=== PATIENT | male | born 1955 | race Caucasian/White ===

== ENCOUNTER 2023-03-06 16:51 | Emergency (ER) | payer OTHER, SELFPAY ==
--- NOTE | ~2023-03-06 | XR_ITS ---
EXAMINATION: XR chest 2V DATE: 03/06/2023 17:20 INDICATION: Dyspnea when trying to speak. TECHNIQUE: PA and lateral views of the chest were obtained. COMPARISON: None FINDINGS: The lungs are clear with no focal airspace opacities, pulmonary edema, pleural effusion or pneumothor ax. The cardiomediastinal silhouette is normal. Multiple compression fractures in the mid to lower th oracic and upper lumbar spine. IMPRESSION: 1. No acute cardiopulmonary disease. Reviewed, dictated and finalized at location A.
[2023-03-06 16:58] VITALS: BP 166/100; PULSE 64; RESP 20; TEMP 36.8; O2SAT 100
--- NOTE | 2023-03-06 17:11 | ECG_ITS ---
Measurements Intervals [place] Rate: 52 P: -19 PA: 174 QRS: -30 QRSD: 108 T: -7 QT: 460 QTc: 431 Interpretive Statements SINUS BRADYCARDIA POSSIBLE LEFT ATRIAL ENLARGEMENT [-0.1mV P WAVE IN V1/V2] BORDERLINE LEFT AXIS DEVIATION [QRS AXIS < -20] POSSIBLE LEFT VENTRICULAR HYPERTROPHY [VOLTAGE CRITERIA PLUS LAE OR QRS WIDENING] NO PREVIOUS ECG AVAILABLE FOR COMPARISON Electronically Signed On 03-06-2023 19:25:14 CDT by Viola Jessica M.D.
[2023-03-06 18:15] LABS: Basophils Absolute Auto 0.1 K/mm3 (0.0-0.1); Basophils Percent Auto 0.9 % (0.2-1.2); Eosinophils Absolute Auto 0.2 K/mm3 (0-0.3); Eosinophils Percent Auto 1.6 % (0-4.4); Hematocrit 48.6 % (42.0-52.0); Hemoglobin 15.8 g/dL (14.0-18.0); Immature Granulocyte Absolute 0.03 K/mm3 (0.00-0.031); Immature Granulocyte Percent A 0.3 % (0-0.5); Lymphocytes Absolute Auto 2.56 K/mm3 (0.9-3.2); Lymphocytes Percent Auto 26.1 % (18.3-44.2); Mean Corpuscular HGB Conc 32.5 g/dl (32-36); Mean Corpuscular Hemoglobin 29.6 pg (26-34); Mean Corpuscular Volume 91.2 fl (80-100); Mean Platelet Volume 8.9 fl (7.4-10.4); Monocytes Absolute Auto 0.6 K/mm3 (0.1-0.6); Monocytes Percent Auto 6.2 % (2.6-8.5); Neutrophils Absolute Auto 6.3 K/mm3 (1.3-6.7); Neutrophils Percent Auto 64.9 % (45.5-73.1); Platelet Count Result 389 k/mm3 (150-375); Red Blood Count 5.33 M/mm3 (4.6-6.20); Red Cell Distribution Width 13.2 % (11.5-14.5); White Blood Count 9.8 K/mm3 (4.5-10.0)
[2023-03-06 18:37] LABS: Alanine Aminotransferase 18 U/L (6-50); Albumin Level 4.3 g/dL (3.5-5.1); Alkaline Phosphatase 112 U/L (38-126); Anion Gap 4 mmol/L (8-16); Aspartate Amino Transferase 25 U/L (17-59); Bilirubin,Total 0.4 mg/dL (0.2-1.3); Blood Urea Nitrogen 10 mg/dL (9-20); Carbon Dioxide 32 mmol/L (22-30); Chloride 101 mmol/L (98-107); Estimated CRCL calculation 61 ml/min; Estimated Glomerular Filt Rate > 60; Glucose 98 mg/dL (65-110); Potassium 4.1 mmol/L (3.4-5.0); Sodium 137 mmol/L (137-145)
[2023-03-06 19:00] VITALS: BP 182/108; PULSE 54; RESP 48; O2SAT 100
[2023-03-06] MEDS: KETOROLAC 15 MG/ML VIAL (*BKC) IV PUSH (19:42)
[2023-03-06] MEDS: SODIUM CHLORIDE 0.9% IV 1,000 ML 999 ML IV CONT (19:42)
[2023-03-06] MEDS: PENICILLIN V POTASSIUM 250 MG TABLET 500 MG PO (19:43)
[2023-03-06] MEDS: LEVALBUTEROL NEB 1.25 MG/3 ML INHALATION (19:45)
[2023-03-06] MEDS: IPRATROPIUM BR 0.02% INH SOLN 0.5 MG/2.5 ML VIAL INHALATION (19:45)
[2023-03-06 19:46] VITALS: PULSE 52; RESP 20
--- NOTE | 2023-03-06 19:46 | ED.SOB ---
HPI - SOB/Dyspnea General Chief Complaint: Shortness of Breath/Dyspnea Stated Complaint: SOB/vomiting/back pain/toothache/headache/vision Time Seen by Provider: 03/06/23 17:24 History of Present Illness HPI Narrative: Patient is a 67-year-old male presenting with multiple complaints. Patient states that the main reason he is here today is because he is concerned about a dental infection. States that he has many bad teeth and he has not seen a dentist in many years. States that he is concerned that one of the teeth on the right side is infected. States that he has been having some right ear pain that he thinks is related to this. He states that he has had intermittent headaches for about 5 years. States that he has also had a hoarse voice for about 5 years. States that he has never had these things worked up. They have not changed recently but patient states that he grew tired of the headaches. States that the only medication he ever uses is [place]. He has not tried Tylenol or ibuprofen. He denies numbness or weakness or speech changes. He denies chest pain. He states that sometimes he does feel short of breath but states that he has been smoking heavily since he was 12. Patient states that sometimes he has a cough. He also complains of intermittent abdominal pain. He denies fevers, lightheadedness, palpitations, vomiting, diarrhea, dysuria, leg swelling. Related Data Allergies Allergy/AdvReac Type Severity Reaction Status Date / Time No Known Allergies Allergy Verified 03/06/23 16:52 Review of Systems Review of Systems: All systems reviewed & are unremarkable except as noted in HPI and below Exam Narrative: GENERAL: Frail-appearing elderly male sitting in bed in no acute distress HEAD: Normocephalic, atraumatic. EYES: PERRLA and EOMI. ENT: Nares clear, no rhinorrhea or epistaxis. Mucous membranes moist. Very poor dentition throughout with multiple broken teeth in various stages of decay, some tenderness with palpation along the right lower gumline, no fluctuance or obvious abscess; bilateral tympanic membranes appear normal NECK: Supple. CHEST: Diminished breath sounds bilaterally with scattered wheezing, no respiratory distress HEART: Regular rate and rhythm. No murmur heard. Normal peripheral pulses. ABDOMEN: Soft, nontender, nondistended EXTREMITIES: Normal range of motion. No edema. SKIN: Warm, dry, no rash. NEURO: No focal deficits. Alert and oriented x3. PSYCH: Normal mood and affect. Course Vital Signs Vital signs: Vital Signs Temperature 98.2 F 03/06/23 16:58 Pulse Rate 64 03/06/23 16:58 Respiratory Rate 20 03/06/23 16:58 Blood Pressure 166/100 H 03/06/23 16:58 Pulse Oximetry 100 03/06/23 16:58 Oxygen Delivery Room Air 03/06/23 16:58 Temperature 98.2 F 03/06/23 16:58 Pulse Rate 54 L 03/06/23 20:59 Respiratory Rate 15 03/06/23 20:00 Blood Pressure 160/99 H 03/06/23 20:00 Pulse Oximetry 100 03/06/23 20:00 Oxygen Delivery Room Air 03/06/23 18:09 MDM - SOB/Dyspnea MDM Narrative Medical decision making narrative: Patient is a 67-year-old male presenting with multiple complaints. Patient is hypertensive, otherwise vitals are within normal limits. He is saturating well on room air. Exam is remarkable for the above. Most of the patient's complaints are chronic in nature. He states that he has suffered from intermittent headaches, back pain, abdominal pain for many years. States that he has never seen a PCP for any of this. He states that his biggest concern today is possibility of a dental infection that is causing a right earache. States that he is also not seen a dentist in many years. Blood work is unremarkable. Patient received fluids, IV Tylenol and Toradol and states that his headache is completely resolved. He is eating and states that he feels well enough to go home. Will prescribe penicillin for the dental infection. Advised that he follow-up cl
[2023-03-06 20:00] VITALS: BP 160/99; PULSE 57; RESP 15; O2SAT 100
[2023-03-06 20:59] VITALS: PULSE 54
== END 2023-03-06 21:11 | disposition home or self-care (01) ==
PROVIDERS: Emergency Medicine; Emergency Provider Emergency Medicine
DX: R51.9 Headache, unspecified (principal); K04.7 Periapical abscess without sinus
CPT/HCPCS: 36415; 71046; 80053; 85025; 93005; 94640; 96361; 96374; 96375; 99284; A9270; J0131; J1885; J7030

== ENCOUNTER 2024-07-20 21:03 | Inpatient (IN) | payer OTHER, SELFPAY ==
--- NOTE | ~2024-07-20 | CT_ITS ---
EXAMINATION: CT cervical spine wo con DATE: 07/20/2024 22:13 INDICATION: Head injury. TECHNIQUE: Computed tomography (CT) of the cervical spine was performed without intravenous contrast. Automated exposure control and iterative reconstruction technique were employed. The dose-length pro duct was 140.30 mGy-cm. COMPARISON: None FINDINGS: There is mild emphysema. There is 5 degrees levocurvature of cervical spine. There is 2 mm anterolisthesis of C7 on T1. Vertebral body heights are normal. There is moderately decreased disc he ight at C3-C4 and severely decreased disc height at C5-C6 and C6-C7. The following disc levels are sp ecifically discussed: C2-C3: There is mild bilateral uncovertebral joint osteoarthritis. There is moderate bilateral facet joint osteoarthritis. There is no neural foraminal stenosis. There is no central canal stenosis. C3-C4: There is severe bilateral uncovertebral joint osteoarthritis. There is mild right and severe l eft facet joint osteoarthritis. There is mild bilateral neural foraminal stenosis. There is mild cent ral canal stenosis. C4-C5: There is no uncovertebral joint osteoarthritis. There is severe left facet joint osteoarthriti s. There is mild left neural foraminal stenosis. There is no central canal stenosis. C5-C6: There is severe bilateral uncovertebral joint osteoarthritis. There is mild right and severe l eft facet joint osteoarthritis. There is mild bilateral neural foraminal stenosis. There is mild cent ral canal stenosis. C6-C7: There is severe bilateral uncovertebral joint osteoarthritis. There is severe right and modera te left facet joint osteoarthritis. There is mild bilateral neural foraminal stenosis. There is mild central canal stenosis. C7-T1: There is no uncovertebral joint osteoarthritis. There is severe bilateral facet joint osteoart hritis. There is mild bilateral neural foraminal stenosis. There is no central canal stenosis. IMPRESSION: 1. No fracture. 2. Severe cervical spondylosis. Reviewed, dictated and finalized at location A.
--- NOTE | ~2024-07-20 | XR_ITS ---
EXAMINATION: XR hip RT 2V w AP pelvis DATE: 07/20/2024 22:25 INDICATION: Fall. TECHNIQUE: An anteroposterior view of the pelvis and 2 views of right hip were obtained. COMPARISON: None. FINDINGS: There is lumbar levocurvature and moderate spondylosis. There is an intertrochanteric fract ure of proximal right femur. The distal fracture fragment demonstrates posterior angulation. There is mild osteoarthritis of the hips. IMPRESSION: 1. Intertrochanteric fracture of proximal right femur. 2. Mild osteoarthritis of the hips. Reviewed, dictated and finalized at location A.
--- NOTE | ~2024-07-20 | CT_ITS ---
EXAMINATION: CT soft tissue neck chest w DATE: 07/21/2024 09:16 INDICATION: Hoarseness TECHNIQUE: Computed tomography (CT) of the neck and chest was performed with 75 mL Omnipaque-350 intr avenous contrast. Automated exposure control and iterative reconstruction technique were employed. Th e dose-length product was 448.07 mGy-cm. COMPARISON: None FINDINGS: Neck CT: Orbits are normal. There is a 3.2 x 1.6 x 1.9 cm enhancing extra-axial mass situated along the left s richard of the sella turcica and along the cephalad margin of the left petrous ridge most likely represen ting a meningioma. No evident cortical erosion Mastoid air cells and middle ear cavities are clear. M ild mucosal thickening scattered throughout the paranasal sinuses with mucous retention cyst at the i nferior left maxillary sinus. Submandibular and parotid glands are symmetric. Thyroid gland is unrema rkable. There are scattered normal-sized lymph nodes in the neck, no lymphadenopathy. Airway is unrem arkable. Epiglottis, aryepiglottic folds and vocal cords appear normal and symmetric. No masses ident ified. The vasculature is patent and normal in caliber. Severe lower cervical spondylosis. Chest CT: Mild emphysema. Mild dependent atelectasis in bilateral lower lobes. No suspicious pulmonary nodules, pneumonia, pulmonary edema or pleural effusion. Heart size is normal. No pericardial effusion. Thora cic aorta is normal in caliber with no dissection. No pathologically enlarged thoracic lymphadenopath y. Diffuse hepatic steatosis with 11 mm low-attenuation cyst in the left hepatic lobe. Several scatte red hepatic and splenic calcific lesions consistent with old granulomatous disease. There are multipl e chronic appearing compression fractures in the thoracic and lumbar spine with mild spondylosis. IMPRESSION: 1. 3.2 x 1.6 x 1.9 cm extra-axial mass along the left petrous ridge and left lateral margin of the se lla which is nonspecific, most likely a meningioma although differential would include lymphoma, meta static disease, schwannoma, chordoma or chondrosarcoma. 2. Mild emphysema. Otherwise clear lungs with no suspicious pulmonary nodules or acute cardiopulmonar y disease. Reviewed, dictated and finalized at location A. IMPRESSION: 1. 3.2 x 1.6 x 1.9 cm extra-axial mass along the left petrous ridge and left la teral margin of the sella which is nonspecific, most likely a meningioma althou gh differential would include lymphoma, metastatic disease, schwannoma, chordom a or chondrosarcoma. 2. Mild emphysema. Otherwise clear lungs with no suspicious pulmonary nodules o r acute cardiopulmonary disease.
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
--- NOTE | ~2024-07-20 | CT_ITS ---
EXAMINATION: CT brain wo con DATE: 07/20/2024 22:14 INDICATION: Head injury. TECHNIQUE: Computed tomography (CT) of the head was performed without intravenous contrast. The mA wa s adjusted according to patient size. Iterative reconstruction technique was employed. The dose-lengt h product was 605.33 mGy-cm. COMPARISON: None FINDINGS: There are scattered areas of low attenuation in the cerebral white matter. There is no intr acranial hemorrhage, acute infarction, or abnormal intracranial mass lesion. The ventricles are joshua l in size. There is mucosal thickening in the paranasal sinuses. The orbits are normal. The mastoid a ir cells are normal. IMPRESSION: 1. Moderate nonspecific cerebral white matter disease, which likely represents chronic small vessel i schemic disease. Reviewed, dictated and finalized at location A. IMPRESSION: 1. Moderate nonspecific cerebral white matter disease, which likely represents chronic small vessel ischemic disease.
--- NOTE | ~2024-07-20 | CT_ITS ---
EXAMINATION: CT hip RT wo con DATE: 07/21/2024 00:29 INDICATION: Right hip fracture TECHNIQUE: Computed tomography (CT) of the right hip was performed without intravenous contrast. The dose-length product was 123.77 mGy-cm. Automated exposure control and iterative reconstruction techni que were employed. COMPARISON: X-ray dated 07/20/2024 FINDINGS: There is a displaced right femoral intertrochanteric fracture. Mild osteoarthritis of the r ight hip. No significant soft tissue abnormality. IMPRESSION: 1. Nondisplaced right femoral intertrochanteric fracture which extends to the base of the femoral nec k. Reviewed, dictated and finalized at location B. IMPRESSION: 1. Nondisplaced right femoral intertrochanteric fracture which extends to the b ase of the femoral neck.
--- NOTE | ~2024-07-20 | XR_ITS ---
EXAMINATION: XR chest 1V DATE: 07/20/2024 22:25 INDICATION: Cough. TECHNIQUE: A single frontal view of the chest was obtained on 2 radiographs. COMPARISON: Chest 2 views 03/06/2023 FINDINGS: There are lucencies and interstitial opacities in the lungs, consistent with emphysema. No pleural effusion or pneumothorax. The heart size is normal. IMPRESSION: 1. Emphysema. Reviewed, dictated and finalized at location A. IMPRESSION: 1. Emphysema.
[2024-07-20 21:02] VITALS: BP 117/90; PULSE 94; RESP 16; TEMP 36.6; O2SAT 97
[2024-07-20 21:12] VITALS: BP 117/90; PULSE 98; RESP 14
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
[2024-07-20 22:25] VITALS: O2SAT 100
--- NOTE | 2024-07-20 22:35 | ECG_ITS ---
Test Date: 2024-07-20 22:40:22 Measurements Intervals [place] Rate: 61 P: 78 MA: 180 QRS: 91 QRSD: 110 T: 34 QT: 454 QTc: 460 Interpretive Statements SINUS RHYTHM BORDERLINE RIGHT AXIS DEVIATION [QRS AXIS > 90] NONSPECIFIC T-WAVE ABNORMALITY No previous ECG available for comparison Electronically Signed On 07-21-2024 14:42:35 CDT by Mikey Zelaya M.D.
[2024-07-20] MEDS: ONDANSETRON INJ 4 MG/2 ML VIAL IV PUSH (22:41)
[2024-07-20] MEDS: MORPHINE SULFATE (*CRX) 4 MG/ML INJ IV PUSH (22:43)
[2024-07-20 22:54] LABS: Basophils Absolute Auto 0.1 K/mm3 (0.0-0.1); Basophils Percent Auto 0.5 % (0.2-1.2); Eosinophils Percent Auto 0.4 % (0-4.4); Hemoglobin 12.4 g/dL (14.0-18.0); Immature Granulocyte Absolute 0.03 K/mm3 (0.00-0.031); Immature Granulocyte Percent A 0.3 % (0-0.5); Lymphocytes Absolute Auto 1.25 K/mm3 (0.9-3.2); Lymphocytes Percent Auto 11.9 % (18.3-44.2); Mean Corpuscular HGB Conc 33.5 g/dl (32-36); Mean Corpuscular Hemoglobin 30.6 pg (26-34); Mean Corpuscular Volume 91.4 fl (80-100); Mean Platelet Volume 9.2 fl (7.4-10.4); Monocytes Absolute Auto 0.7 K/mm3 (0.1-0.6); Monocytes Percent Auto 6.7 % (2.6-8.5); Neutrophils Absolute Auto 8.5 K/mm3 (1.3-6.7); Neutrophils Percent Auto 80.2 % (45.5-73.1); Platelet Count Result 303 k/mm3 (150-375); Red Blood Count 4.05 M/mm3 (4.6-6.20); Red Cell Distribution Width 13.2 % (11.5-14.5); White Blood Count 10.5 K/mm3 (4.5-10.0)
[2024-07-20 23:07] LABS: Alanine Aminotransferase 15 U/L (6-50); Albumin Level 3.7 g/dL (3.5-5.1); Alkaline Phosphatase 89 U/L (38-126); Anion Gap 12 mmol/L (4-12); Aspartate Amino Transferase 30 U/L (17-59); Bilirubin,Total 0.3 mg/dL (0.2-1.3); Blood Urea Nitrogen 13 mg/dL (9-20); Calcium 8.6 mg/dL (8.4-10.2); Carbon Dioxide 18 mmol/L (22-30); Chloride 107 mmol/L (98-107); Estimated CRCL calculation 52 ml/min; Estimated Glomerular Filt Rate > 60; Glucose 76 mg/dL (65-110); Potassium 3.4 mmol/L (3.4-5.0); Sodium 137 mmol/L (137-145)
[2024-07-20 23:08] LABS: Ethanol 139 mg/dL (<10)
[2024-07-20] MEDS: TETANUS,DIPHTHERIA,AC PERTUSSIS ADULT (0.5 ML) BOOSTRIX IM (23:56)
[2024-07-21] VITALS (7 sets, daily range): BP systolic 129–160; BP diastolic 67–96; PULSE 53–88; RESP 15–16; TEMP 36.7–37.1; O2SAT 91–98
--- NOTE | 2024-07-21 | ECHO_ITS ---
Patient Info Name: Rupert Lemos Age: 68 years : 1955 Gender: Male Ht: 63 in Wt: 118 lbs BSA: 1.54 m2 HR: 53 bpm BP: 153 / 96 mmHg Heart Rhythm: Sinus Rhythm Technical Quality: Good Exam Date: 07/21/2024 8:10 AM Exam Location: Echo Lab Patient Status: Inpatient Admit Date: 07/21/2024 Staff Ordering Physician: Stephanie Sarmiento Clerk Cashier: Damian Cortes RDCS Attending Provider: Holger Welch MD Referring Physician: Torsten SCHWARTZ; Exam Type: CA echo doppler color flow Study Info Indications - pre-op clearance Complete two-dimensional, color flow and Doppler transthoracic echocardiogram is performed. Summary 1. Complete two-dimensional, color flow and Doppler transthoracic echocardiogram is performed. 2. Left ventricular chamber dimension is normal. 3. Left ventricular systolic function is normal, estimated at 60-65%. 4. Right ventricular chamber dimension is normal. 5. Right ventricular systolic function is normal. 6. Moderate pulmonary hypertension, estimated pulmonary arterial systolic pressure is 55 mmHg. Left Ventricle Left ventricular chamber dimension is normal. Left ventricular systolic function is normal, estimated at 60-65%. There is no increased left ventricular wall thickness. Left ventricular septal wall motion is normal. The left ventricular diastolic function is normal. Right Ventricle Right ventricular chamber dimension is normal. Right ventricular systolic function is normal. Left Atria Left atrial chamber dimension is mildly enlarged. Right Atria Right atrial chamber dimension is normal. Aortic Valve The aortic valve is trileaflet. There is no aortic valve sclerosis. There is no aortic valve stenosis. There is no aortic valve regurgitation. Pulmonic Valve The pulmonic valve is not well visualized. Mitral Valve The mitral valve has normal leaflets. There is no mitral valve stenosis. There is no mitral valve regurgitation. Tricuspid Valve The tricuspid valve leaflets are normal. There is no significant tricuspid valve stenosis. There is trace tricuspid valve regurgitation. Moderate pulmonary hypertension, estimated pulmonary arterial systolic pressure is 55 mmHg. Pericardium/Pleural The pericardium appears normal. There is no pericardial effusion. Inferior Vena Cava Dilated inferior vena cava with >50% collapse upon inspiration consistent with normal right atrial pressure, 10 mmHg. Aorta The aortic root size at the sinus of Valsalva is normal. The prox ascending aorta size is normal. Left Ventricular Outflow Tract Name Value Normal LVOT 2D LVOT Diameter 1.8 cm LVOT Doppler LVOT Peak Gradient 5 mmHg LVOT Mean Gradient 3 mmHg LVOT VTI 26 cm LVOT VTI/AV VTI Ratio 0.9 LVOT Stroke Volume 68 ml LVOT CO 4.1 l/min LVOT CI 2.7 l/min/m2 Pulmonic Valve Name Value Normal
[2024-07-21] MEDS: MORPHINE SULFATE (*CRX) 4 MG/ML INJ IV PUSH (00:02)
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
--- NOTE | 2024-07-21 04:05 | ADMGEN ---
This patient, Rupert Lemos, was admitted to Medical Room 252-01. Patient/family oriented to hospital policies and general routines including ID bracelet, bed and alarms, visiting hours, pain management, procedures, bathroom and other care routines, personal items, smoking policy, room service/diet, and visiting hours. Information on how to activate the Rapid Response Team has been discussed. Patient/Family are encouraged to report perceived risks to care and to ask questions if they do not understand what they are told or what they should do.
[2024-07-21] MEDS: SODIUM CHLORIDE 0.9% IV 1,000 ML 100 ML IV CONT (04:07)
[2024-07-21] MEDS: chlordiazePOXIDE (*CRX) 25 MG CAPSULE PO ×3 (05:59→18:05)
[2024-07-21 07:25] LABS: Glucose Point of Care 67 mg/dl (65-105)
[2024-07-21] MEDS: NICOTINE (*PBKC) 21 MG PATCH 1 PATCH TRANSDERM (09:33)
[2024-07-21 12:00] LABS: Glucose Point of Care 54 mg/dl (65-105)
[2024-07-21 12:25] LABS: Glucose Point of Care 84 mg/dl (65-105)
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
[2024-07-21 18:31] LABS: Glucose Point of Care 121 mg/dl (65-105)
== END 2024-07-21 19:00 | disposition short-term general hospital (02) | DRG 536 ==
LOC: ANHED 07-21 03:34 → ANH2MED 07-21 03:35
PROVIDERS: Admitting Provider Internal Medicine; Emergency Provider Emergency Medicine; Visit Provider Internal Medicine
DX: S72.141A Displaced intertrochanteric fracture of right femur, initial encounter for closed fracture (principal); S09.90XA Unspecified injury of head, initial encounter; R49.0 Dysphonia; J43.9 Emphysema, unspecified; M16.0 Bilateral primary osteoarthritis of hip; M47.812 Spondylosis without myelopathy or radiculopathy, cervical region; F17.210 Nicotine dependence, cigarettes, uncomplicated; F10.129 Alcohol abuse with intoxication, unspecified; V19.9XXA Pedal cyclist (driver) (passenger) injured in unspecified traffic accident, initial encounter; Z85.51 Personal history of malignant neoplasm of bladder
CPT/HCPCS: 36415; 70450; 70491; 71045; 71260; 72125; 73070; 73090; 73502; 73700; 80053; 80307; 82948; 85025; 86850; 86900; 86901; 90471; 90715; 93005; 93306; 96374; 96376; 99285; A9270; J2270; J2405; J3411; J3475; J7030; Q9967

== ENCOUNTER 2024-08-25 16:21 | Emergency (ER) | payer OTHER, SELFPAY ==
[2024-08-25 16:27] VITALS: BP 157/98; PULSE 83; RESP 16; TEMP 37.2; O2SAT 98
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
== END 2024-08-25 17:01 | disposition home or self-care (01) ==
PROVIDERS: Emergency Provider Physician Assistant
DX: Z48.02 Encounter for removal of sutures (principal); S72.141D Displaced intertrochanteric fracture of right femur, subsequent encounter for closed fracture with routine healing; V18.4XXD Pedal cycle driver injured in noncollision transport accident in traffic accident, subsequent encounter; M16.11 Unilateral primary osteoarthritis, right hip; F17.210 Nicotine dependence, cigarettes, uncomplicated; Z85.51 Personal history of malignant neoplasm of bladder
CPT/HCPCS: 15853; 99281

== ENCOUNTER 2024-11-03 21:24 | Observation (INO) | payer OTHER, SELFPAY ==
--- NOTE | ~2024-11-03 | XR_ITS ---
EXAMINATION: XR hip BI wo pelvis DATE: 11/05/2024 15:01 INDICATION: Fall TECHNIQUE: Anteroposterior view of the pelvis and anteroposterior and frog-leg lateral views of the l eft hip and anteroposterior and frog-leg lateral views of the right hip were obtained. COMPARISON: None. FINDINGS: Antegrade intramedullary yeimi with femoral neck dynamic compression screw and distal interlocking scre w fixation of the proximal right femur. No acute fracture. Bilateral hip joint spaces appear relative ly preserved. 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 A few phleboliths in the pelvis and right hemiscrotum. IMPRESSION: 1. No acute osseous abnormality. Reviewed, dictated and finalized at location A. IFIED PHYSICIAN'S ASSISTANT
--- NOTE | ~2024-11-03 | CT_ITS ---
Clinical Indication: Chest and abdominal pain CT Scan of the Chest, Abdomen, and Pelvis with Contrast: Technique: Contiguous sections were acquired throughout the chest, abdomen, and pelvis after intraven ous administration of 100 cc of Omnipaque 350. Dose reduction technique was used on this scan by aashish ervining automated exposure control and iterative reconstruction technique. The dose-length product (DL P) was 293.25 mGy-cm. Comparison: 07/21/2024 Findings: There is no evidence of any significant mediastinal, hilar or axillary lymphadenopathy. The mediastin al soft tissues appear normal. No aortic aneurysm or dissection. No pulmonary embolus seen. There is no evidence of pleural or pericardial effusion. The lungs are clear. No pulmonary nodules or infiltrates are noted. Mild upper lobe emphysema present . The liver, spleen, pancreas, gallbladder, adrenals and kidneys are within normal limits. No evidence of aortic aneurysm or dissection. There are minimal atherosclerotic calcifications of the aorta. No lymphadenopathy. No bowel obstruction or bowel wall thickening. There is no evidence to suggest acute appendicitis. Urinary bladder is unremarkable. No pelvic mass evident. Trace pelvic ascites present, nonspecific. There is moderate to severe compression fracture of T7. There are compression fractures of L1 and L2. There are superimposed Schmorl's nodes at L2 and L3 at the superior endplates. Impression: No aortic aneurysm or dissection. Trace pelvic ascites, nonspecific. Mild upper lobe emphysema. Compression fractures of T7, L1, L2, stable since prior exam. Reviewed, dictated and finalized at [facility]. ESSOR OF RHETORIC Impression: No aortic aneurysm or dissection. Trace pelvic ascites, nonspecific. Mild upper lobe emphysema. Compression fractures of T7, L1, L2, stable since prior exam.
[2024-11-03 21:27] VITALS: BP 188/90; PULSE 57; RESP 19; TEMP 36.6; O2SAT 98
[2024-11-03 21:49] LABS: Basophils Absolute Auto 0.1 K/mm3 (0.0-0.1); Basophils Percent Auto 0.4 % (0.2-1.2); Eosinophils Absolute Auto 0.2 K/mm3 (0-0.3); Eosinophils Percent Auto 1.1 % (0-4.4); Hematocrit 42.3 % (42.0-52.0); Hemoglobin 13.9 g/dL (14.0-18.0); Immature Granulocyte Absolute 0.07 K/mm3 (0.00-0.031); Immature Granulocyte Percent A 0.5 % (0-0.5); Lymphocytes Absolute Auto 3.16 K/mm3 (0.9-3.2); Lymphocytes Percent Auto 22.3 % (18.3-44.2); Mean Corpuscular HGB Conc 32.9 g/dl (32-36); Mean Corpuscular Hemoglobin 30.2 pg (26-34); Mean Corpuscular Volume 91.8 fl (80-100); Mean Platelet Volume 9.3 fl (7.4-10.4); Monocytes Absolute Auto 0.7 K/mm3 (0.1-0.6); Monocytes Percent Auto 5.2 % (2.6-8.5); Neutrophils Percent Auto 70.5 % (45.5-73.1); Platelet Count Result 345 k/mm3 (150-375); Red Blood Count 4.61 M/mm3 (4.6-6.20); Red Cell Distribution Width 14.4 % (11.5-14.5); White Blood Count 14.2 K/mm3 (4.5-10.0)
[2024-11-03 21:59] LABS: Lactic Acid Reflex 1.6 mmol/L (0.7-2.0)
[2024-11-03 22:00] LABS: Alanine Aminotransferase 12 U/L (6-50); Alkaline Phosphatase 116 U/L (38-126); Anion Gap 4 mmol/L (4-12); Aspartate Amino Transferase 20 U/L (17-59); Bilirubin,Total 0.4 mg/dL (0.2-1.3); Blood Urea Nitrogen 17 mg/dL (9-20); Calcium 8.8 mg/dL (8.4-10.2); Carbon Dioxide 27 mmol/L (22-30); Chloride 107 mmol/L (98-107); Estimated CRCL calculation 57 ml/min; Estimated Glomerular Filt Rate > 60; Glucose 122 mg/dL (65-110); Lipase 49 U/L (23-300); Potassium 3.6 mmol/L (3.4-5.0); Sodium 138 mmol/L (137-145)
[2024-11-03 22:01] VITALS: BP 183/90; PULSE 71; RESP 19
--- NOTE | 2024-11-03 22:42 | ECG_ITS ---
Test Date: 2024-11-03 22:51:28 Measurements Intervals [place] Rate: 65 P: 80 [place]: 168 QRS: 89 QRSD: 109 T: 42 QT: 431 QTc: 449 Interpretive Statements SINUS RHYTHM MODERATE T-WAVE ABNORMALITY, CONSIDER INFERIOR ISCHEMIA [-0.1+ mV T-WAVE IN II/aVF] Compared to ECG 07/20/2024 22:40:22 Possible ischemia now present T-wave abnormality still present Electronically Signed On 11-04-2024 08:42:07 [employer] by Toña Owen M.D.
[2024-11-03] MEDS: MORPHINE SULFATE (*CRX) 2 MG/ML INJ IV PUSH (23:05)
[2024-11-03] MEDS: ONDANSETRON INJ 4 MG/2 ML VIAL IV PUSH (23:05)
[2024-11-03 23:06] LABS: Troponin I < 0.012 ng/mL (0.000-0.034)
--- NOTE | 2024-11-03 23:09 | ED_ITS ---
HPI - Abdominal Pain General Chief Complaint: Abdominal Pain <SABRINA Rutherford Last Filed: 11/04/24 02:06> Stated Complaint: DIFFUSE ABDOMINAL CRAMPING <SABRINA Rutherford Last Filed: 11/04/24 02:06> Time Seen by Provider: 11/03/24 21:27 <SABRINA Rutherford Last Filed: 11/04/24 02:06> Source: patient <SABRINA Rutherford Last Filed: 11/04/24 02:06> Mode of arrival: EMS <SABRINA Rutherford Last Filed: 11/04/24 02:06> Limitations: no limitations <SABRINA Rutherford Last Filed: 11/04/24 02:06> History of Present Illness HPI narrative: Patient is a 69-year-old female who presents the ED via EMS with report of abdominal pain. Patient reports having diffuse abdominal pain over the past couple of days. Present diffusely throughout his abdomen and radiates up into his right-sided chest towards his shoulder. States pain has been worsening for the past several hours. States he feels as though he cannot move or breathe due to the pain. Has not taken anything for pain. Reports nausea and vomiting today. Denies issues with diarrhea or constipation. Denies fevers. <SABRINA Rutherford Last Filed: 11/04/24 02:06> Related Data Home Medications: Home Medications ?Medication ?Instructions ?Recorded ?Confirmed ?Last Taken ?Type No Home Medications 07/20/24 11/04/24 Unknown History <SABRINA Rutherford Last Filed: 11/04/24 02:06> Allergies/Adverse Reactions: Allergies Allergy/AdvReac Type Severity Reaction Status Date / Time No Known Allergies Allergy Verified 11/04/24 04:19 <SABRINA Rutherford Last Filed: 11/04/24 02:06> Review of Systems 2 Review of Systems: All systems reviewed & are unremarkable except as noted in HPI. <SABRINA Rutherford Last Filed: 11/04/24 02:06> All systems reviewed & are unremarkable except as noted in HPI and below < Ada Weems PA-C - Last Filed: 11/04/24 02:06> [facility] Past Medical History Medical History: Medical History Hoarseness or changing voice Nicotine abuse Bladder cancer <Ada Weems PA-C - Last Filed: 11/04/24 02:06> Surgical History Surgical History: Surgical History History of bladder surgery <Ada Weems PA-C - Last Filed: 11/04/24 02:06> Family History Family History: Family History Father Acute myocardial infarction Chronic obstructive pulmonary disease Congestive heart failure Mother Acute myocardial infarction Asthma Chronic obstructive pulmonary disease Congestive heart failure Sibling History of blood clots Diabetes mellitus Hypertension <Ada Weems PA-C - Last Filed: 11/04/24 02:06> Social History Social History: Social History Smoking packs per day: 2.5 Smoking cigarettes per day: 50.0 Years smoked: 57 Smoking pack-years: 142.50 Smoking status: Former smoker Tobacco type: cigarettes Second hand tobacco smoke exposure: Yes Alcohol intake: current Drinks per week: 6 Alcohol use details: Patient reports drinking 1-2 times monthly and drinking approximately 6 beers at a time. Substance use: never Substance use type: does not use Do You Feel Safe in your Home?: Yes Lack of Transportation: No Lack of Food: Never True Current Housing: I Have Housing Concerned About Future Housing: No Difficulty Paying Gas/Electric Bills: No Difficulty Paying for Meds: No Currently Unemployed: No Education: Decline to Answer Difficulty w/ Childcare or Family Care: No Spiritual care concerns: No <Ada Weems PA-C - Last Filed: 11/04/24 02:06> Exam 2 Narrative: GENERAL: Chronically ill-appearing, thin/borderline cachectic, in moderate acute distress d/t pain, moaning on ED stretcher HEAD: Normocephalic, atraumatic. ETN: Hoarse quality to voice. RESPIRATORY: Airway patent, respirations nonlabored. Clear to auscultation bilaterally, no rales, rhonchi, wheezing. CARDIOVASCULAR: Regular rate and rhythm without murmurs, rubs, or gallops. ABDOMINAL: Abdomen is somewhat distended and diffusely tender throughout lower abdomen. Normoactive BS. MUSCULOSKELETAL: No gross deformities. SKIN: Warm, dry, normal color. NEURO: A&O X3. Speech clear. Cranial nerves II-XII grossly intact. No ataxic movements. PSYCHIATRIC: Appropriate mood and affect. Normal interaction. <Ada Weems PA-C - Last Filed: 11/04/24 02:06> Course SKI TECHNICIAN/PA Physician Supervision Patient's HPI, Exam, and MDM were reviewed and I agreed with the workup and disposition done in the emergency department by the MLP. I was available for consultation, but was not directly involved with patient's care. <Cecilio Dia MD - Last Filed: 11/04/24 08:00> Vital Signs Vital signs: Vital Signs Temperature 36.6 C 11/03/24 21:27 Pulse Rate 57 L 11/03/24 21:27 Respiratory Rate 19 11/03/24 21:27 Blood Pressure 188/90 H 11/03/24 21:27 Pulse Oximetry 98 11/03/24 21:27 Oxygen Delivery Room Air 11/03/24 21:27 Temperature 36.2 C L 11/04/24 03:44 Pulse Rate 66 11/04/24 06:02 Respiratory Rate 16 11/04/24 03:44 Blood Pressure 172/91 H 11/04/24 03:44 Pulse Oximetry 98 11/04/24 03:44 Oxygen Delivery Room Air 11/04/24 03:44 <Ada Weems PA-C - Last Filed: 11/04/24 02:06> Vital Signs Temperature 36.6 C 11/03/24 21:27 Pulse Rate 57 L 11/03/24 21:27 Respiratory Rate 19 11/03/24 21:27 Blood Pressure 188/90 H 11/03/24 21:27 Pulse Oximetry 98 11/03/24 21:27 Oxygen Delivery Room Air 11/03/24 21:27 Temperature 36.2 C L 11/04/24 03:44 Pulse Rate 66 11/04/24 06:02 Respiratory Rate 16 11/04/24 03:44 Blood Pressure 172/91 H 11/04/24 03:44 Pulse Oximetry 98 11/04/24 03:44 Oxygen Delivery Room Air 11/04/24 03:44 <Cecilio Dia MD - Last Filed: 11/04/24 08:00> MDM - Abdominal Pain MDM Narrative Medical decision making narrative: Patient presented to ED with abdominal pain, nausea, vomiting. Patient mildly hypertensive upon arrival. Uncomfortable appearing. Afebrile. CBC with white blood cell count of 14.2. Stable H&H. CMP is unremarkable. Normal LFTs and lipase. Lactic acid within normal range at 1.6. UA with elevated specific gravity, 1+ ketones. Fluids ongoing. EKG with some nonspecific ST changes. Patient is reporting pain is extending up into chest. Baseline troponin is undetectable. CT scan of chest/abdomen/pelvis was obtained to further evaluate for intra-abdominal abnormality and rule out dissection. Showing findings of mild enteritis with small free fluid in the abdomen. No other significant findings. No aneurysm or dissection. No PE. No acute findings in chest. Patient given numerous antiemetics and pain medication, 2L of fluid in the ED. On multiple reevaluations, patient is reporting persistent abdominal pain and cramping. States he has been able to take small sips of water, but develops diffuse cramping throughout his abdomen afterwards. Patient does not feel comfortable going home. States he lives by himself. States he feels like he is dying. Will admit for further eval. Discussed case with Dr. Krueger, hospitalist, accepted patient for admission. Recommended to switch fluids to D5 1/2 NS, give small dose of Ativan and Benadryl. Admit under observation status. Patient in agreement with plan and need for admission. <Ada Weems PA-C - Last Filed: 11/04/24 02:06> Medical Records Attestation: I reviewed the patient's medical records. <Ada Weems PA-C - Last Filed: 11/04/24 02:06> Lab Data Attestation: I reviewed the patient's lab results. <Ada Weems PA-C - Last Filed: 11/04/24 02:06> Result diagrams: 11/03/24 21:42 11/03/24 21:42 <Ada Weems PA-C - Last Filed: 11/04/24 02:06> Labs: Lab Results 11/03/24 11/04/24 Range/Units 21:42 00:23 WBC 14.2 H (4.5-10.0) K/mm3 RBC 4.61 (4.6-6.20) M/mm3 Hgb 13.9 L (14.0-18.0) g/dL Hct 42.3 (42.0-52.0) % MCV 91.8 (80-100) fl MCH 30.2 (26-34) pg MCHC 32.9 (32-36) g/dl RDW 14.4 (11.5-14.5) % Plt Count 345 (150-375) k/mm3 MPV 9.3 (7.4-10.4) fl Immature Gran % (Auto) 0.5 (0-0.5) % Neut % (Auto) 70.5 (45.5-73.1) % Lymph % (Auto) 22.3 (18.3-44.2) % [place] % (Auto) 5.2 (2.6-8.5) % Eos % (Auto) 1.1 (0-4.4) % Baso % (Auto) 0.4 (0.2-1.2) % Lymph # (Auto) 3.16 (0.9-3.2) K/mm3 [place] # (Auto) 0.7 H (0.1-0.6) K/mm3 Eos # (Auto) 0.2 (0-0.3) K/mm3 Baso # (Auto) 0.1 (0.0-0.1) K/mm3 Abs Immat Gran (auto) 0.07 H (0.00-0.031) K/mm3 Absolute Neuts (auto) 10.0 H (1.3-6.7) K/mm3 Absolute Nucleated RBC 0.000 (0.0-0.012) K/mm3 Nucleated RBC % 0.0 (0.0-0.2) % Sodium 138 (137-145) mmol/L Potassium 3.6 (3.4-5.0) mmol/L Chloride 107 (98-107) mmol/L Carbon Dioxide 27 (22-30) mmol/L Anion Gap 4 (4-12) mmol/L BUN 17 (9-20) mg/dL Creatinine 0.80 (0.7-1.3) mg/dL Estim Creat Clear Calc 57 ml/min Estimated GFR > 60 (59 - ) Glucose 122 H (65-110) mg/dL Lactic Acid 1.6 (0.7-2.0) mmol/L Calcium 8.8 (8.4-10.2) mg/dL Total Bilirubin 0.4 (0.2-1.3) mg/dL AST 20 (17-59) U/L ALT 12 (6-50) U/L Alkaline Phosphatase 116 (38-126) U/L Troponin I < 0.012 (0.000-0.034) ng/mL Total Protein 7.0 (6.3-8.2) g/dL Albumin 4.0 (3.5-5.1) g/dL Lipase 49 (23-300) U/L Urine Color Yellow (Yellow) Urine Appearance Clear (Clear) Urine pH 5.5 (5.0-9.0) Ur Specific [place] > 1.045 H (1.001-1.035) Urine Protein Trace (Negative) mg/dL Urine Glucose (UA) Trace H (Negative) mg/dL Urine Ketones 1+ H (Negative) mg/dL Ur Blood (Man) Negative (Negative) Urine Nitrate Negative (Negative) Urine Bilirubin Negative (Negative) Urine Urobilinogen 1.0 (<2.0) mg/dL Add Ur Microanalysis Reviewed Leukocyte Esterase Rfl Negative (Negative) MARCO/UL Urine RBC 0-2 (0-2) /hpf Urine WBC 0-5 (0-3) /hpf Ur Squamous Epith Cells None seen (Few) /hpf Urine Bacteria None seen /hpf Urine Casts 0-2 Urine Mucus Present /lpf <Ada Weems PA-C - Last Filed: 11/04/24 02:06> Lab Results 11/03/24 11/04/24 Range/Units 21:42 00:23 WBC 14.2 H (4.5-10.0) K/mm3 RBC 4.61 (4.6-6.20) M/mm3 Hgb 13.9 L (14.0-18.0) g/dL Hct 42.3 (42.0-52.0) % MCV 91.8 (80-100) fl MCH 30.2 (26-34) pg MCHC 32.9 (32-36) g/dl RDW 14.4 (11.5-14.5) % Plt Count 345 (150-375) k/mm3 MPV 9.3 (7.4-10.4) fl Immature Gran % (Auto) 0.5 (0-0.5) % Neut % (Auto) 70.5 (45.5-73.1) % Lymph % (Auto) 22.3 (18.3-44.2) % [place] % (Auto) 5.2 (2.6-8.5) % Eos % (Auto) 1.1 (0-4.4) % Baso % (Auto) 0.4 (0.2-1.2) % Lymph # (Auto) 3.16 (0.9-3.2) K/mm3 [place] # (Auto) 0.7 H (0.1-0.6) K/mm3 Eos # (Auto) 0.2 (0-0.3) K/mm3 Baso # (Auto) 0.1 (0.0-0.1) K/mm3 Abs Immat Gran (auto) 0.07 H (0.00-0.031) K/mm3 Absolute Neuts (auto) 10.0 H (1.3-6.7) K/mm3 Absolute Nucleated RBC 0.000 (0.0-0.012) K/mm3 Nucleated RBC % 0.0 (0.0-0.2) % Sodium 138 (137-145) mmol/L Potassium 3.6 (3.4-5.0) mmol/L Chloride 107 (98-107) mmol/L Carbon Dioxide 27 (22-30) mmol/L Anion Gap 4 (4-12) mmol/L BUN 17 (9-20) mg/dL Creatinine 0.80 (0.7-1.3) mg/dL Estim Creat Clear Calc 57 ml/min Estimated GFR > 60 (59 - ) Glucose 122 H (65-110) mg/dL Lactic Acid 1.6 (0.7-2.0) mmol/L Calcium 8.8 (8.4-10.2) mg/dL Total Bilirubin 0.4 (0.2-1.3) mg/dL AST 20 (17-59) U/L ALT 12 (6-50) U/L Alkaline Phosphatase 116 (38-126) U/L Troponin I < 0.012 (0.000-0.034) ng/mL Total Protein 7.0 (6.3-8.2) g/dL Albumin 4.0 (3.5-5.1) g/dL Lipase 49 (23-300) U/L Urine Color Yellow (Yellow) Urine Appearance Clear (Clear) Urine pH 5.5 (5.0-9.0) Ur Specific [place] > 1.045 H (1.001-1.035) Urine Protein Trace (Negative) mg/dL Urine Glucose (UA) Trace H (Negative) mg/dL Urine Ketones 1+ H (Negative) mg/dL Ur Blood (Man) Negative (Negative) Urine Nitrate Negative (Negative) Urine Bilirubin Negative (Negative) Urine Urobilinogen 1.0 (<2.0) mg/dL Add Ur Microanalysis Reviewed Leukocyte Esterase Rfl Negative (Negative) MARCO/UL Urine RBC 0-2 (0-2) /hpf Urine WBC 0-5 (0-3) /hpf Ur Squamous Epith Cells None seen (Few) /hpf Urine Bacteria None seen /hpf Urine Casts 0-2 Urine Mucus Present /lpf <Cecilio Dia MD - Last Filed: 11/04/24 08:00> Imaging Data Attestation: I personally reviewed and interpreted this imaging study as follows: < Ada Weems PA-C - Last Filed: 11/04/24 02:06> Radiologist's impression: ITS Impressions Chest/Abdomen/Pelvis CTA 11/04/24 06:12 Impression: No aortic aneurysm or dissection. Trace pelvic ascites, nonspecific. Mild upper lobe emphysema. Compression fractures of T7, L1, L2, stable since prior exam. STAT RAD CTA CHEST: Impression: No acute disease. No thoracic aortic aneurysm or dissection. No pulmonary embolism. Incidental findings: Centrilobular pulmonary edema. Sequela of old granulomatous disease in the chest. Osteopenia. Chronic compression fracture T7. Chronic superior endplate compression deformity T3, T6, and T12. STAT RAD CTA ABD/pelvis: Impression: No aortic aneurysm or dissection. Possible mild enteritis. No bowel obstruction. Small amount of free fluid in the abdomen or pelvis. Incidental findings: Small liver cyst. Small amount of free fluid in the abdomen and pelvis. Some edema in the soft tissues of the bladder wall. Osteopenia. Chronic compression deformities of the superior endplates of T12, L1, L2, and L3. Colonic diverticulosis. There is some mild segmental wall thickening in the small bowel. Calcified granulomas in the liver and spleen. There is some transient hepatic attenuation difference in the liver. <Ada Weems PA-C - Last Filed: 11/04/24 02:06> ITS Impressions Chest/Abdomen/Pelvis CTA 11/04/24 06:12 Impression: No aortic aneurysm or dissection. Trace pelvic ascites, nonspecific. Mild upper lobe emphysema. Compression fractures of T7, L1, L2, stable since prior exam. <Cecilio Dia MD - Last Filed: 11/04/24 08:00> ECG Data EKG #1: Attestation: I personally reviewed and interpreted this ECG as follows: <Ada Weems PA-C - Last Filed: 11/04/24 02:06> ECG completion date: 11/03/24 <Ada Weems PA-C - Last Filed: 11/04/24 02:06> ECG completion time: 22:51 <Ada Weems PA-C - Last Filed: 11/04/24 02:06> normal rate (65), sinus rhythm, non-specific ST changes and other (baseline artifact in several leads) <Ada Weems PA-C - Last Filed: 11/04/24 02:06> Discharge Plan Discharge Clinical Impression: Gastroenteritis, Dehydration Abdominal pain Qualifiers: Abdominal location: unspecified location Qualified Code(s): R10.9 - Unspecified abdominal pain <Ada Weems PA-C - Last Filed: 11/04/24 02:06> Patient Disposition: Still a Patient <Ada Weems PA-C - Last Filed: 11/04/24 02:06> Condition: Stable <Ada Weems PA-C - Last Filed: 11/04/24 02:06>
[2024-11-04] VITALS (11 sets, daily range): BP systolic 144–197; BP diastolic 59–96; PULSE 65–77; RESP 16–24; TEMP 36.2–37; O2SAT 95–99; BMI 15.6
[2024-11-04] MEDS: DICYCLOMINE HCL 10 MG CAPSULE 20 MG PO (00:12)
[2024-11-04 00:46] LABS: Add Urine Microscopic? YES; Appearance Urine Clear (Clear); Bacteria Urine None Seen /hpf; Bilirubin Urine Negative (Negative); Blood Urine Negative (Negative); Color Urine Yellow (Yellow); Glucose Urine UA Trace mg/dL (Negative); Ketones Urine 1+ mg/dL (Negative); Leukocyte Esterase Ur Negative LEU/UL (Negative); Mucus Urine Present /lpf; Need Manual Microscopic Reviewed; Nitrate Urine Negative (Negative); Non Pathogenic Casts 0-2; Protein Urine Trace mg/dL (Negative); RBC Urine 0-2 /hpf (0-2); Specific Grav Ur > 1.045 (1.001-1.035); Squamous Epithelial Cell Urine None Seen /hpf (Few); WBC Urine 0-5 /hpf (0-3); pH Urine 5.5 (5.0-9.0)
[2024-11-04] MEDS: ACETAMINOPHEN 500 MG TABLET 1000 MG PO (01:24)
[2024-11-04] MEDS: KETOROLAC 15 MG/ML VIAL (*BKC) IV PUSH (01:24)
[2024-11-04] MEDS: SODIUM CHLORIDE 0.9% IV 1,000 ML 999 ML IV CONT (01:24)
--- NOTE | 2024-11-04 02:01 | P.HP_ITS ---
H&P: HPI History of Present Illness Date/Time: 11/04/24 02:01 Chief Complaint: epigastric pain Narrative: This is a 69-year-old male with past medical history significant for alcohol dependence, tobacco dependence. Patient presents to the emergency room with complaints of abdominal pain which is diffusely localized, patient denies nausea vomiting diarrhea denies hematemesis blood red blood per rectum or melena or coffee-ground emesis. Patient is a poor historian and really cannot contribute move much to his disease process history taking. Preliminary workup in emergency room CT angiogram of chest, abdomen and pelvis was significant for gastroenteritis. Patient was uncomfortable after several treatments in the emergency room. Decision has been made to place the patient observation for further evaluation management and treatment. Clinical Indication: Chest and abdominal pain CT Scan of the Chest, Abdomen, and Pelvis with Contrast: Technique: Contiguous sections were acquired throughout the chest, abdomen, and pelvis after intravenous administration of 100 cc of Omnipaque 350. Dose reduction technique was used on this scan by utilizing automated exposure control and iterative reconstruction technique. The dose-length product (DLP) was 293.25 mGy-cm. Comparison: 07/21/2024 Findings: There is no evidence of any significant mediastinal, hilar or axillary lymphadenopathy. The mediastinal soft tissues appear normal. No aortic aneurysm or dissection. No pulmonary embolus seen. There is no evidence of pleural or pericardial effusion. The lungs are clear. No pulmonary nodules or infiltrates are noted. Mild upper lobe emphysema present. The liver, spleen, pancreas, gallbladder, adrenals and kidneys are within normal limits. No evidence of aortic aneurysm or dissection. There are minimal atherosclerotic calcifications of the aorta. No lymphadenopathy. No bowel obstruction or bowel wall thickening. There is no evidence to suggest acute appendicitis. Urinary bladder is unremarkable. No pelvic mass evident. Trace pelvic ascites present, nonspecific. There is moderate to severe compression fracture of T7. There are compression fractures of L1 and L2. There are superimposed Schmorl's nodes at L2 and L3 at the superior endplates. Impression: No aortic aneurysm or dissection. Trace pelvic ascites, nonspecific. Mild upper lobe emphysema. Compression fractures of T7, L1, L2, stable since prior exam. Review of Systems Review of Systems: epigastric pain PMFSH Past Medical History Medical History Hoarseness or changing voice Nicotine abuse Bladder cancer Surgical History Surgical History History of bladder surgery Family History Family History Father Acute myocardial infarction Chronic obstructive pulmonary disease Congestive heart failure Mother Acute myocardial infarction Asthma Chronic obstructive pulmonary disease Congestive heart failure Sibling History of blood clots Diabetes mellitus Hypertension Social History Social History Smoking packs per day: 2.5 Smoking cigarettes per day: 50.0 Years smoked: 57 Smoking pack-years: 142.50 Smoking status: Former smoker Tobacco type: cigarettes Second hand tobacco smoke exposure: Yes Alcohol intake: current Drinks per week: 6 Alcohol use details: Patient reports drinking 1-2 times monthly and drinking approximately 6 beers at a time. Substance use: never Substance use type: does not use Do You Feel Safe in your Home?: Yes Lack of Transportation: No Lack of Food: Never True Current Housing: I Have Housing Concerned About Future Housing: No Difficulty Paying Gas/Electric Bills: No Difficulty Paying for Meds: No Currently Unemployed: No Education: Decline to Answer Difficulty w/ Childcare or Family Care: No Spiritual care concerns: No Meds Home Medications and Allergies Home Medications ?Medication ?Instructions ?Recorded ?Confirmed ?Type No Home Medications 07/20/24 11/04/24 History Allergies Allergy/AdvReac Type Severity Reaction Status Date / Time No Known Allergies Allergy Verified 11/04/24 04:19 Vital Signs Vital Signs - 24 hr 11/03/24 21:27 11/03/24 22:01 11/04/24 00:01 Temperature 97.8 F Pulse Rate 57 L 71 66 Respiratory Rate 19 19 20 Blood Pressure 188/90 H 183/90 H 173/79 H Pulse Oximetry 98 96 Oxygen Delivery Room Air 11/04/24 00:02 Temperature Pulse Rate 65 Respiratory Rate 21 H Blood Pressure 194/94 H Pulse Oximetry 97 Oxygen Delivery Exam Narrative: laying in a stretcher Const: General: comfortable, no acute distress, well developed, alert, awake, ill appearing chronically, underweight and other ( frail-appearing) Nutritional Appearance: underweight Orientation/consciousness: patient oriented x3 Other: generalize pallor HENMT: Head: normal to inspection, normocephalic and atraumatic Ears: hearing grossly normal bilaterally Face/Nose/Sinus: normal facial exam Face and sinus: normal facial exam Eyes: General: appearance normal, both eyes and all related structures Pupils: Equal, round and reactive pupils present EOM: EOMs intact bilaterally Neck: Neck: full ROM, no lymphadenopathy and no JVD Thyroid: thyroid normal Lymphatic: no lymphadenopathy noted Resp: Effort & Inspection: normal respiratory effort and able to speak in complete sentences Auscultation: clear to auscultation bilaterally Cardio: Jugular venous distension: no JVD Rate: regular rate Rhythm: regular rhythm Heart sounds: S1 normal heart sound present and S2 normal hear t sound present GI: GI Palp: Yes Soft to palpation and Yes No hepatosplenomegaly present : General: Yes deferred Skin: Rashes: no rashes Wounds: no wounds Neuro: General: patient oriented x3 and CN's II-XI intact bilaterally Cranial nerves: Yes CN's II-XII intact bilaterally and Yes Equal, round and reactive pupils present Cognition (Neuro): normal cognition Speech: normal speech Gait exam (Neuro): Normal gait present Motor exam (neuro): 5/5 motor strength present throughout Extrem: General: normal to inspection, full ROM, no joint enlargement and no pedal edema H&P: Results Labs Labs: Short CBC 11/03/24 Range/Units 21:42 WBC 14.2 H (4.5-10.0) K/mm3 Hgb 13.9 L (14.0-18.0) g/dL Hct 42.3 (42.0-52.0) % Plt Count 345 (150-375) k/mm3 [facility] 11/03/24 21:42 Sodium 138 Potassium 3.6 Chloride 107 Carbon Dioxide 27 BUN 17 Creatinine 0.80 Glucose 122 H Calcium 8.8 Cardiac Enzymes 11/03/24 Range/Units 21:42 Troponin I < 0.012 (0.000-0.034) ng/mL Liver Function 11/03/24 Range/Units 21:42 Total Bilirubin 0.4 (0.2-1.3) mg/dL AST 20 (17-59) U/L ALT 12 (6-50) U/L Alkaline Phosphatase 116 (38-126) U/L Albumin 4.0 (3.5-5.1) g/dL Urine 11/04/24 Range/Units 00:23 Urine Color Yellow (Yellow) Urine Appearance Clear (Clear) Urine pH 5.5 (5.0-9.0) Ur Specific [place] > 1.045 H (1.001-1.035) Urine Protein Trace (Negative) mg/dL Urine Glucose (UA) Trace H (Negative) mg/dL Assessment and Plan Assessment and plan (1) Abdominal pain: Qualifiers: Abdominal location: unspecified location Qualified Code(s): R10.9 - Unspecified abdominal pain Code(s): R10.9 - Unspecified abdominal pain Status: Acute Assessment and Plan: CT angiogram of chest abdomen and pelvis is pending official report at this time preliminary report with gastroenteritis place in observation supportive care (2) Dehydration: Code(s): E86.0 - Dehydration Status: Acute Assessment and Plan: patient received 2 L of NS in emergency room currently on D5 half-normal saline (3) Gastroenteritis: Code(s): K52.9 - Noninfective gastroenteritis and colitis, unspecified Status: Acute Assessment and Plan: supportive care (4) Nicotine abuse: Code(s): Z72.0 - Tobacco use Status: Acute Assessment and Plan: nicotine patch as needed (5) EtOH dependence: Code(s): F10.20 - Alcohol dependence, uncomplicated Status: Acute Assessment and Plan: CIWA as needed Hospitalist MIPS Advance Care Plan I have confirmed that the patient's Advanced Care Plan is present, code status is documented, or surrogate decision maker is listed in patient medical record.: Yes Medication Reconciliation I have utilized all available resources to obtain, update and review the patients current medications (includes all prescriptions, OTC, herbals, cannabis, and nutritional supplements).: Yes
[2024-11-04] MEDS: diphenhydrAMINE HCl INJ 50 MG/ML VIAL 25 MG IV PUSH (02:19)
[2024-11-04] MEDS: LORazepam INJ (*CRX) 2 MG/ML VIAL 0.5 MG IV PUSH (02:20)
[2024-11-04] MEDS: FAMOTIDINE 20 MG/2 ML VIAL IV PUSH ×3 (02:20→20:15)
[2024-11-04 03:32] LABS: Influenza A QL RT-PCR Negative (Negative); Influenza B QL RT-PCR Negative (Negative); RSV RNA, RT-PCR Negative (Negative); SARS-CoV-2 RNA PCR Negative (Negative)
[2024-11-04] MEDS: DEXTROSE 5%/0.45% SOD CHL 1,000 ML 100 ML IV CONT (03:38)
--- NOTE | 2024-11-04 03:44 | ADMGEN ---
This patient, Rupert Lemos, was admitted to Medical Room 345-01. Patient/family oriented to hospital policies and general routines including ID bracelet, bed and alarms, visiting hours, pain management, procedures, bathroom and other care routines, personal items, smoking policy, room service/diet, and visiting hours. Information on how to activate the Rapid Response Team has been discussed. Patient/Family are encouraged to report perceived risks to care and to ask questions if they do not understand what they are told or what they should do.
[2024-11-04] MEDS: ACETAMINOPHEN 325 MG TABLET 650 MG PO ×2 (05:40→17:07)
[2024-11-04] MEDS: chlordiazePOXIDE (*CRX) 25 MG CAPSULE 50 MG PO ×3 (07:24→17:08)
[2024-11-04] MEDS: THIAMINE HCL INJ 100 MG, FOLIC ACID INJ 1 MG, MAGNESIUM SULFATE INJ 1 GM, MULTIVITAMINS... 125 MG IV CONT (07:25)
[2024-11-04 08:59] LABS: Hematocrit 48.7 % (42.0-52.0); Hemoglobin 16.1 g/dL (14.0-18.0); Mean Corpuscular HGB Conc 33.1 g/dl (32-36); Mean Corpuscular Hemoglobin 30.3 pg (26-34); Mean Corpuscular Volume 91.7 fl (80-100); Mean Platelet Volume 9.4 fl (7.4-10.4); Platelet Count Result 354 k/mm3 (150-375); Red Blood Count 5.31 M/mm3 (4.6-6.20); Red Cell Distribution Width 14.5 % (11.5-14.5); White Blood Count 3.4 K/mm3 (4.5-10.0)
--- NOTE | 2024-11-04 14:24 | PM.DS ---
DS: Admitting Diagnosis Discharge Date 11/04/24 Patient states he has pain everywhere, arms, abdomen, back, legs. Admitting Diagnosis Abdominal Pain DS: Summary Time Spent with Patient Time attestation: Total time spent providing and/or coordinating discharge services: DS: Data Data Completed and Pending Labs on day of discharge: Labs from last 24 hours 11/04/24 11/04/24 11/04/24 08:54 02:52 00:23 WBC 3.4 L RBC 5.31 Hgb 16.1 Hct 48.7 MCV 91.7 MCH 30.3 MCHC 33.1 RDW 14.5 Plt Count 354 MPV 9.4 Immature Gran % (Auto) Neut % (Auto) Lymph % (Auto) [place] % (Auto) Eos % (Auto) Baso % (Auto) Lymph # (Auto) [place] # (Auto) Eos # (Auto) Baso # (Auto) Abs Immat Gran (auto) Absolute Neuts (auto) Absolute Nucleated RBC Nucleated RBC % Sodium Potassium Chloride Carbon Dioxide Anion Gap BUN Creatinine Estim Creat Clear Calc Estimated GFR Glucose Lactic Acid Calcium Total Bilirubin AST ALT Alkaline Phosphatase Troponin I Total Protein Albumin Lipase Urine Color Yellow Urine Appearance Clear Urine pH 5.5 Ur Specific [place] > 1.045 H Urine Protein Trace Urine Glucose (UA) Trace H Urine Ketones 1+ H Ur Blood (Man) Negative Urine Nitrate Negative Urine Bilirubin Negative Urine Urobilinogen 1.0 Add Ur Microanalysis Reviewed Leukocyte Esterase Rfl Negative Urine RBC 0-2 Urine WBC 0-5 Ur Squamous Epith Cells None seen Urine Bacteria None seen Urine Casts 0-2 Urine Mucus Present Influenza A (RT-PCR) Negative Influenza B (RT-PCR) Negative RSV (RT-PCR) Negative SARS-CoV-2 RNA (RT-PCR) Negative 11/03/24 21:42 WBC 14.2 H RBC 4.61 Hgb 13.9 L Hct 42.3 MCV 91.8 MCH 30.2 MCHC 32.9 RDW 14.4 Plt Count 345 MPV 9.3 Immature Gran % (Auto) 0.5 Neut % (Auto) 70.5 Lymph % (Auto) 22.3 [place] % (Auto) 5.2 Eos % (Auto) 1.1 Baso % (Auto) 0.4 Lymph # (Auto) 3.16 [place] # (Auto) 0.7 H Eos # (Auto) 0.2 Baso # (Auto) 0.1 Abs Immat Gran (auto) 0.07 H Absolute Neuts (auto) 10.0 H Absolute Nucleated RBC 0.000 Nucleated RBC % 0.0 Sodium 138 Potassium 3.6 Chloride 107 Carbon Dioxide 27 Anion Gap 4 BUN 17 Creatinine 0.80 Estim Creat Clear Calc 57 Estimated GFR > 60 Glucose 122 H Lactic Acid 1.6 Calcium 8.8 Total Bilirubin 0.4 AST 20 ALT 12 Alkaline Phosphatase 116 Troponin I < 0.012 Total Protein 7.0 Albumin 4.0 Lipase 49 Urine Color Urine Appearance Urine pH Ur Specific [place] Urine Protein Urine Glucose (UA) Urine Ketones Ur Blood (Man) Urine Nitrate Urine Bilirubin Urine Urobilinogen Add Ur Microanalysis Leukocyte Esterase Rfl Urine RBC Urine WBC Ur Squamous Epith Cells Urine Bacteria Urine Casts Urine Mucus Influenza A (RT-PCR) Influenza B (RT-PCR) RSV (RT-PCR) SARS-CoV-2 RNA (RT-PCR) Discharge Plan Discharge Patient Language: Latvian Discharge Medications: No Action No Home Medications Date of admission: 11/04/24 02:06 Primary Care Provider: PHYSICIAN,[employer]COLL[employer]KER Admitting Provider: Robert Krueger V. Attending physician on admission: Robert Krueger V. Condition: Stable
--- NOTE | 2024-11-04 15:02 | PM.IMPN ---
Progress Note: A&P Assessment and Plan (1) Abdominal pain: Qualifiers: Abdominal location: unspecified location Qualified Code(s): R10.9 - Unspecified abdominal pain Code(s): R10.9 - Unspecified abdominal pain Status: Acute Assessment and Plan: - CT abd/pelvis significant for; Trace pelvic ascites, nonspecific. - We'll consider general surgery recommendations. - No symptoms currently. - Continue supportive care. (2) Dehydration: Code(s): E86.0 - Dehydration Status: Acute Assessment and Plan: - Appears resolved currently. - Tolerating regular diet well. - IVF discontinued. - Encourage with PO intake. (3) Gastroenteritis: Code(s): K52.9 - Noninfective gastroenteritis and colitis, unspecified Status: Acute Assessment and Plan: - Patient denies GI symptoms. - Tolerating regular diet ok. - Monitor for now. (4) Nicotine abuse: Code(s): Z72.0 - Tobacco use Status: Acute Assessment and Plan: nicotine patch as needed (5) EtOH dependence: Code(s): F10.20 - Alcohol dependence, uncomplicated Status: Acute Assessment and Plan: - CIWA protocol in place. - Monitor for withdrawals. Plan Possible discharge tomorrow after confirming living status, pt not clear on where he lives or family around. Time Spent With Patient Time with patient: 15 - 25 minutes Subjective Date/time seen: 11/04/24 10:02 Patient states he has pain everywhere in his body. Interval history: Patient admitted for abdominal pain. Patient with Hx of ETOH abuse and is not on any medications at home. Review of Systems Review of Systems: All systems reviewed & are unremarkable except as noted in HPI and below Exam Narrative: General: Elderly male, appears malnourished. HEENT: Atraumatic, PEERL, EOM, moist mucosa. NECK: Supple. Lungs: Clear bilaterally. Heart: RRR, no murmurs. Abdomen: Soft, non-tender, non-distended, +ve bowels X4 quadrants. Extremities: Acyanotic, no edema. Skin: Warm and dry. Neuro: Well oriented, no formal deficits noted. Psych: Calm and co-operative. Objective Data Vital Signs Vital Signs: Vital Signs - 24 hr 11/03/24 21:27 11/03/24 22:01 11/04/24 00:01 Temperature 97.8 F Pulse Rate 57 L 71 66 Pulse Rate [Left Radial Palpation] Respiratory Rate 19 19 20 Blood Pressure 188/90 H 183/90 H 173/79 H Pulse Oximetry 98 96 Oxygen Delivery Room Air 11/04/24 00:02 11/04/24 01:22 11/04/24 01:31 Temperature Pulse Rate 65 77 69 Pulse Rate [Left Radial Palpation] Respiratory Rate 21 H 23 H 24 H Blood Pressure 194/94 H 197/91 H Pulse Oximetry 97 99 Oxygen Delivery 11/04/24 02:00 11/04/24 03:08 11/04/24 03:44 Temperature Pulse Rate 73 67 Pulse Rate [Left Radial Palpation] Respiratory Rate 21 H 19 Blood Pressure 179/92 H 165/59 H Pulse Oximetry 97 95 Oxygen Delivery Room Air 11/04/24 03:44 11/04/24 06:02 11/04/24 08:00 Temperature 97.2 F L Pulse Rate 65 Pulse Rate [Left Radial Palpation] 66 Respiratory Rate 16 Blood Pressure 172/91 H Pulse Oximetry 98 Oxygen Delivery Room Air 11/04/24 14:00 Temperature 98.6 F Pulse Rate 77 Pulse Rate [Left Radial Palpation] Respiratory Rate 18 Blood Pressure 144/89 H Pulse Oximetry 99 Oxygen Delivery Intake/Output Intake/Output: Intake & Output 11/01/24 11/02/24 11/03/24 11/04/24 23:59 23:59 23:59 23:59 Intake Total 1480 Output Total 80 Balance 1400 Meds/Results Medications: Active Medications Generic Name Dose Route Start Last Admin Trade Name Freq PRN Reason Stop Dose Admin Acetaminophen 650 mg 11/04/24 02:06 11/04/24 05:40 Acetaminophen 325 Mg Tablet PO 650 mg Q4H PRN Administration Mild Pain (1-3) or Fever Chlordiazepoxide HCl 50 mg 11/04/24 06:05 11/04/24 12:41 Chlordiazepoxide (*Crx) 25 Mg Capsule PO 50 mg Q6HR SOURAV Administration Dextrose 12.5 gm 11/04/24 02:06 Dextrose 50% 25 Gm/50 Ml Syringe IV PUSH PRN PRN Hypoglycemia Protocol Famotidine 20 mg 11/04/24 11:00 11/04/24 12:42 Famotidine 20 Mg/2 Ml Vial IV PUSH 20 mg Q12HR SOURAV Administration Glucagon 1 mg 11/04/24 02:06 Glucagon For Inj 1 Mg Vial IM PRN PRN Hypoglycemia Protocol Glucose 15 gm 11/04/24 02:06 Glucose Oral Gel 15 Gm Of Glucse In 37.5 Gm Tube PO PRN PRN Hypoglycemia Protocol Dextrose 1,000 mls @ 100 mls/hr 11/04/24 02:06 Dextrose 5% 1,000 Ml IVPB PRN PRN Hypoglycemia Protocol Lorazepam 2 mg 11/04/24 06:01 Lorazepam Inj (*Crx) 2 Mg/Ml Vial IV PUSH Q4H PRN CIWA 8-15 Ondansetron HCl 4 mg 11/04/24 02:06 Ondansetron Inj 4 Mg/2 Ml Vial IV PUSH Q4H PRN Nausea Radiology Results: ITS Impressions Chest/Abdomen/Pelvis CTA 11/04/24 06:12 Impression: No aortic aneurysm or dissection. Trace pelvic ascites, nonspecific. Mild upper lobe emphysema. Compression fractures of T7, L1, L2, stable since prior exam. Labs Labs: Laboratory Results - last 24 hr 11/03/24 11/04/24 11/04/24 21:42 00:23 02:52 WBC 14.2 H RBC 4.61 Hgb 13.9 L Hct 42.3 MCV 91.8 MCH 30.2 MCHC 32.9 RDW 14.4 Plt Count 345 MPV 9.3 Immature Gran % (Auto) 0.5 Neut % (Auto) 70.5 Lymph % (Auto) 22.3 [place] % (Auto) 5.2 Eos % (Auto) 1.1 Baso % (Auto) 0.4 Lymph # (Auto) 3.16 [place] # (Auto) 0.7 H Eos # (Auto) 0.2 Baso # (Auto) 0.1 Abs Immat Gran (auto) 0.07 H Absolute Neuts (auto) 10.0 H Absolute Nucleated RBC 0.000 Nucleated RBC % 0.0 Sodium 138 Potassium 3.6 Chloride 107 Carbon Dioxide 27 Anion Gap 4 BUN 17 Creatinine 0.80 Estim Creat Clear Calc 57 Estimated GFR > 60 Glucose 122 H Lactic Acid 1.6 Calcium 8.8 Total Bilirubin 0.4 AST 20 ALT 12 Alkaline Phosphatase 116 Troponin I < 0.012 Total Protein 7.0 Albumin 4.0 Lipase 49 Urine Color Yellow Urine Appearance Clear Urine pH 5.5 Ur Specific [place] > 1.045 H Urine Protein Trace Urine Glucose (UA) Trace H Urine Ketones 1+ H Ur Blood (Man) Negative Urine Nitrate Negative Urine Bilirubin Negative Urine Urobilinogen 1.0 Add Ur Microanalysis Reviewed Leukocyte Esterase Rfl Negative Urine RBC 0-2 Urine WBC 0-5 Ur Squamous Epith Cells None seen Urine Bacteria None seen Urine Casts 0-2 Urine Mucus Present Influenza A (RT-PCR) Negative Influenza B (RT-PCR) Negative RSV (RT-PCR) Negative SARS-CoV-2 RNA (RT-PCR) Negative 11/04/24 08:54 WBC 3.4 L RBC 5.31 Hgb 16.1 Hct 48.7 MCV 91.7 MCH 30.3 MCHC 33.1 RDW 14.5 Plt Count 354 MPV 9.4 Immature Gran % (Auto) Neut % (Auto) Lymph % (Auto) [place] % (Auto) Eos % (Auto) Baso % (Auto) Lymph # (Auto) [place] # (Auto) Eos # (Auto) Baso # (Auto) Abs Immat Gran (auto) Absolute Neuts (auto) Absolute Nucleated RBC Nucleated RBC % Sodium Potassium Chloride Carbon Dioxide Anion Gap BUN Creatinine Estim Creat Clear Calc Estimated GFR Glucose Lactic Acid Calcium Total Bilirubin AST ALT Alkaline Phosphatase Troponin I Total Protein Albumin Lipase Urine Color Urine Appearance Urine pH Ur Specific [place] Urine Protein Urine Glucose (UA) Urine Ketones Ur Blood (Man) Urine Nitrate Urine Bilirubin Urine Urobilinogen Add Ur Microanalysis Leukocyte Esterase Rfl Urine RBC Urine WBC Ur Squamous Epith Cells Urine Bacteria Urine Casts Urine Mucus Influenza A (RT-PCR) Influenza B (RT-PCR) RSV (RT-PCR) SARS-CoV-2 RNA (RT-PCR) Quality VTE Prophylaxis VTE prophylaxis: mechanical ordered Hospitalist [facility] Advance Care Plan I have confirmed that the patient's Advanced Care Plan is present, code status is documented, or surrogate decision maker is listed in patient medical record.: Yes Medication Reconciliation I have utilized all available resources to obtain, update and review the patients current medications (includes all prescriptions, OTC, herbals, cannabis, and nutritional supplements).: Yes
[2024-11-05] MEDS: ACETAMINOPHEN 325 MG TABLET 650 MG PO (00:01)
[2024-11-05] MEDS: chlordiazePOXIDE (*CRX) 25 MG CAPSULE 50 MG PO ×2 (00:01→05:51)
[2024-11-05 00:07] LABS: Glucose Point of Care 115 mg/dl (65-105)
[2024-11-05] MEDS: diphenhydrAMINE HCl INJ 50 MG/ML VIAL IV PUSH (01:27)
[2024-11-05] MEDS: LORazepam INJ (*CRX) 2 MG/ML VIAL 1 MG IV PUSH (01:28)
[2024-11-05 02:21] VITALS: RESP 73
[2024-11-05 04:26] VITALS: BP 125/90; PULSE 95; RESP 20; TEMP 36.4; O2SAT 97
[2024-11-05 05:57] LABS: Hematocrit 50.3 % (42.0-52.0); Hemoglobin 16.5 g/dL (14.0-18.0); Mean Corpuscular HGB Conc 32.8 g/dl (32-36); Mean Corpuscular Hemoglobin 29.9 pg (26-34); Mean Corpuscular Volume 91.3 fl (80-100); Mean Platelet Volume 10.1 fl (7.4-10.4); Platelet Count Result 375 k/mm3 (150-375); Red Blood Count 5.51 M/mm3 (4.6-6.20); Red Cell Distribution Width 14.7 % (11.5-14.5)
[2024-11-05 06:46] LABS: Glucose Point of Care 102 mg/dl (65-105)
[2024-11-05 08:34] VITALS: BP 115/88
[2024-11-05] MEDS: FAMOTIDINE 20 MG/2 ML VIAL IV PUSH (08:34)
[2024-11-05 08:51] VITALS: BP 115/88; PULSE 102; TEMP 36.2; O2SAT 98
--- NOTE | 2024-11-05 09:58 | PC.NURSE ---
Addendum entered by Kwan Pabon RN 11/05/24 10:04: RN called hospitalist Duluis a at [phone] and updated him on patient behaviors. Hospitalist stated he would be up shortly to see patient. Original Note: Patient setting off bed alarm constantly. Patient not listening to RN or staff. Patient getting up to chair, getting up from chair, and back to bed regardless of RN and [facility] telling patient he must call for help. Patient would only use fingers to eat and refused to use fork. Patient picked up water jug and drank that okay. Patient knocked breakfast all over floor. Patient vitals are stable at this time even though patient is hyperventilating. RN asked patient what is wrong. Patient keeps whispering I am sick . Patient whispers only and it is difficult to comprehend what he is saying. Patient has had no nausea or vomiting. Patient is back in bed, instructed to call for help if wants to get up, and bed alarm is set with call light within reach.
[2024-11-05 12:04] LABS: Glucose Point of Care 109 mg/dl (65-105)
--- NOTE | 2024-11-05 13:02 | PM.DS ---
DS: Admitting Diagnosis Discharge Date 11/05/24 Admitting Diagnosis Abdominal Pain DS: Discharge Diagnosis Discharge Diagnosis (1) Abdominal pain: Qualifiers: Abdominal location: unspecified location Qualified Code(s): R10.9 - Unspecified abdominal pain Code(s): R10.9 - Unspecified abdominal pain Status: Acute Assessment and Plan: - Chest/Abd/Pelvis CTA negative for acute. - Patient denies any abdominal pain or distress. - Advised to f/u outpatient with PCP for further work-up if needed. (2) Dehydration: Code(s): E86.0 - Dehydration Status: Acute Assessment and Plan: - Possibly related to ETOH dependence. - Resolved. - Patient tolerating meals and fluids well. - Encouraged with PO intake. (3) Gastroenteritis: Code(s): K52.9 - Noninfective gastroenteritis and colitis, unspecified Status: Acute Assessment and Plan: - Tolerating meals well and has no GI distress. - Appears resolved. (4) Nicotine abuse: Code(s): Z72.0 - Tobacco use Status: Acute Assessment and Plan: - Encouraged with cessation. - Declines nitocine patch or gum. (5) EtOH dependence: Code(s): F10.20 - Alcohol dependence, uncomplicated Status: Acute Assessment and Plan: - No withdrawal signs noted inpatient. - Encouraged with cessation. Plan Discharge Home. DS: Summary Hospital Course Reason for hospitalization: Abdominal Pain Hospital Course: Patient admitted to the hospital for abdominal pain. CTA Chest/Abd/Pelvis negative except for Trace pelvic ascites, nonspecific. Patient denying any GI distress and tolerating meals well. Advised to follow-up with PCP regarding the ascites. Patient has a Hx of ETOH abuse and was placed on CIWA protocol but no withdrawal signs or symptoms observed. She was mildly dehydrated possibly from ETOH abuse and this was treated with IVF hydration. Pt states wants to go home today and will follow-up at the [facility] for his medical issues. No acute distress noted or reported prior to discharge and patient is medically stable for discharge. Time spent discussing smoking cessation with patient: 3 to 10 minutes Status at Discharge Functional status at discharge: independent ambulation Overall status at discharge: patient is back to baseline Time Spent with Patient Time attestation: Total time spent providing and/or coordinating discharge services: Time spent: Less than 30 minutes Exam Narrative: General: Elderly white male, appears malnourished. HEENT: Atraumatic, PEERL, EOM, moist mucosa. NECK: Supple. Lungs: Clear bilaterally. Heart: RRR, no murmurs. Abdomen: Soft, non-tender, non-distended, +ve bowels X4 quadrants. Extremities: Acyanotic, no edema. Skin: Warm and dry. Neuro: Well oriented, no formal deficits noted. Psych: Calm and co-operative. DS: Data Data Completed and Pending Labs on day of discharge: Labs from last 24 hours 11/05/24 11/05/24 11/05/24 11:52 06:39 05:31 WBC 7.0 RBC 5.51 Hgb 16.5 Hct 50.3 MCV 91.3 MCH 29.9 MCHC 32.8 RDW 14.7 H Plt Count 375 MPV 10.1 POC Capillary Glucose 109 H 102 11/05/24 00:01 WBC RBC Hgb Hct MCV MCH MCHC RDW Plt Count MPV POC Capillary Glucose 115 H Discharge Plan Discharge Attending physician on discharge: Kim Healy Discharging Clinician: Jacquelin Peraza Anticipated Discharge Date/Time: 11/05/24 13:18 Patient Disposition: Home, Self-Care Activity: as tolerated Diet: as tolerated Patient Instructions: Antibiotic Form Patient Language: Kuwaiti Stand Alone Forms: General Discharge Information Follow-up/Referrals: PHYSICIAN,CAMP ATTENDANT [Primary Care Provider] - 1 Week Discharge Medications: No Action No Home Medications Date of admission: 11/04/24 02:06 Primary Care Provider: PHYSICIAN,CAMP ATTENDANT Admitting Provider: Robert Krueger V. Attending physician on admission: Robert Krueger V. Condition: Stable Quality VTE Prophylaxis VTE prophylaxis: mechanical ordered Hospitalist MIPS Heart Failure (Exclusion) Patient has history of Heart Transplant or Left Ventricular Assistive Device?: No IF YES, STOP HERE Heart Failure (Qualifier) Patient has current or prior documentation of LVEF less than or equal to 40%, or mod/servere depressed LVSF?: No IF NO, STOP HERE
[2024-11-05 13:52] VITALS: BP 128/84; PULSE 115; RESP 20; TEMP 36.4; O2SAT 93
--- NOTE | 2024-11-05 16:21 | PC.NURSE ---
RN spoke with Radiology as systems are down. Impression of XRAY was given over the phone. No acute changes.
== END 2024-11-05 18:20 | disposition home or self-care (01) ==
LOC: ANHED 11-04 02:00 → ANH3MED 11-05 11:45
PROVIDERS: Nurse Practitioner Adult Health; Admitting Provider Internal Medicine; Emergency Provider Physician Assistant; Visit Provider Internal Medicine
DX: R10.9 Unspecified abdominal pain (principal); E86.0 Dehydration; R18.8 Other ascites; K52.9 Noninfective gastroenteritis and colitis, unspecified; Z72.0 Tobacco use; F10.20 Alcohol dependence, uncomplicated; Z20.822 Contact with and (suspected) exposure to COVID-19; Z85.51 Personal history of malignant neoplasm of bladder
CPT/HCPCS: 36415; 71275; 73521; 74174; 80053; 81001; 82948; 83605; 83690; 84484; 85025; 85027; 87637; 93005; 96361; 96372; 96374; 96375; 96376; 99285; A9270; G0378; J1200; J1885; J2060; J2270; J2405; J3411; J3475; J7030; Q9967

== ENCOUNTER 2024-11-05 19:29 | Inpatient (IN) | payer OTHER, SELFPAY ==
[2024-11-05] VITALS (15 sets, daily range): BP systolic 76–144; BP diastolic 48–88; PULSE 77–91; RESP 14–29; TEMP 36.2–36.4; O2SAT 98–100
--- NOTE | ~2024-11-05 | XR_ITS ---
EXAMINATION: XR chest 1V portable DATE: 12/08/2024 11:36 INDICATION: Shortness of breath. TECHNIQUE: A single frontal view of the chest was obtained. COMPARISON: Chest single view 12/04/2024, chest CT 12/02/2024 FINDINGS: There are small pleural effusions. There are airspace opacities at the lung bases. There ar e lucencies in the lungs, consistent with emphysema. No pneumothorax. The heart size is normal. There are percutaneous drains in the abdomen. IMPRESSION: 1. Stable airspace opacities at the lung bases, consistent with atelectasis versus pneumonia. 2. Stable small pleural effusions. 3. Emphysema. Reviewed, dictated and finalized at location A. ER HELPER IMPRESSION: 1. Stable airspace opacities at the lung bases, consistent with atelectasis marlin kyree pneumonia. 2. Stable small pleural effusions. 3. Emphysema.
--- NOTE | ~2024-11-05 | XR_ITS ---
CHEST RADIOGRAPH CLINICAL HISTORY: Hypoxia . COMPARISON: 11/23/2024 TECHNIQUE: Single portable view of the chest. FINDINGS The cardiomediastinal silhouette is partially obscured. Redemonstration of large bilateral pleural effusions. Increased interstitial markings are identified bilaterally, findings suggesting mild pulmonary vascul ar congestion. The remainder of the lungs are clear. Pigtail catheter remains within a perihepatic collection, to the right of midline. Redemonstration of opacification of the left upper quadrant of the abdomen (similar to the right uppe r quadrant), likely representing perisplenic fluid. Focused ultrasound may provide additional informa tion, if the patient is clinically able. IMPRESSION: Redemonstration of large bilateral pleural effusions with mild pulmonary vascular congestion. No focal infiltrate. Reviewed, dictated and finalized at location A. HEAD COOPER IMPRESSION: Redemonstration of large bilateral pleural effusions with mild pulmonary vascul ar congestion. No focal infiltrate.
--- NOTE | ~2024-11-05 | CT_ITS ---
EXAMINATION: CT chest abdomen pelvis wo con DATE: 11/05/2024 20:44 INDICATION: Free intraperitoneal gas. TECHNIQUE: Computed tomography (CT) of the chest, abdomen, and pelvis was performed without intraveno us contrast. Automated exposure control and iterative reconstruction technique were employed. The dos e-length product was 350.61 mGy-cm. COMPARISON: CT 11/03/2024 FINDINGS: CHEST CT: There is mild emphysema. There are small pleural effusions. There are airspace opacities and groundgl ass opacities in the basilar right lower lobe, consistent with pneumonia. There is mild dependent ate lectasis on the left. Calcified left lung nodules and calcified left hilar lymph nodes are consistent with old granulomatous disease. The endotracheal tube tip is in expected position. The nasogastric t ube tip is at the gastroesophageal junction. The heart size is normal. There is a small pericardial e ffusion. There is chronic height loss of multiple vertebral bodies. There is severe cervical spondylo sis and mild thoracic spondylosis. ABDOMEN/PELVIS CT: There is free intraperitoneal gas. There is a large volume of ascites. Calcifications in the liver an d spleen are consistent with old granulomatous disease. There is a 8 mm cyst in the liver. The gallbl adder, pancreas, adrenal glands, and kidneys are normal. The bladder is decompressed by a Shen bo ter. There are no dilated loops of bowel. There are no pathologically enlarged lymph nodes. There is instrumentation of proximal right femur. There is severe lumbar spondylosis. There is chronic height loss of multiple vertebral bodies. IMPRESSION: 1. Free intraperitoneal gas, consistent with perforated viscus. I called this result to Dr. Woods . 2. Large volume of ascites. 3. Right lower lobe pneumonia. 4. Small pleural effusions. 5. Small pericardial effusion. 6. Nasogastric tube tip at the gastroesophageal junction. Reviewed, dictated and finalized at location A. MENT IMAGE TECHNICIAN IMPRESSION: 1. Free intraperitoneal gas, consistent with perforated viscus. I called this r esult to Dr. Woods. 2. Large volume of ascites. 3. Right lower lobe pneumonia. 4. Small pleural effusions. 5. Small pericardial effusion. 6. Nasogastric tube tip at the gastroesophageal junction.
--- NOTE | ~2024-11-05 | US_ITS ---
EXAMINATION: US venous doppler [facility] DATE: 11/22/2024 10:21 INDICATION: Lower limb swelling TECHNIQUE: Grayscale ultrasound images without and with compression and Doppler ultrasound images of the bilateral lower extremity veins were obtained. COMPARISON: None. FINDINGS: The visualized portions of right common femoral vein, profunda (deep) femoral vein, femoral vein, pop liteal vein, posterior tibial veins, peroneal veins, gastrocnemius vein and greater saphenous vein ou tflow are patent. The visualized portions of left common femoral vein, profunda femoral vein, femoral vein, popliteal v ein, posterior tibial veins, peroneal veins, gastrocnemius vein and greater saphenous vein outflow ar e patent. IMPRESSION: 1. No deep venous thrombosis in either lower limb. Reviewed, dictated and finalized at location B. GE ADJUSTER
--- NOTE | ~2024-11-05 | US_ITS ---
EXAM: RENAL ULTRASOUND HISTORY: DEBI COMPARISON: 11/10/2024 FINDINGS: RIGHT KIDNEY: 12.1 x 6.6 x 6.3 cm. No hydronephrosis or bulky renal calculi. The parenchyma of the right kidney is increased in echogenicity. LEFT KIDNEY: 10.9 x 6.8 x 4.3 cm No hydronephrosis or renal calculi. The parenchyma of the left kidney is increased in echogenicity. BLADDER: Decompressed, limiting its evaluation. Free fluid within the pelvis. IMPRESSION: No hydronephrosis or renal calculi. Findings suggesting medical renal disease. Free fluid within the pelvis. Reviewed, dictated and finalized at location A. TH TECHNICAL WRITER
--- NOTE | ~2024-11-05 | XR_ITS ---
EXAMINATION: XR barium swallow modified DATE: 11/26/2024 10:24 INDICATION: Dysphagia. TECHNIQUE: The patient was given barium-containing material of multiple consistencies to swallow by t gaurav speech pathologist while I performed fluoroscopy. Fluoroscopy exposure time was 1.7 minutes. The n umber of fluoroscopy images saved to the PACS was 1. Dose-area product was 1 Gy-cm^2. FINDINGS: There is reduced tongue base retraction. There is vallecular residue and pharyngeal wall residue. The re is trace laryngeal penetration. IMPRESSION: 1. Trace laryngeal penetration. 2. Please refer to the speech therapy report for recommendations. Reviewed, dictated and finalized at location A. S ASSISTANT DISPLAYS
--- NOTE | ~2024-11-05 | NM_ITS ---
EXAMINATION: NM renal flow and function DATE: 11/23/2024 13:58 INDICATION: Acute renal insufficiency. TECHNIQUE: 8.3 mCi Tc-99m MAG3 was administered IV. The patient was scanned in the supine position. A posterior abdominal radionuclide angiogram was obtained. A subsequent time course of static images of the kidneys, ureters, and bladder was obtained. COMPARISON: 11/20/2024 FINDINGS: The posterior abdominal radionuclide angiogram and sequential static images show normal size, positio n, and morphology of the kidneys. Peak renal parenchymal uptake was indeterminate in both kidneys wit h bilateral continually rising activity curve over the 30 minutes of imaging (normal peak 3-5 minutes ). The relative early renal uptake was 53% on the left and 47% on the right (<40% is abnormal). No e vident hydronephrosis at either on the current scintigrams were on the recent prior CT. No abnormalit ies of the ureters or bladder are seen. IMPRESSION: 1. Symmetric kidney function. 2. Delayed activity clearance from both kidneys with continually rising activity curves extending ov er the 30 minutes of observation and without associated hydronephrosis consistent with nonspecific, n onobstructive nephropathy. Reviewed, dictated and finalized at location B. HER ADJUSTER IMPRESSION: 1. Symmetric kidney function. 2. Delayed activity clearance from both kidneys with continually rising activi ty curves extending over the 30 minutes of observation and without associated h ydronephrosis consistent with nonspecific, nonobstructive nephropathy.
--- NOTE | ~2024-11-05 | XR_ITS ---
XR chest 1V portable 11/27/2024 13:13 Indication: Leukocytosis. Procedure: AP portable chest Comparison: Comparison to multiple prior studies sequentially, with oldest reviewed study dated 10/22. Findings: Heart size upper normal. There is pulmonary edema. Bilateral pleural effusions. No pneumoth orax. Impression: 1: Moderate edema with bilateral pleural effusions. Reviewed, dictated and finalized at location B. WALKER Impression: 1: Moderate edema with bilateral pleural effusions.
--- NOTE | ~2024-11-05 | XR_ITS ---
EXAMINATION: XR barium swallow modified DATE: 11/13/2024 11:55 INDICATION: Aspiration pneumonia. TECHNIQUE: The patient was given barium-containing material of multiple consistencies to swallow by t gaurav speech pathologist while I performed fluoroscopy. Fluoroscopy exposure time was 2.9 minutes. The n umber of fluoroscopy images saved to the PACS was 1. Dose-area product was 1.785 Gy-cm^2. FINDINGS: There is reduced laryngeal elevation, reduced tongue base retraction, reduced pharyngeal squeeze, shawna lecular residue, pyriform sinus residue, and laryngeal penetration. IMPRESSION: 1. Laryngeal penetration. 2. Please refer to the speech therapy report for recommendations. Reviewed, dictated and finalized at location A. APPLIANCE WASHING MACHINE MECHANIC
--- NOTE | ~2024-11-05 | XR_ITS ---
EXAMINATION: XR UGI water soluble wo kub DATE: 11/08/2024 11:16 INDICATION: Gastric perforation post repair TECHNIQUE: Water-soluble contrast was administered due to the patient's previously placed nasogastric tube. A total of 27 fluoroscopic images and 4 overhead radiographs of the esophagus, stomach, and pr oximal small bowel were obtained. Fluoroscopy exposure time was 1.0 minutes. Total DAP was 9.488 mGyc m^2 COMPARISON: Radiograph dated 11/07/2024 FINDINGS: Again seen is a nasogastric tube with tip in the proximal body of the stomach. There is also a surgic al drain extending from the right abdomen cross the midline with distal tip along the proximal lesser curvature of the stomach. Midline surgical clips consistent with recent abdominal surgery. Right fem oral central venous catheter with distal tip in the region of the inferior vena cava bifurcation. Contrast fills the stomach with slow gastric emptying. No evident extraluminal leakage of contrast. N o dilated loops of gas-filled bowel to suggest obstruction. There is gastroesophageal reflux of a sma ll amount of contrast along side the nasogastric tube which extends into the mid to distal esophagus. Opacities at the right lung base with blunting at the posterior sulcus consistent with small right pl eural effusion and associated atelectasis. IMPRESSION: 1. Slow gastric emptying likely related to postoperative ileus. No extraluminal leakage of contrast. Reviewed, dictated and finalized at location A. WEAVER
--- NOTE | ~2024-11-05 | XR_ITS ---
Portable chest x-ray Comparison: 11/07/2024 Clinical History: Respiratory failure Findings: NG tube in satisfactory position. Small layering right pleural effusion probably present v ersus other hazy right basilar airspace disease. Cardiomediastinal silhouette is stable. Bones and s oft tissues are unremarkable. Impression: Small right pleural effusion versus other hazy right basilar airspace disease. NG tube in place. Reviewed, dictated and finalized at location . NG PLANT OPERATOR Impression: Small right pleural effusion versus other hazy right basilar airspace disease. NG tube in place.
--- NOTE | ~2024-11-05 | CT_ITS ---
EXAMINATION: CT guide absc cath placement DATE: 11/12/2024 14:46 INDICATION: Right upper quadrant abdominal fluid collection. TECHNIQUE: Consent was provided by a family member. The skin overlying the abdomen was prepped and dr aped in usual sterile fashion. Anesthetic was administered with 1% lidocaine subcutaneously. An 18 g auge trochar needle was inserted into the right upper quadrant abscess with CT guidance. The needle w as exchanged over a wire for 6 [place] and 8 [place] dilators and then for an 8.5 [place] pigtail cathet er. The catheter was stitched to the skin, and a sterile dressing was applied. The mA was adjusted ac cording to patient size. Iterative reconstruction technique was employed. The dose-length product was 281.47 mGy-cm. There were no immediate complications. FINDINGS: CT images demonstrate the catheter within the right upper quadrant abscess. IMPRESSION: 1. Successful CT-guided right upper quadrant abdominal abscess drainage yielding yellow fluid. Reviewed, dictated and finalized at location A. MER MACHINE IMPRESSION: 1. Successful CT-guided right upper quadrant abdominal abscess drainage yieldin g yellow fluid.
--- NOTE | ~2024-11-05 | XR_ITS ---
EXAMINATION: XR barium swallow modified DATE: 11/12/2024 10:34 INDICATION: Aspiration. TECHNIQUE: The patient was given barium-containing material of multiple consistencies to swallow by t he speech pathologist while I performed fluoroscopy. Fluoroscopy exposure time was 0.9 minutes. The n umber of fluoroscopy images saved to the PACS was 1. Dose-area product was 0.487 Gy-cm^2. FINDINGS: There is reduced laryngeal seal/lip tension and reduced lingual movement. There is reduced laryngeal elevation, reduced laryngeal adduction, reduced tongue base retraction, reduced pharyngeal squeeze, v allecular residue, pyriform sinus residue, pharyngeal wall residue, and laryngeal penetration. IMPRESSION: 1. Laryngeal penetration. 2. Please refer to the speech therapy report for recommendations. Reviewed, dictated and finalized at location A. [facility]
--- NOTE | ~2024-11-05 | XR_ITS ---
EXAMINATION: XR abdomen gastric tube insert DATE: 11/07/2024 17:27 INDICATION: Nasogastric tube placement. TECHNIQUE: A supine view of the abdomen was obtained. COMPARISON: Abdomen radiograph 11/06/2024, CT 12 09/05/2024 FINDINGS: The lower abdomen is excluded. There are no dilated loops of bowel. There is fold thickenin g of bowel. The nasogastric tube tip is in the stomach. Skin chencho are noted. There are airspace op acities in the perihilar regions and lower lung zones. A catheter overlies the right common iliac vei n. IMPRESSION: 1. Nasogastric tube tip in the stomach. 2. Fold thickening of bowel, consistent with interstitial edema versus enterocolitis. 3. Airspace opacities in the perihilar regions and lower lung zones, consistent with atelectasis vers us pneumonia. Reviewed, dictated and finalized at location A. CAL REIMBURSEMENT SPECIALIST IMPRESSION: 1. Nasogastric tube tip in the stomach. 2. Fold thickening of bowel, consistent with interstitial edema versus enteroco litis. 3. Airspace opacities in the perihilar regions and lower lung zones, consistent with atelectasis versus pneumonia.
--- NOTE | ~2024-11-05 | CT_ITS ---
EXAMINATION: CT brain wo con DATE: 11/05/2024 20:44 INDICATION: Altered mental status. TECHNIQUE: Computed tomography (CT) of the head was performed without intravenous contrast. The mA wa s adjusted according to patient size. Iterative reconstruction technique was employed. The dose-lengt h product was 756.67 mGy-cm. COMPARISON: Head CT 07/20/2024, neck CT 07/21/2024 FINDINGS: There are scattered areas of low attenuation in the cerebral white matter. There is no intr acranial hemorrhage or acute infarction. There is a 3.2 x 1.4 cm extra-axial mass at the left petrous ridge, consistent with a meningioma. The ventricles are normal in size. There is mild mucosal thicke kiley in the paranasal sinuses. The orbits are normal. The mastoid air cells are normal. IMPRESSION: 1. Moderate nonspecific cerebral white matter disease, which likely represents chronic small vessel i schemic disease. 2. 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 Reviewed, dictated and finalized at location A. MBLY MACHINE TOOL SETTER IMPRESSION: 1. Moderate nonspecific cerebral white matter disease, which likely represents chronic small vessel ischemic disease. 2. 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
--- NOTE | ~2024-11-05 | XR_ITS ---
EXAMINATION: XR chest 1V portable DATE: 12/04/2024 14:59 INDICATION: Leukocytosis TECHNIQUE: frontal view of the chest was obtained. COMPARISON: Chest radiograph dated 11/27/2024 FINDINGS: Decrease in the opacities now in the bilateral lower lung zones consistent with decreasing small bila teral pleural effusions, right greater than left and associated basilar atelectasis and/or pneumonia. No pulmonary edema. No pneumothorax. The cardiomediastinal silhouette is normal. Mild lumbar levocur vature. IMPRESSION: 1. Decreasing small bilateral pleural effusions with associated bibasilar atelectasis and/or pneumoni a. Reviewed, dictated and finalized at location B. AND MACHINE MAINTAINER IMPRESSION: 1. Decreasing small bilateral pleural effusions with associated bibasilar atele ctasis and/or pneumonia.
--- NOTE | ~2024-11-05 | CT_ITS ---
CLINICAL INDICATION: Worsening leukocytosis and diarrhea COMPARISON: 11/20/2024 and 11/10/2024. TECHNIQUE: Multiple contiguous axial images of the abdomen and pelvis were performed without the admi nistration of intravenous contrast The dose-length product (DLP) was 349.89 mGy-cm. Automated exposure control and iterative reconstruction technique were employed. FINDINGS/OBSERVATIONS: Chest: Bilateral pleural effusions persist, decreased in size from most recent examination dated 11/20/2024. Adjacent compressive consolidation and atelectasis are present. The heart is of normal size, without pericardial effusion. No significant mediastinal lymphadenopathy is present. No acute fractures, significant lytic or blastic lesions are identified. Liver: Punctate calcifications identified within the hepatic parenchyma, suggesting prior granulomatous dise ase. Redemonstration of subcapsular fluid collection within the liver, likely representing an abscess. This collection measures 57 x 22 x 68 mm (anterior to posterior x medial to lateral x cranial to caud al dimension) and is amenable to percutaneous drainage. 9 mm focus of decreased attenuation within segment 3 of the liver, likely a simple cyst. Gallbladder and biliary system: The unenhanced gallbladder is only minimally distended, and otherwise unremarkable. Pancreas: Limited evaluation of the pancreas secondary to the lack of intravenous contrast. Spleen: Punctate calcifications identified within the splenic parenchyma, suggesting prior granulomatous dise ase. Redemonstration of a subcapsular fluid collection within the spleen measuring 57 x 32 x 50 mm (anteri or to posterior x medial to lateral x cranial to caudal dimension) and is amenable to percutaneous dr shauna. Kidneys: Malrotation of the right kidney. The remainder of the bilateral unenhanced kidneys are otherwise unremarkable, without significant hyd ronephrosis or renal calculi. Adrenal glands: Limited evaluation secondary to the lack of intravenous contrast. Gastrointestinal tract: Fecal stasis within the colon. Interval removal of all drainage catheters when compared with previous examination dated 11/20/2024 Appendix: Unable to visualize the appendix. Vasculature: Calcified atherosclerotic disease. Lymph nodes: Limited evaluation without intravenous contrast. Pelvic structures: The bladder is only minimally distended, and otherwise unremarkable. The prostate gland is not significantly enlarged. Body wall and musculoskeletal: Degenerative disease at the level of L5/S1 with osteophyte formation, disc space narrowing, endplate changes and vacuum phenomena. IMPRESSION: Redemonstration of subcapsular fluid collections within both the liver and spleen (as detailed above) for which abscess formation is suspected. Both collections are amenable to percutaneous drainage. Bilateral large pleural effusions, with adjacent consolidation, decreased from prior. Reviewed, dictated and finalized at location A. ITY PROSPECTING OPERATOR HELPER IMPRESSION: Redemonstration of subcapsular fluid collections within both the liver and sple en (as detailed above) for which abscess formation is suspected. Both collections are amenable to percutaneous drainage. Bilateral large pleural effusions, with adjacent consolidation, decreased from prior.
--- NOTE | ~2024-11-05 | XR_ITS ---
Portable chest x-ray Comparison: 11/06/2024 Clinical History: Respiratory failure Findings: Endotracheal tube and NG tube are in satisfactory positions. There is patchy right basilar airspace disease. Cardiomediastinal silhouette is stable. Bones and soft tissues are unremarkable. Impression: Right basilar pneumonia versus possibly asymmetric pulmonary edema/atelectasis. Support tubes, as above. Reviewed, dictated and finalized at [facility]. RACY EXPERT Impression: Right basilar pneumonia versus possibly asymmetric pulmonary edema/atelectasis. Support tubes, as above.
--- NOTE | ~2024-11-05 | XR_ITS ---
XR chest 1V portable Ordering provider: Hernesto Modi History: 69 years Male with . Resp Failure . Comparison: November 05, 2024 FINDINGS: MEDIASTINUM: The cardiac silhouette is not enlarged. Endotracheal tube is seen with the tip above the aditya by about 2 cm. Nasogastric tube is seen extending to the stomach. Congestive jasvir. LUNGS: No , effusions or pneumothorax. Bilateral basal opacification is seen suggestive of pneumonia. Bilateral interstitial changes. OTHER: No free air under the diaphragm. IMPRESSION: Congestive jasvir with bilateral interstitial changes. Edema versus pneumonitis is not excluded. Bilateral basal pneumonia. Reviewed, dictated and finalized at location A. MACHINE OPERATOR IMPRESSION: Congestive jasvir with bilateral interstitial changes. Edema versus pneumonitis i s not excluded. Bilateral basal pneumonia.
--- NOTE | ~2024-11-05 | XR_ITS ---
EXAMINATION: XR chest 1V portable DATE: 11/10/2024 05:51 INDICATION: Respiratory failure. TECHNIQUE: A single frontal view of the chest was obtained. COMPARISON: Chest single view 11/09/2024 FINDINGS: There are small pleural effusions. There are airspace opacities at the lung bases. No pneum othorax. The heart size is normal. The nasogastric tube tip is beyond the inferior margin of the radi ograph, but at least to the stomach. Abdominal skin chencho and surgical drain are noted. There are o ld healed right rib fractures. IMPRESSION: 1. Stable small pleural effusions. 2. Stable airspace opacities at the lung bases, consistent with atelectasis versus pneumonia. Reviewed, dictated and finalized at location A. URY MACHINE OPERATOR IMPRESSION: 1. Stable small pleural effusions. 2. Stable airspace opacities at the lung bases, consistent with atelectasis marlin kyree pneumonia.
--- NOTE | ~2024-11-05 | XR_ITS ---
Exam: Abdomen 2V HISTORY: abdominal distension and pain progressive leukocytosis COMPARISON: Reference is made to a CT examination of the chest abdomen and pelvis dated 11/10/2024 TECHNIQUE: Supine images of the abdomen and pelvis. FINDINGS: Oral contrast opacifies the colon. Nasogastric tube within the stomach. Small bore drainage catheter within the right upper quadrant. Bilateral pleural effusions. Intramedullary yeimi and screw within the right femur. IMPRESSION: Nonspecific, nonobstructive bowel gas pattern. Supportive devices unchanged in position. Bilateral pleural effusions. If clinical suspicion persists, CT examination of the abdomen and pelvis (with intravenous contrast) is suggested for further evaluation. Reviewed, dictated and finalized at location A. BREAD BAKER
--- NOTE | ~2024-11-05 | XR_ITS ---
EXAMINATION: XR chest 1V portable DATE: 11/11/2024 05:29 INDICATION: Perforated gastric ulcer. TECHNIQUE: A single frontal view of the chest was obtained. COMPARISON: Chest single view 11/10/2024 FINDINGS: There are airspace opacities in the lower lung zones. There are small pleural effusions. No pneumothorax. The heart size is normal. The nasogastric tube tip is beyond the inferior margin of th e radiograph, but at least to the stomach. Skin chencho are noted. A surgical drain is noted in the a bdomen. IMPRESSION: 1. Stable small pleural effusions. 2. Stable airspace opacities in the lower lung zones, consistent with atelectasis versus pneumonia. Reviewed, dictated and finalized at location A. ACE TAPPER IMPRESSION: 1. Stable small pleural effusions. 2. Stable airspace opacities in the lower lung zones, consistent with atelectas is versus pneumonia.
--- NOTE | ~2024-11-05 | XR_ITS ---
EXAMINATION: XR chest ET placement DATE: 11/05/2024 19:50 INDICATION: Intubation. TECHNIQUE: A single frontal view of the chest was obtained. COMPARISON: Chest view 07/20/2024, chest CT 11/03/2024 FINDINGS: There are lucencies and interstitial opacities in the lungs, consistent with emphysema. No pleural effusion or pneumothorax. The heart size is normal. The endotracheal tube tip is 4.5 cm above the aditya. IMPRESSION: 1. Emphysema. Reviewed, dictated and finalized at location A. ISION AIRCRAFT STRUCTURE ASSEMBLER IMPRESSION: 1. Emphysema.
--- NOTE | ~2024-11-05 | CT_ITS ---
EXAMINATION: CT abdomen pelvis wo con DATE: 11/20/2024 14:18 INDICATION: Postop gastric ulcer perforation, abd pain TECHNIQUE: Computed tomography (CT) of the abdomen and pelvis was performed without intravenous contr ast. Automated exposure control and iterative reconstruction technique were employed. The dose-length product was 473.85 mGy-cm. COMPARISON: 11/10/2024. FINDINGS: Exam limited by significant beam hardening from arm positioning and paucity of abdominal fat. Lower thorax: Bilateral lower lobe consolidation and volume loss. Large bilateral pleural fluid colle ctions Liver: Simple left lobe cyst. Biliary/Gallbladder: Gallbladder is normal. No bile duct dilation. Pancreas: No mass or duct dilation. Spleen: Normal. Adrenals:No mass. Kidneys: No suspicious mass, obstructing stone, or hydronephrosis. GI tract: Single loop of dilated jejunum in the left upper quadrant. No large bowel dilation. Ascendi ng and transverse colonic wall thickening. Less pronounced wall thickening in the descending colon an d sigmoid. Normal appendix. Mesentery/Peritoneum: Moderate ascites with moderate mesenteric fat edema. Right upper quadrant drain Retroperitoneum: No mass. Atherosclerotic abdominal aortic and/or arterial calcifications. Pelvis: Pelvic organs are within normal limits. Soft Tissues: Midline upper abdominal skin chencho. Diffuse body wall edema. Bones: No acute osseous finding. Stable multilevel compression deformities. Uncomplicated appearing but partially visualized right femoral fixation hardware. IMPRESSION: Large bilateral pleural effusions, with bilateral lower lobe atelectasis. Infection in the lower lobe s is not excluded. Single loop of dilated jejunum, likely representing localized ileus. Early/partial obstruction could appear similarly. Colonic wall thickening, as can be seen with colitis. Moderate ascites. Diffuse edema of the subcutaneous fat and mesenteric fat. Reviewed, dictated and finalized at location K. PTIONAL STUDENT EDUCATION TEACHER IMPRESSION: Large bilateral pleural effusions, with bilateral lower lobe atelectasis. Infec tion in the lower lobes is not excluded. Single loop of dilated jejunum, likely representing localized ileus. Early/part ial obstruction could appear similarly. Colonic wall thickening, as can be seen with colitis. Moderate ascites. Diffuse edema of the subcutaneous fat and mesenteric fat.
--- NOTE | ~2024-11-05 | CT_ITS ---
EXAMINATION: CT abdomen pelvis wo con DATE: 12/10/2024 15:19 INDICATION: Liver abscess drainage TECHNIQUE: Computed tomography (CT) of the abdomen and pelvis was performed without intravenous contr ast. Automated exposure control and iterative reconstruction technique were employed. The dose-length product was 224.34 mGy-cm. COMPARISON: 12/02/2024 FINDINGS: Decrease small bilateral pleural effusions, left greater than right. There is dependent compressive a telectasis in the bilateral lower lobes. There are also tree-in-bud opacities in the bilateral lower lobes consistent with pneumonia with some associated subsegmental bronchial mucous plugging. Heart si ze is normal. No pericardial effusion. 1.3 cm cyst in the left hepatic lobe. Multiple hepatic and spl enic calcifications consistent with old granulomatous disease. Three-phase abscess drains have been p laced into a subcapsular fluid collections along the lateral right hepatic lobe and the posterior lat eral spleen. The splenic fluid collection has decreased in size to 5 x 5 x 1.5 cm. The hepatic subcap sular collection has decreased to 7.5 x 5.0 x 1 cm. Gallbladder, bilateral adrenal glands and kidneys are normal. There are a few dystrophic calcific lesions at the body the pancreas which could represe nt sequela of chronic pancreatitis. No dilated bowel to suggest obstruction. There is moderate amount of nonloculated ascites scattered throughout the abdomen and pelvis. Bladder is normal. Prostatomega ly. No free intraperineal gas. No pathologically enlarged abdominal or pelvic lymphadenopathy althoug h evaluation is limited on the noncontrast imaging due to diffuse edema in the body wall and intra-ab dominal/pelvic fat. Mild lumbar levoscoliosis with moderate spondylosis and chronic L1, L2 and L3 [address] st fractures. Antegrade intramedullary yeimi and interlocking femoral neck dynamic compression screw fi xation at the proximal right femur. IMPRESSION: 1. Percutaneous abscess drains within a subcapsular fluid collections at the spleen and liver, both o f which approximately half the volume of the prior study. 2. Persistent anasarca with extensive soft tissue edema and 3. Decrease in size of small bilateral pleural effusions. 4. Tree-in-bud opacities in the bilateral lower lobes consistent with pneumonia. Moderate amount of a scites throughout the abdomen and pelvis. Reviewed, dictated and finalized at location A. DRILL OPERATOR HELPER IMPRESSION: 1. Percutaneous abscess drains within a subcapsular fluid collections at the sp giana and liver, both of which approximately half the volume of the prior study. 2. Persistent anasarca with extensive soft tissue edema and 3. Decrease in size of small bilateral pleural effusions. 4. Tree-in-bud opacities in the bilateral lower lobes consistent with pneumonia . Moderate amount of ascites throughout the abdomen and pelvis.
--- NOTE | ~2024-11-05 | XR_ITS ---
XR abdomen gastric tube insert Ordering provider: Hernesto Modi MD History: . NGT . Comparison: None. FINDINGS/impression: BOWEL: Nasogastric tube is seen with the tip in the distal stomach. Nonobstructive bowel gas pattern. Postoperative changes in the anterior abdominal wall. Right drainage tube is seen. Reviewed, dictated and finalized at location A. ACCOUNTS REPRESENTATIVE
--- NOTE | ~2024-11-05 | CT_ITS ---
EXAMINATION: CT chest abdomen pelvis wo con DATE: 11/10/2024 10:36 INDICATION: Perforated gastric ulcer. TECHNIQUE: Computed tomography (CT) of the chest, abdomen, and pelvis was performed without intraveno us contrast. Automated exposure control and iterative reconstruction technique were employed. The dos e-length product was 346.58 mGy-cm. COMPARISON: CT chest, abdomen, and pelvis 11/05/2024 FINDINGS: CHEST CT: There is mild emphysema. There are small pleural effusions. There is dependent basilar atelectasis bi laterally. Calcified pulmonary nodules and calcified hilar lymph nodes are consistent with old granul omatous disease. The heart size is normal. There is a trace pericardial effusion. The nasogastric tub e tip is in the stomach. There is severe cervical spondylosis. There are multiple chronic vertebral b shikha fractures. ABDOMEN/PELVIS CT: There is a small volume of ascites with mass effect on right lateral aspect of the liver. There is a 10 mm cyst in the liver. Calcifications in the liver and spleen are consistent with old granulomatous disease. The gallbladder is contracted. There is a surgical drain adjacent to the stomach. Skin stap les are noted. There is a Shen catheter in expected position. There is wall thickening of the descen ding and sigmoid colon and rectum. The appendix is not visualized. There are foci of free intraperito ramona gas, consistent with recent surgery. There are no pathologically enlarged lymph nodes. There is a healed fracture of proximal right femur with internal fixation. There is severe lumbar spondylosis. There is a chronic burst fractures of L1, L2, and L3. IMPRESSION: 1. Small volume of ascites with mass effect on right lateral aspect of the liver, likely an exudate. 2. Small pleural effusions. 3. Wall thickening of the descending and sigmoid colon and rectum, consistent with colitis versus int erstitial edema. Reviewed, dictated and finalized at location A. H CHEMIST IMPRESSION: 1. Small volume of ascites with mass effect on right lateral aspect of the live r, likely an exudate. 2. Small pleural effusions. 3. Wall thickening of the descending and sigmoid colon and rectum, consistent w ith colitis versus interstitial edema.
--- NOTE | ~2024-11-05 | XR_ITS ---
EXAMINATION: XR abdomen gastric tube insert DATE: 11/05/2024 20:21 INDICATION: Orogastric tube placement. TECHNIQUE: A supine view of the abdomen was obtained. COMPARISON: None. FINDINGS: The lower abdomen is excluded. There is lucency in the abdomen. The endotracheal tube tip i s 6.3 cm above the aditya. The nasogastric tube tip is in the esophagus. IMPRESSION: 1. Nasogastric tube tip in the distal esophagus. 2. Lucency in the abdomen suspicious for free intraperitoneal gas. An upright or left lateral decubit us view of the abdomen is recommended. Reviewed, dictated and finalized at location A. MACHINE TENDER STARCH SPRAYING IMPRESSION: 1. Nasogastric tube tip in the distal esophagus. 2. Lucency in the abdomen suspicious for free intraperitoneal gas. An upright o r left lateral decubitus view of the abdomen is recommended.
--- NOTE | ~2024-11-05 | XR_ITS ---
Portable chest x-ray Comparison: 11/08/2024 Clinical History: Respiratory failure Findings: NG tube in satisfactory position. Small bilateral pleural effusions are present with mild pulmonary edema pattern. Cardiomediastinal silhouette is stable. Bones and soft tissues are unremark able. Impression: Small bilateral pleural effusions and mild bibasilar pulmonary edema. NG tube in place. Reviewed, dictated and finalized at location . COMPOSER Impression: Small bilateral pleural effusions and mild bibasilar pulmonary edema. NG tube in place.
--- NOTE | ~2024-11-05 | CT_ITS ---
EXAMINATION: CT guide absc cath placement DATE: 12/05/2024 15:12 INDICATION: Subcapsular liver abscess. TECHNIQUE: The procedure including the risks, benefits, and alternatives was discussed with the patie nt. Risks discussed included bleeding and infection. The patient understood the risks and benefits an d agreed to proceed. The skin overlying the right chest was prepped and draped in usual sterile fash ion. Anesthetic was administered with 1% lidocaine subcutaneously. An 18 gauge trochar needle was in serted into the subcapsular liver abscess with CT guidance. The needle was exchanged over a wire for 5 Welsh and 7 Welsh dilators and then for an 8.5 Welsh pigtail catheter. The catheter was stitched to the skin, and a sterile dressing was applied. The mA was adjusted according to patient size. Iter ative reconstruction technique was employed. The dose-length product was 277.06 mGy-cm. There were no immediate complications. FINDINGS: CT images demonstrate the catheter within the subcapsular liver abscess. 2 mL fluid was asp irated for testing. There are moderate-sized pleural effusions. There is a moderate volume of ascites . IMPRESSION: 1. Successful CT-guided subcapsular liver abscess drainage. 2. 2 mL opaque, moore fluid was sent for aerobic and anaerobic cultures. 3. Moderate-sized pleural effusions. 4. Moderate volume of ascites. Consider peritoneal drain placement. Reviewed, dictated and finalized at location A. LE APPLICATION TESTER
--- NOTE | ~2024-11-05 | CT_ITS ---
EXAMINATION: CT guide absc cath placement DATE: 12/05/2024 15:11 INDICATION: Subcapsular splenic abscess. TECHNIQUE: The procedure including the risks, benefits, and alternatives was discussed with the patie nt. Risks discussed included bleeding and infection. The patient understood the risks and benefits an d agreed to proceed. The skin overlying the left chest was prepped and draped in usual sterile fashi on. Anesthetic was administered with 1% lidocaine subcutaneously. An 18 gauge trochar needle was ins erted into the subcapsular splenic abscess with CT guidance. The needle was exchanged over a wire for 6 Puerto [place]ican and 8 Puerto Rican dilators and then for an 8.5 [place]ican pigtail catheter. The catheter was stitche d to the skin, and a sterile dressing was applied. The mA was adjusted according to patient size. Ite rative reconstruction technique was employed. The dose-length product was 391.88 mGy-cm. There were n o immediate complications. FINDINGS: CT images demonstrate the catheter within the subcapsular splenic abscess. 2 mL fluid was a spirated for testing. There are moderate-sized pleural effusions. There is a moderate volume of ascit es. IMPRESSION: 1. Successful CT-guided subcapsular splenic abscess drainage. 2. 2 mL opaque, moore fluid was sent for aerobic and anaerobic cultures. 3. Moderate-sized pleural effusions. 4. Moderate volume of ascites. Consider peritoneal drain placement. Reviewed, dictated and finalized at location A. BREAK CUTTER
--- NOTE | ~2024-11-05 | XR_ITS ---
EXAMINATION: XR chest 1V portable Exam Date/Time: 11/21/2024 11:18 FOLLOW UP MANAGER HISTORY: Hypoxia Comparison: 11/11/2024. RESULT: Lines, tubes, and devices: None. Lungs and pleura: Graded bibasilar opacities. Mild-moderate bilateral costophrenic angle blunting. Cardiomediastinal silhouette: Stable. Other: No acute osseous or upper abdominal finding. IMPRESSION: Moderate bilateral pleural effusions, likely with bibasilar atelectasis. Infection not excluded. Reviewed, dictated and finalized at location K. OW UP MANAGER IMPRESSION: Moderate bilateral pleural effusions, likely with bibasilar atelectasis. Infect ion not excluded.
--- NOTE | ~2024-11-05 | XR_ITS ---
EXAMINATION: XR chest 1V portable DATE: 11/23/2024 12:11 INDICATION: Hypoxia. TECHNIQUE: A single frontal view of the chest was obtained. COMPARISON: Chest view 11/21/2024 FINDINGS: There are moderate-sized pleural effusions. There are airspace opacities in the mid and low er lung zones. No pneumothorax. The heart size is normal. Skin chencho are noted. Partially visualize d is an abdominal drain. IMPRESSION: 1. Moderate-sized pleural effusions with slight worsening. 2. Stable airspace opacities in the mid and lower lung zones, consistent with atelectasis versus pneu monia. Reviewed, dictated and finalized at location A. ROOM ASSOCIATE IMPRESSION: 1. Moderate-sized pleural effusions with slight worsening. 2. Stable airspace opacities in the mid and lower lung zones, consistent with a telectasis versus pneumonia.
--- NOTE | 2024-11-05 19:34 | ECG_ITS ---
Test Date: 2024-11-05 19:50:24 Measurements Intervals Bieber Rate: 77 P: 78 NC: 150 QRS: 93 QRSD: 100 T: 63 QT: 399 QTc: 452 Interpretive Statements SINUS RHYTHM WITH FREQUENT SUPRAVENTRICULAR PREMATURE COMPLEXES BORDERLINE RIGHT AXIS DEVIATION [QRS AXIS > 90] NONSPECIFIC T-WAVE ABNORMALITY ABNORMAL RHYTHM ECG Compared to ECG 11/03/2024 22:51:28 Possible ischemia no longer present T-wave abnormality still present Electronically Signed On 11-05-2024 21:24:51 AMBULANCE DRIVER by Toña Owen M.D.
[2024-11-05] MEDS: SODIUM CHLORIDE 0.9% IV 1,000 ML 999 ML IV CONT ×2 (19:40)
[2024-11-05 19:52] LABS: Hematocrit 47.5 % (42.0-52.0); Hemoglobin 15.5 g/dL (14.0-18.0); Mean Corpuscular HGB Conc 32.6 g/dl (32-36); Mean Corpuscular Hemoglobin 30.2 pg (26-34); Mean Corpuscular Volume 92.4 fl (80-100); Mean Platelet Volume 10.3 fl (7.4-10.4); Platelet Count Result 375 k/mm3 (150-375); Red Blood Count 5.14 M/mm3 (4.6-6.20); Red Cell Distribution Width 14.8 % (11.5-14.5); White Blood Count 12.1 K/mm3 (4.5-10.0)
[2024-11-05 20:03] LABS: Alveolar/Arterial O2 Gradient 505.6 mmHg; Base Excess ABG -11.5 mEq/l (+/-2.0); Fractional Inspired Oxygen 100 %; HCO3 ABG 15.1 mEq/l (22.0-26.0); Oxygen Content ABG 21.6 %vol (16.0-22.0); Oxygen Saturation ABG 98.9 % (95.0-100.0); Oxyhemoglobin 98.3 % THb (90.0-100.0); PCO2 ABG 36.7 mmHg (35.0-45.0); PO2 ABG 170.7 mmHg (80.0-100.0); PO2 FiO2 Ratio Arterial Blood 1.71 %; Total Hemoglobin 15.4 g/dL (12.0-18.0)
[2024-11-05 20:06] LABS: Arterial Blood Gas PEEP 5 cmH2O; Arterial Blood Gas Tidal Volume 450 ml; Arterial Blood Gas Vent Mode CMV; Arterial Blood Gas Ventilator rate 18 /MIN; Device VENTILATOR; Modified Allen's Test Pass; Site Drawn LEFT RADIAL; pH ABG 7.233 (7.350-7.450)
[2024-11-05 20:07] LABS: Ethanol < 10 mg/dL (<10)
[2024-11-05 20:10] LABS: Lactic Acid Reflex 6.9 mmol/L (0.7-2.0)
[2024-11-05 20:11] LABS: Albumin Level 3.1 g/dL (3.5-5.1); Alkaline Phosphatase 75 U/L (38-126); Anion Gap 10 mmol/L (4-12); Aspartate Amino Transferase 23 U/L (17-59); Bilirubin,Total 0.5 mg/dL (0.2-1.3); Blood Urea Nitrogen 39 mg/dL (9-20); Calcium 8.5 mg/dL (8.4-10.2); Carbon Dioxide 18 mmol/L (22-30); Chloride 109 mmol/L (98-107); Estimated CRCL calculation 24 ml/min; Estimated Glomerular Filt Rate 33; Glucose 117 mg/dL (65-110); INR 1.5; Lipase 122 U/L (23-300); Magnesium 2.4 mg/dL (1.6-2.3); Potassium 3.7 mmol/L (3.4-5.0); Prothrombin Time 18.5 Seconds (11.1-14.7); Sodium 137 mmol/L (137-145)
[2024-11-05] MEDS: FENTANYL 2,500MCG/NS250ML(*CRX 2,500 MCG/250 ML BAG IV CONT (20:11)
[2024-11-05 20:12] LABS: Partial Thromboplastin Time 32.7 Seconds (22.3-36.8)
[2024-11-05] MEDS: MIDAZOLAM 100MG/NS 100ML(*CRX) 100 MG/100 ML BAG IV CONT (20:13)
[2024-11-05 20:15] LABS: Alanine Aminotransferase 19 U/L (6-50)
[2024-11-05 20:16] LABS: Troponin I < 0.012 ng/mL (0.000-0.034)
[2024-11-05 20:22] LABS: Band Neutrophils Percent 23 % (0-6); Lymphocytes Absolute Manual 0.96 K/mm3 (1.1-4.5); Metamyelocytes Percent 1 %; Monocytes Absolute Manual 0.72 K/mm3 (0.1-0.90); Monocytes Percent Manual 6 % (3-9); Neutrophils Absolute Manual 10.28 K/mm3 (1.3-6.7); Neutrophils Percent Manual 62 % (46-73); Platelet Estimate Adequate (Adequate); Total Cells Counted 100
[2024-11-05 20:23] LABS: Schistocytes None Seen
--- NOTE | 2024-11-05 20:25 | ED_ITS ---
HPI - General Adult General Chief complaint: Shortness of Breath/Dyspnea Stated complaint: resp arrest-intubated Time Seen by Provider: 11/05/24 19:34 History of Present Illness HPI narrative: Patient 69-year-old gentleman who presents emergency department with chief complaint of respiratory arrest. Patient was discharged from the hospital approximately 1 hour prior to arrival the patient was found by EMS gasping for breath and altered mental status. EMS intubated the patient in the field and brought the patient in the emergency department. History is limited due to patient being intubated Related Data Home Medications ?Medication ?Instructions ?Recorded ?Confirmed ?Last Taken ?Type No Home Medications 07/20/24 11/04/24 Unknown History Allergies Allergy/AdvReac Type Severity Reaction Status Date / Time No Known Allergies Allergy Verified 11/04/24 04:19 Review of Systems 2 Review of Systems: A 10 system review of systems was completed on the patient and is negative except for what is stated in the HPI. Nursing and ancillary documentation was reviewed. [facility] Past Medical History Medical History (Updated 11/05/24 @ 21:43 by Jono Martinez Jr., CRNA) Sepsis Free intraperitoneal air Gastroenteritis Dehydration EtOH dependence Hoarseness or changing voice Nicotine abuse Bladder cancer Surgical History Surgical History History of bladder surgery Family History Family History Father Acute myocardial infarction Chronic obstructive pulmonary disease Congestive heart failure Mother Acute myocardial infarction Asthma Chronic obstructive pulmonary disease Congestive heart failure Sibling History of blood clots Diabetes mellitus Hypertension Social History Social History Smoking packs per day: 2.5 Smoking cigarettes per day: 50.0 Years smoked: 57 Smoking pack-years: 142.50 Smoking status: Former smoker Tobacco type: cigarettes Second hand tobacco smoke exposure: Yes Alcohol intake: current Drinks per week: 6 Alcohol use details: Patient reports drinking 1-2 times monthly and drinking approximately 6 beers at a time. Substance use: never Substance use type: does not use Do You Feel Safe in your Home?: Yes Lack of Transportation: No Lack of Food: Never True Current Housing: I Have Housing Concerned About Future Housing: No Difficulty Paying Gas/Electric Bills: No Difficulty Paying for Meds: No Currently Unemployed: No Education: Decline to Answer Difficulty w/ Childcare or Family Care: No Spiritual care concerns: No Exam 2 Narrative: GENERAL: ill-appearing, thin, and in no acute distress. HEAD: Normocephalic, atraumatic. EYES: PERRLA . ENT: Nares clear, no rhinorrhea or epistaxis. Mucous membranes moist. endotracheal tube present in the oropharynx NECK: Supple. CHEST: Clear to auscultation. No respiratory distress. HEART: Regular rate and rhythm. No murmur heard. Normal peripheral pulses. ABDOMEN: Soft, abdomen is firm to touch distended, normal active bowel sounds. EXTREMITIES: Normal range of motion. No edema. SKIN: Warm, dry, no rash. NEURO: No focal deficits. sedated and intubated. PSYCH: unable to test. Course Vital Signs Vital signs: Vital Signs Pulse Rate 77 11/05/24 19:33 Respiratory Rate 19 11/05/24 19:33 Blood Pressure 76/65 L 11/05/24 19:33 Temperature 36.2 C L 11/05/24 21:46 Pulse Rate 84 11/05/24 21:46 Respiratory Rate 18 11/05/24 21:46 Blood Pressure 133/80 11/05/24 21:46 Pulse Oximetry 100 11/05/24 21:50 Oxygen Delivery BiPAP 11/05/24 21:50 Fraction of Inspired Oxygen 100 11/05/24 20:11 Procedures Central Line Placement Right Femoral: Central Line Date: 11/05/24 Central Line Time: 22:09 Performed Emergently - Given emergent patient condition, temporal constraints may have precluded informed consent.: Yes Time Out Performed: Yes Patient Placed on Monitor/Pulse Ox: Yes Max. Sterile Barrier Technique: Caps, large sterile sheet and hand hygiene Central Line Prep: 2% chlorhexidine scrub and sterile drapes applied Local Anesthetic: none Ultrasound Used for Placement: Yes Post Procedure: sutured in place, good blood return, all ports aspirated, flushed, capped and sterile dressing applied Patient Tolerated Procedure: well and no complications Medical Decision Making Vital Signs Vital Signs: Vital Signs Pulse Rate 77 11/05/24 19:33 Respiratory Rate 19 11/05/24 19:33 Blood Pressure 76/65 L 11/05/24 19:33 Temperature 36.2 C L 11/05/24 21:46 Pulse Rate 84 11/05/24 21:46 Respiratory Rate 18 11/05/24 21:46 Blood Pressure 133/80 11/05/24 21:46 Pulse Oximetry 100 11/05/24 21:50 Oxygen Delivery BiPAP 11/05/24 21:50 Fraction of Inspired Oxygen 100 11/05/24 20:11 Lab Data 11/05/24 19:44 11/05/24 19:44 Labs: Lab Results 11/05/24 11/05/24 11/05/24 Range/Units 19:44 19:55 20:01 WBC 12.1 H (4.5-10.0) K/mm3 RBC 5.14 (4.6-6.20) M/mm3 Hgb 15.5 (14.0-18.0) g/dL Hct 47.5 (42.0-52.0) % MCV 92.4 (80-100) fl MCH 30.2 (26-34) pg MCHC 32.6 (32-36) g/dl RDW 14.8 H (11.5-14.5) % Plt Count 375 (150-375) k/mm3 MPV 10.3 (7.4-10.4) fl Immature Gran % (Auto) Not Reportable Neut % (Auto) Not Reportable Lymph % (Auto) Not Reportable [place] % (Auto) Not Reportable Eos % (Auto) Not Reportable Baso % (Auto) Not Reportable Lymph # (Auto) Not Reportable [place] # (Auto) Not Reportable Eos # (Auto) Not Reportable Baso # (Auto) Not Reportable Abs Immat Gran (auto) Not Reportable Absolute Neuts (auto) Not Reportable Absolute Nucleated RBC Not Reportable Total Counted 100 Neutrophils % (Manual) 62 (46-73) % Band Neutrophils % 23 H (0-6) % Lymphocytes % (Manual) 8.0 L (18-44) % Monocytes % (Manual) 6 (3-9) % Metamyelocytes % 1 % Nucleated RBC % Not Reportable Abs Neuts (Manual) 10.28 H (1.3-6.7) K/mm3 Abs Lymphs (Manual) 0.96 L (1.1-4.5) K/mm3 Abs Monocytes (Manual) 0.72 (0.1-0.90) K/mm3 Platelet Estimate Adequate (Adequate) Schistocytes None seen PT 18.5 H (11.1-14.7) Seconds INR 1.5 APTT 32.7 (22.3-36.8) Seconds Minute Volume Not Reportable Vent Mode Cmv Tidal Volume 450 ml PEEP 5 cmH2O Peak Inspir Pressure Not Reportable Pressure Support Not Reportable Sodium 137 (137-145) mmol/L Potassium 3.7 (3.4-5.0) mmol/L Chloride 109 H (98-107) mmol/L Carbon Dioxide 18 L (22-30) mmol/L Anion Gap 10 (4-12) mmol/L BUN 39 H D (9-20) mg/dL Creatinine 2.00 H (0.7-1.3) mg/dL Estim Creat Clear Calc 24 ml/min Estimated GFR 33 L (59 - ) Glucose 117 H (65-110) mg/dL Lactic Acid 6.9 H* (0.7-2.0) mmol/L Calcium 8.5 (8.4-10.2) mg/dL Magnesium 2.4 H (1.6-2.3) mg/dL Total Bilirubin 0.5 (0.2-1.3) mg/dL AST 23 (17-59) U/L ALT 19 (6-50) U/L Alkaline Phosphatase 75 (38-126) U/L Troponin I < 0.012 (0.000-0.034) ng/mL Total Protein 6.0 L (6.3-8.2) g/dL Albumin 3.1 L (3.5-5.1) g/dL Lipase 122 (23-300) U/L Procalcitonin 17.7 ng/mL Urine Color Dark yellow (Yellow) Urine Appearance Cloudy H (Clear) Urine pH 5.0 (5.0-9.0) Ur Specific [place] 1.030 (1.001-1.035) Urine Protein 1+ H (Negative) mg/dL Urine Glucose (UA) Trace H (Negative) mg/dL Urine Ketones Trace H (Negative) mg/dL Ur Blood (Man) Negative (Negative) Urine Nitrate Negative (Negative) Urine Bilirubin 1+ H (Negative) Urine Urobilinogen 1.0 (<2.0) mg/dL Leukocyte Esterase Rfl Trace H (Negative) MARCO/UL Urine RBC 0-2 (0-2) /hpf Urine WBC 0-5 (0-3) /hpf Ur Squamous Epith Cells None seen (Few) /hpf Urine Bacteria None seen /hpf Urine Casts >20 Hyaline Casts Present (None) /lpf Urine Opiates Screen Positive A (Negative) Urine Methadone Screen Negative (Negative) Ur Barbiturates Screen Negative (Negative) Ur Phencyclidine Scrn Negative (Negative) Ur Amphetamine Screen Negative (Negative) U Benzodiazepines Scrn Positive A (Negative) Urine Cocaine Screen Negative (Negative) U Cannabinoids Screen Negative (Negative) Ethyl Alcohol < 10 (<10) mg/dL Influenza A (RT-PCR) Negative (Negative) Influenza B (RT-PCR) Negative (Negative) RSV (RT-PCR) Negative (Negative) SARS-CoV-2 RNA (RT-PCR) Negative (Negative) ABG Data ABG results: 11/05/24 19:55 Puncture Site Left radial ABG pH 7.233 L* ABG pCO2 36.7 ABG pO2 170.7 H ABG PO2/FiO2 Ratio 1.71 ABG HCO3 15.1 L ABG O2 Saturation 98.9 ABG O2 Content 21.6 ABG Base Excess -11.5 A-a Gradient 505.6 Oxyhemoglobin 98.3 Total Hemoglobin 15.4 O2 Delivery Device Ventilator O2 Liters/Min Not Reportable Vent Rate 18 FiO2 100 Discharge Plan Discharge Patient Language: Thai Prescriptions: No Action No Home Medications Time of Disposition: 22:11
[2024-11-05 20:26] LABS: Add Urine Microscopic? YES; Appearance Urine Cloudy (Clear); Bacteria Urine None Seen /hpf; Bilirubin Urine 1+ (Negative); Blood Urine Negative (Negative); Color Urine Dark Yellow (Yellow); Glucose Urine UA Trace mg/dL (Negative); Hyaline Casts Urine Present /lpf; Ketones Urine Trace mg/dL (Negative); Leukocyte Esterase Ur Trace LEU/UL (Negative); Nitrate Urine Negative (Negative); Non Pathogenic Casts >20; Protein Urine 1+ mg/dL (Negative); RBC Urine 0-2 /hpf (0-2); Squamous Epithelial Cell Urine None Seen /hpf (Few); WBC Urine 0-5 /hpf (0-3)
[2024-11-05 20:32] LABS: Amphetamine Screen Urine Negative (Negative); Barbiturate Screen Urine Negative (Negative); Benzodiazepines Screen Urine Positive (Negative); Cannabinoid Screen Urine Negative (Negative); Cocaine Screen Urine Negative (Negative); Methadone Screen Urine Negative (Negative); Opiate Screen Urine Positive (Negative); Phencyclidine Screen Urine Negative (Negative)
[2024-11-05 20:45] LABS: Influenza A QL RT-PCR Negative (Negative); Influenza B QL RT-PCR Negative (Negative); RSV RNA, RT-PCR Negative (Negative); SARS-CoV-2 RNA PCR Negative (Negative)
[2024-11-05 21:02] LABS: Procalcitonin 17.7 ng/mL
--- NOTE | 2024-11-05 21:40 | WPDANESEPP ---
Anes - Eval Pre Procedure Procedure: Exploratory Laparotomy Date/Time: 11/05/24 21:40 Surgeon: Michael Preop Diagnosis: Free air in bowel Pre Op Diagnosis: resp arrest-intubated Patient Data Age: 69 Gender: M Height: 1.78 m Weight: 54 kg Last Vital Signs Temp 97.6 F 11/05/24 20:08 Pulse 87 11/05/24 20:53 Resp 19 11/05/24 20:53 BP 143/88 H 11/05/24 20:26 Pulse Ox 100 11/05/24 20:57 O2 Del Method CPAP 11/05/24 20:57 FiO2 100 11/05/24 20:11 Allergies Allergy/AdvReac Type Severity Reaction Status Date / Time No Known Allergies Allergy Verified 11/04/24 04:19 Home Medications ?Medication ?Instructions ?Recorded ?Confirmed ?Type No Home Medications 07/20/24 11/04/24 History Laboratory Tests 11/05/24 11/05/24 11/05/24 19:44 19:55 20:01 WBC 12.1 H K/mm3 (4.5-10.0) RBC 5.14 M/mm3 (4.6-6.20) Hgb 15.5 g/dL (14.0-18.0) Hct 47.5 % (42.0-52.0) MCV 92.4 fl (80-100) MCH 30.2 pg (26-34) MCHC 32.6 g/dl (32-36) RDW 14.8 H % (11.5-14.5) Plt Count 375 k/mm3 (150-375) MPV 10.3 fl (7.4-10.4) Immature Gran % (Auto) Not Reportable Neut % (Auto) Not Reportable Lymph % (Auto) Not Reportable [place] % (Auto) Not Reportable Eos % (Auto) Not Reportable Baso % (Auto) Not Reportable Lymph # (Auto) Not Reportable [place] # (Auto) Not Reportable Eos # (Auto) Not Reportable Baso # (Auto) Not Reportable Abs Immat Gran (auto) Not Reportable Absolute Neuts (auto) Not Reportable Absolute Nucleated RBC Not Reportable Total Counted 100 Neutrophils % (Manual) 62 % (46-73) Band Neutrophils % 23 H % (0-6) Lymphocytes % (Manual) 8.0 L % (18-44) Monocytes % (Manual) 6 % (3-9) Metamyelocytes % 1 % Nucleated RBC % Not Reportable Abs Neuts (Manual) 10.28 H K/mm3 (1.3-6.7) Abs Lymphs (Manual) 0.96 L K/mm3 (1.1-4.5) Abs Monocytes (Manual) 0.72 K/mm3 (0.1-0.90) Platelet Estimate Adequate (Adequate) Schistocytes None seen PT 18.5 H Seconds (11.1-14.7) INR 1.5 APTT 32.7 Seconds (22.3-36.8) Puncture Site Left radial ABG pH 7.233 L* (7.350-7.450) ABG pCO2 36.7 mmHg (35.0-45.0) ABG pO2 170.7 H mmHg (80.0-100.0) ABG PO2/FiO2 Ratio 1.71 % ABG HCO3 15.1 L mEq/l (22.0-26.0) ABG O2 Saturation 98.9 % (95.0-100.0) ABG O2 Content 21.6 %vol (16.0-22.0) ABG Base Excess -11.5 mEq/l (+/-2.0) A-a Gradient 505.6 mmHg Oxyhemoglobin 98.3 % THb (90.0-100.0) Total Hemoglobin 15.4 g/dL (12.0-18.0) O2 Delivery Device Ventilator O2 Liters/Min Not Reportable Minute Volume Not Reportable Vent Rate 18 /MIN Vent Mode Cmv FiO2 100 % Tidal Volume 450 ml PEEP 5 cmH2O Peak Inspir Pressure Not Reportable Pressure Support Not Reportable Sodium 137 mmol/L (137-145) Potassium 3.7 mmol/L (3.4-5.0) Chloride 109 H mmol/L (98-107) Carbon Dioxide 18 L mmol/L (22-30) Anion Gap 10 mmol/L (4-12) BUN 39 H D mg/dL (9-20) Creatinine 2.00 H mg/dL (0.7-1.3) Estim Creat Clear Calc 24 ml/min Estimated GFR 33 L (59 - ) Glucose 117 H mg/dL (65-110) Lactic Acid 6.9 H* mmol/L (0.7-2.0) Calcium 8.5 mg/dL (8.4-10.2) Magnesium 2.4 H mg/dL (1.6-2.3) Total Bilirubin 0.5 mg/dL (0.2-1.3) AST 23 U/L (17-59) ALT 19 U/L (6-50) Alkaline Phosphatase 75 U/L (38-126) Troponin I < 0.012 ng/mL (0.000-0.034) Total Protein 6.0 L g/dL (6.3-8.2) Albumin 3.1 L g/dL (3.5-5.1) Lipase 122 U/L (23-300) Procalcitonin 17.7 ng/mL Urine Color Dark yellow (Yellow) Urine Appearance Cloudy H (Clear) Urine pH 5.0 (5.0-9.0) Ur Specific [place] 1.030 (1.001-1.035) Urine Protein 1+ H mg/dL (Negative) Urine Glucose (UA) Trace H mg/dL (Negative) Urine Ketones Trace H mg/dL (Negative) Ur Blood (Man) Negative (Negative) Urine Nitrate Negative (Negative) Urine Bilirubin 1+ H (Negative) Urine Urobilinogen 1.0 mg/dL (<2.0) Leukocyte Esterase Rfl Trace H MARCO/UL (Negative) Urine RBC 0-2 /hpf (0-2) Urine WBC 0-5 /hpf (0-3) Ur Squamous Epith Cells None seen /hpf (Few) Urine Bacteria None seen /hpf Urine Casts >20 Hyaline Casts Present /lpf (None) Urine Opiates Screen Positive A (Negative) Urine Methadone Screen Negative (Negative) Ur Barbiturates Screen Negative (Negative) Ur Phencyclidine Scrn Negative (Negative) Ur Amphetamine Screen Negative (Negative) U Benzodiazepines Scrn Positive A (Negative) Urine Cocaine Screen Negative (Negative) U Cannabinoids Screen Negative (Negative) Ethyl Alcohol < 10 mg/dL (<10) Influenza A (RT-PCR) Negative (Negative) Influenza B (RT-PCR) Negative (Negative) RSV (RT-PCR) Negative (Negative) SARS-CoV-2 RNA (RT-PCR) Negative (Negative) Patient hx anesthesia problems: none Family hx anesthesia problems: none Results Review: All pre-operative results and documents have been reviewed as part of the pre-operative evaluation. [facility] Past Medical History Medical History (Updated 11/05/24 @ 21:43 by Jono Martinez Jr., CRNA) Sepsis Free intraperitoneal air Gastroenteritis Dehydration EtOH dependence Hoarseness or changing voice Nicotine abuse Bladder cancer Surgical History Surgical History History of bladder surgery Family History Family History Father Acute myocardial infarction Chronic obstructive pulmonary disease Congestive heart failure Mother Acute myocardial infarction Asthma Chronic obstructive pulmonary disease Congestive heart failure Sibling History of blood clots Diabetes mellitus Hypertension Social History Social History Smoking packs per day: 2.5 Smoking cigarettes per day: 50.0 Years smoked: 57 Smoking pack-years: 142.50 Smoking status: Former smoker Tobacco type: cigarettes Second hand tobacco smoke exposure: Yes Alcohol intake: current Drinks per week: 6 Alcohol use details: Patient reports drinking 1-2 times monthly and drinking approximately 6 beers at a time. Substance use: never Substance use type: does not use Do You Feel Safe in your Home?: Yes Lack of Transportation: No Lack of Food: Never True Current Housing: I Have Housing Concerned About Future Housing: No Difficulty Paying Gas/Electric Bills: No Difficulty Paying for Meds: No Currently Unemployed: No Education: Decline to Answer Difficulty w/ Childcare or Family Care: No Spiritual care concerns: No Exam Day of Procedure 11/05/24 21:40 Patient weight: normal Heart: regular rate and rhythm (NSR with pVC's noted on ekg) Lungs: other (letty) Airway: other (intubated) Neurological: unresponsive
[2024-11-05] MEDS: PIPERACILLN/TAZ 3.375GM/NS50ML 3.375 GM/50 ML BAG IVPB (22:12)
--- NOTE | 2024-11-05 22:26 | P.HP_ITS ---
H&P: HPI History of Present Illness Date/Time: 11/05/24 22:26 Chief Complaint: perforated viscus, intra-abdominal sepsis Narrative: The patient is a 69-year-old male presenting to the emergency department in acute respiratory failure, intra-abdominal sepsis, perforated viscus. The patient was intubated prior to his arrival in the emergency department and all history is obtained via the chart. The patient was apparently discharged earlier today with complaints of epigastric abdominal pain. His prior CT scan was negative for acute pathology. Repeat imaging today in the emergency department is significant for free intraperitoneal air, intraperitoneal fluid all consistent with perforated viscus. The patient is noted to be quite hypotensive and tachycardic all represent intra-abdominal sepsis. Review of Systems Review of Systems: ROS unobtainable: Yes unobtainable due to endotracheal tube and unobtainable due to medical condition PMFSH Past Medical History Medical History Sepsis Free intraperitoneal air Gastroenteritis Dehydration EtOH dependence Hoarseness or changing voice Nicotine abuse Bladder cancer Surgical History Surgical History History of bladder surgery Family History Family History Father Acute myocardial infarction Chronic obstructive pulmonary disease Congestive heart failure Mother Acute myocardial infarction Asthma Chronic obstructive pulmonary disease Congestive heart failure Sibling History of blood clots Diabetes mellitus Hypertension Social History Social History Smoking packs per day: 2.5 Smoking cigarettes per day: 50.0 Years smoked: 57 Smoking pack-years: 142.50 Smoking status: Former smoker Tobacco type: cigarettes Second hand tobacco smoke exposure: Yes Alcohol intake: current Drinks per week: 6 Alcohol use details: Patient reports drinking 1-2 times monthly and drinking approximately 6 beers at a time. Substance use: never Substance use type: does not use Do You Feel Safe in your Home?: Yes Lack of Transportation: No Lack of Food: Never True Current Housing: I Have Housing Concerned About Future Housing: No Difficulty Paying Gas/Electric Bills: No Difficulty Paying for Meds: No Currently Unemployed: No Education: Decline to Answer Difficulty w/ Childcare or Family Care: No Spiritual care concerns: No Meds Home Medications and Allergies Home Medications ?Medication ?Instructions ?Recorded ?Confirmed ?Type No Home Medications 07/20/24 11/04/24 History Allergies Allergy/AdvReac Type Severity Reaction Status Date / Time No Known Allergies Allergy Verified 11/04/24 04:19 Vital Signs Vital Signs - 24 hr 11/05/24 19:33 11/05/24 20:08 11/05/24 20:11 Temperature 36.4 C Pulse Rate 77 78 80 Respiratory Rate 19 19 14 Blood Pressure 76/65 L 135/66 Pulse Oximetry 99 Oxygen Delivery Fraction of Inspired Oxygen 11/05/24 20:11 11/05/24 20:13 11/05/24 20:22 Temperature Pulse Rate 85 81 79 Respiratory Rate 14 22 H Blood Pressure 144/48 H Pulse Oximetry 98 Oxygen Delivery Mechanical Ventilation Fraction of Inspired Oxygen 100 11/05/24 20:26 11/05/24 20:53 11/05/24 20:53 Temperature Pulse Rate 81 86 87 Respiratory Rate 29 H 14 19 Blood Pressure 143/88 H Pulse Oximetry 100 Oxygen Delivery Fraction of Inspired Oxygen 11/05/24 20:57 11/05/24 21:32 11/05/24 21:46 Temperature 36.2 C L 36.2 C L Pulse Rate 79 84 Respiratory Rate 18 18 Blood Pressure 115/72 133/80 Pulse Oximetry 100 99 Oxygen Delivery CPAP Fraction of Inspired Oxygen 11/05/24 21:50 11/05/24 22:19 Temperature Pulse Rate 84 Respiratory Rate Blood Pressure Pulse Oximetry 100 98 Oxygen Delivery BiPAP Mechanical Ventilation Fraction of Inspired Oxygen 100 Exam Const: General: malnourished and thin Other: Intubated, sedated HENMT: Head: normal to inspection, normocephalic and atraumatic Eyes: General: appearance normal, both eyes and all related structures Neck: Neck: normal visual inspection and no lymphadenopathy Resp: Auscultation: diminished lung sounds Cardio: Rate: tachycardic Rhythm: regular rhythm GI: Inspection: distended GI Palp: Yes Firmness to palpation present (GI), Yes Guarding due to palpation present (GI) and Yes Rigid due to palpation Skin: General skin exam: normal color and no rashes or lesions noted Extrem: General: normal to inspection H&P: Results Labs Labs: Short CBC 11/05/24 Range/Units 19:44 WBC 12.1 H (4.5-10.0) K/mm3 Hgb 15.5 (14.0-18.0) g/dL Hct 47.5 (42.0-52.0) % Plt Count 375 (150-375) k/mm3 BMP 11/05/24 19:44 Sodium 137 Potassium 3.7 Chloride 109 H Carbon Dioxide 18 L BUN 39 H D Creatinine 2.00 H Glucose 117 H Calcium 8.5 Cardiac Enzymes 11/05/24 Range/Units 19:44 Troponin I < 0.012 (0.000-0.034) ng/mL Liver Function 11/05/24 Range/Units 19:44 Total Bilirubin 0.5 (0.2-1.3) mg/dL AST 23 (17-59) U/L ALT 19 (6-50) U/L Alkaline Phosphatase 75 (38-126) U/L Albumin 3.1 L (3.5-5.1) g/dL Urine 11/05/24 Range/Units 20:01 Urine Color Dark yellow (Yellow) Urine Appearance Cloudy H (Clear) Urine pH 5.0 (5.0-9.0) Ur Specific [place] 1.030 (1.001-1.035) Urine Protein 1+ H (Negative) mg/dL Urine Glucose (UA) Trace H (Negative) mg/dL Imaging CT scan - abdomen: My impression: free intraperitoneal air consistent with perforated viscus Assessment and Plan Assessment and plan (1) Perforated viscus: Code(s): R19.8 - Other specified symptoms and signs involving the digestive system and abdomen Status: Acute Assessment and Plan: OR for emergent exploratory laparotomy, continue volume resuscitation, IV antibiotics (2) Respiratory failure: Code(s): J96.90 - Respiratory failure, unspecified, unspecified whether with hypoxia or hypercapnia Status: Acute Assessment and Plan: intubated, sedated, further vent management per Anesthesia and ICU team (3) Sepsis associated hypotension: Code(s): A41.9 - Sepsis, unspecified organism; I95.9 - Hypotension, unspecified Status: Acute Assessment and Plan: see above, volume resuscitation, IV antibiotics
--- NOTE | 2024-11-05 22:35 | WPDHPUPDATE1 ---
History and Physical Update Update Date/Time: 11/05/24 22:35 History and Physical has been reviewed, including an updated exam of the patient. There are NO changes in the patient's condition. Risks, benefits, and alternatives have been discussed and questions answered. Patient agrees to proceed with procedure.
[2024-11-05 22:49] LABS: Reflex Lactic Acid Yes or No Add Lactic
[2024-11-05 23:22] LABS: MRSA (PCR) NOT DETECTED (NOT DETECTE)
--- NOTE | 2024-11-05 23:37 | PC.NURSE ---
Report received from KITTY Herrera.
--- NOTE | 2024-11-05 23:44 | P.OP_ITS ---
Procedure Note - Detailed Date of Procedure 11/05/24 Pre-op Diagnosis perforated viscus, intra-abdominal sepsis Post-op Diagnosis Other ( perforated gastric ulcer) Procedure Performed exploratory laparotomy, extensive lysis of adhesions, intra-abdominal washout, repair of perforated gastric ulcer with omental patch Surgeon Eveline Rodriguez MD Anesthesia General Indications 69-year-old male presenting to the emergency department with sepsis, respiratory failure. Workup in the emergency department including imaging, was significant for perforated viscus, intra-abdominal sepsis. Findings Perforated gastric ulcer, large amount of intra-abdominal succus Description of Procedure The patient was taken to the operating room and placed in the supine position. After adequate induction of general anesthesia, the patient was prepped and draped in the normal sterile fashion. A time-out was then done to verify the patient's identity, as well as the procedure being performed. I began by making a generous upper midline incision. This was carried down into the peritoneal cavity. Upon entering the peritoneal cavity, a large amount of free intraperitoneal air and intra-abdominal succus was evacuated. There was approximately 2 L of intra-abdominal succus that was quite foul-smelling and bilious. After washing out the abdomen. I began examining the upper abdomen, as this seemed to be the source of the perforation. Upon examination of the stomach, there was noted to be a large perforation in the antrum of the stomach near the pyloric channel. I then did an extensive lysis of adhesions to free th is area up and bring it into the operative field. I then was able to gain control of the perforation by closing this primarily with full-thickness interrupted 3-0 Vicryl sutures. Once this was adequately done, an NG tube was placed by Anesthesia and this was used to stent the repair. I then proceeded to free up a piece to allow us to make a Yaw patch over the primary repair. Once this was done the Yaw patch was secured using interrupted 3-0 silk sutures. I then placed a 15 Portuguese HARLEY drain in the right upper quadrant near the area of our repair. The HARLEY drain was brought out through an incision in the left upper abdomen. At this point I copiously washed out the abdominal cavity. No other pathology was noted in the abdomen. I then closed the fascia we looped 0 PDS suture x2. The skin was closed with skin chencho. Patient continues to be in critical condition and will be left intubated and transferred to the ICU. Estimated Blood Loss 50 Drains Yes Pathology Yes Complications No immediate complications Condition Critical Disposition ICU [facility] Billing Surgery - Charge Forward: Surgery Billing
--- NOTE | 2024-11-05 23:50 | ADMGEN ---
This patient, Rupert Lemos, was admitted to Intensive Care Unit-9. Patient/family oriented to hospital policies and general routines including ID bracelet, bed and alarms, visiting hours, pain management, procedures, bathroom and other care routines, personal items, smoking policy, room service/diet, and visiting hours. Information on how to activate the Rapid Response Team has been discussed. Patient/Family are encouraged to report perceived risks to care and to ask questions if they do not understand what they are told or what they should do.
[2024-11-06] VITALS (30 sets, daily range): BP systolic 109–166; BP diastolic 63–88; PULSE 77–123; RESP 18–25; TEMP 36.4–38.1; O2SAT 93–100; BMI 17.5
--- NOTE | 2024-11-06 00:12 | PM.IMHP ---
H&P: HPI History of Present Illness Date/Time: 11/06/24 00:12 Chief Complaint: perforated viscus Narrative: This is a 69-year-old male with past medical history significant for COPD/emphysema, tobacco dependence, alcohol dependence. Patient presented to the emergency room due to abdominal pain preliminary workup was essentially nonrevealing patient placed in observation discharge home today while on his way home patient became unresponsive patient intubated in the field and brought to the emergency room. Preliminary workup was significant for CT of abdomen and pelvis with perforated viscus. EXAMINATION: XR chest ET placement DATE: 11/05/2024 19:50 INDICATION: Intubation. TECHNIQUE: A single frontal view of the chest was obtained. COMPARISON: Chest view 07/20/2024, chest CT 11/03/2024 FINDINGS: There are lucencies and interstitial opacities in the lungs, consistent with emphysema. No pleural effusion or pneumothorax. The heart size is normal. The endotracheal tube tip is 4.5 cm above the aditya. IMPRESSION: 1. Emphysema. EXAMINATION: CT brain wo con DATE: 11/05/2024 20:44 INDICATION: Altered mental status. TECHNIQUE: Computed tomography (CT) of the head was performed without intravenous contrast. The mA was adjusted according to patient size. Iterative reconstruction technique was employed. The dose-length product was 756.67 mGy-cm. COMPARISON: Head CT 07/20/2024, neck CT 07/21/2024 FINDINGS: There are scattered areas of low attenuation in the cerebral white matter. There is no intracranial hemorrhage or acute infarction. There is a 3.2 x 1.4 cm extra-axial mass at the left petrous ridge, consistent with a meningioma. The ventricles are normal in size. There is mild mucosal thickening in the paranasal sinuses. The orbits are normal. The mastoid air cells are normal. IMPRESSION: 1. Moderate nonspecific cerebral white matter disease, which likely represents chronic small vessel ischemic disease. 2. 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 EXAMINATION: CT chest abdomen pelvis wo con DATE: 11/05/2024 20:44 INDICATION: Free intraperitoneal gas. TECHNIQUE: Computed tomography (CT) of the chest, abdomen, and pelvis was performed without intravenous contrast. Automated exposure control and iterative reconstruction technique were employed. The dose-length product was 350.61 mGy-cm. COMPARISON: CT 11/03/2024 FINDINGS: CHEST CT: There is mild emphysema. There are small pleural effusions. There are airspace opacities and groundglass opacities in the basilar right lower lobe, consistent with pneumonia. There is mild dependent atelectasis on the left. Calcified left lung nodules and calcified left hilar lymph nodes are consistent with old granulomatous disease. The endotracheal tube tip is in expected position. The nasogastric tube tip is at the gastroesophageal junction. The heart size is normal. There is a small pericardial effusion. There is chronic height loss of multiple vertebral bodies. There is severe cervical spondylosis and mild thoracic spondylosis. ABDOMEN/PELVIS CT: There is free intraperitoneal gas. There is a large volume of ascites. Calcifications in the liver and spleen are consistent with old granulomatous disease. There is a 8 mm cyst in the liver. The gallbladder, pancreas, adrenal glands, and kidneys are normal. The bladder is decompressed by a Shen catheter. There are no dilated loops of bowel. There are no pathologically enlarged lymph nodes. There is instrumentation of proximal right femur. There is severe lumbar spondylosis. There is chronic height loss of multiple vertebral bodies. IMPRESSION: 1. Free intraperitoneal gas, consistent with perforated viscus. I called this result to Dr. Woods. 2. Large volume of ascites. 3. Right lower lobe pneumonia. 4. Small pleural effusions. 5. Small pericardial effusion. 6. Nasogastric tube tip at the gastroesophageal junction. [facility] Past Medical History Medical History Sepsis Free intraperitoneal air Gastroenteritis Dehydration EtOH dependence Hoarseness or changing voice Nicotine abuse Bladder cancer Surgical History Surgical History History of bladder surgery Family History Family History Father Acute myocardial infarction Chronic obstructive pulmonary disease Congestive heart failure Mother Acute myocardial infarction Asthma Chronic obstructive pulmonary disease Congestive heart failure Sibling History of blood clots Diabetes mellitus Hypertension Social History Social History Smoking packs per day: 2.5 Smoking cigarettes per day: 50.0 Years smoked: 57 Smoking pack-years: 142.50 Smoking status: Former smoker Second hand tobacco smoke exposure: Yes Alcohol intake: current Drinks per week: 6 Alcohol use details: Patient reports drinking 1-2 times monthly and drinking approximately 6 beers at a time. Substance use: never Substance use type: does not use Do You Feel Safe in your Home?: Yes Lack of Transportation: No Lack of Food: Never True Current Housing: I Have Housing Concerned About Future Housing: No Difficulty Paying Gas/Electric Bills: No Difficulty Paying for Meds: No Currently Unemployed: No Education: Decline to Answer Difficulty w/ Childcare or Family Care: No Spiritual care concerns: No Meds Home Medications and Allergies Home Medications ?Medication ?Instructions ?Recorded ?Confirmed ?Type No Home Medications 07/20/24 11/06/24 History Allergies Allergy/AdvReac Type Severity Reaction Status Date / Time No Known Allergies Allergy Verified 11/04/24 04:19 Vital Signs Vital Signs - 24 hr 11/05/24 19:33 11/05/24 20:08 11/05/24 20:11 Temperature 97.6 F Pulse Rate 77 78 80 Respiratory Rate 19 19 14 Blood Pressure 76/65 L 135/66 Pulse Oximetry 99 Oxygen Delivery Fraction of Inspired Oxygen 11/05/24 20:11 11/05/24 20:13 11/05/24 20:22 Temperature Pulse Rate 85 81 79 Respiratory Rate 14 22 H Blood Pressure 144/48 H Pulse Oximetry 98 Oxygen Delivery Mechanical Ventilation Fraction of Inspired Oxygen 100 11/05/24 20:26 11/05/24 20:53 11/05/24 20:53 Temperature Pulse Rate 81 86 87 Respiratory Rate 29 H 14 19 Blood Pressure 143/88 H Pulse Oximetry 100 Oxygen Delivery Fraction of Inspired Oxygen 11/05/24 20:57 11/05/24 21:32 11/05/24 21:46 Temperature 97.2 F L 97.2 F L Pulse Rate 79 84 Respiratory Rate 18 18 Blood Pressure 115/72 133/80 Pulse Oximetry 100 99 Oxygen Delivery CPAP Fraction of Inspired Oxygen 11/05/24 21:50 11/05/24 22:19 Temperature Pulse Rate 84 Respiratory Rate Blood Pressure Pulse Oximetry 100 98 Oxygen Delivery BiPAP Mechanical Ventilation Fraction of Inspired Oxygen 100 H&P: Results Labs Labs: Short CBC 11/05/24 Range/Units 19:44 WBC 12.1 H (4.5-10.0) K/mm3 Hgb 15.5 (14.0-18.0) g/dL Hct 47.5 (42.0-52.0) % Plt Count 375 (150-375) k/mm3 BMP 12/16/24 19:44 Sodium 137 Potassium 3.7 Chloride 109 H Carbon Dioxide 18 L BUN 39 H D Creatinine 2.00 H Glucose 117 H Calcium 8.5 Cardiac Enzymes 11/05/24 Range/Units 19:44 Troponin I < 0.012 (0.000-0.034) ng/mL Liver Function 11/05/24 Range/Units 19:44 Total Bilirubin 0.5 (0.2-1.3) mg/dL AST 23 (17-59) U/L ALT 19 (6-50) U/L Alkaline Phosphatase 75 (38-126) U/L Albumin 3.1 L (3.5-5.1) g/dL Urine 11/05/24 Range/Units 20:01 Urine Color Dark yellow (Yellow) Urine Appearance Cloudy H (Clear) Urine pH 5.0 (5.0-9.0) Ur Specific [place] 1.030 (1.001-1.035) Urine Protein 1+ H (Negative) mg/dL Urine Glucose (UA) Trace H (Negative) mg/dL Assessment and Plan Assessment and plan (1) Sepsis associated hypotension: Code(s): A41.9 - Sepsis, unspecified organism; I95.9 - Hypotension, unspecified Status: Acute Assessment and Plan: Patient is status post up found to have perforated ulcer of the stomach follow General surgery recommendations patient currently on ventilator support continue vancomycin continue Zosyn continue to monitor patient in ICU (2) Respiratory failure: Code(s): J96.90 - Respiratory failure, unspecified, unspecified whether with hypoxia or hypercapnia Status: Acute Assessment and Plan: currently on ventilator support pulmonary toilet (3) Perforated viscus: Code(s): R19.8 - Other specified symptoms and signs involving the digestive system and abdomen Status: Acute Assessment and Plan: status post omental patch (4) EtOH dependence: Code(s): F10.20 - Alcohol dependence, uncomplicated Status: Acute Assessment and Plan: CIWA as needed (5) Abdominal pain: Qualifiers: Abdominal location: unspecified location Qualified Code(s): R10.9 - Unspecified abdominal pain Code(s): R10.9 - Unspecified abdominal pain Status: Acute Assessment and Plan: likely secondary to perforated ulcer (6) Acute hypoxic respiratory failure: Code(s): J96.01 - Acute respiratory failure with hypoxia Status: Acute Assessment and Plan: currently on ventilator support likely secondary to 1. In the setting of COPD/emphysema (7) Pneumonia: Code(s): J18.9 - Pneumonia, unspecified organism Status: Acute Assessment and Plan: patient is currently on vancomycin and Zosyn await cultures Hospitalist MIPS Advance Care Plan I have confirmed that the patient's Advanced Care Plan is present, code status is documented, or surrogate decision maker is listed in patient medical record.: Yes Medication Reconciliation I have utilized all available resources to obtain, update and review the patients current medications (includes all prescriptions, OTC, herbals, cannabis, and nutritional supplements).: Yes
[2024-11-06] MEDS: LACTATED RINGERS 1,000 ML 100 ML IV CONT (00:15)
--- NOTE | 2024-11-06 00:30 | PC.NURSE ---
2350 Patient arrived to ICU 9 via bed, belongings at bedside.
[2024-11-06 00:44] LABS: Lactic Acid 2.2 mmol/L (0.7-2.0)
[2024-11-06 00:56] LABS: Troponin I 0.014 ng/mL (0.000-0.034)
--- NOTE | 2024-11-06 01:02 | PC.NURSE ---
Admission complete via recall; unable to confirm with patient and/or family. RN left a message for person of contact, Matt Lemos, requesting call back for confirmation of patient history/home medications. No home medications identified from previous patient visit. Report to KITTY Jones.
[2024-11-06] MEDS: VANCOMYCIN 1,000 MG/NS 250 ML 1,000 MG/250 ML BAG 250 MG IVPB (01:12)
[2024-11-06] MEDS: PIPERACILLIN/TAZ 2.25G/NS 50ML 2.25 GM/50 ML BAG IVPB ×3 (05:27→17:11)
[2024-11-06 05:46] LABS: Hematocrit 46.2 % (42.0-52.0); Hemoglobin 15.1 g/dL (14.0-18.0); Mean Corpuscular HGB Conc 32.7 g/dl (32-36); Mean Corpuscular Volume 91.8 fl (80-100); Mean Platelet Volume 9.9 fl (7.4-10.4); Platelet Count Result 331 k/mm3 (150-375); Red Blood Count 5.03 M/mm3 (4.6-6.20); Red Cell Distribution Width 14.8 % (11.5-14.5); White Blood Count 7.8 K/mm3 (4.5-10.0)
[2024-11-06 05:58] LABS: Anion Gap 5 mmol/L (4-12); Blood Urea Nitrogen 42 mg/dL (9-20); Calcium 7.7 mg/dL (8.4-10.2); Carbon Dioxide 18 mmol/L (22-30); Chloride 114 mmol/L (98-107); Estimated CRCL calculation 24 ml/min; Estimated Glomerular Filt Rate 33; Glucose 74 mg/dL (65-110); Phosphorus 5.4 mg/dL (2.5-4.5); Potassium 4.2 mmol/L (3.4-5.0); Sodium 137 mmol/L (137-145)
[2024-11-06 06:03] LABS: Alveolar/Arterial O2 Gradient 472.1 mmHg; Base Excess ABG -8.6 mEq/l (+/-2.0); Carboxyhemoglobin 0.2 % THb (0-2.0); Fractional Inspired Oxygen 100 %; HCO3 ABG 17.4 mEq/l (22.0-26.0); Methemoglobin ABG 0.4 %THb (0-1.5); Oxygen Content ABG 22.4 %vol (16.0-22.0); Oxygen Saturation ABG 99.3 % (95.0-100.0); PCO2 ABG 37.9 mmHg (35.0-45.0); PO2 FiO2 Ratio Arterial Blood 2.03 %; Reduced Hemoglobin 0.4 %THb (0-5.0); Total Hemoglobin 15.8 g/dL (12.0-18.0)
[2024-11-06 06:11] LABS: Arterial Blood Gas Vent Mode CMV; Arterial Blood Gas Ventilator rate 18 /MIN; Device VENTILATOR; Modified Allen's Test Pass; Site Drawn LEFT RADIAL; pH ABG 7.279 (7.350-7.450)
[2024-11-06 06:12] LABS: Arterial Blood Gas PEEP 5 cmH2O; Arterial Blood Gas Tidal Volume 450 ml
[2024-11-06] MEDS: SODIUM BICARBONATE 8.4% 50 MEQ/50 ML SYRINGE 100 MEQ IV PUSH (06:49)
[2024-11-06] MEDS: CENTRAL LINE FLUSH 10 ML IV PUSH ×5 (06:50→20:08)
[2024-11-06 07:02] LABS: MRSA (PCR) NOT DETECTED (NOT DETECTE)
[2024-11-06 08:13] LABS: Glucose Point of Care 72 mg/dl (65-105)
[2024-11-06] MEDS: ALBUMIN HUMAN 25% 25 GM/100 ML 100 ML IVPB ×3 (08:13→20:06)
[2024-11-06] MEDS: CALCIUM GLUC 2,000 MG/NS 100ML 2,000 MG/100 ML BAG 100 MG IVPB (08:13)
[2024-11-06] MEDS: PANTOPRAZOLE SODIUM IV 40 MG VIAL IV PUSH ×2 (08:14→20:06)
[2024-11-06] MEDS: ENOXAPARIN 30 MG/0.3 ML SYRINGE SUB-Q (08:14)
[2024-11-06] MEDS: THIAMINE HCL 200 MG/2 ML VIAL 100 MG IV PUSH (08:14)
[2024-11-06] MEDS: FOLIC ACID 1 MG/0.2 ML INJ IV PUSH (08:14)
[2024-11-06] MEDS: SODIUM BICARBONATE 8.4% 150 MEQ in DEXTROSE 5% 1,000 ML 950 ML 100 MEQ IV CONT ×2 (08:41→18:50)
--- NOTE | 2024-11-06 09:29 | P.CONIN_ITS ---
Assessment and Plan Assessment and plan (1) Acute hypoxic respiratory failure: Code(s): J96.01 - Acute respiratory failure with hypoxia Status: Acute Assessment and Plan: Acute Respiratory failure secondary to sepsis, perforated gastric ulcer, general anaesthesia Continue full mechanical ventilation support to prevent hypoxemia/hypercarbia and end organ damage. ABG and ventilator settings reviewed. PCXR reviewed Low tidal volume ventilation strategy to prevent volutrauma Will attempt SBT when ready to wean. Bronchodilators (2) Sepsis: Code(s): A41.9 - Sepsis, unspecified organism Status: Acute Assessment and Plan: Sepsis secondary to right lower lobe pneumonia which is likely aspiration, perforated gastric ulcer and peritonitis Blood cultures ordered and pending Continue empiric Zosyn Management of perforated gastric ulcer as below Continue IV fluid At 25% albumin Patient not requiring any vasopressors at this time (3) Pneumonia: Code(s): J18.9 - Pneumonia, unspecified organism Status: Acute Assessment and Plan: CT scan shows right lower lobe pneumonia which is likely aspiration. Continue Zosyn (4) EtOH dependence: Code(s): F10.20 - Alcohol dependence, uncomplicated Status: Acute Assessment and Plan: Thiamine and folic acid ordered (5) COPD (chronic obstructive pulmonary disease): Code(s): J44.9 - Chronic obstructive pulmonary disease, unspecified Status: Acute Assessment and Plan: Not in exacerbation Bronchodilators ordered (6) Perforated gastric ulcer: Code(s): K25.5 - Chronic or unspecified gastric ulcer with perforation Status: Acute Assessment and Plan: Status post exploratory laparotomy, extensive lysis of adhesions, intra- abdominal washout, repair of perforated gastric ulcer with omental patch HARLEY drain placed Dressing on the surgical incision Management and feeding as per General surgery (7) DEBI (acute kidney injury): Code(s): N17.9 - Acute kidney failure, unspecified Status: Acute Assessment and Plan: DEBI likely secondary to sepsis hypotension, fluid shift and hypovolemia Continue IV fluids At 25% albumin CT scan does not show any hydronephrosis or obstruction Monitor urine output electrolytes and creatinine If creatinine does not improve will consult nephrology (8) Metabolic acidosis: Code(s): E87.20 - Acidosis, unspecified Status: Acute Assessment and Plan: Change IV fluids to bicarb Plan DVT prophylaxis -Lovenox Stress ulcer prophylaxis -IV PPI Nutrition - npo Code Status - Full Code Total Critical Care Time - 35 minutes Due to a high probability of clinically significant, life threatening deterioration, the patient required my highest level of preparedness to intervene emergently and I personally spent this critical care time directly and personally managing the patient. This critical care time included obtaining a history; examining the patient; pulse oximetry; ordering and review of studies; arranging urgent treatment with development of a management plan; evaluation of patient's response to treatment; frequent reassessment; and discussions with other providers. It was exclusive of separately billable procedures and treating other patients and teaching time. Please see Assessment and Plan section and the rest of the note for further information on patient assessment and treatment Want Ad Clerk Consult Note Consult date: 11/06/24 Reason for consult: Acute respiratory failure, sepsis, perforated viscus HPI: Rupert Lemos is a 69 year old male with past medical history of alcohol abuse, tobacco abuse who was recently admitted treated and discharged with chief complaint of abdominal pain return to the hospital on same day with recurrence of abdominal pain. Patient also had respiratory distress. Patient was intubated in the field and brought to the ER. In the ER a central line was placed in femoral vein. CT scan showed free air and perforated viscus and surgery was consulted. Patient was taken to the operating room emergently. Patient underwent exploratory laparotomy, extensive lysis of adhesions, intra- abdominal washout, repair of perforated gastric ulcer with omental patch. Patient was admitted to ICU for further evaluation management post surgery. Patient currently is sedated and intubated. History was obtained from chart review as patient unable to provide any further meaningful history. Review of Systems 2 Review of Systems: ROS unobtainable: Yes unobtainable due to endotracheal tube, unobtainable due to medical condition and unobtainable due to mental status ON LICENSE OF [facility] Past Medical History Medical History (Updated 11/06/24 @ 09:38 by Hernesto Modi MD) Sepsis Free intraperitoneal air Gastroenteritis Dehydration EtOH dependence Hoarseness or changing voice Nicotine abuse Bladder cancer Surgical History Surgical History History of bladder surgery Family History Family History Father Acute myocardial infarction Chronic obstructive pulmonary disease Congestive heart failure Mother Acute myocardial infarction Asthma Chronic obstructive pulmonary disease Congestive heart failure Sibling History of blood clots Diabetes mellitus Hypertension Social History Social History Smoking packs per day: 2.5 Smoking cigarettes per day: 50.0 Years smoked: 57 Smoking pack-years: 142.50 Smoking status: Former smoker Second hand tobacco smoke exposure: Yes Alcohol intake: current Drinks per week: 6 Alcohol use details: Patient reports drinking 1-2 times monthly and drinking approximately 6 beers at a time. Substance use: never Substance use type: does not use Do You Feel Safe in your Home?: Yes Lack of Transportation: No Lack of Food: Never True Current Housing: I Have Housing Concerned About Future Housing: No Difficulty Paying Gas/Electric Bills: No Difficulty Paying for Meds: No Currently Unemployed: No Education: Decline to Answer Difficulty w/ Childcare or Family Care: No Spiritual care concerns: No Meds Home Medications and Allergies Home Medications ?Medication ?Instructions ?Recorded ?Confirmed ?Type No Home Medications 07/20/24 11/06/24 History Allergies Allergy/AdvReac Type Severity Reaction Status Date / Time No Known Allergies Allergy Verified 11/04/24 04:19 Vital Signs Vital Signs - 24 hr 11/05/24 19:33 11/05/24 20:08 11/05/24 20:11 Temperature 36.4 C Pulse Rate 77 78 80 Respiratory Rate 19 19 14 Blood Pressure 76/65 L 135/66 Pulse Oximetry 99 Oxygen Delivery Fraction of Inspired Oxygen 11/05/24 20:11 11/05/24 20:13 11/05/24 20:22 Temperature Pulse Rate 85 81 79 Respiratory Rate 14 22 H Blood Pressure 144/48 H Pulse Oximetry 98 Oxygen Delivery Mechanical Ventilation Fraction of Inspired Oxygen 100 11/05/24 20:26 11/05/24 20:53 11/05/24 20:53 Temperature Pulse Rate 81 86 87 Respiratory Rate 29 H 14 19 Blood Pressure 143/88 H Pulse Oximetry 100 Oxygen Delivery Fraction of Inspired Oxygen 11/05/24 20:57 11/05/24 21:32 11/05/24 21:46 Temperature 36.2 C L 36.2 C L Pulse Rate 79 84 Respiratory Rate 18 18 Blood Pressure 115/72 133/80 Pulse Oximetry 100 99 Oxygen Delivery CPAP Fraction of Inspired Oxygen 11/05/24 21:50 11/05/24 22:19 11/05/24 23:50 Temperature Pulse Rate 84 91 Respiratory Rate 22 H Blood Pressure Pulse Oximetry 100 98 Oxygen Delivery BiPAP Mechanical Ventilation Fraction of Inspired Oxygen 100 11/05/24 23:50 11/05/24 23:54 11/05/24 23:55 Temperature 36.4 C Pulse Rate 91 89 90 Respiratory Rate 22 H 18 Blood Pressure 113/69 Pulse Oximetry 100 Oxygen Delivery Fraction of Inspired Oxygen 11/06/24 00:10 11/06/24 00:10 11/06/24 00:25 Temperature 36.4 C 36.5 C Pulse Rate 84 87 87 Respiratory Rate 18 18 Blood Pressure 136/86 138/70 Pulse Oximetry 99 100 100 Oxygen Delivery Mechanical Ventilation Fraction of Inspired Oxygen 100 11/06/24 00:40 11/06/24 00:55 11/06/24 01:15 Temperature 36.6 C 36.6 C 36.7 C Pulse Rate 89 95 101 H Respiratory Rate 18 18 18 Blood Pressure 163/77 H 166/63 H 147/69 H Pulse Oximetry 100 100 97 Oxygen Delivery Fraction of Inspired Oxygen 11/06/24 01:45 11/06/24 02:00 11/06/24 02:15 Temperature 36.8 C 36.8 C Pulse Rate 96 94 97 Respiratory Rate 18 18 Blood Pressure 144/78 H 153/88 H Pulse Oximetry 99 95 Oxygen Delivery Fraction of Inspired Oxygen 11/06/24 02:52 11/06/24 03:00 11/06/24 04:00 Temperature 36.9 C 37.0 C Pulse Rate 101 H 99 98 Respiratory Rate 18 21 H Blood Pressure 132/78 131/83 Pulse Oximetry 99 94 100 Oxygen Delivery Mechanical Ventilation Fraction of Inspired Oxygen 100 11/06/24 04:00 11/06/24 05:00 11/06/24 05:11 Temperature 37.1 C Pulse Rate 98 123 H 107 H Respiratory Rate 25 H Blood Pressure 137/70 Pulse Oximetry 100 99 Oxygen Delivery Mechanical Ventilation Fraction of Inspired Oxygen 100 11/06/24 06:00 11/06/24 06:00 11/06/24 07:00 Temperature 37.3 C 37.6 C Pulse Rate 101 H 101 H 95 Respiratory Rate 18 18 Blood Pressure 114/80 122/77 Pulse Oximetry 100 100 Oxygen Delivery Fraction of Inspired Oxygen 11/06/24 08:00 11/06/24 08:16 Temperature 37.6 C Pulse Rate 109 H 112 H Respiratory Rate 21 H Blood Pressure 109/79 Pulse Oximetry 93 96 Oxygen Delivery Mechanical Ventilation Fraction of Inspired Oxygen 70 Exam 2 Narrative: General: Pt is sedated, intubated and on mechanical ventilation Lungs/Chest: Trachea central Coarse BS B/L, No crackles or wheezing. Cardiac: RRR. Normal S1 S2. No murmurs Circulation: Abdomen: Decreased bowel sounds. HARLEY drain in place. Soft. Tender to palpation as patient grimaces on exam Extremities: No clubbing, cyanosis or edema. Warm : Shen in place Neurologic: Unable to assess due to sedation. Moves all 4 extremities to painful stimuli. PERRL Results Labs 11/06/24 05:31 11/06/24 05:31 Labs: Impressions Chest X-Ray 11/05/24 19:54 IMPRESSION: 1. Emphysema. Abdomen X-Ray 11/05/24 20:25 IMPRESSION: 1. Nasogastric tube tip in the distal esophagus. 2. Lucency in the abdomen suspicious for free intraperitoneal gas. An upright or left lateral decubitus view of the abdomen is recommended. Head CT 11/05/24 20:50 IMPRESSION: 1. Moderate nonspecific cerebral white matter disease, which likely represents chronic small vessel ischemic disease. 2. 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 Chest/Abdomen/Pelvis CT 11/05/24 20:55 IMPRESSION: 1. Free intraperitoneal gas, consistent with perforated viscus. I called this result to Dr. Woods. 2. Large volume of ascites. 3. Right lower lobe pneumonia. 4. Small pleural effusions. 5. Small pericardial effusion. 6. Nasogastric tube tip at the gastroesophageal junction. Chest X-Ray 11/06/24 08:12 IMPRESSION: Congestive jasvir with bilateral interstitial changes. Edema versus pneumonitis is not excluded. Bilateral basal pneumonia. Short CBC 11/05/24 11/06/24 Range/Units 19:44 05:31 WBC 12.1 H 7.8 (4.5-10.0) K/mm3 Hgb 15.5 15.1 (14.0-18.0) g/dL Hct 47.5 46.2 (42.0-52.0) % Plt Count 375 331 (150-375) k/mm3 BMP 11/05/24 11/06/24 19:44 05:31 Sodium 137 137 Potassium 3.7 4.2 Chloride 109 H 114 H Carbon Dioxide 18 L 18 L BUN 39 H D 42 H Creatinine 2.00 H 2.00 H Glucose 117 H 74 Calcium 8.5 7.7 L Cardiac Enzymes 11/05/24 11/06/24 Range/Units 19:44 00:22 Troponin I < 0.012 0.014 (0.000-0.034) ng/mL Liver Function 11/05/24 Range/Units 19:44 Total Bilirubin 0.5 (0.2-1.3) mg/dL AST 23 (17-59) U/L ALT 19 (6-50) U/L Alkaline Phosphatase 75 (38-126) U/L Albumin 3.1 L (3.5-5.1) g/dL Urine 11/05/24 Range/Units 20:01 Urine Color Dark yellow (Yellow) Urine Appearance Cloudy H (Clear) Urine pH 5.0 (5.0-9.0) Ur Specific [place] 1.030 (1.001-1.035) Urine Protein 1+ H (Negative) mg/dL Urine Glucose (UA) Trace H (Negative) mg/dL Quality VTE Prophylaxis VTE prophylaxis: mechanical ordered and pharmacologic ordered Hospitalist MIPS Advance Care Plan I have confirmed that the patient's Advanced Care Plan is present, code status is documented, or surrogate decision maker is listed in patient medical record.: Yes Medication Reconciliation I have utilized all available resources to obtain, update and review the patients current medications (includes all prescriptions, OTC, herbals, cannabis, and nutritional supplements).: Yes
--- NOTE | 2024-11-06 11:06 | PM.PNGS ---
Progress Note: A&P Assessment and Plan (1) Perforated viscus: Code(s): R19.8 - Other specified symptoms and signs involving the digestive system and abdomen Status: Acute Assessment and Plan: S/p ex lap, adhesiolysis, washout, and repair of perforated gastric ulcer with omental patch. He remains intubated and sedated in ICU. Continue NG tube to low int suction, bowel rest, and IV fluids Continue IV antibiotics (2) Respiratory failure: Code(s): J96.90 - Respiratory failure, unspecified, unspecified whether with hypoxia or hypercapnia Status: Acute Assessment and Plan: Vent management/weaning per Transplant Immunologist. (3) Sepsis associated hypotension: Code(s): A41.9 - Sepsis, unspecified organism; I95.9 - Hypotension, unspecified Status: Acute Assessment and Plan: Improved s/p source control. BP improved, not on any vasopressors. Continue critical care management, IV antibiotics. Plan I have discussed the patient's case and plan of care with Dr. Rodriguez. Subjective Subjective Date/Time Seen: 11/06/24 11:06 Post Op day: 1 (Exploratory laparotomy, extensive adhesiolysis, intra-abdominal washout, repair of perforated gastric ulcer with omental patch) Interval history: Patient intubated and sedated in the ICU. He has an NG tube in place. He is not on any vasopressors. Review of Systems Review of Systems: ROS unobtainable: Yes unobtainable due to endotracheal tube Exam Const: General: ill appearing Orientation/consciousness: patient obtunded (Intubated) GI: Inspection: incision (Gauze dressing dry and intact) and other (HARLEY drain with scant serous output) GI Palp: Yes Soft to palpation and Yes Other GI palpation findings present (Exam limited as patient is intubated and sedated) Auscultation: Hypoactive bowel sounds present Urinary Catheter: Urinary Catheter: patent and draining Objective Data Vital Signs Vital Signs: Vital Signs - 24 hr 11/05/24 19:33 11/05/24 20:08 11/05/24 20:11 Temperature 97.6 F Pulse Rate 77 78 80 Respiratory Rate 19 19 14 Blood Pressure 76/65 L 135/66 Pulse Oximetry 99 Oxygen Delivery Fraction of Inspired Oxygen 11/05/24 20:11 11/05/24 20:13 12/16/24 20:22 Temperature Pulse Rate 85 81 79 Respiratory Rate 14 22 H Blood Pressure 144/48 H Pulse Oximetry 98 Oxygen Delivery Mechanical Ventilation Fraction of Inspired Oxygen 100 11/05/24 20:26 11/05/24 20:53 11/05/24 20:53 Temperature Pulse Rate 81 86 87 Respiratory Rate 29 H 14 19 Blood Pressure 143/88 H Pulse Oximetry 100 Oxygen Delivery Fraction of Inspired Oxygen 11/05/24 20:57 11/05/24 21:32 11/05/24 21:46 Temperature 97.2 F L 97.2 F L Pulse Rate 79 84 Respiratory Rate 18 18 Blood Pressure 115/72 133/80 Pulse Oximetry 100 99 Oxygen Delivery CPAP Fraction of Inspired Oxygen 11/05/24 21:50 11/05/24 22:19 11/05/24 23:50 Temperature Pulse Rate 84 91 Respiratory Rate 22 H Blood Pressure Pulse Oximetry 100 98 Oxygen Delivery BiPAP Mechanical Ventilation Fraction of Inspired Oxygen 100 11/05/24 23:50 11/05/24 23:54 11/05/24 23:55 Temperature 97.6 F Pulse Rate 91 89 90 Respiratory Rate 22 H 18 Blood Pressure 113/69 Pulse Oximetry 100 Oxygen Delivery Fraction of Inspired Oxygen 11/06/24 00:01 11/06/24 00:01 11/06/24 00:10 Temperature Pulse Rate 89 84 Respiratory Rate 18 Blood Pressure Pulse Oximetry 100 99 Oxygen Delivery Mechanical Ventilation Mechanical Ventilation Fraction of Inspired Oxygen 100 100 100 11/06/24 00:10 11/06/24 00:25 11/06/24 00:40 Temperature 97.6 F 97.7 F 97.8 F Pulse Rate 87 87 89 Respiratory Rate 18 18 18 Blood Pressure 136/86 138/70 163/77 H Pulse Oximetry 100 100 100 Oxygen Delivery Fraction of Inspired Oxygen 11/06/24 00:55 11/06/24 01:15 11/06/24 01:45 Temperature 97.9 F 98.0 F 98.3 F Pulse Rate 95 101 H 96 Respiratory Rate 18 18 18 Blood Pressure 166/63 H 147/69 H 144/78 H Pulse Oximetry 100 97 99 Oxygen Delivery Fraction of Inspired Oxygen 11/06/24 02:00 11/06/24 02:15 11/06/24 02:52 Temperature 98.3 F Pulse Rate 94 97 101 H Respiratory Rate 18 Blood Pressure 153/88 H Pulse Oximetry 95 99 Oxygen Delivery Mechanical Ventilation Fraction of Inspired Oxygen 100 12/17/24 03:00 11/06/24 04:00 11/06/24 04:00 Temperature 98.4 F 98.6 F Pulse Rate 99 98 98 Respiratory Rate 18 21 H Blood Pressure 132/78 131/83 Pulse Oximetry 94 100 Oxygen Delivery Fraction of Inspired Oxygen 11/06/24 04:00 11/06/24 04:00 11/06/24 05:00 Temperature 98.8 F Pulse Rate 98 123 H Respiratory Rate 22 H 25 H Blood Pressure 137/70 Pulse Oximetry 100 100 Oxygen Delivery Mechanical Ventilation Fraction of Inspired Oxygen 100 100 11/06/24 05:11 11/06/24 06:00 11/06/24 06:00 Temperature 99.2 F Pulse Rate 107 H 101 H 101 H Respiratory Rate 18 Blood Pressure 114/80 Pulse Oximetry 99 100 Oxygen Delivery Mechanical Ventilation Fraction of Inspired Oxygen 100 11/06/24 06:00 11/06/24 07:00 11/06/24 08:00 Temperature 99.6 F 99.6 F Pulse Rate 95 109 H Respiratory Rate 18 21 H Blood Pressure 122/77 109/79 Pulse Oximetry 100 93 Oxygen Delivery Fraction of Inspired Oxygen 70 11/06/24 08:00 11/06/24 08:16 11/06/24 10:00 Temperature 99.7 F H Pulse Rate 110 H 112 H 101 H Respiratory Rate 19 Blood Pressure 116/79 Pulse Oximetry 96 100 Oxygen Delivery Mechanical Ventilation Fraction of Inspired Oxygen 70 11/06/24 10:00 Temperature Pulse Rate 100 Respiratory Rate Blood Pressure Pulse Oximetry Oxygen Delivery Fraction of Inspired Oxygen Intake/Output Intake/Output: Intake & Output 11/03/24 11/04/24 11/05/24 11/06/24 23:59 23:59 23:59 23:59 Intake Total 2073.2 330 Output Total 136 Balance 2073.2 194 Meds/Results Medications: Active Medications Generic Name Dose Route Start Last Admin Trade Name Freq PRN Reason Stop Dose Admin Dextrose 12.5 gm 11/06/24 07:40 Dextrose 50% 25 Gm/50 Ml Syringe IV PUSH PRN PRN Hypoglycemia Protocol Enoxaparin Sodium 30 mg 11/06/24 09:00 11/06/24 08:14 Enoxaparin 30 Mg/0.3 Ml Syringe SUB-Q 30 mg DAILY SOURAV Administration Folic Acid 1 mg 11/06/24 09:00 11/06/24 08:14 Folic Acid 1 Mg/0.2 Ml Inj IV PUSH 1 mg QAM SOURAV Administration Glucagon 1 mg 11/06/24 07:40 Glucagon For Inj 1 Mg Vial IM PRN PRN Hypoglycemia Protocol Glucose 15 gm 11/06/24 07:40 Glucose Oral Gel 15 Gm Of Glucse In 37.5 Gm Tube PO PRN PRN Hypoglycemia Protocol Piperacillin Sod/Tazobactam Sod 2.25 gm in 50 mls @ 100 mls/hr 11/06/24 06:00 11/06/24 06:00 Zosyn 2.25 Gm/Ns 50 Ml IVPB Infused Q6HR SOURAV Infusion Albumin Human 100 mls @ 60 mls/hr 11/06/24 08:00 11/06/24 08:13 Albutein IVPB 60 mls/hr Q6H SOURAV Administration Sodium Bicarbonate 150 meq/ 1,100 mls @ 100 mls/hr 11/06/24 08:00 11/06/24 08:41 Dextrose IV CONT 100 mls/hr .Q11H SOURAV Administration Dextrose 1,000 mls @ 100 mls/hr 11/06/24 07:40 Dextrose 5% 1,000 Ml IVPB PRN PRN Hypoglycemia Protocol Insulin Aspart 2 - 5 units 11/06/24 09:00 11/06/24 08:14 Insulin Aspart (*Bk) 100 Units/Ml SUB-Q Not Given Q4HR [facility] Protocol Naloxone HCl 0.1 mg 11/06/24 00:01 Naloxone Hcl 0.4 Mg/Ml Vial IV PUSH Q2M PRN Opiate Reversal Ondansetron HCl 4 mg 11/06/24 00:01 Ondansetron Inj 4 Mg/2 Ml Vial IV PUSH Q4H PRN Nausea And Vomiting Pantoprazole Sodium 40 mg 11/06/24 09:00 11/06/24 08:14 Pantoprazole Sodium Iv 40 Mg Vial IV PUSH 40 mg Q12HR SOURAV Administration Sodium Chloride 10 ml 11/06/24 06:00 11/06/24 06:50 Central Line Flush IV PUSH 10 ml Q8HR SOURAV Administration Sodium Chloride 10 ml 11/06/24 14:00 Central Line Flush IV PUSH Q8HR SOURAV Sodium Chloride 20 ml 11/06/24 09:59 Central Line Flush IV PUSH PRN PRN after blood draws Thiamine HCl 100 mg 11/06/24 09:00 11/06/24 08:14 Thiamine Hcl 200 Mg/2 Ml Vial IV PUSH 100 mg QAM SOURAV Administration Radiology Results: ITS Impressions Head CT 11/05/24 20:50 IMPRESSION: 1. Moderate nonspecific cerebral white matter disease, which likely represents chronic small vessel ischemic disease. 2. 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 Chest/Abdomen/Pelvis CT 11/05/24 20:55 IMPRESSION: 1. Free intraperitoneal gas, consistent with perforated viscus. I called this result to Dr. Woods. 2. Large volume of ascites. 3. Right lower lobe pneumonia. 4. Small pleural effusions. 5. Small pericardial effusion. 6. Nasogastric tube tip at the gastroesophageal junction. Chest X-Ray 11/06/24 08:12 IMPRESSION: Congestive jasvir with bilateral interstitial changes. Edema versus pneumonitis is not excluded. Bilateral basal pneumonia. Labs Labs: Laboratory Results - last 24 hr 11/05/24 11/05/24 11/05/24 19:44 19:55 20:01 WBC 12.1 H RBC 5.14 Hgb 15.5 Hct 47.5 MCV 92.4 MCH 30.2 MCHC 32.6 RDW 14.8 H Plt Count 375 MPV 10.3 Immature Gran % (Auto) Not Reportable Neut % (Auto) Not Reportable Lymph % (Auto) Not Reportable [place] % (Auto) Not Reportable Eos % (Auto) Not Reportable Baso % (Auto) Not Reportable Lymph # (Auto) Not Reportable [place] # (Auto) Not Reportable Eos # (Auto) Not Reportable Baso # (Auto) Not Reportable Abs Immat Gran (auto) Not Reportable Absolute Neuts (auto) Not Reportable Absolute Nucleated RBC Not Reportable Total Counted 100 Neutrophils % (Manual) 62 Band Neutrophils % 23 H Lymphocytes % (Manual) 8.0 L Monocytes % (Manual) 6 Metamyelocytes % 1 Nucleated RBC % Not Reportable Abs Neuts (Manual) 10.28 H Abs Lymphs (Manual) 0.96 L Abs Monocytes (Manual) 0.72 Platelet Estimate Adequate Schistocytes None seen PT 18.5 H INR 1.5 APTT 32.7 Puncture Site Left radial ABG pH 7.233 L* ABG pCO2 36.7 ABG pO2 170.7 H ABG PO2/FiO2 Ratio 1.71 ABG HCO3 15.1 L ABG O2 Saturation 98.9 ABG O2 Content 21.6 ABG Base Excess -11.5 A-a Gradient 505.6 Oxyhemoglobin 98.3 Carboxyhemoglobin Methemoglobin Reduced Hemoglobin Total Hemoglobin 15.4 O2 Delivery Device Ventilator O2 Liters/Min Not Reportable Minute Volume Not Reportable Vent Rate 18 Vent Mode Cmv FiO2 100 Tidal Volume 450 PEEP 5 Peak Inspir Pressure Not Reportable Pressure Support Not Reportable Sodium 137 Potassium 3.7 Chloride 109 H Carbon Dioxide 18 L Anion Gap 10 BUN 39 H D Creatinine 2.00 H Estim Creat Clear Calc 24 Estimated GFR 33 L Glucose 117 H POC Capillary Glucose Lactic Acid 6.9 H* Calcium 8.5 Phosphorus Magnesium 2.4 H Total Bilirubin 0.5 AST 23 ALT 19 Alkaline Phosphatase 75 Troponin I < 0.012 Total Protein 6.0 L Albumin 3.1 L Lipase 122 Procalcitonin 17.7 Urine Color Dark yellow Urine Appearance Cloudy H Urine pH 5.0 Ur Specific [place] 1.030 Urine Protein 1+ H Urine Glucose (UA) Trace H Urine Ketones Trace H Ur Blood (Man) Negative Urine Nitrate Negative Urine Bilirubin 1+ H Urine Urobilinogen 1.0 Leukocyte Esterase Rfl Trace H Urine RBC 0-2 Urine WBC 0-5 Ur Squamous Epith Cells None seen Urine Bacteria None seen Urine Casts >20 Hyaline Casts Present Nasal MRSA (PCR) Urine Opiates Screen Positive A Urine Methadone Screen Negative Ur Barbiturates Screen Negative Ur Phencyclidine Scrn Negative Ur Amphetamine Screen Negative U Benzodiazepines Scrn Positive A Urine Cocaine Screen Negative U Cannabinoids Screen Negative Ethyl Alcohol < 10 Influenza A (RT-PCR) Negative Influenza B (RT-PCR) Negative RSV (RT-PCR) Negative SARS-CoV-2 RNA (RT-PCR) Negative 11/05/24 11/06/24 11/06/24 22:04 00:22 05:31 WBC 7.8 RBC 5.03 Hgb 15.1 Hct 46.2 MCV 91.8 MCH 30.0 MCHC 32.7 RDW 14.8 H Plt Count 331 MPV 9.9 Immature Gran % (Auto) Neut % (Auto) Lymph % (Auto) [place] % (Auto) Eos % (Auto) Baso % (Auto) Lymph # (Auto) [place] # (Auto) Eos # (Auto) Baso # (Auto) Abs Immat Gran (auto) Absolute Neuts (auto) Absolute Nucleated RBC Total Counted Neutrophils % (Manual) Band Neutrophils % Lymphocytes % (Manual) Monocytes % (Manual) Metamyelocytes % Nucleated RBC % Abs Neuts (Manual) Abs Lymphs (Manual) Abs Monocytes (Manual) Platelet Estimate Schistocytes PT INR APTT Puncture Site ABG pH ABG pCO2 ABG pO2 ABG PO2/FiO2 Ratio ABG HCO3 ABG O2 Saturation ABG O2 Content ABG Base Excess A-a Gradient Oxyhemoglobin Carboxyhemoglobin Methemoglobin Reduced Hemoglobin Total Hemoglobin O2 Delivery Device O2 Liters/Min Minute Volume Vent Rate Vent Mode FiO2 Tidal Volume PEEP Peak Inspir Pressure Pressure Support Sodium 137 Potassium 4.2 Chloride 114 H Carbon Dioxide 18 L Anion Gap 5 BUN 42 H Creatinine 2.00 H Estim Creat Clear Calc 24 Estimated GFR 33 L Glucose 74 POC Capillary Glucose Lactic Acid 2.2 H Calcium 7.7 L Phosphorus 5.4 H Magnesium 2.0 Total Bilirubin AST ALT Alkaline Phosphatase Troponin I 0.014 Total Protein Albumin Lipase Procalcitonin Urine Color Urine Appearance Urine pH Ur Specific [place] Urine Protein Urine Glucose (UA) Urine Ketones Ur Blood (Man) Urine Nitrate Urine Bilirubin Urine Urobilinogen Leukocyte Esterase Rfl Urine RBC Urine WBC Ur Squamous Epith Cells Urine Bacteria Urine Casts Hyaline Casts Nasal MRSA (PCR) Not detected Not detected Urine Opiates Screen Urine Methadone Screen Ur Barbiturates Screen Ur Phencyclidine Scrn Ur Amphetamine Screen U Benzodiazepines Scrn Urine Cocaine Screen U Cannabinoids Screen Ethyl Alcohol Influenza A (RT-PCR) Influenza B (RT-PCR) RSV (RT-PCR) SARS-CoV-2 RNA (RT-PCR) 11/06/24 11/06/24 05:50 08:11 WBC RBC Hgb Hct MCV MCH MCHC RDW Plt Count MPV Immature Gran % (Auto) Neut % (Auto) Lymph % (Auto) [place] % (Auto) Eos % (Auto) Baso % (Auto) Lymph # (Auto) [place] # (Auto) Eos # (Auto) Baso # (Auto) Abs Immat Gran (auto) Absolute Neuts (auto) Absolute Nucleated RBC Total Counted Neutrophils % (Manual) Band Neutrophils % Lymphocytes % (Manual) Monocytes % (Manual) Metamyelocytes % Nucleated RBC % Abs Neuts (Manual) Abs Lymphs (Manual) Abs Monocytes (Manual) Platelet Estimate Schistocytes PT INR APTT Puncture Site Left radial ABG pH 7.279 L* ABG pCO2 37.9 ABG pO2 203.0 H ABG PO2/FiO2 Ratio 2.03 ABG HCO3 17.4 L ABG O2 Saturation 99.3 ABG O2 Content 22.4 H ABG Base Excess -8.6 A-a Gradient 472.1 Oxyhemoglobin 99.0 Carboxyhemoglobin 0.2 Methemoglobin 0.4 Reduced Hemoglobin 0.4 Total Hemoglobin 15.8 O2 Delivery Device Ventilator O2 Liters/Min Not Reportable Minute Volume Not Reportable Vent Rate 18 Vent Mode Cmv FiO2 100 Tidal Volume 450 PEEP 5 Peak Inspir Pressure Not Reportable Pressure Support Not Reportable Sodium Potassium Chloride Carbon Dioxide Anion Gap BUN Creatinine Estim Creat Clear Calc Estimated GFR Glucose POC Capillary Glucose 72 Lactic Acid Calcium Phosphorus Magnesium Total Bilirubin AST ALT Alkaline Phosphatase Troponin I Total Protein Albumin Lipase Procalcitonin Urine Color Urine Appearance Urine pH Ur Specific [place] Urine Protein Urine Glucose (UA) Urine Ketones Ur Blood (Man) Urine Nitrate Urine Bilirubin Urine Urobilinogen Leukocyte Esterase Rfl Urine RBC Urine WBC Ur Squamous Epith Cells Urine Bacteria Urine Casts Hyaline Casts Nasal MRSA (PCR) Urine Opiates Screen Urine Methadone Screen Ur Barbiturates Screen Ur Phencyclidine Scrn Ur Amphetamine Screen U Benzodiazepines Scrn Urine Cocaine Screen U Cannabinoids Screen Ethyl Alcohol Influenza A (RT-PCR) Influenza B (RT-PCR) RSV (RT-PCR) SARS-CoV-2 RNA (RT-PCR)
[2024-11-06 13:03] LABS: Glucose Point of Care 77 mg/dl (65-105)
[2024-11-06 16:23] LABS: Glucose Point of Care 93 mg/dl (65-105)
[2024-11-06 19:58] LABS: Glucose Point of Care 100 mg/dl (65-105)
[2024-11-06] MEDS: ACETAMINOPHEN 650 MG SUPPOSITORY RECTAL (20:11)
[2024-11-06 22:00] LABS: Hematocrit 28.8 % (42.0-52.0); Hemoglobin 9.8 g/dL (14.0-18.0); Mean Corpuscular Hemoglobin 30.2 pg (26-34); Mean Corpuscular Volume 88.6 fl (80-100); Mean Platelet Volume 10.2 fl (7.4-10.4); Platelet Count Result 221 k/mm3 (150-375); Red Blood Count 3.25 M/mm3 (4.6-6.20); Red Cell Distribution Width 14.9 % (11.5-14.5); White Blood Count 9.7 K/mm3 (4.5-10.0)
[2024-11-06 22:11] LABS: Anion Gap 1 mmol/L (4-12); Blood Urea Nitrogen 45 mg/dL (9-20); Calcium 7.5 mg/dL (8.4-10.2); Carbon Dioxide 29 mmol/L (22-30); Chloride 107 mmol/L (98-107); Estimated CRCL calculation 26 ml/min; Estimated Glomerular Filt Rate 35; Glucose 88 mg/dL (65-110); Potassium 3.3 mmol/L (3.4-5.0); Sodium 137 mmol/L (137-145)
[2024-11-07] VITALS (27 sets, daily range): BP systolic 81–138; BP diastolic 58–79; PULSE 79–130; RESP 18–30; TEMP 37.6–38.1; O2SAT 91–97
[2024-11-07] MEDS: PIPERACILLIN/TAZ 2.25G/NS 50ML 2.25 GM/50 ML BAG IVPB ×5 (00:18→23:27)
[2024-11-07] MEDS: fentaNYL CITRATE INJ (*CRX) 100 MCG/2 ML VIAL 50 MCG IV PUSH (00:19)
[2024-11-07] MEDS: dexmedeTOMIDine 400 MCG/100 ML 400 MCG/100 ML BAG IV CONT (00:20)
[2024-11-07 00:31] LABS: Glucose Point of Care 100 mg/dl (65-105)
[2024-11-07] MEDS: ALBUMIN HUMAN 25% 25 GM/100 ML 100 ML IVPB ×4 (02:12→20:18)
[2024-11-07 04:34] LABS: Hematocrit 27.2 % (42.0-52.0); Hemoglobin 9.3 g/dL (14.0-18.0); Mean Corpuscular HGB Conc 34.2 g/dl (32-36); Mean Corpuscular Hemoglobin 30.2 pg (26-34); Mean Corpuscular Volume 88.3 fl (80-100); Mean Platelet Volume 9.8 fl (7.4-10.4); Platelet Count Result 179 k/mm3 (150-375); Red Blood Count 3.08 M/mm3 (4.6-6.20); Red Cell Distribution Width 14.9 % (11.5-14.5); White Blood Count 8.5 K/mm3 (4.5-10.0)
[2024-11-07 04:46] LABS: Alanine Aminotransferase 14 U/L (6-50); Albumin Level 2.9 g/dL (3.5-5.1); Alkaline Phosphatase 44 U/L (38-126); Anion Gap 2 mmol/L (4-12); Aspartate Amino Transferase 36 U/L (17-59); Bilirubin,Total 0.8 mg/dL (0.2-1.3); Blood Urea Nitrogen 41 mg/dL (9-20); Calcium 7.8 mg/dL (8.4-10.2); Carbon Dioxide 33 mmol/L (22-30); Chloride 104 mmol/L (98-107); Estimated CRCL calculation 26 ml/min; Estimated Glomerular Filt Rate 35; Glucose 91 mg/dL (65-110); Magnesium 2.2 mg/dL (1.6-2.3); Potassium 2.9 mmol/L (3.4-5.0); Sodium 139 mmol/L (137-145)
[2024-11-07] MEDS: SODIUM BICARBONATE 8.4% 150 MEQ in DEXTROSE 5% 1,000 ML 950 ML 100 MEQ IV CONT (05:17)
[2024-11-07] MEDS: CENTRAL LINE FLUSH 10 ML IV PUSH ×4 (05:18→20:20)
[2024-11-07 05:35] LABS: Alveolar/Arterial O2 Gradient 144.4 mmHg; Base Excess ABG 7.8 mEq/l (+/-2.0); Carboxyhemoglobin 0.5 % THb (0-2.0); Fractional Inspired Oxygen 35 %; HCO3 ABG 30.2 mEq/l (22.0-26.0); Methemoglobin ABG 0.4 %THb (0-1.5); Oxygen Content ABG 11.7 %vol (16.0-22.0); Oxygen Saturation ABG 95.7 % (95.0-100.0); Oxyhemoglobin 94.3 % THb (90.0-100.0); PCO2 ABG 33.3 mmHg (35.0-45.0); PO2 ABG 66.4 mmHg (80.0-100.0); Reduced Hemoglobin 4.8 %THb (0-5.0); Total Hemoglobin 8.8 g/dL (12.0-18.0)
[2024-11-07 05:37] LABS: Arterial Blood Gas Vent Mode CMV; Arterial Blood Gas Ventilator rate 18 /MIN; Device VENTILATOR; Modified Allen's Test Pass; Site Drawn LEFT RADIAL; pH ABG 7.575 (7.350-7.450)
[2024-11-07 05:38] LABS: Arterial Blood Gas PEEP 8 cmH2O; Arterial Blood Gas Tidal Volume 450 ml
[2024-11-07] MEDS: POTASSIUM CHLORIDE 20 MEQ PACKET (FOR LIQUID) 40 MEQ FEED TUBE (06:07)
[2024-11-07] MEDS: KCL 40 MEQ/WATER 100 ML 100 ML 25 ML IVPB ×2 (06:37→13:47)
[2024-11-07 07:47] LABS: Glucose Point of Care 79 mg/dl (65-105)
[2024-11-07] MEDS: PANTOPRAZOLE SODIUM IV 40 MG VIAL IV PUSH ×2 (08:12→20:18)
[2024-11-07] MEDS: FOLIC ACID 1 MG/0.2 ML INJ IV PUSH (08:12)
[2024-11-07] MEDS: ENOXAPARIN 30 MG/0.3 ML SYRINGE SUB-Q (08:12)
[2024-11-07] MEDS: THIAMINE HCL 200 MG/2 ML VIAL 100 MG IV PUSH (08:12)
--- NOTE | 2024-11-07 08:18 | P.PNINT_ITS ---
Progress Note: A&P Assessment and Plan (1) Acute hypoxic respiratory failure: Code(s): J96.01 - Acute respiratory failure with hypoxia Status: Acute Assessment and Plan: Acute Respiratory failure secondary to sepsis, perforated gastric ulcer, general anaesthesia Continue full mechanical ventilation support to prevent hypoxemia/hypercarbia and end organ damage. ABG and ventilator settings reviewed. Decrease tidal volume to 400 PCXR reviewed Low tidal volume ventilation strategy to prevent volutrauma Patient placed on 5/8 5 PSV SBT. If does well will evaluate for extubation Precedex for sedation and anxiolysis Bronchodilators (2) Sepsis: Code(s): A41.9 - Sepsis, unspecified organism Status: Acute Assessment and Plan: Sepsis secondary to right lower lobe pneumonia which is likely aspiration, perforated gastric ulcer and peritonitis Blood cultures ordered and pending Continue empiric Zosyn Management of perforated gastric ulcer as below off IV fluids Continue 25% albumin Patient not requiring any vasopressors at this time (3) Pneumonia: Code(s): J18.9 - Pneumonia, unspecified organism Status: Acute Assessment and Plan: CT scan shows right lower lobe pneumonia which is likely aspiration. Continue Zosyn (4) EtOH dependence: Code(s): F10.20 - Alcohol dependence, uncomplicated Status: Acute Assessment and Plan: Thiamine and folic acid ordered (5) COPD (chronic obstructive pulmonary disease): Code(s): J44.9 - Chronic obstructive pulmonary disease, unspecified Status: Acute Assessment and Plan: Not in exacerbation Bronchodilators ordered (6) Perforated gastric ulcer: Code(s): K25.5 - Chronic or unspecified gastric ulcer with perforation Status: Acute Assessment and Plan: Status post exploratory laparotomy, extensive lysis of adhesions, intra- abdominal washout, repair of perforated gastric ulcer with omental patch HARLEY drain placed Dressing on the surgical incision Management and feeding as per General surgery (7) DEBI (acute kidney injury): Code(s): N17.9 - Acute kidney failure, unspecified Status: Acute Assessment and Plan: DEBI likely secondary to sepsis hypotension, fluid shift and hypovolemia Continue IV fluids Continue 25% albumin CT scan does not show any hydronephrosis or obstruction Monitor urine output electrolytes and creatinine If creatinine does not improve will consult nephrology (8) Metabolic acidosis: Code(s): E87.20 - Acidosis, unspecified Status: Acute Assessment and Plan: Resolved DC bicarb Adjust ventilation for metabolic alkalosis Plan DVT prophylaxis -Lovenox Stress ulcer prophylaxis -IV PPI Nutrition - npo. Feeding as per General surgery Code Status - Full Code Total Critical Care Time - 32 minutes Due to a high probability of clinically significant, life threatening deterioration, the patient required my highest level of preparedness to intervene emergently and I personally spent this critical care time directly and personally managing the patient. This critical care time included obtaining a history; examining the patient; pulse oximetry; ordering and review of studies; arranging urgent treatment with development of a management plan; evaluation of patient's response to treatment; frequent reassessment; and discussions with other providers. It was exclusive of separately billable procedures and treating other patients and teaching time. Please see Assessment and Plan section and the rest of the note for further information on patient assessment and treatment Subjective Date/time seen: 11/07/24 Overnight events reviewed. Afebrile Continues to be on mechanical ventilation 35% FiO2 20 mL out of serosanguineous fluid from HARLEY drain Continues to be sedated with low-dose Precedex npo Review of Systems Review of Systems: ROS unobtainable: Yes unobtainable due to endotracheal tube, unobtainable due to medical condition and unobtainable due to mental status Exam Narrative: General: Pt is sedated, intubated and on mechanical ventilation Lungs/Chest: Trachea central Coarse BS B/L, No crackles or wheezing. Cardiac: RRR. Normal S1 S2. No murmurs Circulation: Abdomen: Decreased but present bowel sounds. HARLEY drain in place. Soft. Tender to palpation as patient grimaces on exam. NG tube in place Extremities: No clubbing, cyanosis or edema. Warm : Shen in place Neurologic: Unable to assess fully due to sedation. But moves all 4 extremities spontaneously. Follows commands with both hands intermittently. PERRL Objective Data Vital Signs Vital Signs: Vital Signs - 24 hr 11/06/24 10:00 11/06/24 10:00 11/06/24 11:26 Temperature 37.6 C H Pulse Rate 101 H 100 97 Respiratory Rate 19 Blood Pressure 116/79 Pulse Oximetry 100 100 Oxygen Delivery Mechanical Ventilation Fraction of Inspired Oxygen 60 11/06/24 12:00 11/06/24 12:00 11/06/24 12:00 Temperature Pulse Rate 95 Respiratory Rate Blood Pressure Pulse Oximetry 100 Oxygen Delivery Mechanical Ventilation Fraction of Inspired Oxygen 60 60 11/06/24 12:00 11/06/24 13:54 11/06/24 14:00 Temperature 37.4 C Pulse Rate 95 103 H 94 Respiratory Rate 22 H Blood Pressure 116/71 Pulse Oximetry 97 100 Oxygen Delivery Mechanical Ventilation Fraction of Inspired Oxygen 50 11/06/24 14:00 11/06/24 16:00 11/06/24 16:00 Temperature 37.9 C H Pulse Rate 94 Respiratory Rate 18 Blood Pressure 124/77 Pulse Oximetry 100 99 Oxygen Delivery Mechanical Ventilation Fraction of Inspired Oxygen 50 50 11/06/24 16:00 11/06/24 16:00 11/06/24 17:00 Temperature 38.1 C H Pulse Rate 90 88 Respiratory Rate 18 Blood Pressure 115/69 Pulse Oximetry 100 Oxygen Delivery Fraction of Inspired Oxygen 40 11/06/24 17:01 11/06/24 18:00 11/06/24 18:00 Temperature 37.9 C H Pulse Rate 87 87 87 Respiratory Rate 18 Blood Pressure 111/67 Pulse Oximetry 99 97 Oxygen Delivery Mechanical Ventilation Fraction of Inspired Oxygen 40 11/06/24 20:00 11/06/24 20:00 11/06/24 20:00 Temperature Pulse Rate 85 Respiratory Rate Blood Pressure Pulse Oximetry 99 Oxygen Delivery Mechanical Ventilation Fraction of Inspired Oxygen 40 40 11/06/24 20:00 11/06/24 20:08 11/06/24 22:00 Temperature 37.9 C H Pulse Rate 85 101 H 94 Respiratory Rate 18 Blood Pressure 125/73 Pulse Oximetry 99 98 Oxygen Delivery Mechanical Ventilation Fraction of Inspired Oxygen 40 11/06/24 22:00 11/06/24 23:22 11/07/24 00:00 Temperature 37.7 C H Pulse Rate 94 77 Respiratory Rate 22 H Blood Pressure 157/83 H Pulse Oximetry 97 95 93 Oxygen Delivery Mechanical Ventilation Mechanical Ventilation Fraction of Inspired Oxygen 40 40 11/07/24 00:00 11/07/24 00:00 11/07/24 00:00 Temperature 37.6 C H Pulse Rate 118 H 130 H Respiratory Rate 18 Blood Pressure 120/75 Pulse Oximetry 93 Oxygen Delivery Fraction of Inspired Oxygen 40 11/07/24 00:20 11/07/24 00:38 11/07/24 02:00 Temperature Pulse Rate 120 H 130 H 106 H Respiratory Rate 18 Blood Pressure 120/75 Pulse Oximetry Oxygen Delivery Fraction of Inspired Oxygen 11/07/24 02:00 11/07/24 02:00 11/07/24 02:51 Temperature 37.7 C H Pulse Rate 106 H 106 H 108 H Respiratory Rate 18 18 Blood Pressure 101/67 Pulse Oximetry 94 95 Oxygen Delivery Mechanical Ventilation Fraction of Inspired Oxygen 40 11/07/24 04:00 11/07/24 04:00 11/07/24 04:00 Temperature Pulse Rate 94 Respiratory Rate 18 Blood Pressure Pulse Oximetry 97 Oxygen Delivery Mechanical Ventilation Fraction of Inspired Oxygen 35 35 11/07/24 04:00 11/07/24 04:07 11/07/24 05:12 Temperature 37.7 C H Pulse Rate 94 105 H 110 H Respiratory Rate 18 Blood Pressure 100/72 Pulse Oximetry 97 97 Oxygen Delivery Mechanical Ventilation Fraction of Inspired Oxygen 35 11/07/24 05:57 11/07/24 06:00 11/07/24 06:00 Temperature Pulse Rate 103 H 97 101 H Respiratory Rate 18 Blood Pressure Pulse Oximetry Oxygen Delivery Fraction of Inspired Oxygen 11/07/24 06:00 11/07/24 07:00 11/07/24 07:26 Temperature 37.6 C H Pulse Rate 101 H 107 H Respiratory Rate 18 Blood Pressure 81/58 L Pulse Oximetry 97 96 Oxygen Delivery Mechanical Ventilation Fraction of Inspired Oxygen 35 35 11/07/24 07:26 11/07/24 08:00 Temperature Pulse Rate 94 101 H Respiratory Rate 19 Blood Pressure Pulse Oximetry 97 Oxygen Delivery Mechanical Ventilation Fraction of Inspired Oxygen 35 Intake/Output Intake/Output: Intake & Output 11/04/24 11/05/24 11/06/24 11/07/24 23:59 23:59 23:59 23:59 Intake Total 2073.2 3070.0 981.8 Output Total 596 970 Balance 2073.2 2474.0 11.8 Meds/Results Medications: Active Medications Generic Name Dose Route Start Last Admin Trade Name Freq PRN Reason Stop Dose Admin Acetaminophen 650 mg 11/06/24 14:48 11/06/24 20:11 Acetaminophen 650 Mg Suppository RECTAL 650 mg Q4H PRN Administration Mild Pain (1-3) or Fever Dextrose 12.5 gm 11/06/24 07:40 Dextrose 50% 25 Gm/50 Ml Syringe IV PUSH PRN PRN Hypoglycemia Protocol Enoxaparin Sodium 30 mg 11/06/24 09:00 11/07/24 08:12 Enoxaparin 30 Mg/0.3 Ml Syringe SUB-Q 30 mg DAILY SOURAV Administration Fentanyl Citrate 25 mcg 11/07/24 07:21 Fentanyl Citrate Inj (*Crx) 100 Mcg/2 Ml Vial IV PUSH Q1H PRN Pain Rated 7-10 Folic Acid 1 mg 11/06/24 09:00 11/07/24 08:12 Folic Acid 1 Mg/0.2 Ml Inj IV PUSH 1 mg QAM SOURAV Administration Glucagon 1 mg 11/06/24 07:40 Glucagon For Inj 1 Mg Vial IM PRN PRN Hypoglycemia Protocol Glucose 15 gm 11/06/24 07:40 Glucose Oral Gel 15 Gm Of Glucse In 37.5 Gm Tube PO PRN PRN Hypoglycemia Protocol Piperacillin Sod/Tazobactam Sod 2.25 gm in 50 mls @ 100 mls/hr 11/06/24 06:00 11/07/24 06:12 Zosyn 2.25 Gm/Ns 50 Ml IVPB Infused Q6HR SOURAV Infusion Albumin Human 100 mls @ 60 mls/hr 11/06/24 08:00 11/07/24 08:11 Albutein IVPB 60 mls/hr Q6H SOURAV Administration Dextrose 1,000 mls @ 100 mls/hr 11/06/24 07:40 Dextrose 5% 1,000 Ml IVPB PRN PRN Hypoglycemia Protocol Dexmedetomidine HCl 400 mcg in 100 mls @ 1.385 mls/hr 11/07/24 00:15 11/07/24 08:00 Precedex 400 Mcg/100 Ml IV CONT 0.1 mcg/kg/hr .Q72H SOURAV 1.39 mls/hr Titration Protocol 0.1 MCG/KG/HR Potassium Chloride 100 mls @ 25 mls/hr 11/07/24 05:55 11/07/24 06:37 Kcl 40 Meq/Water 100 Ml IVPB 11/07/24 09:54 25 mls/hr ONCE ONE Administration Insulin Aspart 2 - 5 units 11/06/24 09:00 11/07/24 08:10 Insulin Aspart (*Bkc) 100 Units/Ml SUB-Q Not Given Q4HR SOURAV Protocol Naloxone HCl 0.1 mg 11/06/24 00:01 Naloxone Hcl 0.4 Mg/Ml Vial IV PUSH Q2M PRN Opiate Reversal Ondansetron HCl 4 mg 11/06/24 00:01 Ondansetron Inj 4 Mg/2 Ml Vial IV PUSH Q4H PRN Nausea And Vomiting Pantoprazole Sodium 40 mg 11/06/24 09:00 11/07/24 08:12 Pantoprazole Sodium Iv 40 Mg Vial IV PUSH 40 mg Q12HR SOURAV Administration Sodium Chloride 10 ml 11/06/24 06:00 11/07/24 05:18 Central Line Flush IV PUSH 10 ml Q8HR SOURAV Administration Sodium Chloride 10 ml 11/06/24 14:00 11/07/24 05:18 Central Line Flush IV PUSH 10 ml Q8HR SOURAV Administration Sodium Chloride 20 ml 11/06/24 09:59 Central Line Flush IV PUSH PRN PRN after blood draws Thiamine HCl 100 mg 11/06/24 09:00 11/07/24 08:12 Thiamine Hcl 200 Mg/2 Ml Vial IV PUSH 100 mg QAM SOURAV Administration Radiology Results: ITS Impressions Head CT 11/05/24 20:50 IMPRESSION: 1. Moderate nonspecific cerebral white matter disease, which likely represents chronic small vessel ischemic disease. 2. 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 Chest/Abdomen/Pelvis CT 11/05/24 20:55 IMPRESSION: 1. Free intraperitoneal gas, consistent with perforated viscus. I called this result to Dr. Woods. 2. Large volume of ascites. 3. Right lower lobe pneumonia. 4. Small pleural effusions. 5. Small pericardial effusion. 6. Nasogastric tube tip at the gastroesophageal junction. Chest X-Ray 11/07/24 07:14 Impression: Right basilar pneumonia versus possibly asymmetric pulmonary edema/atelectasis. Support tubes, as above. Labs Labs: Laboratory Results - last 24 hr 11/06/24 11/06/24 11/06/24 13:00 16:21 19:52 WBC RBC Hgb Hct MCV MCH MCHC RDW Plt Count MPV Puncture Site ABG pH ABG pCO2 ABG pO2 ABG PO2/FiO2 Ratio ABG HCO3 ABG O2 Saturation ABG O2 Content ABG Base Excess A-a Gradient Oxyhemoglobin Carboxyhemoglobin Methemoglobin Reduced Hemoglobin Total Hemoglobin O2 Delivery Device O2 Liters/Min Minute Volume Vent Rate Vent Mode FiO2 Tidal Volume PEEP Peak Inspir Pressure Pressure Support Sodium Potassium Chloride Carbon Dioxide Anion Gap BUN Creatinine Estim Creat Clear Calc Estimated GFR Glucose POC Capillary Glucose 77 93 100 Calcium Magnesium Total Bilirubin AST ALT Alkaline Phosphatase Total Protein Albumin 11/06/24 11/07/24 11/07/24 21:54 00:28 04:28 WBC 9.7 8.5 RBC 3.25 L 3.08 L Hgb 9.8 L D 9.3 L Hct 28.8 L 27.2 L MCV 88.6 88.3 MCH 30.2 30.2 MCHC 34.0 34.2 RDW 14.9 H 14.9 H Plt Count 221 179 MPV 10.2 9.8 Puncture Site ABG pH ABG pCO2 ABG pO2 ABG PO2/FiO2 Ratio ABG HCO3 ABG O2 Saturation ABG O2 Content ABG Base Excess A-a Gradient Oxyhemoglobin Carboxyhemoglobin Methemoglobin Reduced Hemoglobin Total Hemoglobin O2 Delivery Device O2 Liters/Min Minute Volume Vent Rate Vent Mode FiO2 Tidal Volume PEEP Peak Inspir Pressure Pressure Support Sodium 137 139 Potassium 3.3 L 2.9 L Chloride 107 104 Carbon Dioxide 29 33 H Anion Gap 1 L 2 L BUN 45 H 41 H Creatinine 1.90 H 1.90 H Estim Creat Clear Calc 26 26 Estimated GFR 35 L 35 L Glucose 88 91 POC Capillary Glucose 100 Calcium 7.5 L 7.8 L Magnesium 2.2 Total Bilirubin 0.8 AST 36 ALT 14 Alkaline Phosphatase 44 Total Protein 5.0 L Albumin 2.9 L 11/07/24 11/07/24 05:10 07:43 WBC RBC Hgb Hct MCV MCH MCHC RDW Plt Count MPV Puncture Site Left radial ABG pH 7.575 H* ABG pCO2 33.3 L ABG pO2 66.4 L ABG PO2/FiO2 Ratio 1.90 ABG HCO3 30.2 H ABG O2 Saturation 95.7 ABG O2 Content 11.7 L ABG Base Excess 7.8 A-a Gradient 144.4 Oxyhemoglobin 94.3 Carboxyhemoglobin 0.5 Methemoglobin 0.4 Reduced Hemoglobin 4.8 Total Hemoglobin 8.8 L O2 Delivery Device Ventilator O2 Liters/Min Not Reportable Minute Volume Not Reportable Vent Rate 18 Vent Mode Cmv FiO2 35 Tidal Volume 450 PEEP 8 Peak Inspir Pressure Not Reportable Pressure Support Not Reportable Sodium Potassium Chloride Carbon Dioxide Anion Gap BUN Creatinine Estim Creat Clear Calc Estimated GFR Glucose POC Capillary Glucose 79 Calcium Magnesium Total Bilirubin AST ALT Alkaline Phosphatase Total Protein Albumin Quality VTE Prophylaxis VTE prophylaxis: mechanical ordered and pharmacologic ordered
--- NOTE | 2024-11-07 08:37 | P.PNIM_ITS ---
Progress Note: A&P Assessment and Plan (1) Metabolic acidosis: Code(s): E87.20 - Acidosis, unspecified Status: Acute (2) DEBI (acute kidney injury): Code(s): N17.9 - Acute kidney failure, unspecified Status: Acute (3) Perforated gastric ulcer: Code(s): K25.5 - Chronic or unspecified gastric ulcer with perforation Status: Acute (4) COPD (chronic obstructive pulmonary disease): Code(s): J44.9 - Chronic obstructive pulmonary disease, unspecified Status: Acute (5) Sepsis: Code(s): A41.9 - Sepsis, unspecified organism Status: Acute (6) Pneumonia: Code(s): J18.9 - Pneumonia, unspecified organism Status: Acute (7) Acute hypoxic respiratory failure: Code(s): J96.01 - Acute respiratory failure with hypoxia Status: Acute (8) Sepsis associated hypotension: Code(s): A41.9 - Sepsis, unspecified organism; I95.9 - Hypotension, unspecified Status: Acute (9) EtOH dependence: Code(s): F10.20 - Alcohol dependence, uncomplicated Status: Acute Plan (1) Acute hypoxic respiratory failure: Code(s): J96.01 - Acute respiratory failure with hypoxia Status: Acute Assessment and Plan: Acute Respiratory failure secondary to sepsis, perforated gastric ulcer, general anaesthesia Extubated today (2) Sepsis: Code(s): A41.9 - Sepsis, unspecified organism Status: Acute Assessment and Plan: Sepsis secondary to right lower lobe pneumonia which is likely aspiration, perforated gastric ulcer and peritonitis Blood cultures ordered and pending Continue empiric Zosyn Management of perforated gastric ulcer as below off IV fluids Continue 25% albumin Patient is not on vasopressors (3) Pneumonia: Code(s): J18.9 - Pneumonia, unspecified organism Status: Acute Assessment and Plan: CT scan shows right lower lobe pneumonia which is likely aspiration. Continue Zosyn (4) EtOH dependence: Code(s): F10.20 - Alcohol dependence, uncomplicated Status: Acute Assessment and Plan: Thiamine and folic acid ordered Patient is confused, (5) COPD (chronic obstructive pulmonary disease): Code(s): J44.9 - Chronic obstructive pulmonary disease, unspecified Status: Acute Assessment and Plan: Not in exacerbation Bronchodilators ordered (6) Perforated gastric ulcer: Code(s): K25.5 - Chronic or unspecified gastric ulcer with perforation Status: Acute Assessment and Plan: Status post exploratory laparotomy, extensive lysis of adhesions, intra- abdominal washout, repair of perforated gastric ulcer with omental patch HARLEY drain placed Dressing on the surgical incision Management and feeding as per General surgery Patient is on Zosyn (7) DEBI (acute kidney injury): Code(s): N17.9 - Acute kidney failure, unspecified Status: Acute Assessment and Plan: DEBI likely secondary to sepsis hypotension, fluid shift and hypovolemia Continue IV fluids Continue 25% albumin CT scan does not show any hydronephrosis or obstruction Monitor urine output electrolytes and creatinine Patient has a hypokalemia, creatinine is trending down Replete with potassium chloride 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 Patient still confused, no obvious distress. Blood pressure stable, low-grade fever 99.8, labs reviewed, Exam Narrative: General: Extubated, not on sedation, lethargic, ill-appearing Lungs/Chest: Trachea central Coarse BS B/L, No crackles or wheezing. Cardiac: RRR. Normal S1 S2. No murmurs Circulation: Abdomen: Decreased but present bowel sounds. HARLEY drain in place. Soft. Tender to palpation as patient grimaces on exam. NG tube in place Extremities: No clubbing, cyanosis or edema. Warm : Shen in place Neurologic: Patient is able to move all 4 extremities spontaneously. Objective Data Vital Signs Vital Signs: Vital Signs - 24 hr 11/06/24 10:00 11/06/24 10:00 11/06/24 11:26 Temperature 99.7 F H Pulse Rate 101 H 100 97 Respiratory Rate 19 Blood Pressure 116/79 Pulse Oximetry 100 100 Oxygen Delivery Mechanical Ventilation Fraction of Inspired Oxygen 60 11/06/24 12:00 11/06/24 12:00 11/06/24 12:00 Temperature Pulse Rate 95 Respiratory Rate Blood Pressure Pulse Oximetry 100 Oxygen Delivery Mechanical Ventilation Fraction of Inspired Oxygen 60 60 11/06/24 12:00 11/06/24 13:54 11/06/24 14:00 Temperature 99.3 F Pulse Rate 95 103 H 94 Respiratory Rate 22 H Blood Pressure 116/71 Pulse Oximetry 97 100 Oxygen Delivery Mechanical Ventilation Fraction of Inspired Oxygen 50 11/06/24 14:00 11/06/24 16:00 11/06/24 16:00 Temperature 100.2 F H Pulse Rate 94 Respiratory Rate 18 Blood Pressure 124/77 Pulse Oximetry 100 99 Oxygen Delivery Mechanical Ventilation Fraction of Inspired Oxygen 50 50 11/06/24 16:00 11/06/24 16:00 11/06/24 17:00 Temperature 100.6 F H Pulse Rate 90 88 Respiratory Rate 18 Blood Pressure 115/69 Pulse Oximetry 100 Oxygen Delivery Fraction of Inspired Oxygen 40 11/06/24 17:01 11/06/24 18:00 11/06/24 18:00 Temperature 100.3 F H Pulse Rate 87 87 87 Respiratory Rate 18 Blood Pressure 111/67 Pulse Oximetry 99 97 Oxygen Delivery Mechanical Ventilation Fraction of Inspired Oxygen 40 11/06/24 20:00 11/06/24 20:00 11/06/24 20:00 Temperature Pulse Rate 85 Respiratory Rate Blood Pressure Pulse Oximetry 99 Oxygen Delivery Mechanical Ventilation Fraction of Inspired Oxygen 40 40 11/06/24 20:00 11/06/24 20:08 11/06/24 22:00 Temperature 100.3 F H Pulse Rate 85 101 H 94 Respiratory Rate 18 Blood Pressure 125/73 Pulse Oximetry 99 98 Oxygen Delivery Mechanical Ventilation Fraction of Inspired Oxygen 40 11/06/24 22:00 11/06/24 23:22 11/07/24 00:00 Temperature 100 F H Pulse Rate 94 77 Respiratory Rate 22 H Blood Pressure 157/83 H Pulse Oximetry 97 95 93 Oxygen Delivery Mechanical Ventilation Mechanical Ventilation Fraction of Inspired Oxygen 40 40 11/07/24 00:00 11/07/24 00:00 11/07/24 00:00 Temperature 99.7 F H Pulse Rate 118 H 130 H Respiratory Rate 18 Blood Pressure 120/75 Pulse Oximetry 93 Oxygen Delivery Fraction of Inspired Oxygen 40 11/07/24 00:20 11/07/24 00:38 11/07/24 02:00 Temperature Pulse Rate 120 H 130 H 106 H Respiratory Rate 18 Blood Pressure 120/75 Pulse Oximetry Oxygen Delivery Fraction of Inspired Oxygen 11/07/24 02:00 11/07/24 02:00 11/07/24 02:51 Temperature 99.8 F H Pulse Rate 106 H 106 H 108 H Respiratory Rate 18 18 Blood Pressure 101/67 Pulse Oximetry 94 95 Oxygen Delivery Mechanical Ventilation Fraction of Inspired Oxygen 40 11/07/24 04:00 11/07/24 04:00 11/07/24 04:00 Temperature Pulse Rate 94 Respiratory Rate 18 Blood Pressure Pulse Oximetry 97 Oxygen Delivery Mechanical Ventilation Fraction of Inspired Oxygen 35 35 11/07/24 04:00 11/07/24 04:07 11/07/24 05:12 Temperature 99.9 F H Pulse Rate 94 105 H 110 H Respiratory Rate 18 Blood Pressure 100/72 Pulse Oximetry 97 97 Oxygen Delivery Mechanical Ventilation Fraction of Inspired Oxygen 35 11/07/24 05:57 11/07/24 06:00 11/07/24 06:00 Temperature Pulse Rate 103 H 97 101 H Respiratory Rate 18 Blood Pressure Pulse Oximetry Oxygen Delivery Fraction of Inspired Oxygen 11/07/24 06:00 11/07/24 07:00 11/07/24 07:26 Temperature 99.7 F H Pulse Rate 101 H 107 H Respiratory Rate 18 Blood Pressure 81/58 L Pulse Oximetry 97 96 Oxygen Delivery Mechanical Ventilation Fraction of Inspired Oxygen 35 35 11/07/24 07:26 11/07/24 08:00 11/07/24 08:00 Temperature Pulse Rate 94 101 H 101 H Respiratory Rate 19 18 Blood Pressure Pulse Oximetry 97 96 Oxygen Delivery Mechanical Ventilation Mechanical Ventilation Fraction of Inspired Oxygen 35 35 11/07/24 08:00 Temperature 99.8 F H Pulse Rate 101 H Respiratory Rate 18 Blood Pressure 85/67 L Pulse Oximetry 96 Oxygen Delivery Fraction of Inspired Oxygen Intake/Output Intake/Output: Intake & Output 11/04/24 11/05/24 11/06/24 11/07/24 23:59 23:59 23:59 23:59 Intake Total 2073.2 3070.0 981.8 Output Total 596 970 Balance 2073.2 2474.0 11.8 Meds/Results Medications: Active Medications Generic Name Dose Route Start Last Admin Trade Name Freq PRN Reason Stop Dose Admin Acetaminophen 650 mg 11/06/24 14:48 11/06/24 20:11 Acetaminophen 650 Mg Suppository RECTAL 650 mg Q4H PRN Administration Mild Pain (1-3) or Fever Dextrose 12.5 gm 11/06/24 07:40 Dextrose 50% 25 Gm/50 Ml Syringe IV PUSH PRN PRN Hypoglycemia Protocol Enoxaparin Sodium 30 mg 11/06/24 09:00 11/07/24 08:12 Enoxaparin 30 Mg/0.3 Ml Syringe SUB-Q 30 mg DAILY SOURAV Administration Fentanyl Citrate 25 mcg 11/07/24 07:21 Fentanyl Citrate Inj (*Crx) 100 Mcg/2 Ml Vial IV PUSH Q1H PRN Pain Rated 7-10 Folic Acid 1 mg 11/06/24 09:00 11/07/24 08:12 Folic Acid 1 Mg/0.2 Ml Inj IV PUSH 1 mg QAM SOURAV Administration Glucagon 1 mg 11/06/24 07:40 Glucagon For Inj 1 Mg Vial IM PRN PRN Hypoglycemia Protocol Glucose 15 gm 11/06/24 07:40 Glucose Oral Gel 15 Gm Of Glucse In 37.5 Gm Tube PO PRN PRN Hypoglycemia Protocol Piperacillin Sod/Tazobactam Sod 2.25 gm in 50 mls @ 100 mls/hr 11/06/24 06:00 11/07/24 06:12 Zosyn 2.25 Gm/Ns 50 Ml IVPB Infused Q6HR SOURAV Infusion Albumin Human 100 mls @ 60 mls/hr 11/06/24 08:00 11/07/24 08:11 Albutein IVPB 60 mls/hr Q6H SOURAV Administration Dextrose 1,000 mls @ 100 mls/hr 11/06/24 07:40 Dextrose 5% 1,000 Ml IVPB PRN PRN Hypoglycemia Protocol Dexmedetomidine HCl 400 mcg in 100 mls @ 1.385 mls/hr 11/07/24 00:15 11/07/24 08:00 Precedex 400 Mcg/100 Ml IV CONT 0.1 mcg/kg/hr .Q72H SOURAV 1.39 mls/hr Titration Protocol 0.1 MCG/KG/HR Potassium Chloride 100 mls @ 25 mls/hr 11/07/24 05:55 11/07/24 06:37 Kcl 40 Meq/Water 100 Ml IVPB 11/07/24 09:54 25 mls/hr ONCE ONE Administration Potassium Chloride/Dextrose/Sod Cl 1,000 mls @ 75 mls/hr 11/07/24 08:30 Kcl 20 Meq/D5/0.45% Sod Chl IV CONT 11/08/24 08:29 .[id number] SOURAV Insulin Aspart 2 - 5 units 11/06/24 09:00 11/07/24 08:10 Insulin Aspart (*Bkc) 100 Units/Ml SUB-Q Not Given Q4HR [facility] Protocol Naloxone HCl 0.1 mg 11/06/24 00:01 Naloxone Hcl 0.4 Mg/Ml Vial IV PUSH Q2M PRN Opiate Reversal Ondansetron HCl 4 mg 11/06/24 00:01 Ondansetron Inj 4 Mg/2 Ml Vial IV PUSH Q4H PRN Nausea And Vomiting Pantoprazole Sodium 40 mg 11/06/24 09:00 11/07/24 08:12 Pantoprazole Sodium Iv 40 Mg Vial IV PUSH 40 mg Q12HR SOURAV Administration Sodium Chloride 10 ml 11/06/24 06:00 11/07/24 05:18 Central Line Flush IV PUSH 10 ml Q8HR SOURAV Administration Sodium Chloride 10 ml 11/06/24 14:00 11/07/24 05:18 Central Line Flush IV PUSH 10 ml Q8HR SOURAV Administration Sodium Chloride 20 ml 11/06/24 09:59 Central Line Flush IV PUSH PRN PRN after blood draws Thiamine HCl 100 mg 11/06/24 09:00 11/07/24 08:12 Thiamine Hcl 200 Mg/2 Ml Vial IV PUSH 100 mg QAM SOURAV Administration Radiology Results: ITS Impressions Head CT 11/05/24 20:50 IMPRESSION: 1. Moderate nonspecific cerebral white matter disease, which likely represents chronic small vessel ischemic disease. 2. 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 Chest/Abdomen/Pelvis CT 11/05/24 20:55 IMPRESSION: 1. Free intraperitoneal gas, consistent with perforated viscus. I called this result to Dr. Woods. 2. Large volume of ascites. 3. Right lower lobe pneumonia. 4. Small pleural effusions. 5. Small pericardial effusion. 6. Nasogastric tube tip at the gastroesophageal junction. Chest X-Ray 11/07/24 07:14 Impression: Right basilar pneumonia versus possibly asymmetric pulmonary edema/atelectasis. Support tubes, as above. Labs Labs: Laboratory Results - last 24 hr 11/06/24 11/06/24 11/06/24 13:00 16:21 19:52 WBC RBC Hgb Hct MCV MCH MCHC RDW Plt Count MPV Puncture Site ABG pH ABG pCO2 ABG pO2 ABG PO2/FiO2 Ratio ABG HCO3 ABG O2 Saturation ABG O2 Content ABG Base Excess A-a Gradient Oxyhemoglobin Carboxyhemoglobin Methemoglobin Reduced Hemoglobin Total Hemoglobin O2 Delivery Device O2 Liters/Min Minute Volume Vent Rate Vent Mode FiO2 Tidal Volume PEEP Peak Inspir Pressure Pressure Support Sodium Potassium Chloride Carbon Dioxide Anion Gap BUN Creatinine Estim Creat Clear Calc Estimated GFR Glucose POC Capillary Glucose 77 93 100 Calcium Magnesium Total Bilirubin AST ALT Alkaline Phosphatase Total Protein Albumin 11/06/24 11/07/24 11/07/24 21:54 00:28 04:28 WBC 9.7 8.5 RBC 3.25 L 3.08 L Hgb 9.8 L D 9.3 L Hct 28.8 L 27.2 L MCV 88.6 88.3 MCH 30.2 30.2 MCHC 34.0 34.2 RDW 14.9 H 14.9 H Plt Count 221 179 MPV 10.2 9.8 Puncture Site ABG pH ABG pCO2 ABG pO2 ABG PO2/FiO2 Ratio ABG HCO3 ABG O2 Saturation ABG O2 Content ABG Base Excess A-a Gradient Oxyhemoglobin Carboxyhemoglobin Methemoglobin Reduced Hemoglobin Total Hemoglobin O2 Delivery Device O2 Liters/Min Minute Volume Vent Rate Vent Mode FiO2 Tidal Volume PEEP Peak Inspir Pressure Pressure Support Sodium 137 139 Potassium 3.3 L 2.9 L Chloride 107 104 Carbon Dioxide 29 33 H Anion Gap 1 L 2 L BUN 45 H 41 H Creatinine 1.90 H 1.90 H Estim Creat Clear Calc 26 26 Estimated GFR 35 L 35 L Glucose 88 91 POC Capillary Glucose 100 Calcium 7.5 L 7.8 L Magnesium 2.2 Total Bilirubin 0.8 AST 36 ALT 14 Alkaline Phosphatase 44 Total Protein 5.0 L Albumin 2.9 L 11/07/24 11/07/24 05:10 07:43 WBC RBC Hgb Hct MCV MCH MCHC RDW Plt Count MPV Puncture Site Left radial ABG pH 7.575 H* ABG pCO2 33.3 L ABG pO2 66.4 L ABG PO2/FiO2 Ratio 1.90 ABG HCO3 30.2 H ABG O2 Saturation 95.7 ABG O2 Content 11.7 L ABG Base Excess 7.8 A-a Gradient 144.4 Oxyhemoglobin 94.3 Carboxyhemoglobin 0.5 Methemoglobin 0.4 Reduced Hemoglobin 4.8 Total Hemoglobin 8.8 L O2 Delivery Device Ventilator O2 Liters/Min Not Reportable Minute Volume Not Reportable Vent Rate 18 Vent Mode Cmv FiO2 35 Tidal Volume 450 PEEP 8 Peak Inspir Pressure Not Reportable Pressure Support Not Reportable Sodium Potassium Chloride Carbon Dioxide Anion Gap BUN Creatinine Estim Creat Clear Calc Estimated GFR Glucose POC Capillary Glucose 79 Calcium Magnesium Total Bilirubin AST ALT Alkaline Phosphatase Total Protein Albumin
[2024-11-07 08:38] LABS: Alveolar/Arterial O2 Gradient 191.3 mmHg; Base Excess ABG 4.1 mEq/l (+/-2.0); Fractional Inspired Oxygen 35 %; HCO3 ABG 26.4 mEq/l (22.0-26.0); Oxygen Content ABG 13.7 %vol (16.0-22.0); Oxygen Saturation ABG 97.1 % (95.0-100.0); Oxyhemoglobin 95.7 % THb (90.0-100.0); PCO2 ABG 31.3 mmHg (35.0-45.0); PO2 ABG 80.5 mmHg (80.0-100.0); Total Hemoglobin 10.1 g/dL (12.0-18.0)
[2024-11-07 08:42] LABS: Arterial Blood Gas Vent Mode SPONTANEOUS; Device VENTILATOR; Modified Allen's Test Pass; Site Drawn LEFT RADIAL; pH ABG 7.544 (7.350-7.450)
[2024-11-07 08:43] LABS: Arterial Blood Gas PEEP 5 cmH2O; Arterial Blood Gas Pressure Support 8 cmH2O
[2024-11-07] MEDS: fentaNYL CITRATE INJ (*CRX) 100 MCG/2 ML VIAL 25 MCG IV PUSH ×4 (09:39→23:27)
[2024-11-07] MEDS: KCL 20 MEQ/D5/0.45% SOD CHL 1,000 ML 75 ML IV CONT ×2 (09:40→23:36)
--- NOTE | 2024-11-07 11:33 | PM.PNGS ---
Progress Note: A&P Assessment and Plan (1) Perforated gastric ulcer: Code(s): K25.5 - Chronic or unspecified gastric ulcer with perforation Status: Acute Assessment and Plan: exam largely benign, cont bowel rest/decompression, PPI, drain, will get UGI tomorrow thru NG Subjective Subjective Date/Time Seen: 11/07/24 11:33 Interval history: extubated this am, a little confused Review of Systems Review of Systems: ROS unobtainable: Yes unobtainable due to medical condition and unobtainable due to mental status Exam Const: General: cooperative and ill appearing Resp: Auscultation: diminished lung sounds Cardio: Rate: tachycardic Rhythm: regular rhythm GI: Inspection: normal to inspection, distended and incision GI Palp: Yes abdominal tenderness, Yes Soft to palpation and Yes Tenderness to palpation present (GI) Other: HARLEY c s/s output Objective Data Vital Signs Vital Signs: Vital Signs - 24 hr 11/06/24 12:00 11/06/24 12:00 11/06/24 12:00 Temperature Pulse Rate 95 Respiratory Rate Blood Pressure Pulse Oximetry 100 Oxygen Delivery Mechanical Ventilation Fraction of Inspired Oxygen 60 60 11/06/24 12:00 11/06/24 13:54 11/06/24 14:00 Temperature 37.4 C Pulse Rate 95 103 H 94 Respiratory Rate 22 H Blood Pressure 116/71 Pulse Oximetry 97 100 Oxygen Delivery Mechanical Ventilation Fraction of Inspired Oxygen 50 11/06/24 14:00 11/06/24 16:00 11/06/24 16:00 Temperature 37.9 C H Pulse Rate 94 Respiratory Rate 18 Blood Pressure 124/77 Pulse Oximetry 100 99 Oxygen Delivery Mechanical Ventilation Fraction of Inspired Oxygen 50 50 11/06/24 16:00 11/06/24 16:00 11/06/24 17:00 Temperature 38.1 C H Pulse Rate 90 88 Respiratory Rate 18 Blood Pressure 115/69 Pulse Oximetry 100 Oxygen Delivery Fraction of Inspired Oxygen 40 11/06/24 17:01 11/06/24 18:00 11/06/24 18:00 Temperature 37.9 C H Pulse Rate 87 87 87 Respiratory Rate 18 Blood Pressure 111/67 Pulse Oximetry 99 97 Oxygen Delivery Mechanical Ventilation Fraction of Inspired Oxygen 40 11/06/24 20:00 11/06/24 20:00 11/06/24 20:00 Temperature Pulse Rate 85 Respiratory Rate Blood Pressure Pulse Oximetry 99 Oxygen Delivery Mechanical Ventilation Fraction of Inspired Oxygen 40 40 11/06/24 20:00 11/06/24 20:08 11/06/24 22:00 Temperature 37.9 C H Pulse Rate 85 101 H 94 Respiratory Rate 18 Blood Pressure 125/73 Pulse Oximetry 99 98 Oxygen Delivery Mechanical Ventilation Fraction of Inspired Oxygen 40 11/06/24 22:00 11/06/24 23:22 11/07/24 00:00 Temperature 37.7 C H Pulse Rate 94 77 Respiratory Rate 22 H Blood Pressure 157/83 H Pulse Oximetry 97 95 93 Oxygen Delivery Mechanical Ventilation Mechanical Ventilation Fraction of Inspired Oxygen 40 40 11/07/24 00:00 11/07/24 00:00 11/07/24 00:00 Temperature 37.6 C H Pulse Rate 118 H 130 H Respiratory Rate 18 Blood Pressure 120/75 Pulse Oximetry 93 Oxygen Delivery Fraction of Inspired Oxygen 40 11/07/24 00:20 11/07/24 00:38 11/07/24 02:00 Temperature Pulse Rate 120 H 130 H 106 H Respiratory Rate 18 Blood Pressure 120/75 Pulse Oximetry Oxygen Delivery Fraction of Inspired Oxygen 11/07/24 02:00 11/07/24 02:00 11/07/24 02:51 Temperature 37.7 C H Pulse Rate 106 H 106 H 108 H Respiratory Rate 18 18 Blood Pressure 101/67 Pulse Oximetry 94 95 Oxygen Delivery Mechanical Ventilation Fraction of Inspired Oxygen 40 11/07/24 04:00 11/07/24 04:00 11/07/24 04:00 Temperature Pulse Rate 94 Respiratory Rate 18 Blood Pressure Pulse Oximetry 97 Oxygen Delivery Mechanical Ventilation Fraction of Inspired Oxygen 35 35 11/07/24 04:00 11/07/24 04:07 11/07/24 05:12 Temperature 37.7 C H Pulse Rate 94 105 H 110 H Respiratory Rate 18 Blood Pressure 100/72 Pulse Oximetry 97 97 Oxygen Delivery Mechanical Ventilation Fraction of Inspired Oxygen 35 11/07/24 05:57 11/07/24 06:00 11/07/24 06:00 Temperature Pulse Rate 103 H 97 101 H Respiratory Rate 18 Blood Pressure Pulse Oximetry Oxygen Delivery Fraction of Inspired Oxygen 11/07/24 06:00 11/07/24 07:00 11/07/24 07:26 Temperature 37.6 C H Pulse Rate 101 H 107 H Respiratory Rate 18 Blood Pressure 81/58 L Pulse Oximetry 97 96 Oxygen Delivery Mechanical Ventilation Fraction of Inspired Oxygen 35 35 11/07/24 07:26 11/07/24 08:00 11/07/24 08:00 Temperature Pulse Rate 94 101 H 101 H Respiratory Rate 19 18 Blood Pressure Pulse Oximetry 97 96 Oxygen Delivery Mechanical Ventilation Mechanical Ventilation Fraction of Inspired Oxygen 35 35 11/07/24 08:00 11/07/24 08:00 11/07/24 08:50 Temperature 37.7 C H Pulse Rate 101 H 98 98 Respiratory Rate 18 Blood Pressure 85/67 L Pulse Oximetry 96 94 Oxygen Delivery Fraction of Inspired Oxygen 11/07/24 08:50 11/07/24 10:00 11/07/24 10:00 Temperature 37.6 C H Pulse Rate 102 H 110 H 110 H Respiratory Rate 30 H 22 H Blood Pressure 94/69 L Pulse Oximetry 92 Oxygen Delivery Fraction of Inspired Oxygen 11/07/24 10:07 Temperature Pulse Rate 110 H Respiratory Rate 22 H Blood Pressure Pulse Oximetry Oxygen Delivery Fraction of Inspired Oxygen Intake/Output Intake/Output: Intake & Output 11/04/24 11/05/24 11/06/24 11/07/24 23:59 23:59 23:59 23:59 Intake Total 2073.2 3070.0 1083.0 Output Total 596 970 Balance 2073.2 2474.0 113.0 Meds/Results Medications: Active Medications Generic Name Dose Route Start Last Admin Trade Name Freq PRN Reason Stop Dose Admin Acetaminophen 650 mg 11/06/24 14:48 11/06/24 20:11 Acetaminophen 650 Mg Suppository RECTAL 650 mg Q4H PRN Administration Mild Pain (1-3) or Fever Dextrose 12.5 gm 11/06/24 07:40 Dextrose 50% 25 Gm/50 Ml Syringe IV PUSH PRN PRN Hypoglycemia Protocol Enoxaparin Sodium 30 mg 11/06/24 09:00 11/07/24 08:12 Enoxaparin 30 Mg/0.3 Ml Syringe SUB-Q 30 mg DAILY SOURAV Administration Fentanyl Citrate 25 mcg 11/07/24 07:21 11/07/24 09:39 Fentanyl Citrate Inj (*Crx) 100 Mcg/2 Ml Vial IV PUSH 25 mcg Q1H PRN Administration Pain Rated 7-10 Folic Acid 1 mg 11/06/24 09:00 11/07/24 08:12 Folic Acid 1 Mg/0.2 Ml Inj IV PUSH 1 mg QAM SOURAV Administration Glucagon 1 mg 11/06/24 07:40 Glucagon For Inj 1 Mg Vial IM PRN PRN Hypoglycemia Protocol Glucose 15 gm 11/06/24 07:40 Glucose Oral Gel 15 Gm Of Glucse In 37.5 Gm Tube PO PRN PRN Hypoglycemia Protocol Piperacillin Sod/Tazobactam Sod 2.25 gm in 50 mls @ 100 mls/hr 11/06/24 06:00 11/07/24 06:12 Zosyn 2.25 Gm/Ns 50 Ml IVPB Infused Q6HR SOURAV Infusion Albumin Human 100 mls @ 60 mls/hr 11/06/24 08:00 11/07/24 10:07 Albutein IVPB Infused Q6H SOURAV Infusion Dextrose 1,000 mls @ 100 mls/hr 11/06/24 07:40 Dextrose 5% 1,000 Ml IVPB PRN PRN Hypoglycemia Protocol Dexmedetomidine HCl 400 mcg in 100 mls @ 0 mls/hr 11/07/24 00:15 11/07/24 10:07 Precedex 400 Mcg/100 Ml IV CONT 0 mcg/kg/hr .Q0M SOURAV 0 mls/hr Titration Protocol 0 MCG/KG/HR Potassium Chloride/Dextrose/Sod Cl 1,000 mls @ 75 mls/hr 11/07/24 08:30 11/07/24 09:40 Kcl 20 Meq/D5/0.45% Sod Chl IV CONT 11/08/24 08:29 75 mls/hr .[id number] SOURAV Administration Insulin Aspart 2 - 5 units 11/06/24 09:00 11/07/24 08:10 Insulin Aspart (*Bkc) 100 Units/Ml SUB-Q Not Given Q4HR SOURAV Protocol Naloxone HCl 0.1 mg 11/06/24 00:01 Naloxone Hcl 0.4 Mg/Ml Vial IV PUSH Q2M PRN Opiate Reversal Ondansetron HCl 4 mg 11/06/24 00:01 Ondansetron Inj 4 Mg/2 Ml Vial IV PUSH Q4H PRN Nausea And Vomiting Pantoprazole Sodium 40 mg 11/06/24 09:00 11/07/24 08:12 Pantoprazole Sodium Iv 40 Mg Vial IV PUSH 40 mg Q12HR SOURAV Administration Sodium Chloride 10 ml 11/06/24 06:00 11/07/24 05:18 Central Line Flush IV PUSH 10 ml Q8HR SOURAV Administration Sodium Chloride 10 ml 11/06/24 14:00 11/07/24 05:18 Central Line Flush IV PUSH 10 ml Q8HR SOURAV Administration Sodium Chloride 20 ml 11/06/24 09:59 Central Line Flush IV PUSH PRN PRN after blood draws Thiamine HCl 100 mg 11/06/24 09:00 11/07/24 08:12 Thiamine Hcl 200 Mg/2 Ml Vial IV PUSH 100 mg QAM SOURAV Administration Radiology Results: ITS Impressions Head CT 11/05/24 20:50 IMPRESSION: 1. Moderate nonspecific cerebral white matter disease, which likely represents chronic small vessel ischemic disease. 2. 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 Chest/Abdomen/Pelvis CT 11/05/24 20:55 IMPRESSION: 1. Free intraperitoneal gas, consistent with perforated viscus. I called this result to Dr. Woods. 2. Large volume of ascites. 3. Right lower lobe pneumonia. 4. Small pleural effusions. 5. Small pericardial effusion. 6. Nasogastric tube tip at the gastroesophageal junction. Chest X-Ray 11/07/24 07:14 Impression: Right basilar pneumonia versus possibly asymmetric pulmonary edema/atelectasis. Support tubes, as above. Labs Labs: Laboratory Results - last 24 hr 11/06/24 11/06/24 11/06/24 13:00 16:21 19:52 WBC RBC Hgb Hct MCV MCH MCHC RDW Plt Count MPV Puncture Site ABG pH ABG pCO2 ABG pO2 ABG PO2/FiO2 Ratio ABG HCO3 ABG O2 Saturation ABG O2 Content ABG Base Excess A-a Gradient Oxyhemoglobin Carboxyhemoglobin Methemoglobin Reduced Hemoglobin Total Hemoglobin O2 Delivery Device O2 Liters/Min Minute Volume Vent Rate Vent Mode FiO2 Tidal Volume PEEP Peak Inspir Pressure Pressure Support Sodium Potassium Chloride Carbon Dioxide Anion Gap BUN Creatinine Estim Creat Clear Calc Estimated GFR Glucose POC Capillary Glucose 77 93 100 Calcium Magnesium Total Bilirubin AST ALT Alkaline Phosphatase Total Protein Albumin 11/06/24 11/07/24 11/07/24 21:54 00:28 04:28 WBC 9.7 8.5 RBC 3.25 L 3.08 L Hgb 9.8 L D 9.3 L Hct 28.8 L 27.2 L MCV 88.6 88.3 MCH 30.2 30.2 MCHC 34.0 34.2 RDW 14.9 H 14.9 H Plt Count 221 179 MPV 10.2 9.8 Puncture Site ABG pH ABG pCO2 ABG pO2 ABG PO2/FiO2 Ratio ABG HCO3 ABG O2 Saturation ABG O2 Content ABG Base Excess A-a Gradient Oxyhemoglobin Carboxyhemoglobin Methemoglobin Reduced Hemoglobin Total Hemoglobin O2 Delivery Device O2 Liters/Min Minute Volume Vent Rate Vent Mode FiO2 Tidal Volume PEEP Peak Inspir Pressure Pressure Support Sodium 137 139 Potassium 3.3 L 2.9 L Chloride 107 104 Carbon Dioxide 29 33 H Anion Gap 1 L 2 L BUN 45 H 41 H Creatinine 1.90 H 1.90 H Estim Creat Clear Calc 26 26 Estimated GFR 35 L 35 L Glucose 88 91 POC Capillary Glucose 100 Calcium 7.5 L 7.8 L Magnesium 2.2 Total Bilirubin 0.8 AST 36 ALT 14 Alkaline Phosphatase 44 Total Protein 5.0 L Albumin 2.9 L 11/07/24 11/07/24 11/07/24 05:10 07:43 08:30 WBC RBC Hgb Hct MCV MCH MCHC RDW Plt Count MPV Puncture Site Left radial Left radial ABG pH 7.575 H* 7.544 H* ABG pCO2 33.3 L 31.3 L ABG pO2 66.4 L 80.5 ABG PO2/FiO2 Ratio 1.90 2.30 ABG HCO3 30.2 H 26.4 H ABG O2 Saturation 95.7 97.1 ABG O2 Content 11.7 L 13.7 L ABG Base Excess 7.8 4.1 A-a Gradient 144.4 191.3 Oxyhemoglobin 94.3 95.7 Carboxyhemoglobin 0.5 Methemoglobin 0.4 Reduced Hemoglobin 4.8 Total Hemoglobin 8.8 L 10.1 L O2 Delivery Device Ventilator Ventilator O2 Liters/Min Not Reportable Not Reportable Minute Volume Not Reportable Not Reportable Vent Rate 18 Not Reportable Vent Mode Cmv Spontaneous FiO2 35 35 Tidal Volume 450 Not Reportable PEEP 8 5 Peak Inspir Pressure Not Reportable Not Reportable Pressure Support Not Reportable 8 Sodium Potassium Chloride Carbon Dioxide Anion Gap BUN Creatinine Estim Creat Clear Calc Estimated GFR Glucose POC Capillary Glucose 79 Calcium Magnesium Total Bilirubin AST ALT Alkaline Phosphatase Total Protein Albumin
[2024-11-07 11:46] LABS: Glucose Point of Care 79 mg/dl (65-105)
--- NOTE | 2024-11-07 12:01 | PCFNICU ---
Addendum entered by Mayra Page RD, ANNAMARIAN 11/07/24 12:24: NFPE performed. Severe Protein Calorie Malnutrition as related to inadequate protein energy intake as evidenced by minimal oral intake for > 1-2 months; severe subcutaneous fat loss (orbital fat pads) and severe muscle wasting (temporalis, clavicle). Original Note: ICU Rounding Note: Pt current nutrition is NPO. Last recorded weight is 55.5 kg, up from 54 kg on admit. Bowel Motility: No BM reported. Labs Reviewed: Cr 1.9, GFR 35, BUN 41, Alb 2.9 Meds Noted:Thiamine, Folic Acid, NovoLog. Skin: WNL Additional Notes: Patient has been extubated. Patient remains on NPO at this time. Surgery is following and will advance diet when medically able. Agree with diet orders at this time. Following daily in ICU rounds.
[2024-11-07 12:50] LABS: Anion Gap 2 mmol/L (4-12); Blood Urea Nitrogen 37 mg/dL (9-20); Calcium 8.1 mg/dL (8.4-10.2); Carbon Dioxide 34 mmol/L (22-30); Chloride 107 mmol/L (98-107); Estimated CRCL calculation 29 ml/min; Estimated Glomerular Filt Rate 40; Glucose 80 mg/dL (65-110); Potassium 3.3 mmol/L (3.4-5.0); Sodium 143 mmol/L (137-145)
[2024-11-07 16:18] LABS: Glucose Point of Care 81 mg/dl (65-105)
--- NOTE | 2024-11-07 17:23 | PC.NURSE ---
RN to room to administer medications. NG partial out of pt's nose. NG at 55. RN re-inserted NG to previous depth of 72cm. Stat KUB ordered to verify placement. notified
[2024-11-07] MEDS: ACETAMINOPHEN 650 MG SUPPOSITORY RECTAL (19:10)
[2024-11-07 20:29] LABS: Glucose Point of Care 85 mg/dl (65-105)
[2024-11-07 23:33] LABS: Glucose Point of Care 85 mg/dl (65-105)
[2024-11-08] VITALS (14 sets, daily range): BP systolic 136–168; BP diastolic 77–93; PULSE 72–91; RESP 16–27; TEMP 37.3–38.1; O2SAT 90–97
[2024-11-08] MEDS: fentaNYL CITRATE INJ (*CRX) 100 MCG/2 ML VIAL 25 MCG IV PUSH ×3 (01:22→06:03)
[2024-11-08] MEDS: PIPERACILLIN/TAZ 2.25G/NS 50ML 2.25 GM/50 ML BAG IVPB (05:49)
[2024-11-08] MEDS: CENTRAL LINE FLUSH 10 ML IV PUSH (05:49)
[2024-11-08 06:09] LABS: Hematocrit 32.1 % (42.0-52.0); Hemoglobin 10.4 g/dL (14.0-18.0); Mean Corpuscular HGB Conc 32.4 g/dl (32-36); Mean Corpuscular Hemoglobin 30.1 pg (26-34); Mean Platelet Volume 10.5 fl (7.4-10.4); Platelet Count Result 159 k/mm3 (150-375); Red Blood Count 3.45 M/mm3 (4.6-6.20); Red Cell Distribution Width 15.3 % (11.5-14.5); White Blood Count 11.2 K/mm3 (4.5-10.0)
[2024-11-08 06:23] LABS: Alanine Aminotransferase 13 U/L (6-50); Albumin Level 3.4 g/dL (3.5-5.1); Alkaline Phosphatase 56 U/L (38-126); Anion Gap 2 mmol/L (4-12); Aspartate Amino Transferase 27 U/L (17-59); Bilirubin,Total 0.7 mg/dL (0.2-1.3); Blood Urea Nitrogen 27 mg/dL (9-20); Carbon Dioxide 27 mmol/L (22-30); Chloride 113 mmol/L (98-107); Estimated CRCL calculation 44 ml/min; Estimated Glomerular Filt Rate > 60; Glucose 88 mg/dL (65-110); Magnesium 2.6 mg/dL (1.6-2.3); Potassium 3.5 mmol/L (3.4-5.0); Sodium 142 mmol/L (137-145)
[2024-11-08] MEDS: PANTOPRAZOLE SODIUM IV 40 MG VIAL IV PUSH ×2 (08:17→20:14)
[2024-11-08] MEDS: THIAMINE HCL 200 MG/2 ML VIAL 100 MG IV PUSH (08:17)
[2024-11-08] MEDS: FOLIC ACID 1 MG/0.2 ML INJ IV PUSH (08:17)
[2024-11-08] MEDS: ENOXAPARIN 30 MG/0.3 ML SYRINGE SUB-Q (08:17)
[2024-11-08] MEDS: MORPHINE SULFATE (*CRX) 4 MG/ML INJ IV PUSH (08:17)
--- NOTE | 2024-11-08 08:32 | WPDINTPN ---
Progress Note: A&P Assessment and Plan (1) Acute hypoxic respiratory failure: Code(s): J96.01 - Acute respiratory failure with hypoxia Status: Acute Assessment and Plan: Acute Respiratory failure secondary to sepsis, perforated gastric ulcer, general anaesthesia Continue full mechanical ventilation support to prevent hypoxemia/hypercarbia and end organ damage. 11/07 extubated currently on nasal cannula add incentive spirometry (2) Sepsis: Code(s): A41.9 - Sepsis, unspecified organism Status: Acute Assessment and Plan: Sepsis secondary to right lower lobe pneumonia which is likely aspiration, perforated gastric ulcer and peritonitis Blood cultures negative Continue empiric Zosyn Management of perforated gastric ulcer as below at low rate IV fluids all 25% albumin Patient not requiring any vasopressors at this time (3) Pneumonia: Code(s): J18.9 - Pneumonia, unspecified organism Status: Acute Assessment and Plan: CT scan shows right lower lobe pneumonia which is likely aspiration. Continue Zosyn (4) EtOH dependence: Code(s): F10.20 - Alcohol dependence, uncomplicated Status: Acute Assessment and Plan: Thiamine and folic acid ordered (5) COPD (chronic obstructive pulmonary disease): Code(s): J44.9 - Chronic obstructive pulmonary disease, unspecified Status: Acute Assessment and Plan: Not in exacerbation Bronchodilators ordered (6) Perforated gastric ulcer: Code(s): K25.5 - Chronic or unspecified gastric ulcer with perforation Status: Acute Assessment and Plan: Status post exploratory laparotomy, extensive lysis of adhesions, intra-abdominal washout, repair of perforated gastric ulcer with omental patch HARLEY drain in place Dressing on the surgical incision Management and initiation of feeding as per General surgery (7) DEBI (acute kidney injury): Code(s): N17.9 - Acute kidney failure, unspecified Status: Acute Assessment and Plan: DEBI likely secondary to sepsis hypotension, fluid shift and hypovolemia Continue IV fluids but decrease rate off 25% albumin CT scan does not show any hydronephrosis or obstruction Monitor urine output electrolytes and creatinine creatinine improved (8) Metabolic acidosis: Code(s): E87.20 - Acidosis, unspecified Status: Acute Assessment and Plan: Resolved off bicarb Plan DVT prophylaxis -Lovenox Stress ulcer prophylaxis -IV PPI Nutrition - npo. Feeding as per General surgery Code Status - Full Code incentive spirometer Subjective Date/time seen: 11/08/24 patient was extubated yesterday after a successful weaning trial. Patient is currently on nasal cannula. Appears weak and slightly confused. Only partially oriented complains of abdominal pain points towards abdomen but is not able to give any further details. He denies any shortness of breath or chest pain or cough. He had 5 C4-5 loose bowel movements. only limited review of system was obtainable. Sinus rhythm on the monitor. Blood pressure is adequate. Other vitals are stable. Adequate urine output. Low-grade fever. Review of Systems Review of Systems: ROS unobtainable: Yes unobtainable due to medical condition and unobtainable due to mental status Exam Narrative: General: Pt is Alert awake and confused, on nasal cannula, frail old male who looks older than his age. Lungs/Chest: Trachea central Coarse BS B/L, No crackles or wheezing. Cardiac: RRR. Normal S1 S2. No murmurs Circulation: Abdomen: Present bowel sounds. HARLEY drain in place. Soft. diffuse mild tenderness to palpation as patient grimaces on exam. NG tube in place Extremities: No clubbing, cyanosis or edema. Warm : Shen in place Neurologic: patient moves all 4 extremities spontaneously and follow commands. generalized weak. PERRL Objective Data Vital Signs Vital Signs: Vital Signs - 24 hr 11/07/24 08:50 11/07/24 08:50 11/07/24 08:55 Temperature Pulse Rate 98 102 H 102 H Respiratory Rate 30 H 22 H Blood Pressure Pulse Oximetry 94 92 Oxygen Delivery Nasal Cannula Oxygen Flow Rate 2 11/07/24 10:00 11/07/24 10:00 11/07/24 10:07 Temperature 37.6 C H Pulse Rate 110 H 110 H 110 H Respiratory Rate 22 H 22 H Blood Pressure 94/69 L Pulse Oximetry 92 Oxygen Delivery Oxygen Flow Rate 11/07/24 12:00 11/07/24 12:00 11/07/24 12:00 Temperature 37.6 C H Pulse Rate 82 88 82 Respiratory Rate 25 H 25 H Blood Pressure 110/70 Pulse Oximetry 95 95 Oxygen Delivery Nasal Cannula Oxygen Flow Rate 2 11/07/24 12:02 11/07/24 13:45 11/07/24 14:00 Temperature Pulse Rate 82 87 79 Respiratory Rate 25 H 21 H Blood Pressure Pulse Oximetry Oxygen Delivery Oxygen Flow Rate 11/07/24 14:00 11/07/24 16:00 11/07/24 16:00 Temperature 37.7 C H 37.8 C H Pulse Rate 87 81 81 Respiratory Rate 21 H 21 H 21 H Blood Pressure 129/79 122/67 Pulse Oximetry 94 94 94 Oxygen Delivery Nasal Cannula Oxygen Flow Rate 2 11/07/24 16:00 11/07/24 18:00 11/07/24 18:00 Temperature 37.9 C H Pulse Rate 84 90 90 Respiratory Rate 30 H Blood Pressure 131/75 Pulse Oximetry 93 Oxygen Delivery Oxygen Flow Rate 11/07/24 19:10 11/07/24 20:00 11/07/24 20:00 Temperature 38.1 C H 38.0 C H Pulse Rate 84 Respiratory Rate 21 H Blood Pressure 138/79 Pulse Oximetry 95 92 Oxygen Delivery Nasal Cannula Oxygen Flow Rate 2 11/07/24 20:00 11/07/24 20:10 11/07/24 22:00 Temperature 37.9 C H Pulse Rate 86 80 Respiratory Rate Blood Pressure Pulse Oximetry Oxygen Delivery Oxygen Flow Rate 11/07/24 22:00 11/08/24 00:00 11/08/24 00:00 Temperature 37.7 C H Pulse Rate 80 78 Respiratory Rate 26 H Blood Pressure 135/77 Pulse Oximetry 91 90 Oxygen Delivery Nasal Cannula Oxygen Flow Rate 5 11/08/24 00:00 11/08/24 02:00 11/08/24 02:00 Temperature 37.3 C 37.4 C Pulse Rate 81 75 75 Respiratory Rate 21 H 19 Blood Pressure 158/86 H 136/77 Pulse Oximetry 90 94 Oxygen Delivery Oxygen Flow Rate 11/08/24 04:00 11/08/24 04:00 11/08/24 04:00 Temperature 37.7 C H Pulse Rate 77 75 Respiratory Rate 21 H Blood Pressure 143/80 H Pulse Oximetry 92 92 Oxygen Delivery Nasal Cannula Oxygen Flow Rate 5 11/08/24 06:00 11/08/24 06:00 Temperature 37.9 C H Pulse Rate 81 81 Respiratory Rate 20 Blood Pressure 159/84 H Pulse Oximetry 92 Oxygen Delivery Oxygen Flow Rate Intake/Output Intake/Output: Intake & Output 11/05/24 11/06/24 11/07/24 11/08/24 23:59 23:59 23:59 23:59 Intake Total 2073.2 3070.0 2695.9 658.8 Output Total 596 2280 610 Balance 2073.2 2474.0 415.9 48.8 Meds/Results Medications: Active Medications Generic Name Dose Route Start Last Admin Trade Name Freq PRN Reason Stop Dose Admin Acetaminophen 650 mg 11/06/24 14:48 11/07/24 19:10 Acetaminophen 650 Mg Suppository RECTAL 650 mg Q4H PRN Administration Mild Pain (1-3) or Fever Dextrose 12.5 gm 11/06/24 07:40 Dextrose 50% 25 Gm/50 Ml Syringe IV PUSH PRN PRN Hypoglycemia Protocol Enoxaparin Sodium 30 mg 11/06/24 09:00 11/08/24 08:17 Enoxaparin 30 Mg/0.3 Ml Syringe SUB-Q 30 mg DAILY SOURAV Administration Folic Acid 1 mg 11/06/24 09:00 11/08/24 08:17 Folic Acid 1 Mg/0.2 Ml Inj IV PUSH 1 mg QAM SOURAV Administration Glucagon 1 mg 11/06/24 07:40 Glucagon For Inj 1 Mg Vial IM PRN PRN Hypoglycemia Protocol Glucose 15 gm 11/06/24 07:40 Glucose Oral Gel 15 Gm Of Glucse In 37.5 Gm Tube PO PRN PRN Hypoglycemia Protocol Dextrose 1,000 mls @ 100 mls/hr 11/06/24 07:40 Dextrose 5% 1,000 Ml IVPB PRN PRN Hypoglycemia Protocol Potassium Chloride/Dextrose/Sod Cl 1,000 mls @ 50 mls/hr 11/07/24 08:30 11/08/24 07:43 Kcl 20 Meq/D5/0.45% Sod Chl IV CONT 11/08/24 23:59 50 mls/hr .Q20H SOURAV Infusion Piperacillin/Tazobactam/Dextrose 3.375 gm in 50 mls @ 100 mls/hr 11/08/24 12:00 Zosyn 3.375 Gm/Ns 50 Ml IVPB Q6H SOURAV Insulin Aspart 2 - 5 units 11/08/24 12:00 Insulin Aspart (*Bkc) 100 Units/Ml SUB-Q Q6HR [facility] Protocol Morphine Sulfate 2 mg 11/08/24 07:39 Morphine Sulfate (*Crx) 2 Mg/Ml Inj IV PUSH Q2H PRN Moderate Pain (4-6) Morphine Sulfate 4 mg 11/08/24 07:39 11/08/24 08:17 Morphine Sulfate (*Crx) 4 Mg/Ml Inj IV PUSH 4 mg Q2H PRN Administration Pain Rated 7-10 Naloxone HCl 0.1 mg 11/06/24 00:01 Naloxone Hcl 0.4 Mg/Ml Vial IV PUSH Q2M PRN Opiate Reversal Ondansetron HCl 4 mg 11/06/24 00:01 Ondansetron Inj 4 Mg/2 Ml Vial IV PUSH Q4H PRN Nausea And Vomiting Pantoprazole Sodium 40 mg 11/06/24 09:00 11/08/24 08:17 Pantoprazole Sodium Iv 40 Mg Vial IV PUSH 40 mg Q12HR SOURAV Administration Sodium Chloride 10 ml 11/06/24 14:00 11/08/24 05:49 Central Line Flush IV PUSH 10 ml Q8HR SOURAV Administration Sodium Chloride 20 ml 11/06/24 09:59 Central Line Flush IV PUSH PRN PRN after blood draws Thiamine HCl 100 mg 11/06/24 09:00 11/08/24 08:17 Thiamine Hcl 200 Mg/2 Ml Vial IV PUSH 100 mg QAM SOURAV Administration Radiology Results: ITS Impressions Head CT 11/05/24 20:50 IMPRESSION: 1. Moderate nonspecific cerebral white matter disease, which likely represents chronic small vessel ischemic disease. 2. 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 Chest/Abdomen/Pelvis CT 11/05/24 20:55 IMPRESSION: 1. Free intraperitoneal gas, consistent with perforated viscus. I called this result to Dr. Woods. 2. Large volume of ascites. 3. Right lower lobe pneumonia. 4. Small pleural effusions. 5. Small pericardial effusion. 6. Nasogastric tube tip at the gastroesophageal junction. Abdomen X-Ray 11/07/24 17:42 IMPRESSION: 1. Nasogastric tube tip in the stomach. 2. Fold thickening of bowel, consistent with interstitial edema versus enterocolitis. 3. Airspace opacities in the perihilar regions and lower lung zones, consistent with atelectasis versus pneumonia. Chest X-Ray 11/08/24 06:02 Impression: Small right pleural effusion versus other hazy right basilar airspace disease. NG tube in place. Labs Labs: Laboratory Results - last 24 hr 11/07/24 11/07/24 11/07/24 08:30 11:35 12:27 WBC RBC Hgb Hct MCV MCH MCHC RDW Plt Count MPV Puncture Site Left radial ABG pH 7.544 H* ABG pCO2 31.3 L ABG pO2 80.5 ABG PO2/FiO2 Ratio 2.30 ABG HCO3 26.4 H ABG O2 Saturation 97.1 ABG O2 Content 13.7 L ABG Base Excess 4.1 A-a Gradient 191.3 Oxyhemoglobin 95.7 Total Hemoglobin 10.1 L O2 Delivery Device Ventilator O2 Liters/Min Not Reportable Minute Volume Not Reportable Vent Rate Not Reportable Vent Mode Spontaneous FiO2 35 Tidal Volume Not Reportable PEEP 5 Peak Inspir Pressure Not Reportable Pressure Support 8 Sodium 143 Potassium 3.3 L Chloride 107 Carbon Dioxide 34 H Anion Gap 2 L BUN 37 H Creatinine 1.70 H Estim Creat Clear Calc 29 Estimated GFR 40 L Glucose 80 POC Capillary Glucose 79 Calcium 8.1 L Magnesium Total Bilirubin AST ALT Alkaline Phosphatase Total Protein Albumin 11/07/24 11/07/24 11/07/24 16:16 20:18 23:31 WBC RBC Hgb Hct MCV MCH MCHC RDW Plt Count MPV Puncture Site ABG pH ABG pCO2 ABG pO2 ABG PO2/FiO2 Ratio ABG HCO3 ABG O2 Saturation ABG O2 Content ABG Base Excess A-a Gradient Oxyhemoglobin Total Hemoglobin O2 Delivery Device O2 Liters/Min Minute Volume Vent Rate Vent Mode FiO2 Tidal Volume PEEP Peak Inspir Pressure Pressure Support Sodium Potassium Chloride Carbon Dioxide Anion Gap BUN Creatinine Estim Creat Clear Calc Estimated GFR Glucose POC Capillary Glucose 81 85 85 Calcium Magnesium Total Bilirubin AST ALT Alkaline Phosphatase Total Protein Albumin 11/08/24 05:55 WBC 11.2 H RBC 3.45 L Hgb 10.4 L Hct 32.1 L MCV 93.0 D MCH 30.1 MCHC 32.4 RDW 15.3 H Plt Count 159 MPV 10.5 H Puncture Site ABG pH ABG pCO2 ABG pO2 ABG PO2/FiO2 Ratio ABG HCO3 ABG O2 Saturation ABG O2 Content ABG Base Excess A-a Gradient Oxyhemoglobin Total Hemoglobin O2 Delivery Device O2 Liters/Min Minute Volume Vent Rate Vent Mode FiO2 Tidal Volume PEEP Peak Inspir Pressure Pressure Support Sodium 142 Potassium 3.5 Chloride 113 H Carbon Dioxide 27 Anion Gap 2 L BUN 27 H D Creatinine 1.10 Estim Creat Clear Calc 44 Estimated GFR > 60 Glucose 88 POC Capillary Glucose Calcium 8.0 L Magnesium 2.6 H Total Bilirubin 0.7 AST 27 ALT 13 Alkaline Phosphatase 56 Total Protein 5.0 L Albumin 3.4 L Quality VTE Prophylaxis VTE prophylaxis: mechanical ordered and pharmacologic ordered
--- NOTE | 2024-11-08 09:48 | PM.IMPN ---
Progress Note: A&P Assessment and Plan (1) Metabolic acidosis: Code(s): E87.20 - Acidosis, unspecified Status: Acute (2) DEBI (acute kidney injury): Code(s): N17.9 - Acute kidney failure, unspecified Status: Acute (3) Perforated gastric ulcer: Code(s): K25.5 - Chronic or unspecified gastric ulcer with perforation Status: Acute (4) COPD (chronic obstructive pulmonary disease): Code(s): J44.9 - Chronic obstructive pulmonary disease, unspecified Status: Acute (5) Sepsis: Code(s): A41.9 - Sepsis, unspecified organism Status: Acute (6) Pneumonia: Code(s): J18.9 - Pneumonia, unspecified organism Status: Acute (7) Acute hypoxic respiratory failure: Code(s): J96.01 - Acute respiratory failure with hypoxia Status: Acute (8) Sepsis associated hypotension: Code(s): A41.9 - Sepsis, unspecified organism; I95.9 - Hypotension, unspecified Status: Acute (9) EtOH dependence: Code(s): F10.20 - Alcohol dependence, uncomplicated Status: Acute Plan (1) Acute hypoxic respiratory failure: Code(s): J96.01 - Acute respiratory failure with hypoxia Status: Acute Assessment and Plan: Acute Respiratory failure secondary to sepsis, perforated gastric ulcer, general anaesthesia Extubated today (2) Sepsis: Code(s): A41.9 - Sepsis, unspecified organism Status: Acute Assessment and Plan: Sepsis secondary to right lower lobe pneumonia which is likely aspiration, perforated gastric ulcer and peritonitis Continue empiric Zosyn Management of perforated gastric ulcer as below off IV fluids Received 25% albumin and vasopressors Patient is hemodynamically stable, off pressors Still has low-grade fever, mild leukocytosis, blood culture has no growth so far (3) Pneumonia: Code(s): J18.9 - Pneumonia, unspecified organism Status: Acute Assessment and Plan: CT scan shows right lower lobe pneumonia which is likely aspiration. Continue Zosyn (4) EtOH dependence: Code(s): F10.20 - Alcohol dependence, uncomplicated Status: Acute Assessment and Plan: Thiamine and folic acid ordered Patient is confused, (5) COPD (chronic obstructive pulmonary disease): Code(s): J44.9 - Chronic obstructive pulmonary disease, unspecified Status: Acute Assessment and Plan: Not in exacerbation Bronchodilators ordered (6) Perforated gastric ulcer: Code(s): K25.5 - Chronic or unspecified gastric ulcer with perforation Status: Acute Assessment and Plan: Status post exploratory laparotomy, extensive lysis of adhesions, intra-abdominal washout, repair of perforated gastric ulcer with omental patch HARLEY drain placed Dressing on the surgical incision Management and feeding as per General surgery Patient is on Zosyn (7) DEBI (acute kidney injury): Code(s): N17.9 - Acute kidney failure, unspecified Status: Acute Assessment and Plan: DEBI likely secondary to sepsis hypotension, fluid shift and hypovolemia Patient received fluid resuscitation and also 25% albumin CT scan does not show any hydronephrosis or obstruction Monitor urine output electrolytes and creatinine Patient has a hypokalemia, creatinine is trending down Replete with potassium chloride Consult foreign service officer Has resolved (8) Metabolic acidosis: Code(s): E87.20 - Acidosis, unspecified Status: Acute Assessment and Plan: Resolved DC bicarb Subjective Date/time seen: 11/08/24 09:48 Interval history: I saw exam patient in ICU. Patient still confused, no obvious distress NG tube in-situ. Blood pressure stable, low-grade fever 100, labs reviewed, patient leukocytosis [id number]. Chemistry showed acute renal failure has resolved Exam Narrative: General: , lethargic, ill-appearing Lungs/Chest: Trachea central Coarse BS B/L, No crackles or wheezing. Cardiac: RRR. Normal S1 S2. No murmurs Circulation: Abdomen: Decreased but present bowel sounds. HARLEY drain in place. Soft. Tender to palpation as patient grimaces on exam. NG tube in place Extremities: No clubbing, cyanosis or edema. Warm : Shen in place Neurologic: Patient is able to move all 4 extremities spontaneously. Objective Data Vital Signs Vital Signs: Vital Signs - 24 hr 11/07/24 10:00 11/07/24 10:00 11/07/24 10:07 Temperature 99.7 F H Pulse Rate 110 H 110 H 110 H Respiratory Rate 22 H 22 H Blood Pressure 94/69 L Pulse Oximetry 92 Oxygen Delivery Oxygen Flow Rate 11/07/24 12:00 11/07/24 12:00 11/07/24 12:00 Temperature 99.7 F H Pulse Rate 82 88 82 Respiratory Rate 25 H 25 H Blood Pressure 110/70 Pulse Oximetry 95 95 Oxygen Delivery Nasal Cannula Oxygen Flow Rate 2 11/07/24 12:02 11/07/24 13:45 11/07/24 14:00 Temperature Pulse Rate 82 87 79 Respiratory Rate 25 H 21 H Blood Pressure Pulse Oximetry Oxygen Delivery Oxygen Flow Rate 11/07/24 14:00 11/07/24 16:00 11/07/24 16:00 Temperature 99.8 F H 100.0 F H Pulse Rate 87 81 81 Respiratory Rate 21 H 21 H 21 H Blood Pressure 129/79 122/67 Pulse Oximetry 94 94 94 Oxygen Delivery Nasal Cannula Oxygen Flow Rate 2 11/07/24 16:00 11/07/24 18:00 11/07/24 18:00 Temperature 100.3 F H Pulse Rate 84 90 90 Respiratory Rate 30 H Blood Pressure 131/75 Pulse Oximetry 93 Oxygen Delivery Oxygen Flow Rate 11/07/24 19:10 11/07/24 20:00 11/07/24 20:00 Temperature 100.5 F H 100.4 F H Pulse Rate 84 Respiratory Rate 21 H Blood Pressure 138/79 Pulse Oximetry 95 92 Oxygen Delivery Nasal Cannula Oxygen Flow Rate 2 11/07/24 20:00 11/07/24 20:10 11/07/24 22:00 Temperature 100.2 F H Pulse Rate 86 80 Respiratory Rate Blood Pressure Pulse Oximetry Oxygen Delivery Oxygen Flow Rate 11/07/24 22:00 11/08/24 00:00 11/08/24 00:00 Temperature 99.9 F H Pulse Rate 80 78 Respiratory Rate 26 H Blood Pressure 135/77 Pulse Oximetry 91 90 Oxygen Delivery Nasal Cannula Oxygen Flow Rate 5 11/08/24 00:00 11/08/24 02:00 11/08/24 02:00 Temperature 99.2 F 99.3 F Pulse Rate 81 75 75 Respiratory Rate 21 H 19 Blood Pressure 158/86 H 136/77 Pulse Oximetry 90 94 Oxygen Delivery Oxygen Flow Rate 11/08/24 04:00 11/08/24 04:00 11/08/24 04:00 Temperature 99.9 F H Pulse Rate 77 75 Respiratory Rate 21 H Blood Pressure 143/80 H Pulse Oximetry 92 92 Oxygen Delivery Nasal Cannula Oxygen Flow Rate 5 11/08/24 06:00 11/08/24 06:00 11/08/24 08:00 Temperature 100.3 F H Pulse Rate 81 81 Respiratory Rate 20 Blood Pressure 159/84 H Pulse Oximetry 92 94 Oxygen Delivery Nasal Cannula Oxygen Flow Rate 5 11/08/24 08:00 11/08/24 08:00 Temperature 100.0 F H Pulse Rate 74 79 Respiratory Rate 26 H Blood Pressure 164/83 H Pulse Oximetry 94 Oxygen Delivery Oxygen Flow Rate Intake/Output Intake/Output: Intake & Output 11/05/24 11/06/24 11/07/24 11/08/24 23:59 23:59 23:59 23:59 Intake Total 2073.2 3070.0 2695.9 658.8 Output Total 596 2280 610 Balance 2073.2 2474.0 415.9 48.8 Meds/Results Medications: Active Medications Generic Name Dose Route Start Last Admin Trade Name Freq PRN Reason Stop Dose Admin Acetaminophen 650 mg 11/06/24 14:48 11/07/24 19:10 Acetaminophen 650 Mg Suppository RECTAL 650 mg Q4H PRN Administration Mild Pain (1-3) or Fever Dextrose 12.5 gm 11/06/24 07:40 Dextrose 50% 25 Gm/50 Ml Syringe IV PUSH PRN PRN Hypoglycemia Protocol Enoxaparin Sodium 30 mg 11/06/24 09:00 11/08/24 08:17 Enoxaparin 30 Mg/0.3 Ml Syringe SUB-Q 30 mg DAILY SOURAV Administration Folic Acid 1 mg 11/06/24 09:00 11/08/24 08:17 Folic Acid 1 Mg/0.2 Ml Inj IV PUSH 1 mg QAM SOURAV Administration Glucagon 1 mg 11/06/24 07:40 Glucagon For Inj 1 Mg Vial IM PRN PRN Hypoglycemia Protocol Glucose 15 gm 11/06/24 07:40 Glucose Oral Gel 15 Gm Of Glucse In 37.5 Gm Tube PO PRN PRN Hypoglycemia Protocol Dextrose 1,000 mls @ 100 mls/hr 11/06/24 07:40 Dextrose 5% 1,000 Ml IVPB PRN PRN Hypoglycemia Protocol Potassium Chloride/Dextrose/Sod Cl 1,000 mls @ 50 mls/hr 11/07/24 08:30 11/08/24 07:43 Kcl 20 Meq/D5/0.45% Sod Chl IV CONT 11/08/24 23:59 50 mls/hr .Q20H [facility] Infusion Piperacillin/Tazobactam/Dextrose 3.375 gm in 50 mls @ 100 mls/hr 11/08/24 12:00 Zosyn 3.375 Gm/Ns 50 Ml IVPB Q6H [facility] Insulin Aspart 2 - 5 units 11/08/24 12:00 Insulin Aspart (*Bkc) 100 Units/Ml SUB-Q Q6HR [facility] Protocol Morphine Sulfate 2 mg 11/08/24 07:39 Morphine Sulfate (*Crx) 2 Mg/Ml Inj IV PUSH Q2H PRN Moderate Pain (4-6) Morphine Sulfate 4 mg 11/08/24 07:39 11/08/24 08:17 Morphine Sulfate (*Crx) 4 Mg/Ml Inj IV PUSH 4 mg Q2H PRN Administration Pain Rated 7-10 Naloxone HCl 0.1 mg 11/06/24 00:01 Naloxone Hcl 0.4 Mg/Ml Vial IV PUSH Q2M PRN Opiate Reversal Ondansetron HCl 4 mg 11/06/24 00:01 Ondansetron Inj 4 Mg/2 Ml Vial IV PUSH Q4H PRN Nausea And Vomiting Pantoprazole Sodium 40 mg 11/06/24 09:00 11/08/24 08:17 Pantoprazole Sodium Iv 40 Mg Vial IV PUSH 40 mg Q12HR [facility] Administration Sodium Chloride 10 ml 11/06/24 14:00 11/08/24 05:49 Central Line Flush IV PUSH 10 ml Q8HR [facility] Administration Sodium Chloride 20 ml 11/06/24 09:59 Central Line Flush IV PUSH PRN PRN after blood draws Thiamine HCl 100 mg 11/06/24 09:00 11/08/24 08:17 Thiamine Hcl 200 Mg/2 Ml Vial IV PUSH 100 mg QAM SOURAV Administration Radiology Results: ITS Impressions Head CT 11/05/24 20:50 IMPRESSION: 1. Moderate nonspecific cerebral white matter disease, which likely represents chronic small vessel ischemic disease. 2. 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 Chest/Abdomen/Pelvis CT 11/05/24 20:55 IMPRESSION: 1. Free intraperitoneal gas, consistent with perforated viscus. I called this result to Dr. Woods. 2. Large volume of ascites. 3. Right lower lobe pneumonia. 4. Small pleural effusions. 5. Small pericardial effusion. 6. Nasogastric tube tip at the gastroesophageal junction. Abdomen X-Ray 11/07/24 17:42 IMPRESSION: 1. Nasogastric tube tip in the stomach. 2. Fold thickening of bowel, consistent with interstitial edema versus enterocolitis. 3. Airspace opacities in the perihilar regions and lower lung zones, consistent with atelectasis versus pneumonia. Chest X-Ray 11/08/24 06:02 Impression: Small right pleural effusion versus other hazy right basilar airspace disease. NG tube in place. Labs Labs: Laboratory Results - last 24 hr 11/07/24 11/07/24 11/07/24 11:35 12:27 16:16 WBC RBC Hgb Hct MCV MCH MCHC RDW Plt Count MPV Sodium 143 Potassium 3.3 L Chloride 107 Carbon Dioxide 34 H Anion Gap 2 L BUN 37 H Creatinine 1.70 H Estim Creat Clear Calc 29 Estimated GFR 40 L Glucose 80 POC Capillary Glucose 79 81 Calcium 8.1 L Magnesium Total Bilirubin AST ALT Alkaline Phosphatase Total Protein Albumin 11/07/24 11/07/24 11/08/24 20:18 23:31 05:55 WBC 11.2 H RBC 3.45 L Hgb 10.4 L Hct 32.1 L MCV 93.0 D MCH 30.1 MCHC 32.4 RDW 15.3 H Plt Count 159 MPV 10.5 H Sodium 142 Potassium 3.5 Chloride 113 H Carbon Dioxide 27 Anion Gap 2 L BUN 27 H D Creatinine 1.10 Estim Creat Clear Calc 44 Estimated GFR > 60 Glucose 88 POC Capillary Glucose 85 85 Calcium 8.0 L Magnesium 2.6 H Total Bilirubin 0.7 AST 27 ALT 13 Alkaline Phosphatase 56 Total Protein 5.0 L Albumin 3.4 L
--- NOTE | 2024-11-08 10:10 | PM.PNGS ---
Progress Note: A&P Assessment and Plan (1) Perforated gastric ulcer: Code(s): K25.5 - Chronic or unspecified gastric ulcer with perforation Status: Acute Assessment and Plan: will get UGI thru NG today, cont IV abx and drain/NG for now, ok to transfer to IMU Subjective Subjective Date/Time Seen: 11/08/24 10:10 Interval history: a little more alert today, wants water Review of Systems Review of Systems: ROS unobtainable: Yes unobtainable due to medical condition Exam Const: General: cooperative, comfortable, no acute distress, ill appearing and tired appearing Resp: Auscultation: diminished lung sounds Cardio: Rate: regular rate Rhythm: regular rhythm GI: GI Palp: Yes abdominal tenderness, Yes Soft to palpation, No Firmness to palpation present (GI) and Yes Tenderness to palpation present (GI) Other: HARLEY c minimal serous drainage Objective Data Vital Signs Vital Signs: Vital Signs - 24 hr 11/07/24 12:00 11/07/24 12:00 11/07/24 12:00 Temperature 37.6 C H Pulse Rate 82 88 82 Respiratory Rate 25 H 25 H Blood Pressure 110/70 Pulse Oximetry 95 95 Oxygen Delivery Nasal Cannula Oxygen Flow Rate 2 11/07/24 12:02 11/07/24 13:45 11/07/24 14:00 Temperature Pulse Rate 82 87 79 Respiratory Rate 25 H 21 H Blood Pressure Pulse Oximetry Oxygen Delivery Oxygen Flow Rate 11/07/24 14:00 11/07/24 16:00 11/07/24 16:00 Temperature 37.7 C H 37.8 C H Pulse Rate 87 81 81 Respiratory Rate 21 H 21 H 21 H Blood Pressure 129/79 122/67 Pulse Oximetry 94 94 94 Oxygen Delivery Nasal Cannula Oxygen Flow Rate 2 11/07/24 16:00 11/07/24 18:00 11/07/24 18:00 Temperature 37.9 C H Pulse Rate 84 90 90 Respiratory Rate 30 H Blood Pressure 131/75 Pulse Oximetry 93 Oxygen Delivery Oxygen Flow Rate 11/07/24 19:10 11/07/24 20:00 11/07/24 20:00 Temperature 38.1 C H 38.0 C H Pulse Rate 84 Respiratory Rate 21 H Blood Pressure 138/79 Pulse Oximetry 95 92 Oxygen Delivery Nasal Cannula Oxygen Flow Rate 2 11/07/24 20:00 11/07/24 20:10 11/07/24 22:00 Temperature 37.9 C H Pulse Rate 86 80 Respiratory Rate Blood Pressure Pulse Oximetry Oxygen Delivery Oxygen Flow Rate 11/07/24 22:00 11/08/24 00:00 11/08/24 00:00 Temperature 37.7 C H Pulse Rate 80 78 Respiratory Rate 26 H Blood Pressure 135/77 Pulse Oximetry 91 90 Oxygen Delivery Nasal Cannula Oxygen Flow Rate 5 11/08/24 00:00 11/08/24 02:00 11/08/24 02:00 Temperature 37.3 C 37.4 C Pulse Rate 81 75 75 Respiratory Rate 21 H 19 Blood Pressure 158/86 H 136/77 Pulse Oximetry 90 94 Oxygen Delivery Oxygen Flow Rate 11/08/24 04:00 11/08/24 04:00 11/08/24 04:00 Temperature 37.7 C H Pulse Rate 77 75 Respiratory Rate 21 H Blood Pressure 143/80 H Pulse Oximetry 92 92 Oxygen Delivery Nasal Cannula Oxygen Flow Rate 5 11/08/24 06:00 11/08/24 06:00 11/08/24 08:00 Temperature 37.9 C H Pulse Rate 81 81 Respiratory Rate 20 Blood Pressure 159/84 H Pulse Oximetry 92 94 Oxygen Delivery Nasal Cannula Oxygen Flow Rate 5 11/08/24 08:00 11/08/24 08:00 Temperature 37.8 C H Pulse Rate 74 79 Respiratory Rate 26 H Blood Pressure 164/83 H Pulse Oximetry 94 Oxygen Delivery Oxygen Flow Rate Intake/Output Intake/Output: Intake & Output 11/05/24 11/06/24 11/07/24 11/08/24 23:59 23:59 23:59 23:59 Intake Total 2073.2 3070.0 2695.9 658.8 Output Total 596 2280 610 Balance 2073.2 2474.0 415.9 48.8 Meds/Results Medications: Active Medications Generic Name Dose Route Start Last Admin Trade Name Freq PRN Reason Stop Dose Admin Acetaminophen 650 mg 11/06/24 14:48 11/07/24 19:10 Acetaminophen 650 Mg Suppository RECTAL 650 mg Q4H PRN Administration Mild Pain (1-3) or Fever Dextrose 12.5 gm 11/06/24 07:40 Dextrose 50% 25 Gm/50 Ml Syringe IV PUSH PRN PRN Hypoglycemia Protocol Enoxaparin Sodium 30 mg 11/06/24 09:00 11/08/24 08:17 Enoxaparin 30 Mg/0.3 Ml Syringe SUB-Q 30 mg DAILY SOURAV Administration Folic Acid 1 mg 11/06/24 09:00 11/08/24 08:17 Folic Acid 1 Mg/0.2 Ml Inj IV PUSH 1 mg QAM SOURAV Administration Glucagon 1 mg 11/06/24 07:40 Glucagon For Inj 1 Mg Vial IM PRN PRN Hypoglycemia Protocol Glucose 15 gm 11/06/24 07:40 Glucose Oral Gel 15 Gm Of Glucse In 37.5 Gm Tube PO PRN PRN Hypoglycemia Protocol Dextrose 1,000 mls @ 100 mls/hr 11/06/24 07:40 Dextrose 5% 1,000 Ml IVPB PRN PRN Hypoglycemia Protocol Potassium Chloride/Dextrose/Sod Cl 1,000 mls @ 50 mls/hr 11/07/24 08:30 11/08/24 07:43 Kcl 20 Meq/D5/0.45% Sod Chl IV CONT 11/08/24 23:59 50 mls/hr .Q20H [facility] Infusion Piperacillin/Tazobactam/Dextrose 3.375 gm in 50 mls @ 100 mls/hr 11/08/24 12:00 Zosyn 3.375 Gm/Ns 50 Ml IVPB Q6H [facility] Insulin Aspart 2 - 5 units 11/08/24 12:00 Insulin Aspart (*Bkc) 100 Units/Ml SUB-Q Q6HR [facility] Protocol Morphine Sulfate 2 mg 11/08/24 07:39 Morphine Sulfate (*Crx) 2 Mg/Ml Inj IV PUSH Q2H PRN Moderate Pain (4-6) Morphine Sulfate 4 mg 11/08/24 07:39 11/08/24 08:17 Morphine Sulfate (*Crx) 4 Mg/Ml Inj IV PUSH 4 mg Q2H PRN Administration Pain Rated 7-10 Naloxone HCl 0.1 mg 11/06/24 00:01 Naloxone Hcl 0.4 Mg/Ml Vial IV PUSH Q2M PRN Opiate Reversal Ondansetron HCl 4 mg 11/06/24 00:01 Ondansetron Inj 4 Mg/2 Ml Vial IV PUSH Q4H PRN Nausea And Vomiting Pantoprazole Sodium 40 mg 11/06/24 09:00 11/08/24 08:17 Pantoprazole Sodium Iv 40 Mg Vial IV PUSH 40 mg Q12HR [facility] Administration Sodium Chloride 10 ml 12/17/24 14:00 11/08/24 05:49 Central Line Flush IV PUSH 10 ml Q8HR [facility] Administration Sodium Chloride 20 ml 11/06/24 09:59 Central Line Flush IV PUSH PRN PRN after blood draws Thiamine HCl 100 mg 11/06/24 09:00 11/08/24 08:17 Thiamine Hcl 200 Mg/2 Ml Vial IV PUSH 100 mg QAM SOURAV Administration Radiology Results: ITS Impressions Head CT 11/05/24 20:50 IMPRESSION: 1. Moderate nonspecific cerebral white matter disease, which likely represents chronic small vessel ischemic disease. 2. 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 Chest/Abdomen/Pelvis CT 11/05/24 20:55 IMPRESSION: 1. Free intraperitoneal gas, consistent with perforated viscus. I called this result to Dr. Woods. 2. Large volume of ascites. 3. Right lower lobe pneumonia. 4. Small pleural effusions. 5. Small pericardial effusion. 6. Nasogastric tube tip at the gastroesophageal junction. Abdomen X-Ray 11/07/24 17:42 IMPRESSION: 1. Nasogastric tube tip in the stomach. 2. Fold thickening of bowel, consistent with interstitial edema versus enterocolitis. 3. Airspace opacities in the perihilar regions and lower lung zones, consistent with atelectasis versus pneumonia. Chest X-Ray 11/08/24 06:02 Impression: Small right pleural effusion versus other hazy right basilar airspace disease. NG tube in place. Labs Labs: Laboratory Results - last 24 hr 11/07/24 11/07/24 11/07/24 11:35 12:27 16:16 WBC RBC Hgb Hct MCV MCH MCHC RDW Plt Count MPV Sodium 143 Potassium 3.3 L Chloride 107 Carbon Dioxide 34 H Anion Gap 2 L BUN 37 H Creatinine 1.70 H Estim Creat Clear Calc 29 Estimated GFR 40 L Glucose 80 POC Capillary Glucose 79 81 Calcium 8.1 L Magnesium Total Bilirubin AST ALT Alkaline Phosphatase Total Protein Albumin 11/07/24 11/07/24 11/08/24 20:18 23:31 05:55 WBC 11.2 H RBC 3.45 L Hgb 10.4 L Hct 32.1 L MCV 93.0 D MCH 30.1 MCHC 32.4 RDW 15.3 H Plt Count 159 MPV 10.5 H Sodium 142 Potassium 3.5 Chloride 113 H Carbon Dioxide 27 Anion Gap 2 L BUN 27 H D Creatinine 1.10 Estim Creat Clear Calc 44 Estimated GFR > 60 Glucose 88 POC Capillary Glucose 85 85 Calcium 8.0 L Magnesium 2.6 H Total Bilirubin 0.7 AST 27 ALT 13 Alkaline Phosphatase 56 Total Protein 5.0 L Albumin 3.4 L
[2024-11-08 11:41] LABS: Glucose Point of Care 81 mg/dl (65-105)
[2024-11-08] MEDS: PIPERACILLN/TAZ 3.375GM/NS50ML 3.375 GM/50 ML BAG IVPB ×2 (11:45→17:06)
--- NOTE | 2024-11-08 12:46 | PCFNICU ---
ICU Rounding Note: Pt current nutrition is NPO x 4 days. Last recorded weight is 53 kg, stable Bowel Motility: Last reported BM 11/08 Labs Reviewed: Mg 2.6, BUN 27, Alb 3.4 Meds Noted:thiamine, folic acid, NovoLog. Skin: WNL Additional Notes: Patient getting Upper GI series today. Surgery starting tube feedings of Vital AF 1.2 at 20 ml/hr today. Flush 30 ml q 4 hours. Agree with diet orders. Following daily in ICU rounds. Will monitor weight, labs, skin, diet orders, meds daily in ICU and reassessing every Tuesday and Tuesday.
[2024-11-08] MEDS: KCL 20 MEQ/D5/0.45% SOD CHL 1,000 ML 50 ML IV CONT (17:04)
[2024-11-08 17:16] LABS: Glucose Point of Care 95 mg/dl (65-105)
[2024-11-08] MEDS: HYDROcodone/acetaminophen (*CRX) 5-325 MG TABLET 1 TAB FEED TUBE (20:14)
[2024-11-09] VITALS (19 sets, daily range): BP systolic 127–176; BP diastolic 74–97; PULSE 73–97; RESP 15–26; TEMP 37.2–38.1; O2SAT 91–97
[2024-11-09] MEDS: PIPERACILLN/TAZ 3.375GM/NS50ML 3.375 GM/50 ML BAG IVPB ×5 (00:18→23:54)
[2024-11-09 00:28] LABS: Glucose Point of Care 109 mg/dl (65-105)
[2024-11-09] MEDS: HYDROcodone/acetaminophen (*CRX) 5-325 MG TABLET 1 TAB FEED TUBE (02:02)
[2024-11-09 04:10] LABS: Hematocrit 35.3 % (42.0-52.0); Mean Corpuscular HGB Conc 31.2 g/dl (32-36); Mean Corpuscular Hemoglobin 29.1 pg (26-34); Mean Corpuscular Volume 93.4 fl (80-100); Mean Platelet Volume 10.2 fl (7.4-10.4); Platelet Count Result 139 k/mm3 (150-375); Red Blood Count 3.78 M/mm3 (4.6-6.20); Red Cell Distribution Width 15.5 % (11.5-14.5); White Blood Count 12.3 K/mm3 (4.5-10.0)
[2024-11-09 04:22] LABS: Alanine Aminotransferase 12 U/L (6-50); Albumin Level 3.1 g/dL (3.5-5.1); Alkaline Phosphatase 72 U/L (38-126); Anion Gap 2 mmol/L (4-12); Aspartate Amino Transferase 21 U/L (17-59); Bilirubin,Total 0.9 mg/dL (0.2-1.3); Blood Urea Nitrogen 22 mg/dL (9-20); Calcium 8.1 mg/dL (8.4-10.2); Carbon Dioxide 30 mmol/L (22-30); Chloride 114 mmol/L (98-107); Estimated CRCL calculation 46 ml/min; Estimated Glomerular Filt Rate > 60; Glucose 119 mg/dL (65-110); Magnesium 2.5 mg/dL (1.6-2.3); Potassium 3.6 mmol/L (3.4-5.0); Sodium 146 mmol/L (137-145)
[2024-11-09 06:57] LABS: Glucose Point of Care 117 mg/dl (65-105)
[2024-11-09] MEDS: PANTOPRAZOLE SODIUM IV 40 MG VIAL IV PUSH ×2 (10:00→21:32)
[2024-11-09] MEDS: ENOXAPARIN 30 MG/0.3 ML SYRINGE SUB-Q (10:00)
[2024-11-09] MEDS: FOLIC ACID 1 MG/0.2 ML INJ IV PUSH (10:00)
[2024-11-09] MEDS: THIAMINE HCL 200 MG/2 ML VIAL 100 MG IV PUSH (10:02)
--- NOTE | 2024-11-09 10:44 | PM.PNGS ---
Progress Note: A&P Assessment and Plan (1) Perforated gastric ulcer: Code(s): K25.5 - Chronic or unspecified gastric ulcer with perforation Status: Acute Assessment and Plan: UGI c no leak, driss trophic feeds, slowly increase feeds to goal Subjective Subjective Date/Time Seen: 11/09/24 10:44 Interval history: still quite confused, driss trophic feeds, multiple loose BMs Review of Systems Review of Systems: ROS unobtainable: Yes unobtainable due to mental status Exam Const: General: no acute distress, confusion and tired appearing Resp: Auscultation: diminished lung sounds Cardio: Rate: regular rate Rhythm: regular rhythm GI: Inspection: normal to inspection and incision GI Palp: Yes abdominal tenderness and Yes Soft to palpation Other: HARLEY c minimal serous output Objective Data Vital Signs Vital Signs: Vital Signs - 24 hr 11/08/24 12:00 11/08/24 12:00 11/08/24 12:00 Temperature 37.5 C Pulse Rate 75 76 Respiratory Rate 18 Blood Pressure 147/81 H Pulse Oximetry 96 94 Oxygen Delivery Nasal Cannula Oxygen Flow Rate 5 Fraction of Inspired Oxygen 11/08/24 14:00 11/08/24 16:00 11/08/24 16:00 Temperature 37.7 C H Pulse Rate 84 81 83 Respiratory Rate 22 H Blood Pressure 159/90 H Pulse Oximetry 94 Oxygen Delivery Oxygen Flow Rate Fraction of Inspired Oxygen 11/08/24 16:00 11/08/24 18:00 11/08/24 20:00 Temperature Pulse Rate 83 Respiratory Rate Blood Pressure Pulse Oximetry 94 95 Oxygen Delivery Nasal Cannula Nasal Cannula Oxygen Flow Rate 5 5 Fraction of Inspired Oxygen 11/08/24 20:00 11/08/24 20:00 11/08/24 20:27 Temperature 38.1 C H Pulse Rate 81 83 Respiratory Rate 27 H Blood Pressure 168/93 H Pulse Oximetry 95 95 Oxygen Delivery Nasal Cannula Oxygen Flow Rate 5 Fraction of Inspired Oxygen 11/08/24 22:00 11/08/24 23:00 11/09/24 00:00 Temperature 37.7 C H Pulse Rate 79 72 Respiratory Rate 16 Blood Pressure 145/90 H Pulse Oximetry 97 97 Oxygen Delivery Nasal Cannula Oxygen Flow Rate 5 Fraction of Inspired Oxygen 11/09/24 00:00 11/09/24 00:00 11/09/24 01:00 Temperature 37.7 C H 37.7 C H Pulse Rate 74 75 80 Respiratory Rate 24 H 20 Blood Pressure 163/87 H 150/74 H Pulse Oximetry 97 95 Oxygen Delivery Oxygen Flow Rate Fraction of Inspired Oxygen 11/09/24 02:00 11/09/24 04:00 11/09/24 04:00 Temperature Pulse Rate 80 83 Respiratory Rate Blood Pressure Pulse Oximetry 96 Oxygen Delivery Nasal Cannula Oxygen Flow Rate 3 Fraction of Inspired Oxygen 11/09/24 04:00 11/09/24 06:00 11/09/24 08:00 Temperature 37.4 C 37.2 C Pulse Rate 74 73 76 Respiratory Rate 15 21 H Blood Pressure 127/87 167/81 H Pulse Oximetry 96 93 Oxygen Delivery Oxygen Flow Rate Fraction of Inspired Oxygen 11/09/24 08:48 Temperature Pulse Rate Respiratory Rate Blood Pressure Pulse Oximetry 94 Oxygen Delivery Nasal Cannula Oxygen Flow Rate 3 Fraction of Inspired Oxygen 32 Intake/Output Intake/Output: Intake & Output 11/06/24 11/07/24 11/08/24 11/09/24 23:59 23:59 23:59 23:59 Intake Total 3070.0 2695.9 1278.0 100 Output Total 596 2280 1315 600 Balance 2474.0 415.9 -37.0 -500 Meds/Results Medications: Active Medications Generic Name Dose Route Start Last Admin Trade Name Freq PRN Reason Stop Dose Admin Acetaminophen 650 mg 11/06/24 14:48 11/07/24 19:10 Acetaminophen 650 Mg Suppository RECTAL 650 mg Q4H PRN Administration Mild Pain (1-3) or Fever Acetaminophen 650 mg 11/08/24 13:37 Acetaminophen 325 Mg Tablet FEED TUBE Q4H PRN Headache, Fever, Mild Pain Hydrocodone Bitart/Acetaminophen 1 tab 11/08/24 13:37 11/09/24 02:02 Hydrocodone/Acetaminophen (*Crx) 5-325 Mg Tablet FEED TUBE 1 tab Q4H PRN Administration Pain Rated 4-6 Dextrose 12.5 gm 11/06/24 07:40 Dextrose 50% 25 Gm/50 Ml Syringe IV PUSH PRN PRN Hypoglycemia Protocol Enoxaparin Sodium 30 mg 11/06/24 09:00 11/09/24 10:00 Enoxaparin 30 Mg/0.3 Ml Syringe SUB-Q 30 mg DAILY SOURAV Administration Folic Acid 1 mg 11/06/24 09:00 11/09/24 10:00 Folic Acid 1 Mg/0.2 Ml Inj IV PUSH 1 mg QAM SOURAV Administration Glucagon 1 mg 11/06/24 07:40 Glucagon For Inj 1 Mg Vial IM PRN PRN Hypoglycemia Protocol Glucose 15 gm 11/06/24 07:40 Glucose Oral Gel 15 Gm Of Glucse In 37.5 Gm Tube PO PRN PRN Hypoglycemia Protocol Dextrose 1,000 mls @ 100 mls/hr 11/06/24 07:40 Dextrose 5% 1,000 Ml IVPB PRN PRN Hypoglycemia Protocol Piperacillin/Tazobactam/Dextrose 3.375 gm in 50 mls @ 100 mls/hr 11/08/24 12:00 11/09/24 07:18 Zosyn 3.375 Gm/Ns 50 Ml IVPB Infused Q6H SOURAV Infusion Insulin Aspart 2 - 5 units 11/08/24 12:00 11/09/24 06:48 Insulin Aspart (*Bkc) 100 Units/Ml SUB-Q Not Given Q6HR [facility] Protocol Morphine Sulfate 2 mg 11/08/24 07:39 Morphine Sulfate (*Crx) 2 Mg/Ml Inj IV PUSH Q2H PRN Moderate Pain (4-6) Morphine Sulfate 4 mg 11/08/24 07:39 11/08/24 08:17 Morphine Sulfate (*Crx) 4 Mg/Ml Inj IV PUSH 4 mg Q2H PRN Administration Pain Rated 7-10 Naloxone HCl 0.1 mg 11/06/24 00:01 Naloxone Hcl 0.4 Mg/Ml Vial IV PUSH Q2M PRN Opiate Reversal Ondansetron HCl 4 mg 11/06/24 00:01 Ondansetron Inj 4 Mg/2 Ml Vial IV PUSH Q4H PRN Nausea And Vomiting Pantoprazole Sodium 40 mg 11/06/24 09:00 11/09/24 10:00 Pantoprazole Sodium Iv 40 Mg Vial IV PUSH 40 mg Q12HR SOURAV Administration Thiamine HCl 100 mg 11/06/24 09:00 11/09/24 10:02 Thiamine Hcl 200 Mg/2 Ml Vial IV PUSH 100 mg QAM SOURAV Administration Radiology Results: ITS Impressions Head CT 11/05/24 20:50 IMPRESSION: 1. Moderate nonspecific cerebral white matter disease, which likely represents chronic small vessel ischemic disease. 2. 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 Chest/Abdomen/Pelvis CT 11/05/24 20:55 IMPRESSION: 1. Free intraperitoneal gas, consistent with perforated viscus. I called this result to Dr. Woods. 2. Large volume of ascites. 3. Right lower lobe pneumonia. 4. Small pleural effusions. 5. Small pericardial effusion. 6. Nasogastric tube tip at the gastroesophageal junction. Abdomen X-Ray 11/07/24 17:42 IMPRESSION: 1. Nasogastric tube tip in the stomach. 2. Fold thickening of bowel, consistent with interstitial edema versus enterocolitis. 3. Airspace opacities in the perihilar regions and lower lung zones, consistent with atelectasis versus pneumonia. Upper GI Series 11/08/24 12:17 IMPRESSION: 1. Slow gastric emptying likely related to postoperative ileus. No extraluminal leakage of contrast. Chest X-Ray 11/09/24 06:43 Impression: Small bilateral pleural effusions and mild bibasilar pulmonary edema. NG tube in place. Labs Labs: Laboratory Results - last 24 hr 11/08/24 11/08/24 11/09/24 11:33 17:05 00:11 WBC RBC Hgb Hct MCV MCH MCHC RDW Plt Count MPV Sodium Potassium Chloride Carbon Dioxide Anion Gap BUN Creatinine Estim Creat Clear Calc Estimated GFR Glucose POC Capillary Glucose 81 95 109 H Calcium Magnesium Total Bilirubin AST ALT Alkaline Phosphatase Total Protein Albumin 11/09/24 11/09/24 04:00 06:38 WBC 12.3 H RBC 3.78 L Hgb 11.0 L Hct 35.3 L MCV 93.4 MCH 29.1 MCHC 31.2 L RDW 15.5 H Plt Count 139 L MPV 10.2 Sodium 146 H Potassium 3.6 Chloride 114 H Carbon Dioxide 30 Anion Gap 2 L BUN 22 H Creatinine 1.00 Estim Creat Clear Calc 46 Estimated GFR > 60 Glucose 119 H POC Capillary Glucose 117 H Calcium 8.1 L Magnesium 2.5 H Total Bilirubin 0.9 AST 21 ALT 12 Alkaline Phosphatase 72 Total Protein 6.0 L Albumin 3.1 L
--- NOTE | 2024-11-09 11:54 | PCNFU ---
Nutrition Follow-Up Complete: Alerted GI function as related to perforated gastric ulcer as evidenced by NPO. Goal: Meet estimated nutritional needs. Patient is progressing towards goal. We will continue current goal. Pt current nutrition is Vital AF 1.2 a 20 ml/hr . Nutrition recommendation: goal rate 50 ml/hr at this time. Last recorded weight is 53.5 kg, stable Bowel Motility:+BM reported 11/09 Labs Reviewed:Mg 2.5, BUN 22, Na 146 Meds Noted: Thiamine, Folic Acid, NovoLog Skin: WNL Additional Notes: Patient remains on NGT feedings today. Spoke with nursing plans to advance tube feedings today as tolerated. Recommend goal rate at 50 ml/hr at this time. 1320 kcal/83 gm protein/892 ml water. Flush 30 ml q 4 hours. Tube feedings providing 70% kcal needs at 35 kcal/kg and 100% protein needs at 1.2-1.4 gm/kg. Recommend advancing after 72 hours to goal rate of 70 ml/hr. Agree with diet orders. Will monitor weight, labs, skin, diet orders, meds daily in ICU and reassessing every Tuesday and Tuesday.
[2024-11-09 12:00] LABS: Glucose Point of Care 108 mg/dl (65-105)
--- NOTE | 2024-11-09 15:03 | P.PNIM_ITS ---
Progress Note: A&P Assessment and Plan (1) Metabolic acidosis: Code(s): E87.20 - Acidosis, unspecified Status: Acute (2) DEBI (acute kidney injury): Code(s): N17.9 - Acute kidney failure, unspecified Status: Acute (3) Perforated gastric ulcer: Code(s): K25.5 - Chronic or unspecified gastric ulcer with perforation Status: Acute (4) COPD (chronic obstructive pulmonary disease): Code(s): J44.9 - Chronic obstructive pulmonary disease, unspecified Status: Acute (5) Sepsis: Code(s): A41.9 - Sepsis, unspecified organism Status: Acute (6) Pneumonia: Code(s): J18.9 - Pneumonia, unspecified organism Status: Acute (7) Acute hypoxic respiratory failure: Code(s): J96.01 - Acute respiratory failure with hypoxia Status: Acute (8) Sepsis associated hypotension: Code(s): A41.9 - Sepsis, unspecified organism; I95.9 - Hypotension, unspecified Status: Acute (9) EtOH dependence: Code(s): F10.20 - Alcohol dependence, uncomplicated Status: Acute Plan Acute hypoxic respiratory failure: Acute Respiratory failure secondary to sepsis, perforated gastric ulcer, general anaesthesia Extubated Sepsis, unspecified organism Sepsis secondary to right lower lobe pneumonia which is likely aspiration, perforated gastric ulcer and peritonitis Continue empiric Zosyn Management of perforated gastric ulcer as below off IV fluids Received 25% albumin and vasopressors Patient is hemodynamically stable, off pressors Still has low-grade fever, mild leukocytosis, blood culture has no growth so far Pneumonia: CT scan shows right lower lobe pneumonia which is likely aspiration. Continue Zosyn EtOH dependence: Thiamine and folic acid ordered Patient is confused, COPD Not in exacerbation Bronchodilators ordered Perforated gastric ulcer: Chronic or unspecified gastric ulcer with perforation Status post exploratory laparotomy, extensive lysis of adhesions, intra- abdominal washout, repair of perforated gastric ulcer with omental patch HARLEY drain placed Dressing on the surgical incision Management and feeding as per General surgery Patient is on Zosyn DEBI DEBI likely secondary to sepsis hypotension, fluid shift and hypovolemia Patient received fluid resuscitation and also 25% albumin CT scan does not show any hydronephrosis or obstruction Monitor urine output electrolytes and creatinine Patient has a hypokalemia, creatinine is trending down Replete with potassium chloride 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 Discussed with the nursing team. Reports congestion and evidence of pleural effusion on chest x-ray. Given Lasix 40 mg IV push 1 time. Ordered albuterol and Mucomyst Cornechristiano. Review of Systems Review of Systems: ROS unobtainable: Yes unobtainable due to endotracheal tube, unobtainable due to medical condition and unobtainable due to mental status Exam Narrative: General: , lethargic, ill-appearing Lungs/Chest: Trachea central Coarse BS B/L, No crackles or wheezing. Cardiac: RRR. Normal S1 S2. No murmurs Circulation: Abdomen: Decreased but present bowel sounds. HARLEY drain in place. Soft. Tender to palpation as patient grimaces on exam. NG tube in place Extremities: No clubbing, cyanosis or edema. Warm : Shen in place Neurologic: Patient is able to move all 4 extremities spontaneously. Objective Data Vital Signs Vital Signs: Vital Signs - 24 hr 11/08/24 16:00 11/08/24 16:00 11/08/24 16:00 Temperature 99.8 F H Pulse Rate 81 83 Respiratory Rate 22 H Blood Pressure 159/90 H Pulse Oximetry 94 94 Oxygen Delivery Nasal Cannula Oxygen Flow Rate 5 Fraction of Inspired Oxygen 11/08/24 18:00 11/08/24 20:00 11/08/24 20:00 Temperature 100.5 F H Pulse Rate 83 81 Respiratory Rate 27 H Blood Pressure 168/93 H Pulse Oximetry 95 95 Oxygen Delivery Nasal Cannula Oxygen Flow Rate 5 Fraction of Inspired Oxygen 11/08/24 20:00 11/08/24 20:27 11/08/24 22:00 Temperature Pulse Rate 83 79 Respiratory Rate Blood Pressure Pulse Oximetry 95 Oxygen Delivery Nasal Cannula Oxygen Flow Rate 5 Fraction of Inspired Oxygen 11/08/24 23:00 11/09/24 00:00 11/09/24 00:00 Temperature 99.9 F H 99.9 F H Pulse Rate 72 74 Respiratory Rate 16 24 H Blood Pressure 145/90 H 163/87 H Pulse Oximetry 97 97 97 Oxygen Delivery Nasal Cannula Oxygen Flow Rate 5 Fraction of Inspired Oxygen 11/09/24 00:00 11/09/24 01:00 11/09/24 02:00 Temperature 99.9 F H Pulse Rate 75 80 80 Respiratory Rate 20 Blood Pressure 150/74 H Pulse Oximetry 95 Oxygen Delivery Oxygen Flow Rate Fraction of Inspired Oxygen 11/09/24 04:00 11/09/24 04:00 11/09/24 04:00 Temperature 99.3 F Pulse Rate 83 74 Respiratory Rate 15 Blood Pressure 127/87 Pulse Oximetry 96 96 Oxygen Delivery Nasal Cannula Oxygen Flow Rate 3 Fraction of Inspired Oxygen 11/09/24 06:00 11/09/24 08:00 11/09/24 08:48 Temperature 98.9 F Pulse Rate 73 76 Respiratory Rate 21 H Blood Pressure 167/81 H Pulse Oximetry 93 94 Oxygen Delivery Nasal Cannula Oxygen Flow Rate 3 Fraction of Inspired Oxygen 32 11/09/24 12:00 Temperature 100.2 F H Pulse Rate 83 Respiratory Rate 20 Blood Pressure 176/86 H Pulse Oximetry 96 Oxygen Delivery Oxygen Flow Rate Fraction of Inspired Oxygen Intake/Output Intake/Output: Intake & Output 11/06/24 11/07/24 11/08/24 11/09/24 23:59 23:59 23:59 23:59 Intake Total 3070.0 2695.9 1278.0 100 Output Total 596 2280 1315 600 Balance 2474.0 415.9 -37.0 -500 Meds/Results Medications: Active Medications Generic Name Dose Route Start Last Admin Trade Name Freq PRN Reason Stop Dose Admin Acetaminophen 650 mg 11/06/24 14:48 11/07/24 19:10 Acetaminophen 650 Mg Suppository RECTAL 650 mg Q4H PRN Administration Mild Pain (1-3) or Fever Acetaminophen 650 mg 11/08/24 13:37 Acetaminophen 325 Mg Tablet FEED TUBE Q4H PRN Headache, Fever, Mild Pain Hydrocodone Bitart/Acetaminophen 1 tab 11/08/24 13:37 11/09/24 02:02 Hydrocodone/Acetaminophen (*Crx) 5-325 Mg Tablet FEED TUBE 1 tab Q4H PRN Administration Pain Rated 4-6 Dextrose 12.5 gm 11/06/24 07:40 Dextrose 50% 25 Gm/50 Ml Syringe IV PUSH PRN PRN Hypoglycemia Protocol Enoxaparin Sodium 30 mg 11/06/24 09:00 11/09/24 10:00 Enoxaparin 30 Mg/0.3 Ml Syringe SUB-Q 30 mg DAILY SOURAV Administration Folic Acid 1 mg 11/06/24 09:00 11/09/24 10:00 Folic Acid 1 Mg/0.2 Ml Inj IV PUSH 1 mg QAM SOURAV Administration Glucagon 1 mg 11/06/24 07:40 Glucagon For Inj 1 Mg Vial IM PRN PRN Hypoglycemia Protocol Glucose 15 gm 11/06/24 07:40 Glucose Oral Gel 15 Gm Of Glucse In 37.5 Gm Tube PO PRN PRN Hypoglycemia Protocol Dextrose 1,000 mls @ 100 mls/hr 11/06/24 07:40 Dextrose 5% 1,000 Ml IVPB PRN PRN Hypoglycemia Protocol Piperacillin/Tazobactam/Dextrose 3.375 gm in 50 mls @ 100 mls/hr 11/08/24 12:00 11/09/24 12:19 Zosyn 3.375 Gm/Ns 50 Ml IVPB 100 mls/hr Q6H SOURAV Administration Insulin Aspart 2 - 5 units 11/08/24 12:00 11/09/24 12:15 Insulin Aspart (*Bkc) 100 Units/Ml SUB-Q Not Given Q6HR SOURAV Protocol Morphine Sulfate 2 mg 11/08/24 07:39 Morphine Sulfate (*Crx) 2 Mg/Ml Inj IV PUSH Q2H PRN Moderate Pain (4-6) Morphine Sulfate 4 mg 11/08/24 07:39 11/08/24 08:17 Morphine Sulfate (*Crx) 4 Mg/Ml Inj IV PUSH 4 mg Q2H PRN Administration Pain Rated 7-10 Naloxone HCl 0.1 mg 11/06/24 00:01 Naloxone Hcl 0.4 Mg/Ml Vial IV PUSH Q2M PRN Opiate Reversal Ondansetron HCl 4 mg 11/06/24 00:01 Ondansetron Inj 4 Mg/2 Ml Vial IV PUSH Q4H PRN Nausea And Vomiting Pantoprazole Sodium 40 mg 11/06/24 09:00 11/09/24 10:00 Pantoprazole Sodium Iv 40 Mg Vial IV PUSH 40 mg Q12HR SOURAV Administration Thiamine HCl 100 mg 11/06/24 09:00 11/09/24 10:02 Thiamine Hcl 200 Mg/2 Ml Vial IV PUSH 100 mg QAM SOURAV Administration Radiology Results: ITS Impressions Head CT 11/05/24 20:50 IMPRESSION: 1. Moderate nonspecific cerebral white matter disease, which likely represents chronic small vessel ischemic disease. 2. 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 Chest/Abdomen/Pelvis CT 11/05/24 20:55 IMPRESSION: 1. Free intraperitoneal gas, consistent with perforated viscus. I called this result to Dr. Woods. 2. Large volume of ascites. 3. Right lower lobe pneumonia. 4. Small pleural effusions. 5. Small pericardial effusion. 6. Nasogastric tube tip at the gastroesophageal junction. Abdomen X-Ray 11/07/24 17:42 IMPRESSION: 1. Nasogastric tube tip in the stomach. 2. Fold thickening of bowel, consistent with interstitial edema versus enterocolitis. 3. Airspace opacities in the perihilar regions and lower lung zones, consistent with atelectasis versus pneumonia. Upper GI Series 11/08/24 12:17 IMPRESSION: 1. Slow gastric emptying likely related to postoperative ileus. No extraluminal leakage of contrast. Chest X-Ray 11/09/24 06:43 Impression: Small bilateral pleural effusions and mild bibasilar pulmonary edema. NG tube in place. Labs Labs: Laboratory Results - last 24 hr 11/08/24 11/09/24 11/09/24 17:05 00:11 04:00 WBC 12.3 H RBC 3.78 L Hgb 11.0 L Hct 35.3 L MCV 93.4 MCH 29.1 MCHC 31.2 L RDW 15.5 H Plt Count 139 L MPV 10.2 Sodium 146 H Potassium 3.6 Chloride 114 H Carbon Dioxide 30 Anion Gap 2 L BUN 22 H Creatinine 1.00 Estim Creat Clear Calc 46 Estimated GFR > 60 Glucose 119 H POC Capillary Glucose 95 109 H Calcium 8.1 L Magnesium 2.5 H Total Bilirubin 0.9 AST 21 ALT 12 Alkaline Phosphatase 72 Total Protein 6.0 L Albumin 3.1 L 11/09/24 11/09/24 06:38 11:57 WBC RBC Hgb Hct MCV MCH MCHC RDW Plt Count MPV Sodium Potassium Chloride Carbon Dioxide Anion Gap BUN Creatinine Estim Creat Clear Calc Estimated GFR Glucose POC Capillary Glucose 117 H 108 H Calcium Magnesium Total Bilirubin AST ALT Alkaline Phosphatase Total Protein Albumin Quality VTE Prophylaxis VTE prophylaxis: mechanical ordered and pharmacologic ordered Hospitalist MIPS Advance Care Plan I have confirmed that the patient's Advanced Care Plan is present, code status is documented, or surrogate decision maker is listed in patient medical record.: Yes Medication Reconciliation I have utilized all available resources to obtain, update and review the caroline ellis current medications (includes all prescriptions, OTC, herbals, cannabis, and nutritional supplements).: Yes
[2024-11-09] MEDS: FUROSEMIDE INJ 40 MG/4 ML VIAL IV PUSH (16:07)
[2024-11-09] MEDS: ACETAMINOPHEN 325 MG TABLET 650 MG FEED TUBE ×2 (16:18→21:31)
[2024-11-09 19:04] LABS: Glucose Point of Care 99 mg/dl (65-105)
[2024-11-09 19:22] LABS: Add Urine Microscopic? NO; Appearance Urine Clear (Clear); Bilirubin Urine Negative (Negative); Blood Urine Negative (Negative); Color Urine Yellow (Yellow); Glucose Urine UA Negative (Negative); Ketones Urine Negative (Negative); Leukocyte Esterase Ur Negative LEU/UL (Negative); Nitrate Urine Negative (Negative); Protein Urine Negative (Negative); Specific Grav Ur 1.008 (1.001-1.035); Urobilinogen Urine 0.2 mg/dL (<2.0)
[2024-11-09] MEDS: ALBUTEROL SULFATE NEB 2.5 MG/3 ML INH INHALATION (20:10)
[2024-11-09] MEDS: ACETYLCYSTEINE 20% INHAL SOLN 800 MG/4 ML VIAL 200 MG INHALATION (20:10)
[2024-11-09 23:36] LABS: Anion Gap 1 mmol/L (4-12); Blood Urea Nitrogen 19 mg/dL (9-20); Calcium 8.3 mg/dL (8.4-10.2); Carbon Dioxide 32 mmol/L (22-30); Chloride 111 mmol/L (98-107); Estimated CRCL calculation 51 ml/min; Estimated Glomerular Filt Rate > 60; Glucose 109 mg/dL (65-110); Magnesium 2.1 mg/dL (1.6-2.3); Phosphorus 1.9 mg/dL (2.5-4.5); Potassium 2.9 mmol/L (3.4-5.0); Sodium 144 mmol/L (137-145)
[2024-11-10] VITALS (17 sets, daily range): BP systolic 133–179; BP diastolic 67–104; PULSE 82–106; RESP 21–31; TEMP 37.6–38.1; O2SAT 92–97
[2024-11-10] MEDS: POTASSIUM PHOS,M-BASIC-D-BASIC 40 MMOL in SODIUM CHLORIDE 0.9% IV 250 ML 43.89 MMOL IVPB (00:23)
[2024-11-10] MEDS: hydrALAZINE HCL 20 MG/ML VIAL 10 MG IV PUSH ×3 (05:07→16:43)
[2024-11-10] MEDS: PIPERACILLN/TAZ 3.375GM/NS50ML 3.375 GM/50 ML BAG IVPB ×4 (05:08→23:24)
[2024-11-10] MEDS: HYDROcodone/acetaminophen (*CRX) 5-325 MG TABLET 1 TAB FEED TUBE ×2 (05:26→20:04)
[2024-11-10 06:02] LABS: Glucose Point of Care 107 mg/dl (65-105)
[2024-11-10 06:29] LABS: Hemoglobin 13.3 g/dL (14.0-18.0); Mean Corpuscular HGB Conc 33.3 g/dl (32-36); Mean Corpuscular Hemoglobin 30.2 pg (26-34); Mean Corpuscular Volume 90.9 fl (80-100); Mean Platelet Volume 10.7 fl (7.4-10.4); Platelet Count Result 150 k/mm3 (150-375); Red Cell Distribution Width 15.2 % (11.5-14.5); White Blood Count 16.5 K/mm3 (4.5-10.0)
[2024-11-10 06:46] LABS: Phosphorus 4.3 mg/dL (2.5-4.5)
[2024-11-10 06:46] LABS: Alanine Aminotransferase 13 U/L (6-50); Albumin Level 3.3 g/dL (3.5-5.1); Alkaline Phosphatase 94 U/L (38-126); Anion Gap 3 mmol/L (4-12); Aspartate Amino Transferase 19 U/L (17-59); Bilirubin,Total 1.3 mg/dL (0.2-1.3); Blood Urea Nitrogen 21 mg/dL (9-20); Calcium 8.2 mg/dL (8.4-10.2); Carbon Dioxide 28 mmol/L (22-30); Chloride 113 mmol/L (98-107); Estimated CRCL calculation 54 ml/min; Estimated Glomerular Filt Rate > 60; Glucose 109 mg/dL (65-110); Magnesium 2.1 mg/dL (1.6-2.3); Potassium 3.5 mmol/L (3.4-5.0); Sodium 144 mmol/L (137-145)
[2024-11-10] MEDS: ALBUTEROL SULFATE NEB 2.5 MG/3 ML INH INHALATION ×2 (08:48→20:44)
[2024-11-10] MEDS: ACETYLCYSTEINE 20% INHAL SOLN 800 MG/4 ML VIAL 200 MG INHALATION ×2 (08:49→20:44)
--- NOTE | 2024-11-10 09:16 | PM.IMPN ---
Progress Note: A&P Assessment and Plan (1) Metabolic acidosis: Code(s): E87.20 - Acidosis, unspecified Status: Acute (2) DEBI (acute kidney injury): Code(s): N17.9 - Acute kidney failure, unspecified Status: Acute (3) Perforated gastric ulcer: Code(s): K25.5 - Chronic or unspecified gastric ulcer with perforation Status: Acute (4) COPD (chronic obstructive pulmonary disease): Code(s): J44.9 - Chronic obstructive pulmonary disease, unspecified Status: Acute (5) Sepsis: Code(s): A41.9 - Sepsis, unspecified organism Status: Acute (6) Pneumonia: Code(s): J18.9 - Pneumonia, unspecified organism Status: Acute (7) Acute hypoxic respiratory failure: Code(s): J96.01 - Acute respiratory failure with hypoxia Status: Acute (8) Sepsis associated hypotension: Code(s): A41.9 - Sepsis, unspecified organism; I95.9 - Hypotension, unspecified Status: Acute (9) EtOH dependence: Code(s): F10.20 - Alcohol dependence, uncomplicated Status: Acute Plan Acute hypoxic respiratory failure: Acute Respiratory failure secondary to sepsis, perforated gastric ulcer, general anaesthesia Extubated Sepsis, unspecified organism Sepsis secondary to right lower lobe pneumonia which is likely aspiration, perforated gastric ulcer and peritonitis Continue empiric Zosyn Management of perforated gastric ulcer as below off IV fluids Received 25% albumin and vasopressors Patient is hemodynamically stable, off pressors Still has low-grade fever, mild leukocytosis, blood culture has no growth so far Pneumonia: CT scan shows right lower lobe pneumonia which is likely aspiration. Continue Zosyn EtOH dependence: Thiamine and folic acid ordered Patient is confused, COPD Not in exacerbation Bronchodilators ordered Perforated gastric ulcer: Chronic or unspecified gastric ulcer with perforation Status post exploratory laparotomy, extensive lysis of adhesions, intra-abdominal washout, repair of perforated gastric ulcer with omental patch HARLEY drain placed Dressing on the surgical incision Management and feeding as per General surgery Patient is on Zosyn DEBI DEBI likely secondary to sepsis hypotension, fluid shift and hypovolemia Patient received fluid resuscitation and also 25% albumin CT scan does not show any hydronephrosis or obstruction Monitor urine output electrolytes and creatinine Patient has a hypokalemia, creatinine is trending down Replete with potassium chloride Consult electrical assistant Has resolved Metabolic acidosis Resolved DC bicarb Subjective Date/time seen: 11/10/24 09:16 Interval history: Patient was examined at the bedside. Patient consistent elevation of WBC, elevated temperature as well. Repeated blood culture yesterday. Urine appears clean. During the evaluation patient complains of abdominal pain. Surgical site looks clean and dry. HARLEY drain incision site as well looks clean. No residuals in the NG tube feeding. Aspiration precaution followed. Patient is currently on Zosyn and his nasal MRSA is negative.Repeat CT chest/abdomen/pelvis shows: 1. Small volume of ascites with mass effect on right lateral aspect of the liver, likely an exudate.2. Small pleural effusions.3. Wall thickening of the descending and sigmoid colon and rectum, consistent with colitis versus interstitial edema. Review of Systems Review of Systems: ROS unobtainable: Yes unobtainable due to endotracheal tube, unobtainable due to medical condition and unobtainable due to mental status Exam Narrative: General: , lethargic, ill-appearing Lungs/Chest: Trachea central Coarse BS B/L, No crackles or wheezing. Cardiac: RRR. Normal S1 S2. No murmurs Circulation: Abdomen: Decreased but present bowel sounds. HARLEY drain in place. Soft. Tender to palpation as patient grimaces on exam. NG tube in place Extremities: No clubbing, cyanosis or edema. Warm : Shen in place Neurologic: Patient is able to move all 4 extremities spontaneously. Objective Data Vital Signs Vital Signs: Vital Signs - 24 hr 11/09/24 10:00 11/09/24 12:00 11/09/24 12:00 Temperature 100.2 F H Pulse Rate 83 83 Respiratory Rate 20 Blood Pressure 176/86 H Pulse Oximetry 96 93 Oxygen Delivery Nasal Cannula Oxygen Flow Rate 2 11/09/24 12:00 11/09/24 14:00 11/09/24 16:00 Temperature 100.6 F H Pulse Rate 88 83 80 Respiratory Rate 20 Blood Pressure 166/97 H Pulse Oximetry 93 Oxygen Delivery Oxygen Flow Rate 11/09/24 16:00 11/09/24 16:00 11/09/24 16:18 Temperature 100.4 F H Pulse Rate 86 Respiratory Rate Blood Pressure Pulse Oximetry 91 Oxygen Delivery Nasal Cannula Oxygen Flow Rate 1 11/09/24 17:18 11/09/24 18:00 11/09/24 20:00 Temperature 99.5 F Pulse Rate 86 Respiratory Rate Blood Pressure Pulse Oximetry 92 Oxygen Delivery Nasal Cannula Oxygen Flow Rate 1 11/09/24 20:00 11/09/24 20:01 11/09/24 20:10 Temperature 100.1 F H Pulse Rate 89 91 79 Respiratory Rate 26 H 26 H Blood Pressure 160/83 H Pulse Oximetry 91 Oxygen Delivery Oxygen Flow Rate 11/09/24 20:25 11/09/24 20:25 11/09/24 22:00 Temperature Pulse Rate 97 92 Respiratory Rate 21 H Blood Pressure Pulse Oximetry 95 Oxygen Delivery Nasal Cannula Oxygen Flow Rate 1 11/10/24 00:00 11/10/24 00:00 11/10/24 00:00 Temperature 99.8 F H Pulse Rate 83 84 Respiratory Rate 23 H Blood Pressure 149/76 H Pulse Oximetry 93 93 Oxygen Delivery Nasal Cannula Oxygen Flow Rate 1 11/10/24 02:00 11/10/24 04:00 11/10/24 04:00 Temperature 100.1 F H Pulse Rate 82 84 Respiratory Rate 28 H Blood Pressure 172/102 H Pulse Oximetry 92 92 Oxygen Delivery Nasal Cannula Oxygen Flow Rate 1 11/10/24 04:00 11/10/24 06:00 11/10/24 06:09 Temperature 100.5 F H Pulse Rate 83 103 H 97 Respiratory Rate 31 H Blood Pressure 142/94 H Pulse Oximetry 92 Oxygen Delivery Oxygen Flow Rate 11/10/24 08:49 11/10/24 08:49 11/10/24 08:59 Temperature Pulse Rate 96 102 H Respiratory Rate 24 H 21 H Blood Pressure Pulse Oximetry 95 Oxygen Delivery Nasal Cannula Oxygen Flow Rate 1 Intake/Output Intake/Output: Intake & Output 11/07/24 11/08/24 11/09/24 11/10/24 23:59 23:59 23:59 23:59 Intake Total 2695.9 1278.0 630 457 Output Total 2280 1315 2950 905 Balance 415.9 -37.0 -2320 -448 Meds/Results Medications: Active Medications Generic Name Dose Route Start Last Admin Trade Name Freq PRN Reason Stop Dose Admin Acetaminophen 650 mg 11/06/24 14:48 11/07/24 19:10 Acetaminophen 650 Mg Suppository RECTAL 650 mg Q4H PRN Administration Mild Pain (1-3) or Fever Acetaminophen 650 mg 11/08/24 13:37 11/09/24 21:31 Acetaminophen 325 Mg Tablet FEED TUBE 650 mg Q4H PRN Administration Headache, Fever, Mild Pain Hydrocodone Bitart/Acetaminophen 1 tab 11/08/24 13:37 11/10/24 05:26 Hydrocodone/Acetaminophen (*Crx) 5-325 Mg Tablet FEED TUBE 1 tab Q4H PRN Administration Pain Rated 4-6 Acetylcysteine 200 mg 11/09/24 20:00 11/10/24 08:49 Acetylcysteine 20% Inhal Soln 800 Mg/4 Ml Vial INHALATION 200 mg Q12HRT SOURAV Administration Albuterol 2.5 mg 11/09/24 15:38 11/10/24 08:48 Albuterol Sulfate Neb 2.5 Mg/3 Ml Inh INHALATION 2.5 mg Q12HR PRN Administration Shortness Of Breath Dextrose 12.5 gm 11/06/24 07:40 Dextrose 50% 25 Gm/50 Ml Syringe IV PUSH PRN PRN Hypoglycemia Protocol Enoxaparin Sodium 30 mg 11/06/24 09:00 11/09/24 10:00 Enoxaparin 30 Mg/0.3 Ml Syringe SUB-Q 30 mg DAILY SOURAV Administration Folic Acid 1 mg 11/06/24 09:00 11/09/24 10:00 Folic Acid 1 Mg/0.2 Ml Inj IV PUSH 1 mg QAM SOURAV Administration Glucagon 1 mg 11/06/24 07:40 Glucagon For Inj 1 Mg Vial IM PRN PRN Hypoglycemia Protocol Glucose 15 gm 11/06/24 07:40 Glucose Oral Gel 15 Gm Of Glucse In 37.5 Gm Tube PO PRN PRN Hypoglycemia Protocol Hydralazine HCl 10 mg 11/10/24 09:16 Hydralazine Hcl 20 Mg/Ml Vial IV PUSH Q4HR PRN Blood Pressure - High Dextrose 1,000 mls @ 100 mls/hr 11/06/24 07:40 Dextrose 5% 1,000 Ml IVPB PRN PRN Hypoglycemia Protocol Piperacillin/Tazobactam/Dextrose 3.375 gm in 50 mls @ 100 mls/hr 11/08/24 12:00 11/10/24 05:38 Zosyn 3.375 Gm/Ns 50 Ml IVPB Infused Q6H SOURAV Infusion Insulin Aspart 2 - 5 units 11/08/24 12:00 11/10/24 05:27 Insulin Aspart (*Bkc) 100 Units/Ml SUB-Q Not Given Q6HR [facility] Protocol Morphine Sulfate 2 mg 11/08/24 07:39 Morphine Sulfate (*Crx) 2 Mg/Ml Inj IV PUSH Q2H PRN Moderate Pain (4-6) Morphine Sulfate 4 mg 11/08/24 07:39 11/08/24 08:17 Morphine Sulfate (*Crx) 4 Mg/Ml Inj IV PUSH 4 mg Q2H PRN Administration Pain Rated 7-10 Naloxone HCl 0.1 mg 11/06/24 00:01 Naloxone Hcl 0.4 Mg/Ml Vial IV PUSH Q2M PRN Opiate Reversal Ondansetron HCl 4 mg 11/06/24 00:01 Ondansetron Inj 4 Mg/2 Ml Vial IV PUSH Q4H PRN Nausea And Vomiting Pantoprazole Sodium 40 mg 11/06/24 09:00 11/09/24 21:32 Pantoprazole Sodium Iv 40 Mg Vial IV PUSH 40 mg Q12HR SOURAV Administration Thiamine HCl 100 mg 11/06/24 09:00 11/09/24 10:02 Thiamine Hcl 200 Mg/2 Ml Vial IV PUSH 100 mg QAM SOURAV Administration Radiology Results: ITS Impressions Head CT 11/05/24 20:50 IMPRESSION: 1. Moderate nonspecific cerebral white matter disease, which likely represents chronic small vessel ischemic disease. 2. 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 Chest/Abdomen/Pelvis CT 11/05/24 20:55 IMPRESSION: 1. Free intraperitoneal gas, consistent with perforated viscus. I called this result to Dr. Woods. 2. Large volume of ascites. 3. Right lower lobe pneumonia. 4. Small pleural effusions. 5. Small pericardial effusion. 6. Nasogastric tube tip at the gastroesophageal junction. Abdomen X-Ray 11/07/24 17:42 IMPRESSION: 1. Nasogastric tube tip in the stomach. 2. Fold thickening of bowel, consistent with interstitial edema versus enterocolitis. 3. Airspace opacities in the perihilar regions and lower lung zones, consistent with atelectasis versus pneumonia. Upper GI Series 11/08/24 12:17 IMPRESSION: 1. Slow gastric emptying likely related to postoperative ileus. No extraluminal leakage of contrast. Chest X-Ray 11/10/24 06:10 IMPRESSION: 1. Stable small pleural effusions. 2. Stable airspace opacities at the lung bases, consistent with atelectasis versus pneumonia. Labs Labs: Laboratory Results - last 24 hr 11/09/24 11/09/24 11/09/24 11:57 18:41 19:08 WBC RBC Hgb Hct MCV MCH MCHC RDW Plt Count MPV Sodium Potassium Chloride Carbon Dioxide Anion Gap BUN Creatinine Estim Creat Clear Calc Estimated GFR Glucose POC Capillary Glucose 108 H 99 Calcium Phosphorus Magnesium Total Bilirubin AST ALT Alkaline Phosphatase Total Protein Albumin Urine Color Yellow Urine Appearance Clear Urine pH 7.0 Ur Specific [place] 1.008 Urine Protein Negative Urine Glucose (UA) Negative Urine Ketones Negative Ur Blood (Man) Negative Urine Nitrate Negative Urine Bilirubin Negative Urine Urobilinogen 0.2 Ur Leukocyte Esterase Negative 11/09/24 11/10/24 11/10/24 23:15 05:15 06:21 WBC 16.5 H RBC 4.40 L Hgb 13.3 L Hct 40.0 L MCV 90.9 MCH 30.2 MCHC 33.3 RDW 15.2 H Plt Count 150 MPV 10.7 H Sodium 144 144 Potassium 2.9 L 3.5 Chloride 111 H 113 H Carbon Dioxide 32 H 28 Anion Gap 1 L 3 L BUN 19 21 H Creatinine 0.90 0.80 Estim Creat Clear Calc 51 54 Estimated GFR > 60 > 60 Glucose 109 109 POC Capillary Glucose 107 H Calcium 8.3 L 8.2 L Phosphorus 1.9 L Magnesium 2.1 2.1 Total Bilirubin 1.3 AST 19 ALT 13 Alkaline Phosphatase 94 Total Protein 6.0 L Albumin 3.3 L Urine Color Urine Appearance Urine pH Ur Specific [place] Urine Protein Urine Glucose (UA) Urine Ketones Ur Blood (Man) Urine Nitrate Urine Bilirubin Urine Urobilinogen Ur Leukocyte Esterase 11/10/24 06:22 WBC RBC Hgb Hct MCV MCH MCHC RDW Plt Count MPV Sodium Potassium Chloride Carbon Dioxide Anion Gap BUN Creatinine Estim Creat Clear Calc Estimated GFR Glucose POC Capillary Glucose Calcium Phosphorus 4.3 Magnesium Total Bilirubin AST ALT Alkaline Phosphatase Total Protein Albumin Urine Color Urine Appearance Urine pH Ur Specific [place] Urine Protein Urine Glucose (UA) Urine Ketones Ur Blood (Man) Urine Nitrate Urine Bilirubin Urine Urobilinogen Ur Leukocyte Esterase Quality VTE Prophylaxis VTE prophylaxis: mechanical ordered and pharmacologic ordered Hospitalist MIPS Advance Care Plan I have confirmed that the patient's Advanced Care Plan is present, code status is documented, or surrogate decision maker is listed in patient medical record.: Yes Medication Reconciliation I have utilized all available resources to obtain, update and review the patients current medications (includes all prescriptions, OTC, herbals, cannabis, and nutritional supplements).: Yes
[2024-11-10] MEDS: ENOXAPARIN 30 MG/0.3 ML SYRINGE SUB-Q (09:25)
[2024-11-10] MEDS: THIAMINE HCL 200 MG/2 ML VIAL 100 MG IV PUSH (09:25)
[2024-11-10] MEDS: PANTOPRAZOLE SODIUM IV 40 MG VIAL IV PUSH ×2 (09:25→20:04)
[2024-11-10] MEDS: FOLIC ACID 1 MG/0.2 ML INJ IV PUSH (12:18)
[2024-11-10 12:30] LABS: Glucose Point of Care 132 mg/dl (65-105)
--- NOTE | 2024-11-10 13:10 | P.PNGS_ITS ---
Progress Note: A&P Assessment and Plan (1) Perforated gastric ulcer: Code(s): K25.5 - Chronic or unspecified gastric ulcer with perforation Status: Acute Assessment and Plan: * Continue tube feedings. Advance to goal as tolerated. * Might need to consider swallow eval before removing NG. * Continue IV antibiotics. Subjective Subjective Date/Time Seen: 11/10/24 13:10 Interval history: No significant changes. No acute events overnight. Exam GI: Inspection: non-distended, incision (intact) and other (HARLEY serous) GI Palp: Yes Soft to palpation and No Guarding due to palpation present (GI) Auscultation: normal bowel sounds Objective Data Vital Signs Vital Signs: Vital Signs - 24 hr 11/09/24 14:00 11/09/24 16:00 11/09/24 16:00 Temperature 100.6 F H Pulse Rate 83 80 Respiratory Rate 20 Blood Pressure 166/97 H Pulse Oximetry 93 91 Oxygen Delivery Nasal Cannula Oxygen Flow Rate 1 11/09/24 16:00 11/09/24 16:18 11/09/24 17:18 Temperature 100.4 F H 99.5 F Pulse Rate 86 Respiratory Rate Blood Pressure Pulse Oximetry Oxygen Delivery Oxygen Flow Rate 11/09/24 18:00 11/09/24 20:00 11/09/24 20:00 Temperature Pulse Rate 86 89 Respiratory Rate Blood Pressure Pulse Oximetry 92 Oxygen Delivery Nasal Cannula Oxygen Flow Rate 1 11/09/24 20:01 11/09/24 20:10 11/09/24 20:25 Temperature 100.1 F H Pulse Rate 91 79 Respiratory Rate 26 H 26 H Blood Pressure 160/83 H Pulse Oximetry 91 95 Oxygen Delivery Nasal Cannula Oxygen Flow Rate 1 11/09/24 20:25 11/09/24 22:00 11/10/24 00:00 Temperature Pulse Rate 97 92 Respiratory Rate 21 H Blood Pressure Pulse Oximetry 93 Oxygen Delivery Nasal Cannula Oxygen Flow Rate 1 11/10/24 00:00 11/10/24 00:00 11/10/24 02:00 Temperature 99.8 F H Pulse Rate 83 84 82 Respiratory Rate 23 H Blood Pressure 149/76 H Pulse Oximetry 93 Oxygen Delivery Oxygen Flow Rate 11/10/24 04:00 11/10/24 04:00 11/10/24 04:00 Temperature 100.1 F H Pulse Rate 84 83 Respiratory Rate 28 H Blood Pressure 172/102 H Pulse Oximetry 92 92 Oxygen Delivery Nasal Cannula Oxygen Flow Rate 1 11/10/24 06:00 11/10/24 06:09 11/10/24 08:49 Temperature 100.5 F H Pulse Rate 103 H 97 Respiratory Rate 31 H Blood Pressure 142/94 H Pulse Oximetry 92 95 Oxygen Delivery Nasal Cannula Oxygen Flow Rate 1 11/10/24 08:49 11/10/24 08:59 Temperature Pulse Rate 96 102 H Respiratory Rate 24 H 21 H Blood Pressure Pulse Oximetry Oxygen Delivery Oxygen Flow Rate Intake/Output Intake/Output: Intake & Output 11/07/24 11/08/24 11/09/24 11/10/24 23:59 23:59 23:59 23:59 Intake Total 2695.9 1278.0 630 457 Output Total 2280 1315 2950 905 Balance 415.9 -37.0 -2320 -448 Meds/Results Medications: Active Medications Generic Name Dose Route Start Last Admin Trade Name Freq PRN Reason Stop Dose Admin Acetaminophen 650 mg 11/06/24 14:48 11/07/24 19:10 Acetaminophen 650 Mg Suppository RECTAL 650 mg Q4H PRN Administration Mild Pain (1-3) or Fever Acetaminophen 650 mg 11/08/24 13:37 11/09/24 21:31 Acetaminophen 325 Mg Tablet FEED TUBE 650 mg Q4H PRN Administration Headache, Fever, Mild Pain Hydrocodone Bitart/Acetaminophen 1 tab 11/08/24 13:37 11/10/24 05:26 Hydrocodone/Acetaminophen (*Crx) 5-325 Mg Tablet FEED TUBE 1 tab Q4H PRN Administration Pain Rated 4-6 Acetylcysteine 200 mg 11/09/24 20:00 11/10/24 08:49 Acetylcysteine 20% Inhal Soln 800 Mg/4 Ml Vial INHALATION 200 mg Q12HRT SOURAV Administration Albuterol 2.5 mg 11/09/24 15:38 11/10/24 08:48 Albuterol Sulfate Neb 2.5 Mg/3 Ml Inh INHALATION 2.5 mg Q12HR PRN Administration Shortness Of Breath Dextrose 12.5 gm 11/06/24 07:40 Dextrose 50% 25 Gm/50 Ml Syringe IV PUSH PRN PRN Hypoglycemia Protocol Enoxaparin Sodium 30 mg 11/06/24 09:00 11/10/24 09:25 Enoxaparin 30 Mg/0.3 Ml Syringe SUB-Q 30 mg DAILY SOURAV Administration Folic Acid 1 mg 11/06/24 09:00 11/10/24 12:18 Folic Acid 1 Mg/0.2 Ml Inj IV PUSH 1 mg QAM SOURAV Administration Glucagon 1 mg 11/06/24 07:40 Glucagon For Inj 1 Mg Vial IM PRN PRN Hypoglycemia Protocol Glucose 15 gm 11/06/24 07:40 Glucose Oral Gel 15 Gm Of Glucse In 37.5 Gm Tube PO PRN PRN Hypoglycemia Protocol Hydralazine HCl 10 mg 11/10/24 09:16 11/10/24 09:24 Hydralazine Hcl 20 Mg/Ml Vial IV PUSH 10 mg Q4HR PRN Administration Blood Pressure - High Dextrose 1,000 mls @ 100 mls/hr 11/06/24 07:40 Dextrose 5% 1,000 Ml IVPB PRN PRN Hypoglycemia Protocol Piperacillin/Tazobactam/Dextrose 3.375 gm in 50 mls @ 100 mls/hr 11/08/24 12:00 11/10/24 12:18 Zosyn 3.375 Gm/Ns 50 Ml IVPB 100 mls/hr Q6H SOURAV Administration Insulin Aspart 2 - 5 units 11/08/24 12:00 11/10/24 12:27 Insulin Aspart (*Bkc) 100 Units/Ml SUB-Q Not Given Q6HR [facility] Protocol Morphine Sulfate 2 mg 11/08/24 07:39 Morphine Sulfate (*Crx) 2 Mg/Ml Inj IV PUSH Q2H PRN Moderate Pain (4-6) Morphine Sulfate 4 mg 11/08/24 07:39 11/08/24 08:17 Morphine Sulfate (*Crx) 4 Mg/Ml Inj IV PUSH 4 mg Q2H PRN Administration Pain Rated 7-10 Naloxone HCl 0.1 mg 11/06/24 00:01 Naloxone Hcl 0.4 Mg/Ml Vial IV PUSH Q2M PRN Opiate Reversal Ondansetron HCl 4 mg 11/06/24 00:01 Ondansetron Inj 4 Mg/2 Ml Vial IV PUSH Q4H PRN Nausea And Vomiting Pantoprazole Sodium 40 mg 11/06/24 09:00 11/10/24 09:25 Pantoprazole Sodium Iv 40 Mg Vial IV PUSH 40 mg Q12HR SOURAV Administration Thiamine HCl 100 mg 11/06/24 09:00 11/10/24 09:25 Thiamine Hcl 200 Mg/2 Ml Vial IV PUSH 100 mg QAM SOURAV Administration Radiology Results: ITS Impressions Head CT 11/05/24 20:50 IMPRESSION: 1. Moderate nonspecific cerebral white matter disease, which likely represents chronic small vessel ischemic disease. 2. 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 Abdomen X-Ray 11/07/24 17:42 IMPRESSION: 1. Nasogastric tube tip in the stomach. 2. Fold thickening of bowel, consistent with interstitial edema versus enterocolitis. 3. Airspace opacities in the perihilar regions and lower lung zones, consistent with atelectasis versus pneumonia. Upper GI Series 11/08/24 12:17 IMPRESSION: 1. Slow gastric emptying likely related to postoperative ileus. No extraluminal leakage of contrast. Chest X-Ray 11/10/24 06:10 IMPRESSION: 1. Stable small pleural effusions. 2. Stable airspace opacities at the lung bases, consistent with atelectasis versus pneumonia. Chest/Abdomen/Pelvis CT 11/10/24 10:38 IMPRESSION: 1. Small volume of ascites with mass effect on right lateral aspect of the liver, likely an exudate. 2. Small pleural effusions. 3. Wall thickening of the descending and sigmoid colon and rectum, consistent with colitis versus interstitial edema. Labs Labs: Laboratory Results - last 24 hr 11/09/24 11/09/24 11/09/24 18:41 19:08 23:15 WBC RBC Hgb Hct MCV MCH MCHC RDW Plt Count MPV Sodium 144 Potassium 2.9 L Chloride 111 H Carbon Dioxide 32 H Anion Gap 1 L BUN 19 Creatinine 0.90 Estim Creat Clear Calc 51 Estimated GFR > 60 Glucose 109 POC Capillary Glucose 99 Calcium 8.3 L Phosphorus 1.9 L Magnesium 2.1 Total Bilirubin AST ALT Alkaline Phosphatase Total Protein Albumin Urine Color Yellow Urine Appearance Clear Urine pH 7.0 Ur Specific [place] 1.008 Urine Protein Negative Urine Glucose (UA) Negative Urine Ketones Negative Ur Blood (Man) Negative Urine Nitrate Negative Urine Bilirubin Negative Urine Urobilinogen 0.2 Ur Leukocyte Esterase Negative 11/10/24 11/10/24 11/10/24 05:15 06:21 06:22 WBC 16.5 H RBC 4.40 L Hgb 13.3 L Hct 40.0 L MCV 90.9 MCH 30.2 MCHC 33.3 RDW 15.2 H Plt Count 150 MPV 10.7 H Sodium 144 Potassium 3.5 Chloride 113 H Carbon Dioxide 28 Anion Gap 3 L BUN 21 H Creatinine 0.80 Estim Creat Clear Calc 54 Estimated GFR > 60 Glucose 109 POC Capillary Glucose 107 H Calcium 8.2 L Phosphorus 4.3 Magnesium 2.1 Total Bilirubin 1.3 AST 19 ALT 13 Alkaline Phosphatase 94 Total Protein 6.0 L Albumin 3.3 L Urine Color Urine Appearance Urine pH Ur Specific [place] Urine Protein Urine Glucose (UA) Urine Ketones Ur Blood (Man) Urine Nitrate Urine Bilirubin Urine Urobilinogen Ur Leukocyte Esterase 11/10/24 12:26 WBC RBC Hgb Hct MCV MCH MCHC RDW Plt Count MPV Sodium Potassium Chloride Carbon Dioxide Anion Gap BUN Creatinine Estim Creat Clear Calc Estimated GFR Glucose POC Capillary Glucose 132 H Calcium Phosphorus Magnesium Total Bilirubin AST ALT Alkaline Phosphatase Total Protein Albumin Urine Color Urine Appearance Urine pH Ur Specific [place] Urine Protein Urine Glucose (UA) Urine Ketones Ur Blood (Man) Urine Nitrate Urine Bilirubin Urine Urobilinogen Ur Leukocyte Esterase
[2024-11-10 18:45] LABS: Glucose Point of Care 123 mg/dl (65-105)
[2024-11-10] MEDS: ACETAMINOPHEN 325 MG TABLET 650 MG FEED TUBE (20:03)
[2024-11-10 23:41] LABS: Glucose Point of Care 123 mg/dl (65-105)
[2024-11-11] VITALS (19 sets, daily range): BP systolic 147–168; BP diastolic 82–99; PULSE 87–105; RESP 18–24; TEMP 36.4–37.6; O2SAT 93–98
--- NOTE | 2024-11-11 01:46 | PC.NURSE ---
This patient, Rupert Lemos, was received from ICU 9 on 11/11/24 at 0146. Patient/family oriented to unit policies and routines. Report received from KITTY Nye.
[2024-11-11] MEDS: PIPERACILLN/TAZ 3.375GM/NS50ML 3.375 GM/50 ML BAG IVPB ×4 (06:15→23:10)
[2024-11-11 06:37] LABS: Hematocrit 36.9 % (42.0-52.0); Hemoglobin 12.1 g/dL (14.0-18.0); Mean Corpuscular HGB Conc 32.8 g/dl (32-36); Mean Corpuscular Hemoglobin 29.6 pg (26-34); Mean Corpuscular Volume 90.2 fl (80-100); Mean Platelet Volume 10.6 fl (7.4-10.4); Platelet Count Result 179 k/mm3 (150-375); Red Blood Count 4.09 M/mm3 (4.6-6.20); Red Cell Distribution Width 15.4 % (11.5-14.5); White Blood Count 18.4 K/mm3 (4.5-10.0)
[2024-11-11 06:56] LABS: Alanine Aminotransferase 13 U/L (6-50); Albumin Level 3.1 g/dL (3.5-5.1); Alkaline Phosphatase 122 U/L (38-126); Anion Gap 1 mmol/L (4-12); Aspartate Amino Transferase 28 U/L (17-59); Bilirubin,Total 0.9 mg/dL (0.2-1.3); Blood Urea Nitrogen 23 mg/dL (9-20); Calcium 8.2 mg/dL (8.4-10.2); Carbon Dioxide 32 mmol/L (22-30); Chloride 116 mmol/L (98-107); Estimated CRCL calculation 59 ml/min; Estimated Glomerular Filt Rate > 60; Glucose 114 mg/dL (65-110); Potassium 2.9 mmol/L (3.4-5.0); Sodium 149 mmol/L (137-145)
[2024-11-11 08:42] LABS: Glucose Point of Care 103 mg/dl (65-105)
[2024-11-11] MEDS: ACETYLCYSTEINE 20% INHAL SOLN 800 MG/4 ML VIAL 200 MG INHALATION ×2 (08:53→20:17)
[2024-11-11] MEDS: ALBUTEROL SULFATE NEB 2.5 MG/3 ML INH INHALATION ×2 (08:53→20:23)
[2024-11-11] MEDS: POTASSIUM CHLORIDE 20 MEQ PACKET (FOR LIQUID) 60 MEQ PO (08:55)
[2024-11-11] MEDS: VANCOMYCIN 1,250 MG/NS 250 ML 1,250 MG/250 ML BAG 166.67 MG IVPB (08:56)
[2024-11-11] MEDS: ENOXAPARIN 30 MG/0.3 ML SYRINGE SUB-Q (08:56)
[2024-11-11] MEDS: THIAMINE HCL 200 MG/2 ML VIAL 100 MG IV PUSH (08:56)
[2024-11-11] MEDS: FOLIC ACID 1 MG/0.2 ML INJ IV PUSH (08:56)
[2024-11-11] MEDS: PANTOPRAZOLE SODIUM IV 40 MG VIAL IV PUSH ×2 (08:56→21:57)
--- NOTE | 2024-11-11 09:46 | PM.IMPN ---
Progress Note: A&P Assessment and Plan (1) Metabolic acidosis: Code(s): E87.20 - Acidosis, unspecified Status: Acute (2) DEBI (acute kidney injury): Code(s): N17.9 - Acute kidney failure, unspecified Status: Acute (3) Perforated gastric ulcer: Code(s): K25.5 - Chronic or unspecified gastric ulcer with perforation Status: Acute (4) COPD (chronic obstructive pulmonary disease): Code(s): J44.9 - Chronic obstructive pulmonary disease, unspecified Status: Acute (5) Sepsis: Code(s): A41.9 - Sepsis, unspecified organism Status: Acute (6) Pneumonia: Code(s): J18.9 - Pneumonia, unspecified organism Status: Acute (7) Acute hypoxic respiratory failure: Code(s): J96.01 - Acute respiratory failure with hypoxia Status: Acute (8) Sepsis associated hypotension: Code(s): A41.9 - Sepsis, unspecified organism; I95.9 - Hypotension, unspecified Status: Acute (9) EtOH dependence: Code(s): F10.20 - Alcohol dependence, uncomplicated Status: Acute Plan Acute hypoxic respiratory failure: Acute Respiratory failure secondary to sepsis, perforated gastric ulcer, general anaesthesia Extubated Sepsis, unspecified organism Sepsis secondary to right lower lobe pneumonia which is likely aspiration, perforated gastric ulcer and peritonitis Continue empiric Zosyn and started vancomycin Management of perforated gastric ulcer as below off IV fluids Received 25% albumin and vasopressors Patient is hemodynamically stable, off pressors Still has low-grade fever, mild leukocytosis, blood culture has no growth so far Pneumonia: CT scan shows right lower lobe pneumonia which is likely aspiration. Continue Zosyn EtOH dependence: Thiamine and folic acid ordered COPD Not in exacerbation Bronchodilators ordered Perforated gastric ulcer: Chronic or unspecified gastric ulcer with perforation Status post exploratory laparotomy, extensive lysis of adhesions, intra-abdominal washout, repair of perforated gastric ulcer with omental patch HARLEY drain placed Dressing on the surgical incision Management and feeding as per General surgery Patient is on Zosyn, Vancomycin and Mycofungin DEBI DEBI likely secondary to sepsis hypotension, fluid shift and hypovolemia Patient received fluid resuscitation and also 25% albumin CT scan does not show any hydronephrosis or obstruction Monitor urine output electrolytes and creatinine Patient has a hypokalemia, creatinine is trending down Replete with potassium chloride Consult manager simulation Has resolved Metabolic acidosis Resolved DC bicarb Subjective Date/time seen: 11/11/24 09:46 Interval history: Patient still consistent elevation of WBC, elevated temperature as well. Today's surgery added mycofungin and I added vancomycin and continuing Zosyn. Repeated blood culture on 11/09 shows no growth. Urine appears clean. Surgical site looks clean and dry. HARLEY drain incision site as well looks clean. No residuals in the NG tube feeding. ST evaluated for bedside swallow and he did not perform well. Tomorrow will undergo MBS.As per surgery CT yesterday shows fluid collection over liver which might be loculated and developing into abscess. If WBC continues to rise, might need percutaneous drainage . Off note:Patient underwent exploratory laparotomy, extensive lysis of adhesions, intra-abdominal washout, repair of perforated gastric ulcer with omental patch on 11/05. Review of Systems Review of Systems: ROS unobtainable: Yes unobtainable due to endotracheal tube, unobtainable due to medical condition and unobtainable due to mental status Exam Narrative: General: , lethargic, ill-appearing Lungs/Chest: Trachea central Coarse BS B/L, No crackles or wheezing. Cardiac: RRR. Normal S1 S2. No murmurs Circulation: Abdomen: Decreased but present bowel sounds. HARLEY drain in place. Soft. Tender to palpation as patient grimaces on exam. NG tube in place Extremities: No clubbing, cyanosis or edema. Warm : Shen in place Neurologic: Patient is able to move all 4 extremities spontaneously. Objective Data Vital Signs Vital Signs: Vital Signs - 24 hr 11/10/24 12:00 11/10/24 12:00 11/10/24 16:00 Temperature 100.6 F H Pulse Rate 106 H Respiratory Rate 28 H Blood Pressure 133/67 Pulse Oximetry 94 94 94 Oxygen Delivery Nasal Cannula Nasal Cannula Oxygen Flow Rate 1 1 11/10/24 16:00 11/10/24 20:00 11/10/24 20:00 Temperature 100.4 F H Pulse Rate 100 101 H Respiratory Rate 30 H Blood Pressure 162/104 H Pulse Oximetry 94 96 Oxygen Delivery Nasal Cannula Oxygen Flow Rate 1 11/10/24 20:00 11/10/24 20:03 11/10/24 20:47 Temperature 100.6 F H 100.6 F H Pulse Rate 101 H 94 Respiratory Rate 27 H 26 H Blood Pressure 156/97 H Pulse Oximetry 97 Oxygen Delivery Oxygen Flow Rate 11/10/24 20:48 11/10/24 20:55 11/10/24 22:00 Temperature Pulse Rate 104 H 89 Respiratory Rate 28 H Blood Pressure Pulse Oximetry 96 Oxygen Delivery Nasal Cannula Oxygen Flow Rate 1 11/10/24 22:14 11/11/24 00:00 11/11/24 00:00 Temperature 99.6 F Pulse Rate 87 Respiratory Rate Blood Pressure Pulse Oximetry 94 Oxygen Delivery Nasal Cannula Oxygen Flow Rate 1 11/11/24 00:00 11/11/24 02:00 11/11/24 04:00 Temperature 99.7 F H Pulse Rate 87 89 90 Respiratory Rate 22 H Blood Pressure 150/94 H Pulse Oximetry 94 Oxygen Delivery Oxygen Flow Rate 11/11/24 04:00 11/11/24 04:30 11/11/24 06:00 Temperature 98.5 F Pulse Rate 92 95 Respiratory Rate 18 Blood Pressure 148/87 H Pulse Oximetry 97 Oxygen Delivery Room Air Oxygen Flow Rate 11/11/24 07:54 11/11/24 08:54 11/11/24 08:54 Temperature 97.5 F L Pulse Rate 95 89 Respiratory Rate 18 24 H Blood Pressure 168/99 H Pulse Oximetry 97 94 Oxygen Delivery Room Air Oxygen Flow Rate 11/11/24 09:08 Temperature Pulse Rate 90 Respiratory Rate 24 H Blood Pressure Pulse Oximetry Oxygen Delivery Oxygen Flow Rate Intake/Output Intake/Output: Intake & Output 11/08/24 11/09/24 11/10/24 11/11/24 23:59 23:59 23:59 23:59 Intake Total 1278.0 630 1244 610 Output Total 1315 2950 1357 500 Balance -37.0 -2320 -113 110 Meds/Results Medications: Active Medications Generic Name Dose Route Start Last Admin Trade Name Freq PRN Reason Stop Dose Admin Acetaminophen 650 mg 11/06/24 14:48 11/07/24 19:10 Acetaminophen 650 Mg Suppository RECTAL 650 mg Q4H PRN Administration Mild Pain (1-3) or Fever Acetaminophen 650 mg 11/08/24 13:37 11/10/24 20:03 Acetaminophen 325 Mg Tablet FEED TUBE 650 mg Q4H PRN Administration Headache, Fever, Mild Pain Hydrocodone Bitart/Acetaminophen 1 tab 11/08/24 13:37 11/10/24 20:04 Hydrocodone/Acetaminophen (*Crx) 5-325 Mg Tablet FEED TUBE 1 tab Q4H PRN Administration Pain Rated 4-6 Acetylcysteine 200 mg 11/09/24 20:00 11/11/24 08:53 Acetylcysteine 20% Inhal Soln 800 Mg/4 Ml Vial INHALATION 200 mg Q12HRT S[facility]V Administration Albuterol 2.5 mg 11/09/24 15:38 11/11/24 08:53 Albuterol Sulfate Neb 2.5 Mg/3 Ml Inh INHALATION 2.5 mg Q12HR PRN Administration Shortness Of Breath Dextrose 12.5 gm 11/06/24 07:40 Dextrose 50% 25 Gm/50 Ml Syringe IV PUSH PRN PRN Hypoglycemia Protocol Enoxaparin Sodium 30 mg 11/06/24 09:00 11/11/24 08:56 Enoxaparin 30 Mg/0.3 Ml Syringe SUB-Q 30 mg DAILY SOU[facility]V Administration Folic Acid 1 mg 11/06/24 09:00 11/11/24 08:56 Folic Acid 1 Mg/0.2 Ml Inj IV PUSH 1 mg QAM SOU[facility]V Administration Glucagon 1 mg 11/06/24 07:40 Glucagon For Inj 1 Mg Vial IM PRN PRN Hypoglycemia Protocol Glucose 15 gm 11/06/24 07:40 Glucose Oral Gel 15 Gm Of Glucse In 37.5 Gm Tube PO PRN PRN Hypoglycemia Protocol Hydralazine HCl 10 mg 11/10/24 09:16 11/10/24 16:43 Hydralazine Hcl 20 Mg/Ml Vial IV PUSH 10 mg Q4HR PRN Administration Blood Pressure - High Dextrose 1,000 mls @ 100 mls/hr 11/06/24 07:40 Dextrose 5% 1,000 Ml IVPB PRN PRN Hypoglycemia Protocol Piperacillin/Tazobactam/Dextrose 3.375 gm in 50 mls @ 100 mls/hr 11/08/24 12:00 11/11/24 06:15 Zosyn 3.375 Gm/Ns 50 Ml IVPB 100 mls/hr Q6H [facility] Administration Vancomycin HCl 1,250 mg in 250 mls @ 166.667 mls/hr 11/11/24 09:00 11/11/24 08:56 Vancomycin 1,250 Mg/Ns 250 Ml IVPB 11/11/24 10:29 166.67 mls/hr ONCE ONE Administration Vancomycin HCl 1,000 mg in 250 mls @ 250 mls/hr 11/12/24 09:00 Vancomycin 1,000 Mg/Ns 250 Ml IVPB Q24H [facility] Micafungin Sodium 100 mg/ 100 mls @ 100 mls/hr 11/11/24 09:40 Sodium Chloride IVPB DAILY [facility] Insulin Aspart 2 - 5 units 11/08/24 12:00 11/11/24 07:28 Insulin Aspart (*Bkc) 100 Units/Ml SUB-Q Not Given Q6HR [facility] Protocol Morphine Sulfate 2 mg 11/08/24 07:39 Morphine Sulfate (*Crx) 2 Mg/Ml Inj IV PUSH Q2H PRN Moderate Pain (4-6) Morphine Sulfate 4 mg 11/08/24 07:39 11/08/24 08:17 Morphine Sulfate (*Crx) 4 Mg/Ml Inj IV PUSH 4 mg Q2H PRN Administration Pain Rated 7-10 Naloxone HCl 0.1 mg 11/06/24 00:01 Naloxone Hcl 0.4 Mg/Ml Vial IV PUSH Q2M PRN Opiate Reversal Ondansetron HCl 4 mg 11/06/24 00:01 Ondansetron Inj 4 Mg/2 Ml Vial IV PUSH Q4H PRN Nausea And Vomiting Pantoprazole Sodium 40 mg 11/06/24 09:00 11/11/24 08:56 Pantoprazole Sodium Iv 40 Mg Vial IV PUSH 40 mg Q12HR [facility] Administration Thiamine HCl 100 mg 11/06/24 09:00 11/11/24 08:56 Thiamine Hcl 200 Mg/2 Ml Vial IV PUSH 100 mg QAM SOURAV Administration Radiology Results: ITS Impressions Head CT 11/05/24 20:50 IMPRESSION: 1. Moderate nonspecific cerebral white matter disease, which likely represents chronic small vessel ischemic disease. 2. 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 Abdomen X-Ray 11/07/24 17:42 IMPRESSION: 1. Nasogastric tube tip in the stomach. 2. Fold thickening of bowel, consistent with interstitial edema versus enterocolitis. 3. Airspace opacities in the perihilar regions and lower lung zones, consistent with atelectasis versus pneumonia. Upper GI Series 11/08/24 12:17 IMPRESSION: 1. Slow gastric emptying likely related to postoperative ileus. No extraluminal leakage of contrast. Chest/Abdomen/Pelvis CT 11/10/24 10:38 IMPRESSION: 1. Small volume of ascites with mass effect on right lateral aspect of the liver, likely an exudate. 2. Small pleural effusions. 3. Wall thickening of the descending and sigmoid colon and rectum, consistent with colitis versus interstitial edema. Chest X-Ray 11/11/24 06:17 IMPRESSION: 1. Stable small pleural effusions. 2. Stable airspace opacities in the lower lung zones, consistent with atelectasis versus pneumonia. Labs Labs: Laboratory Results - last 24 hr 11/10/24 11/10/24 11/10/24 12:26 18:43 23:35 WBC RBC Hgb Hct MCV MCH MCHC RDW Plt Count MPV Sodium Potassium Chloride Carbon Dioxide Anion Gap BUN Creatinine Estim Creat Clear Calc Estimated GFR Glucose POC Capillary Glucose 132 H 123 H 123 H Calcium Magnesium Total Bilirubin AST ALT Alkaline Phosphatase Total Protein Albumin 11/11/24 11/11/24 06:21 06:31 WBC 18.4 H RBC 4.09 L Hgb 12.1 L Hct 36.9 L MCV 90.2 MCH 29.6 MCHC 32.8 RDW 15.4 H Plt Count 179 MPV 10.6 H Sodium 149 H Potassium 2.9 L Chloride 116 H Carbon Dioxide 32 H Anion Gap 1 L BUN 23 H Creatinine 0.70 Estim Creat Clear Calc 59 Estimated GFR > 60 Glucose 114 H POC Capillary Glucose 103 Calcium 8.2 L Magnesium 2.0 Total Bilirubin 0.9 AST 28 ALT 13 Alkaline Phosphatase 122 Total Protein 6.0 L Albumin 3.1 L Quality VTE Prophylaxis VTE prophylaxis: mechanical ordered and pharmacologic ordered Hospitalist MIPS Advance Care Plan I have confirmed that the patient's Advanced Care Plan is present, code status is documented, or surrogate decision maker is listed in patient medical record.: Yes Medication Reconciliation I have utilized all available resources to obtain, update and review the patients current medications (includes all prescriptions, OTC, herbals, cannabis, and nutritional supplements).: Yes
--- NOTE | 2024-11-11 10:14 | PM.PNGS ---
Progress Note: A&P Assessment and Plan (1) Perforated gastric ulcer: Code(s): K25.5 - Chronic or unspecified gastric ulcer with perforation Status: Acute Assessment and Plan: On Zosyn but WBC going up. Will add Micafungin for antimicrobial coverage. CT yesterday shows fluid collection over liver which might be loculated and developing into abscess. If WBC continues to rise, might need percutaneous drainage. Will try clear liquids today. Could consider NG removal but might need Swallow eval. Continue Protonix BID. Tolerating tube feeds. Subjective Subjective Date/Time Seen: 11/11/24 10:14 Interval history: Wanting water. Feels like he is doing well. Exam GI: Inspection: non-distended, incision (intact) and other (HARLEY serous) GI Palp: Yes Soft to palpation and No Guarding due to palpation present (GI) Auscultation: normal bowel sounds Objective Data Vital Signs Vital Signs: Vital Signs - 24 hr 11/10/24 12:00 11/10/24 12:00 11/10/24 16:00 Temperature 100.6 F H Pulse Rate 106 H Respiratory Rate 28 H Blood Pressure 133/67 Pulse Oximetry 94 94 94 Oxygen Delivery Nasal Cannula Nasal Cannula Oxygen Flow Rate 1 1 11/10/24 16:00 11/10/24 20:00 11/10/24 20:00 Temperature 100.4 F H Pulse Rate 100 101 H Respiratory Rate 30 H Blood Pressure 162/104 H Pulse Oximetry 94 96 Oxygen Delivery Nasal Cannula Oxygen Flow Rate 1 11/10/24 20:00 11/10/24 20:03 11/10/24 20:47 Temperature 100.6 F H 100.6 F H Pulse Rate 101 H 94 Respiratory Rate 27 H 26 H Blood Pressure 156/97 H Pulse Oximetry 97 Oxygen Delivery Oxygen Flow Rate 11/10/24 20:48 11/10/24 20:55 11/10/24 22:00 Temperature Pulse Rate 104 H 89 Respiratory Rate 28 H Blood Pressure Pulse Oximetry 96 Oxygen Delivery Nasal Cannula Oxygen Flow Rate 1 11/10/24 22:14 11/11/24 00:00 11/11/24 00:00 Temperature 99.6 F Pulse Rate 87 Respiratory Rate Blood Pressure Pulse Oximetry 94 Oxygen Delivery Nasal Cannula Oxygen Flow Rate 1 11/11/24 00:00 11/11/24 02:00 11/11/24 04:00 Temperature 99.7 F H Pulse Rate 87 89 90 Respiratory Rate 22 H Blood Pressure 150/94 H Pulse Oximetry 94 Oxygen Delivery Oxygen Flow Rate 11/11/24 04:00 11/11/24 04:30 11/11/24 06:00 Temperature 98.5 F Pulse Rate 92 95 Respiratory Rate 18 Blood Pressure 148/87 H Pulse Oximetry 97 Oxygen Delivery Room Air Oxygen Flow Rate 11/11/24 07:54 11/11/24 08:54 11/11/24 08:54 Temperature 97.5 F L Pulse Rate 95 89 Respiratory Rate 18 24 H Blood Pressure 168/99 H Pulse Oximetry 97 94 Oxygen Delivery Room Air Oxygen Flow Rate 11/11/24 09:08 Temperature Pulse Rate 90 Respiratory Rate 24 H Blood Pressure Pulse Oximetry Oxygen Delivery Oxygen Flow Rate Intake/Output Intake/Output: Intake & Output 11/08/24 11/09/24 11/10/24 11/11/24 23:59 23:59 23:59 23:59 Intake Total 1278.0 630 1244 610 Output Total 1315 2950 1357 500 Balance -37.0 -2320 -113 110 Meds/Results Medications: Active Medications Generic Name Dose Route Start Last Admin Trade Name Freq PRN Reason Stop Dose Admin Acetaminophen 650 mg 11/06/24 14:48 11/07/24 19:10 Acetaminophen 650 Mg Suppository RECTAL 650 mg Q4H PRN Administration Mild Pain (1-3) or Fever Acetaminophen 650 mg 11/08/24 13:37 11/10/24 20:03 Acetaminophen 325 Mg Tablet FEED TUBE 650 mg Q4H PRN Administration Headache, Fever, Mild Pain Hydrocodone Bitart/Acetaminophen 1 tab 11/08/24 13:37 11/10/24 20:04 Hydrocodone/Acetaminophen (*Crx) 5-325 Mg Tablet FEED TUBE 1 tab Q4H PRN Administration Pain Rated 4-6 Acetylcysteine 200 mg 11/09/24 20:00 11/11/24 08:53 Acetylcysteine 20% Inhal Soln 800 Mg/4 Ml Vial INHALATION 200 mg Q12HRT SOURAV Administration Albuterol 2.5 mg 11/09/24 15:38 11/11/24 08:53 Albuterol Sulfate Neb 2.5 Mg/3 Ml Inh INHALATION 2.5 mg Q12HR PRN Administration Shortness Of Breath Dextrose 12.5 gm 11/06/24 07:40 Dextrose 50% 25 Gm/50 Ml Syringe IV PUSH PRN PRN Hypoglycemia Protocol Enoxaparin Sodium 30 mg 11/06/24 09:00 11/11/24 08:56 Enoxaparin 30 Mg/0.3 Ml Syringe SUB-Q 30 mg DAILY SOURAV Administration Folic Acid 1 mg 11/06/24 09:00 11/11/24 08:56 Folic Acid 1 Mg/0.2 Ml Inj IV PUSH 1 mg QAM SOURAV Administration Glucagon 1 mg 11/06/24 07:40 Glucagon For Inj 1 Mg Vial IM PRN PRN Hypoglycemia Protocol Glucose 15 gm 11/06/24 07:40 Glucose Oral Gel 15 Gm Of Glucse In 37.5 Gm Tube PO PRN PRN Hypoglycemia Protocol Hydralazine HCl 10 mg 11/10/24 09:16 11/10/24 16:43 Hydralazine Hcl 20 Mg/Ml Vial IV PUSH 10 mg Q4HR PRN Administration Blood Pressure - High Dextrose 1,000 mls @ 100 mls/hr 11/06/24 07:40 Dextrose 5% 1,000 Ml IVPB PRN PRN Hypoglycemia Protocol Piperacillin/Tazobactam/Dextrose 3.375 gm in 50 mls @ 100 mls/hr 11/08/24 12:00 11/11/24 06:15 Zosyn 3.375 Gm/Ns 50 Ml IVPB 100 mls/hr Q6H [facility] Administration Vancomycin HCl 1,250 mg in 250 mls @ 166.667 mls/hr 11/11/24 09:00 11/11/24 08:56 Vancomycin 1,250 Mg/Ns 250 Ml IVPB 11/11/24 10:29 166.67 mls/hr ONCE ONE Administration Vancomycin HCl 1,000 mg in 250 mls @ 250 mls/hr 11/12/24 09:00 Vancomycin 1,000 Mg/Ns 250 Ml IVPB Q24H [facility] Micafungin Sodium 100 mg/ 100 mls @ 100 mls/hr 11/11/24 09:40 Sodium Chloride IVPB DAILY [facility] Insulin Aspart 2 - 5 units 11/08/24 12:00 11/11/24 07:28 Insulin Aspart (*Bkc) 100 Units/Ml SUB-Q Not Given Q6HR [facility] Protocol Morphine Sulfate 2 mg 11/08/24 07:39 Morphine Sulfate (*Crx) 2 Mg/Ml Inj IV PUSH Q2H PRN Moderate Pain (4-6) Morphine Sulfate 4 mg 11/08/24 07:39 11/08/24 08:17 Morphine Sulfate (*Crx) 4 Mg/Ml Inj IV PUSH 4 mg Q2H PRN Administration Pain Rated 7-10 Naloxone HCl 0.1 mg 11/06/24 00:01 Naloxone Hcl 0.4 Mg/Ml Vial IV PUSH Q2M PRN Opiate Reversal Ondansetron HCl 4 mg 11/06/24 00:01 Ondansetron Inj 4 Mg/2 Ml Vial IV PUSH Q4H PRN Nausea And Vomiting Pantoprazole Sodium 40 mg 11/06/24 09:00 11/11/24 08:56 Pantoprazole Sodium Iv 40 Mg Vial IV PUSH 40 mg Q12HR [facility] Administration Thiamine HCl 100 mg 11/06/24 09:00 11/11/24 08:56 Thiamine Hcl 200 Mg/2 Ml Vial IV PUSH 100 mg QAM SOURAV Administration Radiology Results: ITS Impressions Head CT 11/05/24 20:50 IMPRESSION: 1. Moderate nonspecific cerebral white matter disease, which likely represents chronic small vessel ischemic disease. 2. 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 Abdomen X-Ray 11/07/24 17:42 IMPRESSION: 1. Nasogastric tube tip in the stomach. 2. Fold thickening of bowel, consistent with interstitial edema versus enterocolitis. 3. Airspace opacities in the perihilar regions and lower lung zones, consistent with atelectasis versus pneumonia. Upper GI Series 11/08/24 12:17 IMPRESSION: 1. Slow gastric emptying likely related to postoperative ileus. No extraluminal leakage of contrast. Chest/Abdomen/Pelvis CT 11/10/24 10:38 IMPRESSION: 1. Small volume of ascites with mass effect on right lateral aspect of the liver, likely an exudate. 2. Small pleural effusions. 3. Wall thickening of the descending and sigmoid colon and rectum, consistent with colitis versus interstitial edema. Chest X-Ray 11/11/24 06:17 IMPRESSION: 1. Stable small pleural effusions. 2. Stable airspace opacities in the lower lung zones, consistent with atelectasis versus pneumonia. Labs Labs: Laboratory Results - last 24 hr 11/10/24 11/10/24 11/10/24 12:26 18:43 23:35 WBC RBC Hgb Hct MCV MCH MCHC RDW Plt Count MPV Sodium Potassium Chloride Carbon Dioxide Anion Gap BUN Creatinine Estim Creat Clear Calc Estimated GFR Glucose POC Capillary Glucose 132 H 123 H 123 H Calcium Magnesium Total Bilirubin AST ALT Alkaline Phosphatase Total Protein Albumin 11/11/24 11/11/24 06:21 06:31 WBC 18.4 H RBC 4.09 L Hgb 12.1 L Hct 36.9 L MCV 90.2 MCH 29.6 MCHC 32.8 RDW 15.4 H Plt Count 179 MPV 10.6 H Sodium 149 H Potassium 2.9 L Chloride 116 H Carbon Dioxide 32 H Anion Gap 1 L BUN 23 H Creatinine 0.70 Estim Creat Clear Calc 59 Estimated GFR > 60 Glucose 114 H POC Capillary Glucose 103 Calcium 8.2 L Magnesium 2.0 Total Bilirubin 0.9 AST 28 ALT 13 Alkaline Phosphatase 122 Total Protein 6.0 L Albumin 3.1 L
[2024-11-11] MEDS: HYDROcodone/acetaminophen (*CRX) 5-325 MG TABLET 1 TAB FEED TUBE ×2 (10:56→23:09)
[2024-11-11] MEDS: amLODIPine BESYLATE 5 MG TABLET PO (10:57)
[2024-11-11] MEDS: MICAFUNGIN SODIUM 100 MG in SODIUM CHLORIDE 0.9% IV 100 ML IVPB (10:57)
[2024-11-11] MEDS: POTASSIUM CHLORIDE 20 MEQ PACKET (FOR LIQUID) PO (10:58)
[2024-11-11 11:18] LABS: Glucose Point of Care 113 mg/dl (65-105)
[2024-11-11 12:40] LABS: Anion Gap 1 mmol/L (4-12); Blood Urea Nitrogen 23 mg/dL (9-20); Calcium 8.1 mg/dL (8.4-10.2); Carbon Dioxide 28 mmol/L (22-30); Chloride 119 mmol/L (98-107); Estimated CRCL calculation 59 ml/min; Estimated Glomerular Filt Rate > 60; Glucose 115 mg/dL (65-110); Magnesium 2.1 mg/dL (1.6-2.3); Potassium 3.8 mmol/L (3.4-5.0); Sodium 148 mmol/L (137-145)
--- NOTE | 2024-11-11 14:11 | PCSTNOTE ---
Please refer to the Bedside Swallow Evaluation in the EMR. Please note, silent aspiration cannot be ruled out at bedside. This 69-year-old male patient was admitted on 11/03 presenting to the emergency department in acute respiratory failure. The patient was discharged earlier on 11/05 with complaints of epigastric abdominal pain. On his way home the pt became unresponsive, was intubated in the field and was brought back to the emergency room. Upon ST arrival for bedside swallow evaluation, pt verbalized wanting water. His vocal quality is weak and hoarse. The pt is impulsive and unaware/unsafe regarding oral intake. The pt is edentulous but verbalized having dentures at home. KITTY Oglesby, verbalized that the pt coughs a lot, has a weak/hoarse voice, is forgetful and impulsive and is A&0X1 (he knows he is in a hospital). Trials of ice chips via spoon, cup sips of water, and extremely thick liquids (pudding) via spoon were administered at bedside this date. The pt was not able to follow directions (small sips). The pt demonstrated a delayed cough following a cup sip of water, but all other trials the pt did not cough or throat clear. The pt?s vocal quality became wet/gurgly quickly. Pt was encouraged to cough and swallow again but was unable to follow directions. Silent aspiration cannot be ruled out at bedside resulting in ST concluding the bedside swallow evaluation with the recommendation that the pt continue to be tube fed until a Modified Barium Swallow Study be obtained. Dr. Castro and KITTY Oglesby were notified of BSE results and recommendations. Thank you for this referral.
[2024-11-11 18:26] LABS: Glucose Point of Care 113 mg/dl (65-105)
[2024-11-12] VITALS (19 sets, daily range): BP systolic 137–191; BP diastolic 75–94; PULSE 84–100; RESP 18–24; TEMP 36.5–37.1; O2SAT 90–98
[2024-11-12 05:25] LABS: Hematocrit 35.2 % (42.0-52.0); Hemoglobin 11.1 g/dL (14.0-18.0); Mean Corpuscular HGB Conc 31.5 g/dl (32-36); Mean Corpuscular Hemoglobin 29.1 pg (26-34); Mean Corpuscular Volume 92.4 fl (80-100); Mean Platelet Volume 11.1 fl (7.4-10.4); Platelet Count Result 240 k/mm3 (150-375); Red Blood Count 3.81 M/mm3 (4.6-6.20); Red Cell Distribution Width 15.7 % (11.5-14.5); White Blood Count 22.8 K/mm3 (4.5-10.0)
[2024-11-12] MEDS: PIPERACILLN/TAZ 3.375GM/NS50ML 3.375 GM/50 ML BAG IVPB ×3 (05:33→17:03)
[2024-11-12 05:40] LABS: Alanine Aminotransferase 15 U/L (6-50); Alkaline Phosphatase 156 U/L (38-126); Anion Gap 2 mmol/L (4-12); Aspartate Amino Transferase 30 U/L (17-59); Bilirubin,Total 0.9 mg/dL (0.2-1.3); Blood Urea Nitrogen 23 mg/dL (9-20); Calcium 8.2 mg/dL (8.4-10.2); Carbon Dioxide 28 mmol/L (22-30); Chloride 120 mmol/L (98-107); Estimated CRCL calculation 53 ml/min; Estimated Glomerular Filt Rate > 60; Glucose 103 mg/dL (65-110); Potassium 3.3 mmol/L (3.4-5.0); Sodium 150 mmol/L (137-145)
[2024-11-12 06:30] LABS: Glucose Point of Care 107 mg/dl (65-105)
[2024-11-12] MEDS: ACETYLCYSTEINE 20% INHAL SOLN 800 MG/4 ML VIAL 200 MG INHALATION ×2 (07:30→20:25)
[2024-11-12] MEDS: ALBUTEROL SULFATE NEB 2.5 MG/3 ML INH INHALATION ×2 (07:38→20:25)
[2024-11-12] MEDS: amLODIPine BESYLATE 5 MG TABLET PO (08:39)
[2024-11-12] MEDS: ENOXAPARIN 40 MG/0.4 ML SYRINGE SUB-Q (08:40)
[2024-11-12] MEDS: MICAFUNGIN SODIUM 100 MG in SODIUM CHLORIDE 0.9% IV 100 ML IVPB (08:40)
[2024-11-12] MEDS: PANTOPRAZOLE SODIUM IV 40 MG VIAL IV PUSH ×2 (08:40→21:18)
[2024-11-12] MEDS: FOLIC ACID 1 MG/0.2 ML INJ IV PUSH (08:40)
[2024-11-12] MEDS: THIAMINE HCL 200 MG/2 ML VIAL 100 MG IV PUSH (08:40)
[2024-11-12] MEDS: VANCOMYCIN 1,000 MG/NS 250 ML 1,000 MG/250 ML BAG 250 MG IVPB (08:41)
--- NOTE | 2024-11-12 09:05 | PCDIET ---
Nutrition note: Tube feeding flush: Modify flushes from 30 ml q 4 hours to 100 ml q 4 hours. MD and RN communication. MBSS scheduled for today. Follow up tomorrow.
--- NOTE | 2024-11-12 10:25 | P.PNGS_ITS ---
Progress Note: A&P Assessment and Plan (1) Perforated gastric ulcer: Code(s): K25.5 - Chronic or unspecified gastric ulcer with perforation Status: Acute Assessment and Plan: increasing leukocytosis, will ask IR to place drain in RUQ fluid collection, cont abx, cont TFs thru NG for now Subjective Subjective Date/Time Seen: 11/12/24 10:25 Interval history: no acute issues, somewhat more alert, no pain, driss TFs, +bowel fxn Review of Systems Review of Systems: ROS unobtainable: Yes unobtainable due to mental status Exam Const: General: cooperative, confusion and ill appearing Resp: Auscultation: diminished lung sounds Cardio: Rate: regular rate Rhythm: regular rhythm GI: Inspection: normal to inspection and incision GI Palp: Yes abdominal tenderness, Yes Soft to palpation, Yes Tenderness to palpation present (GI), No Guarding due to palpation present (GI) and No Rigid due to palpation Other: HARLEY c minimal serous fluid Objective Data Vital Signs Vital Signs: Vital Signs - 24 hr 11/11/24 11:45 11/11/24 11:45 11/11/24 12:00 Temperature 36.5 C Pulse Rate 89 89 Respiratory Rate 18 Blood Pressure 147/86 H Pulse Oximetry 93 Oxygen Delivery Room Air Oxygen Flow Rate Fraction of Inspired Oxygen 11/11/24 14:00 11/11/24 15:15 11/11/24 15:59 Temperature 37.1 C Pulse Rate 95 95 Respiratory Rate 18 Blood Pressure 156/86 H Pulse Oximetry 95 Oxygen Delivery Room Air Oxygen Flow Rate Fraction of Inspired Oxygen 11/11/24 16:00 11/11/24 18:00 11/11/24 20:00 Temperature 37.2 C Pulse Rate 93 96 96 Respiratory Rate 19 Blood Pressure 168/82 H Pulse Oximetry 98 Oxygen Delivery Oxygen Flow Rate Fraction of Inspired Oxygen 11/11/24 20:00 11/11/24 20:00 11/11/24 20:23 Temperature Pulse Rate 105 H 105 H 96 Respiratory Rate 20 20 Blood Pressure Pulse Oximetry 95 Oxygen Delivery Room Air Oxygen Flow Rate Fraction of Inspired Oxygen 32 11/11/24 20:34 11/11/24 20:34 11/11/24 22:00 Temperature Pulse Rate 92 98 Respiratory Rate 20 Blood Pressure Pulse Oximetry 95 Oxygen Delivery Nasal Cannula Oxygen Flow Rate 1 Fraction of Inspired Oxygen 11/12/24 00:00 11/12/24 00:00 11/12/24 00:00 Temperature 37.1 C Pulse Rate 100 100 97 Respiratory Rate 18 18 Blood Pressure 137/75 Pulse Oximetry 98 98 Oxygen Delivery Room Air Oxygen Flow Rate Fraction of Inspired Oxygen 32 11/12/24 02:00 11/12/24 04:00 11/12/24 04:00 Temperature Pulse Rate 84 88 88 Respiratory Rate 18 Blood Pressure Pulse Oximetry 98 Oxygen Delivery Room Air Oxygen Flow Rate Fraction of Inspired Oxygen 32 11/12/24 04:00 11/12/24 06:00 11/12/24 07:33 Temperature 36.7 C Pulse Rate 93 88 Respiratory Rate 18 Blood Pressure 191/87 H Pulse Oximetry 98 93 Oxygen Delivery Room Air Oxygen Flow Rate Fraction of Inspired Oxygen 11/12/24 07:33 11/12/24 08:25 Temperature 36.7 C Pulse Rate 84 91 Respiratory Rate 20 20 Blood Pressure 170/84 H Pulse Oximetry 95 Oxygen Delivery Oxygen Flow Rate Fraction of Inspired Oxygen Intake/Output Intake/Output: Intake & Output 11/09/24 11/10/24 11/11/24 11/12/24 23:59 23:59 23:59 23:59 Intake Total 630 1507.3 1898 50 Output Total 2950 1357 1050 700 Balance -2320 150.3 848 -650 Meds/Results Medications: Active Medications Generic Name Dose Route Start Last Admin Trade Name Freq PRN Reason Stop Dose Admin Acetaminophen 650 mg 11/06/24 14:48 11/07/24 19:10 Acetaminophen 650 Mg Suppository RECTAL 650 mg Q4H PRN Administration Mild Pain (1-3) or Fever Acetaminophen 650 mg 11/08/24 13:37 11/10/24 20:03 Acetaminophen 325 Mg Tablet FEED TUBE 650 mg Q4H PRN Administration Headache, Fever, Mild Pain Hydrocodone Bitart/Acetaminophen 1 tab 11/08/24 13:37 11/11/24 23:09 Hydrocodone/Acetaminophen (*Crx) 5-325 Mg Tablet FEED TUBE 1 tab Q4H PRN Administration Pain Rated 4-6 Acetylcysteine 200 mg 11/09/24 20:00 11/12/24 07:30 Acetylcysteine 20% Inhal Soln 800 Mg/4 Ml Vial INHALATION 200 mg Q12HRT SOURAV Administration Albuterol 2.5 mg 11/09/24 15:38 11/12/24 07:38 Albuterol Sulfate Neb 2.5 Mg/3 Ml Inh INHALATION 2.5 mg Q12HR PRN Administration Shortness Of Breath Amlodipine Besylate 5 mg 11/11/24 09:00 11/12/24 08:39 Amlodipine Besylate 5 Mg Tablet PO 5 mg DAILY SOURAV Administration Dextrose 12.5 gm 11/06/24 07:40 Dextrose 50% 25 Gm/50 Ml Syringe IV PUSH PRN PRN Hypoglycemia Protocol Enoxaparin Sodium 40 mg 11/12/24 09:00 11/12/24 08:40 Enoxaparin 40 Mg/0.4 Ml Syringe SUB-Q 40 mg DAILY SOURAV Administration Folic Acid 1 mg 11/06/24 09:00 11/12/24 08:40 Folic Acid 1 Mg/0.2 Ml Inj IV PUSH 1 mg QAM SOURAV Administration Glucagon 1 mg 11/06/24 07:40 Glucagon For Inj 1 Mg Vial IM PRN PRN Hypoglycemia Protocol Glucose 15 gm 11/06/24 07:40 Glucose Oral Gel 15 Gm Of Glucse In 37.5 Gm Tube PO PRN PRN Hypoglycemia Protocol Hydralazine HCl 10 mg 11/10/24 09:16 11/10/24 16:43 Hydralazine Hcl 20 Mg/Ml Vial IV PUSH 10 mg Q4HR PRN Administration Blood Pressure - High Dextrose 1,000 mls @ 100 mls/hr 11/06/24 07:40 Dextrose 5% 1,000 Ml IVPB PRN PRN Hypoglycemia Protocol Piperacillin/Tazobactam/Dextrose 3.375 gm in 50 mls @ 100 mls/hr 11/08/24 12:00 11/12/24 06:05 Zosyn 3.375 Gm/Ns 50 Ml IVPB Infused Q6H SOURAV Infusion Vancomycin HCl 1,000 mg in 250 mls @ 250 mls/hr 11/12/24 09:00 11/12/24 08:41 Vancomycin 1,000 Mg/Ns 250 Ml IVPB 250 mls/hr Q24H SOURAV Administration Micafungin Sodium 100 mg/ 100 mls @ 100 mls/hr 11/11/24 09:40 11/12/24 08:40 Sodium Chloride IVPB 100 mls/hr DAILY SOURAV Administration Insulin Aspart 2 - 5 units 11/08/24 12:00 11/12/24 06:32 Insulin Aspart (*Bkc) 100 Units/Ml SUB-Q Not Given Q6HR [facility] Protocol Morphine Sulfate 2 mg 11/08/24 07:39 Morphine Sulfate (*Crx) 2 Mg/Ml Inj IV PUSH Q2H PRN Moderate Pain (4-6) Morphine Sulfate 4 mg 11/08/24 07:39 11/08/24 08:17 Morphine Sulfate (*Crx) 4 Mg/Ml Inj IV PUSH 4 mg Q2H PRN Administration Pain Rated 7-10 Naloxone HCl 0.1 mg 11/06/24 00:01 Naloxone Hcl 0.4 Mg/Ml Vial IV PUSH Q2M PRN Opiate Reversal Ondansetron HCl 4 mg 11/06/24 00:01 Ondansetron Inj 4 Mg/2 Ml Vial IV PUSH Q4H PRN Nausea And Vomiting Pantoprazole Sodium 40 mg 11/06/24 09:00 11/12/24 08:40 Pantoprazole Sodium Iv 40 Mg Vial IV PUSH 40 mg Q12HR SOURAV Administration Thiamine HCl 100 mg 11/06/24 09:00 11/12/24 08:40 Thiamine Hcl 200 Mg/2 Ml Vial IV PUSH 100 mg QAM SOURAV Administration Radiology Results: ITS Impressions Head CT 11/05/24 20:50 IMPRESSION: 1. Moderate nonspecific cerebral white matter disease, which likely represents chronic small vessel ischemic disease. 2. 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 Abdomen X-Ray 11/07/24 17:42 IMPRESSION: 1. Nasogastric tube tip in the stomach. 2. Fold thickening of bowel, consistent with interstitial edema versus enterocolitis. 3. Airspace opacities in the perihilar regions and lower lung zones, consistent with atelectasis versus pneumonia. Upper GI Series 11/08/24 12:17 IMPRESSION: 1. Slow gastric emptying likely related to postoperative ileus. No extraluminal leakage of contrast. Chest/Abdomen/Pelvis CT 11/10/24 10:38 IMPRESSION: 1. Small volume of ascites with mass effect on right lateral aspect of the liver, likely an exudate. 2. Small pleural effusions. 3. Wall thickening of the descending and sigmoid colon and rectum, consistent with colitis versus interstitial edema. Chest X-Ray 11/11/24 06:17 IMPRESSION: 1. Stable small pleural effusions. 2. Stable airspace opacities in the lower lung zones, consistent with atelectasis versus pneumonia. Labs Labs: Laboratory Results - last 24 hr 11/11/24 11/11/24 11/11/24 11:10 12:24 18:15 WBC RBC Hgb Hct MCV MCH MCHC RDW Plt Count MPV Sodium 148 H Potassium 3.8 Chloride 119 H Carbon Dioxide 28 Anion Gap 1 L BUN 23 H Creatinine 0.70 Estim Creat Clear Calc 59 Estimated GFR > 60 Glucose 115 H POC Capillary Glucose 113 H 113 H Calcium 8.1 L Magnesium 2.1 Total Bilirubin AST ALT Alkaline Phosphatase Total Protein Albumin 11/12/24 11/12/24 04:48 06:28 WBC 22.8 H RBC 3.81 L Hgb 11.1 L Hct 35.2 L MCV 92.4 MCH 29.1 MCHC 31.5 L RDW 15.7 H Plt Count 240 MPV 11.1 H Sodium 150 H Potassium 3.3 L Chloride 120 H Carbon Dioxide 28 Anion Gap 2 L BUN 23 H Creatinine 0.70 Estim Creat Clear Calc 53 Estimated GFR > 60 Glucose 103 POC Capillary Glucose 107 H Calcium 8.2 L Magnesium Total Bilirubin 0.9 AST 30 ALT 15 Alkaline Phosphatase 156 H Total Protein 6.0 L Albumin 3.0 L
[2024-11-12 11:12] LABS: Glucose Point of Care 124 mg/dl (65-105)
[2024-11-12] MEDS: POTASSIUM CHLORIDE 20 MEQ PACKET (FOR LIQUID) FEED TUBE (12:20)
--- NOTE | 2024-11-12 13:54 | PCSTNOTE ---
Please refer to the Modified Barium Swallow Evaluation in the EMR.
--- NOTE | 2024-11-12 16:19 | PM.IMPN ---
Progress Note: A&P Assessment and Plan (1) Metabolic acidosis: Code(s): E87.20 - Acidosis, unspecified Status: Acute (2) DEBI (acute kidney injury): Code(s): N17.9 - Acute kidney failure, unspecified Status: Acute (3) Perforated gastric ulcer: Code(s): K25.5 - Chronic or unspecified gastric ulcer with perforation Status: Acute (4) COPD (chronic obstructive pulmonary disease): Code(s): J44.9 - Chronic obstructive pulmonary disease, unspecified Status: Acute (5) Sepsis: Code(s): A41.9 - Sepsis, unspecified organism Status: Acute (6) Pneumonia: Code(s): J18.9 - Pneumonia, unspecified organism Status: Acute (7) Acute hypoxic respiratory failure: Code(s): J96.01 - Acute respiratory failure with hypoxia Status: Acute (8) Sepsis associated hypotension: Code(s): A41.9 - Sepsis, unspecified organism; I95.9 - Hypotension, unspecified Status: Acute (9) EtOH dependence: Code(s): F10.20 - Alcohol dependence, uncomplicated Status: Acute Plan Acute hypoxic respiratory failure: Acute Respiratory failure secondary to sepsis, perforated gastric ulcer, general anaesthesia resolved extubated Sepsis, unspecified organism Sepsis secondary to right lower lobe pneumonia which is likely aspiration, perforated gastric ulcer and peritonitis Continue empiric Zosyn and started vancomycin Management of perforated gastric ulcer as below Still has low-grade fever, mild leukocytosis, blood culture has no growth so far plan ir to place drain and to continue present iv abx Zosyn, Vancomycin and Mycofungin Pneumonia: CT scan shows right lower lobe pneumonia which is likely aspiration. Continue Zosyn EtOH dependence: Thiamine and folic acid ordered COPD Not in exacerbation Bronchodilators ordered Perforated gastric ulcer: Chronic or unspecified gastric ulcer with perforation Status post exploratory laparotomy, extensive lysis of adhesions, intra-abdominal washout, repair of perforated gastric ulcer with omental patch HARLEY drain placed Dressing on the surgical incision Patient is on Zosyn, Vancomycin and Mycofungin DEBI resolved now DEBI likely secondary to sepsis hypotension, fluid shift and hypovolemia Patient received fluid resuscitation and also 25% albumin CT scan does not show any hydronephrosis or obstruction Monitor urine output electrolytes and creatinine Patient has a hypokalemia, creat is stable post iv fluids Replete with potassium chloride Consult peoples[employer] consultant Metabolic acidosis Resolved off sodium bicarbonate Subjective Date/time seen: 11/12/24 16:19 Interval history: Pt admitted with gastric ulcer perforation, sepsis, pneumonia, metabolic acidosis Sp exploratory laparotomy, extensive lysis of adhesions, intra-abdominal washout, repair of perforated gastric ulcer with omental patch on 11/05. Presently with tube feeds watching sodium levels and potassium levels wcc staying up as pr surgery note pt will need to have IR to place drain in RUQ fluid collection and cont iv abx Review of Systems Review of Systems: Pt with a dry throat not talking loudly with ng tube in situ on tube feeds looks weak and tired Exam Narrative: General: , lethargic, chronically unwell thin and disheveled with ng tube in situ Lungs/Chest: Trachea central Coarse BS B/L, No crackles or wheezing. Cardiac: RRR. Normal S1 S2. No murmurs Abdomen: Decreased but present bowel sounds. HARLEY drain in place. Soft. Tender to palpation as patient grimaces on exam. NG tube in place Extremities: No clubbing, cyanosis or edema. Warm : Shen in place Neurologic: Patient is able to move all 4 extremities spontaneously. Objective Data Vital Signs Vital Signs: Vital Signs - 24 hr 11/11/24 18:00 11/11/24 20:00 11/11/24 20:00 Temperature 37.2 C Pulse Rate 96 96 105 H Respiratory Rate 19 20 Blood Pressure 168/82 H Pulse Oximetry 98 95 Oxygen Delivery Room Air Oxygen Flow Rate Fraction of Inspired Oxygen 32 11/11/24 20:00 11/11/24 20:23 11/11/24 20:34 Temperature Pulse Rate 105 H 96 92 Respiratory Rate 20 20 Blood Pressure Pulse Oximetry Oxygen Delivery Oxygen Flow Rate Fraction of Inspired Oxygen 11/11/24 20:34 11/11/24 22:00 11/12/24 00:00 Temperature Pulse Rate 98 100 Respiratory Rate 18 Blood Pressure Pulse Oximetry 95 98 Oxygen Delivery Nasal Cannula Room Air Oxygen Flow Rate 1 Fraction of Inspired Oxygen 11/12/24 00:00 11/12/24 00:00 11/12/24 02:00 Temperature 37.1 C Pulse Rate 100 97 84 Respiratory Rate 18 Blood Pressure 137/75 Pulse Oximetry 98 Oxygen Delivery Oxygen Flow Rate Fraction of Inspired Oxygen 11/12/24 04:00 11/12/24 04:00 11/12/24 04:00 Temperature 36.7 C Pulse Rate 88 88 93 Respiratory Rate 18 18 Blood Pressure 191/87 H Pulse Oximetry 98 98 Oxygen Delivery Room Air Oxygen Flow Rate Fraction of Inspired Oxygen 32 11/12/24 06:00 11/12/24 07:33 11/12/24 07:33 Temperature Pulse Rate 88 84 Respiratory Rate 20 Blood Pressure Pulse Oximetry 93 Oxygen Delivery Room Air Oxygen Flow Rate Fraction of Inspired Oxygen 11/12/24 08:00 11/12/24 08:25 11/12/24 10:00 Temperature 36.7 C Pulse Rate 91 91 87 Respiratory Rate 20 Blood Pressure 170/84 H Pulse Oximetry 95 Oxygen Delivery Oxygen Flow Rate Fraction of Inspired Oxygen 11/12/24 11:18 11/12/24 12:00 11/12/24 14:00 Temperature 36.5 C Pulse Rate 91 93 97 Respiratory Rate 18 Blood Pressure 159/86 H Pulse Oximetry 93 Oxygen Delivery Oxygen Flow Rate Fraction of Inspired Oxygen 11/12/24 16:00 Temperature Pulse Rate 94 Respiratory Rate Blood Pressure Pulse Oximetry Oxygen Delivery Oxygen Flow Rate Fraction of Inspired Oxygen Intake/Output Intake/Output: Intake & Output 11/09/24 11/10/24 11/11/24 11/12/24 23:59 23:59 23:59 23:59 Intake Total 630 1507.3 1898 450 Output Total 2950 1357 1050 1670 Balance -2320 150.3 848 -1220 Meds/Results Medications: Active Medications Generic Name Dose Route Start Last Admin Trade Name Freq PRN Reason Stop Dose Admin Acetaminophen 650 mg 11/06/24 14:48 11/07/24 19:10 Acetaminophen 650 Mg Suppository RECTAL 650 mg Q4H PRN Administration Mild Pain (1-3) or Fever Acetaminophen 650 mg 11/08/24 13:37 11/10/24 20:03 Acetaminophen 325 Mg Tablet FEED TUBE 650 mg Q4H PRN Administration Headache, Fever, Mild Pain Hydrocodone Bitart/Acetaminophen 1 tab 11/08/24 13:37 11/11/24 23:09 Hydrocodone/Acetaminophen (*Crx) 5-325 Mg Tablet FEED TUBE 1 tab Q4H PRN Administration Pain Rated 4-6 Acetylcysteine 200 mg 11/09/24 20:00 11/12/24 07:30 Acetylcysteine 20% Inhal Soln 800 Mg/4 Ml Vial INHALATION 200 mg Q12HRT SOURAV Administration Albuterol 2.5 mg 11/09/24 15:38 11/12/24 07:38 Albuterol Sulfate Neb 2.5 Mg/3 Ml Inh INHALATION 2.5 mg Q12HR PRN Administration Shortness Of Breath Amlodipine Besylate 5 mg 11/11/24 09:00 11/12/24 08:39 Amlodipine Besylate 5 Mg Tablet PO 5 mg DAILY SOURAV Administration Dextrose 12.5 gm 11/06/24 07:40 Dextrose 50% 25 Gm/50 Ml Syringe IV PUSH PRN PRN Hypoglycemia Protocol Enoxaparin Sodium 40 mg 11/12/24 09:00 11/12/24 08:40 Enoxaparin 40 Mg/0.4 Ml Syringe SUB-Q 40 mg DAILY SOURAV Administration Folic Acid 1 mg 11/06/24 09:00 11/12/24 08:40 Folic Acid 1 Mg/0.2 Ml Inj IV PUSH 1 mg QAM SOURAV Administration Glucagon 1 mg 11/06/24 07:40 Glucagon For Inj 1 Mg Vial IM PRN PRN Hypoglycemia Protocol Glucose 15 gm 11/06/24 07:40 Glucose Oral Gel 15 Gm Of Glucse In 37.5 Gm Tube PO PRN PRN Hypoglycemia Protocol Hydralazine HCl 10 mg 11/10/24 09:16 11/10/24 16:43 Hydralazine Hcl 20 Mg/Ml Vial IV PUSH 10 mg Q4HR PRN Administration Blood Pressure - High Dextrose 1,000 mls @ 100 mls/hr 11/06/24 07:40 Dextrose 5% 1,000 Ml IVPB PRN PRN Hypoglycemia Protocol Piperacillin/Tazobactam/Dextrose 3.375 gm in 50 mls @ 100 mls/hr 11/08/24 12:00 11/12/24 12:50 Zosyn 3.375 Gm/Ns 50 Ml IVPB Infused Q6H SOURAV Infusion Vancomycin HCl 1,000 mg in 250 mls @ 250 mls/hr 11/12/24 09:00 11/12/24 16:01 Vancomycin 1,000 Mg/Ns 250 Ml IVPB Infused Q24H SOURAV Infusion Micafungin Sodium 100 mg/ 100 mls @ 100 mls/hr 11/11/24 09:40 11/12/24 09:40 Sodium Chloride IVPB Infused DAILY SOURAV Infusion Insulin Aspart 2 - 5 units 11/08/24 12:00 11/12/24 11:20 Insulin Aspart (*Bkc) 100 Units/Ml SUB-Q Not Given Q6HR [facility] Protocol Morphine Sulfate 2 mg 11/08/24 07:39 Morphine Sulfate (*Crx) 2 Mg/Ml Inj IV PUSH Q2H PRN Moderate Pain (4-6) Morphine Sulfate 4 mg 11/08/24 07:39 11/08/24 08:17 Morphine Sulfate (*Crx) 4 Mg/Ml Inj IV PUSH 4 mg Q2H PRN Administration Pain Rated 7-10 Naloxone HCl 0.1 mg 11/06/24 00:01 Naloxone Hcl 0.4 Mg/Ml Vial IV PUSH Q2M PRN Opiate Reversal Ondansetron HCl 4 mg 11/06/24 00:01 Ondansetron Inj 4 Mg/2 Ml Vial IV PUSH Q4H PRN Nausea And Vomiting Pantoprazole Sodium 40 mg 11/06/24 09:00 11/12/24 08:40 Pantoprazole Sodium Iv 40 Mg Vial IV PUSH 40 mg Q12HR SOURAV Administration Potassium Chloride 20 meq 11/12/24 11:25 11/12/24 12:20 Potassium Chloride 20 Meq Packet (For Liquid) FEED TUBE 20 meq DAILY SOURAV Administration Thiamine HCl 100 mg 11/06/24 09:00 11/12/24 08:40 Thiamine Hcl 200 Mg/2 Ml Vial IV PUSH 100 mg QAM SOURAV Administration Radiology Results: ITS Impressions Head CT 11/05/24 20:50 IMPRESSION: 1. Moderate nonspecific cerebral white matter disease, which likely represents chronic small vessel ischemic disease. 2. 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 Abdomen X-Ray 11/07/24 17:42 IMPRESSION: 1. Nasogastric tube tip in the stomach. 2. Fold thickening of bowel, consistent with interstitial edema versus enterocolitis. 3. Airspace opacities in the perihilar regions and lower lung zones, consistent with atelectasis versus pneumonia. Upper GI Series 11/08/24 12:17 IMPRESSION: 1. Slow gastric emptying likely related to postoperative ileus. No extraluminal leakage of contrast. Chest/Abdomen/Pelvis CT 11/10/24 10:38 IMPRESSION: 1. Small volume of ascites with mass effect on right lateral aspect of the liver, likely an exudate. 2. Small pleural effusions. 3. Wall thickening of the descending and sigmoid colon and rectum, consistent with colitis versus interstitial edema. Chest X-Ray 11/11/24 06:17 IMPRESSION: 1. Stable small pleural effusions. 2. Stable airspace opacities in the lower lung zones, consistent with atelectasis versus pneumonia. Modified Barium Swallow 11/12/24 11:25 IMPRESSION: 1. Laryngeal penetration. 2. Please refer to the speech therapy report for recommendations. Catheter Placement CT 11/12/24 14:47 IMPRESSION: 1. Successful CT-guided right upper quadrant abdominal abscess drainage yielding yellow fluid. Labs Labs: Laboratory Results - last 24 hr 11/11/24 11/12/24 11/12/24 18:15 04:48 06:28 WBC 22.8 H RBC 3.81 L Hgb 11.1 L Hct 35.2 L MCV 92.4 MCH 29.1 MCHC 31.5 L RDW 15.7 H Plt Count 240 MPV 11.1 H Sodium 150 H Potassium 3.3 L Chloride 120 H Carbon Dioxide 28 Anion Gap 2 L BUN 23 H Creatinine 0.70 Estim Creat Clear Calc 53 Estimated GFR > 60 Glucose 103 POC Capillary Glucose 113 H 107 H Calcium 8.2 L Total Bilirubin 0.9 AST 30 ALT 15 Alkaline Phosphatase 156 H Total Protein 6.0 L Albumin 3.0 L 11/12/24 11:10 WBC RBC Hgb Hct MCV MCH MCHC RDW Plt Count MPV Sodium Potassium Chloride Carbon Dioxide Anion Gap BUN Creatinine Estim Creat Clear Calc Estimated GFR Glucose POC Capillary Glucose 124 H Calcium Total Bilirubin AST ALT Alkaline Phosphatase Total Protein Albumin
[2024-11-12 18:50] LABS: Glucose Point of Care 107 mg/dl (65-105)
[2024-11-12] MEDS: hydrALAZINE HCL 20 MG/ML VIAL 10 MG IV PUSH (21:18)
[2024-11-12] MEDS: HYDROcodone/acetaminophen (*CRX) 5-325 MG TABLET 1 TAB FEED TUBE (21:18)
[2024-11-12 23:51] LABS: Glucose Point of Care 120 mg/dl (65-105)
[2024-11-13] VITALS (21 sets, daily range): BP systolic 140–169; BP diastolic 77–85; PULSE 79–92; RESP 18–26; TEMP 36.3–37; O2SAT 91–99
[2024-11-13] MEDS: PIPERACILLN/TAZ 3.375GM/NS50ML 3.375 GM/50 ML BAG IVPB ×4 (00:03→17:35)
[2024-11-13 05:44] LABS: Glucose Point of Care 121 mg/dl (65-105)
[2024-11-13 06:09] LABS: Toxigenic C. Diff NEGATIVE (NEGATIVE)
[2024-11-13] MEDS: ALBUTEROL SULFATE NEB 2.5 MG/3 ML INH INHALATION ×2 (07:42→20:32)
[2024-11-13] MEDS: ACETYLCYSTEINE 20% INHAL SOLN 800 MG/4 ML VIAL 200 MG INHALATION ×2 (07:42→20:29)
[2024-11-13 08:27] LABS: Anion Gap 2 mmol/L (4-12); Blood Urea Nitrogen 25 mg/dL (9-20); Calcium 8.3 mg/dL (8.4-10.2); Carbon Dioxide 27 mmol/L (22-30); Chloride 123 mmol/L (98-107); Estimated CRCL calculation 53 ml/min; Estimated Glomerular Filt Rate > 60; Glucose 118 mg/dL (65-110); Potassium 3.3 mmol/L (3.4-5.0); Sodium 152 mmol/L (137-145)
[2024-11-13] MEDS: MICAFUNGIN SODIUM 100 MG in SODIUM CHLORIDE 0.9% IV 100 ML IVPB (08:28)
[2024-11-13] MEDS: THIAMINE HCL 200 MG/2 ML VIAL 100 MG IV PUSH (08:28)
[2024-11-13] MEDS: POTASSIUM CHLORIDE 20 MEQ PACKET (FOR LIQUID) FEED TUBE (08:28)
[2024-11-13] MEDS: FOLIC ACID 1 MG/0.2 ML INJ IV PUSH (08:28)
[2024-11-13] MEDS: ENOXAPARIN 40 MG/0.4 ML SYRINGE SUB-Q (08:28)
[2024-11-13] MEDS: amLODIPine BESYLATE 5 MG TABLET PO (08:28)
[2024-11-13] MEDS: PANTOPRAZOLE SODIUM IV 40 MG VIAL IV PUSH ×2 (08:28→20:22)
[2024-11-13 09:08] LABS: Hematocrit 34.9 % (42.0-52.0); Hemoglobin 11.1 g/dL (14.0-18.0); Mean Corpuscular HGB Conc 31.8 g/dl (32-36); Mean Corpuscular Hemoglobin 29.2 pg (26-34); Mean Corpuscular Volume 91.8 fl (80-100); Mean Platelet Volume 11.1 fl (7.4-10.4); Platelet Count Result 342 k/mm3 (150-375); Red Cell Distribution Width 15.9 % (11.5-14.5); White Blood Count 19.3 K/mm3 (4.5-10.0)
[2024-11-13 09:26] LABS: Vancomycin Trough < 5.0 ug/mL (10.0-20.0)
[2024-11-13] MEDS: VANCOMYCIN 1,250 MG/NS 250 ML 1,250 MG/250 ML BAG 166.67 MG IVPB (10:13)
--- NOTE | 2024-11-13 10:21 | P.PNGS_ITS ---
Progress Note: A&P Assessment and Plan (1) Perforated gastric ulcer: Code(s): K25.5 - Chronic or unspecified gastric ulcer with perforation Status: Acute Assessment and Plan: clinically better, cont abx, cont drains, getting swallow study today, cont TFs at goal for now Subjective Subjective Date/Time Seen: 11/13/24 10:21 Interval history: more alert today, perc drain placed yest Review of Systems Review of Systems: ROS unobtainable: Yes unobtainable due to mental status Exam Const: General: cooperative, no acute distress and ill appearing Resp: Auscultation: clear to auscultation bilaterally Cardio: Rate: regular rate Rhythm: regular rhythm GI: Inspection: normal to inspection, Abdominal wall edema, distended and incision GI Palp: Yes abdominal tenderness, Yes Soft to palpation and Yes Tenderness to palpation present (GI) Other: HARLEY c minimal serous output, perc drain c thin, yellowish output 30 ml Objective Data Vital Signs Vital Signs: Vital Signs - 24 hr 11/12/24 11:18 11/12/24 12:00 11/12/24 14:00 Temperature 36.5 C Pulse Rate 91 93 97 Respiratory Rate 18 Blood Pressure 159/86 H Pulse Oximetry 93 Oxygen Delivery Fraction of Inspired Oxygen 11/12/24 16:00 11/12/24 16:38 11/12/24 18:00 Temperature 36.9 C Pulse Rate 94 94 95 Respiratory Rate 18 Blood Pressure 158/83 H Pulse Oximetry 93 Oxygen Delivery Fraction of Inspired Oxygen 11/12/24 20:00 11/12/24 20:00 11/12/24 20:28 Temperature 37.1 C Pulse Rate 87 88 85 Respiratory Rate 24 H 20 Blood Pressure 162/94 H Pulse Oximetry 92 Oxygen Delivery Fraction of Inspired Oxygen 11/12/24 20:30 11/12/24 20:36 11/12/24 22:00 Temperature Pulse Rate 88 94 Respiratory Rate 20 Blood Pressure Pulse Oximetry 90 Oxygen Delivery Room Air Fraction of Inspired Oxygen 11/13/24 00:00 11/13/24 00:00 11/13/24 02:00 Temperature 36.6 C Pulse Rate 81 83 82 Respiratory Rate 24 H Blood Pressure 140/78 Pulse Oximetry 95 Oxygen Delivery Fraction of Inspired Oxygen 11/13/24 04:00 11/13/24 04:00 11/13/24 06:00 Temperature 36.7 C Pulse Rate 84 85 82 Respiratory Rate 20 Blood Pressure 160/77 H Pulse Oximetry 94 Oxygen Delivery Fraction of Inspired Oxygen 11/13/24 07:42 11/13/24 07:42 11/13/24 07:59 Temperature 36.6 C Pulse Rate 87 92 Respiratory Rate 20 18 Blood Pressure 169/85 H Pulse Oximetry 91 94 Oxygen Delivery Room Air Fraction of Inspired Oxygen 21 Intake/Output Intake/Output: Intake & Output 11/10/24 11/11/24 11/12/24 11/13/24 23:59 23:59 23:59 23:59 Intake Total 1507.3 1898 1200 914 Output Total 1357 1050 2010 58 Balance 150.3 848 -810 329 Meds/Results Medications: Active Medications Generic Name Dose Route Start Last Admin Trade Name Freq PRN Reason Stop Dose Admin Acetaminophen 650 mg 11/06/24 14:48 11/07/24 19:10 Acetaminophen 650 Mg Suppository RECTAL 650 mg Q4H PRN Administration Mild Pain (1-3) or Fever Acetaminophen 650 mg 11/08/24 13:37 11/10/24 20:03 Acetaminophen 325 Mg Tablet FEED TUBE 650 mg Q4H PRN Administration Headache, Fever, Mild Pain Hydrocodone Bitart/Acetaminophen 1 tab 11/08/24 13:37 11/12/24 21:18 Hydrocodone/Acetaminophen (*Crx) 5-325 Mg Tablet FEED TUBE 1 tab Q4H PRN Administration Pain Rated 4-6 Acetylcysteine 200 mg 11/09/24 20:00 11/13/24 07:42 Acetylcysteine 20% Inhal Soln 800 Mg/4 Ml Vial INHALATION 200 mg Q12HRT SOURAV Administration Albuterol 2.5 mg 11/09/24 15:38 11/13/24 07:42 Albuterol Sulfate Neb 2.5 Mg/3 Ml Inh INHALATION 2.5 mg Q12HR PRN Administration Shortness Of Breath Amlodipine Besylate 5 mg 11/11/24 09:00 11/13/24 08:28 Amlodipine Besylate 5 Mg Tablet PO 5 mg DAILY SOURAV Administration Dextrose 12.5 gm 11/06/24 07:40 Dextrose 50% 25 Gm/50 Ml Syringe IV PUSH PRN PRN Hypoglycemia Protocol Enoxaparin Sodium 40 mg 11/12/24 09:00 11/13/24 08:28 Enoxaparin 40 Mg/0.4 Ml Syringe SUB-Q 40 mg DAILY SOURAV Administration Folic Acid 1 mg 11/06/24 09:00 11/13/24 08:28 Folic Acid 1 Mg/0.2 Ml Inj IV PUSH 1 mg QAM SOURAV Administration Glucagon 1 mg 11/06/24 07:40 Glucagon For Inj 1 Mg Vial IM PRN PRN Hypoglycemia Protocol Glucose 15 gm 11/06/24 07:40 Glucose Oral Gel 15 Gm Of Glucse In 37.5 Gm Tube PO PRN PRN Hypoglycemia Protocol Hydralazine HCl 10 mg 11/10/24 09:16 11/12/24 21:18 Hydralazine Hcl 20 Mg/Ml Vial IV PUSH 10 mg Q4HR PRN Administration Blood Pressure - High Dextrose 1,000 mls @ 100 mls/hr 11/06/24 07:40 Dextrose 5% 1,000 Ml IVPB PRN PRN Hypoglycemia Protocol Piperacillin/Tazobactam/Dextrose 3.375 gm in 50 mls @ 100 mls/hr 11/08/24 12:00 11/13/24 05:30 Zosyn 3.375 Gm/Ns 50 Ml IVPB Infused Q6H SORUAV Infusion Micafungin Sodium 100 mg/ 100 mls @ 100 mls/hr 11/11/24 09:40 11/13/24 08:28 Sodium Chloride IVPB 100 mls/hr DAILY SOURAV Administration Vancomycin HCl 1,250 mg in 250 mls @ 166.667 mls/hr 11/13/24 10:00 11/13/24 10:13 Vancomycin 1,250 Mg/Ns 250 Ml IVPB 166.67 mls/hr Q18H SOURAV Administration Insulin Aspart 2 - 5 units 11/08/24 12:00 11/13/24 05:02 Insulin Aspart (*Bkc) 100 Units/Ml SUB-Q Not Given Q6HR [facility] Protocol Morphine Sulfate 2 mg 11/08/24 07:39 Morphine Sulfate (*Crx) 2 Mg/Ml Inj IV PUSH Q2H PRN Moderate Pain (4-6) Morphine Sulfate 4 mg 11/08/24 07:39 11/08/24 08:17 Morphine Sulfate (*Crx) 4 Mg/Ml Inj IV PUSH 4 mg Q2H PRN Administration Pain Rated 7-10 Naloxone HCl 0.1 mg 11/06/24 00:01 Naloxone Hcl 0.4 Mg/Ml Vial IV PUSH Q2M PRN Opiate Reversal Ondansetron HCl 4 mg 11/06/24 00:01 Ondansetron Inj 4 Mg/2 Ml Vial IV PUSH Q4H PRN Nausea And Vomiting Pantoprazole Sodium 40 mg 11/06/24 09:00 11/13/24 08:28 Pantoprazole Sodium Iv 40 Mg Vial IV PUSH 40 mg Q12HR SOURAV Administration Potassium Chloride 20 meq 11/12/24 11:25 11/13/24 08:28 Potassium Chloride 20 Meq Packet (For Liquid) FEED TUBE 20 meq DAILY SOURAV Administration Thiamine HCl 100 mg 11/06/24 09:00 11/13/24 08:28 Thiamine Hcl 200 Mg/2 Ml Vial IV PUSH 100 mg QAM SOURAV Administration Radiology Results: ITS Impressions Head CT 11/05/24 20:50 IMPRESSION: 1. Moderate nonspecific cerebral white matter disease, which likely represents chronic small vessel ischemic disease. 2. 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 Abdomen X-Ray 11/07/24 17:42 IMPRESSION: 1. Nasogastric tube tip in the stomach. 2. Fold thickening of bowel, consistent with interstitial edema versus enterocolitis. 3. Airspace opacities in the perihilar regions and lower lung zones, consistent with atelectasis versus pneumonia. Upper GI Series 11/08/24 12:17 IMPRESSION: 1. Slow gastric emptying likely related to postoperative ileus. No extraluminal leakage of contrast. Chest/Abdomen/Pelvis CT 11/10/24 10:38 IMPRESSION: 1. Small volume of ascites with mass effect on right lateral aspect of the liver, likely an exudate. 2. Small pleural effusions. 3. Wall thickening of the descending and sigmoid colon and rectum, consistent with colitis versus interstitial edema. Chest X-Ray 11/11/24 06:17 IMPRESSION: 1. Stable small pleural effusions. 2. Stable airspace opacities in the lower lung zones, consistent with atelectasis versus pneumonia. Modified Barium Swallow 11/12/24 11:25 IMPRESSION: 1. Laryngeal penetration. 2. Please refer to the speech therapy report for recommendations. Catheter Placement CT 11/12/24 14:47 IMPRESSION: 1. Successful CT-guided right upper quadrant abdominal abscess drainage yielding yellow fluid. Labs Labs: Laboratory Results - last 24 hr 11/12/24 11/12/24 11/12/24 11:10 18:49 23:42 WBC RBC Hgb Hct MCV MCH MCHC RDW Plt Count MPV Sodium Potassium Chloride Carbon Dioxide Anion Gap BUN Creatinine Estim Creat Clear Calc Estimated GFR Glucose POC Capillary Glucose 124 H 107 H 120 H Calcium Vancomycin Trough C. difficile (PCR) 11/13/24 11/13/24 11/13/24 04:57 04:59 08:08 WBC 19.3 H RBC 3.80 L Hgb 11.1 L Hct 34.9 L MCV 91.8 MCH 29.2 MCHC 31.8 L RDW 15.9 H Plt Count 342 MPV 11.1 H Sodium Potassium Chloride Carbon Dioxide Anion Gap BUN Creatinine Estim Creat Clear Calc Estimated GFR Glucose POC Capillary Glucose 121 H Calcium Vancomycin Trough C. difficile (PCR) Negative 11/13/24 08:11 WBC RBC Hgb Hct MCV MCH MCHC RDW Plt Count MPV Sodium 152 H Potassium 3.3 L Chloride 123 H Carbon Dioxide 27 Anion Gap 2 L BUN 25 H Creatinine 0.70 Estim Creat Clear Calc 53 Estimated GFR > 60 Glucose 118 H POC Capillary Glucose Calcium 8.3 L Vancomycin Trough < 5.0 L C. difficile (PCR)
[2024-11-13] MEDS: POTASSIUM CHLORIDE 20 MEQ PACKET (FOR LIQUID) 40 MEQ FEED TUBE (10:52)
[2024-11-13] MEDS: ACETAMINOPHEN 325 MG TABLET 650 MG FEED TUBE (10:58)
[2024-11-13 11:40] LABS: Glucose Point of Care 128 mg/dl (65-105)
[2024-11-13 11:55] LABS: MRSA (PCR) NOT DETECTED (NOT DETECTE)
--- NOTE | 2024-11-13 12:20 | PCNFU ---
Nutrition Follow-Up Complete: Alerted GI function as related to perforated gastric ulcer as evidenced by NPO. Goal: estimated nutritional needs. Patient is progressing towards goal.We will continue current goal. Pt current nutrition is Vital AF 1.2 at 50 ml/hr with Pureed, Level 4 and Mod thick liquids, Level 3. Nutrition recommendation: Nutritional Ice Cream TID. Last recorded weight is 44.1 kg, stable Bowel Motility:+BM reported 11/13 Labs Reviewed: Glu 118, Na 152, BUN 25, K 3.3 Meds Noted: Folic Acid, Thiamine, Lovenox Skin: WNL Additional Notes: Patient had repeat MBS today recommending Pureed,Level 4 diet with Moderately Thick liquids, Level 3. Spoke with hospitalist today, they would like to continue NGT feedings and see how patient tolerates oral diet. orders for Nutritional Ice Cream TID for additional 300 kcal and 9 gm protein. Tube feedings of Vital AF 1.2 at 50 ml/hr providing an additional 1320 kcal/83 gm protein/892 ml water. Flush increased to 200 ml q 4 hours / to Na 152. Agree with diet orders. Will monitor weight, labs, skin, diet orders, meds daily in ICU and reassessing every Tuesday and Tuesday.
--- NOTE | 2024-11-13 16:25 | P.PNIM_ITS ---
Progress Note: A&P Assessment and Plan (1) Metabolic acidosis: Code(s): E87.20 - Acidosis, unspecified Status: Acute (2) DEBI (acute kidney injury): Code(s): N17.9 - Acute kidney failure, unspecified Status: Acute (3) Perforated gastric ulcer: Code(s): K25.5 - Chronic or unspecified gastric ulcer with perforation Status: Acute (4) COPD (chronic obstructive pulmonary disease): Code(s): J44.9 - Chronic obstructive pulmonary disease, unspecified Status: Acute (5) Sepsis: Code(s): A41.9 - Sepsis, unspecified organism Status: Acute (6) Pneumonia: Code(s): J18.9 - Pneumonia, unspecified organism Status: Acute (7) Acute hypoxic respiratory failure: Code(s): J96.01 - Acute respiratory failure with hypoxia Status: Acute (8) Sepsis associated hypotension: Code(s): A41.9 - Sepsis, unspecified organism; I95.9 - Hypotension, unspecified Status: Acute (9) EtOH dependence: Code(s): F10.20 - Alcohol dependence, uncomplicated Status: Acute Plan Acute hypoxic respiratory failure, resolved Acute Respiratory failure secondary to sepsis, perforated gastric ulcer, general anaesthesia resolved extubated now on room air Sepsis, unspecified organism Sepsis secondary to right lower lobe pneumonia which is likely aspiration, perforated gastric ulcer and peritonitis Continue empiric Zosyn and started vancomycin Management of perforated gastric ulcer as below Still has low-grade fever, mild leukocytosis, blood culture has no growth so far plan ir to place drain and to continue present iv abx Zosyn, Vancomycin and Micafungin Pneumonia: CT scan shows right lower lobe pneumonia which is likely aspiration. Continue Zosyn EtOH dependence: Thiamine and folic acid ordered COPD Not in exacerbation Bronchodilators ordered Perforated gastric ulcer: Chronic or unspecified gastric ulcer with perforation Status post exploratory laparotomy, extensive lysis of adhesions, intra- abdominal washout, repair of perforated gastric ulcer with omental patch HARLEY drain placed Dressing on the surgical incision Patient is on Zosyn, Vancomycin and Micafungin DEBI resolved now DEBI likely secondary to sepsis hypotension, fluid shift and hypovolemia Patient received fluid resuscitation and also 25% albumin CT scan does not show any hydronephrosis or obstruction Monitor urine output electrolytes and creatinine Patient has a hypokalemia, creat is stable post iv fluids Replete with potassium chloride Consult 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 Metabolic acidosis Resolved off sodium bicarbonate DVT prophylaxis on Sq lovenox Subjective Date/time seen: 11/13/24 16:25 Interval history: patient comfortable at bedside Speech eval cleared for pureed diet trial Review of Systems Review of Systems: Pt with a dry throat not talking loudly with ng tube in situ on tube feeds looks weak and tired ROS unobtainable: Yes unobtainable due to endotracheal tube, unobtainable due to medical condition and unobtainable due to mental status Exam Narrative: General: , lethargic, chronically unwell thin and disheveled with ng tube in situ Lungs/Chest: Trachea central Coarse BS B/L, No crackles or wheezing. Cardiac: RRR. Normal S1 S2. No murmurs Abdomen: Decreased but present bowel sounds. HARLEY drain in place. Soft. Tender to palpation as patient grimaces on exam. NG tube in place Extremities: No clubbing, cyanosis or edema. Warm : Shen in place Neurologic: Patient is able to move all 4 extremities spontaneously. Objective Data Vital Signs Vital Signs: Vital Signs - 24 hr 11/12/24 16:38 11/12/24 18:00 11/12/24 20:00 Temperature 98.4 F 98.7 F Pulse Rate 94 95 87 Respiratory Rate 18 24 H Blood Pressure 158/83 H 162/94 H Pulse Oximetry 93 92 Oxygen Delivery Fraction of Inspired Oxygen 11/12/24 20:00 11/12/24 20:28 11/12/24 20:30 Temperature Pulse Rate 88 85 Respiratory Rate 20 Blood Pressure Pulse Oximetry 90 Oxygen Delivery Room Air Fraction of Inspired Oxygen 11/12/24 20:36 11/12/24 22:00 11/13/24 00:00 Temperature 97.8 F Pulse Rate 88 94 81 Respiratory Rate 20 24 H Blood Pressure 140/78 Pulse Oximetry 95 Oxygen Delivery Fraction of Inspired Oxygen 11/13/24 00:00 11/13/24 02:00 11/13/24 04:00 Temperature 98.1 F Pulse Rate 83 82 84 Respiratory Rate 20 Blood Pressure 160/77 H Pulse Oximetry 94 Oxygen Delivery Fraction of Inspired Oxygen 11/13/24 04:00 11/13/24 06:00 11/13/24 07:42 Temperature Pulse Rate 85 82 Respiratory Rate Blood Pressure Pulse Oximetry 91 Oxygen Delivery Room Air Fraction of Inspired Oxygen 21 11/13/24 07:42 11/13/24 07:59 11/13/24 08:00 Temperature 97.8 F Pulse Rate 87 92 91 Respiratory Rate 20 18 Blood Pressure 169/85 H Pulse Oximetry 94 Oxygen Delivery Fraction of Inspired Oxygen 11/13/24 10:00 11/13/24 11:46 11/13/24 12:00 Temperature 97.6 F Pulse Rate 90 86 82 Respiratory Rate 18 Blood Pressure 149/81 H Pulse Oximetry 99 Oxygen Delivery Fraction of Inspired Oxygen 11/13/24 13:49 11/13/24 14:00 11/13/24 15:19 Temperature 98.1 F Pulse Rate 83 81 Respiratory Rate 20 Blood Pressure 155/80 H Pulse Oximetry 95 Oxygen Delivery Room Air Fraction of Inspired Oxygen Intake/Output Intake/Output: Intake & Output 11/10/24 11/11/24 11/12/24 11/13/24 23:59 23:59 23:59 23:59 Intake Total 1507.3 1898 1200 1554 Output Total 1357 1050 2010 585 Balance 150.3 848 -810 969 Meds/Results Medications: Active Medications Generic Name Dose Route Start Last Admin Trade Name Freq PRN Reason Stop Dose Admin Acetaminophen 650 mg 11/06/24 14:48 11/07/24 19:10 Acetaminophen 650 Mg Suppository RECTAL 650 mg Q4H PRN Administration Mild Pain (1-3) or Fever Acetaminophen 650 mg 11/08/24 13:37 11/13/24 10:58 Acetaminophen 325 Mg Tablet FEED TUBE 650 mg Q4H PRN Administration Headache, Fever, Mild Pain Hydrocodone Bitart/Acetaminophen 1 tab 11/08/24 13:37 11/12/24 21:18 Hydrocodone/Acetaminophen (*Crx) 5-325 Mg Tablet FEED TUBE 1 tab Q4H PRN Administration Pain Rated 4-6 Acetylcysteine 200 mg 11/09/24 20:00 11/13/24 07:42 Acetylcysteine 20% Inhal Soln 800 Mg/4 Ml Vial INHALATION 200 mg Q12HRT SOURAV Administration Albuterol 2.5 mg 11/09/24 15:38 11/13/24 07:42 Albuterol Sulfate Neb 2.5 Mg/3 Ml Inh INHALATION 2.5 mg Q12HR PRN Administration Shortness Of Breath Amlodipine Besylate 5 mg 11/11/24 09:00 11/13/24 08:28 Amlodipine Besylate 5 Mg Tablet PO 5 mg DAILY SOURAV Administration Dextrose 12.5 gm 11/06/24 07:40 Dextrose 50% 25 Gm/50 Ml Syringe IV PUSH PRN PRN Hypoglycemia Protocol Enoxaparin Sodium 40 mg 11/12/24 09:00 11/13/24 08:28 Enoxaparin 40 Mg/0.4 Ml Syringe SUB-Q 40 mg DAILY SOURAV Administration Folic Acid 1 mg 11/06/24 09:00 11/13/24 08:28 Folic Acid 1 Mg/0.2 Ml Inj IV PUSH 1 mg QAM SOURAV Administration Glucagon 1 mg 11/06/24 07:40 Glucagon For Inj 1 Mg Vial IM PRN PRN Hypoglycemia Protocol Glucose 15 gm 11/06/24 07:40 Glucose Oral Gel 15 Gm Of Glucse In 37.5 Gm Tube PO PRN PRN Hypoglycemia Protocol Hydralazine HCl 10 mg 11/10/24 09:16 11/12/24 21:18 Hydralazine Hcl 20 Mg/Ml Vial IV PUSH 10 mg Q4HR PRN Administration Blood Pressure - High Dextrose 1,000 mls @ 100 mls/hr 11/06/24 07:40 Dextrose 5% 1,000 Ml IVPB PRN PRN Hypoglycemia Protocol Piperacillin/Tazobactam/Dextrose 3.375 gm in 50 mls @ 100 mls/hr 11/08/24 12:00 11/13/24 11:37 Zosyn 3.375 Gm/Ns 50 Ml IVPB Infused Q6H SOURAV Infusion Micafungin Sodium 100 mg/ 100 mls @ 100 mls/hr 11/11/24 09:40 11/13/24 08:28 Sodium Chloride IVPB 100 mls/hr DAILY SOURAV Administration Vancomycin HCl 1,250 mg in 250 mls @ 166.667 mls/hr 11/13/24 10:00 11/13/24 11:43 Vancomycin 1,250 Mg/Ns 250 Ml IVPB Infused Q18H SOURAV Infusion Insulin Aspart 2 - 5 units 11/08/24 12:00 11/13/24 11:47 Insulin Aspart (*Bkc) 100 Units/Ml SUB-Q Not Given Q6HR SOURAV Protocol Morphine Sulfate 2 mg 11/08/24 07:39 Morphine Sulfate (*Crx) 2 Mg/Ml Inj IV PUSH Q2H PRN Moderate Pain (4-6) Morphine Sulfate 4 mg 11/08/24 07:39 11/08/24 08:17 Morphine Sulfate (*Crx) 4 Mg/Ml Inj IV PUSH 4 mg Q2H PRN Administration Pain Rated 7-10 Naloxone HCl 0.1 mg 11/06/24 00:01 Naloxone Hcl 0.4 Mg/Ml Vial IV PUSH Q2M PRN Opiate Reversal Ondansetron HCl 4 mg 11/06/24 00:01 Ondansetron Inj 4 Mg/2 Ml Vial IV PUSH Q4H PRN Nausea And Vomiting Pantoprazole Sodium 40 mg 11/06/24 09:00 11/13/24 08:28 Pantoprazole Sodium Iv 40 Mg Vial IV PUSH 40 mg Q12HR SOURAV Administration Potassium Chloride 20 meq 11/12/24 11:25 11/13/24 08:28 Potassium Chloride 20 Meq Packet (For Liquid) FEED TUBE 20 meq DAILY SOURAV Administration Thiamine HCl 100 mg 11/06/24 09:00 11/13/24 08:28 Thiamine Hcl 200 Mg/2 Ml Vial IV PUSH 100 mg QAM SOURAV Administration Radiology Results: ITS Impressions Head CT 11/05/24 20:50 IMPRESSION: 1. Moderate nonspecific cerebral white matter disease, which likely represents chronic small vessel ischemic disease. 2. 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 Abdomen X-Ray 11/07/24 17:42 IMPRESSION: 1. Nasogastric tube tip in the stomach. 2. Fold thickening of bowel, consistent with interstitial edema versus enterocolitis. 3. Airspace opacities in the perihilar regions and lower lung zones, consistent with atelectasis versus pneumonia. Upper GI Series 11/08/24 12:17 IMPRESSION: 1. Slow gastric emptying likely related to postoperative ileus. No extraluminal leakage of contrast. Chest/Abdomen/Pelvis CT 11/10/24 10:38 IMPRESSION: 1. Small volume of ascites with mass effect on right lateral aspect of the liver, likely an exudate. 2. Small pleural effusions. 3. Wall thickening of the descending and sigmoid colon and rectum, consistent with colitis versus interstitial edema. Chest X-Ray 11/11/24 06:17 IMPRESSION: 1. Stable small pleural effusions. 2. Stable airspace opacities in the lower lung zones, consistent with atelectasis versus pneumonia. Catheter Placement CT 11/12/24 14:47 IMPRESSION: 1. Successful CT-guided right upper quadrant abdominal abscess drainage yielding yellow fluid. Modified Barium Swallow 11/13/24 12:24 IMPRESSION: 1. Laryngeal penetration. 2. Please refer to the speech therapy report for recommendations. Labs Labs: Laboratory Results - last 24 hr 11/12/24 11/12/24 11/13/24 18:49 23:42 04:57 WBC RBC Hgb Hct MCV MCH MCHC RDW Plt Count MPV Sodium Potassium Chloride Carbon Dioxide Anion Gap BUN Creatinine Estim Creat Clear Calc Estimated GFR Glucose POC Capillary Glucose 107 H 120 H Calcium Nasal MRSA (PCR) Vancomycin Trough C. difficile (PCR) Negative 11/13/24 11/13/24 11/13/24 04:59 08:08 08:11 WBC 19.3 H RBC 3.80 L Hgb 11.1 L Hct 34.9 L MCV 91.8 MCH 29.2 MCHC 31.8 L RDW 15.9 H Plt Count 342 MPV 11.1 H Sodium 152 H Potassium 3.3 L Chloride 123 H Carbon Dioxide 27 Anion Gap 2 L BUN 25 H Creatinine 0.70 Estim Creat Clear Calc 53 Estimated GFR > 60 Glucose 118 H POC Capillary Glucose 121 H Calcium 8.3 L Nasal MRSA (PCR) Vancomycin Trough < 5.0 L C. difficile (PCR) 11/13/24 11/13/24 10:19 11:27 WBC RBC Hgb Hct MCV MCH MCHC RDW Plt Count MPV Sodium Potassium Chloride Carbon Dioxide Anion Gap BUN Creatinine Estim Creat Clear Calc Estimated GFR Glucose POC Capillary Glucose 128 H Calcium Nasal MRSA (PCR) Not detected Vancomycin Trough C. difficile (PCR) Quality VTE Prophylaxis VTE prophylaxis: mechanical ordered and pharmacologic ordered
[2024-11-13 18:30] LABS: Glucose Point of Care 144 mg/dl (65-105)
[2024-11-13] MEDS: HYDROcodone/acetaminophen (*CRX) 5-325 MG TABLET 1 TAB FEED TUBE (20:27)
[2024-11-13 23:12] LABS: Glucose Point of Care 128 mg/dl (65-105)
[2024-11-14] VITALS (20 sets, daily range): BP systolic 144–173; BP diastolic 76–87; PULSE 72–94; RESP 18–26; TEMP 36.4–37.4; O2SAT 93–96
[2024-11-14] MEDS: PIPERACILLN/TAZ 3.375GM/NS50ML 3.375 GM/50 ML BAG IVPB ×4 (00:15→17:34)
[2024-11-14] MEDS: VANCOMYCIN 1,250 MG/NS 250 ML 1,250 MG/250 ML BAG 166.67 MG IVPB ×2 (04:06→22:12)
[2024-11-14] MEDS: hydrALAZINE HCL 20 MG/ML VIAL 10 MG IV PUSH (04:17)
[2024-11-14 05:17] LABS: Basophils Percent Auto 0.2 % (0.2-1.2); Eosinophils Absolute Auto 0.1 K/mm3 (0-0.3); Eosinophils Percent Auto 0.5 % (0-4.4); Hematocrit 35.2 % (42.0-52.0); Hemoglobin 11.1 g/dL (14.0-18.0); Immature Granulocyte Absolute 0.17 K/mm3 (0.00-0.031); Immature Granulocyte Percent A 0.8 % (0-0.5); Lymphocytes Percent Auto 5.9 % (18.3-44.2); Mean Corpuscular HGB Conc 31.5 g/dl (32-36); Mean Corpuscular Hemoglobin 29.2 pg (26-34); Mean Corpuscular Volume 92.6 fl (80-100); Mean Platelet Volume 11.2 fl (7.4-10.4); Neutrophils Absolute Auto 17.7 K/mm3 (1.3-6.7); Neutrophils Percent Auto 87.6 % (45.5-73.1); Platelet Count Result 410 k/mm3 (150-375); Red Cell Distribution Width 15.9 % (11.5-14.5); White Blood Count 20.2 K/mm3 (4.5-10.0)
[2024-11-14 05:28] LABS: Alanine Aminotransferase 16 U/L (6-50); Albumin Level 3.1 g/dL (3.5-5.1); Alkaline Phosphatase 147 U/L (38-126); Anion Gap 4 mmol/L (4-12); Aspartate Amino Transferase 23 U/L (17-59); Bilirubin,Total 0.7 mg/dL (0.2-1.3); Blood Urea Nitrogen 19 mg/dL (9-20); Calcium 8.2 mg/dL (8.4-10.2); Carbon Dioxide 25 mmol/L (22-30); Chloride 119 mmol/L (98-107); Estimated CRCL calculation 54 ml/min; Estimated Glomerular Filt Rate > 60; Glucose 105 mg/dL (65-110); Magnesium 2.1 mg/dL (1.6-2.3); Potassium 3.3 mmol/L (3.4-5.0); Sodium 148 mmol/L (137-145)
[2024-11-14 05:33] LABS: Glucose Point of Care 99 mg/dl (65-105)
[2024-11-14] MEDS: ACETYLCYSTEINE 20% INHAL SOLN 800 MG/4 ML VIAL 200 MG INHALATION ×2 (09:32→19:02)
[2024-11-14] MEDS: ALBUTEROL SULFATE NEB 2.5 MG/3 ML INH INHALATION (09:32)
[2024-11-14] MEDS: THIAMINE HCL 200 MG/2 ML VIAL 100 MG IV PUSH (09:38)
[2024-11-14] MEDS: ENOXAPARIN 40 MG/0.4 ML SYRINGE SUB-Q (09:38)
[2024-11-14] MEDS: FOLIC ACID 1 MG/0.2 ML INJ IV PUSH (09:38)
[2024-11-14] MEDS: PANTOPRAZOLE SODIUM IV 40 MG VIAL IV PUSH ×2 (09:38→22:12)
[2024-11-14] MEDS: amLODIPine BESYLATE 5 MG TABLET PO (09:39)
[2024-11-14] MEDS: MICAFUNGIN SODIUM 100 MG in SODIUM CHLORIDE 0.9% IV 100 ML IVPB (09:39)
[2024-11-14] MEDS: POTASSIUM CHLORIDE 20 MEQ PACKET (FOR LIQUID) 40 MEQ FEED TUBE (09:41)
[2024-11-14 12:10] LABS: Glucose Point of Care 117 mg/dl (65-105)
--- NOTE | 2024-11-14 12:46 | PM.PNGS ---
Progress Note: A&P Assessment and Plan (1) Perforated gastric ulcer: Code(s): K25.5 - Chronic or unspecified gastric ulcer with perforation Status: Acute Assessment and Plan: Increasing WBC and abdominal pain. Will back off of tube feedings and place NG back to low int suction. Continue PPI Continue Zosyn, Micafungin, Vanc Subjective Subjective Date/Time Seen: 11/14/24 12:46 Interval history: Patient having some increasing abdominal pain today, nursing also noted some bloody/serous drainage from wound. KUB obtained but no significant bowel changes. Exam GI: Other: Mostly serous fluid from pigtail drain, minimal serosanguinous fluid in HARLEY but drain also retracted some and not holding suction as well any more. Mild erythema around incision with serosanguinous drainage. Objective Data Vital Signs Vital Signs: Vital Signs - 24 hr 11/13/24 13:49 11/13/24 14:00 11/13/24 15:19 Temperature 98.1 F Pulse Rate 83 81 Respiratory Rate 20 Blood Pressure 155/80 H Pulse Oximetry 95 Oxygen Delivery Room Air Fraction of Inspired Oxygen 11/13/24 16:00 11/13/24 16:00 11/13/24 18:00 Temperature Pulse Rate 81 86 91 Respiratory Rate 20 Blood Pressure Pulse Oximetry 95 Oxygen Delivery Room Air Fraction of Inspired Oxygen 21 11/13/24 19:53 11/13/24 20:00 11/13/24 20:20 Temperature 98.6 F Pulse Rate 80 86 Respiratory Rate 26 H Blood Pressure 155/77 H Pulse Oximetry 94 Oxygen Delivery Room Air Fraction of Inspired Oxygen 11/13/24 20:35 11/13/24 20:36 11/13/24 20:46 Temperature Pulse Rate 88 85 Respiratory Rate 20 20 Blood Pressure Pulse Oximetry 91 Oxygen Delivery Room Air Fraction of Inspired Oxygen 11/13/24 22:00 11/13/24 23:18 11/14/24 00:00 Temperature 97.4 F L Pulse Rate 87 79 77 Respiratory Rate 22 H Blood Pressure 151/82 H Pulse Oximetry 96 Oxygen Delivery Fraction of Inspired Oxygen 11/14/24 00:10 11/14/24 02:00 11/14/24 04:00 Temperature 99.3 F Pulse Rate 86 85 Respiratory Rate 26 H Blood Pressure 173/87 H Pulse Oximetry 96 Oxygen Delivery Room Air Fraction of Inspired Oxygen 11/14/24 04:00 11/14/24 04:00 11/14/24 05:59 Temperature Pulse Rate 83 83 Respiratory Rate Blood Pressure Pulse Oximetry Oxygen Delivery Room Air Fraction of Inspired Oxygen 11/14/24 08:00 11/14/24 08:00 11/14/24 08:00 Temperature 98.9 F Pulse Rate 84 94 Respiratory Rate 24 H Blood Pressure 167/76 H Pulse Oximetry 95 Oxygen Delivery Room Air Fraction of Inspired Oxygen 11/14/24 09:33 11/14/24 09:41 11/14/24 10:00 Temperature Pulse Rate 91 86 85 Respiratory Rate 20 20 Blood Pressure Pulse Oximetry Oxygen Delivery Fraction of Inspired Oxygen 11/14/24 12:00 11/14/24 12:00 Temperature 98.5 F Pulse Rate 83 Respiratory Rate 24 H Blood Pressure 144/82 H Pulse Oximetry 93 Oxygen Delivery Room Air Fraction of Inspired Oxygen 21 Intake/Output Intake/Output: Intake & Output 11/11/24 11/12/24 11/13/24 11/14/24 23:59 23:59 23:59 23:59 Intake Total 1898 1200 3442 2238 Output Total 1050 2009 1315 900 Balance 848 -810 2122 1338 Meds/Results Medications: Active Medications Generic Name Dose Route Start Last Admin Trade Name Freq PRN Reason Stop Dose Admin Acetaminophen 650 mg 11/06/24 14:48 11/07/24 19:10 Acetaminophen 650 Mg Suppository RECTAL 650 mg Q4H PRN Administration Mild Pain (1-3) or Fever Acetaminophen 650 mg 11/08/24 13:37 11/13/24 10:58 Acetaminophen 325 Mg Tablet FEED TUBE 650 mg Q4H PRN Administration Headache, Fever, Mild Pain Hydrocodone Bitart/Acetaminophen 1 tab 11/08/24 13:37 11/13/24 20:27 Hydrocodone/Acetaminophen (*Crx) 5-325 Mg Tablet FEED TUBE 1 tab Q4H PRN Administration Pain Rated 4-6 Acetylcysteine 200 mg 11/09/24 20:00 11/14/24 09:32 Acetylcysteine 20% Inhal Soln 800 Mg/4 Ml Vial INHALATION 200 mg Q12HRT SOURAV Administration Albuterol 2.5 mg 11/09/24 15:38 11/14/24 09:32 Albuterol Sulfate Neb 2.5 Mg/3 Ml Inh INHALATION 2.5 mg Q12HR PRN Administration Shortness Of Breath Amlodipine Besylate 5 mg 11/11/24 09:00 11/14/24 09:39 Amlodipine Besylate 5 Mg Tablet PO 5 mg DAILY SOURAV Administration Dextrose 12.5 gm 11/06/24 07:40 Dextrose 50% 25 Gm/50 Ml Syringe IV PUSH PRN PRN Hypoglycemia Protocol Enoxaparin Sodium 40 mg 11/12/24 09:00 11/14/24 09:38 Enoxaparin 40 Mg/0.4 Ml Syringe SUB-Q 40 mg DAILY SOURAV Administration Folic Acid 1 mg 11/06/24 09:00 11/14/24 09:38 Folic Acid 1 Mg/0.2 Ml Inj IV PUSH 1 mg QAM SOURAV Administration Glucagon 1 mg 11/06/24 07:40 Glucagon For Inj 1 Mg Vial IM PRN PRN Hypoglycemia Protocol Glucose 15 gm 11/06/24 07:40 Glucose Oral Gel 15 Gm Of Glucse In 37.5 Gm Tube PO PRN PRN Hypoglycemia Protocol Hydralazine HCl 10 mg 11/10/24 09:16 11/14/24 04:17 Hydralazine Hcl 20 Mg/Ml Vial IV PUSH 10 mg Q4HR PRN Administration Blood Pressure - High Dextrose 1,000 mls @ 100 mls/hr 11/06/24 07:40 Dextrose 5% 1,000 Ml IVPB PRN PRN Hypoglycemia Protocol Piperacillin/Tazobactam/Dextrose 3.375 gm in 50 mls @ 100 mls/hr 11/08/24 12:00 11/14/24 06:14 Zosyn 3.375 Gm/Ns 50 Ml IVPB Infused Q6H SOURAV Infusion Micafungin Sodium 100 mg/ 100 mls @ 100 mls/hr 11/11/24 09:40 11/14/24 09:39 Sodium Chloride IVPB 100 mls/hr DAILY SOURAV Administration Vancomycin HCl 1,250 mg in 250 mls @ 166.667 mls/hr 11/13/24 10:00 11/14/24 05:58 Vancomycin 1,250 Mg/Ns 250 Ml IVPB Infused Q18H SOURAV Infusion Insulin Aspart 2 - 5 units 11/08/24 12:00 11/14/24 05:32 Insulin Aspart (*Bkc) 100 Units/Ml SUB-Q Not Given Q6HR SOURAV Protocol Morphine Sulfate 2 mg 11/08/24 07:39 Morphine Sulfate (*Crx) 2 Mg/Ml Inj IV PUSH Q2H PRN Moderate Pain (4-6) Morphine Sulfate 4 mg 11/08/24 07:39 11/08/24 08:17 Morphine Sulfate (*Crx) 4 Mg/Ml Inj IV PUSH 4 mg Q2H PRN Administration Pain Rated 7-10 Naloxone HCl 0.1 mg 11/06/24 00:01 Naloxone Hcl 0.4 Mg/Ml Vial IV PUSH Q2M PRN Opiate Reversal Ondansetron HCl 4 mg 11/06/24 00:01 Ondansetron Inj 4 Mg/2 Ml Vial IV PUSH Q4H PRN Nausea And Vomiting Pantoprazole Sodium 40 mg 11/06/24 09:00 11/14/24 09:38 Pantoprazole Sodium Iv 40 Mg Vial IV PUSH 40 mg Q12HR SOURAV Administration Potassium Chloride 40 meq 11/14/24 09:35 11/14/24 09:41 Potassium Chloride 20 Meq Packet (For Liquid) FEED TUBE 40 meq DAILY SOURAV Administration Thiamine HCl 100 mg 11/06/24 09:00 11/14/24 09:38 Thiamine Hcl 200 Mg/2 Ml Vial IV PUSH 100 mg QAM SOURAV Administration Radiology Results: ITS Impressions Head CT 11/05/24 20:50 IMPRESSION: 1. Moderate nonspecific cerebral white matter disease, which likely represents chronic small vessel ischemic disease. 2. 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 Upper GI Series 11/08/24 12:17 IMPRESSION: 1. Slow gastric emptying likely related to postoperative ileus. No extraluminal leakage of contrast. Chest/Abdomen/Pelvis CT 11/10/24 10:38 IMPRESSION: 1. Small volume of ascites with mass effect on right lateral aspect of the liver, likely an exudate. 2. Small pleural effusions. 3. Wall thickening of the descending and sigmoid colon and rectum, consistent with colitis versus interstitial edema. Chest X-Ray 11/11/24 06:17 IMPRESSION: 1. Stable small pleural effusions. 2. Stable airspace opacities in the lower lung zones, consistent with atelectasis versus pneumonia. Catheter Placement CT 11/12/24 14:47 IMPRESSION: 1. Successful CT-guided right upper quadrant abdominal abscess drainage yielding yellow fluid. Modified Barium Swallow 11/13/24 12:24 IMPRESSION: 1. Laryngeal penetration. 2. Please refer to the speech therapy report for recommendations. Abdomen X-Ray 11/14/24 11:13 IMPRESSION: Nonspecific, nonobstructive bowel gas pattern. Supportive devices unchanged in position. Bilateral pleural effusions. If clinical suspicion persists, CT examination of the abdomen and pelvis (with intravenous contrast) is suggested for further evaluation. Labs Labs: Laboratory Results - last 24 hr 11/13/24 11/13/24 11/14/24 18:29 23:02 04:30 WBC 20.2 H RBC 3.80 L Hgb 11.1 L Hct 35.2 L MCV 92.6 MCH 29.2 MCHC 31.5 L RDW 15.9 H Plt Count 410 H MPV 11.2 H Immature Gran % (Auto) 0.8 H Neut % (Auto) 87.6 H Lymph % (Auto) 5.9 L [place] % (Auto) 5.0 Eos % (Auto) 0.5 Baso % (Auto) 0.2 Lymph # (Auto) 1.20 [place] # (Auto) 1.0 H Eos # (Auto) 0.1 Baso # (Auto) 0.0 Abs Immat Gran (auto) 0.17 H Absolute Neuts (auto) 17.7 H Absolute Nucleated RBC 0.000 Nucleated RBC % 0.0 Sodium 148 H Potassium 3.3 L Chloride 119 H Carbon Dioxide 25 Anion Gap 4 BUN 19 Creatinine 0.70 Estim Creat Clear Calc 54 Estimated GFR > 60 Glucose 105 POC Capillary Glucose 144 H 128 H Calcium 8.2 L Magnesium 2.1 Total Bilirubin 0.7 AST 23 ALT 16 Alkaline Phosphatase 147 H Total Protein 6.0 L Albumin 3.1 L 11/14/24 11/14/24 05:19 11:27 WBC RBC Hgb Hct MCV MCH MCHC RDW Plt Count MPV Immature Gran % (Auto) Neut % (Auto) Lymph % (Auto) [place] % (Auto) Eos % (Auto) Baso % (Auto) Lymph # (Auto) [place] # (Auto) Eos # (Auto) Baso # (Auto) Abs Immat Gran (auto) Absolute Neuts (auto) Absolute Nucleated RBC Nucleated RBC % Sodium Potassium Chloride Carbon Dioxide Anion Gap BUN Creatinine Estim Creat Clear Calc Estimated GFR Glucose POC Capillary Glucose 99 117 H Calcium Magnesium Total Bilirubin AST ALT Alkaline Phosphatase Total Protein Albumin
--- NOTE | 2024-11-14 12:58 | P.PNIM_ITS ---
Progress Note: A&P Assessment and Plan (1) Metabolic acidosis: Code(s): E87.20 - Acidosis, unspecified Status: Acute (2) DEBI (acute kidney injury): Code(s): N17.9 - Acute kidney failure, unspecified Status: Acute (3) Perforated gastric ulcer: Code(s): K25.5 - Chronic or unspecified gastric ulcer with perforation Status: Acute (4) COPD (chronic obstructive pulmonary disease): Code(s): J44.9 - Chronic obstructive pulmonary disease, unspecified Status: Acute (5) Sepsis: Code(s): A41.9 - Sepsis, unspecified organism Status: Acute (6) Pneumonia: Code(s): J18.9 - Pneumonia, unspecified organism Status: Acute (7) Acute hypoxic respiratory failure: Code(s): J96.01 - Acute respiratory failure with hypoxia Status: Acute (8) Sepsis associated hypotension: Code(s): A41.9 - Sepsis, unspecified organism; I95.9 - Hypotension, unspecified Status: Acute (9) EtOH dependence: Code(s): F10.20 - Alcohol dependence, uncomplicated Status: Acute Plan Acute hypoxic respiratory failure, resolved Acute Respiratory failure secondary to sepsis, perforated gastric ulcer, general anaesthesia resolved extubated now on room air Sepsis, unspecified organism Sepsis secondary to right lower lobe pneumonia which is likely aspiration, perforated gastric ulcer and peritonitis Continue Micafungin, Zosyn and Vancomycin Management of perforated gastric ulcer as below Still has low-grade fever, mild leukocytosis, blood culture has no growth so far plan ir to place drain and to continue present iv abx Zosyn, Vancomycin and Micafungin Pneumonia: CT scan shows right lower lobe pneumonia which is likely aspiration. Continue Zosyn Diarrhea Likely from tube feeding transition to PO intake today, stop tube feeding monitor EtOH dependence: Thiamine and folic acid ordered COPD Not in exacerbation Bronchodilators ordered Perforated gastric ulcer: Chronic or unspecified gastric ulcer with perforation Status post exploratory laparotomy, extensive lysis of adhesions, intra- abdominal washout, repair of perforated gastric ulcer with omental patch HARLEY drain placed Dressing on the surgical incision Patient is on Zosyn, Vancomycin and Micafungin DEBI resolved now DEBI likely secondary to sepsis hypotension, fluid shift and hypovolemia Patient received fluid resuscitation and also 25% albumin CT scan does not show any hydronephrosis or obstruction Monitor urine output electrolytes and creatinine Patient has a hypokalemia, creat is stable post iv fluids 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 with potassium chloride 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 Metabolic acidosis Resolved off sodium bicarbonate DVT prophylaxis on Sq lovenox PT/OT Subjective Date/time seen: 11/14/24 12:58 Interval history: Comfortable at bedside, tolerating po intake tube feeding discontinued Patient still having diarrhea likely from tube feeding Review of Systems Review of Systems: Pt with a dry throat not talking loudly with ng tube in situ on tube feeds looks weak and tired ROS unobtainable: Yes unobtainable due to endotracheal tube, unobtainable due to medical condition and unobtainable due to mental status Exam Narrative: General: , lethargic, chronically unwell thin and disheveled with ng tube in situ Lungs/Chest: Trachea central Coarse BS B/L, No crackles or wheezing. Cardiac: RRR. Normal S1 S2. No murmurs Abdomen: Decreased but present bowel sounds. HARLEY drain in place. Soft. Tender to palpation as patient grimaces on exam. NG tube in place Extremities: No clubbing, cyanosis or edema. Warm : Shen in place Neurologic: Patient is able to move all 4 extremities spontaneously. Objective Data Vital Signs Vital Signs: Vital Signs - 24 hr 11/13/24 13:49 11/13/24 14:00 11/13/24 15:19 Temperature 98.1 F Pulse Rate 83 81 Respiratory Rate 20 Blood Pressure 155/80 H Pulse Oximetry 95 Oxygen Delivery Room Air Fraction of Inspired Oxygen 11/13/24 16:00 11/13/24 16:00 11/13/24 18:00 Temperature Pulse Rate 81 86 91 Respiratory Rate 20 Blood Pressure Pulse Oximetry 95 Oxygen Delivery Room Air Fraction of Inspired Oxygen 21 11/13/24 19:53 11/13/24 20:00 11/13/24 20:20 Temperature 98.6 F Pulse Rate 80 86 Respiratory Rate 26 H Blood Pressure 155/77 H Pulse Oximetry 94 Oxygen Delivery Room Air Fraction of Inspired Oxygen 11/13/24 20:35 11/13/24 20:36 11/13/24 20:46 Temperature Pulse Rate 88 85 Respiratory Rate 20 20 Blood Pressure Pulse Oximetry 91 Oxygen Delivery Room Air Fraction of Inspired Oxygen 11/13/24 22:00 11/13/24 23:18 11/14/24 00:00 Temperature 97.4 F L Pulse Rate 87 79 77 Respiratory Rate 22 H Blood Pressure 151/82 H Pulse Oximetry 96 Oxygen Delivery Fraction of Inspired Oxygen 11/14/24 00:10 11/14/24 02:00 11/14/24 04:00 Temperature 99.3 F Pulse Rate 86 85 Respiratory Rate 26 H Blood Pressure 173/87 H Pulse Oximetry 96 Oxygen Delivery Room Air Fraction of Inspired Oxygen 11/14/24 04:00 11/14/24 04:00 11/14/24 05:59 Temperature Pulse Rate 83 83 Respiratory Rate Blood Pressure Pulse Oximetry Oxygen Delivery Room Air Fraction of Inspired Oxygen 11/14/24 08:00 11/14/24 08:00 11/14/24 08:00 Temperature 98.9 F Pulse Rate 84 94 Respiratory Rate 24 H Blood Pressure 167/76 H Pulse Oximetry 95 Oxygen Delivery Room Air Fraction of Inspired Oxygen 11/14/24 09:33 11/14/24 09:41 11/14/24 10:00 Temperature Pulse Rate 91 86 85 Respiratory Rate 20 20 Blood Pressure Pulse Oximetry Oxygen Delivery Fraction of Inspired Oxygen 11/14/24 12:00 11/14/24 12:00 11/14/24 12:00 Temperature 98.5 F Pulse Rate 83 80 Respiratory Rate 24 H Blood Pressure 144/82 H Pulse Oximetry 93 Oxygen Delivery Room Air Fraction of Inspired Oxygen 21 Intake/Output Intake/Output: Intake & Output 11/11/24 11/12/24 11/13/24 11/14/24 23:59 23:59 23:59 23:59 Intake Total 1898 1200 3442 2238 Output Total 1050 2010 1315 900 Balance 848 -810 2124 1338 Meds/Results Medications: Active Medications Generic Name Dose Route Start Last Admin Trade Name Freq PRN Reason Stop Dose Admin Acetaminophen 650 mg 11/06/24 14:48 11/07/24 19:10 Acetaminophen 650 Mg Suppository RECTAL 650 mg Q4H PRN Administration Mild Pain (1-3) or Fever Acetaminophen 650 mg 11/08/24 13:37 11/13/24 10:58 Acetaminophen 325 Mg Tablet FEED TUBE 650 mg Q4H PRN Administration Headache, Fever, Mild Pain Hydrocodone Bitart/Acetaminophen 1 tab 11/08/24 13:37 11/13/24 20:27 Hydrocodone/Acetaminophen (*Crx) 5-325 Mg Tablet FEED TUBE 1 tab Q4H PRN Administration Pain Rated 4-6 Acetylcysteine 200 mg 11/09/24 20:00 11/14/24 09:32 Acetylcysteine 20% Inhal Soln 800 Mg/4 Ml Vial INHALATION 200 mg Q12HRT SOURAV Administration Albuterol 2.5 mg 11/09/24 15:38 11/14/24 09:32 Albuterol Sulfate Neb 2.5 Mg/3 Ml Inh INHALATION 2.5 mg Q12HR PRN Administration Shortness Of Breath Amlodipine Besylate 5 mg 11/11/24 09:00 11/14/24 09:39 Amlodipine Besylate 5 Mg Tablet PO 5 mg DAILY SOURAV Administration Dextrose 12.5 gm 11/06/24 07:40 Dextrose 50% 25 Gm/50 Ml Syringe IV PUSH PRN PRN Hypoglycemia Protocol Enoxaparin Sodium 40 mg 11/12/24 09:00 11/14/24 09:38 Enoxaparin 40 Mg/0.4 Ml Syringe SUB-Q 40 mg DAILY SOURAV Administration Folic Acid 1 mg 11/06/24 09:00 11/14/24 09:38 Folic Acid 1 Mg/0.2 Ml Inj IV PUSH 1 mg QAM SOURAV Administration Glucagon 1 mg 11/06/24 07:40 Glucagon For Inj 1 Mg Vial IM PRN PRN Hypoglycemia Protocol Glucose 15 gm 11/06/24 07:40 Glucose Oral Gel 15 Gm Of Glucse In 37.5 Gm Tube PO PRN PRN Hypoglycemia Protocol Hydralazine HCl 10 mg 11/10/24 09:16 11/14/24 04:17 Hydralazine Hcl 20 Mg/Ml Vial IV PUSH 10 mg Q4HR PRN Administration Blood Pressure - High Dextrose 1,000 mls @ 100 mls/hr 11/06/24 07:40 Dextrose 5% 1,000 Ml IVPB PRN PRN Hypoglycemia Protocol Piperacillin/Tazobactam/Dextrose 3.375 gm in 50 mls @ 100 mls/hr 11/08/24 12:00 11/14/24 06:14 Zosyn 3.375 Gm/Ns 50 Ml IVPB Infused Q6H SOURAV Infusion Micafungin Sodium 100 mg/ 100 mls @ 100 mls/hr 11/11/24 09:40 11/14/24 09:39 Sodium Chloride IVPB 100 mls/hr DAILY SOURAV Administration Vancomycin HCl 1,250 mg in 250 mls @ 166.667 mls/hr 11/13/24 10:00 11/14/24 05:58 Vancomycin 1,250 Mg/Ns 250 Ml IVPB Infused Q18H SOURAV Infusion Insulin Aspart 2 - 5 units 11/08/24 12:00 11/14/24 05:32 Insulin Aspart (*Bkc) 100 Units/Ml SUB-Q Not Given Q6HR [facility] Protocol Morphine Sulfate 2 mg 11/08/24 07:39 Morphine Sulfate (*Crx) 2 Mg/Ml Inj IV PUSH Q2H PRN Moderate Pain (4-6) Morphine Sulfate 4 mg 11/08/24 07:39 11/08/24 08:17 Morphine Sulfate (*Crx) 4 Mg/Ml Inj IV PUSH 4 mg Q2H PRN Administration Pain Rated 7-10 Naloxone HCl 0.1 mg 11/06/24 00:01 Naloxone Hcl 0.4 Mg/Ml Vial IV PUSH Q2M PRN Opiate Reversal Ondansetron HCl 4 mg 11/06/24 00:01 Ondansetron Inj 4 Mg/2 Ml Vial IV PUSH Q4H PRN Nausea And Vomiting Pantoprazole Sodium 40 mg 11/06/24 09:00 11/14/24 09:38 Pantoprazole Sodium Iv 40 Mg Vial IV PUSH 40 mg Q12HR SOURAV Administration Potassium Chloride 40 meq 11/14/24 09:35 11/14/24 09:41 Potassium Chloride 20 Meq Packet (For Liquid) FEED TUBE 40 meq DAILY SOURAV Administration Thiamine HCl 100 mg 11/06/24 09:00 11/14/24 09:38 Thiamine Hcl 200 Mg/2 Ml Vial IV PUSH 100 mg QAM SOURAV Administration Radiology Results: ITS Impressions Head CT 11/05/24 20:50 IMPRESSION: 1. Moderate nonspecific cerebral white matter disease, which likely represents chronic small vessel ischemic disease. 2. 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 Upper GI Series 11/08/24 12:17 IMPRESSION: 1. Slow gastric emptying likely related to postoperative ileus. No extraluminal leakage of contrast. Chest/Abdomen/Pelvis CT 11/10/24 10:38 IMPRESSION: 1. Small volume of ascites with mass effect on right lateral aspect of the liver, likely an exudate. 2. Small pleural effusions. 3. Wall thickening of the descending and sigmoid colon and rectum, consistent with colitis versus interstitial edema. Chest X-Ray 11/11/24 06:17 IMPRESSION: 1. Stable small pleural effusions. 2. Stable airspace opacities in the lower lung zones, consistent with atelectasis versus pneumonia. Catheter Placement CT 11/12/24 14:47 IMPRESSION: 1. Successful CT-guided right upper quadrant abdominal abscess drainage yielding yellow fluid. Modified Barium Swallow 11/13/24 12:24 IMPRESSION: 1. Laryngeal penetration. 2. Please refer to the speech therapy report for recommendations. Abdomen X-Ray 11/14/24 11:13 IMPRESSION: Nonspecific, nonobstructive bowel gas pattern. Supportive devices unchanged in position. Bilateral pleural effusions. If clinical suspicion persists, CT examination of the abdomen and pelvis (with intravenous contrast) is suggested for further evaluation. Labs Labs: Laboratory Results - last 24 hr 11/13/24 11/13/24 11/14/24 18:29 23:02 04:30 WBC 20.2 H RBC 3.80 L Hgb 11.1 L Hct 35.2 L MCV 92.6 MCH 29.2 MCHC 31.5 L RDW 15.9 H Plt Count 410 H MPV 11.2 H Immature Gran % (Auto) 0.8 H Neut % (Auto) 87.6 H Lymph % (Auto) 5.9 L [place] % (Auto) 5.0 Eos % (Auto) 0.5 Baso % (Auto) 0.2 Lymph # (Auto) 1.20 [place] # (Auto) 1.0 H Eos # (Auto) 0.1 Baso # (Auto) 0.0 Abs Immat Gran (auto) 0.17 H Absolute Neuts (auto) 17.7 H Absolute Nucleated RBC 0.000 Nucleated RBC % 0.0 Sodium 148 H Potassium 3.3 L Chloride 119 H Carbon Dioxide 25 Anion Gap 4 BUN 19 Creatinine 0.70 Estim Creat Clear Calc 54 Estimated GFR > 60 Glucose 105 POC Capillary Glucose 144 H 128 H Calcium 8.2 L Magnesium 2.1 Total Bilirubin 0.7 AST 23 ALT 16 Alkaline Phosphatase 147 H Total Protein 6.0 L Albumin 3.1 L 11/14/24 11/14/24 05:19 11:27 WBC RBC Hgb Hct MCV MCH MCHC RDW Plt Count MPV Immature Gran % (Auto) Neut % (Auto) Lymph % (Auto) [place] % (Auto) Eos % (Auto) Baso % (Auto) Lymph # (Auto) [place] # (Auto) Eos # (Auto) Baso # (Auto) Abs Immat Gran (auto) Absolute Neuts (auto) Absolute Nucleated RBC Nucleated RBC % Sodium Potassium Chloride Carbon Dioxide Anion Gap BUN Creatinine Estim Creat Clear Calc Estimated GFR Glucose POC Capillary Glucose 99 117 H Calcium Magnesium Total Bilirubin AST ALT Alkaline Phosphatase Total Protein Albumin Quality VTE Prophylaxis VTE prophylaxis: mechanical ordered and pharmacologic ordered
[2024-11-14] MEDS: DEXTROSE 5% 1,000 ML 1,000 ML 75 ML IV CONT (16:40)
[2024-11-14 18:42] LABS: Glucose Point of Care 106 mg/dl (65-105)
[2024-11-15] VITALS (11 sets, daily range): BP systolic 122–175; BP diastolic 82–97; PULSE 71–82; RESP 16–24; TEMP 36.5–37.3; O2SAT 91–100
[2024-11-15 05:09] LABS: Basophils Absolute Auto 0.1 K/mm3 (0.0-0.1); Basophils Percent Auto 0.3 % (0.2-1.2); Eosinophils Absolute Auto 0.1 K/mm3 (0-0.3); Eosinophils Percent Auto 0.3 % (0-4.4); Hematocrit 34.4 % (42.0-52.0); Immature Granulocyte Absolute 0.21 K/mm3 (0.00-0.031); Immature Granulocyte Percent A 1.2 % (0-0.5); Lymphocytes Absolute Auto 1.34 K/mm3 (0.9-3.2); Lymphocytes Percent Auto 7.6 % (18.3-44.2); Mean Corpuscular Hemoglobin 29.2 pg (26-34); Mean Corpuscular Volume 91.2 fl (80-100); Mean Platelet Volume 10.8 fl (7.4-10.4); Monocytes Absolute Auto 1.1 K/mm3 (0.1-0.6); Monocytes Percent Auto 6.3 % (2.6-8.5); Neutrophils Absolute Auto 14.8 K/mm3 (1.3-6.7); Neutrophils Percent Auto 84.3 % (45.5-73.1); Platelet Count Result 492 k/mm3 (150-375); Red Blood Count 3.77 M/mm3 (4.6-6.20); Red Cell Distribution Width 15.6 % (11.5-14.5); White Blood Count 17.5 K/mm3 (4.5-10.0)
[2024-11-15 05:26] LABS: Alanine Aminotransferase 14 U/L (6-50); Albumin Level 2.8 g/dL (3.5-5.1); Alkaline Phosphatase 113 U/L (38-126); Anion Gap 2 mmol/L (4-12); Aspartate Amino Transferase 23 U/L (17-59); Bilirubin,Total 0.8 mg/dL (0.2-1.3); Blood Urea Nitrogen 15 mg/dL (9-20); Calcium 8.2 mg/dL (8.4-10.2); Carbon Dioxide 24 mmol/L (22-30); Chloride 118 mmol/L (98-107); Estimated CRCL calculation 55 ml/min; Estimated Glomerular Filt Rate > 60; Glucose 106 mg/dL (65-110); Magnesium 1.9 mg/dL (1.6-2.3); Potassium 3.2 mmol/L (3.4-5.0); Sodium 144 mmol/L (137-145)
[2024-11-15] MEDS: DEXTROSE 5% 1,000 ML 1,000 ML 75 ML IV CONT (07:56)
[2024-11-15] MEDS: ALBUTEROL SULFATE NEB 2.5 MG/3 ML INH INHALATION (08:00)
[2024-11-15] MEDS: ACETYLCYSTEINE 20% INHAL SOLN 800 MG/4 ML VIAL 200 MG INHALATION (08:09)
[2024-11-15] MEDS: PIPERACILLN/TAZ 3.375GM/NS50ML 3.375 GM/50 ML BAG IVPB ×3 (08:45→18:21)
[2024-11-15] MEDS: MICAFUNGIN SODIUM 100 MG in SODIUM CHLORIDE 0.9% IV 100 ML IVPB (08:46)
[2024-11-15] MEDS: THIAMINE HCL 200 MG/2 ML VIAL 100 MG IV PUSH (08:51)
[2024-11-15] MEDS: FOLIC ACID 1 MG/0.2 ML INJ IV PUSH (08:52)
[2024-11-15] MEDS: PANTOPRAZOLE SODIUM IV 40 MG VIAL IV PUSH ×2 (08:52→21:15)
[2024-11-15] MEDS: ENOXAPARIN 40 MG/0.4 ML SYRINGE SUB-Q (08:52)
--- NOTE | 2024-11-15 12:06 | PCNFU ---
Nutrition Follow-Up Complete: Alerted GI function as related to perforated gastric ulcer as evidenced by NPO. Goal:Meet estimated nutritional needs. Pt not meeting goal, current NPO and without tube feeds at this time. Pt current nutrition is NPO. Nutrition recommendation: NPO at this time per hospitalist Last recorded weight is 45.6 kg. Bowel Motility: +BM 11/14 Labs Reviewed: Hgb:11, HCt:34, K:3.2 Meds Noted: protonix, insulin Skin: WNL Additional Notes: Pt is currently NPO. Was not tolerating tube feeding, nursing reported 500+ residuals. Passed MBS and was trialed on a diet yesterday, experienced bowel distention and pain so pt was made NPO. GI to follow. Will monitor. Will monitor weight, labs, skin, diet orders, meds. Follow up in 3 days.
[2024-11-15 12:11] LABS: Glucose Point of Care 100 mg/dl (65-105)
--- NOTE | 2024-11-15 13:30 | PC.NURSE ---
This patient, Rupert Lemos, was received from [id number] on 11/15/24 at 1330. Patient/family oriented to unit policies and routines
--- NOTE | 2024-11-15 13:43 | P.PNGS_ITS ---
Progress Note: A&P Assessment and Plan (1) Perforated gastric ulcer: Code(s): K25.5 - Chronic or unspecified gastric ulcer with perforation Status: Acute Assessment and Plan: better, WBC decreased, will clamp NG and try sips of clears Subjective Subjective Date/Time Seen: 11/15/24 13:43 Interval history: much more alert, hungry, would like to try diet, reports pain resolved Review of Systems Review of Systems: All systems reviewed & are unremarkable except as noted in HPI and below Exam Const: General: cooperative, comfortable and no acute distress Resp: Auscultation: diminished lung sounds Cardio: Rate: regular rate Rhythm: regular rhythm GI: Inspection: normal to inspection, non-distended and incision GI Palp: Yes abdominal tenderness and Yes Soft to palpation Other: incision C/D/I, HARLEY and drain c minimal serous output Objective Data Vital Signs Vital Signs: Vital Signs - 24 hr 11/14/24 14:00 11/14/24 16:00 11/14/24 16:00 Temperature 36.4 C L Pulse Rate 80 77 Respiratory Rate 24 H Blood Pressure 150/76 H Pulse Oximetry 93 Oxygen Delivery Room Air 11/14/24 16:00 11/14/24 18:00 11/14/24 19:04 Temperature Pulse Rate 72 76 76 Respiratory Rate 18 Blood Pressure Pulse Oximetry Oxygen Delivery 11/14/24 19:09 11/14/24 19:54 11/14/24 20:00 Temperature Pulse Rate 75 75 75 Respiratory Rate 18 18 Blood Pressure Pulse Oximetry 93 Oxygen Delivery Room Air 11/14/24 20:24 11/14/24 21:52 11/14/24 23:10 Temperature 36.4 C Pulse Rate 76 76 78 Respiratory Rate 24 H 24 H Blood Pressure 152/81 H Pulse Oximetry 96 96 Oxygen Delivery Room Air 11/14/24 23:12 11/15/24 00:18 11/15/24 02:00 Temperature 36.5 C Pulse Rate 78 76 78 Respiratory Rate 24 H Blood Pressure 163/82 H Pulse Oximetry 95 Oxygen Delivery 11/15/24 03:50 11/15/24 03:52 11/15/24 03:58 Temperature 36.6 C Pulse Rate 76 76 82 Respiratory Rate 24 H 24 H Blood Pressure 175/93 H Pulse Oximetry 95 93 Oxygen Delivery Room Air 11/15/24 08:00 11/15/24 08:00 11/15/24 08:00 Temperature 36.9 C Pulse Rate 78 74 73 Respiratory Rate 16 18 Blood Pressure 150/83 H Pulse Oximetry 95 91 Oxygen Delivery Room Air 11/15/24 08:00 11/15/24 09:10 11/15/24 09:57 Temperature Pulse Rate 71 72 77 Respiratory Rate 18 18 Blood Pressure Pulse Oximetry Oxygen Delivery 11/15/24 11:58 Temperature 36.7 C Pulse Rate 82 Respiratory Rate 18 Blood Pressure 159/82 H Pulse Oximetry 100 Oxygen Delivery Intake/Output Intake/Output: Intake & Output 11/12/24 11/13/24 11/14/24 11/15/24 23:59 23:59 23:59 23:59 Intake Total 1200 3442 2288 1200 Output Total 2009 1317 1935 1500 Balance -810 2127 353 -300 Meds/Results Medications: Active Medications Generic Name Dose Route Start Last Admin Trade Name Freq PRN Reason Stop Dose Admin Acetaminophen 650 mg 11/06/24 14:48 11/07/24 19:10 Acetaminophen 650 Mg Suppository RECTAL 650 mg Q4H PRN Administration Mild Pain (1-3) or Fever Acetaminophen 650 mg 11/14/24 15:21 Acetaminophen Elixir 325 Mg/10.15 Ml Udc FEED TUBE Q4H PRN Headache, Fever, Mild Pain Hydrocodone Bitart/Acetaminophen 1 tab 11/08/24 13:37 11/13/24 20:27 Hydrocodone/Acetaminophen (*Crx) 5-325 Mg Tablet FEED TUBE 1 tab Q4H PRN Administration Pain Rated 4-6 Acetylcysteine 200 mg 11/09/24 20:00 11/15/24 08:09 Acetylcysteine 20% Inhal Soln 800 Mg/4 Ml Vial INHALATION 200 mg Q12HRT SOURAV Administration Albuterol 2.5 mg 11/09/24 15:38 11/15/24 08:00 Albuterol Sulfate Neb 2.5 Mg/3 Ml Inh INHALATION 2.5 mg Q12HR PRN Administration Shortness Of Breath Amlodipine Besylate 5 mg 11/11/24 09:00 11/15/24 07:57 Amlodipine Besylate 5 Mg Tablet PO Not Given DAILY SOURAV Dextrose 12.5 gm 11/06/24 07:40 Dextrose 50% 25 Gm/50 Ml Syringe IV PUSH PRN PRN Hypoglycemia Protocol Enoxaparin Sodium 40 mg 11/12/24 09:00 11/15/24 08:52 Enoxaparin 40 Mg/0.4 Ml Syringe SUB-Q 40 mg DAILY SOURAV Administration Folic Acid 1 mg 11/06/24 09:00 11/15/24 08:52 Folic Acid 1 Mg/0.2 Ml Inj IV PUSH 1 mg QAM SOURAV Administration Glucagon 1 mg 11/06/24 07:40 Glucagon For Inj 1 Mg Vial IM PRN PRN Hypoglycemia Protocol Glucose 15 gm 11/06/24 07:40 Glucose Oral Gel 15 Gm Of Glucse In 37.5 Gm Tube PO PRN PRN Hypoglycemia Protocol Hydralazine HCl 10 mg 11/10/24 09:16 11/14/24 04:17 Hydralazine Hcl 20 Mg/Ml Vial IV PUSH 10 mg Q4HR PRN Administration Blood Pressure - High Dextrose 1,000 mls @ 100 mls/hr 11/06/24 07:40 Dextrose 5% 1,000 Ml IVPB PRN PRN Hypoglycemia Protocol Piperacillin/Tazobactam/Dextrose 3.375 gm in 50 mls @ 100 mls/hr 11/08/24 12:00 11/15/24 12:28 Zosyn 3.375 Gm/Ns 50 Ml IVPB 100 mls/hr Q6H SOURAV Administration Micafungin Sodium 100 mg/ 100 mls @ 100 mls/hr 11/11/24 09:40 11/15/24 08:46 Sodium Chloride IVPB 11/24/24 09:59 100 mls/hr DAILY SOURAV Administration Vancomycin HCl 1,250 mg in 250 mls @ 166.667 mls/hr 11/13/24 10:00 11/14/24 22:12 Vancomycin 1,250 Mg/Ns 250 Ml IVPB 166.67 mls/hr Q18H [facility]V Administration Dextrose 1,000 mls @ 75 mls/hr 11/14/24 15:20 11/15/24 07:56 Dextrose 5% 1,000 Ml IV CONT 75 mls/hr .[id number] SOURAV Administration Potassium Chloride 40 meq/ 520 mls @ 130 mls/hr 11/15/24 12:07 Sodium Chloride IVPB 11/15/24 16:06 ONCE ONE Insulin Aspart 2 - 5 units 11/08/24 12:00 11/15/24 12:06 Insulin Aspart (*Bkc) 100 Units/Ml SUB-Q Not Given Q6HR [facility] Protocol Morphine Sulfate 2 mg 11/08/24 07:39 Morphine Sulfate (*Crx) 2 Mg/Ml Inj IV PUSH Q2H PRN Moderate Pain (4-6) Morphine Sulfate 4 mg 11/08/24 07:39 11/08/24 08:17 Morphine Sulfate (*Crx) 4 Mg/Ml Inj IV PUSH 4 mg Q2H PRN Administration Pain Rated 7-10 Naloxone HCl 0.1 mg 11/06/24 00:01 Naloxone Hcl 0.4 Mg/Ml Vial IV PUSH Q2M PRN Opiate Reversal Ondansetron HCl 4 mg 11/06/24 00:01 Ondansetron Inj 4 Mg/2 Ml Vial IV PUSH Q4H PRN Nausea And Vomiting Pantoprazole Sodium 40 mg 11/06/24 09:00 11/15/24 08:52 Pantoprazole Sodium Iv 40 Mg Vial IV PUSH 40 mg Q12HR SOURAV Administration Thiamine HCl 100 mg 11/06/24 09:00 11/15/24 08:51 Thiamine Hcl 200 Mg/2 Ml Vial IV PUSH 100 mg QAM SOURAV Administration Radiology Results: ITS Impressions Head CT 11/05/24 20:50 IMPRESSION: 1. Moderate nonspecific cerebral white matter disease, which likely represents chronic small vessel ischemic disease. 2. 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 Upper GI Series 11/08/24 12:17 IMPRESSION: 1. Slow gastric emptying likely related to postoperative ileus. No extraluminal leakage of contrast. Chest/Abdomen/Pelvis CT 11/10/24 10:38 IMPRESSION: 1. Small volume of ascites with mass effect on right lateral aspect of the liver, likely an exudate. 2. Small pleural effusions. 3. Wall thickening of the descending and sigmoid colon and rectum, consistent with colitis versus interstitial edema. Chest X-Ray 11/11/24 06:17 IMPRESSION: 1. Stable small pleural effusions. 2. Stable airspace opacities in the lower lung zones, consistent with atelectasis versus pneumonia. Catheter Placement CT 11/12/24 14:47 IMPRESSION: 1. Successful CT-guided right upper quadrant abdominal abscess drainage yielding yellow fluid. Modified Barium Swallow 11/13/24 12:24 IMPRESSION: 1. Laryngeal penetration. 2. Please refer to the speech therapy report for recommendations. Abdomen X-Ray 11/14/24 11:13 IMPRESSION: Nonspecific, nonobstructive bowel gas pattern. Supportive devices unchanged in position. Bilateral pleural effusions. If clinical suspicion persists, CT examination of the abdomen and pelvis (with intravenous contrast) is suggested for further evaluation. Labs Labs: Laboratory Results - last 24 hr 11/14/24 11/15/24 11/15/24 18:39 04:49 12:03 WBC 17.5 H RBC 3.77 L Hgb 11.0 L Hct 34.4 L MCV 91.2 MCH 29.2 MCHC 32.0 RDW 15.6 H Plt Count 492 H MPV 10.8 H Immature Gran % (Auto) 1.2 H Neut % (Auto) 84.3 H Lymph % (Auto) 7.6 L [place] % (Auto) 6.3 Eos % (Auto) 0.3 Baso % (Auto) 0.3 Lymph # (Auto) 1.34 [place] # (Auto) 1.1 H Eos # (Auto) 0.1 Baso # (Auto) 0.1 Abs Immat Gran (auto) 0.21 H Absolute Neuts (auto) 14.8 H Absolute Nucleated RBC 0.000 Nucleated RBC % 0.0 Sodium 144 Potassium 3.2 L Chloride 118 H Carbon Dioxide 24 Anion Gap 2 L BUN 15 Creatinine 0.70 Estim Creat Clear Calc 55 Estimated GFR > 60 Glucose 106 POC Capillary Glucose 106 H 100 Calcium 8.2 L Magnesium 1.9 Total Bilirubin 0.8 AST 23 ALT 14 Alkaline Phosphatase 113 Total Protein 6.0 L Albumin 2.8 L
[2024-11-15] MEDS: POTASSIUM CHLORIDE INJ 40 MEQ in SODIUM CHLORIDE 0.9% IV 500 ML 130 MEQ IVPB (15:22)
[2024-11-15 16:25] LABS: Vancomycin Trough 9.5 ug/mL (10.0-20.0)
--- NOTE | 2024-11-15 18:02 | PC.NURSE ---
RN spoke with pharmacist regarding pts Potassium running and pt having a vancomyocin that is delayed Pharmacist informed RN that she can run Zosyn first and then van. Pharmacist informed RN that potassium, dex 5% and vanc are all compatible.
[2024-11-15 18:42] LABS: Glucose Point of Care 106 mg/dl (65-105)
[2024-11-15] MEDS: VANCOMYCIN 1,250 MG/NS 250 ML 1,250 MG/250 ML BAG 166 MG IVPB (21:18)
[2024-11-15] MEDS: MORPHINE SULFATE (*CRX) 4 MG/ML INJ IV PUSH (21:20)
[2024-11-16] VITALS (11 sets, daily range): BP systolic 128–143; BP diastolic 68–76; PULSE 69–88; RESP 14–20; TEMP 36.6–37.1; O2SAT 87–95
[2024-11-16] MEDS: PIPERACILLN/TAZ 3.375GM/NS50ML 3.375 GM/50 ML BAG IVPB ×5 (00:11→23:50)
[2024-11-16 00:19] LABS: Glucose Point of Care 98 mg/dl (65-105)
[2024-11-16] MEDS: MORPHINE SULFATE (*CRX) 4 MG/ML INJ IV PUSH (02:32)
[2024-11-16] MEDS: DEXTROSE 5% 1,000 ML 1,000 ML 75 ML IV CONT (02:33)
[2024-11-16 05:53] LABS: Glucose Point of Care 108 mg/dl (65-105)
[2024-11-16] MEDS: VANCOMYCIN 1,250 MG/NS 250 ML 1,250 MG/250 ML BAG 166 MG IVPB ×2 (06:07→17:43)
[2024-11-16 07:24] LABS: Estimated CRCL calculation 42 ml/min; Estimated Glomerular Filt Rate > 60
--- NOTE | 2024-11-16 07:58 | P.PNIM_ITS ---
Progress Note: A&P Assessment and Plan (1) Metabolic acidosis: Code(s): E87.20 - Acidosis, unspecified Status: Acute (2) DEBI (acute kidney injury): Code(s): N17.9 - Acute kidney failure, unspecified Status: Acute (3) Perforated gastric ulcer: Code(s): K25.5 - Chronic or unspecified gastric ulcer with perforation Status: Acute (4) COPD (chronic obstructive pulmonary disease): Code(s): J44.9 - Chronic obstructive pulmonary disease, unspecified Status: Acute (5) Sepsis: Code(s): A41.9 - Sepsis, unspecified organism Status: Acute (6) Pneumonia: Code(s): J18.9 - Pneumonia, unspecified organism Status: Acute (7) Acute hypoxic respiratory failure: Code(s): J96.01 - Acute respiratory failure with hypoxia Status: Acute (8) Sepsis associated hypotension: Code(s): A41.9 - Sepsis, unspecified organism; I95.9 - Hypotension, unspecified Status: Acute (9) EtOH dependence: Code(s): F10.20 - Alcohol dependence, uncomplicated Status: Acute Plan Acute hypoxic respiratory failure, resolved Acute Respiratory failure secondary to sepsis, perforated gastric ulcer, general anaesthesia resolved extubated now on room air Sepsis, unspecified organism Sepsis secondary to right lower lobe pneumonia which is likely aspiration, perforated gastric ulcer and peritonitis Continue Micafungin, Zosyn and Vancomycin Management of perforated gastric ulcer as below Still has low-grade fever, mild leukocytosis, blood culture has no growth so far plan ir to place drain and to continue present iv abx Zosyn, Vancomycin and Micafungin Pneumonia: CT scan shows right lower lobe pneumonia which is likely aspiration. Continue Zosyn Diarrhea, improving Likely from tube feeding continue NPO and intermittent suction per Gen surgery monitor EtOH dependence: Thiamine and folic acid ordered COPD Not in exacerbation Bronchodilators ordered Perforated gastric ulcer: Chronic or unspecified gastric ulcer with perforation Status post exploratory laparotomy, extensive lysis of adhesions, intra- abdominal washout, repair of perforated gastric ulcer with omental patch HARLEY drain placed Dressing on the surgical incision Patient is on Zosyn, Vancomycin and Micafungin continue NPO and intermittent suction per Gen surgery DEBI resolved now DEBI likely secondary to sepsis hypotension, fluid shift and hypovolemia Patient received fluid resuscitation and also 25% albumin CT scan does not show any hydronephrosis or obstruction Monitor urine output electrolytes and creatinine Patient has a hypokalemia, creat is stable post iv fluids Replete with potassium chloride Consult infection control specialist Metabolic acidosis Resolved off sodium bicarbonate DVT prophylaxis on Sq lovenox PT/OT Subjective Date/time seen: 11/15/24 07:58 dATE OF SERVICE IS 11/15/24 Interval history: Comfortable at bedside and NPO continue intermittent suction per Gen surgery Review of Systems Review of Systems: Pt with a dry throat not talking loudly with ng tube in situ on tube feeds looks weak and tired ROS unobtainable: Yes unobtainable due to endotracheal tube, unobtainable due to medical condition and unobtainable due to mental status Exam Narrative: General: , lethargic, chronically unwell thin and disheveled with ng tube in situ Lungs/Chest: Trachea central Coarse BS B/L, No crackles or wheezing. Cardiac: RRR. Normal S1 S2. No murmurs Abdomen: Decreased but present bowel sounds. HARLEY drain in place. Soft. Tender to palpation as patient grimaces on exam. NG tube in place Extremities: No clubbing, cyanosis or edema. Warm : Shen in place Neurologic: Patient is able to move all 4 extremities spontaneously. Objective Data Vital Signs Vital Signs: Vital Signs - 24 hr 11/15/24 08:00 11/15/24 08:00 11/15/24 08:00 Temperature 98.5 F Pulse Rate 78 74 73 Respiratory Rate 16 18 Blood Pressure 150/83 H Pulse Oximetry 95 91 Oxygen Delivery Room Air 11/15/24 08:00 11/15/24 09:10 11/15/24 09:57 Temperature Pulse Rate 71 72 77 Respiratory Rate 18 18 Blood Pressure Pulse Oximetry Oxygen Delivery 11/15/24 11:58 11/15/24 13:45 11/15/24 20:00 Temperature 98.1 F 98.5 F Pulse Rate 82 80 Respiratory Rate 18 18 Blood Pressure 159/82 H 144/83 H Pulse Oximetry 100 96 Oxygen Delivery Room Air 11/15/24 22:00 11/16/24 05:52 Temperature 99.2 F 98 F Pulse Rate 81 69 Respiratory Rate 18 18 Blood Pressure 122/97 H 128/76 Pulse Oximetry 93 91 Oxygen Delivery Intake/Output Intake/Output: Intake & Output 11/13/24 11/14/24 11/15/24/27/24 23:59 23:59 23:59 23:59 Intake Total 3442 0428 2201.2 797.6 Output Total 1315 6875 1500 Balance 2127 353 701.2 797.6 Meds/Results Medications: Active Medications Generic Name Dose Route Start Last Admin Trade Name Freq PRN Reason Stop Dose Admin Acetaminophen 650 mg 11/06/24 14:48 11/07/24 19:10 Acetaminophen 650 Mg Suppository RECTAL 650 mg Q4H PRN Administration Mild Pain (1-3) or Fever Acetaminophen 650 mg 11/14/24 15:21 Acetaminophen Elixir 325 Mg/10.15 Ml Udc FEED TUBE Q4H PRN Headache, Fever, Mild Pain Hydrocodone Bitart/Acetaminophen 1 tab 11/08/24 13:37 11/13/24 20:27 Hydrocodone/Acetaminophen (*Crx) 5-325 Mg Tablet FEED TUBE 1 tab Q4H PRN Administration Pain Rated 4-6 Acetylcysteine 200 mg 11/09/24 20:00 11/15/24 22:29 Acetylcysteine 20% Inhal Soln 800 Mg/4 Ml Vial INHALATION Not Given Q12HRT SOURAV Albuterol 2.5 mg 11/09/24 15:38 11/15/24 08:00 Albuterol Sulfate Neb 2.5 Mg/3 Ml Inh INHALATION 2.5 mg Q12HR PRN Administration Shortness Of Breath Amlodipine Besylate 5 mg 11/11/24 09:00 11/15/24 07:57 Amlodipine Besylate 5 Mg Tablet PO Not Given DAILY SOURAV Dextrose 12.5 gm 11/06/24 07:40 Dextrose 50% 25 Gm/50 Ml Syringe IV PUSH PRN PRN Hypoglycemia Protocol Enoxaparin Sodium 40 mg 11/12/24 09:00 11/15/24 08:52 Enoxaparin 40 Mg/0.4 Ml Syringe SUB-Q 40 mg DAILY SOURAV Administration Folic Acid 1 mg 11/06/24 09:00 11/15/24 08:52 Folic Acid 1 Mg/0.2 Ml Inj IV PUSH 1 mg QAM SOURAV Administration Glucagon 1 mg 11/06/24 07:40 Glucagon For Inj 1 Mg Vial IM PRN PRN Hypoglycemia Protocol Glucose 15 gm 11/06/24 07:40 Glucose Oral Gel 15 Gm Of Glucse In 37.5 Gm Tube PO PRN PRN Hypoglycemia Protocol Hydralazine HCl 10 mg 11/10/24 09:16 11/14/24 04:17 Hydralazine Hcl 20 Mg/Ml Vial IV PUSH 10 mg Q4HR PRN Administration Blood Pressure - High Dextrose 1,000 mls @ 100 mls/hr 11/06/24 07:40 Dextrose 5% 1,000 Ml IVPB PRN PRN Hypoglycemia Protocol Piperacillin/Tazobactam/Dextrose 3.375 gm in 50 mls @ 100 mls/hr 11/08/24 12:00 11/16/24 06:11 Zosyn 3.375 Gm/Ns 50 Ml IVPB Infused Q6H SOURAV Infusion Micafungin Sodium 100 mg/ 100 mls @ 100 mls/hr 11/11/24 09:40 11/15/24 09:46 Sodium Chloride IVPB 11/24/24 09:59 Infused DAILY SOURAV Infusion Dextrose 1,000 mls @ 75 mls/hr 11/14/24 15:20 11/16/24 05:40 Dextrose 5% 1,000 Ml IV CONT 0 mls/hr .[id number] SOURAV Infusion Vancomycin HCl 1,250 mg in 250 mls @ 166.667 mls/hr 11/15/24 19:00 11/16/24 06:11 Vancomycin 1,250 Mg/Ns 250 Ml IVPB 166 mls/hr Q12H SOURAV Infusion Insulin Aspart 2 - 5 units 11/08/24 12:00 11/16/24 05:41 Insulin Aspart (*Bkc) 100 Units/Ml SUB-Q Not Given Q6HR [facility] Protocol Morphine Sulfate 2 mg 11/08/24 07:39 Morphine Sulfate (*Crx) 2 Mg/Ml Inj IV PUSH Q2H PRN Moderate Pain (4-6) Morphine Sulfate 4 mg 11/08/24 07:39 11/16/24 02:32 Morphine Sulfate (*Crx) 4 Mg/Ml Inj IV PUSH 4 mg Q2H PRN Administration Pain Rated 7-10 Naloxone HCl 0.1 mg 11/06/24 00:01 Naloxone Hcl 0.4 Mg/Ml Vial IV PUSH Q2M PRN Opiate Reversal Ondansetron HCl 4 mg 11/06/24 00:01 Ondansetron Inj 4 Mg/2 Ml Vial IV PUSH Q4H PRN Nausea And Vomiting Pantoprazole Sodium 40 mg 11/06/24 09:00 11/15/24 21:15 Pantoprazole Sodium Iv 40 Mg Vial IV PUSH 40 mg Q12HR SOURAV Administration Thiamine HCl 100 mg 11/06/24 09:00 11/15/24 08:51 Thiamine Hcl 200 Mg/2 Ml Vial IV PUSH 100 mg QAM SOURAV Administration Radiology Results: ITS Impressions Head CT 11/05/24 20:50 IMPRESSION: 1. Moderate nonspecific cerebral white matter disease, which likely represents chronic small vessel ischemic disease. 2. 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 Upper GI Series 11/08/24 12:17 IMPRESSION: 1. Slow gastric emptying likely related to postoperative ileus. No extraluminal leakage of contrast. Chest/Abdomen/Pelvis CT 11/10/24 10:38 IMPRESSION: 1. Small volume of ascites with mass effect on right lateral aspect of the liver, likely an exudate. 2. Small pleural effusions. 3. Wall thickening of the descending and sigmoid colon and rectum, consistent with colitis versus interstitial edema. Chest X-Ray 11/11/24 06:17 IMPRESSION: 1. Stable small pleural effusions. 2. Stable airspace opacities in the lower lung zones, consistent with atelectasis versus pneumonia. Catheter Placement CT 11/12/24 14:47 IMPRESSION: 1. Successful CT-guided right upper quadrant abdominal abscess drainage yielding yellow fluid. Modified Barium Swallow 11/13/24 12:24 IMPRESSION: 1. Laryngeal penetration. 2. Please refer to the speech therapy report for recommendations. Abdomen X-Ray 11/14/24 11:13 IMPRESSION: Nonspecific, nonobstructive bowel gas pattern. Supportive devices unchanged in position. Bilateral pleural effusions. If clinical suspicion persists, CT examination of the abdomen and pelvis (with intravenous contrast) is suggested for further evaluation. Labs Labs: Laboratory Results - last 24 hr 11/15/24 11/15/24 11/15/24 12:03 15:02 18:38 Creatinine Estim Creat Clear Calc Estimated GFR POC Capillary Glucose 100 106 H Vancomycin Trough 9.5 L 11/16/24 11/16/24 11/16/24 00:05 05:41 07:04 Creatinine 0.90 Estim Creat Clear Calc 42 Estimated GFR > 60 POC Capillary Glucose 98 108 H Vancomycin Trough Quality VTE Prophylaxis VTE prophylaxis: mechanical ordered and pharmacologic ordered
[2024-11-16] MEDS: THIAMINE HCL 200 MG/2 ML VIAL 100 MG IV PUSH (08:08)
[2024-11-16] MEDS: PANTOPRAZOLE SODIUM IV 40 MG VIAL IV PUSH ×2 (08:08→21:03)
[2024-11-16] MEDS: ENOXAPARIN 40 MG/0.4 ML SYRINGE SUB-Q (08:09)
[2024-11-16] MEDS: amLODIPine BESYLATE 5 MG TABLET PO (08:09)
[2024-11-16] MEDS: MICAFUNGIN SODIUM 100 MG in SODIUM CHLORIDE 0.9% IV 100 ML IVPB (08:40)
[2024-11-16] MEDS: FOLIC ACID 1 MG/0.2 ML INJ IV PUSH (08:41)
--- NOTE | 2024-11-16 09:24 | PC.NURSE ---
ST notified per telephone of NG tube removal and thickened liquids ordered. Requested diet recommendations.
[2024-11-16] MEDS: ACETYLCYSTEINE 20% INHAL SOLN 800 MG/4 ML VIAL 200 MG INHALATION ×2 (10:25→20:26)
[2024-11-16] MEDS: ALBUTEROL SULFATE NEB 2.5 MG/3 ML INH INHALATION ×2 (10:25→20:28)
--- NOTE | 2024-11-16 11:45 | P.PNGS_ITS ---
Progress Note: A&P Assessment and Plan (1) Perforated gastric ulcer: Code(s): K25.5 - Chronic or unspecified gastric ulcer with perforation Status: Acute Assessment and Plan: clinically improving, cont abx and PPI, ADAT per swallow recs, PT/OT, ?rehab Subjective Subjective Date/Time Seen: 11/16/24 11:45 Interval history: feels better, driss clears, no pain Review of Systems Review of Systems: All systems reviewed & are unremarkable except as noted in HPI and below Exam Const: General: cooperative, comfortable, no acute distress and ill appearing Resp: Auscultation: diminished lung sounds Cardio: Rate: regular rate Rhythm: regular rhythm GI: Inspection: normal to inspection, non-distended and incision GI Palp: No abdominal tenderness and Yes Soft to palpation Other: incision c some mild redness and serous drainage, HARLEY and perc drain c mod serous drainage Objective Data Vital Signs Vital Signs: Vital Signs - 24 hr 11/15/24 11:58 11/15/24 13:45 11/15/24 20:00 Temperature 36.7 C 36.9 C Pulse Rate 82 80 Respiratory Rate 18 18 Blood Pressure 159/82 H 144/83 H Pulse Oximetry 100 96 Oxygen Delivery Room Air 11/15/24 22:00 11/16/24 05:52 11/16/24 08:00 Temperature 37.3 C 36.6 C Pulse Rate 81 69 Respiratory Rate 18 18 Blood Pressure 122/97 H 128/76 Pulse Oximetry 93 91 Oxygen Delivery Room Air 11/16/24 10:21 11/16/24 10:26 11/16/24 10:40 Temperature Pulse Rate 84 88 Respiratory Rate 18 18 Blood Pressure Pulse Oximetry 93 Oxygen Delivery Room Air Intake/Output Intake/Output: Intake & Output 11/13/24 11/14/24 11/15/24 11/16/24 23:59 23:59 23:59 23:59 Intake Total 3442 2288 2201.2 1147.6 Output Total 1315 1935 1500 Balance 2127 353 701.2 1147.6 Meds/Results Medications: Active Medications Generic Name Dose Route Start Last Admin Trade Name Freq PRN Reason Stop Dose Admin Acetaminophen 650 mg 11/06/24 14:48 11/07/24 19:10 Acetaminophen 650 Mg Suppository RECTAL 650 mg Q4H PRN Administration Mild Pain (1-3) or Fever Acetaminophen 650 mg 11/14/24 15:21 Acetaminophen Elixir 325 Mg/10.15 Ml Udc FEED TUBE Q4H PRN Headache, Fever, Mild Pain Hydrocodone Bitart/Acetaminophen 1 tab 11/08/24 13:37 11/13/24 20:27 Hydrocodone/Acetaminophen (*Crx) 5-325 Mg Tablet FEED TUBE 1 tab Q4H PRN Administration Pain Rated 4-6 Acetylcysteine 200 mg 11/09/24 20:00 11/16/24 10:25 Acetylcysteine 20% Inhal Soln 800 Mg/4 Ml Vial INHALATION 200 mg Q12HRT SOURAV Administration Albuterol 2.5 mg 11/09/24 15:38 11/16/24 10:25 Albuterol Sulfate Neb 2.5 Mg/3 Ml Inh INHALATION 2.5 mg Q12HR PRN Administration Shortness Of Breath Amlodipine Besylate 5 mg 11/11/24 09:00 11/16/24 08:09 Amlodipine Besylate 5 Mg Tablet PO 5 mg DAILY SOURAV Administration Dextrose 12.5 gm 11/06/24 07:40 Dextrose 50% 25 Gm/50 Ml Syringe IV PUSH PRN PRN Hypoglycemia Protocol Enoxaparin Sodium 40 mg 11/12/24 09:00 11/16/24 08:09 Enoxaparin 40 Mg/0.4 Ml Syringe SUB-Q 40 mg DAILY SOURAV Administration Folic Acid 1 mg 11/06/24 09:00 11/16/24 08:41 Folic Acid 1 Mg/0.2 Ml Inj IV PUSH 1 mg QAM SOURAV Administration Glucagon 1 mg 11/06/24 07:40 Glucagon For Inj 1 Mg Vial IM PRN PRN Hypoglycemia Protocol Glucose 15 gm 11/06/24 07:40 Glucose Oral Gel 15 Gm Of Glucse In 37.5 Gm Tube PO PRN PRN Hypoglycemia Protocol Hydralazine HCl 10 mg 11/10/24 09:16 11/14/24 04:17 Hydralazine Hcl 20 Mg/Ml Vial IV PUSH 10 mg Q4HR PRN Administration Blood Pressure - High Dextrose 1,000 mls @ 100 mls/hr 11/06/24 07:40 Dextrose 5% 1,000 Ml IVPB PRN PRN Hypoglycemia Protocol Piperacillin/Tazobactam/Dextrose 3.375 gm in 50 mls @ 100 mls/hr 11/08/24 12:00 11/16/24 06:11 Zosyn 3.375 Gm/Ns 50 Ml IVPB Infused Q6H SOURAV Infusion Micafungin Sodium 100 mg/ 100 mls @ 100 mls/hr 11/11/24 09:40 11/16/24 09:40 Sodium Chloride IVPB 11/24/24 09:59 Infused DAILY SOURAV Infusion Dextrose 1,000 mls @ 75 mls/hr 11/14/24 15:20 11/16/24 05:40 Dextrose 5% 1,000 Ml IV CONT 0 mls/hr .[id number] SOURAV Infusion Vancomycin HCl 1,250 mg in 250 mls @ 166.667 mls/hr 11/15/24 19:00 11/16/24 07:42 Vancomycin 1,250 Mg/Ns 250 Ml IVPB Infused Q12H S[facility]V Infusion Insulin Aspart 2 - 5 units 11/08/24 12:00 11/16/24 05:41 Insulin Aspart (*Bkc) 100 Units/Ml SUB-Q Not Given Q6HR [facility] Protocol Morphine Sulfate 2 mg 11/08/24 07:39 Morphine Sulfate (*Crx) 2 Mg/Ml Inj IV PUSH Q2H PRN Moderate Pain (4-6) Morphine Sulfate 4 mg 11/08/24 07:39 11/16/24 02:32 Morphine Sulfate (*Crx) 4 Mg/Ml Inj IV PUSH 4 mg Q2H PRN Administration Pain Rated 7-10 Naloxone HCl 0.1 mg 11/06/24 00:01 Naloxone Hcl 0.4 Mg/Ml Vial IV PUSH Q2M PRN Opiate Reversal Ondansetron HCl 4 mg 11/06/24 00:01 Ondansetron Inj 4 Mg/2 Ml Vial IV PUSH Q4H PRN Nausea And Vomiting Pantoprazole Sodium 40 mg 11/06/24 09:00 11/16/24 08:08 Pantoprazole Sodium Iv 40 Mg Vial IV PUSH 40 mg Q12HR SOURAV Administration Thiamine HCl 100 mg 11/06/24 09:00 11/16/24 08:08 Thiamine Hcl 200 Mg/2 Ml Vial IV PUSH 100 mg QAM SOURAV Administration Radiology Results: ITS Impressions Head CT 11/05/24 20:50 IMPRESSION: 1. Moderate nonspecific cerebral white matter disease, which likely represents chronic small vessel ischemic disease. 2. 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 Upper GI Series 11/08/24 12:17 IMPRESSION: 1. Slow gastric emptying likely related to postoperative ileus. No extraluminal leakage of contrast. Chest/Abdomen/Pelvis CT 11/10/24 10:38 IMPRESSION: 1. Small volume of ascites with mass effect on right lateral aspect of the liver, likely an exudate. 2. Small pleural effusions. 3. Wall thickening of the descending and sigmoid colon and rectum, consistent with colitis versus interstitial edema. Chest X-Ray 11/11/24 06:17 IMPRESSION: 1. Stable small pleural effusions. 2. Stable airspace opacities in the lower lung zones, consistent with atelectasis versus pneumonia. Catheter Placement CT 11/12/24 14:47 IMPRESSION: 1. Successful CT-guided right upper quadrant abdominal abscess drainage yielding yellow fluid. Modified Barium Swallow 11/13/24 12:24 IMPRESSION: 1. Laryngeal penetration. 2. Please refer to the speech therapy report for recommendations. Abdomen X-Ray 11/14/24 11:13 IMPRESSION: Nonspecific, nonobstructive bowel gas pattern. Supportive devices unchanged in position. Bilateral pleural effusions. If clinical suspicion persists, CT examination of the abdomen and pelvis (with intravenous contrast) is suggested for further evaluation. Labs Labs: Laboratory Results - last 24 hr 11/15/24 11/15/24 11/15/24 12:03 15:02 18:38 Creatinine Estim Creat Clear Calc Estimated GFR POC Capillary Glucose 100 106 H Vancomycin Trough 9.5 L 11/16/24 11/16/24 11/16/24 00:05 05:41 07:04 Creatinine 0.90 Estim Creat Clear Calc 42 Estimated GFR > 60 POC Capillary Glucose 98 108 H Vancomycin Trough
[2024-11-16 11:52] LABS: Glucose Point of Care 128 mg/dl (65-105)
--- NOTE | 2024-11-16 13:05 | PM.IMPN ---
Progress Note: A&P Assessment and Plan (1) Metabolic acidosis: Code(s): E87.20 - Acidosis, unspecified Status: Acute (2) DEBI (acute kidney injury): Code(s): N17.9 - Acute kidney failure, unspecified Status: Acute (3) Perforated gastric ulcer: Code(s): K25.5 - Chronic or unspecified gastric ulcer with perforation Status: Acute (4) COPD (chronic obstructive pulmonary disease): Code(s): J44.9 - Chronic obstructive pulmonary disease, unspecified Status: Acute (5) Sepsis: Code(s): A41.9 - Sepsis, unspecified organism Status: Acute (6) Pneumonia: Code(s): J18.9 - Pneumonia, unspecified organism Status: Acute (7) Acute hypoxic respiratory failure: Code(s): J96.01 - Acute respiratory failure with hypoxia Status: Acute (8) Sepsis associated hypotension: Code(s): A41.9 - Sepsis, unspecified organism; I95.9 - Hypotension, unspecified Status: Acute (9) EtOH dependence: Code(s): F10.20 - Alcohol dependence, uncomplicated Status: Acute Plan Acute hypoxic respiratory failure, resolved Acute Respiratory failure secondary to sepsis, perforated gastric ulcer, general anaesthesia resolved extubated now on room air Sepsis, unspecified organism Sepsis secondary to right lower lobe pneumonia which is likely aspiration, perforated gastric ulcer and peritonitis Continue Micafungin, Zosyn and Vancomycin Management of perforated gastric ulcer as below Still has low-grade fever, mild leukocytosis, blood culture has no growth so far plan ir to place drain and to continue present iv abx Zosyn, Vancomycin and Micafungin Pneumonia: CT scan shows right lower lobe pneumonia which is likely aspiration. Continue Zosyn Diarrhea, improving Likely from tube feeding advance diet per surgery monitor EtOH dependence: Thiamine and folic acid ordered COPD Not in exacerbation Bronchodilators ordered Perforated gastric ulcer: Chronic or unspecified gastric ulcer with perforation Status post exploratory laparotomy, extensive lysis of adhesions, intra-abdominal washout, repair of perforated gastric ulcer with omental patch HARLEY drain placed Dressing on the surgical incision Patient is on Zosyn, Vancomycin and Micafungin Advance diet per surgery DEBI resolved now DEBI likely secondary to sepsis hypotension, fluid shift and hypovolemia Patient received fluid resuscitation and also 25% albumin CT scan does not show any hydronephrosis or obstruction Monitor urine output electrolytes and creatinine Patient has a hypokalemia, creat is stable post iv fluids Replete with potassium chloride Consult compounding assistant Metabolic acidosis Resolved off sodium bicarbonate DVT prophylaxis on Sq lovenox PT/OT Subjective Date/time seen: 11/16/24 13:05 Interval history: Advance diet per Gen surgery otherwise comfortable at bedside Review of Systems Review of Systems: Pt with a dry throat not talking loudly with ng tube in situ on tube feeds looks weak and tired ROS unobtainable: Yes unobtainable due to endotracheal tube, unobtainable due to medical condition and unobtainable due to mental status Exam Narrative: General: , lethargic, chronically unwell thin and disheveled with ng tube in situ Lungs/Chest: Trachea central Coarse BS B/L, No crackles or wheezing. Cardiac: RRR. Normal S1 S2. No murmurs Abdomen: Decreased but present bowel sounds. HARLEY drain in place. Soft. Tender to palpation as patient grimaces on exam. NG tube in place Extremities: No clubbing, cyanosis or edema. Warm : Shen in place Neurologic: Patient is able to move all 4 extremities spontaneously. Objective Data Vital Signs Vital Signs: Vital Signs - 24 hr 11/15/24 13:45 11/15/24 20:00 11/15/24 22:00 Temperature 98.5 F 99.2 F Pulse Rate 80 81 Respiratory Rate 18 18 Blood Pressure 144/83 H 122/97 H Pulse Oximetry 96 93 Oxygen Delivery Room Air 11/16/24 05:52 11/16/24 08:00 11/16/24 10:21 Temperature 98 F Pulse Rate 69 Respiratory Rate 18 Blood Pressure 128/76 Pulse Oximetry 91 93 Oxygen Delivery Room Air Room Air 11/16/24 10:26 11/16/24 10:40 Temperature Pulse Rate 84 88 Respiratory Rate 18 18 Blood Pressure Pulse Oximetry Oxygen Delivery Intake/Output Intake/Output: Intake & Output 11/13/24 11/14/24 11/15/24 11/16/24 23:59 23:59 23:59 23:59 Intake Total 3442 2288 2201.2 1147.6 Output Total 1315 1935 1500 Balance 2127 353 701.2 1147.6 Meds/Results Medications: Active Medications Generic Name Dose Route Start Last Admin Trade Name Freq PRN Reason Stop Dose Admin Acetaminophen 650 mg 11/06/24 14:48 11/07/24 19:10 Acetaminophen 650 Mg Suppository RECTAL 650 mg Q4H PRN Administration Mild Pain (1-3) or Fever Acetaminophen 650 mg 11/14/24 15:21 Acetaminophen Elixir 325 Mg/10.15 Ml Udc FEED TUBE Q4H PRN Headache, Fever, Mild Pain Hydrocodone Bitart/Acetaminophen 1 tab 11/08/24 13:37 11/13/24 20:27 Hydrocodone/Acetaminophen (*Crx) 5-325 Mg Tablet FEED TUBE 1 tab Q4H PRN Administration Pain Rated 4-6 Acetylcysteine 200 mg 11/09/24 20:00 11/16/24 10:25 Acetylcysteine 20% Inhal Soln 800 Mg/4 Ml Vial INHALATION 200 mg Q12HRT SOURAV Administration Albuterol 2.5 mg 11/09/24 15:38 11/16/24 10:25 Albuterol Sulfate Neb 2.5 Mg/3 Ml Inh INHALATION 2.5 mg Q12HR PRN Administration Shortness Of Breath Amlodipine Besylate 5 mg 11/11/24 09:00 11/16/24 08:09 Amlodipine Besylate 5 Mg Tablet PO 5 mg DAILY SOURAV Administration Dextrose 12.5 gm 11/06/24 07:40 Dextrose 50% 25 Gm/50 Ml Syringe IV PUSH PRN PRN Hypoglycemia Protocol Enoxaparin Sodium 40 mg 11/12/24 09:00 11/16/24 08:09 Enoxaparin 40 Mg/0.4 Ml Syringe SUB-Q 40 mg DAILY SOURAV Administration Folic Acid 1 mg 11/06/24 09:00 11/16/24 08:41 Folic Acid 1 Mg/0.2 Ml Inj IV PUSH 1 mg QAM SOURAV Administration Glucagon 1 mg 11/06/24 07:40 Glucagon For Inj 1 Mg Vial IM PRN PRN Hypoglycemia Protocol Glucose 15 gm 11/06/24 07:40 Glucose Oral Gel 15 Gm Of Glucse In 37.5 Gm Tube PO PRN PRN Hypoglycemia Protocol Hydralazine HCl 10 mg 11/10/24 09:16 11/14/24 04:17 Hydralazine Hcl 20 Mg/Ml Vial IV PUSH 10 mg Q4HR PRN Administration Blood Pressure - High Dextrose 1,000 mls @ 100 mls/hr 11/06/24 07:40 Dextrose 5% 1,000 Ml IVPB PRN PRN Hypoglycemia Protocol Piperacillin/Tazobactam/Dextrose 3.375 gm in 50 mls @ 100 mls/hr 11/08/24 12:00 11/16/24 12:37 Zosyn 3.375 Gm/Ns 50 Ml IVPB 100 mls/hr Q6H S[facility]V Administration Micafungin Sodium 100 mg/ 100 mls @ 100 mls/hr 11/11/24 09:40 11/16/24 09:40 Sodium Chloride IVPB 11/24/24 09:59 Infused DAILY SOURAV Infusion Dextrose 1,000 mls @ 75 mls/hr 11/14/24 15:20 11/16/24 05:40 Dextrose 5% 1,000 Ml IV CONT 0 mls/hr .[id number] S[facility]V Infusion Vancomycin HCl 1,250 mg in 250 mls @ 166.667 mls/hr 11/15/24 19:00 11/16/24 07:42 Vancomycin 1,250 Mg/Ns 250 Ml IVPB Infused Q12H [facility] Infusion Insulin Aspart 2 - 5 units 11/08/24 12:00 11/16/24 05:41 Insulin Aspart (*Bkc) 100 Units/Ml SUB-Q Not Given Q6HR [facility] Protocol Morphine Sulfate 2 mg 11/08/24 07:39 Morphine Sulfate (*Crx) 2 Mg/Ml Inj IV PUSH Q2H PRN Moderate Pain (4-6) Morphine Sulfate 4 mg 11/08/24 07:39 11/16/24 02:32 Morphine Sulfate (*Crx) 4 Mg/Ml Inj IV PUSH 4 mg Q2H PRN Administration Pain Rated 7-10 Naloxone HCl 0.1 mg 11/06/24 00:01 Naloxone Hcl 0.4 Mg/Ml Vial IV PUSH Q2M PRN Opiate Reversal Ondansetron HCl 4 mg 11/06/24 00:01 Ondansetron Inj 4 Mg/2 Ml Vial IV PUSH Q4H PRN Nausea And Vomiting Pantoprazole Sodium 40 mg 11/06/24 09:00 11/16/24 08:08 Pantoprazole Sodium Iv 40 Mg Vial IV PUSH 40 mg Q12HR SOURAV Administration Thiamine HCl 100 mg 11/06/24 09:00 11/16/24 08:08 Thiamine Hcl 200 Mg/2 Ml Vial IV PUSH 100 mg QAM SOURAV Administration Radiology Results: ITS Impressions Head CT 11/05/24 20:50 IMPRESSION: 1. Moderate nonspecific cerebral white matter disease, which likely represents chronic small vessel ischemic disease. 2. 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 Upper GI Series 11/08/24 12:17 IMPRESSION: 1. Slow gastric emptying likely related to postoperative ileus. No extraluminal leakage of contrast. Chest/Abdomen/Pelvis CT 11/10/24 10:38 IMPRESSION: 1. Small volume of ascites with mass effect on right lateral aspect of the liver, likely an exudate. 2. Small pleural effusions. 3. Wall thickening of the descending and sigmoid colon and rectum, consistent with colitis versus interstitial edema. Chest X-Ray 11/11/24 06:17 IMPRESSION: 1. Stable small pleural effusions. 2. Stable airspace opacities in the lower lung zones, consistent with atelectasis versus pneumonia. Catheter Placement CT 11/12/24 14:47 IMPRESSION: 1. Successful CT-guided right upper quadrant abdominal abscess drainage yielding yellow fluid. Modified Barium Swallow 11/13/24 12:24 IMPRESSION: 1. Laryngeal penetration. 2. Please refer to the speech therapy report for recommendations. Abdomen X-Ray 11/14/24 11:13 IMPRESSION: Nonspecific, nonobstructive bowel gas pattern. Supportive devices unchanged in position. Bilateral pleural effusions. If clinical suspicion persists, CT examination of the abdomen and pelvis (with intravenous contrast) is suggested for further evaluation. Labs Labs: Laboratory Results - last 24 hr 11/15/24 11/15/24 11/16/24 15:02 18:38 00:05 Creatinine Estim Creat Clear Calc Estimated GFR POC Capillary Glucose 106 H 98 Vancomycin Trough 9.5 L 11/16/24 11/16/24 11/16/24 05:41 07:04 11:46 Creatinine 0.90 Estim Creat Clear Calc 42 Estimated GFR > 60 POC Capillary Glucose 108 H 128 H Vancomycin Trough Quality VTE Prophylaxis VTE prophylaxis: mechanical ordered and pharmacologic ordered
[2024-11-16 16:36] LABS: Glucose Point of Care 147 mg/dl (65-105)
[2024-11-16 20:30] LABS: Glucose Point of Care 139 mg/dl (65-105)
[2024-11-17] VITALS (9 sets, daily range): BP systolic 140–166; BP diastolic 70–73; PULSE 72–85; RESP 14–20; TEMP 37.2–37.6; O2SAT 90–95
[2024-11-17] MEDS: DEXTROSE 5% 1,000 ML 1,000 ML 75 ML IV CONT ×2 (00:50→20:01)
[2024-11-17] MEDS: PIPERACILLN/TAZ 3.375GM/NS50ML 3.375 GM/50 ML BAG IVPB ×3 (05:04→17:09)
[2024-11-17 06:49] LABS: Basophils Absolute Auto 0.1 K/mm3 (0.0-0.1); Basophils Percent Auto 0.3 % (0.2-1.2); Eosinophils Absolute Auto 0.1 K/mm3 (0-0.3); Eosinophils Percent Auto 0.3 % (0-4.4); Hematocrit 30.5 % (42.0-52.0); Hemoglobin 9.9 g/dL (14.0-18.0); Immature Granulocyte Absolute 0.13 K/mm3 (0.00-0.031); Immature Granulocyte Percent A 0.8 % (0-0.5); Lymphocytes Absolute Auto 1.31 K/mm3 (0.9-3.2); Lymphocytes Percent Auto 8.1 % (18.3-44.2); Mean Corpuscular HGB Conc 32.5 g/dl (32-36); Mean Corpuscular Hemoglobin 29.9 pg (26-34); Mean Corpuscular Volume 92.1 fl (80-100); Mean Platelet Volume 10.7 fl (7.4-10.4); Monocytes Absolute Auto 1.2 K/mm3 (0.1-0.6); Monocytes Percent Auto 7.5 % (2.6-8.5); Neutrophils Absolute Auto 13.3 K/mm3 (1.3-6.7); Platelet Count Result 661 k/mm3 (150-375); Red Blood Count 3.31 M/mm3 (4.6-6.20); Red Cell Distribution Width 15.2 % (11.5-14.5); White Blood Count 16.1 K/mm3 (4.5-10.0)
[2024-11-17 07:04] LABS: Alanine Aminotransferase 12 U/L (6-50); Albumin Level 2.5 g/dL (3.5-5.1); Alkaline Phosphatase 128 U/L (38-126); Anion Gap 3 mmol/L (4-12); Aspartate Amino Transferase 23 U/L (17-59); Bilirubin,Total 0.6 mg/dL (0.2-1.3); Blood Urea Nitrogen 8 mg/dL (9-20); Calcium 7.8 mg/dL (8.4-10.2); Carbon Dioxide 26 mmol/L (22-30); Chloride 113 mmol/L (98-107); Estimated CRCL calculation 43 ml/min; Estimated Glomerular Filt Rate > 60; Glucose 84 mg/dL (65-110); Potassium 2.9 mmol/L (3.4-5.0); Sodium 142 mmol/L (137-145)
[2024-11-17 07:15] LABS: Vancomycin Trough 17.6 ug/mL (10.0-20.0)
[2024-11-17 07:44] LABS: Glucose Point of Care 109 mg/dl (65-105)
[2024-11-17] MEDS: VANCOMYCIN 1,250 MG/NS 250 ML 1,250 MG/250 ML BAG 166 MG IVPB ×2 (07:46→18:01)
[2024-11-17] MEDS: amLODIPine BESYLATE 5 MG TABLET PO (08:39)
[2024-11-17] MEDS: MICAFUNGIN SODIUM 100 MG in SODIUM CHLORIDE 0.9% IV 100 ML IVPB (08:39)
[2024-11-17] MEDS: PANTOPRAZOLE SODIUM IV 40 MG VIAL IV PUSH ×2 (08:40→20:01)
[2024-11-17] MEDS: ENOXAPARIN 40 MG/0.4 ML SYRINGE SUB-Q (08:40)
[2024-11-17] MEDS: THIAMINE HCL 200 MG/2 ML VIAL 100 MG IV PUSH (08:40)
[2024-11-17] MEDS: FOLIC ACID 1 MG/0.2 ML INJ IV PUSH (08:40)
[2024-11-17] MEDS: MORPHINE SULFATE (*CRX) 4 MG/ML INJ IV PUSH (08:42)
[2024-11-17] MEDS: ACETYLCYSTEINE 20% INHAL SOLN 800 MG/4 ML VIAL 200 MG INHALATION ×2 (08:48→19:29)
[2024-11-17] MEDS: ALBUTEROL SULFATE NEB 2.5 MG/3 ML INH INHALATION ×2 (08:48→20:08)
[2024-11-17] MEDS: POTASSIUM CHLORIDE 20 MEQ ER TABLET 40 MEQ PO (11:26)
[2024-11-17] MEDS: POTASSIUM CHLORIDE INJ 40 MEQ in SODIUM CHLORIDE 0.9% IV 500 ML 130 MEQ IVPB (11:56)
[2024-11-17 12:03] LABS: Glucose Point of Care 128 mg/dl (65-105)
--- NOTE | 2024-11-17 15:38 | PM.PNGS ---
Progress Note: A&P Assessment and Plan (1) Perforated gastric ulcer: Qualifiers: Gastric ulcer chronicity: acute Qualified Code(s): K25.1 - Acute gastric ulcer with perforation Code(s): K25.5 - Chronic or unspecified gastric ulcer with perforation Status: Acute Assessment and Plan: Closed with omental patch 12 days ago. Patient with multiple medical problems and very malnourished. Improving slowly. Very little coming out of either drain. Making slow progress. Continue the Zosyn, micafungin, and vancomycin for now. Subjective Subjective Date/Time Seen: 11/17/24 15:38 Post Op day: #12 Patient reports: no new complaints, feels better, pain is less, tolerating liquids well (Thickened liquids and pureed diet with improved oral intake), bowel movement and afebrile Exam Const: General: alert, awake and underweight GI: Inspection: non-distended, incision (Slightly erythematous but dry and intact, no purulence) and other (Minimal serous output from each drain) GI Palp: Yes Soft to palpation, No Tenderness to palpation present (GI) and No Guarding due to palpation present (GI) Objective Data Vital Signs Vital Signs: Vital Signs - 24 hr 11/16/24 20:00 11/16/24 20:27 11/16/24 20:30 Temperature Pulse Rate 76 83 Respiratory Rate 14 18 Blood Pressure Pulse Oximetry 92 87 L Oxygen Delivery Nasal Cannula Room Air Oxygen Flow Rate 2 Fraction of Inspired Oxygen 11/16/24 20:37 11/16/24 20:38 11/16/24 21:36 Temperature 36.8 C Pulse Rate 77 76 Respiratory Rate 18 14 Blood Pressure 143/68 H Pulse Oximetry 93 92 Oxygen Delivery Nasal Cannula Oxygen Flow Rate 2 Fraction of Inspired Oxygen 11/17/24 05:36 11/17/24 08:00 11/17/24 08:48 Temperature 37.4 C Pulse Rate 73 Respiratory Rate 14 Blood Pressure 141/73 H Pulse Oximetry 93 93 93 Oxygen Delivery Nasal Cannula Nasal Cannula Oxygen Flow Rate 1 1 Fraction of Inspired Oxygen 11/17/24 08:48 11/17/24 09:04 Temperature Pulse Rate 72 75 Respiratory Rate 16 16 Blood Pressure Pulse Oximetry Oxygen Delivery Oxygen Flow Rate Fraction of Inspired Oxygen Intake/Output Intake/Output: Intake & Output 11/14/24 11/15/24 11/16/24 11/17/24 23:59 23:59 23:59 23:59 Intake Total 2288 2201.2 1737.6 961.2 Output Total 1935 1500 100 Balance 353 701.2 1637.6 961.2 Meds/Results Medications: Active Medications Generic Name Dose Route Start Last Admin Trade Name Freq PRN Reason Stop Dose Admin Acetaminophen 650 mg 11/06/24 14:48 11/07/24 19:10 Acetaminophen 650 Mg Suppository RECTAL 650 mg Q4H PRN Administration Mild Pain (1-3) or Fever Acetaminophen 650 mg 11/14/24 15:21 Acetaminophen Elixir 325 Mg/10.15 Ml Udc FEED TUBE Q4H PRN Headache, Fever, Mild Pain Hydrocodone Bitart/Acetaminophen 1 tab 11/08/24 13:37 11/13/24 20:27 Hydrocodone/Acetaminophen (*Crx) 5-325 Mg Tablet FEED TUBE 1 tab Q4H PRN Administration Pain Rated 4-6 Acetylcysteine 200 mg 11/09/24 20:00 11/17/24 08:48 Acetylcysteine 20% Inhal Soln 800 Mg/4 Ml Vial INHALATION 200 mg Q12HRT S[facility]V Administration Albuterol 2.5 mg 11/09/24 15:38 11/17/24 08:48 Albuterol Sulfate Neb 2.5 Mg/3 Ml Inh INHALATION 2.5 mg Q12HR PRN Administration Shortness Of Breath Amlodipine Besylate 5 mg 11/11/24 09:00 11/17/24 08:39 Amlodipine Besylate 5 Mg Tablet PO 5 mg DAILY S[facility]RAV Administration Dextrose 12.5 gm 11/06/24 07:40 Dextrose 50% 25 Gm/50 Ml Syringe IV PUSH PRN PRN Hypoglycemia Protocol Enoxaparin Sodium 40 mg 11/12/24 09:00 11/17/24 08:40 Enoxaparin 40 Mg/0.4 Ml Syringe SUB-Q 40 mg DAILY SOURAV Administration Folic Acid 1 mg 11/06/24 09:00 11/17/24 08:40 Folic Acid 1 Mg/0.2 Ml Inj IV PUSH 1 mg QAM SOURAV Administration Glucagon 1 mg 11/06/24 07:40 Glucagon For Inj 1 Mg Vial IM PRN PRN Hypoglycemia Protocol Glucose 15 gm 11/06/24 07:40 Glucose Oral Gel 15 Gm Of Glucse In 37.5 Gm Tube PO PRN PRN Hypoglycemia Protocol Hydralazine HCl 10 mg 11/10/24 09:16 11/14/24 04:17 Hydralazine Hcl 20 Mg/Ml Vial IV PUSH 10 mg Q4HR PRN Administration Blood Pressure - High Dextrose 1,000 mls @ 100 mls/hr 11/06/24 07:40 Dextrose 5% 1,000 Ml IVPB PRN PRN Hypoglycemia Protocol Piperacillin/Tazobactam/Dextrose 3.375 gm in 50 mls @ 100 mls/hr 11/08/24 12:00 11/17/24 11:25 Zosyn 3.375 Gm/Ns 50 Ml IVPB 100 mls/hr Q6H SOURAV Administration Micafungin Sodium 100 mg/ 100 mls @ 100 mls/hr 11/11/24 09:40 11/17/24 08:39 Sodium Chloride IVPB 11/24/24 09:59 100 mls/hr DAILY S[facility]RAV Administration Dextrose 1,000 mls @ 75 mls/hr 11/14/24 15:20 11/17/24 00:50 Dextrose 5% 1,000 Ml IV CONT 75 mls/hr .[id number] SOURAV Administration Vancomycin HCl 1,250 mg in 250 mls @ 166.667 mls/hr 11/15/24 19:00 11/17/24 07:46 Vancomycin 1,250 Mg/Ns 250 Ml IVPB 166 mls/hr Q12H [facility] Administration Insulin Aspart 2 - 5 units 11/08/24 12:00 11/17/24 12:10 Insulin Aspart (*Bkc) 100 Units/Ml SUB-Q Not Given Q6HR [facility] Protocol Miscellaneous Information 1 each 11/17/24 00:01 2 Morphine Prn Orders Need To Be Renewed Or It Will Automatically Discontinue. XX 12/17/24 00:00 CLARIFY [facility] Miscellaneous Information 1 each 11/17/24 00:01 Zosyn Needs To Be Renewed Or It Will Automatically Discontinue. XX 12/17/24 00:00 CLARIFY [facility] Miscellaneous Information 1 each 11/17/24 00:01 [place] Needs To Be Renewed Or It Will Automatically Discontinue. XX 12/17/24 00:00 CLARIFY [facility] Morphine Sulfate 2 mg 11/08/24 07:39 Morphine Sulfate (*Crx) 2 Mg/Ml Inj IV PUSH Q2H PRN Moderate Pain (4-6) Morphine Sulfate 4 mg 11/08/24 07:39 11/17/24 08:42 Morphine Sulfate (*Crx) 4 Mg/Ml Inj IV PUSH 4 mg Q2H PRN Administration Pain Rated 7-10 Naloxone HCl 0.1 mg 11/06/24 00:01 Naloxone Hcl 0.4 Mg/Ml Vial IV PUSH Q2M PRN Opiate Reversal Ondansetron HCl 4 mg 11/06/24 00:01 Ondansetron Inj 4 Mg/2 Ml Vial IV PUSH Q4H PRN Nausea And Vomiting Pantoprazole Sodium 40 mg 11/06/24 09:00 11/17/24 08:40 Pantoprazole Sodium Iv 40 Mg Vial IV PUSH 40 mg Q12HR [facility] Administration Thiamine HCl 100 mg 11/06/24 09:00 11/17/24 08:40 Thiamine Hcl 200 Mg/2 Ml Vial IV PUSH 100 mg QAM SOURAV Administration Radiology Results: ITS Impressions Head CT 11/05/24 20:50 IMPRESSION: 1. Moderate nonspecific cerebral white matter disease, which likely represents chronic small vessel ischemic disease. 2. 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 Upper GI Series 11/08/24 12:17 IMPRESSION: 1. Slow gastric emptying likely related to postoperative ileus. No extraluminal leakage of contrast. Chest/Abdomen/Pelvis CT 11/10/24 10:38 IMPRESSION: 1. Small volume of ascites with mass effect on right lateral aspect of the liver, likely an exudate. 2. Small pleural effusions. 3. Wall thickening of the descending and sigmoid colon and rectum, consistent with colitis versus interstitial edema. Chest X-Ray 11/11/24 06:17 IMPRESSION: 1. Stable small pleural effusions. 2. Stable airspace opacities in the lower lung zones, consistent with atelectasis versus pneumonia. Catheter Placement CT 11/12/24 14:47 IMPRESSION: 1. Successful CT-guided right upper quadrant abdominal abscess drainage yielding yellow fluid. Modified Barium Swallow 11/13/24 12:24 IMPRESSION: 1. Laryngeal penetration. 2. Please refer to the speech therapy report for recommendations. Abdomen X-Ray 11/14/24 11:13 IMPRESSION: Nonspecific, nonobstructive bowel gas pattern. Supportive devices unchanged in position. Bilateral pleural effusions. If clinical suspicion persists, CT examination of the abdomen and pelvis (with intravenous contrast) is suggested for further evaluation. Labs Labs: Laboratory Results - last 24 hr 11/16/24 11/16/24 11/17/24 16:33 20:09 06:07 WBC 16.1 H RBC 3.31 L Hgb 9.9 L Hct 30.5 L MCV 92.1 MCH 29.9 MCHC 32.5 RDW 15.2 H Plt Count 661 H MPV 10.7 H Immature Gran % (Auto) 0.8 H Neut % (Auto) 83.0 H Lymph % (Auto) 8.1 L [place] % (Auto) 7.5 Eos % (Auto) 0.3 Baso % (Auto) 0.3 Lymph # (Auto) 1.31 [place] # (Auto) 1.2 H Eos # (Auto) 0.1 Baso # (Auto) 0.1 Abs Immat Gran (auto) 0.13 H Absolute Neuts (auto) 13.3 H Absolute Nucleated RBC 0.000 Nucleated RBC % 0.0 Sodium 142 Potassium 2.9 L Chloride 113 H Carbon Dioxide 26 Anion Gap 3 L BUN 8 L D Creatinine 0.90 Estim Creat Clear Calc 43 Estimated GFR > 60 Glucose 84 POC Capillary Glucose 147 H 139 H Calcium 7.8 L Magnesium 2.0 Total Bilirubin 0.6 AST 23 ALT 12 Alkaline Phosphatase 128 H Total Protein 6.0 L Albumin 2.5 L Vancomycin Trough 17.6 11/17/24 11/17/24 07:37 11:48 WBC RBC Hgb Hct MCV MCH MCHC RDW Plt Count MPV Immature Gran % (Auto) Neut % (Auto) Lymph % (Auto) [place] % (Auto) Eos % (Auto) Baso % (Auto) Lymph # (Auto) [place] # (Auto) Eos # (Auto) Baso # (Auto) Abs Immat Gran (auto) Absolute Neuts (auto) Absolute Nucleated RBC Nucleated RBC % Sodium Potassium Chloride Carbon Dioxide Anion Gap BUN Creatinine Estim Creat Clear Calc Estimated GFR Glucose POC Capillary Glucose 109 H 128 H Calcium Magnesium Total Bilirubin AST ALT Alkaline Phosphatase Total Protein Albumin Vancomycin Trough
--- NOTE | 2024-11-17 16:33 | P.PNIM_ITS ---
Progress Note: A&P Assessment and Plan (1) Metabolic acidosis: Code(s): E87.20 - Acidosis, unspecified Status: Acute (2) DEBI (acute kidney injury): Code(s): N17.9 - Acute kidney failure, unspecified Status: Acute (3) Perforated gastric ulcer: Qualifiers: Gastric ulcer chronicity: acute Qualified Code(s): K25.1 - Acute gastric ulcer with perforation Code(s): K25.5 - Chronic or unspecified gastric ulcer with perforation Status: Acute (4) COPD (chronic obstructive pulmonary disease): Code(s): J44.9 - Chronic obstructive pulmonary disease, unspecified Status: Acute (5) Sepsis: Code(s): A41.9 - Sepsis, unspecified organism Status: Acute (6) Pneumonia: Code(s): J18.9 - Pneumonia, unspecified organism Status: Acute (7) Acute hypoxic respiratory failure: Code(s): J96.01 - Acute respiratory failure with hypoxia Status: Acute (8) Sepsis associated hypotension: Code(s): A41.9 - Sepsis, unspecified organism; I95.9 - Hypotension, unspecified Status: Acute (9) EtOH dependence: Code(s): F10.20 - Alcohol dependence, uncomplicated Status: Acute Plan Acute hypoxic respiratory failure, resolved Acute Respiratory failure secondary to sepsis, perforated gastric ulcer, general anaesthesia resolved extubated now on room air Sepsis, unspecified organism Sepsis secondary to right lower lobe pneumonia which is likely aspiration, perforated gastric ulcer and peritonitis Continue Micafungin, and Vancomycin, Zosyn discontinued Management of perforated gastric ulcer as below Still has low-grade fever, mild leukocytosis, blood culture has no growth so far plan ir to place drain and to continue present iv abx Zosyn, Vancomycin and Micafungin Pneumonia: CT scan shows right lower lobe pneumonia which is likely aspiration. Continue Zosyn Diarrhea, resolving Likely from tube feeding advance diet per surgery monitor EtOH dependence: Thiamine and folic acid ordered COPD Not in exacerbation Bronchodilators ordered Perforated gastric ulcer: Chronic or unspecified gastric ulcer with perforation Status post exploratory laparotomy, extensive lysis of adhesions, intra- abdominal washout, repair of perforated gastric ulcer with omental patch HARLEY drain placed Dressing on the surgical incision Patient is on Zosyn, Vancomycin and Micafungin Advance diet per surgery DEBI resolved now DEBI likely secondary to sepsis hypotension, fluid shift and hypovolemia Patient received fluid resuscitation and also 25% albumin CT scan does not show any hydronephrosis or obstruction Monitor urine output electrolytes and creatinine Patient has a hypokalemia, creat is stable post iv fluids Replete with potassium chloride 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 Metabolic acidosis Resolved off sodium bicarbonate Severe protein energy malnutrition Start Dronabinol 5mg bid continue pureed diet monitor DVT prophylaxis on Sq lovenox PT/OT Subjective Date/time seen: 11/17/24 16:33 Interval history: Patient on pureed diet however, intake is little Review of Systems Review of Systems: Pt with a dry throat not talking loudly with ng tube in situ on tube feeds looks weak and tired ROS unobtainable: Yes unobtainable due to endotracheal tube, unobtainable due to medical condition and unobtainable due to mental status Exam Narrative: General: , lethargic, chronically unwell thin and disheveled with ng tube in situ Lungs/Chest: Trachea central Coarse BS B/L, No crackles or wheezing. Cardiac: RRR. Normal S1 S2. No murmurs Abdomen: Decreased but present bowel sounds. HARLEY drain in place. Soft. Tender to palpation as patient grimaces on exam. NG tube in place Extremities: No clubbing, cyanosis or edema. Warm : Shen in place Neurologic: Patient is able to move all 4 extremities spontaneously. Objective Data Vital Signs Vital Signs: Vital Signs - 24 hr 11/16/24 20:00 11/16/24 20:27 11/16/24 20:30 Temperature Pulse Rate 76 83 Respiratory Rate 14 18 Blood Pressure Pulse Oximetry 92 87 L Oxygen Delivery Nasal Cannula Room Air Oxygen Flow Rate 2 Fraction of Inspired Oxygen 11/16/24 20:37 11/16/24 20:38 11/16/24 21:36 Temperature 98.3 F Pulse Rate 77 76 Respiratory Rate 18 14 Blood Pressure 143/68 H Pulse Oximetry 93 92 Oxygen Delivery Nasal Cannula Oxygen Flow Rate 2 Fraction of Inspired Oxygen 11/17/24 05:36 11/17/24 08:00 11/17/24 08:48 Temperature 99.3 F Pulse Rate 73 Respiratory Rate 14 Blood Pressure 141/73 H Pulse Oximetry 93 93 93 Oxygen Delivery Nasal Cannula Nasal Cannula Oxygen Flow Rate 1 1 Fraction of Inspired Oxygen 11/17/24 08:48 11/17/24 09:04 11/17/24 14:00 Temperature 98.9 F Pulse Rate 72 75 72 Respiratory Rate 16 16 18 Blood Pressure 140/70 Pulse Oximetry 95 Oxygen Delivery Oxygen Flow Rate Fraction of Inspired Oxygen Intake/Output Intake/Output: Intake & Output 11/14/24 11/15/24 11/16/24 11/17/24 23:59 23:59 23:59 23:59 Intake Total 2288 2201.2 1737.6 961.2 Output Total 1935 1500 100 Balance 353 701.2 1637.6 961.2 Meds/Results Medications: Active Medications Generic Name Dose Route Start Last Admin Trade Name Freq PRN Reason Stop Dose Admin Acetaminophen 650 mg 11/06/24 14:48 11/07/24 19:10 Acetaminophen 650 Mg Suppository RECTAL 650 mg Q4H PRN Administration Mild Pain (1-3) or Fever Acetaminophen 650 mg 11/14/24 15:21 Acetaminophen Elixir 325 Mg/10.15 Ml Udc FEED TUBE Q4H PRN Headache, Fever, Mild Pain Hydrocodone Bitart/Acetaminophen 1 tab 11/08/24 13:37 11/13/24 20:27 Hydrocodone/Acetaminophen (*Crx) 5-325 Mg Tablet FEED TUBE 1 tab Q4H PRN Administration Pain Rated 4-6 Acetylcysteine 200 mg 11/09/24 20:00 11/17/24 08:48 Acetylcysteine 20% Inhal Soln 800 Mg/4 Ml Vial INHALATION 200 mg Q12HRT SOURAV Administration Albuterol 2.5 mg 11/09/24 15:38 11/17/24 08:48 Albuterol Sulfate Neb 2.5 Mg/3 Ml Inh INHALATION 2.5 mg Q12HR PRN Administration Shortness Of Breath Amlodipine Besylate 5 mg 11/11/24 09:00 11/17/24 08:39 Amlodipine Besylate 5 Mg Tablet PO 5 mg DAILY SOURAV Administration Dextrose 12.5 gm 11/06/24 07:40 Dextrose 50% 25 Gm/50 Ml Syringe IV PUSH PRN PRN Hypoglycemia Protocol Enoxaparin Sodium 40 mg 11/12/24 09:00 11/17/24 08:40 Enoxaparin 40 Mg/0.4 Ml Syringe SUB-Q 40 mg DAILY SOURAV Administration Folic Acid 1 mg 11/06/24 09:00 11/17/24 08:40 Folic Acid 1 Mg/0.2 Ml Inj IV PUSH 1 mg QAM SOURAV Administration Glucagon 1 mg 11/06/24 07:40 Glucagon For Inj 1 Mg Vial IM PRN PRN Hypoglycemia Protocol Glucose 15 gm 11/06/24 07:40 Glucose Oral Gel 15 Gm Of Glucse In 37.5 Gm Tube PO PRN PRN Hypoglycemia Protocol Hydralazine HCl 10 mg 11/10/24 09:16 11/14/24 04:17 Hydralazine Hcl 20 Mg/Ml Vial IV PUSH 10 mg Q4HR PRN Administration Blood Pressure - High Dextrose 1,000 mls @ 100 mls/hr 11/06/24 07:40 Dextrose 5% 1,000 Ml IVPB PRN PRN Hypoglycemia Protocol Piperacillin/Tazobactam/Dextrose 3.375 gm in 50 mls @ 100 mls/hr 11/08/24 12:00 11/17/24 11:25 Zosyn 3.375 Gm/Ns 50 Ml IVPB 100 mls/hr Q6H SOURAV Administration Micafungin Sodium 100 mg/ 100 mls @ 100 mls/hr 11/11/24 09:40 11/17/24 08:39 Sodium Chloride IVPB 11/24/24 09:59 100 mls/hr DAILY SOURAV Administration Dextrose 1,000 mls @ 75 mls/hr 11/14/24 15:20 11/17/24 00:50 Dextrose 5% 1,000 Ml IV CONT 75 mls/hr .[id number] SOURAV Administration Vancomycin HCl 1,250 mg in 250 mls @ 166.667 mls/hr 11/15/24 19:00 11/17/24 07:46 Vancomycin 1,250 Mg/Ns 250 Ml IVPB 166 mls/hr Q12H [facility] Administration Insulin Aspart 2 - 5 units 11/08/24 12:00 11/17/24 12:10 Insulin Aspart (*Bkc) 100 Units/Ml SUB-Q Not Given Q6HR [facility] Protocol Miscellaneous Information 1 each 11/17/24 00:01 2 Morphine Prn Orders Need To Be Renewed Or It Will Automatically Discontinue. XX 12/17/24 00:00 CLARIFY [facility] Miscellaneous Information 1 each 11/17/24 00:01 Zosyn Needs To Be Renewed Or It Will Automatically Discontinue. XX 12/17/24 00:00 CLARIFY [facility] Miscellaneous Information 1 each 11/17/24 00:01 [place] Needs To Be Renewed Or It Will Automatically Discontinue. XX 12/17/24 00:00 CLARIFY [facility] Morphine Sulfate 2 mg 11/08/24 07:39 Morphine Sulfate (*Crx) 2 Mg/Ml Inj IV PUSH Q2H PRN Moderate Pain (4-6) Morphine Sulfate 4 mg 11/08/24 07:39 11/17/24 08:42 Morphine Sulfate (*Crx) 4 Mg/Ml Inj IV PUSH 4 mg Q2H PRN Administration Pain Rated 7-10 Naloxone HCl 0.1 mg 11/06/24 00:01 Naloxone Hcl 0.4 Mg/Ml Vial IV PUSH Q2M PRN Opiate Reversal Ondansetron HCl 4 mg 11/06/24 00:01 Ondansetron Inj 4 Mg/2 Ml Vial IV PUSH Q4H PRN Nausea And Vomiting Pantoprazole Sodium 40 mg 11/06/24 09:00 11/17/24 08:40 Pantoprazole Sodium Iv 40 Mg Vial IV PUSH 40 mg Q12HR [facility]V Administration Thiamine HCl 100 mg 11/06/24 09:00 11/17/24 08:40 Thiamine Hcl 200 Mg/2 Ml Vial IV PUSH 100 mg QAM SOURAV Administration Radiology Results: ITS Impressions Head CT 11/05/24 20:50 IMPRESSION: 1. Moderate nonspecific cerebral white matter disease, which likely represents chronic small vessel ischemic disease. 2. 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 Upper GI Series 11/08/24 12:17 IMPRESSION: 1. Slow gastric emptying likely related to postoperative ileus. No extraluminal leakage of contrast. Chest/Abdomen/Pelvis CT 11/10/24 10:38 IMPRESSION: 1. Small volume of ascites with mass effect on right lateral aspect of the liver, likely an exudate. 2. Small pleural effusions. 3. Wall thickening of the descending and sigmoid colon and rectum, consistent with colitis versus interstitial edema. Chest X-Ray 11/11/24 06:17 IMPRESSION: 1. Stable small pleural effusions. 2. Stable airspace opacities in the lower lung zones, consistent with atelectasis versus pneumonia. Catheter Placement CT 11/12/24 14:47 IMPRESSION: 1. Successful CT-guided right upper quadrant abdominal abscess drainage yielding yellow fluid. Modified Barium Swallow 11/13/24 12:24 IMPRESSION: 1. Laryngeal penetration. 2. Please refer to the speech therapy report for recommendations. Abdomen X-Ray 11/14/24 11:13 IMPRESSION: Nonspecific, nonobstructive bowel gas pattern. Supportive devices unchanged in position. Bilateral pleural effusions. If clinical suspicion persists, CT examination of the abdomen and pelvis (with intravenous contrast) is suggested for further evaluation. Labs Labs: Laboratory Results - last 24 hr 11/16/24 11/16/24 11/17/24 16:33 20:09 06:07 WBC 16.1 H RBC 3.31 L Hgb 9.9 L Hct 30.5 L MCV 92.1 MCH 29.9 MCHC 32.5 RDW 15.2 H Plt Count 661 H MPV 10.7 H Immature Gran % (Auto) 0.8 H Neut % (Auto) 83.0 H Lymph % (Auto) 8.[address] [place] % (Auto) 7.5 Eos % (Auto) 0.3 Baso % (Auto) 0.3 Lymph # (Auto) 1.31 [place] # (Auto) 1.2 H Eos # (Auto) 0.1 Baso # (Auto) 0.1 Abs Immat Gran (auto) 0.13 H Absolute Neuts (auto) 13.3 H Absolute Nucleated RBC 0.000 Nucleated RBC % 0.0 Sodium 142 Potassium 2.9 L Chloride 113 H Carbon Dioxide 26 Anion Gap 3 L BUN 8 L D Creatinine 0.90 Estim Creat Clear Calc 43 Estimated GFR > 60 Glucose 84 POC Capillary Glucose 147 H 139 H Calcium 7.8 L Magnesium 2.0 Total Bilirubin 0.6 AST 23 ALT 12 Alkaline Phosphatase 128 H Total Protein 6.0 L Albumin 2.5 L Vancomycin Trough 17.6 11/17/24 11/17/24 07:37 11:48 WBC RBC Hgb Hct MCV MCH MCHC RDW Plt Count MPV Immature Gran % (Auto) Neut % (Auto) Lymph % (Auto) [place] % (Auto) Eos % (Auto) Baso % (Auto) Lymph # (Auto) [place] # (Auto) Eos # (Auto) Baso # (Auto) Abs Immat Gran (auto) Absolute Neuts (auto) Absolute Nucleated RBC Nucleated RBC % Sodium Potassium Chloride Carbon Dioxide Anion Gap BUN Creatinine Estim Creat Clear Calc Estimated GFR Glucose POC Capillary Glucose 109 H 128 H Calcium Magnesium Total Bilirubin AST ALT Alkaline Phosphatase Total Protein Albumin Vancomycin Trough Quality VTE Prophylaxis VTE prophylaxis: mechanical ordered and pharmacologic ordered
[2024-11-17 16:44] LABS: Glucose Point of Care 139 mg/dl (65-105)
[2024-11-17] MEDS: droNABinol (*CRX) 2.5 MG CAPSULE 5 MG PO (17:33)
[2024-11-17 18:41] LABS: Potassium 3.9 mmol/L (3.4-5.0)
[2024-11-17 18:58] LABS: Toxigenic C. Diff NEGATIVE (NEGATIVE)
[2024-11-17] MEDS: HYDROcodone/acetaminophen (*CRX) 5-325 MG TABLET 1 TAB FEED TUBE (20:01)
[2024-11-17 20:02] LABS: Glucose Point of Care 119 mg/dl (65-105)
[2024-11-18] VITALS (9 sets, daily range): BP systolic 144–157; BP diastolic 70–78; PULSE 78–86; RESP 16–22; TEMP 36.7–37.8; O2SAT 91–98
[2024-11-18] MEDS: HYDROcodone/acetaminophen (*CRX) 5-325 MG TABLET 1 TAB FEED TUBE (00:29)
[2024-11-18] MEDS: PIPERACILLN/TAZ 3.375GM/NS50ML 3.375 GM/50 ML BAG IVPB ×2 (00:29→06:19)
[2024-11-18 07:00] LABS: Estimated CRCL calculation 20 ml/min; Estimated Glomerular Filt Rate 30
[2024-11-18] MEDS: VANCOMYCIN 1,250 MG/NS 250 ML 1,250 MG/250 ML BAG 166 MG IVPB (07:24)
[2024-11-18 08:09] LABS: Glucose Point of Care 109 mg/dl (65-105)
[2024-11-18] MEDS: ACETYLCYSTEINE 20% INHAL SOLN 800 MG/4 ML VIAL 200 MG INHALATION ×2 (08:19→20:40)
[2024-11-18] MEDS: ALBUTEROL SULFATE NEB 2.5 MG/3 ML INH INHALATION ×2 (08:19→20:40)
[2024-11-18] MEDS: droNABinol (*CRX) 2.5 MG CAPSULE 5 MG PO ×2 (09:03→16:59)
[2024-11-18] MEDS: amLODIPine BESYLATE 5 MG TABLET PO (09:03)
[2024-11-18] MEDS: ENOXAPARIN 30 MG/0.3 ML SYRINGE SUB-Q (09:04)
[2024-11-18] MEDS: FOLIC ACID 1 MG/0.2 ML INJ IV PUSH (09:10)
[2024-11-18] MEDS: MICAFUNGIN SODIUM 100 MG in SODIUM CHLORIDE 0.9% IV 100 ML IVPB (09:11)
[2024-11-18] MEDS: PANTOPRAZOLE SODIUM IV 40 MG VIAL IV PUSH ×2 (09:14→20:08)
[2024-11-18] MEDS: THIAMINE HCL 200 MG/2 ML VIAL 100 MG IV PUSH (09:14)
--- NOTE | 2024-11-18 11:38 | PM.IMPN ---
Progress Note: A&P Assessment and Plan (1) Metabolic acidosis: Code(s): E87.20 - Acidosis, unspecified Status: Acute (2) DEBI (acute kidney injury): Code(s): N17.9 - Acute kidney failure, unspecified Status: Acute (3) Perforated gastric ulcer: Qualifiers: Gastric ulcer chronicity: acute Qualified Code(s): K25.1 - Acute gastric ulcer with perforation Code(s): K25.5 - Chronic or unspecified gastric ulcer with perforation Status: Acute (4) COPD (chronic obstructive pulmonary disease): Code(s): J44.9 - Chronic obstructive pulmonary disease, unspecified Status: Acute (5) Sepsis: Code(s): A41.9 - Sepsis, unspecified organism Status: Acute (6) Pneumonia: Code(s): J18.9 - Pneumonia, unspecified organism Status: Acute (7) Acute hypoxic respiratory failure: Code(s): J96.01 - Acute respiratory failure with hypoxia Status: Acute (8) Sepsis associated hypotension: Code(s): A41.9 - Sepsis, unspecified organism; I95.9 - Hypotension, unspecified Status: Acute (9) EtOH dependence: Code(s): F10.20 - Alcohol dependence, uncomplicated Status: Acute Plan Acute hypoxic respiratory failure, resolved Acute Respiratory failure secondary to sepsis, perforated gastric ulcer, general anaesthesia resolved extubated now on room air Sepsis, unspecified organism Sepsis secondary to right lower lobe pneumonia which is likely aspiration, perforated gastric ulcer and peritonitis Continue Micafungin, and Vancomycin; Zosyn discontinued Management of perforated gastric ulcer as below Still has low-grade fever, mild leukocytosis, blood culture has no growth so far and to continue present iv abx Zosyn, Vancomycin and Micafungin Pneumonia: CT scan shows right lower lobe pneumonia which is likely aspiration. Completed Zosyn. Diarrhea, resolving Likely from tube feeding advance diet per surgery monitor EtOH dependence: Thiamine and folic acid ordered COPD Not in exacerbation Bronchodilators ordered Perforated gastric ulcer: Chronic or unspecified gastric ulcer with perforation Status post exploratory laparotomy, extensive lysis of adhesions, intra-abdominal washout, repair of perforated gastric ulcer with omental patch HARLEY drain placed Dressing on the surgical incision Patient is on Zosyn, Vancomycin and Micafungin Advance diet per surgery DEBI resolved now DEBI likely secondary to sepsis hypotension, fluid shift and hypovolemia Patient received fluid resuscitation and also 25% albumin CT scan does not show any hydronephrosis or obstruction Monitor urine output electrolytes and creatinine Patient has a hypokalemia, creat is stable post iv fluids Replete with potassium chloride Creatinine now 2.2, Cr 0.9 Metabolic acidosis Resolved off sodium bicarbonate Severe protein energy malnutrition On Dronabinol 5mg bid continue pureed diet Declines tube feeding monitor DVT prophylaxis on Sq Lovenox PT/OT following Subjective Date/time seen: 11/18/24 11:38 Interval history: Patient on pureed diet however, still having very little intake Declined firmly Tube feeding Review of Systems Review of Systems: Pt with a dry throat not talking loudly with ng tube in situ on tube feeds looks weak and tired ROS unobtainable: Yes unobtainable due to endotracheal tube, unobtainable due to medical condition and unobtainable due to mental status Exam Narrative: General: , lethargic, chronically unwell thin and disheveled with ng tube in situ Lungs/Chest: Trachea central Coarse BS B/L, No crackles or wheezing. Cardiac: RRR. Normal S1 S2. No murmurs Abdomen: Decreased but present bowel sounds. HARLEY drain in place. Soft. Tender to palpation as patient grimaces on exam. NG tube in place Extremities: No clubbing, cyanosis or edema. Warm : Shen in place Neurologic: Patient is able to move all 4 extremities spontaneously. Objective Data Vital Signs Vital Signs: Vital Signs - 24 hr 11/17/24 14:00 11/17/24 19:32 11/17/24 19:32 Temperature 98.9 F Pulse Rate 72 82 Respiratory Rate 18 20 Blood Pressure 140/70 Pulse Oximetry 95 92 Oxygen Delivery Room Air 11/17/24 19:42 11/17/24 20:00 11/17/24 22:00 Temperature 99.6 F Pulse Rate 85 85 Respiratory Rate 20 18 Blood Pressure 166/72 H Pulse Oximetry 92 90 Oxygen Delivery Room Air 11/18/24 05:50 11/18/24 05:58 11/18/24 08:19 Temperature 100.0 F H 98.3 F Pulse Rate 84 Respiratory Rate 16 Blood Pressure 157/73 H Pulse Oximetry 95 92 Oxygen Delivery Room Air 11/18/24 08:19 11/18/24 08:33 Temperature Pulse Rate 78 82 Respiratory Rate 20 20 Blood Pressure Pulse Oximetry Oxygen Delivery Intake/Output Intake/Output: Intake & Output 11/15/24 11/16/24 11/17/24 11/18/24 23:59 23:59 23:59 23:59 Intake Total 2201.2 1737.6 2911.2 100 Output Total 1500 100 2 30 Balance 701.2 1637.6 2909.2 70 Meds/Results Medications: Active Medications Generic Name Dose Route Start Last Admin Trade Name Freq PRN Reason Stop Dose Admin Acetaminophen 650 mg 11/06/24 14:48 11/07/24 19:10 Acetaminophen 650 Mg Suppository RECTAL 650 mg Q4H PRN Administration Mild Pain (1-3) or Fever Acetaminophen 650 mg 11/14/24 15:21 Acetaminophen Elixir 325 Mg/10.15 Ml Udc FEED TUBE Q4H PRN Headache, Fever, Mild Pain Hydrocodone Bitart/Acetaminophen 1 tab 11/08/24 13:37 11/18/24 00:29 Hydrocodone/Acetaminophen (*Crx) 5-325 Mg Tablet FEED TUBE 1 tab Q4H PRN Administration Pain Rated 4-6 Acetylcysteine 200 mg 11/09/24 20:00 11/18/24 08:19 Acetylcysteine 20% Inhal Soln 800 Mg/4 Ml Vial INHALATION 200 mg Q12HRT SOURAV Administration Albuterol 2.5 mg 11/09/24 15:38 11/18/24 08:19 Albuterol Sulfate Neb 2.5 Mg/3 Ml Inh INHALATION 2.5 mg Q12HR PRN Administration Shortness Of Breath Amlodipine Besylate 5 mg 11/11/24 09:00 11/18/24 09:03 Amlodipine Besylate 5 Mg Tablet PO 5 mg DAILY SOURAV Administration Dextrose 12.5 gm 11/06/24 07:40 Dextrose 50% 25 Gm/50 Ml Syringe IV PUSH PRN PRN Hypoglycemia Protocol Dronabinol 5 mg 11/17/24 17:00 11/18/24 09:03 Dronabinol (*Crx) 2.5 Mg Capsule PO 5 mg BID SOURAV Administration Enoxaparin Sodium 30 mg 11/18/24 09:00 11/18/24 09:04 Enoxaparin 30 Mg/0.3 Ml Syringe SUB-Q 30 mg DAILY SOURAV Administration Folic Acid 1 mg 11/06/24 09:00 11/18/24 09:10 Folic Acid 1 Mg/0.2 Ml Inj IV PUSH 1 mg QAM SOURAV Administration Glucagon 1 mg 11/06/24 07:40 Glucagon For Inj 1 Mg Vial IM PRN PRN Hypoglycemia Protocol Glucose 15 gm 11/06/24 07:40 Glucose Oral Gel 15 Gm Of Glucse In 37.5 Gm Tube PO PRN PRN Hypoglycemia Protocol Hydralazine HCl 10 mg 11/10/24 09:16 11/14/24 04:17 Hydralazine Hcl 20 Mg/Ml Vial IV PUSH 10 mg Q4HR PRN Administration Blood Pressure - High Dextrose 1,000 mls @ 100 mls/hr 11/06/24 07:40 Dextrose 5% 1,000 Ml IVPB PRN PRN Hypoglycemia Protocol Piperacillin/Tazobactam/Dextrose 3.375 gm in 50 mls @ 100 mls/hr 11/08/24 12:00 11/18/24 06:49 Zosyn 3.375 Gm/Ns 50 Ml IVPB Infused Q6H SOURAV Infusion Micafungin Sodium 100 mg/ 100 mls @ 100 mls/hr 11/11/24 09:40 11/18/24 09:11 Sodium Chloride IVPB 11/24/24 09:59 100 mls/hr DAILY SOURAV Administration Dextrose 1,000 mls @ 75 mls/hr 11/14/24 15:20 11/18/24 06:28 Dextrose 5% 1,000 Ml IV CONT Not Given .[id number] SOURAV Vancomycin HCl 1,250 mg in 250 mls @ 166.667 mls/hr 11/15/24 19:00 11/18/24 07:24 Vancomycin 1,250 Mg/Ns 250 Ml IVPB 166 mls/hr Q12H SOURAV Administration Insulin Aspart 2 - 5 units 11/18/24 08:00 11/18/24 09:02 Insulin Aspart (*Bkc) 100 Units/Ml SUB-Q Not Given TIDWM [facility] Protocol Miscellaneous Information 1 each 11/17/24 00:01 2 Morphine Prn Orders Need To Be Renewed Or It Will Automatically Discontinue. XX 12/17/24 00:00 CLARIFY SOURAV Miscellaneous Information 1 each 11/17/24 00:01 Zosyn Needs To Be Renewed Or It Will Automatically Discontinue. XX 12/17/24 00:00 CLARIFY SOURAV Miscellaneous Information 1 each 11/17/24 00:01 [place] Needs To Be Renewed Or It Will Automatically Discontinue. XX 12/17/24 00:00 CLARIFY [facility] Morphine Sulfate 2 mg 11/08/24 07:39 Morphine Sulfate (*Crx) 2 Mg/Ml Inj IV PUSH Q2H PRN Moderate Pain (4-6) Morphine Sulfate 4 mg 11/08/24 07:39 11/17/24 08:42 Morphine Sulfate (*Crx) 4 Mg/Ml Inj IV PUSH 4 mg Q2H PRN Administration Pain Rated 7-10 Naloxone HCl 0.1 mg 11/06/24 00:01 Naloxone Hcl 0.4 Mg/Ml Vial IV PUSH Q2M PRN Opiate Reversal Ondansetron HCl 4 mg 11/06/24 00:01 Ondansetron Inj 4 Mg/2 Ml Vial IV PUSH Q4H PRN Nausea And Vomiting Pantoprazole Sodium 40 mg 11/06/24 09:00 11/18/24 09:14 Pantoprazole Sodium Iv 40 Mg Vial IV PUSH 40 mg Q12HR SOURAV Administration Thiamine HCl 100 mg 11/06/24 09:00 11/18/24 09:14 Thiamine Hcl 200 Mg/2 Ml Vial IV PUSH 100 mg QAM SOURAV Administration Radiology Results: ITS Impressions Head CT 11/05/24 20:50 IMPRESSION: 1. Moderate nonspecific cerebral white matter disease, which likely represents chronic small vessel ischemic disease. 2. 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 Upper GI Series 11/08/24 12:17 IMPRESSION: 1. Slow gastric emptying likely related to postoperative ileus. No extraluminal leakage of contrast. Chest/Abdomen/Pelvis CT 11/10/24 10:38 IMPRESSION: 1. Small volume of ascites with mass effect on right lateral aspect of the liver, likely an exudate. 2. Small pleural effusions. 3. Wall thickening of the descending and sigmoid colon and rectum, consistent with colitis versus interstitial edema. Chest X-Ray 11/11/24 06:17 IMPRESSION: 1. Stable small pleural effusions. 2. Stable airspace opacities in the lower lung zones, consistent with atelectasis versus pneumonia. Catheter Placement CT 11/12/24 14:47 IMPRESSION: 1. Successful CT-guided right upper quadrant abdominal abscess drainage yielding yellow fluid. Modified Barium Swallow 11/13/24 12:24 IMPRESSION: 1. Laryngeal penetration. 2. Please refer to the speech therapy report for recommendations. Abdomen X-Ray 11/14/24 11:13 IMPRESSION: Nonspecific, nonobstructive bowel gas pattern. Supportive devices unchanged in position. Bilateral pleural effusions. If clinical suspicion persists, CT examination of the abdomen and pelvis (with intravenous contrast) is suggested for further evaluation. Labs Labs: Laboratory Results - last 24 hr 11/17/24 11/17/24 11/17/24 11:48 16:34 17:58 Potassium Creatinine Estim Creat Clear Calc Estimated GFR POC Capillary Glucose 128 H 139 H C. difficile (PCR) Negative 11/17/24 11/17/24 11/18/24 18:26 19:56 06:32 Potassium 3.9 Creatinine 2.20 H Estim Creat Clear Calc 20 Estimated GFR 30 L POC Capillary Glucose 119 H C. difficile (PCR) 11/18/24 08:05 Potassium Creatinine Estim Creat Clear Calc Estimated GFR POC Capillary Glucose 109 H C. difficile (PCR) Quality VTE Prophylaxis VTE prophylaxis: mechanical ordered and pharmacologic ordered
[2024-11-18 11:59] LABS: Glucose Point of Care 133 mg/dl (65-105)
[2024-11-18] MEDS: SODIUM CHLORIDE 0.9% IV 1,000 ML 125 ML IV CONT ×2 (13:05→20:11)
--- NOTE | 2024-11-18 14:25 | PM.PNGS ---
Progress Note: A&P Assessment and Plan (1) Perforated gastric ulcer: Qualifiers: Gastric ulcer chronicity: acute Qualified Code(s): K25.1 - Acute gastric ulcer with perforation Code(s): K25.5 - Chronic or unspecified gastric ulcer with perforation Status: Acute Assessment and Plan: No evidence of surgical complication. Eating poorly. Continue present care. Subjective Subjective Date/Time Seen: 11/18/24 14:25 Patient reports: no new complaints, bowel movement, afebrile and other (Poor appetite) Exam Const: General: cooperative, alert and awake Nutritional Appearance: underweight GI: Inspection: incision (Slightly reddened, chencho in place, no drainage), scaphoid and other (Nothing out HARLEY drain, serous fluid from pigtail catheter about 30 cc) GI Palp: Yes Firmness to palpation present (GI) and Yes Tenderness to palpation present (GI) (Minimal tenderness) Auscultation: normal bowel sounds Objective Data Vital Signs Vital Signs: Vital Signs - 24 hr 11/17/24 19:32 11/17/24 19:32 11/17/24 19:42 Temperature Pulse Rate 82 85 Respiratory Rate 20 20 Blood Pressure Pulse Oximetry 92 Oxygen Delivery Room Air 11/17/24 20:00 11/17/24 22:00 11/18/24 05:50 Temperature 37.6 C 37.8 C H Pulse Rate 85 84 Respiratory Rate 18 16 Blood Pressure 166/72 H 157/73 H Pulse Oximetry 92 90 95 Oxygen Delivery Room Air 11/18/24 05:58 11/18/24 08:19 11/18/24 08:19 Temperature 36.8 C Pulse Rate 78 Respiratory Rate 20 Blood Pressure Pulse Oximetry 92 Oxygen Delivery Room Air 11/18/24 08:33 Temperature Pulse Rate 82 Respiratory Rate 20 Blood Pressure Pulse Oximetry Oxygen Delivery Intake/Output Intake/Output: Intake & Output 11/15/24 11/16/24 11/17/24 11/18/24 23:59 23:59 23:59 23:59 Intake Total 2201.2 1737.6 2911.2 100 Output Total 1500 100 2 30 Balance 701.2 1637.6 2909.2 70 Meds/Results Medications: Active Medications Generic Name Dose Route Start Last Admin Trade Name Freq PRN Reason Stop Dose Admin Acetaminophen 650 mg 11/06/24 14:48 11/07/24 19:10 Acetaminophen 650 Mg Suppository RECTAL 650 mg Q4H PRN Administration Mild Pain (1-3) or Fever Acetaminophen 650 mg 11/14/24 15:21 Acetaminophen Elixir 325 Mg/10.15 Ml Udc FEED TUBE Q4H PRN Headache, Fever, Mild Pain Hydrocodone Bitart/Acetaminophen 1 tab 11/08/24 13:37 11/18/24 00:29 Hydrocodone/Acetaminophen (*Crx) 5-325 Mg Tablet FEED TUBE 1 tab Q4H PRN Administration Pain Rated 4-6 Acetylcysteine 200 mg 11/09/24 20:00 11/18/24 08:19 Acetylcysteine 20% Inhal Soln 800 Mg/4 Ml Vial INHALATION 200 mg Q12HRT SOURAV Administration Albuterol 2.5 mg 11/09/24 15:38 11/18/24 08:19 Albuterol Sulfate Neb 2.5 Mg/3 Ml Inh INHALATION 2.5 mg Q12HR PRN Administration Shortness Of Breath Amlodipine Besylate 5 mg 11/11/24 09:00 11/18/24 09:03 Amlodipine Besylate 5 Mg Tablet PO 5 mg DAILY SOURAV Administration Dextrose 12.5 gm 11/06/24 07:40 Dextrose 50% 25 Gm/50 Ml Syringe IV PUSH PRN PRN Hypoglycemia Protocol Dronabinol 5 mg 11/17/24 17:00 11/18/24 09:03 Dronabinol (*Crx) 2.5 Mg Capsule PO 5 mg BID SOURAV Administration Enoxaparin Sodium 30 mg 11/18/24 09:00 11/18/24 09:04 Enoxaparin 30 Mg/0.3 Ml Syringe SUB-Q 30 mg DAILY SOURAV Administration Folic Acid 1 mg 11/06/24 09:00 11/18/24 09:10 Folic Acid 1 Mg/0.2 Ml Inj IV PUSH 1 mg QAM SOURAV Administration Glucagon 1 mg 11/06/24 07:40 Glucagon For Inj 1 Mg Vial IM PRN PRN Hypoglycemia Protocol Glucose 15 gm 11/06/24 07:40 Glucose Oral Gel 15 Gm Of Glucse In 37.5 Gm Tube PO PRN PRN Hypoglycemia Protocol Hydralazine HCl 10 mg 11/10/24 09:16 11/14/24 04:17 Hydralazine Hcl 20 Mg/Ml Vial IV PUSH 10 mg Q4HR PRN Administration Blood Pressure - High Dextrose 1,000 mls @ 100 mls/hr 11/06/24 07:40 Dextrose 5% 1,000 Ml IVPB PRN PRN Hypoglycemia Protocol Micafungin Sodium 100 mg/ 100 mls @ 100 mls/hr 11/11/24 09:40 11/18/24 09:11 Sodium Chloride IVPB 11/24/24 09:59 100 mls/hr DAILY SOURAV Administration Vancomycin HCl 1,250 mg in 250 mls @ 166.667 mls/hr 11/15/24 19:00 11/18/24 07:24 Vancomycin 1,250 Mg/Ns 250 Ml IVPB 166 mls/hr Q12H SOURAV Administration Sodium Chloride 1,000 mls @ 125 mls/hr 11/18/24 11:45 11/18/24 13:05 Normal Saline Iv IV CONT 125 mls/hr .Q8H SOURAV Administration Insulin Aspart 2 - 5 units 11/18/24 08:00 11/18/24 12:45 Insulin Aspart (*Bkc) 100 Units/Ml SUB-Q Not Given TIDWM [facility] Protocol Miscellaneous Information 1 each 11/17/24 00:01 2 Morphine Prn Orders Need To Be Renewed Or It Will Automatically Discontinue. XX 12/17/24 00:00 CLARIFY [facility] Miscellaneous Information 1 each 11/17/24 00:01 Zosyn Needs To Be Renewed Or It Will Automatically Discontinue. XX 12/17/24 00:00 CLARIFY [facility] Miscellaneous Information 1 each 11/17/24 00:01 [place] Needs To Be Renewed Or It Will Automatically Discontinue. XX 12/17/24 00:00 CLARIFY [facility] Morphine Sulfate 2 mg 11/08/24 07:39 Morphine Sulfate (*Crx) 2 Mg/Ml Inj IV PUSH Q2H PRN Moderate Pain (4-6) Morphine Sulfate 4 mg 11/08/24 07:39 11/17/24 08:42 Morphine Sulfate (*Crx) 4 Mg/Ml Inj IV PUSH 4 mg Q2H PRN Administration Pain Rated 7-10 Naloxone HCl 0.1 mg 11/06/24 00:01 Naloxone Hcl 0.4 Mg/Ml Vial IV PUSH Q2M PRN Opiate Reversal Ondansetron HCl 4 mg 11/06/24 00:01 Ondansetron Inj 4 Mg/2 Ml Vial IV PUSH Q4H PRN Nausea And Vomiting Pantoprazole Sodium 40 mg 11/06/24 09:00 11/18/24 09:14 Pantoprazole Sodium Iv 40 Mg Vial IV PUSH 40 mg Q12HR SOURAV Administration Thiamine HCl 100 mg 11/06/24 09:00 11/18/24 09:14 Thiamine Hcl 200 Mg/2 Ml Vial IV PUSH 100 mg QAM SOURAV Administration Radiology Results: ITS Impressions Head CT 11/05/24 20:50 IMPRESSION: 1. Moderate nonspecific cerebral white matter disease, which likely represents chronic small vessel ischemic disease. 2. 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 Upper GI Series 11/08/24 12:17 IMPRESSION: 1. Slow gastric emptying likely related to postoperative ileus. No extraluminal leakage of contrast. Chest/Abdomen/Pelvis CT 11/10/24 10:38 IMPRESSION: 1. Small volume of ascites with mass effect on right lateral aspect of the liver, likely an exudate. 2. Small pleural effusions. 3. Wall thickening of the descending and sigmoid colon and rectum, consistent with colitis versus interstitial edema. Chest X-Ray 11/11/24 06:17 IMPRESSION: 1. Stable small pleural effusions. 2. Stable airspace opacities in the lower lung zones, consistent with atelectasis versus pneumonia. Catheter Placement CT 11/12/24 14:47 IMPRESSION: 1. Successful CT-guided right upper quadrant abdominal abscess drainage yielding yellow fluid. Modified Barium Swallow 11/13/24 12:24 IMPRESSION: 1. Laryngeal penetration. 2. Please refer to the speech therapy report for recommendations. Abdomen X-Ray 11/14/24 11:13 IMPRESSION: Nonspecific, nonobstructive bowel gas pattern. Supportive devices unchanged in position. Bilateral pleural effusions. If clinical suspicion persists, CT examination of the abdomen and pelvis (with intravenous contrast) is suggested for further evaluation. Labs Labs: Laboratory Results - last 24 hr 11/17/24 11/17/24 11/17/24 16:34 17:58 18:26 Potassium 3.9 Creatinine Estim Creat Clear Calc Estimated GFR POC Capillary Glucose 139 H C. difficile (PCR) Negative 11/17/24 11/18/24 11/18/24 19:56 06:32 08:05 Potassium Creatinine 2.20 H Estim Creat Clear Calc 20 Estimated GFR 30 L POC Capillary Glucose 119 H 109 H C. difficile (PCR) 11/18/24 11:49 Potassium Creatinine Estim Creat Clear Calc Estimated GFR POC Capillary Glucose 133 H C. difficile (PCR)
[2024-11-18 16:53] LABS: Glucose Point of Care 111 mg/dl (65-105)
[2024-11-18 18:19] LABS: Vancomycin Trough 42.9 ug/mL (10.0-20.0)
[2024-11-18 20:40] LABS: Glucose Point of Care 110 mg/dl (65-105)
[2024-11-19] VITALS (9 sets, daily range): BP systolic 149–155; BP diastolic 79–85; PULSE 78–86; RESP 18–26; TEMP 36.7–37.6; O2SAT 93–94
[2024-11-19 07:01] LABS: Basophils Absolute Auto 0.1 K/mm3 (0.0-0.1); Basophils Percent Auto 0.4 % (0.2-1.2); Eosinophils Absolute Auto 0.1 K/mm3 (0-0.3); Eosinophils Percent Auto 0.3 % (0-4.4); Hematocrit 32.6 % (42.0-52.0); Hemoglobin 10.2 g/dL (14.0-18.0); Immature Granulocyte Absolute 0.17 K/mm3 (0.00-0.031); Lymphocytes Absolute Auto 0.97 K/mm3 (0.9-3.2); Mean Corpuscular HGB Conc 31.3 g/dl (32-36); Mean Corpuscular Hemoglobin 29.1 pg (26-34); Mean Corpuscular Volume 93.1 fl (80-100); Mean Platelet Volume 9.9 fl (7.4-10.4); Monocytes Absolute Auto 0.9 K/mm3 (0.1-0.6); Monocytes Percent Auto 5.8 % (2.6-8.5); Neutrophils Percent Auto 86.5 % (45.5-73.1); Platelet Count Result 868 k/mm3 (150-375); Red Cell Distribution Width 15.1 % (11.5-14.5); White Blood Count 16.2 K/mm3 (4.5-10.0)
[2024-11-19 07:26] LABS: Alanine Aminotransferase 11 U/L (6-50); Albumin Level 2.6 g/dL (3.5-5.1); Alkaline Phosphatase 130 U/L (38-126); Anion Gap 7 mmol/L (4-12); Aspartate Amino Transferase 21 U/L (17-59); Bilirubin,Total 0.5 mg/dL (0.2-1.3); Blood Urea Nitrogen 19 mg/dL (9-20); Calcium 7.8 mg/dL (8.4-10.2); Carbon Dioxide 19 mmol/L (22-30); Chloride 116 mmol/L (98-107); Estimated CRCL calculation 15 ml/min; Estimated Glomerular Filt Rate 21; Glucose 79 mg/dL (65-110); Potassium 3.7 mmol/L (3.4-5.0); Sodium 142 mmol/L (137-145)
[2024-11-19] MEDS: ALBUTEROL SULFATE NEB 2.5 MG/3 ML INH INHALATION ×2 (07:55→21:02)
[2024-11-19] MEDS: ACETYLCYSTEINE 20% INHAL SOLN 800 MG/4 ML VIAL 200 MG INHALATION ×2 (07:55→21:02)
[2024-11-19 08:20] LABS: Glucose Point of Care 80 mg/dl (65-105)
[2024-11-19] MEDS: droNABinol (*CRX) 2.5 MG CAPSULE 5 MG PO ×2 (09:02→16:02)
[2024-11-19] MEDS: FOLIC ACID 1 MG/0.2 ML INJ IV PUSH (09:03)
[2024-11-19] MEDS: ENOXAPARIN 30 MG/0.3 ML SYRINGE SUB-Q (09:03)
[2024-11-19] MEDS: THIAMINE HCL 200 MG/2 ML VIAL 100 MG IV PUSH (09:03)
[2024-11-19] MEDS: PANTOPRAZOLE SODIUM IV 40 MG VIAL IV PUSH ×2 (09:03→20:33)
[2024-11-19] MEDS: amLODIPine BESYLATE 5 MG TABLET PO (09:03)
[2024-11-19] MEDS: MICAFUNGIN SODIUM 100 MG in SODIUM CHLORIDE 0.9% IV 100 ML IVPB (09:05)
[2024-11-19] MEDS: MORPHINE SULFATE (*CRX) 4 MG/ML INJ IV PUSH (09:50)
--- NOTE | 2024-11-19 10:52 | PCOTNOTE ---
Attempted to see for OT session. Patient refused to participate, having increased confusion and seems to be angry at this time.
--- NOTE | 2024-11-19 11:19 | PCNFU ---
Nutrition Follow-Up Complete: Alerted GI function as related to perforated gastric ulcer as evidenced by NPO. *Pt no longer NPO, on a PO diet Goal:Meet estimated nutritional needs. Pt not meeting goal Pt current nutrition is Pureed, level 2 mildly thickened liquids, Ensure compact BID. Nutrition recommendation: Increased Ensure compact to TID Last recorded weight is 49.7 kg. Bowel Motility: +BM 11/18 Labs Reviewed: Hgb:10.2, HCT:32.6, Alb:2.6, GFR:21, Cr:3.0 Meds Noted: protonix, insulin Skin: WNL Additional Notes: Pt on a pureed diet with mildly thickened liquids level 2. Nursing reports minimal intake, pt asleep during assessment. Pt does drink some of the Ensure compact, will increase to TID with meals. Noted pt firmly refused a tube feed yesterday per notes. Encourage po intake as much as possible. Will monitor weight, labs, skin, diet orders, Follow up in 3 days.
[2024-11-19 11:39] LABS: Glucose Point of Care 86 mg/dl (65-105)
--- NOTE | 2024-11-19 12:00 | PM.IMPN ---
Progress Note: A&P Assessment and Plan (1) Metabolic acidosis: Code(s): E87.20 - Acidosis, unspecified Status: Acute (2) DEBI (acute kidney injury): Code(s): N17.9 - Acute kidney failure, unspecified Status: Acute (3) Perforated gastric ulcer: Qualifiers: Gastric ulcer chronicity: acute Qualified Code(s): K25.1 - Acute gastric ulcer with perforation Code(s): K25.5 - Chronic or unspecified gastric ulcer with perforation Status: Acute (4) COPD (chronic obstructive pulmonary disease): Code(s): J44.9 - Chronic obstructive pulmonary disease, unspecified Status: Acute (5) Sepsis: Code(s): A41.9 - Sepsis, unspecified organism Status: Acute (6) Pneumonia: Code(s): J18.9 - Pneumonia, unspecified organism Status: Acute (7) Acute hypoxic respiratory failure: Code(s): J96.01 - Acute respiratory failure with hypoxia Status: Acute (8) Sepsis associated hypotension: Code(s): A41.9 - Sepsis, unspecified organism; I95.9 - Hypotension, unspecified Status: Acute (9) EtOH dependence: Code(s): F10.20 - Alcohol dependence, uncomplicated Status: Acute Plan Acute hypoxic respiratory failure, resolved Acute Respiratory failure secondary to sepsis, perforated gastric ulcer, general anaesthesia resolved extubated now on room air Sepsis, unspecified organism Sepsis secondary to right lower lobe pneumonia which is likely aspiration, perforated gastric ulcer and peritonitis Continue Micafungin day 08/04 and Vancomycin 06/30; Zosyn discontinued Management of perforated gastric ulcer as below Still has low-grade fever, mild leukocytosis, blood culture has no growth so far Pneumonia: CT scan shows right lower lobe pneumonia which is likely aspiration. Completed Zosyn. DEBI resolved initially, now Cr 3.0 DEBI likely secondary to sepsis hypotension, fluid shift and hypovolemia Patient received fluid resuscitation and also 25% albumin CT scan does not show any hydronephrosis or obstruction Creatinine 3.0 today, baseline normal. likely from dehydration but patient has been on IVF US renal ordered Nephrology consulted Metabolic acidosis Restarted Bicarb infusion Nephrology consulted as above Diarrhea, resolved Likely from tube feeding advance diet per surgery monitor EtOH dependence: Thiamine and folic acid ordered COPD Not in exacerbation Bronchodilators ordered Perforated gastric ulcer: Chronic or unspecified gastric ulcer with perforation Status post exploratory laparotomy, extensive lysis of adhesions, intra-abdominal washout, repair of perforated gastric ulcer with omental patch HARLEY drain placed Dressing on the surgical incision Patient is on Zosyn, Vancomycin and Micafungin Advance diet per surgery Severe protein energy malnutrition On Dronabinol 5mg bid continue pureed diet Declines tube feeding Awaiting speech therapy for possible diet advancement monitor DVT prophylaxis on Sq Lovenox PT/OT following Subjective Date/time seen: 11/19/24 12:00 Interval history: Patient on pureed diet however, still having very little intake Patient noted he does not like the pureed diet and wants to be transitioned to regular diet Speech therapy will re-evaluate today for possible diet advancement Review of Systems Review of Systems: Pt with a dry throat not talking loudly with ng tube in situ on tube feeds looks weak and tired ROS unobtainable: Yes unobtainable due to endotracheal tube, unobtainable due to medical condition and unobtainable due to mental status Exam Narrative: General: , lethargic, chronically unwell thin and disheveled with ng tube in situ Lungs/Chest: Trachea central Coarse BS B/L, No crackles or wheezing. Cardiac: RRR. Normal S1 S2. No murmurs Abdomen: Decreased but present bowel sounds. HARLEY drain in place. Soft. Tender to palpation as patient grimaces on exam. NG tube in place Extremities: No clubbing, cyanosis or edema. Warm : Shen in place Neurologic: Patient is able to move all 4 extremities spontaneously. Objective Data Vital Signs Vital Signs: Vital Signs - 24 hr 11/18/24 14:00 11/18/24 20:00 11/18/24 20:41 Temperature 98.1 F Pulse Rate 86 Respiratory Rate 18 Blood Pressure 150/70 H Pulse Oximetry 98 91 91 Oxygen Delivery Nasal Cannula Nasal Cannula Oxygen Flow Rate 2 2 11/18/24 20:41 11/18/24 21:01 11/18/24 21:54 Temperature 99.4 F Pulse Rate 85 81 84 Respiratory Rate 20 20 22 H Blood Pressure 144/78 H Pulse Oximetry 92 Oxygen Delivery Oxygen Flow Rate 11/19/24 06:00 11/19/24 07:55 11/19/24 07:55 Temperature 98.1 F Pulse Rate 79 78 78 Respiratory Rate 22 H 18 18 Blood Pressure 155/79 H Pulse Oximetry 93 94 Oxygen Delivery Nasal Cannula Oxygen Flow Rate 2 11/19/24 08:00 11/19/24 08:05 Temperature Pulse Rate 80 Respiratory Rate 18 Blood Pressure Pulse Oximetry 94 Oxygen Delivery Nasal Cannula Oxygen Flow Rate 2 Intake/Output Intake/Output: Intake & Output 11/16/24 11/17/24 11/18/24 11/19/24 23:59 23:59 23:59 23:59 Intake Total 1737.6 2911.2 1447.5 340 Output Total 100 2 30 10 Balance 1637.6 2909.2 1417.5 330 Meds/Results Medications: Active Medications Generic Name Dose Route Start Last Admin Trade Name Freq PRN Reason Stop Dose Admin Acetaminophen 650 mg 11/06/24 14:48 11/07/24 19:10 Acetaminophen 650 Mg Suppository RECTAL 650 mg Q4H PRN Administration Mild Pain (1-3) or Fever Acetaminophen 650 mg 11/14/24 15:21 Acetaminophen Elixir 325 Mg/10.15 Ml Udc FEED TUBE Q4H PRN Headache, Fever, Mild Pain Hydrocodone Bitart/Acetaminophen 1 tab 11/08/24 13:37 11/18/24 00:29 Hydrocodone/Acetaminophen (*Crx) 5-325 Mg Tablet FEED TUBE 1 tab Q4H PRN Administration Pain Rated 4-6 Acetylcysteine 200 mg 11/09/24 20:00 11/19/24 07:55 Acetylcysteine 20% Inhal Soln 800 Mg/4 Ml Vial INHALATION 200 mg Q12HRT SOURAV Administration Albuterol 2.5 mg 11/09/24 15:38 11/19/24 07:55 Albuterol Sulfate Neb 2.5 Mg/3 Ml Inh INHALATION 2.5 mg Q12HR PRN Administration Shortness Of Breath Amlodipine Besylate 5 mg 11/11/24 09:00 11/19/24 09:03 Amlodipine Besylate 5 Mg Tablet PO 5 mg DAILY SOURAV Administration Dextrose 12.5 gm 11/06/24 07:40 Dextrose 50% 25 Gm/50 Ml Syringe IV PUSH PRN PRN Hypoglycemia Protocol Dronabinol 5 mg 11/17/24 17:00 11/19/24 09:02 Dronabinol (*Crx) 2.5 Mg Capsule PO 5 mg BID SOURAV Administration Enoxaparin Sodium 30 mg 11/18/24 09:00 11/19/24 09:03 Enoxaparin 30 Mg/0.3 Ml Syringe SUB-Q 30 mg DAILY SOURAV Administration Folic Acid 1 mg 11/06/24 09:00 11/19/24 09:03 Folic Acid 1 Mg/0.2 Ml Inj IV PUSH 1 mg QAM SOURAV Administration Glucagon 1 mg 11/06/24 07:40 Glucagon For Inj 1 Mg Vial IM PRN PRN Hypoglycemia Protocol Glucose 15 gm 11/06/24 07:40 Glucose Oral Gel 15 Gm Of Glucse In 37.5 Gm Tube PO PRN PRN Hypoglycemia Protocol Hydralazine HCl 10 mg 11/10/24 09:16 11/14/24 04:17 Hydralazine Hcl 20 Mg/Ml Vial IV PUSH 10 mg Q4HR PRN Administration Blood Pressure - High Dextrose 1,000 mls @ 100 mls/hr 11/06/24 07:40 Dextrose 5% 1,000 Ml IVPB PRN PRN Hypoglycemia Protocol Micafungin Sodium 100 mg/ 100 mls @ 100 mls/hr 11/11/24 09:40 11/19/24 09:05 Sodium Chloride IVPB 11/24/24 09:59 100 mls/hr DAILY SOURAV Administration Sodium Chloride 1,000 mls @ 125 mls/hr 11/18/24 11:45 11/19/24 05:06 Normal Saline Iv IV CONT Not Given .Q8H [facility] Insulin Aspart 2 - 5 units 11/18/24 08:00 11/19/24 09:04 Insulin Aspart (*Bkc) 100 Units/Ml SUB-Q Not Given TIDWM [facility] Protocol Miscellaneous Information 1 each 11/17/24 00:01 2 Morphine Prn Orders Need To Be Renewed Or It Will Automatically Discontinue. XX 12/17/24 00:00 CL[facility]IFY [facility] Miscellaneous Information 1 each 11/17/24 00:01 Zosyn Needs To Be Renewed Or It Will Automatically Discontinue. XX 12/17/24 00:00 [facility]IFY [facility] Miscellaneous Information 1 each 11/17/24 00:01 [place] Needs To Be Renewed Or It Will Automatically Discontinue. XX 12/17/24 00:00 [facility] Morphine Sulfate 2 mg 11/08/24 07:39 Morphine Sulfate (*Crx) 2 Mg/Ml Inj IV PUSH Q2H PRN Moderate Pain (4-6) Morphine Sulfate 4 mg 11/08/24 07:39 11/19/24 09:50 Morphine Sulfate (*Crx) 4 Mg/Ml Inj IV PUSH 4 mg Q2H PRN Administration Pain Rated 7-10 Naloxone HCl 0.1 mg 11/06/24 00:01 Naloxone Hcl 0.4 Mg/Ml Vial IV PUSH Q2M PRN Opiate Reversal Ondansetron HCl 4 mg 11/06/24 00:01 Ondansetron Inj 4 Mg/2 Ml Vial IV PUSH Q4H PRN Nausea And Vomiting Pantoprazole Sodium 40 mg 11/06/24 09:00 11/19/24 09:03 Pantoprazole Sodium Iv 40 Mg Vial IV PUSH 40 mg Q12HR SOURAV Administration Thiamine HCl 100 mg 11/06/24 09:00 11/19/24 09:03 Thiamine Hcl 200 Mg/2 Ml Vial IV PUSH 100 mg QAM SOURAV Administration Vancomycin HCl 1 each 11/18/24 18:44 Vancomycin For Acute Kidney Injury IVPB PRN PRN Vancomycin Protocol Radiology Results: ITS Impressions Head CT 11/05/24 20:50 IMPRESSION: 1. Moderate nonspecific cerebral white matter disease, which likely represents chronic small vessel ischemic disease. 2. 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 Upper GI Series 11/08/24 12:17 IMPRESSION: 1. Slow gastric emptying likely related to postoperative ileus. No extraluminal leakage of contrast. Chest/Abdomen/Pelvis CT 11/10/24 10:38 IMPRESSION: 1. Small volume of ascites with mass effect on right lateral aspect of the liver, likely an exudate. 2. Small pleural effusions. 3. Wall thickening of the descending and sigmoid colon and rectum, consistent with colitis versus interstitial edema. Chest X-Ray 11/11/24 06:17 IMPRESSION: 1. Stable small pleural effusions. 2. Stable airspace opacities in the lower lung zones, consistent with atelectasis versus pneumonia. Catheter Placement CT 11/12/24 14:47 IMPRESSION: 1. Successful CT-guided right upper quadrant abdominal abscess drainage yielding yellow fluid. Modified Barium Swallow 11/13/24 12:24 IMPRESSION: 1. Laryngeal penetration. 2. Please refer to the speech therapy report for recommendations. Abdomen X-Ray 11/14/24 11:13 IMPRESSION: Nonspecific, nonobstructive bowel gas pattern. Supportive devices unchanged in position. Bilateral pleural effusions. If clinical suspicion persists, CT examination of the abdomen and pelvis (with intravenous contrast) is suggested for further evaluation. Labs Labs: Laboratory Results - last 24 hr 11/18/24 11/18/24 11/18/24 16:38 17:51 20:07 WBC RBC Hgb Hct MCV MCH MCHC RDW Plt Count MPV Immature Gran % (Auto) Neut % (Auto) Lymph % (Auto) [place] % (Auto) Eos % (Auto) Baso % (Auto) Lymph # (Auto) [place] # (Auto) Eos # (Auto) Baso # (Auto) Abs Immat Gran (auto) Absolute Neuts (auto) Absolute Nucleated RBC Nucleated RBC % Sodium Potassium Chloride Carbon Dioxide Anion Gap BUN Creatinine Estim Creat Clear Calc Estimated GFR Glucose POC Capillary Glucose 111 H 110 H Calcium Magnesium Total Bilirubin AST ALT Alkaline Phosphatase Total Protein Albumin Vancomycin Trough 42.9 H* 11/19/24 11/19/24 11/19/24 06:33 08:09 11:32 WBC 16.2 H RBC 3.50 L Hgb 10.2 L Hct 32.6 L MCV 93.1 MCH 29.1 MCHC 31.3 L RDW 15.1 H Plt Count 868 H MPV 9.9 Immature Gran % (Auto) 1.0 H Neut % (Auto) 86.5 H Lymph % (Auto) 6.0 L [place] % (Auto) 5.8 Eos % (Auto) 0.3 Baso % (Auto) 0.4 Lymph # (Auto) 0.97 [place] # (Auto) 0.9 H Eos # (Auto) 0.1 Baso # (Auto) 0.1 Abs Immat Gran (auto) 0.17 H Absolute Neuts (auto) 14.0 H Absolute Nucleated RBC 0.000 Nucleated RBC % 0.0 Sodium 142 Potassium 3.7 Chloride 116 H Carbon Dioxide 19 L Anion Gap 7 BUN 19 D Creatinine 3.00 H Estim Creat Clear Calc 15 Estimated GFR 21 L Glucose 79 POC Capillary Glucose 80 86 Calcium 7.8 L Magnesium 2.0 Total Bilirubin 0.5 AST 21 ALT 11 Alkaline Phosphatase 130 H Total Protein 6.0 L Albumin 2.6 L Vancomycin Trough Quality VTE Prophylaxis VTE prophylaxis: mechanical ordered and pharmacologic ordered
--- NOTE | 2024-11-19 12:12 | PCPTNOTE ---
Patient refused PT. Patient demonstrates increased confusion, demanding all of his belongings placed in the bed. Patient also requesting hospital supplies be placed in bed. Patient did voice understanding when informed that the hospital supplies need to stay where they were. PT will continue to follow per plan of care.
--- NOTE | 2024-11-19 12:55 | PCOTNOTE ---
Patients family present in the room at this time. Patient angry with his family due to they will not take him out of here , he states I want my belongings. Patient refuses to participate in therapy services. RN notified and aware
--- NOTE | 2024-11-19 13:03 | PM.PNGS ---
Progress Note: A&P Assessment and Plan (1) Perforated gastric ulcer: Qualifiers: Gastric ulcer chronicity: acute Qualified Code(s): K25.1 - Acute gastric ulcer with perforation Code(s): K25.5 - Chronic or unspecified gastric ulcer with perforation Status: Acute Assessment and Plan: stable, cont to encourage po, PT/OT, will likely need to go to rehab Subjective Subjective Date/Time Seen: 11/19/24 13:03 Interval history: feels ok, poor appetite Review of Systems Review of Systems: All systems reviewed & are unremarkable except as noted in HPI and below Exam Const: General: cooperative, comfortable, no acute distress and ill appearing Resp: Auscultation: clear to auscultation bilaterally Cardio: Rate: regular rate Rhythm: regular rhythm GI: Inspection: normal to inspection, non-distended and incision GI Palp: No abdominal tenderness and Yes Soft to palpation Other: HARLEY c minimal serous drainage, RUQ drain c mod serous drainage Objective Data Vital Signs Vital Signs: Vital Signs - 24 hr 11/18/24 14:00 11/18/24 20:00 11/18/24 20:41 Temperature 36.7 C Pulse Rate 86 Respiratory Rate 18 Blood Pressure 150/70 H Pulse Oximetry 98 91 91 Oxygen Delivery Nasal Cannula Nasal Cannula Oxygen Flow Rate 2 2 11/18/24 20:41 11/18/24 21:01 11/18/24 21:54 Temperature 37.4 C Pulse Rate 85 81 84 Respiratory Rate 20 20 22 H Blood Pressure 144/78 H Pulse Oximetry 92 Oxygen Delivery Oxygen Flow Rate 11/19/24 06:00 11/19/24 07:55 11/19/24 07:55 Temperature 36.7 C Pulse Rate 79 78 78 Respiratory Rate 22 H 18 18 Blood Pressure 155/79 H Pulse Oximetry 93 94 Oxygen Delivery Nasal Cannula Oxygen Flow Rate 2 11/19/24 08:00 11/19/24 08:05 Temperature Pulse Rate 80 Respiratory Rate 18 Blood Pressure Pulse Oximetry 94 Oxygen Delivery Nasal Cannula Oxygen Flow Rate 2 Intake/Output Intake/Output: Intake & Output 11/16/24 11/17/24 11/18/24 11/19/24 23:59 23:59 23:59 23:59 Intake Total 1737.6 2911.2 1447.5 340 Output Total 100 2 30 10 Balance 1637.6 2909.2 1417.5 330 Meds/Results Medications: Active Medications Generic Name Dose Route Start Last Admin Trade Name Freq PRN Reason Stop Dose Admin Acetaminophen 650 mg 11/06/24 14:48 11/07/24 19:10 Acetaminophen 650 Mg Suppository RECTAL 650 mg Q4H PRN Administration Mild Pain (1-3) or Fever Acetaminophen 650 mg 11/14/24 15:21 Acetaminophen Elixir 325 Mg/10.15 Ml Udc FEED TUBE Q4H PRN Headache, Fever, Mild Pain Hydrocodone Bitart/Acetaminophen 1 tab 11/08/24 13:37 11/18/24 00:29 Hydrocodone/Acetaminophen (*Crx) 5-325 Mg Tablet FEED TUBE 1 tab Q4H PRN Administration Pain Rated 4-6 Acetylcysteine 200 mg 11/09/24 20:00 11/19/24 07:55 Acetylcysteine 20% Inhal Soln 800 Mg/4 Ml Vial INHALATION 200 mg Q12HRT SOURAV Administration Albuterol 2.5 mg 11/09/24 15:38 11/19/24 07:55 Albuterol Sulfate Neb 2.5 Mg/3 Ml Inh INHALATION 2.5 mg Q12HR PRN Administration Shortness Of Breath Amlodipine Besylate 5 mg 11/11/24 09:00 11/19/24 09:03 Amlodipine Besylate 5 Mg Tablet PO 5 mg DAILY SOURAV Administration Dextrose 12.5 gm 11/06/24 07:40 Dextrose 50% 25 Gm/50 Ml Syringe IV PUSH PRN PRN Hypoglycemia Protocol Dronabinol 5 mg 11/17/24 17:00 11/19/24 09:02 Dronabinol (*Crx) 2.5 Mg Capsule PO 5 mg BID SOURAV Administration Enoxaparin Sodium 30 mg 11/18/24 09:00 11/19/24 09:03 Enoxaparin 30 Mg/0.3 Ml Syringe SUB-Q 30 mg DAILY SOURAV Administration Folic Acid 1 mg 11/06/24 09:00 11/19/24 09:03 Folic Acid 1 Mg/0.2 Ml Inj IV PUSH 1 mg QAM SOURAV Administration Glucagon 1 mg 11/06/24 07:40 Glucagon For Inj 1 Mg Vial IM PRN PRN Hypoglycemia Protocol Glucose 15 gm 11/06/24 07:40 Glucose Oral Gel 15 Gm Of Glucse In 37.5 Gm Tube PO PRN PRN Hypoglycemia Protocol Hydralazine HCl 10 mg 11/10/24 09:16 11/14/24 04:17 Hydralazine Hcl 20 Mg/Ml Vial IV PUSH 10 mg Q4HR PRN Administration Blood Pressure - High Dextrose 1,000 mls @ 100 mls/hr 11/06/24 07:40 Dextrose 5% 1,000 Ml IVPB PRN PRN Hypoglycemia Protocol Micafungin Sodium 100 mg/ 100 mls @ 100 mls/hr 11/11/24 09:40 11/19/24 09:05 Sodium Chloride IVPB 11/24/24 09:59 100 mls/hr DAILY SOURAV Administration Sodium Bicarbonate 100 meq/ 1,100 mls @ 125 mls/hr 11/19/24 13:00 Dextrose IV CONT .Q8H48M [facility] Insulin Aspart 2 - 5 units 11/18/24 08:00 11/19/24 12:15 Insulin Aspart (*Bkc) 100 Units/Ml SUB-Q Not Given TIDWM [facility] Protocol Morphine Sulfate 2 mg 11/08/24 07:39 Morphine Sulfate (*Crx) 2 Mg/Ml Inj IV PUSH Q2H PRN Moderate Pain (4-6) Morphine Sulfate 4 mg 11/08/24 07:39 11/19/24 09:50 Morphine Sulfate (*Crx) 4 Mg/Ml Inj IV PUSH 4 mg Q2H PRN Administration Pain Rated 7-10 Naloxone HCl 0.1 mg 11/06/24 00:01 Naloxone Hcl 0.4 Mg/Ml Vial IV PUSH Q2M PRN Opiate Reversal Ondansetron HCl 4 mg 11/06/24 00:01 Ondansetron Inj 4 Mg/2 Ml Vial IV PUSH Q4H PRN Nausea And Vomiting Pantoprazole Sodium 40 mg 11/06/24 09:00 11/19/24 09:03 Pantoprazole Sodium Iv 40 Mg Vial IV PUSH 40 mg Q12HR SOURAV Administration Thiamine HCl 100 mg 11/06/24 09:00 11/19/24 09:03 Thiamine Hcl 200 Mg/2 Ml Vial IV PUSH 100 mg QAM SOURAV Administration Vancomycin HCl 1 each 11/18/24 18:44 Vancomycin For Acute Kidney Injury IVPB 11/20/24 23:59 PRN PRN Vancomycin Protocol Radiology Results: ITS Impressions Head CT 11/05/24 20:50 IMPRESSION: 1. Moderate nonspecific cerebral white matter disease, which likely represents chronic small vessel ischemic disease. 2. 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 Upper GI Series 11/08/24 12:17 IMPRESSION: 1. Slow gastric emptying likely related to postoperative ileus. No extraluminal leakage of contrast. Chest/Abdomen/Pelvis CT 11/10/24 10:38 IMPRESSION: 1. Small volume of ascites with mass effect on right lateral aspect of the liver, likely an exudate. 2. Small pleural effusions. 3. Wall thickening of the descending and sigmoid colon and rectum, consistent with colitis versus interstitial edema. Chest X-Ray 11/11/24 06:17 IMPRESSION: 1. Stable small pleural effusions. 2. Stable airspace opacities in the lower lung zones, consistent with atelectasis versus pneumonia. Catheter Placement CT 11/12/24 14:47 IMPRESSION: 1. Successful CT-guided right upper quadrant abdominal abscess drainage yielding yellow fluid. Modified Barium Swallow 11/13/24 12:24 IMPRESSION: 1. Laryngeal penetration. 2. Please refer to the speech therapy report for recommendations. Abdomen X-Ray 11/14/24 11:13 IMPRESSION: Nonspecific, nonobstructive bowel gas pattern. Supportive devices unchanged in position. Bilateral pleural effusions. If clinical suspicion persists, CT examination of the abdomen and pelvis (with intravenous contrast) is suggested for further evaluation. Labs Labs: Laboratory Results - last 24 hr 11/18/24 11/18/24 11/18/24 16:38 17:51 20:07 WBC RBC Hgb Hct MCV MCH MCHC RDW Plt Count MPV Immature Gran % (Auto) Neut % (Auto) Lymph % (Auto) [place] % (Auto) Eos % (Auto) Baso % (Auto) Lymph # (Auto) [place] # (Auto) Eos # (Auto) Baso # (Auto) Abs Immat Gran (auto) Absolute Neuts (auto) Absolute Nucleated RBC Nucleated RBC % Sodium Potassium Chloride Carbon Dioxide Anion Gap BUN Creatinine Estim Creat Clear Calc Estimated GFR Glucose POC Capillary Glucose 111 H 110 H Calcium Magnesium Total Bilirubin AST ALT Alkaline Phosphatase Total Protein Albumin Vancomycin Trough 42.9 H* 11/19/24 11/19/24 11/19/24 06:33 08:09 11:32 WBC 16.2 H RBC 3.50 L Hgb 10.2 L Hct 32.6 L MCV 93.1 MCH 29.1 MCHC 31.3 L RDW 15.1 H Plt Count 868 H MPV 9.9 Immature Gran % (Auto) 1.0 H Neut % (Auto) 86.5 H Lymph % (Auto) 6.0 L [place] % (Auto) 5.8 Eos % (Auto) 0.3 Baso % (Auto) 0.4 Lymph # (Auto) 0.97 [place] # (Auto) 0.9 H Eos # (Auto) 0.1 Baso # (Auto) 0.1 Abs Immat Gran (auto) 0.17 H Absolute Neuts (auto) 14.0 H Absolute Nucleated RBC 0.000 Nucleated RBC % 0.0 Sodium 142 Potassium 3.7 Chloride 116 H Carbon Dioxide 19 L Anion Gap 7 BUN 19 D Creatinine 3.00 H Estim Creat Clear Calc 15 Estimated GFR 21 L Glucose 79 POC Capillary Glucose 80 86 Calcium 7.8 L Magnesium 2.0 Total Bilirubin 0.5 AST 21 ALT 11 Alkaline Phosphatase 130 H Total Protein 6.0 L Albumin 2.6 L Vancomycin Trough
[2024-11-19] MEDS: SODIUM BICARBONATE 8.4% 100 MEQ in DEXTROSE 5% 1,000 ML 1,000 ML 125 MEQ IV CONT ×2 (14:36→23:34)
--- NOTE | 2024-11-19 14:54 | P.CONNP_ITS ---
Assessment and Plan Assessment and plan (1) DEBI (acute kidney injury): Code(s): N17.9 - Acute kidney failure, unspecified Status: Acute Assessment and Plan: * initial insult on admission was due to sepsis hypotension, fluid shifts and hypovolemia * resolved with supportive therapy * second episode noted on 11/18...creatinine increased from 0.9 -> 2.2 -> 3.0mg/dl today * etiology of second episode is not clear... * recheck renal ultrasound, urine studies, and CPK * trial of IVFs initiated * follow trend of repeat labs and UOP (2) Perforated gastric ulcer: Qualifiers: Gastric ulcer chronicity: acute Qualified Code(s): K25.1 - Acute gastric ulcer with perforation Code(s): K25.5 - Chronic or unspecified gastric ulcer with perforation Status: Acute Assessment and Plan: * s/p exploratory laparotomy, extensive lysis of adhesions, intra-abdominal washout, repair of perforated gastric ulcer with omental patch * on antibiotics * local wound care * Surgery following (3) Hypertension: Code(s): I10 - Essential (primary) hypertension Status: Chronic Assessment and Plan: * as noted by recent BP readings * likely an undiagnosed condition * follow trend of hemodynamics (4) COPD (chronic obstructive pulmonary disease): Code(s): J44.9 - Chronic obstructive pulmonary disease, unspecified Status: Acute Assessment and Plan: * not in exacerbation * bronchodilators as needed (5) Severe protein-calorie malnutrition: Code(s): E43 - Unspecified severe protein-calorie malnutrition Status: Acute Assessment and Plan: * on dronabinol 5mg bid * advance diet as tolerated (6) EtOH dependence: Code(s): F10.20 - Alcohol dependence, uncomplicated Status: Acute Assessment and Plan: * known history * continue thiamine and folic acid I will continue to follow the patient with you while he remains hospitalized and make further recommendations as deemed necessary. Thank you for allowing me to participate in the care of this patient. L History of Present Illness Reason for Consult Consult date: 11/19/24 Reason for consult: acute renal failure Chief Complaint Chief complaint: Perforated viscus History of Present Illness Narrative: Almost all the information I have obtained is from review of the electronic medical record as well as discussion with the physician/nurses involved in the patient's care as the patient is a poor historian and does not recall a great many of the events that led to his admission to the hospital. The patient is a 69-year-old male with a past medical history as outlined below who presented to [facility] about 2 weeks ago for respiratory distress and abdominal pain. The patient had been recently admitted to the hospital and subsequently discharged for abdominal pain with a negative workup and evaluation. Apparently, About an hour prior to his re-presentation to the emergency room, EMS was called as he apparently was found gasping for breath in association with altered mental status. he apparently was intubated in the field prior to his arrival to the ER. Upon arrival to the emergency room, he was noted be hypotensive and despite aggressive IV fluid resuscitation, he remained hypotensive. A right femoral central line was placed emergently for further IV fluids and vasopressor therapy. routine blood test demonstrated a mildly elevated white blood cell count with a normal hemoglobin platelet count and his chemistry was otherwise unremarkable aside from an elevated BUN and creatinine consistent with acute kidney injury/ acute renal failure. His lactic acid was noted to be 6.9. Subsequent CT scan of the abdomen pelvis demonstrated free air and perforated viscus with resultant general surgery consultation. He was subsequently taken to the operating room urgently and underwent exploratory laparotomy, extensive lysis of adhesions, intra-abdominal washout, and repair of the perforated gastric ulcer that was discovered with an omental patch. He was subsequently admitted to the intensive care unit post procedure for further evaluation therapy. Since his admission, he is able to be weaned off the ventilator and his hemodynamics stabilized as well. His acute kidney injury/ acute renal failure resolved with aggressive supportive therapy. Eventually, he was transferred to the floor for ongoing therapy and optimization of his nutritional status. Unfortunately, as noted by the trend of his labs in the last 24 hours, he has developed acute kidney injury/acute renal failure again. Renal consultation was requested due to his acute kidney injury/acute renal failure clear of as mentioned above, on his admission, the patient had acute kidney injury/acute renal failure most likely secondary to his perforated viscus and associated lactic acidosis and sepsis. His renal function eventually normalized with supportive therapy. However, as noted by labs done on 11/18, his creatinine worsened from a normal baseline creatinine of 0.9 mg/dL to 2.2 mg/dL and increased to 3.0 mg/dL by labs done this morning. He has no associated critical electrolyte abnormalities and he still appears to be making reasonable urine output although it is difficult to tell with certainty given poor documentation of his input and outputs related to his urinary incontinence. It has been well documented that his oral intake is quite poor presumably secondary to his recent abdominal surgery and associated bowel issues including a recent ileus requiring NG tube placement/suction. Currently, at the time my evaluation, he appears to be in no acute distress. Review of Systems 2 Review of Systems: As per HPI. [facility] Past Medical History Medical History (Updated 11/25/24 @ 22:06 by Clifton Grant MD) Sepsis Free intraperitoneal air EtOH dependence Dehydration Gastroenteritis Hoarseness or changing voice Nicotine abuse Bladder cancer Surgical History Surgical History History of bladder surgery Family History Family History Father Acute myocardial infarction Chronic obstructive pulmonary disease Congestive heart failure Mother Acute myocardial infarction Asthma Chronic obstructive pulmonary disease Congestive heart failure Sibling History of blood clots Diabetes mellitus Hypertension Social History Social History Smoking packs per day: 2.5 Smoking cigarettes per day: 50.0 Years smoked: 57 Smoking pack-years: 142.50 Smoking status: Former smoker Second hand tobacco smoke exposure: Yes Alcohol intake: current Drinks per week: 6 Alcohol use details: Patient reports drinking 1-2 times monthly and drinking approximately 6 beers at a time. Substance use: never Substance use type: does not use Do You Feel Safe in your Home?: Yes Lack of Transportation: No Lack of Food: Never True Current Housing: I Have Housing Concerned About Future Housing: No Difficulty Paying Gas/Electric Bills: No Difficulty Paying for Meds: No Currently Unemployed: No Education: Decline to Answer Difficulty w/ Childcare or Family Care: No Spiritual care concerns: No Meds Home Medications and Allergies Home Medications ?Medication ?Instructions ?Recorded ?Confirmed ?Type No Home Medications 07/20/24 11/06/24 History Allergies Allergy/AdvReac Type Severity Reaction Status Date / Time No Known Allergies Allergy Verified 11/04/24 04:19 Vital Signs Vital Signs 11/18/24 05:58 11/18/24 08:19 11/18/24 08:19 Temperature 98.3 F Pulse Rate 78 Respiratory Rate 20 Blood Pressure Pulse Oximetry 92 Oxygen Delivery Room Air Oxygen Flow Rate 11/18/24 08:33 11/18/24 14:00 11/18/24 20:00 Temperature 98.1 F Pulse Rate 82 86 Respiratory Rate 20 18 Blood Pressure 150/70 H Pulse Oximetry 98 91 Oxygen Delivery Nasal Cannula Oxygen Flow Rate 2 11/18/24 20:41 11/18/24 20:41 11/18/24 21:01 Temperature Pulse Rate 85 81 Respiratory Rate 20 20 Blood Pressure Pulse Oximetry 91 Oxygen Delivery Nasal Cannula Oxygen Flow Rate 2 11/18/24 21:54 11/19/24 06:00 11/19/24 07:55 Temperature 99.4 F 98.1 F Pulse Rate 84 79 78 Respiratory Rate 22 H 22 H 18 Blood Pressure 144/78 H 155/79 H Pulse Oximetry 92 93 94 Oxygen Delivery Nasal Cannula Oxygen Flow Rate 2 11/19/24 07:55 11/19/24 08:00 11/19/24 08:05 Temperature Pulse Rate 78 80 Respiratory Rate 18 18 Blood Pressure Pulse Oximetry 94 Oxygen Delivery Nasal Cannula Oxygen Flow Rate 2 11/19/24 14:00 Temperature 98.6 F Pulse Rate 81 Respiratory Rate 26 H Blood Pressure 149/85 H Pulse Oximetry 94 Oxygen Delivery Oxygen Flow Rate Exam 2 Narrative: GENERAL APPEARANCE: chronically ill-appearing thin male in no acute distress HEENT: normocephalic, atraumatic, normal conjunctiva and sclera, nares patient NECK: no lymphadenopathy, thyromegaly, or JVD MOUTH: normal lips, teeth, and gums CARDIOVASCULAR: RRR, normal S1 and S2, no rub RESPIRATORY: clear to auscultation bilaterally ABDOMEN: soft, mild TTP, nondistended, positive bowel sounds present EXTREMITIES: no evidence of cyanosis, clubbing, or edema NEUROLOGICAL: alert and oriented x 3; CN II - XII intact bilaterally; no focal deficits noted Results Lab Results 11/25/24 07:53 11/25/24 07:53 Lab results: Most recent lab results ABG pH 7.544 (7.350-7.450) H* 11/07/24 08:30 ABG pCO2 31.3 mmHg (35.0-45.0) L 11/07/24 08:30 ABG pO2 80.5 mmHg (80.0-100.0) 11/07/24 08:30 ABG HCO3 26.4 mEq/l (22.0-26.0) H 11/07/24 08:30 ABG O2 Saturation 97.1 % (95.0-100.0) 11/07/24 08:30 Calcium 7.8 mg/dL (8.4-10.2) L 11/19/24 06:33 Phosphorus 4.3 mg/dL (2.5-4.5) 11/10/24 06:22 Magnesium 2.0 mg/dL (1.6-2.3) 11/19/24 06:33
[2024-11-19 16:48] LABS: Glucose Point of Care 124 mg/dl (65-105)
[2024-11-19] MEDS: PHENYLEPHRINE HCL/COCOA BUTTER SUPP.RECT (*BKC) 1 SUPP RECTAL (18:33)
[2024-11-19 18:53] LABS: Vancomycin Random 29.8 ug/mL (10-20)
[2024-11-19 20:33] LABS: Glucose Point of Care 146 mg/dl (65-105)
[2024-11-20] VITALS (7 sets, daily range): BP systolic 150–177; BP diastolic 76–91; PULSE 78–90; RESP 18–22; TEMP 36.7–37.2; O2SAT 90–95
[2024-11-20 06:39] LABS: Basophils Absolute Auto 0.1 K/mm3 (0.0-0.1); Basophils Percent Auto 0.4 % (0.2-1.2); Eosinophils Absolute Auto 0.1 K/mm3 (0-0.3); Eosinophils Percent Auto 0.4 % (0-4.4); Hematocrit 31.4 % (42.0-52.0); Hemoglobin 9.7 g/dL (14.0-18.0); Immature Granulocyte Absolute 0.21 K/mm3 (0.00-0.031); Immature Granulocyte Percent A 1.3 % (0-0.5); Lymphocytes Absolute Auto 0.85 K/mm3 (0.9-3.2); Lymphocytes Percent Auto 5.3 % (18.3-44.2); Mean Corpuscular HGB Conc 30.9 g/dl (32-36); Mean Corpuscular Hemoglobin 28.9 pg (26-34); Mean Corpuscular Volume 93.5 fl (80-100); Mean Platelet Volume 9.8 fl (7.4-10.4); Neutrophils Absolute Auto 13.8 K/mm3 (1.3-6.7); Neutrophils Percent Auto 86.6 % (45.5-73.1); Platelet Count Result 821 k/mm3 (150-375); Red Blood Count 3.36 M/mm3 (4.6-6.20); Red Cell Distribution Width 14.9 % (11.5-14.5); White Blood Count 15.9 K/mm3 (4.5-10.0)
[2024-11-20 06:49] LABS: Lactic Acid Reflex 0.7 mmol/L (0.7-2.0)
[2024-11-20 06:50] LABS: Alanine Aminotransferase 10 U/L (6-50); Albumin Level 2.5 g/dL (3.5-5.1); Alkaline Phosphatase 111 U/L (38-126); Anion Gap 1 mmol/L (4-12); Aspartate Amino Transferase 20 U/L (17-59); Bilirubin,Total 0.3 mg/dL (0.2-1.3); Blood Urea Nitrogen 21 mg/dL (9-20); Calcium 7.4 mg/dL (8.4-10.2); Carbon Dioxide 25 mmol/L (22-30); Chloride 112 mmol/L (98-107); Creatine Kinase < 20 U/L (55-170); Estimated CRCL calculation 16 ml/min; Estimated Glomerular Filt Rate 20; Glucose 134 mg/dL (65-110); Potassium 3.3 mmol/L (3.4-5.0); Sodium 138 mmol/L (137-145)
[2024-11-20 07:35] LABS: Glucose Point of Care 166 mg/dl (65-105)
[2024-11-20] MEDS: ACETYLCYSTEINE 20% INHAL SOLN 800 MG/4 ML VIAL 200 MG INHALATION (08:03)
[2024-11-20] MEDS: ALBUTEROL SULFATE NEB 2.5 MG/3 ML INH INHALATION (08:03)
[2024-11-20] MEDS: POTASSIUM CHLORIDE 20 MEQ PACKET (FOR LIQUID) PO (08:42)
[2024-11-20] MEDS: amLODIPine BESYLATE 5 MG TABLET PO (08:51)
[2024-11-20] MEDS: droNABinol (*CRX) 2.5 MG CAPSULE 5 MG PO ×2 (08:52→16:32)
[2024-11-20] MEDS: SODIUM CHLORIDE 0.9% IV 1,000 ML 75 ML IV CONT (08:56)
[2024-11-20] MEDS: PANTOPRAZOLE SODIUM IV 40 MG VIAL IV PUSH ×2 (08:59→20:32)
[2024-11-20] MEDS: THIAMINE HCL 200 MG/2 ML VIAL 100 MG IV PUSH (08:59)
[2024-11-20] MEDS: MICAFUNGIN SODIUM 100 MG in SODIUM CHLORIDE 0.9% IV 100 ML IVPB (09:00)
[2024-11-20] MEDS: ENOXAPARIN 30 MG/0.3 ML SYRINGE SUB-Q (09:00)
[2024-11-20] MEDS: FOLIC ACID 1 MG/0.2 ML INJ IV PUSH (09:01)
--- NOTE | 2024-11-20 09:56 | PCOTNOTE ---
Patient refused therapy services this A.M. Patient states he is having increased abdominal pain, the doctor is ordering tests on me .
--- NOTE | 2024-11-20 10:29 | PM.IMPN ---
Progress Note: A&P Assessment and Plan (1) Metabolic acidosis: Code(s): E87.20 - Acidosis, unspecified Status: Acute Assessment and Plan: Gradually improving, will continue current treatment and monitor. (2) DEBI (acute kidney injury): Code(s): N17.9 - Acute kidney failure, unspecified Status: Acute Assessment and Plan: Creatinine stable around 3. Kidney ultrasound medical disease (3) Perforated gastric ulcer: Qualifiers: Gastric ulcer chronicity: acute Qualified Code(s): K25.1 - Acute gastric ulcer with perforation Code(s): K25.5 - Chronic or unspecified gastric ulcer with perforation Status: Acute Assessment and Plan: Continue with Protonix and monitor hgb (4) COPD (chronic obstructive pulmonary disease): Code(s): J44.9 - Chronic obstructive pulmonary disease, unspecified Status: Acute Assessment and Plan: Stable on current medications. Will continue current treatment. (5) Sepsis: Code(s): A41.9 - Sepsis, unspecified organism Status: Acute Assessment and Plan: Continue antibiotics and monitor cultures (6) Pneumonia: Code(s): J18.9 - Pneumonia, unspecified organism Status: Acute Assessment and Plan: Continue antibiotics gradually getting better (7) Acute hypoxic respiratory failure: Code(s): J96.01 - Acute respiratory failure with hypoxia Status: Acute Assessment and Plan: Better and improving (8) Sepsis associated hypotension: Code(s): A41.9 - Sepsis, unspecified organism; I95.9 - Hypotension, unspecified Status: Acute Assessment and Plan: Continue IV antibiotics and monitor cultures (9) EtOH dependence: Code(s): F10.20 - Alcohol dependence, uncomplicated Status: Acute Assessment and Plan: Counselling given Plan Code status full DVT prophylaxis on Sq Lovenox PT/OT following Subjective Date/time seen: 11/20/24 10:29 Interval history: Patient was seen during the morning rounds today. Feeling slightly better. No sob or chest pain Review of Systems Review of Systems: Pt with a dry throat not talking loudly with ng tube in situ on tube feeds looks weak and tired ROS unobtainable: Yes unobtainable due to endotracheal tube, unobtainable due to medical condition and unobtainable due to mental status Exam Narrative: General: More alert toady Lungs/Chest: Trachea central Coarse BS B/L, No crackles or wheezing. Cardiac: RRR. Normal S1 S2. No murmurs Abdomen: Decreased but present bowel sounds. HARLEY drain in place. Soft. Tender to palpation as patient grimaces on exam. Extremities: No clubbing, cyanosis or edema. Warm : Shen in place Neurologic: Patient is able to move all 4 extremities spontaneously. Objective Data Vital Signs Vital Signs: Vital Signs - 24 hr 11/19/24 14:00 11/19/24 21:02 11/19/24 21:07 Temperature 37.0 C Pulse Rate 81 79 Respiratory Rate 26 H 18 Blood Pressure 149/85 H Pulse Oximetry 94 93 Oxygen Delivery Nasal Cannula Oxygen Flow Rate 2 11/19/24 21:15 11/19/24 21:20 11/20/24 06:00 Temperature 37.6 C 37.2 C Pulse Rate 86 81 90 Respiratory Rate 22 H 18 22 H Blood Pressure 154/81 H 177/91 H Pulse Oximetry 93 90 Oxygen Delivery Oxygen Flow Rate 11/20/24 08:04 11/20/24 08:04 11/20/24 08:18 Temperature Pulse Rate 79 78 Respiratory Rate 20 20 Blood Pressure Pulse Oximetry 94 Oxygen Delivery Nasal Cannula Oxygen Flow Rate 2 Intake/Output Intake/Output: Intake & Output 11/17/24 11/18/24 11/19/24 11/20/24 23:59 23:59 23:59 23:59 Intake Total 2911.2 1447.5 2040 100 Output Total 2 30 10 200 Balance 2909.2 1417.5 2030 -100 Meds/Results Medications: Active Medications Generic Name Dose Route Start Last Admin Trade Name Freq PRN Reason Stop Dose Admin Acetaminophen 650 mg 11/06/24 14:48 11/07/24 19:10 Acetaminophen 650 Mg Suppository RECTAL 650 mg Q4H PRN Administration Mild Pain (1-3) or Fever Acetaminophen 650 mg 11/14/24 15:21 Acetaminophen Elixir 325 Mg/10.15 Ml Udc FEED TUBE Q4H PRN Headache, Fever, Mild Pain Hydrocodone Bitart/Acetaminophen 1 tab 11/08/24 13:37 11/18/24 00:29 Hydrocodone/Acetaminophen (*Crx) 5-325 Mg Tablet FEED TUBE 1 tab Q4H PRN Administration Pain Rated 4-6 Acetylcysteine 200 mg 11/09/24 20:00 11/20/24 08:03 Acetylcysteine 20% Inhal Soln 800 Mg/4 Ml Vial INHALATION 200 mg Q12HRT SOURAV Administration Albuterol 2.5 mg 11/09/24 15:38 11/20/24 08:03 Albuterol Sulfate Neb 2.5 Mg/3 Ml Inh INHALATION 2.5 mg Q12HR PRN Administration Shortness Of Breath Amlodipine Besylate 5 mg 11/11/24 09:00 11/20/24 08:51 Amlodipine Besylate 5 Mg Tablet PO 5 mg DAILY SOURAV Administration Dextrose 12.5 gm 11/06/24 07:40 Dextrose 50% 25 Gm/50 Ml Syringe IV PUSH PRN PRN Hypoglycemia Protocol Dronabinol 5 mg 11/17/24 17:00 11/20/24 08:52 Dronabinol (*Crx) 2.5 Mg Capsule PO 5 mg BID SOURAV Administration Enoxaparin Sodium 30 mg 11/18/24 09:00 11/20/24 09:00 Enoxaparin 30 Mg/0.3 Ml Syringe SUB-Q 30 mg DAILY SOURAV Administration Folic Acid 1 mg 11/06/24 09:00 11/20/24 09:01 Folic Acid 1 Mg/0.2 Ml Inj IV PUSH 1 mg QAM SOURAV Administration Glucagon 1 mg 11/06/24 07:40 Glucagon For Inj 1 Mg Vial IM PRN PRN Hypoglycemia Protocol Glucose 15 gm 11/06/24 07:40 Glucose Oral Gel 15 Gm Of Glucse In 37.5 Gm Tube PO PRN PRN Hypoglycemia Protocol Hydralazine HCl 10 mg 11/10/24 09:16 11/14/24 04:17 Hydralazine Hcl 20 Mg/Ml Vial IV PUSH 10 mg Q4HR PRN Administration Blood Pressure - High Dextrose 1,000 mls @ 100 mls/hr 11/06/24 07:40 Dextrose 5% 1,000 Ml IVPB PRN PRN Hypoglycemia Protocol Micafungin Sodium 100 mg/ 100 mls @ 100 mls/hr 11/11/24 09:40 11/20/24 09:00 Sodium Chloride IVPB 11/24/24 09:59 100 mls/hr DAILY SOURAV Administration Sodium Chloride 1,000 mls @ 75 mls/hr 11/20/24 07:20 11/20/24 08:56 Normal Saline Iv IV CONT 75 mls/hr .[id number] SOURAV Administration Insulin Aspart 2 - 5 units 11/18/24 08:00 11/20/24 08:57 Insulin Aspart (*Bkc) 100 Units/Ml SUB-Q Not Given TIDWM [facility] Protocol Morphine Sulfate 2 mg 11/08/24 07:39 Morphine Sulfate (*Crx) 2 Mg/Ml Inj IV PUSH Q2H PRN Moderate Pain (4-6) Morphine Sulfate 4 mg 11/08/24 07:39 11/19/24 09:50 Morphine Sulfate (*Crx) 4 Mg/Ml Inj IV PUSH 4 mg Q2H PRN Administration Pain Rated 7-10 Naloxone HCl 0.1 mg 11/06/24 00:01 Naloxone Hcl 0.4 Mg/Ml Vial IV PUSH Q2M PRN Opiate Reversal Ondansetron HCl 4 mg 11/06/24 00:01 Ondansetron Inj 4 Mg/2 Ml Vial IV PUSH Q4H PRN Nausea And Vomiting Pantoprazole Sodium 40 mg 11/06/24 09:00 11/20/24 08:59 Pantoprazole Sodium Iv 40 Mg Vial IV PUSH 40 mg Q12HR SOURAV Administration Phenyleph/Shark Oil/[place] Butter 1 supp 11/19/24 18:18 11/19/24 18:33 Phenylephrine Hcl/[place] Butter Supp.Rect (*Bkc) RECTAL 1 supp Q12HR PRN Administration Hemorrhoids Potassium Chloride 20 meq 11/20/24 10:28 Potassium Chloride 20 Meq Er Tablet PO 11/20/24 10:29 ONCE ONE Thiamine HCl 100 mg 11/06/24 09:00 11/20/24 08:59 Thiamine Hcl 200 Mg/2 Ml Vial IV PUSH 100 mg QAM SOURAV Administration Vancomycin HCl 1 each 11/18/24 18:44 Vancomycin For Acute Kidney Injury IVPB 11/20/24 23:59 PRN PRN Vancomycin Protocol Radiology Results: ITS Impressions Head CT 11/05/24 20:50 IMPRESSION: 1. Moderate nonspecific cerebral white matter disease, which likely represents chronic small vessel ischemic disease. 2. 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 Upper GI Series 11/08/24 12:17 IMPRESSION: 1. Slow gastric emptying likely related to postoperative ileus. No extraluminal leakage of contrast. Chest/Abdomen/Pelvis CT 11/10/24 10:38 IMPRESSION: 1. Small volume of ascites with mass effect on right lateral aspect of the liver, likely an exudate. 2. Small pleural effusions. 3. Wall thickening of the descending and sigmoid colon and rectum, consistent with colitis versus interstitial edema. Chest X-Ray 11/11/24 06:17 IMPRESSION: 1. Stable small pleural effusions. 2. Stable airspace opacities in the lower lung zones, consistent with atelectasis versus pneumonia. Catheter Placement CT 11/12/24 14:47 IMPRESSION: 1. Successful CT-guided right upper quadrant abdominal abscess drainage yielding yellow fluid. Modified Barium Swallow 11/13/24 12:24 IMPRESSION: 1. Laryngeal penetration. 2. Please refer to the speech therapy report for recommendations. Abdomen X-Ray 11/14/24 11:13 IMPRESSION: Nonspecific, nonobstructive bowel gas pattern. Supportive devices unchanged in position. Bilateral pleural effusions. If clinical suspicion persists, CT examination of the abdomen and pelvis (with intravenous contrast) is suggested for further evaluation. Renal Ultrasound 11/19/24 16:17 IMPRESSION: No hydronephrosis or renal calculi. Findings suggesting medical renal disease. Free fluid within the pelvis. Labs Labs: Laboratory Results - last 24 hr 11/19/24 11/19/24 11/19/24 11:32 16:43 18:04 WBC RBC Hgb Hct MCV MCH MCHC RDW Plt Count MPV Immature Gran % (Auto) Neut % (Auto) Lymph % (Auto) [place] % (Auto) Eos % (Auto) Baso % (Auto) Lymph # (Auto) [place] # (Auto) Eos # (Auto) Baso # (Auto) Abs Immat Gran (auto) Absolute Neuts (auto) Absolute Nucleated RBC Nucleated RBC % Sodium Potassium Chloride Carbon Dioxide Anion Gap BUN Creatinine Estim Creat Clear Calc Estimated GFR Glucose POC Capillary Glucose 86 124 H Lactic Acid Calcium Magnesium Total Bilirubin AST ALT Alkaline Phosphatase Total Creatine Kinase Total Protein Albumin Random Vancomycin 29.8 H 11/19/24 11/20/24 11/20/24 20:23 06:30 07:25 WBC 15.9 H RBC 3.36 L Hgb 9.7 L Hct 31.4 L MCV 93.5 MCH 28.9 MCHC 30.9 L RDW 14.9 H Plt Count 821 H MPV 9.8 Immature Gran % (Auto) 1.3 H Neut % (Auto) 86.6 H Lymph % (Auto) 5.3 L [place] % (Auto) 6.0 Eos % (Auto) 0.4 Baso % (Auto) 0.4 Lymph # (Auto) 0.85 L [place] # (Auto) 1.0 H Eos # (Auto) 0.1 Baso # (Auto) 0.1 Abs Immat Gran (auto) 0.21 H Absolute Neuts (auto) 13.8 H Absolute Nucleated RBC 0.000 Nucleated RBC % 0.0 Sodium 138 Potassium 3.3 L Chloride 112 H Carbon Dioxide 25 Anion Gap 1 L BUN 21 H Creatinine 3.10 H Estim Creat Clear Calc 16 Estimated GFR 20 L Glucose 134 H POC Capillary Glucose 146 H 166 H Lactic Acid 0.7 Calcium 7.4 L Magnesium 2.0 Total Bilirubin 0.3 AST 20 ALT 10 Alkaline Phosphatase 111 Total Creatine Kinase < 20 L Total Protein 6.0 L Albumin 2.5 L Random Vancomycin Quality VTE Prophylaxis VTE prophylaxis: mechanical ordered and pharmacologic ordered
[2024-11-20 10:47] LABS: Add Urine Microscopic? YES; Appearance Urine Cloudy (Clear); Bacteria Urine None Seen /hpf; Bilirubin Urine Negative (Negative); Blood Urine Trace (Negative); Color Urine Yellow (Yellow); Glucose Urine UA Negative (Negative); Ketones Urine Negative (Negative); Leukocyte Esterase Ur Negative LEU/UL (Negative); Need Manual Microscopic Reviewed; Nitrate Urine Negative (Negative); Protein Urine 2+ mg/dL (Negative); RBC Urine 0-2 /hpf (0-2); Specific Grav Ur 1.009 (1.001-1.035); Squamous Epithelial Cell Urine Few /hpf (Few); Urobilinogen Urine 0.2 mg/dL (<2.0); WBC Urine 0-5 /hpf (0-3); pH Urine 5.5 (5.0-9.0)
[2024-11-20 10:51] LABS: Creatinine Urine 72.6 mg/dL; Total Protein Urine Random 101 mg/dL; Ur Ttl Prot Creatinine Ratio 1.36 mg/mg (0-0.20)
[2024-11-20 10:53] LABS: Total Protein Urine Random 100 mg/dL; Urea Random Urine 275 MG/DL
[2024-11-20 10:54] LABS: Sodium Urine Random 22 meq/L
--- NOTE | 2024-11-20 10:57 | P.PNNP_ITS ---
Progress Note: A&P Assessment and Plan (1) DEBI (acute kidney injury): Code(s): N17.9 - Acute kidney failure, unspecified Status: Acute Assessment and Plan: * initial insult on admission was due to sepsis hypotension, fluid shifts and hypovolemia * resolved with supportive therapy * second episode noted on 11/18...creatinine increased from 0.9 -> 2.2 -> 3.0mg/dl today * etiology of second episode is not entirely clear... * evaluation to date noted: * renal ultrasound without obstruction but with medical renal disease * urine electrolytes prerenal * UA not indicative of infection * urine eosinophils negative * mild proteiuria noted (~ 1300mg proteinuria) * CPK low * continue trial of IVFs * follow trend of repeat labs and UOP (2) Perforated gastric ulcer: Qualifiers: Gastric ulcer chronicity: acute Qualified Code(s): K25.1 - Acute gastric ulcer with perforation Code(s): K25.5 - Chronic or unspecified gastric ulcer with perforation Status: Acute Assessment and Plan: * s/p exploratory laparotomy, extensive lysis of adhesions, intra-abdominal washout, repair of perforated gastric ulcer with omental patch * on antibiotics * local wound care * Surgery following (3) Hypertension: Code(s): I10 - Essential (primary) hypertension Status: Chronic Assessment and Plan: * as noted by recent BP readings * likely an undiagnosed condition * follow trend of hemodynamics (4) COPD (chronic obstructive pulmonary disease): Code(s): J44.9 - Chronic obstructive pulmonary disease, unspecified Status: Acute Assessment and Plan: * not in exacerbation * bronchodilators as needed (5) Severe protein-calorie malnutrition: Code(s): E43 - Unspecified severe protein-calorie malnutrition Status: Acute Assessment and Plan: * on dronabinol 5mg bid * advance diet as tolerated (6) EtOH dependence: Code(s): F10.20 - Alcohol dependence, uncomplicated Status: Acute Assessment and Plan: * known history * continue thiamine and folic acid Will continue to follow. L Subjective Date/time seen: 11/20/24 10:57 Interval history: Follow-up for acute kidney injury/acute renal failure. No apparent distress noted at ths time of my visit; still with suboptimal oral intake at this time; however, no other acute complaints voiced; no improvement in renal function/creatinine; no issues/events overnight or earlier this morning. Exam 2 Narrative: General: elderly male in NAD Heart: normal S1 and S2; no rub Lungs: clear anteriorly Abdomen: mild TTP and distension; decreased bowel sounds Extremities: no cyanosis or clubbing; no edema Skin: warm and dry Objective Data Vital Signs Vital Signs: Vital Signs Temp Pulse Resp BP Pulse Ox O2 Del Method O2 Flow Rate 11/20/24 10:00 98.1 F 80 18 153/76 H 95 11/20/24 08:18 78 20 11/20/24 08:04 79 20 11/20/24 08:04 94 Nasal Cannula 2 11/20/24 08:00 94 Nasal Cannula 2 11/20/24 06:00 98.9 F 90 22 H 177/91 H 90 11/19/24 21:20 81 18 11/19/24 21:15 99.6 F 86 22 H 154/81 H 93 11/19/24 21:07 93 Nasal Cannula 2 11/19/24 21:02 79 18 Intake/Output Intake/Output: Intake & Output 11/17/24 11/18/24 11/19/24 11/20/24 23:59 23:59 23:59 23:59 Intake Total 2911.2 1447.5 2040 100 Output Total 2 30 10 300 Balance 2909.2 1417.5 2030 -200 Meds/Results Medications: Active Medications Generic Name Dose Route Start Last Admin Trade Name Freq PRN Reason Stop Dose Admin Acetaminophen 650 mg 11/06/24 14:48 11/07/24 19:10 Acetaminophen 650 Mg Suppository RECTAL 650 mg Q4H PRN Administration Mild Pain (1-3) or Fever Acetaminophen 650 mg 11/14/24 15:21 Acetaminophen Elixir 325 Mg/10.15 Ml Udc FEED TUBE Q4H PRN Headache, Fever, Mild Pain Hydrocodone Bitart/Acetaminophen 1 tab 11/08/24 13:37 11/18/24 00:29 Hydrocodone/Acetaminophen (*Crx) 5-325 Mg Tablet FEED TUBE 1 tab Q4H PRN Administration Pain Rated 4-6 Acetylcysteine 200 mg 11/09/24 20:00 11/20/24 08:03 Acetylcysteine 20% Inhal Soln 800 Mg/4 Ml Vial INHALATION 200 mg Q12HRT SOURAV Administration Albuterol 2.5 mg 11/09/24 15:38 11/20/24 08:03 Albuterol Sulfate Neb 2.5 Mg/3 Ml Inh INHALATION 2.5 mg Q12HR PRN Administration Shortness Of Breath Amlodipine Besylate 5 mg 11/11/24 09:00 11/20/24 08:51 Amlodipine Besylate 5 Mg Tablet PO 5 mg DAILY SOURAV Administration Dextrose 12.5 gm 11/06/24 07:40 Dextrose 50% 25 Gm/50 Ml Syringe IV PUSH PRN PRN Hypoglycemia Protocol Dronabinol 5 mg 11/17/24 17:00 11/20/24 08:52 Dronabinol (*Crx) 2.5 Mg Capsule PO 5 mg BID SOURAV Administration Enoxaparin Sodium 30 mg 11/18/24 09:00 11/20/24 09:00 Enoxaparin 30 Mg/0.3 Ml Syringe SUB-Q 30 mg DAILY SOURAV Administration Folic Acid 1 mg 11/06/24 09:00 11/20/24 09:01 Folic Acid 1 Mg/0.2 Ml Inj IV PUSH 1 mg QAM SOURAV Administration Glucagon 1 mg 11/06/24 07:40 Glucagon For Inj 1 Mg Vial IM PRN PRN Hypoglycemia Protocol Glucose 15 gm 11/06/24 07:40 Glucose Oral Gel 15 Gm Of Glucse In 37.5 Gm Tube PO PRN PRN Hypoglycemia Protocol Hydralazine HCl 10 mg 11/10/24 09:16 11/14/24 04:17 Hydralazine Hcl 20 Mg/Ml Vial IV PUSH 10 mg Q4HR PRN Administration Blood Pressure - High Hydrocortisone/Pramoxine 1 applic 11/20/24 21:00 Hydrocortisone/Pramoxine 2.5% 30 Gm Cream RECTAL 11/24/24 08:00 Q12HR SOURAV Dextrose 1,000 mls @ 100 mls/hr 11/06/24 07:40 Dextrose 5% 1,000 Ml IVPB PRN PRN Hypoglycemia Protocol Micafungin Sodium 100 mg/ 100 mls @ 100 mls/hr 11/11/24 09:40 11/20/24 09:00 Sodium Chloride IVPB 11/24/24 09:59 100 mls/hr DAILY SOURAV Administration Sodium Chloride 1,000 mls @ 75 mls/hr 11/20/24 07:20 11/20/24 08:56 Normal Saline Iv IV CONT 75 mls/hr .[id number] SOURAV Administration Insulin Aspart 2 - 5 units 11/18/24 08:00 11/20/24 11:43 Insulin Aspart (*Bkc) 100 Units/Ml SUB-Q Not Given TIDWM [facility] Protocol Morphine Sulfate 2 mg 11/08/24 07:39 Morphine Sulfate (*Crx) 2 Mg/Ml Inj IV PUSH Q2H PRN Moderate Pain (4-6) Morphine Sulfate 4 mg 11/08/24 07:39 11/19/24 09:50 Morphine Sulfate (*Crx) 4 Mg/Ml Inj IV PUSH 4 mg Q2H PRN Administration Pain Rated 7-10 Naloxone HCl 0.1 mg 11/06/24 00:01 Naloxone Hcl 0.4 Mg/Ml Vial IV PUSH Q2M PRN Opiate Reversal Ondansetron HCl 4 mg 11/06/24 00:01 Ondansetron Inj 4 Mg/2 Ml Vial IV PUSH Q4H PRN Nausea And Vomiting Pantoprazole Sodium 40 mg 11/06/24 09:00 11/20/24 08:59 Pantoprazole Sodium Iv 40 Mg Vial IV PUSH 40 mg Q12HR SOURAV Administration Phenyleph/Shark Oil/Carbon Butter 1 supp 11/19/24 18:18 11/19/24 18:33 Phenylephrine Hcl/Carbon Butter Supp.Rect (*Bkc) RECTAL 1 supp Q12HR PRN Administration Hemorrhoids Thiamine HCl 100 mg 11/06/24 09:00 11/20/24 08:59 Thiamine Hcl 200 Mg/2 Ml Vial IV PUSH 100 mg QAM SOURAV Administration Vancomycin HCl 1 each 11/18/24 18:44 Vancomycin For Acute Kidney Injury IVPB 11/20/24 23:59 PRN PRN Vancomycin Protocol Radiology Results: ITS Impressions Head CT 11/05/24 20:50 IMPRESSION: 1. Moderate nonspecific cerebral white matter disease, which likely represents chronic small vessel ischemic disease. 2. 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 Upper GI Series 11/08/24 12:17 IMPRESSION: 1. Slow gastric emptying likely related to postoperative ileus. No extraluminal leakage of contrast. Chest/Abdomen/Pelvis CT 11/10/24 10:38 IMPRESSION: 1. Small volume of ascites with mass effect on right lateral aspect of the liver, likely an exudate. 2. Small pleural effusions. 3. Wall thickening of the descending and sigmoid colon and rectum, consistent with colitis versus interstitial edema. Chest X-Ray 11/11/24 06:17 IMPRESSION: 1. Stable small pleural effusions. 2. Stable airspace opacities in the lower lung zones, consistent with atelectasis versus pneumonia. Catheter Placement CT 11/12/24 14:47 IMPRESSION: 1. Successful CT-guided right upper quadrant abdominal abscess drainage yielding yellow fluid. Modified Barium Swallow 11/13/24 12:24 IMPRESSION: 1. Laryngeal penetration. 2. Please refer to the speech therapy report for recommendations. Abdomen X-Ray 11/14/24 11:13 IMPRESSION: Nonspecific, nonobstructive bowel gas pattern. Supportive devices unchanged in position. Bilateral pleural effusions. If clinical suspicion persists, CT examination of the abdomen and pelvis (with intravenous contrast) is suggested for further evaluation. Renal Ultrasound 11/19/24 16:17 IMPRESSION: No hydronephrosis or renal calculi. Findings suggesting medical renal disease. Free fluid within the pelvis. Labs Labs: Laboratory Tests 11/20/24 06:30 11/20/24 06:30 Lactic Acid 0.7 Calcium 7.4 L Magnesium 2.0 Total Bilirubin 0.3 AST 20 ALT 10 Alkaline Phosphatase 111 Total Creatine Kinase < 20 L Total Protein 6.0 L Albumin 2.5 L
[2024-11-20] MEDS: POTASSIUM CHLORIDE 20 MEQ ER TABLET PO (11:02)
[2024-11-20 11:11] LABS: Eosinophil Urine None Seen % (None Seen); Urine Eos QC 2nd Tech Confirmed
[2024-11-20 11:29] LABS: Glucose Point of Care 115 mg/dl (65-105)
--- NOTE | 2024-11-20 12:32 | P.PNGS_ITS ---
Progress Note: A&P Assessment and Plan (1) Perforated gastric ulcer: Qualifiers: Gastric ulcer chronicity: acute Qualified Code(s): K25.1 - Acute gastric ulcer with perforation Code(s): K25.5 - Chronic or unspecified gastric ulcer with perforation Status: Acute Assessment and Plan: * WBC overall trending down, but patient complaining of abdominal pain today. He has abdominal distention and tenderness on exam. * Will repeat CT scan of the abdomen and pelvis c/o contrast d/t his DEBI. * Continue IV antimicrobials * Monitor perc drain and HARLEY drain for now, minimal output, CT will re-evaluate the fluid collection as well Plan I have discussed the patient's case and plan of care with Dr. Rodriguez. Subjective Subjective Date/Time Seen: 11/20/24 12:32 Patient reports: flatus and bowel movement (moving bowels daily) Interval history: Patient still not eating much. Today he is complaining of lower abdominal pain. He had a temp of 100F two days ago and low grade 99F overnight. WBC overall trending down at 15,000 today. Minimal output from the perc drain over the past few days. Only minimal serous drainage in the perc drain this morning. Nursing reports a bulge at the patients anal verge when wiping him yesterday and he was started on suppositories from the Hospitalist. Exam Const: General: comfortable and no acute distress Orientation/consciousness: oriented to person, No oriented to place and oriented to time GI: Inspection: distended, incision (dry and chencho intact, no erythema or drainage) and other (HARLEY drain with scant old serosanguineous drainage) GI Palp: Yes Soft to palpation, Yes Tenderness to palpation present (GI) (tenderness across the lower abdomen), Yes Guarding due to palpation present (GI) (lower abdomen) and No Rebound tenderness present Auscultation: normal bowel sounds Rectal Exam: hemorrhoids (right posterior inflamed hemorrhoid) Other: perc drain with serous drainage Objective Data Vital Signs Vital Signs: Vital Signs - 24 hr 11/19/24 14:00 11/19/24 21:02 11/19/24 21:07 Temperature 98.6 F Pulse Rate 81 79 Respiratory Rate 26 H 18 Blood Pressure 149/85 H Pulse Oximetry 94 93 Oxygen Delivery Nasal Cannula Oxygen Flow Rate 2 11/19/24 21:15 11/19/24 21:20 11/20/24 06:00 Temperature 99.6 F 98.9 F Pulse Rate 86 81 90 Respiratory Rate 22 H 18 22 H Blood Pressure 154/81 H 177/91 H Pulse Oximetry 93 90 Oxygen Delivery Oxygen Flow Rate 11/20/24 08:00 11/20/24 08:04 11/20/24 08:04 Temperature Pulse Rate 79 Respiratory Rate 20 Blood Pressure Pulse Oximetry 94 94 Oxygen Delivery Nasal Cannula Nasal Cannula Oxygen Flow Rate 2 2 11/20/24 08:18 Temperature Pulse Rate 78 Respiratory Rate 20 Blood Pressure Pulse Oximetry Oxygen Delivery Oxygen Flow Rate Intake/Output Intake/Output: Intake & Output 11/17/24 11/18/24 11/19/24 11/20/24 23:59 23:59 23:59 23:59 Intake Total 2911.2 1447.5 2040 100 Output Total 2 30 10 300 Balance 2909.2 1417.5 2030 -200 Meds/Results Medications: Active Medications Generic Name Dose Route Start Last Admin Trade Name Freq PRN Reason Stop Dose Admin Acetaminophen 650 mg 11/06/24 14:48 11/07/24 19:10 Acetaminophen 650 Mg Suppository RECTAL 650 mg Q4H PRN Administration Mild Pain (1-3) or Fever Acetaminophen 650 mg 11/14/24 15:21 Acetaminophen Elixir 325 Mg/10.15 Ml Udc FEED TUBE Q4H PRN Headache, Fever, Mild Pain Hydrocodone Bitart/Acetaminophen 1 tab 11/08/24 13:37 11/18/24 00:29 Hydrocodone/Acetaminophen (*Crx) 5-325 Mg Tablet FEED TUBE 1 tab Q4H PRN Administration Pain Rated 4-6 Acetylcysteine 200 mg 11/09/24 20:00 11/20/24 08:03 Acetylcysteine 20% Inhal Soln 800 Mg/4 Ml Vial INHALATION 200 mg Q12HRT SOURAV Administration Albuterol 2.5 mg 11/09/24 15:38 11/20/24 08:03 Albuterol Sulfate Neb 2.5 Mg/3 Ml Inh INHALATION 2.5 mg Q12HR PRN Administration Shortness Of Breath Amlodipine Besylate 5 mg 11/11/24 09:00 11/20/24 08:51 Amlodipine Besylate 5 Mg Tablet PO 5 mg DAILY SOURAV Administration Dextrose 12.5 gm 11/06/24 07:40 Dextrose 50% 25 Gm/50 Ml Syringe IV PUSH PRN PRN Hypoglycemia Protocol Dronabinol 5 mg 11/17/24 17:00 11/20/24 08:52 Dronabinol (*Crx) 2.5 Mg Capsule PO 5 mg BID SOURAV Administration Enoxaparin Sodium 30 mg 11/18/24 09:00 11/20/24 09:00 Enoxaparin 30 Mg/0.3 Ml Syringe SUB-Q 30 mg DAILY SOURAV Administration Folic Acid 1 mg 11/06/24 09:00 11/20/24 09:01 Folic Acid 1 Mg/0.2 Ml Inj IV PUSH 1 mg QAM SOURAV Administration Glucagon 1 mg 11/06/24 07:40 Glucagon For Inj 1 Mg Vial IM PRN PRN Hypoglycemia Protocol Glucose 15 gm 11/06/24 07:40 Glucose Oral Gel 15 Gm Of Glucse In 37.5 Gm Tube PO PRN PRN Hypoglycemia Protocol Hydralazine HCl 10 mg 11/10/24 09:16 11/14/24 04:17 Hydralazine Hcl 20 Mg/Ml Vial IV PUSH 10 mg Q4HR PRN Administration Blood Pressure - High Dextrose 1,000 mls @ 100 mls/hr 11/06/24 07:40 Dextrose 5% 1,000 Ml IVPB PRN PRN Hypoglycemia Protocol Micafungin Sodium 100 mg/ 100 mls @ 100 mls/hr 11/11/24 09:40 11/20/24 09:00 Sodium Chloride IVPB 11/24/24 09:59 100 mls/hr DAILY SOURAV Administration Sodium Chloride 1,000 mls @ 75 mls/hr 11/20/24 07:20 11/20/24 08:56 Normal Saline Iv IV CONT 75 mls/hr .[id number] SOURAV Administration Insulin Aspart 2 - 5 units 11/18/24 08:00 11/20/24 11:43 Insulin Aspart (*Bkc) 100 Units/Ml SUB-Q Not Given TIDWM SOURAV Protocol Morphine Sulfate 2 mg 11/08/24 07:39 Morphine Sulfate (*Crx) 2 Mg/Ml Inj IV PUSH Q2H PRN Moderate Pain (4-6) Morphine Sulfate 4 mg 11/08/24 07:39 11/19/24 09:50 Morphine Sulfate (*Crx) 4 Mg/Ml Inj IV PUSH 4 mg Q2H PRN Administration Pain Rated 7-10 Naloxone HCl 0.1 mg 11/06/24 00:01 Naloxone Hcl 0.4 Mg/Ml Vial IV PUSH Q2M PRN Opiate Reversal Ondansetron HCl 4 mg 11/06/24 00:01 Ondansetron Inj 4 Mg/2 Ml Vial IV PUSH Q4H PRN Nausea And Vomiting Pantoprazole Sodium 40 mg 11/06/24 09:00 11/20/24 08:59 Pantoprazole Sodium Iv 40 Mg Vial IV PUSH 40 mg Q12HR SOURAV Administration Phenyleph/Shark Oil/[place] Butter 1 supp 11/19/24 18:18 11/19/24 18:33 Phenylephrine Hcl/[place] Butter Supp.Rect (*Bkc) RECTAL 1 supp Q12HR PRN Administration Hemorrhoids Thiamine HCl 100 mg 11/06/24 09:00 11/20/24 08:59 Thiamine Hcl 200 Mg/2 Ml Vial IV PUSH 100 mg QAM SOURAV Administration Vancomycin HCl 1 each 11/18/24 18:44 Vancomycin For Acute Kidney Injury IVPB 11/20/24 23:59 PRN PRN Vancomycin Protocol Radiology Results: ITS Impressions Head CT 11/05/24 20:50 IMPRESSION: 1. Moderate nonspecific cerebral white matter disease, which likely represents chronic small vessel ischemic disease. 2. 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 Upper GI Series 11/08/24 12:17 IMPRESSION: 1. Slow gastric emptying likely related to postoperative ileus. No extraluminal leakage of contrast. Chest/Abdomen/Pelvis CT 11/10/24 10:38 IMPRESSION: 1. Small volume of ascites with mass effect on right lateral aspect of the liver, likely an exudate. 2. Small pleural effusions. 3. Wall thickening of the descending and sigmoid colon and rectum, consistent with colitis versus interstitial edema. Chest X-Ray 11/11/24 06:17 IMPRESSION: 1. Stable small pleural effusions. 2. Stable airspace opacities in the lower lung zones, consistent with atelectasis versus pneumonia. Catheter Placement CT 11/12/24 14:47 IMPRESSION: 1. Successful CT-guided right upper quadrant abdominal abscess drainage yielding yellow fluid. Modified Barium Swallow 11/13/24 12:24 IMPRESSION: 1. Laryngeal penetration. 2. Please refer to the speech therapy report for recommendations. Abdomen X-Ray 11/14/24 11:13 IMPRESSION: Nonspecific, nonobstructive bowel gas pattern. Supportive devices unchanged in position. Bilateral pleural effusions. If clinical suspicion persists, CT examination of the abdomen and pelvis (with intravenous contrast) is suggested for further evaluation. Renal Ultrasound 11/19/24 16:17 IMPRESSION: No hydronephrosis or renal calculi. Findings suggesting medical renal disease. Free fluid within the pelvis. Labs Labs: Laboratory Results - last 24 hr 11/19/24 11/19/24 11/19/24 16:43 18:04 20:23 WBC RBC Hgb Hct MCV MCH MCHC RDW Plt Count MPV Immature Gran % (Auto) Neut % (Auto) Lymph % (Auto) [place] % (Auto) Eos % (Auto) Baso % (Auto) Lymph # (Auto) [place] # (Auto) Eos # (Auto) Baso # (Auto) Abs Immat Gran (auto) Absolute Neuts (auto) Absolute Nucleated RBC Nucleated RBC % Sodium Potassium Chloride Carbon Dioxide Anion Gap BUN Creatinine Estim Creat Clear Calc Estimated GFR Glucose POC Capillary Glucose 124 H 146 H Lactic Acid Calcium Magnesium Total Bilirubin AST ALT Alkaline Phosphatase Total Creatine Kinase Total Protein Albumin Urine Color Urine Appearance Urine pH Ur Specific [place] Urine Protein Urine Glucose (UA) Urine Ketones Ur Blood (Man) Urine Nitrate Urine Bilirubin Urine Urobilinogen Add Ur Microanalysis Leukocyte Esterase Rfl Urine RBC Urine WBC Ur Squamous Epith Cells Urine Bacteria Urine Casts Urine Eosinophils U Random Total Protein Ur Random Sodium Ur Random Urea Urine Creatinine Protein/Creat Ratio 2 Random Vancomycin 29.8 H 11/20/24 11/20/24 11/20/24 06:30 07:25 09:55 WBC 15.9 H RBC 3.36 L Hgb 9.7 L Hct 31.4 L MCV 93.5 MCH 28.9 MCHC 30.9 L RDW 14.9 H Plt Count 821 H MPV 9.8 Immature Gran % (Auto) 1.3 H Neut % (Auto) 86.6 H Lymph % (Auto) 5.3 L [place] % (Auto) 6.0 Eos % (Auto) 0.4 Baso % (Auto) 0.4 Lymph # (Auto) 0.85 L [place] # (Auto) 1.0 H Eos # (Auto) 0.1 Baso # (Auto) 0.1 Abs Immat Gran (auto) 0.21 H Absolute Neuts (auto) 13.8 H Absolute Nucleated RBC 0.000 Nucleated RBC % 0.0 Sodium 138 Potassium 3.3 L Chloride 112 H Carbon Dioxide 25 Anion Gap 1 L BUN 21 H Creatinine 3.10 H Estim Creat Clear Calc 16 Estimated GFR 20 L Glucose 134 H POC Capillary Glucose 166 H Lactic Acid 0.7 Calcium 7.4 L Magnesium 2.0 Total Bilirubin 0.3 AST 20 ALT 10 Alkaline Phosphatase 111 Total Creatine Kinase < 20 L Total Protein 6.0 L Albumin 2.5 L Urine Color Yellow Urine Appearance Cloudy H Urine pH 5.5 Ur Specific [place] 1.009 Urine Protein 2+ H Urine Glucose (UA) Negative Urine Ketones Negative Ur Blood (Man) Trace Urine Nitrate Negative Urine Bilirubin Negative Urine Urobilinogen 0.2 Add Ur Microanalysis Reviewed Leukocyte Esterase Rfl Negative Urine RBC 0-2 Urine WBC 0-5 Ur Squamous Epith Cells Few Urine Bacteria None seen Urine Casts 6-10 Urine Eosinophils None seen U Random Total Protein 100 Ur Random Sodium Ur Random Urea Urine Creatinine Protein/Creat Ratio 2 Random Vancomycin 11/20/24 11/20/24 11/20/24 09:55 09:55 11:20 WBC RBC Hgb Hct MCV MCH MCHC RDW Plt Count MPV Immature Gran % (Auto) Neut % (Auto) Lymph % (Auto) [place] % (Auto) Eos % (Auto) Baso % (Auto) Lymph # (Auto) [place] # (Auto) Eos # (Auto) Baso # (Auto) Abs Immat Gran (auto) Absolute Neuts (auto) Absolute Nucleated RBC Nucleated RBC % Sodium Potassium Chloride Carbon Dioxide Anion Gap BUN Creatinine Estim Creat Clear Calc Estimated GFR Glucose POC Capillary Glucose 115 H Lactic Acid Calcium Magnesium Total Bilirubin AST ALT Alkaline Phosphatase Total Creatine Kinase Total Protein Albumin Urine Color Urine Appearance Urine pH Ur Specific [place] Urine Protein Urine Glucose (UA) Urine Ketones Ur Blood (Man) Urine Nitrate Urine Bilirubin Urine Urobilinogen Add Ur Microanalysis Leukocyte Esterase Rfl Urine RBC Urine WBC Ur Squamous Epith Cells Urine Bacteria Urine Casts Urine Eosinophils U Random Total Protein 101 Ur Random Sodium 22 Ur Random Urea 275 Urine Creatinine 74.0 72.6 Protein/Creat Ratio 2 1.36 H Random Vancomycin
--- NOTE | 2024-11-20 13:59 | PCOTNOTE ---
Patient out of the room at this time. Patient went down to have a CT scan.
--- NOTE | 2024-11-20 13:59 | PCPTNOTE ---
Patient refused PT this afternoon. Patient states he has abdominal discomfort. Patient states he has been exercising his legs in bed. PT will continue to follow.
--- NOTE | 2024-11-20 15:52 | P.PNGS_ITS ---
Subjective Subjective Date/Time Seen: 11/20/24 15:52 Objective Data Vital Signs Vital Signs: Vital Signs - 24 hr 11/19/24 21:02 11/19/24 21:07 11/19/24 21:15 Temperature 37.6 C Pulse Rate 79 86 Respiratory Rate 18 22 H Blood Pressure 154/81 H Pulse Oximetry 93 93 Oxygen Delivery Nasal Cannula Oxygen Flow Rate 2 11/19/24 21:20 11/20/24 06:00 11/20/24 08:00 Temperature 37.2 C Pulse Rate 81 90 Respiratory Rate 18 22 H Blood Pressure 177/91 H Pulse Oximetry 90 94 Oxygen Delivery Nasal Cannula Oxygen Flow Rate 2 11/20/24 08:04 11/20/24 08:04 11/20/24 08:18 Temperature Pulse Rate 79 78 Respiratory Rate 20 20 Blood Pressure Pulse Oximetry 94 Oxygen Delivery Nasal Cannula Oxygen Flow Rate 2 11/20/24 14:00 Temperature 36.7 C Pulse Rate 80 Respiratory Rate 18 Blood Pressure 153/76 H Pulse Oximetry 95 Oxygen Delivery Oxygen Flow Rate Intake/Output Intake/Output: Intake & Output 11/17/24 11/18/24 11/19/24 11/20/24 23:59 23:59 23:59 23:59 Intake Total 2911.2 1447.5 2040 100 Output Total 2 30 10 300 Balance 2909.2 1417.5 2030 -200 Meds/Results Medications: Active Medications Generic Name Dose Route Start Last Admin Trade Name Freq PRN Reason Stop Dose Admin Acetaminophen 650 mg 11/06/24 14:48 11/07/24 19:10 Acetaminophen 650 Mg Suppository RECTAL 650 mg Q4H PRN Administration Mild Pain (1-3) or Fever Acetaminophen 650 mg 11/14/24 15:21 Acetaminophen Elixir 325 Mg/10.15 Ml Udc FEED TUBE Q4H PRN Headache, Fever, Mild Pain Hydrocodone Bitart/Acetaminophen 1 tab 11/08/24 13:37 11/18/24 00:29 Hydrocodone/Acetaminophen (*Crx) 5-325 Mg Tablet FEED TUBE 1 tab Q4H PRN Administration Pain Rated 4-6 Acetylcysteine 200 mg 11/09/24 20:00 11/20/24 08:03 Acetylcysteine 20% Inhal Soln 800 Mg/4 Ml Vial INHALATION 200 mg Q12HRT SOURAV Administration Albuterol 2.5 mg 11/09/24 15:38 11/20/24 08:03 Albuterol Sulfate Neb 2.5 Mg/3 Ml Inh INHALATION 2.5 mg Q12HR PRN Administration Shortness Of Breath Amlodipine Besylate 5 mg 11/11/24 09:00 11/20/24 08:51 Amlodipine Besylate 5 Mg Tablet PO 5 mg DAILY SOURAV Administration Dextrose 12.5 gm 11/06/24 07:40 Dextrose 50% 25 Gm/50 Ml Syringe IV PUSH PRN PRN Hypoglycemia Protocol Dronabinol 5 mg 11/17/24 17:00 11/20/24 08:52 Dronabinol (*Crx) 2.5 Mg Capsule PO 5 mg BID SOURAV Administration Enoxaparin Sodium 30 mg 11/18/24 09:00 11/20/24 09:00 Enoxaparin 30 Mg/0.3 Ml Syringe SUB-Q 30 mg DAILY SOURAV Administration Folic Acid 1 mg 11/06/24 09:00 11/20/24 09:01 Folic Acid 1 Mg/0.2 Ml Inj IV PUSH 1 mg QAM SOURAV Administration Glucagon 1 mg 11/06/24 07:40 Glucagon For Inj 1 Mg Vial IM PRN PRN Hypoglycemia Protocol Glucose 15 gm 11/06/24 07:40 Glucose Oral Gel 15 Gm Of Glucse In 37.5 Gm Tube PO PRN PRN Hypoglycemia Protocol Hydralazine HCl 10 mg 11/10/24 09:16 11/14/24 04:17 Hydralazine Hcl 20 Mg/Ml Vial IV PUSH 10 mg Q4HR PRN Administration Blood Pressure - High Hydrocortisone/Pramoxine 1 applic 11/20/24 21:00 Hydrocortisone/Pramoxine 2.5% 30 Gm Cream RECTAL 11/24/24 08:00 Q12HR SOURAV Dextrose 1,000 mls @ 100 mls/hr 11/06/24 07:40 Dextrose 5% 1,000 Ml IVPB PRN PRN Hypoglycemia Protocol Micafungin Sodium 100 mg/ 100 mls @ 100 mls/hr 11/11/24 09:40 11/20/24 09:00 Sodium Chloride IVPB 11/24/24 09:59 100 mls/hr DAILY SOURAV Administration Sodium Chloride 1,000 mls @ 75 mls/hr 11/20/24 07:20 11/20/24 08:56 Normal Saline Iv IV CONT 75 mls/hr .[id number] SOURAV Administration Insulin Aspart 2 - 5 units 11/18/24 08:00 11/20/24 11:43 Insulin Aspart (*Bkc) 100 Units/Ml SUB-Q Not Given TIDWM [facility] Protocol Morphine Sulfate 2 mg 11/08/24 07:39 Morphine Sulfate (*Crx) 2 Mg/Ml Inj IV PUSH Q2H PRN Moderate Pain (4-6) Morphine Sulfate 4 mg 11/08/24 07:39 11/19/24 09:50 Morphine Sulfate (*Crx) 4 Mg/Ml Inj IV PUSH 4 mg Q2H PRN Administration Pain Rated 7-10 Naloxone HCl 0.1 mg 11/06/24 00:01 Naloxone Hcl 0.4 Mg/Ml Vial IV PUSH Q2M PRN Opiate Reversal Ondansetron HCl 4 mg 11/06/24 00:01 Ondansetron Inj 4 Mg/2 Ml Vial IV PUSH Q4H PRN Nausea And Vomiting Pantoprazole Sodium 40 mg 11/06/24 09:00 11/20/24 08:59 Pantoprazole Sodium Iv 40 Mg Vial IV PUSH 40 mg Q12HR SOURAV Administration Phenyleph/Shark Oil/[place] Butter 1 supp 11/19/24 18:18 11/19/24 18:33 Phenylephrine Hcl/[place] Butter Supp.Rect (*Bkc) RECTAL 1 supp Q12HR PRN Administration Hemorrhoids Thiamine HCl 100 mg 11/06/24 09:00 11/20/24 08:59 Thiamine Hcl 200 Mg/2 Ml Vial IV PUSH 100 mg QAM SOURAV Administration Vancomycin HCl 1 each 11/18/24 18:44 Vancomycin For Acute Kidney Injury IVPB 11/20/24 23:59 PRN PRN Vancomycin Protocol Radiology Results: ITS Impressions Head CT 11/05/24 20:50 IMPRESSION: 1. Moderate nonspecific cerebral white matter disease, which likely represents chronic small vessel ischemic disease. 2. 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 Upper GI Series 11/08/24 12:17 IMPRESSION: 1. Slow gastric emptying likely related to postoperative ileus. No extraluminal leakage of contrast. Chest/Abdomen/Pelvis CT 11/10/24 10:38 IMPRESSION: 1. Small volume of ascites with mass effect on right lateral aspect of the liver, likely an exudate. 2. Small pleural effusions. 3. Wall thickening of the descending and sigmoid colon and rectum, consistent with colitis versus interstitial edema. Chest X-Ray 11/11/24 06:17 IMPRESSION: 1. Stable small pleural effusions. 2. Stable airspace opacities in the lower lung zones, consistent with atelectasis versus pneumonia. Catheter Placement CT 11/12/24 14:47 IMPRESSION: 1. Successful CT-guided right upper quadrant abdominal abscess drainage yielding yellow fluid. Modified Barium Swallow 11/13/24 12:24 IMPRESSION: 1. Laryngeal penetration. 2. Please refer to the speech therapy report for recommendations. Abdomen X-Ray 11/14/24 11:13 IMPRESSION: Nonspecific, nonobstructive bowel gas pattern. Supportive devices unchanged in position. Bilateral pleural effusions. If clinical suspicion persists, CT examination of the abdomen and pelvis (with intravenous contrast) is suggested for further evaluation. Renal Ultrasound 11/19/24 16:17 IMPRESSION: No hydronephrosis or renal calculi. Findings suggesting medical renal disease. Free fluid within the pelvis. Abdomen/Pelvis CT 11/20/24 14:44 IMPRESSION: Large bilateral pleural effusions, with bilateral lower lobe atelectasis. Infection in the lower lobes is not excluded. Single loop of dilated jejunum, likely representing localized ileus. Early/partial obstruction could appear similarly. Colonic wall thickening, as can be seen with colitis. Moderate ascites. Diffuse edema of the subcutaneous fat and mesenteric fat. Labs Labs: Laboratory Results - last 24 hr 11/19/24 11/19/24 11/19/24 16:43 18:04 20:23 WBC RBC Hgb Hct MCV MCH MCHC RDW Plt Count MPV Immature Gran % (Auto) Neut % (Auto) Lymph % (Auto) [place] % (Auto) Eos % (Auto) Baso % (Auto) Lymph # (Auto) [place] # (Auto) Eos # (Auto) Baso # (Auto) Abs Immat Gran (auto) Absolute Neuts (auto) Absolute Nucleated RBC Nucleated RBC % Sodium Potassium Chloride Carbon Dioxide Anion Gap BUN Creatinine Estim Creat Clear Calc Estimated GFR Glucose POC Capillary Glucose 124 H 146 H Lactic Acid Calcium Magnesium Total Bilirubin AST ALT Alkaline Phosphatase Total Creatine Kinase Total Protein Albumin Urine Color Urine Appearance Urine pH Ur Specific [place] Urine Protein Urine Glucose (UA) Urine Ketones Ur Blood (Man) Urine Nitrate Urine Bilirubin Urine Urobilinogen Add Ur Microanalysis Leukocyte Esterase Rfl Urine RBC Urine WBC Ur Squamous Epith Cells Urine Bacteria Urine Casts Urine Eosinophils U Random Total Protein Ur Random Sodium Ur Random Urea Urine Creatinine Protein/Creat Ratio 2 Random Vancomycin 29.8 H 11/20/24 11/20/24 11/20/24 06:30 07:25 09:55 WBC 15.9 H RBC 3.36 L Hgb 9.7 L Hct 31.4 L MCV 93.5 MCH 28.9 MCHC 30.9 L RDW 14.9 H Plt Count 821 H MPV 9.8 Immature Gran % (Auto) 1.3 H Neut % (Auto) 86.6 H Lymph % (Auto) 5.3 L [place] % (Auto) 6.0 Eos % (Auto) 0.4 Baso % (Auto) 0.4 Lymph # (Auto) 0.85 L [place] # (Auto) 1.0 H Eos # (Auto) 0.1 Baso # (Auto) 0.1 Abs Immat Gran (auto) 0.21 H Absolute Neuts (auto) 13.8 H Absolute Nucleated RBC 0.000 Nucleated RBC % 0.0 Sodium 138 Potassium 3.3 L Chloride 112 H Carbon Dioxide 25 Anion Gap 1 L BUN 21 H Creatinine 3.10 H Estim Creat Clear Calc 16 Estimated GFR 20 L Glucose 134 H POC Capillary Glucose 166 H Lactic Acid 0.7 Calcium 7.4 L Magnesium 2.0 Total Bilirubin 0.3 AST 20 ALT 10 Alkaline Phosphatase 111 Total Creatine Kinase < 20 L Total Protein 6.0 L Albumin 2.5 L Urine Color Yellow Urine Appearance Cloudy H Urine pH 5.5 Ur Specific [place] 1.009 Urine Protein 2+ H Urine Glucose (UA) Negative Urine Ketones Negative Ur Blood (Man) Trace Urine Nitrate Negative Urine Bilirubin Negative Urine Urobilinogen 0.2 Add Ur Microanalysis Reviewed Leukocyte Esterase Rfl Negative Urine RBC 0-2 Urine WBC 0-5 Ur Squamous Epith Cells Few Urine Bacteria None seen Urine Casts 6-10 Urine Eosinophils None seen U Random Total Protein 100 Ur Random Sodium Ur Random Urea Urine Creatinine Protein/Creat Ratio 2 Random Vancomycin 11/20/24 11/20/24 11/20/24 09:55 09:55 11:20 WBC RBC Hgb Hct MCV MCH MCHC RDW Plt Count MPV Immature Gran % (Auto) Neut % (Auto) Lymph % (Auto) [place] % (Auto) Eos % (Auto) Baso % (Auto) Lymph # (Auto) [place] # (Auto) Eos # (Auto) Baso # (Auto) Abs Immat Gran (auto) Absolute Neuts (auto) Absolute Nucleated RBC Nucleated RBC % Sodium Potassium Chloride Carbon Dioxide Anion Gap BUN Creatinine Estim Creat Clear Calc Estimated GFR Glucose POC Capillary Glucose 115 H Lactic Acid Calcium Magnesium Total Bilirubin AST ALT Alkaline Phosphatase Total Creatine Kinase Total Protein Albumin Urine Color Urine Appearance Urine pH Ur Specific [place] Urine Protein Urine Glucose (UA) Urine Ketones Ur Blood (Man) Urine Nitrate Urine Bilirubin Urine Urobilinogen Add Ur Microanalysis Leukocyte Esterase Rfl Urine RBC Urine WBC Ur Squamous Epith Cells Urine Bacteria Urine Casts Urine Eosinophils U Random Total Protein 101 Ur Random Sodium 22 Ur Random Urea 275 Urine Creatinine 74.0 72.6 Protein/Creat Ratio 2 1.36 H Random Vancomycin
[2024-11-20 16:34] LABS: Glucose Point of Care 101 mg/dl (65-105)
[2024-11-20 17:34] LABS: Anion Gap 2 mmol/L (4-12); Blood Urea Nitrogen 20 mg/dL (9-20); Calcium 7.5 mg/dL (8.4-10.2); Carbon Dioxide 24 mmol/L (22-30); Chloride 113 mmol/L (98-107); Estimated CRCL calculation 15 ml/min; Estimated Glomerular Filt Rate 19; Glucose 91 mg/dL (65-110); Potassium 3.8 mmol/L (3.4-5.0); Sodium 139 mmol/L (137-145)
[2024-11-20] MEDS: HYDROCORTISONE/PRAMOXINE 2.5% 30 GM CREAM 1 APPLIC RECTAL (20:33)
[2024-11-20 21:17] LABS: Glucose Point of Care 90 mg/dl (65-105)
[2024-11-21] VITALS (10 sets, daily range): BP systolic 130–166; BP diastolic 56–81; PULSE 77–91; RESP 18–20; TEMP 36.9–37.2; O2SAT 90–99
[2024-11-21] MEDS: MORPHINE SULFATE (*CRX) 4 MG/ML INJ IV PUSH (06:47)
[2024-11-21] MEDS: ONDANSETRON INJ 4 MG/2 ML VIAL IV PUSH (06:47)
[2024-11-21 08:10] LABS: Basophils Absolute Auto 0.1 K/mm3 (0.0-0.1); Basophils Percent Auto 0.4 % (0.2-1.2); Eosinophils Percent Auto 0.2 % (0-4.4); Hematocrit 30.6 % (42.0-52.0); Hemoglobin 9.6 g/dL (14.0-18.0); Immature Granulocyte Absolute 0.28 K/mm3 (0.00-0.031); Immature Granulocyte Percent A 1.4 % (0-0.5); Lymphocytes Absolute Auto 1.35 K/mm3 (0.9-3.2); Lymphocytes Percent Auto 6.8 % (18.3-44.2); Mean Corpuscular HGB Conc 31.4 g/dl (32-36); Mean Corpuscular Hemoglobin 28.9 pg (26-34); Mean Corpuscular Volume 92.2 fl (80-100); Monocytes Percent Auto 4.8 % (2.6-8.5); Neutrophils Absolute Auto 17.1 K/mm3 (1.3-6.7); Neutrophils Percent Auto 86.4 % (45.5-73.1); Platelet Count Result 921 k/mm3 (150-375); Red Blood Count 3.32 M/mm3 (4.6-6.20); Red Cell Distribution Width 14.8 % (11.5-14.5); White Blood Count 19.8 K/mm3 (4.5-10.0)
[2024-11-21] MEDS: ALBUTEROL SULFATE NEB 2.5 MG/3 ML INH INHALATION ×2 (08:15→21:29)
[2024-11-21] MEDS: ACETYLCYSTEINE 20% INHAL SOLN 800 MG/4 ML VIAL 200 MG INHALATION ×2 (08:15→21:29)
[2024-11-21 08:23] LABS: Alanine Aminotransferase 10 U/L (6-50); Albumin Level 2.6 g/dL (3.5-5.1); Alkaline Phosphatase 113 U/L (38-126); Anion Gap 7 mmol/L (4-12); Aspartate Amino Transferase 21 U/L (17-59); Bilirubin,Total 0.4 mg/dL (0.2-1.3); Blood Urea Nitrogen 23 mg/dL (9-20); Calcium 7.7 mg/dL (8.4-10.2); Carbon Dioxide 22 mmol/L (22-30); Chloride 113 mmol/L (98-107); Estimated CRCL calculation 14 ml/min; Estimated Glomerular Filt Rate 17; Glucose 79 mg/dL (65-110); Magnesium 2.1 mg/dL (1.6-2.3); Phosphorus 5.7 mg/dL (2.5-4.5); Potassium 3.8 mmol/L (3.4-5.0); Sodium 142 mmol/L (137-145)
[2024-11-21] MEDS: FOLIC ACID 1 MG/0.2 ML INJ IV PUSH (08:48)
[2024-11-21] MEDS: ENOXAPARIN 30 MG/0.3 ML SYRINGE SUB-Q (08:48)
[2024-11-21] MEDS: HYDROCORTISONE/PRAMOXINE 2.5% 30 GM CREAM 1 APPLIC RECTAL ×2 (08:48→20:52)
[2024-11-21] MEDS: droNABinol (*CRX) 2.5 MG CAPSULE 5 MG PO ×2 (08:48→16:58)
[2024-11-21] MEDS: amLODIPine BESYLATE 5 MG TABLET PO (08:48)
[2024-11-21 08:49] LABS: Glucose Point of Care 85 mg/dl (65-105)
[2024-11-21] MEDS: THIAMINE HCL 200 MG/2 ML VIAL 100 MG IV PUSH (08:49)
[2024-11-21] MEDS: PANTOPRAZOLE SODIUM IV 40 MG VIAL IV PUSH ×2 (08:49→20:52)
[2024-11-21] MEDS: MICAFUNGIN SODIUM 100 MG in SODIUM CHLORIDE 0.9% IV 100 ML IVPB (08:52)
--- NOTE | 2024-11-21 11:35 | P.PNNP_ITS ---
Progress Note: A&P Assessment and Plan (1) DEBI (acute kidney injury): Code(s): N17.9 - Acute kidney failure, unspecified Status: Acute Assessment and Plan: * initial insult on admission was due to sepsis hypotension, fluid shifts and hypovolemia * resolved with supportive therapy * second episode noted on 11/18...creatinine increased from 0.9 -> 2.2 -> 3.0mg/dl today * etiology of second episode is not entirely clear... * suspect ATN from prerenal azotemia secondary to third spacing given recent abdominal surgery compounded by his diminished oral intake * recent CT scan noted (ascites, pleural effusions, anasarca...) * evaluation to date noted: * renal ultrasound without obstruction but with medical renal disease * urine electrolytes prerenal * UA not indicative of infection * urine eosinophils negative * mild proteiuria noted (~ 1300mg proteinuria) * CPK low * consider diuresis if respiratory status declines... * follow trend of repeat labs and UOP (2) Perforated gastric ulcer: Qualifiers: Gastric ulcer chronicity: acute Qualified Code(s): K25.1 - Acute gastric ulcer with perforation Code(s): K25.5 - Chronic or unspecified gastric ulcer with perforation Status: Acute Assessment and Plan: * s/p exploratory laparotomy, extensive lysis of adhesions, intra-abdominal washout, repair of perforated gastric ulcer with omental patch * on antibiotics * local wound care * Surgery following (3) Hypertension: Code(s): I10 - Essential (primary) hypertension Status: Chronic Assessment and Plan: * as noted by recent BP readings * likely an undiagnosed condition * follow trend of hemodynamics (4) COPD (chronic obstructive pulmonary disease): Code(s): J44.9 - Chronic obstructive pulmonary disease, unspecified Status: Acute Assessment and Plan: * not in exacerbation * bronchodilators as needed (5) Severe protein-calorie malnutrition: Code(s): E43 - Unspecified severe protein-calorie malnutrition Status: Acute Assessment and Plan: * on dronabinol 5mg bid * advance diet as tolerated (6) EtOH dependence: Code(s): F10.20 - Alcohol dependence, uncomplicated Status: Acute Assessment and Plan: * known history * continue thiamine and folic acid Will continue to follow. L Subjective Date/time seen: 11/21/24 11:35 Interval history: Follow-up for acute kidney injury/acute renal failure. Renal function/creatinine continues to worsen but no critical electrolytes noted and appears to still be making urine; oral intake still remains poor; no apparent distress noted at the time of my visit. Exam 2 Narrative: General: elderly male in NAD Heart: normal S1 and S2; no rub Lungs: clear anteriorly Abdomen: mild TTP and distension; decreased bowel sounds Extremities: no cyanosis or clubbing; no edema Skin: warm and intact Objective Data Vital Signs Vital Signs: Vital Signs Temp Pulse Resp BP Pulse Ox O2 Del Method O2 Flow Rate 11/21/24 11:00 98.5 F 91 18 166/79 H 92 11/21/24 08:25 83 18 11/21/24 08:15 84 18 11/21/24 08:15 84 18 94 Nasal Cannula 2 11/21/24 08:00 94 Nasal Cannula 2 11/21/24 06:00 98.6 F 79 18 153/81 H 94 11/20/24 21:56 98.5 F 86 18 150/83 H 91 11/20/24 20:00 95 Nasal Cannula 2 Intake/Output Intake/Output: Intake & Output 11/18/24 11/19/24 11/20/24 11/21/24 23:59 23:59 23:59 23:59 Intake Total 1447.5 2040 200 477 Output Total 30 10 300 30 Balance 1417.5 2030 -100 447 Meds/Results Medications: Active Medications Generic Name Dose Route Start Last Admin Trade Name Freq PRN Reason Stop Dose Admin Acetaminophen 650 mg 11/06/24 14:48 11/07/24 19:10 Acetaminophen 650 Mg Suppository RECTAL 650 mg Q4H PRN Administration Mild Pain (1-3) or Fever Acetaminophen 650 mg 11/14/24 15:21 Acetaminophen Elixir 325 Mg/10.15 Ml Udc FEED TUBE Q4H PRN Headache, Fever, Mild Pain Hydrocodone Bitart/Acetaminophen 1 tab 11/08/24 13:37 11/18/24 00:29 Hydrocodone/Acetaminophen (*Crx) 5-325 Mg Tablet FEED TUBE 1 tab Q4H PRN Administration Pain Rated 4-6 Acetylcysteine 200 mg 11/09/24 20:00 11/21/24 08:15 Acetylcysteine 20% Inhal Soln 800 Mg/4 Ml Vial INHALATION 200 mg Q12HRT SOURAV Administration Albuterol 2.5 mg 11/09/24 15:38 11/21/24 08:15 Albuterol Sulfate Neb 2.5 Mg/3 Ml Inh INHALATION 2.5 mg Q12HR PRN Administration Shortness Of Breath Amlodipine Besylate 5 mg 11/11/24 09:00 11/21/24 08:48 Amlodipine Besylate 5 Mg Tablet PO 5 mg DAILY SOURAV Administration Dextrose 12.5 gm 11/06/24 07:40 11/21/24 16:58 Dextrose 50% 25 Gm/50 Ml Syringe IV PUSH 12.5 gm PRN PRN Administration Hypoglycemia Protocol Dronabinol 5 mg 11/17/24 17:00 11/21/24 16:58 Dronabinol (*Crx) 2.5 Mg Capsule PO 5 mg BID SOURAV Administration Enoxaparin Sodium 30 mg 11/18/24 09:00 11/21/24 08:48 Enoxaparin 30 Mg/0.3 Ml Syringe SUB-Q 30 mg DAILY SOURAV Administration Folic Acid 1 mg 11/06/24 09:00 11/21/24 08:48 Folic Acid 1 Mg/0.2 Ml Inj IV PUSH 1 mg QAM SOURAV Administration Glucagon 1 mg 11/06/24 07:40 Glucagon For Inj 1 Mg Vial IM PRN PRN Hypoglycemia Protocol Glucose 15 gm 11/06/24 07:40 Glucose Oral Gel 15 Gm Of Glucse In 37.5 Gm Tube PO PRN PRN Hypoglycemia Protocol Hydralazine HCl 10 mg 11/10/24 09:16 11/14/24 04:17 Hydralazine Hcl 20 Mg/Ml Vial IV PUSH 10 mg Q4HR PRN Administration Blood Pressure - High Hydrocortisone/Pramoxine 1 applic 11/20/24 21:00 11/21/24 08:48 Hydrocortisone/Pramoxine 2.5% 30 Gm Cream RECTAL 11/24/24 08:00 1 applic Q12HR SOURAV Administration Dextrose 1,000 mls @ 100 mls/hr 11/06/24 07:40 Dextrose 5% 1,000 Ml IVPB PRN PRN Hypoglycemia Protocol Micafungin Sodium 100 mg/ 100 mls @ 100 mls/hr 11/11/24 09:40 11/21/24 09:52 Sodium Chloride IVPB 11/24/24 09:59 Infused DAILY SOURAV Infusion Insulin Aspart 2 - 5 units 11/18/24 08:00 11/21/24 16:57 Insulin Aspart (*Bkc) 100 Units/Ml SUB-Q Not Given TIDWM ON LICENSE OF [facility] Protocol Morphine Sulfate 2 mg 11/08/24 07:39 Morphine Sulfate (*Crx) 2 Mg/Ml Inj IV PUSH Q2H PRN Moderate Pain (4-6) Morphine Sulfate 4 mg 11/08/24 07:39 11/21/24 06:47 Morphine Sulfate (*Crx) 4 Mg/Ml Inj IV PUSH 4 mg Q2H PRN Administration Pain Rated 7-10 Naloxone HCl 0.1 mg 11/06/24 00:01 Naloxone Hcl 0.4 Mg/Ml Vial IV PUSH Q2M PRN Opiate Reversal Ondansetron HCl 4 mg 11/06/24 00:01 11/21/24 06:47 Ondansetron Inj 4 Mg/2 Ml Vial IV PUSH 4 mg Q4H PRN Administration Nausea And Vomiting Pantoprazole Sodium 40 mg 11/06/24 09:00 11/21/24 08:49 Pantoprazole Sodium Iv 40 Mg Vial IV PUSH 40 mg Q12HR SOURAV Administration Phenyleph/Shark Oil/[place] Butter 1 supp 11/19/24 18:18 11/19/24 18:33 Phenylephrine Hcl/[place] Butter Supp.Rect (*Bkc) RECTAL 1 supp Q12HR PRN Administration Hemorrhoids Thiamine HCl 100 mg 11/06/24 09:00 11/21/24 08:49 Thiamine Hcl 200 Mg/2 Ml Vial IV PUSH 100 mg QAM SOURAV Administration Radiology Results: ITS Impressions Head CT 11/05/24 20:50 IMPRESSION: 1. Moderate nonspecific cerebral white matter disease, which likely represents chronic small vessel ischemic disease. 2. 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 Upper GI Series 11/08/24 12:17 IMPRESSION: 1. Slow gastric emptying likely related to postoperative ileus. No extraluminal leakage of contrast. Chest/Abdomen/Pelvis CT 11/10/24 10:38 IMPRESSION: 1. Small volume of ascites with mass effect on right lateral aspect of the liver, likely an exudate. 2. Small pleural effusions. 3. Wall thickening of the descending and sigmoid colon and rectum, consistent with colitis versus interstitial edema. Catheter Placement CT 11/12/24 14:47 IMPRESSION: 1. Successful CT-guided right upper quadrant abdominal abscess drainage yielding yellow fluid. Modified Barium Swallow 11/13/24 12:24 IMPRESSION: 1. Laryngeal penetration. 2. Please refer to the speech therapy report for recommendations. Abdomen X-Ray 11/14/24 11:13 IMPRESSION: Nonspecific, nonobstructive bowel gas pattern. Supportive devices unchanged in position. Bilateral pleural effusions. If clinical suspicion persists, CT examination of the abdomen and pelvis (with intravenous contrast) is suggested for further evaluation. Renal Ultrasound 11/19/24 16:17 IMPRESSION: No hydronephrosis or renal calculi. Findings suggesting medical renal disease. Free fluid within the pelvis. Abdomen/Pelvis CT 11/20/24 14:44 IMPRESSION: Large bilateral pleural effusions, with bilateral lower lobe atelectasis. Infection in the lower lobes is not excluded. Single loop of dilated jejunum, likely representing localized ileus. Early/partial obstruction could appear similarly. Colonic wall thickening, as can be seen with colitis. Moderate ascites. Diffuse edema of the subcutaneous fat and mesenteric fat. Labs Labs: Laboratory Tests 11/21/24 06:55 11/21/24 06:55 Calcium 7.7 L Phosphorus 5.7 H Magnesium 2.1 Total Bilirubin 0.4 AST 21 ALT 10 Alkaline Phosphatase 113 Total Protein 6.0 L Albumin 2.6 L
[2024-11-21 11:56] LABS: Glucose Point of Care 80 mg/dl (65-105)
--- NOTE | 2024-11-21 12:40 | P.PNIM_ITS ---
Progress Note: A&P Assessment and Plan (1) Metabolic acidosis: Code(s): E87.20 - Acidosis, unspecified Status: Acute Assessment and Plan: Gradually improving, will continue current treatment and monitor. (2) DEBI (acute kidney injury): Code(s): N17.9 - Acute kidney failure, unspecified Status: Acute Assessment and Plan: Creatinine stable around 3. Kidney ultrasound medical disease (3) Perforated gastric ulcer: Qualifiers: Gastric ulcer chronicity: acute Qualified Code(s): K25.1 - Acute gastric ulcer with perforation Code(s): K25.5 - Chronic or unspecified gastric ulcer with perforation Status: Acute Assessment and Plan: Continue with Protonix and monitor hgb (4) COPD (chronic obstructive pulmonary disease): Code(s): J44.9 - Chronic obstructive pulmonary disease, unspecified Status: Acute Assessment and Plan: Stable on current medications. Will continue current treatment. (5) Sepsis: Code(s): A41.9 - Sepsis, unspecified organism Status: Acute Assessment and Plan: Continue antibiotics and monitor cultures (6) Pneumonia: Code(s): J18.9 - Pneumonia, unspecified organism Status: Acute Assessment and Plan: Continue antibiotics gradually getting better (7) Acute hypoxic respiratory failure: Code(s): J96.01 - Acute respiratory failure with hypoxia Status: Acute Assessment and Plan: Better and improving (8) Sepsis associated hypotension: Code(s): A41.9 - Sepsis, unspecified organism; I95.9 - Hypotension, unspecified Status: Acute Assessment and Plan: Continue IV antibiotics and monitor cultures (9) EtOH dependence: Code(s): F10.20 - Alcohol dependence, uncomplicated Status: Acute Assessment and Plan: Counselling given Plan Code status full DVT prophylaxis on Sq Lovenox PT/OT following Subjective Date/time seen: 11/21/24 12:40 Interval history: Patient was seen during the morning rounds today. No new overnight complaints. Feeling slightly better. No sob or chest pain Review of Systems Review of Systems: Pt with a dry throat not talking loudly with ng tube in situ on tube feeds looks weak and tired ROS unobtainable: Yes unobtainable due to endotracheal tube, unobtainable due to medical condition and unobtainable due to mental status Exam Narrative: General: More alert toady Lungs/Chest: Trachea central Coarse BS B/L, No crackles or wheezing. Cardiac: RRR. Normal S1 S2. No murmurs Abdomen: Decreased but present bowel sounds. HARLEY drain in place. Soft. Tender to palpation as patient grimaces on exam. Extremities: No clubbing, cyanosis or edema. Warm : Shen in place Neurologic: Patient is able to move all 4 extremities spontaneously. Objective Data Vital Signs Vital Signs: Vital Signs - 24 hr 11/20/24 14:00 11/20/24 20:00 11/20/24 21:56 Temperature 36.7 C 36.9 C Pulse Rate 80 86 Respiratory Rate 18 18 Blood Pressure 153/76 H 150/83 H Pulse Oximetry 95 95 91 Oxygen Delivery Nasal Cannula Oxygen Flow Rate 2 11/21/24 06:00 11/21/24 08:00 11/21/24 08:15 Temperature 37.0 C Pulse Rate 79 84 Respiratory Rate 18 18 Blood Pressure 153/81 H Pulse Oximetry 94 94 94 Oxygen Delivery Nasal Cannula Nasal Cannula Oxygen Flow Rate 2 2 11/21/24 08:15 11/21/24 08:25 Temperature Pulse Rate 84 83 Respiratory Rate 18 18 Blood Pressure Pulse Oximetry Oxygen Delivery Oxygen Flow Rate Intake/Output Intake/Output: Intake & Output 11/18/24 11/19/24 11/20/24 11/21/24 23:59 23:59 23:59 23:59 Intake Total 1447.5 2040 200 477 Output Total 30 10 300 30 Balance 1417.5 2030 -100 447 Meds/Results Medications: Active Medications Generic Name Dose Route Start Last Admin Trade Name Freq PRN Reason Stop Dose Admin Acetaminophen 650 mg 11/06/24 14:48 11/07/24 19:10 Acetaminophen 650 Mg Suppository RECTAL 650 mg Q4H PRN Administration Mild Pain (1-3) or Fever Acetaminophen 650 mg 11/14/24 15:21 Acetaminophen Elixir 325 Mg/10.15 Ml Udc FEED TUBE Q4H PRN Headache, Fever, Mild Pain Hydrocodone Bitart/Acetaminophen 1 tab 11/08/24 13:37 11/18/24 00:29 Hydrocodone/Acetaminophen (*Crx) 5-325 Mg Tablet FEED TUBE 1 tab Q4H PRN Administration Pain Rated 4-6 Acetylcysteine 200 mg 11/09/24 20:00 11/21/24 08:15 Acetylcysteine 20% Inhal Soln 800 Mg/4 Ml Vial INHALATION 200 mg Q12HRT SOURAV Administration Albuterol 2.5 mg 11/09/24 15:38 11/21/24 08:15 Albuterol Sulfate Neb 2.5 Mg/3 Ml Inh INHALATION 2.5 mg Q12HR PRN Administration Shortness Of Breath Amlodipine Besylate 5 mg 11/11/24 09:00 11/21/24 08:48 Amlodipine Besylate 5 Mg Tablet PO 5 mg DAILY SOURAV Administration Dextrose 12.5 gm 11/06/24 07:40 Dextrose 50% 25 Gm/50 Ml Syringe IV PUSH PRN PRN Hypoglycemia Protocol Dronabinol 5 mg 11/17/24 17:00 11/21/24 08:48 Dronabinol (*Crx) 2.5 Mg Capsule PO 5 mg BID SOURAV Administration Enoxaparin Sodium 30 mg 11/18/24 09:00 11/21/24 08:48 Enoxaparin 30 Mg/0.3 Ml Syringe SUB-Q 30 mg DAILY SOURAV Administration Folic Acid 1 mg 11/06/24 09:00 11/21/24 08:48 Folic Acid 1 Mg/0.2 Ml Inj IV PUSH 1 mg QAM SOURAV Administration Glucagon 1 mg 11/06/24 07:40 Glucagon For Inj 1 Mg Vial IM PRN PRN Hypoglycemia Protocol Glucose 15 gm 11/06/24 07:40 Glucose Oral Gel 15 Gm Of Glucse In 37.5 Gm Tube PO PRN PRN Hypoglycemia Protocol Hydralazine HCl 10 mg 11/10/24 09:16 11/14/24 04:17 Hydralazine Hcl 20 Mg/Ml Vial IV PUSH 10 mg Q4HR PRN Administration Blood Pressure - High Hydrocortisone/Pramoxine 1 applic 11/20/24 21:00 11/21/24 08:48 Hydrocortisone/Pramoxine 2.5% 30 Gm Cream RECTAL 11/24/24 08:00 1 applic Q12HR SOURAV Administration Dextrose 1,000 mls @ 100 mls/hr 11/06/24 07:40 Dextrose 5% 1,000 Ml IVPB PRN PRN Hypoglycemia Protocol Micafungin Sodium 100 mg/ 100 mls @ 100 mls/hr 11/11/24 09:40 11/21/24 09:52 Sodium Chloride IVPB 11/24/24 09:59 Infused DAILY SOURAV Infusion Insulin Aspart 2 - 5 units 11/18/24 08:00 11/21/24 12:12 Insulin Aspart (*Bkc) 100 Units/Ml SUB-Q Not Given TIDWM [facility] Protocol Morphine Sulfate 2 mg 11/08/24 07:39 Morphine Sulfate (*Crx) 2 Mg/Ml Inj IV PUSH Q2H PRN Moderate Pain (4-6) Morphine Sulfate 4 mg 11/08/24 07:39 11/21/24 06:47 Morphine Sulfate (*Crx) 4 Mg/Ml Inj IV PUSH 4 mg Q2H PRN Administration Pain Rated 7-10 Naloxone HCl 0.1 mg 11/06/24 00:01 Naloxone Hcl 0.4 Mg/Ml Vial IV PUSH Q2M PRN Opiate Reversal Ondansetron HCl 4 mg 11/06/24 00:01 11/21/24 06:47 Ondansetron Inj 4 Mg/2 Ml Vial IV PUSH 4 mg Q4H PRN Administration Nausea And Vomiting Pantoprazole Sodium 40 mg 11/06/24 09:00 11/21/24 08:49 Pantoprazole Sodium Iv 40 Mg Vial IV PUSH 40 mg Q12HR SOURAV Administration Phenyleph/Shark Oil/[place] Butter 1 supp 11/19/24 18:18 11/19/24 18:33 Phenylephrine Hcl/[place] Butter Supp.Rect (*Bkc) RECTAL 1 supp Q12HR PRN Administration Hemorrhoids Thiamine HCl 100 mg 11/06/24 09:00 11/21/24 08:49 Thiamine Hcl 200 Mg/2 Ml Vial IV PUSH 100 mg QAM SOURAV Administration Radiology Results: ITS Impressions Head CT 11/05/24 20:50 IMPRESSION: 1. Moderate nonspecific cerebral white matter disease, which likely represents chronic small vessel ischemic disease. 2. 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 Upper GI Series 11/08/24 12:17 IMPRESSION: 1. Slow gastric emptying likely related to postoperative ileus. No extraluminal leakage of contrast. Chest/Abdomen/Pelvis CT 11/10/24 10:38 IMPRESSION: 1. Small volume of ascites with mass effect on right lateral aspect of the liver, likely an exudate. 2. Small pleural effusions. 3. Wall thickening of the descending and sigmoid colon and rectum, consistent with colitis versus interstitial edema. Catheter Placement CT 11/12/24 14:47 IMPRESSION: 1. Successful CT-guided right upper quadrant abdominal abscess drainage yielding yellow fluid. Modified Barium Swallow 11/13/24 12:24 IMPRESSION: 1. Laryngeal penetration. 2. Please refer to the speech therapy report for recommendations. Abdomen X-Ray 11/14/24 11:13 IMPRESSION: Nonspecific, nonobstructive bowel gas pattern. Supportive devices unchanged in position. Bilateral pleural effusions. If clinical suspicion persists, CT examination of the abdomen and pelvis (with intravenous contrast) is suggested for further evaluation. Renal Ultrasound 11/19/24 16:17 IMPRESSION: No hydronephrosis or renal calculi. Findings suggesting medical renal disease. Free fluid within the pelvis. Abdomen/Pelvis CT 11/20/24 14:44 IMPRESSION: Large bilateral pleural effusions, with bilateral lower lobe atelectasis. Infection in the lower lobes is not excluded. Single loop of dilated jejunum, likely representing localized ileus. Early/partial obstruction could appear similarly. Colonic wall thickening, as can be seen with colitis. Moderate ascites. Diffuse edema of the subcutaneous fat and mesenteric fat. Labs Labs: Laboratory Results - last 24 hr 11/20/24 11/20/24 11/20/24 16:30 17:05 20:13 WBC RBC Hgb Hct MCV MCH MCHC RDW Plt Count MPV Immature Gran % (Auto) Neut % (Auto) Lymph % (Auto) [place] % (Auto) Eos % (Auto) Baso % (Auto) Lymph # (Auto) [place] # (Auto) Eos # (Auto) Baso # (Auto) Abs Immat Gran (auto) Absolute Neuts (auto) Absolute Nucleated RBC Nucleated RBC % Sodium 139 Potassium 3.8 Chloride 113 H Carbon Dioxide 24 Anion Gap 2 L BUN 20 Creatinine 3.30 H Estim Creat Clear Calc 15 Estimated GFR 19 L Glucose 91 POC Capillary Glucose 101 90 Calcium 7.5 L Phosphorus Magnesium Total Bilirubin AST ALT Alkaline Phosphatase Total Protein Albumin 11/21/24 11/21/24 11/21/24 06:55 08:41 11:53 WBC 19.8 H RBC 3.32 L Hgb 9.6 L Hct 30.6 L MCV 92.2 MCH 28.9 MCHC 31.4 L RDW 14.8 H Plt Count 921 H MPV 10.0 Immature Gran % (Auto) 1.4 H Neut % (Auto) 86.4 H Lymph % (Auto) 6.8 L [place] % (Auto) 4.8 Eos % (Auto) 0.2 Baso % (Auto) 0.4 Lymph # (Auto) 1.35 [place] # (Auto) 1.0 H Eos # (Auto) 0.0 Baso # (Auto) 0.1 Abs Immat Gran (auto) 0.28 H Absolute Neuts (auto) 17.1 H Absolute Nucleated RBC 0.000 Nucleated RBC % 0.0 Sodium 142 Potassium 3.8 Chloride 113 H Carbon Dioxide 22 Anion Gap 7 BUN 23 H Creatinine 3.60 H Estim Creat Clear Calc 14 Estimated GFR 17 L Glucose 79 POC Capillary Glucose 85 80 Calcium 7.7 L Phosphorus 5.7 H Magnesium 2.1 Total Bilirubin 0.4 AST 21 ALT 10 Alkaline Phosphatase 113 Total Protein 6.0 L Albumin 2.6 L Quality VTE Prophylaxis VTE prophylaxis: mechanical ordered and pharmacologic ordered
--- NOTE | 2024-11-21 14:15 | PM.PNGS ---
Progress Note: A&P Assessment and Plan (1) Perforated gastric ulcer: Qualifiers: Gastric ulcer chronicity: acute Qualified Code(s): K25.1 - Acute gastric ulcer with perforation Code(s): K25.5 - Chronic or unspecified gastric ulcer with perforation Status: Acute Assessment and Plan: Wound healing well. Both drains in place. No suggestion of abdominal abscess or wound infection to explain leukocytosis. CT scan just done yesterday was negative for abdominal abscess or other source of leukocytosis. Subjective Subjective Date/Time Seen: 11/21/24 14:15 Patient reports: no new complaints and afebrile Interval history: Continued poor appetite. Patient tells me he is eating as much as he can. Review of Systems Review of Systems: All systems reviewed & are unremarkable except as noted in HPI and below (HPI) Exam Const: General: cooperative, alert, awake and malnourished Orientation/consciousness: No confusion GI: Inspection: non-distended, incision (No drainage, erythema associated with wound chencho, looks okay), scaphoid and other (Both drains in place, no purulent fluid noted) GI Palp: Yes Firmness to palpation present (GI), No Tenderness to palpation present (GI) and No Guarding due to palpation present (GI) Objective Data Vital Signs Vital Signs: Vital Signs - 24 hr 11/20/24 20:00 11/20/24 21:56 11/21/24 06:00 Temperature 36.9 C 37.0 C Pulse Rate 86 79 Respiratory Rate 18 18 Blood Pressure 150/83 H 153/81 H Pulse Oximetry 95 91 94 Oxygen Delivery Nasal Cannula Oxygen Flow Rate 2 11/21/24 08:00 11/21/24 08:15 11/21/24 08:15 Temperature Pulse Rate 84 84 Respiratory Rate 18 18 Blood Pressure Pulse Oximetry 94 94 Oxygen Delivery Nasal Cannula Nasal Cannula Oxygen Flow Rate 2 2 11/21/24 08:25 Temperature Pulse Rate 83 Respiratory Rate 18 Blood Pressure Pulse Oximetry Oxygen Delivery Oxygen Flow Rate Intake/Output Intake/Output: Intake & Output 11/18/24 11/19/24 11/20/24 11/21/24 23:59 23:59 23:59 23:59 Intake Total 1447.5 2040 200 477 Output Total 30 10 300 30 Balance 1417.5 2030 -100 447 Meds/Results Medications: Active Medications Generic Name Dose Route Start Last Admin Trade Name Freq PRN Reason Stop Dose Admin Acetaminophen 650 mg 11/06/24 14:48 11/07/24 19:10 Acetaminophen 650 Mg Suppository RECTAL 650 mg Q4H PRN Administration Mild Pain (1-3) or Fever Acetaminophen 650 mg 11/14/24 15:21 Acetaminophen Elixir 325 Mg/10.15 Ml Udc FEED TUBE Q4H PRN Headache, Fever, Mild Pain Hydrocodone Bitart/Acetaminophen 1 tab 11/08/24 13:37 11/18/24 00:29 Hydrocodone/Acetaminophen (*Crx) 5-325 Mg Tablet FEED TUBE 1 tab Q4H PRN Administration Pain Rated 4-6 Acetylcysteine 200 mg 11/09/24 20:00 11/21/24 08:15 Acetylcysteine 20% Inhal Soln 800 Mg/4 Ml Vial INHALATION 200 mg Q12HRT SOURAV Administration Albuterol 2.5 mg 11/09/24 15:38 11/21/24 08:15 Albuterol Sulfate Neb 2.5 Mg/3 Ml Inh INHALATION 2.5 mg Q12HR PRN Administration Shortness Of Breath Amlodipine Besylate 5 mg 11/11/24 09:00 11/21/24 08:48 Amlodipine Besylate 5 Mg Tablet PO 5 mg DAILY SOURAV Administration Dextrose 12.5 gm 11/06/24 07:40 Dextrose 50% 25 Gm/50 Ml Syringe IV PUSH PRN PRN Hypoglycemia Protocol Dronabinol 5 mg 11/17/24 17:00 11/21/24 08:48 Dronabinol (*Crx) 2.5 Mg Capsule PO 5 mg BID SOURAV Administration Enoxaparin Sodium 30 mg 11/18/24 09:00 11/21/24 08:48 Enoxaparin 30 Mg/0.3 Ml Syringe SUB-Q 30 mg DAILY SOURAV Administration Folic Acid 1 mg 11/06/24 09:00 11/21/24 08:48 Folic Acid 1 Mg/0.2 Ml Inj IV PUSH 1 mg QAM SOURAV Administration Glucagon 1 mg 11/06/24 07:40 Glucagon For Inj 1 Mg Vial IM PRN PRN Hypoglycemia Protocol Glucose 15 gm 11/06/24 07:40 Glucose Oral Gel 15 Gm Of Glucse In 37.5 Gm Tube PO PRN PRN Hypoglycemia Protocol Hydralazine HCl 10 mg 11/10/24 09:16 11/14/24 04:17 Hydralazine Hcl 20 Mg/Ml Vial IV PUSH 10 mg Q4HR PRN Administration Blood Pressure - High Hydrocortisone/Pramoxine 1 applic 11/20/24 21:00 11/21/24 08:48 Hydrocortisone/Pramoxine 2.5% 30 Gm Cream RECTAL 11/24/24 08:00 1 applic Q12HR SOURAV Administration Dextrose 1,000 mls @ 100 mls/hr 11/06/24 07:40 Dextrose 5% 1,000 Ml IVPB PRN PRN Hypoglycemia Protocol Micafungin Sodium 100 mg/ 100 mls @ 100 mls/hr 11/11/24 09:40 11/21/24 09:52 Sodium Chloride IVPB 11/24/24 09:59 Infused DAILY SOURAV Infusion Insulin Aspart 2 - 5 units 11/18/24 08:00 11/21/24 12:12 Insulin Aspart (*Bkc) 100 Units/Ml SUB-Q Not Given TIDWM [facility] Protocol Morphine Sulfate 2 mg 11/08/24 07:39 Morphine Sulfate (*Crx) 2 Mg/Ml Inj IV PUSH Q2H PRN Moderate Pain (4-6) Morphine Sulfate 4 mg 11/08/24 07:39 11/21/24 06:47 Morphine Sulfate (*Crx) 4 Mg/Ml Inj IV PUSH 4 mg Q2H PRN Administration Pain Rated 7-10 Naloxone HCl 0.1 mg 11/06/24 00:01 Naloxone Hcl 0.4 Mg/Ml Vial IV PUSH Q2M PRN Opiate Reversal Ondansetron HCl 4 mg 11/06/24 00:01 11/21/24 06:47 Ondansetron Inj 4 Mg/2 Ml Vial IV PUSH 4 mg Q4H PRN Administration Nausea And Vomiting Pantoprazole Sodium 40 mg 11/06/24 09:00 11/21/24 08:49 Pantoprazole Sodium Iv 40 Mg Vial IV PUSH 40 mg Q12HR SOURAV Administration Phenyleph/Shark Oil/[place] Butter 1 supp 11/19/24 18:18 11/19/24 18:33 Phenylephrine Hcl/[place] Butter Supp.Rect (*Bkc) RECTAL 1 supp Q12HR PRN Administration Hemorrhoids Thiamine HCl 100 mg 11/06/24 09:00 11/21/24 08:49 Thiamine Hcl 200 Mg/2 Ml Vial IV PUSH 100 mg QAM SOURAV Administration Radiology Results: ITS Impressions Head CT 11/05/24 20:50 IMPRESSION: 1. Moderate nonspecific cerebral white matter disease, which likely represents chronic small vessel ischemic disease. 2. 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 Upper GI Series 11/08/24 12:17 IMPRESSION: 1. Slow gastric emptying likely related to postoperative ileus. No extraluminal leakage of contrast. Chest/Abdomen/Pelvis CT 11/10/24 10:38 IMPRESSION: 1. Small volume of ascites with mass effect on right lateral aspect of the liver, likely an exudate. 2. Small pleural effusions. 3. Wall thickening of the descending and sigmoid colon and rectum, consistent with colitis versus interstitial edema. Catheter Placement CT 11/12/24 14:47 IMPRESSION: 1. Successful CT-guided right upper quadrant abdominal abscess drainage yielding yellow fluid. Modified Barium Swallow 11/13/24 12:24 IMPRESSION: 1. Laryngeal penetration. 2. Please refer to the speech therapy report for recommendations. Abdomen X-Ray 11/14/24 11:13 IMPRESSION: Nonspecific, nonobstructive bowel gas pattern. Supportive devices unchanged in position. Bilateral pleural effusions. If clinical suspicion persists, CT examination of the abdomen and pelvis (with intravenous contrast) is suggested for further evaluation. Renal Ultrasound 11/19/24 16:17 IMPRESSION: No hydronephrosis or renal calculi. Findings suggesting medical renal disease. Free fluid within the pelvis. Abdomen/Pelvis CT 11/20/24 14:44 IMPRESSION: Large bilateral pleural effusions, with bilateral lower lobe atelectasis. Infection in the lower lobes is not excluded. Single loop of dilated jejunum, likely representing localized ileus. Early/partial obstruction could appear similarly. Colonic wall thickening, as can be seen with colitis. Moderate ascites. Diffuse edema of the subcutaneous fat and mesenteric fat. Labs Labs: Laboratory Results - last 24 hr 11/20/24 11/20/24 11/20/24 16:30 17:05 20:13 WBC RBC Hgb Hct MCV MCH MCHC RDW Plt Count MPV Immature Gran % (Auto) Neut % (Auto) Lymph % (Auto) [place] % (Auto) Eos % (Auto) Baso % (Auto) Lymph # (Auto) [place] # (Auto) Eos # (Auto) Baso # (Auto) Abs Immat Gran (auto) Absolute Neuts (auto) Absolute Nucleated RBC Nucleated RBC % Sodium 139 Potassium 3.8 Chloride 113 H Carbon Dioxide 24 Anion Gap 2 L BUN 20 Creatinine 3.30 H Estim Creat Clear Calc 15 Estimated GFR 19 L Glucose 91 POC Capillary Glucose 101 90 Calcium 7.5 L Phosphorus Magnesium Total Bilirubin AST ALT Alkaline Phosphatase Total Protein Albumin 11/21/24 11/21/24 11/21/24 06:55 08:41 11:53 WBC 19.8 H RBC 3.32 L Hgb 9.6 L Hct 30.6 L MCV 92.2 MCH 28.9 MCHC 31.4 L RDW 14.8 H Plt Count 921 H MPV 10.0 Immature Gran % (Auto) 1.4 H Neut % (Auto) 86.4 H Lymph % (Auto) 6.8 L [place] % (Auto) 4.8 Eos % (Auto) 0.2 Baso % (Auto) 0.4 Lymph # (Auto) 1.35 [place] # (Auto) 1.0 H Eos # (Auto) 0.0 Baso # (Auto) 0.1 Abs Immat Gran (auto) 0.28 H Absolute Neuts (auto) 17.1 H Absolute Nucleated RBC 0.000 Nucleated RBC % 0.0 Sodium 142 Potassium 3.8 Chloride 113 H Carbon Dioxide 22 Anion Gap 7 BUN 23 H Creatinine 3.60 H Estim Creat Clear Calc 14 Estimated GFR 17 L Glucose 79 POC Capillary Glucose 85 80 Calcium 7.7 L Phosphorus 5.7 H Magnesium 2.1 Total Bilirubin 0.4 AST 21 ALT 10 Alkaline Phosphatase 113 Total Protein 6.0 L Albumin 2.6 L Leukocytosis new and noted this morning Imaging Attestation: I personally reviewed and interpreted this imaging study as follows: (Chest x-ray) My impression: Bilateral pleural effusions with bilateral atelectasis right worse than left Radiologist's impression: Not read as yet
[2024-11-21 16:56] LABS: Glucose Point of Care 65 mg/dl (65-105)
[2024-11-21] MEDS: DEXTROSE 50% 25 GM/50 ML SYRINGE IV PUSH (16:58)
[2024-11-21 17:39] LABS: Glucose Point of Care 105 mg/dl (65-105)
[2024-11-21] MEDS: SODIUM CHLORIDE 0.9% IV 1,000 ML 50 ML IV CONT (21:42)
[2024-11-21 23:17] LABS: Glucose Point of Care 95 mg/dl (65-105)
[2024-11-22] VITALS (8 sets, daily range): BP systolic 138–156; BP diastolic 69–87; PULSE 77–90; RESP 18–20; TEMP 36.7–37.1; O2SAT 86–92
[2024-11-22 06:48] LABS: Basophils Absolute Auto 0.1 K/mm3 (0.0-0.1); Basophils Percent Auto 0.5 % (0.2-1.2); Eosinophils Percent Auto 0.2 % (0-4.4); Hematocrit 29.6 % (42.0-52.0); Hemoglobin 9.2 g/dL (14.0-18.0); Immature Granulocyte Percent A 1.6 % (0-0.5); Lymphocytes Absolute Auto 1.29 K/mm3 (0.9-3.2); Mean Corpuscular HGB Conc 31.1 g/dl (32-36); Mean Corpuscular Hemoglobin 29.6 pg (26-34); Mean Corpuscular Volume 95.2 fl (80-100); Mean Platelet Volume 9.6 fl (7.4-10.4); Monocytes Percent Auto 5.6 % (2.6-8.5); Neutrophils Absolute Auto 15.6 K/mm3 (1.3-6.7); Neutrophils Percent Auto 85.1 % (45.5-73.1); Platelet Count Result 843 k/mm3 (150-375); Red Blood Count 3.11 M/mm3 (4.6-6.20); Red Cell Distribution Width 15.2 % (11.5-14.5); White Blood Count 18.4 K/mm3 (4.5-10.0)
[2024-11-22 07:03] LABS: Alanine Aminotransferase 9 U/L (6-50); Albumin Level 2.5 g/dL (3.5-5.1); Alkaline Phosphatase 102 U/L (38-126); Anion Gap 7 mmol/L (4-12); Aspartate Amino Transferase 18 U/L (17-59); Bilirubin,Total 0.4 mg/dL (0.2-1.3); Blood Urea Nitrogen 30 mg/dL (9-20); Calcium 7.7 mg/dL (8.4-10.2); Carbon Dioxide 21 mmol/L (22-30); Chloride 113 mmol/L (98-107); Estimated CRCL calculation 13 ml/min; Estimated Glomerular Filt Rate 15; Glucose 77 mg/dL (65-110); Magnesium 2.2 mg/dL (1.6-2.3); Phosphorus 6.7 mg/dL (2.5-4.5); Potassium 4.2 mmol/L (3.4-5.0); Sodium 141 mmol/L (137-145)
[2024-11-22 07:48] LABS: Glucose Point of Care 75 mg/dl (65-105)
[2024-11-22] MEDS: ALBUTEROL SULFATE NEB 2.5 MG/3 ML INH INHALATION ×2 (08:13→20:39)
[2024-11-22] MEDS: ACETYLCYSTEINE 20% INHAL SOLN 800 MG/4 ML VIAL 200 MG INHALATION ×2 (08:13→20:38)
[2024-11-22] MEDS: amLODIPine BESYLATE 5 MG TABLET PO (09:11)
[2024-11-22] MEDS: droNABinol (*CRX) 2.5 MG CAPSULE 5 MG PO ×2 (09:11→17:45)
[2024-11-22] MEDS: THIAMINE HCL 200 MG/2 ML VIAL 100 MG IV PUSH (09:14)
[2024-11-22] MEDS: PANTOPRAZOLE SODIUM IV 40 MG VIAL IV PUSH ×2 (09:14→20:23)
[2024-11-22] MEDS: FOLIC ACID 1 MG/0.2 ML INJ IV PUSH (09:15)
[2024-11-22] MEDS: ENOXAPARIN 30 MG/0.3 ML SYRINGE SUB-Q (09:15)
[2024-11-22] MEDS: MICAFUNGIN SODIUM 100 MG in SODIUM CHLORIDE 0.9% IV 100 ML IVPB (09:18)
[2024-11-22] MEDS: HYDROCORTISONE/PRAMOXINE 2.5% 30 GM CREAM 1 APPLIC RECTAL ×2 (09:19→22:53)
--- NOTE | 2024-11-22 09:32 | PCPTNOTE ---
Patient declined PT stating maybe later. Educated the patient on the importance of participating in therapy to improve strength and mobility.
--- NOTE | 2024-11-22 10:10 | PCOTNOTE ---
Attempted to see Patient at this time. Patient declined therapy, stated he does not feel well, and having tests performed.
--- NOTE | 2024-11-22 10:31 | P.PNIM_ITS ---
Progress Note: A&P Assessment and Plan (1) Metabolic acidosis: Code(s): E87.20 - Acidosis, unspecified Status: Acute Assessment and Plan: Gradually improving, will continue current treatment and monitor. (2) DEBI (acute kidney injury): Code(s): N17.9 - Acute kidney failure, unspecified Status: Acute Assessment and Plan: Creatinine stable around 3. Kidney ultrasound medical disease (3) Perforated gastric ulcer: Qualifiers: Gastric ulcer chronicity: acute Qualified Code(s): K25.1 - Acute gastric ulcer with perforation Code(s): K25.5 - Chronic or unspecified gastric ulcer with perforation Status: Acute Assessment and Plan: Continue with Protonix and monitor hgb (4) COPD (chronic obstructive pulmonary disease): Code(s): J44.9 - Chronic obstructive pulmonary disease, unspecified Status: Acute Assessment and Plan: Stable on current medications. Will continue current treatment. (5) Sepsis: Code(s): A41.9 - Sepsis, unspecified organism Status: Acute Assessment and Plan: Continue antibiotics and monitor cultures (6) Pneumonia: Code(s): J18.9 - Pneumonia, unspecified organism Status: Acute Assessment and Plan: Continue antibiotics gradually getting better (7) Acute hypoxic respiratory failure: Code(s): J96.01 - Acute respiratory failure with hypoxia Status: Acute Assessment and Plan: Better and improving (8) Sepsis associated hypotension: Code(s): A41.9 - Sepsis, unspecified organism; I95.9 - Hypotension, unspecified Status: Acute Assessment and Plan: Continue IV antibiotics and monitor cultures (9) EtOH dependence: Code(s): F10.20 - Alcohol dependence, uncomplicated Status: Acute Assessment and Plan: Counselling given Plan Code status full DVT prophylaxis on Sq Lovenox PT/OT following Subjective Date/time seen: 11/22/24 10:31 Interval history: Patient was previously admitted in the hospital and was discharged and return back with altered mental status for/difficulty breathing. Patient had a perforated viscus which was surgically fixed. Status post HARLEY drain. Patient has bilateral edema ordered ultrasound of the leg which is pending. Patient is currently on micafungin. 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 Cardiac: RRR. Normal S1 S2. No murmurs Abdomen: Decreased but present bowel sounds. HARLEY drain in place. Soft. Tender t o palpation as patient grimaces on exam. Extremities: No clubbing, cyanosis or edema. Warm : Shen in place Neurologic: Patient is able to move all 4 extremities spontaneously. Objective Data Vital Signs Vital Signs: Vital Signs - 24 hr 11/21/24 14:00 11/21/24 20:55 11/21/24 21:30 Temperature 98.5 F Pulse Rate 91 77 Respiratory Rate 18 18 Blood Pressure 166/79 H Pulse Oximetry 92 94 Oxygen Delivery Nasal Cannula Oxygen Flow Rate 2 11/21/24 21:35 11/21/24 21:43 11/21/24 22:00 Temperature 99 F Pulse Rate 78 90 Respiratory Rate 20 18 Blood Pressure 130/56 L Pulse Oximetry 90 99 Oxygen Delivery Nasal Cannula Oxygen Flow Rate 2 11/22/24 06:00 Temperature 98.1 F Pulse Rate 80 Respiratory Rate 18 Blood Pressure 156/87 H Pulse Oximetry 91 Oxygen Delivery Oxygen Flow Rate Intake/Output Intake/Output: Intake & Output 11/19/24 11/20/24 11/21/24 11/22/24 23:59 23:59 23:59 23:59 Intake Total 2040 200 477 480 Output Total 10 300 35 Balance 2030 -100 442 480 Meds/Results Medications: Active Medications Generic Name Dose Route Start Last Admin Trade Name Freq PRN Reason Stop Dose Admin Acetaminophen 650 mg 11/06/24 14:48 11/07/24 19:10 Acetaminophen 650 Mg Suppository RECTAL 650 mg Q4H PRN Administration Mild Pain (1-3) or Fever Acetaminophen 650 mg 11/14/24 15:21 Acetaminophen Elixir 325 Mg/10.15 Ml Udc FEED TUBE Q4H PRN Headache, Fever, Mild Pain Hydrocodone Bitart/Acetaminophen 1 tab 11/08/24 13:37 11/18/24 00:29 Hydrocodone/Acetaminophen (*Crx) 5-325 Mg Tablet FEED TUBE 1 tab Q4H PRN Administration Pain Rated 4-6 Acetylcysteine 200 mg 11/09/24 20:00 11/22/24 08:13 Acetylcysteine 20% Inhal Soln 800 Mg/4 Ml Vial INHALATION 200 mg Q12HRT SOURAV Administration Albuterol 2.5 mg 11/09/24 15:38 11/21/24 21:29 Albuterol Sulfate Neb 2.5 Mg/3 Ml Inh INHALATION 2.5 mg Q12HR PRN Administration Shortness Of Breath Amlodipine Besylate 5 mg 11/11/24 09:00 11/22/24 09:11 Amlodipine Besylate 5 Mg Tablet PO 5 mg DAILY SOURAV Administration Dextrose 12.5 gm 11/06/24 07:40 11/21/24 16:58 Dextrose 50% 25 Gm/50 Ml Syringe IV PUSH 12.5 gm PRN PRN Administration Hypoglycemia Protocol Dronabinol 5 mg 11/17/24 17:00 11/22/24 09:11 Dronabinol (*Crx) 2.5 Mg Capsule PO 5 mg BID SOURAV Administration Enoxaparin Sodium 30 mg 11/18/24 09:00 11/22/24 09:15 Enoxaparin 30 Mg/0.3 Ml Syringe SUB-Q 30 mg DAILY SOURAV Administration Folic Acid 1 mg 11/06/24 09:00 11/22/24 09:15 Folic Acid 1 Mg/0.2 Ml Inj IV PUSH 1 mg QAM SOURAV Administration Glucagon 1 mg 11/06/24 07:40 Glucagon For Inj 1 Mg Vial IM PRN PRN Hypoglycemia Protocol Glucose 15 gm 11/06/24 07:40 Glucose Oral Gel 15 Gm Of Glucse In 37.5 Gm Tube PO PRN PRN Hypoglycemia Protocol Hydralazine HCl 10 mg 11/10/24 09:16 11/14/24 04:17 Hydralazine Hcl 20 Mg/Ml Vial IV PUSH 10 mg Q4HR PRN Administration Blood Pressure - High Hydrocortisone/Pramoxine 1 applic 11/20/24 21:00 11/22/24 09:19 Hydrocortisone/Pramoxine 2.5% 30 Gm Cream RECTAL 11/24/24 08:00 1 applic Q12HR SOURAV Administration Dextrose 1,000 mls @ 100 mls/hr 11/06/24 07:40 Dextrose 5% 1,000 Ml IVPB PRN PRN Hypoglycemia Protocol Micafungin Sodium 100 mg/ 100 mls @ 100 mls/hr 11/11/24 09:40 11/22/24 09:18 Sodium Chloride IVPB 11/24/24 09:59 100 mls/hr DAILY SOURAV Administration Sodium Chloride 1,000 mls @ 50 mls/hr 11/21/24 21:15 11/21/24 21:42 Normal Saline Iv IV CONT 50 mls/hr .Q20H SOURAV Administration Insulin Aspart 2 - 5 units 11/18/24 08:00 11/22/24 09:03 Insulin Aspart (*Bkc) 100 Units/Ml SUB-Q Not Given TIDWM [facility] Protocol Morphine Sulfate 2 mg 11/08/24 07:39 Morphine Sulfate (*Crx) 2 Mg/Ml Inj IV PUSH Q2H PRN Moderate Pain (4-6) Morphine Sulfate 4 mg 11/08/24 07:39 11/21/24 06:47 Morphine Sulfate (*Crx) 4 Mg/Ml Inj IV PUSH 4 mg Q2H PRN Administration Pain Rated 7-10 Naloxone HCl 0.1 mg 11/06/24 00:01 Naloxone Hcl 0.4 Mg/Ml Vial IV PUSH Q2M PRN Opiate Reversal Ondansetron HCl 4 mg 11/06/24 00:01 11/21/24 06:47 Ondansetron Inj 4 Mg/2 Ml Vial IV PUSH 4 mg Q4H PRN Administration Nausea And Vomiting Pantoprazole Sodium 40 mg 11/06/24 09:00 11/22/24 09:14 Pantoprazole Sodium Iv 40 Mg Vial IV PUSH 40 mg Q12HR SOURAV Administration Phenyleph/Shark Oil/[place] Butter 1 supp 11/19/24 18:18 11/19/24 18:33 Phenylephrine Hcl/[place] Butter Supp.Rect (*Bkc) RECTAL 1 supp Q12HR PRN Administration Hemorrhoids Thiamine HCl 100 mg 11/06/24 09:00 11/22/24 09:14 Thiamine Hcl 200 Mg/2 Ml Vial IV PUSH 100 mg QAM SOURAV Administration Radiology Results: ITS Impressions Head CT 11/05/24 20:50 IMPRESSION: 1. Moderate nonspecific cerebral white matter disease, which likely represents chronic small vessel ischemic disease. 2. 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 Upper GI Series 11/08/24 12:17 IMPRESSION: 1. Slow gastric emptying likely related to postoperative ileus. No extraluminal leakage of contrast. Chest/Abdomen/Pelvis CT 11/10/24 10:38 IMPRESSION: 1. Small volume of ascites with mass effect on right lateral aspect of the liver, likely an exudate. 2. Small pleural effusions. 3. Wall thickening of the descending and sigmoid colon and rectum, consistent with colitis versus interstitial edema. Catheter Placement CT 11/12/24 14:47 IMPRESSION: 1. Successful CT-guided right upper quadrant abdominal abscess drainage yielding yellow fluid. Modified Barium Swallow 11/13/24 12:24 IMPRESSION: 1. Laryngeal penetration. 2. Please refer to the speech therapy report for recommendations. Abdomen X-Ray 11/14/24 11:13 IMPRESSION: Nonspecific, nonobstructive bowel gas pattern. Supportive devices unchanged in position. Bilateral pleural effusions. If clinical suspicion persists, CT examination of the abdomen and pelvis (with intravenous contrast) is suggested for further evaluation. Renal Ultrasound 11/19/24 16:17 IMPRESSION: No hydronephrosis or renal calculi. Findings suggesting medical renal disease. Free fluid within the pelvis. Abdomen/Pelvis CT 11/20/24 14:44 IMPRESSION: Large bilateral pleural effusions, with bilateral lower lobe atelectasis. Infection in the lower lobes is not excluded. Single loop of dilated jejunum, likely representing localized ileus. Early/partial obstruction could appear similarly. Colonic wall thickening, as can be seen with colitis. Moderate ascites. Diffuse edema of the subcutaneous fat and mesenteric fat. Chest X-Ray 11/21/24 14:19 IMPRESSION: Moderate bilateral pleural effusions, likely with bibasilar atelectasis. Infection not excluded. Labs Labs: Laboratory Results - last 24 hr 11/21/24 11/21/24 11/21/24 11:53 16:52 17:36 WBC RBC Hgb Hct MCV MCH MCHC RDW Plt Count MPV Immature Gran % (Auto) Neut % (Auto) Lymph % (Auto) [place] % (Auto) Eos % (Auto) Baso % (Auto) Lymph # (Auto) [place] # (Auto) Eos # (Auto) Baso # (Auto) Abs Immat Gran (auto) Absolute Neuts (auto) Absolute Nucleated RBC Nucleated RBC % Sodium Potassium Chloride Carbon Dioxide Anion Gap BUN Creatinine Estim Creat Clear Calc Estimated GFR Glucose POC Capillary Glucose 80 65 105 Calcium Phosphorus Magnesium Total Bilirubin AST ALT Alkaline Phosphatase Total Protein Albumin 11/21/24 11/22/24 11/22/24 23:13 06:40 07:42 WBC 18.4 H RBC 3.11 L Hgb 9.2 L Hct 29.6 L MCV 95.2 MCH 29.6 MCHC 31.1 L RDW 15.2 H Plt Count 843 H MPV 9.6 Immature Gran % (Auto) 1.6 H Neut % (Auto) 85.1 H Lymph % (Auto) 7.0 L [place] % (Auto) 5.6 Eos % (Auto) 0.2 Baso % (Auto) 0.5 Lymph # (Auto) 1.29 [place] # (Auto) 1.0 H Eos # (Auto) 0.0 Baso # (Auto) 0.1 Abs Immat Gran (auto) 0.30 H Absolute Neuts (auto) 15.6 H Absolute Nucleated RBC 0.000 Nucleated RBC % 0.0 Sodium 141 Potassium 4.2 Chloride 113 H Carbon Dioxide 21 L Anion Gap 7 BUN 30 H Creatinine 3.90 H Estim Creat Clear Calc 13 Estimated GFR 15 L Glucose 77 POC Capillary Glucose 95 75 Calcium 7.7 L Phosphorus 6.7 H Magnesium 2.2 Total Bilirubin 0.4 AST 18 ALT 9 Alkaline Phosphatase 102 Total Protein 6.0 L Albumin 2.5 L Quality VTE Prophylaxis VTE prophylaxis: mechanical ordered and pharmacologic ordered Hospitalist MIPS Advance Care Plan I have confirmed that the patient's Advanced Care Plan is present, code status is documented, or surrogate decision maker is listed in patient medical record.: Yes Medication Reconciliation I have utilized all available resources to obtain, update and review the patients current medications (includes all prescriptions, OTC, herbals, cannabis, and nutritional supplements).: Yes
--- NOTE | 2024-11-22 10:47 | P.PNGS_ITS ---
Progress Note: A&P Assessment and Plan (1) Perforated gastric ulcer: Qualifiers: Gastric ulcer chronicity: acute Qualified Code(s): K25.1 - Acute gastric ulcer with perforation Code(s): K25.5 - Chronic or unspecified gastric ulcer with perforation Status: Acute Assessment and Plan: exam benign, will remove HARLEY, cont abx, encourage po, OOB, PT/OT Subjective Subjective Date/Time Seen: 11/22/24 10:47 Interval history: no acute issues, cont to have poor appetite, reports no pain Review of Systems Review of Systems: All systems reviewed & are unremarkable except as noted in HPI and below Exam Const: General: cooperative, comfortable, no acute distress and ill appearing Resp: Auscultation: diminished lung sounds Cardio: Rate: regular rate Rhythm: regular rhythm GI: Inspection: incision GI Palp: No abdominal tenderness and Yes Soft to palpation Other: HARLEY c air, minimal drainage, perc drain c minimal serous drainage Objective Data Vital Signs Vital Signs: Vital Signs - 24 hr 11/21/24 14:00 11/21/24 20:55 11/21/24 21:30 Temperature 36.9 C Pulse Rate 91 77 Respiratory Rate 18 18 Blood Pressure 166/79 H Pulse Oximetry 92 94 Oxygen Delivery Nasal Cannula Oxygen Flow Rate 2 11/21/24 21:35 11/21/24 21:43 11/21/24 22:00 Temperature 37.2 C Pulse Rate 78 90 Respiratory Rate 20 18 Blood Pressure 130/56 L Pulse Oximetry 90 99 Oxygen Delivery Nasal Cannula Oxygen Flow Rate 2 11/22/24 06:00 Temperature 36.7 C Pulse Rate 80 Respiratory Rate 18 Blood Pressure 156/87 H Pulse Oximetry 91 Oxygen Delivery Oxygen Flow Rate Intake/Output Intake/Output: Intake & Output 11/19/24 11/20/24 11/21/24 11/22/24 23:59 23:59 23:59 23:59 Intake Total 0 200 477 480 Output Total 10 300 35 Balance 2030 -100 442 480 Meds/Results Medications: Active Medications Generic Name Dose Route Start Last Admin Trade Name Freq PRN Reason Stop Dose Admin Acetaminophen 650 mg 11/06/24 14:48 11/07/24 19:10 Acetaminophen 650 Mg Suppository RECTAL 650 mg Q4H PRN Administration Mild Pain (1-3) or Fever Acetaminophen 650 mg 11/14/24 15:21 Acetaminophen Elixir 325 Mg/10.15 Ml Udc FEED TUBE Q4H PRN Headache, Fever, Mild Pain Hydrocodone Bitart/Acetaminophen 1 tab 11/08/24 13:37 11/18/24 00:29 Hydrocodone/Acetaminophen (*Crx) 5-325 Mg Tablet FEED TUBE 1 tab Q4H PRN Administration Pain Rated 4-6 Acetylcysteine 200 mg 11/09/24 20:00 11/22/24 08:13 Acetylcysteine 20% Inhal Soln 800 Mg/4 Ml Vial INHALATION 200 mg Q12HRT SOURAV Administration Albuterol 2.5 mg 11/09/24 15:38 11/21/24 21:29 Albuterol Sulfate Neb 2.5 Mg/3 Ml Inh INHALATION 2.5 mg Q12HR PRN Administration Shortness Of Breath Amlodipine Besylate 5 mg 11/11/24 09:00 11/22/24 09:11 Amlodipine Besylate 5 Mg Tablet PO 5 mg DAILY SOURAV Administration Dextrose 12.5 gm 11/06/24 07:40 11/21/24 16:58 Dextrose 50% 25 Gm/50 Ml Syringe IV PUSH 12.5 gm PRN PRN Administration Hypoglycemia Protocol Dronabinol 5 mg 11/17/24 17:00 11/22/24 09:11 Dronabinol (*Crx) 2.5 Mg Capsule PO 5 mg BID SOURAV Administration Enoxaparin Sodium 30 mg 11/18/24 09:00 11/22/24 09:15 Enoxaparin 30 Mg/0.3 Ml Syringe SUB-Q 30 mg DAILY SOURAV Administration Folic Acid 1 mg 11/06/24 09:00 11/22/24 09:15 Folic Acid 1 Mg/0.2 Ml Inj IV PUSH 1 mg QAM SOURAV Administration Glucagon 1 mg 11/06/24 07:40 Glucagon For Inj 1 Mg Vial IM PRN PRN Hypoglycemia Protocol Glucose 15 gm 11/06/24 07:40 Glucose Oral Gel 15 Gm Of Glucse In 37.5 Gm Tube PO PRN PRN Hypoglycemia Protocol Hydralazine HCl 10 mg 11/10/24 09:16 11/14/24 04:17 Hydralazine Hcl 20 Mg/Ml Vial IV PUSH 10 mg Q4HR PRN Administration Blood Pressure - High Hydrocortisone/Pramoxine 1 applic 11/20/24 21:00 11/22/24 09:19 Hydrocortisone/Pramoxine 2.5% 30 Gm Cream RECTAL 11/24/24 08:00 1 applic Q12HR SOURAV Administration Dextrose 1,000 mls @ 100 mls/hr 11/06/24 07:40 Dextrose 5% 1,000 Ml IVPB PRN PRN Hypoglycemia Protocol Micafungin Sodium 100 mg/ 100 mls @ 100 mls/hr 11/11/24 09:40 11/22/24 09:18 Sodium Chloride IVPB 11/24/24 09:59 100 mls/hr DAILY SOURAV Administration Sodium Chloride 1,000 mls @ 50 mls/hr 11/21/24 21:15 11/21/24 21:42 Normal Saline Iv IV CONT 50 mls/hr .Q20H SOURAV Administration Insulin Aspart 2 - 5 units 11/18/24 08:00 11/22/24 09:03 Insulin Aspart (*Bkc) 100 Units/Ml SUB-Q Not Given TIDWM SOURAV Protocol Morphine Sulfate 2 mg 11/08/24 07:39 Morphine Sulfate (*Crx) 2 Mg/Ml Inj IV PUSH Q2H PRN Moderate Pain (4-6) Morphine Sulfate 4 mg 11/08/24 07:39 11/21/24 06:47 Morphine Sulfate (*Crx) 4 Mg/Ml Inj IV PUSH 4 mg Q2H PRN Administration Pain Rated 7-10 Naloxone HCl 0.1 mg 11/06/24 00:01 Naloxone Hcl 0.4 Mg/Ml Vial IV PUSH Q2M PRN Opiate Reversal Ondansetron HCl 4 mg 11/06/24 00:01 11/21/24 06:47 Ondansetron Inj 4 Mg/2 Ml Vial IV PUSH 4 mg Q4H PRN Administration Nausea And Vomiting Pantoprazole Sodium 40 mg 11/06/24 09:00 11/22/24 09:14 Pantoprazole Sodium Iv 40 Mg Vial IV PUSH 40 mg Q12HR SOURAV Administration Phenyleph/Shark Oil/[place] Butter 1 supp 11/19/24 18:18 11/19/24 18:33 Phenylephrine Hcl/[place] Butter Supp.Rect (*Bkc) RECTAL 1 supp Q12HR PRN Administration Hemorrhoids Thiamine HCl 100 mg 11/06/24 09:00 11/22/24 09:14 Thiamine Hcl 200 Mg/2 Ml Vial IV PUSH 100 mg QAM SOURAV Administration Radiology Results: ITS Impressions Head CT 11/05/24 20:50 IMPRESSION: 1. Moderate nonspecific cerebral white matter disease, which likely represents chronic small vessel ischemic disease. 2. 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 Upper GI Series 11/08/24 12:17 IMPRESSION: 1. Slow gastric emptying likely related to postoperative ileus. No extraluminal leakage of contrast. Chest/Abdomen/Pelvis CT 11/10/24 10:38 IMPRESSION: 1. Small volume of ascites with mass effect on right lateral aspect of the liver, likely an exudate. 2. Small pleural effusions. 3. Wall thickening of the descending and sigmoid colon and rectum, consistent with colitis versus interstitial edema. Catheter Placement CT 11/12/24 14:47 IMPRESSION: 1. Successful CT-guided right upper quadrant abdominal abscess drainage yielding yellow fluid. Modified Barium Swallow 11/13/24 12:24 IMPRESSION: 1. Laryngeal penetration. 2. Please refer to the speech therapy report for recommendations. Abdomen X-Ray 11/14/24 11:13 IMPRESSION: Nonspecific, nonobstructive bowel gas pattern. Supportive devices unchanged in position. Bilateral pleural effusions. If clinical suspicion persists, CT examination of the abdomen and pelvis (with intravenous contrast) is suggested for further evaluation. Renal Ultrasound 11/19/24 16:17 IMPRESSION: No hydronephrosis or renal calculi. Findings suggesting medical renal disease. Free fluid within the pelvis. Abdomen/Pelvis CT 11/20/24 14:44 IMPRESSION: Large bilateral pleural effusions, with bilateral lower lobe atelectasis. Infection in the lower lobes is not excluded. Single loop of dilated jejunum, likely representing localized ileus. Early/partial obstruction could appear similarly. Colonic wall thickening, as can be seen with colitis. Moderate ascites. Diffuse edema of the subcutaneous fat and mesenteric fat. Chest X-Ray 11/21/24 14:19 IMPRESSION: Moderate bilateral pleural effusions, likely with bibasilar atelectasis. Infection not excluded. Labs Labs: Laboratory Results - last 24 hr 11/21/24 11/21/24 11/21/24 11:53 16:52 17:36 WBC RBC Hgb Hct MCV MCH MCHC RDW Plt Count MPV Immature Gran % (Auto) Neut % (Auto) Lymph % (Auto) [place] % (Auto) Eos % (Auto) Baso % (Auto) Lymph # (Auto) [place] # (Auto) Eos # (Auto) Baso # (Auto) Abs Immat Gran (auto) Absolute Neuts (auto) Absolute Nucleated RBC Nucleated RBC % Sodium Potassium Chloride Carbon Dioxide Anion Gap BUN Creatinine Estim Creat Clear Calc Estimated GFR Glucose POC Capillary Glucose 80 65 105 Calcium Phosphorus Magnesium Total Bilirubin AST ALT Alkaline Phosphatase Total Protein Albumin 11/21/24 11/22/24 11/22/24 23:13 06:40 07:42 WBC 18.4 H RBC 3.11 L Hgb 9.2 L Hct 29.6 L MCV 95.2 MCH 29.6 MCHC 31.1 L RDW 15.2 H Plt Count 843 H MPV 9.6 Immature Gran % (Auto) 1.6 H Neut % (Auto) 85.1 H Lymph % (Auto) 7.0 L [place] % (Auto) 5.6 Eos % (Auto) 0.2 Baso % (Auto) 0.5 Lymph # (Auto) 1.29 [place] # (Auto) 1.0 H Eos # (Auto) 0.0 Baso # (Auto) 0.1 Abs Immat Gran (auto) 0.30 H Absolute Neuts (auto) 15.6 H Absolute Nucleated RBC 0.000 Nucleated RBC % 0.0 Sodium 141 Potassium 4.2 Chloride 113 H Carbon Dioxide 21 L Anion Gap 7 BUN 30 H Creatinine 3.90 H Estim Creat Clear Calc 13 Estimated GFR 15 L Glucose 77 POC Capillary Glucose 95 75 Calcium 7.7 L Phosphorus 6.7 H Magnesium 2.2 Total Bilirubin 0.4 AST 18 ALT 9 Alkaline Phosphatase 102 Total Protein 6.0 L Albumin 2.5 L
[2024-11-22 11:33] LABS: Glucose Point of Care 77 mg/dl (65-105)
--- NOTE | 2024-11-22 12:15 | PCNFU ---
Nutrition Follow-Up Complete: Alerted GI function as related to perforated gastric ulcer as evidenced by NPO. Pt no longer NPO, on diet. Noted has refused tube feedings. Goal:Meet estimated nutritional needs. Pt not meeting goal. Pt current nutrition is Pureed, level 2 liquids. Nutrition recommendation: encourage po intake of meals and supplements Last recorded weight is 55.7 kg. Bowel Motility:+BM 1/2 Labs Reviewed: Hgb:9.2, HCT:29.6, Alb:2.5, GFR:15, BUN:30, Cr:3.9 Meds Noted: protonix, insulin, lovenox Skin: WNL Additional Notes: Pt continues on a pureed diet, level 2 thickened liquids, pt picks at food with minimal intake. Nursing encourages during meals, also encouraging Ensure shakes. Continue to encourage when possible. Will monitor weight, labs, skin, intake. Follow up every 3 days.
--- NOTE | 2024-11-22 13:25 | P.PNNP_ITS ---
Progress Note: A&P Assessment and Plan (1) DEBI (acute kidney injury): Code(s): N17.9 - Acute kidney failure, unspecified Status: Acute Assessment and Plan: * initial insult on admission was due to sepsis hypotension, fluid shifts and hypovolemia * resolved with supportive therapy * second episode noted on 11/18...creatinine increased from 0.9 -> 2.2 -> 3.0mg/dl today * etiology of second episode is not entirely clear... * suspect ATN from prerenal azotemia secondary to third spacing given recent abdominal surgery compounded by his diminished oral intake * recent CT scan noted (ascites, pleural effusions, anasarca...) * evaluation to date noted: * renal ultrasound without obstruction but with medical renal disease * urine electrolytes prerenal * UA not indicative of infection * urine eosinophils negative * mild proteiuria noted (~ 1300mg proteinuria) * CPK low * consider diuresis if respiratory status declines... * follow trend of repeat labs and UOP (2) Perforated gastric ulcer: Qualifiers: Gastric ulcer chronicity: acute Qualified Code(s): K25.1 - Acute gastric ulcer with perforation Code(s): K25.5 - Chronic or unspecified gastric ulcer with perforation Status: Acute Assessment and Plan: * s/p exploratory laparotomy, extensive lysis of adhesions, intra-abdominal washout, repair of perforated gastric ulcer with omental patch * on antibiotics * local wound care * Surgery following (3) Hypertension: Code(s): I10 - Essential (primary) hypertension Status: Chronic Assessment and Plan: * as noted by recent BP readings * likely an undiagnosed condition * follow trend of hemodynamics (4) COPD (chronic obstructive pulmonary disease): Code(s): J44.9 - Chronic obstructive pulmonary disease, unspecified Status: Acute Assessment and Plan: * not in exacerbation * bronchodilators as needed (5) Severe protein-calorie malnutrition: Code(s): E43 - Unspecified severe protein-calorie malnutrition Status: Acute Assessment and Plan: * on dronabinol 5mg bid * advance diet as tolerated (6) EtOH dependence: Code(s): F10.20 - Alcohol dependence, uncomplicated Status: Acute Assessment and Plan: * known history * continue thiamine and folic acid Will continue to follow. L Subjective Date/time seen: 11/22/24 13:25 Interval history: Follow-up for acute kidney injury/acute renal failure. Renal function/creatinine continues to worsen but apparently still making reasonable urine (difficult to assess by I/Os); no apparent distress noted at the time of my visit; no acute issues/events overnight or earlier this morning. Exam 2 Narrative: General: elderly male in NAD Heart: normal S1 and S2; no rub Lungs: clear anteriorly Abdomen: mild TTP and distension; decreased bowel sounds Extremities: no cyanosis or clubbing; no edema Skin: no rash Objective Data Vital Signs Vital Signs: Vital Signs Temp Pulse Resp BP Pulse Ox O2 Del Method O2 Flow Rate 11/22/24 13:00 98.8 F 89 20 138/69 11/22/24 08:31 80 18 11/22/24 08:13 77 18 11/22/24 08:13 91 Nasal Cannula 2 11/22/24 08:00 92 Nasal Cannula 2 11/22/24 06:00 98.1 F 80 18 156/87 H 91 11/21/24 22:00 99 F 90 18 130/56 L 99 11/21/24 21:43 78 20 11/21/24 21:35 90 Nasal Cannula 2 11/21/24 21:30 77 18 11/21/24 20:55 94 Nasal Cannula 2 Intake/Output Intake/Output: Intake & Output 11/19/24 11/20/24 11/21/24 11/22/24 23:59 23:59 23:59 23:59 Intake Total 2039 356 522 8159 Output Total 10 300 35 Balance 2030 -842 492 6431 Meds/Results Medications: Active Medications Generic Name Dose Route Start Last Admin Trade Name Freq PRN Reason Stop Dose Admin Acetaminophen 650 mg 11/06/24 14:48 11/07/24 19:10 Acetaminophen 650 Mg Suppository RECTAL 650 mg Q4H PRN Administration Mild Pain (1-3) or Fever Acetaminophen 650 mg 11/14/24 15:21 Acetaminophen Elixir 325 Mg/10.15 Ml Udc FEED TUBE Q4H PRN Headache, Fever, Mild Pain Hydrocodone Bitart/Acetaminophen 1 tab 11/08/24 13:37 11/18/24 00:29 Hydrocodone/Acetaminophen (*Crx) 5-325 Mg Tablet FEED TUBE 1 tab Q4H PRN Administration Pain Rated 4-6 Acetylcysteine 200 mg 11/09/24 20:00 11/22/24 08:13 Acetylcysteine 20% Inhal Soln 800 Mg/4 Ml Vial INHALATION 200 mg Q12HRT SOURAV Administration Albuterol 2.5 mg 11/09/24 15:38 11/22/24 08:13 Albuterol Sulfate Neb 2.5 Mg/3 Ml Inh INHALATION 2.5 mg Q12HR PRN Administration Shortness Of Breath Amlodipine Besylate 5 mg 11/11/24 09:00 11/22/24 09:11 Amlodipine Besylate 5 Mg Tablet PO 5 mg DAILY SOURAV Administration Dextrose 12.5 gm 11/06/24 07:40 11/21/24 16:58 Dextrose 50% 25 Gm/50 Ml Syringe IV PUSH 12.5 gm PRN PRN Administration Hypoglycemia Protocol Dronabinol 5 mg 11/17/24 17:00 11/22/24 17:45 Dronabinol (*Crx) 2.5 Mg Capsule PO 5 mg BID SOURAV Administration Enoxaparin Sodium 30 mg 11/18/24 09:00 11/22/24 09:15 Enoxaparin 30 Mg/0.3 Ml Syringe SUB-Q 30 mg DAILY SOURAV Administration Folic Acid 1 mg 11/06/24 09:00 11/22/24 09:15 Folic Acid 1 Mg/0.2 Ml Inj IV PUSH 1 mg QAM SOURAV Administration Glucagon 1 mg 11/06/24 07:40 Glucagon For Inj 1 Mg Vial IM PRN PRN Hypoglycemia Protocol Glucose 15 gm 11/06/24 07:40 Glucose Oral Gel 15 Gm Of Glucse In 37.5 Gm Tube PO PRN PRN Hypoglycemia Protocol Hydralazine HCl 10 mg 11/10/24 09:16 11/14/24 04:17 Hydralazine Hcl 20 Mg/Ml Vial IV PUSH 10 mg Q4HR PRN Administration Blood Pressure - High Hydrocortisone/Pramoxine 1 applic 11/20/24 21:00 11/22/24 09:19 Hydrocortisone/Pramoxine 2.5% 30 Gm Cream RECTAL 11/24/24 08:00 1 applic Q12HR SOURAV Administration Dextrose 1,000 mls @ 100 mls/hr 11/06/24 07:40 Dextrose 5% 1,000 Ml IVPB PRN PRN Hypoglycemia Protocol Micafungin Sodium 100 mg/ 100 mls @ 100 mls/hr 11/11/24 09:40 11/22/24 10:18 Sodium Chloride IVPB 11/24/24 09:59 Infused DAILY SOURAV Infusion Sodium Chloride 1,000 mls @ 50 mls/hr 11/21/24 21:15 11/22/24 17:46 Normal Saline Iv IV CONT 50 mls/hr .Q20H SOURAV Administration Insulin Aspart 2 - 5 units 11/18/24 08:00 11/22/24 16:46 Insulin Aspart (*Bkc) 100 Units/Ml SUB-Q Not Given TIDWM [facility] Protocol Morphine Sulfate 2 mg 11/08/24 07:39 Morphine Sulfate (*Crx) 2 Mg/Ml Inj IV PUSH Q2H PRN Moderate Pain (4-6) Morphine Sulfate 4 mg 11/08/24 07:39 11/21/24 06:47 Morphine Sulfate (*Crx) 4 Mg/Ml Inj IV PUSH 4 mg Q2H PRN Administration Pain Rated 7-10 Naloxone HCl 0.1 mg 11/06/24 00:01 Naloxone Hcl 0.4 Mg/Ml Vial IV PUSH Q2M PRN Opiate Reversal Ondansetron HCl 4 mg 11/06/24 00:01 11/21/24 06:47 Ondansetron Inj 4 Mg/2 Ml Vial IV PUSH 4 mg Q4H PRN Administration Nausea And Vomiting Pantoprazole Sodium 40 mg 11/06/24 09:00 11/22/24 09:14 Pantoprazole Sodium Iv 40 Mg Vial IV PUSH 40 mg Q12HR SOURAV Administration Phenyleph/Shark Oil/[place] Butter 1 supp 11/19/24 18:18 11/19/24 18:33 Phenylephrine Hcl/[place] Butter Supp.Rect (*Bkc) RECTAL 1 supp Q12HR PRN Administration Hemorrhoids Thiamine HCl 100 mg 11/06/24 09:00 11/22/24 09:14 Thiamine Hcl 200 Mg/2 Ml Vial IV PUSH 100 mg QAM SOURAV Administration Radiology Results: ITS Impressions Head CT 11/05/24 20:50 IMPRESSION: 1. Moderate nonspecific cerebral white matter disease, which likely represents chronic small vessel ischemic disease. 2. 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 Upper GI Series 11/08/24 12:17 IMPRESSION: 1. Slow gastric emptying likely related to postoperative ileus. No extraluminal leakage of contrast. Chest/Abdomen/Pelvis CT 11/10/24 10:38 IMPRESSION: 1. Small volume of ascites with mass effect on right lateral aspect of the liver, likely an exudate. 2. Small pleural effusions. 3. Wall thickening of the descending and sigmoid colon and rectum, consistent with colitis versus interstitial edema. Catheter Placement CT 11/12/24 14:47 IMPRESSION: 1. Successful CT-guided right upper quadrant abdominal abscess drainage yielding yellow fluid. Modified Barium Swallow 11/13/24 12:24 IMPRESSION: 1. Laryngeal penetration. 2. Please refer to the speech therapy report for recommendations. Abdomen X-Ray 11/14/24 11:13 IMPRESSION: Nonspecific, nonobstructive bowel gas pattern. Supportive devices unchanged in position. Bilateral pleural effusions. If clinical suspicion persists, CT examination of the abdomen and pelvis (with intravenous contrast) is suggested for further evaluation. Renal Ultrasound 11/19/24 16:17 IMPRESSION: No hydronephrosis or renal calculi. Findings suggesting medical renal disease. Free fluid within the pelvis. Abdomen/Pelvis CT 11/20/24 14:44 IMPRESSION: Large bilateral pleural effusions, with bilateral lower lobe atelectasis. Infection in the lower lobes is not excluded. Single loop of dilated jejunum, likely representing localized ileus. Early/partial obstruction could appear similarly. Colonic wall thickening, as can be seen with colitis. Moderate ascites. Diffuse edema of the subcutaneous fat and mesenteric fat. Chest X-Ray 11/21/24 14:19 IMPRESSION: Moderate bilateral pleural effusions, likely with bibasilar atelectasis. Infection not excluded. Venous Doppler Study 11/22/24 10:28 IMPRESSION: 1. No deep venous thrombosis in either lower limb. Labs Labs: Laboratory Tests 11/22/24 06:40 11/22/24 06:40 Calcium 7.7 L Phosphorus 6.7 H Magnesium 2.2 Total Bilirubin 0.4 AST 18 ALT 9 Alkaline Phosphatase 102 Total Protein 6.0 L Albumin 2.5 L
--- NOTE | 2024-11-22 14:33 | PCPTNOTE ---
Attempted to see patient this afternoon, however patient refused stating he just ate and can not get up now. Patient states maybe later.
--- NOTE | 2024-11-22 14:53 | PCOTNOTE ---
Attempted this afternoon to see Patient for OT treatment session. Patient refused, stated, I'm sick, I said No already . Therapist discussed the importance of mobility, activity for increased strengthening.
[2024-11-22 16:44] LABS: Glucose Point of Care 90 mg/dl (65-105)
[2024-11-22] MEDS: SODIUM CHLORIDE 0.9% IV 1,000 ML 50 ML IV CONT (17:46)
[2024-11-22 20:57] LABS: Glucose Point of Care 97 mg/dl (65-105)
[2024-11-23 04:22] LABS: Glucose Point of Care 117 mg/dl (65-105)
[2024-11-23 06:00] VITALS: BP 153/78; PULSE 80; RESP 18; TEMP 36.7; O2SAT 96
[2024-11-23 07:54] LABS: Glucose Point of Care 104 mg/dl (65-105)
[2024-11-23 08:00] VITALS: O2SAT 96
[2024-11-23] MEDS: THIAMINE HCL 200 MG/2 ML VIAL 100 MG IV PUSH (08:06)
[2024-11-23] MEDS: droNABinol (*CRX) 2.5 MG CAPSULE 5 MG PO ×2 (08:07→17:12)
[2024-11-23] MEDS: amLODIPine BESYLATE 5 MG TABLET PO (08:07)
[2024-11-23] MEDS: ENOXAPARIN 30 MG/0.3 ML SYRINGE SUB-Q (08:08)
[2024-11-23] MEDS: FOLIC ACID 1 MG/0.2 ML INJ IV PUSH (08:08)
[2024-11-23] MEDS: HYDROCORTISONE/PRAMOXINE 2.5% 30 GM CREAM 1 APPLIC RECTAL ×2 (08:10→21:50)
[2024-11-23] MEDS: PANTOPRAZOLE SODIUM IV 40 MG VIAL IV PUSH ×2 (08:11→20:44)
[2024-11-23 08:12] LABS: Basophils Absolute Auto 0.1 K/mm3 (0.0-0.1); Basophils Percent Auto 0.4 % (0.2-1.2); Eosinophils Percent Auto 0.2 % (0-4.4); Hematocrit 27.7 % (42.0-52.0); Hemoglobin 8.7 g/dL (14.0-18.0); Immature Granulocyte Absolute 0.56 K/mm3 (0.00-0.031); Immature Granulocyte Percent A 2.8 % (0-0.5); Lymphocytes Absolute Auto 1.18 K/mm3 (0.9-3.2); Lymphocytes Percent Auto 5.8 % (18.3-44.2); Mean Corpuscular HGB Conc 31.4 g/dl (32-36); Mean Corpuscular Hemoglobin 28.7 pg (26-34); Mean Corpuscular Volume 91.4 fl (80-100); Mean Platelet Volume 9.4 fl (7.4-10.4); Neutrophils Absolute Auto 17.5 K/mm3 (1.3-6.7); Neutrophils Percent Auto 85.8 % (45.5-73.1); Platelet Count Result 862 k/mm3 (150-375); Red Blood Count 3.03 M/mm3 (4.6-6.20); Red Cell Distribution Width 14.9 % (11.5-14.5); White Blood Count 20.4 K/mm3 (4.5-10.0)
[2024-11-23 08:26] LABS: Alanine Aminotransferase 9 U/L (6-50); Albumin Level 2.4 g/dL (3.5-5.1); Alkaline Phosphatase 129 U/L (38-126); Anion Gap 4 mmol/L (4-12); Aspartate Amino Transferase 20 U/L (17-59); Bilirubin,Total 0.3 mg/dL (0.2-1.3); Blood Urea Nitrogen 33 mg/dL (9-20); Calcium 7.6 mg/dL (8.4-10.2); Carbon Dioxide 22 mmol/L (22-30); Chloride 114 mmol/L (98-107); Estimated CRCL calculation 12 ml/min; Estimated Glomerular Filt Rate 14; Glucose 105 mg/dL (65-110); Magnesium 2.2 mg/dL (1.6-2.3); Phosphorus 5.5 mg/dL (2.5-4.5); Potassium 4.2 mmol/L (3.4-5.0); Sodium 140 mmol/L (137-145)
[2024-11-23] MEDS: MICAFUNGIN SODIUM 100 MG in SODIUM CHLORIDE 0.9% IV 100 ML IVPB (10:05)
[2024-11-23] MEDS: ALBUTEROL SULFATE NEB 2.5 MG/3 ML INH INHALATION (11:24)
[2024-11-23] MEDS: ACETYLCYSTEINE 20% INHAL SOLN 800 MG/4 ML VIAL 200 MG INHALATION (11:24)
[2024-11-23 11:25] VITALS: PULSE 78; RESP 20; O2SAT 92
[2024-11-23 11:33] LABS: Glucose Point of Care 104 mg/dl (65-105)
[2024-11-23 11:39] VITALS: PULSE 75; RESP 20
--- NOTE | 2024-11-23 11:53 | P.PNNP_ITS ---
Progress Note: A&P Assessment and Plan (1) DEBI (acute kidney injury): Code(s): N17.9 - Acute kidney failure, unspecified Status: Acute Assessment and Plan: * initial insult on admission was due to sepsis hypotension, fluid shifts and hypovolemia * resolved with supportive therapy * second episode noted on 11/18...creatinine increased from 0.9 -> 2.2 -> 3.0mg/dl today * etiology of second episode is not entirely clear... * suspect ATN from prerenal azotemia secondary to third spacing given recent abdominal surgery compounded by his diminished oral intake * recent CT scan noted (ascites, pleural effusions, anasarca...) * evaluation to date noted: * renal ultrasound without obstruction but with medical renal disease * urine electrolytes prerenal * UA not indicative of infection * urine eosinophils negative * mild proteiuria noted (~ 1300mg proteinuria) * CPK low * check renal scan * consider diuresis if respiratory status declines... * follow trend of repeat labs and UOP (2) Perforated gastric ulcer: Qualifiers: Gastric ulcer chronicity: acute Qualified Code(s): K25.1 - Acute gastric ulcer with perforation Code(s): K25.5 - Chronic or unspecified gastric ulcer with perforation Status: Acute Assessment and Plan: * s/p exploratory laparotomy, extensive lysis of adhesions, intra-abdominal washout, repair of perforated gastric ulcer with omental patch * on antibiotics * local wound care * Surgery following (3) Hypertension: Code(s): I10 - Essential (primary) hypertension Status: Chronic Assessment and Plan: * as noted by recent BP readings * likely an undiagnosed condition * follow trend of hemodynamics (4) COPD (chronic obstructive pulmonary disease): Code(s): J44.9 - Chronic obstructive pulmonary disease, unspecified Status: Acute Assessment and Plan: * not in exacerbation * bronchodilators as needed (5) Severe protein-calorie malnutrition: Code(s): E43 - Unspecified severe protein-calorie malnutrition Status: Acute Assessment and Plan: * on dronabinol 5mg bid * advance diet as tolerated (6) EtOH dependence: Code(s): F10.20 - Alcohol dependence, uncomplicated Status: Acute Assessment and Plan: * known history * continue thiamine and folic acid Will continue to follow. L Subjective Date/time seen: 11/23/24 11:53 Interval history: Follow-up for acute kidney injury/acute renal failure. No apparent distress noted at the time of my visit; unfortunately, renal function/creatinine continues to deteriorate although the patient reports that is still urinating (difficult to quantify by I/Os); nutritional intake is still suboptimal; no other acute complaints voiced when seen. Exam 2 Narrative: General: thin and elderly male in NAD Heart: normal S1 and S2; no rub Lungs: clear anteriorly Abdomen: mild TTP and distension; decreased bowel sounds Extremities: no cyanosis or clubbing; no edema Skin: no nodules Objective Data Vital Signs Vital Signs: Vital Signs Temp Pulse Resp BP Pulse Ox O2 Del Method O2 Flow Rate 11/23/24 11:39 75 20 11/23/24 11:25 78 20 11/23/24 11:25 92 Nasal Cannula 4 11/23/24 08:00 96 Nasal Cannula 4 11/23/24 06:00 98.0 F 80 18 153/78 H 96 11/22/24 21:42 98.6 F 90 20 150/75 H 92 11/22/24 20:54 90 18 11/22/24 20:40 86 L Nasal Cannula 2 11/22/24 20:40 85 18 Intake/Output Intake/Output: Intake & Output 11/20/24 11/21/24 11/22/24 11/23/24 23:59 23:59 23:59 23:59 Intake Total 617 322 0819 100 Output Total 300 35 Balance -323 971 3546 100 Meds/Results Medications: Active Medications Generic Name Dose Route Start Last Admin Trade Name Freq PRN Reason Stop Dose Admin Acetaminophen 650 mg 11/06/24 14:48 11/07/24 19:10 Acetaminophen 650 Mg Suppository RECTAL 650 mg Q4H PRN Administration Mild Pain (1-3) or Fever Acetaminophen 650 mg 11/14/24 15:21 Acetaminophen Elixir 325 Mg/10.15 Ml Udc FEED TUBE Q4H PRN Headache, Fever, Mild Pain Hydrocodone Bitart/Acetaminophen 1 tab 11/08/24 13:37 11/18/24 00:29 Hydrocodone/Acetaminophen (*Crx) 5-325 Mg Tablet FEED TUBE 1 tab Q4H PRN Administration Pain Rated 4-6 Acetylcysteine 200 mg 11/09/24 20:00 11/23/24 11:24 Acetylcysteine 20% Inhal Soln 800 Mg/4 Ml Vial INHALATION 200 mg Q12HRT SOURAV Administration Albuterol 2.5 mg 11/09/24 15:38 11/23/24 11:24 Albuterol Sulfate Neb 2.5 Mg/3 Ml Inh INHALATION 2.5 mg Q12HR PRN Administration Shortness Of Breath Amlodipine Besylate 5 mg 11/11/24 09:00 11/23/24 08:07 Amlodipine Besylate 5 Mg Tablet PO 5 mg DAILY SOURAV Administration Dextrose 12.5 gm 11/06/24 07:40 11/21/24 16:58 Dextrose 50% 25 Gm/50 Ml Syringe IV PUSH 12.5 gm PRN PRN Administration Hypoglycemia Protocol Dronabinol 5 mg 11/17/24 17:00 11/23/24 08:07 Dronabinol (*Crx) 2.5 Mg Capsule PO 5 mg BID SOURAV Administration Enoxaparin Sodium 30 mg 11/18/24 09:00 11/23/24 08:08 Enoxaparin 30 Mg/0.3 Ml Syringe SUB-Q 30 mg DAILY SOURAV Administration Folic Acid 1 mg 11/06/24 09:00 11/23/24 08:08 Folic Acid 1 Mg/0.2 Ml Inj IV PUSH 1 mg QAM SOURAV Administration Glucagon 1 mg 11/06/24 07:40 Glucagon For Inj 1 Mg Vial IM PRN PRN Hypoglycemia Protocol Glucose 15 gm 11/06/24 07:40 Glucose Oral Gel 15 Gm Of Glucse In 37.5 Gm Tube PO PRN PRN Hypoglycemia Protocol Hydralazine HCl 10 mg 11/10/24 09:16 11/14/24 04:17 Hydralazine Hcl 20 Mg/Ml Vial IV PUSH 10 mg Q4HR PRN Administration Blood Pressure - High Hydrocortisone/Pramoxine 1 applic 11/20/24 21:00 11/23/24 08:10 Hydrocortisone/Pramoxine 2.5% 30 Gm Cream RECTAL 11/24/24 08:00 1 applic Q12HR SOURAV Administration Dextrose 1,000 mls @ 100 mls/hr 11/06/24 07:40 Dextrose 5% 1,000 Ml IVPB PRN PRN Hypoglycemia Protocol Micafungin Sodium 100 mg/ 100 mls @ 100 mls/hr 11/11/24 09:40 11/23/24 10:05 Sodium Chloride IVPB 11/24/24 09:59 100 mls/hr DAILY SOURAV Administration Insulin Aspart 2 - 5 units 11/18/24 08:00 11/23/24 13:59 Insulin Aspart (*Bkc) 100 Units/Ml SUB-Q Not Given TIDWM [facility] Protocol Morphine Sulfate 2 mg 11/08/24 07:39 Morphine Sulfate (*Crx) 2 Mg/Ml Inj IV PUSH Q2H PRN Moderate Pain (4-6) Morphine Sulfate 4 mg 11/08/24 07:39 11/21/24 06:47 Morphine Sulfate (*Crx) 4 Mg/Ml Inj IV PUSH 4 mg Q2H PRN Administration Pain Rated 7-10 Naloxone HCl 0.1 mg 11/06/24 00:01 Naloxone Hcl 0.4 Mg/Ml Vial IV PUSH Q2M PRN Opiate Reversal Ondansetron HCl 4 mg 11/06/24 00:01 11/21/24 06:47 Ondansetron Inj 4 Mg/2 Ml Vial IV PUSH 4 mg Q4H PRN Administration Nausea And Vomiting Pantoprazole Sodium 40 mg 11/06/24 09:00 11/23/24 08:11 Pantoprazole Sodium Iv 40 Mg Vial IV PUSH 40 mg Q12HR SOURAV Administration Phenyleph/Shark Oil/[place] Butter 1 supp 11/19/24 18:18 11/19/24 18:33 Phenylephrine Hcl/[place] Butter Supp.Rect (*Bkc) RECTAL 1 supp Q12HR PRN Administration Hemorrhoids Thiamine HCl 100 mg 11/06/24 09:00 11/23/24 08:06 Thiamine Hcl 200 Mg/2 Ml Vial IV PUSH 100 mg QAM SOURAV Administration Radiology Results: ITS Impressions Head CT 11/05/24 20:50 IMPRESSION: 1. Moderate nonspecific cerebral white matter disease, which likely represents chronic small vessel ischemic disease. 2. 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 Upper GI Series 11/08/24 12:17 IMPRESSION: 1. Slow gastric emptying likely related to postoperative ileus. No extraluminal leakage of contrast. Chest/Abdomen/Pelvis CT 11/10/24 10:38 IMPRESSION: 1. Small volume of ascites with mass effect on right lateral aspect of the liver, likely an exudate. 2. Small pleural effusions. 3. Wall thickening of the descending and sigmoid colon and rectum, consistent with colitis versus interstitial edema. Catheter Placement CT 11/12/24 14:47 IMPRESSION: 1. Successful CT-guided right upper quadrant abdominal abscess drainage yielding yellow fluid. Modified Barium Swallow 11/13/24 12:24 IMPRESSION: 1. Laryngeal penetration. 2. Please refer to the speech therapy report for recommendations. Abdomen X-Ray 11/14/24 11:13 IMPRESSION: Nonspecific, nonobstructive bowel gas pattern. Supportive devices unchanged in position. Bilateral pleural effusions. If clinical suspicion persists, CT examination of the abdomen and pelvis (with intravenous contrast) is suggested for further evaluation. Renal Ultrasound 11/19/24 16:17 IMPRESSION: No hydronephrosis or renal calculi. Findings suggesting medical renal disease. Free fluid within the pelvis. Abdomen/Pelvis CT 11/20/24 14:44 IMPRESSION: Large bilateral pleural effusions, with bilateral lower lobe atelectasis. Infection in the lower lobes is not excluded. Single loop of dilated jejunum, likely representing localized ileus. Early/partial obstruction could appear similarly. Colonic wall thickening, as can be seen with colitis. Moderate ascites. Diffuse edema of the subcutaneous fat and mesenteric fat. Venous Doppler Study 11/22/24 10:28 IMPRESSION: 1. No deep venous thrombosis in either lower limb. Labs Labs: Laboratory Tests 11/23/24 07:37 11/23/24 07:37 Calcium 7.6 L Phosphorus 5.5 H Magnesium 2.2 Total Bilirubin 0.3 AST 20 ALT 9 Alkaline Phosphatase 129 H Total Protein 6.0 L Albumin 2.4 L Microbiology 11/21/24 13:25 Blood Blood Culture - Preliminary 11/21/24 13:16 Blood Blood Culture - Preliminary
--- NOTE | 2024-11-23 13:12 | PM.PNGS ---
Progress Note: A&P Assessment and Plan (1) Perforated gastric ulcer: Qualifiers: Gastric ulcer chronicity: acute Qualified Code(s): K25.1 - Acute gastric ulcer with perforation Code(s): K25.5 - Chronic or unspecified gastric ulcer with perforation Status: Acute Assessment and Plan: abd exam benign, HARLEY removed, cont perc drain for now, cont abx, ? source of leukocytosis, worsening renal failure, encourage po, PT/OT Subjective Subjective Date/Time Seen: 11/23/24 13:12 Interval history: feels ok, no acute issues, poor appetite Review of Systems Review of Systems: All systems reviewed & are unremarkable except as noted in HPI and below Exam Const: General: cooperative, comfortable, no acute distress and ill appearing Resp: Auscultation: diminished lung sounds Cardio: Rate: regular rate Rhythm: regular rhythm GI: Inspection: normal to inspection, Abdominal wall edema and incision GI Palp: No abdominal tenderness and Yes Soft to palpation Other: HARLEY removed, perc drain c minimal serous fluid Objective Data Vital Signs Vital Signs: Vital Signs - 24 hr 11/22/24 14:00 11/22/24 20:40 11/22/24 20:40 Temperature 37.1 C Pulse Rate 89 85 Respiratory Rate 20 18 Blood Pressure 138/69 Pulse Oximetry 86 L Oxygen Delivery Nasal Cannula Oxygen Flow Rate 2 11/22/24 20:54 11/22/24 21:42 11/23/24 06:00 Temperature 37.0 C 36.7 C Pulse Rate 90 90 80 Respiratory Rate 18 20 18 Blood Pressure 150/75 H 153/78 H Pulse Oximetry 92 96 Oxygen Delivery Oxygen Flow Rate 11/23/24 08:00 11/23/24 11:25 11/23/24 11:25 Temperature Pulse Rate 78 Respiratory Rate 20 Blood Pressure Pulse Oximetry 96 92 Oxygen Delivery Nasal Cannula Nasal Cannula Oxygen Flow Rate 4 4 11/23/24 11:39 Temperature Pulse Rate 75 Respiratory Rate 20 Blood Pressure Pulse Oximetry Oxygen Delivery Oxygen Flow Rate Intake/Output Intake/Output: Intake & Output 11/20/24 11/21/24 11/22/24 11/23/24 23:59 23:59 23:59 23:59 Intake Total 261 516 2627 100 Output Total 300 35 Balance -800 932 9034 100 Meds/Results Medications: Active Medications Generic Name Dose Route Start Last Admin Trade Name Freq PRN Reason Stop Dose Admin Acetaminophen 650 mg 11/06/24 14:48 11/07/24 19:10 Acetaminophen 650 Mg Suppository RECTAL 650 mg Q4H PRN Administration Mild Pain (1-3) or Fever Acetaminophen 650 mg 11/14/24 15:21 Acetaminophen Elixir 325 Mg/10.15 Ml Udc FEED TUBE Q4H PRN Headache, Fever, Mild Pain Hydrocodone Bitart/Acetaminophen 1 tab 11/08/24 13:37 11/18/24 00:29 Hydrocodone/Acetaminophen (*Crx) 5-325 Mg Tablet FEED TUBE 1 tab Q4H PRN Administration Pain Rated 4-6 Acetylcysteine 200 mg 11/09/24 20:00 11/23/24 11:24 Acetylcysteine 20% Inhal Soln 800 Mg/4 Ml Vial INHALATION 200 mg Q12HRT SOURAV Administration Albuterol 2.5 mg 11/09/24 15:38 11/23/24 11:24 Albuterol Sulfate Neb 2.5 Mg/3 Ml Inh INHALATION 2.5 mg Q12HR PRN Administration Shortness Of Breath Amlodipine Besylate 5 mg 11/11/24 09:00 11/23/24 08:07 Amlodipine Besylate 5 Mg Tablet PO 5 mg DAILY SOURAV Administration Dextrose 12.5 gm 11/06/24 07:40 11/21/24 16:58 Dextrose 50% 25 Gm/50 Ml Syringe IV PUSH 12.5 gm PRN PRN Administration Hypoglycemia Protocol Dronabinol 5 mg 11/17/24 17:00 11/23/24 08:07 Dronabinol (*Crx) 2.5 Mg Capsule PO 5 mg BID SOURAV Administration Enoxaparin Sodium 30 mg 11/18/24 09:00 11/23/24 08:08 Enoxaparin 30 Mg/0.3 Ml Syringe SUB-Q 30 mg DAILY SOURAV Administration Folic Acid 1 mg 11/06/24 09:00 11/23/24 08:08 Folic Acid 1 Mg/0.2 Ml Inj IV PUSH 1 mg QAM SOURAV Administration Glucagon 1 mg 11/06/24 07:40 Glucagon For Inj 1 Mg Vial IM PRN PRN Hypoglycemia Protocol Glucose 15 gm 11/06/24 07:40 Glucose Oral Gel 15 Gm Of Glucse In 37.5 Gm Tube PO PRN PRN Hypoglycemia Protocol Hydralazine HCl 10 mg 11/10/24 09:16 11/14/24 04:17 Hydralazine Hcl 20 Mg/Ml Vial IV PUSH 10 mg Q4HR PRN Administration Blood Pressure - High Hydrocortisone/Pramoxine 1 applic 11/20/24 21:00 11/23/24 08:10 Hydrocortisone/Pramoxine 2.5% 30 Gm Cream RECTAL 11/24/24 08:00 1 applic Q12HR SOURAV Administration Dextrose 1,000 mls @ 100 mls/hr 11/06/24 07:40 Dextrose 5% 1,000 Ml IVPB PRN PRN Hypoglycemia Protocol Micafungin Sodium 100 mg/ 100 mls @ 100 mls/hr 11/11/24 09:40 11/23/24 10:05 Sodium Chloride IVPB 11/24/24 09:59 100 mls/hr DAILY SOURAV Administration Insulin Aspart 2 - 5 units 11/18/24 08:00 11/23/24 08:05 Insulin Aspart (*Bkc) 100 Units/Ml SUB-Q Not Given TIDWM [facility] Protocol Morphine Sulfate 2 mg 11/08/24 07:39 Morphine Sulfate (*Crx) 2 Mg/Ml Inj IV PUSH Q2H PRN Moderate Pain (4-6) Morphine Sulfate 4 mg 11/08/24 07:39 11/21/24 06:47 Morphine Sulfate (*Crx) 4 Mg/Ml Inj IV PUSH 4 mg Q2H PRN Administration Pain Rated 7-10 Naloxone HCl 0.1 mg 11/06/24 00:01 Naloxone Hcl 0.4 Mg/Ml Vial IV PUSH Q2M PRN Opiate Reversal Ondansetron HCl 4 mg 11/06/24 00:01 11/21/24 06:47 Ondansetron Inj 4 Mg/2 Ml Vial IV PUSH 4 mg Q4H PRN Administration Nausea And Vomiting Pantoprazole Sodium 40 mg 11/06/24 09:00 11/23/24 08:11 Pantoprazole Sodium Iv 40 Mg Vial IV PUSH 40 mg Q12HR SOURAV Administration Phenyleph/Shark Oil/[place] Butter 1 supp 11/19/24 18:18 11/19/24 18:33 Phenylephrine Hcl/[place] Butter Supp.Rect (*Bkc) RECTAL 1 supp Q12HR PRN Administration Hemorrhoids Thiamine HCl 100 mg 11/06/24 09:00 11/23/24 08:06 Thiamine Hcl 200 Mg/2 Ml Vial IV PUSH 100 mg QAM SOURAV Administration Radiology Results: ITS Impressions Head CT 11/05/24 20:50 IMPRESSION: 1. Moderate nonspecific cerebral white matter disease, which likely represents chronic small vessel ischemic disease. 2. 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 Upper GI Series 11/08/24 12:17 IMPRESSION: 1. Slow gastric emptying likely related to postoperative ileus. No extraluminal leakage of contrast. Chest/Abdomen/Pelvis CT 11/10/24 10:38 IMPRESSION: 1. Small volume of ascites with mass effect on right lateral aspect of the liver, likely an exudate. 2. Small pleural effusions. 3. Wall thickening of the descending and sigmoid colon and rectum, consistent with colitis versus interstitial edema. Catheter Placement CT 11/12/24 14:47 IMPRESSION: 1. Successful CT-guided right upper quadrant abdominal abscess drainage yielding yellow fluid. Modified Barium Swallow 11/13/24 12:24 IMPRESSION: 1. Laryngeal penetration. 2. Please refer to the speech therapy report for recommendations. Abdomen X-Ray 11/14/24 11:13 IMPRESSION: Nonspecific, nonobstructive bowel gas pattern. Supportive devices unchanged in position. Bilateral pleural effusions. If clinical suspicion persists, CT examination of the abdomen and pelvis (with intravenous contrast) is suggested for further evaluation. Renal Ultrasound 11/19/24 16:17 IMPRESSION: No hydronephrosis or renal calculi. Findings suggesting medical renal disease. Free fluid within the pelvis. Abdomen/Pelvis CT 11/20/24 14:44 IMPRESSION: Large bilateral pleural effusions, with bilateral lower lobe atelectasis. Infection in the lower lobes is not excluded. Single loop of dilated jejunum, likely representing localized ileus. Early/partial obstruction could appear similarly. Colonic wall thickening, as can be seen with colitis. Moderate ascites. Diffuse edema of the subcutaneous fat and mesenteric fat. Venous Doppler Study 11/22/24 10:28 IMPRESSION: 1. No deep venous thrombosis in either lower limb. Chest X-Ray 11/23/24 12:23 IMPRESSION: 1. Moderate-sized pleural effusions with slight worsening. 2. Stable airspace opacities in the mid and lower lung zones, consistent with atelectasis versus pneumonia. Labs Labs: Laboratory Results - last 24 hr 11/22/24 11/22/24 11/23/24 16:39 20:53 04:19 WBC RBC Hgb Hct MCV MCH MCHC RDW Plt Count MPV Immature Gran % (Auto) Neut % (Auto) Lymph % (Auto) [place] % (Auto) Eos % (Auto) Baso % (Auto) Lymph # (Auto) [place] # (Auto) Eos # (Auto) Baso # (Auto) Abs Immat Gran (auto) Absolute Neuts (auto) Absolute Nucleated RBC Nucleated RBC % Sodium Potassium Chloride Carbon Dioxide Anion Gap BUN Creatinine Estim Creat Clear Calc Estimated GFR Glucose POC Capillary Glucose 90 97 117 H Calcium Phosphorus Magnesium Total Bilirubin AST ALT Alkaline Phosphatase Total Protein Albumin 11/23/24 11/23/24 11/23/24 07:37 07:51 11:31 WBC 20.4 H RBC 3.03 L Hgb 8.7 L Hct 27.7 L MCV 91.4 MCH 28.7 MCHC 31.4 L RDW 14.9 H Plt Count 862 H MPV 9.4 Immature Gran % (Auto) 2.8 H Neut % (Auto) 85.8 H Lymph % (Auto) 5.8 L [place] % (Auto) 5.0 Eos % (Auto) 0.2 Baso % (Auto) 0.4 Lymph # (Auto) 1.18 [place] # (Auto) 1.0 H Eos # (Auto) 0.0 Baso # (Auto) 0.1 Abs Immat Gran (auto) 0.56 H Absolute Neuts (auto) 17.5 H Absolute Nucleated RBC 0.000 Nucleated RBC % 0.0 Sodium 140 Potassium 4.2 Chloride 114 H Carbon Dioxide 22 Anion Gap 4 BUN 33 H Creatinine 4.20 H Estim Creat Clear Calc 12 Estimated GFR 14 L Glucose 105 POC Capillary Glucose 104 104 Calcium 7.6 L Phosphorus 5.5 H Magnesium 2.2 Total Bilirubin 0.3 AST 20 ALT 9 Alkaline Phosphatase 129 H Total Protein 6.0 L Albumin 2.4 L
[2024-11-23 14:00] VITALS: BP 152/76; PULSE 87; RESP 22; TEMP 36.8; O2SAT 92
--- NOTE | 2024-11-23 14:20 | PCPTNOTE ---
Patient refused PT. Patient states my stomach feels like it is on fire. Educated patient on the importance of participating in PT to increase strength and mobility. Patient voices understanding and states maybe later.
--- NOTE | 2024-11-23 15:09 | PCPTNOTE ---
Addendum entered by Antwan Floyd, [employer] TECHNICIAN 11/26/24 08:32: Patient refused PT 3 consecutive days with multiple attempts for treatment and eduction on the importance of participating in PT to improve strength and mobility. Patient voiced understanding and continued to refuse. PT will discontinue services at this time. Original Note: Attempted to see patient for second time this afternoon. Patient refused PT for the second time.
--- NOTE | 2024-11-23 16:58 | P.PNIM_ITS ---
Progress Note: A&P Assessment and Plan (1) Metabolic acidosis: Code(s): E87.20 - Acidosis, unspecified Status: Acute Assessment and Plan: Gradually improving, will continue current treatment and monitor. (2) DEBI (acute kidney injury): Code(s): N17.9 - Acute kidney failure, unspecified Status: Acute Assessment and Plan: Creatinine stable around 3. Kidney ultrasound medical disease (3) Perforated gastric ulcer: Qualifiers: Gastric ulcer chronicity: acute Qualified Code(s): K25.1 - Acute gastric ulcer with perforation Code(s): K25.5 - Chronic or unspecified gastric ulcer with perforation Status: Acute Assessment and Plan: Continue with Protonix and monitor hgb (4) COPD (chronic obstructive pulmonary disease): Code(s): J44.9 - Chronic obstructive pulmonary disease, unspecified Status: Acute Assessment and Plan: Stable on current medications. Will continue current treatment. (5) Sepsis: Code(s): A41.9 - Sepsis, unspecified organism Status: Acute Assessment and Plan: Continue antibiotics and monitor cultures (6) Pneumonia: Code(s): J18.9 - Pneumonia, unspecified organism Status: Acute Assessment and Plan: Continue antibiotics gradually getting better (7) Acute hypoxic respiratory failure: Code(s): J96.01 - Acute respiratory failure with hypoxia Status: Acute Assessment and Plan: Better and improving (8) Sepsis associated hypotension: Code(s): A41.9 - Sepsis, unspecified organism; I95.9 - Hypotension, unspecified Status: Acute Assessment and Plan: Continue IV antibiotics and monitor cultures (9) EtOH dependence: Code(s): F10.20 - Alcohol dependence, uncomplicated Status: Acute Assessment and Plan: Counselling given Plan Code status full DVT prophylaxis on Sq Lovenox PT/OT following Subjective Date/time seen: 11/23/24 16:58 Interval history: Patient wants no aggressive measure . Wanted no aggressive measures and agrees to change the code status to DNR. Discussed with Nephrology and ID pharmacist. Cr and WBC keeps trending up. No obvious reason for the increase in Cr and WBC. Review of Systems Review of Systems: Pt with a dry throat not talking loudly with ng tube in situ on tube feeds looks weak and tired ROS unobtainable: Yes unobtainable due to endotracheal tube, unobtainable due to medical condition and unobtainable due to mental status Exam Narrative: General: More alert toady Lungs/Chest: Trachea central Coarse BS B/L, No crackles or wheezing. Cardiac: RRR. Normal S1 S2. No murmurs Abdomen: Decreased but present bowel sounds. HARLEY drain in place. Soft. Tender to palpation as patient grimaces on exam. Extremities: No clubbing, cyanosis or edema. Warm : Shen in place Neurologic: Patient is able to move all 4 extremities spontaneously. Objective Data Vital Signs Vital Signs: Vital Signs - 24 hr 11/22/24 20:40 11/22/24 20:40 11/22/24 20:54 Temperature Pulse Rate 85 90 Respiratory Rate 18 18 Blood Pressure Pulse Oximetry 86 L Oxygen Delivery Nasal Cannula Oxygen Flow Rate 2 11/22/24 21:42 11/23/24 06:00 11/23/24 08:00 Temperature 98.6 F 98.0 F Pulse Rate 90 80 Respiratory Rate 20 18 Blood Pressure 150/75 H 153/78 H Pulse Oximetry 92 96 96 Oxygen Delivery Nasal Cannula Oxygen Flow Rate 4 11/23/24 11:25 11/23/24 11:25 11/23/24 11:39 Temperature Pulse Rate 78 75 Respiratory Rate 20 20 Blood Pressure Pulse Oximetry 92 Oxygen Delivery Nasal Cannula Oxygen Flow Rate 4 11/23/24 14:00 Temperature 98.2 F Pulse Rate 87 Respiratory Rate 22 H Blood Pressure 152/76 H Pulse Oximetry 92 Oxygen Delivery Oxygen Flow Rate Intake/Output Intake/Output: Intake & Output 11/20/24 11/21/24 11/22/24 11/23/24 23:59 23:59 23:59 23:59 Intake Total 842 656 1911 100 Output Total 300 35 Balance -290 041 2994 100 Meds/Results Medications: Active Medications Generic Name Dose Route Start Last Admin Trade Name Freq PRN Reason Stop Dose Admin Acetaminophen 650 mg 11/06/24 14:48 11/07/24 19:10 Acetaminophen 650 Mg Suppository RECTAL 650 mg Q4H PRN Administration Mild Pain (1-3) or Fever Acetaminophen 650 mg 11/14/24 15:21 Acetaminophen Elixir 325 Mg/10.15 Ml Udc FEED TUBE Q4H PRN Headache, Fever, Mild Pain Hydrocodone Bitart/Acetaminophen 1 tab 11/08/24 13:37 11/18/24 00:29 Hydrocodone/Acetaminophen (*Crx) 5-325 Mg Tablet FEED TUBE 1 tab Q4H PRN Administration Pain Rated 4-6 Acetylcysteine 200 mg 11/09/24 20:00 11/23/24 11:24 Acetylcysteine 20% Inhal Soln 800 Mg/4 Ml Vial INHALATION 200 mg Q12HRT SOURAV Administration Albuterol 2.5 mg 11/09/24 15:38 11/23/24 11:24 Albuterol Sulfate Neb 2.5 Mg/3 Ml Inh INHALATION 2.5 mg Q12HR PRN Administration Shortness Of Breath Amlodipine Besylate 5 mg 11/11/24 09:00 11/23/24 08:07 Amlodipine Besylate 5 Mg Tablet PO 5 mg DAILY SOURAV Administration Dextrose 12.5 gm 11/06/24 07:40 11/21/24 16:58 Dextrose 50% 25 Gm/50 Ml Syringe IV PUSH 12.5 gm PRN PRN Administration Hypoglycemia Protocol Dronabinol 5 mg 11/17/24 17:00 11/23/24 08:07 Dronabinol (*Crx) 2.5 Mg Capsule PO 5 mg BID SOURAV Administration Enoxaparin Sodium 30 mg 11/18/24 09:00 11/23/24 08:08 Enoxaparin 30 Mg/0.3 Ml Syringe SUB-Q 30 mg DAILY SOURAV Administration Folic Acid 1 mg 11/06/24 09:00 11/23/24 08:08 Folic Acid 1 Mg/0.2 Ml Inj IV PUSH 1 mg QAM SOURAV Administration Glucagon 1 mg 11/06/24 07:40 Glucagon For Inj 1 Mg Vial IM PRN PRN Hypoglycemia Protocol Glucose 15 gm 11/06/24 07:40 Glucose Oral Gel 15 Gm Of Glucse In 37.5 Gm Tube PO PRN PRN Hypoglycemia Protocol Hydralazine HCl 10 mg 11/10/24 09:16 11/14/24 04:17 Hydralazine Hcl 20 Mg/Ml Vial IV PUSH 10 mg Q4HR PRN Administration Blood Pressure - High Hydrocortisone/Pramoxine 1 applic 11/20/24 21:00 11/23/24 08:10 Hydrocortisone/Pramoxine 2.5% 30 Gm Cream RECTAL 11/24/24 08:00 1 applic Q12HR SOURAV Administration Dextrose 1,000 mls @ 100 mls/hr 11/06/24 07:40 Dextrose 5% 1,000 Ml IVPB PRN PRN Hypoglycemia Protocol Micafungin Sodium 100 mg/ 100 mls @ 100 mls/hr 11/11/24 09:40 11/23/24 10:05 Sodium Chloride IVPB 11/24/24 09:59 100 mls/hr DAILY SOURAV Administration Insulin Aspart 2 - 5 units 11/18/24 08:00 11/23/24 13:59 Insulin Aspart (*Bkc) 100 Units/Ml SUB-Q Not Given TIDWM SOURAV Protocol Morphine Sulfate 2 mg 11/08/24 07:39 Morphine Sulfate (*Crx) 2 Mg/Ml Inj IV PUSH Q2H PRN Moderate Pain (4-6) Morphine Sulfate 4 mg 11/08/24 07:39 11/21/24 06:47 Morphine Sulfate (*Crx) 4 Mg/Ml Inj IV PUSH 4 mg Q2H PRN Administration Pain Rated 7-10 Naloxone HCl 0.1 mg 11/06/24 00:01 Naloxone Hcl 0.4 Mg/Ml Vial IV PUSH Q2M PRN Opiate Reversal Ondansetron HCl 4 mg 11/06/24 00:01 11/21/24 06:47 Ondansetron Inj 4 Mg/2 Ml Vial IV PUSH 4 mg Q4H PRN Administration Nausea And Vomiting Pantoprazole Sodium 40 mg 11/06/24 09:00 11/23/24 08:11 Pantoprazole Sodium Iv 40 Mg Vial IV PUSH 40 mg Q12HR SOURAV Administration Phenyleph/Shark Oil/[place] Butter 1 supp 11/19/24 18:18 11/19/24 18:33 Phenylephrine Hcl/[place] Butter Supp.Rect (*Bkc) RECTAL 1 supp Q12HR PRN Administration Hemorrhoids Thiamine HCl 100 mg 11/06/24 09:00 11/23/24 08:06 Thiamine Hcl 200 Mg/2 Ml Vial IV PUSH 100 mg QAM SOURAV Administration Radiology Results: ITS Impressions Head CT 11/05/24 20:50 IMPRESSION: 1. Moderate nonspecific cerebral white matter disease, which likely represents chronic small vessel ischemic disease. 2. 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 Upper GI Series 11/08/24 12:17 IMPRESSION: 1. Slow gastric emptying likely related to postoperative ileus. No extraluminal leakage of contrast. Chest/Abdomen/Pelvis CT 11/10/24 10:38 IMPRESSION: 1. Small volume of ascites with mass effect on right lateral aspect of the liver, likely an exudate. 2. Small pleural effusions. 3. Wall thickening of the descending and sigmoid colon and rectum, consistent with colitis versus interstitial edema. Catheter Placement CT 11/12/24 14:47 IMPRESSION: 1. Successful CT-guided right upper quadrant abdominal abscess drainage yielding yellow fluid. Modified Barium Swallow 11/13/24 12:24 IMPRESSION: 1. Laryngeal penetration. 2. Please refer to the speech therapy report for recommendations. Abdomen X-Ray 11/14/24 11:13 IMPRESSION: Nonspecific, nonobstructive bowel gas pattern. Supportive devices unchanged in position. Bilateral pleural effusions. If clinical suspicion persists, CT examination of the abdomen and pelvis (with intravenous contrast) is suggested for further evaluation. Renal Ultrasound 11/19/24 16:17 IMPRESSION: No hydronephrosis or renal calculi. Findings suggesting medical renal disease. Free fluid within the pelvis. Abdomen/Pelvis CT 11/20/24 14:44 IMPRESSION: Large bilateral pleural effusions, with bilateral lower lobe atelectasis. Infection in the lower lobes is not excluded. Single loop of dilated jejunum, likely representing localized ileus. Early/partial obstruction could appear similarly. Colonic wall thickening, as can be seen with colitis. Moderate ascites. Diffuse edema of the subcutaneous fat and mesenteric fat. Venous Doppler Study 11/22/24 10:28 IMPRESSION: 1. No deep venous thrombosis in either lower limb. Chest X-Ray 11/23/24 12:23 IMPRESSION: 1. Moderate-sized pleural effusions with slight worsening. 2. Stable airspace opacities in the mid and lower lung zones, consistent with atelectasis versus pneumonia. Renal Scan Nuclear Medicine 11/23/24 14:21 IMPRESSION: 1. Symmetric kidney function. 2. Delayed activity clearance from both kidneys with continually rising activity curves extending over the 30 minutes of observation and without associated hydronephrosis consistent with nonspecific, nonobstructive nephropathy. Labs Labs: Laboratory Results - last 24 hr 11/22/24 11/23/24 11/23/24 20:53 04:19 07:37 WBC 20.4 H RBC 3.03 L Hgb 8.7 L Hct 27.7 L MCV 91.4 MCH 28.7 MCHC 31.4 L RDW 14.9 H Plt Count 862 H MPV 9.4 Immature Gran % (Auto) 2.8 H Neut % (Auto) 85.8 H Lymph % (Auto) 5.8 L [place] % (Auto) 5.0 Eos % (Auto) 0.2 Baso % (Auto) 0.4 Lymph # (Auto) 1.18 [place] # (Auto) 1.0 H Eos # (Auto) 0.0 Baso # (Auto) 0.1 Abs Immat Gran (auto) 0.56 H Absolute Neuts (auto) 17.5 H Absolute Nucleated RBC 0.000 Nucleated RBC % 0.0 Sodium 140 Potassium 4.2 Chloride 114 H Carbon Dioxide 22 Anion Gap 4 BUN 33 H Creatinine 4.20 H Estim Creat Clear Calc 12 Estimated GFR 14 L Glucose 105 POC Capillary Glucose 97 117 H Calcium 7.6 L Phosphorus 5.5 H Magnesium 2.2 Total Bilirubin 0.3 AST 20 ALT 9 Alkaline Phosphatase 129 H Total Protein 6.0 L Albumin 2.4 L 11/23/24 11/23/24 07:51 11:31 WBC RBC Hgb Hct MCV MCH MCHC RDW Plt Count MPV Immature Gran % (Auto) Neut % (Auto) Lymph % (Auto) [place] % (Auto) Eos % (Auto) Baso % (Auto) Lymph # (Auto) [place] # (Auto) Eos # (Auto) Baso # (Auto) Abs Immat Gran (auto) Absolute Neuts (auto) Absolute Nucleated RBC Nucleated RBC % Sodium Potassium Chloride Carbon Dioxide Anion Gap BUN Creatinine Estim Creat Clear Calc Estimated GFR Glucose POC Capillary Glucose 104 104 Calcium Phosphorus Magnesium Total Bilirubin AST ALT Alkaline Phosphatase Total Protein Albumin Quality VTE Prophylaxis VTE prophylaxis: mechanical ordered and pharmacologic ordered Hospitalist MIPS Advance Care Plan I have confirmed that the patient's Advanced Care Plan is present, code status is documented, or surrogate decision maker is listed in patient medical record.: Yes Medication Reconciliation I have utilized all available resources to obtain, update and review the patients current medications (includes all prescriptions, OTC, herbals, cannabis, and nutritional supplements).: Yes
[2024-11-23 16:59] LABS: Glucose Point of Care 98 mg/dl (65-105)
[2024-11-23 20:43] LABS: Glucose Point of Care 88 mg/dl (65-105)
[2024-11-23 22:00] VITALS: BP 158/70; PULSE 89; RESP 20; TEMP 37.1; O2SAT 99
[2024-11-24] VITALS (13 sets, daily range): BP systolic 157–182; BP diastolic 80–94; PULSE 80–91; RESP 14–20; TEMP 36.6–36.7; O2SAT 93–100
[2024-11-24] MEDS: hydrALAZINE HCL 20 MG/ML VIAL 10 MG IV PUSH (06:17)
[2024-11-24 07:44] LABS: Glucose Point of Care 84 mg/dl (65-105)
[2024-11-24 08:14] LABS: Basophils Absolute Auto 0.1 K/mm3 (0.0-0.1); Basophils Percent Auto 0.5 % (0.2-1.2); Eosinophils Percent Auto 0.2 % (0-4.4); Hematocrit 30.1 % (42.0-52.0); Hemoglobin 9.8 g/dL (14.0-18.0); Immature Granulocyte Absolute 0.57 K/mm3 (0.00-0.031); Immature Granulocyte Percent A 2.9 % (0-0.5); Lymphocytes Absolute Auto 1.25 K/mm3 (0.9-3.2); Lymphocytes Percent Auto 6.3 % (18.3-44.2); Mean Corpuscular HGB Conc 32.6 g/dl (32-36); Mean Corpuscular Hemoglobin 29.2 pg (26-34); Mean Corpuscular Volume 89.6 fl (80-100); Mean Platelet Volume 9.3 fl (7.4-10.4); Monocytes Absolute Auto 0.7 K/mm3 (0.1-0.6); Monocytes Percent Auto 3.7 % (2.6-8.5); Neutrophils Absolute Auto 17.1 K/mm3 (1.3-6.7); Neutrophils Percent Auto 86.4 % (45.5-73.1); Platelet Count Result 934 k/mm3 (150-375); Red Blood Count 3.36 M/mm3 (4.6-6.20); Red Cell Distribution Width 14.8 % (11.5-14.5); White Blood Count 19.7 K/mm3 (4.5-10.0)
[2024-11-24 08:28] LABS: Alanine Aminotransferase 9 U/L (6-50); Albumin Level 2.7 g/dL (3.5-5.1); Alkaline Phosphatase 125 U/L (38-126); Anion Gap 6 mmol/L (4-12); Aspartate Amino Transferase 19 U/L (17-59); Bilirubin,Total 0.4 mg/dL (0.2-1.3); Blood Urea Nitrogen 34 mg/dL (9-20); Carbon Dioxide 20 mmol/L (22-30); Chloride 117 mmol/L (98-107); Estimated CRCL calculation 12 ml/min; Estimated Glomerular Filt Rate 14; Glucose 91 mg/dL (65-110); Magnesium 2.3 mg/dL (1.6-2.3); Phosphorus 5.1 mg/dL (2.5-4.5); Potassium 3.8 mmol/L (3.4-5.0); Sodium 143 mmol/L (137-145)
[2024-11-24] MEDS: droNABinol (*CRX) 2.5 MG CAPSULE 5 MG PO ×2 (09:21→18:03)
[2024-11-24] MEDS: amLODIPine BESYLATE 5 MG TABLET PO (09:21)
[2024-11-24] MEDS: ENOXAPARIN 30 MG/0.3 ML SYRINGE SUB-Q (09:22)
[2024-11-24] MEDS: THIAMINE HCL 200 MG/2 ML VIAL 100 MG IV PUSH (09:46)
[2024-11-24] MEDS: FOLIC ACID 1 MG/0.2 ML INJ IV PUSH (09:47)
[2024-11-24] MEDS: PANTOPRAZOLE SODIUM IV 40 MG VIAL IV PUSH ×2 (09:47→20:58)
--- NOTE | 2024-11-24 10:22 | PCNFU ---
Nutrition Follow-Up Complete: Alerted GI function as related to perforated gastric ulcer as evidenced by NPO. Goal:Meet estimated nutritional needs. Pt not meeting goal, continue with same goal Pt current nutrition is pureed level 4, level 2 thickened liquids, Ensure compact TID. Nutrition recommendation: encourage po intake Last recorded weight is 55.3 kg. Bowel Motility: +BM 11/24 Labs Reviewed: Hgb:9.8, HCT:30.1, GFR:14, BUN:34, Cr:4.2 Meds Noted: thiamin, folic acid, lovenox, protonix, insulin Skin: WNL Additional Notes: Pt continues on the same diet and liquids, intake varied from 0-50%, drinks some of the Ensure. Nursing continues to encourage po intake of meals and supplements. Pt does not want any aggressive measures, now a DNR status. Continue to encourage meals and supplements. Will monitor weight, labs, skin, intake. Follow up in 7 days.
[2024-11-24] MEDS: ALBUTEROL SULFATE NEB 2.5 MG/3 ML INH INHALATION (10:27)
[2024-11-24] MEDS: ACETYLCYSTEINE 20% INHAL SOLN 800 MG/4 ML VIAL 200 MG INHALATION ×2 (10:28→21:17)
--- NOTE | 2024-11-24 11:11 | PM.PNGS ---
Progress Note: A&P Assessment and Plan (1) Perforated viscus: Code(s): R19.8 - Other specified symptoms and signs involving the digestive system and abdomen Status: Acute Assessment and Plan: repeat MBS early next week, cont to encourage po, PT/OT Subjective Subjective Date/Time Seen: 11/24/24 11:11 Interval history: no acute issues, pt now DNR, does not want any further invasive intervention Review of Systems Review of Systems: All systems reviewed & are unremarkable except as noted in HPI and below Exam Const: General: cooperative, comfortable, no acute distress and ill appearing Resp: Auscultation: diminished lung sounds Cardio: Rate: regular rate Rhythm: regular rhythm GI: Inspection: normal to inspection, non-distended and incision GI Palp: No abdominal tenderness and Yes Soft to palpation Other: perc drain - minimal serous output Objective Data Vital Signs Vital Signs: Vital Signs - 24 hr 11/23/24 11:25 11/23/24 11:25 11/23/24 11:39 Temperature Pulse Rate 78 75 Respiratory Rate 20 20 Blood Pressure Pulse Oximetry 92 Oxygen Delivery Nasal Cannula Oxygen Flow Rate 4 11/23/24 14:00 11/23/24 22:00 11/24/24 06:00 Temperature 36.8 C 37.1 C 36.7 C Pulse Rate 87 89 89 Respiratory Rate 22 H 20 18 Blood Pressure 152/76 H 158/70 H Pulse Oximetry 92 99 96 Oxygen Delivery Oxygen Flow Rate 11/24/24 06:13 11/24/24 07:16 11/24/24 10:30 Temperature Pulse Rate Respiratory Rate Blood Pressure 182/90 H 170/82 H Pulse Oximetry 97 Oxygen Delivery Nasal Cannula Oxygen Flow Rate 4 11/24/24 10:30 11/24/24 10:40 Temperature Pulse Rate 83 82 Respiratory Rate 20 20 Blood Pressure Pulse Oximetry Oxygen Delivery Oxygen Flow Rate Intake/Output Intake/Output: Intake & Output 11/21/24 11/22/24 11/23/24 11/24/24 23:59 23:59 23:59 23:59 Intake Total 477 2060 100 0 Output Total 35 Balance 442 2060 100 0 Meds/Results Medications: Active Medications Generic Name Dose Route Start Last Admin Trade Name Freq PRN Reason Stop Dose Admin Acetaminophen 650 mg 11/06/24 14:48 11/07/24 19:10 Acetaminophen 650 Mg Suppository RECTAL 650 mg Q4H PRN Administration Mild Pain (1-3) or Fever Acetaminophen 650 mg 11/14/24 15:21 Acetaminophen Elixir 325 Mg/10.15 Ml Udc FEED TUBE Q4H PRN Headache, Fever, Mild Pain Hydrocodone Bitart/Acetaminophen 1 tab 11/08/24 13:37 11/18/24 00:29 Hydrocodone/Acetaminophen (*Crx) 5-325 Mg Tablet FEED TUBE 1 tab Q4H PRN Administration Pain Rated 4-6 Acetylcysteine 200 mg 11/09/24 20:00 11/24/24 10:28 Acetylcysteine 20% Inhal Soln 800 Mg/4 Ml Vial INHALATION 200 mg Q12HRT SOURAV Administration Albuterol 2.5 mg 11/09/24 15:38 11/24/24 10:27 Albuterol Sulfate Neb 2.5 Mg/3 Ml Inh INHALATION 2.5 mg Q12HR PRN Administration Shortness Of Breath Amlodipine Besylate 5 mg 11/11/24 09:00 11/24/24 09:21 Amlodipine Besylate 5 Mg Tablet PO 5 mg DAILY SOURAV Administration Dextrose 12.5 gm 11/06/24 07:40 11/21/24 16:58 Dextrose 50% 25 Gm/50 Ml Syringe IV PUSH 12.5 gm PRN PRN Administration Hypoglycemia Protocol Dronabinol 5 mg 11/17/24 17:00 11/24/24 09:21 Dronabinol (*Crx) 2.5 Mg Capsule PO 5 mg BID SOURAV Administration Enoxaparin Sodium 30 mg 11/18/24 09:00 11/24/24 09:22 Enoxaparin 30 Mg/0.3 Ml Syringe SUB-Q 30 mg DAILY SOURAV Administration Folic Acid 1 mg 11/06/24 09:00 11/24/24 09:47 Folic Acid 1 Mg/0.2 Ml Inj IV PUSH 1 mg QAM SOURAV Administration Glucagon 1 mg 11/06/24 07:40 Glucagon For Inj 1 Mg Vial IM PRN PRN Hypoglycemia Protocol Glucose 15 gm 11/06/24 07:40 Glucose Oral Gel 15 Gm Of Glucse In 37.5 Gm Tube PO PRN PRN Hypoglycemia Protocol Hydralazine HCl 10 mg 11/10/24 09:16 11/24/24 06:17 Hydralazine Hcl 20 Mg/Ml Vial IV PUSH 10 mg Q4HR PRN Administration Blood Pressure - High Dextrose 1,000 mls @ 100 mls/hr 11/06/24 07:40 Dextrose 5% 1,000 Ml IVPB PRN PRN Hypoglycemia Protocol Insulin Aspart 2 - 5 units 11/18/24 08:00 11/24/24 08:27 Insulin Aspart (*Bkc) 100 Units/Ml SUB-Q Not Given TIDWM [facility] Protocol Morphine Sulfate 2 mg 11/08/24 07:39 Morphine Sulfate (*Crx) 2 Mg/Ml Inj IV PUSH Q2H PRN Moderate Pain (4-6) Morphine Sulfate 4 mg 11/08/24 07:39 11/21/24 06:47 Morphine Sulfate (*Crx) 4 Mg/Ml Inj IV PUSH 4 mg Q2H PRN Administration Pain Rated 7-10 Naloxone HCl 0.1 mg 11/06/24 00:01 Naloxone Hcl 0.4 Mg/Ml Vial IV PUSH Q2M PRN Opiate Reversal Ondansetron HCl 4 mg 11/06/24 00:01 11/21/24 06:47 Ondansetron Inj 4 Mg/2 Ml Vial IV PUSH 4 mg Q4H PRN Administration Nausea And Vomiting Pantoprazole Sodium 40 mg 11/06/24 09:00 11/24/24 09:47 Pantoprazole Sodium Iv 40 Mg Vial IV PUSH 40 mg Q12HR SOURAV Administration Phenyleph/Shark Oil/[place] Butter 1 supp 11/19/24 18:18 11/19/24 18:33 Phenylephrine Hcl/[place] Butter Supp.Rect (*Bkc) RECTAL 1 supp Q12HR PRN Administration Hemorrhoids Thiamine HCl 100 mg 11/06/24 09:00 11/24/24 09:46 Thiamine Hcl 200 Mg/2 Ml Vial IV PUSH 100 mg QAM SOURAV Administration Radiology Results: ITS Impressions Head CT 11/05/24 20:50 IMPRESSION: 1. Moderate nonspecific cerebral white matter disease, which likely represents chronic small vessel ischemic disease. 2. 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 Upper GI Series 11/08/24 12:17 IMPRESSION: 1. Slow gastric emptying likely related to postoperative ileus. No extraluminal leakage of contrast. Chest/Abdomen/Pelvis CT 11/10/24 10:38 IMPRESSION: 1. Small volume of ascites with mass effect on right lateral aspect of the liver, likely an exudate. 2. Small pleural effusions. 3. Wall thickening of the descending and sigmoid colon and rectum, consistent with colitis versus interstitial edema. Catheter Placement CT 11/12/24 14:47 IMPRESSION: 1. Successful CT-guided right upper quadrant abdominal abscess drainage yielding yellow fluid. Modified Barium Swallow 11/13/24 12:24 IMPRESSION: 1. Laryngeal penetration. 2. Please refer to the speech therapy report for recommendations. Abdomen X-Ray 11/14/24 11:13 IMPRESSION: Nonspecific, nonobstructive bowel gas pattern. Supportive devices unchanged in position. Bilateral pleural effusions. If clinical suspicion persists, CT examination of the abdomen and pelvis (with intravenous contrast) is suggested for further evaluation. Renal Ultrasound 11/19/24 16:17 IMPRESSION: No hydronephrosis or renal calculi. Findings suggesting medical renal disease. Free fluid within the pelvis. Abdomen/Pelvis CT 11/20/24 14:44 IMPRESSION: Large bilateral pleural effusions, with bilateral lower lobe atelectasis. Infection in the lower lobes is not excluded. Single loop of dilated jejunum, likely representing localized ileus. Early/partial obstruction could appear similarly. Colonic wall thickening, as can be seen with colitis. Moderate ascites. Diffuse edema of the subcutaneous fat and mesenteric fat. Venous Doppler Study 11/22/24 10:28 IMPRESSION: 1. No deep venous thrombosis in either lower limb. Chest X-Ray 11/23/24 12:23 IMPRESSION: 1. Moderate-sized pleural effusions with slight worsening. 2. Stable airspace opacities in the mid and lower lung zones, consistent with atelectasis versus pneumonia. Renal Scan Nuclear Medicine 11/23/24 14:21 IMPRESSION: 1. Symmetric kidney function. 2. Delayed activity clearance from both kidneys with continually rising activity curves extending over the 30 minutes of observation and without associated hydronephrosis consistent with nonspecific, nonobstructive nephropathy. Labs Labs: Laboratory Results - last 24 hr 11/23/24 11/23/24 11/23/24 11:31 16:57 20:18 WBC RBC Hgb Hct MCV MCH MCHC RDW Plt Count MPV Immature Gran % (Auto) Neut % (Auto) Lymph % (Auto) Rankin % (Auto) Eos % (Auto) Baso % (Auto) Lymph # (Auto) Rankin # (Auto) Eos # (Auto) Baso # (Auto) Abs Immat Gran (auto) Absolute Neuts (auto) Absolute Nucleated RBC Nucleated RBC % Sodium Potassium Chloride Carbon Dioxide Anion Gap BUN Creatinine Estim Creat Clear Calc Estimated GFR Glucose POC Capillary Glucose 104 98 88 Calcium Phosphorus Magnesium Total Bilirubin AST ALT Alkaline Phosphatase Total Protein Albumin 11/24/24 11/24/24 07:40 07:57 WBC 19.7 H RBC 3.36 L Hgb 9.8 L Hct 30.1 L MCV 89.6 MCH 29.2 MCHC 32.6 RDW 14.8 H Plt Count 934 H MPV 9.3 Immature Gran % (Auto) 2.9 H Neut % (Auto) 86.4 H Lymph % (Auto) 6.3 L Rankin % (Auto) 3.7 Eos % (Auto) 0.2 Baso % (Auto) 0.5 Lymph # (Auto) 1.25 Rankin # (Auto) 0.7 H Eos # (Auto) 0.0 Baso # (Auto) 0.1 Abs Immat Gran (auto) 0.57 H Absolute Neuts (auto) 17.1 H Absolute Nucleated RBC 0.000 Nucleated RBC % 0.0 Sodium 143 Potassium 3.8 Chloride 117 H Carbon Dioxide 20 L Anion Gap 6 BUN 34 H Creatinine 4.20 H Estim Creat Clear Calc 12 Estimated GFR 14 L Glucose 91 POC Capillary Glucose 84 Calcium 8.0 L Phosphorus 5.1 H Magnesium 2.3 Total Bilirubin 0.4 AST 19 ALT 9 Alkaline Phosphatase 125 Total Protein 6.0 L Albumin 2.7 L
--- NOTE | 2024-11-24 11:48 | P.PNNP_ITS ---
Progress Note: A&P Assessment and Plan (1) DEBI (acute kidney injury): Code(s): N17.9 - Acute kidney failure, unspecified Status: Acute Assessment and Plan: * initial insult on admission was due to sepsis hypotension, fluid shifts and hypovolemia * resolved with supportive therapy * second episode noted on 11/18...creatinine increased from 0.9 -> 2.2 -> 3.0mg/dl today * etiology of second episode is not entirely clear... * suspect ATN from prerenal azotemia secondary to third spacing given recent abdominal surgery compounded by his diminished oral intake * recent CT scan noted (ascites, pleural effusions, anasarca...) * evaluation to date noted: * renal ultrasound without obstruction but with medical renal disease * urine electrolytes prerenal * UA not indicative of infection * urine eosinophils negative * mild proteiuria noted (~ 1300mg proteinuria) * CPK low * renal scan suggestive of ATN * consider diuresis if respiratory status declines... * follow trend of repeat labs and UOP (2) Perforated gastric ulcer: Qualifiers: Gastric ulcer chronicity: acute Qualified Code(s): K25.1 - Acute gastric ulcer with perforation Code(s): K25.5 - Chronic or unspecified gastric ulcer with perforation Status: Acute Assessment and Plan: * s/p exploratory laparotomy, extensive lysis of adhesions, intra-abdominal washout, repair of perforated gastric ulcer with omental patch * on antibiotics * local wound care * Surgery following (3) Hypertension: Code(s): I10 - Essential (primary) hypertension Status: Chronic Assessment and Plan: * as noted by recent BP readings * likely an undiagnosed condition * started on amlodipine * follow trend of hemodynamics (4) COPD (chronic obstructive pulmonary disease): Code(s): J44.9 - Chronic obstructive pulmonary disease, unspecified Status: Acute Assessment and Plan: * not in exacerbation * bronchodilators as needed (5) Severe protein-calorie malnutrition: Code(s): E43 - Unspecified severe protein-calorie malnutrition Status: Acute Assessment and Plan: * on dronabinol 5mg bid * advance diet as tolerated (6) EtOH dependence: Code(s): F10.20 - Alcohol dependence, uncomplicated Status: Acute Assessment and Plan: * known history * continue thiamine and folic acid Will continue to follow. L Subjective Date/time seen: 11/24/24 11:48 Interval history: Follow-up for acute kidney injury/acute renal failure. Seems to be doing reasonably well in general; Surgery following with recent HARLEY drain removal; requiring supplemental oxygen but denies any symptoms of shortness of breath; renal function/creatinine stable/unchanged in the last 24 hours; continues to make urine. Exam 2 Narrative: General: thin and elderly male in NAD Heart: normal S1 and S2; no rub Lungs: clear anteriorly Abdomen: mild TTP and distension; decreased bowel sounds Extremities: no cyanosis or clubbing; no edema Skin: warm and dry Objective Data Vital Signs Vital Signs: Vital Signs Temp Pulse Resp BP Pulse Ox O2 Del Method O2 Flow Rate 11/24/24 11:32 98.1 F 91 16 157/80 H 94 Nasal Cannula 2 11/24/24 10:40 82 20 11/24/24 10:30 83 20 11/24/24 10:30 97 Nasal Cannula 4 11/24/24 07:16 170/82 H 11/24/24 06:13 182/90 H 11/24/24 06:00 98.0 F 89 18 96 11/23/24 22:00 98.8 F 89 20 158/70 H 99 Intake/Output Intake/Output: Intake & Output 11/21/24 11/22/24 11/23/24 11/24/24 23:59 23:59 23:59 23:59 Intake Total 477 2060 200 240 Output Total 35 Balance 442 2060 200 240 Meds/Results Medications: Active Medications Generic Name Dose Route Start Last Admin Trade Name Freq PRN Reason Stop Dose Admin Acetaminophen 650 mg 11/06/24 14:48 11/07/24 19:10 Acetaminophen 650 Mg Suppository RECTAL 650 mg Q4H PRN Administration Mild Pain (1-3) or Fever Acetaminophen 650 mg 11/14/24 15:21 Acetaminophen Elixir 325 Mg/10.15 Ml Udc FEED TUBE Q4H PRN Headache, Fever, Mild Pain Hydrocodone Bitart/Acetaminophen 1 tab 11/08/24 13:37 11/18/24 00:29 Hydrocodone/Acetaminophen (*Crx) 5-325 Mg Tablet FEED TUBE 1 tab Q4H PRN Administration Pain Rated 4-6 Acetylcysteine 200 mg 11/09/24 20:00 11/24/24 10:28 Acetylcysteine 20% Inhal Soln 800 Mg/4 Ml Vial INHALATION 200 mg Q12HRT SOURAV Administration Albuterol 2.5 mg 11/09/24 15:38 11/24/24 10:27 Albuterol Sulfate Neb 2.5 Mg/3 Ml Inh INHALATION 2.5 mg Q12HR PRN Administration Shortness Of Breath Amlodipine Besylate 5 mg 11/11/24 09:00 11/24/24 09:21 Amlodipine Besylate 5 Mg Tablet PO 5 mg DAILY SOURAV Administration Dextrose 12.5 gm 11/06/24 07:40 11/21/24 16:58 Dextrose 50% 25 Gm/50 Ml Syringe IV PUSH 12.5 gm PRN PRN Administration Hypoglycemia Protocol Dronabinol 5 mg 11/17/24 17:00 11/24/24 09:21 Dronabinol (*Crx) 2.5 Mg Capsule PO 5 mg BID SOURAV Administration Enoxaparin Sodium 30 mg 11/18/24 09:00 11/24/24 09:22 Enoxaparin 30 Mg/0.3 Ml Syringe SUB-Q 30 mg DAILY SOURAV Administration Folic Acid 1 mg 11/06/24 09:00 11/24/24 09:47 Folic Acid 1 Mg/0.2 Ml Inj IV PUSH 1 mg QAM SOURAV Administration Glucagon 1 mg 11/06/24 07:40 Glucagon For Inj 1 Mg Vial IM PRN PRN Hypoglycemia Protocol Glucose 15 gm 11/06/24 07:40 Glucose Oral Gel 15 Gm Of Glucse In 37.5 Gm Tube PO PRN PRN Hypoglycemia Protocol Hydralazine HCl 10 mg 11/10/24 09:16 11/24/24 06:17 Hydralazine Hcl 20 Mg/Ml Vial IV PUSH 10 mg Q4HR PRN Administration Blood Pressure - High Dextrose 1,000 mls @ 100 mls/hr 11/06/24 07:40 Dextrose 5% 1,000 Ml IVPB PRN PRN Hypoglycemia Protocol Insulin Aspart 2 - 5 units 11/18/24 08:00 11/24/24 12:08 Insulin Aspart (*Bkc) 100 Units/Ml SUB-Q Not Given TIDWM SOURAV Protocol Morphine Sulfate 2 mg 11/08/24 07:39 Morphine Sulfate (*Crx) 2 Mg/Ml Inj IV PUSH Q2H PRN Moderate Pain (4-6) Morphine Sulfate 4 mg 11/08/24 07:39 11/21/24 06:47 Morphine Sulfate (*Crx) 4 Mg/Ml Inj IV PUSH 4 mg Q2H PRN Administration Pain Rated 7-10 Naloxone HCl 0.1 mg 11/06/24 00:01 Naloxone Hcl 0.4 Mg/Ml Vial IV PUSH Q2M PRN Opiate Reversal Ondansetron HCl 4 mg 11/06/24 00:01 11/21/24 06:47 Ondansetron Inj 4 Mg/2 Ml Vial IV PUSH 4 mg Q4H PRN Administration Nausea And Vomiting Pantoprazole Sodium 40 mg 11/06/24 09:00 11/24/24 09:47 Pantoprazole Sodium Iv 40 Mg Vial IV PUSH 40 mg Q12HR SOURAV Administration Phenyleph/Shark Oil/[place] Butter 1 supp 11/19/24 18:18 11/19/24 18:33 Phenylephrine Hcl/[place] Butter Supp.Rect (*Bkc) RECTAL 1 supp Q12HR PRN Administration Hemorrhoids Thiamine HCl 100 mg 11/06/24 09:00 11/24/24 09:46 Thiamine Hcl 200 Mg/2 Ml Vial IV PUSH 100 mg QAM SOURAV Administration Radiology Results: ITS Impressions Head CT 11/05/24 20:50 IMPRESSION: 1. Moderate nonspecific cerebral white matter disease, which likely represents chronic small vessel ischemic disease. 2. 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 Upper GI Series 11/08/24 12:17 IMPRESSION: 1. Slow gastric emptying likely related to postoperative ileus. No extraluminal leakage of contrast. Chest/Abdomen/Pelvis CT 11/10/24 10:38 IMPRESSION: 1. Small volume of ascites with mass effect on right lateral aspect of the liver, likely an exudate. 2. Small pleural effusions. 3. Wall thickening of the descending and sigmoid colon and rectum, consistent with colitis versus interstitial edema. Catheter Placement CT 11/12/24 14:47 IMPRESSION: 1. Successful CT-guided right upper quadrant abdominal abscess drainage yielding yellow fluid. Modified Barium Swallow 11/13/24 12:24 IMPRESSION: 1. Laryngeal penetration. 2. Please refer to the speech therapy report for recommendations. Abdomen X-Ray 11/14/24 11:13 IMPRESSION: Nonspecific, nonobstructive bowel gas pattern. Supportive devices unchanged in position. Bilateral pleural effusions. If clinical suspicion persists, CT examination of the abdomen and pelvis (with intravenous contrast) is suggested for further evaluation. Renal Ultrasound 11/19/24 16:17 IMPRESSION: No hydronephrosis or renal calculi. Findings suggesting medical renal disease. Free fluid within the pelvis. Abdomen/Pelvis CT 11/20/24 14:44 IMPRESSION: Large bilateral pleural effusions, with bilateral lower lobe atelectasis. Infection in the lower lobes is not excluded. Single loop of dilated jejunum, likely representing localized ileus. Early/partial obstruction could appear similarly. Colonic wall thickening, as can be seen with colitis. Moderate ascites. Diffuse edema of the subcutaneous fat and mesenteric fat. Venous Doppler Study 11/22/24 10:28 IMPRESSION: 1. No deep venous thrombosis in either lower limb. Chest X-Ray 11/23/24 12:23 IMPRESSION: 1. Moderate-sized pleural effusions with slight worsening. 2. Stable airspace opacities in the mid and lower lung zones, consistent with atelectasis versus pneumonia. Renal Scan Nuclear Medicine 11/23/24 14:21 IMPRESSION: 1. Symmetric kidney function. 2. Delayed activity clearance from both kidneys with continually rising activity curves extending over the 30 minutes of observation and without associated hydronephrosis consistent with nonspecific, nonobstructive nephropathy. Labs Labs: Laboratory Tests 11/24/24 07:57 11/24/24 07:57 Calcium 8.0 L Phosphorus 5.1 H Magnesium 2.3 Total Bilirubin 0.4 AST 19 ALT 9 Alkaline Phosphatase 125 Total Protein 6.0 L Albumin 2.7 L
[2024-11-24 11:54] LABS: Glucose Point of Care 110 mg/dl (65-105)
[2024-11-24] MEDS: MICAFUNGIN SODIUM 100 MG in SODIUM CHLORIDE 0.9% IV 100 ML IVPB (12:10)
--- NOTE | 2024-11-24 14:23 | PCSTNOTE ---
Orders to complete MBS received; No radiologist on site to complete MBS. Pt to remain NPO until the completion of MBS on 11/26. Thank you.
--- NOTE | 2024-11-24 15:34 | P.PNIM_ITS ---
Progress Note: A&P Assessment and Plan (1) Metabolic acidosis: Code(s): E87.20 - Acidosis, unspecified Status: Acute Assessment and Plan: Gradually improving, will continue current treatment and monitor. (2) DEBI (acute kidney injury): Code(s): N17.9 - Acute kidney failure, unspecified Status: Acute Assessment and Plan: Creatinine trending up Kidney ultrasound medical disease (3) Perforated gastric ulcer: Qualifiers: Gastric ulcer chronicity: acute Qualified Code(s): K25.1 - Acute gastric ulcer with perforation Code(s): K25.5 - Chronic or unspecified gastric ulcer with perforation Status: Acute Assessment and Plan: Continue with Protonix and monitor hgb (4) COPD (chronic obstructive pulmonary disease): Code(s): J44.9 - Chronic obstructive pulmonary disease, unspecified Status: Acute Assessment and Plan: Stable on current medications. Will continue current treatment. (5) Sepsis: Code(s): A41.9 - Sepsis, unspecified organism Status: Acute Assessment and Plan: Continue antibiotics and monitor cultures (6) Pneumonia: Code(s): J18.9 - Pneumonia, unspecified organism Status: Acute Assessment and Plan: Continue antibiotics gradually getting better (7) Acute hypoxic respiratory failure: Code(s): J96.01 - Acute respiratory failure with hypoxia Status: Acute Assessment and Plan: Better and improving (8) Sepsis associated hypotension: Code(s): A41.9 - Sepsis, unspecified organism; I95.9 - Hypotension, unspecified Status: Acute Assessment and Plan: Continue IV antibiotics and monitor cultures (9) EtOH dependence: Code(s): F10.20 - Alcohol dependence, uncomplicated Status: Acute Assessment and Plan: Counselling given Plan Code status full DVT prophylaxis on Sq Lovenox PT/OT following Subjective Date/time seen: 11/24/24 15:34 Interval history: Patient continues to feel better. Status post HARLEY drain removal. Surgery will remove the chencho on Tuesday. Review of Systems Review of Systems: Pt with a dry throat not talking loudly with ng tube in situ on tube feeds looks weak and tired ROS unobtainable: Yes unobtainable due to endotracheal tube, unobtainable due to medical condition and unobtainable due to mental status Exam Narrative: General: More alert toady Lungs/Chest: Trachea central Coarse BS B/L, No crackles or wheezing. Cardiac: RRR. Normal S1 S2. No murmurs Abdomen: Decreased but present bowel sounds. HARLEY drain in place. Soft. Tender to palpation as patient grimaces on exam. Extremities: No clubbing, cyanosis or edema. Warm : Shen in place Neurologic: Patient is able to move all 4 extremities spontaneously. Objective Data Vital Signs Vital Signs: Vital Signs - 24 hr 11/23/24 22:00 11/24/24 06:00 11/24/24 06:13 Temperature 98.8 F 98.0 F Pulse Rate 89 89 Respiratory Rate 20 18 Blood Pressure 158/70 H 182/90 H Pulse Oximetry 99 96 Oxygen Delivery Oxygen Flow Rate 11/24/24 07:16 11/24/24 10:30 11/24/24 10:30 Temperature Pulse Rate 83 Respiratory Rate 20 Blood Pressure 170/82 H Pulse Oximetry 97 Oxygen Delivery Nasal Cannula Oxygen Flow Rate 4 11/24/24 10:40 11/24/24 11:32 11/24/24 14:08 Temperature 98.1 F Pulse Rate 82 91 Respiratory Rate 20 16 Blood Pressure 157/80 H Pulse Oximetry 93 94 Oxygen Delivery Nasal Cannula Oxygen Flow Rate 2 Intake/Output Intake/Output: Intake & Output 11/21/24 11/22/24 11/23/24 11/24/24 23:59 23:59 23:59 23:59 Intake Total 477 2060 200 240 Output Total 35 Balance 442 2060 200 240 Meds/Results Medications: Active Medications Generic Name Dose Route Start Last Admin Trade Name Freq PRN Reason Stop Dose Admin Acetaminophen 650 mg 11/06/24 14:48 11/07/24 19:10 Acetaminophen 650 Mg Suppository RECTAL 650 mg Q4H PRN Administration Mild Pain (1-3) or Fever Acetaminophen 650 mg 11/14/24 15:21 Acetaminophen Elixir 325 Mg/10.15 Ml Udc FEED TUBE Q4H PRN Headache, Fever, Mild Pain Hydrocodone Bitart/Acetaminophen 1 tab 11/08/24 13:37 11/18/24 00:29 Hydrocodone/Acetaminophen (*Crx) 5-325 Mg Tablet FEED TUBE 1 tab Q4H PRN Administration Pain Rated 4-6 Acetylcysteine 200 mg 11/09/24 20:00 11/24/24 10:28 Acetylcysteine 20% Inhal Soln 800 Mg/4 Ml Vial INHALATION 200 mg Q12HRT SOURAV Administration Albuterol 2.5 mg 11/09/24 15:38 11/24/24 10:27 Albuterol Sulfate Neb 2.5 Mg/3 Ml Inh INHALATION 2.5 mg Q12HR PRN Administration Shortness Of Breath Amlodipine Besylate 5 mg 11/11/24 09:00 11/24/24 09:21 Amlodipine Besylate 5 Mg Tablet PO 5 mg DAILY SOURAV Administration Dextrose 12.5 gm 11/06/24 07:40 11/21/24 16:58 Dextrose 50% 25 Gm/50 Ml Syringe IV PUSH 12.5 gm PRN PRN Administration Hypoglycemia Protocol Dronabinol 5 mg 11/17/24 17:00 11/24/24 09:21 Dronabinol (*Crx) 2.5 Mg Capsule PO 5 mg BID SOURAV Administration Enoxaparin Sodium 30 mg 11/18/24 09:00 11/24/24 09:22 Enoxaparin 30 Mg/0.3 Ml Syringe SUB-Q 30 mg DAILY SOURAV Administration Folic Acid 1 mg 11/06/24 09:00 11/24/24 09:47 Folic Acid 1 Mg/0.2 Ml Inj IV PUSH 1 mg QAM SOURAV Administration Glucagon 1 mg 11/06/24 07:40 Glucagon For Inj 1 Mg Vial IM PRN PRN Hypoglycemia Protocol Glucose 15 gm 11/06/24 07:40 Glucose Oral Gel 15 Gm Of Glucse In 37.5 Gm Tube PO PRN PRN Hypoglycemia Protocol Hydralazine HCl 10 mg 11/10/24 09:16 11/24/24 06:17 Hydralazine Hcl 20 Mg/Ml Vial IV PUSH 10 mg Q4HR PRN Administration Blood Pressure - High Dextrose 1,000 mls @ 100 mls/hr 11/06/24 07:40 Dextrose 5% 1,000 Ml IVPB PRN PRN Hypoglycemia Protocol Insulin Aspart 2 - 5 units 11/18/24 08:00 11/24/24 12:08 Insulin Aspart (*Bkc) 100 Units/Ml SUB-Q Not Given TIDWM SOURAV Protocol Morphine Sulfate 2 mg 11/08/24 07:39 Morphine Sulfate (*Crx) 2 Mg/Ml Inj IV PUSH Q2H PRN Moderate Pain (4-6) Morphine Sulfate 4 mg 11/08/24 07:39 11/21/24 06:47 Morphine Sulfate (*Crx) 4 Mg/Ml Inj IV PUSH 4 mg Q2H PRN Administration Pain Rated 7-10 Naloxone HCl 0.1 mg 11/06/24 00:01 Naloxone Hcl 0.4 Mg/Ml Vial IV PUSH Q2M PRN Opiate Reversal Ondansetron HCl 4 mg 11/06/24 00:01 11/21/24 06:47 Ondansetron Inj 4 Mg/2 Ml Vial IV PUSH 4 mg Q4H PRN Administration Nausea And Vomiting Pantoprazole Sodium 40 mg 11/06/24 09:00 11/24/24 09:47 Pantoprazole Sodium Iv 40 Mg Vial IV PUSH 40 mg Q12HR SOURAV Administration Phenyleph/Shark Oil/[place] Butter 1 supp 11/19/24 18:18 11/19/24 18:33 Phenylephrine Hcl/[place] Butter Supp.Rect (*Bkc) RECTAL 1 supp Q12HR PRN Administration Hemorrhoids Thiamine HCl 100 mg 11/06/24 09:00 11/24/24 09:46 Thiamine Hcl 200 Mg/2 Ml Vial IV PUSH 100 mg QAM SOURAV Administration Radiology Results: ITS Impressions Head CT 11/05/24 20:50 IMPRESSION: 1. Moderate nonspecific cerebral white matter disease, which likely represents chronic small vessel ischemic disease. 2. 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 Upper GI Series 11/08/24 12:17 IMPRESSION: 1. Slow gastric emptying likely related to postoperative ileus. No extraluminal leakage of contrast. Chest/Abdomen/Pelvis CT 11/10/24 10:38 IMPRESSION: 1. Small volume of ascites with mass effect on right lateral aspect of the liver, likely an exudate. 2. Small pleural effusions. 3. Wall thickening of the descending and sigmoid colon and rectum, consistent with colitis versus interstitial edema. Catheter Placement CT 11/12/24 14:47 IMPRESSION: 1. Successful CT-guided right upper quadrant abdominal abscess drainage yielding yellow fluid. Modified Barium Swallow 11/13/24 12:24 IMPRESSION: 1. Laryngeal penetration. 2. Please refer to the speech therapy report for recommendations. Abdomen X-Ray 11/14/24 11:13 IMPRESSION: Nonspecific, nonobstructive bowel gas pattern. Supportive devices unchanged in position. Bilateral pleural effusions. If clinical suspicion persists, CT examination of the abdomen and pelvis (with intravenous contrast) is suggested for further evaluation. Renal Ultrasound 11/19/24 16:17 IMPRESSION: No hydronephrosis or renal calculi. Findings suggesting medical renal disease. Free fluid within the pelvis. Abdomen/Pelvis CT 11/20/24 14:44 IMPRESSION: Large bilateral pleural effusions, with bilateral lower lobe atelectasis. Infection in the lower lobes is not excluded. Single loop of dilated jejunum, likely representing localized ileus. Early/partial obstruction could appear similarly. Colonic wall thickening, as can be seen with colitis. Moderate ascites. Diffuse edema of the subcutaneous fat and mesenteric fat. Venous Doppler Study 11/22/24 10:28 IMPRESSION: 1. No deep venous thrombosis in either lower limb. Chest X-Ray 11/23/24 12:23 IMPRESSION: 1. Moderate-sized pleural effusions with slight worsening. 2. Stable airspace opacities in the mid and lower lung zones, consistent with atelectasis versus pneumonia. Renal Scan Nuclear Medicine 11/23/24 14:21 IMPRESSION: 1. Symmetric kidney function. 2. Delayed activity clearance from both kidneys with continually rising activity curves extending over the 30 minutes of observation and without associated hydronephrosis consistent with nonspecific, nonobstructive nephropathy. Labs Labs: Laboratory Results - last 24 hr 11/23/24 11/23/24 11/24/24 16:57 20:18 07:40 WBC RBC Hgb Hct MCV MCH MCHC RDW Plt Count MPV Immature Gran % (Auto) Neut % (Auto) Lymph % (Auto) [place] % (Auto) Eos % (Auto) Baso % (Auto) Lymph # (Auto) [place] # (Auto) Eos # (Auto) Baso # (Auto) Abs Immat Gran (auto) Absolute Neuts (auto) Absolute Nucleated RBC Nucleated RBC % Sodium Potassium Chloride Carbon Dioxide Anion Gap BUN Creatinine Estim Creat Clear Calc Estimated GFR Glucose POC Capillary Glucose 98 88 84 Calcium Phosphorus Magnesium Total Bilirubin AST ALT Alkaline Phosphatase Total Protein Albumin 11/24/24 11/24/24 07:57 11:52 WBC 19.7 H RBC 3.36 L Hgb 9.8 L Hct 30.1 L MCV 89.6 MCH 29.2 MCHC 32.6 RDW 14.8 H Plt Count 934 H MPV 9.3 Immature Gran % (Auto) 2.9 H Neut % (Auto) 86.4 H Lymph % (Auto) 6.3 L [place] % (Auto) 3.7 Eos % (Auto) 0.2 Baso % (Auto) 0.5 Lymph # (Auto) 1.25 [place] # (Auto) 0.7 H Eos # (Auto) 0.0 Baso # (Auto) 0.1 Abs Immat Gran (auto) 0.57 H Absolute Neuts (auto) 17.1 H Absolute Nucleated RBC 0.000 Nucleated RBC % 0.0 Sodium 143 Potassium 3.8 Chloride 117 H Carbon Dioxide 20 L Anion Gap 6 BUN 34 H Creatinine 4.20 H Estim Creat Clear Calc 12 Estimated GFR 14 L Glucose 91 POC Capillary Glucose 110 H Calcium 8.0 L Phosphorus 5.1 H Magnesium 2.3 Total Bilirubin 0.4 AST 19 ALT 9 Alkaline Phosphatase 125 Total Protein 6.0 L Albumin 2.7 L Quality VTE Prophylaxis VTE prophylaxis: mechanical ordered and pharmacologic ordered Hospitalist MIPS Advance Care Plan I have confirmed that the patient's Advanced Care Plan is present, code status is documented, or surrogate decision maker is listed in patient medical record.: Yes Medication Reconciliation I have utilized all available resources to obtain, update and review the patients current medications (includes all prescriptions, OTC, herbals, cannabis, and nutritional supplements).: Yes
[2024-11-24 17:00] LABS: Glucose Point of Care 114 mg/dl (65-105)
[2024-11-24 20:02] LABS: Glucose Point of Care 159 mg/dl (65-105)
[2024-11-25 05:23] VITALS: BP 185/100; PULSE 85; RESP 14; TEMP 36.2; O2SAT 92
[2024-11-25 08:02] LABS: Glucose Point of Care 102 mg/dl (65-105)
[2024-11-25 08:04] LABS: Basophils Absolute Auto 0.1 K/mm3 (0.0-0.1); Basophils Percent Auto 0.5 % (0.2-1.2); Eosinophils Percent Auto 0.1 % (0-4.4); Hematocrit 30.3 % (42.0-52.0); Hemoglobin 9.9 g/dL (14.0-18.0); Immature Granulocyte Absolute 0.86 K/mm3 (0.00-0.031); Immature Granulocyte Percent A 4.1 % (0-0.5); Lymphocytes Percent Auto 4.8 % (18.3-44.2); Mean Corpuscular HGB Conc 32.7 g/dl (32-36); Mean Corpuscular Hemoglobin 28.9 pg (26-34); Mean Corpuscular Volume 88.3 fl (80-100); Mean Platelet Volume 9.4 fl (7.4-10.4); Monocytes Absolute Auto 0.7 K/mm3 (0.1-0.6); Monocytes Percent Auto 3.2 % (2.6-8.5); Neutrophils Absolute Auto 18.1 K/mm3 (1.3-6.7); Neutrophils Percent Auto 87.3 % (45.5-73.1); Platelet Count Result 960 k/mm3 (150-375); Red Blood Count 3.43 M/mm3 (4.6-6.20); Red Cell Distribution Width 14.9 % (11.5-14.5); White Blood Count 20.8 K/mm3 (4.5-10.0)
[2024-11-25 08:21] LABS: Alanine Aminotransferase 10 U/L (6-50); Albumin Level 2.7 g/dL (3.5-5.1); Alkaline Phosphatase 115 U/L (38-126); Anion Gap 6 mmol/L (4-12); Aspartate Amino Transferase 22 U/L (17-59); Bilirubin,Total 0.4 mg/dL (0.2-1.3); Blood Urea Nitrogen 32 mg/dL (9-20); Carbon Dioxide 21 mmol/L (22-30); Chloride 118 mmol/L (98-107); Estimated CRCL calculation 12 ml/min; Estimated Glomerular Filt Rate 14; Glucose 106 mg/dL (65-110); Potassium 3.4 mmol/L (3.4-5.0); Sodium 145 mmol/L (137-145)
[2024-11-25 08:31] LABS: Magnesium 2.2 mg/dL (1.6-2.3); Phosphorus 4.6 mg/dL (2.5-4.5)
--- NOTE | 2024-11-25 08:34 | PM.IMPN ---
Progress Note: A&P Assessment and Plan (1) Metabolic acidosis: Code(s): E87.20 - Acidosis, unspecified Status: Acute Assessment and Plan: Gradually improving, will continue current treatment and monitor. (2) DEBI (acute kidney injury): Code(s): N17.9 - Acute kidney failure, unspecified Status: Acute Assessment and Plan: Creatinine trending up Kidney ultrasound medical disease (3) Perforated gastric ulcer: Qualifiers: Gastric ulcer chronicity: acute Qualified Code(s): K25.1 - Acute gastric ulcer with perforation Code(s): K25.5 - Chronic or unspecified gastric ulcer with perforation Status: Acute Assessment and Plan: Continue with Protonix and monitor hgb (4) COPD (chronic obstructive pulmonary disease): Code(s): J44.9 - Chronic obstructive pulmonary disease, unspecified Status: Acute Assessment and Plan: Stable on current medications. Will continue current treatment. (5) Sepsis: Code(s): A41.9 - Sepsis, unspecified organism Status: Acute Assessment and Plan: Continue antibiotics and monitor cultures (6) Pneumonia: Code(s): J18.9 - Pneumonia, unspecified organism Status: Acute Assessment and Plan: Continue antibiotics gradually getting better (7) Acute hypoxic respiratory failure: Code(s): J96.01 - Acute respiratory failure with hypoxia Status: Acute Assessment and Plan: Better and improving (8) Sepsis associated hypotension: Code(s): A41.9 - Sepsis, unspecified organism; I95.9 - Hypotension, unspecified Status: Acute Assessment and Plan: Continue IV antibiotics and monitor cultures (9) EtOH dependence: Code(s): F10.20 - Alcohol dependence, uncomplicated Status: Acute Assessment and Plan: Counselling given Plan Code status full DVT prophylaxis on Sq Lovenox PT/OT following Subjective Date/time seen: 11/25/24 08:34 Interval history: No acute events overnight. Status post HARLEY drain removal. Surgery will remove the chencho on Tuesday. Review of Systems Review of Systems: Pt with a dry throat not talking loudly with ng tube in situ on tube feeds looks weak and tired ROS unobtainable: Yes unobtainable due to endotracheal tube, unobtainable due to medical condition and unobtainable due to mental status Exam Narrative: General: More alert toady Lungs/Chest: Trachea central Coarse BS B/L, No crackles or wheezing. Cardiac: RRR. Normal S1 S2. No murmurs Abdomen: Decreased but present bowel sounds. HARLEY drain in place. Soft. Tender to palpation as patient grimaces on exam. Extremities: No clubbing, cyanosis or edema. Warm : Shen in place Neurologic: Patient is able to move all 4 extremities spontaneously. Objective Data Vital Signs Vital Signs: Vital Signs - 24 hr 11/24/24 10:30 11/24/24 10:30 11/24/24 10:40 Temperature Pulse Rate 83 82 Respiratory Rate 20 20 Blood Pressure Pulse Oximetry 97 Oxygen Delivery Nasal Cannula Oxygen Flow Rate 4 11/24/24 11:32 11/24/24 14:08 11/24/24 20:12 Temperature 98.1 F 97.8 F Pulse Rate 91 88 Respiratory Rate 16 14 Blood Pressure 157/80 H 164/94 H Pulse Oximetry 93 94 100 Oxygen Delivery Nasal Cannula Oxygen Flow Rate 2 11/24/24 20:50 11/24/24 21:17 11/24/24 21:20 Temperature Pulse Rate 83 Respiratory Rate 18 Blood Pressure Pulse Oximetry 100 93 Oxygen Delivery Nasal Cannula Nasal Cannula Oxygen Flow Rate 3 3 11/24/24 21:23 11/25/24 05:23 Temperature 97.1 F L Pulse Rate 80 85 Respiratory Rate 18 14 Blood Pressure 185/100 H Pulse Oximetry 92 Oxygen Delivery Oxygen Flow Rate Intake/Output Intake/Output: Intake & Output 11/22/24 11/23/24 11/24/24 11/25/24 23:59 23:59 23:59 23:59 Intake Total 2059 200 340 200 Balance 2059 200 340 200 Meds/Results Medications: Active Medications Generic Name Dose Route Start Last Admin Trade Name Freq PRN Reason Stop Dose Admin Acetaminophen 650 mg 11/06/24 14:48 11/07/24 19:10 Acetaminophen 650 Mg Suppository RECTAL 650 mg Q4H PRN Administration Mild Pain (1-3) or Fever Acetaminophen 650 mg 11/14/24 15:21 Acetaminophen Elixir 325 Mg/10.15 Ml Udc FEED TUBE Q4H PRN Headache, Fever, Mild Pain Hydrocodone Bitart/Acetaminophen 1 tab 11/08/24 13:37 11/18/24 00:29 Hydrocodone/Acetaminophen (*Crx) 5-325 Mg Tablet FEED TUBE 1 tab Q4H PRN Administration Pain Rated 4-6 Acetylcysteine 200 mg 11/09/24 20:00 11/24/24 21:17 Acetylcysteine 20% Inhal Soln 800 Mg/4 Ml Vial INHALATION 200 mg Q12HRT SOURAV Administration Albuterol 2.5 mg 11/09/24 15:38 11/24/24 10:27 Albuterol Sulfate Neb 2.5 Mg/3 Ml Inh INHALATION 2.5 mg Q12HR PRN Administration Shortness Of Breath Amlodipine Besylate 5 mg 11/11/24 09:00 11/24/24 09:21 Amlodipine Besylate 5 Mg Tablet PO 5 mg DAILY SOURAV Administration Dextrose 12.5 gm 11/06/24 07:40 11/21/24 16:58 Dextrose 50% 25 Gm/50 Ml Syringe IV PUSH 12.5 gm PRN PRN Administration Hypoglycemia Protocol Dronabinol 5 mg 11/17/24 17:00 11/24/24 18:03 Dronabinol (*Crx) 2.5 Mg Capsule PO 5 mg BID SOURAV Administration Enoxaparin Sodium 30 mg 11/18/24 09:00 11/24/24 09:22 Enoxaparin 30 Mg/0.3 Ml Syringe SUB-Q 30 mg DAILY SOURAV Administration Folic Acid 1 mg 11/06/24 09:00 11/24/24 09:47 Folic Acid 1 Mg/0.2 Ml Inj IV PUSH 1 mg QAM SOURAV Administration Glucagon 1 mg 11/06/24 07:40 Glucagon For Inj 1 Mg Vial IM PRN PRN Hypoglycemia Protocol Glucose 15 gm 11/06/24 07:40 Glucose Oral Gel 15 Gm Of Glucse In 37.5 Gm Tube PO PRN PRN Hypoglycemia Protocol Hydralazine HCl 10 mg 11/10/24 09:16 11/24/24 06:17 Hydralazine Hcl 20 Mg/Ml Vial IV PUSH 10 mg Q4HR PRN Administration Blood Pressure - High Dextrose 1,000 mls @ 100 mls/hr 11/06/24 07:40 Dextrose 5% 1,000 Ml IVPB PRN PRN Hypoglycemia Protocol Insulin Aspart 2 - 5 units 11/18/24 08:00 11/24/24 18:00 Insulin Aspart (*Bkc) 100 Units/Ml SUB-Q Not Given TIDWM SOURAV Protocol Morphine Sulfate 2 mg 11/08/24 07:39 Morphine Sulfate (*Crx) 2 Mg/Ml Inj IV PUSH Q2H PRN Moderate Pain (4-6) Morphine Sulfate 4 mg 11/08/24 07:39 11/21/24 06:47 Morphine Sulfate (*Crx) 4 Mg/Ml Inj IV PUSH 4 mg Q2H PRN Administration Pain Rated 7-10 Naloxone HCl 0.1 mg 11/06/24 00:01 Naloxone Hcl 0.4 Mg/Ml Vial IV PUSH Q2M PRN Opiate Reversal Ondansetron HCl 4 mg 11/06/24 00:01 11/21/24 06:47 Ondansetron Inj 4 Mg/2 Ml Vial IV PUSH 4 mg Q4H PRN Administration Nausea And Vomiting Pantoprazole Sodium 40 mg 11/06/24 09:00 11/24/24 20:58 Pantoprazole Sodium Iv 40 Mg Vial IV PUSH 40 mg Q12HR SOURAV Administration Phenyleph/Shark Oil/[place] Butter 1 supp 11/19/24 18:18 11/19/24 18:33 Phenylephrine Hcl/[place] Butter Supp.Rect (*Bkc) RECTAL 1 supp Q12HR PRN Administration Hemorrhoids Thiamine HCl 100 mg 11/06/24 09:00 11/24/24 09:46 Thiamine Hcl 200 Mg/2 Ml Vial IV PUSH 100 mg QAM SOURAV Administration Radiology Results: ITS Impressions Head CT 11/05/24 20:50 IMPRESSION: 1. Moderate nonspecific cerebral white matter disease, which likely represents chronic small vessel ischemic disease. 2. 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 Upper GI Series 11/08/24 12:17 IMPRESSION: 1. Slow gastric emptying likely related to postoperative ileus. No extraluminal leakage of contrast. Chest/Abdomen/Pelvis CT 11/10/24 10:38 IMPRESSION: 1. Small volume of ascites with mass effect on right lateral aspect of the liver, likely an exudate. 2. Small pleural effusions. 3. Wall thickening of the descending and sigmoid colon and rectum, consistent with colitis versus interstitial edema. Catheter Placement CT 11/12/24 14:47 IMPRESSION: 1. Successful CT-guided right upper quadrant abdominal abscess drainage yielding yellow fluid. Modified Barium Swallow 11/13/24 12:24 IMPRESSION: 1. Laryngeal penetration. 2. Please refer to the speech therapy report for recommendations. Abdomen X-Ray 11/14/24 11:13 IMPRESSION: Nonspecific, nonobstructive bowel gas pattern. Supportive devices unchanged in position. Bilateral pleural effusions. If clinical suspicion persists, CT examination of the abdomen and pelvis (with intravenous contrast) is suggested for further evaluation. Renal Ultrasound 11/19/24 16:17 IMPRESSION: No hydronephrosis or renal calculi. Findings suggesting medical renal disease. Free fluid within the pelvis. Abdomen/Pelvis CT 11/20/24 14:44 IMPRESSION: Large bilateral pleural effusions, with bilateral lower lobe atelectasis. Infection in the lower lobes is not excluded. Single loop of dilated jejunum, likely representing localized ileus. Early/partial obstruction could appear similarly. Colonic wall thickening, as can be seen with colitis. Moderate ascites. Diffuse edema of the subcutaneous fat and mesenteric fat. Venous Doppler Study 11/22/24 10:28 IMPRESSION: 1. No deep venous thrombosis in either lower limb. Chest X-Ray 11/23/24 12:23 IMPRESSION: 1. Moderate-sized pleural effusions with slight worsening. 2. Stable airspace opacities in the mid and lower lung zones, consistent with atelectasis versus pneumonia. Renal Scan Nuclear Medicine 11/23/24 14:21 IMPRESSION: 1. Symmetric kidney function. 2. Delayed activity clearance from both kidneys with continually rising activity curves extending over the 30 minutes of observation and without associated hydronephrosis consistent with nonspecific, nonobstructive nephropathy. Labs Labs: Laboratory Results - last 24 hr 11/24/24 11/24/24 11/24/24 11:52 16:53 19:35 Sodium Potassium Chloride Carbon Dioxide Anion Gap BUN Creatinine Estim Creat Clear Calc Estimated GFR Glucose POC Capillary Glucose 110 H 114 H 159 H Calcium Phosphorus Magnesium Total Bilirubin AST ALT Alkaline Phosphatase Total Protein Albumin 11/25/24 11/25/24 07:53 08:00 Sodium 145 Potassium 3.4 Chloride 118 H Carbon Dioxide 21 L Anion Gap 6 BUN 32 H Creatinine 4.10 H Estim Creat Clear Calc 12 Estimated GFR 14 L Glucose 106 POC Capillary Glucose 102 Calcium 8.0 L Phosphorus 4.6 H Magnesium 2.2 Total Bilirubin 0.4 AST 22 ALT 10 Alkaline Phosphatase 115 Total Protein 6.0 L Albumin 2.7 L Quality VTE Prophylaxis VTE prophylaxis: mechanical ordered and pharmacologic ordered Hospitalist MIPS Advance Care Plan I have confirmed that the patient's Advanced Care Plan is present, code status is documented, or surrogate decision maker is listed in patient medical record.: Yes Medication Reconciliation I have utilized all available resources to obtain, update and review the patients current medications (includes all prescriptions, OTC, herbals, cannabis, and nutritional supplements).: Yes
[2024-11-25 09:00] VITALS: PULSE 84; RESP 18; O2SAT 93
[2024-11-25] MEDS: ACETYLCYSTEINE 20% INHAL SOLN 800 MG/4 ML VIAL 200 MG INHALATION (09:00)
[2024-11-25] MEDS: ALBUTEROL SULFATE NEB 2.5 MG/3 ML INH INHALATION (09:00)
[2024-11-25] MEDS: droNABinol (*CRX) 2.5 MG CAPSULE 5 MG PO ×2 (09:11→17:50)
[2024-11-25 09:12] VITALS: PULSE 82; RESP 18
[2024-11-25] MEDS: amLODIPine BESYLATE 5 MG TABLET PO (09:12)
[2024-11-25] MEDS: PANTOPRAZOLE SODIUM IV 40 MG VIAL IV PUSH ×2 (09:25→20:13)
[2024-11-25] MEDS: THIAMINE HCL 200 MG/2 ML VIAL 100 MG IV PUSH (09:26)
[2024-11-25] MEDS: FOLIC ACID 1 MG/0.2 ML INJ IV PUSH (09:26)
[2024-11-25] MEDS: ENOXAPARIN 30 MG/0.3 ML SYRINGE SUB-Q (09:26)
[2024-11-25 11:46] LABS: Glucose Point of Care 118 mg/dl (65-105)
--- NOTE | 2024-11-25 12:15 | PM.PNGS ---
Progress Note: A&P Assessment and Plan (1) Perforated gastric ulcer: Qualifiers: Gastric ulcer chronicity: acute Qualified Code(s): K25.1 - Acute gastric ulcer with perforation Code(s): K25.5 - Chronic or unspecified gastric ulcer with perforation Status: Acute Assessment and Plan: stable, cont to encourage po, OOB, PT/OT, will remove chencho and perc drain in am Subjective Subjective Date/Time Seen: 11/25/24 12:15 Interval history: feels ok, seems to be eating more Review of Systems Review of Systems: All systems reviewed & are unremarkable except as noted in HPI and below Exam Const: General: cooperative, comfortable, no acute distress and ill appearing Resp: Auscultation: diminished lung sounds Cardio: Rate: regular rate Rhythm: regular rhythm GI: Inspection: normal to inspection, distended and incision GI Palp: No abdominal tenderness and Yes Soft to palpation Objective Data Vital Signs Vital Signs: Vital Signs - 24 hr 11/24/24 14:08 11/24/24 20:12 11/24/24 20:50 Temperature 36.7 C 36.6 C Pulse Rate 91 88 Respiratory Rate 16 14 Blood Pressure 157/80 H 164/94 H Pulse Oximetry 94 100 100 Oxygen Delivery Nasal Cannula Oxygen Flow Rate 3 Fraction of Inspired Oxygen 11/24/24 21:17 11/24/24 21:20 11/24/24 21:23 Temperature Pulse Rate 83 80 Respiratory Rate 18 18 Blood Pressure Pulse Oximetry 93 Oxygen Delivery Nasal Cannula Oxygen Flow Rate 3 Fraction of Inspired Oxygen 11/25/24 05:23 11/25/24 08:00 11/25/24 09:00 Temperature 36.2 C L Pulse Rate 85 Respiratory Rate 14 Blood Pressure 185/100 H Pulse Oximetry 92 93 Oxygen Delivery Room Air Non-Rebreather Mask Oxygen Flow Rate 3 Fraction of Inspired Oxygen 32 11/25/24 09:00 11/25/24 09:12 Temperature Pulse Rate 84 82 Respiratory Rate 18 18 Blood Pressure Pulse Oximetry Oxygen Delivery Oxygen Flow Rate Fraction of Inspired Oxygen Intake/Output Intake/Output: Intake & Output 11/22/24 11/23/24 11/24/24 11/25/24 23:59 23:59 23:59 23:59 Intake Total 2059 200 340 560 Balance 2059 200 340 560 Meds/Results Medications: Active Medications Generic Name Dose Route Start Last Admin Trade Name Freq PRN Reason Stop Dose Admin Acetaminophen 650 mg 11/06/24 14:48 11/07/24 19:10 Acetaminophen 650 Mg Suppository RECTAL 650 mg Q4H PRN Administration Mild Pain (1-3) or Fever Acetaminophen 650 mg 11/14/24 15:21 Acetaminophen Elixir 325 Mg/10.15 Ml Udc FEED TUBE Q4H PRN Headache, Fever, Mild Pain Hydrocodone Bitart/Acetaminophen 1 tab 11/08/24 13:37 11/18/24 00:29 Hydrocodone/Acetaminophen (*Crx) 5-325 Mg Tablet FEED TUBE 1 tab Q4H PRN Administration Pain Rated 4-6 Acetylcysteine 200 mg 11/09/24 20:00 11/25/24 09:00 Acetylcysteine 20% Inhal Soln 800 Mg/4 Ml Vial INHALATION 200 mg Q12HRT SOURAV Administration Albuterol 2.5 mg 11/09/24 15:38 11/25/24 09:00 Albuterol Sulfate Neb 2.5 Mg/3 Ml Inh INHALATION 2.5 mg Q12HR PRN Administration Shortness Of Breath Amlodipine Besylate 5 mg 11/11/24 09:00 11/25/24 09:12 Amlodipine Besylate 5 Mg Tablet PO 5 mg DAILY SOURAV Administration Dextrose 12.5 gm 11/06/24 07:40 11/21/24 16:58 Dextrose 50% 25 Gm/50 Ml Syringe IV PUSH 12.5 gm PRN PRN Administration Hypoglycemia Protocol Dronabinol 5 mg 11/17/24 17:00 11/25/24 09:11 Dronabinol (*Crx) 2.5 Mg Capsule PO 5 mg BID SOURAV Administration Enoxaparin Sodium 30 mg 11/18/24 09:00 11/25/24 09:26 Enoxaparin 30 Mg/0.3 Ml Syringe SUB-Q 30 mg DAILY SOURAV Administration Folic Acid 1 mg 11/06/24 09:00 11/25/24 09:26 Folic Acid 1 Mg/0.2 Ml Inj IV PUSH 1 mg QAM SOURAV Administration Glucagon 1 mg 11/06/24 07:40 Glucagon For Inj 1 Mg Vial IM PRN PRN Hypoglycemia Protocol Glucose 15 gm 11/06/24 07:40 Glucose Oral Gel 15 Gm Of Glucse In 37.5 Gm Tube PO PRN PRN Hypoglycemia Protocol Hydralazine HCl 10 mg 11/10/24 09:16 11/24/24 06:17 Hydralazine Hcl 20 Mg/Ml Vial IV PUSH 10 mg Q4HR PRN Administration Blood Pressure - High Dextrose 1,000 mls @ 100 mls/hr 11/06/24 07:40 Dextrose 5% 1,000 Ml IVPB PRN PRN Hypoglycemia Protocol Insulin Aspart 2 - 5 units 11/18/24 08:00 11/25/24 09:12 Insulin Aspart (*Bkc) 100 Units/Ml SUB-Q Not Given TIDWM [facility] Protocol Morphine Sulfate 2 mg 11/08/24 07:39 Morphine Sulfate (*Crx) 2 Mg/Ml Inj IV PUSH Q2H PRN Moderate Pain (4-6) Morphine Sulfate 4 mg 11/08/24 07:39 11/21/24 06:47 Morphine Sulfate (*Crx) 4 Mg/Ml Inj IV PUSH 4 mg Q2H PRN Administration Pain Rated 7-10 Naloxone HCl 0.1 mg 11/06/24 00:01 Naloxone Hcl 0.4 Mg/Ml Vial IV PUSH Q2M PRN Opiate Reversal Ondansetron HCl 4 mg 11/06/24 00:01 11/21/24 06:47 Ondansetron Inj 4 Mg/2 Ml Vial IV PUSH 4 mg Q4H PRN Administration Nausea And Vomiting Pantoprazole Sodium 40 mg 11/06/24 09:00 11/25/24 09:26 Pantoprazole Sodium Iv 40 Mg Vial IV PUSH 40 mg Q12HR SOURAV Administration Phenyleph/Shark Oil/Equality Butter 1 supp 11/19/24 18:18 11/19/24 18:33 Phenylephrine Hcl/Equality Butter Supp.Rect (*Bkc) RECTAL 1 supp Q12HR PRN Administration Hemorrhoids Thiamine HCl 100 mg 11/06/24 09:00 11/25/24 09:26 Thiamine Hcl 200 Mg/2 Ml Vial IV PUSH 100 mg QAM SOURAV Administration Radiology Results: ITS Impressions Head CT 11/05/24 20:50 IMPRESSION: 1. Moderate nonspecific cerebral white matter disease, which likely represents chronic small vessel ischemic disease. 2. 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 Upper GI Series 11/08/24 12:17 IMPRESSION: 1. Slow gastric emptying likely related to postoperative ileus. No extraluminal leakage of contrast. Chest/Abdomen/Pelvis CT 11/10/24 10:38 IMPRESSION: 1. Small volume of ascites with mass effect on right lateral aspect of the liver, likely an exudate. 2. Small pleural effusions. 3. Wall thickening of the descending and sigmoid colon and rectum, consistent with colitis versus interstitial edema. Catheter Placement CT 11/12/24 14:47 IMPRESSION: 1. Successful CT-guided right upper quadrant abdominal abscess drainage yielding yellow fluid. Modified Barium Swallow 11/13/24 12:24 IMPRESSION: 1. Laryngeal penetration. 2. Please refer to the speech therapy report for recommendations. Abdomen X-Ray 11/14/24 11:13 IMPRESSION: Nonspecific, nonobstructive bowel gas pattern. Supportive devices unchanged in position. Bilateral pleural effusions. If clinical suspicion persists, CT examination of the abdomen and pelvis (with intravenous contrast) is suggested for further evaluation. Renal Ultrasound 11/19/24 16:17 IMPRESSION: No hydronephrosis or renal calculi. Findings suggesting medical renal disease. Free fluid within the pelvis. Abdomen/Pelvis CT 11/20/24 14:44 IMPRESSION: Large bilateral pleural effusions, with bilateral lower lobe atelectasis. Infection in the lower lobes is not excluded. Single loop of dilated jejunum, likely representing localized ileus. Early/partial obstruction could appear similarly. Colonic wall thickening, as can be seen with colitis. Moderate ascites. Diffuse edema of the subcutaneous fat and mesenteric fat. Venous Doppler Study 11/22/24 10:28 IMPRESSION: 1. No deep venous thrombosis in either lower limb. Chest X-Ray 11/23/24 12:23 IMPRESSION: 1. Moderate-sized pleural effusions with slight worsening. 2. Stable airspace opacities in the mid and lower lung zones, consistent with atelectasis versus pneumonia. Renal Scan Nuclear Medicine 11/23/24 14:21 IMPRESSION: 1. Symmetric kidney function. 2. Delayed activity clearance from both kidneys with continually rising activity curves extending over the 30 minutes of observation and without associated hydronephrosis consistent with nonspecific, nonobstructive nephropathy. Labs Labs: Laboratory Results - last 24 hr 11/24/24 11/24/24 11/25/24 16:53 19:35 07:53 WBC 20.8 H RBC 3.43 L Hgb 9.9 L Hct 30.3 L MCV 88.3 MCH 28.9 MCHC 32.7 RDW 14.9 H Plt Count 960 H MPV 9.4 Immature Gran % (Auto) 4.1 H Neut % (Auto) 87.3 H Lymph % (Auto) 4.8 L [place] % (Auto) 3.2 Eos % (Auto) 0.1 Baso % (Auto) 0.5 Lymph # (Auto) 1.00 [place] # (Auto) 0.7 H Eos # (Auto) 0.0 Baso # (Auto) 0.1 Abs Immat Gran (auto) 0.86 H Absolute Neuts (auto) 18.1 H Absolute Nucleated RBC 0.000 Nucleated RBC % 0.0 Sodium 145 Potassium 3.4 Chloride 118 H Carbon Dioxide 21 L Anion Gap 6 BUN 32 H Creatinine 4.10 H Estim Creat Clear Calc 12 Estimated GFR 14 L Glucose 106 POC Capillary Glucose 114 H 159 H Calcium 8.0 L Phosphorus 4.6 H Magnesium 2.2 Total Bilirubin 0.4 AST 22 ALT 10 Alkaline Phosphatase 115 Total Protein 6.0 L Albumin 2.7 L 11/25/24 11/25/24 08:00 11:40 WBC RBC Hgb Hct MCV MCH MCHC RDW Plt Count MPV Immature Gran % (Auto) Neut % (Auto) Lymph % (Auto) [place] % (Auto) Eos % (Auto) Baso % (Auto) Lymph # (Auto) [place] # (Auto) Eos # (Auto) Baso # (Auto) Abs Immat Gran (auto) Absolute Neuts (auto) Absolute Nucleated RBC Nucleated RBC % Sodium Potassium Chloride Carbon Dioxide Anion Gap BUN Creatinine Estim Creat Clear Calc Estimated GFR Glucose POC Capillary Glucose 102 118 H Calcium Phosphorus Magnesium Total Bilirubin AST ALT Alkaline Phosphatase Total Protein Albumin
[2024-11-25 14:00] VITALS: BP 155/88; PULSE 87; RESP 18; TEMP 36.9; O2SAT 97
[2024-11-25 17:04] LABS: Glucose Point of Care 134 mg/dl (65-105)
[2024-11-25 19:31] VITALS: O2SAT 97
[2024-11-25 22:00] VITALS: BP 170/89; PULSE 83; RESP 20; TEMP 36.7; O2SAT 98
[2024-11-26] VITALS (12 sets, daily range): BP systolic 148–173; BP diastolic 62–89; PULSE 62–91; RESP 12–20; TEMP 36.9–37.3; O2SAT 92–96
[2024-11-26] MEDS: hydrALAZINE HCL 20 MG/ML VIAL 10 MG IV PUSH (00:30)
[2024-11-26 00:44] LABS: Glucose Point of Care 119 mg/dl (65-105)
[2024-11-26 08:20] LABS: Glucose Point of Care 88 mg/dl (65-105)
[2024-11-26 08:57] LABS: Basophils Absolute Auto 0.2 K/mm3 (0.0-0.1); Basophils Percent Auto 0.8 % (0.2-1.2); Eosinophils Percent Auto 0.2 % (0-4.4); Hematocrit 29.4 % (42.0-52.0); Hemoglobin 9.3 g/dL (14.0-18.0); Immature Granulocyte Percent A 4.2 % (0-0.5); Lymphocytes Absolute Auto 1.31 K/mm3 (0.9-3.2); Lymphocytes Percent Auto 6.9 % (18.3-44.2); Mean Corpuscular HGB Conc 31.6 g/dl (32-36); Mean Corpuscular Hemoglobin 28.6 pg (26-34); Mean Corpuscular Volume 90.5 fl (80-100); Mean Platelet Volume 9.3 fl (7.4-10.4); Monocytes Absolute Auto 0.9 K/mm3 (0.1-0.6); Monocytes Percent Auto 4.5 % (2.6-8.5); Neutrophils Absolute Auto 15.8 K/mm3 (1.3-6.7); Neutrophils Percent Auto 83.4 % (45.5-73.1); Platelet Count Result 877 k/mm3 (150-375); Red Blood Count 3.25 M/mm3 (4.6-6.20); White Blood Count 18.9 K/mm3 (4.5-10.0)
--- NOTE | 2024-11-26 09:02 | PM.PNGS ---
Progress Note: A&P Assessment and Plan (1) Perforated gastric ulcer: Qualifiers: Gastric ulcer chronicity: acute Qualified Code(s): K25.1 - Acute gastric ulcer with perforation Code(s): K25.5 - Chronic or unspecified gastric ulcer with perforation Status: Acute Assessment and Plan: doing well, chencho and drain removed, would move toward rehab, cont to encourage po, PT/OT Subjective Subjective Date/Time Seen: 11/26/24 09:02 Interval history: no c/o, reports better appetite Review of Systems Review of Systems: All systems reviewed & are unremarkable except as noted in HPI and below Exam Const: General: cooperative, comfortable, no acute distress and ill appearing Resp: Auscultation: clear to auscultation bilaterally Cardio: Rate: regular rate Rhythm: regular rhythm GI: Inspection: normal to inspection, distended and incision GI Palp: No abdominal tenderness and Yes Soft to palpation Other: perc drain c no drainage, removed at bedside, chencho removed Objective Data Vital Signs Vital Signs: Vital Signs - 24 hr 11/25/24 09:12 11/25/24 14:00 11/25/24 19:31 Temperature 36.9 C Pulse Rate 82 87 Respiratory Rate 18 18 Blood Pressure 155/88 H Pulse Oximetry 97 97 Oxygen Delivery Non-Rebreather Mask Oxygen Flow Rate 3 Fraction of Inspired Oxygen 32 11/25/24 22:00 11/26/24 00:50 11/26/24 04:04 Temperature 36.7 C 36.9 C Pulse Rate 83 82 81 Respiratory Rate 20 20 Blood Pressure 170/89 H 156/87 H 156/83 H Pulse Oximetry 98 96 Oxygen Delivery Oxygen Flow Rate Fraction of Inspired Oxygen Intake/Output Intake/Output: Intake & Output 11/23/24 11/24/24 11/25/24 11/26/24 23:59 23:59 23:59 23:59 Intake Total 200 340 620 200 Balance 200 340 620 200 Meds/Results Medications: Active Medications Generic Name Dose Route Start Last Admin Trade Name Freq PRN Reason Stop Dose Admin Acetaminophen 650 mg 11/06/24 14:48 11/07/24 19:10 Acetaminophen 650 Mg Suppository RECTAL 650 mg Q4H PRN Administration Mild Pain (1-3) or Fever Acetaminophen 650 mg 11/14/24 15:21 Acetaminophen Elixir 325 Mg/10.15 Ml Udc FEED TUBE Q4H PRN Headache, Fever, Mild Pain Hydrocodone Bitart/Acetaminophen 1 tab 11/08/24 13:37 11/18/24 00:29 Hydrocodone/Acetaminophen (*Crx) 5-325 Mg Tablet FEED TUBE 1 tab Q4H PRN Administration Pain Rated 4-6 Acetylcysteine 200 mg 11/09/24 20:00 11/25/24 09:00 Acetylcysteine 20% Inhal Soln 800 Mg/4 Ml Vial INHALATION 200 mg Q12HRT SOURAV Administration Albuterol 2.5 mg 11/09/24 15:38 11/25/24 09:00 Albuterol Sulfate Neb 2.5 Mg/3 Ml Inh INHALATION 2.5 mg Q12HR PRN Administration Shortness Of Breath Amlodipine Besylate 5 mg 11/11/24 09:00 11/25/24 09:12 Amlodipine Besylate 5 Mg Tablet PO 5 mg DAILY SOURAV Administration Bumetanide 1 mg 11/26/24 09:00 Bumetanide Inj 1 Mg/4 Ml Vial IV PUSH 11/26/24 09:01 ONCE ONE Dextrose 12.5 gm 11/06/24 07:40 11/21/24 16:58 Dextrose 50% 25 Gm/50 Ml Syringe IV PUSH 12.5 gm PRN PRN Administration Hypoglycemia Protocol Dronabinol 5 mg 11/17/24 17:00 11/25/24 17:50 Dronabinol (*Crx) 2.5 Mg Capsule PO 5 mg BID SOURAV Administration Enoxaparin Sodium 30 mg 11/18/24 09:00 11/25/24 09:26 Enoxaparin 30 Mg/0.3 Ml Syringe SUB-Q 30 mg DAILY SOURAV Administration Folic Acid 1 mg 11/06/24 09:00 11/25/24 09:26 Folic Acid 1 Mg/0.2 Ml Inj IV PUSH 1 mg QAM SOURAV Administration Glucagon 1 mg 11/06/24 07:40 Glucagon For Inj 1 Mg Vial IM PRN PRN Hypoglycemia Protocol Glucose 15 gm 11/06/24 07:40 Glucose Oral Gel 15 Gm Of Glucse In 37.5 Gm Tube PO PRN PRN Hypoglycemia Protocol Hydralazine HCl 10 mg 11/10/24 09:16 11/26/24 00:30 Hydralazine Hcl 20 Mg/Ml Vial IV PUSH 10 mg Q4HR PRN Administration Blood Pressure - High Dextrose 1,000 mls @ 100 mls/hr 11/06/24 07:40 Dextrose 5% 1,000 Ml IVPB PRN PRN Hypoglycemia Protocol Albumin Human 50 mls @ 50 mls/hr 11/26/24 09:00 Albutein IVPB 11/26/24 09:59 ONCE ONE Insulin Aspart 2 - 5 units 11/18/24 08:00 11/25/24 17:50 Insulin Aspart (*Bkc) 100 Units/Ml SUB-Q Not Given TIDWM SOURAV Protocol Morphine Sulfate 2 mg 11/08/24 07:39 Morphine Sulfate (*Crx) 2 Mg/Ml Inj IV PUSH Q2H PRN Moderate Pain (4-6) Morphine Sulfate 4 mg 11/08/24 07:39 11/21/24 06:47 Morphine Sulfate (*Crx) 4 Mg/Ml Inj IV PUSH 4 mg Q2H PRN Administration Pain Rated 7-10 Naloxone HCl 0.1 mg 11/06/24 00:01 Naloxone Hcl 0.4 Mg/Ml Vial IV PUSH Q2M PRN Opiate Reversal Ondansetron HCl 4 mg 11/06/24 00:01 11/21/24 06:47 Ondansetron Inj 4 Mg/2 Ml Vial IV PUSH 4 mg Q4H PRN Administration Nausea And Vomiting Pantoprazole Sodium 40 mg 11/06/24 09:00 11/25/24 20:13 Pantoprazole Sodium Iv 40 Mg Vial IV PUSH 40 mg Q12HR SOURAV Administration Phenyleph/Shark Oil/[place] Butter 1 supp 11/19/24 18:18 11/19/24 18:33 Phenylephrine Hcl/[place] Butter Supp.Rect (*Bkc) RECTAL 1 supp Q12HR PRN Administration Hemorrhoids Thiamine HCl 100 mg 11/06/24 09:00 11/25/24 09:26 Thiamine Hcl 200 Mg/2 Ml Vial IV PUSH 100 mg QAM SOURAV Administration Radiology Results: ITS Impressions Head CT 11/05/24 20:50 IMPRESSION: 1. Moderate nonspecific cerebral white matter disease, which likely represents chronic small vessel ischemic disease. 2. 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 Upper GI Series 11/08/24 12:17 IMPRESSION: 1. Slow gastric emptying likely related to postoperative ileus. No extraluminal leakage of contrast. Chest/Abdomen/Pelvis CT 11/10/24 10:38 IMPRESSION: 1. Small volume of ascites with mass effect on right lateral aspect of the liver, likely an exudate. 2. Small pleural effusions. 3. Wall thickening of the descending and sigmoid colon and rectum, consistent with colitis versus interstitial edema. Catheter Placement CT 11/12/24 14:47 IMPRESSION: 1. Successful CT-guided right upper quadrant abdominal abscess drainage yielding yellow fluid. Modified Barium Swallow 11/13/24 12:24 IMPRESSION: 1. Laryngeal penetration. 2. Please refer to the speech therapy report for recommendations. Abdomen X-Ray 11/14/24 11:13 IMPRESSION: Nonspecific, nonobstructive bowel gas pattern. Supportive devices unchanged in position. Bilateral pleural effusions. If clinical suspicion persists, CT examination of the abdomen and pelvis (with intravenous contrast) is suggested for further evaluation. Renal Ultrasound 11/19/24 16:17 IMPRESSION: No hydronephrosis or renal calculi. Findings suggesting medical renal disease. Free fluid within the pelvis. Abdomen/Pelvis CT 11/20/24 14:44 IMPRESSION: Large bilateral pleural effusions, with bilateral lower lobe atelectasis. Infection in the lower lobes is not excluded. Single loop of dilated jejunum, likely representing localized ileus. Early/partial obstruction could appear similarly. Colonic wall thickening, as can be seen with colitis. Moderate ascites. Diffuse edema of the subcutaneous fat and mesenteric fat. Venous Doppler Study 11/22/24 10:28 IMPRESSION: 1. No deep venous thrombosis in either lower limb. Renal Scan Nuclear Medicine 11/23/24 14:21 IMPRESSION: 1. Symmetric kidney function. 2. Delayed activity clearance from both kidneys with continually rising activity curves extending over the 30 minutes of observation and without associated hydronephrosis consistent with nonspecific, nonobstructive nephropathy. Chest X-Ray 11/25/24 21:47 IMPRESSION: Redemonstration of large bilateral pleural effusions with mild pulmonary vascular congestion. No focal infiltrate. Labs Labs: Laboratory Results - last 24 hr 11/25/24 11/25/24 11/25/24 07:53 11:40 17:00 WBC 20.8 H RBC 3.43 L Hgb 9.9 L Hct 30.3 L MCV 88.3 MCH 28.9 MCHC 32.7 RDW 14.9 H Plt Count 960 H MPV 9.4 Immature Gran % (Auto) 4.1 H Neut % (Auto) 87.3 H Lymph % (Auto) 4.8 L [place] % (Auto) 3.2 Eos % (Auto) 0.1 Baso % (Auto) 0.5 Lymph # (Auto) 1.00 [place] # (Auto) 0.7 H Eos # (Auto) 0.0 Baso # (Auto) 0.1 Abs Immat Gran (auto) 0.86 H Absolute Neuts (auto) 18.1 H Absolute Nucleated RBC 0.000 Nucleated RBC % 0.0 POC Capillary Glucose 118 H 134 H 11/25/24 11/26/24 11/26/24 21:03 08:16 08:47 WBC 18.9 H RBC 3.25 L Hgb 9.3 L Hct 29.4 L MCV 90.5 MCH 28.6 MCHC 31.6 L RDW 15.0 H Plt Count 877 H MPV 9.3 Immature Gran % (Auto) 4.2 H Neut % (Auto) 83.4 H Lymph % (Auto) 6.9 L [place] % (Auto) 4.5 Eos % (Auto) 0.2 Baso % (Auto) 0.8 Lymph # (Auto) 1.31 [place] # (Auto) 0.9 H Eos # (Auto) 0.0 Baso # (Auto) 0.2 H Abs Immat Gran (auto) 0.80 H Absolute Neuts (auto) 15.8 H Absolute Nucleated RBC 0.000 Nucleated RBC % 0.0 POC Capillary Glucose 119 H 88
[2024-11-26 09:10] LABS: Alanine Aminotransferase 11 U/L (6-50); Albumin Level 2.6 g/dL (3.5-5.1); Alkaline Phosphatase 108 U/L (38-126); Anion Gap 2 mmol/L (4-12); Aspartate Amino Transferase 30 U/L (17-59); Bilirubin,Total 0.4 mg/dL (0.2-1.3); Blood Urea Nitrogen 33 mg/dL (9-20); Calcium 8.1 mg/dL (8.4-10.2); Carbon Dioxide 23 mmol/L (22-30); Chloride 117 mmol/L (98-107); Estimated CRCL calculation 17 ml/min; Estimated Glomerular Filt Rate 17; Glucose 91 mg/dL (65-110); Magnesium 2.2 mg/dL (1.6-2.3); Phosphorus 4.7 mg/dL (2.5-4.5); Potassium 3.4 mmol/L (3.4-5.0); Sodium 142 mmol/L (137-145)
[2024-11-26] MEDS: THIAMINE HCL 200 MG/2 ML VIAL 100 MG IV PUSH (09:13)
[2024-11-26] MEDS: ALBUTEROL SULFATE NEB 2.5 MG/3 ML INH INHALATION ×2 (09:13→21:21)
[2024-11-26] MEDS: ACETYLCYSTEINE 20% INHAL SOLN 800 MG/4 ML VIAL 200 MG INHALATION ×2 (09:13→21:21)
[2024-11-26] MEDS: PANTOPRAZOLE SODIUM IV 40 MG VIAL IV PUSH ×2 (09:13→20:35)
[2024-11-26] MEDS: amLODIPine BESYLATE 5 MG TABLET PO (09:14)
[2024-11-26] MEDS: ENOXAPARIN 30 MG/0.3 ML SYRINGE SUB-Q (09:14)
[2024-11-26] MEDS: droNABinol (*CRX) 2.5 MG CAPSULE 5 MG PO ×2 (09:14→15:45)
[2024-11-26] MEDS: BUMETANIDE INJ 1 MG/4 ML VIAL IV PUSH (09:41)
[2024-11-26] MEDS: ALBUMIN HUMAN 25% 12.5 GM/50ML 50 ML IVPB (09:41)
--- NOTE | 2024-11-26 10:31 | P.PNIM_ITS ---
Progress Note: A&P Assessment and Plan (1) Metabolic acidosis: Code(s): E87.20 - Acidosis, unspecified Status: Acute Assessment and Plan: Gradually improving, will continue current treatment and monitor. (2) DEBI (acute kidney injury): Code(s): N17.9 - Acute kidney failure, unspecified Status: Acute Assessment and Plan: Creatinine trending up Kidney ultrasound medical disease (3) Perforated gastric ulcer: Qualifiers: Gastric ulcer chronicity: acute Qualified Code(s): K25.1 - Acute gastric ulcer with perforation Code(s): K25.5 - Chronic or unspecified gastric ulcer with perforation Status: Acute Assessment and Plan: Continue with Protonix and monitor hgb (4) COPD (chronic obstructive pulmonary disease): Code(s): J44.9 - Chronic obstructive pulmonary disease, unspecified Status: Acute Assessment and Plan: Stable on current medications. Will continue current treatment. (5) Sepsis: Code(s): A41.9 - Sepsis, unspecified organism Status: Acute Assessment and Plan: Continue antibiotics and monitor cultures (6) Pneumonia: Code(s): J18.9 - Pneumonia, unspecified organism Status: Acute Assessment and Plan: Continue antibiotics gradually getting better (7) Acute hypoxic respiratory failure: Code(s): J96.01 - Acute respiratory failure with hypoxia Status: Acute Assessment and Plan: Better and improving (8) Sepsis associated hypotension: Code(s): A41.9 - Sepsis, unspecified organism; I95.9 - Hypotension, unspecified Status: Acute Assessment and Plan: Continue IV antibiotics and monitor cultures (9) EtOH dependence: Code(s): F10.20 - Alcohol dependence, uncomplicated Status: Acute Assessment and Plan: Counselling given Plan Code status full DVT prophylaxis on Sq Lovenox PT/OT following Subjective Date/time seen: 11/26/24 10:31 Interval history: Patient continues to feel better. No signs of infection. Patient has increased WBC and creatinine. Unable to find the source of infection. Surgical site looks clean. Patient was receiving micafungin until 0 1/0 4. His creatinine is trending down. Nephrology following. Off note: On 11/05/24 he underwent exploratory laparotomy, extensive lysis of adhesions, intra-abdominal washout, repair of perforated gastric ulcer with omental patch. Patient was admitted in the ICU and downgraded to floor on 11/09 . Review of Systems Review of Systems: Pt with a dry throat not talking loudly with ng tube in situ on tube feeds looks weak and tired ROS unobtainable: Yes unobtainable due to endotracheal tube, unobtainable due to medical condition and unobtainable due to mental status Exam Narrative: General: More alert toady Lungs/Chest: Trachea central Coarse BS B/L, No crackles or wheezing. Cardiac: RRR. Normal S1 S2. No murmurs Abdomen: Decreased but present bowel sounds. HARLEY drain in place. Soft. Tender to palpation as patient grimaces on exam. Extremities: No clubbing, cyanosis or edema. Warm : Shen in place Neurologic: Patient is able to move all 4 extremities spontaneously. Objective Data Vital Signs Vital Signs: Vital Signs - 24 hr 11/25/24 14:00 11/25/24 19:31 11/25/24 22:00 Temperature 98.5 F 98.1 F Pulse Rate 87 83 Respiratory Rate 18 20 Blood Pressure 155/88 H 170/89 H Pulse Oximetry 97 97 98 Oxygen Delivery Non-Rebreather Mask Oxygen Flow Rate 3 Fraction of Inspired Oxygen 32 11/26/24 00:50 11/26/24 04:04 11/26/24 09:13 Temperature 98.4 F Pulse Rate 82 81 Respiratory Rate 20 Blood Pressure 156/87 H 156/83 H Pulse Oximetry 96 94 Oxygen Delivery Nasal Cannula Oxygen Flow Rate 3 Fraction of Inspired Oxygen 32 11/26/24 09:13 11/26/24 09:25 Temperature Pulse Rate 80 88 Respiratory Rate 20 20 Blood Pressure Pulse Oximetry Oxygen Delivery Oxygen Flow Rate Fraction of Inspired Oxygen Intake/Output Intake/Output: Intake & Output 11/23/24 11/24/24 11/25/24 11/26/24 23:59 23:59 23:59 23:59 Intake Total 200 340 620 200 Balance 200 340 620 200 Meds/Results Medications: Active Medications Generic Name Dose Route Start Last Admin Trade Name Freq PRN Reason Stop Dose Admin Acetaminophen 650 mg 11/06/24 14:48 11/07/24 19:10 Acetaminophen 650 Mg Suppository RECTAL 650 mg Q4H PRN Administration Mild Pain (1-3) or Fever Acetaminophen 650 mg 11/14/24 15:21 Acetaminophen Elixir 325 Mg/10.15 Ml Udc FEED TUBE Q4H PRN Headache, Fever, Mild Pain Hydrocodone Bitart/Acetaminophen 1 tab 11/08/24 13:37 11/18/24 00:29 Hydrocodone/Acetaminophen (*Crx) 5-325 Mg Tablet FEED TUBE 1 tab Q4H PRN Administration Pain Rated 4-6 Acetylcysteine 200 mg 11/09/24 20:00 11/26/24 09:13 Acetylcysteine 20% Inhal Soln 800 Mg/4 Ml Vial INHALATION 200 mg Q12HRT SOURAV Administration Albuterol 2.5 mg 11/09/24 15:38 11/26/24 09:13 Albuterol Sulfate Neb 2.5 Mg/3 Ml Inh INHALATION 2.5 mg Q12HR PRN Administration Shortness Of Breath Amlodipine Besylate 5 mg 11/11/24 09:00 11/26/24 09:14 Amlodipine Besylate 5 Mg Tablet PO 5 mg DAILY SOURAV Administration Dextrose 12.5 gm 11/06/24 07:40 11/21/24 16:58 Dextrose 50% 25 Gm/50 Ml Syringe IV PUSH 12.5 gm PRN PRN Administration Hypoglycemia Protocol Dronabinol 5 mg 11/17/24 17:00 11/26/24 09:14 Dronabinol (*Crx) 2.5 Mg Capsule PO 5 mg BID SOURAV Administration Enoxaparin Sodium 30 mg 11/18/24 09:00 11/26/24 09:14 Enoxaparin 30 Mg/0.3 Ml Syringe SUB-Q 30 mg DAILY SOURAV Administration Folic Acid 1 mg 11/06/24 09:00 11/25/24 09:26 Folic Acid 1 Mg/0.2 Ml Inj IV PUSH 1 mg QAM SOURAV Administration Glucagon 1 mg 11/06/24 07:40 Glucagon For Inj 1 Mg Vial IM PRN PRN Hypoglycemia Protocol Glucose 15 gm 11/06/24 07:40 Glucose Oral Gel 15 Gm Of Glucse In 37.5 Gm Tube PO PRN PRN Hypoglycemia Protocol Hydralazine HCl 10 mg 11/10/24 09:16 11/26/24 00:30 Hydralazine Hcl 20 Mg/Ml Vial IV PUSH 10 mg Q4HR PRN Administration Blood Pressure - High Dextrose 1,000 mls @ 100 mls/hr 11/06/24 07:40 Dextrose 5% 1,000 Ml IVPB PRN PRN Hypoglycemia Protocol Insulin Aspart 2 - 5 units 11/18/24 08:00 11/26/24 09:13 Insulin Aspart (*Bkc) 100 Units/Ml SUB-Q Not Given TIDWM [facility] Protocol Morphine Sulfate 2 mg 11/08/24 07:39 Morphine Sulfate (*Crx) 2 Mg/Ml Inj IV PUSH Q2H PRN Moderate Pain (4-6) Morphine Sulfate 4 mg 11/08/24 07:39 11/21/24 06:47 Morphine Sulfate (*Crx) 4 Mg/Ml Inj IV PUSH 4 mg Q2H PRN Administration Pain Rated 7-10 Naloxone HCl 0.1 mg 11/06/24 00:01 Naloxone Hcl 0.4 Mg/Ml Vial IV PUSH Q2M PRN Opiate Reversal Ondansetron HCl 4 mg 11/06/24 00:01 11/21/24 06:47 Ondansetron Inj 4 Mg/2 Ml Vial IV PUSH 4 mg Q4H PRN Administration Nausea And Vomiting Pantoprazole Sodium 40 mg 11/06/24 09:00 11/26/24 09:13 Pantoprazole Sodium Iv 40 Mg Vial IV PUSH 40 mg Q12HR SOURAV Administration Phenyleph/Shark Oil/[place] Butter 1 supp 11/19/24 18:18 11/19/24 18:33 Phenylephrine Hcl/[place] Butter Supp.Rect (*Bkc) RECTAL 1 supp Q12HR PRN Administration Hemorrhoids Thiamine HCl 100 mg 11/06/24 09:00 11/26/24 09:13 Thiamine Hcl 200 Mg/2 Ml Vial IV PUSH 100 mg QAM SOURAV Administration Radiology Results: ITS Impressions Head CT 11/05/24 20:50 IMPRESSION: 1. Moderate nonspecific cerebral white matter disease, which likely represents chronic small vessel ischemic disease. 2. 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 Upper GI Series 11/08/24 12:17 IMPRESSION: 1. Slow gastric emptying likely related to postoperative ileus. No extraluminal leakage of contrast. Chest/Abdomen/Pelvis CT 11/10/24 10:38 IMPRESSION: 1. Small volume of ascites with mass effect on right lateral aspect of the liver, likely an exudate. 2. Small pleural effusions. 3. Wall thickening of the descending and sigmoid colon and rectum, consistent with colitis versus interstitial edema. Catheter Placement CT 11/12/24 14:47 IMPRESSION: 1. Successful CT-guided right upper quadrant abdominal abscess drainage yielding yellow fluid. Abdomen X-Ray 11/14/24 11:13 IMPRESSION: Nonspecific, nonobstructive bowel gas pattern. Supportive devices unchanged in position. Bilateral pleural effusions. If clinical suspicion persists, CT examination of the abdomen and pelvis (with intravenous contrast) is suggested for further evaluation. Renal Ultrasound 11/19/24 16:17 IMPRESSION: No hydronephrosis or renal calculi. Findings suggesting medical renal disease. Free fluid within the pelvis. Abdomen/Pelvis CT 11/20/24 14:44 IMPRESSION: Large bilateral pleural effusions, with bilateral lower lobe atelectasis. Infection in the lower lobes is not excluded. Single loop of dilated jejunum, likely representing localized ileus. Early/partial obstruction could appear similarly. Colonic wall thickening, as can be seen with colitis. Moderate ascites. Diffuse edema of the subcutaneous fat and mesenteric fat. Venous Doppler Study 11/22/24 10:28 IMPRESSION: 1. No deep venous thrombosis in either lower limb. Renal Scan Nuclear Medicine 11/23/24 14:21 IMPRESSION: 1. Symmetric kidney function. 2. Delayed activity clearance from both kidneys with continually rising activity curves extending over the 30 minutes of observation and without associated hydronephrosis consistent with nonspecific, nonobstructive nephropathy. Chest X-Ray 11/25/24 21:47 IMPRESSION: Redemonstration of large bilateral pleural effusions with mild pulmonary vascular congestion. No focal infiltrate. Labs Labs: Laboratory Results - last 24 hr 11/25/24 11/25/24 11/25/24 11:40 17:00 21:03 WBC RBC Hgb Hct MCV MCH MCHC RDW Plt Count MPV Immature Gran % (Auto) Neut % (Auto) Lymph % (Auto) [place] % (Auto) Eos % (Auto) Baso % (Auto) Lymph # (Auto) [place] # (Auto) Eos # (Auto) Baso # (Auto) Abs Immat Gran (auto) Absolute Neuts (auto) Absolute Nucleated RBC Nucleated RBC % Sodium Potassium Chloride Carbon Dioxide Anion Gap BUN Creatinine Estim Creat Clear Calc Estimated GFR Glucose POC Capillary Glucose 118 H 134 H 119 H Calcium Phosphorus Magnesium Total Bilirubin AST ALT Alkaline Phosphatase Total Protein Albumin 11/26/24 11/26/24 08:16 08:47 WBC 18.9 H RBC 3.25 L Hgb 9.3 L Hct 29.4 L MCV 90.5 MCH 28.6 MCHC 31.6 L RDW 15.0 H Plt Count 877 H MPV 9.3 Immature Gran % (Auto) 4.2 H Neut % (Auto) 83.4 H Lymph % (Auto) 6.9 L [place] % (Auto) 4.5 Eos % (Auto) 0.2 Baso % (Auto) 0.8 Lymph # (Auto) 1.31 [place] # (Auto) 0.9 H Eos # (Auto) 0.0 Baso # (Auto) 0.2 H Abs Immat Gran (auto) 0.80 H Absolute Neuts (auto) 15.8 H Absolute Nucleated RBC 0.000 Nucleated RBC % 0.0 Sodium 142 Potassium 3.4 Chloride 117 H Carbon Dioxide 23 Anion Gap 2 L BUN 33 H Creatinine 3.50 H Estim Creat Clear Calc 17 Estimated GFR 17 L Glucose 91 POC Capillary Glucose 88 Calcium 8.1 L Phosphorus 4.7 H Magnesium 2.2 Total Bilirubin 0.4 AST 30 ALT 11 Alkaline Phosphatase 108 Total Protein 6.0 L Albumin 2.6 L Quality VTE Prophylaxis VTE prophylaxis: mechanical ordered and pharmacologic ordered Hospitalist MIPS Advance Care Plan I have confirmed that the patient's Advanced Care Plan is present, code status is documented, or surrogate decision maker is listed in patient medical record.: Yes Medication Reconciliation I have utilized all available resources to obtain, update and review the patients current medications (includes all prescriptions, OTC, herbals, cannabis, and nutritional supplements).: Yes
[2024-11-26 11:25] LABS: Glucose Point of Care 102 mg/dl (65-105)
--- NOTE | 2024-11-26 14:17 | PCSTNOTE ---
Please refer to the Modified Barium Swallow Evaluation in the EMR. The pt was seen for a repeat MBS (3rd MBS) to determine ability to return to oral intake; pt is currently NPO after failing 2 previous MBS evaluations. The pt was seated for a lateral view and presented with thin liquids, pudding consistency, & crumbled cracker (due to edentulous) in controlled amounts and thin liquids in uncontrolled amounts via cup sips & straw drinking. The oral stages were within functional limits; however, pt stated he requires his dentures to eat solids so larger pieces of solids were not tested. During the pharyngeal stage, reduced tongue base retraction was noted as evidenced by varying degrees of vallecular residue. The residue was mostly cleared when pt dry swallowed (after a verbal cue) but occasionally required another dry swallow. Only a trace/flash laryngeal penetration occurred which was with the first thin liquid trial. It is felt that with 1:1 meal instruction to double swallow after each bite the pt would tolerate beginning oral intake. Impression: Moderate dysphagia due to weak tongue base retraction Recommendation: puree diet with thin liquids; 1:1 meal supervision, verbal cues to double dry swallow after each bite; no straw drinking due to increased amounts of residual is noted.
--- NOTE | 2024-11-26 14:45 | P.PNNP_ITS ---
Progress Note: A&P Assessment and Plan (1) DEBI (acute kidney injury): Code(s): N17.9 - Acute kidney failure, unspecified Status: Acute Assessment and Plan: * initial insult on admission was due to sepsis hypotension, fluid shifts and hypovolemia * resolved with supportive therapy * second episode noted on 11/18...creatinine increased from 0.9 -> 2.2 -> 3.0mg/dl * etiology of second episode is not entirely clear... * suspect ATN from prerenal azotemia secondary to third spacing given recent abdominal surgery compounded by his diminished oral intake * recent CT scan noted (ascites, pleural effusions, anasarca...) * evaluation to date noted: * renal ultrasound without obstruction but with medical renal disease * urine electrolytes prerenal * UA not indicative of infection * urine eosinophils negative * mild proteinuria noted (~ 1300mg proteinuria) * CPK low * renal scan suggestive of ATN * trial of IV albumin + IV bumex for diuresis (given CXR findings) * follow trend of repeat labs and UOP (2) Perforated gastric ulcer: Qualifiers: Gastric ulcer chronicity: acute Qualified Code(s): K25.1 - Acute gastric ulcer with perforation Code(s): K25.5 - Chronic or unspecified gastric ulcer with perforation Status: Acute Assessment and Plan: * s/p exploratory laparotomy, extensive lysis of adhesions, intra-abdominal washout, repair of perforated gastric ulcer with omental patch * on antibiotics * local wound care * Surgery following (3) Hypertension: Code(s): I10 - Essential (primary) hypertension Status: Chronic Assessment and Plan: * as noted by recent BP readings * likely an undiagnosed condition * on amlodipine and PRN IV hydralazine * follow trend of hemodynamics (4) COPD (chronic obstructive pulmonary disease): Code(s): J44.9 - Chronic obstructive pulmonary disease, unspecified Status: Acute Assessment and Plan: * not in exacerbation * bronchodilators as needed (5) Severe protein-calorie malnutrition: Code(s): E43 - Unspecified severe protein-calorie malnutrition Status: Acute Assessment and Plan: * on dronabinol 5mg bid * advance diet as tolerated (6) EtOH dependence: Code(s): F10.20 - Alcohol dependence, uncomplicated Status: Acute Assessment and Plan: * known history * continue thiamine and folic acid Will continue to follow. L Subjective Date/time seen: 11/26/24 14:45 Interval history: Follow-up for acute kidney injury/acute renal failure. Unable to see yesterday (11/25/24) due to weather and road conditions; chart reviewed since last seen -- overall, continues to make slow and steady improvement in general; still with elevated WBC but renal function/creatinine continues to improve; recent CXR findings noted but no complaints of shortness of breath but remains on supplemental oxygen. Exam 2 Narrative: General: thin and elderly male in NAD Heart: normal S1 and S2; no rub Lungs: clear anteriorly; decreased at bases Abdomen: mild TTP and distension; decreased bowel sounds Extremities: no cyanosis or clubbing; no edema Skin: warm and intact Objective Data Vital Signs Vital Signs: Vital Signs Temp Pulse Resp BP Pulse Ox O2 Del Method O2 Flow Rate 11/26/24 14:00 62 18 148/62 H 92 11/26/24 09:25 88 20 11/26/24 09:13 80 20 11/26/24 09:13 94 Nasal Cannula 3 11/26/24 04:04 81 156/83 H 11/26/24 00:50 98.4 F 82 20 156/87 H 96 11/25/24 22:00 98.1 F 83 20 170/89 H 98 11/25/24 19:31 97 Non-Rebreather Mask 3 Intake/Output Intake/Output: Intake & Output 11/23/24 11/24/24 11/25/24 11/26/24 23:59 23:59 23:59 23:59 Intake Total 200 340 620 680 Balance 200 340 620 680 Meds/Results Medications: Active Medications Generic Name Dose Route Start Last Admin Trade Name Freq PRN Reason Stop Dose Admin Acetaminophen 650 mg 11/06/24 14:48 11/07/24 19:10 Acetaminophen 650 Mg Suppository RECTAL 650 mg Q4H PRN Administration Mild Pain (1-3) or Fever Acetaminophen 650 mg 11/14/24 15:21 Acetaminophen Elixir 325 Mg/10.15 Ml Udc FEED TUBE Q4H PRN Headache, Fever, Mild Pain Hydrocodone Bitart/Acetaminophen 1 tab 11/08/24 13:37 11/18/24 00:29 Hydrocodone/Acetaminophen (*Crx) 5-325 Mg Tablet FEED TUBE 1 tab Q4H PRN Administration Pain Rated 4-6 Acetylcysteine 200 mg 11/09/24 20:00 11/26/24 09:13 Acetylcysteine 20% Inhal Soln 800 Mg/4 Ml Vial INHALATION 200 mg Q12HRT SOURAV Administration Albuterol 2.5 mg 11/09/24 15:38 11/26/24 09:13 Albuterol Sulfate Neb 2.5 Mg/3 Ml Inh INHALATION 2.5 mg Q12HR PRN Administration Shortness Of Breath Amlodipine Besylate 5 mg 11/11/24 09:00 11/26/24 09:14 Amlodipine Besylate 5 Mg Tablet PO 5 mg DAILY SOURAV Administration Dextrose 12.5 gm 11/06/24 07:40 11/21/24 16:58 Dextrose 50% 25 Gm/50 Ml Syringe IV PUSH 12.5 gm PRN PRN Administration Hypoglycemia Protocol Dronabinol 5 mg 11/17/24 17:00 11/26/24 15:45 Dronabinol (*Crx) 2.5 Mg Capsule PO 5 mg BID SOURAV Administration Enoxaparin Sodium 30 mg 11/18/24 09:00 11/26/24 09:14 Enoxaparin 30 Mg/0.3 Ml Syringe SUB-Q 30 mg DAILY SOURAV Administration Folic Acid 1 mg 11/06/24 09:00 11/26/24 15:46 Folic Acid 1 Mg/0.2 Ml Inj IV PUSH 1 mg QAM SOURAV Administration Glucagon 1 mg 11/06/24 07:40 Glucagon For Inj 1 Mg Vial IM PRN PRN Hypoglycemia Protocol Glucose 15 gm 11/06/24 07:40 Glucose Oral Gel 15 Gm Of Glucse In 37.5 Gm Tube PO PRN PRN Hypoglycemia Protocol Hydralazine HCl 10 mg 11/10/24 09:16 11/26/24 00:30 Hydralazine Hcl 20 Mg/Ml Vial IV PUSH 10 mg Q4HR PRN Administration Blood Pressure - High Dextrose 1,000 mls @ 100 mls/hr 11/06/24 07:40 Dextrose 5% 1,000 Ml IVPB PRN PRN Hypoglycemia Protocol Insulin Aspart 2 - 5 units 11/18/24 08:00 11/26/24 15:42 Insulin Aspart (*Bkc) 100 Units/Ml SUB-Q Not Given TIDWM SOURAV Protocol Miscellaneous Information 0 each 11/26/24 00:01 [place] & Morphine Orders Will Auto Discontinue 11/27. Please Renew Orders If These Are To Co XX 12/26/24 00:00 [facility] Miscellaneous Information 1 each 11/26/24 00:01 Dronabinol (*Crx) 2.5 Mg Capsule Will Be Stopped If Not Renewed XX 12/26/24 00:00 [facility] Morphine Sulfate 2 mg 11/08/24 07:39 Morphine Sulfate (*Crx) 2 Mg/Ml Inj IV PUSH Q2H PRN Moderate Pain (4-6) Morphine Sulfate 4 mg 11/08/24 07:39 11/21/24 06:47 Morphine Sulfate (*Crx) 4 Mg/Ml Inj IV PUSH 4 mg Q2H PRN Administration Pain Rated 7-10 Naloxone HCl 0.1 mg 11/06/24 00:01 Naloxone Hcl 0.4 Mg/Ml Vial IV PUSH Q2M PRN Opiate Reversal Ondansetron HCl 4 mg 11/06/24 00:01 11/21/24 06:47 Ondansetron Inj 4 Mg/2 Ml Vial IV PUSH 4 mg Q4H PRN Administration Nausea And Vomiting Pantoprazole Sodium 40 mg 11/06/24 09:00 11/26/24 09:13 Pantoprazole Sodium Iv 40 Mg Vial IV PUSH 40 mg Q12HR SOURAV Administration Phenyleph/Shark Oil/[place] Butter 1 supp 11/19/24 18:18 11/19/24 18:33 Phenylephrine Hcl/[place] Butter Supp.Rect (*Bkc) RECTAL 1 supp Q12HR PRN Administration Hemorrhoids Thiamine HCl 100 mg 11/06/24 09:00 11/26/24 09:13 Thiamine Hcl 200 Mg/2 Ml Vial IV PUSH 100 mg QAM SOURAV Administration Radiology Results: ITS Impressions Head CT 11/05/24 20:50 IMPRESSION: 1. Moderate nonspecific cerebral white matter disease, which likely represents chronic small vessel ischemic disease. 2. 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 Upper GI Series 11/08/24 12:17 IMPRESSION: 1. Slow gastric emptying likely related to postoperative ileus. No extraluminal leakage of contrast. Chest/Abdomen/Pelvis CT 11/10/24 10:38 IMPRESSION: 1. Small volume of ascites with mass effect on right lateral aspect of the liver, likely an exudate. 2. Small pleural effusions. 3. Wall thickening of the descending and sigmoid colon and rectum, consistent with colitis versus interstitial edema. Catheter Placement CT 11/12/24 14:47 IMPRESSION: 1. Successful CT-guided right upper quadrant abdominal abscess drainage yielding yellow fluid. Abdomen X-Ray 11/14/24 11:13 IMPRESSION: Nonspecific, nonobstructive bowel gas pattern. Supportive devices unchanged in position. Bilateral pleural effusions. If clinical suspicion persists, CT examination of the abdomen and pelvis (with intravenous contrast) is suggested for further evaluation. Renal Ultrasound 11/19/24 16:17 IMPRESSION: No hydronephrosis or renal calculi. Findings suggesting medical renal disease. Free fluid within the pelvis. Abdomen/Pelvis CT 11/20/24 14:44 IMPRESSION: Large bilateral pleural effusions, with bilateral lower lobe atelectasis. Infection in the lower lobes is not excluded. Single loop of dilated jejunum, likely representing localized ileus. Early/partial obstruction could appear similarly. Colonic wall thickening, as can be seen with colitis. Moderate ascites. Diffuse edema of the subcutaneous fat and mesenteric fat. Venous Doppler Study 11/22/24 10:28 IMPRESSION: 1. No deep venous thrombosis in either lower limb. Renal Scan Nuclear Medicine 11/23/24 14:21 IMPRESSION: 1. Symmetric kidney function. 2. Delayed activity clearance from both kidneys with continually rising activity curves extending over the 30 minutes of observation and without associated hydronephrosis consistent with nonspecific, nonobstructive nephropathy. Chest X-Ray 11/25/24 21:47 IMPRESSION: Redemonstration of large bilateral pleural effusions with mild pulmonary vascular congestion. No focal infiltrate. Modified Barium Swallow 11/26/24 10:39 IMPRESSION: 1. Trace laryngeal penetration. 2. Please refer to the speech therapy report for recommendations. Labs Labs: Laboratory Tests 11/26/24 08:47 11/26/24 08:47 Calcium 8.1 L Phosphorus 4.7 H Magnesium 2.2 Total Bilirubin 0.4 AST 30 ALT 11 Alkaline Phosphatase 108 Total Protein 6.0 L Albumin 2.6 L Microbiology 11/23/24 19:02 Clean Catch Midstream Urine Culture - Final
--- NOTE | 2024-11-26 15:38 | PC.NURSE ---
NO CHANGES FROM THIS rn PREVIOUS ASSESMENT. nO C/O PAIN AT THIS TIME.
[2024-11-26] MEDS: FOLIC ACID 1 MG/0.2 ML INJ IV PUSH (15:46)
[2024-11-26 16:34] LABS: Glucose Point of Care 122 mg/dl (65-105)
[2024-11-26 20:20] LABS: Glucose Point of Care 90 mg/dl (65-105)
[2024-11-27] VITALS (11 sets, daily range): BP systolic 144–159; BP diastolic 78–89; PULSE 78–89; RESP 19–20; TEMP 37–37.9; O2SAT 92–100
[2024-11-27] MEDS: hydrALAZINE HCL 20 MG/ML VIAL 10 MG IV PUSH (00:13)
[2024-11-27] MEDS: ONDANSETRON INJ 4 MG/2 ML VIAL IV PUSH (04:04)
[2024-11-27 07:02] LABS: Basophils Absolute Auto 0.1 K/mm3 (0.0-0.1); Basophils Percent Auto 0.4 % (0.2-1.2); Eosinophils Percent Auto 0.2 % (0-4.4); Hematocrit 26.7 % (42.0-52.0); Hemoglobin 8.7 g/dL (14.0-18.0); Immature Granulocyte Percent A 4.8 % (0-0.5); Lymphocytes Absolute Auto 0.75 K/mm3 (0.9-3.2); Lymphocytes Percent Auto 4.5 % (18.3-44.2); Mean Corpuscular HGB Conc 32.6 g/dl (32-36); Mean Corpuscular Hemoglobin 28.9 pg (26-34); Mean Corpuscular Volume 88.7 fl (80-100); Mean Platelet Volume 9.3 fl (7.4-10.4); Monocytes Absolute Auto 0.6 K/mm3 (0.1-0.6); Monocytes Percent Auto 3.5 % (2.6-8.5); Neutrophils Absolute Auto 14.4 K/mm3 (1.3-6.7); Neutrophils Percent Auto 86.6 % (45.5-73.1); Platelet Count Result 715 k/mm3 (150-375); Red Blood Count 3.01 M/mm3 (4.6-6.20); Red Cell Distribution Width 15.2 % (11.5-14.5); White Blood Count 16.6 K/mm3 (4.5-10.0)
[2024-11-27 07:13] LABS: Alanine Aminotransferase 12 U/L (6-50); Albumin Level 2.6 g/dL (3.5-5.1); Alkaline Phosphatase 118 U/L (38-126); Anion Gap 6 mmol/L (4-12); Aspartate Amino Transferase 28 U/L (17-59); Bilirubin,Total 0.4 mg/dL (0.2-1.3); Blood Urea Nitrogen 32 mg/dL (9-20); Calcium 7.6 mg/dL (8.4-10.2); Carbon Dioxide 24 mmol/L (22-30); Chloride 115 mmol/L (98-107); Estimated CRCL calculation 14 ml/min; Estimated Glomerular Filt Rate 17; Glucose 92 mg/dL (65-110); Magnesium 2.1 mg/dL (1.6-2.3); Phosphorus 4.5 mg/dL (2.5-4.5); Potassium 3.1 mmol/L (3.4-5.0); Sodium 145 mmol/L (137-145)
[2024-11-27 08:14] LABS: Glucose Point of Care 101 mg/dl (65-105)
[2024-11-27] MEDS: amLODIPine BESYLATE 5 MG TABLET PO (08:52)
[2024-11-27] MEDS: FOLIC ACID 1 MG/0.2 ML INJ IV PUSH (08:53)
[2024-11-27] MEDS: THIAMINE HCL 200 MG/2 ML VIAL 100 MG IV PUSH (08:53)
[2024-11-27] MEDS: ENOXAPARIN 30 MG/0.3 ML SYRINGE SUB-Q (08:53)
[2024-11-27] MEDS: droNABinol (*CRX) 2.5 MG CAPSULE 5 MG PO ×2 (08:53→17:14)
[2024-11-27] MEDS: PANTOPRAZOLE SODIUM IV 40 MG VIAL IV PUSH ×2 (08:53→21:02)
[2024-11-27 09:24] LABS: Iron < 10 ug/dL (49-181)
[2024-11-27] MEDS: ALBUTEROL SULFATE NEB 2.5 MG/3 ML INH INHALATION ×2 (09:41→20:32)
[2024-11-27] MEDS: ACETYLCYSTEINE 20% INHAL SOLN 800 MG/4 ML VIAL 200 MG INHALATION ×2 (09:42→20:32)
[2024-11-27 09:43] LABS: Percent Iron Saturation < 6 % (20-50)
--- NOTE | 2024-11-27 11:52 | P.PNNP_ITS ---
Progress Note: A&P Assessment and Plan (1) DEBI (acute kidney injury): Code(s): N17.9 - Acute kidney failure, unspecified Status: Acute Assessment and Plan: * initial insult on admission was due to sepsis hypotension, fluid shifts and hypovolemia * resolved with supportive therapy * second episode noted on 11/18...creatinine increased from 0.9 -> 2.2 -> 3.0mg/dl * etiology of second episode is not entirely clear... * suspect ATN from prerenal azotemia secondary to third spacing given recent abdominal surgery compounded by his diminished oral intake * recent CT scan noted (ascites, pleural effusions, anasarca...) * evaluation to date noted: * renal ultrasound without obstruction but with medical renal disease * urine electrolytes prerenal * UA not indicative of infection * urine eosinophils negative * mild proteinuria noted (~ 1300mg proteinuria) * CPK low * renal scan suggestive of ATN * consider low dose diuresis given imaging demonstrating anasarca (CXR and CT scan) * follow trend of repeat labs and UOP (2) Perforated gastric ulcer: Qualifiers: Gastric ulcer chronicity: acute Qualified Code(s): K25.1 - Acute gastric ulcer with perforation Code(s): K25.5 - Chronic or unspecified gastric ulcer with perforation Status: Acute Assessment and Plan: * s/p exploratory laparotomy, extensive lysis of adhesions, intra-abdominal washout, repair of perforated gastric ulcer with omental patch * on antibiotics * local wound care * Surgery following (3) Hypertension: Code(s): I10 - Essential (primary) hypertension Status: Chronic Assessment and Plan: * as noted by recent BP readings * likely an undiagnosed condition * on amlodipine and PRN IV hydralazine * follow trend of hemodynamics (4) COPD (chronic obstructive pulmonary disease): Code(s): J44.9 - Chronic obstructive pulmonary disease, unspecified Status: Acute Assessment and Plan: * not in exacerbation * bronchodilators as needed (5) Severe protein-calorie malnutrition: Code(s): E43 - Unspecified severe protein-calorie malnutrition Status: Acute Assessment and Plan: * on dronabinol 5mg bid * advance diet as tolerated (6) EtOH dependence: Code(s): F10.20 - Alcohol dependence, uncomplicated Status: Acute Assessment and Plan: * known history * continue thiamine and folic acid Will continue to follow. L Subjective Date/time seen: 11/27/24 11:52 Interval history: Follow-up for acute kidney injury/acute renal failure. No new issues or problems to report at this time; oral intake seems to fluctuate per nursing; renal function/creatinine up a bit from yesterday (due to IV albumin + IV bumex?); no other acute issues/events overnight or earlier this morning; feels okay. Exam 2 Narrative: General: thin and elderly male in NAD Heart: normal S1 and S2; no rub Lungs: clear anteriorly; decreased at bases Abdomen: mild TTP and distension; decreased bowel sounds Extremities: no cyanosis or clubbing; no edema Skin: no rash Objective Data Vital Signs Vital Signs: Vital Signs Temp Pulse Resp BP Pulse Ox O2 Del Method O2 Flow Rate 11/27/24 11:00 100.2 F H 78 20 145/83 H 100 11/27/24 09:48 93 Nasal Cannula 2 11/27/24 09:42 86 20 11/27/24 08:51 88 159/89 H 92 11/27/24 08:00 92 Nasal Cannula 2 11/27/24 06:00 98.6 F 89 20 154/85 H 93 11/27/24 00:45 88 159/79 H 11/26/24 23:45 83 166/85 H 11/26/24 21:58 99.1 F 91 12 173/89 H 93 11/26/24 21:34 84 20 11/26/24 21:26 96 Nasal Cannula 3 11/26/24 21:21 83 20 11/26/24 20:35 93 Nasal Cannula 2 11/26/24 18:11 98.5 F Intake/Output Intake/Output: Intake & Output 11/24/24 11/25/24 11/26/24 11/27/24 23:59 23:59 23:59 23:59 Intake Total 340 620 680 195 Balance 340 620 680 195 Meds/Results Medications: Active Medications Generic Name Dose Route Start Last Admin Trade Name Freq PRN Reason Stop Dose Admin Acetaminophen 650 mg 11/06/24 14:48 11/07/24 19:10 Acetaminophen 650 Mg Suppository RECTAL 650 mg Q4H PRN Administration Mild Pain (1-3) or Fever Acetaminophen 650 mg 11/14/24 15:21 Acetaminophen Elixir 325 Mg/10.15 Ml Udc FEED TUBE Q4H PRN Headache, Fever, Mild Pain Acetylcysteine 200 mg 11/09/24 20:00 11/27/24 09:42 Acetylcysteine 20% Inhal Soln 800 Mg/4 Ml Vial INHALATION 200 mg Q12HRT SOURAV Administration Albuterol 2.5 mg 11/09/24 15:38 11/27/24 09:41 Albuterol Sulfate Neb 2.5 Mg/3 Ml Inh INHALATION 2.5 mg Q12HR PRN Administration Shortness Of Breath Amlodipine Besylate 5 mg 11/11/24 09:00 11/27/24 08:52 Amlodipine Besylate 5 Mg Tablet PO 5 mg DAILY SOURAV Administration Dextrose 12.5 gm 11/06/24 07:40 11/21/24 16:58 Dextrose 50% 25 Gm/50 Ml Syringe IV PUSH 12.5 gm PRN PRN Administration Hypoglycemia Protocol Dronabinol 5 mg 11/17/24 17:00 11/27/24 08:53 Dronabinol (*Crx) 2.5 Mg Capsule PO 5 mg BID SOURAV Administration Enoxaparin Sodium 30 mg 11/18/24 09:00 11/27/24 08:53 Enoxaparin 30 Mg/0.3 Ml Syringe SUB-Q 30 mg DAILY SOURAV Administration Folic Acid 1 mg 11/06/24 09:00 11/27/24 08:53 Folic Acid 1 Mg/0.2 Ml Inj IV PUSH 1 mg QAM SOURAV Administration Glucagon 1 mg 11/06/24 07:40 Glucagon For Inj 1 Mg Vial IM PRN PRN Hypoglycemia Protocol Glucose 15 gm 11/06/24 07:40 Glucose Oral Gel 15 Gm Of Glucse In 37.5 Gm Tube PO PRN PRN Hypoglycemia Protocol Hydralazine HCl 10 mg 11/10/24 09:16 11/27/24 00:13 Hydralazine Hcl 20 Mg/Ml Vial IV PUSH 10 mg Q4HR PRN Administration Blood Pressure - High Dextrose 1,000 mls @ 100 mls/hr 11/06/24 07:40 Dextrose 5% 1,000 Ml IVPB PRN PRN Hypoglycemia Protocol Insulin Aspart 2 - 5 units 11/18/24 08:00 11/27/24 12:36 Insulin Aspart (*Bkc) 100 Units/Ml SUB-Q 2 units TIDWM SOURAV Administration Protocol Miscellaneous Information 0 each 01/06/25 00:01 [place] & Morphine Orders Will Auto Discontinue 11/27. Please Renew Orders If These Are To Co XX 12/26/24 00:00 [facility] Miscellaneous Information 1 each 11/26/24 00:01 Dronabinol (*Crx) 2.5 Mg Capsule Will Be Stopped If Not Renewed XX 12/26/24 00:00 [facility] Naloxone HCl 0.1 mg 11/06/24 00:01 Naloxone Hcl 0.4 Mg/Ml Vial IV PUSH Q2M PRN Opiate Reversal Ondansetron HCl 4 mg 11/06/24 00:01 11/27/24 04:04 Ondansetron Inj 4 Mg/2 Ml Vial IV PUSH 4 mg Q4H PRN Administration Nausea And Vomiting Pantoprazole Sodium 40 mg 11/06/24 09:00 11/27/24 08:53 Pantoprazole Sodium Iv 40 Mg Vial IV PUSH 40 mg Q12HR SOURAV Administration Phenyleph/Shark Oil/[place] Butter 1 supp 11/19/24 18:18 11/19/24 18:33 Phenylephrine Hcl/[place] Butter Supp.Rect (*Bkc) RECTAL 1 supp Q12HR PRN Administration Hemorrhoids Thiamine HCl 100 mg 11/06/24 09:00 11/27/24 08:53 Thiamine Hcl 200 Mg/2 Ml Vial IV PUSH 100 mg QAM SOURAV Administration Radiology Results: ITS Impressions Head CT 11/05/24 20:50 IMPRESSION: 1. Moderate nonspecific cerebral white matter disease, which likely represents chronic small vessel ischemic disease. 2. 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 Upper GI Series 11/08/24 12:17 IMPRESSION: 1. Slow gastric emptying likely related to postoperative ileus. No extraluminal leakage of contrast. Chest/Abdomen/Pelvis CT 11/10/24 10:38 IMPRESSION: 1. Small volume of ascites with mass effect on right lateral aspect of the liver, likely an exudate. 2. Small pleural effusions. 3. Wall thickening of the descending and sigmoid colon and rectum, consistent with colitis versus interstitial edema. Catheter Placement CT 11/12/24 14:47 IMPRESSION: 1. Successful CT-guided right upper quadrant abdominal abscess drainage yielding yellow fluid. Abdomen X-Ray 11/14/24 11:13 IMPRESSION: Nonspecific, nonobstructive bowel gas pattern. Supportive devices unchanged in position. Bilateral pleural effusions. If clinical suspicion persists, CT examination of the abdomen and pelvis (with intravenous contrast) is suggested for further evaluation. Renal Ultrasound 11/19/24 16:17 IMPRESSION: No hydronephrosis or renal calculi. Findings suggesting medical renal disease. Free fluid within the pelvis. Abdomen/Pelvis CT 11/20/24 14:44 IMPRESSION: Large bilateral pleural effusions, with bilateral lower lobe atelectasis. Infection in the lower lobes is not excluded. Single loop of dilated jejunum, likely representing localized ileus. Early/partial obstruction could appear similarly. Colonic wall thickening, as can be seen with colitis. Moderate ascites. Diffuse edema of the subcutaneous fat and mesenteric fat. Venous Doppler Study 11/22/24 10:28 IMPRESSION: 1. No deep venous thrombosis in either lower limb. Renal Scan Nuclear Medicine 11/23/24 14:21 IMPRESSION: 1. Symmetric kidney function. 2. Delayed activity clearance from both kidneys with continually rising activity curves extending over the 30 minutes of observation and without associated hydronephrosis consistent with nonspecific, nonobstructive nephropathy. Modified Barium Swallow 11/26/24 10:39 IMPRESSION: 1. Trace laryngeal penetration. 2. Please refer to the speech therapy report for recommendations. Chest X-Ray 11/27/24 13:15 Impression: 1: Moderate edema with bilateral pleural effusions. Labs Labs: Laboratory Tests 11/27/24 06:39 11/27/24 06:39 Calcium 7.6 L Phosphorus 4.5 Magnesium 2.1 Iron < 10 L TIBC 155 L % Saturation < 6 L Ferritin 283.00 H Total Bilirubin 0.4 AST 28 ALT 12 Alkaline Phosphatase 118 Total Protein 6.0 L Albumin 2.6 L Microbiology 11/21/24 13:16 Blood Blood Culture - Final 11/21/24 13:25 Blood Blood Culture - Final 11/23/24 19:02 Clean Catch Midstream Urine Culture - Final Quality s/p IV albumin and IV diuretics
[2024-11-27 12:34] LABS: Glucose Point of Care 211 mg/dl (65-105)
[2024-11-27] MEDS: INSULIN ASPART (*BKC) 100 UNITS/ML SUB-Q (12:36)
--- NOTE | 2024-11-27 13:05 | P.PNIM_ITS ---
Progress Note: A&P Assessment and Plan (1) Metabolic acidosis: Code(s): E87.20 - Acidosis, unspecified Status: Acute Assessment and Plan: Gradually improving, will continue current treatment and monitor. (2) DEBI (acute kidney injury): Code(s): N17.9 - Acute kidney failure, unspecified Status: Acute Assessment and Plan: Creatinine trending up Kidney ultrasound medical disease Cr 3.55, baseline normal Nephrology following (3) Perforated gastric ulcer: Qualifiers: Gastric ulcer chronicity: acute Qualified Code(s): K25.1 - Acute gastric ulcer with perforation Code(s): K25.5 - Chronic or unspecified gastric ulcer with perforation Status: Acute Assessment and Plan: Continue with Protonix and monitor hgb (4) COPD (chronic obstructive pulmonary disease): Code(s): J44.9 - Chronic obstructive pulmonary disease, unspecified Status: Acute Assessment and Plan: Stable on current medications. Will continue current treatment. (5) Sepsis: Code(s): A41.9 - Sepsis, unspecified organism Status: Acute Assessment and Plan: Continue antibiotics and monitor cultures (6) Pneumonia: Code(s): J18.9 - Pneumonia, unspecified organism Status: Acute Assessment and Plan: Completed antibiotics gradually getting better (7) Acute hypoxic respiratory failure: Code(s): J96.01 - Acute respiratory failure with hypoxia Status: Acute Assessment and Plan: Better and improving ddimer pending (8) Sepsis associated hypotension: Code(s): A41.9 - Sepsis, unspecified organism; I95.9 - Hypotension, unspecified Status: Acute Assessment and Plan: Continue IV antibiotics and monitor cultures (9) EtOH dependence: Code(s): F10.20 - Alcohol dependence, uncomplicated Status: Acute Assessment and Plan: Counselling given Plan Code status full DVT prophylaxis on Sq Lovenox PT/OT following Subjective Date/time seen: 11/27/24 13:05 Interval history: Patient comfortable at bedside Review of Systems Review of Systems: Pt with a dry throat not talking loudly with ng tube in situ on tube feeds looks weak and tired ROS unobtainable: Yes unobtainable due to endotracheal tube, unobtainable due to medical condition and unobtainable due to mental status Exam Narrative: General: More alert toady Lungs/Chest: Trachea central Coarse BS B/L, No crackles or wheezing. Cardiac: RRR. Normal S1 S2. No murmurs Abdomen: Decreased but present bowel sounds. HARLEY drain in place. Soft. Tender to palpation as patient grimaces on exam. Extremities: No clubbing, cyanosis or edema. Warm : Shen in place Neurologic: Patient is able to move all 4 extremities spontaneously. Objective Data Vital Signs Vital Signs: Vital Signs - 24 hr 11/26/24 14:00 11/26/24 18:11 11/26/24 20:35 Temperature 98.5 F Pulse Rate 62 Respiratory Rate 18 Blood Pressure 148/62 H Pulse Oximetry 92 93 Oxygen Delivery Nasal Cannula Oxygen Flow Rate 2 11/26/24 21:21 11/26/24 21:26 11/26/24 21:34 Temperature Pulse Rate 83 84 Respiratory Rate 20 20 Blood Pressure Pulse Oximetry 96 Oxygen Delivery Nasal Cannula Oxygen Flow Rate 3 11/26/24 21:58 11/26/24 23:45 11/27/24 00:45 Temperature 99.1 F Pulse Rate 91 83 88 Respiratory Rate 12 Blood Pressure 173/89 H 166/85 H 159/79 H Pulse Oximetry 93 Oxygen Delivery Oxygen Flow Rate 11/27/24 06:00 11/27/24 08:00 11/27/24 08:51 Temperature 98.6 F Pulse Rate 89 88 Respiratory Rate 20 Blood Pressure 154/85 H 159/89 H Pulse Oximetry 93 92 92 Oxygen Delivery Nasal Cannula Oxygen Flow Rate 2 11/27/24 09:42 11/27/24 09:48 Temperature Pulse Rate 86 Respiratory Rate 20 Blood Pressure Pulse Oximetry 93 Oxygen Delivery Nasal Cannula Oxygen Flow Rate 2 Intake/Output Intake/Output: Intake & Output 11/24/24 11/25/24 11/26/24 11/27/24 23:59 23:59 23:59 23:59 Intake Total 340 620 680 195 Balance 340 620 680 195 Meds/Results Medications: Active Medications Generic Name Dose Route Start Last Admin Trade Name Freq PRN Reason Stop Dose Admin Acetaminophen 650 mg 11/06/24 14:48 11/07/24 19:10 Acetaminophen 650 Mg Suppository RECTAL 650 mg Q4H PRN Administration Mild Pain (1-3) or Fever Acetaminophen 650 mg 11/14/24 15:21 Acetaminophen Elixir 325 Mg/10.15 Ml Udc FEED TUBE Q4H PRN Headache, Fever, Mild Pain Hydrocodone Bitart/Acetaminophen 1 tab 11/08/24 13:37 11/18/24 00:29 Hydrocodone/Acetaminophen (*Crx) 5-325 Mg Tablet FEED TUBE 1 tab Q4H PRN Administration Pain Rated 4-6 Acetylcysteine 200 mg 11/09/24 20:00 11/27/24 09:42 Acetylcysteine 20% Inhal Soln 800 Mg/4 Ml Vial INHALATION 200 mg Q12HRT SOURAV Administration Albuterol 2.5 mg 11/09/24 15:38 11/27/24 09:41 Albuterol Sulfate Neb 2.5 Mg/3 Ml Inh INHALATION 2.5 mg Q12HR PRN Administration Shortness Of Breath Amlodipine Besylate 5 mg 11/11/24 09:00 11/27/24 08:52 Amlodipine Besylate 5 Mg Tablet PO 5 mg DAILY SOURAV Administration Dextrose 12.5 gm 11/06/24 07:40 11/21/24 16:58 Dextrose 50% 25 Gm/50 Ml Syringe IV PUSH 12.5 gm PRN PRN Administration Hypoglycemia Protocol Dronabinol 5 mg 11/17/24 17:00 11/27/24 08:53 Dronabinol (*Crx) 2.5 Mg Capsule PO 5 mg BID SOURAV Administration Enoxaparin Sodium 30 mg 11/18/24 09:00 11/27/24 08:53 Enoxaparin 30 Mg/0.3 Ml Syringe SUB-Q 30 mg DAILY SOURAV Administration Folic Acid 1 mg 11/06/24 09:00 11/27/24 08:53 Folic Acid 1 Mg/0.2 Ml Inj IV PUSH 1 mg QAM SOURAV Administration Glucagon 1 mg 11/06/24 07:40 Glucagon For Inj 1 Mg Vial IM PRN PRN Hypoglycemia Protocol Glucose 15 gm 11/06/24 07:40 Glucose Oral Gel 15 Gm Of Glucse In 37.5 Gm Tube PO PRN PRN Hypoglycemia Protocol Hydralazine HCl 10 mg 11/10/24 09:16 11/27/24 00:13 Hydralazine Hcl 20 Mg/Ml Vial IV PUSH 10 mg Q4HR PRN Administration Blood Pressure - High Dextrose 1,000 mls @ 100 mls/hr 11/06/24 07:40 Dextrose 5% 1,000 Ml IVPB PRN PRN Hypoglycemia Protocol Insulin Aspart 2 - 5 units 11/18/24 08:00 11/27/24 12:36 Insulin Aspart (*Bkc) 100 Units/Ml SUB-Q 2 units TIDWM SOURAV Administration Protocol Miscellaneous Information 0 each 11/26/24 00:01 [place] & Morphine Orders Will Auto Discontinue 11/27. Please Renew Orders If These Are To Co XX 12/26/24 00:00 [facility]IFY [facility] Miscellaneous Information 1 each 11/26/24 00:01 Dronabinol (*Crx) 2.5 Mg Capsule Will Be Stopped If Not Renewed XX 12/26/24 00:00 [facility] Morphine Sulfate 2 mg 11/08/24 07:39 Morphine Sulfate (*Crx) 2 Mg/Ml Inj IV PUSH Q2H PRN Moderate Pain (4-6) Morphine Sulfate 4 mg 11/08/24 07:39 11/21/24 06:47 Morphine Sulfate (*Crx) 4 Mg/Ml Inj IV PUSH 4 mg Q2H PRN Administration Pain Rated 7-10 Naloxone HCl 0.1 mg 11/06/24 00:01 Naloxone Hcl 0.4 Mg/Ml Vial IV PUSH Q2M PRN Opiate Reversal Ondansetron HCl 4 mg 11/06/24 00:01 11/27/24 04:04 Ondansetron Inj 4 Mg/2 Ml Vial IV PUSH 4 mg Q4H PRN Administration Nausea And Vomiting Pantoprazole Sodium 40 mg 11/06/24 09:00 11/27/24 08:53 Pantoprazole Sodium Iv 40 Mg Vial IV PUSH 40 mg Q12HR SOURAV Administration Phenyleph/Shark Oil/[place] Butter 1 supp 11/19/24 18:18 11/19/24 18:33 Phenylephrine Hcl/[place] Butter Supp.Rect (*Bkc) RECTAL 1 supp Q12HR PRN Administration Hemorrhoids Thiamine HCl 100 mg 11/06/24 09:00 11/27/24 08:53 Thiamine Hcl 200 Mg/2 Ml Vial IV PUSH 100 mg QAM SOURAV Administration Radiology Results: ITS Impressions Head CT 11/05/24 20:50 IMPRESSION: 1. Moderate nonspecific cerebral white matter disease, which likely represents chronic small vessel ischemic disease. 2. 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 Upper GI Series 11/08/24 12:17 IMPRESSION: 1. Slow gastric emptying likely related to postoperative ileus. No extraluminal leakage of contrast. Chest/Abdomen/Pelvis CT 11/10/24 10:38 IMPRESSION: 1. Small volume of ascites with mass effect on right lateral aspect of the liver, likely an exudate. 2. Small pleural effusions. 3. Wall thickening of the descending and sigmoid colon and rectum, consistent with colitis versus interstitial edema. Catheter Placement CT 11/12/24 14:47 IMPRESSION: 1. Successful CT-guided right upper quadrant abdominal abscess drainage yielding yellow fluid. Abdomen X-Ray 11/14/24 11:13 IMPRESSION: Nonspecific, nonobstructive bowel gas pattern. Supportive devices unchanged in position. Bilateral pleural effusions. If clinical suspicion persists, CT examination of the abdomen and pelvis (with intravenous contrast) is suggested for further evaluation. Renal Ultrasound 11/19/24 16:17 IMPRESSION: No hydronephrosis or renal calculi. Findings suggesting medical renal disease. Free fluid within the pelvis. Abdomen/Pelvis CT 11/20/24 14:44 IMPRESSION: Large bilateral pleural effusions, with bilateral lower lobe atelectasis. Infection in the lower lobes is not excluded. Single loop of dilated jejunum, likely representing localized ileus. Early/partial obstruction could appear similarly. Colonic wall thickening, as can be seen with colitis. Moderate ascites. Diffuse edema of the subcutaneous fat and mesenteric fat. Venous Doppler Study 11/22/24 10:28 IMPRESSION: 1. No deep venous thrombosis in either lower limb. Renal Scan Nuclear Medicine 11/23/24 14:21 IMPRESSION: 1. Symmetric kidney function. 2. Delayed activity clearance from both kidneys with continually rising activity curves extending over the 30 minutes of observation and without associated hydronephrosis consistent with nonspecific, nonobstructive nephropathy. Chest X-Ray 11/25/24 21:47 IMPRESSION: Redemonstration of large bilateral pleural effusions with mild pulmonary vascular congestion. No focal infiltrate. Modified Barium Swallow 11/26/24 10:39 IMPRESSION: 1. Trace laryngeal penetration. 2. Please refer to the speech therapy report for recommendations. Labs Labs: Laboratory Results - last 24 hr 11/26/24 11/26/24 11/27/24 16:21 19:55 06:39 WBC 16.6 H RBC 3.01 L Hgb 8.7 L Hct 26.7 L MCV 88.7 MCH 28.9 MCHC 32.6 RDW 15.2 H Plt Count 715 H MPV 9.3 Immature Gran % (Auto) 4.8 H Neut % (Auto) 86.6 H Lymph % (Auto) 4.5 L [place] % (Auto) 3.5 Eos % (Auto) 0.2 Baso % (Auto) 0.4 Lymph # (Auto) 0.75 L [place] # (Auto) 0.6 Eos # (Auto) 0.0 Baso # (Auto) 0.1 Abs Immat Gran (auto) 0.80 H Absolute Neuts (auto) 14.4 H Absolute Nucleated RBC 0.000 Nucleated RBC % 0.0 Sodium 145 Potassium 3.1 L Chloride 115 H Carbon Dioxide 24 Anion Gap 6 BUN 32 H Creatinine 3.55 H Estim Creat Clear Calc 14 Estimated GFR 17 L Glucose 92 POC Capillary Glucose 122 H 90 Calcium 7.6 L Phosphorus 4.5 Magnesium 2.1 Iron < 10 L TIBC 155 L % Saturation < 6 L Ferritin 283.00 H Total Bilirubin 0.4 AST 28 ALT 12 Alkaline Phosphatase 118 Total Protein 6.0 L Albumin 2.6 L 11/27/24 11/27/24 08:11 11:36 WBC RBC Hgb Hct MCV MCH MCHC RDW Plt Count MPV Immature Gran % (Auto) Neut % (Auto) Lymph % (Auto) [place] % (Auto) Eos % (Auto) Baso % (Auto) Lymph # (Auto) [place] # (Auto) Eos # (Auto) Baso # (Auto) Abs Immat Gran (auto) Absolute Neuts (auto) Absolute Nucleated RBC Nucleated RBC % Sodium Potassium Chloride Carbon Dioxide Anion Gap BUN Creatinine Estim Creat Clear Calc Estimated GFR Glucose POC Capillary Glucose 101 211 H Calcium Phosphorus Magnesium Iron TIBC % Saturation Ferritin Total Bilirubin AST ALT Alkaline Phosphatase Total Protein Albumin Quality VTE Prophylaxis VTE prophylaxis: mechanical ordered and pharmacologic ordered
--- NOTE | 2024-11-27 14:56 | P.PNGS_ITS ---
Progress Note: A&P Assessment and Plan (1) Perforated gastric ulcer: Qualifiers: Gastric ulcer chronicity: acute Qualified Code(s): K25.1 - Acute gastric ulcer with perforation Code(s): K25.5 - Chronic or unspecified gastric ulcer with perforation Status: Acute Assessment and Plan: * Still with leukocytosis but overall trending down. This does not appear to be surgically related. Tolerating a diet. * He is surgically stable for discharge when medically stable and placement determined. Will sign off at this time. Call with any surgical questions/concerns. Follow-up with Dr. Rodriguez 2 weeks after discharge. Plan I have discussed the patient's case and plan of care with Dr. Rodriguez. Subjective Subjective Date/Time Seen: 11/27/24 14:56 Patient reports: no new complaints, tolerating a regular diet, flatus, bowel movement and afebrile Exam Const: General: comfortable and awake GI: Inspection: distended and incision (dry and healing well, no erythema or drainage) GI Palp: Yes Soft to palpation, No Tenderness to palpation present (GI), No Guarding due to palpation present (GI) and No Rebound tenderness present Auscultation: normal bowel sounds Objective Data Vital Signs Vital Signs: Vital Signs - 24 hr 11/26/24 18:11 11/26/24 20:35 11/26/24 21:21 Temperature 98.5 F Pulse Rate 83 Respiratory Rate 20 Blood Pressure Pulse Oximetry 93 Oxygen Delivery Nasal Cannula Oxygen Flow Rate 2 11/26/24 21:26 11/26/24 21:34 11/26/24 21:58 Temperature 99.1 F Pulse Rate 84 91 Respiratory Rate 20 12 Blood Pressure 173/89 H Pulse Oximetry 96 93 Oxygen Delivery Nasal Cannula Oxygen Flow Rate 3 11/26/24 23:45 11/27/24 00:45 11/27/24 06:00 Temperature 98.6 F Pulse Rate 83 88 89 Respiratory Rate 20 Blood Pressure 166/85 H 159/79 H 154/85 H Pulse Oximetry 93 Oxygen Delivery Oxygen Flow Rate 11/27/24 08:00 11/27/24 08:51 11/27/24 09:42 Temperature Pulse Rate 88 86 Respiratory Rate 20 Blood Pressure 159/89 H Pulse Oximetry 92 92 Oxygen Delivery Nasal Cannula Oxygen Flow Rate 2 11/27/24 09:48 Temperature Pulse Rate Respiratory Rate Blood Pressure Pulse Oximetry 93 Oxygen Delivery Nasal Cannula Oxygen Flow Rate 2 Intake/Output Intake/Output: Intake & Output 11/24/24 11/25/24 11/26/24 11/27/24 23:59 23:59 23:59 23:59 Intake Total 340 620 680 195 Balance 340 620 680 195 Meds/Results Medications: Active Medications Generic Name Dose Route Start Last Admin Trade Name Freq PRN Reason Stop Dose Admin Acetaminophen 650 mg 11/06/24 14:48 11/07/24 19:10 Acetaminophen 650 Mg Suppository RECTAL 650 mg Q4H PRN Administration Mild Pain (1-3) or Fever Acetaminophen 650 mg 11/14/24 15:21 Acetaminophen Elixir 325 Mg/10.15 Ml Udc FEED TUBE Q4H PRN Headache, Fever, Mild Pain Acetylcysteine 200 mg 11/09/24 20:00 11/27/24 09:42 Acetylcysteine 20% Inhal Soln 800 Mg/4 Ml Vial INHALATION 200 mg Q12HRT SOURAV Administration Albuterol 2.5 mg 11/09/24 15:38 11/27/24 09:41 Albuterol Sulfate Neb 2.5 Mg/3 Ml Inh INHALATION 2.5 mg Q12HR PRN Administration Shortness Of Breath Amlodipine Besylate 5 mg 11/11/24 09:00 11/27/24 08:52 Amlodipine Besylate 5 Mg Tablet PO 5 mg DAILY SOURAV Administration Dextrose 12.5 gm 11/06/24 07:40 11/21/24 16:58 Dextrose 50% 25 Gm/50 Ml Syringe IV PUSH 12.5 gm PRN PRN Administration Hypoglycemia Protocol Dronabinol 5 mg 11/17/24 17:00 11/27/24 08:53 Dronabinol (*Crx) 2.5 Mg Capsule PO 5 mg BID SOURAV Administration Enoxaparin Sodium 30 mg 11/18/24 09:00 11/27/24 08:53 Enoxaparin 30 Mg/0.3 Ml Syringe SUB-Q 30 mg DAILY SOURAV Administration Folic Acid 1 mg 11/06/24 09:00 11/27/24 08:53 Folic Acid 1 Mg/0.2 Ml Inj IV PUSH 1 mg QAM SOURAV Administration Glucagon 1 mg 11/06/24 07:40 Glucagon For Inj 1 Mg Vial IM PRN PRN Hypoglycemia Protocol Glucose 15 gm 11/06/24 07:40 Glucose Oral Gel 15 Gm Of Glucse In 37.5 Gm Tube PO PRN PRN Hypoglycemia Protocol Hydralazine HCl 10 mg 11/10/24 09:16 11/27/24 00:13 Hydralazine Hcl 20 Mg/Ml Vial IV PUSH 10 mg Q4HR PRN Administration Blood Pressure - High Dextrose 1,000 mls @ 100 mls/hr 11/06/24 07:40 Dextrose 5% 1,000 Ml IVPB PRN PRN Hypoglycemia Protocol Insulin Aspart 2 - 5 units 11/18/24 08:00 11/27/24 12:36 Insulin Aspart (*Bkc) 100 Units/Ml SUB-Q 2 units TIDWM SOURAV Administration Protocol Miscellaneous Information 0 each 11/26/24 00:01 [place] & Morphine Orders Will Auto Discontinue 11/27. Please Renew Orders If These Are To Co XX 12/26/24 00:00 [facility] Miscellaneous Information 1 each 11/26/24 00:01 Dronabinol (*Crx) 2.5 Mg Capsule Will Be Stopped If Not Renewed XX 12/26/24 00:00 [facility] Naloxone HCl 0.1 mg 11/06/24 00:01 Naloxone Hcl 0.4 Mg/Ml Vial IV PUSH Q2M PRN Opiate Reversal Ondansetron HCl 4 mg 11/06/24 00:01 11/27/24 04:04 Ondansetron Inj 4 Mg/2 Ml Vial IV PUSH 4 mg Q4H PRN Administration Nausea And Vomiting Pantoprazole Sodium 40 mg 11/06/24 09:00 11/27/24 08:53 Pantoprazole Sodium Iv 40 Mg Vial IV PUSH 40 mg Q12HR SOURAV Administration Phenyleph/Shark Oil/[place] Butter 1 supp 11/19/24 18:18 11/19/24 18:33 Phenylephrine Hcl/[place] Butter Supp.Rect (*Bkc) RECTAL 1 supp Q12HR PRN Administration Hemorrhoids Thiamine HCl 100 mg 11/06/24 09:00 11/27/24 08:53 Thiamine Hcl 200 Mg/2 Ml Vial IV PUSH 100 mg QAM SOURAV Administration Radiology Results: ITS Impressions Head CT 11/05/24 20:50 IMPRESSION: 1. Moderate nonspecific cerebral white matter disease, which likely represents chronic small vessel ischemic disease. 2. 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 Upper GI Series 11/08/24 12:17 IMPRESSION: 1. Slow gastric emptying likely related to postoperative ileus. No extraluminal leakage of contrast. Chest/Abdomen/Pelvis CT 11/10/24 10:38 IMPRESSION: 1. Small volume of ascites with mass effect on right lateral aspect of the liver, likely an exudate. 2. Small pleural effusions. 3. Wall thickening of the descending and sigmoid colon and rectum, consistent with colitis versus interstitial edema. Catheter Placement CT 11/12/24 14:47 IMPRESSION: 1. Successful CT-guided right upper quadrant abdominal abscess drainage yielding yellow fluid. Abdomen X-Ray 11/14/24 11:13 IMPRESSION: Nonspecific, nonobstructive bowel gas pattern. Supportive devices unchanged in position. Bilateral pleural effusions. If clinical suspicion persists, CT examination of the abdomen and pelvis (with intravenous contrast) is suggested for further evaluation. Renal Ultrasound 11/19/24 16:17 IMPRESSION: No hydronephrosis or renal calculi. Findings suggesting medical renal disease. Free fluid within the pelvis. Abdomen/Pelvis CT 11/20/24 14:44 IMPRESSION: Large bilateral pleural effusions, with bilateral lower lobe atelectasis. Infection in the lower lobes is not excluded. Single loop of dilated jejunum, likely representing localized ileus. Early/partial obstruction could appear similarly. Colonic wall thickening, as can be seen with colitis. Moderate ascites. Diffuse edema of the subcutaneous fat and mesenteric fat. Venous Doppler Study 11/22/24 10:28 IMPRESSION: 1. No deep venous thrombosis in either lower limb. Renal Scan Nuclear Medicine 11/23/24 14:21 IMPRESSION: 1. Symmetric kidney function. 2. Delayed activity clearance from both kidneys with continually rising activity curves extending over the 30 minutes of observation and without associated hydronephrosis consistent with nonspecific, nonobstructive nephropathy. Modified Barium Swallow 11/26/24 10:39 IMPRESSION: 1. Trace laryngeal penetration. 2. Please refer to the speech therapy report for recommendations. Chest X-Ray 11/27/24 13:15 Impression: 1: Moderate edema with bilateral pleural effusions. Labs Labs: Laboratory Results - last 24 hr 11/26/24 11/26/24 11/27/24 16:21 19:55 06:39 WBC 16.6 H RBC 3.01 L Hgb 8.7 L Hct 26.7 L MCV 88.7 MCH 28.9 MCHC 32.6 RDW 15.2 H Plt Count 715 H MPV 9.3 Immature Gran % (Auto) 4.8 H Neut % (Auto) 86.6 H Lymph % (Auto) 4.5 L [place] % (Auto) 3.5 Eos % (Auto) 0.2 Baso % (Auto) 0.4 Lymph # (Auto) 0.75 L [place] # (Auto) 0.6 Eos # (Auto) 0.0 Baso # (Auto) 0.1 Abs Immat Gran (auto) 0.80 H Absolute Neuts (auto) 14.4 H Absolute Nucleated RBC 0.000 Nucleated RBC % 0.0 Sodium 145 Potassium 3.1 L Chloride 115 H Carbon Dioxide 24 Anion Gap 6 BUN 32 H Creatinine 3.55 H Estim Creat Clear Calc 14 Estimated GFR 17 L Glucose 92 POC Capillary Glucose 122 H 90 Calcium 7.6 L Phosphorus 4.5 Magnesium 2.1 Iron < 10 L TIBC 155 L % Saturation < 6 L Ferritin 283.00 H Total Bilirubin 0.4 AST 28 ALT 12 Alkaline Phosphatase 118 Total Protein 6.0 L Albumin 2.6 L 11/27/24 11/27/24 08:11 11:36 WBC RBC Hgb Hct MCV MCH MCHC RDW Plt Count MPV Immature Gran % (Auto) Neut % (Auto) Lymph % (Auto) [place] % (Auto) Eos % (Auto) Baso % (Auto) Lymph # (Auto) [place] # (Auto) Eos # (Auto) Baso # (Auto) Abs Immat Gran (auto) Absolute Neuts (auto) Absolute Nucleated RBC Nucleated RBC % Sodium Potassium Chloride Carbon Dioxide Anion Gap BUN Creatinine Estim Creat Clear Calc Estimated GFR Glucose POC Capillary Glucose 101 211 H Calcium Phosphorus Magnesium Iron TIBC % Saturation Ferritin Total Bilirubin AST ALT Alkaline Phosphatase Total Protein Albumin
[2024-11-27 16:47] LABS: Glucose Point of Care 84 mg/dl (65-105)
[2024-11-27 20:21] LABS: Glucose Point of Care 165 mg/dl (65-105)
[2024-11-27] MEDS: SODIUM CHLORIDE 0.9% INJ 10 ML (21:02)
[2024-11-28] VITALS (11 sets, daily range): BP systolic 148–164; BP diastolic 81–89; PULSE 72–79; RESP 14–24; TEMP 37.4–37.7; O2SAT 90–99
[2024-11-28 06:56] LABS: Basophils Absolute Auto 0.1 K/mm3 (0.0-0.1); Basophils Percent Auto 0.8 % (0.2-1.2); Hematocrit 27.1 % (42.0-52.0); Hemoglobin 8.3 g/dL (14.0-18.0); Immature Granulocyte Absolute 0.61 K/mm3 (0.00-0.031); Immature Granulocyte Percent A 4.7 % (0-0.5); Lymphocytes Absolute Auto 0.96 K/mm3 (0.9-3.2); Lymphocytes Percent Auto 7.4 % (18.3-44.2); Mean Corpuscular HGB Conc 30.6 g/dl (32-36); Mean Corpuscular Hemoglobin 28.3 pg (26-34); Mean Corpuscular Volume 92.5 fl (80-100); Mean Platelet Volume 9.6 fl (7.4-10.4); Monocytes Absolute Auto 0.7 K/mm3 (0.1-0.6); Monocytes Percent Auto 5.4 % (2.6-8.5); Neutrophils Absolute Auto 10.7 K/mm3 (1.3-6.7); Neutrophils Percent Auto 81.7 % (45.5-73.1); Platelet Count Result 646 k/mm3 (150-375); Red Blood Count 2.93 M/mm3 (4.6-6.20); Red Cell Distribution Width 15.2 % (11.5-14.5); White Blood Count 13.1 K/mm3 (4.5-10.0)
[2024-11-28 07:08] LABS: Alanine Aminotransferase 13 U/L (6-50); Albumin Level 2.5 g/dL (3.5-5.1); Alkaline Phosphatase 110 U/L (38-126); Anion Gap 6 mmol/L (4-12); Aspartate Amino Transferase 27 U/L (17-59); Bilirubin,Total 0.3 mg/dL (0.2-1.3); Blood Urea Nitrogen 30 mg/dL (9-20); Calcium 7.6 mg/dL (8.4-10.2); Carbon Dioxide 26 mmol/L (22-30); Chloride 112 mmol/L (98-107); Estimated CRCL calculation 13 ml/min; Estimated Glomerular Filt Rate 18; Glucose 86 mg/dL (65-110); Phosphorus 4.5 mg/dL (2.5-4.5); Potassium 3.2 mmol/L (3.4-5.0); Sodium 144 mmol/L (137-145)
[2024-11-28 08:23] LABS: Glucose Point of Care 83 mg/dl (65-105)
[2024-11-28] MEDS: ACETYLCYSTEINE 20% INHAL SOLN 800 MG/4 ML VIAL 200 MG INHALATION ×2 (08:25→21:25)
[2024-11-28] MEDS: ALBUTEROL SULFATE NEB 2.5 MG/3 ML INH INHALATION ×2 (08:25→21:26)
[2024-11-28] MEDS: amLODIPine BESYLATE 5 MG TABLET PO (08:46)
[2024-11-28] MEDS: ENOXAPARIN 30 MG/0.3 ML SYRINGE SUB-Q (08:47)
[2024-11-28] MEDS: THIAMINE HCL 200 MG/2 ML VIAL 100 MG IV PUSH (08:47)
[2024-11-28] MEDS: FOLIC ACID 1 MG/0.2 ML INJ IV PUSH (08:47)
[2024-11-28] MEDS: PANTOPRAZOLE SODIUM IV 40 MG VIAL IV PUSH ×2 (08:47→20:42)
[2024-11-28] MEDS: droNABinol (*CRX) 2.5 MG CAPSULE 5 MG PO ×2 (08:47→17:24)
[2024-11-28 11:40] LABS: Glucose Point of Care 107 mg/dl (65-105)
--- NOTE | 2024-11-28 14:01 | P.PNNP_ITS ---
Progress Note: A&P Assessment and Plan (1) DEBI (acute kidney injury): Code(s): N17.9 - Acute kidney failure, unspecified Status: Acute Assessment and Plan: * initial insult on admission was due to sepsis hypotension, fluid shifts and hypovolemia * resolved with supportive therapy * second episode noted on 11/18...creatinine increased from 0.9 -> 2.2 -> 3.0mg/dl * etiology of second episode is not entirely clear... * suspect ATN from prerenal azotemia secondary to third spacing given recent abdominal surgery compounded by his diminished oral intake * recent CT scan noted (ascites, pleural effusions, anasarca...) * evaluation to date noted: * renal ultrasound without obstruction but with medical renal disease * urine electrolytes prerenal * UA not indicative of infection * urine eosinophils negative * mild proteinuria noted (~ 1300mg proteinuria) * CPK low * renal scan suggestive of ATN * on low dose diuresis (lasix 20mg IV bid) given imaging demonstrating anasarca (CXR and CT scan) * follow trend of repeat labs and UOP (2) Perforated gastric ulcer: Qualifiers: Gastric ulcer chronicity: acute Qualified Code(s): K25.1 - Acute gastric ulcer with perforation Code(s): K25.5 - Chronic or unspecified gastric ulcer with perforation Status: Acute Assessment and Plan: * s/p exploratory laparotomy, extensive lysis of adhesions, intra-abdominal washout, repair of perforated gastric ulcer with omental patch * completed course of antibiotics * local wound care * Surgery following (3) Hypertension: Code(s): I10 - Essential (primary) hypertension Status: Chronic Assessment and Plan: * as noted by recent BP readings * likely an undiagnosed condition * on amlodipine and PRN IV hydralazine * follow trend of hemodynamics (4) COPD (chronic obstructive pulmonary disease): Code(s): J44.9 - Chronic obstructive pulmonary disease, unspecified Status: Acute Assessment and Plan: * not in exacerbation * bronchodilators as needed (5) Severe protein-calorie malnutrition: Code(s): E43 - Unspecified severe protein-calorie malnutrition Status: Acute Assessment and Plan: * on dronabinol 5mg bid * advance diet as tolerated (6) EtOH dependence: Code(s): F10.20 - Alcohol dependence, uncomplicated Status: Acute Assessment and Plan: * known history * continue thiamine and folic acid Will continue to follow. L Subjective Date/time seen: 11/28/24 14:01 Interval history: Follow-up for acute kidney injury/acute renal failure. Started on gentle IV diuretics therapy given evidence of fluid/volume overload by recent imaging (CXR and CT scan); renal function/creatinine appears to be tolerating this intervention; no apparent distress noted; oral intake seems to be improving to some degree. Exam 2 Narrative: General: thin and elderly male in NAD Heart: normal S1 and S2; no rub Lungs: clear anteriorly; decreased at bases Abdomen: mild TTP and distension; decreased bowel sounds Extremities: no cyanosis or clubbing; no edema Skin: no nodules Objective Data Vital Signs Vital Signs: Vital Signs Temp Pulse Resp BP Pulse Ox O2 Del Method O2 Flow Rate 11/28/24 14:00 99.9 F H 75 24 H 149/87 H 93 11/28/24 08:50 92 Nasal Cannula 3 11/28/24 08:37 76 20 11/28/24 08:27 72 20 11/28/24 08:27 92 2 11/28/24 05:26 99.4 F 74 14 148/81 H 90 11/28/24 04:32 94 Nasal Cannula 3 11/28/24 04:30 90 Nasal Cannula 2 11/27/24 20:48 86 20 11/27/24 20:36 92 Nasal Cannula 2 11/27/24 20:35 85 20 11/27/24 20:35 99.5 F 84 19 144/78 H 94 11/27/24 20:00 92 Nasal Cannula 2 Intake/Output Intake/Output: Intake & Output 11/25/24 11/26/24 11/27/24 11/28/24 23:59 23:59 23:59 23:59 Intake Total 805 818 8210 1205 Balance 964 358 3521 1205 Meds/Results Medications: Active Medications Generic Name Dose Route Start Last Admin Trade Name Freq PRN Reason Stop Dose Admin Acetaminophen 650 mg 11/06/24 14:48 11/07/24 19:10 Acetaminophen 650 Mg Suppository RECTAL 650 mg Q4H PRN Administration Mild Pain (1-3) or Fever Acetaminophen 650 mg 11/14/24 15:21 Acetaminophen Elixir 325 Mg/10.15 Ml Udc FEED TUBE Q4H PRN Headache, Fever, Mild Pain Acetylcysteine 200 mg 11/09/24 20:00 11/28/24 08:25 Acetylcysteine 20% Inhal Soln 800 Mg/4 Ml Vial INHALATION 200 mg Q12HRT SOURAV Administration Albuterol 2.5 mg 11/09/24 15:38 11/28/24 08:25 Albuterol Sulfate Neb 2.5 Mg/3 Ml Inh INHALATION 2.5 mg Q12HR PRN Administration Shortness Of Breath Amlodipine Besylate 5 mg 11/11/24 09:00 11/28/24 08:46 Amlodipine Besylate 5 Mg Tablet PO 5 mg DAILY SOURAV Administration Dextrose 12.5 gm 11/06/24 07:40 11/21/24 16:58 Dextrose 50% 25 Gm/50 Ml Syringe IV PUSH 12.5 gm PRN PRN Administration Hypoglycemia Protocol Dronabinol 5 mg 11/17/24 17:00 11/28/24 17:24 Dronabinol (*Crx) 2.5 Mg Capsule PO 5 mg BID SOURAV Administration Enoxaparin Sodium 30 mg 11/29/24 09:00 Enoxaparin 30 Mg/0.3 Ml Syringe SUB-Q DAILY SOURAV Folic Acid 1 mg 11/06/24 09:00 11/28/24 08:47 Folic Acid 1 Mg/0.2 Ml Inj IV PUSH 1 mg QAM SOURAV Administration Furosemide 20 mg 11/28/24 17:00 11/28/24 17:24 Furosemide Inj 40 Mg/4 Ml Vial IV PUSH 20 mg BID SOURAV Administration Glucagon 1 mg 11/06/24 07:40 Glucagon For Inj 1 Mg Vial IM PRN PRN Hypoglycemia Protocol Glucose 15 gm 11/06/24 07:40 Glucose Oral Gel 15 Gm Of Glucse In 37.5 Gm Tube PO PRN PRN Hypoglycemia Protocol Hydralazine HCl 10 mg 11/10/24 09:16 11/27/24 00:13 Hydralazine Hcl 20 Mg/Ml Vial IV PUSH 10 mg Q4HR PRN Administration Blood Pressure - High Dextrose 1,000 mls @ 100 mls/hr 11/06/24 07:40 Dextrose 5% 1,000 Ml IVPB PRN PRN Hypoglycemia Protocol Insulin Aspart 2 - 5 units 11/18/24 08:00 11/28/24 17:22 Insulin Aspart (*Bkc) 100 Units/Ml SUB-Q Not Given TIDWM SOURAV Protocol Naloxone HCl 0.1 mg 11/06/24 00:01 Naloxone Hcl 0.4 Mg/Ml Vial IV PUSH Q2M PRN Opiate Reversal Ondansetron HCl 4 mg 11/06/24 00:01 11/27/24 04:04 Ondansetron Inj 4 Mg/2 Ml Vial IV PUSH 4 mg Q4H PRN Administration Nausea And Vomiting Pantoprazole Sodium 40 mg 11/06/24 09:00 11/28/24 08:47 Pantoprazole Sodium Iv 40 Mg Vial IV PUSH 40 mg Q12HR SOURAV Administration Phenyleph/Shark Oil/[place] Butter 1 supp 11/19/24 18:18 11/19/24 18:33 Phenylephrine Hcl/[place] Butter Supp.Rect (*Bkc) RECTAL 1 supp Q12HR PRN Administration Hemorrhoids Thiamine HCl 100 mg 11/06/24 09:00 11/28/24 08:47 Thiamine Hcl 200 Mg/2 Ml Vial IV PUSH 100 mg QAM SOURAV Administration Radiology Results: ITS Impressions Head CT 11/05/24 20:50 IMPRESSION: 1. Moderate nonspecific cerebral white matter disease, which likely represents chronic small vessel ischemic disease. 2. 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 Upper GI Series 11/08/24 12:17 IMPRESSION: 1. Slow gastric emptying likely related to postoperative ileus. No extraluminal leakage of contrast. Chest/Abdomen/Pelvis CT 11/10/24 10:38 IMPRESSION: 1. Small volume of ascites with mass effect on right lateral aspect of the liver, likely an exudate. 2. Small pleural effusions. 3. Wall thickening of the descending and sigmoid colon and rectum, consistent with colitis versus interstitial edema. Catheter Placement CT 11/12/24 14:47 IMPRESSION: 1. Successful CT-guided right upper quadrant abdominal abscess drainage yielding yellow fluid. Abdomen X-Ray 11/14/24 11:13 IMPRESSION: Nonspecific, nonobstructive bowel gas pattern. Supportive devices unchanged in position. Bilateral pleural effusions. If clinical suspicion persists, CT examination of the abdomen and pelvis (with intravenous contrast) is suggested for further evaluation. Renal Ultrasound 11/19/24 16:17 IMPRESSION: No hydronephrosis or renal calculi. Findings suggesting medical renal disease. Free fluid within the pelvis. Abdomen/Pelvis CT 11/20/24 14:44 IMPRESSION: Large bilateral pleural effusions, with bilateral lower lobe atelectasis. Infection in the lower lobes is not excluded. Single loop of dilated jejunum, likely representing localized ileus. Early/partial obstruction could appear similarly. Colonic wall thickening, as can be seen with colitis. Moderate ascites. Diffuse edema of the subcutaneous fat and mesenteric fat. Venous Doppler Study 11/22/24 10:28 IMPRESSION: 1. No deep venous thrombosis in either lower limb. Renal Scan Nuclear Medicine 11/23/24 14:21 IMPRESSION: 1. Symmetric kidney function. 2. Delayed activity clearance from both kidneys with continually rising activity curves extending over the 30 minutes of observation and without associated hydronephrosis consistent with nonspecific, nonobstructive nephropathy. Modified Barium Swallow 11/26/24 10:39 IMPRESSION: 1. Trace laryngeal penetration. 2. Please refer to the speech therapy report for recommendations. Chest X-Ray 11/27/24 13:15 Impression: 1: Moderate edema with bilateral pleural effusions. Labs Labs: Laboratory Tests 11/28/24 06:17 11/28/24 06:17 Calcium 7.6 L Phosphorus 4.5 Magnesium 2.0 Total Bilirubin 0.3 AST 27 ALT 13 Alkaline Phosphatase 110 Total Protein 6.0 L Albumin 2.5 L Microbiology 11/21/24 13:16 Blood Blood Culture - Final 11/21/24 13:25 Blood Blood Culture - Final
--- NOTE | 2024-11-28 15:07 | P.PNIM_ITS ---
Progress Note: A&P Assessment and Plan (1) Metabolic acidosis: Code(s): E87.20 - Acidosis, unspecified Status: Acute Assessment and Plan: Gradually improving, will continue current treatment and monitor. (2) DEBI (acute kidney injury): Code(s): N17.9 - Acute kidney failure, unspecified Status: Acute Assessment and Plan: Creatinine trending up Kidney ultrasound medical disease Cr 4.2 to 3.42, baseline normal Nephrology following (3) Perforated gastric ulcer: Qualifiers: Gastric ulcer chronicity: acute Qualified Code(s): K25.1 - Acute gastric ulcer with perforation Code(s): K25.5 - Chronic or unspecified gastric ulcer with perforation Status: Acute Assessment and Plan: Continue with Protonix and monitor hgb (4) COPD (chronic obstructive pulmonary disease): Code(s): J44.9 - Chronic obstructive pulmonary disease, unspecified Status: Acute Assessment and Plan: Stable on current medications. Will continue current treatment. (5) Sepsis: Code(s): A41.9 - Sepsis, unspecified organism Status: Acute Assessment and Plan: Continue antibiotics and monitor cultures (6) Pneumonia: Code(s): J18.9 - Pneumonia, unspecified organism Status: Acute Assessment and Plan: Completed antibiotics gradually getting better (7) Acute hypoxic respiratory failure: Code(s): J96.01 - Acute respiratory failure with hypoxia Status: Acute Assessment and Plan: Better and improving CXR showed pulm edema and pleural effusion continue Lasix 20mg bid and monitor renal function ECHO from june normal function monitor (8) Sepsis associated hypotension: Code(s): A41.9 - Sepsis, unspecified organism; I95.9 - Hypotension, unspecified Status: Acute Assessment and Plan: Continue IV antibiotics and monitor cultures (9) EtOH dependence: Code(s): F10.20 - Alcohol dependence, uncomplicated Status: Acute Assessment and Plan: Counselling given Plan Code status full DVT prophylaxis on Sq Lovenox PT/OT following Subjective Date/time seen: 11/28/24 15:07 Interval history: Patient comfortable at bedside CXR showed Pulm edema and pleural effusion Started on gentle diuretics Review of Systems Review of Systems: Pt with a dry throat not talking loudly with ng tube in situ on tube feeds looks weak and tired ROS unobtainable: Yes unobtainable due to endotracheal tube, unobtainable due to medical condition and unobtainable due to mental status Exam Narrative: General: More alert toady Lungs/Chest: Trachea central Coarse BS B/L, No crackles or wheezing. Cardiac: RRR. Normal S1 S2. No murmurs Abdomen: Decreased but present bowel sounds. HARLEY drain in place. Soft. Tender to palpation as patient grimaces on exam. Extremities: No clubbing, cyanosis or edema. Warm : Shen in place Neurologic: Patient is able to move all 4 extremities spontaneously. Objective Data Vital Signs Vital Signs: Vital Signs - 24 hr 11/27/24 20:00 11/27/24 20:35 11/27/24 20:35 Temperature 99.5 F Pulse Rate 84 85 Respiratory Rate 19 20 Blood Pressure 144/78 H Pulse Oximetry 92 94 Oxygen Delivery Nasal Cannula Oxygen Flow Rate 2 11/27/24 20:36 11/27/24 20:48 11/28/24 04:30 Temperature Pulse Rate 86 Respiratory Rate 20 Blood Pressure Pulse Oximetry 92 90 Oxygen Delivery Nasal Cannula Nasal Cannula Oxygen Flow Rate 2 2 11/28/24 04:32 11/28/24 05:26 11/28/24 08:27 Temperature 99.4 F Pulse Rate 74 Respiratory Rate 14 Blood Pressure 148/81 H Pulse Oximetry 94 90 92 Oxygen Delivery Nasal Cannula Oxygen Flow Rate 3 2 11/28/24 08:27 11/28/24 08:37 11/28/24 08:50 Temperature Pulse Rate 72 76 Respiratory Rate 20 20 Blood Pressure Pulse Oximetry 92 Oxygen Delivery Nasal Cannula Oxygen Flow Rate 3 11/28/24 14:00 Temperature 99.9 F H Pulse Rate 75 Respiratory Rate 24 H Blood Pressure 149/87 H Pulse Oximetry 93 Oxygen Delivery Oxygen Flow Rate Intake/Output Intake/Output: Intake & Output 11/25/24 11/26/24 11/27/24 11/28/24 23:59 23:59 23:59 23:59 Intake Total 608 352 9836 725 Balance 092 336 8477 725 Meds/Results Medications: Active Medications Generic Name Dose Route Start Last Admin Trade Name Freq PRN Reason Stop Dose Admin Acetaminophen 650 mg 11/06/24 14:48 11/07/24 19:10 Acetaminophen 650 Mg Suppository RECTAL 650 mg Q4H PRN Administration Mild Pain (1-3) or Fever Acetaminophen 650 mg 11/14/24 15:21 Acetaminophen Elixir 325 Mg/10.15 Ml Udc FEED TUBE Q4H PRN Headache, Fever, Mild Pain Acetylcysteine 200 mg 11/09/24 20:00 11/28/24 08:25 Acetylcysteine 20% Inhal Soln 800 Mg/4 Ml Vial INHALATION 200 mg Q12HRT SOURAV Administration Albuterol 2.5 mg 11/09/24 15:38 11/28/24 08:25 Albuterol Sulfate Neb 2.5 Mg/3 Ml Inh INHALATION 2.5 mg Q12HR PRN Administration Shortness Of Breath Amlodipine Besylate 5 mg 11/11/24 09:00 11/28/24 08:46 Amlodipine Besylate 5 Mg Tablet PO 5 mg DAILY SOURAV Administration Dextrose 12.5 gm 11/06/24 07:40 11/21/24 16:58 Dextrose 50% 25 Gm/50 Ml Syringe IV PUSH 12.5 gm PRN PRN Administration Hypoglycemia Protocol Dronabinol 5 mg 11/17/24 17:00 11/28/24 08:47 Dronabinol (*Crx) 2.5 Mg Capsule PO 5 mg BID SOURAV Administration Enoxaparin Sodium 30 mg 11/29/24 09:00 Enoxaparin 30 Mg/0.3 Ml Syringe SUB-Q DAILY SOURAV Folic Acid 1 mg 11/06/24 09:00 11/28/24 08:47 Folic Acid 1 Mg/0.2 Ml Inj IV PUSH 1 mg QAM SOURAV Administration Furosemide 20 mg 11/28/24 17:00 Furosemide Inj 40 Mg/4 Ml Vial IV PUSH BID SOURAV Glucagon 1 mg 11/06/24 07:40 Glucagon For Inj 1 Mg Vial IM PRN PRN Hypoglycemia Protocol Glucose 15 gm 11/06/24 07:40 Glucose Oral Gel 15 Gm Of Glucse In 37.5 Gm Tube PO PRN PRN Hypoglycemia Protocol Hydralazine HCl 10 mg 11/10/24 09:16 11/27/24 00:13 Hydralazine Hcl 20 Mg/Ml Vial IV PUSH 10 mg Q4HR PRN Administration Blood Pressure - High Dextrose 1,000 mls @ 100 mls/hr 11/06/24 07:40 Dextrose 5% 1,000 Ml IVPB PRN PRN Hypoglycemia Protocol Insulin Aspart 2 - 5 units 11/18/24 08:00 11/28/24 11:42 Insulin Aspart (*Bkc) 100 Units/Ml SUB-Q Not Given [facility] Protocol Naloxone HCl 0.1 mg 11/06/24 00:01 Naloxone Hcl 0.4 Mg/Ml Vial IV PUSH Q2M PRN Opiate Reversal Ondansetron HCl 4 mg 11/06/24 00:01 11/27/24 04:04 Ondansetron Inj 4 Mg/2 Ml Vial IV PUSH 4 mg Q4H PRN Administration Nausea And Vomiting Pantoprazole Sodium 40 mg 11/06/24 09:00 11/28/24 08:47 Pantoprazole Sodium Iv 40 Mg Vial IV PUSH 40 mg Q12HR SOURAV Administration Phenyleph/Shark Oil/[place] Butter 1 supp 11/19/24 18:18 11/19/24 18:33 Phenylephrine Hcl/[place] Butter Supp.Rect (*Bkc) RECTAL 1 supp Q12HR PRN Administration Hemorrhoids Thiamine HCl 100 mg 11/06/24 09:00 11/28/24 08:47 Thiamine Hcl 200 Mg/2 Ml Vial IV PUSH 100 mg QAM SOURAV Administration Radiology Results: ITS Impressions Head CT 11/05/24 20:50 IMPRESSION: 1. Moderate nonspecific cerebral white matter disease, which likely represents chronic small vessel ischemic disease. 2. 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 Upper GI Series 11/08/24 12:17 IMPRESSION: 1. Slow gastric emptying likely related to postoperative ileus. No extraluminal leakage of contrast. Chest/Abdomen/Pelvis CT 11/10/24 10:38 IMPRESSION: 1. Small volume of ascites with mass effect on right lateral aspect of the liver, likely an exudate. 2. Small pleural effusions. 3. Wall thickening of the descending and sigmoid colon and rectum, consistent with colitis versus interstitial edema. Catheter Placement CT 11/12/24 14:47 IMPRESSION: 1. Successful CT-guided right upper quadrant abdominal abscess drainage yielding yellow fluid. Abdomen X-Ray 11/14/24 11:13 IMPRESSION: Nonspecific, nonobstructive bowel gas pattern. Supportive devices unchanged in position. Bilateral pleural effusions. If clinical suspicion persists, CT examination of the abdomen and pelvis (with intravenous contrast) is suggested for further evaluation. Renal Ultrasound 11/19/24 16:17 IMPRESSION: No hydronephrosis or renal calculi. Findings suggesting medical renal disease. Free fluid within the pelvis. Abdomen/Pelvis CT 11/20/24 14:44 IMPRESSION: Large bilateral pleural effusions, with bilateral lower lobe atelectasis. Infection in the lower lobes is not excluded. Single loop of dilated jejunum, likely representing localized ileus. Early/partial obstruction could appear similarly. Colonic wall thickening, as can be seen with colitis. Moderate ascites. Diffuse edema of the subcutaneous fat and mesenteric fat. Venous Doppler Study 11/22/24 10:28 IMPRESSION: 1. No deep venous thrombosis in either lower limb. Renal Scan Nuclear Medicine 11/23/24 14:21 IMPRESSION: 1. Symmetric kidney function. 2. Delayed activity clearance from both kidneys with continually rising activity curves extending over the 30 minutes of observation and without associated hydronephrosis consistent with nonspecific, nonobstructive nephropathy. Modified Barium Swallow 11/26/24 10:39 IMPRESSION: 1. Trace laryngeal penetration. 2. Please refer to the speech therapy report for recommendations. Chest X-Ray 11/27/24 13:15 Impression: 1: Moderate edema with bilateral pleural effusions. Labs Labs: Laboratory Results - last 24 hr 11/27/24 11/27/24 11/28/24 16:38 19:59 06:17 WBC 13.1 H RBC 2.93 L Hgb 8.3 L Hct 27.1 L MCV 92.5 MCH 28.3 MCHC 30.6 L RDW 15.2 H Plt Count 646 H MPV 9.6 Immature Gran % (Auto) 4.7 H Neut % (Auto) 81.7 H Lymph % (Auto) 7.4 L [place] % (Auto) 5.4 Eos % (Auto) 0.0 Baso % (Auto) 0.8 Lymph # (Auto) 0.96 [place] # (Auto) 0.7 H Eos # (Auto) 0.0 Baso # (Auto) 0.1 Abs Immat Gran (auto) 0.61 H Absolute Neuts (auto) 10.7 H Absolute Nucleated RBC 0.000 Nucleated RBC % 0.0 Sodium 144 Potassium 3.2 L Chloride 112 H Carbon Dioxide 26 Anion Gap 6 BUN 30 H Creatinine 3.42 H Estim Creat Clear Calc 13 Estimated GFR 18 L Glucose 86 POC Capillary Glucose 84 165 H Calcium 7.6 L Phosphorus 4.5 Magnesium 2.0 Total Bilirubin 0.3 AST 27 ALT 13 Alkaline Phosphatase 110 Total Protein 6.0 L Albumin 2.5 L 11/28/24 11/28/24 08:19 11:31 WBC RBC Hgb Hct MCV MCH MCHC RDW Plt Count MPV Immature Gran % (Auto) Neut % (Auto) Lymph % (Auto) [place] % (Auto) Eos % (Auto) Baso % (Auto) Lymph # (Auto) [place] # (Auto) Eos # (Auto) Baso # (Auto) Abs Immat Gran (auto) Absolute Neuts (auto) Absolute Nucleated RBC Nucleated RBC % Sodium Potassium Chloride Carbon Dioxide Anion Gap BUN Creatinine Estim Creat Clear Calc Estimated GFR Glucose POC Capillary Glucose 83 107 H Calcium Phosphorus Magnesium Total Bilirubin AST ALT Alkaline Phosphatase Total Protein Albumin Quality VTE Prophylaxis VTE prophylaxis: mechanical ordered and pharmacologic ordered
[2024-11-28 17:06] LABS: Glucose Point of Care 95 mg/dl (65-105)
[2024-11-28] MEDS: FUROSEMIDE INJ 40 MG/4 ML VIAL 20 MG IV PUSH (17:24)
[2024-11-28 20:08] LABS: Glucose Point of Care 78 mg/dl (65-105)
[2024-11-28 20:33] LABS: Glucose Point of Care 127 mg/dl (65-105)
[2024-11-29] VITALS (11 sets, daily range): BP systolic 157–185; BP diastolic 77–109; PULSE 70–93; RESP 16–20; TEMP 36.8–37.2; O2SAT 91–94
[2024-11-29] MEDS: hydrALAZINE HCL 20 MG/ML VIAL 10 MG IV PUSH ×2 (01:05→05:21)
--- NOTE | 2024-11-29 06:41 | PC.NURSE ---
patient refusing to keep oxygen on this morning. spO2 checked on room air was 92%. patient instructed to put oxygen back on and call nurse if he feels SOB. will round on patient and spot check spo2 more frequently
[2024-11-29] MEDS: ACETYLCYSTEINE 20% INHAL SOLN 800 MG/4 ML VIAL 200 MG INHALATION ×2 (07:05→21:42)
[2024-11-29] MEDS: ALBUTEROL SULFATE NEB 2.5 MG/3 ML INH INHALATION ×2 (07:05→21:42)
[2024-11-29 07:06] LABS: Basophils Absolute Auto 0.1 K/mm3 (0.0-0.1); Basophils Percent Auto 0.7 % (0.2-1.2); Eosinophils Percent Auto 0.1 % (0-4.4); Hematocrit 30.1 % (42.0-52.0); Hemoglobin 9.4 g/dL (14.0-18.0); Immature Granulocyte Absolute 0.61 K/mm3 (0.00-0.031); Immature Granulocyte Percent A 3.8 % (0-0.5); Lymphocytes Absolute Auto 1.04 K/mm3 (0.9-3.2); Lymphocytes Percent Auto 6.6 % (18.3-44.2); Mean Corpuscular HGB Conc 31.2 g/dl (32-36); Mean Corpuscular Hemoglobin 27.8 pg (26-34); Mean Corpuscular Volume 89.1 fl (80-100); Mean Platelet Volume 9.4 fl (7.4-10.4); Monocytes Absolute Auto 0.9 K/mm3 (0.1-0.6); Monocytes Percent Auto 5.9 % (2.6-8.5); Neutrophils Absolute Auto 13.2 K/mm3 (1.3-6.7); Neutrophils Percent Auto 82.9 % (45.5-73.1); Platelet Count Result 649 k/mm3 (150-375); Red Blood Count 3.38 M/mm3 (4.6-6.20); Red Cell Distribution Width 14.8 % (11.5-14.5); White Blood Count 15.9 K/mm3 (4.5-10.0)
[2024-11-29 07:33] LABS: Alanine Aminotransferase 14 U/L (6-50); Albumin Level 2.7 g/dL (3.5-5.1); Alkaline Phosphatase 121 U/L (38-126); Anion Gap 6 mmol/L (4-12); Aspartate Amino Transferase 33 U/L (17-59); Bilirubin,Total 0.4 mg/dL (0.2-1.3); Blood Urea Nitrogen 31 mg/dL (9-20); Calcium 7.6 mg/dL (8.4-10.2); Carbon Dioxide 25 mmol/L (22-30); Chloride 109 mmol/L (98-107); Estimated CRCL calculation 14 ml/min; Estimated Glomerular Filt Rate 20; Glucose 95 mg/dL (65-110); Magnesium 1.9 mg/dL (1.6-2.3); Phosphorus 3.9 mg/dL (2.5-4.5); Potassium 2.8 mmol/L (3.4-5.0); Sodium 140 mmol/L (137-145)
[2024-11-29 08:11] LABS: Glucose Point of Care 91 mg/dl (65-105)
[2024-11-29] MEDS: POTASSIUM CHLORIDE INJ 40 MEQ in SODIUM CHLORIDE 0.9% IV 500 ML 130 MEQ IVPB (08:22)
[2024-11-29] MEDS: FUROSEMIDE INJ 40 MG/4 ML VIAL 20 MG IV PUSH ×2 (08:22→17:06)
[2024-11-29] MEDS: POTASSIUM CHLORIDE 20 MEQ ER TABLET 40 MEQ PO (08:23)
[2024-11-29] MEDS: droNABinol (*CRX) 2.5 MG CAPSULE 5 MG PO ×2 (08:24→17:05)
[2024-11-29] MEDS: amLODIPine BESYLATE 5 MG TABLET PO (08:24)
[2024-11-29] MEDS: FOLIC ACID 1 MG/0.2 ML INJ IV PUSH (08:24)
[2024-11-29] MEDS: THIAMINE HCL 200 MG/2 ML VIAL 100 MG IV PUSH (08:26)
[2024-11-29] MEDS: PANTOPRAZOLE SODIUM IV 40 MG VIAL IV PUSH ×2 (08:27→20:57)
[2024-11-29] MEDS: ENOXAPARIN 30 MG/0.3 ML SYRINGE SUB-Q (08:27)
[2024-11-29] MEDS: PSYLLIUM POWDER PACKET 1 PACKET PO (08:31)
[2024-11-29 11:15] LABS: Toxigenic C. Diff NEGATIVE (NEGATIVE)
[2024-11-29 12:12] LABS: Glucose Point of Care 88 mg/dl (65-105)
--- NOTE | 2024-11-29 12:24 | PM.IMPN ---
Progress Note: A&P Assessment and Plan (1) Metabolic acidosis: Code(s): E87.20 - Acidosis, unspecified Status: Acute Assessment and Plan: Gradually improving, will continue current treatment and monitor. (2) DEBI (acute kidney injury): Code(s): N17.9 - Acute kidney failure, unspecified Status: Acute Assessment and Plan: Creatinine trending up Kidney ultrasound medical disease Cr 4.2 to 3.14, baseline normal Nephrology following (3) Perforated gastric ulcer: Qualifiers: Gastric ulcer chronicity: acute Qualified Code(s): K25.1 - Acute gastric ulcer with perforation Code(s): K25.5 - Chronic or unspecified gastric ulcer with perforation Status: Acute Assessment and Plan: Continue with Protonix and monitor hgb (4) COPD (chronic obstructive pulmonary disease): Code(s): J44.9 - Chronic obstructive pulmonary disease, unspecified Status: Acute Assessment and Plan: Stable on current medications. Will continue current treatment. (5) Sepsis: Code(s): A41.9 - Sepsis, unspecified organism Status: Acute Assessment and Plan: Completed antibiotics (6) Pneumonia: Code(s): J18.9 - Pneumonia, unspecified organism Status: Acute Assessment and Plan: Completed antibiotics pneumonia resolved Repeat CXR showed pulm edema and Pleural effusion now on lasix (7) Acute hypoxic respiratory failure: Code(s): J96.01 - Acute respiratory failure with hypoxia Status: Acute Assessment and Plan: resolved CXR showed pulm edema and pleural effusion continue Lasix 20mg bid and monitor renal function ECHO from june normal function monitor (8) Sepsis associated hypotension: Code(s): A41.9 - Sepsis, unspecified organism; I95.9 - Hypotension, unspecified Status: Acute Assessment and Plan: completed antibiotics (9) EtOH dependence: Code(s): F10.20 - Alcohol dependence, uncomplicated Status: Acute Assessment and Plan: Counselling given Plan Diarrhea Stool studies pending monitor Code status full DVT prophylaxis on Sq Lovenox PT/OT following Subjective Date/time seen: 11/29/24 12:24 Interval history: Patient comfortable at bedside CXR showed Pulm edema and pleural effusion Started on gentle diuretics, now on room air patient still having diarrhea stool studies pending Review of Systems Review of Systems: Pt with a dry throat not talking loudly with ng tube in situ on tube feeds looks weak and tired ROS unobtainable: Yes unobtainable due to endotracheal tube, unobtainable due to medical condition and unobtainable due to mental status Exam Narrative: General: More alert toady Lungs/Chest: Trachea central Coarse BS B/L, No crackles or wheezing. Cardiac: RRR. Normal S1 S2. No murmurs Abdomen: Decreased but present bowel sounds. HARLEY drain in place. Soft. Tender to palpation as patient grimaces on exam. Extremities: No clubbing, cyanosis or edema. Warm : Shen in place Neurologic: Patient is able to move all 4 extremities spontaneously. Objective Data Vital Signs Vital Signs: Vital Signs - 24 hr 11/28/24 14:00 11/28/24 20:00 11/28/24 21:09 Temperature 99.9 F H 99.8 F H Pulse Rate 75 79 Respiratory Rate 24 H 20 Blood Pressure 149/87 H 164/89 H Pulse Oximetry 93 99 99 Oxygen Delivery Nasal Cannula Oxygen Flow Rate 3 11/28/24 21:26 11/28/24 21:36 11/29/24 05:42 Temperature 98.9 F Pulse Rate 75 77 89 Respiratory Rate 20 20 20 Blood Pressure 185/109 H Pulse Oximetry 94 Oxygen Delivery Oxygen Flow Rate 11/29/24 06:42 11/29/24 06:54 11/29/24 07:05 Temperature Pulse Rate 70 Respiratory Rate 16 Blood Pressure 170/96 H Pulse Oximetry 92 93 Oxygen Delivery Room Air Oxygen Flow Rate 11/29/24 07:15 11/29/24 08:04 11/29/24 08:35 Temperature Pulse Rate 74 70 93 Respiratory Rate 18 16 Blood Pressure 157/96 H Pulse Oximetry 92 Oxygen Delivery Nasal Cannula Oxygen Flow Rate 3 Intake/Output Intake/Output: Intake & Output 11/26/24 11/27/24 11/28/24 11/29/24 23:59 23:59 23:59 23:59 Intake Total 055 1475 1205 240 Balance 680 1475 1205 240 Meds/Results Medications: Active Medications Generic Name Dose Route Start Last Admin Trade Name Freq PRN Reason Stop Dose Admin Acetaminophen 650 mg 11/06/24 14:48 11/07/24 19:10 Acetaminophen 650 Mg Suppository RECTAL 650 mg Q4H PRN Administration Mild Pain (1-3) or Fever Acetaminophen 650 mg 11/14/24 15:21 Acetaminophen Elixir 325 Mg/10.15 Ml Udc FEED TUBE Q4H PRN Headache, Fever, Mild Pain Acetylcysteine 200 mg 11/09/24 20:00 11/29/24 07:05 Acetylcysteine 20% Inhal Soln 800 Mg/4 Ml Vial INHALATION 200 mg Q12HRT SOURAV Administration Albuterol 2.5 mg 11/09/24 15:38 11/29/24 07:05 Albuterol Sulfate Neb 2.5 Mg/3 Ml Inh INHALATION 2.5 mg Q12HR PRN Administration Shortness Of Breath Amlodipine Besylate 5 mg 11/11/24 09:00 11/29/24 08:24 Amlodipine Besylate 5 Mg Tablet PO 5 mg DAILY SOURAV Administration Dextrose 12.5 gm 11/06/24 07:40 11/21/24 16:58 Dextrose 50% 25 Gm/50 Ml Syringe IV PUSH 12.5 gm PRN PRN Administration Hypoglycemia Protocol Dronabinol 5 mg 11/17/24 17:00 11/29/24 08:24 Dronabinol (*Crx) 2.5 Mg Capsule PO 5 mg BID SOURAV Administration Enoxaparin Sodium 30 mg 11/29/24 09:00 11/29/24 08:27 Enoxaparin 30 Mg/0.3 Ml Syringe SUB-Q 30 mg DAILY SOURAV Administration Folic Acid 1 mg 11/06/24 09:00 11/29/24 08:24 Folic Acid 1 Mg/0.2 Ml Inj IV PUSH 1 mg QAM SOURAV Administration Furosemide 20 mg 11/28/24 17:00 11/29/24 08:22 Furosemide Inj 40 Mg/4 Ml Vial IV PUSH 20 mg BID SOURAV Administration Glucagon 1 mg 11/06/24 07:40 Glucagon For Inj 1 Mg Vial IM PRN PRN Hypoglycemia Protocol Glucose 15 gm 11/06/24 07:40 Glucose Oral Gel 15 Gm Of Glucse In 37.5 Gm Tube PO PRN PRN Hypoglycemia Protocol Hydralazine HCl 10 mg 11/10/24 09:16 11/29/24 05:21 Hydralazine Hcl 20 Mg/Ml Vial IV PUSH 10 mg Q4HR PRN Administration Blood Pressure - High Dextrose 1,000 mls @ 100 mls/hr 11/06/24 07:40 Dextrose 5% 1,000 Ml IVPB PRN PRN Hypoglycemia Protocol Insulin Aspart 2 - 5 units 11/18/24 08:00 11/29/24 12:20 Insulin Aspart (*Bkc) 100 Units/Ml SUB-Q Not Given [facility] Protocol Naloxone HCl 0.1 mg 11/06/24 00:01 Naloxone Hcl 0.4 Mg/Ml Vial IV PUSH Q2M PRN Opiate Reversal Ondansetron HCl 4 mg 11/06/24 00:01 11/27/24 04:04 Ondansetron Inj 4 Mg/2 Ml Vial IV PUSH 4 mg Q4H PRN Administration Nausea And Vomiting Pantoprazole Sodium 40 mg 11/06/24 09:00 11/29/24 08:27 Pantoprazole Sodium Iv 40 Mg Vial IV PUSH 40 mg Q12HR SOURAV Administration Phenyleph/Shark Oil/[place] Butter 1 supp 11/19/24 18:18 11/19/24 18:33 Phenylephrine Hcl/[place] Butter Supp.Rect (*Bkc) RECTAL 1 supp Q12HR PRN Administration Hemorrhoids Psyllium Hydrophilic Mucilloid 1 packet 11/29/24 09:00 11/29/24 08:31 Psyllium Powder Packet PO 1 packet QAM SOURAV Administration Thiamine HCl 100 mg 11/06/24 09:00 11/29/24 08:26 Thiamine Hcl 200 Mg/2 Ml Vial IV PUSH 100 mg QAM SOURAV Administration Radiology Results: ITS Impressions Head CT 11/05/24 20:50 IMPRESSION: 1. Moderate nonspecific cerebral white matter disease, which likely represents chronic small vessel ischemic disease. 2. 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 Upper GI Series 11/08/24 12:17 IMPRESSION: 1. Slow gastric emptying likely related to postoperative ileus. No extraluminal leakage of contrast. Chest/Abdomen/Pelvis CT 11/10/24 10:38 IMPRESSION: 1. Small volume of ascites with mass effect on right lateral aspect of the liver, likely an exudate. 2. Small pleural effusions. 3. Wall thickening of the descending and sigmoid colon and rectum, consistent with colitis versus interstitial edema. Catheter Placement CT 11/12/24 14:47 IMPRESSION: 1. Successful CT-guided right upper quadrant abdominal abscess drainage yielding yellow fluid. Abdomen X-Ray 11/14/24 11:13 IMPRESSION: Nonspecific, nonobstructive bowel gas pattern. Supportive devices unchanged in position. Bilateral pleural effusions. If clinical suspicion persists, CT examination of the abdomen and pelvis (with intravenous contrast) is suggested for further evaluation. Renal Ultrasound 11/19/24 16:17 IMPRESSION: No hydronephrosis or renal calculi. Findings suggesting medical renal disease. Free fluid within the pelvis. Abdomen/Pelvis CT 11/20/24 14:44 IMPRESSION: Large bilateral pleural effusions, with bilateral lower lobe atelectasis. Infection in the lower lobes is not excluded. Single loop of dilated jejunum, likely representing localized ileus. Early/partial obstruction could appear similarly. Colonic wall thickening, as can be seen with colitis. Moderate ascites. Diffuse edema of the subcutaneous fat and mesenteric fat. Venous Doppler Study 11/22/24 10:28 IMPRESSION: 1. No deep venous thrombosis in either lower limb. Renal Scan Nuclear Medicine 11/23/24 14:21 IMPRESSION: 1. Symmetric kidney function. 2. Delayed activity clearance from both kidneys with continually rising activity curves extending over the 30 minutes of observation and without associated hydronephrosis consistent with nonspecific, nonobstructive nephropathy. Modified Barium Swallow 11/26/24 10:39 IMPRESSION: 1. Trace laryngeal penetration. 2. Please refer to the speech therapy report for recommendations. Chest X-Ray 11/27/24 13:15 Impression: 1: Moderate edema with bilateral pleural effusions. Labs Labs: Laboratory Results - last 24 hr 11/28/24 11/28/24 11/28/24 17:01 19:48 20:29 WBC RBC Hgb Hct MCV MCH MCHC RDW Plt Count MPV Immature Gran % (Auto) Neut % (Auto) Lymph % (Auto) [place] % (Auto) Eos % (Auto) Baso % (Auto) Lymph # (Auto) [place] # (Auto) Eos # (Auto) Baso # (Auto) Abs Immat Gran (auto) Absolute Neuts (auto) Absolute Nucleated RBC Nucleated RBC % Sodium Potassium Chloride Carbon Dioxide Anion Gap BUN Creatinine Estim Creat Clear Calc Estimated GFR Glucose POC Capillary Glucose 95 78 127 H Calcium Phosphorus Magnesium Total Bilirubin AST ALT Alkaline Phosphatase Total Protein Albumin C. difficile (PCR) 11/29/24 11/29/24 11/29/24 06:33 08:04 10:18 WBC 15.9 H RBC 3.38 L Hgb 9.4 L Hct 30.1 L MCV 89.1 MCH 27.8 MCHC 31.2 L RDW 14.8 H Plt Count 649 H MPV 9.4 Immature Gran % (Auto) 3.8 H Neut % (Auto) 82.9 H Lymph % (Auto) 6.6 L [place] % (Auto) 5.9 Eos % (Auto) 0.1 Baso % (Auto) 0.7 Lymph # (Auto) 1.04 [place] # (Auto) 0.9 H Eos # (Auto) 0.0 Baso # (Auto) 0.1 Abs Immat Gran (auto) 0.61 H Absolute Neuts (auto) 13.2 H Absolute Nucleated RBC 0.000 Nucleated RBC % 0.0 Sodium 140 Potassium 2.8 L* Chloride 109 H Carbon Dioxide 25 Anion Gap 6 BUN 31 H Creatinine 3.14 H Estim Creat Clear Calc 14 Estimated GFR 20 L Glucose 95 POC Capillary Glucose 91 Calcium 7.6 L Phosphorus 3.9 Magnesium 1.9 Total Bilirubin 0.4 AST 33 ALT 14 Alkaline Phosphatase 121 Total Protein 6.0 L Albumin 2.7 L C. difficile (PCR) Negative 11/29/24 12:09 WBC RBC Hgb Hct MCV MCH MCHC RDW Plt Count MPV Immature Gran % (Auto) Neut % (Auto) Lymph % (Auto) [place] % (Auto) Eos % (Auto) Baso % (Auto) Lymph # (Auto) [place] # (Auto) Eos # (Auto) Baso # (Auto) Abs Immat Gran (auto) Absolute Neuts (auto) Absolute Nucleated RBC Nucleated RBC % Sodium Potassium Chloride Carbon Dioxide Anion Gap BUN Creatinine Estim Creat Clear Calc Estimated GFR Glucose POC Capillary Glucose 88 Calcium Phosphorus Magnesium Total Bilirubin AST ALT Alkaline Phosphatase Total Protein Albumin C. difficile (PCR) Quality VTE Prophylaxis VTE prophylaxis: mechanical ordered and pharmacologic ordered
--- NOTE | 2024-11-29 13:07 | P.PNNP_ITS ---
Progress Note: A&P Assessment and Plan (1) DEBI (acute kidney injury): Code(s): N17.9 - Acute kidney failure, unspecified Status: Acute Assessment and Plan: * initial insult on admission was due to sepsis hypotension, fluid shifts and hypovolemia * resolved with supportive therapy * second episode noted on 11/18...creatinine increased from 0.9 -> 2.2 -> 3.0mg/dl * etiology of second episode is not entirely clear... * suspect ATN from prerenal azotemia secondary to third spacing given recent abdominal surgery compounded by his diminished oral intake * recent CT scan noted (ascites, pleural effusions, anasarca...) * evaluation to date noted: * renal ultrasound without obstruction but with medical renal disease * urine electrolytes prerenal * UA not indicative of infection * urine eosinophils negative * mild proteinuria noted (~ 1300mg proteinuria) * CPK low * renal scan suggestive of ATN * on low dose diuresis (lasix 20mg IV bid) given imaging demonstrating anasarca (CXR and CT scan) * follow trend of repeat labs and UOP (2) Perforated gastric ulcer: Qualifiers: Gastric ulcer chronicity: acute Qualified Code(s): K25.1 - Acute gastric ulcer with perforation Code(s): K25.5 - Chronic or unspecified gastric ulcer with perforation Status: Acute Assessment and Plan: * s/p exploratory laparotomy, extensive lysis of adhesions, intra-abdominal washout, repair of perforated gastric ulcer with omental patch * completed course of antibiotics * local wound care * Surgery following (3) Hypertension: Code(s): I10 - Essential (primary) hypertension Status: Chronic Assessment and Plan: * as noted by recent BP readings * likely an undiagnosed condition * on amlodipine and PRN IV hydralazine * follow trend of hemodynamics (4) COPD (chronic obstructive pulmonary disease): Code(s): J44.9 - Chronic obstructive pulmonary disease, unspecified Status: Acute Assessment and Plan: * not in exacerbation * bronchodilators as needed (5) Severe protein-calorie malnutrition: Code(s): E43 - Unspecified severe protein-calorie malnutrition Status: Acute Assessment and Plan: * on dronabinol 5mg bid * advance diet as tolerated (6) EtOH dependence: Code(s): F10.20 - Alcohol dependence, uncomplicated Status: Acute Assessment and Plan: * known history * continue thiamine and folic acid Will continue to follow. L Subjective Date/time seen: 11/29/24 13:07 Interval history: Follow-up for acute kidney injury/acute renal failure. Renal function/creatinine continues to improve in-spite of diuretic therapy; never complained on shortness of breath but was requiring supplemental oxygen previously which has been weaned off; no apparent distress voiced at this time; no issues/events overnight or earlier today.. Exam 2 Narrative: General: thin and elderly male in NAD Heart: normal S1 and S2; no rub Lungs: clear anteriorly; decreased at bases Abdomen: mild TTP and distension; decreased bowel sounds Extremities: no cyanosis or clubbing; no edema Skin: warm and dry Objective Data Vital Signs Vital Signs: Vital Signs Temp Pulse Resp BP Pulse Ox O2 Del Method O2 Flow Rate 11/29/24 13:00 98.5 F 79 20 157/77 H 91 11/29/24 08:35 93 157/96 H 11/29/24 08:04 70 16 92 Nasal Cannula 3 11/29/24 08:00 Room Air 11/29/24 07:15 74 18 11/29/24 07:05 70 16 11/29/24 06:54 170/96 H 93 11/29/24 06:42 92 Room Air 11/29/24 05:42 98.9 F 89 20 185/109 H 94 11/28/24 21:36 77 20 11/28/24 21:26 75 20 11/28/24 21:09 99.8 F H 79 20 164/89 H 99 11/28/24 20:00 99 Nasal Cannula 3 Intake/Output Intake/Output: Intake & Output 11/26/24 11/27/24 11/28/24 11/29/24 23:59 23:59 23:59 23:59 Intake Total 680 1475 1205 480 Balance 680 1475 1205 480 Meds/Results Medications: Active Medications Generic Name Dose Route Start Last Admin Trade Name Freq PRN Reason Stop Dose Admin Acetaminophen 650 mg 11/06/24 14:48 11/07/24 19:10 Acetaminophen 650 Mg Suppository RECTAL 650 mg Q4H PRN Administration Mild Pain (1-3) or Fever Acetaminophen 650 mg 11/14/24 15:21 Acetaminophen Elixir 325 Mg/10.15 Ml Udc FEED TUBE Q4H PRN Headache, Fever, Mild Pain Acetylcysteine 200 mg 11/09/24 20:00 11/29/24 07:05 Acetylcysteine 20% Inhal Soln 800 Mg/4 Ml Vial INHALATION 200 mg Q12HRT SOURAV Administration Albuterol 2.5 mg 11/09/24 15:38 11/29/24 07:05 Albuterol Sulfate Neb 2.5 Mg/3 Ml Inh INHALATION 2.5 mg Q12HR PRN Administration Shortness Of Breath Amlodipine Besylate 5 mg 11/11/24 09:00 11/29/24 08:24 Amlodipine Besylate 5 Mg Tablet PO 5 mg DAILY SOURAV Administration Dextrose 12.5 gm 11/06/24 07:40 11/21/24 16:58 Dextrose 50% 25 Gm/50 Ml Syringe IV PUSH 12.5 gm PRN PRN Administration Hypoglycemia Protocol Dronabinol 5 mg 11/17/24 17:00 11/29/24 17:05 Dronabinol (*Crx) 2.5 Mg Capsule PO 5 mg BID SOURAV Administration Enoxaparin Sodium 30 mg 11/29/24 09:00 11/29/24 08:27 Enoxaparin 30 Mg/0.3 Ml Syringe SUB-Q 30 mg DAILY SOURAV Administration Folic Acid 1 mg 11/06/24 09:00 11/29/24 08:24 Folic Acid 1 Mg/0.2 Ml Inj IV PUSH 1 mg QAM SOURAV Administration Furosemide 20 mg 11/28/24 17:00 11/29/24 17:06 Furosemide Inj 40 Mg/4 Ml Vial IV PUSH 20 mg BID SOURAV Administration Glucagon 1 mg 11/06/24 07:40 Glucagon For Inj 1 Mg Vial IM PRN PRN Hypoglycemia Protocol Glucose 15 gm 11/06/24 07:40 Glucose Oral Gel 15 Gm Of Glucse In 37.5 Gm Tube PO PRN PRN Hypoglycemia Protocol Hydralazine HCl 10 mg 11/10/24 09:16 11/29/24 05:21 Hydralazine Hcl 20 Mg/Ml Vial IV PUSH 10 mg Q4HR PRN Administration Blood Pressure - High Dextrose 1,000 mls @ 100 mls/hr 11/06/24 07:40 Dextrose 5% 1,000 Ml IVPB PRN PRN Hypoglycemia Protocol Insulin Aspart 2 - 5 units 11/18/24 08:00 11/29/24 17:11 Insulin Aspart (*Bkc) 100 Units/Ml SUB-Q Not Given TIDWM [facility] Protocol Naloxone HCl 0.1 mg 11/06/24 00:01 Naloxone Hcl 0.4 Mg/Ml Vial IV PUSH Q2M PRN Opiate Reversal Ondansetron HCl 4 mg 11/06/24 00:01 11/27/24 04:04 Ondansetron Inj 4 Mg/2 Ml Vial IV PUSH 4 mg Q4H PRN Administration Nausea And Vomiting Pantoprazole Sodium 40 mg 11/06/24 09:00 11/29/24 08:27 Pantoprazole Sodium Iv 40 Mg Vial IV PUSH 40 mg Q12HR SOURAV Administration Phenyleph/Shark Oil/[place] Butter 1 supp 11/19/24 18:18 11/19/24 18:33 Phenylephrine Hcl/[place] Butter Supp.Rect (*Bkc) RECTAL 1 supp Q12HR PRN Administration Hemorrhoids Psyllium Hydrophilic Mucilloid 1 packet 11/29/24 09:00 11/29/24 08:31 Psyllium Powder Packet PO 1 packet QAM SOURAV Administration Thiamine HCl 100 mg 11/06/24 09:00 11/29/24 08:26 Thiamine Hcl 200 Mg/2 Ml Vial IV PUSH 100 mg QAM SOURAV Administration Radiology Results: ITS Impressions Head CT 11/05/24 20:50 IMPRESSION: 1. Moderate nonspecific cerebral white matter disease, which likely represents chronic small vessel ischemic disease. 2. 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 Upper GI Series 11/08/24 12:17 IMPRESSION: 1. Slow gastric emptying likely related to postoperative ileus. No extraluminal leakage of contrast. Chest/Abdomen/Pelvis CT 11/10/24 10:38 IMPRESSION: 1. Small volume of ascites with mass effect on right lateral aspect of the liver, likely an exudate. 2. Small pleural effusions. 3. Wall thickening of the descending and sigmoid colon and rectum, consistent with colitis versus interstitial edema. Catheter Placement CT 11/12/24 14:47 IMPRESSION: 1. Successful CT-guided right upper quadrant abdominal abscess drainage yielding yellow fluid. Abdomen X-Ray 11/14/24 11:13 IMPRESSION: Nonspecific, nonobstructive bowel gas pattern. Supportive devices unchanged in position. Bilateral pleural effusions. If clinical suspicion persists, CT examination of the abdomen and pelvis (with intravenous contrast) is suggested for further evaluation. Renal Ultrasound 11/19/24 16:17 IMPRESSION: No hydronephrosis or renal calculi. Findings suggesting medical renal disease. Free fluid within the pelvis. Abdomen/Pelvis CT 11/20/24 14:44 IMPRESSION: Large bilateral pleural effusions, with bilateral lower lobe atelectasis. Infection in the lower lobes is not excluded. Single loop of dilated jejunum, likely representing localized ileus. Early/partial obstruction could appear similarly. Colonic wall thickening, as can be seen with colitis. Moderate ascites. Diffuse edema of the subcutaneous fat and mesenteric fat. Venous Doppler Study 11/22/24 10:28 IMPRESSION: 1. No deep venous thrombosis in either lower limb. Renal Scan Nuclear Medicine 11/23/24 14:21 IMPRESSION: 1. Symmetric kidney function. 2. Delayed activity clearance from both kidneys with continually rising activity curves extending over the 30 minutes of observation and without associated hydronephrosis consistent with nonspecific, nonobstructive nephropathy. Modified Barium Swallow 11/26/24 10:39 IMPRESSION: 1. Trace laryngeal penetration. 2. Please refer to the speech therapy report for recommendations. Chest X-Ray 11/27/24 13:15 Impression: 1: Moderate edema with bilateral pleural effusions. Labs Labs: Laboratory Tests 11/29/24 06:33 11/29/24 06:33 Calcium 7.6 L Phosphorus 3.9 Magnesium 1.9 Total Bilirubin 0.4 AST 33 ALT 14 Alkaline Phosphatase 121 Total Protein 6.0 L Albumin 2.7 L
[2024-11-29 17:11] LABS: Glucose Point of Care 78 mg/dl (65-105)
[2024-11-29 20:43] LABS: Glucose Point of Care 123 mg/dl (65-105)
[2024-11-30] VITALS (8 sets, daily range): BP systolic 146–175; BP diastolic 90–97; PULSE 76–85; RESP 14–85; TEMP 36.4–37.1; O2SAT 92–95
[2024-11-30] MEDS: hydrALAZINE HCL 20 MG/ML VIAL 10 MG IV PUSH ×2 (00:04→06:00)
[2024-11-30 06:18] LABS: Basophils Absolute Auto 0.1 K/mm3 (0.0-0.1); Basophils Percent Auto 0.4 % (0.2-1.2); Eosinophils Percent Auto 0.1 % (0-4.4); Hematocrit 28.6 % (42.0-52.0); Hemoglobin 9.3 g/dL (14.0-18.0); Immature Granulocyte Absolute 0.45 K/mm3 (0.00-0.031); Lymphocytes Absolute Auto 1.49 K/mm3 (0.9-3.2); Lymphocytes Percent Auto 9.8 % (18.3-44.2); Mean Corpuscular HGB Conc 32.5 g/dl (32-36); Mean Corpuscular Hemoglobin 28.4 pg (26-34); Mean Corpuscular Volume 87.5 fl (80-100); Mean Platelet Volume 9.3 fl (7.4-10.4); Monocytes Absolute Auto 0.8 K/mm3 (0.1-0.6); Monocytes Percent Auto 5.5 % (2.6-8.5); Neutrophils Absolute Auto 12.3 K/mm3 (1.3-6.7); Neutrophils Percent Auto 81.2 % (45.5-73.1); Platelet Count Result 573 k/mm3 (150-375); Red Blood Count 3.27 M/mm3 (4.6-6.20); Red Cell Distribution Width 14.8 % (11.5-14.5); White Blood Count 15.2 K/mm3 (4.5-10.0)
[2024-11-30 06:39] LABS: Alanine Aminotransferase 13 U/L (6-50); Albumin Level 2.6 g/dL (3.5-5.1); Alkaline Phosphatase 108 U/L (38-126); Anion Gap 9 mmol/L (4-12); Aspartate Amino Transferase 30 U/L (17-59); Bilirubin,Total 0.4 mg/dL (0.2-1.3); Blood Urea Nitrogen 33 mg/dL (9-20); Calcium 7.5 mg/dL (8.4-10.2); Carbon Dioxide 26 mmol/L (22-30); Chloride 106 mmol/L (98-107); Estimated CRCL calculation 16 ml/min; Estimated Glomerular Filt Rate 23; Glucose 89 mg/dL (65-110); Magnesium 1.8 mg/dL (1.6-2.3); Phosphorus 3.9 mg/dL (2.5-4.5); Potassium 3.1 mmol/L (3.4-5.0); Sodium 141 mmol/L (137-145)
[2024-11-30] MEDS: ALBUTEROL SULFATE NEB 2.5 MG/3 ML INH INHALATION ×2 (07:27→20:30)
[2024-11-30] MEDS: ACETYLCYSTEINE 20% INHAL SOLN 800 MG/4 ML VIAL 200 MG INHALATION ×2 (07:27→20:29)
[2024-11-30 07:57] LABS: Glucose Point of Care 100 mg/dl (65-105)
[2024-11-30] MEDS: THIAMINE HCL 200 MG/2 ML VIAL 100 MG IV PUSH (09:49)
[2024-11-30] MEDS: PSYLLIUM POWDER PACKET 1 PACKET PO (09:49)
[2024-11-30] MEDS: ENOXAPARIN 30 MG/0.3 ML SYRINGE SUB-Q (09:49)
[2024-11-30] MEDS: amLODIPine BESYLATE 5 MG TABLET PO (09:51)
[2024-11-30] MEDS: droNABinol (*CRX) 2.5 MG CAPSULE 5 MG PO (09:51)
[2024-11-30] MEDS: FUROSEMIDE INJ 40 MG/4 ML VIAL 20 MG IV PUSH ×2 (09:51→17:17)
[2024-11-30] MEDS: POTASSIUM CHLORIDE 20 MEQ ER TABLET 40 MEQ PO (09:51)
[2024-11-30] MEDS: FOLIC ACID 1 MG/0.2 ML INJ IV PUSH (09:52)
[2024-11-30] MEDS: PANTOPRAZOLE SODIUM IV 40 MG VIAL IV PUSH ×2 (09:53→22:21)
--- NOTE | 2024-11-30 11:01 | P.PNNP_ITS ---
Progress Note: A&P Assessment and Plan (1) DEBI (acute kidney injury): Code(s): N17.9 - Acute kidney failure, unspecified Status: Acute Assessment and Plan: * slow improvement * initial insult on admission was due to sepsis hypotension, fluid shifts and hypovolemia * resolved with supportive therapy * second episode noted on 11/18...creatinine increased from 0.9 -> 2.2 -> 3.0mg/dl...etc * etiology of second episode is not entirely clear... * suspect ATN from prerenal azotemia secondary to third spacing given recent abdominal surgery compounded by his diminished oral intake * recent CT scan noted (ascites, pleural effusions, anasarca...) * evaluation to date noted: * renal ultrasound without obstruction but with medical renal disease * urine electrolytes prerenal * UA not indicative of infection * urine eosinophils negative * mild proteinuria noted (~ 1300mg proteinuria) * CPK low * renal scan suggestive of ATN * creatinine peaked/plateaued at 4.20mg/dl with ongoing improvement noted * renal function tolerating gentle diuresis (IV lasix 20mg bid) * follow trend of repeat labs and UOP (2) Perforated gastric ulcer: Qualifiers: Gastric ulcer chronicity: acute Qualified Code(s): K25.1 - Acute gastric ulcer with perforation Code(s): K25.5 - Chronic or unspecified gastric ulcer with perforation Status: Acute Assessment and Plan: * s/p exploratory laparotomy, extensive lysis of adhesions, intra-abdominal washout, repair of perforated gastric ulcer with omental patch * on antibiotics * local wound care * Surgery following (3) Hypertension: Code(s): I10 - Essential (primary) hypertension Status: Chronic Assessment and Plan: * as noted by recent BP readings * likely an undiagnosed condition * on amlodpine and PRN IV hydralazine * titrate amlodipine and may need another agent * follow trend of hemodynamics (4) COPD (chronic obstructive pulmonary disease): Code(s): J44.9 - Chronic obstructive pulmonary disease, unspecified Status: Acute Assessment and Plan: * not in exacerbation * bronchodilators as needed (5) Severe protein-calorie malnutrition: Code(s): E43 - Unspecified severe protein-calorie malnutrition Status: Acute Assessment and Plan: * on dronabinol 5mg bid * advance diet as tolerated (6) EtOH dependence: Code(s): F10.20 - Alcohol dependence, uncomplicated Status: Acute Assessment and Plan: * known history * no evidence of withdrawal since admission * continue thiamine and folic acid Will continue to follow. L Subjective Date/time seen: 11/30/24 11:01 Interval history: Follow-up for acute kidney injury/acute renal failure. Renal function/creatiinine continues to improve with supportive therapy and gentle diuresis; appetite continues to slowly improve and appears to be tolerating current diet; no apparent distress noted at the time of my visit. Exam 2 Narrative: General: elderly male in NAD Heart: normal S1 and S2; no rub Lungs: clear anteriorly; decreased at bases Abdomen: soft and nontender; positive bowel sounds Extremities: no cyanosis or clubbing; no edema Skin: warm and dry Objective Data Vital Signs Vital Signs: Vital Signs Temp Pulse Resp BP Pulse Ox O2 Del Method FiO2 11/30/24 10:25 85 85 H 150/90 H 95 11/30/24 09:50 Room Air 11/30/24 07:38 81 20 11/30/24 07:27 84 20 11/30/24 07:27 92 Room Air 21 11/30/24 06:00 97.6 F 79 14 175/97 H 93 11/29/24 22:52 79 16 11/29/24 22:50 92 Room Air 11/29/24 21:57 98.3 F 79 16 173/82 H 92 11/29/24 20:00 Room Air Intake/Output Intake/Output: Intake & Output 11/27/24 11/28/24 11/29/24 11/30/24 23:59 23:59 23:59 23:59 Intake Total 1475 1205 480 480 Output Total 275 Balance 1475 1205 480 205 Meds/Results Medications: Active Medications Generic Name Dose Route Start Last Admin Trade Name Freq PRN Reason Stop Dose Admin Acetaminophen 650 mg 11/06/24 14:48 11/07/24 19:10 Acetaminophen 650 Mg Suppository RECTAL 650 mg Q4H PRN Administration Mild Pain (1-3) or Fever Acetaminophen 650 mg 11/14/24 15:21 Acetaminophen Elixir 325 Mg/10.15 Ml Udc FEED TUBE Q4H PRN Headache, Fever, Mild Pain Acetylcysteine 200 mg 11/09/24 20:00 11/30/24 07:27 Acetylcysteine 20% Inhal Soln 800 Mg/4 Ml Vial INHALATION 200 mg Q12HRT SOURAV Administration Albuterol 2.5 mg 11/09/24 15:38 11/30/24 07:27 Albuterol Sulfate Neb 2.5 Mg/3 Ml Inh INHALATION 2.5 mg Q12HR PRN Administration Shortness Of Breath Amlodipine Besylate 5 mg 11/11/24 09:00 11/30/24 09:51 Amlodipine Besylate 5 Mg Tablet PO 5 mg DAILY SOURAV Administration Dextrose 12.5 gm 11/06/24 07:40 11/21/24 16:58 Dextrose 50% 25 Gm/50 Ml Syringe IV PUSH 12.5 gm PRN PRN Administration Hypoglycemia Protocol Enoxaparin Sodium 30 mg 11/29/24 09:00 11/30/24 09:49 Enoxaparin 30 Mg/0.3 Ml Syringe SUB-Q 30 mg DAILY SOURAV Administration Folic Acid 1 mg 11/06/24 09:00 11/30/24 09:52 Folic Acid 1 Mg/0.2 Ml Inj IV PUSH 1 mg QAM SOURAV Administration Furosemide 20 mg 11/28/24 17:00 11/30/24 09:51 Furosemide Inj 40 Mg/4 Ml Vial IV PUSH 20 mg BID SOURAV Administration Glucagon 1 mg 11/06/24 07:40 Glucagon For Inj 1 Mg Vial IM PRN PRN Hypoglycemia Protocol Glucose 15 gm 11/06/24 07:40 Glucose Oral Gel 15 Gm Of Glucse In 37.5 Gm Tube PO PRN PRN Hypoglycemia Protocol Hydralazine HCl 10 mg 11/10/24 09:16 11/30/24 06:00 Hydralazine Hcl 20 Mg/Ml Vial IV PUSH 10 mg Q4HR PRN Administration Blood Pressure - High Dextrose 1,000 mls @ 100 mls/hr 11/06/24 07:40 Dextrose 5% 1,000 Ml IVPB PRN PRN Hypoglycemia Protocol Insulin Aspart 2 - 5 units 11/18/24 08:00 11/30/24 12:50 Insulin Aspart (*Bkc) 100 Units/Ml SUB-Q Not Given TIDWM SOURAV Protocol Mirtazapine 15 mg 11/30/24 21:00 Mirtazapine 15 Mg Tablet PO HS SOURAV Naloxone HCl 0.1 mg 11/06/24 00:01 Naloxone Hcl 0.4 Mg/Ml Vial IV PUSH Q2M PRN Opiate Reversal Ondansetron HCl 4 mg 11/06/24 00:01 11/27/24 04:04 Ondansetron Inj 4 Mg/2 Ml Vial IV PUSH 4 mg Q4H PRN Administration Nausea And Vomiting Pantoprazole Sodium 40 mg 11/06/24 09:00 11/30/24 09:53 Pantoprazole Sodium Iv 40 Mg Vial IV PUSH 40 mg Q12HR SOURAV Administration Phenyleph/Shark Oil/[place] Butter 1 supp 11/19/24 18:18 11/19/24 18:33 Phenylephrine Hcl/[place] Butter Supp.Rect (*Bkc) RECTAL 1 supp Q12HR PRN Administration Hemorrhoids Psyllium Hydrophilic Mucilloid 1 packet 11/29/24 09:00 11/30/24 09:49 Psyllium Powder Packet PO 1 packet QAM SOURAV Administration Thiamine HCl 100 mg 11/06/24 09:00 11/30/24 09:49 Thiamine Hcl 200 Mg/2 Ml Vial IV PUSH 100 mg QAM SOURAV Administration Radiology Results: ITS Impressions Head CT 11/05/24 20:50 IMPRESSION: 1. Moderate nonspecific cerebral white matter disease, which likely represents chronic small vessel ischemic disease. 2. 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 Upper GI Series 11/08/24 12:17 IMPRESSION: 1. Slow gastric emptying likely related to postoperative ileus. No extraluminal leakage of contrast. Chest/Abdomen/Pelvis CT 11/10/24 10:38 IMPRESSION: 1. Small volume of ascites with mass effect on right lateral aspect of the liver, likely an exudate. 2. Small pleural effusions. 3. Wall thickening of the descending and sigmoid colon and rectum, consistent with colitis versus interstitial edema. Catheter Placement CT 11/12/24 14:47 IMPRESSION: 1. Successful CT-guided right upper quadrant abdominal abscess drainage yielding yellow fluid. Abdomen X-Ray 11/14/24 11:13 IMPRESSION: Nonspecific, nonobstructive bowel gas pattern. Supportive devices unchanged in position. Bilateral pleural effusions. If clinical suspicion persists, CT examination of the abdomen and pelvis (with intravenous contrast) is suggested for further evaluation. Renal Ultrasound 11/19/24 16:17 IMPRESSION: No hydronephrosis or renal calculi. Findings suggesting medical renal disease. Free fluid within the pelvis. Abdomen/Pelvis CT 11/20/24 14:44 IMPRESSION: Large bilateral pleural effusions, with bilateral lower lobe atelectasis. Infection in the lower lobes is not excluded. Single loop of dilated jejunum, likely representing localized ileus. Early/partial obstruction could appear similarly. Colonic wall thickening, as can be seen with colitis. Moderate ascites. Diffuse edema of the subcutaneous fat and mesenteric fat. Venous Doppler Study 11/22/24 10:28 IMPRESSION: 1. No deep venous thrombosis in either lower limb. Renal Scan Nuclear Medicine 11/23/24 14:21 IMPRESSION: 1. Symmetric kidney function. 2. Delayed activity clearance from both kidneys with continually rising activity curves extending over the 30 minutes of observation and without associated hydronephrosis consistent with nonspecific, nonobstructive nephropathy. Modified Barium Swallow 11/26/24 10:39 IMPRESSION: 1. Trace laryngeal penetration. 2. Please refer to the speech therapy report for recommendations. Chest X-Ray 11/27/24 13:15 Impression: 1: Moderate edema with bilateral pleural effusions. Labs Labs: Laboratory Tests 11/30/24 06:01 11/30/24 06:01 Calcium 7.5 L Phosphorus 3.9 Magnesium 1.8 Total Bilirubin 0.4 AST 30 ALT 13 Alkaline Phosphatase 108 Total Protein 6.0 L Albumin 2.6 L Microbiology 11/29/24 10:18 Stool Escherichia coli Shiga Toxins - Final 11/29/24 10:18 Stool Campylobacter Antigen Assay - Final
[2024-11-30 12:09] LABS: Glucose Point of Care 97 mg/dl (65-105)
--- NOTE | 2024-11-30 12:57 | PCNFU ---
Nutrition Follow-Up Complete: Alerted GI function as related to perforated gastric ulcer as evidenced by NPO. Meet estimated nutritional needs. - Not progressing. Poor oral intake Goal: Pt current nutrition is Puree diet. Ensure Compact TIS for additional 220 kcal and 9 g protein each. Nutrition recommendation: Encourage PO intake. Repeat swallow study to hopefully upgrade diet when appropriate Last recorded weight is 50.3 kg. Bowel Motility: C/o loose stools. +6 BM 11/29, +2 BM 11/30 Labs Reviewed: Hgb 9.3, Hct 28.6, Alb 2.6, K+ 3.1, GFR 23, BUN 33, Cre 2.8 Meds Noted: Lovenox, insulin, protonix Skin: WNL Additional Notes: Pt is refusing meals because he does not like puree texture. Discussed in rounds. To repeat swallow study when appropriate. Will monitor weight, labs, skin, diet orders, meds daily in ICU and reassessing every Tuesday and Tuesday.
--- NOTE | 2024-11-30 14:39 | PCPTNOTE ---
Patient refused PT. Patient states there is only so much I can do. You are expecting me to do too much too soon. I will get my strength back in time. I will be walking to the bathroom on my own. I provided education on the importance of participating in therapy and patient verbalizes understanding but continues to refuse PT.
--- NOTE | 2024-11-30 15:08 | PCPTNOTE ---
change in PT treatment frequency from 3-5 to 2-3 x/wk.
[2024-11-30 16:48] LABS: Glucose Point of Care 114 mg/dl (65-105)
--- NOTE | 2024-11-30 17:37 | P.PNIM_ITS ---
Progress Note: A&P Assessment and Plan (1) Metabolic acidosis: Code(s): E87.20 - Acidosis, unspecified Status: Acute Assessment and Plan: Gradually improving, will continue current treatment and monitor. (2) DEBI (acute kidney injury): Code(s): N17.9 - Acute kidney failure, unspecified Status: Acute Assessment and Plan: Creatinine trending up Kidney ultrasound medical disease Cr 4.2 to 2.8, baseline normal Nephrology following (3) Perforated gastric ulcer: Qualifiers: Gastric ulcer chronicity: acute Qualified Code(s): K25.1 - Acute gastric ulcer with perforation Code(s): K25.5 - Chronic or unspecified gastric ulcer with perforation Status: Acute Assessment and Plan: Continue with Protonix and monitor hgb (4) COPD (chronic obstructive pulmonary disease): Code(s): J44.9 - Chronic obstructive pulmonary disease, unspecified Status: Acute Assessment and Plan: Stable on current medications. Will continue current treatment. (5) Sepsis: Code(s): A41.9 - Sepsis, unspecified organism Status: Acute Assessment and Plan: Completed antibiotics (6) Pneumonia: Code(s): J18.9 - Pneumonia, unspecified organism Status: Acute Assessment and Plan: Completed antibiotics pneumonia resolved Repeat CXR showed pulm edema and Pleural effusion now on lasix (7) Acute hypoxic respiratory failure: Code(s): J96.01 - Acute respiratory failure with hypoxia Status: Acute Assessment and Plan: resolved CXR showed pulm edema and pleural effusion continue Lasix 20mg bid and monitor renal function ECHO from june normal function monitor (8) Sepsis associated hypotension: Code(s): A41.9 - Sepsis, unspecified organism; I95.9 - Hypotension, unspecified Status: Acute Assessment and Plan: completed antibiotics (9) EtOH dependence: Code(s): F10.20 - Alcohol dependence, uncomplicated Status: Acute Assessment and Plan: Counselling given Plan Diarrhea Stool studies pending monitor Code status full DVT prophylaxis on Sq Lovenox PT/OT following Awaiting placement to [facility] Subjective Date/time seen: 11/30/24 17:37 Interval history: Comfortable at bedside renal function improving on diuresis Review of Systems Review of Systems: Pt with a dry throat not talking loudly with ng tube in situ on tube feeds looks weak and tired ROS unobtainable: Yes unobtainable due to endotracheal tube, unobtainable due to medical condition and unobtainable due to mental status Exam Narrative: General: More alert toady Lungs/Chest: Trachea central Coarse BS B/L, No crackles or wheezing. Cardiac: RRR. Normal S1 S2. No murmurs Abdomen: Decreased but present bowel sounds. HARLEY drain in place. Soft. Tender to palpation as patient grimaces on exam. Extremities: No clubbing, cyanosis or edema. Warm : Shen in place Neurologic: Patient is able to move all 4 extremities spontaneously. Objective Data Vital Signs Vital Signs: Vital Signs - 24 hr 11/29/24 20:00 11/29/24 21:57 11/29/24 22:50 Temperature 98.3 F Pulse Rate 79 Respiratory Rate 16 Blood Pressure 173/82 H Pulse Oximetry 92 92 Oxygen Delivery Room Air Room Air Fraction of Inspired Oxygen 11/29/24 22:52 11/30/24 06:00 11/30/24 07:27 Temperature 97.6 F Pulse Rate 79 79 Respiratory Rate 16 14 Blood Pressure 175/97 H Pulse Oximetry 93 92 Oxygen Delivery Room Air Fraction of Inspired Oxygen 21 11/30/24 07:27 11/30/24 07:38 11/30/24 09:50 Temperature Pulse Rate 84 81 Respiratory Rate 20 20 Blood Pressure Pulse Oximetry Oxygen Delivery Room Air Fraction of Inspired Oxygen 11/30/24 10:25 11/30/24 14:00 Temperature 98.7 F Pulse Rate 85 84 Respiratory Rate 85 H 18 Blood Pressure 150/90 H 146/95 H Pulse Oximetry 95 94 Oxygen Delivery Fraction of Inspired Oxygen Intake/Output Intake/Output: Intake & Output 11/27/24 11/28/24 11/29/24 11/30/24 23:59 23:59 23:59 23:59 Intake Total 1475 1205 480 480 Output Total 275 Balance 1475 1205 480 205 Meds/Results Medications: Active Medications Generic Name Dose Route Start Last Admin Trade Name Freq PRN Reason Stop Dose Admin Acetaminophen 650 mg 11/06/24 14:48 11/07/24 19:10 Acetaminophen 650 Mg Suppository RECTAL 650 mg Q4H PRN Administration Mild Pain (1-3) or Fever Acetaminophen 650 mg 11/14/24 15:21 Acetaminophen Elixir 325 Mg/10.15 Ml Udc FEED TUBE Q4H PRN Headache, Fever, Mild Pain Acetylcysteine 200 mg 11/09/24 20:00 11/30/24 07:27 Acetylcysteine 20% Inhal Soln 800 Mg/4 Ml Vial INHALATION 200 mg Q12HRT SOURAV Administration Albuterol 2.5 mg 11/09/24 15:38 11/30/24 07:27 Albuterol Sulfate Neb 2.5 Mg/3 Ml Inh INHALATION 2.5 mg Q12HR PRN Administration Shortness Of Breath Amlodipine Besylate 5 mg 11/11/24 09:00 11/30/24 09:51 Amlodipine Besylate 5 Mg Tablet PO 5 mg DAILY SOURAV Administration Dextrose 12.5 gm 11/06/24 07:40 11/21/24 16:58 Dextrose 50% 25 Gm/50 Ml Syringe IV PUSH 12.5 gm PRN PRN Administration Hypoglycemia Protocol Enoxaparin Sodium 30 mg 11/29/24 09:00 11/30/24 09:49 Enoxaparin 30 Mg/0.3 Ml Syringe SUB-Q 30 mg DAILY SOURAV Administration Folic Acid 1 mg 11/06/24 09:00 11/30/24 09:52 Folic Acid 1 Mg/0.2 Ml Inj IV PUSH 1 mg QAM SOURVA Administration Furosemide 20 mg 11/28/24 17:00 11/30/24 17:17 Furosemide Inj 40 Mg/4 Ml Vial IV PUSH 20 mg BID SOURAV Administration Glucagon 1 mg 11/06/24 07:40 Glucagon For Inj 1 Mg Vial IM PRN PRN Hypoglycemia Protocol Glucose 15 gm 11/06/24 07:40 Glucose Oral Gel 15 Gm Of Glucse In 37.5 Gm Tube PO PRN PRN Hypoglycemia Protocol Hydralazine HCl 10 mg 11/10/24 09:16 11/30/24 06:00 Hydralazine Hcl 20 Mg/Ml Vial IV PUSH 10 mg Q4HR PRN Administration Blood Pressure - High Dextrose 1,000 mls @ 100 mls/hr 11/06/24 07:40 Dextrose 5% 1,000 Ml IVPB PRN PRN Hypoglycemia Protocol Insulin Aspart 2 - 5 units 11/18/24 08:00 11/30/24 17:17 Insulin Aspart (*Bkc) 100 Units/Ml SUB-Q Not Given TIDWM SOURAV Protocol Mirtazapine 15 mg 11/30/24 21:00 Mirtazapine 15 Mg Tablet PO HS SOURAV Naloxone HCl 0.1 mg 11/06/24 00:01 Naloxone Hcl 0.4 Mg/Ml Vial IV PUSH Q2M PRN Opiate Reversal Ondansetron HCl 4 mg 11/06/24 00:01 11/27/24 04:04 Ondansetron Inj 4 Mg/2 Ml Vial IV PUSH 4 mg Q4H PRN Administration Nausea And Vomiting Pantoprazole Sodium 40 mg 11/06/24 09:00 11/30/24 09:53 Pantoprazole Sodium Iv 40 Mg Vial IV PUSH 40 mg Q12HR SOURAV Administration Phenyleph/Shark Oil/[place] Butter 1 supp 11/19/24 18:18 11/19/24 18:33 Phenylephrine Hcl/[place] Butter Supp.Rect (*Bkc) RECTAL 1 supp Q12HR PRN Administration Hemorrhoids Psyllium Hydrophilic Mucilloid 1 packet 11/29/24 09:00 11/30/24 09:49 Psyllium Powder Packet PO 1 packet QAM SOURAV Administration Thiamine HCl 100 mg 11/06/24 09:00 11/30/24 09:49 Thiamine Hcl 200 Mg/2 Ml Vial IV PUSH 100 mg QAM SOURAV Administration Radiology Results: ITS Impressions Head CT 11/05/24 20:50 IMPRESSION: 1. Moderate nonspecific cerebral white matter disease, which likely represents chronic small vessel ischemic disease. 2. 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 Upper GI Series 11/08/24 12:17 IMPRESSION: 1. Slow gastric emptying likely related to postoperative ileus. No extraluminal leakage of contrast. Chest/Abdomen/Pelvis CT 11/10/24 10:38 IMPRESSION: 1. Small volume of ascites with mass effect on right lateral aspect of the liver, likely an exudate. 2. Small pleural effusions. 3. Wall thickening of the descending and sigmoid colon and rectum, consistent with colitis versus interstitial edema. Catheter Placement CT 11/12/24 14:47 IMPRESSION: 1. Successful CT-guided right upper quadrant abdominal abscess drainage yielding yellow fluid. Abdomen X-Ray 11/14/24 11:13 IMPRESSION: Nonspecific, nonobstructive bowel gas pattern. Supportive devices unchanged in position. Bilateral pleural effusions. If clinical suspicion persists, CT examination of the abdomen and pelvis (with intravenous contrast) is suggested for further evaluation. Renal Ultrasound 11/19/24 16:17 IMPRESSION: No hydronephrosis or renal calculi. Findings suggesting medical renal disease. Free fluid within the pelvis. Abdomen/Pelvis CT 11/20/24 14:44 IMPRESSION: Large bilateral pleural effusions, with bilateral lower lobe atelectasis. Infection in the lower lobes is not excluded. Single loop of dilated jejunum, likely representing localized ileus. Early/partial obstruction could appear similarly. Colonic wall thickening, as can be seen with colitis. Moderate ascites. Diffuse edema of the subcutaneous fat and mesenteric fat. Venous Doppler Study 11/22/24 10:28 IMPRESSION: 1. No deep venous thrombosis in either lower limb. Renal Scan Nuclear Medicine 11/23/24 14:21 IMPRESSION: 1. Symmetric kidney function. 2. Delayed activity clearance from both kidneys with continually rising activity curves extending over the 30 minutes of observation and without associated hydronephrosis consistent with nonspecific, nonobstructive nephropathy. Modified Barium Swallow 11/26/24 10:39 IMPRESSION: 1. Trace laryngeal penetration. 2. Please refer to the speech therapy report for recommendations. Chest X-Ray 11/27/24 13:15 Impression: 1: Moderate edema with bilateral pleural effusions. Labs Labs: Laboratory Results - last 24 hr 11/29/24 11/30/24 11/30/24 19:19 06:01 07:34 WBC 15.2 H RBC 3.27 L Hgb 9.3 L Hct 28.6 L MCV 87.5 MCH 28.4 MCHC 32.5 RDW 14.8 H Plt Count 573 H MPV 9.3 Immature Gran % (Auto) 3.0 H Neut % (Auto) 81.2 H Lymph % (Auto) 9.8 L [place] % (Auto) 5.5 Eos % (Auto) 0.1 Baso % (Auto) 0.4 Lymph # (Auto) 1.49 [place] # (Auto) 0.8 H Eos # (Auto) 0.0 Baso # (Auto) 0.1 Abs Immat Gran (auto) 0.45 H Absolute Neuts (auto) 12.3 H Absolute Nucleated RBC 0.000 Nucleated RBC % 0.0 Sodium 141 Potassium 3.1 L Chloride 106 Carbon Dioxide 26 Anion Gap 9 BUN 33 H Creatinine 2.80 H Estim Creat Clear Calc 16 Estimated GFR 23 L Glucose 89 POC Capillary Glucose 123 H 100 Calcium 7.5 L Phosphorus 3.9 Magnesium 1.8 Total Bilirubin 0.4 AST 30 ALT 13 Alkaline Phosphatase 108 Total Protein 6.0 L Albumin 2.6 L 11/30/24 11/30/24 12:02 16:40 WBC RBC Hgb Hct MCV MCH MCHC RDW Plt Count MPV Immature Gran % (Auto) Neut % (Auto) Lymph % (Auto) [place] % (Auto) Eos % (Auto) Baso % (Auto) Lymph # (Auto) [place] # (Auto) Eos # (Auto) Baso # (Auto) Abs Immat Gran (auto) Absolute Neuts (auto) Absolute Nucleated RBC Nucleated RBC % Sodium Potassium Chloride Carbon Dioxide Anion Gap BUN Creatinine Estim Creat Clear Calc Estimated GFR Glucose POC Capillary Glucose 97 114 H Calcium Phosphorus Magnesium Total Bilirubin AST ALT Alkaline Phosphatase Total Protein Albumin Quality VTE Prophylaxis VTE prophylaxis: mechanical ordered and pharmacologic ordered
[2024-11-30 20:03] LABS: Glucose Point of Care 85 mg/dl (65-105)
[2024-11-30] MEDS: MIRTAZAPINE 15 MG TABLET PO (22:21)
[2024-12-01] VITALS (7 sets, daily range): BP systolic 143–162; BP diastolic 87–99; PULSE 77–87; RESP 14–20; TEMP 36.6–37.1; O2SAT 92–94
[2024-12-01 07:16] LABS: Basophils Absolute Auto 0.1 K/mm3 (0.0-0.1); Basophils Percent Auto 0.4 % (0.2-1.2); Eosinophils Percent Auto 0.1 % (0-4.4); Hematocrit 29.2 % (42.0-52.0); Hemoglobin 9.3 g/dL (14.0-18.0); Immature Granulocyte Absolute 0.27 K/mm3 (0.00-0.031); Immature Granulocyte Percent A 1.7 % (0-0.5); Lymphocytes Absolute Auto 1.57 K/mm3 (0.9-3.2); Lymphocytes Percent Auto 9.6 % (18.3-44.2); Mean Corpuscular HGB Conc 31.8 g/dl (32-36); Mean Platelet Volume 9.4 fl (7.4-10.4); Monocytes Absolute Auto 0.9 K/mm3 (0.1-0.6); Monocytes Percent Auto 5.4 % (2.6-8.5); Neutrophils Absolute Auto 13.6 K/mm3 (1.3-6.7); Neutrophils Percent Auto 82.8 % (45.5-73.1); Platelet Count Result 521 k/mm3 (150-375); Red Blood Count 3.32 M/mm3 (4.6-6.20); Red Cell Distribution Width 14.9 % (11.5-14.5); White Blood Count 16.4 K/mm3 (4.5-10.0)
[2024-12-01 07:33] LABS: Alanine Aminotransferase 13 U/L (6-50); Albumin Level 2.8 g/dL (3.5-5.1); Alkaline Phosphatase 105 U/L (38-126); Anion Gap 8 mmol/L (4-12); Aspartate Amino Transferase 29 U/L (17-59); Bilirubin,Total 0.4 mg/dL (0.2-1.3); Blood Urea Nitrogen 32 mg/dL (9-20); Carbon Dioxide 27 mmol/L (22-30); Chloride 105 mmol/L (98-107); Estimated CRCL calculation 17 ml/min; Estimated Glomerular Filt Rate 24; Glucose 75 mg/dL (65-110); Magnesium 1.8 mg/dL (1.6-2.3); Phosphorus 4.3 mg/dL (2.5-4.5); Sodium 140 mmol/L (137-145)
[2024-12-01] MEDS: ACETYLCYSTEINE 20% INHAL SOLN 800 MG/4 ML VIAL 200 MG INHALATION ×2 (07:40→20:50)
[2024-12-01] MEDS: ALBUTEROL SULFATE NEB 2.5 MG/3 ML INH INHALATION ×2 (08:00→20:50)
[2024-12-01 08:26] LABS: Glucose Point of Care 80 mg/dl (65-105)
[2024-12-01] MEDS: FUROSEMIDE INJ 40 MG/4 ML VIAL 20 MG IV PUSH ×2 (10:25→17:45)
[2024-12-01] MEDS: amLODIPine BESYLATE 5 MG TABLET PO ×2 (10:26→11:27)
[2024-12-01] MEDS: FOLIC ACID 1 MG/0.2 ML INJ IV PUSH (10:26)
[2024-12-01] MEDS: ENOXAPARIN 30 MG/0.3 ML SYRINGE SUB-Q (10:30)
[2024-12-01] MEDS: PSYLLIUM POWDER PACKET 1 PACKET PO (10:30)
[2024-12-01] MEDS: PANTOPRAZOLE SODIUM IV 40 MG VIAL IV PUSH ×2 (10:30→21:24)
[2024-12-01] MEDS: THIAMINE HCL 200 MG/2 ML VIAL 100 MG IV PUSH (10:31)
--- NOTE | 2024-12-01 10:36 | P.PNNP_ITS ---
Progress Note: A&P Assessment and Plan (1) DEBI (acute kidney injury): Code(s): N17.9 - Acute kidney failure, unspecified Status: Acute Assessment and Plan: * Acute kidney injury * initial insult on admission was due to sepsis hypotension, fluid shifts and hypovolemia * resolved with supportive therapy * second episode noted on 11/18...creatinine increased from 0.9 -> 2.2 -> 3.0mg/dl...etc * etiology of second episode is not entirely clear... * suspect ATN from prerenal azotemia secondary to third spacing given recent abdominal surgery compounded by his diminished oral intake * recent CT scan noted (ascites, pleural effusions, anasarca...) * evaluation to date noted: * renal ultrasound without obstruction but with medical renal disease * urine electrolytes prerenal * UA not indicative of infection * urine eosinophils negative * mild proteinuria noted (~ 1300mg proteinuria) * CPK low * renal scan suggestive of ATN * creatinine peaked/plateaued at 4.20mg/dl with ongoing improvement noted * Today his creatinine is down to 2.68. * Urine output 1300 overnight. * Check labs in the more * Continue the Lasix low-dose (2) Perforated gastric ulcer: Qualifiers: Gastric ulcer chronicity: acute Qualified Code(s): K25.1 - Acute gastric ulcer with perforation Code(s): K25.5 - Chronic or unspecified gastric ulcer with perforation Status: Acute Assessment and Plan: * s/p exploratory laparotomy, extensive lysis of adhesions, intra-abdominal washout, repair of perforated gastric ulcer with omental patch * Finish the course of antibiotics * local wound care * Surgery following (3) Hypertension: Code(s): I10 - Essential (primary) hypertension Status: Chronic Assessment and Plan: * Systolic running in the 140s to 170s. * likely an undiagnosed condition * on amlodpine and PRN IV hydralazine * I will increase amlodipine to 10 mg per day * follow trend of hemodynamics (4) COPD (chronic obstructive pulmonary disease): Code(s): J44.9 - Chronic obstructive pulmonary disease, unspecified Status: Acute Assessment and Plan: * not in exacerbation * bronchodilators as needed (5) Severe protein-calorie malnutrition: Code(s): E43 - Unspecified severe protein-calorie malnutrition Status: Acute Assessment and Plan: * on dronabinol 5mg bid * advance diet as tolerated (6) EtOH dependence: Code(s): F10.20 - Alcohol dependence, uncomplicated Status: Acute Assessment and Plan: * known history * no evidence of withdrawal since admission * continue thiamine and folic acid Will continue to follow. Subjective Date/time seen: 12/01/24 10:36 Interval history: Patient is sitting up in bed. Eating some breakfast. He feels really good. Making plenty of urine. Appetite is good. No shortness of breath Exam Narrative: General: elderly male in NAD Heart: normal S1 and S2; no rub or gallop Lungs: clear anteriorly; decreased at bases Abdomen: Bowel sounds positive nontender Extremities: no cyanosis or clubbing; no edema Skin: warm Objective Data Vital Signs Vital Signs: Vital Signs - 24 hr 11/30/24 14:00 11/30/24 20:30 11/30/24 20:30 Temperature 98.7 F Pulse Rate 84 76 Respiratory Rate 18 18 Blood Pressure 146/95 H Pulse Oximetry 94 92 Oxygen Delivery Room Air 11/30/24 20:39 11/30/24 21:23 12/01/24 05:31 Temperature 98.8 F 97.8 F Pulse Rate 82 80 80 Respiratory Rate 18 14 14 Blood Pressure 152/90 H 161/90 H Pulse Oximetry 93 93 Oxygen Delivery 12/01/24 07:42 12/01/24 07:43 12/01/24 08:00 Temperature Pulse Rate 87 87 Respiratory Rate 16 16 Blood Pressure Pulse Oximetry 92 Oxygen Delivery Room Air Intake/Output Intake/Output: Intake & Output 11/28/24 11/29/24 11/30/24 12/01/24 23:59 23:59 23:59 23:59 Intake Total 1205 480 480 450 Output Total 275 1300 Balance 1205 480 205 -850 Meds/Results Medications: Active Medications Generic Name Dose Route Start Last Admin Trade Name Yakovq PRN Reason Stop Dose Admin Acetaminophen 650 mg 11/06/24 14:48 11/07/24 19:10 Acetaminophen 650 Mg Suppository RECTAL 650 mg Q4H PRN Administration Mild Pain (1-3) or Fever Acetaminophen 650 mg 11/14/24 15:21 Acetaminophen Elixir 325 Mg/10.15 Ml Udc FEED TUBE Q4H PRN Headache, Fever, Mild Pain Acetylcysteine 200 mg 11/09/24 20:00 12/01/24 07:40 Acetylcysteine 20% Inhal Soln 800 Mg/4 Ml Vial INHALATION 200 mg Q12HRT SOURAV Administration Albuterol 2.5 mg 11/09/24 15:38 12/01/24 08:00 Albuterol Sulfate Neb 2.5 Mg/3 Ml Inh INHALATION 2.5 mg Q12HR PRN Administration Shortness Of Breath Amlodipine Besylate 5 mg 11/11/24 09:00 12/01/24 10:26 Amlodipine Besylate 5 Mg Tablet PO 5 mg DAILY SOURAV Administration Dextrose 12.5 gm 11/06/24 07:40 11/21/24 16:58 Dextrose 50% 25 Gm/50 Ml Syringe IV PUSH 12.5 gm PRN PRN Administration Hypoglycemia Protocol Enoxaparin Sodium 30 mg 11/29/24 09:00 12/01/24 10:30 Enoxaparin 30 Mg/0.3 Ml Syringe SUB-Q 30 mg DAILY SOURAV Administration Folic Acid 1 mg 11/06/24 09:00 12/01/24 10:26 Folic Acid 1 Mg/0.2 Ml Inj IV PUSH 1 mg QAM SOURAV Administration Furosemide 20 mg 11/28/24 17:00 12/01/24 10:25 Furosemide Inj 40 Mg/4 Ml Vial IV PUSH 20 mg BID SOURAV Administration Glucagon 1 mg 11/06/24 07:40 Glucagon For Inj 1 Mg Vial IM PRN PRN Hypoglycemia Protocol Glucose 15 gm 11/06/24 07:40 Glucose Oral Gel 15 Gm Of Glucse In 37.5 Gm Tube PO PRN PRN Hypoglycemia Protocol Hydralazine HCl 10 mg 11/10/24 09:16 11/30/24 06:00 Hydralazine Hcl 20 Mg/Ml Vial IV PUSH 10 mg Q4HR PRN Administration Blood Pressure - High Dextrose 1,000 mls @ 100 mls/hr 11/06/24 07:40 Dextrose 5% 1,000 Ml IVPB PRN PRN Hypoglycemia Protocol Insulin Aspart 2 - 5 units 11/18/24 08:00 12/01/24 10:22 Insulin Aspart (*Bkc) 100 Units/Ml SUB-Q Not Given TIDWM SOURAV Protocol Mirtazapine 15 mg 11/30/24 21:00 11/30/24 22:21 Mirtazapine 15 Mg Tablet PO 15 mg HS SOURAV Administration Naloxone HCl 0.1 mg 11/06/24 00:01 Naloxone Hcl 0.4 Mg/Ml Vial IV PUSH Q2M PRN Opiate Reversal Ondansetron HCl 4 mg 11/06/24 00:01 11/27/24 04:04 Ondansetron Inj 4 Mg/2 Ml Vial IV PUSH 4 mg Q4H PRN Administration Nausea And Vomiting Pantoprazole Sodium 40 mg 11/06/24 09:00 12/01/24 10:30 Pantoprazole Sodium Iv 40 Mg Vial IV PUSH 40 mg Q12HR SOURAV Administration Phenyleph/Shark Oil/Alpha Butter 1 supp 11/19/24 18:18 11/19/24 18:33 Phenylephrine Hcl/Alpha Butter Supp.Rect (*Bkc) RECTAL 1 supp Q12HR PRN Administration Hemorrhoids Psyllium Hydrophilic Mucilloid 1 packet 11/29/24 09:00 12/01/24 10:30 Psyllium Powder Packet PO 1 packet QAM SOURAV Administration Thiamine HCl 100 mg 11/06/24 09:00 12/01/24 10:31 Thiamine Hcl 200 Mg/2 Ml Vial IV PUSH 100 mg QAM SOURAV Administration Radiology Results: ITS Impressions Head CT 11/05/24 20:50 IMPRESSION: 1. Moderate nonspecific cerebral white matter disease, which likely represents chronic small vessel ischemic disease. 2. 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 Upper GI Series 11/08/24 12:17 IMPRESSION: 1. Slow gastric emptying likely related to postoperative ileus. No extraluminal leakage of contrast. Chest/Abdomen/Pelvis CT 11/10/24 10:38 IMPRESSION: 1. Small volume of ascites with mass effect on right lateral aspect of the liver, likely an exudate. 2. Small pleural effusions. 3. Wall thickening of the descending and sigmoid colon and rectum, consistent with colitis versus interstitial edema. Catheter Placement CT 11/12/24 14:47 IMPRESSION: 1. Successful CT-guided right upper quadrant abdominal abscess drainage yielding yellow fluid. Abdomen X-Ray 11/14/24 11:13 IMPRESSION: Nonspecific, nonobstructive bowel gas pattern. Supportive devices unchanged in position. Bilateral pleural effusions. If clinical suspicion persists, CT examination of the abdomen and pelvis (with intravenous contrast) is suggested for further evaluation. Renal Ultrasound 11/19/24 16:17 IMPRESSION: No hydronephrosis or renal calculi. Findings suggesting medical renal disease. Free fluid within the pelvis. Abdomen/Pelvis CT 11/20/24 14:44 IMPRESSION: Large bilateral pleural effusions, with bilateral lower lobe atelectasis. Infection in the lower lobes is not excluded. Single loop of dilated jejunum, likely representing localized ileus. Early/partial obstruction could appear similarly. Colonic wall thickening, as can be seen with colitis. Moderate ascites. Diffuse edema of the subcutaneous fat and mesenteric fat. Venous Doppler Study 11/22/24 10:28 IMPRESSION: 1. No deep venous thrombosis in either lower limb. Renal Scan Nuclear Medicine 11/23/24 14:21 IMPRESSION: 1. Symmetric kidney function. 2. Delayed activity clearance from both kidneys with continually rising activity curves extending over the 30 minutes of observation and without associated hydronephrosis consistent with nonspecific, nonobstructive nephropathy. Modified Barium Swallow 11/26/24 10:39 IMPRESSION: 1. Trace laryngeal penetration. 2. Please refer to the speech therapy report for recommendations. Chest X-Ray 11/27/24 13:15 Impression: 1: Moderate edema with bilateral pleural effusions. Labs Labs: Laboratory Results - last 24 hr 11/30/24 11/30/24 11/30/24 12:02 16:40 19:38 WBC RBC Hgb Hct MCV MCH MCHC RDW Plt Count MPV Immature Gran % (Auto) Neut % (Auto) Lymph % (Auto) [place] % (Auto) Eos % (Auto) Baso % (Auto) Lymph # (Auto) [place] # (Auto) Eos # (Auto) Baso # (Auto) Abs Immat Gran (auto) Absolute Neuts (auto) Absolute Nucleated RBC Nucleated RBC % Sodium Potassium Chloride Carbon Dioxide Anion Gap BUN Creatinine Estim Creat Clear Calc Estimated GFR Glucose POC Capillary Glucose 97 114 H 85 Calcium Phosphorus Magnesium Total Bilirubin AST ALT Alkaline Phosphatase Total Protein Albumin 12/01/24 12/01/24 07:00 08:13 WBC 16.4 H RBC 3.32 L Hgb 9.3 L Hct 29.2 L MCV 88.0 MCH 28.0 MCHC 31.8 L RDW 14.9 H Plt Count 521 H MPV 9.4 Immature Gran % (Auto) 1.7 H Neut % (Auto) 82.8 H Lymph % (Auto) 9.6 L [place] % (Auto) 5.4 Eos % (Auto) 0.1 Baso % (Auto) 0.4 Lymph # (Auto) 1.57 [place] # (Auto) 0.9 H Eos # (Auto) 0.0 Baso # (Auto) 0.1 Abs Immat Gran (auto) 0.27 H Absolute Neuts (auto) 13.6 H Absolute Nucleated RBC 0.000 Nucleated RBC % 0.0 Sodium 140 Potassium 3.0 L Chloride 105 Carbon Dioxide 27 Anion Gap 8 BUN 32 H Creatinine 2.68 H Estim Creat Clear Calc 17 Estimated GFR 24 L Glucose 75 POC Capillary Glucose 80 Calcium 8.0 L Phosphorus 4.3 Magnesium 1.8 Total Bilirubin 0.4 AST 29 ALT 13 Alkaline Phosphatase 105 Total Protein 6.0 L Albumin 2.8 L
--- NOTE | 2024-12-01 10:51 | P.PNIM_ITS ---
Progress Note: A&P Assessment and Plan (1) Metabolic acidosis: Code(s): E87.20 - Acidosis, unspecified Status: Acute Assessment and Plan: Gradually improving, will continue current treatment and monitor. (2) DEBI (acute kidney injury): Code(s): N17.9 - Acute kidney failure, unspecified Status: Acute Assessment and Plan: Creatinine trending up Kidney ultrasound medical disease Cr 4.2 to 2.68, baseline normal Nephrology following (3) Perforated gastric ulcer: Qualifiers: Gastric ulcer chronicity: acute Qualified Code(s): K25.1 - Acute gastric ulcer with perforation Code(s): K25.5 - Chronic or unspecified gastric ulcer with perforation Status: Acute Assessment and Plan: Continue with Protonix and monitor hgb (4) COPD (chronic obstructive pulmonary disease): Code(s): J44.9 - Chronic obstructive pulmonary disease, unspecified Status: Acute Assessment and Plan: Stable on current medications. Will continue current treatment. (5) Sepsis: Code(s): A41.9 - Sepsis, unspecified organism Status: Acute Assessment and Plan: Completed antibiotics (6) Pneumonia: Code(s): J18.9 - Pneumonia, unspecified organism Status: Acute Assessment and Plan: Completed antibiotics pneumonia resolved Repeat CXR showed pulm edema and Pleural effusion now on lasix (7) Acute hypoxic respiratory failure: Code(s): J96.01 - Acute respiratory failure with hypoxia Status: Acute Assessment and Plan: resolved CXR showed pulm edema and pleural effusion continue Lasix 20mg bid and monitor renal function ECHO from june normal function monitor (8) Sepsis associated hypotension: Code(s): A41.9 - Sepsis, unspecified organism; I95.9 - Hypotension, unspecified Status: Acute Assessment and Plan: completed antibiotics (9) EtOH dependence: Code(s): F10.20 - Alcohol dependence, uncomplicated Status: Acute Assessment and Plan: Counselling given Plan Diarrhea Stool culture and c diff negative Likely from pureed diet started on PRN imodium monitor Code status full DVT prophylaxis on Sq Lovenox PT/OT following Awaiting placement to [facility] Subjective Date/time seen: 12/01/24 10:51 Interval history: Patient comfortable at bedside Kidney function continues to improve on gentle diuresis Review of Systems Review of Systems: Pt with a dry throat not talking loudly with ng tube in situ on tube feeds looks weak and tired ROS unobtainable: Yes unobtainable due to endotracheal tube, unobtainable due to medical condition and unobtainable due to mental status Exam Narrative: General: More alert toady Lungs/Chest: Trachea central Coarse BS B/L, No crackles or wheezing. Cardiac: RRR. Normal S1 S2. No murmurs Abdomen: Decreased but present bowel sounds. HARLEY drain in place. Soft. Tender to palpation as patient grimaces on exam. Extremities: No clubbing, cyanosis or edema. Warm : Shen in place Neurologic: Patient is able to move all 4 extremities spontaneously. Objective Data Vital Signs Vital Signs: Vital Signs - 24 hr 11/30/24 14:00 11/30/24 20:30 11/30/24 20:30 Temperature 98.7 F Pulse Rate 84 76 Respiratory Rate 18 18 Blood Pressure 146/95 H Pulse Oximetry 94 92 Oxygen Delivery Room Air 11/30/24 20:39 11/30/24 21:23 12/01/24 05:31 Temperature 98.8 F 97.8 F Pulse Rate 82 80 80 Respiratory Rate 18 14 14 Blood Pressure 152/90 H 161/90 H Pulse Oximetry 93 93 Oxygen Delivery 12/01/24 07:42 12/01/24 07:43 12/01/24 08:00 Temperature Pulse Rate 87 87 Respiratory Rate 16 16 Blood Pressure Pulse Oximetry 92 Oxygen Delivery Room Air Intake/Output Intake/Output: Intake & Output 11/28/24 11/29/24 11/30/24 12/01/24 23:59 23:59 23:59 23:59 Intake Total 1205 480 480 690 Output Total 275 1300 Balance 1205 480 205 -610 Meds/Results Medications: Active Medications Generic Name Dose Route Start Last Admin Trade Name Freq PRN Reason Stop Dose Admin Acetaminophen 650 mg 11/06/24 14:48 11/07/24 19:10 Acetaminophen 650 Mg Suppository RECTAL 650 mg Q4H PRN Administration Mild Pain (1-3) or Fever Acetaminophen 650 mg 11/14/24 15:21 Acetaminophen Elixir 325 Mg/10.15 Ml Udc FEED TUBE Q4H PRN Headache, Fever, Mild Pain Acetylcysteine 200 mg 11/09/24 20:00 12/01/24 07:40 Acetylcysteine 20% Inhal Soln 800 Mg/4 Ml Vial INHALATION 200 mg Q12HRT SOURAV Administration Albuterol 2.5 mg 11/09/24 15:38 12/01/24 08:00 Albuterol Sulfate Neb 2.5 Mg/3 Ml Inh INHALATION 2.5 mg Q12HR PRN Administration Shortness Of Breath Amlodipine Besylate 10 mg 12/02/24 09:00 Amlodipine Besylate 10 Mg Tablet PO DAILY SOURAV Amlodipine Besylate 5 mg 12/01/24 10:41 Amlodipine Besylate 5 Mg Tablet PO 12/01/24 10:42 ONCE ONE Dextrose 12.5 gm 11/06/24 07:40 11/21/24 16:58 Dextrose 50% 25 Gm/50 Ml Syringe IV PUSH 12.5 gm PRN PRN Administration Hypoglycemia Protocol Enoxaparin Sodium 30 mg 11/29/24 09:00 12/01/24 10:30 Enoxaparin 30 Mg/0.3 Ml Syringe SUB-Q 30 mg DAILY SOURAV Administration Folic Acid 1 mg 11/06/24 09:00 12/01/24 10:26 Folic Acid 1 Mg/0.2 Ml Inj IV PUSH 1 mg QAM SOURAV Administration Furosemide 20 mg 11/28/24 17:00 12/01/24 10:25 Furosemide Inj 40 Mg/4 Ml Vial IV PUSH 20 mg BID SOURAV Administration Glucagon 1 mg 11/06/24 07:40 Glucagon For Inj 1 Mg Vial IM PRN PRN Hypoglycemia Protocol Glucose 15 gm 11/06/24 07:40 Glucose Oral Gel 15 Gm Of Glucse In 37.5 Gm Tube PO PRN PRN Hypoglycemia Protocol Hydralazine HCl 10 mg 11/10/24 09:16 11/30/24 06:00 Hydralazine Hcl 20 Mg/Ml Vial IV PUSH 10 mg Q4HR PRN Administration Blood Pressure - High Dextrose 1,000 mls @ 100 mls/hr 11/06/24 07:40 Dextrose 5% 1,000 Ml IVPB PRN PRN Hypoglycemia Protocol Insulin Aspart 2 - 5 units 11/18/24 08:00 12/01/24 10:22 Insulin Aspart (*Bkc) 100 Units/Ml SUB-Q Not Given TIDWM SOURAV Protocol Mirtazapine 15 mg 11/30/24 21:00 11/30/24 22:21 Mirtazapine 15 Mg Tablet PO 15 mg HS SOURAV Administration Naloxone HCl 0.1 mg 11/06/24 00:01 Naloxone Hcl 0.4 Mg/Ml Vial IV PUSH Q2M PRN Opiate Reversal Ondansetron HCl 4 mg 11/06/24 00:01 11/27/24 04:04 Ondansetron Inj 4 Mg/2 Ml Vial IV PUSH 4 mg Q4H PRN Administration Nausea And Vomiting Pantoprazole Sodium 40 mg 11/06/24 09:00 12/01/24 10:30 Pantoprazole Sodium Iv 40 Mg Vial IV PUSH 40 mg Q12HR SOURAV Administration Phenyleph/Shark Oil/[place] Butter 1 supp 11/19/24 18:18 11/19/24 18:33 Phenylephrine Hcl/[place] Butter Supp.Rect (*Bkc) RECTAL 1 supp Q12HR PRN Administration Hemorrhoids Psyllium Hydrophilic Mucilloid 1 packet 11/29/24 09:00 12/01/24 10:30 Psyllium Powder Packet PO 1 packet QAM SOURAV Administration Thiamine HCl 100 mg 11/06/24 09:00 12/01/24 10:31 Thiamine Hcl 200 Mg/2 Ml Vial IV PUSH 100 mg QAM SOURAV Administration Radiology Results: ITS Impressions Head CT 11/05/24 20:50 IMPRESSION: 1. Moderate nonspecific cerebral white matter disease, which likely represents chronic small vessel ischemic disease. 2. 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 Upper GI Series 11/08/24 12:17 IMPRESSION: 1. Slow gastric emptying likely related to postoperative ileus. No extraluminal leakage of contrast. Chest/Abdomen/Pelvis CT 11/10/24 10:38 IMPRESSION: 1. Small volume of ascites with mass effect on right lateral aspect of the liver, likely an exudate. 2. Small pleural effusions. 3. Wall thickening of the descending and sigmoid colon and rectum, consistent with colitis versus interstitial edema. Catheter Placement CT 11/12/24 14:47 IMPRESSION: 1. Successful CT-guided right upper quadrant abdominal abscess drainage yielding yellow fluid. Abdomen X-Ray 11/14/24 11:13 IMPRESSION: Nonspecific, nonobstructive bowel gas pattern. Supportive devices unchanged in position. Bilateral pleural effusions. If clinical suspicion persists, CT examination of the abdomen and pelvis (with intravenous contrast) is suggested for further evaluation. Renal Ultrasound 11/19/24 16:17 IMPRESSION: No hydronephrosis or renal calculi. Findings suggesting medical renal disease. Free fluid within the pelvis. Abdomen/Pelvis CT 11/20/24 14:44 IMPRESSION: Large bilateral pleural effusions, with bilateral lower lobe atelectasis. Infection in the lower lobes is not excluded. Single loop of dilated jejunum, likely representing localized ileus. Early/partial obstruction could appear similarly. Colonic wall thickening, as can be seen with colitis. Moderate ascites. Diffuse edema of the subcutaneous fat and mesenteric fat. Venous Doppler Study 11/22/24 10:28 IMPRESSION: 1. No deep venous thrombosis in either lower limb. Renal Scan Nuclear Medicine 11/23/24 14:21 IMPRESSION: 1. Symmetric kidney function. 2. Delayed activity clearance from both kidneys with continually rising activity curves extending over the 30 minutes of observation and without associated hydronephrosis consistent with nonspecific, nonobstructive nephropathy. Modified Barium Swallow 11/26/24 10:39 IMPRESSION: 1. Trace laryngeal penetration. 2. Please refer to the speech therapy report for recommendations. Chest X-Ray 11/27/24 13:15 Impression: 1: Moderate edema with bilateral pleural effusions. Labs Labs: Laboratory Results - last 24 hr 11/30/24 11/30/24 11/30/24 12:02 16:40 19:38 WBC RBC Hgb Hct MCV MCH MCHC RDW Plt Count MPV Immature Gran % (Auto) Neut % (Auto) Lymph % (Auto) [place] % (Auto) Eos % (Auto) Baso % (Auto) Lymph # (Auto) [place] # (Auto) Eos # (Auto) Baso # (Auto) Abs Immat Gran (auto) Absolute Neuts (auto) Absolute Nucleated RBC Nucleated RBC % Sodium Potassium Chloride Carbon Dioxide Anion Gap BUN Creatinine Estim Creat Clear Calc Estimated GFR Glucose POC Capillary Glucose 97 114 H 85 Calcium Phosphorus Magnesium Total Bilirubin AST ALT Alkaline Phosphatase Total Protein Albumin 12/01/24 12/01/24 07:00 08:13 WBC 16.4 H RBC 3.32 L Hgb 9.3 L Hct 29.2 L MCV 88.0 MCH 28.0 MCHC 31.8 L RDW 14.9 H Plt Count 521 H MPV 9.4 Immature Gran % (Auto) 1.7 H Neut % (Auto) 82.8 H Lymph % (Auto) 9.6 L [place] % (Auto) 5.4 Eos % (Auto) 0.1 Baso % (Auto) 0.4 Lymph # (Auto) 1.57 [place]ran # (Auto) 0.9 H Eos # (Auto) 0.0 Baso # (Auto) 0.1 Abs Immat Gran (auto) 0.27 H Absolute Neuts (auto) 13.6 H Absolute Nucleated RBC 0.000 Nucleated RBC % 0.0 Sodium 140 Potassium 3.0 L Chloride 105 Carbon Dioxide 27 Anion Gap 8 BUN 32 H Creatinine 2.68 H Estim Creat Clear Calc 17 Estimated GFR 24 L Glucose 75 POC Capillary Glucose 80 Calcium 8.0 L Phosphorus 4.3 Magnesium 1.8 Total Bilirubin 0.4 AST 29 ALT 13 Alkaline Phosphatase 105 Total Protein 6.0 L Albumin 2.8 L Quality VTE Prophylaxis VTE prophylaxis: mechanical ordered and pharmacologic ordered
[2024-12-01] MEDS: POTASSIUM CHLORIDE 20 MEQ PACKET (FOR LIQUID) 40 MEQ PO (11:27)
[2024-12-01] MEDS: POTASSIUM CHLORIDE INJ 40 MEQ in SODIUM CHLORIDE 0.9% IV 500 ML 130 MEQ IVPB (11:28)
[2024-12-01] MEDS: MAGNESIUM SULF 1 GM/D5W 100 ML 1 GM/100 ML BAG IVPB (11:28)
[2024-12-01 11:45] LABS: Glucose Point of Care 105 mg/dl (65-105)
[2024-12-01] MEDS: LOPERAMIDE HCL 2 MG CAPSULE PO (15:17)
[2024-12-01 17:10] LABS: Glucose Point of Care 77 mg/dl (65-105)
[2024-12-01] MEDS: MIRTAZAPINE 15 MG TABLET PO (21:21)
[2024-12-02 01:08] LABS: Glucose Point of Care 83 mg/dl (65-105)
[2024-12-02 06:11] VITALS: BP 170/93; RESP 18; TEMP 36.6
[2024-12-02 07:08] LABS: Basophils Absolute Auto 0.1 K/mm3 (0.0-0.1); Basophils Percent Auto 0.3 % (0.2-1.2); Eosinophils Percent Auto 0.1 % (0-4.4); Hematocrit 31.5 % (42.0-52.0); Hemoglobin 9.8 g/dL (14.0-18.0); Immature Granulocyte Absolute 0.23 K/mm3 (0.00-0.031); Immature Granulocyte Percent A 1.2 % (0-0.5); Mean Corpuscular HGB Conc 31.1 g/dl (32-36); Mean Corpuscular Hemoglobin 27.6 pg (26-34); Mean Corpuscular Volume 88.7 fl (80-100); Mean Platelet Volume 9.8 fl (7.4-10.4); Neutrophils Absolute Auto 16.6 K/mm3 (1.3-6.7); Neutrophils Percent Auto 83.4 % (45.5-73.1); Platelet Count Result 540 k/mm3 (150-375); Red Blood Count 3.55 M/mm3 (4.6-6.20); Red Cell Distribution Width 14.9 % (11.5-14.5); White Blood Count 19.9 K/mm3 (4.5-10.0)
[2024-12-02] MEDS: ACETYLCYSTEINE 20% INHAL SOLN 800 MG/4 ML VIAL 200 MG INHALATION (07:14)
[2024-12-02 07:15] VITALS: PULSE 75; RESP 18; O2SAT 91
[2024-12-02] MEDS: ALBUTEROL SULFATE NEB 2.5 MG/3 ML INH INHALATION (07:15)
[2024-12-02 07:25] VITALS: PULSE 78; RESP 18
[2024-12-02 07:45] LABS: Alanine Aminotransferase 13 U/L (6-50); Albumin Level 2.9 g/dL (3.5-5.1); Alkaline Phosphatase 116 U/L (38-126); Anion Gap 9 mmol/L (4-12); Aspartate Amino Transferase 27 U/L (17-59); Bilirubin,Total 0.6 mg/dL (0.2-1.3); Blood Urea Nitrogen 34 mg/dL (9-20); Calcium 7.8 mg/dL (8.4-10.2); Carbon Dioxide 27 mmol/L (22-30); Chloride 103 mmol/L (98-107); Estimated CRCL calculation 19 ml/min; Estimated Glomerular Filt Rate 26; Glucose 78 mg/dL (65-110); Magnesium 2.1 mg/dL (1.6-2.3); Phosphorus 3.8 mg/dL (2.5-4.5); Potassium 3.3 mmol/L (3.4-5.0); Sodium 139 mmol/L (137-145)
[2024-12-02 08:11] LABS: Glucose Point of Care 74 mg/dl (65-105)
[2024-12-02] MEDS: amLODIPine BESYLATE 10 MG TABLET PO (09:13)
[2024-12-02] MEDS: THIAMINE HCL 200 MG/2 ML VIAL 100 MG IV PUSH (09:13)
[2024-12-02] MEDS: FUROSEMIDE INJ 40 MG/4 ML VIAL 20 MG IV PUSH ×2 (09:13→17:31)
[2024-12-02] MEDS: PANTOPRAZOLE SODIUM IV 40 MG VIAL IV PUSH ×2 (09:13→21:29)
[2024-12-02] MEDS: PSYLLIUM POWDER PACKET 1 PACKET PO (09:13)
[2024-12-02] MEDS: ENOXAPARIN 30 MG/0.3 ML SYRINGE SUB-Q (09:13)
[2024-12-02] MEDS: FOLIC ACID 1 MG/0.2 ML INJ IV PUSH (09:37)
[2024-12-02 10:24] LABS: Lactic Acid Reflex 0.7 mmol/L (0.7-2.0)
[2024-12-02 11:53] LABS: Glucose Point of Care 78 mg/dl (65-105)
--- NOTE | 2024-12-02 12:26 | PM.IMPN ---
Progress Note: A&P Assessment and Plan (1) Metabolic acidosis: Code(s): E87.20 - Acidosis, unspecified Status: Acute Assessment and Plan: resolved (2) DEBI (acute kidney injury): Code(s): N17.9 - Acute kidney failure, unspecified Status: Acute Assessment and Plan: Creatinine trending up Kidney ultrasound medical disease Cr 4.2 to 2.44, baseline normal Nephrology following (3) Perforated gastric ulcer: Qualifiers: Gastric ulcer chronicity: acute Qualified Code(s): K25.1 - Acute gastric ulcer with perforation Code(s): K25.5 - Chronic or unspecified gastric ulcer with perforation Status: Acute Assessment and Plan: Continue with Protonix and monitor hgb (4) COPD (chronic obstructive pulmonary disease): Code(s): J44.9 - Chronic obstructive pulmonary disease, unspecified Status: Acute Assessment and Plan: Stable on current medications. Will continue current treatment. (5) Sepsis: Code(s): A41.9 - Sepsis, unspecified organism Status: Acute Assessment and Plan: Completed antibiotics (6) Pneumonia: Code(s): J18.9 - Pneumonia, unspecified organism Status: Acute Assessment and Plan: Completed antibiotics pneumonia resolved Repeat CXR showed pulm edema and Pleural effusion now on lasix (7) Acute hypoxic respiratory failure: Code(s): J96.01 - Acute respiratory failure with hypoxia Status: Acute Assessment and Plan: resolved CXR showed pulm edema and pleural effusion continue Lasix 20mg bid and monitor renal function ECHO from june normal function monitor (8) Sepsis associated hypotension: Code(s): A41.9 - Sepsis, unspecified organism; I95.9 - Hypotension, unspecified Status: Acute Assessment and Plan: completed antibiotics (9) EtOH dependence: Code(s): F10.20 - Alcohol dependence, uncomplicated Status: Acute Assessment and Plan: Counselling given Plan Diarrhea Stool culture and c diff negative Likely from pureed diet started on PRN imodium CT AP pending monitor leukocytosis Worsening despite no evidence of infection CXR done several days ago showed pulm edema and patient has responded to lasix and off oxygen Lactic acid normal CT AP and Cytometry ordered follow up Code status full DVT prophylaxis on Sq Lovenox PT/OT following Awaiting placement to [facility] Subjective Date/time seen: 12/02/24 12:26 Interval history: Patient comfortable at bedside Renal function continues to improve on Lasix 20mg bid Patient now off Oxygen however leukocytosis continues trending up and lactic acid today negative CT Abd pelvis ordered stat, along with cytometry Review of Systems Review of Systems: Pt with a dry throat not talking loudly with ng tube in situ on tube feeds looks weak and tired ROS unobtainable: Yes unobtainable due to endotracheal tube, unobtainable due to medical condition and unobtainable due to mental status Exam Narrative: General: More alert toady Lungs/Chest: Trachea central Coarse BS B/L, No crackles or wheezing. Cardiac: RRR. Normal S1 S2. No murmurs Abdomen: Decreased but present bowel sounds. HARLEY drain in place. Soft. Tender to palpation as patient grimaces on exam. Extremities: No clubbing, cyanosis or edema. Warm : Shen in place Neurologic: Patient is able to move all 4 extremities spontaneously. Objective Data Vital Signs Vital Signs: Vital Signs - 24 hr 12/01/24 14:00 12/01/24 21:24 12/02/24 06:11 Temperature 98.7 F 98.1 F 97.9 F Pulse Rate 77 78 Respiratory Rate 16 20 18 Blood Pressure 162/99 H 143/87 H 170/93 H Pulse Oximetry 94 94 Oxygen Delivery 12/02/24 07:15 12/02/24 07:15 12/02/24 07:25 Temperature Pulse Rate 75 75 78 Respiratory Rate 18 18 18 Blood Pressure Pulse Oximetry 91 Oxygen Delivery Room Air Intake/Output Intake/Output: Intake & Output 11/29/24 11/30/24 12/01/24 12/02/24 23:59 23:59 23:59 23:59 Intake Total 480 480 930 600 Output Total 275 2100 1050 Balance 480 115 -4745 -858 Meds/Results Medications: Active Medications Generic Name Dose Route Start Last Admin Trade Name Freq PRN Reason Stop Dose Admin Acetaminophen 650 mg 11/06/24 14:48 11/07/24 19:10 Acetaminophen 650 Mg Suppository RECTAL 650 mg Q4H PRN Administration Mild Pain (1-3) or Fever Acetaminophen 650 mg 11/14/24 15:21 Acetaminophen Elixir 325 Mg/10.15 Ml Udc FEED TUBE Q4H PRN Headache, Fever, Mild Pain Acetylcysteine 200 mg 11/09/24 20:00 12/02/24 07:14 Acetylcysteine 20% Inhal Soln 800 Mg/4 Ml Vial INHALATION 200 mg Q12HRT SOURAV Administration Albuterol 2.5 mg 11/09/24 15:38 12/02/24 07:15 Albuterol Sulfate Neb 2.5 Mg/3 Ml Inh INHALATION 2.5 mg Q12HR PRN Administration Shortness Of Breath Amlodipine Besylate 10 mg 12/02/24 09:00 12/02/24 09:13 Amlodipine Besylate 10 Mg Tablet PO 10 mg DAILY SOURAV Administration Dextrose 12.5 gm 11/06/24 07:40 11/21/24 16:58 Dextrose 50% 25 Gm/50 Ml Syringe IV PUSH 12.5 gm PRN PRN Administration Hypoglycemia Protocol Enoxaparin Sodium 30 mg 11/29/24 09:00 12/02/24 09:13 Enoxaparin 30 Mg/0.3 Ml Syringe SUB-Q 30 mg DAILY SOURAV Administration Folic Acid 1 mg 11/06/24 09:00 12/02/24 09:37 Folic Acid 1 Mg/0.2 Ml Inj IV PUSH 1 mg QAM SOURAV Administration Furosemide 20 mg 11/28/24 17:00 12/02/24 09:13 Furosemide Inj 40 Mg/4 Ml Vial IV PUSH 20 mg BID SOURAV Administration Glucagon 1 mg 11/06/24 07:40 Glucagon For Inj 1 Mg Vial IM PRN PRN Hypoglycemia Protocol Glucose 15 gm 11/06/24 07:40 Glucose Oral Gel 15 Gm Of Glucse In 37.5 Gm Tube PO PRN PRN Hypoglycemia Protocol Hydralazine HCl 10 mg 11/10/24 09:16 11/30/24 06:00 Hydralazine Hcl 20 Mg/Ml Vial IV PUSH 10 mg Q4HR PRN Administration Blood Pressure - High Dextrose 1,000 mls @ 100 mls/hr 11/06/24 07:40 Dextrose 5% 1,000 Ml IVPB PRN PRN Hypoglycemia Protocol Insulin Aspart 2 - 5 units 11/18/24 08:00 12/02/24 08:54 Insulin Aspart (*Bkc) 100 Units/Ml SUB-Q Not Given TIDWM SOURAV Protocol Loperamide HCl 2 mg 12/01/24 10:59 12/01/24 15:17 Loperamide Hcl 2 Mg Capsule PO 2 mg PRN PRN Administration Diarrhea Mirtazapine 15 mg 11/30/24 21:00 12/01/24 21:21 Mirtazapine 15 Mg Tablet PO 15 mg HS SOURAV Administration Naloxone HCl 0.1 mg 11/06/24 00:01 Naloxone Hcl 0.4 Mg/Ml Vial IV PUSH Q2M PRN Opiate Reversal Ondansetron HCl 4 mg 11/06/24 00:01 11/27/24 04:04 Ondansetron Inj 4 Mg/2 Ml Vial IV PUSH 4 mg Q4H PRN Administration Nausea And Vomiting Pantoprazole Sodium 40 mg 11/06/24 09:00 12/02/24 09:13 Pantoprazole Sodium Iv 40 Mg Vial IV PUSH 40 mg Q12HR SOURAV Administration Phenyleph/Shark Oil/[place] Butter 1 supp 11/19/24 18:18 11/19/24 18:33 Phenylephrine Hcl/[place] Butter Supp.Rect (*Bkc) RECTAL 1 supp Q12HR PRN Administration Hemorrhoids Psyllium Hydrophilic Mucilloid 1 packet 11/29/24 09:00 12/02/24 09:13 Psyllium Powder Packet PO 1 packet QAM SOURAV Administration Thiamine HCl 100 mg 11/06/24 09:00 12/02/24 09:13 Thiamine Hcl 200 Mg/2 Ml Vial IV PUSH 100 mg QAM SOURAV Administration Radiology Results: ITS Impressions Head CT 11/05/24 20:50 IMPRESSION: 1. Moderate nonspecific cerebral white matter disease, which likely represents chronic small vessel ischemic disease. 2. 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 Upper GI Series 11/08/24 12:17 IMPRESSION: 1. Slow gastric emptying likely related to postoperative ileus. No extraluminal leakage of contrast. Chest/Abdomen/Pelvis CT 11/10/24 10:38 IMPRESSION: 1. Small volume of ascites with mass effect on right lateral aspect of the liver, likely an exudate. 2. Small pleural effusions. 3. Wall thickening of the descending and sigmoid colon and rectum, consistent with colitis versus interstitial edema. Catheter Placement CT 11/12/24 14:47 IMPRESSION: 1. Successful CT-guided right upper quadrant abdominal abscess drainage yielding yellow fluid. Abdomen X-Ray 11/14/24 11:13 IMPRESSION: Nonspecific, nonobstructive bowel gas pattern. Supportive devices unchanged in position. Bilateral pleural effusions. If clinical suspicion persists, CT examination of the abdomen and pelvis (with intravenous contrast) is suggested for further evaluation. Renal Ultrasound 11/19/24 16:17 IMPRESSION: No hydronephrosis or renal calculi. Findings suggesting medical renal disease. Free fluid within the pelvis. Abdomen/Pelvis CT 11/20/24 14:44 IMPRESSION: Large bilateral pleural effusions, with bilateral lower lobe atelectasis. Infection in the lower lobes is not excluded. Single loop of dilated jejunum, likely representing localized ileus. Early/partial obstruction could appear similarly. Colonic wall thickening, as can be seen with colitis. Moderate ascites. Diffuse edema of the subcutaneous fat and mesenteric fat. Venous Doppler Study 11/22/24 10:28 IMPRESSION: 1. No deep venous thrombosis in either lower limb. Renal Scan Nuclear Medicine 11/23/24 14:21 IMPRESSION: 1. Symmetric kidney function. 2. Delayed activity clearance from both kidneys with continually rising activity curves extending over the 30 minutes of observation and without associated hydronephrosis consistent with nonspecific, nonobstructive nephropathy. Modified Barium Swallow 11/26/24 10:39 IMPRESSION: 1. Trace laryngeal penetration. 2. Please refer to the speech therapy report for recommendations. Chest X-Ray 11/27/24 13:15 Impression: 1: Moderate edema with bilateral pleural effusions. Labs Labs: Laboratory Results - last 24 hr 12/01/24 12/01/24 12/02/24 16:54 21:27 06:35 WBC 19.9 H RBC 3.55 L Hgb 9.8 L Hct 31.5 L MCV 88.7 MCH 27.6 MCHC 31.1 L RDW 14.9 H Plt Count 540 H MPV 9.8 Immature Gran % (Auto) 1.2 H Neut % (Auto) 83.4 H Lymph % (Auto) 10.0 L [place]cd[place] % (Auto) 5.0 Eos % (Auto) 0.1 Baso % (Auto) 0.3 Lymph # (Auto) 2.00 [place] # (Auto) 1.0 H Eos # (Auto) 0.0 Baso # (Auto) 0.1 Abs Immat Gran (auto) 0.23 H Absolute Neuts (auto) 16.6 H Absolute Nucleated RBC 0.000 Nucleated RBC % 0.0 Sodium 139 Potassium 3.3 L Chloride 103 Carbon Dioxide 27 Anion Gap 9 BUN 34 H Creatinine 2.44 H Estim Creat Clear Calc 19 Estimated GFR 26 L Glucose 78 POC Capillary Glucose 77 83 Lactic Acid Calcium 7.8 L Phosphorus 3.8 Magnesium 2.1 Total Bilirubin 0.6 AST 27 ALT 13 Alkaline Phosphatase 116 Total Protein 6.0 L Albumin 2.9 L 12/02/24 12/02/24 12/02/24 08:02 09:59 11:45 WBC RBC Hgb Hct MCV MCH MCHC RDW Plt Count MPV Immature Gran % (Auto) Neut % (Auto) Lymph % (Auto) [place] % (Auto) Eos % (Auto) Baso % (Auto) Lymph # (Auto) [place] # (Auto) Eos # (Auto) Baso # (Auto) Abs Immat Gran (auto) Absolute Neuts (auto) Absolute Nucleated RBC Nucleated RBC % Sodium Potassium Chloride Carbon Dioxide Anion Gap BUN Creatinine Estim Creat Clear Calc Estimated GFR Glucose POC Capillary Glucose 74 78 Lactic Acid 0.7 Calcium Phosphorus Magnesium Total Bilirubin AST ALT Alkaline Phosphatase Total Protein Albumin Quality VTE Prophylaxis VTE prophylaxis: mechanical ordered and pharmacologic ordered
[2024-12-02 13:12] LABS: Toxigenic C. Diff NEGATIVE (NEGATIVE)
--- NOTE | 2024-12-02 13:50 | P.PNNP_ITS ---
Progress Note: A&P Assessment and Plan (1) DEBI (acute kidney injury): Code(s): N17.9 - Acute kidney failure, unspecified Status: Acute Assessment and Plan: * initial insult on admission was due to sepsis hypotension, fluid shifts and hypovolemia * resolved with supportive therapy * second episode noted on 11/18...creatinine increased from 0.9 -> 2.2 -> 3.0mg/dl * etiology of second episode is not entirely clear... * suspect ATN from prerenal azotemia secondary to third spacing given recent abdominal surgery compounded by his diminished oral intake * recent CT scan noted (ascites, pleural effusions, anasarca...) * evaluation to date noted: * renal ultrasound without obstruction but with medical renal disease * urine electrolytes prerenal * UA not indicative of infection * urine eosinophils negative * mild proteinuria noted (~ 1300mg proteinuria) * CPK low * renal scan suggestive of ATN * on low dose diuresis (lasix 20mg IV bid) given imaging demonstrating anasarca (CXR and CT scan) * Creatinine continues improve in spite of the diuretics. * Will continue current therapy (2) Perforated gastric ulcer: Qualifiers: Gastric ulcer chronicity: acute Qualified Code(s): K25.1 - Acute gastric ulcer with perforation Code(s): K25.5 - Chronic or unspecified gastric ulcer with perforation Status: Acute Assessment and Plan: * s/p exploratory laparotomy, extensive lysis of adhesions, intra-abdominal washout, repair of perforated gastric ulcer with omental patch * completed course of antibiotics * local wound care * Surgery following (3) Hypertension: Code(s): I10 - Essential (primary) hypertension Status: Chronic Assessment and Plan: * Blood pressure is still high. * Echo shows no diastolic dysfunction or other systolic issues. He does have moderate pulmonary hypertension. * He is on amlodipine 10 and p.r.n. hydralazine. * He is getting diuresed as well * He probably needs a long-lasting diuretic will add hydrochlorothiazide which can stay on long-term. Recheck a chest x-ray to see if he still needs the loop diuretic. He would not need both long-term. (4) COPD (chronic obstructive pulmonary disease): Code(s): J44.9 - Chronic obstructive pulmonary disease, unspecified Status: Acute Assessment and Plan: * not in exacerbation * bronchodilators as needed (5) Severe protein-calorie malnutrition: Code(s): E43 - Unspecified severe protein-calorie malnutrition Status: Acute Assessment and Plan: * on dronabinol 5mg bid * advance diet as tolerated (6) EtOH dependence: Code(s): F10.20 - Alcohol dependence, uncomplicated Status: Acute Assessment and Plan: * known history * continue thiamine and folic acid Will continue to follow. Subjective Date/time seen: 12/02/24 13:50 Interval history: Patient is alert. Feeling well. Eating his lunch. Exam Narrative: General: thin and elderly male in NAD Heart: normal S1 and S2; no rub or gallop Lungs: clear anteriorly; decreased at bases Abdomen: mild TTP and distension; decreased bowel sounds Extremities: no edema Skin: No rash Objective Data Vital Signs Vital Signs: Vital Signs - 24 hr 12/01/24 14:00 12/01/24 21:24 12/02/24 06:11 Temperature 98.7 F 98.1 F 97.9 F Pulse Rate 77 78 Respiratory Rate 16 20 18 Blood Pressure 162/99 H 143/87 H 170/93 H Pulse Oximetry 94 94 Oxygen Delivery 12/02/24 07:15 12/02/24 07:15 12/02/24 07:25 Temperature Pulse Rate 75 75 78 Respiratory Rate 18 18 18 Blood Pressure Pulse Oximetry 91 Oxygen Delivery Room Air 12/02/24 08:00 Temperature Pulse Rate Respiratory Rate Blood Pressure Pulse Oximetry Oxygen Delivery Room Air Intake/Output Intake/Output: Intake & Output 11/29/24 11/30/24 12/01/24 12/02/24 23:59 23:59 23:59 23:59 Intake Total 480 480 930 600 Output Total 275 2100 1050 Balance 480 205 1170 -450 Meds/Results Medications: Active Medications Generic Name Dose Route Start Last Admin Trade Name Freq PRN Reason Stop Dose Admin Acetaminophen 650 mg 11/06/24 14:48 11/07/24 19:10 Acetaminophen 650 Mg Suppository RECTAL 650 mg Q4H PRN Administration Mild Pain (1-3) or Fever Acetaminophen 650 mg 11/14/24 15:21 Acetaminophen Elixir 325 Mg/10.15 Ml Udc FEED TUBE Q4H PRN Headache, Fever, Mild Pain Acetylcysteine 200 mg 11/09/24 20:00 12/02/24 07:14 Acetylcysteine 20% Inhal Soln 800 Mg/4 Ml Vial INHALATION 200 mg Q12HRT SOURAV Administration Albuterol 2.5 mg 11/09/24 15:38 12/02/24 07:15 Albuterol Sulfate Neb 2.5 Mg/3 Ml Inh INHALATION 2.5 mg Q12HR PRN Administration Shortness Of Breath Amlodipine Besylate 10 mg 12/02/24 09:00 12/02/24 09:13 Amlodipine Besylate 10 Mg Tablet PO 10 mg DAILY SOURAV Administration Dextrose 12.5 gm 11/06/24 07:40 11/21/24 16:58 Dextrose 50% 25 Gm/50 Ml Syringe IV PUSH 12.5 gm PRN PRN Administration Hypoglycemia Protocol Enoxaparin Sodium 30 mg 11/29/24 09:00 12/02/24 09:13 Enoxaparin 30 Mg/0.3 Ml Syringe SUB-Q 30 mg DAILY SOURAV Administration Folic Acid 1 mg 11/06/24 09:00 12/02/24 09:37 Folic Acid 1 Mg/0.2 Ml Inj IV PUSH 1 mg QAM SOURAV Administration Furosemide 20 mg 11/28/24 17:00 12/02/24 09:13 Furosemide Inj 40 Mg/4 Ml Vial IV PUSH 20 mg BID SOURAV Administration Glucagon 1 mg 11/06/24 07:40 Glucagon For Inj 1 Mg Vial IM PRN PRN Hypoglycemia Protocol Glucose 15 gm 11/06/24 07:40 Glucose Oral Gel 15 Gm Of Glucse In 37.5 Gm Tube PO PRN PRN Hypoglycemia Protocol Hydralazine HCl 10 mg 11/10/24 09:16 11/30/24 06:00 Hydralazine Hcl 20 Mg/Ml Vial IV PUSH 10 mg Q4HR PRN Administration Blood Pressure - High Dextrose 1,000 mls @ 100 mls/hr 11/06/24 07:40 Dextrose 5% 1,000 Ml IVPB PRN PRN Hypoglycemia Protocol Insulin Aspart 2 - 5 units 11/18/24 08:00 12/02/24 12:37 Insulin Aspart (*Bkc) 100 Units/Ml SUB-Q Not Given [facility] Protocol Loperamide HCl 2 mg 12/01/24 10:59 12/01/24 15:17 Loperamide Hcl 2 Mg Capsule PO 2 mg PRN PRN Administration Diarrhea Mirtazapine 15 mg 11/30/24 21:00 12/01/24 21:21 Mirtazapine 15 Mg Tablet PO 15 mg HS SOURAV Administration Naloxone HCl 0.1 mg 11/06/24 00:01 Naloxone Hcl 0.4 Mg/Ml Vial IV PUSH Q2M PRN Opiate Reversal Ondansetron HCl 4 mg 11/06/24 00:01 11/27/24 04:04 Ondansetron Inj 4 Mg/2 Ml Vial IV PUSH 4 mg Q4H PRN Administration Nausea And Vomiting Pantoprazole Sodium 40 mg 11/06/24 09:00 12/02/24 09:13 Pantoprazole Sodium Iv 40 Mg Vial IV PUSH 40 mg Q12HR SOURAV Administration Phenyleph/Shark Oil/[place] Butter 1 supp 11/19/24 18:18 11/19/24 18:33 Phenylephrine Hcl/[place] Butter Supp.Rect (*Bkc) RECTAL 1 supp Q12HR PRN Administration Hemorrhoids Psyllium Hydrophilic Mucilloid 1 packet 11/29/24 09:00 12/02/24 09:13 Psyllium Powder Packet PO 1 packet [facility] Administration Thiamine HCl 100 mg 11/06/24 09:00 12/02/24 09:13 Thiamine Hcl 200 Mg/2 Ml Vial IV PUSH 100 mg [facility] Administration Radiology Results: ITS Impressions Head CT 11/05/24 20:50 IMPRESSION: 1. Moderate nonspecific cerebral white matter disease, which likely represents chronic small vessel ischemic disease. 2. 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 Upper GI Series 11/08/24 12:17 IMPRESSION: 1. Slow gastric emptying likely related to postoperative ileus. No extraluminal leakage of contrast. Chest/Abdomen/Pelvis CT 11/10/24 10:38 IMPRESSION: 1. Small volume of ascites with mass effect on right lateral aspect of the liver, likely an exudate. 2. Small pleural effusions. 3. Wall thickening of the descending and sigmoid colon and rectum, consistent with colitis versus interstitial edema. Catheter Placement CT 11/12/24 14:47 IMPRESSION: 1. Successful CT-guided right upper quadrant abdominal abscess drainage yielding yellow fluid. Abdomen X-Ray 11/14/24 11:13 IMPRESSION: Nonspecific, nonobstructive bowel gas pattern. Supportive devices unchanged in position. Bilateral pleural effusions. If clinical suspicion persists, CT examination of the abdomen and pelvis (with intravenous contrast) is suggested for further evaluation. Renal Ultrasound 11/19/24 16:17 IMPRESSION: No hydronephrosis or renal calculi. Findings suggesting medical renal disease. Free fluid within the pelvis. Abdomen/Pelvis CT 11/20/24 14:44 IMPRESSION: Large bilateral pleural effusions, with bilateral lower lobe atelectasis. Infection in the lower lobes is not excluded. Single loop of dilated jejunum, likely representing localized ileus. Early/partial obstruction could appear similarly. Colonic wall thickening, as can be seen with colitis. Moderate ascites. Diffuse edema of the subcutaneous fat and mesenteric fat. Venous Doppler Study 11/22/24 10:28 IMPRESSION: 1. No deep venous thrombosis in either lower limb. Renal Scan Nuclear Medicine 11/23/24 14:21 IMPRESSION: 1. Symmetric kidney function. 2. Delayed activity clearance from both kidneys with continually rising activity curves extending over the 30 minutes of observation and without associated hydronephrosis consistent with nonspecific, nonobstructive nephropathy. Modified Barium Swallow 11/26/24 10:39 IMPRESSION: 1. Trace laryngeal penetration. 2. Please refer to the speech therapy report for recommendations. Chest X-Ray 11/27/24 13:15 Impression: 1: Moderate edema with bilateral pleural effusions. Labs Labs: Laboratory Results - last 24 hr 12/01/24 12/01/24 12/02/24 16:54 21:27 06:35 WBC 19.9 H RBC 3.55 L Hgb 9.8 L Hct 31.5 L MCV 88.7 MCH 27.6 MCHC 31.1 L RDW 14.9 H Plt Count 540 H MPV 9.8 Immature Gran % (Auto) 1.2 H Neut % (Auto) 83.4 H Lymph % (Auto) 10.0 L Gregory % (Auto) 5.0 Eos % (Auto) 0.1 Baso % (Auto) 0.3 Lymph # (Auto) 2.00 Gregory # (Auto) 1.0 H Eos # (Auto) 0.0 Baso # (Auto) 0.1 Abs Immat Gran (auto) 0.23 H Absolute Neuts (auto) 16.6 H Absolute Nucleated RBC 0.000 Nucleated RBC % 0.0 Sodium 139 Potassium 3.3 L Chloride 103 Carbon Dioxide 27 Anion Gap 9 BUN 34 H Creatinine 2.44 H Estim Creat Clear Calc 19 Estimated GFR 26 L Glucose 78 POC Capillary Glucose 77 83 Lactic Acid Calcium 7.8 L Phosphorus 3.8 Magnesium 2.1 Total Bilirubin 0.6 AST 27 ALT 13 Alkaline Phosphatase 116 Total Protein 6.0 L Albumin 2.9 L C. difficile (PCR) 12/02/24 12/02/24 12/02/24 08:02 09:59 11:45 WBC RBC Hgb Hct MCV MCH MCHC RDW Plt Count MPV Immature Gran % (Auto) Neut % (Auto) Lymph % (Auto) Gregory % (Auto) Eos % (Auto) Baso % (Auto) Lymph # (Auto) Gregory # (Auto) Eos # (Auto) Baso # (Auto) Abs Immat Gran (auto) Absolute Neuts (auto) Absolute Nucleated RBC Nucleated RBC % Sodium Potassium Chloride Carbon Dioxide Anion Gap BUN Creatinine Estim Creat Clear Calc Estimated GFR Glucose POC Capillary Glucose 74 78 Lactic Acid 0.7 Calcium Phosphorus Magnesium Total Bilirubin AST ALT Alkaline Phosphatase Total Protein Albumin C. difficile (PCR) 12/02/24 12:07 WBC RBC Hgb Hct MCV MCH MCHC RDW Plt Count MPV Immature Gran % (Auto) Neut % (Auto) Lymph % (Auto) Gregory % (Auto) Eos % (Auto) Baso % (Auto) Lymph # (Auto) Gregory # (Auto) Eos # (Auto) Baso # (Auto) Abs Immat Gran (auto) Absolute Neuts (auto) Absolute Nucleated RBC Nucleated RBC % Sodium Potassium Chloride Carbon Dioxide Anion Gap BUN Creatinine Estim Creat Clear Calc Estimated GFR Glucose POC Capillary Glucose Lactic Acid Calcium Phosphorus Magnesium Total Bilirubin AST ALT Alkaline Phosphatase Total Protein Albumin C. difficile (PCR) Negative
[2024-12-02 14:00] VITALS: BP 145/87; PULSE 81; RESP 16; TEMP 36.8; O2SAT 92
[2024-12-02 17:33] LABS: Glucose Point of Care 98 mg/dl (65-105)
[2024-12-02] MEDS: MIRTAZAPINE 15 MG TABLET PO (21:29)
[2024-12-02 22:00] VITALS: BP 149/87; PULSE 82; RESP 16; TEMP 37; O2SAT 92
--- NOTE | 2024-12-03 02:34 | PCRCNOTE ---
Window of time for administration has passed. See next scheduled administration.
[2024-12-03 02:54] LABS: Glucose Point of Care 112 mg/dl (65-105)
[2024-12-03 05:55] VITALS: BP 142/53; PULSE 60; RESP 16; TEMP 37; O2SAT 95
[2024-12-03 06:52] LABS: Basophils Absolute Auto 0.1 K/mm3 (0.0-0.1); Basophils Percent Auto 0.3 % (0.2-1.2); Hematocrit 29.1 % (42.0-52.0); Hemoglobin 9.3 g/dL (14.0-18.0); Immature Granulocyte Absolute 0.24 K/mm3 (0.00-0.031); Immature Granulocyte Percent A 1.1 % (0-0.5); Lymphocytes Percent Auto 10.1 % (18.3-44.2); Mean Corpuscular Hemoglobin 28.2 pg (26-34); Mean Corpuscular Volume 88.2 fl (80-100); Mean Platelet Volume 9.7 fl (7.4-10.4); Monocytes Percent Auto 4.6 % (2.6-8.5); Neutrophils Absolute Auto 18.2 K/mm3 (1.3-6.7); Neutrophils Percent Auto 83.9 % (45.5-73.1); Platelet Count Result 473 k/mm3 (150-375); Red Cell Distribution Width 14.7 % (11.5-14.5); White Blood Count 21.8 K/mm3 (4.5-10.0)
[2024-12-03 07:05] LABS: Lactic Acid Reflex 0.7 mmol/L (0.7-2.0)
[2024-12-03 07:07] LABS: Alanine Aminotransferase 12 U/L (6-50); Albumin Level 2.8 g/dL (3.5-5.1); Alkaline Phosphatase 116 U/L (38-126); Anion Gap 7 mmol/L (4-12); Aspartate Amino Transferase 23 U/L (17-59); Bilirubin,Total 0.5 mg/dL (0.2-1.3); Blood Urea Nitrogen 37 mg/dL (9-20); Calcium 7.8 mg/dL (8.4-10.2); Carbon Dioxide 29 mmol/L (22-30); Chloride 101 mmol/L (98-107); Estimated CRCL calculation 15 ml/min; Estimated Glomerular Filt Rate 25; Glucose 104 mg/dL (65-110); Magnesium 1.8 mg/dL (1.6-2.3); Sodium 137 mmol/L (137-145)
[2024-12-03 07:52] LABS: Glucose Point of Care 117 mg/dl (65-105)
[2024-12-03 08:15] LABS: Platelet Estimate Adequate (Adequate)
[2024-12-03 08:16] LABS: Anisocytosis 1+; Giant Platelets Present; Hypochromasia 1+; Ovalocytes 1+; Schistocytes None Seen
[2024-12-03 09:10] VITALS: BP 157/80; PULSE 80; RESP 16; O2SAT 93
[2024-12-03] MEDS: PANTOPRAZOLE SODIUM IV 40 MG VIAL IV PUSH ×2 (09:12→21:07)
--- NOTE | 2024-12-03 09:19 | PC.NURSE ---
pt states he wants to take a nap before taking his medications for about an hour and a half
--- NOTE | 2024-12-03 11:01 | P.PNNP_ITS ---
Progress Note: A&P Assessment and Plan (1) DEBI (acute kidney injury): Code(s): N17.9 - Acute kidney failure, unspecified Status: Acute Assessment and Plan: * slow improvement * initial insult on admission was due to sepsis hypotension, fluid shifts and hypovolemia * resolved with supportive therapy * second episode noted on 11/18...creatinine increased from 0.9 -> 2.2 -> 3.0mg/dl...etc * etiology of second episode is not entirely clear... * suspect ATN from prerenal azotemia secondary to third spacing given recent abdominal surgery compounded by his diminished oral intake * recent CT scan noted (ascites, pleural effusions, anasarca...) * evaluation to date noted: * renal ultrasound without obstruction but with medical renal disease * urine electrolytes prerenal * UA not indicative of infection * urine eosinophils negative * mild proteinuria noted (~ 1300mg proteinuria) * CPK low * renal scan suggestive of ATN * creatinine peaked/plateaued at 4.20mg/dl with ongoing improvement noted * renal function tolerating gentle diuresis (IV lasix 20mg bid) * follow trend of repeat labs and UOP (2) Perforated gastric ulcer: Qualifiers: Gastric ulcer chronicity: acute Qualified Code(s): K25.1 - Acute gastric ulcer with perforation Code(s): K25.5 - Chronic or unspecified gastric ulcer with perforation Status: Acute Assessment and Plan: * s/p exploratory laparotomy, extensive lysis of adhesions, intra-abdominal washout, repair of perforated gastric ulcer with omental patch * on antibiotics * local wound care * Surgery following (3) Hypertension: Code(s): I10 - Essential (primary) hypertension Status: Chronic Assessment and Plan: * as noted by recent BP readings * likely an undiagnosed condition * on amlodpine and PRN IV hydralazine * titrate amlodipine and may need another agent * follow trend of hemodynamics (4) COPD (chronic obstructive pulmonary disease): Code(s): J44.9 - Chronic obstructive pulmonary disease, unspecified Status: Acute Assessment and Plan: * not in exacerbation * bronchodilators as needed (5) Severe protein-calorie malnutrition: Code(s): E43 - Unspecified severe protein-calorie malnutrition Status: Acute Assessment and Plan: * on dronabinol 5mg bid * advance diet as tolerated (6) EtOH dependence: Code(s): F10.20 - Alcohol dependence, uncomplicated Status: Acute Assessment and Plan: * known history * no evidence of withdrawal since admission * continue thiamine and folic acid Will continue to follow. L Subjective Date/time seen: 12/03/24 11:01 Interval history: Follow-up for acute kidney injury/acute renal failure. Chart reviewed since last seen -- renal function appears relatively stable if no improving; no apparent distress noted; concerns that WBC still remains elevated if not increasing; no apparent distress noted. Exam 2 Narrative: General: elderly male in NAD Heart: normal S1 and S2; no rub Lungs: clear anteriorly; decreased at bases Abdomen: soft and nontender; positive bowel sounds Extremities: no cyanosis or clubbing; no edema Skin: warm and intact Objective Data Vital Signs Vital Signs: Vital Signs Temp Pulse Resp BP Pulse Ox O2 Del Method 12/03/24 11:00 98.6 F 80 13 152/86 H 90 12/03/24 09:10 80 16 157/80 H 93 12/03/24 08:40 Room Air 12/03/24 05:55 98.6 F 60 16 142/53 H 95 12/02/24 22:00 98.6 F 82 16 149/87 H 92 Intake/Output Intake/Output: Intake & Output 11/30/24 12/01/24 12/02/24 12/03/24 23:59 23:59 23:59 23:59 Intake Total 480 930 890 520 Output Total 275 2100 1950 1350 Balance 205 -1170 -1060 -830 Meds/Results Medications: Active Medications Generic Name Dose Route Start Last Admin Trade Name Freq PRN Reason Stop Dose Admin Acetaminophen 650 mg 11/06/24 14:48 11/07/24 19:10 Acetaminophen 650 Mg Suppository RECTAL 650 mg Q4H PRN Administration Mild Pain (1-3) or Fever Acetaminophen 650 mg 11/14/24 15:21 Acetaminophen Elixir 325 Mg/10.15 Ml Udc FEED TUBE Q4H PRN Headache, Fever, Mild Pain Albuterol 2.5 mg 11/09/24 15:38 12/02/24 07:15 Albuterol Sulfate Neb 2.5 Mg/3 Ml Inh INHALATION 2.5 mg Q12HR PRN Administration Shortness Of Breath Amlodipine Besylate 10 mg 12/02/24 09:00 12/03/24 14:35 Amlodipine Besylate 10 Mg Tablet PO 10 mg DAILY SOURAV Administration Dextrose 12.5 gm 11/06/24 07:40 11/21/24 16:58 Dextrose 50% 25 Gm/50 Ml Syringe IV PUSH 12.5 gm PRN PRN Administration Hypoglycemia Protocol Enoxaparin Sodium 30 mg 11/29/24 09:00 12/03/24 14:35 Enoxaparin 30 Mg/0.3 Ml Syringe SUB-Q Not Given DAILY SOURAV Folic Acid 1 mg 11/06/24 09:00 12/03/24 14:35 Folic Acid 1 Mg/0.2 Ml Inj IV PUSH 1 mg QAM SOURAV Administration Furosemide 20 mg 11/28/24 17:00 12/03/24 17:54 Furosemide Inj 40 Mg/4 Ml Vial IV PUSH 20 mg BID SOURAV Administration Glucagon 1 mg 11/06/24 07:40 Glucagon For Inj 1 Mg Vial IM PRN PRN Hypoglycemia Protocol Glucose 15 gm 11/06/24 07:40 Glucose Oral Gel 15 Gm Of Glucse In 37.5 Gm Tube PO PRN PRN Hypoglycemia Protocol Hydralazine HCl 10 mg 11/10/24 09:16 11/30/24 06:00 Hydralazine Hcl 20 Mg/Ml Vial IV PUSH 10 mg Q4HR PRN Administration Blood Pressure - High Hydrochlorothiazide 25 mg 12/03/24 09:00 12/03/24 14:35 Hydrochlorothiazide 25 Mg Tablet PO 25 mg QAM SOURA[facility] Administration Dextrose 1,000 mls @ 100 mls/hr 11/06/24 07:40 Dextrose 5% 1,000 Ml IVPB PRN PRN Hypoglycemia Protocol Insulin Aspart 2 - 5 units 11/18/24 08:00 12/03/24 17:54 Insulin Aspart (*Bkc) 100 Units/Ml SUB-Q Not Given TIDWM S[facility] Protocol Loperamide HCl 2 mg 12/01/24 10:59 12/01/24 15:17 Loperamide Hcl 2 Mg Capsule PO 2 mg PRN PRN Administration Diarrhea Mirtazapine 15 mg 11/30/24 21:00 12/02/24 21:29 Mirtazapine 15 Mg Tablet PO 15 mg HS SOURAV Administration Naloxone HCl 0.1 mg 11/06/24 00:01 Naloxone Hcl 0.4 Mg/Ml Vial IV PUSH Q2M PRN Opiate Reversal Ondansetron HCl 4 mg 11/06/24 00:01 12/03/24 17:58 Ondansetron Inj 4 Mg/2 Ml Vial IV PUSH 4 mg Q4H PRN Administration Nausea And Vomiting Pantoprazole Sodium 40 mg 11/06/24 09:00 12/03/24 09:12 Pantoprazole Sodium Iv 40 Mg Vial IV PUSH 40 mg Q12HR SOURAV Administration Phenyleph/Shark Oil/[place] Butter 1 supp 11/19/24 18:18 11/19/24 18:33 Phenylephrine Hcl/[place] Butter Supp.Rect (*Bkc) RECTAL 1 supp Q12HR PRN Administration Hemorrhoids Psyllium Hydrophilic Mucilloid 1 packet 11/29/24 09:00 12/03/24 14:36 Psyllium Powder Packet PO 1 packet QAM [facility] Administration Thiamine HCl 100 mg 11/06/24 09:00 12/03/24 14:36 Thiamine Hcl 200 Mg/2 Ml Vial IV PUSH 100 mg QAM SOURAV Administration Radiology Results: ITS Impressions Head CT 11/05/24 20:50 IMPRESSION: 1. Moderate nonspecific cerebral white matter disease, which likely represents chronic small vessel ischemic disease. 2. 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 Upper GI Series 11/08/24 12:17 IMPRESSION: 1. Slow gastric emptying likely related to postoperative ileus. No extraluminal leakage of contrast. Catheter Placement CT 11/12/24 14:47 IMPRESSION: 1. Successful CT-guided right upper quadrant abdominal abscess drainage yielding yellow fluid. Abdomen X-Ray 11/14/24 11:13 IMPRESSION: Nonspecific, nonobstructive bowel gas pattern. Supportive devices unchanged in position. Bilateral pleural effusions. If clinical suspicion persists, CT examination of the abdomen and pelvis (with intravenous contrast) is suggested for further evaluation. Renal Ultrasound 11/19/24 16:17 IMPRESSION: No hydronephrosis or renal calculi. Findings suggesting medical renal disease. Free fluid within the pelvis. Abdomen/Pelvis CT 11/20/24 14:44 IMPRESSION: Large bilateral pleural effusions, with bilateral lower lobe atelectasis. Infection in the lower lobes is not excluded. Single loop of dilated jejunum, likely representing localized ileus. Early/partial obstruction could appear similarly. Colonic wall thickening, as can be seen with colitis. Moderate ascites. Diffuse edema of the subcutaneous fat and mesenteric fat. Venous Doppler Study 11/22/24 10:28 IMPRESSION: 1. No deep venous thrombosis in either lower limb. Renal Scan Nuclear Medicine 11/23/24 14:21 IMPRESSION: 1. Symmetric kidney function. 2. Delayed activity clearance from both kidneys with continually rising activity curves extending over the 30 minutes of observation and without associated hydronephrosis consistent with nonspecific, nonobstructive nephropathy. Modified Barium Swallow 11/26/24 10:39 IMPRESSION: 1. Trace laryngeal penetration. 2. Please refer to the speech therapy report for recommendations. Chest X-Ray 11/27/24 13:15 Impression: 1: Moderate edema with bilateral pleural effusions. Chest/Abdomen/Pelvis CT 12/02/24 14:47 IMPRESSION: Redemonstration of subcapsular fluid collections within both the liver and spleen (as detailed above) for which abscess formation is suspected. Both collections are amenable to percutaneous drainage. Bilateral large pleural effusions, with adjacent consolidation, decreased from prior. Labs Labs: Laboratory Tests 12/03/24 06:38 12/03/24 06:38 Lactic Acid 0.7 Calcium 7.8 L Magnesium 1.8 Total Bilirubin 0.5 AST 23 ALT 12 Alkaline Phosphatase 116 Total Protein 6.0 L Albumin 2.8 L
[2024-12-03 11:22] LABS: Glucose Point of Care 94 mg/dl (65-105)
--- NOTE | 2024-12-03 12:33 | PC.NURSE ---
pt eating a light lunch states he does not want meds with meal will take them after, will continue to encourage him to take medications
[2024-12-03 14:00] VITALS: BP 152/86; PULSE 80; RESP 13; TEMP 37; O2SAT 90
[2024-12-03] MEDS: amLODIPine BESYLATE 10 MG TABLET PO (14:35)
[2024-12-03] MEDS: hydroCHLOROthiazide 25 MG TABLET PO (14:35)
[2024-12-03] MEDS: FOLIC ACID 1 MG/0.2 ML INJ IV PUSH (14:35)
[2024-12-03] MEDS: POTASSIUM CHLORIDE 20 MEQ PACKET (FOR LIQUID) 40 MEQ PO (14:36)
[2024-12-03] MEDS: FUROSEMIDE INJ 40 MG/4 ML VIAL 20 MG IV PUSH ×2 (14:36→17:54)
[2024-12-03] MEDS: THIAMINE HCL 200 MG/2 ML VIAL 100 MG IV PUSH (14:36)
[2024-12-03] MEDS: PSYLLIUM POWDER PACKET 1 PACKET PO (14:36)
--- NOTE | 2024-12-03 16:14 | P.PNIM_ITS ---
Progress Note: A&P Assessment and Plan (1) Metabolic acidosis: Code(s): E87.20 - Acidosis, unspecified Status: Acute Assessment and Plan: resolved (2) DEBI (acute kidney injury): Code(s): N17.9 - Acute kidney failure, unspecified Status: Acute Assessment and Plan: Creatinine improving Nephrology following (3) Perforated gastric ulcer: Qualifiers: Gastric ulcer chronicity: acute Qualified Code(s): K25.1 - Acute gastric ulcer with perforation Code(s): K25.5 - Chronic or unspecified gastric ulcer with perforation Status: Acute Assessment and Plan: Resolved Continue with Protonix and monitor hgb (4) COPD (chronic obstructive pulmonary disease): Code(s): J44.9 - Chronic obstructive pulmonary disease, unspecified Status: Acute Assessment and Plan: Stable on current medications. Will continue current treatment. (5) Sepsis: Code(s): A41.9 - Sepsis, unspecified organism Status: Acute Assessment and Plan: Completed antibiotics (6) Pneumonia: Code(s): J18.9 - Pneumonia, unspecified organism Status: Acute Assessment and Plan: Completed antibiotics pneumonia resolved Repeat CXR showed pulm edema and Pleural effusion now on lasix (7) Acute hypoxic respiratory failure: Code(s): J96.01 - Acute respiratory failure with hypoxia Status: Acute Assessment and Plan: resolved CXR showed pulm edema and pleural effusion continue Lasix 20mg bid and monitor renal function ECHO from june normal function monitor (8) Sepsis associated hypotension: Code(s): A41.9 - Sepsis, unspecified organism; I95.9 - Hypotension, unspecified Status: Acute Assessment and Plan: completed antibiotics (9) EtOH dependence: Code(s): F10.20 - Alcohol dependence, uncomplicated Status: Acute Assessment and Plan: Counselling given Plan Diarrhea Resolved Stool culture and c diff negative Likely from pureed diet started on PRN imodium leukocytosis Worsening despite no evidence of infection CXR done several days ago showed pulm edema and patient has responded to lasix and off oxygen Lactic acid normal Repeated blood culture Code status DNR DVT prophylaxis on Sq Lovenox PT/OT following Awaiting placement to [facility] Subjective Date/time seen: 12/03/24 16:14 Interval history: WBCs keep trending up. Significant improvement in creatinine. No signs of infection. Will repeat blood culture again today. If repeat blood culture shows no growth, possible discharge this week. Review of Systems Review of Systems: Pt with a dry throat not talking loudly Exam Narrative: General: More alert toady Lungs/Chest: Trachea central Coarse BS B/L, No crackles or wheezing. Cardiac: RRR. Normal S1 S2. No murmurs Abdomen: Decreased but present bowel sounds. Extremities: No clubbing, cyanosis or edema. Warm : Shen in place Neurologic: Patient is able to move all 4 extremities spontaneously. Objective Data Vital Signs Vital Signs: Vital Signs - 24 hr 12/02/24 22:00 12/03/24 05:55 12/03/24 08:40 Temperature 98.6 F 98.6 F Pulse Rate 82 60 Respiratory Rate 16 16 Blood Pressure 149/87 H 142/53 H Pulse Oximetry 92 95 Oxygen Delivery Room Air 12/03/24 09:10 12/03/24 14:00 Temperature 98.6 F Pulse Rate 80 80 Respiratory Rate 16 13 Blood Pressure 157/80 H 152/86 H Pulse Oximetry 93 90 Oxygen Delivery Intake/Output Intake/Output: Intake & Output 11/30/24 12/01/24 12/02/24 12/03/24 23:59 23:59 23:59 23:59 Intake Total 480 930 890 220 Output Total 275 2100 1950 850 Balance 637 -4246 -9361 -657 Meds/Results Medications: Active Medications Generic Name Dose Route Start Last Admin Trade Name Freq PRN Reason Stop Dose Admin Acetaminophen 650 mg 11/06/24 14:48 11/07/24 19:10 Acetaminophen 650 Mg Suppository RECTAL 650 mg Q4H PRN Administration Mild Pain (1-3) or Fever Acetaminophen 650 mg 11/14/24 15:21 Acetaminophen Elixir 325 Mg/10.15 Ml Udc FEED TUBE Q4H PRN Headache, Fever, Mild Pain Albuterol 2.5 mg 11/09/24 15:38 12/02/24 07:15 Albuterol Sulfate Neb 2.5 Mg/3 Ml Inh INHALATION 2.5 mg Q12HR PRN Administration Shortness Of Breath Amlodipine Besylate 10 mg 12/02/24 09:00 12/03/24 14:35 Amlodipine Besylate 10 Mg Tablet PO 10 mg DAILY SOURAV Administration Dextrose 12.5 gm 11/06/24 07:40 11/21/24 16:58 Dextrose 50% 25 Gm/50 Ml Syringe IV PUSH 12.5 gm PRN PRN Administration Hypoglycemia Protocol Enoxaparin Sodium 30 mg 11/29/24 09:00 12/03/24 14:35 Enoxaparin 30 Mg/0.3 Ml Syringe SUB-Q Not Given DAILY SOURAV Folic Acid 1 mg 11/06/24 09:00 12/03/24 14:35 Folic Acid 1 Mg/0.2 Ml Inj IV PUSH 1 mg QAM SOURAV Administration Furosemide 20 mg 11/28/24 17:00 12/03/24 14:36 Furosemide Inj 40 Mg/4 Ml Vial IV PUSH 20 mg BID SOURAV Administration Glucagon 1 mg 11/06/24 07:40 Glucagon For Inj 1 Mg Vial IM PRN PRN Hypoglycemia Protocol Glucose 15 gm 11/06/24 07:40 Glucose Oral Gel 15 Gm Of Glucse In 37.5 Gm Tube PO PRN PRN Hypoglycemia Protocol Hydralazine HCl 10 mg 11/10/24 09:16 11/30/24 06:00 Hydralazine Hcl 20 Mg/Ml Vial IV PUSH 10 mg Q4HR PRN Administration Blood Pressure - High Hydrochlorothiazide 25 mg 12/03/24 09:00 12/03/24 14:35 Hydrochlorothiazide 25 Mg Tablet PO 25 mg QAM SOURAV Administration Dextrose 1,000 mls @ 100 mls/hr 11/06/24 07:40 Dextrose 5% 1,000 Ml IVPB PRN PRN Hypoglycemia Protocol Insulin Aspart 2 - 5 units 11/18/24 08:00 12/03/24 12:16 Insulin Aspart (*Bkc) 100 Units/Ml SUB-Q Not Given TIDWM SOURAV Protocol Loperamide HCl 2 mg 12/01/24 10:59 12/01/24 15:17 Loperamide Hcl 2 Mg Capsule PO 2 mg PRN PRN Administration Diarrhea Mirtazapine 15 mg 11/30/24 21:00 12/02/24 21:29 Mirtazapine 15 Mg Tablet PO 15 mg HS SOURAV Administration Naloxone HCl 0.1 mg 11/06/24 00:01 Naloxone Hcl 0.4 Mg/Ml Vial IV PUSH Q2M PRN Opiate Reversal Ondansetron HCl 4 mg 11/06/24 00:01 11/27/24 04:04 Ondansetron Inj 4 Mg/2 Ml Vial IV PUSH 4 mg Q4H PRN Administration Nausea And Vomiting Pantoprazole Sodium 40 mg 11/06/24 09:00 12/03/24 09:12 Pantoprazole Sodium Iv 40 Mg Vial IV PUSH 40 mg Q12HR SOURAV Administration Phenyleph/Shark Oil/[place] Butter 1 supp 11/19/24 18:18 11/19/24 18:33 Phenylephrine Hcl/[place] Butter Supp.Rect (*Bkc) RECTAL 1 supp Q12HR PRN Administration Hemorrhoids Psyllium Hydrophilic Mucilloid 1 packet 11/29/24 09:00 12/03/24 14:36 Psyllium Powder Packet PO 1 packet QAM SOURAV Administration Thiamine HCl 100 mg 11/06/24 09:00 12/03/24 14:36 Thiamine Hcl 200 Mg/2 Ml Vial IV PUSH 100 mg QAM SOURAV Administration Radiology Results: ITS Impressions Head CT 11/05/24 20:50 IMPRESSION: 1. Moderate nonspecific cerebral white matter disease, which likely represents chronic small vessel ischemic disease. 2. 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 Upper GI Series 11/08/24 12:17 IMPRESSION: 1. Slow gastric emptying likely related to postoperative ileus. No extraluminal leakage of contrast. Catheter Placement CT 11/12/24 14:47 IMPRESSION: 1. Successful CT-guided right upper quadrant abdominal abscess drainage yielding yellow fluid. Abdomen X-Ray 11/14/24 11:13 IMPRESSION: Nonspecific, nonobstructive bowel gas pattern. Supportive devices unchanged in position. Bilateral pleural effusions. If clinical suspicion persists, CT examination of the abdomen and pelvis (with intravenous contrast) is suggested for further evaluation. Renal Ultrasound 11/19/24 16:17 IMPRESSION: No hydronephrosis or renal calculi. Findings suggesting medical renal disease. Free fluid within the pelvis. Abdomen/Pelvis CT 11/20/24 14:44 IMPRESSION: Large bilateral pleural effusions, with bilateral lower lobe atelectasis. Infection in the lower lobes is not excluded. Single loop of dilated jejunum, likely representing localized ileus. Early/partial obstruction could appear similarly. Colonic wall thickening, as can be seen with colitis. Moderate ascites. Diffuse edema of the subcutaneous fat and mesenteric fat. Venous Doppler Study 11/22/24 10:28 IMPRESSION: 1. No deep venous thrombosis in either lower limb. Renal Scan Nuclear Medicine 11/23/24 14:21 IMPRESSION: 1. Symmetric kidney function. 2. Delayed activity clearance from both kidneys with continually rising activity curves extending over the 30 minutes of observation and without associated hydronephrosis consistent with nonspecific, nonobstructive nephropathy. Modified Barium Swallow 11/26/24 10:39 IMPRESSION: 1. Trace laryngeal penetration. 2. Please refer to the speech therapy report for recommendations. Chest X-Ray 11/27/24 13:15 Impression: 1: Moderate edema with bilateral pleural effusions. Chest/Abdomen/Pelvis CT 12/02/24 14:47 IMPRESSION: Redemonstration of subcapsular fluid collections within both the liver and splee n (as detailed above) for which abscess formation is suspected. Both collections are amenable to percutaneous drainage. Bilateral large pleural effusions, with adjacent consolidation, decreased from prior. Labs Labs: Laboratory Results - last 24 hr 12/02/24 12/02/24 12/03/24 16:29 21:13 06:38 WBC 21.8 H RBC 3.30 L Hgb 9.3 L Hct 29.1 L MCV 88.2 MCH 28.2 MCHC 32.0 RDW 14.7 H Plt Count 473 H MPV 9.7 Immature Gran % (Auto) 1.1 H Neut % (Auto) 83.9 H Lymph % (Auto) 10.1 L [place] % (Auto) 4.6 Eos % (Auto) 0.0 Baso % (Auto) 0.3 Lymph # (Auto) 2.20 [place] # (Auto) 1.0 H Eos # (Auto) 0.0 Baso # (Auto) 0.1 Abs Immat Gran (auto) 0.24 H Absolute Neuts (auto) 18.2 H Absolute Nucleated RBC 0.000 Nucleated RBC % 0.0 Platelet Estimate Adequate Giant Platelets Present Hypochromasia 1+ Anisocytosis 1+ Ovalocytes 1+ Schistocytes None seen Sodium 137 Potassium 3.0 L Chloride 101 Carbon Dioxide 29 Anion Gap 7 BUN 37 H Creatinine 2.60 H Estim Creat Clear Calc 15 Estimated GFR 25 L Glucose 104 POC Capillary Glucose 98 112 H Lactic Acid 0.7 Calcium 7.8 L Magnesium 1.8 Total Bilirubin 0.5 AST 23 ALT 12 Alkaline Phosphatase 116 Total Protein 6.0 L Albumin 2.8 L 12/03/24 12/03/24 07:41 11:15 WBC RBC Hgb Hct MCV MCH MCHC RDW Plt Count MPV Immature Gran % (Auto) Neut % (Auto) Lymph % (Auto) [place] % (Auto) Eos % (Auto) Baso % (Auto) Lymph # (Auto) [place] # (Auto) Eos # (Auto) Baso # (Auto) Abs Immat Gran (auto) Absolute Neuts (auto) Absolute Nucleated RBC Nucleated RBC % Platelet Estimate Giant Platelets Hypochromasia Anisocytosis Ovalocytes Schistocytes Sodium Potassium Chloride Carbon Dioxide Anion Gap BUN Creatinine Estim Creat Clear Calc Estimated GFR Glucose POC Capillary Glucose 117 H 94 Lactic Acid Calcium Magnesium Total Bilirubin AST ALT Alkaline Phosphatase Total Protein Albumin Quality VTE Prophylaxis VTE prophylaxis: mechanical ordered and pharmacologic ordered Hospitalist MIPS Advance Care Plan I have confirmed that the patient's Advanced Care Plan is present, code status is documented, or surrogate decision maker is listed in patient medical record.: Yes Medication Reconciliation I have utilized all available resources to obtain, update and review the patients current medications (includes all prescriptions, OTC, herbals, cannabis, and nutritional supplements).: Yes
[2024-12-03 16:30] LABS: Glucose Point of Care 111 mg/dl (65-105)
[2024-12-03] MEDS: ONDANSETRON INJ 4 MG/2 ML VIAL IV PUSH (17:58)
[2024-12-03] MEDS: MIRTAZAPINE 15 MG TABLET PO (21:07)
[2024-12-03 21:19] VITALS: BP 129/72; PULSE 79; RESP 18; TEMP 36.8; O2SAT 90
[2024-12-04 02:55] LABS: Glucose Point of Care 92 mg/dl (65-105)
[2024-12-04 04:54] VITALS: BP 127/71; PULSE 72; RESP 18; TEMP 37.2; O2SAT 90
[2024-12-04 07:38] LABS: Basophils Absolute Auto 0.1 K/mm3 (0.0-0.1); Basophils Percent Auto 0.4 % (0.2-1.2); Hematocrit 29.1 % (42.0-52.0); Hemoglobin 9.1 g/dL (14.0-18.0); Immature Granulocyte Absolute 0.25 K/mm3 (0.00-0.031); Lymphocytes Absolute Auto 2.26 K/mm3 (0.9-3.2); Mean Corpuscular HGB Conc 31.3 g/dl (32-36); Mean Corpuscular Volume 89.5 fl (80-100); Mean Platelet Volume 10.3 fl (7.4-10.4); Monocytes Percent Auto 4.1 % (2.6-8.5); Neutrophils Absolute Auto 21.4 K/mm3 (1.3-6.7); Neutrophils Percent Auto 85.5 % (45.5-73.1); Platelet Count Result 497 k/mm3 (150-375); Red Blood Count 3.25 M/mm3 (4.6-6.20); Red Cell Distribution Width 14.6 % (11.5-14.5)
[2024-12-04 07:42] LABS: Alanine Aminotransferase 11 U/L (6-50); Alkaline Phosphatase 126 U/L (38-126); Anion Gap 10 mmol/L (4-12); Aspartate Amino Transferase 25 U/L (17-59); Bilirubin,Total 0.5 mg/dL (0.2-1.3); Blood Urea Nitrogen 40 mg/dL (9-20); Calcium 8.3 mg/dL (8.4-10.2); Carbon Dioxide 30 mmol/L (22-30); Chloride 98 mmol/L (98-107); Estimated CRCL calculation 16 ml/min; Estimated Glomerular Filt Rate 26; Glucose 77 mg/dL (65-110); Magnesium 1.9 mg/dL (1.6-2.3); Potassium 3.1 mmol/L (3.4-5.0); Sodium 138 mmol/L (137-145)
[2024-12-04 07:45] LABS: Glucose Point of Care 83 mg/dl (65-105)
[2024-12-04] MEDS: FOLIC ACID 1 MG/0.2 ML INJ IV PUSH (08:22)
[2024-12-04] MEDS: FUROSEMIDE INJ 40 MG/4 ML VIAL 20 MG IV PUSH ×2 (08:26→16:43)
[2024-12-04] MEDS: hydroCHLOROthiazide 25 MG TABLET PO (08:26)
[2024-12-04] MEDS: ENOXAPARIN 30 MG/0.3 ML SYRINGE SUB-Q (08:28)
[2024-12-04] MEDS: PANTOPRAZOLE SODIUM IV 40 MG VIAL IV PUSH ×2 (08:28→21:11)
[2024-12-04] MEDS: THIAMINE HCL 200 MG/2 ML VIAL 100 MG IV PUSH (08:28)
--- NOTE | 2024-12-04 08:47 | PCOTNOTE ---
Attempted to see Patient at this time. Patient refused, stating, not yet, I'm tired, didn't sleep, I will later today .
--- NOTE | 2024-12-04 10:22 | P.PNNP_ITS ---
Progress Note: A&P Assessment and Plan (1) DEBI (acute kidney injury): Code(s): N17.9 - Acute kidney failure, unspecified Status: Acute Assessment and Plan: * slow improvement * initial insult on admission was due to sepsis hypotension, fluid shifts and hypovolemia * resolved with supportive therapy * second episode noted on 11/18...creatinine increased from 0.9 -> 2.2 -> 3.0mg/dl...etc * etiology of second episode is not entirely clear... * suspect ATN from prerenal azotemia secondary to third spacing given recent abdominal surgery compounded by his diminished oral intake * recent CT scan noted (ascites, pleural effusions, anasarca...) * evaluation to date noted: * renal ultrasound without obstruction but with medical renal disease * urine electrolytes prerenal * UA not indicative of infection * urine eosinophils negative * mild proteinuria noted (~ 1300mg proteinuria) * CPK low * renal scan suggestive of ATN * creatinine peaked/plateaued at 4.20mg/dl with ongoing improvement noted * renal function tolerating gentle diuresis (IV lasix 20mg bid) * follow trend of repeat labs and UOP (2) Perforated gastric ulcer: Qualifiers: Gastric ulcer chronicity: acute Qualified Code(s): K25.1 - Acute gastric ulcer with perforation Code(s): K25.5 - Chronic or unspecified gastric ulcer with perforation Status: Acute Assessment and Plan: * s/p exploratory laparotomy, extensive lysis of adhesions, intra-abdominal washout, repair of perforated gastric ulcer with omental patch * on antibiotics * local wound care * Surgery following (3) Hypertension: Code(s): I10 - Essential (primary) hypertension Status: Chronic Assessment and Plan: * as noted by recent BP readings * likely an undiagnosed condition * on amlodpine and PRN IV hydralazine * titrate amlodipine and may need another agent * follow trend of hemodynamics (4) COPD (chronic obstructive pulmonary disease): Code(s): J44.9 - Chronic obstructive pulmonary disease, unspecified Status: Acute Assessment and Plan: * not in exacerbation * bronchodilators as needed (5) Severe protein-calorie malnutrition: Code(s): E43 - Unspecified severe protein-calorie malnutrition Status: Acute Assessment and Plan: * on dronabinol 5mg bid * advance diet as tolerated (6) EtOH dependence: Code(s): F10.20 - Alcohol dependence, uncomplicated Status: Acute Assessment and Plan: * known history * no evidence of withdrawal since admission * continue thiamine and folic acid Will continue to follow. L Subjective Date/time seen: 12/04/24 10:22 Interval history: Follow-up for acute kidney injury/acute renal failure. Recent imaging (CT of A/P) results noted and concerning for possible liver & spleen abscesses; renal function/creatinine continues to improve despite IV diuresis; Surgery to see regarding results of repeat imaging; no apparent distress noted. Exam 2 Narrative: General: elderly very thin male in NAD Heart: normal S1 and S2; no rub or gallop Lungs: clear anteriorly; decreased at bases Abdomen: soft and nontender; positive bowel sounds Extremities: no edema Skin: no rash Objective Data Vital Signs Vital Signs: Vital Signs Temp Pulse Resp BP Pulse Ox O2 Del Method O2 Flow Rate 12/04/24 10:00 98.7 F 78 18 137/76 87 L 12/04/24 08:25 Room Air 12/04/24 04:54 98.9 F 72 18 127/71 90 12/03/24 21:19 98.2 F 79 18 129/72 90 Intake/Output Intake/Output: Intake & Output 12/01/24 12/02/24 12/03/24 12/04/24 23:59 23:59 23:59 23:59 Intake Total 930 890 520 480 Output Total 2100 1950 1350 1000 Balance -1170 -1060 -830 -520 Meds/Results Medications: Active Medications Generic Name Dose Route Start Last Admin Trade Name Freq PRN Reason Stop Dose Admin Acetaminophen 650 mg 11/06/24 14:48 11/07/24 19:10 Acetaminophen 650 Mg Suppository RECTAL 650 mg Q4H PRN Administration Mild Pain (1-3) or Fever Acetaminophen 650 mg 11/14/24 15:21 Acetaminophen Elixir 325 Mg/10.15 Ml Udc FEED TUBE Q4H PRN Headache, Fever, Mild Pain Albuterol 2.5 mg 11/09/24 15:38 12/02/24 07:15 Albuterol Sulfate Neb 2.5 Mg/3 Ml Inh INHALATION 2.5 mg Q12HR PRN Administration Shortness Of Breath Amlodipine Besylate 10 mg 12/02/24 09:00 12/04/24 16:50 Amlodipine Besylate 10 Mg Tablet PO Not Given DAILY SOURAV Dextrose 12.5 gm 11/06/24 07:40 11/21/24 16:58 Dextrose 50% 25 Gm/50 Ml Syringe IV PUSH 12.5 gm PRN PRN Administration Hypoglycemia Protocol Enoxaparin Sodium 30 mg 11/29/24 09:00 12/04/24 08:28 Enoxaparin 30 Mg/0.3 Ml Syringe SUB-Q 30 mg DAILY SOURAV Administration Folic Acid 1 mg 11/06/24 09:00 12/04/24 08:22 Folic Acid 1 Mg/0.2 Ml Inj IV PUSH 1 mg QAM SOURAV Administration Furosemide 20 mg 11/28/24 17:00 12/04/24 16:43 Furosemide Inj 40 Mg/4 Ml Vial IV PUSH 20 mg BID SOURAV Administration Glucagon 1 mg 11/06/24 07:40 Glucagon For Inj 1 Mg Vial IM PRN PRN Hypoglycemia Protocol Glucose 15 gm 11/06/24 07:40 Glucose Oral Gel 15 Gm Of Glucse In 37.5 Gm Tube PO PRN PRN Hypoglycemia Protocol Hydralazine HCl 10 mg 11/10/24 09:16 11/30/24 06:00 Hydralazine Hcl 20 Mg/Ml Vial IV PUSH 10 mg Q4HR PRN Administration Blood Pressure - High Hydrochlorothiazide 25 mg 12/03/24 09:00 12/04/24 08:26 Hydrochlorothiazide 25 Mg Tablet PO 25 mg QAM SOURAV Administration Dextrose 1,000 mls @ 100 mls/hr 11/06/24 07:40 Dextrose 5% 1,000 Ml IVPB PRN PRN Hypoglycemia Protocol Meropenem 500 mg in 100 mls @ 200 mls/hr 12/04/24 18:00 12/04/24 17:28 IVPB 200 mls/hr Q12H SOURAV Administration Insulin Aspart 2 - 5 units 11/18/24 08:00 12/04/24 17:39 Insulin Aspart (*Bkc) 100 Units/Ml SUB-Q Not Given TIDWM SOURAV Protocol Loperamide HCl 2 mg 12/01/24 10:59 12/01/24 15:17 Loperamide Hcl 2 Mg Capsule PO 2 mg PRN PRN Administration Diarrhea Mirtazapine 15 mg 11/30/24 21:00 12/03/24 21:07 Mirtazapine 15 Mg Tablet PO 15 mg HS SOURAV Administration Naloxone HCl 0.1 mg 11/06/24 00:01 Naloxone Hcl 0.4 Mg/Ml Vial IV PUSH Q2M PRN Opiate Reversal Ondansetron HCl 4 mg 11/06/24 00:01 12/03/24 17:58 Ondansetron Inj 4 Mg/2 Ml Vial IV PUSH 4 mg Q4H PRN Administration Nausea And Vomiting Pantoprazole Sodium 40 mg 11/06/24 09:00 12/04/24 08:28 Pantoprazole Sodium Iv 40 Mg Vial IV PUSH 40 mg Q12HR SOURAV Administration Phenyleph/Shark Oil/[place] Butter 1 supp 11/19/24 18:18 11/19/24 18:33 Phenylephrine Hcl/[place] Butter Supp.Rect (*Bkc) RECTAL 1 supp Q12HR PRN Administration Hemorrhoids Psyllium Hydrophilic Mucilloid 1 packet 11/29/24 09:00 12/04/24 16:51 Psyllium Powder Packet PO Not Given QAM SOURAV Thiamine HCl 100 mg 11/06/24 09:00 12/04/24 08:28 Thiamine Hcl 200 Mg/2 Ml Vial IV PUSH 100 mg QAM SOURAV Administration Radiology Results: ITS Impressions Head CT 11/05/24 20:50 IMPRESSION: 1. Moderate nonspecific cerebral white matter disease, which likely represents chronic small vessel ischemic disease. 2. 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 Upper GI Series 11/08/24 12:17 IMPRESSION: 1. Slow gastric emptying likely related to postoperative ileus. No extraluminal leakage of contrast. Catheter Placement CT 11/12/24 14:47 IMPRESSION: 1. Successful CT-guided right upper quadrant abdominal abscess drainage yielding yellow fluid. Abdomen X-Ray 11/14/24 11:13 IMPRESSION: Nonspecific, nonobstructive bowel gas pattern. Supportive devices unchanged in position. Bilateral pleural effusions. If clinical suspicion persists, CT examination of the abdomen and pelvis (with intravenous contrast) is suggested for further evaluation. Renal Ultrasound 11/19/24 16:17 IMPRESSION: No hydronephrosis or renal calculi. Findings suggesting medical renal disease. Free fluid within the pelvis. Abdomen/Pelvis CT 11/20/24 14:44 IMPRESSION: Large bilateral pleural effusions, with bilateral lower lobe atelectasis. Infection in the lower lobes is not excluded. Single loop of dilated jejunum, likely representing localized ileus. Early/partial obstruction could appear similarly. Colonic wall thickening, as can be seen with colitis. Moderate ascites. Diffuse edema of the subcutaneous fat and mesenteric fat. Venous Doppler Study 11/22/24 10:28 IMPRESSION: 1. No deep venous thrombosis in either lower limb. Renal Scan Nuclear Medicine 11/23/24 14:21 IMPRESSION: 1. Symmetric kidney function. 2. Delayed activity clearance from both kidneys with continually rising activity curves extending over the 30 minutes of observation and without associated hydronephrosis consistent with nonspecific, nonobstructive nephropathy. Modified Barium Swallow 11/26/24 10:39 IMPRESSION: 1. Trace laryngeal penetration. 2. Please refer to the speech therapy report for recommendations. Chest/Abdomen/Pelvis CT 12/02/24 14:47 IMPRESSION: Redemonstration of subcapsular fluid collections within both the liver and spleen (as detailed above) for which abscess formation is suspected. Both collections are amenable to percutaneous drainage. Bilateral large pleural effusions, with adjacent consolidation, decreased from prior. Chest X-Ray 12/04/24 15:02 IMPRESSION: 1. Decreasing small bilateral pleural effusions with associated bibasilar atelectasis and/or pneumonia. Labs Labs: Laboratory Tests 12/04/24 07:02 12/04/24 07:02 Calcium 8.3 L Phosphorus 5.0 H Magnesium 1.9 Total Bilirubin 0.5 AST 25 ALT 11 Alkaline Phosphatase 126 Total Protein 7.0 Albumin 3.0 L Microbiology 12/03/24 16:55 Blood Blood Culture - Preliminary 12/03/24 16:55 Blood Blood Culture - Preliminary
[2024-12-04 11:22] LABS: Glucose Point of Care 156 mg/dl (65-105)
--- NOTE | 2024-12-04 11:44 | P.PNIM_ITS ---
Progress Note: A&P Assessment and Plan (1) Metabolic acidosis: Code(s): E87.20 - Acidosis, unspecified Status: Acute Assessment and Plan: resolved (2) DEBI (acute kidney injury): Code(s): N17.9 - Acute kidney failure, unspecified Status: Acute Assessment and Plan: Creatinine improving Nephrology following (3) Perforated gastric ulcer: Qualifiers: Gastric ulcer chronicity: acute Qualified Code(s): K25.1 - Acute gastric ulcer with perforation Code(s): K25.5 - Chronic or unspecified gastric ulcer with perforation Status: Acute Assessment and Plan: Resolved Continue with Protonix and monitor hgb (4) COPD (chronic obstructive pulmonary disease): Code(s): J44.9 - Chronic obstructive pulmonary disease, unspecified Status: Acute Assessment and Plan: Stable on current medications. Will continue current treatment. (5) Sepsis: Code(s): A41.9 - Sepsis, unspecified organism Status: Acute Assessment and Plan: Completed antibiotics (6) Pneumonia: Code(s): J18.9 - Pneumonia, unspecified organism Status: Acute Assessment and Plan: Completed antibiotics pneumonia resolved Repeat CXR showed pulm edema and Pleural effusion now on lasix (7) Acute hypoxic respiratory failure: Code(s): J96.01 - Acute respiratory failure with hypoxia Status: Acute Assessment and Plan: resolved CXR showed pulm edema and pleural effusion continue Lasix 20mg bid and monitor renal function ECHO from june normal function monitor (8) Sepsis associated hypotension: Code(s): A41.9 - Sepsis, unspecified organism; I95.9 - Hypotension, unspecified Status: Acute Assessment and Plan: completed antibiotics (9) EtOH dependence: Code(s): F10.20 - Alcohol dependence, uncomplicated Status: Acute Assessment and Plan: Counselling given Plan Diarrhea Resolved Stool culture and c diff negative Likely from pureed diet started on PRN imodium leukocytosis Worsening despite no evidence of infection WBC continues to rise. Will ask surgery to re-evaluate the re-demonstration of subcapsular fluid collections within both the liver and spleen for which abscess formation is suspected.. Repeat blood culture pending. CXR done several days ago showed pulm edema and patient has responded to lasix and off oxygen Lactic acid normal Repeated blood culture Code status DNR DVT prophylaxis on Sq Lovenox PT/OT following Awaiting placement to [facility] Subjective Date/time seen: 12/04/24 11:44 Interval history: WBC continues to rise. Will ask surgery to re-evaluate the re-demonstration of subcapsular fluid collections within both the liver and spleen for which abscess formation is suspected.. Repeat blood culture pending. Review of Systems Review of Systems: Pt with a dry throat not talking loudly Exam Narrative: General: More alert toady Lungs/Chest: Trachea central Coarse BS B/L, No crackles or wheezing. Cardiac: RRR. Normal S1 S2. No murmurs Abdomen: Decreased but present bowel sounds. Extremities: No clubbing, cyanosis or edema. Warm : Shen in place Neurologic: Patient is able to move all 4 extremities spontaneously. Objective Data Vital Signs Vital Signs: Vital Signs - 24 hr 12/03/24 14:00 12/03/24 21:19 12/04/24 04:54 Temperature 98.6 F 98.2 F 98.9 F Pulse Rate 80 79 72 Respiratory Rate 13 18 18 Blood Pressure 152/86 H 129/72 127/71 Pulse Oximetry 90 90 90 Oxygen Delivery 12/04/24 08:25 Temperature Pulse Rate Respiratory Rate Blood Pressure Pulse Oximetry Oxygen Delivery Room Air Intake/Output Intake/Output: Intake & Output 12/01/24 12/02/24 12/03/24 12/04/24 23:59 23:59 23:59 23:59 Intake Total 930 890 520 480 Output Total 2100 1950 1350 1000 Balance -1170 -1060 -830 -520 Meds/Results Medications: Active Medications Generic Name Dose Route Start Last Admin Trade Name Freq PRN Reason Stop Dose Admin Acetaminophen 650 mg 11/06/24 14:48 11/07/24 19:10 Acetaminophen 650 Mg Suppository RECTAL 650 mg Q4H PRN Administration Mild Pain (1-3) or Fever Acetaminophen 650 mg 11/14/24 15:21 Acetaminophen Elixir 325 Mg/10.15 Ml Udc FEED TUBE Q4H PRN Headache, Fever, Mild Pain Albuterol 2.5 mg 11/09/24 15:38 12/02/24 07:15 Albuterol Sulfate Neb 2.5 Mg/3 Ml Inh INHALATION 2.5 mg Q12HR PRN Administration Shortness Of Breath Amlodipine Besylate 10 mg 12/02/24 09:00 12/04/24 08:26 Amlodipine Besylate 10 Mg Tablet PO 10 mg DAILY SOURAV Administration Dextrose 12.5 gm 11/06/24 07:40 11/21/24 16:58 Dextrose 50% 25 Gm/50 Ml Syringe IV PUSH 12.5 gm PRN PRN Administration Hypoglycemia Protocol Enoxaparin Sodium 30 mg 11/29/24 09:00 12/04/24 08:28 Enoxaparin 30 Mg/0.3 Ml Syringe SUB-Q 30 mg DAILY SOURAV Administration Folic Acid 1 mg 11/06/24 09:00 12/04/24 08:22 Folic Acid 1 Mg/0.2 Ml Inj IV PUSH 1 mg QAM SOURAV Administration Furosemide 20 mg 11/28/24 17:00 12/04/24 08:26 Furosemide Inj 40 Mg/4 Ml Vial IV PUSH 20 mg BID SOURAV Administration Glucagon 1 mg 11/06/24 07:40 Glucagon For Inj 1 Mg Vial IM PRN PRN Hypoglycemia Protocol Glucose 15 gm 11/06/24 07:40 Glucose Oral Gel 15 Gm Of Glucse In 37.5 Gm Tube PO PRN PRN Hypoglycemia Protocol Hydralazine HCl 10 mg 11/10/24 09:16 11/30/24 06:00 Hydralazine Hcl 20 Mg/Ml Vial IV PUSH 10 mg Q4HR PRN Administration Blood Pressure - High Hydrochlorothiazide 25 mg 12/03/24 09:00 12/04/24 08:26 Hydrochlorothiazide 25 Mg Tablet PO 25 mg QAM SOURAV Administration Dextrose 1,000 mls @ 100 mls/hr 11/06/24 07:40 Dextrose 5% 1,000 Ml IVPB PRN PRN Hypoglycemia Protocol Insulin Aspart 2 - 5 units 11/18/24 08:00 12/04/24 11:34 Insulin Aspart (*Bkc) 100 Units/Ml SUB-Q Not Given TIDWM SOURAV Protocol Loperamide HCl 2 mg 12/01/24 10:59 12/01/24 15:17 Loperamide Hcl 2 Mg Capsule PO 2 mg PRN PRN Administration Diarrhea Mirtazapine 15 mg 11/30/24 21:00 12/03/24 21:07 Mirtazapine 15 Mg Tablet PO 15 mg HS SOURAV Administration Naloxone HCl 0.1 mg 11/06/24 00:01 Naloxone Hcl 0.4 Mg/Ml Vial IV PUSH Q2M PRN Opiate Reversal Ondansetron HCl 4 mg 11/06/24 00:01 12/03/24 17:58 Ondansetron Inj 4 Mg/2 Ml Vial IV PUSH 4 mg Q4H PRN Administration Nausea And Vomiting Pantoprazole Sodium 40 mg 11/06/24 09:00 12/04/24 08:28 Pantoprazole Sodium Iv 40 Mg Vial IV PUSH 40 mg Q12HR SOURAV Administration Phenyleph/Shark Oil/[place] Butter 1 supp 11/19/24 18:18 11/19/24 18:33 Phenylephrine Hcl/[place] Butter Supp.Rect (*Bkc) RECTAL 1 supp Q12HR PRN Administration Hemorrhoids Psyllium Hydrophilic Mucilloid 1 packet 11/29/24 09:00 12/04/24 08:29 Psyllium Powder Packet PO 1 packet QAM SOURAV Administration Thiamine HCl 100 mg 11/06/24 09:00 12/04/24 08:28 Thiamine Hcl 200 Mg/2 Ml Vial IV PUSH 100 mg QAM SOURAV Administration Radiology Results: ITS Impressions Head CT 11/05/24 20:50 IMPRESSION: 1. Moderate nonspecific cerebral white matter disease, which likely represents chronic small vessel ischemic disease. 2. 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 Upper GI Series 11/08/24 12:17 IMPRESSION: 1. Slow gastric emptying likely related to postoperative ileus. No extraluminal leakage of contrast. Catheter Placement CT 11/12/24 14:47 IMPRESSION: 1. Successful CT-guided right upper quadrant abdominal abscess drainage yielding yellow fluid. Abdomen X-Ray 11/14/24 11:13 IMPRESSION: Nonspecific, nonobstructive bowel gas pattern. Supportive devices unchanged in position. Bilateral pleural effusions. If clinical suspicion persists, CT examination of the abdomen and pelvis (with intravenous contrast) is suggested for further evaluation. Renal Ultrasound 11/19/24 16:17 IMPRESSION: No hydronephrosis or renal calculi. Findings suggesting medical renal disease. Free fluid within the pelvis. Abdomen/Pelvis CT 11/20/24 14:44 IMPRESSION: Large bilateral pleural effusions, with bilateral lower lobe atelectasis. Infection in the lower lobes is not excluded. Single loop of dilated jejunum, likely representing localized ileus. Early/partial obstruction could appear similarly. Colonic wall thickening, as can be seen with colitis. Moderate ascites. Diffuse edema of the subcutaneous fat and mesenteric fat. Venous Doppler Study 11/22/24 10:28 IMPRESSION: 1. No deep venous thrombosis in either lower limb. Renal Scan Nuclear Medicine 11/23/24 14:21 IMPRESSION: 1. Symmetric kidney function. 2. Delayed activity clearance from both kidneys with continually rising activity curves extending over the 30 minutes of observation and without associated hydronephrosis consistent with nonspecific, nonobstructive nephropathy. Modified Barium Swallow 11/26/24 10:39 IMPRESSION: 1. Trace laryngeal penetration. 2. Please refer to the speech therapy report for recommendations. Chest X-Ray 11/27/24 13:15 Impression: 1: Moderate edema with bilateral pleural effusions. Chest/Abdomen/Pelvis CT 12/02/24 14:47 IMPRESSION: Redemonstration of subcapsular fluid collections within both the liver and spleen (as detailed above) for which abscess formation is suspected. Both collections are amenable to percutaneous drainage. Bilateral large pleural effusions, with adjacent consolidation, decreased from prior. Labs Labs: Laboratory Results - last 24 hr 12/03/24 12/03/24 12/04/24 16:26 21:19 07:02 WBC 25.0 H RBC 3.25 L Hgb 9.1 L Hct 29.1 L MCV 89.5 MCH 28.0 MCHC 31.3 L RDW 14.6 H Plt Count 497 H MPV 10.3 Immature Gran % (Auto) 1.0 H Neut % (Auto) 85.5 H Lymph % (Auto) 9.0 L [place] % (Auto) 4.1 Eos % (Auto) 0.0 Baso % (Auto) 0.4 Lymph # (Auto) 2.26 [place] # (Auto) 1.0 H Eos # (Auto) 0.0 Baso # (Auto) 0.1 Abs Immat Gran (auto) 0.25 H Absolute Neuts (auto) 21.4 H Absolute Nucleated RBC 0.000 Nucleated RBC % 0.0 Sodium 138 Potassium 3.1 L Chloride 98 Carbon Dioxide 30 Anion Gap 10 BUN 40 H Creatinine 2.51 H Estim Creat Clear Calc 16 Estimated GFR 26 L Glucose 77 POC Capillary Glucose 111 H 92 Calcium 8.3 L Phosphorus 5.0 H Magnesium 1.9 Total Bilirubin 0.5 AST 25 ALT 11 Alkaline Phosphatase 126 Total Protein 7.0 Albumin 3.0 L 12/04/24 12/04/24 07:40 11:16 WBC RBC Hgb Hct MCV MCH MCHC RDW Plt Count MPV Immature Gran % (Auto) Neut % (Auto) Lymph % (Auto) [place] % (Auto) Eos % (Auto) Baso % (Auto) Lymph # (Auto) [place] # (Auto) Eos # (Auto) Baso # (Auto) Abs Immat Gran (auto) Absolute Neuts (auto) Absolute Nucleated RBC Nucleated RBC % Sodium Potassium Chloride Carbon Dioxide Anion Gap BUN Creatinine Estim Creat Clear Calc Estimated GFR Glucose POC Capillary Glucose 83 156 H Calcium Phosphorus Magnesium Total Bilirubin AST ALT Alkaline Phosphatase Total Protein Albumin Quality VTE Prophylaxis VTE prophylaxis: mechanical ordered and pharmacologic ordered Hospitalist MIPS Advance Care Plan I have confirmed that the patient's Advanced Care Plan is present, code status is documented, or surrogate decision maker is listed in patient medical record.: Yes Medication Reconciliation I have utilized all available resources to obtain, update and review the patients current medications (includes all prescriptions, OTC, herbals, cannabis, and nutritional supplements).: Yes
[2024-12-04 14:00] VITALS: BP 137/76; PULSE 78; RESP 18; TEMP 37.1; O2SAT 87
[2024-12-04 14:15] VITALS: O2SAT 94
--- NOTE | 2024-12-04 14:38 | PCOTNOTE ---
Patient refused to participate in therapy services at this time. Patient agitated and upset because he has lost the string attached to the bed . Patient making off subject comments not related to conversation or making sense, RN notified and aware.
--- NOTE | 2024-12-04 14:58 | P.PNGS_ITS ---
Progress Note: A&P Assessment and Plan (1) Splenic abscess: Code(s): D73.3 - Abscess of spleen Status: Acute Assessment and Plan: * He is 4 weeks postop following repair perforated gastric ulcer. He has had persistent leukocytosis with his WBC count going up over the past few days. Repeat CT scan showed splenic and liver abscess that are amenable to percutaneous drainage. * Will proceed with CT-guided percutaneous drainage in IR * Discussed with ID pharmacist, who recommends starting IV Meropenem for now. Tailor abx to cultures. (2) Liver abscess: Code(s): K75.0 - Abscess of liver Status: Acute Assessment and Plan: * See plan above. Proceed with CT-guided percutaneous drainage in IR * Start IV Meropenem (3) Perforated gastric ulcer: Qualifiers: Gastric ulcer chronicity: acute Qualified Code(s): K25.1 - Acute gastric ulcer with perforation Code(s): K25.5 - Chronic or unspecified gastric ulcer with perforation Status: Acute Assessment and Plan: * S/p exploratory laparotomy, extensive lysis of adhesions, intra-abdominal washout, repair of perforated gastric ulcer on 11/05/24. (4) Severe protein-calorie malnutrition: Code(s): E43 - Unspecified severe protein-calorie malnutrition Status: Acute Plan I have discussed the patient's case and plan of care with Dr. Rodriguez. Subjective Subjective Date/Time Seen: 12/04/24 14:58 Interval history: This is a 69-year-old man who was admitted for perforated viscus, intra- abdominal abscess, and was taken for exploratory laparotomy, extensive lysis of adhesions, intra-abdominal washout, repair of perforated gastric ulcer on 11/05/2024. He has been admitted since that time and treated with broad- spectrum IV antibiotics. He has received IV Zosyn, vancomycin, and micafungin. He has had issues with persistent leukocytosis and had had percutaneous drainage of an intra-abdominal fluid collection previously that resolved and subsequently had his drain removed. He had been clinically improving and our service was following p.r.n.. We were called today to re-evaluate the patient for splenic abscess and liver abscess. He is currently off all antimicrobials and has had persistent leukocytosis. His white blood cell count has went up over the past few days as high as 25,000. Repeat CT scan of the chest, abdomen, and pelvis on 12/02/2024 showed fluid collections within the liver and spleen for which abscess formation is suspected. Both fluid collections are amenable to percutaneous drainage. He also has bilateral large pleural effusions with a djacent consolidation decreased from prior exam. He is now seen on the medical floor. He denies any abdominal pain. He has been afebrile. He is still not eating well with poor oral intake. This has been an issue since surgery and even prior to surgery. He has a BMI of 14.5 and appears cachectic. No nausea or vomiting. He did get up out of bed with therapy today for the first time in about a week. He sat in the chair for a while but is back in bed now. Exam Const: General: comfortable and no acute distress Nutritional Appearance: cachectic and malnourished Orientation/consciousness: oriented to person and oriented to place GI: Inspection: non-distended, incision (midline incision and drain sites dry and healing well, no erythema) and no visible herniation GI Palp: Yes Soft to palpation, Yes Tenderness to palpation present (GI) (very mild tenderness in the RUQ and RLQ), No Guarding due to palpation present (GI) and No Rebound tenderness present Auscultation: normal bowel sounds Skin: General skin exam: pallor Neuro: General: moves all extremities and no focal motor deficits Extrem: General: no calf tenderness and no edema Psych: Insight: Fair insight present (Psych) Judgement: Fair judgement present (Psych) Objective Data Vital Signs Vital Signs: Vital Signs - 24 hr 12/03/24 21:19 12/04/24 04:54 12/04/24 08:25 Temperature 98.2 F 98.9 F Pulse Rate 79 72 Respiratory Rate 18 18 Blood Pressure 129/72 127/71 Pulse Oximetry 90 90 Oxygen Delivery Room Air Intake/Output Intake/Output: Intake & Output 12/01/24 12/02/24 12/03/24 12/04/24 23:59 23:59 23:59 23:59 Intake Total 930 890 520 480 Output Total 2100 1950 1350 1000 Balance -1170 -1060 -830 -520 Meds/Results Medications: Active Medications Generic Name Dose Route Start Last Admin Trade Name Freq PRN Reason Stop Dose Admin Acetaminophen 650 mg 11/06/24 14:48 11/07/24 19:10 Acetaminophen 650 Mg Suppository RECTAL 650 mg Q4H PRN Administration Mild Pain (1-3) or Fever Acetaminophen 650 mg 11/14/24 15:21 Acetaminophen Elixir 325 Mg/10.15 Ml Udc FEED TUBE Q4H PRN Headache, Fever, Mild Pain Albuterol 2.5 mg 11/09/24 15:38 12/02/24 07:15 Albuterol Sulfate Neb 2.5 Mg/3 Ml Inh INHALATION 2.5 mg Q12HR PRN Administration Shortness Of Breath Amlodipine Besylate 10 mg 12/02/24 09:00 12/04/24 08:26 Amlodipine Besylate 10 Mg Tablet PO 10 mg DAILY SOURAV Administration Dextrose 12.5 gm 11/06/24 07:40 11/21/24 16:58 Dextrose 50% 25 Gm/50 Ml Syringe IV PUSH 12.5 gm PRN PRN Administration Hypoglycemia Protocol Enoxaparin Sodium 30 mg 11/29/24 09:00 12/04/24 08:28 Enoxaparin 30 Mg/0.3 Ml Syringe SUB-Q 30 mg DAILY SOURAV Administration Folic Acid 1 mg 11/06/24 09:00 12/04/24 08:22 Folic Acid 1 Mg/0.2 Ml Inj IV PUSH 1 mg QAM SOURAV Administration Furosemide 20 mg 11/28/24 17:00 12/04/24 08:26 Furosemide Inj 40 Mg/4 Ml Vial IV PUSH 20 mg BID SOURAV Administration Glucagon 1 mg 11/06/24 07:40 Glucagon For Inj 1 Mg Vial IM PRN PRN Hypoglycemia Protocol Glucose 15 gm 11/06/24 07:40 Glucose Oral Gel 15 Gm Of Glucse In 37.5 Gm Tube PO PRN PRN Hypoglycemia Protocol Hydralazine HCl 10 mg 11/10/24 09:16 11/30/24 06:00 Hydralazine Hcl 20 Mg/Ml Vial IV PUSH 10 mg Q4HR PRN Administration Blood Pressure - High Hydrochlorothiazide 25 mg 12/03/24 09:00 12/04/24 08:26 Hydrochlorothiazide 25 Mg Tablet PO 25 mg QAM SOURAV Administration Dextrose 1,000 mls @ 100 mls/hr 11/06/24 07:40 Dextrose 5% 1,000 Ml IVPB PRN PRN Hypoglycemia Protocol Insulin Aspart 2 - 5 units 11/18/24 08:00 12/04/24 11:34 Insulin Aspart (*Bkc) 100 Units/Ml SUB-Q Not Given TIDWM [facility] Protocol Loperamide HCl 2 mg 12/01/24 10:59 12/01/24 15:17 Loperamide Hcl 2 Mg Capsule PO 2 mg PRN PRN Administration Diarrhea Mirtazapine 15 mg 11/30/24 21:00 12/03/24 21:07 Mirtazapine 15 Mg Tablet PO 15 mg HS SOURAV Administration Naloxone HCl 0.1 mg 11/06/24 00:01 Naloxone Hcl 0.4 Mg/Ml Vial IV PUSH Q2M PRN Opiate Reversal Ondansetron HCl 4 mg 11/06/24 00:01 12/03/24 17:58 Ondansetron Inj 4 Mg/2 Ml Vial IV PUSH 4 mg Q4H PRN Administration Nausea And Vomiting Pantoprazole Sodium 40 mg 11/06/24 09:00 12/04/24 08:28 Pantoprazole Sodium Iv 40 Mg Vial IV PUSH 40 mg Q12HR SOURAV Administration Phenyleph/Shark Oil/[place] Butter 1 supp 11/19/24 18:18 11/19/24 18:33 Phenylephrine Hcl/[place] Butter Supp.Rect (*Bkc) RECTAL 1 supp Q12HR PRN Administration Hemorrhoids Psyllium Hydrophilic Mucilloid 1 packet 11/29/24 09:00 12/04/24 08:29 Psyllium Powder Packet PO 1 packet QAM SOURAV Administration Thiamine HCl 100 mg 11/06/24 09:00 12/04/24 08:28 Thiamine Hcl 200 Mg/2 Ml Vial IV PUSH 100 mg QAM SOURAV Administration Radiology Results: ITS Impressions Head CT 11/05/24 20:50 IMPRESSION: 1. Moderate nonspecific cerebral white matter disease, which likely represents chronic small vessel ischemic disease. 2. 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 Upper GI Series 11/08/24 12:17 IMPRESSION: 1. Slow gastric emptying likely related to postoperative ileus. No extraluminal leakage of contrast. Catheter Placement CT 11/12/24 14:47 IMPRESSION: 1. Successful CT-guided right upper quadrant abdominal abscess drainage yielding yellow fluid. Abdomen X-Ray 11/14/24 11:13 IMPRESSION: Nonspecific, nonobstructive bowel gas pattern. Supportive devices unchanged in position. Bilateral pleural effusions. If clinical suspicion persists, CT examination of the abdomen and pelvis (with intravenous contrast) is suggested for further evaluation. Renal Ultrasound 11/19/24 16:17 IMPRESSION: No hydronephrosis or renal calculi. Findings suggesting medical renal disease. Free fluid within the pelvis. Abdomen/Pelvis CT 11/20/24 14:44 IMPRESSION: Large bilateral pleural effusions, with bilateral lower lobe atelectasis. Infection in the lower lobes is not excluded. Single loop of dilated jejunum, likely representing localized ileus. Early/partial obstruction could appear similarly. Colonic wall thickening, as can be seen with colitis. Moderate ascites. Diffuse edema of the subcutaneous fat and mesenteric fat. Venous Doppler Study 11/22/24 10:28 IMPRESSION: 1. No deep venous thrombosis in either lower limb. Renal Scan Nuclear Medicine 11/23/24 14:21 IMPRESSION: 1. Symmetric kidney function. 2. Delayed activity clearance from both kidneys with continually rising activity curves extending over the 30 minutes of observation and without associated hydronephrosis consistent with nonspecific, nonobstructive nephropathy. Modified Barium Swallow 11/26/24 10:39 IMPRESSION: 1. Trace laryngeal penetration. 2. Please refer to the speech therapy report for recommendations. Chest/Abdomen/Pelvis CT 12/02/24 14:47 IMPRESSION: Redemonstration of subcapsular fluid collections within both the liver and spleen (as detailed above) for which abscess formation is suspected. Both collections are amenable to percutaneous drainage. Bilateral large pleural effusions, with adjacent consolidation, decreased from prior. Labs Labs: Laboratory Results - last 24 hr 12/03/24 12/03/24 12/04/24 16:26 21:19 07:02 WBC 25.0 H RBC 3.25 L Hgb 9.1 L Hct 29.1 L MCV 89.5 MCH 28.0 MCHC 31.3 L RDW 14.6 H Plt Count 497 H MPV 10.3 Immature Gran % (Auto) 1.0 H Neut % (Auto) 85.5 H Lymph % (Auto) 9.0 L [place] % (Auto) 4.1 Eos % (Auto) 0.0 Baso % (Auto) 0.4 Lymph # (Auto) 2.26 [place] # (Auto) 1.0 H Eos # (Auto) 0.0 Baso # (Auto) 0.1 Abs Immat Gran (auto) 0.25 H Absolute Neuts (auto) 21.4 H Absolute Nucleated RBC 0.000 Nucleated RBC % 0.0 Sodium 138 Potassium 3.1 L Chloride 98 Carbon Dioxide 30 Anion Gap 10 BUN 40 H Creatinine 2.51 H Estim Creat Clear Calc 16 Estimated GFR 26 L Glucose 77 POC Capillary Glucose 111 H 92 Calcium 8.3 L Phosphorus 5.0 H Magnesium 1.9 Total Bilirubin 0.5 AST 25 ALT 11 Alkaline Phosphatase 126 Total Protein 7.0 Albumin 3.0 L 12/04/24 12/04/24 07:40 11:16 WBC RBC Hgb Hct MCV MCH MCHC RDW Plt Count MPV Immature Gran % (Auto) Neut % (Auto) Lymph % (Auto) [place] % (Auto) Eos % (Auto) Baso % (Auto) Lymph # (Auto) [place] # (Auto) Eos # (Auto) Baso # (Auto) Abs Immat Gran (auto) Absolute Neuts (auto) Absolute Nucleated RBC Nucleated RBC % Sodium Potassium Chloride Carbon Dioxide Anion Gap BUN Creatinine Estim Creat Clear Calc Estimated GFR Glucose POC Capillary Glucose 83 156 H Calcium Phosphorus Magnesium Total Bilirubin AST ALT Alkaline Phosphatase Total Protein Albumin
[2024-12-04 15:53] LABS: INR 1.1; Prothrombin Time 14.3 Seconds (11.1-14.7)
[2024-12-04 15:54] LABS: Partial Thromboplastin Time 31.9 Seconds (22.3-36.8)
[2024-12-04 16:49] LABS: Glucose Point of Care 119 mg/dl (65-105)
[2024-12-04] MEDS: MEROPENEM 500 MG/NS 100 ML 500 MG/100 ML BAG 200 MG IVPB (17:28)
[2024-12-04 20:25] LABS: Glucose Point of Care 120 mg/dl (65-105)
[2024-12-04 20:30] VITALS: BP 133/81; PULSE 72; RESP 16; TEMP 36.4; O2SAT 96
[2024-12-04] MEDS: MIRTAZAPINE 15 MG TABLET PO (21:12)
[2024-12-05 05:53] VITALS: BP 134/87; PULSE 68; RESP 18; TEMP 36.7; O2SAT 100
[2024-12-05] MEDS: MEROPENEM 500 MG/NS 100 ML 500 MG/100 ML BAG 200 MG IVPB ×2 (06:46→18:08)
[2024-12-05 07:15] LABS: Hematocrit 27.8 % (42.0-52.0); Hemoglobin 8.7 g/dL (14.0-18.0); Mean Corpuscular HGB Conc 31.3 g/dl (32-36); Mean Corpuscular Hemoglobin 27.4 pg (26-34); Mean Corpuscular Volume 87.7 fl (80-100); Mean Platelet Volume 10.2 fl (7.4-10.4); Platelet Count Result 516 k/mm3 (150-375); Red Blood Count 3.17 M/mm3 (4.6-6.20); Red Cell Distribution Width 14.3 % (11.5-14.5); White Blood Count 21.9 K/mm3 (4.5-10.0)
[2024-12-05 07:19] LABS: Alanine Aminotransferase 12 U/L (6-50); Alkaline Phosphatase 134 U/L (38-126); Anion Gap 7 mmol/L (4-12); Aspartate Amino Transferase 27 U/L (17-59); Bilirubin,Total 0.5 mg/dL (0.2-1.3); Blood Urea Nitrogen 45 mg/dL (9-20); Calcium 7.9 mg/dL (8.4-10.2); Carbon Dioxide 34 mmol/L (22-30); Chloride 95 mmol/L (98-107); Estimated CRCL calculation 14 ml/min; Estimated Glomerular Filt Rate 24; Glucose 99 mg/dL (65-110); Potassium 2.9 mmol/L (3.4-5.0); Sodium 136 mmol/L (137-145)
[2024-12-05 08:00] VITALS: O2SAT 96
--- NOTE | 2024-12-05 09:03 | P.PNGS_ITS ---
Progress Note: A&P Assessment and Plan (1) Liver abscess: Code(s): K75.0 - Abscess of liver Status: Acute Assessment and Plan: pt c liver and splenic abscess on CT, setup for perc drainage but pt now refusing any further intervention Subjective Subjective Date/Time Seen: 12/05/24 09:03 Interval history: agitated, does not want any further medical care/intervention, wants to leave hospital Review of Systems Review of Systems: All systems reviewed & are unremarkable except as noted in HPI and below Exam Const: General: no acute distress and cachectic Resp: Auscultation: diminished lung sounds Cardio: Rate: regular rate Rhythm: regular rhythm GI: Inspection: normal to inspection, non-distended and incision GI Palp: No abdominal tenderness and Yes Soft to palpation Objective Data Vital Signs Vital Signs: Vital Signs - 24 hr 12/04/24 14:00 12/04/24 14:15 12/04/24 14:15 Temperature 37.1 C Pulse Rate 78 Respiratory Rate 18 Blood Pressure 137/76 Pulse Oximetry 87 L 94 94 Oxygen Delivery Nasal Cannula Oxygen Flow Rate 1 12/04/24 20:30 12/05/24 05:53 Temperature 36.4 C L 36.7 C Pulse Rate 72 68 Respiratory Rate 16 18 Blood Pressure 133/81 134/87 Pulse Oximetry 96 100 Oxygen Delivery Oxygen Flow Rate Intake/Output Intake/Output: Intake & Output 12/02/24 12/03/24 12/04/24 12/05/24 23:59 23:59 23:59 23:59 Intake Total 626 310 6037 Output Total 1950 1350 1800 Balance -1060 -830 -800 Meds/Results Medications: Active Medications Generic Name Dose Route Start Last Admin Trade Name Freq PRN Reason Stop Dose Admin Acetaminophen 650 mg 11/06/24 14:48 11/07/24 19:10 Acetaminophen 650 Mg Suppository RECTAL 650 mg Q4H PRN Administration Mild Pain (1-3) or Fever Acetaminophen 650 mg 11/14/24 15:21 Acetaminophen Elixir 325 Mg/10.15 Ml Udc FEED TUBE Q4H PRN Headache, Fever, Mild Pain Albuterol 2.5 mg 11/09/24 15:38 12/02/24 07:15 Albuterol Sulfate Neb 2.5 Mg/3 Ml Inh INHALATION 2.5 mg Q12HR PRN Administration Shortness Of Breath Amlodipine Besylate 10 mg 12/02/24 09:00 12/04/24 16:50 Amlodipine Besylate 10 Mg Tablet PO Not Given DAILY SOURAV Dextrose 12.5 gm 11/06/24 07:40 11/21/24 16:58 Dextrose 50% 25 Gm/50 Ml Syringe IV PUSH 12.5 gm PRN PRN Administration Hypoglycemia Protocol Enoxaparin Sodium 30 mg 11/29/24 09:00 12/04/24 08:28 Enoxaparin 30 Mg/0.3 Ml Syringe SUB-Q 30 mg DAILY SOURAV Administration Folic Acid 1 mg 11/06/24 09:00 12/04/24 08:22 Folic Acid 1 Mg/0.2 Ml Inj IV PUSH 1 mg QAM SOURAV Administration Furosemide 20 mg 11/28/24 17:00 12/04/24 16:43 Furosemide Inj 40 Mg/4 Ml Vial IV PUSH 20 mg BID SOURAV Administration Glucagon 1 mg 11/06/24 07:40 Glucagon For Inj 1 Mg Vial IM PRN PRN Hypoglycemia Protocol Glucose 15 gm 11/06/24 07:40 Glucose Oral Gel 15 Gm Of Glucse In 37.5 Gm Tube PO PRN PRN Hypoglycemia Protocol Hydralazine HCl 10 mg 11/10/24 09:16 11/30/24 06:00 Hydralazine Hcl 20 Mg/Ml Vial IV PUSH 10 mg Q4HR PRN Administration Blood Pressure - High Hydrochlorothiazide 25 mg 12/03/24 09:00 12/04/24 08:26 Hydrochlorothiazide 25 Mg Tablet PO 25 mg QAM SOURAV Administration Dextrose 1,000 mls @ 100 mls/hr 11/06/24 07:40 Dextrose 5% 1,000 Ml IVPB PRN PRN Hypoglycemia Protocol Meropenem 500 mg in 100 mls @ 200 mls/hr 12/04/24 18:00 12/05/24 06:46 IVPB 200 mls/hr Q12H SOURAV Administration Insulin Aspart 2 - 5 units 11/18/24 08:00 12/04/24 17:39 Insulin Aspart (*Bkc) 100 Units/Ml SUB-Q Not Given TIDWM SOURAV Protocol Loperamide HCl 2 mg 12/01/24 10:59 12/01/24 15:17 Loperamide Hcl 2 Mg Capsule PO 2 mg PRN PRN Administration Diarrhea Mirtazapine 15 mg 11/30/24 21:00 12/04/24 21:12 Mirtazapine 15 Mg Tablet PO 15 mg HS SOURAV Administration Miscellaneous Information 0 each 12/05/24 00:01 Renew Naloxone And Ondansetron Orders If Still Needed Or Will Auto D/C XX 01/04/25 00:00 CLARIFY SOURAV Naloxone HCl 0.1 mg 11/06/24 00:01 Naloxone Hcl 0.4 Mg/Ml Vial IV PUSH Q2M PRN Opiate Reversal Ondansetron HCl 4 mg 11/06/24 00:01 12/03/24 17:58 Ondansetron Inj 4 Mg/2 Ml Vial IV PUSH 4 mg Q4H PRN Administration Nausea And Vomiting Pantoprazole Sodium 40 mg 11/06/24 09:00 12/04/24 21:11 Pantoprazole Sodium Iv 40 Mg Vial IV PUSH 40 mg Q12HR SOURAV Administration Phenyleph/Shark Oil/[place] Butter 1 supp 11/19/24 18:18 11/19/24 18:33 Phenylephrine Hcl/[place] Butter Supp.Rect (*Bkc) RECTAL 1 supp Q12HR PRN Administration Hemorrhoids Psyllium Hydrophilic Mucilloid 1 packet 11/29/24 09:00 12/04/24 16:51 Psyllium Powder Packet PO Not Given QAM SOURAV Thiamine HCl 100 mg 11/06/24 09:00 12/04/24 08:28 Thiamine Hcl 200 Mg/2 Ml Vial IV PUSH 100 mg QAM SOURAV Administration Radiology Results: ITS Impressions Head CT 11/05/24 20:50 IMPRESSION: 1. Moderate nonspecific cerebral white matter disease, which likely represents chronic small vessel ischemic disease. 2. 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 Upper GI Series 11/08/24 12:17 IMPRESSION: 1. Slow gastric emptying likely related to postoperative ileus. No extraluminal leakage of contrast. Catheter Placement CT 11/12/24 14:47 IMPRESSION: 1. Successful CT-guided right upper quadrant abdominal abscess drainage yielding yellow fluid. Abdomen X-Ray 11/14/24 11:13 IMPRESSION: Nonspecific, nonobstructive bowel gas pattern. Supportive devices unchanged in position. Bilateral pleural effusions. If clinical suspicion persists, CT examination of the abdomen and pelvis (with intravenous contrast) is suggested for further evaluation. Renal Ultrasound 11/19/24 16:17 IMPRESSION: No hydronephrosis or renal calculi. Findings suggesting medical renal disease. Free fluid within the pelvis. Abdomen/Pelvis CT 11/20/24 14:44 IMPRESSION: Large bilateral pleural effusions, with bilateral lower lobe atelectasis. Infection in the lower lobes is not excluded. Single loop of dilated jejunum, likely representing localized ileus. Malcolm y/partial obstruction could appear similarly. Colonic wall thickening, as can be seen with colitis. Moderate ascites. Diffuse edema of the subcutaneous fat and mesenteric fat. Venous Doppler Study 11/22/24 10:28 IMPRESSION: 1. No deep venous thrombosis in either lower limb. Renal Scan Nuclear Medicine 11/23/24 14:21 IMPRESSION: 1. Symmetric kidney function. 2. Delayed activity clearance from both kidneys with continually rising activity curves extending over the 30 minutes of observation and without associated hydronephrosis consistent with nonspecific, nonobstructive n ephropathy. Modified Barium Swallow 11/26/24 10:39 IMPRESSION: 1. Trace laryngeal penetration. 2. Please refer to the speech therapy report for recommendations. Chest/Abdomen/Pelvis CT 12/02/24 14:47 IMPRESSION: Redemonstration of subcapsular fluid collections within both the liver and spleen (as detailed above) for which abscess formation is suspected. Both collections are amenable to percutaneous drainage. Bilateral large pleural effusions, with adjacent consolidation, decreased from prior. Chest X-Ray 12/04/24 15:02 IMPRESSION: 1. Decreasing small bilateral pleural effusions with associated bibasilar atelectasis and/or pneumonia. Labs Labs: Laboratory Results - last 24 hr 12/04/24 12/04/24 12/04/24 11:16 15:33 16:44 WBC RBC Hgb Hct MCV MCH MCHC RDW Plt Count MPV PT 14.3 INR 1.1 APTT 31.9 Sodium Potassium Chloride Carbon Dioxide Anion Gap BUN Creatinine Estim Creat Clear Calc Estimated GFR Glucose POC Capillary Glucose 156 H 119 H Calcium Total Bilirubin AST ALT Alkaline Phosphatase Total Protein Albumin 12/04/24 12/05/24 20:21 06:38 WBC 21.9 H RBC 3.17 L Hgb 8.7 L Hct 27.8 L MCV 87.7 MCH 27.4 MCHC 31.3 L RDW 14.3 Plt Count 516 H MPV 10.2 PT INR APTT Sodium 136 L Potassium 2.9 L Chloride 95 L Carbon Dioxide 34 H Anion Gap 7 BUN 45 H Creatinine 2.65 H Estim Creat Clear Calc 14 Estimated GFR 24 L Glucose 99 POC Capillary Glucose 120 H Calcium 7.9 L Total Bilirubin 0.5 AST 27 ALT 12 Alkaline Phosphatase 134 H Total Protein 7.0 Albumin 3.0 L
[2024-12-05 09:04] LABS: Glucose Point of Care 93 mg/dl (65-105)
--- NOTE | 2024-12-05 10:09 | P.PNIM_ITS ---
Progress Note: A&P Assessment and Plan (1) Metabolic acidosis: Code(s): E87.20 - Acidosis, unspecified Status: Acute Assessment and Plan: resolved (2) DEBI (acute kidney injury): Code(s): N17.9 - Acute kidney failure, unspecified Status: Acute Assessment and Plan: Creatinine improving Nephrology following (3) Perforated gastric ulcer: Qualifiers: Gastric ulcer chronicity: acute Qualified Code(s): K25.1 - Acute gastric ulcer with perforation Code(s): K25.5 - Chronic or unspecified gastric ulcer with perforation Status: Acute Assessment and Plan: Resolved Continue with Protonix and monitor hgb (4) COPD (chronic obstructive pulmonary disease): Code(s): J44.9 - Chronic obstructive pulmonary disease, unspecified Status: Acute Assessment and Plan: Stable on current medications. Will continue current treatment. (5) Sepsis: Code(s): A41.9 - Sepsis, unspecified organism Status: Acute Assessment and Plan: Completed antibiotics (6) Pneumonia: Code(s): J18.9 - Pneumonia, unspecified organism Status: Acute Assessment and Plan: Completed antibiotics pneumonia resolved Repeat CXR showed pulm edema and Pleural effusion now on lasix (7) Acute hypoxic respiratory failure: Code(s): J96.01 - Acute respiratory failure with hypoxia Status: Acute Assessment and Plan: resolved CXR showed pulm edema and pleural effusion continue Lasix 20mg bid and monitor renal function ECHO from june normal function monitor (8) Sepsis associated hypotension: Code(s): A41.9 - Sepsis, unspecified organism; I95.9 - Hypotension, unspecified Status: Acute Assessment and Plan: completed antibiotics (9) EtOH dependence: Code(s): F10.20 - Alcohol dependence, uncomplicated Status: Acute Assessment and Plan: Counselling given Plan Diarrhea Resolved Stool culture and c diff negative Likely from pureed diet started on PRN imodium leukocytosis Worsening despite no evidence of infection WBC continues to rise. Surgery re-evaluated the re-demonstration of subcapsular fluid collections within both the liver and spleen for which abscess formation is suspected.. Will undergo perc drain today Repeat blood culture pending. CXR done several days ago showed pulm edema and patient has responded to lasix and off oxygen Lactic acid normal Repeated blood culture Code status DNR DVT prophylaxis on Sq Lovenox PT/OT following [facility] Subjective Date/time seen: 12/05/24 10:09 Interval history: Morning nurse reported patient wants to give you AMA and leave the hospital. When I visited him he reported he wants to do everything and will undergo surgery to place the perc drain. replaced K 80 meq. Will recheck potassium,magnesium and phosphorus Review of Systems Review of Systems: Pt with a dry throat not talking loudly ROS unobtainable: Yes unobtainable due to endotracheal tube, unobtainable due to medical condition and unobtainable due to mental status Exam Narrative: General: More alert toady Lungs/Chest: Trachea central Coarse BS B/L, No crackles or wheezing. Cardiac: RRR. Normal S1 S2. No murmurs Abdomen: Decreased but present bowel sounds. Extremities: No clubbing, cyanosis or edema. Warm : Shen in place Neurologic: Patient is able to move all 4 extremities spontaneously. Objective Data Vital Signs Vital Signs: Vital Signs - 24 hr 12/04/24 14:00 12/04/24 14:15 12/04/24 14:15 Temperature 98.7 F Pulse Rate 78 Respiratory Rate 18 Blood Pressure 137/76 Pulse Oximetry 87 L 94 94 Oxygen Delivery Nasal Cannula Oxygen Flow Rate 1 12/04/24 20:30 12/05/24 05:53 Temperature 97.5 F L 98.0 F Pulse Rate 72 68 Respiratory Rate 16 18 Blood Pressure 133/81 134/87 Pulse Oximetry 96 100 Oxygen Delivery Oxygen Flow Rate Intake/Output Intake/Output: Intake & Output 12/02/24 12/03/24 12/04/24 12/05/24 23:59 23:59 23:59 23:59 Intake Total 431 558 4244 Output Total 1950 1350 1800 Balance -1060 -830 -800 Meds/Results Medications: Active Medications Generic Name Dose Route Start Last Admin Trade Name Freq PRN Reason Stop Dose Admin Acetaminophen 650 mg 11/06/24 14:48 11/07/24 19:10 Acetaminophen 650 Mg Suppository RECTAL 650 mg Q4H PRN Administration Mild Pain (1-3) or Fever Acetaminophen 650 mg 11/14/24 15:21 Acetaminophen Elixir 325 Mg/10.15 Ml Udc FEED TUBE Q4H PRN Headache, Fever, Mild Pain Albuterol 2.5 mg 11/09/24 15:38 12/02/24 07:15 Albuterol Sulfate Neb 2.5 Mg/3 Ml Inh INHALATION 2.5 mg Q12HR PRN Administration Shortness Of Breath Amlodipine Besylate 10 mg 12/02/24 09:00 12/04/24 16:50 Amlodipine Besylate 10 Mg Tablet PO Not Given DAILY SOURAV Dextrose 12.5 gm 11/06/24 07:40 11/21/24 16:58 Dextrose 50% 25 Gm/50 Ml Syringe IV PUSH 12.5 gm PRN PRN Administration Hypoglycemia Protocol Enoxaparin Sodium 30 mg 11/29/24 09:00 12/04/24 08:28 Enoxaparin 30 Mg/0.3 Ml Syringe SUB-Q 30 mg DAILY SOURAV Administration Folic Acid 1 mg 11/06/24 09:00 12/04/24 08:22 Folic Acid 1 Mg/0.2 Ml Inj IV PUSH 1 mg QAM SOURAV Administration Furosemide 20 mg 11/28/24 17:00 12/04/24 16:43 Furosemide Inj 40 Mg/4 Ml Vial IV PUSH 20 mg BID SOURAV Administration Glucagon 1 mg 11/06/24 07:40 Glucagon For Inj 1 Mg Vial IM PRN PRN Hypoglycemia Protocol Glucose 15 gm 11/06/24 07:40 Glucose Oral Gel 15 Gm Of Glucse In 37.5 Gm Tube PO PRN PRN Hypoglycemia Protocol Hydralazine HCl 10 mg 11/10/24 09:16 11/30/24 06:00 Hydralazine Hcl 20 Mg/Ml Vial IV PUSH 10 mg Q4HR PRN Administration Blood Pressure - High Hydrochlorothiazide 25 mg 12/03/24 09:00 12/04/24 08:26 Hydrochlorothiazide 25 Mg Tablet PO 25 mg QAM SOURAV Administration Dextrose 1,000 mls @ 100 mls/hr 11/06/24 07:40 Dextrose 5% 1,000 Ml IVPB PRN PRN Hypoglycemia Protocol Meropenem 500 mg in 100 mls @ 200 mls/hr 12/04/24 18:00 12/05/24 06:46 IVPB 200 mls/hr Q12H SOURAV Administration Insulin Aspart 2 - 5 units 11/18/24 08:00 12/04/24 17:39 Insulin Aspart (*Bkc) 100 Units/Ml SUB-Q Not Given TIDWM SOURAV Protocol Loperamide HCl 2 mg 12/01/24 10:59 12/01/24 15:17 Loperamide Hcl 2 Mg Capsule PO 2 mg PRN PRN Administration Diarrhea Mirtazapine 15 mg 11/30/24 21:00 12/04/24 21:12 Mirtazapine 15 Mg Tablet PO 15 mg HS SOURAV Administration Miscellaneous Information 0 each 12/05/24 00:01 Renew Naloxone And Ondansetron Orders If Still Needed Or Will Auto D/C XX 01/04/25 00:00 CLARIFY SOURAV Miscellaneous Information 0 each 12/05/24 00:01 Iv Folic Acid, Pantoprazole & Thiamine Will All Auto Discontinue 12/06. XX 01/04/25 00:00 CLARIFY SOURAV Naloxone HCl 0.1 mg 11/06/24 00:01 Naloxone Hcl 0.4 Mg/Ml Vial IV PUSH Q2M PRN Opiate Reversal Ondansetron HCl 4 mg 11/06/24 00:01 12/03/24 17:58 Ondansetron Inj 4 Mg/2 Ml Vial IV PUSH 4 mg Q4H PRN Administration Nausea And Vomiting Pantoprazole Sodium 40 mg 11/06/24 09:00 12/04/24 21:11 Pantoprazole Sodium Iv 40 Mg Vial IV PUSH 40 mg Q12HR SOURAV Administration Phenyleph/Shark Oil/[place] Butter 1 supp 11/19/24 18:18 11/19/24 18:33 Phenylephrine Hcl/[place] Butter Supp.Rect (*Bkc) RECTAL 1 supp Q12HR PRN Administration Hemorrhoids Psyllium Hydrophilic Mucilloid 1 packet 11/29/24 09:00 12/04/24 16:51 Psyllium Powder Packet PO Not Given QAM SOURAV Thiamine HCl 100 mg 11/06/24 09:00 12/04/24 08:28 Thiamine Hcl 200 Mg/2 Ml Vial IV PUSH 100 mg QAM SOURAV Administration Radiology Results: ITS Impressions Head CT 11/05/24 20:50 IMPRESSION: 1. Moderate nonspecific cerebral white matter disease, which likely represents chronic small vessel ischemic disease. 2. 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 Upper GI Series 11/08/24 12:17 IMPRESSION: 1. Slow gastric emptying likely related to postoperative ileus. No extraluminal leakage of contrast. Catheter Placement CT 11/12/24 14:47 IMPRESSION: 1. Successful CT-guided right upper quadrant abdominal abscess drainage yielding yellow fluid. Abdomen X-Ray 11/14/24 11:13 IMPRESSION: Nonspecific, nonobstructive bowel gas pattern. Supportive devices unchanged in position. Bilateral pleural effusions. If clinical suspicion persists, CT examination of the abdomen and pelvis (with intravenous contrast) is suggested for further evaluation. Renal Ultrasound 11/19/24 16:17 IMPRESSION: No hydronephrosis or renal calculi. Findings suggesting medical renal disease. Free fluid within the pelvis. Abdomen/Pelvis CT 11/20/24 14:44 IMPRESSION: Large bilateral pleural effusions, with bilateral lower lobe atelectasis. Infection in the lower lobes is not excluded. Single loop of dilated jejunum, likely representing localized ileus. Early/partial obstruction could appear similarly. Colonic wall thickening, as can be seen with colitis. Moderate ascites. Diffuse edema of the subcutaneous fat and mesenteric fat. Venous Doppler Study 11/22/24 10:28 IMPRESSION: 1. No deep venous thrombosis in either lower limb. Renal Scan Nuclear Medicine 11/23/24 14:21 IMPRESSION: 1. Symmetric kidney function. 2. Delayed activity clearance from both kidneys with continually rising activity curves extending over the 30 minutes of observation and without associated hydronephrosis consistent with nonspecific, nonobstructive nephropathy. Modified Barium Swallow 11/26/24 10:39 IMPRESSION: 1. Trace laryngeal penetration. 2. Please refer to the speech therapy report for recommendations. Chest/Abdomen/Pelvis CT 12/02/24 14:47 IMPRESSION: Redemonstration of subcapsular fluid collections within both the liver and spleen (as detailed above) for which abscess formation is suspected. Both collections are amenable to percutaneous drainage. Bilateral large pleural effusions, with adjacent consolidation, decreased from prior. Chest X-Ray 12/04/24 15:02 IMPRESSION: 1. Decreasing small bilateral pleural effusions with associated bibasilar a telectasis and/or pneumonia. Labs Labs: Laboratory Results - last 24 hr 12/04/24 12/04/24 12/04/24 11:16 15:33 16:44 WBC RBC Hgb Hct MCV MCH MCHC RDW Plt Count MPV PT 14.3 INR 1.1 APTT 31.9 Sodium Potassium Chloride Carbon Dioxide Anion Gap BUN Creatinine Estim Creat Clear Calc Estimated GFR Glucose POC Capillary Glucose 156 H 119 H Calcium Total Bilirubin AST ALT Alkaline Phosphatase Total Protein Albumin 12/04/24 12/05/24 12/05/24 20:21 06:38 08:52 WBC 21.9 H RBC 3.17 L Hgb 8.7 L Hct 27.8 L MCV 87.7 MCH 27.4 MCHC 31.3 L RDW 14.3 Plt Count 516 H MPV 10.2 PT INR APTT Sodium 136 L Potassium 2.9 L Chloride 95 L Carbon Dioxide 34 H Anion Gap 7 BUN 45 H Creatinine 2.65 H Estim Creat Clear Calc 14 Estimated GFR 24 L Glucose 99 POC Capillary Glucose 120 H 93 Calcium 7.9 L Total Bilirubin 0.5 AST 27 ALT 12 Alkaline Phosphatase 134 H Total Protein 7.0 Albumin 3.0 L Quality VTE Prophylaxis VTE prophylaxis: mechanical ordered and pharmacologic ordered Hospitalist MIPS Advance Care Plan I have confirmed that the patient's Advanced Care Plan is present, code status is documented, or surrogate decision maker is listed in patient medical record.: Yes Medication Reconciliation I have utilized all available resources to obtain, update and review the patients current medications (includes all prescriptions, OTC, herbals, cannabis, and nutritional supplements).: Yes
[2024-12-05 12:09] LABS: Glucose Point of Care 101 mg/dl (65-105)
[2024-12-05] MEDS: POTASSIUM CHLORIDE INJ 40 MEQ in SODIUM CHLORIDE 0.9% IV 500 ML 130 MEQ IVPB ×2 (13:00→18:30)
--- NOTE | 2024-12-05 13:22 | P.PNNP_ITS ---
Progress Note: A&P Assessment and Plan (1) DEBI (acute kidney injury): Code(s): N17.9 - Acute kidney failure, unspecified Status: Acute Assessment and Plan: * relatively stable * initial insult on admission was due to sepsis hypotension, fluid shifts and hypovolemia * resolved with supportive therapy * second episode noted on 11/18...creatinine increased from 0.9 -> 2.2 -> 3.0mg/dl...etc * etiology of second episode is not entirely clear... * suspect ATN from prerenal azotemia secondary to third spacing given recent abdominal surgery compounded by his diminished oral intake * recent CT scan noted (ascites, pleural effusions, anasarca...) * evaluation to date noted: * renal ultrasound without obstruction but with medical renal disease * urine electrolytes prerenal * UA not indicative of infection * urine eosinophils negative * mild proteinuria noted (~ 1300mg proteinuria) * CPK low * renal scan suggestive of ATN * creatinine peaked/plateaued at 4.20mg/dl with ongoing improvement noted * renal function tolerating gentle diuresis (IV lasix 20mg bid) * suspect will have a new baseline creatinine by time of discharge * however, it could further improve with time.... * follow trend of repeat labs and UOP (2) Perforated gastric ulcer: Qualifiers: Gastric ulcer chronicity: acute Qualified Code(s): K25.1 - Acute gastric ulcer with perforation Code(s): K25.5 - Chronic or unspecified gastric ulcer with perforation Status: Acute Assessment and Plan: * s/p exploratory laparotomy, extensive lysis of adhesions, intra-abdominal washout, repair of perforated gastric ulcer with omental patch * on antibiotics * local wound care * Surgery following (3) Hypertension: Code(s): I10 - Essential (primary) hypertension Status: Chronic Assessment and Plan: * as noted by recent BP readings * likely an undiagnosed condition * on amlodpine and PRN IV hydralazine * titrate and adjust medications as needed * follow trend of hemodynamics (4) COPD (chronic obstructive pulmonary disease): Code(s): J44.9 - Chronic obstructive pulmonary disease, unspecified Status: Acute Assessment and Plan: * not in exacerbation * bronchodilators as needed (5) Severe protein-calorie malnutrition: Code(s): E43 - Unspecified severe protein-calorie malnutrition Status: Acute Assessment and Plan: * on dronabinol 5mg bid * advance diet as tolerated (6) EtOH dependence: Code(s): F10.20 - Alcohol dependence, uncomplicated Status: Acute Assessment and Plan: * known history * no evidence of withdrawal since admission * continue thiamine and folic acid Will continue to follow. L Subjective Date/time seen: 12/05/24 13:22 Interval history: Follow-up for acute kidney injury/acute renal failure. Renal function relatively stable at this time if not slowly improving; tentatively scheduled for CT guided drainage of liver & spleen abscesses as noted by recent imaging; no other acute issues or problems to voiced; no apparent distress noted. Exam 2 Narrative: General: elderly male in NAD Heart: normal S1 and S2; no rub Lungs: clear anteriorly; decreased at bases Abdomen: soft and nontender; positive bowel sounds Extremities: no cyanosis or clubbing; no edema Skin: no nodules Objective Data Vital Signs Vital Signs: Vital Signs Temp Pulse Resp BP Pulse Ox O2 Del Method O2 Flow Rate 12/05/24 12:53 97.7 F 72 20 143/80 H 98 12/05/24 08:00 96 Nasal Cannula 1 12/05/24 05:53 98.0 F 68 18 134/87 100 12/04/24 20:30 97.5 F L 72 16 133/81 96 Intake/Output Intake/Output: Intake & Output 12/02/24 12/03/24 12/04/24 12/05/24 23:59 23:59 23:59 23:59 Intake Total 939 770 1871 0 Output Total 1950 1350 1800 Balance -1060 -830 -800 0 Meds/Results Medications: Active Medications Generic Name Dose Route Start Last Admin Trade Name Freq PRN Reason Stop Dose Admin Acetaminophen 650 mg 11/06/24 14:48 11/07/24 19:10 Acetaminophen 650 Mg Suppository RECTAL 650 mg Q4H PRN Administration Mild Pain (1-3) or Fever Acetaminophen 650 mg 11/14/24 15:21 12/05/24 16:06 Acetaminophen Elixir 325 Mg/10.15 Ml Udc FEED TUBE 650 mg Q4H PRN Administration Headache, Fever, Mild Pain Albuterol 2.5 mg 11/09/24 15:38 12/02/24 07:15 Albuterol Sulfate Neb 2.5 Mg/3 Ml Inh INHALATION 2.5 mg Q12HR PRN Administration Shortness Of Breath Amlodipine Besylate 10 mg 12/02/24 09:00 12/05/24 16:07 Amlodipine Besylate 10 Mg Tablet PO 10 mg DAILY SOURAV Administration Dextrose 12.5 gm 11/06/24 07:40 11/21/24 16:58 Dextrose 50% 25 Gm/50 Ml Syringe IV PUSH 12.5 gm PRN PRN Administration Hypoglycemia Protocol Enoxaparin Sodium 30 mg 11/29/24 09:00 12/05/24 16:06 Enoxaparin 30 Mg/0.3 Ml Syringe SUB-Q 30 mg DAILY SOURAV Administration Folic Acid 1 mg 11/06/24 09:00 12/05/24 16:19 Folic Acid 1 Mg/0.2 Ml Inj IV PUSH 1 mg QAM SOURAV Administration Furosemide 20 mg 11/28/24 17:00 12/05/24 16:07 Furosemide Inj 40 Mg/4 Ml Vial IV PUSH 20 mg BID SOURAV Administration Glucagon 1 mg 11/06/24 07:40 Glucagon For Inj 1 Mg Vial IM PRN PRN Hypoglycemia Protocol Glucose 15 gm 11/06/24 07:40 Glucose Oral Gel 15 Gm Of Glucse In 37.5 Gm Tube PO PRN PRN Hypoglycemia Protocol Hydralazine HCl 10 mg 11/10/24 09:16 11/30/24 06:00 Hydralazine Hcl 20 Mg/Ml Vial IV PUSH 10 mg Q4HR PRN Administration Blood Pressure - High Hydrochlorothiazide 25 mg 12/03/24 09:00 12/05/24 16:09 Hydrochlorothiazide 25 Mg Tablet PO 25 mg QAM SOURAV Administration Dextrose 1,000 mls @ 100 mls/hr 11/06/24 07:40 Dextrose 5% 1,000 Ml IVPB PRN PRN Hypoglycemia Protocol Meropenem 500 mg in 100 mls @ 200 mls/hr 12/04/24 18:00 12/05/24 06:46 IVPB 200 mls/hr Q12H SOURAV Administration Potassium Chloride 40 meq/ 520 mls @ 130 mls/hr 12/05/24 17:00 Sodium Chloride IVPB 12/05/24 20:59 ONCE ONE Insulin Aspart 2 - 5 units 11/18/24 08:00 12/04/24 17:39 Insulin Aspart (*Bkc) 100 Units/Ml SUB-Q Not Given TIDWM SOURAV Protocol Loperamide HCl 2 mg 12/01/24 10:59 12/01/24 15:17 Loperamide Hcl 2 Mg Capsule PO 2 mg PRN PRN Administration Diarrhea Mirtazapine 15 mg 11/30/24 21:00 12/04/24 21:12 Mirtazapine 15 Mg Tablet PO 15 mg HS SOURAV Administration Miscellaneous Information 0 each 12/05/24 00:01 Renew Naloxone And Ondansetron Orders If Still Needed Or Will Auto D/C XX 01/04/25 00:00 CLARIFY SOURAV Miscellaneous Information 0 each 12/05/24 00:01 Iv Folic Acid, Pantoprazole & Thiamine Will All Auto Discontinue 12/06. XX 01/04/25 00:00 CLARIFY SOURAV Miscellaneous Information 0 each 12/05/24 00:01 Acetaminophen Supp Order Will Auto Stop 12/06. Please Renew Order If This Is To Continue. XX 01/04/25 00:00 CLARIFY SOURAV Naloxone HCl 0.1 mg 11/06/24 00:01 Naloxone Hcl 0.4 Mg/Ml Vial IV PUSH Q2M PRN Opiate Reversal Ondansetron HCl 4 mg 11/06/24 00:01 12/03/24 17:58 Ondansetron Inj 4 Mg/2 Ml Vial IV PUSH 4 mg Q4H PRN Administration Nausea And Vomiting Pantoprazole Sodium 40 mg 11/06/24 09:00 12/05/24 16:06 Pantoprazole Sodium Iv 40 Mg Vial IV PUSH 40 mg Q12HR SOURAV Administration Phenyleph/Shark Oil/[place] Butter 1 supp 11/19/24 18:18 11/19/24 18:33 Phenylephrine Hcl/[place] Butter Supp.Rect (*Bkc) RECTAL 1 supp Q12HR PRN Administration Hemorrhoids Psyllium Hydrophilic Mucilloid 1 packet 11/29/24 09:00 12/05/24 16:19 Psyllium Powder Packet PO Not Given QAM [facility] Thiamine HCl 100 mg 11/06/24 09:00 12/05/24 16:09 Thiamine Hcl 200 Mg/2 Ml Vial IV PUSH 100 mg QAM SOURAV Administration Radiology Results: ITS Impressions Head CT 11/05/24 20:50 IMPRESSION: 1. Moderate nonspecific cerebral white matter disease, which likely represents chronic small vessel ischemic disease. 2. 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 Upper GI Series 11/08/24 12:17 IMPRESSION: 1. Slow gastric emptying likely related to postoperative ileus. No extraluminal leakage of contrast. Abdomen X-Ray 11/14/24 11:13 IMPRESSION: Nonspecific, nonobstructive bowel gas pattern. Supportive devices unchanged in position. Bilateral pleural effusions. If clinical suspicion persists, CT examination of the abdomen and pelvis (with intravenous contrast) is suggested for further evaluation. Renal Ultrasound 11/19/24 16:17 IMPRESSION: No hydronephrosis or renal calculi. Findings suggesting medical renal disease. Free fluid within the pelvis. Abdomen/Pelvis CT 11/20/24 14:44 IMPRESSION: Large bilateral pleural effusions, with bilateral lower lobe atelectasis. Infection in the lower lobes is not excluded. Single loop of dilated jejunum, likely representing localized ileus. Early/partial obstruction could appear similarly. Colonic wall thickening, as can be seen with colitis. Moderate ascites. Diffuse edema of the subcutaneous fat and mesenteric fat. Venous Doppler Study 11/22/24 10:28 IMPRESSION: 1. No deep venous thrombosis in either lower limb. Renal Scan Nuclear Medicine 11/23/24 14:21 IMPRESSION: 1. Symmetric kidney function. 2. Delayed activity clearance from both kidneys with continually rising activity curves extending over the 30 minutes of observation and without associated hydronephrosis consistent with nonspecific, nonobstructive nephropathy. Modified Barium Swallow 11/26/24 10:39 IMPRESSION: 1. Trace laryngeal penetration. 2. Please refer to the speech therapy report for recommendations. Chest/Abdomen/Pelvis CT 12/02/24 14:47 IMPRESSION: Redemonstration of subcapsular fluid collections within both the liver and spleen (as detailed above) for which abscess formation is suspected. Both collections are amenable to percutaneous drainage. Bilateral large pleural effusions, with adjacent consolidation, decreased from prior. Chest X-Ray 12/04/24 15:02 IMPRESSION: 1. Decreasing small bilateral pleural effusions with associated bibasilar atelectasis and/or pneumonia. Labs Labs: Laboratory Tests 12/05/24 06:38 12/05/24 06:38 Sodium 136 L Potassium 2.9 L Chloride 95 L Carbon Dioxide 34 H Anion Gap 7 BUN 45 H Creatinine 2.65 H Estim Creat Clear Calc 14 Estimated GFR 24 L Glucose 99 Calcium 7.9 L Total Bilirubin 0.5 AST 27 ALT 12 Alkaline Phosphatase 134 H Total Protein 7.0 Albumin 3.0 L Microbiology 12/03/24 16:55 Blood Blood Culture - Preliminary 12/03/24 16:55 Blood Blood Culture - Preliminary Attestation Supervising Provider Attestation ascites drainage?
[2024-12-05 15:53] VITALS: BP 143/80; PULSE 72; RESP 20; TEMP 36.5; O2SAT 98
[2024-12-05] MEDS: PANTOPRAZOLE SODIUM IV 40 MG VIAL IV PUSH ×2 (16:06→20:28)
[2024-12-05] MEDS: ENOXAPARIN 30 MG/0.3 ML SYRINGE SUB-Q (16:06)
[2024-12-05] MEDS: ACETAMINOPHEN ELIXIR 325 MG/10.15 ML UDC 650 MG FEED TUBE (16:06)
[2024-12-05] MEDS: FUROSEMIDE INJ 40 MG/4 ML VIAL 20 MG IV PUSH (16:07)
[2024-12-05] MEDS: amLODIPine BESYLATE 10 MG TABLET PO (16:07)
[2024-12-05] MEDS: hydroCHLOROthiazide 25 MG TABLET PO (16:09)
[2024-12-05] MEDS: THIAMINE HCL 200 MG/2 ML VIAL 100 MG IV PUSH (16:09)
[2024-12-05] MEDS: FOLIC ACID 1 MG/0.2 ML INJ IV PUSH (16:19)
[2024-12-05 17:03] LABS: Glucose Point of Care 100 mg/dl (65-105)
[2024-12-05 17:41] LABS: Magnesium 1.8 mg/dL (1.6-2.3); Phosphorus 4.2 mg/dL (2.5-4.5); Potassium 3.6 mmol/L (3.4-5.0)
[2024-12-05] MEDS: MIRTAZAPINE 15 MG TABLET PO (20:28)
[2024-12-05 21:18] LABS: Glucose Point of Care 102 mg/dl (65-105)
[2024-12-05 22:00] VITALS: BP 138/62; PULSE 72; RESP 16; TEMP 36.6; O2SAT 98
[2024-12-06] MEDS: traMADol HCL (*CRX) 50 MG TABLET PO ×2 (01:45→09:08)
[2024-12-06] MEDS: MEROPENEM 500 MG/NS 100 ML 500 MG/100 ML BAG 200 MG IVPB ×2 (05:43→17:02)
[2024-12-06 05:57] VITALS: BP 145/80; PULSE 76; RESP 12; TEMP 36.8; O2SAT 96
[2024-12-06 06:39] LABS: Hematocrit 27.9 % (42.0-52.0); Hemoglobin 8.7 g/dL (14.0-18.0); Mean Corpuscular HGB Conc 31.2 g/dl (32-36); Mean Corpuscular Hemoglobin 27.6 pg (26-34); Mean Corpuscular Volume 88.6 fl (80-100); Mean Platelet Volume 9.9 fl (7.4-10.4); Platelet Count Result 526 k/mm3 (150-375); Red Blood Count 3.15 M/mm3 (4.6-6.20); Red Cell Distribution Width 14.5 % (11.5-14.5); White Blood Count 18.8 K/mm3 (4.5-10.0)
[2024-12-06 06:51] LABS: Alanine Aminotransferase 11 U/L (6-50); Albumin Level 2.9 g/dL (3.5-5.1); Alkaline Phosphatase 140 U/L (38-126); Anion Gap 6 mmol/L (4-12); Aspartate Amino Transferase 26 U/L (17-59); Bilirubin,Total 0.5 mg/dL (0.2-1.3); Blood Urea Nitrogen 40 mg/dL (9-20); Calcium 7.8 mg/dL (8.4-10.2); Carbon Dioxide 32 mmol/L (22-30); Chloride 97 mmol/L (98-107); Estimated CRCL calculation 18 ml/min; Estimated Glomerular Filt Rate 30; Glucose 96 mg/dL (65-110); Potassium 3.3 mmol/L (3.4-5.0); Sodium 135 mmol/L (137-145)
[2024-12-06 07:15] LABS: Magnesium 1.7 mg/dL (1.6-2.3); Phosphorus 3.4 mg/dL (2.5-4.5)
--- NOTE | 2024-12-06 08:22 | P.PNGS_ITS ---
Progress Note: A&P Assessment and Plan (1) Perforated gastric ulcer: Qualifiers: Gastric ulcer chronicity: acute Qualified Code(s): K25.1 - Acute gastric ulcer with perforation Code(s): K25.5 - Chronic or unspecified gastric ulcer with perforation Status: Acute Assessment and Plan: stable, cont PPI (2) Liver abscess: Code(s): K75.0 - Abscess of liver Status: Acute Assessment and Plan: s/p perc drain x 2, cont IV abx Subjective Subjective Date/Time Seen: 12/06/24 08:22 Interval history: no acute issues, wants to go home Review of Systems 2 Review of Systems: All systems reviewed & are unremarkable except as noted in HPI and below Exam Const: General: no acute distress, ill appearing and cachectic Resp: Auscultation: diminished lung sounds Cardio: Rate: regular rate Rhythm: regular rhythm GI: Inspection: normal to inspection, non-distended and incision GI Palp: No abdominal tenderness and Yes Soft to palpation Other: perc drain x 2 c s/s discharge Objective Data Vital Signs Vital Signs: Vital Signs - 24 hr 12/05/24 15:53 12/05/24 22:00 12/06/24 05:57 Temperature 36.5 C 36.6 C 36.8 C Pulse Rate 72 72 76 Respiratory Rate 20 16 12 Blood Pressure 143/80 H 138/62 145/80 H Pulse Oximetry 98 98 96 Intake/Output Intake/Output: Intake & Output 12/03/24 12/04/24 12/05/24 12/06/24 23:59 23:59 23:59 23:59 Intake Total 520 1000 690 400 Output Total 1350 1800 100 Balance -830 -800 690 300 Meds/Results Medications: Active Medications Generic Name Dose Route Start Last Admin Trade Name Freq PRN Reason Stop Dose Admin Acetaminophen 650 mg 11/06/24 14:48 11/07/24 19:10 Acetaminophen 650 Mg Suppository RECTAL 650 mg Q4H PRN Administration Mild Pain (1-3) or Fever Acetaminophen 650 mg 11/14/24 15:21 12/05/24 16:06 Acetaminophen Elixir 325 Mg/10.15 Ml Udc FEED TUBE 650 mg Q4H PRN Administration Headache, Fever, Mild Pain Albuterol 2.5 mg 11/09/24 15:38 12/02/24 07:15 Albuterol Sulfate Neb 2.5 Mg/3 Ml Inh INHALATION 2.5 mg Q12HR PRN Administration Shortness Of Breath Amlodipine Besylate 10 mg 12/02/24 09:00 12/05/24 16:07 Amlodipine Besylate 10 Mg Tablet PO 10 mg DAILY SOURAV Administration Dextrose 12.5 gm 11/06/24 07:40 11/21/24 16:58 Dextrose 50% 25 Gm/50 Ml Syringe IV PUSH 12.5 gm PRN PRN Administration Hypoglycemia Protocol Enoxaparin Sodium 30 mg 11/29/24 09:00 12/05/24 16:06 Enoxaparin 30 Mg/0.3 Ml Syringe SUB-Q 30 mg DAILY SOURAV Administration Folic Acid 1 mg 11/06/24 09:00 12/05/24 16:19 Folic Acid 1 Mg/0.2 Ml Inj IV PUSH 1 mg QAM SOURAV Administration Furosemide 20 mg 11/28/24 17:00 12/05/24 18:07 Furosemide Inj 40 Mg/4 Ml Vial IV PUSH Not Given BID SOURAV Glucagon 1 mg 11/06/24 07:40 Glucagon For Inj 1 Mg Vial IM PRN PRN Hypoglycemia Protocol Glucose 15 gm 11/06/24 07:40 Glucose Oral Gel 15 Gm Of Glucse In 37.5 Gm Tube PO PRN PRN Hypoglycemia Protocol Hydralazine HCl 10 mg 11/10/24 09:16 11/30/24 06:00 Hydralazine Hcl 20 Mg/Ml Vial IV PUSH 10 mg Q4HR PRN Administration Blood Pressure - High Hydrochlorothiazide 25 mg 12/03/24 09:00 12/05/24 16:09 Hydrochlorothiazide 25 Mg Tablet PO 25 mg QAM SOURAV Administration Hydromorphone HCl 1 mg 12/06/24 01:25 Hydromorphone Hcl Inj (*Crx) 1 Mg/Ml Syr IV PUSH Q3H PRN Breakthrough Pain Dextrose 1,000 mls @ 100 mls/hr 11/06/24 07:40 Dextrose 5% 1,000 Ml IVPB PRN PRN Hypoglycemia Protocol Meropenem 500 mg in 100 mls @ 200 mls/hr 12/04/24 18:00 12/06/24 05:43 IVPB 200 mls/hr Q12H SOURAV Administration Insulin Aspart 2 - 5 units 11/18/24 08:00 12/05/24 18:07 Insulin Aspart (*Bkc) 100 Units/Ml SUB-Q Not Given TIDWM [facility] Protocol Loperamide HCl 2 mg 12/01/24 10:59 12/01/24 15:17 Loperamide Hcl 2 Mg Capsule PO 2 mg PRN PRN Administration Diarrhea Mirtazapine 15 mg 11/30/24 21:00 12/05/24 20:28 Mirtazapine 15 Mg Tablet PO 15 mg HS SOURAV Administration Miscellaneous Information 0 each 12/05/24 00:01 Renew Naloxone And Ondansetron Orders If Still Needed Or Will Auto D/C XX 01/04/25 00:00 CLARIFY SOURAV Miscellaneous Information 0 each 12/05/24 00:01 Iv Folic Acid, Pantoprazole & Thiamine Will All Auto Discontinue 12/06. XX 01/04/25 00:00 CLARIFY SOURAV Miscellaneous Information 0 each 12/05/24 00:01 Acetaminophen Supp Order Will Auto Stop 12/06. Please Renew Order If This Is To Continue. XX 01/04/25 00:00 CLARIFY SOURAV Pantoprazole Sodium 40 mg 11/06/24 09:00 12/05/24 20:28 Pantoprazole Sodium Iv 40 Mg Vial IV PUSH 40 mg Q12HR SOURAV Administration Phenyleph/Shark Oil/[place] Butter 1 supp 11/19/24 18:18 11/19/24 18:33 Phenylephrine Hcl/[place] Butter Supp.Rect (*Bkc) RECTAL 1 supp Q12HR PRN Administration Hemorrhoids Potassium Chloride 20 meq 12/06/24 09:00 Potassium Chloride 20 Meq Packet (For Liquid) PO DAILY SOURAV Potassium Chloride 40 meq 12/06/24 07:57 Potassium Chloride 20 Meq Packet (For Liquid) PO 12/06/24 07:58 ONCE ONE Psyllium Hydrophilic Mucilloid 1 packet 11/29/24 09:00 12/05/24 16:19 Psyllium Powder Packet PO Not Given QAM [facility] Thiamine HCl 100 mg 11/06/24 09:00 12/05/24 16:09 Thiamine Hcl 200 Mg/2 Ml Vial IV PUSH 100 mg QAM SOURAV Administration Tramadol HCl 50 mg 12/06/24 01:23 12/06/24 01:45 Tramadol Hcl (*Crx) 50 Mg Tablet PO 50 mg Q6H PRN Administration Pain Rated 4-6 Radiology Results: ITS Impressions Head CT 11/05/24 20:50 IMPRESSION: 1. Moderate nonspecific cerebral white matter disease, which likely represents chronic small vessel ischemic disease. 2. 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 Upper GI Series 11/08/24 12:17 IMPRESSION: 1. Slow gastric emptying likely related to postoperative ileus. No extraluminal leakage of contrast. Abdomen X-Ray 11/14/24 11:13 IMPRESSION: Nonspecific, nonobstructive bowel gas pattern. Supportive devices unchanged in position. Bilateral pleural effusions. If clinical suspicion persists, CT examination of the abdomen and pelvis (with intravenous contrast) is suggested for further evaluation. Renal Ultrasound 11/19/24 16:17 IMPRESSION: No hydronephrosis or renal calculi. Findings suggesting medical renal disease. Free fluid within the pelvis. Abdomen/Pelvis CT 11/20/24 14:44 IMPRESSION: Large bilateral pleural effusions, with bilateral lower lobe atelectasis. Infection in the lower lobes is not excluded. Single loop of dilated jejunum, likely representing localized ileus. Early/partial obstruction could appear similarly. Colonic wall thickening, as can be seen with colitis. Moderate ascites. Diffuse edema of the subcutaneous fat and mesenteric fat. Venous Doppler Study 11/22/24 10:28 IMPRESSION: 1. No deep venous thrombosis in either lower limb. Renal Scan Nuclear Medicine 11/23/24 14:21 IMPRESSION: 1. Symmetric kidney function. 2. Delayed activity clearance from both kidneys with continually rising activity curves extending over the 30 minutes of observation and without associated hydronephrosis consistent with nonspecific, nonobstructive nephropathy. Modified Barium Swallow 11/26/24 10:39 IMPRESSION: 1. Trace laryngeal penetration. 2. Please refer to the speech therapy report for recommendations. Chest/Abdomen/Pelvis CT 12/02/24 14:47 IMPRESSION: Redemonstration of subcapsular fluid collections within both the liver and spleen (as detailed above) for which abscess formation is suspected. Both collections are amenable to percutaneous drainage. Bilateral large pleural effusions, with adjacent consolidation, decreased from prior. Chest X-Ray 12/04/24 15:02 IMPRESSION: 1. Decreasing small bilateral pleural effusions with associated bibasilar atelectasis and/or pneumonia. Catheter Placement CT 12/05/24 15:17 IMPRESSION: 1. Successful CT-guided subcapsular liver abscess drainage. 2. 2 mL opaque, moore fluid was sent for aerobic and anaerobic cultures. 3. Moderate-sized pleural effusions. 4. Moderate volume of ascites. Consider peritoneal drain placement. Labs Labs: Laboratory Results - last 24 hr 12/05/24 12/05/24 12/05/24 08:52 12:04 16:55 WBC RBC Hgb Hct MCV MCH MCHC RDW Plt Count MPV Sodium Potassium Chloride Carbon Dioxide Anion Gap BUN Creatinine Estim Creat Clear Calc Estimated GFR Glucose POC Capillary Glucose 93 101 100 Calcium Phosphorus Magnesium Total Bilirubin AST ALT Alkaline Phosphatase Total Protein Albumin 12/05/24 12/05/24 12/05/24 17:21 17:21 20:56 WBC RBC Hgb Hct MCV MCH MCHC RDW Plt Count MPV Sodium Potassium 3.6 Cancelled Chloride Carbon Dioxide Anion Gap BUN Creatinine Estim Creat Clear Calc Estimated GFR Glucose POC Capillary Glucose 102 Calcium Phosphorus 4.2 Magnesium 1.8 Total Bilirubin AST ALT Alkaline Phosphatase Total Protein Albumin 12/06/24 06:20 WBC 18.8 H RBC 3.15 L Hgb 8.7 L Hct 27.9 L MCV 88.6 MCH 27.6 MCHC 31.2 L RDW 14.5 Plt Count 526 H MPV 9.9 Sodium 135 L Potassium 3.3 L Chloride 97 L Carbon Dioxide 32 H Anion Gap 6 BUN 40 H Creatinine 2.17 H Estim Creat Clear Calc 18 Estimated GFR 30 L Glucose 96 POC Capillary Glucose Calcium 7.8 L Phosphorus 3.4 Magnesium 1.7 Total Bilirubin 0.5 AST 26 ALT 11 Alkaline Phosphatase 140 H Total Protein 7.0 Albumin 2.9 L
[2024-12-06 08:34] LABS: Glucose Point of Care 89 mg/dl (65-105)
[2024-12-06] MEDS: POTASSIUM CHLORIDE 20 MEQ PACKET (FOR LIQUID) 40 MEQ PO (09:06)
[2024-12-06] MEDS: POTASSIUM CHLORIDE 20 MEQ PACKET (FOR LIQUID) PO (09:07)
[2024-12-06] MEDS: hydroCHLOROthiazide 25 MG TABLET PO (09:08)
[2024-12-06] MEDS: amLODIPine BESYLATE 10 MG TABLET PO (09:08)
[2024-12-06] MEDS: ENOXAPARIN 30 MG/0.3 ML SYRINGE SUB-Q (09:09)
[2024-12-06] MEDS: FUROSEMIDE INJ 40 MG/4 ML VIAL 20 MG IV PUSH ×2 (09:09→17:45)
[2024-12-06 11:59] LABS: Potassium 3.4 mmol/L (3.4-5.0)
--- NOTE | 2024-12-06 12:02 | PC.NURSE ---
Pt family members Bhavani and Candie called up wanting to get updates on pt. These ladies were not listed as contacts, so I informed them that I would need to ask pt if he is agreeable to them being updated. They stated that they are on the list and want info, as they have gotten it before in ICU and IMU. I again informed them of what I would need to do. They are unhappy but gave me their number. When I asked pt, he said that one sister could have it, but the other could not. I let him know that they are both on the phone. He asked what they want. I let him know that I did not know. He said well, find out. I let him know that I could transfer the phone call in to him, but I would be unable to relay communications back and forth. Pt states they are after his money; I empathized with pt, but told him we needed him to decide if he wanted anyone other than brother, [place], to know his medical info. He said no. I called Supriya back, but her phone went to a recording stating she did not have voice mail set up. I let her know that he did not want them on his chart. She asked why not. I stated that he simply stated he didn't want them on there. She inquired why he would tell her yesterday, but not today. Again, I let her know that is his right to choose. she asked if they could be transferred in to his phone to talk with him. I said yes, and transferred in and assisted pt to answer phone.
[2024-12-06 12:22] LABS: Glucose Point of Care 101 mg/dl (65-105)
--- NOTE | 2024-12-06 12:37 | P.PNIM_ITS ---
Progress Note: A&P Assessment and Plan (1) Metabolic acidosis: Code(s): E87.20 - Acidosis, unspecified Status: Acute Assessment and Plan: resolved (2) DEBI (acute kidney injury): Code(s): N17.9 - Acute kidney failure, unspecified Status: Acute Assessment and Plan: Creatinine improving Nephrology following (3) Perforated gastric ulcer: Qualifiers: Gastric ulcer chronicity: acute Qualified Code(s): K25.1 - Acute gastric ulcer with perforation Code(s): K25.5 - Chronic or unspecified gastric ulcer with perforation Status: Acute Assessment and Plan: Resolved Continue with Protonix and monitor hgb (4) COPD (chronic obstructive pulmonary disease): Code(s): J44.9 - Chronic obstructive pulmonary disease, unspecified Status: Acute Assessment and Plan: Stable on current medications. Will continue current treatment. (5) Sepsis: Code(s): A41.9 - Sepsis, unspecified organism Status: Acute Assessment and Plan: Completed antibiotics (6) Pneumonia: Code(s): J18.9 - Pneumonia, unspecified organism Status: Acute Assessment and Plan: Completed antibiotics pneumonia resolved Repeat CXR showed pulm edema and Pleural effusion now on lasix (7) Acute hypoxic respiratory failure: Code(s): J96.01 - Acute respiratory failure with hypoxia Status: Acute Assessment and Plan: resolved CXR showed pulm edema and pleural effusion continue Lasix 20mg bid and monitor renal function ECHO from june normal function monitor (8) Sepsis associated hypotension: Code(s): A41.9 - Sepsis, unspecified organism; I95.9 - Hypotension, unspecified Status: Acute Assessment and Plan: completed antibiotics (9) EtOH dependence: Code(s): F10.20 - Alcohol dependence, uncomplicated Status: Acute Assessment and Plan: Counselling given Plan Diarrhea Resolved Stool culture and c diff negative Likely from pureed diet started on PRN imodium leukocytosis Worsening despite no evidence of infection WBC continues to rise. Surgery re-evaluated the re-demonstration of subcapsular fluid collections within both the liver and spleen for which abscess formation is suspected.. Underwent perc drain on 12/05 Repeat blood culture pending. CXR done several days ago showed pulm edema and patient has responded to lasix and off oxygen Lactic acid normal Repeated blood culture Code status DNR DVT prophylaxis on Sq Lovenox PT/OT following Awaiting placement to [facility] Subjective Date/time seen: 12/06/24 12:37 Interval history: Patient wanted to live normal life and normal food. He reports sick of the foods given in the hospital. Review of Systems Review of Systems: Pt with a dry throat not talking loudly ROS unobtainable: Yes unobtainable due to endotracheal tube, unobtainable due to medical condition and unobtainable due to mental status Exam Narrative: General: More alert toady Lungs/Chest: Trachea central Coarse BS B/L, No crackles or wheezing. Cardiac: RRR. Normal S1 S2. No murmurs Abdomen: Decreased but present bowel sounds. Extremities: No clubbing, cyanosis or edema. Warm : Shen in place Neurologic: Patient is able to move all 4 extremities spontaneously. Objective Data Vital Signs Vital Signs: Vital Signs - 24 hr 12/05/24 15:53 12/05/24 22:00 12/06/24 05:57 Temperature 97.7 F 97.8 F 98.2 F Pulse Rate 72 72 76 Respiratory Rate 20 16 12 Blood Pressure 143/80 H 138/62 145/80 H Pulse Oximetry 98 98 96 Intake/Output Intake/Output: Intake & Output 12/03/24 12/04/24 12/05/24 12/06/24 23:59 23:59 23:59 23:59 Intake Total 520 1000 690 400 Output Total 1350 1800 100 Balance -830 -800 690 300 Meds/Results Medications: Active Medications Generic Name Dose Route Start Last Admin Trade Name Freq PRN Reason Stop Dose Admin Acetaminophen 650 mg 11/06/24 14:48 11/07/24 19:10 Acetaminophen 650 Mg Suppository RECTAL 650 mg Q4H PRN Administration Mild Pain (1-3) or Fever Acetaminophen 650 mg 11/14/24 15:21 12/05/24 16:06 Acetaminophen Elixir 325 Mg/10.15 Ml Udc FEED TUBE 650 mg Q4H PRN Administration Headache, Fever, Mild Pain Albuterol 2.5 mg 11/09/24 15:38 12/02/24 07:15 Albuterol Sulfate Neb 2.5 Mg/3 Ml Inh INHALATION 2.5 mg Q12HR PRN Administration Shortness Of Breath Amlodipine Besylate 10 mg 12/02/24 09:00 12/06/24 09:08 Amlodipine Besylate 10 Mg Tablet PO 10 mg DAILY SOURAV Administration Dextrose 12.5 gm 11/06/24 07:40 11/21/24 16:58 Dextrose 50% 25 Gm/50 Ml Syringe IV PUSH 12.5 gm PRN PRN Administration Hypoglycemia Protocol Enoxaparin Sodium 30 mg 11/29/24 09:00 12/06/24 09:09 Enoxaparin 30 Mg/0.3 Ml Syringe SUB-Q 30 mg DAILY SOURAV Administration Furosemide 20 mg 11/28/24 17:00 12/06/24 09:09 Furosemide Inj 40 Mg/4 Ml Vial IV PUSH 20 mg BID SOURAV Administration Glucagon 1 mg 11/06/24 07:40 Glucagon For Inj 1 Mg Vial IM PRN PRN Hypoglycemia Protocol Glucose 15 gm 11/06/24 07:40 Glucose Oral Gel 15 Gm Of Glucse In 37.5 Gm Tube PO PRN PRN Hypoglycemia Protocol Hydralazine HCl 10 mg 11/10/24 09:16 11/30/24 06:00 Hydralazine Hcl 20 Mg/Ml Vial IV PUSH 10 mg Q4HR PRN Administration Blood Pressure - High Hydrochlorothiazide 25 mg 12/03/24 09:00 12/06/24 09:08 Hydrochlorothiazide 25 Mg Tablet PO 25 mg QAM SOURAV Administration Hydromorphone HCl 1 mg 12/06/24 01:25 Hydromorphone Hcl Inj (*Crx) 1 Mg/Ml Syr IV PUSH Q3H PRN Breakthrough Pain Dextrose 1,000 mls @ 100 mls/hr 11/06/24 07:40 Dextrose 5% 1,000 Ml IVPB PRN PRN Hypoglycemia Protocol Meropenem 500 mg in 100 mls @ 200 mls/hr 12/04/24 18:00 12/06/24 05:43 IVPB 200 mls/hr Q12H SOURAV Administration Insulin Aspart 2 - 5 units 11/18/24 08:00 12/06/24 08:20 Insulin Aspart (*Bkc) 100 Units/Ml SUB-Q Not Given TIDWM SOURAV Protocol Loperamide HCl 2 mg 12/01/24 10:59 12/01/24 15:17 Loperamide Hcl 2 Mg Capsule PO 2 mg PRN PRN Administration Diarrhea Mirtazapine 15 mg 11/30/24 21:00 12/05/24 20:28 Mirtazapine 15 Mg Tablet PO 15 mg HS SOURAV Administration Miscellaneous Information 0 each 12/05/24 00:01 Renew Naloxone And Ondansetron Orders If Still Needed Or Will Auto D/C XX 01/04/25 00:00 CLARIFY SOURAV Miscellaneous Information 0 each 12/05/24 00:01 Iv Folic Acid, Pantoprazole & Thiamine Will All Auto Discontinue 12/06. XX 01/04/25 00:00 CLARIFY SOURAV Miscellaneous Information 0 each 12/05/24 00:01 Acetaminophen Supp Order Will Auto Stop 12/06. Please Renew Order If This Is To Continue. XX 01/04/25 00:00 CLARIFY SOURAV Phenyleph/Shark Oil/[place] Butter 1 supp 11/19/24 18:18 11/19/24 18:33 Phenylephrine Hcl/[place] Butter Supp.Rect (*Bkc) RECTAL 1 supp Q12HR PRN Administration Hemorrhoids Potassium Chloride 20 meq 12/06/24 09:00 12/06/24 09:07 Potassium Chloride 20 Meq Packet (For Liquid) PO 20 meq DAILY SOURAV Administration Psyllium Hydrophilic Mucilloid 1 packet 11/29/24 09:00 12/05/24 16:19 Psyllium Powder Packet PO Not Given QAM SOURAV Tramadol HCl 50 mg 12/06/24 01:23 12/06/24 09:08 Tramadol Hcl (*Crx) 50 Mg Tablet PO 50 mg Q6H PRN Administration Pain Rated 4-6 Radiology Results: ITS Impressions Head CT 11/05/24 20:50 IMPRESSION: 1. Moderate nonspecific cerebral white matter disease, which likely represents chronic small vessel ischemic disease. 2. 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 Upper GI Series 11/08/24 12:17 IMPRESSION: 1. Slow gastric emptying likely related to postoperative ileus. No extraluminal leakage of contrast. Abdomen X-Ray 11/14/24 11:13 IMPRESSION: Nonspecific, nonobstructive bowel gas pattern. Supportive devices unchanged in position. Bilateral pleural effusions. If clinical suspicion persists, CT examination of the abdomen and pelvis (with intravenous contrast) is suggested for further evaluation. Renal Ultrasound 11/19/24 16:17 IMPRESSION: No hydronephrosis or renal calculi. Findings suggesting medical renal disease. Free fluid within the pelvis. Abdomen/Pelvis CT 11/20/24 14:44 IMPRESSION: Large bilateral pleural effusions, with bilateral lower lobe atelectasis. Infection in the lower lobes is not excluded. Single loop of dilated jejunum, likely representing localized ileus. Early/partial obstruction could appear similarly. Colonic wall thickening, as can be seen with colitis. Moderate ascites. Diffuse edema of the subcutaneous fat and mesenteric fat. Venous Doppler Study 11/22/24 10:28 IMPRESSION: 1. No deep venous thrombosis in either lower limb. Renal Scan Nuclear Medicine 11/23/24 14:21 IMPRESSION: 1. Symmetric kidney function. 2. Delayed activity clearance from both kidneys with continually rising activity curves extending over the 30 minutes of observation and without associated hydronephrosis consistent with nonspecific, nonobstructive nephropathy. Modified Barium Swallow 11/26/24 10:39 IMPRESSION: 1. Trace laryngeal penetration. 2. Please refer to the speech therapy report for recommendations. Chest/Abdomen/Pelvis CT 12/02/24 14:47 IMPRESSION: Redemonstration of subcapsular fluid collections within both the liver and spleen (as detailed above) for which abscess formation is suspected. Both collections are amenable to percutaneous drainage. Bilateral large pleural effusions, with adjacent consolidation, decreased from prior. Chest X-Ray 12/04/24 15:02 IMPRESSION: 1. Decreasing small bilateral pleural effusions with associated bibasilar atelectasis and/or pneumonia. Catheter Placement CT 12/05/24 15:17 IMPRESSION: 1. Successful CT-guided subcapsular liver abscess drainage. 2. 2 mL opaque, moore fluid was sent for aerobic and anaerobic cultures. 3. Moderate-sized pleural effusions. 4. Moderate volume of ascites. Consider peritoneal drain placement. Labs Labs: Laboratory Results - last 24 hr 12/05/24 12/05/24 12/05/24 16:55 17:21 17:21 WBC RBC Hgb Hct MCV MCH MCHC RDW Plt Count MPV Sodium Potassium 3.6 Cancelled Chloride Carbon Dioxide Anion Gap BUN Creatinine Estim Creat Clear Calc Estimated GFR Glucose POC Capillary Glucose 100 Calcium Phosphorus 4.2 Magnesium 1.8 Total Bilirubin AST ALT Alkaline Phosphatase Total Protein Albumin 12/05/24 12/06/24 12/06/24 20:56 06:20 08:20 WBC 18.8 H RBC 3.15 L Hgb 8.7 L Hct 27.9 L MCV 88.6 MCH 27.6 MCHC 31.2 L RDW 14.5 Plt Count 526 H MPV 9.9 Sodium 135 L Potassium 3.3 L Chloride 97 L Carbon Dioxide 32 H Anion Gap 6 BUN 40 H Creatinine 2.17 H Estim Creat Clear Calc 18 Estimated GFR 30 L Glucose 96 POC Capillary Glucose 102 89 Calcium 7.8 L Phosphorus 3.4 Magnesium 1.7 Total Bilirubin 0.5 AST 26 ALT 11 Alkaline Phosphatase 140 H Total Protein 7.0 Albumin 2.9 L 12/06/24 12/06/24 11:33 12:09 WBC RBC Hgb Hct MCV MCH MCHC RDW Plt Count MPV Sodium Potassium 3.4 Chloride Carbon Dioxide Anion Gap BUN Creatinine Estim Creat Clear Calc Estimated GFR Glucose POC Capillary Glucose 101 Calcium Phosphorus Magnesium Total Bilirubin AST ALT Alkaline Phosphatase Total Protein Albumin Quality VTE Prophylaxis VTE prophylaxis: mechanical ordered and pharmacologic ordered Hospitalist MIPS Advance Care Plan I have confirmed that the patient's Advanced Care Plan is present, code status is documented, or surrogate decision maker is listed in patient medical record.: Yes Medication Reconciliation I have utilized all available resources to obtain, update and review the patients current medications (includes all prescriptions, OTC, herbals, cannabis, and nutritional supplements).: Yes
--- NOTE | 2024-12-06 13:11 | P.PNNP_ITS ---
Progress Note: A&P Assessment and Plan (1) DEBI (acute kidney injury): Code(s): N17.9 - Acute kidney failure, unspecified Status: Acute Assessment and Plan: * relatively stable * initial insult on admission was due to sepsis hypotension, fluid shifts and hypovolemia * resolved with supportive therapy * second episode noted on 11/18...creatinine increased from 0.9 -> 2.2 -> 3.0mg/dl...etc * etiology of second episode is not entirely clear... * suspect ATN from prerenal azotemia secondary to third spacing given recent abdominal surgery compounded by his diminished oral intake * recent CT scan noted (ascites, pleural effusions, anasarca...) * evaluation to date noted: * renal ultrasound without obstruction but with medical renal disease * urine electrolytes prerenal * UA not indicative of infection * urine eosinophils negative * mild proteinuria noted (~ 1300mg proteinuria) * CPK low * renal scan suggestive of ATN * creatinine peaked/plateaued at 4.20mg/dl with ongoing improvement noted * renal function tolerating gentle diuresis (IV lasix 20mg bid) * suspect new baseline creatinine of 2.0 - 2.5mg/dl * it could further improve with time.... * follow trend of repeat labs and UOP (2) Perforated gastric ulcer: Qualifiers: Gastric ulcer chronicity: acute Qualified Code(s): K25.1 - Acute gastric ulcer with perforation Code(s): K25.5 - Chronic or unspecified gastric ulcer with perforation Status: Acute Assessment and Plan: * s/p exploratory laparotomy, extensive lysis of adhesions, intra-abdominal washout, repair of perforated gastric ulcer with omental patch * on antibiotics * local wound care * Surgery following (3) Hypertension: Code(s): I10 - Essential (primary) hypertension Status: Chronic Assessment and Plan: * as noted by recent BP readings * likely an undiagnosed condition * on amlodpine and PRN IV hydralazine * titrate and adjust medications as needed * follow trend of hemodynamics (4) COPD (chronic obstructive pulmonary disease): Code(s): J44.9 - Chronic obstructive pulmonary disease, unspecified Status: Acute Assessment and Plan: * not in exacerbation * bronchodilators as needed (5) Severe protein-calorie malnutrition: Code(s): E43 - Unspecified severe protein-calorie malnutrition Status: Acute Assessment and Plan: * on dronabinol 5mg bid * advance diet as tolerated (6) EtOH dependence: Code(s): F10.20 - Alcohol dependence, uncomplicated Status: Acute Assessment and Plan: * known history * no evidence of withdrawal since admission * continue thiamine and folic acid Not much else to add -- will continue to follow from a distance L Subjective Date/time seen: 12/06/24 13:11 Interval history: Follow-up for acute kidney injury/acute renal failure. Renal function relatively stable at this time; getting tired of being in the hospital and the food here in the hospital; anxious for discharge; no apparent distress noted; no issues/events overnight or earlier this morning. Exam 2 Narrative: General: elderly male in NAD Heart: normal S1 and S2; no rub Lungs: clear anteriorly; decreased at bases Abdomen: soft and nontender; positive bowel sounds Extremities: no cyanosis or clubbing; no edema Skin: warm and dry Objective Data Vital Signs Vital Signs: Vital Signs Temp Pulse Resp BP Pulse Ox 12/06/24 05:57 98.2 F 76 12 145/80 H 96 12/05/24 22:00 97.8 F 72 16 138/62 98 12/05/24 15:53 97.7 F 72 20 143/80 H 98 Intake/Output Intake/Output: Intake & Output 12/03/24 12/04/24 12/05/24 12/06/24 23:59 23:59 23:59 23:59 Intake Total 520 6145 841 1817 Output Total 1350 1800 100 Balance -830 -800 690 900 Meds/Results Medications: Active Medications Generic Name Dose Route Start Last Admin Trade Name Freq PRN Reason Stop Dose Admin Acetaminophen 650 mg 11/14/24 15:21 12/05/24 16:06 Acetaminophen Elixir 325 Mg/10.15 Ml Udc FEED TUBE 650 mg Q4H PRN Administration Headache, Fever, Mild Pain Albuterol 2.5 mg 11/09/24 15:38 12/02/24 07:15 Albuterol Sulfate Neb 2.5 Mg/3 Ml Inh INHALATION 2.5 mg Q12HR PRN Administration Shortness Of Breath Amlodipine Besylate 10 mg 12/02/24 09:00 12/06/24 09:08 Amlodipine Besylate 10 Mg Tablet PO 10 mg DAILY SOURAV Administration Dextrose 12.5 gm 11/06/24 07:40 11/21/24 16:58 Dextrose 50% 25 Gm/50 Ml Syringe IV PUSH 12.5 gm PRN PRN Administration Hypoglycemia Protocol Enoxaparin Sodium 30 mg 11/29/24 09:00 12/06/24 09:09 Enoxaparin 30 Mg/0.3 Ml Syringe SUB-Q 30 mg DAILY SOURAV Administration Furosemide 20 mg 11/28/24 17:00 12/06/24 09:09 Furosemide Inj 40 Mg/4 Ml Vial IV PUSH 20 mg BID SOURAV Administration Glucagon 1 mg 11/06/24 07:40 Glucagon For Inj 1 Mg Vial IM PRN PRN Hypoglycemia Protocol Glucose 15 gm 11/06/24 07:40 Glucose Oral Gel 15 Gm Of Glucse In 37.5 Gm Tube PO PRN PRN Hypoglycemia Protocol Hydralazine HCl 10 mg 11/10/24 09:16 11/30/24 06:00 Hydralazine Hcl 20 Mg/Ml Vial IV PUSH 10 mg Q4HR PRN Administration Blood Pressure - High Hydrochlorothiazide 25 mg 12/03/24 09:00 12/06/24 09:08 Hydrochlorothiazide 25 Mg Tablet PO 25 mg QAM SOURAV Administration Hydromorphone HCl 1 mg 12/06/24 01:25 Hydromorphone Hcl Inj (*Crx) 1 Mg/Ml Syr IV PUSH Q3H PRN Breakthrough Pain Dextrose 1,000 mls @ 100 mls/hr 11/06/24 07:40 Dextrose 5% 1,000 Ml IVPB PRN PRN Hypoglycemia Protocol Meropenem 500 mg in 100 mls @ 200 mls/hr 12/04/24 18:00 12/06/24 05:43 IVPB 200 mls/hr Q12H SOURAV Administration Insulin Aspart 2 - 5 units 11/18/24 08:00 12/06/24 08:20 Insulin Aspart (*Bkc) 100 Units/Ml SUB-Q Not Given TIDWM SOURAV Protocol Loperamide HCl 2 mg 12/01/24 10:59 12/01/24 15:17 Loperamide Hcl 2 Mg Capsule PO 2 mg PRN PRN Administration Diarrhea Mirtazapine 15 mg 11/30/24 21:00 12/05/24 20:28 Mirtazapine 15 Mg Tablet PO 15 mg HS SOURAV Administration Miscellaneous Information 0 each 12/05/24 00:01 Renew Naloxone And Ondansetron Orders If Still Needed Or Will Auto D/C XX 01/04/25 00:00 CLARIFY SOURAV Miscellaneous Information 0 each 12/05/24 00:01 Iv Folic Acid, Pantoprazole & Thiamine Will All Auto Discontinue 12/06. XX 01/04/25 00:00 CLARIFY SOURAV Miscellaneous Information 0 each 12/05/24 00:01 Acetaminophen Supp Order Will Auto Stop 12/06. Please Renew Order If This Is To Continue. XX 01/04/25 00:00 CLARIFY SOURAV Phenyleph/Shark Oil/[place] Butter 1 supp 11/19/24 18:18 11/19/24 18:33 Phenylephrine Hcl/[place] Butter Supp.Rect (*Bkc) RECTAL 1 supp Q12HR PRN Administration Hemorrhoids Potassium Chloride 20 meq 12/06/24 09:00 12/06/24 09:07 Potassium Chloride 20 Meq Packet (For Liquid) PO 20 meq DAILY SOURAV Administration Psyllium Hydrophilic Mucilloid 1 packet 11/29/24 09:00 12/05/24 16:19 Psyllium Powder Packet PO Not Given QAM SOURAV Tramadol HCl 50 mg 12/06/24 01:23 12/06/24 09:08 Tramadol Hcl (*Crx) 50 Mg Tablet PO 50 mg Q6H PRN Administration Pain Rated 4-6 Radiology Results: ITS Impressions Head CT 11/05/24 20:50 IMPRESSION: 1. Moderate nonspecific cerebral white matter disease, which likely represents chronic small vessel ischemic disease. 2. 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 Upper GI Series 11/08/24 12:17 IMPRESSION: 1. Slow gastric emptying likely related to postoperative ileus. No extraluminal leakage of contrast. Abdomen X-Ray 11/14/24 11:13 IMPRESSION: Nonspecific, nonobstructive bowel gas pattern. Supportive devices unchanged in position. Bilateral pleural effusions. If clinical suspicion persists, CT examination of the abdomen and pelvis (with intravenous contrast) is suggested for further evaluation. Renal Ultrasound 11/19/24 16:17 IMPRESSION: No hydronephrosis or renal calculi. Findings suggesting medical renal disease. Free fluid within the pelvis. Abdomen/Pelvis CT 11/20/24 14:44 IMPRESSION: Large bilateral pleural effusions, with bilateral lower lobe atelectasis. Infection in the lower lobes is not excluded. Single loop of dilated jejunum, likely representing localized ileus. Early/partial obstruction could appear similarly. Colonic wall thickening, as can be seen with colitis. Moderate ascites. Diffuse edema of the subcutaneous fat and mesenteric fat. Venous Doppler Study 11/22/24 10:28 IMPRESSION: 1. No deep venous thrombosis in either lower limb. Renal Scan Nuclear Medicine 11/23/24 14:21 IMPRESSION: 1. Symmetric kidney function. 2. Delayed activity clearance from both kidneys with continually rising activity curves extending over the 30 minutes of observation and without associated hydronephrosis consistent with nonspecific, nonobstructive nephropathy. Modified Barium Swallow 11/26/24 10:39 IMPRESSION: 1. Trace laryngeal penetration. 2. Please refer to the speech therapy report for recommendations. Chest/Abdomen/Pelvis CT 12/02/24 14:47 IMPRESSION: Redemonstration of subcapsular fluid collections within both the liver and spleen (as detailed above) for which abscess formation is suspected. Both collections are amenable to percutaneous drainage. Bilateral large pleural effusions, with adjacent consolidation, decreased from prior. Chest X-Ray 12/04/24 15:02 IMPRESSION: 1. Decreasing small bilateral pleural effusions with associated bibasilar atelectasis and/or pneumonia. Catheter Placement CT 12/05/24 15:17 IMPRESSION: 1. Successful CT-guided subcapsular liver abscess drainage. 2. 2 mL opaque, moore fluid was sent for aerobic and anaerobic cultures. 3. Moderate-sized pleural effusions. 4. Moderate volume of ascites. Consider peritoneal drain placement. Labs Labs: Laboratory Tests 12/06/24 06:20 12/06/24 06:20 Sodium 135 L Potassium 3.3 L Chloride 97 L Carbon Dioxide 32 H Anion Gap 6 BUN 40 H Creatinine 2.17 H Estim Creat Clear Calc 18 Estimated GFR 30 L Glucose 96 Calcium 7.8 L Phosphorus 3.4 Magnesium 1.7 Total Bilirubin 0.5 AST 26 ALT 11 Alkaline Phosphatase 140 H Total Protein 7.0 Albumin 2.9 L
[2024-12-06 14:00] VITALS: BP 136/79; PULSE 76; RESP 20; TEMP 35.8; O2SAT 100
--- NOTE | 2024-12-06 14:32 | PCPTNOTE ---
Patient declied PT. Pt states I have been doing my therapy. I was just completeing my exercises before you came in. Patient states I may want to get up later to pack a bag to go home. Educated patient on the importance of participating in PT to improve strength and mobility. Patient states I have the strength but I just need to do things on my own time. PT will continue to follow per plan of care.
[2024-12-06 16:37] LABS: Glucose Point of Care 98 mg/dl (65-105)
[2024-12-06 20:34] LABS: Glucose Point of Care 123 mg/dl (65-105)
[2024-12-06] MEDS: MIRTAZAPINE 15 MG TABLET PO (21:23)
[2024-12-06 21:49] VITALS: BP 129/80; PULSE 78; RESP 20; TEMP 36.9; O2SAT 97
[2024-12-07] MEDS: MEROPENEM 500 MG/NS 100 ML 500 MG/100 ML BAG 200 MG IVPB ×2 (05:46→17:19)
[2024-12-07 06:00] VITALS: BP 137/82; PULSE 80; RESP 20; TEMP 36.8; O2SAT 92
[2024-12-07 08:26] LABS: Glucose Point of Care 89 mg/dl (65-105)
[2024-12-07 08:40] LABS: Basophils Absolute Auto 0.1 K/mm3 (0.0-0.1); Basophils Percent Auto 0.3 % (0.2-1.2); Hematocrit 30.7 % (42.0-52.0); Hemoglobin 9.7 g/dL (14.0-18.0); Immature Granulocyte Absolute 0.21 K/mm3 (0.00-0.031); Immature Granulocyte Percent A 0.9 % (0-0.5); Lymphocytes Absolute Auto 1.62 K/mm3 (0.9-3.2); Lymphocytes Percent Auto 7.2 % (18.3-44.2); Mean Corpuscular HGB Conc 31.6 g/dl (32-36); Mean Corpuscular Hemoglobin 28.1 pg (26-34); Mean Platelet Volume 10.2 fl (7.4-10.4); Monocytes Absolute Auto 0.9 K/mm3 (0.1-0.6); Monocytes Percent Auto 4.2 % (2.6-8.5); Neutrophils Absolute Auto 19.6 K/mm3 (1.3-6.7); Neutrophils Percent Auto 87.4 % (45.5-73.1); Platelet Count Result 589 k/mm3 (150-375); Red Blood Count 3.45 M/mm3 (4.6-6.20); Red Cell Distribution Width 14.3 % (11.5-14.5); White Blood Count 22.4 K/mm3 (4.5-10.0)
[2024-12-07 08:58] LABS: Alanine Aminotransferase 11 U/L (6-50); Albumin Level 3.3 g/dL (3.5-5.1); Alkaline Phosphatase 152 U/L (38-126); Anion Gap 8 mmol/L (4-12); Aspartate Amino Transferase 24 U/L (17-59); Bilirubin,Total 0.6 mg/dL (0.2-1.3); Blood Urea Nitrogen 36 mg/dL (9-20); Calcium 8.7 mg/dL (8.4-10.2); Carbon Dioxide 33 mmol/L (22-30); Chloride 95 mmol/L (98-107); Estimated CRCL calculation 19 ml/min; Estimated Glomerular Filt Rate 36; Glucose 92 mg/dL (65-110); Potassium 3.9 mmol/L (3.4-5.0); Sodium 136 mmol/L (137-145)
[2024-12-07 09:00] VITALS: O2SAT 100
[2024-12-07] MEDS: hydroCHLOROthiazide 25 MG TABLET PO (09:01)
[2024-12-07] MEDS: ENOXAPARIN 30 MG/0.3 ML SYRINGE SUB-Q (09:01)
[2024-12-07] MEDS: amLODIPine BESYLATE 10 MG TABLET PO (09:01)
[2024-12-07] MEDS: POTASSIUM CHLORIDE 20 MEQ PACKET (FOR LIQUID) PO (09:01)
[2024-12-07] MEDS: FUROSEMIDE INJ 40 MG/4 ML VIAL 20 MG IV PUSH ×2 (09:02→17:19)
--- NOTE | 2024-12-07 09:14 | P.PNGS_ITS ---
Progress Note: A&P Assessment and Plan (1) Liver abscess: Code(s): K75.0 - Abscess of liver Status: Acute Assessment and Plan: still c stable leukocytosis, no fevers, exam benign, minimal output from drains, cont abx, likely repeat CT early next week to assess abscesses, await transfer to [facility] Subjective Subjective Date/Time Seen: 12/07/24 09:14 Interval history: no acute issues, wants to leave, awaiting transfer to [facility], drains c minimal serous output Review of Systems Review of Systems: All systems reviewed & are unremarkable except as noted in HPI and below Exam Const: General: cooperative, comfortable, no acute distress and ill appearing Resp: Auscultation: diminished lung sounds Cardio: Rate: regular rate Rhythm: regular rhythm GI: Inspection: normal to inspection, non-distended and incision GI Palp: No abdominal tenderness and Yes Soft to palpation Other: drains x 2 c minimal serous output Objective Data Vital Signs Vital Signs: Vital Signs - 24 hr 12/06/24 14:00 12/06/24 21:49 12/07/24 06:00 Temperature 35.8 C L 36.9 C 36.8 C Pulse Rate 76 78 80 Respiratory Rate 20 20 20 Blood Pressure 136/79 129/80 137/82 Pulse Oximetry 100 97 92 Intake/Output Intake/Output: Intake & Output 12/04/24 12/05/24 12/06/24 12/07/24 23:59 23:59 23:59 23:59 Intake Total 8217 600 1051 200 Output Total 1800 100 150 Balance -790 631 9630 50 Meds/Results Medications: Active Medications Generic Name Dose Route Start Last Admin Trade Name Dnoal PRN Reason Stop Dose Admin Acetaminophen 650 mg 11/14/24 15:21 12/05/24 16:06 Acetaminophen Elixir 325 Mg/10.15 Ml Udc FEED TUBE 650 mg Q4H PRN Administration Headache, Fever, Mild Pain Albuterol 2.5 mg 11/09/24 15:38 12/02/24 07:15 Albuterol Sulfate Neb 2.5 Mg/3 Ml Inh INHALATION 2.5 mg Q12HR PRN Administration Shortness Of Breath Amlodipine Besylate 10 mg 12/02/24 09:00 12/07/24 09:01 Amlodipine Besylate 10 Mg Tablet PO 10 mg DAILY SOURAV Administration Dextrose 12.5 gm 11/06/24 07:40 11/21/24 16:58 Dextrose 50% 25 Gm/50 Ml Syringe IV PUSH 12.5 gm PRN PRN Administration Hypoglycemia Protocol Enoxaparin Sodium 30 mg 11/29/24 09:00 12/07/24 09:01 Enoxaparin 30 Mg/0.3 Ml Syringe SUB-Q 30 mg DAILY SOURAV Administration Furosemide 20 mg 11/28/24 17:00 12/07/24 09:02 Furosemide Inj 40 Mg/4 Ml Vial IV PUSH 20 mg BID SOURAV Administration Glucagon 1 mg 11/06/24 07:40 Glucagon For Inj 1 Mg Vial IM PRN PRN Hypoglycemia Protocol Glucose 15 gm 11/06/24 07:40 Glucose Oral Gel 15 Gm Of Glucse In 37.5 Gm Tube PO PRN PRN Hypoglycemia Protocol Hydralazine HCl 10 mg 11/10/24 09:16 11/30/24 06:00 Hydralazine Hcl 20 Mg/Ml Vial IV PUSH 10 mg Q4HR PRN Administration Blood Pressure - High Hydrochlorothiazide 25 mg 12/03/24 09:00 12/07/24 09:01 Hydrochlorothiazide 25 Mg Tablet PO 25 mg QAM SOURAV Administration Hydromorphone HCl 1 mg 12/06/24 01:25 Hydromorphone Hcl Inj (*Crx) 1 Mg/Ml Syr IV PUSH Q3H PRN Breakthrough Pain Dextrose 1,000 mls @ 100 mls/hr 11/06/24 07:40 Dextrose 5% 1,000 Ml IVPB PRN PRN Hypoglycemia Protocol Meropenem 500 mg in 100 mls @ 200 mls/hr 12/04/24 18:00 12/07/24 05:46 IVPB 200 mls/hr Q12H SOURAV Administration Insulin Aspart 2 - 5 units 11/18/24 08:00 12/07/24 09:02 Insulin Aspart (*Bkc) 100 Units/Ml SUB-Q Not Given TIDWM SOURAV Protocol Loperamide HCl 2 mg 12/01/24 10:59 12/01/24 15:17 Loperamide Hcl 2 Mg Capsule PO 2 mg PRN PRN Administration Diarrhea Mirtazapine 15 mg 11/30/24 21:00 12/06/24 21:23 Mirtazapine 15 Mg Tablet PO 15 mg HS SOURAV Administration Miscellaneous Information 0 each 12/05/24 00:01 Renew Naloxone And Ondansetron Orders If Still Needed Or Will Auto D/C XX 01/04/25 00:00 CLARIFY SOURAV Miscellaneous Information 0 each 12/05/24 00:01 Iv Folic Acid, Pantoprazole & Thiamine Will All Auto Discontinue 12/06. XX 01/04/25 00:00 CLARIFY SOURAV Miscellaneous Information 0 each 12/05/24 00:01 Acetaminophen Supp Order Will Auto Stop 12/06. Please Renew Order If This Is To Continue. XX 01/04/25 00:00 CLARIFY SOURAV Phenyleph/Shark Oil/[place] Butter 1 supp 11/19/24 18:18 11/19/24 18:33 Phenylephrine Hcl/[place] Butter Supp.Rect (*Bkc) RECTAL 1 supp Q12HR PRN Administration Hemorrhoids Potassium Chloride 20 meq 12/06/24 09:00 12/07/24 09:01 Potassium Chloride 20 Meq Packet (For Liquid) PO 20 meq DAILY SOURAV Administration Psyllium Hydrophilic Mucilloid 1 packet 11/29/24 09:00 12/07/24 09:02 Psyllium Powder Packet PO Not Given QAM SOURAV Tramadol HCl 50 mg 12/06/24 01:23 12/06/24 09:08 Tramadol Hcl (*Crx) 50 Mg Tablet PO 50 mg Q6H PRN Administration Pain Rated 4-6 Radiology Results: ITS Impressions Head CT 11/05/24 20:50 IMPRESSION: 1. Moderate nonspecific cerebral white matter disease, which likely represents chronic small vessel ischemic disease. 2. 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 Upper GI Series 11/08/24 12:17 IMPRESSION: 1. Slow gastric emptying likely related to postoperative ileus. No extraluminal leakage of contrast. Abdomen X-Ray 11/14/24 11:13 IMPRESSION: Nonspecific, nonobstructive bowel gas pattern. Supportive devices unchanged in position. Bilateral pleural effusions. If clinical suspicion persists, CT examination of the abdomen and pelvis (with intravenous contrast) is suggested for further evaluation. Renal Ultrasound 11/19/24 16:17 IMPRESSION: No hydronephrosis or renal calculi. Findings suggesting medical renal disease. Free fluid within the pelvis. Abdomen/Pelvis CT 11/20/24 14:44 IMPRESSION: Large bilateral pleural effusions, with bilateral lower lobe atelectasis. Infection in the lower lobes is not excluded. Single loop of dilated jejunum, likely representing localized ileus. Early/partial obstruction could appear similarly. Colonic wall thickening, as can be seen with colitis. Moderate ascites. Diffuse edema of the subcutaneous fat and mesenteric fat. Venous Doppler Study 11/22/24 10:28 IMPRESSION: 1. No deep venous thrombosis in either lower limb. Renal Scan Nuclear Medicine 11/23/24 14:21 IMPRESSION: 1. Symmetric kidney function. 2. Delayed activity clearance from both kidneys with continually rising activity curves extending over the 30 minutes of observation and without associated hydronephrosis consistent with nonspecific, nonobstructive nephropathy. Modified Barium Swallow 11/26/24 10:39 IMPRESSION: 1. Trace laryngeal penetration. 2. Please refer to the speech therapy report for recommendations. Chest/Abdomen/Pelvis CT 12/02/24 14:47 IMPRESSION: Redemonstration of subcapsular fluid collections within both the liver and spleen (as detailed above) for which abscess formation is suspected. Both collections are amenable to percutaneous drainage. Bilateral large pleural effusions, with adjacent consolidation, decreased from prior. Chest X-Ray 12/04/24 15:02 IMPRESSION: 1. Decreasing small bilateral pleural effusions with associated bibasilar atelectasis and/or pneumonia. Catheter Placement CT 12/05/24 15:17 IMPRESSION: 1. Successful CT-guided subcapsular liver abscess drainage. 2. 2 mL opaque, moore fluid was sent for aerobic and anaerobic cultures. 3. Moderate-sized pleural effusions. 4. Moderate volume of ascites. Consider peritoneal drain placement. Labs Labs: Laboratory Results - last 24 hr 12/06/24 12/06/24 12/06/24 11:33 12:09 16:21 WBC RBC Hgb Hct MCV MCH MCHC RDW Plt Count MPV Immature Gran % (Auto) Neut % (Auto) Lymph % (Auto) [place] % (Auto) Eos % (Auto) Baso % (Auto) Lymph # (Auto) [place] # (Auto) Eos # (Auto) Baso # (Auto) Abs Immat Gran (auto) Absolute Neuts (auto) Absolute Nucleated RBC Nucleated RBC % Sodium Potassium 3.4 Chloride Carbon Dioxide Anion Gap BUN Creatinine Estim Creat Clear Calc Estimated GFR Glucose POC Capillary Glucose 101 98 Calcium Total Bilirubin AST ALT Alkaline Phosphatase Total Protein Albumin 12/06/24 12/07/24 12/07/24 19:38 08:13 08:20 WBC 22.4 H RBC 3.45 L Hgb 9.7 L Hct 30.7 L MCV 89.0 MCH 28.1 MCHC 31.6 L RDW 14.3 Plt Count 589 H MPV 10.2 Immature Gran % (Auto) 0.9 H Neut % (Auto) 87.4 H Lymph % (Auto) 7.2 L [place] % (Auto) 4.2 Eos % (Auto) 0.0 Baso % (Auto) 0.3 Lymph # (Auto) 1.62 [place] # (Auto) 0.9 H Eos # (Auto) 0.0 Baso # (Auto) 0.1 Abs Immat Gran (auto) 0.21 H Absolute Neuts (auto) 19.6 H Absolute Nucleated RBC 0.000 Nucleated RBC % 0.0 Sodium 136 L Potassium 3.9 Chloride 95 L Carbon Dioxide 33 H Anion Gap 8 BUN 36 H Creatinine 1.85 H Estim Creat Clear Calc 19 Estimated GFR 36 L Glucose 92 POC Capillary Glucose 123 H 89 Calcium 8.7 Total Bilirubin 0.6 AST 24 ALT 11 Alkaline Phosphatase 152 H Total Protein 7.0 Albumin 3.3 L
--- NOTE | 2024-12-07 09:48 | PCNFU ---
Nutrition Follow-Up Complete: Alerted GI function as related to perforated gastric ulcer as evidenced by NPO. Meet estimated nutritional needs. - Progressing slowly. Intakes 5-50% on puree diet Goal: Pt current nutrition is Puree diet. Ensure Compact TID for additional 220 kcal and 9 g protein each. Nutrition recommendation: No new nutrition recommendations. Continue current nutrition care plan and orders. Agree with orders. Last recorded weight is 40.1 kg. Bowel Motility: Last BM recorded 12/05/24 Labs Reviewed: Hgb 9.7, Hct 30.7, Alb 3.3, Na 136, BUN 36, Cre 1.85 Meds Noted: Thiamine, folic acid, lovenox, protonix, insulin Skin: No pressure injuries Additional Notes: Awaiting transfer to [place] [facility]. Does not like puree diet. Intakes are low. Continue same care plan and orders. Will monitor weight, labs, skin, diet orders, meds daily in ICU and reassessing every Tuesday and Tuesday.
[2024-12-07 10:52] VITALS: BP 146/91; PULSE 98; RESP 20; TEMP 37.1; O2SAT 100
[2024-12-07 11:50] LABS: Glucose Point of Care 104 mg/dl (65-105)
[2024-12-07 14:00] VITALS: BP 140/90; PULSE 94; RESP 20; TEMP 37; O2SAT 100
--- NOTE | 2024-12-07 14:28 | PM.IMPN ---
Progress Note: A&P Assessment and Plan (1) Metabolic acidosis: Code(s): E87.20 - Acidosis, unspecified Status: Acute Assessment and Plan: resolved (2) DEBI (acute kidney injury): Code(s): N17.9 - Acute kidney failure, unspecified Status: Acute Assessment and Plan: Creatinine improving Nephrology following (3) Perforated gastric ulcer: Qualifiers: Gastric ulcer chronicity: acute Qualified Code(s): K25.1 - Acute gastric ulcer with perforation Code(s): K25.5 - Chronic or unspecified gastric ulcer with perforation Status: Acute Assessment and Plan: Resolved Continue with Protonix and monitor hgb (4) COPD (chronic obstructive pulmonary disease): Code(s): J44.9 - Chronic obstructive pulmonary disease, unspecified Status: Acute Assessment and Plan: Stable on current medications. Will continue current treatment. (5) Sepsis: Code(s): A41.9 - Sepsis, unspecified organism Status: Acute Assessment and Plan: Completed antibiotics (6) Pneumonia: Code(s): J18.9 - Pneumonia, unspecified organism Status: Acute Assessment and Plan: Completed antibiotics pneumonia resolved Repeat CXR showed pulm edema and Pleural effusion now on lasix (7) Acute hypoxic respiratory failure: Code(s): J96.01 - Acute respiratory failure with hypoxia Status: Acute Assessment and Plan: resolved CXR showed pulm edema and pleural effusion continue Lasix 20mg bid and monitor renal function ECHO from june normal function monitor (8) Sepsis associated hypotension: Code(s): A41.9 - Sepsis, unspecified organism; I95.9 - Hypotension, unspecified Status: Acute Assessment and Plan: completed antibiotics (9) EtOH dependence: Code(s): F10.20 - Alcohol dependence, uncomplicated Status: Acute Assessment and Plan: Counselling given Plan Consulted Hospice Diarrhea Resolved Stool culture and c diff negative Likely from pureed diet started on PRN imodium leukocytosis Worsening despite no evidence of infection WBC continues to rise. Surgery re-evaluated the re-demonstration of subcapsular fluid collections within both the liver and spleen for which abscess formation is suspected.. Underwent perc drain on 12/05 Repeat blood culture pending. CXR done several days ago showed pulm edema and patient has responded to lasix and off oxygen Lactic acid normal Repeated blood culture Code status DNR DVT prophylaxis on Sq Lovenox PT/OT following [facility] Subjective Date/time seen: 12/07/24 14:28 Interval history: Discussed with the patient. The patient wants hospice and wants to live his life how he wants. The patient does not want to live like this; he wants to eat proper food and live his life happily. Agreed to his wishes and consulted hospice. Review of Systems Review of Systems: Pt with a dry throat not talking loudly ROS unobtainable: Yes unobtainable due to endotracheal tube, unobtainable due to medical condition and unobtainable due to mental status Exam Narrative: General: More alert toady Lungs/Chest: Trachea central Coarse BS B/L, No crackles or wheezing. Cardiac: RRR. Normal S1 S2. No murmurs Abdomen: Decreased but present bowel sounds. Extremities: No clubbing, cyanosis or edema. Warm : Shen in place Neurologic: Patient is able to move all 4 extremities spontaneously. Objective Data Vital Signs Vital Signs: Vital Signs - 24 hr 12/06/24 21:49 12/07/24 06:00 12/07/24 09:00 Temperature 98.5 F 98.3 F Pulse Rate 78 80 Respiratory Rate 20 20 Blood Pressure 129/80 137/82 Pulse Oximetry 97 92 100 Oxygen Delivery Nasal Cannula Oxygen Flow Rate 1 12/07/24 10:52 Temperature 98.7 F Pulse Rate 98 Respiratory Rate 20 Blood Pressure 146/91 H Pulse Oximetry 100 Oxygen Delivery Oxygen Flow Rate Intake/Output Intake/Output: Intake & Output 12/04/24 12/05/24 12/06/24 12/07/24 23:59 23:59 23:59 23:59 Intake Total 0258 444 8075 440 Output Total 1800 100 150 Balance -127 748 9635 290 Meds/Results Medications: Active Medications Generic Name Dose Route Start Last Admin Trade Name Freq PRN Reason Stop Dose Admin Acetaminophen 650 mg 11/14/24 15:21 12/05/24 16:06 Acetaminophen Elixir 325 Mg/10.15 Ml Udc FEED TUBE 650 mg Q4H PRN Administration Headache, Fever, Mild Pain Albuterol 2.5 mg 11/09/24 15:38 12/02/24 07:15 Albuterol Sulfate Neb 2.5 Mg/3 Ml Inh INHALATION 2.5 mg Q12HR PRN Administration Shortness Of Breath Amlodipine Besylate 10 mg 12/02/24 09:00 12/07/24 09:01 Amlodipine Besylate 10 Mg Tablet PO 10 mg DAILY SOURAV Administration Dextrose 12.5 gm 11/06/24 07:40 11/21/24 16:58 Dextrose 50% 25 Gm/50 Ml Syringe IV PUSH 12.5 gm PRN PRN Administration Hypoglycemia Protocol Enoxaparin Sodium 30 mg 11/29/24 09:00 12/07/24 09:01 Enoxaparin 30 Mg/0.3 Ml Syringe SUB-Q 30 mg DAILY SOURAV Administration Furosemide 20 mg 11/28/24 17:00 12/07/24 09:02 Furosemide Inj 40 Mg/4 Ml Vial IV PUSH 20 mg BID SOURAV Administration Glucagon 1 mg 11/06/24 07:40 Glucagon For Inj 1 Mg Vial IM PRN PRN Hypoglycemia Protocol Glucose 15 gm 11/06/24 07:40 Glucose Oral Gel 15 Gm Of Glucse In 37.5 Gm Tube PO PRN PRN Hypoglycemia Protocol Hydralazine HCl 10 mg 11/10/24 09:16 11/30/24 06:00 Hydralazine Hcl 20 Mg/Ml Vial IV PUSH 10 mg Q4HR PRN Administration Blood Pressure - High Hydrochlorothiazide 25 mg 12/03/24 09:00 12/07/24 09:01 Hydrochlorothiazide 25 Mg Tablet PO 25 mg QAM SOURAV Administration Hydromorphone HCl 1 mg 12/06/24 01:25 Hydromorphone Hcl Inj (*Crx) 1 Mg/Ml Syr IV PUSH Q3H PRN Breakthrough Pain Dextrose 1,000 mls @ 100 mls/hr 11/06/24 07:40 Dextrose 5% 1,000 Ml IVPB PRN PRN Hypoglycemia Protocol Meropenem 500 mg in 100 mls @ 200 mls/hr 12/04/24 18:00 12/07/24 05:46 IVPB 200 mls/hr Q12H SOURAV Administration Insulin Aspart 2 - 5 units 11/18/24 08:00 12/07/24 12:10 Insulin Aspart (*Bkc) 100 Units/Ml SUB-Q Not Given TIDWM SOURAV Protocol Loperamide HCl 2 mg 12/01/24 10:59 12/01/24 15:17 Loperamide Hcl 2 Mg Capsule PO 2 mg PRN PRN Administration Diarrhea Mirtazapine 15 mg 11/30/24 21:00 12/06/24 21:23 Mirtazapine 15 Mg Tablet PO 15 mg HS SOURAV Administration Miscellaneous Information 0 each 12/05/24 00:01 Renew Naloxone And Ondansetron Orders If Still Needed Or Will Auto D/C XX 01/04/25 00:00 CLARIFY SOURAV Miscellaneous Information 0 each 12/05/24 00:01 Iv Folic Acid, Pantoprazole & Thiamine Will All Auto Discontinue 12/06. XX 01/04/25 00:00 CLARIFY SOURAV Miscellaneous Information 0 each 12/05/24 00:01 Acetaminophen Supp Order Will Auto Stop 12/06. Please Renew Order If This Is To Continue. XX 01/04/25 00:00 CLARIFY SOURAV Phenyleph/Shark Oil/[place] Butter 1 supp 11/19/24 18:18 11/19/24 18:33 Phenylephrine Hcl/[place] Butter Supp.Rect (*Bkc) RECTAL 1 supp Q12HR PRN Administration Hemorrhoids Potassium Chloride 20 meq 12/06/24 09:00 12/07/24 09:01 Potassium Chloride 20 Meq Packet (For Liquid) PO 20 meq DAILY SOURAV Administration Psyllium Hydrophilic Mucilloid 1 packet 11/29/24 09:00 12/07/24 09:02 Psyllium Powder Packet PO Not Given QAM SOURAV Tramadol HCl 50 mg 12/06/24 01:23 12/06/24 09:08 Tramadol Hcl (*Crx) 50 Mg Tablet PO 50 mg Q6H PRN Administration Pain Rated 4-6 Radiology Results: ITS Impressions Head CT 11/05/24 20:50 IMPRESSION: 1. Moderate nonspecific cerebral white matter disease, which likely represents chronic small vessel ischemic disease. 2. 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 Upper GI Series 11/08/24 12:17 IMPRESSION: 1. Slow gastric emptying likely related to postoperative ileus. No extraluminal leakage of contrast. Abdomen X-Ray 11/14/24 11:13 IMPRESSION: Nonspecific, nonobstructive bowel gas pattern. Supportive devices unchanged in position. Bilateral pleural effusions. If clinical suspicion persists, CT examination of the abdomen and pelvis (with intravenous contrast) is suggested for further evaluation. Renal Ultrasound 11/19/24 16:17 IMPRESSION: No hydronephrosis or renal calculi. Findings suggesting medical renal disease. Free fluid within the pelvis. Abdomen/Pelvis CT 11/20/24 14:44 IMPRESSION: Large bilateral pleural effusions, with bilateral lower lobe atelectasis. Infection in the lower lobes is not excluded. Single loop of dilated jejunum, likely representing localized ileus. Early/partial obstruction could appear similarly. Colonic wall thickening, as can be seen with colitis. Moderate ascites. Diffuse edema of the subcutaneous fat and mesenteric fat. Venous Doppler Study 11/22/24 10:28 IMPRESSION: 1. No deep venous thrombosis in either lower limb. Renal Scan Nuclear Medicine 11/23/24 14:21 IMPRESSION: 1. Symmetric kidney function. 2. Delayed activity clearance from both kidneys with continually rising activity curves extending over the 30 minutes of observation and without associated hydronephrosis consistent with nonspecific, nonobstructive nephropathy. Modified Barium Swallow 11/26/24 10:39 IMPRESSION: 1. Trace laryngeal penetration. 2. Please refer to the speech therapy report for recommendations. Chest/Abdomen/Pelvis CT 12/02/24 14:47 IMPRESSION: Redemonstration of subcapsular fluid collections within both the liver and spleen (as detailed above) for which abscess formation is suspected. Both collections are amenable to percutaneous drainage. Bilateral large pleural effusions, with adjacent consolidation, decreased from prior. Chest X-Ray 12/04/24 15:02 IMPRESSION: 1. Decreasing small bilateral pleural effusions with associated bibasilar atelectasis and/or pneumonia. Catheter Placement CT 12/05/24 15:17 IMPRESSION: 1. Successful CT-guided subcapsular liver abscess drainage. 2. 2 mL opaque, moore fluid was sent for aerobic and anaerobic cultures. 3. Moderate-sized pleural effusions. 4. Moderate volume of ascites. Consider peritoneal drain placement. Labs Labs: Laboratory Results - last 24 hr 12/06/24 12/06/24 12/07/24 16:21 19:38 08:13 WBC RBC Hgb Hct MCV MCH MCHC RDW Plt Count MPV Immature Gran % (Auto) Neut % (Auto) Lymph % (Auto) [place] % (Auto) Eos % (Auto) Baso % (Auto) Lymph # (Auto) [place] # (Auto) Eos # (Auto) Baso # (Auto) Abs Immat Gran (auto) Absolute Neuts (auto) Absolute Nucleated RBC Nucleated RBC % Sodium Potassium Chloride Carbon Dioxide Anion Gap BUN Creatinine Estim Creat Clear Calc Estimated GFR Glucose POC Capillary Glucose 98 123 H 89 Calcium Total Bilirubin AST ALT Alkaline Phosphatase Total Protein Albumin 12/07/24 12/07/24 08:20 11:41 WBC 22.4 H RBC 3.45 L Hgb 9.7 L Hct 30.7 L MCV 89.0 MCH 28.1 MCHC 31.6 L RDW 14.3 Plt Count 589 H MPV 10.2 Immature Gran % (Auto) 0.9 H Neut % (Auto) 87.4 H Lymph % (Auto) 7.2 L [place] % (Auto) 4.2 Eos % (Auto) 0.0 Baso % (Auto) 0.3 Lymph # (Auto) 1.62 [place] # (Auto) 0.9 H Eos # (Auto) 0.0 Baso # (Auto) 0.1 Abs Immat Gran (auto) 0.21 H Absolute Neuts (auto) 19.6 H Absolute Nucleated RBC 0.000 Nucleated RBC % 0.0 Sodium 136 L Potassium 3.9 Chloride 95 L Carbon Dioxide 33 H Anion Gap 8 BUN 36 H Creatinine 1.85 H Estim Creat Clear Calc 19 Estimated GFR 36 L Glucose 92 POC Capillary Glucose 104 Calcium 8.7 Total Bilirubin 0.6 AST 24 ALT 11 Alkaline Phosphatase 152 H Total Protein 7.0 Albumin 3.3 L Quality VTE Prophylaxis VTE prophylaxis: mechanical ordered and pharmacologic ordered Hospitalist MIPS Advance Care Plan I have confirmed that the patient's Advanced Care Plan is present, code status is documented, or surrogate decision maker is listed in patient medical record.: Yes Medication Reconciliation I have utilized all available resources to obtain, update and review the patients current medications (includes all prescriptions, OTC, herbals, cannabis, and nutritional supplements).: Yes
[2024-12-07 16:59] LABS: Glucose Point of Care 119 mg/dl (65-105)
[2024-12-07] MEDS: ACETAMINOPHEN ELIXIR 325 MG/10.15 ML UDC 650 MG FEED TUBE (18:02)
[2024-12-07 20:00] VITALS: PULSE 76; RESP 12; O2SAT 91
[2024-12-07 20:34] VITALS: BP 118/75; PULSE 76; RESP 12; TEMP 36.8; O2SAT 91
[2024-12-07] MEDS: MIRTAZAPINE 15 MG TABLET PO (20:39)
[2024-12-07 21:52] LABS: Glucose Point of Care 109 mg/dl (65-105)
[2024-12-08 05:47] VITALS: BP 127/72; PULSE 73; RESP 16; TEMP 36.7; O2SAT 99
[2024-12-08] MEDS: MEROPENEM 500 MG/NS 100 ML 500 MG/100 ML BAG 200 MG IVPB ×2 (06:06→18:37)
[2024-12-08 07:42] LABS: Hematocrit 28.2 % (42.0-52.0); Mean Corpuscular HGB Conc 31.9 g/dl (32-36); Mean Corpuscular Hemoglobin 28.1 pg (26-34); Mean Corpuscular Volume 88.1 fl (80-100); Mean Platelet Volume 10.2 fl (7.4-10.4); Platelet Count Result 565 k/mm3 (150-375); Red Cell Distribution Width 14.2 % (11.5-14.5); White Blood Count 17.2 K/mm3 (4.5-10.0)
[2024-12-08 07:48] LABS: Glucose Point of Care 160 mg/dl (65-105)
[2024-12-08 07:55] LABS: Alanine Aminotransferase 12 U/L (6-50); Albumin Level 3.1 g/dL (3.5-5.1); Alkaline Phosphatase 140 U/L (38-126); Anion Gap 6 mmol/L (4-12); Aspartate Amino Transferase 29 U/L (17-59); Bilirubin,Total 0.5 mg/dL (0.2-1.3); Blood Urea Nitrogen 38 mg/dL (9-20); Calcium 8.8 mg/dL (8.4-10.2); Carbon Dioxide 36 mmol/L (22-30); Chloride 94 mmol/L (98-107); Estimated CRCL calculation 19 ml/min; Estimated Glomerular Filt Rate 35; Glucose 133 mg/dL (65-110); Potassium 3.3 mmol/L (3.4-5.0); Sodium 136 mmol/L (137-145)
[2024-12-08 08:00] VITALS: O2SAT 95
[2024-12-08] MEDS: FUROSEMIDE INJ 40 MG/4 ML VIAL 20 MG IV PUSH ×2 (09:01→18:37)
[2024-12-08] MEDS: POTASSIUM CHLORIDE 20 MEQ PACKET (FOR LIQUID) PO (09:01)
[2024-12-08] MEDS: amLODIPine BESYLATE 10 MG TABLET PO (09:01)
[2024-12-08] MEDS: ENOXAPARIN 30 MG/0.3 ML SYRINGE SUB-Q (09:01)
[2024-12-08] MEDS: PSYLLIUM POWDER PACKET 1 PACKET PO (09:01)
[2024-12-08] MEDS: hydroCHLOROthiazide 25 MG TABLET PO (09:01)
[2024-12-08 09:28] VITALS: O2SAT 96
[2024-12-08 10:10] LABS: Magnesium 1.7 mg/dL (1.6-2.3)
--- NOTE | 2024-12-08 10:45 | P.PNNP_ITS ---
Progress Note: A&P Assessment and Plan (1) DEBI (acute kidney injury): Code(s): N17.9 - Acute kidney failure, unspecified Status: Acute Assessment and Plan: * relatively stable * initial insult on admission was due to sepsis hypotension, fluid shifts and hypovolemia * resolved with supportive therapy * second episode noted on 11/18...creatinine increased from 0.9 -> 2.2 -> 3.0mg/dl...etc * etiology of second episode is not entirely clear... * suspect ATN from prerenal azotemia secondary to third spacing given recent abdominal surgery compounded by his diminished oral intake * recent CT scan noted (ascites, pleural effusions, anasarca...) * evaluation to date noted: * renal ultrasound without obstruction but with medical renal disease * urine electrolytes prerenal * UA not indicative of infection * urine eosinophils negative * mild proteinuria noted (~ 1300mg proteinuria) * CPK low * renal scan suggestive of ATN * creatinine peaked/plateaued at 4.20mg/dl with ongoing improvement noted. The was 2.17 two days ago then 1.85 yesterday and today is 1.9. It seems to be reaching a plateau. * renal function tolerating gentle diuresis . He is still on IV Lasix. Will change to p.o.. * suspect new baseline creatinine of high 1s or Low 2s. * Check another creatinine tomorrow. (2) Perforated gastric ulcer: Qualifiers: Gastric ulcer chronicity: acute Qualified Code(s): K25.1 - Acute gastric ulcer with perforation Code(s): K25.5 - Chronic or unspecified gastric ulcer with perforation Status: Acute Assessment and Plan: * s/p exploratory laparotomy, extensive lysis of adhesions, intra-abdominal washout, repair of perforated gastric ulcer with omental patch * on antibiotics * local wound care * Surgery following (3) Hypertension: Code(s): I10 - Essential (primary) hypertension Status: Chronic Assessment and Plan: * blood pressure is doing we * On amlodipine and hydrochlorothiazide. * likely an undiagnosed condition * As an outpatient he may be switch from amlodipine to an NATALIE-inhibitor depending on his proteinuria. * It is unclear whether he is going to need long-term loop diuretics. Last checks x-ray was better. Will get another 1 today. (4) COPD (chronic obstructive pulmonary disease): Code(s): J44.9 - Chronic obstructive pulmonary disease, unspecified Status: Acute Assessment and Plan: * not in exacerbation * bronchodilators as needed (5) Severe protein-calorie malnutrition: Code(s): E43 - Unspecified severe protein-calorie malnutrition Status: Acute Assessment and Plan: * on dronabinol 5mg bid * advance diet as tolerated (6) EtOH dependence: Code(s): F10.20 - Alcohol dependence, uncomplicated Status: Acute Assessment and Plan: * known history * no evidence of withdrawal since admission * continue thiamine and folic acid Subjective Date/time seen: 12/08/24 10:45 Interval history: pain patient feels good today. Eating well. Exam Narrative: General: elderly male in NAD Heart: normal S1 and S2; no rub or gallop Lungs: clear anteriorly; decreased at bases Abdomen: soft and nontender; positive bowel sounds Extremities: no cyanosis or clubbing; no edema Skin: warm and dry Without rash Objective Data Vital Signs Vital Signs: Vital Signs - 24 hr 12/07/24 10:52 12/07/24 14:00 12/07/24 20:00 Temperature 98.7 F 98.6 F Pulse Rate 98 94 76 Respiratory Rate 20 20 12 Blood Pressure 146/91 H 140/90 Pulse Oximetry 100 100 91 Oxygen Delivery Nasal Cannula Oxygen Flow Rate 1 Fraction of Inspired Oxygen 21 12/07/24 20:34 12/08/24 05:47 12/08/24 09:28 Temperature 98.2 F 98.1 F Pulse Rate 76 73 Respiratory Rate 12 16 Blood Pressure 118/75 127/72 Pulse Oximetry 91 99 96 Oxygen Delivery Nasal Cannula Oxygen Flow Rate 1 Fraction of Inspired Oxygen 24 Intake/Output Intake/Output: Intake & Output 12/05/24 12/06/24 12/07/24 12/08/24 23:59 23:59 23:59 23:59 Intake Total 690 1820 880 295 Output Total 100 550 450 Balance 690 1720 330 -155 Meds/Results Medications: Active Medications Generic Name Dose Route Start Last Admin Trade Name Freq PRN Reason Stop Dose Admin Acetaminophen 650 mg 11/14/24 15:21 12/07/24 18:02 Acetaminophen Elixir 325 Mg/10.15 Ml Udc FEED TUBE 650 mg Q4H PRN Administration Headache, Fever, Mild Pain Albuterol 2.5 mg 11/09/24 15:38 12/02/24 07:15 Albuterol Sulfate Neb 2.5 Mg/3 Ml Inh INHALATION 2.5 mg Q12HR PRN Administration Shortness Of Breath Amlodipine Besylate 10 mg 12/02/24 09:00 12/08/24 09:01 Amlodipine Besylate 10 Mg Tablet PO 10 mg DAILY SOURAV Administration Dextrose 12.5 gm 11/06/24 07:40 11/21/24 16:58 Dextrose 50% 25 Gm/50 Ml Syringe IV PUSH 12.5 gm PRN PRN Administration Hypoglycemia Protocol Enoxaparin Sodium 30 mg 11/29/24 09:00 12/08/24 09:01 Enoxaparin 30 Mg/0.3 Ml Syringe SUB-Q 30 mg DAILY SOURAV Administration Furosemide 20 mg 11/28/24 17:00 12/08/24 09:01 Furosemide Inj 40 Mg/4 Ml Vial IV PUSH 20 mg BID SOURAV Administration Glucagon 1 mg 11/06/24 07:40 Glucagon For Inj 1 Mg Vial IM PRN PRN Hypoglycemia Protocol Glucose 15 gm 11/06/24 07:40 Glucose Oral Gel 15 Gm Of Glucse In 37.5 Gm Tube PO PRN PRN Hypoglycemia Protocol Hydralazine HCl 10 mg 11/10/24 09:16 11/30/24 06:00 Hydralazine Hcl 20 Mg/Ml Vial IV PUSH 10 mg Q4HR PRN Administration Blood Pressure - High Hydrochlorothiazide 25 mg 12/03/24 09:00 12/08/24 09:01 Hydrochlorothiazide 25 Mg Tablet PO 25 mg QAM SOURAV Administration Hydromorphone HCl 1 mg 12/06/24 01:25 Hydromorphone Hcl Inj (*Crx) 1 Mg/Ml Syr IV PUSH Q3H PRN Breakthrough Pain Dextrose 1,000 mls @ 100 mls/hr 11/06/24 07:40 Dextrose 5% 1,000 Ml IVPB PRN PRN Hypoglycemia Protocol Meropenem 500 mg in 100 mls @ 200 mls/hr 12/04/24 18:00 12/08/24 06:36 IVPB Infused Q12H SOURAV Infusion Insulin Aspart 2 - 5 units 11/18/24 08:00 12/07/24 17:03 Insulin Aspart (*Bkc) 100 Units/Ml SUB-Q Not Given TIDWM SOURAV Protocol Loperamide HCl 2 mg 12/01/24 10:59 12/01/24 15:17 Loperamide Hcl 2 Mg Capsule PO 2 mg PRN PRN Administration Diarrhea Mirtazapine 15 mg 11/30/24 21:00 12/07/24 20:39 Mirtazapine 15 Mg Tablet PO 15 mg HS SOURAV Administration Miscellaneous Information 0 each 12/05/24 00:01 Renew Naloxone And Ondansetron Orders If Still Needed Or Will Auto D/C XX 01/04/25 00:00 CLARIFY SOURAV Miscellaneous Information 0 each 12/05/24 00:01 Iv Folic Acid, Pantoprazole & Thiamine Will All Auto Discontinue 12/06. XX 01/04/25 00:00 CLARIFY SOURAV Miscellaneous Information 0 each 12/05/24 00:01 Acetaminophen Supp Order Will Auto Stop 12/06. Please Renew Order If This Is To Continue. XX 01/04/25 00:00 CLARIFY SOURAV Phenyleph/Shark Oil/Iola Butter 1 supp 11/19/24 18:18 11/19/24 18:33 Phenylephrine Hcl/Iola Butter Supp.Rect (*Bkc) RECTAL 1 supp Q12HR PRN Administration Hemorrhoids Potassium Chloride 20 meq 12/06/24 09:00 12/08/24 09:01 Potassium Chloride 20 Meq Packet (For Liquid) PO 20 meq DAILY SOURAV Administration Psyllium Hydrophilic Mucilloid 1 packet 11/29/24 09:00 12/08/24 09:01 Psyllium Powder Packet PO 1 packet QAM SOURAV Administration Tramadol HCl 50 mg 12/06/24 01:23 12/06/24 09:08 Tramadol Hcl (*Crx) 50 Mg Tablet PO 50 mg Q6H PRN Administration Pain Rated 4-6 Radiology Results: ITS Impressions Head CT 11/05/24 20:50 IMPRESSION: 1. Moderate nonspecific cerebral white matter disease, which likely represents chronic small vessel ischemic disease. 2. 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 Upper GI Series 11/08/24 12:17 IMPRESSION: 1. Slow gastric emptying likely related to postoperative ileus. No extraluminal leakage of contrast. Abdomen X-Ray 11/14/24 11:13 IMPRESSION: Nonspecific, nonobstructive bowel gas pattern. Supportive devices unchanged in position. Bilateral pleural effusions. If clinical suspicion persists, CT examination of the abdomen and pelvis (with intravenous contrast) is suggested for further evaluation. Renal Ultrasound 11/19/24 16:17 IMPRESSION: No hydronephrosis or renal calculi. Findings suggesting medical renal disease. Free fluid within the pelvis. Abdomen/Pelvis CT 11/20/24 14:44 IMPRESSION: Large bilateral pleural effusions, with bilateral lower lobe atelectasis. Infection in the lower lobes is not excluded. Single loop of dilated jejunum, likely representing localized ileus. Early/partial obstruction could appear similarly. Colonic wall thickening, as can be seen with colitis. Moderate ascites. Diffuse edema of the subcutaneous fat and mesenteric fat. Venous Doppler Study 11/22/24 10:28 IMPRESSION: 1. No deep venous thrombosis in either lower limb. Renal Scan Nuclear Medicine 11/23/24 14:21 IMPRESSION: 1. Symmetric kidney function. 2. Delayed activity clearance from both kidneys with continually rising activity curves extending over the 30 minutes of observation and without associated hydronephrosis consistent with nonspecific, nonobstructive nephropathy. Modified Barium Swallow 11/26/24 10:39 IMPRESSION: 1. Trace laryngeal penetration. 2. Please refer to the speech therapy report for recommendations. Chest/Abdomen/Pelvis CT 12/02/24 14:47 IMPRESSION: Redemonstration of subcapsular fluid collections within both the liver and spleen (as detailed above) for which abscess formation is suspected. Both collections are amenable to percutaneous drainage. Bilateral large pleural effusions, with adjacent consolidation, decreased from prior. Chest X-Ray 12/04/24 15:02 IMPRESSION: 1. Decreasing small bilateral pleural effusions with associated bibasilar atelectasis and/or pneumonia. Catheter Placement CT 12/05/24 15:17 IMPRESSION: 1. Successful CT-guided subcapsular liver abscess drainage. 2. 2 mL opaque, moore fluid was sent for aerobic and anaerobic cultures. 3. Moderate-sized pleural effusions. 4. Moderate volume of ascites. Consider peritoneal drain placement. Labs Labs: Laboratory Results - last 24 hr 12/07/24 12/07/24 12/07/24 11:41 16:50 20:32 WBC RBC Hgb Hct MCV MCH MCHC RDW Plt Count MPV Sodium Potassium Chloride Carbon Dioxide Anion Gap BUN Creatinine Estim Creat Clear Calc Estimated GFR Glucose POC Capillary Glucose 104 119 H 109 H Calcium Magnesium Total Bilirubin AST ALT Alkaline Phosphatase Total Protein Albumin 12/08/24 12/08/24 07:04 07:44 WBC 17.2 H RBC 3.20 L Hgb 9.0 L Hct 28.2 L MCV 88.1 MCH 28.1 MCHC 31.9 L RDW 14.2 Plt Count 565 H MPV 10.2 Sodium 136 L Potassium 3.3 L Chloride 94 L Carbon Dioxide 36 H Anion Gap 6 BUN 38 H Creatinine 1.90 H Estim Creat Clear Calc 19 Estimated GFR 35 L Glucose 133 H POC Capillary Glucose 160 H Calcium 8.8 Magnesium 1.7 Total Bilirubin 0.5 AST 29 ALT 12 Alkaline Phosphatase 140 H Total Protein 7.0 Albumin 3.1 L
[2024-12-08 11:47] LABS: Glucose Point of Care 114 mg/dl (65-105)
[2024-12-08 14:00] VITALS: BP 130/77; PULSE 77; RESP 20; TEMP 36.6; O2SAT 97
--- NOTE | 2024-12-08 14:25 | WPDPN ---
Progress Note: A&P Assessment and Plan (1) Liver abscess: Code(s): K75.0 - Abscess of liver Status: Acute Assessment and Plan: Perc drain in place. Output is low. Will get CT abd/pelvis with IV contrast in next 1-2 days. If abscess resolved, then remove drain. (2) Perforated gastric ulcer: Qualifiers: Gastric ulcer chronicity: acute Qualified Code(s): K25.1 - Acute gastric ulcer with perforation Code(s): K25.5 - Chronic or unspecified gastric ulcer with perforation Status: Acute Assessment and Plan: Pt's ulcer repair with primary closure and patch. Tolerating pureed diet and thickened liquids. Will advance to soft diet with ensure supplements. He is swallowing his pills with water without issues. Spoke to health care coordinator, still trying to figure out if pt will be going to [facility] or hospice facility or home with hospice. Subjective Date/time seen: 12/08/24 14:25 Interval history: Pt without acute clinical changes. Still on pureed diet and thickened liquids. Minimal output from abdominal abscess drains. He would like some solid food. Exam GI: Other: Abd is soft and nontender, nondistended. Upper midline incision healed. No redness or drainage. RUQ pigtail drain in liver abscess in place, dressing dry, output is low and purulent. Objective Data Vital Signs Vital Signs: Vital Signs - 24 hr 12/07/24 20:00 12/07/24 20:34 12/08/24 05:47 Temperature 36.8 C 36.7 C Pulse Rate 76 76 73 Respiratory Rate 12 12 16 Blood Pressure 118/75 127/72 Pulse Oximetry 91 91 99 Oxygen Delivery Nasal Cannula Oxygen Flow Rate 1 Fraction of Inspired Oxygen 12/08/24 09:28 Temperature Pulse Rate Respiratory Rate Blood Pressure Pulse Oximetry 96 Oxygen Delivery Nasal Cannula Oxygen Flow Rate 1 Fraction of Inspired Oxygen 24 Intake/Output Intake/Output: Intake & Output 12/05/24 12/06/24 12/07/24 12/08/24 23:59 23:59 23:59 23:59 Intake Total 690 1820 880 295 Output Total 100 550 450 Balance 690 1720 330 -155 Meds/Results Medications: Active Medications Generic Name Dose Route Start Last Admin Trade Name Freq PRN Reason Stop Dose Admin Acetaminophen 650 mg 11/14/24 15:21 12/07/24 18:02 Acetaminophen Elixir 325 Mg/10.15 Ml Udc FEED TUBE 650 mg Q4H PRN Administration Headache, Fever, Mild Pain Albuterol 2.5 mg 11/09/24 15:38 12/02/24 07:15 Albuterol Sulfate Neb 2.5 Mg/3 Ml Inh INHALATION 2.5 mg Q12HR PRN Administration Shortness Of Breath Amlodipine Besylate 10 mg 12/02/24 09:00 12/08/24 09:01 Amlodipine Besylate 10 Mg Tablet PO 10 mg DAILY SOURAV Administration Dextrose 12.5 gm 11/06/24 07:40 11/21/24 16:58 Dextrose 50% 25 Gm/50 Ml Syringe IV PUSH 12.5 gm PRN PRN Administration Hypoglycemia Protocol Enoxaparin Sodium 30 mg 11/29/24 09:00 12/08/24 09:01 Enoxaparin 30 Mg/0.3 Ml Syringe SUB-Q 30 mg DAILY SOURAV Administration Furosemide 20 mg 11/28/24 17:00 12/08/24 09:01 Furosemide Inj 40 Mg/4 Ml Vial IV PUSH 20 mg BID SOURAV Administration Glucagon 1 mg 11/06/24 07:40 Glucagon For Inj 1 Mg Vial IM PRN PRN Hypoglycemia Protocol Glucose 15 gm 11/06/24 07:40 Glucose Oral Gel 15 Gm Of Glucse In 37.5 Gm Tube PO PRN PRN Hypoglycemia Protocol Hydralazine HCl 10 mg 11/10/24 09:16 11/30/24 06:00 Hydralazine Hcl 20 Mg/Ml Vial IV PUSH 10 mg Q4HR PRN Administration Blood Pressure - High Hydrochlorothiazide 25 mg 12/03/24 09:00 12/08/24 09:01 Hydrochlorothiazide 25 Mg Tablet PO 25 mg QAM SOURAV Administration Hydromorphone HCl 1 mg 12/06/24 01:25 Hydromorphone Hcl Inj (*Crx) 1 Mg/Ml Syr IV PUSH Q3H PRN Breakthrough Pain Dextrose 1,000 mls @ 100 mls/hr 11/06/24 07:40 Dextrose 5% 1,000 Ml IVPB PRN PRN Hypoglycemia Protocol Meropenem 500 mg in 100 mls @ 200 mls/hr 12/04/24 18:00 12/08/24 06:36 IVPB Infused Q12H SOURAV Infusion Insulin Aspart 2 - 5 units 11/18/24 08:00 12/08/24 08:22 Insulin Aspart (*Bkc) 100 Units/Ml SUB-Q Not Given TIDWM [facility] Protocol Loperamide HCl 2 mg 12/01/24 10:59 12/01/24 15:17 Loperamide Hcl 2 Mg Capsule PO 2 mg PRN PRN Administration Diarrhea Mirtazapine 15 mg 11/30/24 21:00 12/07/24 20:39 Mirtazapine 15 Mg Tablet PO 15 mg HS SOURAV Administration Miscellaneous Information 0 each 12/05/24 00:01 Renew Naloxone And Ondansetron Orders If Still Needed Or Will Auto D/C XX 01/04/25 00:00 CLARIFY SOURAV Miscellaneous Information 0 each 12/05/24 00:01 Iv Folic Acid, Pantoprazole & Thiamine Will All Auto Discontinue 12/06. XX 01/04/25 00:00 CLARIFY SOURAV Miscellaneous Information 0 each 12/05/24 00:01 Acetaminophen Supp Order Will Auto Stop 12/06. Please Renew Order If This Is To Continue. XX 01/04/25 00:00 CLARIFY SOURAV Phenyleph/Shark Oil/[place]roll Butter 1 supp 11/19/24 18:18 11/19/24 18:33 Phenylephrine Hcl/Carroll Butter Supp.Rect (*Bkc) RECTAL 1 supp Q12HR PRN Administration Hemorrhoids Potassium Chloride 20 meq 12/06/24 09:00 12/08/24 09:01 Potassium Chloride 20 Meq Packet (For Liquid) PO 20 meq DAILY SOURAV Administration Psyllium Hydrophilic Mucilloid 1 packet 11/29/24 09:00 12/08/24 09:01 Psyllium Powder Packet PO 1 packet QAM SOURAV Administration Tramadol HCl 50 mg 12/06/24 01:23 12/06/24 09:08 Tramadol Hcl (*Crx) 50 Mg Tablet PO 50 mg Q6H PRN Administration Pain Rated 4-6 Radiology Results: ITS Impressions Head CT 11/05/24 20:50 IMPRESSION: 1. Moderate nonspecific cerebral white matter disease, which likely represents chronic small vessel ischemic disease. 2. 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 Upper GI Series 11/08/24 12:17 IMPRESSION: 1. Slow gastric emptying likely related to postoperative ileus. No extraluminal leakage of contrast. Abdomen X-Ray 11/14/24 11:13 IMPRESSION: Nonspecific, nonobstructive bowel gas pattern. Supportive devices unchanged in position. Bilateral pleural effusions. If clinical suspicion persists, CT examination of the abdomen and pelvis (with intravenous contrast) is suggested for further evaluation. Renal Ultrasound 11/19/24 16:17 IMPRESSION: No hydronephrosis or renal calculi. Findings suggesting medical renal disease. Free fluid within the pelvis. Abdomen/Pelvis CT 11/20/24 14:44 IMPRESSION: Large bilateral pleural effusions, with bilateral lower lobe atelectasis. Infection in the lower lobes is not excluded. Single loop of dilated jejunum, likely representing localized ileus. Early/partial obstruction could appear similarly. Colonic wall thickening, as can be seen with colitis. Moderate ascites. Diffuse edema of the subcutaneous fat and mesenteric fat. Venous Doppler Study 11/22/24 10:28 IMPRESSION: 1. No deep venous thrombosis in either lower limb. Renal Scan Nuclear Medicine 11/23/24 14:21 IMPRESSION: 1. Symmetric kidney function. 2. Delayed activity clearance from both kidneys with continually rising activity curves extending over the 30 minutes of observation and without associated hydronephrosis consistent with nonspecific, nonobstructive nephropathy. Modified Barium Swallow 11/26/24 10:39 IMPRESSION: 1. Trace laryngeal penetration. 2. Please refer to the speech therapy report for recommendations. Chest/Abdomen/Pelvis CT 12/02/24 14:47 IMPRESSION: Redemonstration of subcapsular fluid collections within both the liver and spleen (as detailed above) for which abscess formation is suspected. Both collections are amenable to percutaneous drainage. Bilateral large pleural effusions, with adjacent consolidation, decreased from prior. Catheter Placement CT 12/05/24 15:17 IMPRESSION: 1. Successful CT-guided subcapsular liver abscess drainage. 2. 2 mL opaque, moore fluid was sent for aerobic and anaerobic cultures. 3. Moderate-sized pleural effusions. 4. Moderate volume of ascites. Consider peritoneal drain placement. Chest X-Ray 12/08/24 12:28 IMPRESSION: 1. Stable airspace opacities at the lung bases, consistent with atelectasis versus pneumonia. 2. Stable small pleural effusions. 3. Emphysema. Labs Labs: Laboratory Results - last 24 hr 12/07/24 12/07/24 12/08/24 16:50 20:32 07:04 WBC 17.2 H RBC 3.20 L Hgb 9.0 L Hct 28.2 L MCV 88.1 MCH 28.1 MCHC 31.9 L RDW 14.2 Plt Count 565 H MPV 10.2 Sodium 136 L Potassium 3.3 L Chloride 94 L Carbon Dioxide 36 H Anion Gap 6 BUN 38 H Creatinine 1.90 H Estim Creat Clear Calc 19 Estimated GFR 35 L Glucose 133 H POC Capillary Glucose 119 H 109 H Calcium 8.8 Magnesium 1.7 Total Bilirubin 0.5 AST 29 ALT 12 Alkaline Phosphatase 140 H Total Protein 7.0 Albumin 3.1 L 12/08/24 12/08/24 07:44 11:31 WBC RBC Hgb Hct MCV MCH MCHC RDW Plt Count MPV Sodium Potassium Chloride Carbon Dioxide Anion Gap BUN Creatinine Estim Creat Clear Calc Estimated GFR Glucose POC Capillary Glucose 160 H 114 H Calcium Magnesium Total Bilirubin AST ALT Alkaline Phosphatase Total Protein Albumin
--- NOTE | 2024-12-08 15:47 | PM.IMPN ---
Progress Note: A&P Assessment and Plan (1) Metabolic acidosis: Code(s): E87.20 - Acidosis, unspecified Status: Acute Assessment and Plan: resolved (2) DEBI (acute kidney injury): Code(s): N17.9 - Acute kidney failure, unspecified Status: Acute Assessment and Plan: Creatinine improving Nephrology following (3) Perforated gastric ulcer: Qualifiers: Gastric ulcer chronicity: acute Qualified Code(s): K25.1 - Acute gastric ulcer with perforation Code(s): K25.5 - Chronic or unspecified gastric ulcer with perforation Status: Acute Assessment and Plan: Resolved Continue with Protonix and monitor hgb (4) COPD (chronic obstructive pulmonary disease): Code(s): J44.9 - Chronic obstructive pulmonary disease, unspecified Status: Acute Assessment and Plan: Stable on current medications. Will continue current treatment. (5) Sepsis: Code(s): A41.9 - Sepsis, unspecified organism Status: Acute Assessment and Plan: Completed antibiotics (6) Pneumonia: Code(s): J18.9 - Pneumonia, unspecified organism Status: Acute Assessment and Plan: Completed antibiotics pneumonia resolved Repeat CXR showed pulm edema and Pleural effusion now on lasix (7) Acute hypoxic respiratory failure: Code(s): J96.01 - Acute respiratory failure with hypoxia Status: Acute Assessment and Plan: resolved CXR showed pulm edema and pleural effusion continue Lasix 20mg bid and monitor renal function ECHO from june normal function monitor (8) Sepsis associated hypotension: Code(s): A41.9 - Sepsis, unspecified organism; I95.9 - Hypotension, unspecified Status: Acute Assessment and Plan: completed antibiotics (9) EtOH dependence: Code(s): F10.20 - Alcohol dependence, uncomplicated Status: Acute Assessment and Plan: Counselling given Plan Consulted Hospice Perforated Gastric ulcer Patient underwent surgery on 11/05. Patient condition has been declining after the perforated gastric ulcer. Recently he was placed perc drain due to spleen and liver abscess. Diarrhea Resolved Stool culture and c diff negative Likely from pureed diet started on PRN imodium leukocytosis Worsening despite no evidence of infection WBC continues to rise. Surgery re-evaluated the re-demonstration of subcapsular fluid collections within both the liver and spleen for which abscess formation is suspected.. Underwent perc drain on 12/05 Repeat blood culture pending. CXR done several days ago showed pulm edema and patient has responded to lasix and off oxygen Lactic acid normal Repeated blood culture Code status DNR DVT prophylaxis on Sq Lovenox PT/OT following [place]ing placement to [place] [facility] Subjective Date/time seen: 12/08/24 15:47 Interval history: Patient wants to go to hospice. Care coordination working on the process. Patient condition has been declining after the perforated gastric ulcer. Patient underwent surgery on 11/05. Recently he was placed perc drain due to spleen and liver abscess. Patient reports he is sick how things progressing and wants to eat proper food and wants to leave the hospital and live how he wants. He is willing to go to hospice . Review of Systems Review of Systems: Pt with a dry throat not talking loudly ROS unobtainable: Yes unobtainable due to endotracheal tube, unobtainable due to medical condition and unobtainable due to mental status Exam Narrative: General: More alert toady Lungs/Chest: Trachea central Coarse BS B/L, No crackles or wheezing. Cardiac: RRR. Normal S1 S2. No murmurs Abdomen: Decreased but present bowel sounds. Extremities: No clubbing, cyanosis or edema. Warm : Shen in place Neurologic: Patient is able to move all 4 extremities spontaneously. Objective Data Vital Signs Vital Signs: Vital Signs - 24 hr 12/07/24 20:00 12/07/24 20:34 12/08/24 05:47 Temperature 98.2 F 98.1 F Pulse Rate 76 76 73 Respiratory Rate 12 12 16 Blood Pressure 118/75 127/72 Pulse Oximetry 91 91 99 Oxygen Delivery Nasal Cannula Oxygen Flow Rate 1 Fraction of Inspired Oxygen 21 12/08/24 09:28 12/08/24 14:00 Temperature 97.8 F Pulse Rate 77 Respiratory Rate 20 Blood Pressure 130/77 Pulse Oximetry 96 97 Oxygen Delivery Nasal Cannula Oxygen Flow Rate 1 Fraction of Inspired Oxygen 24 Intake/Output Intake/Output: Intake & Output 12/05/24 12/06/24 12/07/24 12/08/24 23:59 23:59 23:59 23:59 Intake Total 690 1820 880 295 Output Total 738 374 0042 Balance 690 1720 330 -755 Meds/Results Medications: Active Medications Generic Name Dose Route Start Last Admin Trade Name Freq PRN Reason Stop Dose Admin Acetaminophen 650 mg 11/14/24 15:21 12/07/24 18:02 Acetaminophen Elixir 325 Mg/10.15 Ml Udc FEED TUBE 650 mg Q4H PRN Administration Headache, Fever, Mild Pain Albuterol 2.5 mg 11/09/24 15:38 12/02/24 07:15 Albuterol Sulfate Neb 2.5 Mg/3 Ml Inh INHALATION 2.5 mg Q12HR PRN Administration Shortness Of Breath Amlodipine Besylate 10 mg 12/02/24 09:00 12/08/24 09:01 Amlodipine Besylate 10 Mg Tablet PO 10 mg DAILY SOURAV Administration Dextrose 12.5 gm 11/06/24 07:40 11/21/24 16:58 Dextrose 50% 25 Gm/50 Ml Syringe IV PUSH 12.5 gm PRN PRN Administration Hypoglycemia Protocol Enoxaparin Sodium 30 mg 11/29/24 09:00 12/08/24 09:01 Enoxaparin 30 Mg/0.3 Ml Syringe SUB-Q 30 mg DAILY SOURAV Administration Furosemide 20 mg 11/28/24 17:00 12/08/24 09:01 Furosemide Inj 40 Mg/4 Ml Vial IV PUSH 20 mg BID SOURAV Administration Glucagon 1 mg 11/06/24 07:40 Glucagon For Inj 1 Mg Vial IM PRN PRN Hypoglycemia Protocol Glucose 15 gm 11/06/24 07:40 Glucose Oral Gel 15 Gm Of Glucse In 37.5 Gm Tube PO PRN PRN Hypoglycemia Protocol Hydralazine HCl 10 mg 11/10/24 09:16 11/30/24 06:00 Hydralazine Hcl 20 Mg/Ml Vial IV PUSH 10 mg Q4HR PRN Administration Blood Pressure - High Hydrochlorothiazide 25 mg 12/03/24 09:00 12/08/24 09:01 Hydrochlorothiazide 25 Mg Tablet PO 25 mg QAM SOURAV Administration Hydromorphone HCl 1 mg 12/06/24 01:25 Hydromorphone Hcl Inj (*Crx) 1 Mg/Ml Syr IV PUSH Q3H PRN Breakthrough Pain Dextrose 1,000 mls @ 100 mls/hr 11/06/24 07:40 Dextrose 5% 1,000 Ml IVPB PRN PRN Hypoglycemia Protocol Meropenem 500 mg in 100 mls @ 200 mls/hr 12/04/24 18:00 12/08/24 06:36 IVPB Infused Q12H SOURAV Infusion Insulin Aspart 2 - 5 units 11/18/24 08:00 12/08/24 08:22 Insulin Aspart (*Bkc) 100 Units/Ml SUB-Q Not Given TIDWM ON LICENSE OF [facility] Protocol Loperamide HCl 2 mg 12/01/24 10:59 12/01/24 15:17 Loperamide Hcl 2 Mg Capsule PO 2 mg PRN PRN Administration Diarrhea Mirtazapine 15 mg 11/30/24 21:00 12/07/24 20:39 Mirtazapine 15 Mg Tablet PO 15 mg HS SOURAV Administration Miscellaneous Information 0 each 12/05/24 00:01 Renew Naloxone And Ondansetron Orders If Still Needed Or Will Auto D/C XX 01/04/25 00:00 CLARIFY SOURAV Miscellaneous Information 0 each 12/05/24 00:01 Iv Folic Acid, Pantoprazole & Thiamine Will All Auto Discontinue 12/06. XX 01/04/25 00:00 CLARIFY SOURAV Miscellaneous Information 0 each 12/05/24 00:01 Acetaminophen Supp Order Will Auto Stop 12/06. Please Renew Order If This Is To Continue. XX 01/04/25 00:00 CLARIFY SOURAV Phenyleph/Shark Oil/[place] Butter 1 supp 11/19/24 18:18 11/19/24 18:33 Phenylephrine Hcl/[place] Butter Supp.Rect (*Bkc) RECTAL 1 supp Q12HR PRN Administration Hemorrhoids Potassium Chloride 20 meq 12/06/24 09:00 12/08/24 09:01 Potassium Chloride 20 Meq Packet (For Liquid) PO 20 meq DAILY SOURAV Administration Psyllium Hydrophilic Mucilloid 1 packet 11/29/24 09:00 12/08/24 09:01 Psyllium Powder Packet PO 1 packet QAM SOURAV Administration Tramadol HCl 50 mg 12/06/24 01:23 12/06/24 09:08 Tramadol Hcl (*Crx) 50 Mg Tablet PO 50 mg Q6H PRN Administration Pain Rated 4-6 Radiology Results: ITS Impressions Head CT 11/05/24 20:50 IMPRESSION: 1. Moderate nonspecific cerebral white matter disease, which likely represents chronic small vessel ischemic disease. 2. 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 Upper GI Series 11/08/24 12:17 IMPRESSION: 1. Slow gastric emptying likely related to postoperative ileus. No extraluminal leakage of contrast. Abdomen X-Ray 11/14/24 11:13 IMPRESSION: Nonspecific, nonobstructive bowel gas pattern. Supportive devices unchanged in position. Bilateral pleural effusions. If clinical suspicion persists, CT examination of the abdomen and pelvis (with intravenous contrast) is suggested for further evaluation. Renal Ultrasound 11/19/24 16:17 IMPRESSION: No hydronephrosis or renal calculi. Findings suggesting medical renal disease. Free fluid within the pelvis. Abdomen/Pelvis CT 11/20/24 14:44 IMPRESSION: Large bilateral pleural effusions, with bilateral lower lobe atelectasis. Infection in the lower lobes is not excluded. Single loop of dilated jejunum, likely representing localized ileus. Early/partial obstruction could appear similarly. Colonic wall thickening, as can be seen with colitis. Moderate ascites. Diffuse edema of the subcutaneous fat and mesenteric fat. Venous Doppler Study 11/22/24 10:28 IMPRESSION: 1. No deep venous thrombosis in either lower limb. Renal Scan Nuclear Medicine 11/23/24 14:21 IMPRESSION: 1. Symmetric kidney function. 2. Delayed activity clearance from both kidneys with continually rising activity curves extending over the 30 minutes of observation and without associated hydronephrosis consistent with nonspecific, nonobstructive nephropathy. Modified Barium Swallow 11/26/24 10:39 IMPRESSION: 1. Trace laryngeal penetration. 2. Please refer to the speech therapy report for recommendations. Chest/Abdomen/Pelvis CT 12/02/24 14:47 IMPRESSION: Redemonstration of subcapsular fluid collections within both the liver and spleen (as detailed above) for which abscess formation is suspected. Both collections are amenable to percutaneous drainage. Bilateral large pleural effusions, with adjacent consolidation, decreased from prior. Catheter Placement CT 12/05/24 15:17 IMPRESSION: 1. Successful CT-guided subcapsular liver abscess drainage. 2. 2 mL opaque, moore fluid was sent for aerobic and anaerobic cultures. 3. Moderate-sized pleural effusions. 4. Moderate volume of ascites. Consider peritoneal drain placement. Chest X-Ray 12/08/24 12:28 IMPRESSION: 1. Stable airspace opacities at the lung bases, consistent with atelectasis versus pneumonia. 2. Stable small pleural effusions. 3. Emphysema. Labs Labs: Laboratory Results - last 24 hr 12/07/24 12/07/24 12/08/24 16:50 20:32 07:04 WBC 17.2 H RBC 3.20 L Hgb 9.0 L Hct 28.2 L MCV 88.1 MCH 28.1 MCHC 31.9 L RDW 14.2 Plt Count 565 H MPV 10.2 Sodium 136 L Potassium 3.3 L Chloride 94 L Carbon Dioxide 36 H Anion Gap 6 BUN 38 H Creatinine 1.90 H Estim Creat Clear Calc 19 Estimated GFR 35 L Glucose 133 H POC Capillary Glucose 119 H 109 H Calcium 8.8 Magnesium 1.7 Total Bilirubin 0.5 AST 29 ALT 12 Alkaline Phosphatase 140 H Total Protein 7.0 Albumin 3.1 L 12/08/24 12/08/24 07:44 11:31 WBC RBC Hgb Hct MCV MCH MCHC RDW Plt Count MPV Sodium Potassium Chloride Carbon Dioxide Anion Gap BUN Creatinine Estim Creat Clear Calc Estimated GFR Glucose POC Capillary Glucose 160 H 114 H Calcium Magnesium Total Bilirubin AST ALT Alkaline Phosphatase Total Protein Albumin Quality VTE Prophylaxis VTE prophylaxis: mechanical ordered and pharmacologic ordered Hospitalist MIPS Advance Care Plan I have confirmed that the patient's Advanced Care Plan is present, code status is documented, or surrogate decision maker is listed in patient medical record.: Yes Medication Reconciliation I have utilized all available resources to obtain, update and review the patients current medications (includes all prescriptions, OTC, herbals, cannabis, and nutritional supplements).: Yes
[2024-12-08 16:49] LABS: Glucose Point of Care 109 mg/dl (65-105)
[2024-12-08 20:00] VITALS: PULSE 77; RESP 20; O2SAT 97
[2024-12-08] MEDS: PANTOPRAZOLE SODIUM IV 40 MG VIAL IV PUSH (21:23)
[2024-12-08] MEDS: MIRTAZAPINE 15 MG TABLET PO (21:23)
[2024-12-08] MEDS: HYDROmorphone HCL INJ (*CRX) 1 MG/ML SYR IV PUSH (21:23)
[2024-12-08 22:00] VITALS: BP 113/57; PULSE 97; RESP 16; TEMP 36.3; O2SAT 90
[2024-12-08 22:55] LABS: Glucose Point of Care 105 mg/dl (65-105)
[2024-12-09 05:10] VITALS: BP 129/74; PULSE 79; RESP 16; TEMP 36.5; O2SAT 94
[2024-12-09] MEDS: MEROPENEM 500 MG/NS 100 ML 500 MG/100 ML BAG 200 MG IVPB ×2 (05:52→17:52)
[2024-12-09 06:51] LABS: Alanine Aminotransferase 12 U/L (6-50); Albumin Level 3.1 g/dL (3.5-5.1); Alkaline Phosphatase 132 U/L (38-126); Anion Gap 5 mmol/L (4-12); Aspartate Amino Transferase 35 U/L (17-59); Bilirubin,Total 0.4 mg/dL (0.2-1.3); Blood Urea Nitrogen 40 mg/dL (9-20); Calcium 8.5 mg/dL (8.4-10.2); Carbon Dioxide 37 mmol/L (22-30); Chloride 94 mmol/L (98-107); Estimated CRCL calculation 21 ml/min; Estimated Glomerular Filt Rate 39; Glucose 118 mg/dL (65-110); Phosphorus 3.6 mg/dL (2.5-4.5); Potassium 3.4 mmol/L (3.4-5.0); Sodium 136 mmol/L (137-145)
[2024-12-09 06:59] LABS: Hemoglobin 8.6 g/dL (14.0-18.0); Mean Corpuscular HGB Conc 31.9 g/dl (32-36); Mean Corpuscular Hemoglobin 28.3 pg (26-34); Mean Corpuscular Volume 88.8 fl (80-100); Platelet Count Result 583 k/mm3 (150-375); Red Blood Count 3.04 M/mm3 (4.6-6.20); Red Cell Distribution Width 14.2 % (11.5-14.5)
[2024-12-09 07:45] LABS: Glucose Point of Care 121 mg/dl (65-105)
[2024-12-09 08:00] VITALS: O2SAT 96
--- NOTE | 2024-12-09 08:34 | P.PNIM_ITS ---
Progress Note: A&P Assessment and Plan (1) Metabolic acidosis: Code(s): E87.20 - Acidosis, unspecified Status: Acute Assessment and Plan: resolved (2) DEBI (acute kidney injury): Code(s): N17.9 - Acute kidney failure, unspecified Status: Acute Assessment and Plan: Creatinine improving Nephrology following (3) Perforated gastric ulcer: Qualifiers: Gastric ulcer chronicity: acute Qualified Code(s): K25.1 - Acute gastric ulcer with perforation Code(s): K25.5 - Chronic or unspecified gastric ulcer with perforation Status: Acute Assessment and Plan: Resolved Continue with Protonix and monitor hgb (4) COPD (chronic obstructive pulmonary disease): Code(s): J44.9 - Chronic obstructive pulmonary disease, unspecified Status: Acute Assessment and Plan: Stable on current medications. Will continue current treatment. (5) Sepsis: Code(s): A41.9 - Sepsis, unspecified organism Status: Acute Assessment and Plan: Completed antibiotics (6) Pneumonia: Code(s): J18.9 - Pneumonia, unspecified organism Status: Acute Assessment and Plan: Completed antibiotics pneumonia resolved Repeat CXR showed pulm edema and Pleural effusion now on lasix (7) Acute hypoxic respiratory failure: Code(s): J96.01 - Acute respiratory failure with hypoxia Status: Acute Assessment and Plan: resolved CXR showed pulm edema and pleural effusion continue Lasix 20mg bid and monitor renal function ECHO from june normal function monitor (8) Sepsis associated hypotension: Code(s): A41.9 - Sepsis, unspecified organism; I95.9 - Hypotension, unspecified Status: Acute Assessment and Plan: completed antibiotics (9) EtOH dependence: Code(s): F10.20 - Alcohol dependence, uncomplicated Status: Acute Assessment and Plan: Counselling given Plan Consulted Hospice Perforated Gastric ulcer Patient underwent surgery on 11/05. Patient condition has been declining after the perforated gastric ulcer. Recently he was placed perc drain due to spleen and liver abscess. Diarrhea Resolved Stool culture and c diff negative Likely from pureed diet started on PRN imodium leukocytosis Worsening despite no evidence of infection WBC continues to rise. Surgery re-evaluated the re-demonstration of subcapsular fluid collections within both the liver and spleen for which abscess formation is suspected.. Underwent perc drain on 12/05 Repeat blood culture pending. CXR done several days ago showed pulm edema and patient has responded to lasix and off oxygen Lactic acid normal Repeated blood culture Code status DNR DVT prophylaxis on Sq Lovenox PT/OT following Awaiting placement to [facility] Subjective Date/time seen: 12/09/24 08:34 Interval history: Discussed with his brother and his friend. Discussed the goal of care.Pending evaluation from Hospice. Review of Systems Review of Systems: Pt with a dry throat not talking loudly ROS unobtainable: Yes unobtainable due to endotracheal tube, unobtainable due to medical condition and unobtainable due to mental status Exam Narrative: General: More alert toady Lungs/Chest: Trachea central Coarse BS B/L, No crackles or wheezing. Cardiac: RRR. Normal S1 S2. No murmurs Abdomen: Decreased but present bowel sounds. Extremities: No clubbing, cyanosis or edema. Warm : Shen in place Neurologic: Patient is able to move all 4 extremities spontaneously. Objective Data Vital Signs Vital Signs: Vital Signs - 24 hr 12/08/24 09:28 12/08/24 14:00 12/08/24 20:00 Temperature 97.8 F Pulse Rate 77 77 Respiratory Rate 20 20 Blood Pressure 130/77 Pulse Oximetry 96 97 97 Oxygen Delivery Nasal Cannula Nasal Cannula Oxygen Flow Rate 1 1 Fraction of Inspired Oxygen 12/08/24 22:00 12/09/24 05:10 Temperature 97.3 F L 97.7 F Pulse Rate 97 79 Respiratory Rate 16 16 Blood Pressure 113/57 L 129/74 Pulse Oximetry 90 94 Oxygen Delivery Oxygen Flow Rate Fraction of Inspired Oxygen Intake/Output Intake/Output: Intake & Output 12/06/24 12/07/24 12/08/24 12/09/24 23:59 23:59 23:59 23:59 Intake Total 1820 880 395 215 Output Total 445 236 4844 600 Balance 7358 478 -367 -820 Meds/Results Medications: Active Medications Generic Name Dose Route Start Last Admin Trade Name Freq PRN Reason Stop Dose Admin Acetaminophen 650 mg 11/14/24 15:21 12/07/24 18:02 Acetaminophen Elixir 325 Mg/10.15 Ml Udc FEED TUBE 650 mg Q4H PRN Administration Headache, Fever, Mild Pain Acetaminophen 650 mg 12/08/24 16:13 Acetaminophen 650 Mg Suppository RECTAL Q4H PRN Mild Pain (1-3) or Fever Albuterol 2.5 mg 12/08/24 16:23 Albuterol Sulfate Neb 2.5 Mg/3 Ml Inh INHALATION Q12HR PRN Shortness Of Breath Amlodipine Besylate 10 mg 12/02/24 09:00 12/08/24 09:01 Amlodipine Besylate 10 Mg Tablet PO 10 mg DAILY SOURAV Administration Dextrose 12.5 gm 11/06/24 07:40 11/21/24 16:58 Dextrose 50% 25 Gm/50 Ml Syringe IV PUSH 12.5 gm PRN PRN Administration Hypoglycemia Protocol Enoxaparin Sodium 30 mg 11/29/24 09:00 12/08/24 09:01 Enoxaparin 30 Mg/0.3 Ml Syringe SUB-Q 30 mg DAILY SOURAV Administration Folic Acid 1 mg 12/08/24 09:00 12/08/24 18:38 Folic Acid 1 Mg/0.2 Ml Inj IV PUSH Not Given QAM SOURAV Furosemide 20 mg 11/28/24 17:00 12/08/24 18:37 Furosemide Inj 40 Mg/4 Ml Vial IV PUSH 20 mg BID SOURAV Administration Glucagon 1 mg 11/06/24 07:40 Glucagon For Inj 1 Mg Vial IM PRN PRN Hypoglycemia Protocol Glucose 15 gm 11/06/24 07:40 Glucose Oral Gel 15 Gm Of Glucse In 37.5 Gm Tube PO PRN PRN Hypoglycemia Protocol Hydralazine HCl 10 mg 11/10/24 09:16 11/30/24 06:00 Hydralazine Hcl 20 Mg/Ml Vial IV PUSH 10 mg Q4HR PRN Administration Blood Pressure - High Hydrochlorothiazide 25 mg 12/03/24 09:00 12/08/24 09:01 Hydrochlorothiazide 25 Mg Tablet PO 25 mg QAM SOURAV Administration Hydromorphone HCl 1 mg 12/06/24 01:25 12/08/24 21:23 Hydromorphone Hcl Inj (*Crx) 1 Mg/Ml Syr IV PUSH 1 mg Q3H PRN Administration Breakthrough Pain Dextrose 1,000 mls @ 100 mls/hr 11/06/24 07:40 Dextrose 5% 1,000 Ml IVPB PRN PRN Hypoglycemia Protocol Meropenem 500 mg in 100 mls @ 200 mls/hr 12/04/24 18:00 12/09/24 06:22 IVPB Infused Q12H SOURAV Infusion Insulin Aspart 2 - 5 units 11/18/24 08:00 12/08/24 18:34 Insulin Aspart (*Bkc) 100 Units/Ml SUB-Q Not Given TIDWM [facility] Protocol Loperamide HCl 2 mg 12/01/24 10:59 12/01/24 15:17 Loperamide Hcl 2 Mg Capsule PO 2 mg PRN PRN Administration Diarrhea Mirtazapine 15 mg 11/30/24 21:00 12/08/24 21:23 Mirtazapine 15 Mg Tablet PO 15 mg HS SOURAV Administration Naloxone HCl 0.1 mg 12/08/24 16:21 Naloxone Hcl 0.4 Mg/Ml Vial IV PUSH Q2M PRN Opiate Reversal Ondansetron HCl 4 mg 12/08/24 16:21 Ondansetron Inj 4 Mg/2 Ml Vial IV PUSH Q4H PRN Nausea And Vomiting Pantoprazole Sodium 40 mg 12/08/24 21:00 12/08/24 21:23 Pantoprazole Sodium Iv 40 Mg Vial IV PUSH 40 mg Q12HR SOURAV Administration Phenyleph/Shark Oil/[place] Butter 1 supp 11/19/24 18:18 11/19/24 18:33 Phenylephrine Hcl/[place] Butter Supp.Rect (*Bkc) RECTAL 1 supp Q12HR PRN Administration Hemorrhoids Potassium Chloride 20 meq 12/06/24 09:00 12/08/24 09:01 Potassium Chloride 20 Meq Packet (For Liquid) PO 20 meq DAILY SOURAV Administration Psyllium Hydrophilic Mucilloid 1 packet 11/29/24 09:00 12/08/24 09:01 Psyllium Powder Packet PO 1 packet QAM SOURAV Administration Thiamine HCl 100 mg 12/08/24 09:00 12/08/24 18:38 Thiamine Hcl 200 Mg/2 Ml Vial IV PUSH Not Given QAM SOURAV Tramadol HCl 50 mg 12/06/24 01:23 12/06/24 09:08 Tramadol Hcl (*Crx) 50 Mg Tablet PO 50 mg Q6H PRN Administration Pain Rated 4-6 Radiology Results: ITS Impressions Head CT 11/05/24 20:50 IMPRESSION: 1. Moderate nonspecific cerebral white matter disease, which likely represents chronic small vessel ischemic disease. 2. 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 Upper GI Series 11/08/24 12:17 IMPRESSION: 1. Slow gastric emptying likely related to postoperative ileus. No extraluminal leakage of contrast. Abdomen X-Ray 11/14/24 11:13 IMPRESSION: Nonspecific, nonobstructive bowel gas pattern. Supportive devices unchanged in position. Bilateral pleural effusions. If clinical suspicion persists, CT examination of the abdomen and pelvis (with intravenous contrast) is suggested for further evaluation. Renal Ultrasound 11/19/24 16:17 IMPRESSION: No hydronephrosis or renal calculi. Findings suggesting medical renal disease. Free fluid within the pelvis. Abdomen/Pelvis CT 11/20/24 14:44 IMPRESSION: Large bilateral pleural effusions, with bilateral lower lobe atelectasis. Infection in the lower lobes is not excluded. Single loop of dilated jejunum, likely representing localized ileus. Early/partial obstruction could appear similarly. Colonic wall thickening, as can be seen with colitis. Moderate ascites. Diffuse edema of the subcutaneous fat and mesenteric fat. Venous Doppler Study 11/22/24 10:28 IMPRESSION: 1. No deep venous thrombosis in either lower limb. Renal Scan Nuclear Medicine 11/23/24 14:21 IMPRESSION: 1. Symmetric kidney function. 2. Delayed activity clearance from both kidneys with continually rising activity curves extending over the 30 minutes of observation and without associated hydronephrosis consistent with nonspecific, nonobstructive nephropathy. Modified Barium Swallow 11/26/24 10:39 IMPRESSION: 1. Trace laryngeal penetration. 2. Please refer to the speech therapy report for recommendations. Chest/Abdomen/Pelvis CT 12/02/24 14:47 IMPRESSION: Redemonstration of subcapsular fluid collections within both the liver and spleen (as detailed above) for which abscess formation is suspected. Both collections are amenable to percutaneous drainage. Bilateral large pleural effusions, with adjacent consolidation, decreased from prior. Catheter Placement CT 12/05/24 15:17 IMPRESSION: 1. Successful CT-guided subcapsular liver abscess drainage. 2. 2 mL opaque, moore fluid was sent for aerobic and anaerobic cultures. 3. Moderate-sized pleural effusions. 4. Moderate volume of ascites. Consider peritoneal drain placement. Chest X-Ray 12/08/24 12:28 IMPRESSION: 1. Stable airspace opacities at the lung bases, consistent with atelectasis versus pneumonia. 2. Stable small pleural effusions. 3. Emphysema. Labs Labs: Laboratory Results - last 24 hr 12/08/24 12/08/24 12/08/24 07:04 11:31 16:42 WBC RBC Hgb Hct MCV MCH MCHC RDW Plt Count MPV Sodium Potassium Chloride Carbon Dioxide Anion Gap BUN Creatinine Estim Creat Clear Calc Estimated GFR Glucose POC Capillary Glucose 114 H 109 H Calcium Phosphorus Magnesium 1.7 Total Bilirubin AST ALT Alkaline Phosphatase Total Protein Albumin 12/08/24 12/09/24 12/09/24 22:05 06:32 07:39 WBC 17.0 H RBC 3.04 L Hgb 8.6 L Hct 27.0 L MCV 88.8 MCH 28.3 MCHC 31.9 L RDW 14.2 Plt Count 583 H MPV 10.0 Sodium 136 L Potassium 3.4 Chloride 94 L Carbon Dioxide 37 H Anion Gap 5 BUN 40 H Creatinine 1.73 H Estim Creat Clear Calc 21 Estimated GFR 39 L Glucose 118 H POC Capillary Glucose 105 121 H Calcium 8.5 Phosphorus 3.6 Magnesium Total Bilirubin 0.4 AST 35 ALT 12 Alkaline Phosphatase 132 H Total Protein 7.0 Albumin 3.1 L Quality VTE Prophylaxis VTE prophylaxis: mechanical ordered and pharmacologic ordered Hospitalist MIPS Advance Care Plan I have confirmed that the patient's Advanced Care Plan is present, code status is documented, or surrogate decision maker is listed in patient medical record.: Yes Medication Reconciliation I have utilized all available resources to obtain, update and review the patients current medications (includes all prescriptions, OTC, herbals, cannabis, and nutritional supplements).: Yes
[2024-12-09 08:42] VITALS: O2SAT 96
--- NOTE | 2024-12-09 09:45 | P.PNNP_ITS ---
Progress Note: A&P Assessment and Plan (1) DEBI (acute kidney injury): Code(s): N17.9 - Acute kidney failure, unspecified Status: Acute Assessment and Plan: * relatively stable * initial insult on admission was due to sepsis hypotension, fluid shifts and hypovolemia * resolved with supportive therapy * second episode noted on 11/18...creatinine increased from 0.9 -> 2.2 -> 3.0mg/dl...etc * etiology of second episode is not entirely clear... * suspect ATN from prerenal azotemia secondary to third spacing given recent abdominal surgery compounded by his diminished oral intake * recent CT scan noted (ascites, pleural effusions, anasarca...) * evaluation to date noted: * renal ultrasound without obstruction but with medical renal disease * urine electrolytes prerenal * UA not indicative of infection * urine eosinophils negative * mild proteinuria noted (~ 1300mg proteinuria) * CPK low * renal scan suggestive of ATN * creatinine peaked/plateaued at 4.20mg/dl with ongoing improvement noted. the creatinine improved again today to 1.73. * On p.o. diuretics now * suspect new baseline creatinine of high 1s or Low 2s. * Check another creatinine tomorrow. (2) Perforated gastric ulcer: Qualifiers: Gastric ulcer chronicity: acute Qualified Code(s): K25.1 - Acute gastric ulcer with perforation Code(s): K25.5 - Chronic or unspecified gastric ulcer with perforation Status: Acute Assessment and Plan: * s/p exploratory laparotomy, extensive lysis of adhesions, intra-abdominal washout, repair of perforated gastric ulcer with omental patch * on antibiotics * local wound care * Surgery following (3) Hypertension: Code(s): I10 - Essential (primary) hypertension Status: Chronic Assessment and Plan: * blood pressure is doing we * On amlodipine and hydrochlorothiazide. * likely an undiagnosed condition * As an outpatient he may be switch from amlodipine to an NATALIE-inhibitor depending on his proteinuria. * chest x-ray showed stable small pleural effusion. * Will continue loop diuretics for now. (4) COPD (chronic obstructive pulmonary disease): Code(s): J44.9 - Chronic obstructive pulmonary disease, unspecified Status: Acute Assessment and Plan: * not in exacerbation * bronchodilators as needed (5) Severe protein-calorie malnutrition: Code(s): E43 - Unspecified severe protein-calorie malnutrition Status: Acute Assessment and Plan: * on dronabinol 5mg bid * advance diet as tolerated (6) EtOH dependence: Code(s): F10.20 - Alcohol dependence, uncomplicated Status: Acute Assessment and Plan: * known history * no evidence of withdrawal since admission * continue thiamine and folic acid Subjective Date/time seen: 12/09/24 09:45 Interval history: Rupert is feeling okay today. He is eating some. Exam Narrative: General: elderly very thin male in NAD Heart: normal S1 and S2; no rub or gallop Lungs: clear anteriorly; decreased at bases Abdomen: soft and nontender; positive bowel sounds Extremities: no edema Skin: no rash Objective Data Vital Signs Vital Signs: Vital Signs - 24 hr 12/08/24 14:00 12/08/24 20:00 12/08/24 22:00 Temperature 97.8 F 97.3 F L Pulse Rate 77 77 97 Respiratory Rate 20 20 16 Blood Pressure 130/77 113/57 L Pulse Oximetry 97 97 90 Oxygen Delivery Nasal Cannula Oxygen Flow Rate 1 Fraction of Inspired Oxygen 24 12/09/24 05:10 12/09/24 08:42 Temperature 97.7 F Pulse Rate 79 Respiratory Rate 16 Blood Pressure 129/74 Pulse Oximetry 94 96 Oxygen Delivery Nasal Cannula Oxygen Flow Rate 1 Fraction of Inspired Oxygen 24 Intake/Output Intake/Output: Intake & Output 12/06/24 12/07/24 12/08/24 12/09/24 23:59 23:59 23:59 23:59 Intake Total 1820 880 395 215 Output Total 910 165 3370 600 Balance 1720 244 -935 -820 Meds/Results Medications: Active Medications Generic Name Dose Route Start Last Admin Trade Name Freq PRN Reason Stop Dose Admin Acetaminophen 650 mg 11/14/24 15:21 12/07/24 18:02 Acetaminophen Elixir 325 Mg/10.15 Ml Udc FEED TUBE 650 mg Q4H PRN Administration Headache, Fever, Mild Pain Acetaminophen 650 mg 12/08/24 16:13 Acetaminophen 650 Mg Suppository RECTAL Q4H PRN Mild Pain (1-3) or Fever Albuterol 2.5 mg 12/08/24 16:23 Albuterol Sulfate Neb 2.5 Mg/3 Ml Inh INHALATION Q12HR PRN Shortness Of Breath Amlodipine Besylate 10 mg 12/02/24 09:00 12/08/24 09:01 Amlodipine Besylate 10 Mg Tablet PO 10 mg DAILY SOURAV Administration Dextrose 12.5 gm 11/06/24 07:40 11/21/24 16:58 Dextrose 50% 25 Gm/50 Ml Syringe IV PUSH 12.5 gm PRN PRN Administration Hypoglycemia Protocol Enoxaparin Sodium 30 mg 11/29/24 09:00 12/08/24 09:01 Enoxaparin 30 Mg/0.3 Ml Syringe SUB-Q 30 mg DAILY SOURAV Administration Folic Acid 1 mg 12/08/24 09:00 12/08/24 18:38 Folic Acid 1 Mg/0.2 Ml Inj IV PUSH Not Given QAM SOURAV Furosemide 20 mg 11/28/24 17:00 12/08/24 18:37 Furosemide Inj 40 Mg/4 Ml Vial IV PUSH 20 mg BID SOURAV Administration Glucagon 1 mg 11/06/24 07:40 Glucagon For Inj 1 Mg Vial IM PRN PRN Hypoglycemia Protocol Glucose 15 gm 11/06/24 07:40 Glucose Oral Gel 15 Gm Of Glucse In 37.5 Gm Tube PO PRN PRN Hypoglycemia Protocol Hydralazine HCl 10 mg 11/10/24 09:16 11/30/24 06:00 Hydralazine Hcl 20 Mg/Ml Vial IV PUSH 10 mg Q4HR PRN Administration Blood Pressure - High Hydrochlorothiazide 25 mg 12/03/24 09:00 12/08/24 09:01 Hydrochlorothiazide 25 Mg Tablet PO 25 mg QAM SOURAV Administration Hydromorphone HCl 1 mg 12/06/24 01:25 12/08/24 21:23 Hydromorphone Hcl Inj (*Crx) 1 Mg/Ml Syr IV PUSH 1 mg Q3H PRN Administration Breakthrough Pain Dextrose 1,000 mls @ 100 mls/hr 11/06/24 07:40 Dextrose 5% 1,000 Ml IVPB PRN PRN Hypoglycemia Protocol Meropenem 500 mg in 100 mls @ 200 mls/hr 12/04/24 18:00 12/09/24 06:22 IVPB Infused Q12H SOURAV Infusion Insulin Aspart 2 - 5 units 11/18/24 08:00 12/08/24 18:34 Insulin Aspart (*Bkc) 100 Units/Ml SUB-Q Not Given TIDWM SOURAV Protocol Loperamide HCl 2 mg 12/01/24 10:59 12/01/24 15:17 Loperamide Hcl 2 Mg Capsule PO 2 mg PRN PRN Administration Diarrhea Mirtazapine 15 mg 11/30/24 21:00 12/08/24 21:23 Mirtazapine 15 Mg Tablet PO 15 mg HS SOURAV Administration Naloxone HCl 0.1 mg 12/08/24 16:21 Naloxone Hcl 0.4 Mg/Ml Vial IV PUSH Q2M PRN Opiate Reversal Ondansetron HCl 4 mg 12/08/24 16:21 Ondansetron Inj 4 Mg/2 Ml Vial IV PUSH Q4H PRN Nausea And Vomiting Pantoprazole Sodium 40 mg 12/08/24 21:00 12/08/24 21:23 Pantoprazole Sodium Iv 40 Mg Vial IV PUSH 40 mg Q12HR SOURAV Administration Phenyleph/Shark Oil/Springs Butter 1 supp 11/19/24 18:18 11/19/24 18:33 Phenylephrine Hcl/Springs Butter Supp.Rect (*Bkc) RECTAL 1 supp Q12HR PRN Administration Hemorrhoids Potassium Chloride 20 meq 12/06/24 09:00 12/08/24 09:01 Potassium Chloride 20 Meq Packet (For Liquid) PO 20 meq DAILY SOURAV Administration Psyllium Hydrophilic Mucilloid 1 packet 11/29/24 09:00 12/08/24 09:01 Psyllium Powder Packet PO 1 packet QAM SOURAV Administration Thiamine HCl 100 mg 12/08/24 09:00 12/08/24 18:38 Thiamine Hcl 200 Mg/2 Ml Vial IV PUSH Not Given QAM SOURAV Tramadol HCl 50 mg 12/06/24 01:23 12/06/24 09:08 Tramadol Hcl (*Crx) 50 Mg Tablet PO 50 mg Q6H PRN Administration Pain Rated 4-6 Radiology Results: ITS Impressions Head CT 11/05/24 20:50 IMPRESSION: 1. Moderate nonspecific cerebral white matter disease, which likely represents chronic small vessel ischemic disease. 2. 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 Upper GI Series 11/08/24 12:17 IMPRESSION: 1. Slow gastric emptying likely related to postoperative ileus. No extraluminal leakage of contrast. Abdomen X-Ray 11/14/24 11:13 IMPRESSION: Nonspecific, nonobstructive bowel gas pattern. Supportive devices unchanged in position. Bilateral pleural effusions. If clinical suspicion persists, CT examination of the abdomen and pelvis (with intravenous contrast) is suggested for further evaluation. Renal Ultrasound 11/19/24 16:17 IMPRESSION: No hydronephrosis or renal calculi. Findings suggesting medical renal disease. Free fluid within the pelvis. Abdomen/Pelvis CT 11/20/24 14:44 IMPRESSION: Large bilateral pleural effusions, with bilateral lower lobe atelectasis. Infection in the lower lobes is not excluded. Single loop of dilated jejunum, likely representing localized ileus. Early/ partial obstruction could appear similarly. Colonic wall thickening, as can be seen with colitis. Moderate ascites. Diffuse edema of the subcutaneous fat and mesenteric fat. Venous Doppler Study 11/22/24 10:28 IMPRESSION: 1. No deep venous thrombosis in either lower limb. Renal Scan Nuclear Medicine 11/23/24 14:21 IMPRESSION: 1. Symmetric kidney function. 2. Delayed activity clearance from both kidneys with continually rising activity curves extending over the 30 minutes of observation and without associated hydronephrosis consistent with nonspecific, nonobstructive nep hropathy. Modified Barium Swallow 11/26/24 10:39 IMPRESSION: 1. Trace laryngeal penetration. 2. Please refer to the speech therapy report for recommendations. Chest/Abdomen/Pelvis CT 12/02/24 14:47 IMPRESSION: Redemonstration of subcapsular fluid collections within both the liver and spleen (as detailed above) for which abscess formation is suspected. Both collections are amenable to percutaneous drainage. Bilateral large pleural effusions, with adjacent consolidation, decreased from prior. Catheter Placement CT 12/05/24 15:17 IMPRESSION: 1. Successful CT-guided subcapsular liver abscess drainage. 2. 2 mL opaque, moore fluid was sent for aerobic and anaerobic cultures. 3. Moderate-sized pleural effusions. 4. Moderate volume of ascites. Consider peritoneal drain placement. Chest X-Ray 12/08/24 12:28 IMPRESSION: 1. Stable airspace opacities at the lung bases, consistent with atelectasis versus pneumonia. 2. Stable small pleural effusions. 3. Emphysema. Labs Labs: Laboratory Results - last 24 hr 12/08/24 12/08/24 12/08/24 07:04 11:31 16:42 WBC RBC Hgb Hct MCV MCH MCHC RDW Plt Count MPV Sodium Potassium Chloride Carbon Dioxide Anion Gap BUN Creatinine Estim Creat Clear Calc Estimated GFR Glucose POC Capillary Glucose 114 H 109 H Calcium Phosphorus Magnesium 1.7 Total Bilirubin AST ALT Alkaline Phosphatase Total Protein Albumin 12/08/24 12/09/24 12/09/24 22:05 06:32 07:39 WBC 17.0 H RBC 3.04 L Hgb 8.6 L Hct 27.0 L MCV 88.8 MCH 28.3 MCHC 31.9 L RDW 14.2 Plt Count 583 H MPV 10.0 Sodium 136 L Potassium 3.4 Chloride 94 L Carbon Dioxide 37 H Anion Gap 5 BUN 40 H Creatinine 1.73 H Estim Creat Clear Calc 21 Estimated GFR 39 L Glucose 118 H POC Capillary Glucose 105 121 H Calcium 8.5 Phosphorus 3.6 Magnesium Total Bilirubin 0.4 AST 35 ALT 12 Alkaline Phosphatase 132 H Total Protein 7.0 Albumin 3.1 L
[2024-12-09] MEDS: PSYLLIUM POWDER PACKET 1 PACKET PO (10:45)
[2024-12-09] MEDS: hydroCHLOROthiazide 25 MG TABLET PO (10:45)
[2024-12-09] MEDS: amLODIPine BESYLATE 10 MG TABLET PO (10:45)
[2024-12-09] MEDS: POTASSIUM CHLORIDE 20 MEQ PACKET (FOR LIQUID) PO (10:46)
[2024-12-09] MEDS: ENOXAPARIN 30 MG/0.3 ML SYRINGE SUB-Q (10:46)
[2024-12-09] MEDS: FUROSEMIDE INJ 40 MG/4 ML VIAL 20 MG IV PUSH ×2 (10:48→17:52)
[2024-12-09] MEDS: PANTOPRAZOLE SODIUM IV 40 MG VIAL IV PUSH ×2 (10:48→22:33)
[2024-12-09] MEDS: FOLIC ACID 1 MG/0.2 ML INJ IV PUSH (10:49)
[2024-12-09] MEDS: THIAMINE HCL 200 MG/2 ML VIAL 100 MG IV PUSH (10:58)
[2024-12-09 11:51] LABS: Glucose Point of Care 182 mg/dl (65-105)
--- NOTE | 2024-12-09 12:04 | WPDPN ---
Progress Note: A&P Assessment and Plan (1) Abdominal pain: Qualifiers: Abdominal location: unspecified location Qualified Code(s): R10.9 - Unspecified abdominal pain Code(s): R10.9 - Unspecified abdominal pain Status: Acute Assessment and Plan: Liver abscess has been drained. Output from the drain is low. However his white blood cell count continues to be stable around 17,000. Will repeat CT of the abdomen and pelvis tomorrow to see if the abscess has been adequately drained. So far cultures from the initial drainage are negative. (2) Perforated viscus: Code(s): R19.8 - Other specified symptoms and signs involving the digestive system and abdomen Status: Acute Assessment and Plan: Doing well after surgical repair perforated duodenal ulcer. Subjective Date/time seen: 12/09/24 12:04 Interval history: Patient without significant clinical change. Tolerating diet. No fever[place] [address]. No growth drainage of the liver abscess culture. Exam GI: Other: Abdomen is soft and benign. Right upper quad pigtail drain in place. Minimal output Objective Data Vital Signs Vital Signs: Vital Signs - 24 hr 12/08/24 14:00 12/08/24 20:00 12/08/24 22:00 Temperature 36.6 C 36.3 C L Pulse Rate 77 77 97 Respiratory Rate 20 20 16 Blood Pressure 130/77 113/57 L Pulse Oximetry 97 97 90 Oxygen Delivery Nasal Cannula Oxygen Flow Rate 1 Fraction of Inspired Oxygen 24 12/09/24 05:10 12/09/24 08:42 Temperature 36.5 C Pulse Rate 79 Respiratory Rate 16 Blood Pressure 129/74 Pulse Oximetry 94 96 Oxygen Delivery Nasal Cannula Oxygen Flow Rate 1 Fraction of Inspired Oxygen 24 Intake/Output Intake/Output: Intake & Output 12/06/24 12/07/24 12/08/24 12/09/24 23:59 23:59 23:59 23:59 Intake Total 1820 880 395 315 Output Total 295 393 2957 600 Balance 1723 525 -776 -350 Meds/Results Medications: Active Medications Generic Name Dose Route Start Last Admin Trade Name Freq PRN Reason Stop Dose Admin Acetaminophen 650 mg 11/14/24 15:21 12/07/24 18:02 Acetaminophen Elixir 325 Mg/10.15 Ml Udc FEED TUBE 650 mg Q4H PRN Administration Headache, Fever, Mild Pain Acetaminophen 650 mg 12/08/24 16:13 Acetaminophen 650 Mg Suppository RECTAL Q4H PRN Mild Pain (1-3) or Fever Albuterol 2.5 mg 12/08/24 16:23 Albuterol Sulfate Neb 2.5 Mg/3 Ml Inh INHALATION Q12HR PRN Shortness Of Breath Amlodipine Besylate 10 mg 12/02/24 09:00 12/09/24 10:45 Amlodipine Besylate 10 Mg Tablet PO 10 mg DAILY SOURAV Administration Dextrose 12.5 gm 11/06/24 07:40 11/21/24 16:58 Dextrose 50% 25 Gm/50 Ml Syringe IV PUSH 12.5 gm PRN PRN Administration Hypoglycemia Protocol Enoxaparin Sodium 30 mg 11/29/24 09:00 12/09/24 10:46 Enoxaparin 30 Mg/0.3 Ml Syringe SUB-Q 30 mg DAILY SUORAV Administration Folic Acid 1 mg 12/08/24 09:00 12/09/24 10:49 Folic Acid 1 Mg/0.2 Ml Inj IV PUSH 1 mg QAM SOURAV Administration Furosemide 20 mg 11/28/24 17:00 12/09/24 10:48 Furosemide Inj 40 Mg/4 Ml Vial IV PUSH 20 mg BID SOURAV Administration Glucagon 1 mg 11/06/24 07:40 Glucagon For Inj 1 Mg Vial IM PRN PRN Hypoglycemia Protocol Glucose 15 gm 11/06/24 07:40 Glucose Oral Gel 15 Gm Of Glucse In 37.5 Gm Tube PO PRN PRN Hypoglycemia Protocol Hydralazine HCl 10 mg 11/10/24 09:16 11/30/24 06:00 Hydralazine Hcl 20 Mg/Ml Vial IV PUSH 10 mg Q4HR PRN Administration Blood Pressure - High Hydrochlorothiazide 25 mg 12/03/24 09:00 12/09/24 10:45 Hydrochlorothiazide 25 Mg Tablet PO 25 mg QAM SOURAV Administration Hydromorphone HCl 1 mg 12/06/24 01:25 12/08/24 21:23 Hydromorphone Hcl Inj (*Crx) 1 Mg/Ml Syr IV PUSH 1 mg Q3H PRN Administration Breakthrough Pain Dextrose 1,000 mls @ 100 mls/hr 11/06/24 07:40 Dextrose 5% 1,000 Ml IVPB PRN PRN Hypoglycemia Protocol Meropenem 500 mg in 100 mls @ 200 mls/hr 12/04/24 18:00 12/09/24 06:22 IVPB Infused Q12H SOURAV Infusion Insulin Aspart 2 - 5 units 11/18/24 08:00 12/09/24 10:43 Insulin Aspart (*Bkc) 100 Units/Ml SUB-Q Not Given TIDWM [facility] Protocol Loperamide HCl 2 mg 12/01/24 10:59 12/01/24 15:17 Loperamide Hcl 2 Mg Capsule PO 2 mg PRN PRN Administration Diarrhea Mirtazapine 15 mg 11/30/24 21:00 12/08/24 21:23 Mirtazapine 15 Mg Tablet PO 15 mg HS SOURAV Administration Naloxone HCl 0.1 mg 12/08/24 16:21 Naloxone Hcl 0.4 Mg/Ml Vial IV PUSH Q2M PRN Opiate Reversal Ondansetron HCl 4 mg 12/08/24 16:21 Ondansetron Inj 4 Mg/2 Ml Vial IV PUSH Q4H PRN Nausea And Vomiting Pantoprazole Sodium 40 mg 12/08/24 21:00 12/09/24 10:48 Pantoprazole Sodium Iv 40 Mg Vial IV PUSH 40 mg Q12HR SOURAV Administration Phenyleph/Shark Oil/Robert Butter 1 supp 11/19/24 18:18 11/19/24 18:33 Phenylephrine Hcl/Robert Butter Supp.Rect (*Bkc) RECTAL 1 supp Q12HR PRN Administration Hemorrhoids Potassium Chloride 20 meq 12/06/24 09:00 12/09/24 10:46 Potassium Chloride 20 Meq Packet (For Liquid) PO 20 meq DAILY SOURAV Administration Psyllium Hydrophilic Mucilloid 1 packet 11/29/24 09:00 12/09/24 10:45 Psyllium Powder Packet PO 1 packet QAM SOURAV Administration Thiamine HCl 100 mg 12/08/24 09:00 12/09/24 10:58 Thiamine Hcl 200 Mg/2 Ml Vial IV PUSH 100 mg QAM SOURAV Administration Tramadol HCl 50 mg 12/06/24 01:23 12/06/24 09:08 Tramadol Hcl (*Crx) 50 Mg Tablet PO 50 mg Q6H PRN Administration Pain Rated 4-6 Radiology Results: ITS Impressions Head CT 11/05/24 20:50 IMPRESSION: 1. Moderate nonspecific cerebral white matter disease, which likely represents chronic small vessel ischemic disease. 2. 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 Upper GI Series 11/08/24 12:17 IMPRESSION: 1. Slow gastric emptying likely related to postoperative ileus. No extraluminal leakage of contrast. Abdomen X-Ray 11/14/24 11:13 IMPRESSION: Nonspecific, nonobstructive bowel gas pattern. Supportive devices unchanged in position. Bilateral pleural effusions. If clinical suspicion persists, CT examination of the abdomen and pelvis (with intravenous contrast) is suggested for further evaluation. Renal Ultrasound 11/19/24 16:17 IMPRESSION: No hydronephrosis or renal calculi. Findings suggesting medical renal disease. Free fluid within the pelvis. Abdomen/Pelvis CT 11/20/24 14:44 IMPRESSION: Large bilateral pleural effusions, with bilateral lower lobe atelectasis. Infection in the lower lobes is not excluded. Single loop of dilated jejunum, likely representing localized ileus. Early/partial obstruction could appear similarly. Colonic wall thickening, as can be seen with colitis. Moderate ascites. Diffuse edema of the subcutaneous fat and mesenteric fat. Venous Doppler Study 11/22/24 10:28 IMPRESSION: 1. No deep venous thrombosis in either lower limb. Renal Scan Nuclear Medicine 11/23/24 14:21 IMPRESSION: 1. Symmetric kidney function. 2. Delayed activity clearance from both kidneys with continually rising activity curves extending over the 30 minutes of observation and without associated hydronephrosis consistent with nonspecific, nonobstructive nephropathy. Modified Barium Swallow 11/26/24 10:39 IMPRESSION: 1. Trace laryngeal penetration. 2. Please refer to the speech therapy report for recommendations. Chest/Abdomen/Pelvis CT 12/02/24 14:47 IMPRESSION: Redemonstration of subcapsular fluid collections within both the liver and spleen (as detailed above) for which abscess formation is suspected. Both collections are amenable to percutaneous drainage. Bilateral large pleural effusions, with adjacent consolidation, decreased from prior. Catheter Placement CT 12/05/24 15:17 IMPRESSION: 1. Successful CT-guided subcapsular liver abscess drainage. 2. 2 mL opaque, moore fluid was sent for aerobic and anaerobic cultures. 3. Moderate-sized pleural effusions. 4. Moderate volume of ascites. Consider peritoneal drain placement. Chest X-Ray 12/08/24 12:28 IMPRESSION: 1. Stable airspace opacities at the lung bases, consistent with atelectasis versus pneumonia. 2. Stable small pleural effusions. 3. Emphysema. Labs Labs: Laboratory Results - last 24 hr 12/08/24 12/08/24 12/09/24 16:42 22:05 06:32 WBC 17.0 H RBC 3.04 L Hgb 8.6 L Hct 27.0 L MCV 88.8 MCH 28.3 MCHC 31.9 L RDW 14.2 Plt Count 583 H MPV 10.0 Sodium 136 L Potassium 3.4 Chloride 94 L Carbon Dioxide 37 H Anion Gap 5 BUN 40 H Creatinine 1.73 H Estim Creat Clear Calc 21 Estimated GFR 39 L Glucose 118 H POC Capillary Glucose 109 H 105 Calcium 8.5 Phosphorus 3.6 Total Bilirubin 0.4 AST 35 ALT 12 Alkaline Phosphatase 132 H Total Protein 7.0 Albumin 3.1 L 12/09/24 12/09/24 07:39 11:43 WBC RBC Hgb Hct MCV MCH MCHC RDW Plt Count MPV Sodium Potassium Chloride Carbon Dioxide Anion Gap BUN Creatinine Estim Creat Clear Calc Estimated GFR Glucose POC Capillary Glucose 121 H 182 H Calcium Phosphorus Total Bilirubin AST ALT Alkaline Phosphatase Total Protein Albumin
[2024-12-09 14:00] VITALS: BP 126/80; PULSE 85; RESP 16; TEMP 36.9; O2SAT 96
[2024-12-09 17:00] LABS: Glucose Point of Care 147 mg/dl (65-105)
[2024-12-09 20:00] VITALS: PULSE 79; RESP 16; O2SAT 99
[2024-12-09 21:11] VITALS: BP 131/90; PULSE 79; RESP 16; TEMP 36.3; O2SAT 99
[2024-12-09 22:06] LABS: Glucose Point of Care 102 mg/dl (65-105)
[2024-12-09] MEDS: traMADol HCL (*CRX) 50 MG TABLET PO (22:33)
[2024-12-09] MEDS: MIRTAZAPINE 15 MG TABLET PO (22:33)
[2024-12-10 05:37] VITALS: BP 125/67; PULSE 67; RESP 14; TEMP 36.5; O2SAT 94
[2024-12-10] MEDS: MEROPENEM 500 MG/NS 100 ML 500 MG/100 ML BAG 200 MG IVPB ×2 (05:43→17:56)
[2024-12-10 07:09] LABS: Hematocrit 26.9 % (42.0-52.0); Hemoglobin 8.5 g/dL (14.0-18.0); Mean Corpuscular HGB Conc 31.6 g/dl (32-36); Mean Corpuscular Hemoglobin 28.1 pg (26-34); Mean Corpuscular Volume 88.8 fl (80-100); Mean Platelet Volume 9.6 fl (7.4-10.4); Platelet Count Result 594 k/mm3 (150-375); Red Blood Count 3.03 M/mm3 (4.6-6.20); Red Cell Distribution Width 14.2 % (11.5-14.5)
[2024-12-10 07:59] LABS: Alanine Aminotransferase 13 U/L (6-50); Albumin Level 3.2 g/dL (3.5-5.1); Alkaline Phosphatase 141 U/L (38-126); Anion Gap 7 mmol/L (4-12); Aspartate Amino Transferase 31 U/L (17-59); Bilirubin,Total 0.5 mg/dL (0.2-1.3); Blood Urea Nitrogen 41 mg/dL (9-20); Calcium 8.8 mg/dL (8.4-10.2); Carbon Dioxide 37 mmol/L (22-30); Chloride 94 mmol/L (98-107); Estimated CRCL calculation 21 ml/min; Estimated Glomerular Filt Rate 40; Glucose 95 mg/dL (65-110); Potassium 3.7 mmol/L (3.4-5.0); Sodium 138 mmol/L (137-145)
[2024-12-10 08:05] LABS: Albumin Level 3.2 g/dL (3.5-5.1); Anion Gap 7 mmol/L (4-12); Blood Urea Nitrogen 41 mg/dL (9-20); Calcium 8.7 mg/dL (8.4-10.2); Carbon Dioxide 37 mmol/L (22-30); Chloride 94 mmol/L (98-107); Estimated CRCL calculation 22 ml/min; Estimated Glomerular Filt Rate 43; Glucose 94 mg/dL (65-110); Phosphorus 3.9 mg/dL (2.5-4.5); Potassium 3.7 mmol/L (3.4-5.0); Sodium 138 mmol/L (137-145)
[2024-12-10 08:16] LABS: Glucose Point of Care 97 mg/dl (65-105)
[2024-12-10 09:41] VITALS: O2SAT 94
[2024-12-10] MEDS: amLODIPine BESYLATE 10 MG TABLET PO (09:43)
[2024-12-10] MEDS: hydroCHLOROthiazide 25 MG TABLET PO (09:43)
[2024-12-10] MEDS: PSYLLIUM POWDER PACKET 1 PACKET PO (09:44)
[2024-12-10] MEDS: POTASSIUM CHLORIDE 20 MEQ PACKET (FOR LIQUID) PO (09:44)
[2024-12-10] MEDS: ENOXAPARIN 30 MG/0.3 ML SYRINGE SUB-Q (09:48)
[2024-12-10] MEDS: FUROSEMIDE INJ 40 MG/4 ML VIAL 20 MG IV PUSH ×2 (09:48→17:55)
[2024-12-10] MEDS: THIAMINE HCL 200 MG/2 ML VIAL 100 MG IV PUSH (09:49)
[2024-12-10] MEDS: PANTOPRAZOLE SODIUM IV 40 MG VIAL IV PUSH ×2 (09:50→21:47)
[2024-12-10] MEDS: FOLIC ACID 1 MG/0.2 ML INJ IV PUSH (09:51)
--- NOTE | 2024-12-10 10:36 | P.PNNP_ITS ---
Progress Note: A&P Assessment and Plan (1) DEBI (acute kidney injury): Code(s): N17.9 - Acute kidney failure, unspecified Status: Acute Assessment and Plan: * slow and steady improvemtn * initial insult on admission was due to sepsis hypotension, fluid shifts and hypovolemia * resolved with supportive therapy * second episode noted on 11/18...creatinine increased from 0.9 -> 2.2 -> 3.0mg/dl...etc * etiology of second episode is not entirely clear... * suspect ATN from prerenal azotemia secondary to third spacing given recent abdominal surgery compounded by his diminished oral intake * recent CT scan noted (ascites, pleural effusions, anasarca...) * evaluation to date noted: * renal ultrasound without obstruction but with medical renal disease * urine electrolytes prerenal * UA not indicative of infection * urine eosinophils negative * mild proteinuria noted (~ 1300mg proteinuria) * CPK low * renal scan suggestive of ATN * creatinine peaked/plateaued at 4.20mg/dl with ongoing improvement noted * renal function tolerating gentle diuresis (IV lasix 20mg bid) * suspect may have a new baseline creatinine * it could continue further improve with time.... * follow trend of repeat labs and UOP (2) Perforated gastric ulcer: Qualifiers: Gastric ulcer chronicity: acute Qualified Code(s): K25.1 - Acute gastric ulcer with perforation Code(s): K25.5 - Chronic or unspecified gastric ulcer with perforation Status: Acute Assessment and Plan: * s/p exploratory laparotomy, extensive lysis of adhesions, intra-abdominal washout, repair of perforated gastric ulcer with omental patch * on antibiotics * local wound care * Surgery following (3) Hypertension: Code(s): I10 - Essential (primary) hypertension Status: Chronic Assessment and Plan: * reasonable control at this time * on amlodipine and hydrochlorothiazide. * likely an undiagnosed condition * as an outpatient he may be switch from amlodipine to an NATALIE-inhibitor depending on his proteinuria. * chest x-ray showed stable small pleural effusion. * ok to continue loop diuretics for now (4) COPD (chronic obstructive pulmonary disease): Code(s): J44.9 - Chronic obstructive pulmonary disease, unspecified Status: Acute Assessment and Plan: * not in exacerbation * bronchodilators as needed (5) Severe protein-calorie malnutrition: Code(s): E43 - Unspecified severe protein-calorie malnutrition Status: Acute Assessment and Plan: * on dronabinol 5mg bid * advance diet as tolerated (6) EtOH dependence: Code(s): F10.20 - Alcohol dependence, uncomplicated Status: Acute Assessment and Plan: * known history * no evidence of withdrawal since admission * continue thiamine and folic acid Not much else to add -- will continue to follow from a distance L Subjective Date/time seen: 12/10/24 10:36 Interval history: Follow-up for acute kidney injury/acute renal failure. Chart reviewed since I last saw him -- seems to be doing reasonably well; renal function/creatinine continues to slowly improve given trend of labs; no apparent distress noted; no other issues/events overnight or earlier this morning. Exam 2 Narrative: General: elderly male in NAD Heart: normal S1 and S2; no rub Lungs: clear anteriorly; decreased at bases Abdomen: soft and nontender; positive bowel sounds Extremities: no cyanosis or clubbing; no edema Skin: warm and intact Objective Data Vital Signs Vital Signs: Vital Signs Temp Pulse Resp BP Pulse Ox O2 Del Method O2 Flow Rate 12/10/24 09:41 94 Room Air 12/10/24 05:37 97.7 F 67 14 125/67 94 12/09/24 21:11 97.4 F L 79 16 131/90 99 12/09/24 20:00 79 16 99 Nasal Cannula 1 Intake/Output Intake/Output: Intake & Output 12/07/24 12/08/24 12/09/24 12/10/24 23:59 23:59 23:59 23:59 Intake Total 880 395 865 520 Output Total 550 1050 1200 200 Balance 330 -655 -335 320 Meds/Results Medications: Active Medications Generic Name Dose Route Start Last Admin Trade Name Freq PRN Reason Stop Dose Admin Acetaminophen 650 mg 11/14/24 15:21 12/07/24 18:02 Acetaminophen Elixir 325 Mg/10.15 Ml Udc FEED TUBE 650 mg Q4H PRN Administration Headache, Fever, Mild Pain Acetaminophen 650 mg 12/08/24 16:13 Acetaminophen 650 Mg Suppository RECTAL Q4H PRN Mild Pain (1-3) or Fever Albuterol 2.5 mg 12/08/24 16:23 Albuterol Sulfate Neb 2.5 Mg/3 Ml Inh INHALATION Q12HR PRN Shortness Of Breath Amlodipine Besylate 10 mg 12/02/24 09:00 12/10/24 09:43 Amlodipine Besylate 10 Mg Tablet PO 10 mg DAILY SOURAV Administration Dextrose 12.5 gm 11/06/24 07:40 11/21/24 16:58 Dextrose 50% 25 Gm/50 Ml Syringe IV PUSH 12.5 gm PRN PRN Administration Hypoglycemia Protocol Enoxaparin Sodium 30 mg 11/29/24 09:00 12/10/24 09:48 Enoxaparin 30 Mg/0.3 Ml Syringe SUB-Q 30 mg DAILY SOURAV Administration Folic Acid 1 mg 12/08/24 09:00 12/10/24 09:51 Folic Acid 1 Mg/0.2 Ml Inj IV PUSH 1 mg QAM SOURAV Administration Furosemide 20 mg 11/28/24 17:00 12/10/24 09:48 Furosemide Inj 40 Mg/4 Ml Vial IV PUSH 20 mg BID SOURAV Administration Glucagon 1 mg 11/06/24 07:40 Glucagon For Inj 1 Mg Vial IM PRN PRN Hypoglycemia Protocol Glucose 15 gm 11/06/24 07:40 Glucose Oral Gel 15 Gm Of Glucse In 37.5 Gm Tube PO PRN PRN Hypoglycemia Protocol Hydrochlorothiazide 25 mg 12/03/24 09:00 12/10/24 09:43 Hydrochlorothiazide 25 Mg Tablet PO 25 mg QAM SOURAV Administration Hydromorphone HCl 1 mg 12/06/24 01:25 12/08/24 21:23 Hydromorphone Hcl Inj (*Crx) 1 Mg/Ml Syr IV PUSH 1 mg Q3H PRN Administration Breakthrough Pain Dextrose 1,000 mls @ 100 mls/hr 11/06/24 07:40 Dextrose 5% 1,000 Ml IVPB PRN PRN Hypoglycemia Protocol Meropenem 500 mg in 100 mls @ 200 mls/hr 12/04/24 18:00 12/10/24 06:13 IVPB Infused Q12H SUORAV Infusion Insulin Aspart 2 - 5 units 11/18/24 08:00 12/10/24 12:26 Insulin Aspart (*Bkc) 100 Units/Ml SUB-Q Not Given TIDWM SOURAV Protocol Loperamide HCl 2 mg 12/01/24 10:59 12/01/24 15:17 Loperamide Hcl 2 Mg Capsule PO 2 mg PRN PRN Administration Diarrhea Mirtazapine 15 mg 11/30/24 21:00 12/09/24 22:33 Mirtazapine 15 Mg Tablet PO 15 mg HS SOURAV Administration Naloxone HCl 0.1 mg 12/08/24 16:21 Naloxone Hcl 0.4 Mg/Ml Vial IV PUSH Q2M PRN Opiate Reversal Ondansetron HCl 4 mg 12/08/24 16:21 Ondansetron Inj 4 Mg/2 Ml Vial IV PUSH Q4H PRN Nausea And Vomiting Pantoprazole Sodium 40 mg 12/08/24 21:00 12/10/24 09:50 Pantoprazole Sodium Iv 40 Mg Vial IV PUSH 40 mg Q12HR SOURAV Administration Phenyleph/Shark Oil/[place] Butter 1 supp 11/19/24 18:18 11/19/24 18:33 Phenylephrine Hcl/[place] Butter Supp.Rect (*Bkc) RECTAL 1 supp Q12HR PRN Administration Hemorrhoids Potassium Chloride 20 meq 12/06/24 09:00 12/10/24 09:44 Potassium Chloride 20 Meq Packet (For Liquid) PO 20 meq DAILY SOURAV Administration Psyllium Hydrophilic Mucilloid 1 packet 11/29/24 09:00 12/10/24 09:44 Psyllium Powder Packet PO 1 packet QAM SOURAV Administration Thiamine HCl 100 mg 12/08/24 09:00 12/10/24 09:49 Thiamine Hcl 200 Mg/2 Ml Vial IV PUSH 100 mg QAM SOURAV Administration Tramadol HCl 50 mg 12/06/24 01:23 12/09/24 22:33 Tramadol Hcl (*Crx) 50 Mg Tablet PO 50 mg Q6H PRN Administration Pain Rated 4-6 Radiology Results: ITS Impressions Head CT 11/05/24 20:50 IMPRESSION: 1. Moderate nonspecific cerebral white matter disease, which likely represents chronic small vessel ischemic disease. 2. 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 Upper GI Series 11/08/24 12:17 IMPRESSION: 1. Slow gastric emptying likely related to postoperative ileus. No extraluminal leakage of contrast. Abdomen X-Ray 11/14/24 11:13 IMPRESSION: Nonspecific, nonobstructive bowel gas pattern. Supportive devices unchanged in position. Bilateral pleural effusions. If clinical suspicion persists, CT examination of the abdomen and pelvis (with intravenous contrast) is suggested for further evaluation. Renal Ultrasound 11/19/24 16:17 IMPRESSION: No hydronephrosis or renal calculi. Findings suggesting medical renal disease. Free fluid within the pelvis. Venous Doppler Study 11/22/24 10:28 IMPRESSION: 1. No deep venous thrombosis in either lower limb. Renal Scan Nuclear Medicine 11/23/24 14:21 IMPRESSION: 1. Symmetric kidney function. 2. Delayed activity clearance from both kidneys with continually rising activity curves extending over the 30 minutes of observation and without associated hydronephrosis consistent with nonspecific, nonobstructive nephropathy. Modified Barium Swallow 11/26/24 10:39 IMPRESSION: 1. Trace laryngeal penetration. 2. Please refer to the speech therapy report for recommendations. Chest/Abdomen/Pelvis CT 12/02/24 14:47 IMPRESSION: Redemonstration of subcapsular fluid collections within both the liver and spleen (as detailed above) for which abscess formation is suspected. Both collections are amenable to percutaneous drainage. Bilateral large pleural effusions, with adjacent consolidation, decreased from prior. Catheter Placement CT 12/05/24 15:17 IMPRESSION: 1. Successful CT-guided subcapsular liver abscess drainage. 2. 2 mL opaque, moore fluid was sent for aerobic and anaerobic cultures. 3. Moderate-sized pleural effusions. 4. Moderate volume of ascites. Consider peritoneal drain placement. Chest X-Ray 12/08/24 12:28 IMPRESSION: 1. Stable airspace opacities at the lung bases, consistent with atelectasis versus pneumonia. 2. Stable small pleural effusions. 3. Emphysema. Labs Labs: Laboratory Tests 12/10/24 07:01 12/10/24 07:01 Calcium 8.8 Phosphorus 3.9 Total Bilirubin 0.5 AST 31 ALT 13 Alkaline Phosphatase 141 H Total Protein 7.0 Albumin 3.2 L Microbiology 12/05/24 14:55 Abscess Anaerobic Culture - Preliminary 12/05/24 14:55 Abscess Aerobic Culture - Final 12/05/24 14:55 Abscess Anaerobic Culture - Preliminary 12/05/24 14:55 Abscess Aerobic Culture - Final
[2024-12-10 12:15] LABS: Glucose Point of Care 109 mg/dl (65-105)
[2024-12-10 14:00] VITALS: BP 130/79; PULSE 87; RESP 20; TEMP 36.8; O2SAT 92
--- NOTE | 2024-12-10 14:32 | PM.PNGS ---
Progress Note: A&P Assessment and Plan (1) Abdominal pain: Qualifiers: Abdominal location: unspecified location Qualified Code(s): R10.9 - Unspecified abdominal pain Code(s): R10.9 - Unspecified abdominal pain Status: Acute Assessment and Plan: Liver abscess and splenic abscess have been drained. Minimal to no drain output over the weekend. CT scan of the abdomen and pelvis ordered today to re-evaluate if the abscesses have been adequately drained. Patient is refusing to have the CT scan. There has been recent discussions around Hospice but no definitive decision yet. We can follow along and have another discussion tomorrow to see if he will agree to the repeat CT scan, but I will discuss this with Dr. Bello as well. He is currently on IV Meropenem, day 7. Abscess cultures with no growth of any organisms on preliminary, final cultures pending. (2) Perforated viscus: Code(s): R19.8 - Other specified symptoms and signs involving the digestive system and abdomen Status: Acute Assessment and Plan: Doing well after surgical repair perforated duodenal ulcer. Subjective Subjective Date/Time Seen: 12/10/24 14:32 Patient reports: afebrile Interval history: Chart reviewed since last seen. His WBC count is stable between 17-18 over the past few days. He is afebrile. He is still confused at times but is able to answer questions appropriately. Per staff, the patient has been agitated and combative at times this morning. He is refusing care. He is currently refusing to get the CT scan we have ordered to re-evaluate his abscesses. He states he will not get that test because he is going to the ID instead tomorrow. Nursing is unaware of any specific dates planned for transfer to the ID, but there was discussion last week with patient regarding possible Hospice either via transfer to the ID or home with Hospice. Despite my encouragement to get the CT scan and explaining in detail the reason for the scan, he continued to be agitated and refuse the CT. No output recorded from the perc drains for days. Exam Const: General: comfortable and no acute distress Orientation/consciousness: oriented to person and oriented to place GI: Inspection: distended and incision (midline incision well healed) GI Palp: Yes Soft to palpation, No Tenderness to palpation present (GI) and No Guarding due to palpation present (GI) Auscultation: normal bowel sounds Other: Right sided perc drain with scant yellow/moore drainage Left sided perc drain with scant yellow drainage Objective Data Vital Signs Vital Signs: Vital Signs - 24 hr 12/09/24 20:00 12/09/24 21:11 12/10/24 05:37 Temperature 97.4 F L 97.7 F Pulse Rate 79 79 67 Respiratory Rate 16 16 14 Blood Pressure 131/90 125/67 Pulse Oximetry 99 99 94 Oxygen Delivery Nasal Cannula Oxygen Flow Rate 1 Fraction of Inspired Oxygen 12/10/24 09:41 Temperature Pulse Rate Respiratory Rate Blood Pressure Pulse Oximetry 94 Oxygen Delivery Room Air Oxygen Flow Rate Fraction of Inspired Oxygen Intake/Output Intake/Output: Intake & Output 12/07/24 12/08/24 12/09/24 12/10/24 23:59 23:59 23:59 23:59 Intake Total 880 395 865 520 Output Total 550 1050 1200 200 Balance 929 -452 -683 320 Meds/Results Medications: Active Medications Generic Name Dose Route Start Last Admin Trade Name Freq PRN Reason Stop Dose Admin Acetaminophen 650 mg 11/14/24 15:21 12/07/24 18:02 Acetaminophen Elixir 325 Mg/10.15 Ml Udc FEED TUBE 650 mg Q4H PRN Administration Headache, Fever, Mild Pain Acetaminophen 650 mg 12/08/24 16:13 Acetaminophen 650 Mg Suppository RECTAL Q4H PRN Mild Pain (1-3) or Fever Albuterol 2.5 mg 12/08/24 16:23 Albuterol Sulfate Neb 2.5 Mg/3 Ml Inh INHALATION Q12HR PRN Shortness Of Breath Amlodipine Besylate 10 mg 12/02/24 09:00 12/10/24 09:43 Amlodipine Besylate 10 Mg Tablet PO 10 mg DAILY SOURAV Administration Dextrose 12.5 gm 11/06/24 07:40 11/21/24 16:58 Dextrose 50% 25 Gm/50 Ml Syringe IV PUSH 12.5 gm PRN PRN Administration Hypoglycemia Protocol Enoxaparin Sodium 30 mg 11/29/24 09:00 12/10/24 09:48 Enoxaparin 30 Mg/0.3 Ml Syringe SUB-Q 30 mg DAILY SOURAV Administration Folic Acid 1 mg 12/08/24 09:00 12/10/24 09:51 Folic Acid 1 Mg/0.2 Ml Inj IV PUSH 1 mg QAM SOURAV Administration Furosemide 20 mg 11/28/24 17:00 12/10/24 09:48 Furosemide Inj 40 Mg/4 Ml Vial IV PUSH 20 mg BID SOURAV Administration Glucagon 1 mg 11/06/24 07:40 Glucagon For Inj 1 Mg Vial IM PRN PRN Hypoglycemia Protocol Glucose 15 gm 11/06/24 07:40 Glucose Oral Gel 15 Gm Of Glucse In 37.5 Gm Tube PO PRN PRN Hypoglycemia Protocol Hydrochlorothiazide 25 mg 12/03/24 09:00 12/10/24 09:43 Hydrochlorothiazide 25 Mg Tablet PO 25 mg QAM SOURAV Administration Hydromorphone HCl 1 mg 12/06/24 01:25 12/08/24 21:23 Hydromorphone Hcl Inj (*Crx) 1 Mg/Ml Syr IV PUSH 1 mg Q3H PRN Administration Breakthrough Pain Dextrose 1,000 mls @ 100 mls/hr 11/06/24 07:40 Dextrose 5% 1,000 Ml IVPB PRN PRN Hypoglycemia Protocol Meropenem 500 mg in 100 mls @ 200 mls/hr 12/04/24 18:00 12/10/24 06:13 IVPB Infused Q12H SOURAV Infusion Insulin Aspart 2 - 5 units 11/18/24 08:00 12/10/24 12:26 Insulin Aspart (*Bkc) 100 Units/Ml SUB-Q Not Given TIDWM [facility] Protocol Loperamide HCl 2 mg 12/01/24 10:59 12/01/24 15:17 Loperamide Hcl 2 Mg Capsule PO 2 mg PRN PRN Administration Diarrhea Mirtazapine 15 mg 11/30/24 21:00 12/09/24 22:33 Mirtazapine 15 Mg Tablet PO 15 mg HS SOURAV Administration Naloxone HCl 0.1 mg 12/08/24 16:21 Naloxone Hcl 0.4 Mg/Ml Vial IV PUSH Q2M PRN Opiate Reversal Ondansetron HCl 4 mg 12/08/24 16:21 Ondansetron Inj 4 Mg/2 Ml Vial IV PUSH Q4H PRN Nausea And Vomiting Pantoprazole Sodium 40 mg 12/08/24 21:00 12/10/24 09:50 Pantoprazole Sodium Iv 40 Mg Vial IV PUSH 40 mg Q12HR SOURAV Administration Phenyleph/Shark Oil/[place] Butter 1 supp 11/19/24 18:18 11/19/24 18:33 Phenylephrine Hcl/[place] Butter Supp.Rect (*Bkc) RECTAL 1 supp Q12HR PRN Administration Hemorrhoids Potassium Chloride 20 meq 12/06/24 09:00 12/10/24 09:44 Potassium Chloride 20 Meq Packet (For Liquid) PO 20 meq DAILY SOURAV Administration Psyllium Hydrophilic Mucilloid 1 packet 11/29/24 09:00 12/10/24 09:44 Psyllium Powder Packet PO 1 packet QAM SOURAV Administration Thiamine HCl 100 mg 12/08/24 09:00 12/10/24 09:49 Thiamine Hcl 200 Mg/2 Ml Vial IV PUSH 100 mg QAM SOURAV Administration Tramadol HCl 50 mg 12/06/24 01:23 12/09/24 22:33 Tramadol Hcl (*Crx) 50 Mg Tablet PO 50 mg Q6H PRN Administration Pain Rated 4-6 Radiology Results: ITS Impressions Head CT 11/05/24 20:50 IMPRESSION: 1. Moderate nonspecific cerebral white matter disease, which likely represents chronic small vessel ischemic disease. 2. 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 Upper GI Series 11/08/24 12:17 IMPRESSION: 1. Slow gastric emptying likely related to postoperative ileus. No extraluminal leakage of contrast. Abdomen X-Ray 11/14/24 11:13 IMPRESSION: Nonspecific, nonobstructive bowel gas pattern. Supportive devices unchanged in position. Bilateral pleural effusions. If clinical suspicion persists, CT examination of the abdomen and pelvis (with intravenous contrast) is suggested for further evaluation. Renal Ultrasound 11/19/24 16:17 IMPRESSION: No hydronephrosis or renal calculi. Findings suggesting medical renal disease. Free fluid within the pelvis. Abdomen/Pelvis CT 11/20/24 14:44 IMPRESSION: Large bilateral pleural effusions, with bilateral lower lobe atelectasis. Infection in the lower lobes is not excluded. Single loop of dilated jejunum, likely representing localized ileus. Early/partial obstruction could appear similarly. Colonic wall thickening, as can be seen with colitis. Moderate ascites. Diffuse edema of the subcutaneous fat and mesenteric fat. Venous Doppler Study 11/22/24 10:28 IMPRESSION: 1. No deep venous thrombosis in either lower limb. Renal Scan Nuclear Medicine 11/23/24 14:21 IMPRESSION: 1. Symmetric kidney function. 2. Delayed activity clearance from both kidneys with continually rising activity curves extending over the 30 minutes of observation and without associated hydronephrosis consistent with nonspecific, nonobstructive nephropathy. Modified Barium Swallow 11/26/24 10:39 IMPRESSION: 1. Trace laryngeal penetration. 2. Please refer to the speech therapy report for recommendations. Chest/Abdomen/Pelvis CT 12/02/24 14:47 IMPRESSION: Redemonstration of subcapsular fluid collections within both the liver and spleen (as detailed above) for which abscess formation is suspected. Both collections are amenable to percutaneous drainage. Bilateral large pleural effusions, with adjacent consolidation, decreased from prior. Catheter Placement CT 12/05/24 15:17 IMPRESSION: 1. Successful CT-guided subcapsular liver abscess drainage. 2. 2 mL opaque, moore fluid was sent for aerobic and anaerobic cultures. 3. Moderate-sized pleural effusions. 4. Moderate volume of ascites. Consider peritoneal drain placement. Chest X-Ray 12/08/24 12:28 IMPRESSION: 1. Stable airspace opacities at the lung bases, consistent with atelectasis versus pneumonia. 2. Stable small pleural effusions. 3. Emphysema. Labs Labs: Laboratory Results - last 24 hr 12/09/24 12/09/24 12/10/24 16:58 21:06 07:01 WBC 18.0 H RBC 3.03 L Hgb 8.5 L Hct 26.9 L MCV 88.8 MCH 28.1 MCHC 31.6 L RDW 14.2 Plt Count 594 H MPV 9.6 Sodium 138 Potassium Chloride Carbon Dioxide Anion Gap BUN Creatinine Estim Creat Clear Calc Estimated GFR Glucose POC Capillary Glucose 147 H 102 Calcium Phosphorus Total Bilirubin AST ALT Alkaline Phosphatase Total Protein Albumin 12/10/24 12/10/24 12/10/24 07:01 07:01 07:01 WBC RBC Hgb Hct MCV MCH MCHC RDW Plt Count MPV Sodium 138 Potassium 3.7 3.7 Chloride 94 L 94 L Carbon Dioxide 37 H Anion Gap BUN Creatinine Estim Creat Clear Calc Estimated GFR Glucose POC Capillary Glucose Calcium Phosphorus Total Bilirubin AST ALT Alkaline Phosphatase Total Protein Albumin 12/10/24 12/10/24 12/10/24 07:01 07:01 07:01 WBC RBC Hgb Hct MCV MCH MCHC RDW Plt Count MPV Sodium Potassium Chloride Carbon Dioxide 37 H Anion Gap 7 7 BUN 41 H 41 H Creatinine 1.61 H Estim Creat Clear Calc Estimated GFR Glucose POC Capillary Glucose Calcium Phosphorus Total Bilirubin AST ALT Alkaline Phosphatase Total Protein Albumin 12/10/24 12/10/24 12/10/24 07:01 07:01 07:01 WBC RBC Hgb Hct MCV MCH MCHC RDW Plt Count MPV Sodium Potassium Chloride Carbon Dioxide Anion Gap BUN Creatinine 1.69 H Estim Creat Clear Calc 22 21 Estimated GFR 43 L 40 L Glucose 94 POC Capillary Glucose Calcium Phosphorus Total Bilirubin AST ALT Alkaline Phosphatase Total Protein Albumin 12/10/24 12/10/24 12/10/24 07:01 07:01 07:01 WBC RBC Hgb Hct MCV MCH MCHC RDW Plt Count MPV Sodium Potassium Chloride Carbon Dioxide Anion Gap BUN Creatinine Estim Creat Clear Calc Estimated GFR Glucose 95 POC Capillary Glucose Calcium 8.7 8.8 Phosphorus 3.9 Total Bilirubin 0.5 AST 31 ALT 13 Alkaline Phosphatase 141 H Total Protein 7.0 Albumin 3.2 L 3.2 L 12/10/24 12/10/24 08:01 12:12 WBC RBC Hgb Hct MCV MCH MCHC RDW Plt Count MPV Sodium Potassium Chloride Carbon Dioxide Anion Gap BUN Creatinine Estim Creat Clear Calc Estimated GFR Glucose POC Capillary Glucose 97 109 H Calcium Phosphorus Total Bilirubin AST ALT Alkaline Phosphatase Total Protein Albumin
--- NOTE | 2024-12-10 15:47 | PM.IMPN ---
Progress Note: A&P Assessment and Plan (1) Metabolic acidosis: Code(s): E87.20 - Acidosis, unspecified Status: Acute Assessment and Plan: resolved (2) DEBI (acute kidney injury): Code(s): N17.9 - Acute kidney failure, unspecified Status: Acute Assessment and Plan: Creatinine improving Nephrology following (3) Perforated gastric ulcer: Qualifiers: Gastric ulcer chronicity: acute Qualified Code(s): K25.1 - Acute gastric ulcer with perforation Code(s): K25.5 - Chronic or unspecified gastric ulcer with perforation Status: Acute Assessment and Plan: Resolved Continue with Protonix and monitor hgb (4) COPD (chronic obstructive pulmonary disease): Code(s): J44.9 - Chronic obstructive pulmonary disease, unspecified Status: Acute Assessment and Plan: Stable on current medications. Will continue current treatment. (5) Sepsis: Code(s): A41.9 - Sepsis, unspecified organism Status: Acute Assessment and Plan: Completed antibiotics (6) Pneumonia: Code(s): J18.9 - Pneumonia, unspecified organism Status: Acute Assessment and Plan: Completed antibiotics pneumonia resolved Repeat CXR showed pulm edema and Pleural effusion now on lasix (7) Acute hypoxic respiratory failure: Code(s): J96.01 - Acute respiratory failure with hypoxia Status: Acute Assessment and Plan: resolved CXR showed pulm edema and pleural effusion continue Lasix 20mg bid and monitor renal function ECHO from june normal function monitor (8) Sepsis associated hypotension: Code(s): A41.9 - Sepsis, unspecified organism; I95.9 - Hypotension, unspecified Status: Acute Assessment and Plan: completed antibiotics (9) EtOH dependence: Code(s): F10.20 - Alcohol dependence, uncomplicated Status: Acute Assessment and Plan: Counselling given (10) Failure to thrive: Status: Acute Plan Consulted Hospice Perforated Gastric ulcer Patient underwent surgery on 11/05. Patient condition has been declining after the perforated gastric ulcer. Recently he was placed perc drain due to spleen and liver abscess. Failure to thrive Patient has multiple co-morbid condition including COPD,alcohol abuse, perforated ulcer, liver abscess,and recent surgical stress. Patient is unable to eat due to current events, multiple co-morbid conditions and prolonged hospitalization. Patient currently wants to go hospice and lives his rest of his with quality. Discussed with his brother who is POA. Diarrhea Resolved Stool culture and c diff negative Likely from pureed diet started on PRN imodium leukocytosis Worsening despite no evidence of infection WBC continues to rise. Surgery re-evaluated the re-demonstration of subcapsular fluid collections within both the liver and spleen for which abscess formation is suspected.. Underwent perc drain on 12/05 Repeat blood culture pending. CXR done several days ago showed pulm edema and patient has responded to lasix and off oxygen Lactic acid normal Repeated blood culture Code status DNR DVT prophylaxis on Sq Lovenox PT/OT following Awaiting placement to [facility] Subjective Date/time seen: 12/10/24 15:47 Interval history: Had discussion with his brother and sister. Answered all their questions. For now the final decision is patient will be consulted for hospice with the [facility]. Review of Systems Review of Systems: Pt with a dry throat not talking loudly ROS unobtainable: Yes unobtainable due to endotracheal tube, unobtainable due to medical condition and unobtainable due to mental status Exam Narrative: General: More alert toady Lungs/Chest: Trachea central Coarse BS B/L, No crackles or wheezing. Cardiac: RRR. Normal S1 S2. No murmurs Abdomen: Decreased but present bowel sounds. Extremities: No clubbing, cyanosis or edema. Warm : Shen in place Neurologic: Patient is able to move all 4 extremities spontaneously. Objective Data Vital Signs Vital Signs: Vital Signs - 24 hr 12/09/24 20:00 12/09/24 21:11 12/10/24 05:37 Temperature 97.4 F L 97.7 F Pulse Rate 79 79 67 Respiratory Rate 16 16 14 Blood Pressure 131/90 125/67 Pulse Oximetry 99 99 94 Oxygen Delivery Nasal Cannula Oxygen Flow Rate 1 Fraction of Inspired Oxygen 24 12/10/24 09:41 Temperature Pulse Rate Respiratory Rate Blood Pressure Pulse Oximetry 94 Oxygen Delivery Room Air Oxygen Flow Rate Fraction of Inspired Oxygen Intake/Output Intake/Output: Intake & Output 12/07/24 12/08/24 12/09/24 12/10/24 23:59 23:59 23:59 23:59 Intake Total 880 395 865 520 Output Total 550 1050 1200 200 Balance 285 -915 -258 320 Meds/Results Medications: Active Medications Generic Name Dose Route Start Last Admin Trade Name Freq PRN Reason Stop Dose Admin Acetaminophen 650 mg 11/14/24 15:21 12/07/24 18:02 Acetaminophen Elixir 325 Mg/10.15 Ml Udc FEED TUBE 650 mg Q4H PRN Administration Headache, Fever, Mild Pain Acetaminophen 650 mg 12/08/24 16:13 Acetaminophen 650 Mg Suppository RECTAL Q4H PRN Mild Pain (1-3) or Fever Albuterol 2.5 mg 12/08/24 16:23 Albuterol Sulfate Neb 2.5 Mg/3 Ml Inh INHALATION Q12HR PRN Shortness Of Breath Amlodipine Besylate 10 mg 12/02/24 09:00 12/10/24 09:43 Amlodipine Besylate 10 Mg Tablet PO 10 mg DAILY SOURAV Administration Dextrose 12.5 gm 11/06/24 07:40 11/21/24 16:58 Dextrose 50% 25 Gm/50 Ml Syringe IV PUSH 12.5 gm PRN PRN Administration Hypoglycemia Protocol Enoxaparin Sodium 30 mg 11/29/24 09:00 12/10/24 09:48 Enoxaparin 30 Mg/0.3 Ml Syringe SUB-Q 30 mg DAILY SOURAV Administration Folic Acid 1 mg 12/08/24 09:00 12/10/24 09:51 Folic Acid 1 Mg/0.2 Ml Inj IV PUSH 1 mg QAM SOURAV Administration Furosemide 20 mg 11/28/24 17:00 12/10/24 09:48 Furosemide Inj 40 Mg/4 Ml Vial IV PUSH 20 mg BID SOURAV Administration Glucagon 1 mg 11/06/24 07:40 Glucagon For Inj 1 Mg Vial IM PRN PRN Hypoglycemia Protocol Glucose 15 gm 11/06/24 07:40 Glucose Oral Gel 15 Gm Of Glucse In 37.5 Gm Tube PO PRN PRN Hypoglycemia Protocol Hydrochlorothiazide 25 mg 12/03/24 09:00 12/10/24 09:43 Hydrochlorothiazide 25 Mg Tablet PO 25 mg QAM SOURAV Administration Hydromorphone HCl 1 mg 12/06/24 01:25 12/08/24 21:23 Hydromorphone Hcl Inj (*Crx) 1 Mg/Ml Syr IV PUSH 1 mg Q3H PRN Administration Breakthrough Pain Dextrose 1,000 mls @ 100 mls/hr 11/06/24 07:40 Dextrose 5% 1,000 Ml IVPB PRN PRN Hypoglycemia Protocol Meropenem 500 mg in 100 mls @ 200 mls/hr 12/04/24 18:00 12/10/24 06:13 IVPB Infused Q12H SOURAV Infusion Insulin Aspart 2 - 5 units 11/18/24 08:00 12/10/24 12:26 Insulin Aspart (*Bkc) 100 Units/Ml SUB-Q Not Given [facility] Protocol Loperamide HCl 2 mg 12/01/24 10:59 12/01/24 15:17 Loperamide Hcl 2 Mg Capsule PO 2 mg PRN PRN Administration Diarrhea Mirtazapine 15 mg 11/30/24 21:00 12/09/24 22:33 Mirtazapine 15 Mg Tablet PO 15 mg HS SOURAV Administration Naloxone HCl 0.1 mg 12/08/24 16:21 Naloxone Hcl 0.4 Mg/Ml Vial IV PUSH Q2M PRN Opiate Reversal Ondansetron HCl 4 mg 12/08/24 16:21 Ondansetron Inj 4 Mg/2 Ml Vial IV PUSH Q4H PRN Nausea And Vomiting Pantoprazole Sodium 40 mg 12/08/24 21:00 12/10/24 09:50 Pantoprazole Sodium Iv 40 Mg Vial IV PUSH 40 mg Q12HR SOURAV Administration Phenyleph/Shark Oil/Morning Sun Butter 1 supp 11/19/24 18:18 11/19/24 18:33 Phenylephrine Hcl/Morning Sun Butter Supp.Rect (*Bkc) RECTAL 1 supp Q12HR PRN Administration Hemorrhoids Potassium Chloride 20 meq 12/06/24 09:00 12/10/24 09:44 Potassium Chloride 20 Meq Packet (For Liquid) PO 20 meq DAILY SOURAV Administration Psyllium Hydrophilic Mucilloid 1 packet 11/29/24 09:00 12/10/24 09:44 Psyllium Powder Packet PO 1 packet QAM SOURAV Administration Thiamine HCl 100 mg 12/08/24 09:00 12/10/24 09:49 Thiamine Hcl 200 Mg/2 Ml Vial IV PUSH 100 mg QAM SOURAV Administration Tramadol HCl 50 mg 12/06/24 01:23 12/09/24 22:33 Tramadol Hcl (*Crx) 50 Mg Tablet PO 50 mg Q6H PRN Administration Pain Rated 4-6 Radiology Results: ITS Impressions Head CT 11/05/24 20:50 IMPRESSION: 1. Moderate nonspecific cerebral white matter disease, which likely represents chronic small vessel ischemic disease. 2. 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 Upper GI Series 11/08/24 12:17 IMPRESSION: 1. Slow gastric emptying likely related to postoperative ileus. No extraluminal leakage of contrast. Abdomen X-Ray 11/14/24 11:13 IMPRESSION: Nonspecific, nonobstructive bowel gas pattern. Supportive devices unchanged in position. Bilateral pleural effusions. If clinical suspicion persists, CT examination of the abdomen and pelvis (with intravenous contrast) is suggested for further evaluation. Renal Ultrasound 11/19/24 16:17 IMPRESSION: No hydronephrosis or renal calculi. Findings suggesting medical renal disease. Free fluid within the pelvis. Venous Doppler Study 11/22/24 10:28 IMPRESSION: 1. No deep venous thrombosis in either lower limb. Renal Scan Nuclear Medicine 11/23/24 14:21 IMPRESSION: 1. Symmetric kidney function. 2. Delayed activity clearance from both kidneys with continually rising activity curves extending over the 30 minutes of observation and without associated hydronephrosis consistent with nonspecific, nonobstructive nephropathy. Modified Barium Swallow 11/26/24 10:39 IMPRESSION: 1. Trace laryngeal penetration. 2. Please refer to the speech therapy report for recommendations. Chest/Abdomen/Pelvis CT 12/02/24 14:47 IMPRESSION: Redemonstration of subcapsular fluid collections within both the liver and spleen (as detailed above) for which abscess formation is suspected. Both collections are amenable to percutaneous drainage. Bilateral large pleural effusions, with adjacent consolidation, decreased from prior. Catheter Placement CT 12/05/24 15:17 IMPRESSION: 1. Successful CT-guided subcapsular liver abscess drainage. 2. 2 mL opaque, moore fluid was sent for aerobic and anaerobic cultures. 3. Moderate-sized pleural effusions. 4. Moderate volume of ascites. Consider peritoneal drain placement. Chest X-Ray 12/08/24 12:28 IMPRESSION: 1. Stable airspace opacities at the lung bases, consistent with atelectasis versus pneumonia. 2. Stable small pleural effusions. 3. Emphysema. Abdomen/Pelvis CT 12/10/24 15:20 IMPRESSION: 1. Percutaneous abscess drains within a subcapsular fluid collections at the spleen and liver, both of which approximately half the volume of the prior study. 2. Persistent anasarca with extensive soft tissue edema and 3. Decrease in size of small bilateral pleural effusions. 4. Tree-in-bud opacities in the bilateral lower lobes consistent with pneumonia. Moderate amount of ascites throughout the abdomen and pelvis. Labs Labs: Laboratory Results - last 24 hr 12/09/24 12/09/24 12/10/24 16:58 21:06 07:01 WBC 18.0 H RBC 3.03 L Hgb 8.5 L Hct 26.9 L MCV 88.8 MCH 28.1 MCHC 31.6 L RDW 14.2 Plt Count 594 H MPV 9.6 Sodium 138 Potassium Chloride Carbon Dioxide Anion Gap BUN Creatinine Estim Creat Clear Calc Estimated GFR Glucose POC Capillary Glucose 147 H 102 Calcium Phosphorus Total Bilirubin AST ALT Alkaline Phosphatase Total Protein Albumin 12/10/24 12/10/24 12/10/24 07:01 07:01 07:01 WBC RBC Hgb Hct MCV MCH MCHC RDW Plt Count MPV Sodium 138 Potassium 3.7 3.7 Chloride 94 L 94 L Carbon Dioxide 37 H Anion Gap BUN Creatinine Estim Creat Clear Calc Estimated GFR Glucose POC Capillary Glucose Calcium Phosphorus Total Bilirubin AST ALT Alkaline Phosphatase Total Protein Albumin 12/10/24 12/10/24 12/10/24 07:01 07:01 07:01 WBC RBC Hgb Hct MCV MCH MCHC RDW Plt Count MPV Sodium Potassium Chloride Carbon Dioxide 37 H Anion Gap 7 7 BUN 41 H 41 H Creatinine 1.61 H Estim Creat Clear Calc Estimated GFR Glucose POC Capillary Glucose Calcium Phosphorus Total Bilirubin AST ALT Alkaline Phosphatase Total Protein Albumin 12/10/24 12/10/24 12/10/24 07:01 07:01 07:01 WBC RBC Hgb Hct MCV MCH MCHC RDW Plt Count MPV Sodium Potassium Chloride Carbon Dioxide Anion Gap BUN Creatinine 1.69 H Estim Creat Clear Calc 22 21 Estimated GFR 43 L 40 L Glucose 94 POC Capillary Glucose Calcium Phosphorus Total Bilirubin AST ALT Alkaline Phosphatase Total Protein Albumin 12/10/24 12/10/24 12/10/24 07:01 07:01 07:01 WBC RBC Hgb Hct MCV MCH MCHC RDW Plt Count MPV Sodium Potassium Chloride Carbon Dioxide Anion Gap BUN Creatinine Estim Creat Clear Calc Estimated GFR Glucose 95 POC Capillary Glucose Calcium 8.7 8.8 Phosphorus 3.9 Total Bilirubin 0.5 AST 31 ALT 13 Alkaline Phosphatase 141 H Total Protein 7.0 Albumin 3.2 L 3.2 L 12/10/24 12/10/24 08:01 12:12 WBC RBC Hgb Hct MCV MCH MCHC RDW Plt Count MPV Sodium Potassium Chloride Carbon Dioxide Anion Gap BUN Creatinine Estim Creat Clear Calc Estimated GFR Glucose POC Capillary Glucose 97 109 H Calcium Phosphorus Total Bilirubin AST ALT Alkaline Phosphatase Total Protein Albumin Quality VTE Prophylaxis VTE prophylaxis: mechanical ordered and pharmacologic ordered Hospitalist MIPS Advance Care Plan I have confirmed that the patient's Advanced Care Plan is present, code status is documented, or surrogate decision maker is listed in patient medical record.: Yes Medication Reconciliation I have utilized all available resources to obtain, update and review the patients current medications (includes all prescriptions, OTC, herbals, cannabis, and nutritional supplements).: Yes
[2024-12-10 17:09] LABS: Glucose Point of Care 127 mg/dl (65-105)
[2024-12-10 20:35] LABS: Glucose Point of Care 119 mg/dl (65-105)
[2024-12-10 21:18] VITALS: BP 120/90; PULSE 74; RESP 14; TEMP 37.2; O2SAT 95
[2024-12-10] MEDS: traMADol HCL (*CRX) 50 MG TABLET PO (21:46)
[2024-12-10] MEDS: MIRTAZAPINE 15 MG TABLET PO (21:47)
[2024-12-11 05:22] VITALS: BP 122/84; PULSE 82; RESP 14; TEMP 36.9; O2SAT 100
[2024-12-11] MEDS: MEROPENEM 500 MG/NS 100 ML 500 MG/100 ML BAG 200 MG IVPB ×2 (05:53→17:20)
[2024-12-11 08:31] LABS: Glucose Point of Care 98 mg/dl (65-105)
[2024-12-11] MEDS: FUROSEMIDE INJ 40 MG/4 ML VIAL 20 MG IV PUSH ×2 (09:12→17:14)
[2024-12-11] MEDS: PANTOPRAZOLE SODIUM IV 40 MG VIAL IV PUSH ×2 (09:16→20:16)
[2024-12-11] MEDS: THIAMINE HCL 200 MG/2 ML VIAL 100 MG IV PUSH (09:16)
[2024-12-11] MEDS: hydroCHLOROthiazide 25 MG TABLET PO (09:17)
[2024-12-11] MEDS: FOLIC ACID 1 MG/0.2 ML INJ IV PUSH (09:17)
[2024-12-11] MEDS: amLODIPine BESYLATE 10 MG TABLET PO (09:17)
[2024-12-11] MEDS: POTASSIUM CHLORIDE 20 MEQ PACKET (FOR LIQUID) PO (09:17)
[2024-12-11] MEDS: ENOXAPARIN 30 MG/0.3 ML SYRINGE SUB-Q (09:17)
[2024-12-11] MEDS: PSYLLIUM POWDER PACKET 1 PACKET PO (09:17)
[2024-12-11 12:16] LABS: Glucose Point of Care 145 mg/dl (65-105)
[2024-12-11 13:00] VITALS: BP 120/78; PULSE 80; RESP 20; TEMP 36.8; O2SAT 100
[2024-12-11 13:13] LABS: Basophils Absolute Auto 0.1 K/mm3 (0.0-0.1); Basophils Percent Auto 0.6 % (0.2-1.2); Eosinophils Percent Auto 0.2 % (0-4.4); Hematocrit 28.7 % (42.0-52.0); Immature Granulocyte Absolute 0.11 K/mm3 (0.00-0.031); Immature Granulocyte Percent A 0.8 % (0-0.5); Lymphocytes Absolute Auto 1.39 K/mm3 (0.9-3.2); Lymphocytes Percent Auto 9.9 % (18.3-44.2); Mean Corpuscular HGB Conc 31.4 g/dl (32-36); Mean Corpuscular Hemoglobin 27.6 pg (26-34); Mean Platelet Volume 9.8 fl (7.4-10.4); Monocytes Absolute Auto 0.8 K/mm3 (0.1-0.6); Monocytes Percent Auto 5.5 % (2.6-8.5); Neutrophils Absolute Auto 11.7 K/mm3 (1.3-6.7); Platelet Count Result 688 k/mm3 (150-375); Red Blood Count 3.26 M/mm3 (4.6-6.20); Red Cell Distribution Width 14.3 % (11.5-14.5); White Blood Count 14.1 K/mm3 (4.5-10.0)
[2024-12-11 13:23] LABS: Alanine Aminotransferase 14 U/L (6-50); Albumin Level 3.3 g/dL (3.5-5.1); Alkaline Phosphatase 139 U/L (38-126); Anion Gap 7 mmol/L (4-12); Aspartate Amino Transferase 31 U/L (17-59); Bilirubin,Total 0.5 mg/dL (0.2-1.3); Blood Urea Nitrogen 44 mg/dL (9-20); Calcium 8.5 mg/dL (8.4-10.2); Carbon Dioxide 36 mmol/L (22-30); Chloride 93 mmol/L (98-107); Estimated CRCL calculation 20 ml/min; Estimated Glomerular Filt Rate 40; Glucose 155 mg/dL (65-110); Sodium 136 mmol/L (137-145)
[2024-12-11 14:00] VITALS: BP 120/78; PULSE 80; RESP 20; TEMP 36.8; O2SAT 100
--- NOTE | 2024-12-11 15:36 | PM.IMPN ---
Progress Note: A&P Assessment and Plan (1) Metabolic acidosis: Code(s): E87.20 - Acidosis, unspecified Status: Acute Assessment and Plan: resolved (2) DEBI (acute kidney injury): Code(s): N17.9 - Acute kidney failure, unspecified Status: Acute Assessment and Plan: Creatinine seems to have stabilized at 1.7 Nephrology following (3) Perforated gastric ulcer: Qualifiers: Gastric ulcer chronicity: acute Qualified Code(s): K25.1 - Acute gastric ulcer with perforation Code(s): K25.5 - Chronic or unspecified gastric ulcer with perforation Status: Acute Assessment and Plan: Resolved Continue with Protonix and monitor hgb (4) COPD (chronic obstructive pulmonary disease): Code(s): J44.9 - Chronic obstructive pulmonary disease, unspecified Status: Acute Assessment and Plan: Stable on current medications. Will continue current treatment. (5) Sepsis: Code(s): A41.9 - Sepsis, unspecified organism Status: Acute Assessment and Plan: Completed antibiotics (6) Pneumonia: Code(s): J18.9 - Pneumonia, unspecified organism Status: Acute Assessment and Plan: Completed antibiotics pneumonia resolved Repeat CXR showed pulm edema and Pleural effusion now on lasix (7) Acute hypoxic respiratory failure: Code(s): J96.01 - Acute respiratory failure with hypoxia Status: Acute Assessment and Plan: resolved CXR showed pulm edema and pleural effusion continue Lasix 20mg bid and monitor renal function ECHO from june normal function monitor (8) Sepsis associated hypotension: Code(s): A41.9 - Sepsis, unspecified organism; I95.9 - Hypotension, unspecified Status: Acute Assessment and Plan: completed antibiotics (9) EtOH dependence: Code(s): F10.20 - Alcohol dependence, uncomplicated Status: Acute Assessment and Plan: Counselling given (10) Failure to thrive: Status: Acute Plan Consulted Hospice Perforated Gastric ulcer Patient underwent surgery on 11/05. Patient condition has been declining after the perforated gastric ulcer. Recently he was placed perc drain due to spleen and liver abscess. Failure to thrive Patient has multiple co-morbid condition including COPD,alcohol abuse, perforated ulcer, liver abscess,and recent surgical stress. Patient is unable to eat due to current events, multiple co-morbid conditions and prolonged hospitalization. Patient currently wants to go hospice and lives his rest of his with quality. Discussed with his brother who is POA. Diarrhea Resolved Stool culture and c diff negative Likely from pureed diet started on PRN imodium leukocytosis Worsening despite no evidence of infection WBC continues to rise. Surgery re-evaluated the re-demonstration of subcapsular fluid collections within both the liver and spleen for which abscess formation is suspected.. Underwent perc drain on 12/05 Repeat blood culture pending. CXR done several days ago showed pulm edema and patient has responded to lasix and off oxygen Lactic acid normal Repeated blood culture Code status DNR DVT prophylaxis on Sq Lovenox PT/OT following Awaiting placement to [place] hospice Subjective Date/time seen: 12/11/24 15:36 Interval history: patient comfortabel at bedside affirmed he is electing for hospice awaiting transfer to [facility] Review of Systems Review of Systems: Pt with a dry throat not talking loudly ROS unobtainable: Yes unobtainable due to endotracheal tube, unobtainable due to medical condition and unobtainable due to mental status Exam Narrative: General: More alert toady Lungs/Chest: Trachea central Coarse BS B/L, No crackles or wheezing. Cardiac: RRR. Normal S1 S2. No murmurs Abdomen: Decreased but present bowel sounds. Extremities: No clubbing, cyanosis or edema. Warm : Shen in place Neurologic: Patient is able to move all 4 extremities spontaneously. Objective Data Vital Signs Vital Signs: Vital Signs - 24 hr 12/10/24 20:00 12/10/24 21:18 12/11/24 05:22 Temperature 99.0 F 98.4 F Pulse Rate 74 82 Respiratory Rate 14 14 Blood Pressure 120/90 122/84 Pulse Oximetry 95 100 Oxygen Delivery Room Air 12/11/24 13:00 12/11/24 14:00 Temperature 98.2 F 98.2 F Pulse Rate 80 80 Respiratory Rate 20 20 Blood Pressure 120/78 120/78 Pulse Oximetry 100 100 Oxygen Delivery Intake/Output Intake/Output: Intake & Output 12/08/24 12/09/24 12/10/24 12/11/24 23:59 23:59 23:59 23:59 Intake Total 929 392 6498 580 Output Total 1050 1200 200 0 Balance -655 -335 1160 580 Meds/Results Medications: Active Medications Generic Name Dose Route Start Last Admin Trade Name Freq PRN Reason Stop Dose Admin Acetaminophen 650 mg 11/14/24 15:21 12/07/24 18:02 Acetaminophen Elixir 325 Mg/10.15 Ml Udc FEED TUBE 650 mg Q4H PRN Administration Headache, Fever, Mild Pain Acetaminophen 650 mg 12/08/24 16:13 Acetaminophen 650 Mg Suppository RECTAL Q4H PRN Mild Pain (1-3) or Fever Albuterol 2.5 mg 12/08/24 16:23 Albuterol Sulfate Neb 2.5 Mg/3 Ml Inh INHALATION Q12HR PRN Shortness Of Breath Amlodipine Besylate 10 mg 12/02/24 09:00 12/11/24 09:17 Amlodipine Besylate 10 Mg Tablet PO 10 mg DAILY SOURAV Administration Dextrose 12.5 gm 11/06/24 07:40 11/21/24 16:58 Dextrose 50% 25 Gm/50 Ml Syringe IV PUSH 12.5 gm PRN PRN Administration Hypoglycemia Protocol Enoxaparin Sodium 30 mg 11/29/24 09:00 12/11/24 09:17 Enoxaparin 30 Mg/0.3 Ml Syringe SUB-Q 30 mg DAILY SOURAV Administration Folic Acid 1 mg 12/08/24 09:00 12/11/24 09:17 Folic Acid 1 Mg/0.2 Ml Inj IV PUSH 1 mg QAM SOURAV Administration Furosemide 20 mg 11/28/24 17:00 12/11/24 09:12 Furosemide Inj 40 Mg/4 Ml Vial IV PUSH 20 mg BID SOURAV Administration Glucagon 1 mg 11/06/24 07:40 Glucagon For Inj 1 Mg Vial IM PRN PRN Hypoglycemia Protocol Glucose 15 gm 11/06/24 07:40 Glucose Oral Gel 15 Gm Of Glucse In 37.5 Gm Tube PO PRN PRN Hypoglycemia Protocol Hydrochlorothiazide 25 mg 12/03/24 09:00 12/11/24 09:17 Hydrochlorothiazide 25 Mg Tablet PO 25 mg QAM SOURAV Administration Hydromorphone HCl 1 mg 12/06/24 01:25 12/08/24 21:23 Hydromorphone Hcl Inj (*Crx) 1 Mg/Ml Syr IV PUSH 1 mg Q3H PRN Administration Breakthrough Pain Dextrose 1,000 mls @ 100 mls/hr 11/06/24 07:40 Dextrose 5% 1,000 Ml IVPB PRN PRN Hypoglycemia Protocol Meropenem 500 mg in 100 mls @ 200 mls/hr 12/04/24 18:00 12/11/24 05:53 IVPB 200 mls/hr Q12H SOURAV Administration Insulin Aspart 2 - 5 units 11/18/24 08:00 12/11/24 12:15 Insulin Aspart (*Bkc) 100 Units/Ml SUB-Q Not Given TIDWM [facility] Protocol Loperamide HCl 2 mg 12/01/24 10:59 12/01/24 15:17 Loperamide Hcl 2 Mg Capsule PO 2 mg PRN PRN Administration Diarrhea Mirtazapine 15 mg 11/30/24 21:00 12/10/24 21:47 Mirtazapine 15 Mg Tablet PO 15 mg HS SOURAV Administration Naloxone HCl 0.1 mg 12/08/24 16:21 Naloxone Hcl 0.4 Mg/Ml Vial IV PUSH Q2M PRN Opiate Reversal Ondansetron HCl 4 mg 12/08/24 16:21 Ondansetron Inj 4 Mg/2 Ml Vial IV PUSH Q4H PRN Nausea And Vomiting Pantoprazole Sodium 40 mg 12/08/24 21:00 12/11/24 09:16 Pantoprazole Sodium Iv 40 Mg Vial IV PUSH 40 mg Q12HR SOURAV Administration Phenyleph/Shark Oil/[place] Butter 1 supp 11/19/24 18:18 11/19/24 18:33 Phenylephrine Hcl/[place] Butter Supp.Rect (*Bkc) RECTAL 1 supp Q12HR PRN Administration Hemorrhoids Potassium Chloride 20 meq 12/06/24 09:00 12/11/24 09:17 Potassium Chloride 20 Meq Packet (For Liquid) PO 20 meq DAILY SOURAV Administration Psyllium Hydrophilic Mucilloid 1 packet 11/29/24 09:00 12/11/24 09:17 Psyllium Powder Packet PO 1 packet QAM SOURAV Administration Thiamine HCl 100 mg 12/08/24 09:00 12/11/24 09:16 Thiamine Hcl 200 Mg/2 Ml Vial IV PUSH 100 mg QAM SOURAV Administration Tramadol HCl 50 mg 12/06/24 01:23 12/10/24 21:46 Tramadol Hcl (*Crx) 50 Mg Tablet PO 50 mg Q6H PRN Administration Pain Rated 4-6 Radiology Results: ITS Impressions Head CT 11/05/24 20:50 IMPRESSION: 1. Moderate nonspecific cerebral white matter disease, which likely represents chronic small vessel ischemic disease. 2. 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 Upper GI Series 11/08/24 12:17 IMPRESSION: 1. Slow gastric emptying likely related to postoperative ileus. No extraluminal leakage of contrast. Abdomen X-Ray 11/14/24 11:13 IMPRESSION: Nonspecific, nonobstructive bowel gas pattern. Supportive devices unchanged in position. Bilateral pleural effusions. If clinical suspicion persists, CT examination of the abdomen and pelvis (with intravenous contrast) is suggested for further evaluation. Renal Ultrasound 11/19/24 16:17 IMPRESSION: No hydronephrosis or renal calculi. Findings suggesting medical renal disease. Free fluid within the pelvis. Venous Doppler Study 11/22/24 10:28 IMPRESSION: 1. No deep venous thrombosis in either lower limb. Renal Scan Nuclear Medicine 11/23/24 14:21 IMPRESSION: 1. Symmetric kidney function. 2. Delayed activity clearance from both kidneys with continually rising activity curves extending over the 30 minutes of observation and without associated hydronephrosis consistent with nonspecific, nonobstructive nephropathy. Modified Barium Swallow 11/26/24 10:39 IMPRESSION: 1. Trace laryngeal penetration. 2. Please refer to the speech therapy report for recommendations. Chest/Abdomen/Pelvis CT 12/02/24 14:47 IMPRESSION: Redemonstration of subcapsular fluid collections within both the liver and spleen (as detailed above) for which abscess formation is suspected. Both collections are amenable to percutaneous drainage. Bilateral large pleural effusions, with adjacent consolidation, decreased from prior. Catheter Placement CT 12/05/24 15:17 IMPRESSION: 1. Successful CT-guided subcapsular liver abscess drainage. 2. 2 mL opaque, moore fluid was sent for aerobic and anaerobic cultures. 3. Moderate-sized pleural effusions. 4. Moderate volume of ascites. Consider peritoneal drain placement. Chest X-Ray 12/08/24 12:28 IMPRESSION: 1. Stable airspace opacities at the lung bases, consistent with atelectasis versus pneumonia. 2. Stable small pleural effusions. 3. Emphysema. Abdomen/Pelvis CT 12/10/24 15:20 IMPRESSION: 1. Percutaneous abscess drains within a subcapsular fluid collections at the spleen and liver, both of which approximately half the volume of the prior study. 2. Persistent anasarca with extensive soft tissue edema and 3. Decrease in size of small bilateral pleural effusions. 4. Tree-in-bud opacities in the bilateral lower lobes consistent with pneumonia. Moderate amount of ascites throughout the abdomen and pelvis. Labs Labs: Laboratory Results - last 24 hr 12/10/24 12/10/24 12/11/24 17:04 20:06 08:27 WBC RBC Hgb Hct MCV MCH MCHC RDW Plt Count MPV Immature Gran % (Auto) Neut % (Auto) Lymph % (Auto) [place] % (Auto) Eos % (Auto) Baso % (Auto) Lymph # (Auto) [place] # (Auto) Eos # (Auto) Baso # (Auto) Abs Immat Gran (auto) Absolute Neuts (auto) Absolute Nucleated RBC Nucleated RBC % Sodium Potassium Chloride Carbon Dioxide Anion Gap BUN Creatinine Estim Creat Clear Calc Estimated GFR Glucose POC Capillary Glucose 127 H 119 H 98 Calcium Total Bilirubin AST ALT Alkaline Phosphatase Total Protein Albumin 12/11/24 12/11/24 12:08 13:06 WBC 14.1 H RBC 3.26 L Hgb 9.0 L Hct 28.7 L MCV 88.0 MCH 27.6 MCHC 31.4 L RDW 14.3 Plt Count 688 H MPV 9.8 Immature Gran % (Auto) 0.8 H Neut % (Auto) 83.0 H Lymph % (Auto) 9.9 L [place] % (Auto) 5.5 Eos % (Auto) 0.2 Baso % (Auto) 0.6 Lymph # (Auto) 1.39 [place] # (Auto) 0.8 H Eos # (Auto) 0.0 Baso # (Auto) 0.1 Abs Immat Gran (auto) 0.11 H Absolute Neuts (auto) 11.7 H Absolute Nucleated RBC 0.000 Nucleated RBC % 0.0 Sodium 136 L Potassium 4.0 Chloride 93 L Carbon Dioxide 36 H Anion Gap 7 BUN 44 H Creatinine 1.72 H Estim Creat Clear Calc 20 Estimated GFR 40 L Glucose 155 H POC Capillary Glucose 145 H Calcium 8.5 Total Bilirubin 0.5 AST 31 ALT 14 Alkaline Phosphatase 139 H Total Protein 7.0 Albumin 3.3 L Quality VTE Prophylaxis VTE prophylaxis: mechanical ordered and pharmacologic ordered
[2024-12-11 16:40] LABS: Glucose Point of Care 111 mg/dl (65-105)
[2024-12-11] MEDS: ONDANSETRON INJ 4 MG/2 ML VIAL IV PUSH (17:14)
[2024-12-11] MEDS: traMADol HCL (*CRX) 50 MG TABLET PO (20:16)
[2024-12-11] MEDS: MIRTAZAPINE 15 MG TABLET PO (20:16)
[2024-12-11 21:15] LABS: Glucose Point of Care 110 mg/dl (65-105)
[2024-12-11 21:51] VITALS: BP 105/81; PULSE 71; RESP 16; TEMP 37.4; O2SAT 92
[2024-12-12] MEDS: MEROPENEM 500 MG/NS 100 ML 500 MG/100 ML BAG 200 MG IVPB (05:22)
[2024-12-12 05:54] VITALS: BP 116/74; PULSE 84; RESP 14; TEMP 37.1; O2SAT 96
[2024-12-12 07:50] LABS: Glucose Point of Care 137 mg/dl (65-105)
[2024-12-12 08:00] VITALS: O2SAT 96
[2024-12-12] MEDS: PANTOPRAZOLE SODIUM IV 40 MG VIAL IV PUSH ×2 (08:44→21:56)
[2024-12-12] MEDS: THIAMINE HCL 200 MG/2 ML VIAL 100 MG IV PUSH (08:46)
[2024-12-12] MEDS: FUROSEMIDE INJ 40 MG/4 ML VIAL 20 MG IV PUSH ×2 (08:49→17:27)
[2024-12-12] MEDS: amLODIPine BESYLATE 10 MG TABLET PO (08:51)
[2024-12-12] MEDS: POTASSIUM CHLORIDE 20 MEQ PACKET (FOR LIQUID) PO (08:51)
[2024-12-12] MEDS: hydroCHLOROthiazide 25 MG TABLET PO (08:51)
[2024-12-12] MEDS: ENOXAPARIN 30 MG/0.3 ML SYRINGE SUB-Q (08:52)
[2024-12-12] MEDS: PSYLLIUM POWDER PACKET 1 PACKET PO (08:52)
[2024-12-12] MEDS: FOLIC ACID 1 MG/0.2 ML INJ IV PUSH (08:57)
[2024-12-12 11:32] LABS: Glucose Point of Care 132 mg/dl (65-105)
--- NOTE | 2024-12-12 12:27 | P.PNIM_ITS ---
Progress Note: A&P Assessment and Plan (1) Metabolic acidosis: Code(s): E87.20 - Acidosis, unspecified Status: Acute Assessment and Plan: resolved (2) DEBI (acute kidney injury): Code(s): N17.9 - Acute kidney failure, unspecified Status: Acute Assessment and Plan: Creatinine seems to have stabilized at 1.7 Nephrology following (3) Perforated gastric ulcer: Qualifiers: Gastric ulcer chronicity: acute Qualified Code(s): K25.1 - Acute gastric ulcer with perforation Code(s): K25.5 - Chronic or unspecified gastric ulcer with perforation Status: Acute Assessment and Plan: Resolved Continue with Protonix and monitor hgb (4) COPD (chronic obstructive pulmonary disease): Code(s): J44.9 - Chronic obstructive pulmonary disease, unspecified Status: Acute Assessment and Plan: Stable on current medications. Will continue current treatment. (5) Sepsis: Code(s): A41.9 - Sepsis, unspecified organism Status: Acute Assessment and Plan: Completed antibiotics (6) Pneumonia: Code(s): J18.9 - Pneumonia, unspecified organism Status: Acute Assessment and Plan: Completed antibiotics pneumonia resolved Repeat CXR showed pulm edema and Pleural effusion now on lasix (7) Acute hypoxic respiratory failure: Code(s): J96.01 - Acute respiratory failure with hypoxia Status: Acute Assessment and Plan: resolved CXR showed pulm edema and pleural effusion continue Lasix 20mg bid and monitor renal function ECHO from june normal function monitor (8) Sepsis associated hypotension: Code(s): A41.9 - Sepsis, unspecified organism; I95.9 - Hypotension, unspecified Status: Acute Assessment and Plan: completed antibiotics (9) EtOH dependence: Code(s): F10.20 - Alcohol dependence, uncomplicated Status: Acute Assessment and Plan: Counselling given (10) Failure to thrive: Status: Acute Plan Consulted Hospice Perforated Gastric ulcer Patient underwent surgery on 11/05. Patient condition has been declining after the perforated gastric ulcer. Recently he was placed perc drain due to spleen and liver abscess. Failure to thrive Patient has multiple co-morbid condition including COPD,alcohol abuse, perforated ulcer, liver abscess,and recent surgical stress. Patient is unable to eat due to current events, multiple co-morbid conditions and prolonged hospitalization. Patient currently wants to go hospice and lives his rest of his with quality. Discussed with his brother who is POA. Diarrhea Resolved Stool culture and c diff negative Likely from pureed diet started on PRN imodium leukocytosis resolving Surgery re-evaluated the re-demonstration of subcapsular fluid collections within both the liver and spleen for which abscess formation is suspected.. Underwent perc drain on 12/05 Repeat blood culture pending. CXR done several days ago showed pulm edema and patient has responded to lasix and off oxygen Lactic acid normal Repeated blood culture Code status DNR DVT prophylaxis on Sq Lovenox PT/OT following Awaiting placement to [place] hospice Subjective Date/time seen: 12/12/24 12:27 Interval history: patient comfortable at bedside affirmed he is electing for hospice awaiting transfer to [facility] Review of Systems Review of Systems: Pt with a dry throat not talking loudly ROS unobtainable: Yes unobtainable due to endotracheal tube, unobtainable due to medical condition and unobtainable due to mental status Exam Narrative: General: More alert toady Lungs/Chest: Trachea central Coarse BS B/L, No crackles or wheezing. Cardiac: RRR. Normal S1 S2. No murmurs Abdomen: Decreased but present bowel sounds. Extremities: No clubbing, cyanosis or edema. Warm : Shen in place Neurologic: Patient is able to move all 4 extremities spontaneously. Objective Data Vital Signs Vital Signs: Vital Signs - 24 hr 12/11/24 13:00 12/11/24 14:00 12/11/24 20:00 Temperature 98.2 F 98.2 F Pulse Rate 80 80 Respiratory Rate 20 20 Blood Pressure 120/78 120/78 Pulse Oximetry 100 100 Oxygen Delivery Room Air 12/11/24 21:51 12/12/24 05:54 12/12/24 08:00 Temperature 99.3 F 98.7 F Pulse Rate 71 84 Respiratory Rate 16 14 Blood Pressure 105/81 116/74 Pulse Oximetry 92 96 96 Oxygen Delivery Room Air Intake/Output Intake/Output: Intake & Output 12/09/24 12/10/24 12/11/24 12/12/24 23:59 23:59 23:59 23:59 Intake Total 865 1360 1020 150 Output Total 1200 200 0 75 Balance -335 1160 1020 75 Meds/Results Medications: Active Medications Generic Name Dose Route Start Last Admin Trade Name Freq PRN Reason Stop Dose Admin Acetaminophen 650 mg 12/25/24 15:21 12/07/24 18:02 Acetaminophen Elixir 325 Mg/10.15 Ml Udc FEED TUBE 650 mg Q4H PRN Administration Headache, Fever, Mild Pain Acetaminophen 650 mg 12/08/24 16:13 Acetaminophen 650 Mg Suppository RECTAL Q4H PRN Mild Pain (1-3) or Fever Albuterol 2.5 mg 12/08/24 16:23 Albuterol Sulfate Neb 2.5 Mg/3 Ml Inh INHALATION Q12HR PRN Shortness Of Breath Amlodipine Besylate 10 mg 12/02/24 09:00 12/12/24 08:51 Amlodipine Besylate 10 Mg Tablet PO 10 mg DAILY SOURAV Administration Dextrose 12.5 gm 11/06/24 07:40 11/21/24 16:58 Dextrose 50% 25 Gm/50 Ml Syringe IV PUSH 12.5 gm PRN PRN Administration Hypoglycemia Protocol Enoxaparin Sodium 30 mg 11/29/24 09:00 12/12/24 08:52 Enoxaparin 30 Mg/0.3 Ml Syringe SUB-Q 30 mg DAILY SOURAV Administration Folic Acid 1 mg 12/08/24 09:00 12/12/24 08:57 Folic Acid 1 Mg/0.2 Ml Inj IV PUSH 1 mg QAM SOURAV Administration Furosemide 20 mg 11/28/24 17:00 12/12/24 08:49 Furosemide Inj 40 Mg/4 Ml Vial IV PUSH 20 mg BID SOURAV Administration Glucagon 1 mg 11/06/24 07:40 Glucagon For Inj 1 Mg Vial IM PRN PRN Hypoglycemia Protocol Glucose 15 gm 11/06/24 07:40 Glucose Oral Gel 15 Gm Of Glucse In 37.5 Gm Tube PO PRN PRN Hypoglycemia Protocol Hydrochlorothiazide 25 mg 12/03/24 09:00 12/12/24 08:51 Hydrochlorothiazide 25 Mg Tablet PO 25 mg QAM SOURAV Administration Hydromorphone HCl 1 mg 12/06/24 01:25 12/08/24 21:23 Hydromorphone Hcl Inj (*Crx) 1 Mg/Ml Syr IV PUSH 1 mg Q3H PRN Administration Breakthrough Pain Dextrose 1,000 mls @ 100 mls/hr 11/06/24 07:40 Dextrose 5% 1,000 Ml IVPB PRN PRN Hypoglycemia Protocol Insulin Aspart 2 - 5 units 11/18/24 08:00 12/12/24 11:32 Insulin Aspart (*Bkc) 100 Units/Ml SUB-Q Not Given TIDWM [facility] Protocol Levofloxacin 750 mg 12/12/24 19:00 Levofloxacin 750 Mg Tablet PO Q48H SOURAV Loperamide HCl 2 mg 12/01/24 10:59 12/01/24 15:17 Loperamide Hcl 2 Mg Capsule PO 2 mg PRN PRN Administration Diarrhea Metronidazole 500 mg 12/12/24 14:00 Metronidazole 500 Mg Tablet PO Q8HR SOURAV Mirtazapine 15 mg 11/30/24 21:00 12/11/24 20:16 Mirtazapine 15 Mg Tablet PO 15 mg HS SOURAV Administration Naloxone HCl 0.1 mg 12/08/24 16:21 Naloxone Hcl 0.4 Mg/Ml Vial IV PUSH Q2M PRN Opiate Reversal Ondansetron HCl 4 mg 12/08/24 16:21 12/11/24 17:14 Ondansetron Inj 4 Mg/2 Ml Vial IV PUSH 4 mg Q4H PRN Administration Nausea And Vomiting Pantoprazole Sodium 40 mg 12/08/24 21:00 12/12/24 08:44 Pantoprazole Sodium Iv 40 Mg Vial IV PUSH 40 mg Q12HR SOURAV Administration Phenyleph/Shark Oil/[place] Butter 1 supp 11/19/24 18:18 11/19/24 18:33 Phenylephrine Hcl/[place] Butter Supp.Rect (*Bkc) RECTAL 1 supp Q12HR PRN Administration Hemorrhoids Potassium Chloride 20 meq 12/06/24 09:00 12/12/24 08:51 Potassium Chloride 20 Meq Packet (For Liquid) PO 20 meq DAILY SOURAV Administration Psyllium Hydrophilic Mucilloid 1 packet 11/29/24 09:00 12/12/24 08:52 Psyllium Powder Packet PO 1 packet QAM SOURAV Administration Thiamine HCl 100 mg 12/08/24 09:00 12/12/24 08:46 Thiamine Hcl 200 Mg/2 Ml Vial IV PUSH 100 mg QAM SOURAV Administration Tramadol HCl 50 mg 12/06/24 01:23 12/11/24 20:16 Tramadol Hcl (*Crx) 50 Mg Tablet PO 50 mg Q6H PRN Administration Pain Rated 4-6 Radiology Results: ITS Impressions Head CT 11/05/24 20:50 IMPRESSION: 1. Moderate nonspecific cerebral white matter disease, which likely represents chronic small vessel ischemic disease. 2. 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 Upper GI Series 11/08/24 12:17 IMPRESSION: 1. Slow gastric emptying likely related to postoperative ileus. No extraluminal leakage of contrast. Abdomen X-Ray 11/14/24 11:13 IMPRESSION: Nonspecific, nonobstructive bowel gas pattern. Supportive devices unchanged in position. Bilateral pleural effusions. If clinical suspicion persists, CT examination of the abdomen and pelvis (with intravenous contrast) is suggested for further evaluation. Renal Ultrasound 11/19/24 16:17 IMPRESSION: No hydronephrosis or renal calculi. Findings suggesting medical renal disease. Free fluid within the pelvis. Venous Doppler Study 11/22/24 10:28 IMPRESSION: 1. No deep venous thrombosis in either lower limb. Renal Scan Nuclear Medicine 11/23/24 14:21 IMPRESSION: 1. Symmetric kidney function. 2. Delayed activity clearance from both kidneys with continually rising activity curves extending over the 30 minutes of observation and without associated hydronephrosis consistent with nonspecific, nonobstructive nephropathy. Modified Barium Swallow 11/26/24 10:39 IMPRESSION: 1. Trace laryngeal penetration. 2. Please refer to the speech therapy report for recommendations. Chest/Abdomen/Pelvis CT 12/02/24 14:47 IMPRESSION: Redemonstration of subcapsular fluid collections within both the liver and spleen (as detailed above) for which abscess formation is suspected. Both collections are amenable to percutaneous drainage. Bilateral large pleural effusions, with adjacent consolidation, decreased from prior. Catheter Placement CT 12/05/24 15:17 IMPRESSION: 1. Successful CT-guided subcapsular liver abscess drainage. 2. 2 mL opaque, moore fluid was sent for aerobic and anaerobic cultures. 3. Moderate-sized pleural effusions. 4. Moderate volume of ascites. Consider peritoneal drain placement. Chest X-Ray 12/08/24 12:28 IMPRESSION: 1. Stable airspace opacities at the lung bases, consistent with atelectasis versus pneumonia. 2. Stable small pleural effusions. 3. Emphysema. Abdomen/Pelvis CT 12/10/24 15:20 IMPRESSION: 1. Percutaneous abscess drains within a subcapsular fluid collections at the spleen and liver, both of which approximately half the volume of the prior study. 2. Persistent anasarca with extensive soft tissue edema and 3. Decrease in size of small bilateral pleural effusions. 4. Tree-in-bud opacities in the bilateral lower lobes consistent with pneumonia. Moderate amount of ascites throughout the abdomen and pelvis. Labs Labs: Laboratory Results - last 24 hr 12/11/24 12/11/24 12/11/24 13:06 16:37 21:08 WBC 14.1 H RBC 3.26 L Hgb 9.0 L Hct 28.7 L MCV 88.0 MCH 27.6 MCHC 31.4 L RDW 14.3 Plt Count 688 H MPV 9.8 Immature Gran % (Auto) 0.8 H Neut % (Auto) 83.0 H Lymph % (Auto) 9.9 L [place] % (Auto) 5.5 Eos % (Auto) 0.2 Baso % (Auto) 0.6 Lymph # (Auto) 1.39 [place] # (Auto) 0.8 H Eos # (Auto) 0.0 Baso # (Auto) 0.1 Abs Immat Gran (auto) 0.11 H Absolute Neuts (auto) 11.7 H Absolute Nucleated RBC 0.000 Nucleated RBC % 0.0 Sodium 136 L Potassium 4.0 Chloride 93 L Carbon Dioxide 36 H Anion Gap 7 BUN 44 H Creatinine 1.72 H Estim Creat Clear Calc 20 Estimated GFR 40 L Glucose 155 H POC Capillary Glucose 111 H 110 H Calcium 8.5 Total Bilirubin 0.5 AST 31 ALT 14 Alkaline Phosphatase 139 H Total Protein 7.0 Albumin 3.3 L 12/12/24 12/12/24 07:45 11:27 WBC RBC Hgb Hct MCV MCH MCHC RDW Plt Count MPV Immature Gran % (Auto) Neut % (Auto) Lymph % (Auto) [place] % (Auto) Eos % (Auto) Baso % (Auto) Lymph # (Auto) [place] # (Auto) Eos # (Auto) Baso # (Auto) Abs Immat Gran (auto) Absolute Neuts (auto) Absolute Nucleated RBC Nucleated RBC % Sodium Potassium Chloride Carbon Dioxide Anion Gap BUN Creatinine Estim Creat Clear Calc Estimated GFR Glucose POC Capillary Glucose 137 H 132 H Calcium Total Bilirubin AST ALT Alkaline Phosphatase Total Protein Albumin Quality VTE Prophylaxis VTE prophylaxis: mechanical ordered and pharmacologic ordered
[2024-12-12 14:00] VITALS: BP 108/72; PULSE 71; RESP 16; TEMP 36.8; O2SAT 95
[2024-12-12] MEDS: metroNIDAZOLE 500 MG TABLET PO ×2 (14:08→21:55)
[2024-12-12 16:52] LABS: Glucose Point of Care 129 mg/dl (65-105)
[2024-12-12] MEDS: levoFLOXacin 750 MG TABLET PO (17:26)
[2024-12-12 21:47] LABS: Glucose Point of Care 102 mg/dl (65-105)
[2024-12-12] MEDS: MIRTAZAPINE 15 MG TABLET PO (21:56)
[2024-12-12 22:00] VITALS: BP 107/76; PULSE 64; RESP 16; TEMP 37.3; O2SAT 97
[2024-12-13 06:00] VITALS: BP 112/67; PULSE 73; RESP 16; TEMP 36.7; O2SAT 95
[2024-12-13] MEDS: metroNIDAZOLE 500 MG TABLET PO ×3 (06:24→21:03)
[2024-12-13 08:23] LABS: Glucose Point of Care 111 mg/dl (65-105)
[2024-12-13] MEDS: ENOXAPARIN 30 MG/0.3 ML SYRINGE SUB-Q (09:52)
[2024-12-13] MEDS: PANTOPRAZOLE SODIUM IV 40 MG VIAL IV PUSH ×2 (09:54→21:03)
[2024-12-13] MEDS: THIAMINE HCL 200 MG/2 ML VIAL 100 MG IV PUSH (09:59)
[2024-12-13] MEDS: FUROSEMIDE INJ 40 MG/4 ML VIAL 20 MG IV PUSH (09:59)
[2024-12-13] MEDS: PSYLLIUM POWDER PACKET 1 PACKET PO (10:03)
[2024-12-13] MEDS: amLODIPine BESYLATE 10 MG TABLET PO (10:03)
[2024-12-13] MEDS: hydroCHLOROthiazide 25 MG TABLET PO (10:04)
[2024-12-13] MEDS: POTASSIUM CHLORIDE 20 MEQ PACKET (FOR LIQUID) PO (10:04)
[2024-12-13] MEDS: ACETAMINOPHEN ELIXIR 325 MG/10.15 ML UDC 650 MG FEED TUBE (10:10)
[2024-12-13] MEDS: FOLIC ACID 1 MG/0.2 ML INJ IV PUSH (10:10)
[2024-12-13 11:49] LABS: Glucose Point of Care 121 mg/dl (65-105)
[2024-12-13 14:00] VITALS: BP 101/72; PULSE 84; RESP 14; TEMP 36.6; O2SAT 95
--- NOTE | 2024-12-13 14:41 | PM.IMPN ---
Progress Note: A&P Assessment and Plan (1) Metabolic acidosis: Code(s): E87.20 - Acidosis, unspecified Status: Acute Assessment and Plan: resolved (2) DEBI (acute kidney injury): Code(s): N17.9 - Acute kidney failure, unspecified Status: Acute Assessment and Plan: Creatinine seems to have stabilized at 1.7 Nephrology following (3) Perforated gastric ulcer: Qualifiers: Gastric ulcer chronicity: acute Qualified Code(s): K25.1 - Acute gastric ulcer with perforation Code(s): K25.5 - Chronic or unspecified gastric ulcer with perforation Status: Acute Assessment and Plan: Resolved Continue with Protonix and monitor hgb (4) COPD (chronic obstructive pulmonary disease): Code(s): J44.9 - Chronic obstructive pulmonary disease, unspecified Status: Acute Assessment and Plan: Stable on current medications. Will continue current treatment. (5) Sepsis: Code(s): A41.9 - Sepsis, unspecified organism Status: Acute Assessment and Plan: Completed antibiotics (6) Pneumonia: Code(s): J18.9 - Pneumonia, unspecified organism Status: Acute Assessment and Plan: Completed antibiotics pneumonia resolved Repeat CXR showed pulm edema and Pleural effusion now on lasix (7) Acute hypoxic respiratory failure: Code(s): J96.01 - Acute respiratory failure with hypoxia Status: Acute Assessment and Plan: resolved CXR showed pulm edema and pleural effusion continue Lasix 20mg bid and monitor renal function ECHO from june normal function monitor (8) Sepsis associated hypotension: Code(s): A41.9 - Sepsis, unspecified organism; I95.9 - Hypotension, unspecified Status: Acute Assessment and Plan: completed antibiotics (9) EtOH dependence: Code(s): F10.20 - Alcohol dependence, uncomplicated Status: Acute Assessment and Plan: Counselling given (10) Failure to thrive: Status: Acute Plan Consulted Hospice Perforated Gastric ulcer Patient underwent surgery on 11/05. Patient condition has been declining after the perforated gastric ulcer. Recently he was placed perc drain due to spleen and liver abscess. Failure to thrive Patient has multiple co-morbid condition including COPD,alcohol abuse, perforated ulcer, liver abscess,and recent surgical stress. Patient is unable to eat due to current events, multiple co-morbid conditions and prolonged hospitalization. Patient currently wants to go hospice and lives his rest of his with quality. Discussed with his brother who is POA. Diarrhea Resolved Stool culture and c diff negative Likely from pureed diet started on PRN imodium leukocytosis resolving Surgery re-evaluated the re-demonstration of subcapsular fluid collections within both the liver and spleen for which abscess formation is suspected.. Underwent perc drain on 12/05 Repeat blood culture pending. CXR done several days ago showed pulm edema and patient has responded to lasix and off oxygen Lactic acid normal Repeated blood culture Subcapsular Spleen and Liver on percutaneous drainage repeat CT showed improving, half the prior volume. Gen surgery following Code status DNR DVT prophylaxis on Sq Lovenox PT/OT following patient off Hospice per [facility] decision [facility] Subjective Date/time seen: 12/13/24 14:41 Interval history: patient comfortable at bedside Patient changed his mind about hospice Now back on treatment Review of Systems Review of Systems: Pt with a dry throat not talking loudly ROS unobtainable: Yes unobtainable due to endotracheal tube, unobtainable due to medical condition and unobtainable due to mental status Exam Narrative: General: More alert toady Lungs/Chest: Trachea central Coarse BS B/L, No crackles or wheezing. Cardiac: RRR. Normal S1 S2. No murmurs Abdomen: Decreased but present bowel sounds. Extremities: No clubbing, cyanosis or edema. Warm : Shen in place Neurologic: Patient is able to move all 4 extremities spontaneously. Objective Data Vital Signs Vital Signs: Vital Signs - 24 hr 12/12/24 22:00 12/13/24 06:00 12/13/24 12:56 Temperature 99.1 F 98.0 F Pulse Rate 64 73 Respiratory Rate 16 16 Blood Pressure 107/76 112/67 Pulse Oximetry 97 95 Oxygen Delivery Room Air 12/13/24 12:57 Temperature Pulse Rate Respiratory Rate Blood Pressure Pulse Oximetry Oxygen Delivery Room Air Intake/Output Intake/Output: Intake & Output 12/10/24 12/11/24 12/12/24 12/13/24 23:59 23:59 23:59 23:59 Intake Total 1360 1020 550 240 Output Total 200 0 75 2 Balance 1160 1020 475 238 Meds/Results Medications: Active Medications Generic Name Dose Route Start Last Admin Trade Name Freq PRN Reason Stop Dose Admin Acetaminophen 650 mg 11/14/24 15:21 12/13/24 10:10 Acetaminophen Elixir 325 Mg/10.15 Ml Udc FEED TUBE 650 mg Q4H PRN Administration Headache, Fever, Mild Pain Acetaminophen 650 mg 12/08/24 16:13 Acetaminophen 650 Mg Suppository RECTAL Q4H PRN Mild Pain (1-3) or Fever Albuterol 2.5 mg 12/08/24 16:23 Albuterol Sulfate Neb 2.5 Mg/3 Ml Inh INHALATION Q12HR PRN Shortness Of Breath Amlodipine Besylate 10 mg 12/02/24 09:00 12/13/24 10:03 Amlodipine Besylate 10 Mg Tablet PO 10 mg DAILY SOURAV Administration Dextrose 12.5 gm 11/06/24 07:40 11/21/24 16:58 Dextrose 50% 25 Gm/50 Ml Syringe IV PUSH 12.5 gm PRN PRN Administration Hypoglycemia Protocol Enoxaparin Sodium 30 mg 11/29/24 09:00 12/13/24 09:52 Enoxaparin 30 Mg/0.3 Ml Syringe SUB-Q 30 mg DAILY SOURAV Administration Folic Acid 1 mg 12/08/24 09:00 12/13/24 10:10 Folic Acid 1 Mg/0.2 Ml Inj IV PUSH 1 mg QAM SOURAV Administration Furosemide 20 mg 11/28/24 17:00 12/13/24 09:59 Furosemide Inj 40 Mg/4 Ml Vial IV PUSH 20 mg BID SOURAV Administration Glucagon 1 mg 11/06/24 07:40 Glucagon For Inj 1 Mg Vial IM PRN PRN Hypoglycemia Protocol Glucose 15 gm 11/06/24 07:40 Glucose Oral Gel 15 Gm Of Glucse In 37.5 Gm Tube PO PRN PRN Hypoglycemia Protocol Hydrochlorothiazide 25 mg 12/03/24 09:00 12/13/24 10:04 Hydrochlorothiazide 25 Mg Tablet PO 25 mg QAM SOURAV Administration Hydromorphone HCl 1 mg 12/06/24 01:25 12/08/24 21:23 Hydromorphone Hcl Inj (*Crx) 1 Mg/Ml Syr IV PUSH 1 mg Q3H PRN Administration Breakthrough Pain Dextrose 1,000 mls @ 100 mls/hr 11/06/24 07:40 Dextrose 5% 1,000 Ml IVPB PRN PRN Hypoglycemia Protocol Insulin Aspart 2 - 5 units 11/18/24 08:00 12/13/24 11:50 Insulin Aspart (*Bkc) 100 Units/Ml SUB-Q Not Given TIDWM [facility] Protocol Levofloxacin 750 mg 12/12/24 19:00 12/12/24 17:26 Levofloxacin 750 Mg Tablet PO 750 mg Q48H SOURAV Administration Loperamide HCl 2 mg 12/01/24 10:59 12/01/24 15:17 Loperamide Hcl 2 Mg Capsule PO 2 mg PRN PRN Administration Diarrhea Metronidazole 500 mg 12/12/24 14:00 12/13/24 13:15 Metronidazole 500 Mg Tablet PO 500 mg Q8HR SOURAV Administration Mirtazapine 15 mg 11/30/24 21:00 12/12/24 21:56 Mirtazapine 15 Mg Tablet PO 15 mg HS SOURAV Administration Naloxone HCl 0.1 mg 12/08/24 16:21 Naloxone Hcl 0.4 Mg/Ml Vial IV PUSH Q2M PRN Opiate Reversal Ondansetron HCl 4 mg 12/08/24 16:21 12/11/24 17:14 Ondansetron Inj 4 Mg/2 Ml Vial IV PUSH 4 mg Q4H PRN Administration Nausea And Vomiting Pantoprazole Sodium 40 mg 12/08/24 21:00 12/13/24 09:54 Pantoprazole Sodium Iv 40 Mg Vial IV PUSH 40 mg Q12HR SOURAV Administration Phenyleph/Shark Oil/[place] Butter 1 supp 11/19/24 18:18 11/19/24 18:33 Phenylephrine Hcl/[place] Butter Supp.Rect (*Bkc) RECTAL 1 supp Q12HR PRN Administration Hemorrhoids Potassium Chloride 20 meq 12/06/24 09:00 12/13/24 10:04 Potassium Chloride 20 Meq Packet (For Liquid) PO 20 meq DAILY SOURAV Administration Psyllium Hydrophilic Mucilloid 1 packet 11/29/24 09:00 12/13/24 10:03 Psyllium Powder Packet PO 1 packet QAM SOURAV Administration Thiamine HCl 100 mg 12/08/24 09:00 12/13/24 09:59 Thiamine Hcl 200 Mg/2 Ml Vial IV PUSH 100 mg QAM SOURAV Administration Tramadol HCl 50 mg 12/06/24 01:23 12/11/24 20:16 Tramadol Hcl (*Crx) 50 Mg Tablet PO 50 mg Q6H PRN Administration Pain Rated 4-6 Radiology Results: ITS Impressions Head CT 11/05/24 20:50 IMPRESSION: 1. Moderate nonspecific cerebral white matter disease, which likely represents chronic small vessel ischemic disease. 2. 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 Upper GI Series 11/08/24 12:17 IMPRESSION: 1. Slow gastric emptying likely related to postoperative ileus. No extraluminal leakage of contrast. Abdomen X-Ray 11/14/24 11:13 IMPRESSION: Nonspecific, nonobstructive bowel gas pattern. Supportive devices unchanged in position. Bilateral pleural effusions. If clinical suspicion persists, CT examination of the abdomen and pelvis (with intravenous contrast) is suggested for further evaluation. Renal Ultrasound 11/19/24 16:17 IMPRESSION: No hydronephrosis or renal calculi. Findings suggesting medical renal disease. Free fluid within the pelvis. Venous Doppler Study 11/22/24 10:28 IMPRESSION: 1. No deep venous thrombosis in either lower limb. Renal Scan Nuclear Medicine 11/23/24 14:21 IMPRESSION: 1. Symmetric kidney function. 2. Delayed activity clearance from both kidneys with continually rising activity curves extending over the 30 minutes of observation and without associated hydronephrosis consistent with nonspecific, nonobstructive nephropathy. Modified Barium Swallow 11/26/24 10:39 IMPRESSION: 1. Trace laryngeal penetration. 2. Please refer to the speech therapy report for recommendations. Chest/Abdomen/Pelvis CT 12/02/24 14:47 IMPRESSION: Redemonstration of subcapsular fluid collections within both the liver and spleen (as detailed above) for which abscess formation is suspected. Both collections are amenable to percutaneous drainage. Bilateral large pleural effusions, with adjacent consolidation, decreased from prior. Catheter Placement CT 12/05/24 15:17 IMPRESSION: 1. Successful CT-guided subcapsular liver abscess drainage. 2. 2 mL opaque, moore fluid was sent for aerobic and anaerobic cultures. 3. Moderate-sized pleural effusions. 4. Moderate volume of ascites. Consider peritoneal drain placement. Chest X-Ray 12/08/24 12:28 IMPRESSION: 1. Stable airspace opacities at the lung bases, consistent with atelectasis versus pneumonia. 2. Stable small pleural effusions. 3. Emphysema. Abdomen/Pelvis CT 12/10/24 15:20 IMPRESSION: 1. Percutaneous abscess drains within a subcapsular fluid collections at the spleen and liver, both of which approximately half the volume of the prior study. 2. Persistent anasarca with extensive soft tissue edema and 3. Decrease in size of small bilateral pleural effusions. 4. Tree-in-bud opacities in the bilateral lower lobes consistent with pneumonia. Moderate amount of ascites throughout the abdomen and pelvis. Labs Labs: Laboratory Results - last 24 hr 12/12/24 12/12/24 12/13/24 16:48 21:40 07:55 POC Capillary Glucose 129 H 102 111 H 12/13/24 11:31 POC Capillary Glucose 121 H Quality VTE Prophylaxis VTE prophylaxis: mechanical ordered and pharmacologic ordered
--- NOTE | 2024-12-13 16:24 | P.PNGS_ITS ---
Progress Note: A&P Assessment and Plan (1) Abdominal pain: Qualifiers: Abdominal location: unspecified location Qualified Code(s): R10.9 - Unspecified abdominal pain Code(s): R10.9 - Unspecified abdominal pain Status: Acute Assessment and Plan: Liver abscess and splenic abscess have been percutaneously drained. Repeat CT scan 3 days ago showed improvement of the abscesses to nearly half the size. Minimal to no output from the drains at this point. Discussed the case with Dr. Bello, and I removed both percutaneous drains at the bedside today. He has already been transition to oral antibiotics, which can be continued. He is surgically stable [facility] when placement is confirmed and he is medically stable. He can follow-up with Dr. Rodriguez 2 weeks after discharge if able to arrange transportation, otherwise f/u as needed. (2) Perforated viscus: Code(s): R19.8 - Other specified symptoms and signs involving the digestive system and abdomen Status: Acute Assessment and Plan: Doing well after surgical repair perforated duodenal ulcer. Plan I have discussed the patient's case and plan of care with Dr. Bello. Subjective Subjective Date/Time Seen: 12/13/24 16:24 Patient reports: no new complaints and afebrile Interval history: Patient doing well. No specific complaints. He chose not to go Hospice and is stating he wants to live and he wants full treatment. [facility], but patient must work with therapy for 2 consecutive days to get this approved. Last white blood cell count was checked 2 days ago and down to 14,000. He has been afebrile. He denies any abdominal pain. Exam Const: General: comfortable and no acute distress GI: Inspection: non-distended GI Palp: Yes Soft to palpation, No Tenderness to palpation present (GI) and No Guarding due to palpation present (GI) Auscultation: normal bowel sounds Other: Left-sided and right-sided percutaneous drains in place with scant yellow/moore output in the bag. Both sutures and percutaneous drains were removed at the bedside with a sterile gauze dressing applied. He tolerated this well. Objective Data Vital Signs Vital Signs: Vital Signs - 24 hr 12/12/24 22:00 12/13/24 06:00 12/13/24 12:56 Temperature 99.1 F 98.0 F Pulse Rate 64 73 Respiratory Rate 16 16 Blood Pressure 107/76 112/67 Pulse Oximetry 97 95 Oxygen Delivery Room Air 12/13/24 12:57 12/13/24 14:00 Temperature 97.9 F Pulse Rate 95 Respiratory Rate 14 Blood Pressure 101/72 Pulse Oximetry 84 L Oxygen Delivery Room Air Intake/Output Intake/Output: Intake & Output 12/10/24 12/11/24 12/12/24 12/13/24 23:59 23:59 23:59 23:59 Intake Total 1360 1020 550 240 Output Total 200 0 75 2 Balance 1160 1020 475 238 Meds/Results Medications: Active Medications Generic Name Dose Route Start Last Admin Trade Name Freq PRN Reason Stop Dose Admin Acetaminophen 650 mg 11/14/24 15:21 12/13/24 10:10 Acetaminophen Elixir 325 Mg/10.15 Ml Udc FEED TUBE 650 mg Q4H PRN Administration Headache, Fever, Mild Pain Acetaminophen 650 mg 12/08/24 16:13 Acetaminophen 650 Mg Suppository RECTAL Q4H PRN Mild Pain (1-3) or Fever Albuterol 2.5 mg 12/08/24 16:23 Albuterol Sulfate Neb 2.5 Mg/3 Ml Inh INHALATION Q12HR PRN Shortness Of Breath Amlodipine Besylate 10 mg 12/02/24 09:00 12/13/24 10:03 Amlodipine Besylate 10 Mg Tablet PO 10 mg DAILY SOURAV Administration Dextrose 12.5 gm 11/06/24 07:40 11/21/24 16:58 Dextrose 50% 25 Gm/50 Ml Syringe IV PUSH 12.5 gm PRN PRN Administration Hypoglycemia Protocol Enoxaparin Sodium 30 mg 11/29/24 09:00 12/13/24 09:52 Enoxaparin 30 Mg/0.3 Ml Syringe SUB-Q 30 mg DAILY SOURAV Administration Folic Acid 1 mg 12/08/24 09:00 12/13/24 10:10 Folic Acid 1 Mg/0.2 Ml Inj IV PUSH 1 mg QAM SOURAV Administration Furosemide 20 mg 11/28/24 17:00 12/13/24 09:59 Furosemide Inj 40 Mg/4 Ml Vial IV PUSH 20 mg BID SOURAV Administration Glucagon 1 mg 11/06/24 07:40 Glucagon For Inj 1 Mg Vial IM PRN PRN Hypoglycemia Protocol Glucose 15 gm 11/06/24 07:40 Glucose Oral Gel 15 Gm Of Glucse In 37.5 Gm Tube PO PRN PRN Hypoglycemia Protocol Hydrochlorothiazide 25 mg 12/03/24 09:00 12/13/24 10:04 Hydrochlorothiazide 25 Mg Tablet PO 25 mg QAM SOURAV Administration Hydromorphone HCl 1 mg 12/06/24 01:25 12/08/24 21:23 Hydromorphone Hcl Inj (*Crx) 1 Mg/Ml Syr IV PUSH 1 mg Q3H PRN Administration Breakthrough Pain Dextrose 1,000 mls @ 100 mls/hr 11/06/24 07:40 Dextrose 5% 1,000 Ml IVPB PRN PRN Hypoglycemia Protocol Insulin Aspart 2 - 5 units 11/18/24 08:00 12/13/24 11:50 Insulin Aspart (*Bkc) 100 Units/Ml SUB-Q Not Given TIDWM SOURAV Protocol Levofloxacin 750 mg 12/12/24 19:00 12/12/24 17:26 Levofloxacin 750 Mg Tablet PO 750 mg Q48H SOURAV Administration Loperamide HCl 2 mg 12/01/24 10:59 12/01/24 15:17 Loperamide Hcl 2 Mg Capsule PO 2 mg PRN PRN Administration Diarrhea Metronidazole 500 mg 12/12/24 14:00 12/13/24 13:15 Metronidazole 500 Mg Tablet PO 500 mg Q8HR SOURAV Administration Mirtazapine 15 mg 11/30/24 21:00 12/12/24 21:56 Mirtazapine 15 Mg Tablet PO 15 mg HS SOURAV Administration Miscellaneous Information 1 each 12/14/24 00:01 Order Clarification XX 01/13/25 00:00 CLARIFY SOURAV Naloxone HCl 0.1 mg 12/08/24 16:21 Naloxone Hcl 0.4 Mg/Ml Vial IV PUSH Q2M PRN Opiate Reversal Ondansetron HCl 4 mg 12/08/24 16:21 12/11/24 17:14 Ondansetron Inj 4 Mg/2 Ml Vial IV PUSH 4 mg Q4H PRN Administration Nausea And Vomiting Pantoprazole Sodium 40 mg 12/08/24 21:00 12/13/24 09:54 Pantoprazole Sodium Iv 40 Mg Vial IV PUSH 40 mg Q12HR SOURAV Administration Phenyleph/Shark Oil/[place] Butter 1 supp 11/19/24 18:18 11/19/24 18:33 Phenylephrine Hcl/[place] Butter Supp.Rect (*Bkc) RECTAL 1 supp Q12HR PRN Administration Hemorrhoids Potassium Chloride 20 meq 12/06/24 09:00 12/13/24 10:04 Potassium Chloride 20 Meq Packet (For Liquid) PO 20 meq DAILY SOURAV Administration Psyllium Hydrophilic Mucilloid 1 packet 11/29/24 09:00 12/13/24 10:03 Psyllium Powder Packet PO 1 packet QAM SOURAV Administration Thiamine HCl 100 mg 12/08/24 09:00 12/13/24 09:59 Thiamine Hcl 200 Mg/2 Ml Vial IV PUSH 100 mg QAM SOURAV Administration Tramadol HCl 50 mg 12/06/24 01:23 12/11/24 20:16 Tramadol Hcl (*Crx) 50 Mg Tablet PO 50 mg Q6H PRN Administration Pain Rated 4-6 Radiology Results: ITS Impressions Head CT 11/05/24 20:50 IMPRESSION: 1. Moderate nonspecific cerebral white matter disease, which likely represents chronic small vessel ischemic disease. 2. 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 Upper GI Series 11/08/24 12:17 IMPRESSION: 1. Slow gastric emptying likely related to postoperative ileus. No extraluminal leakage of contrast. Abdomen X-Ray 11/14/24 11:13 IMPRESSION: Nonspecific, nonobstructive bowel gas pattern. Supportive devices unchanged in position. Bilateral pleural effusions. If clinical suspicion persists, CT examination of the abdomen and pelvis (with intravenous contrast) is suggested for further evaluation. Renal Ultrasound 11/19/24 16:17 IMPRESSION: No hydronephrosis or renal calculi. Findings suggesting medical renal disease. Free fluid within the pelvis. Venous Doppler Study 11/22/24 10:28 IMPRESSION: 1. No deep venous thrombosis in either lower limb. Renal Scan Nuclear Medicine 11/23/24 14:21 IMPRESSION: 1. Symmetric kidney function. 2. Delayed activity clearance from both kidneys with continually rising activity curves extending over the 30 minutes of observation and without associated hydronephrosis consistent with nonspecific, nonobstructive nephropathy. Modified Barium Swallow 11/26/24 10:39 IMPRESSION: 1. Trace laryngeal penetration. 2. Please refer to the speech therapy report for recommendations. Chest/Abdomen/Pelvis CT 12/02/24 14:47 IMPRESSION: Redemonstration of subcapsular fluid collections within both the liver and spleen (as detailed above) for which abscess formation is suspected. Both collections are amenable to percutaneous drainage. Bilateral large pleural effusions, with adjacent consolidation, decreased from prior. Catheter Placement CT 12/05/24 15:17 IMPRESSION: 1. Successful CT-guided subcapsular liver abscess drainage. 2. 2 mL opaque, moore fluid was sent for aerobic and anaerobic cultures. 3. Moderate-sized pleural effusions. 4. Moderate volume of ascites. Consider peritoneal drain placement. Chest X-Ray 12/08/24 12:28 IMPRESSION: 1. Stable airspace opacities at the lung bases, consistent with atelectasis versus pneumonia. 2. Stable small pleural effusions. 3. Emphysema. Abdomen/Pelvis CT 12/10/24 15:20 IMPRESSION: 1. Percutaneous abscess drains within a subcapsular fluid collections at the spleen and liver, both of which approximately half the volume of the prior study. 2. Persistent anasarca with extensive soft tissue edema and 3. Decrease in size of small bilateral pleural effusions. 4. Tree-in-bud opacities in the bilateral lower lobes consistent with pneumonia. Moderate amount of ascites throughout the abdomen and pelvis. Labs Labs: Laboratory Results - last 24 hr 12/12/24 12/12/24 12/13/24 16:48 21:40 07:55 POC Capillary Glucose 129 H 102 111 H 12/13/24 11:31 POC Capillary Glucose 121 H
[2024-12-13 17:03] LABS: Glucose Point of Care 129 mg/dl (65-105)
[2024-12-13] MEDS: MIRTAZAPINE 15 MG TABLET PO (21:03)
[2024-12-13 22:10] VITALS: BP 133/70; PULSE 71; RESP 18; TEMP 36.9; O2SAT 96
[2024-12-14] MEDS: metroNIDAZOLE 500 MG TABLET PO ×3 (05:03→20:26)
[2024-12-14 06:00] VITALS: BP 135/77; PULSE 70; RESP 18; TEMP 36.2; O2SAT 96
[2024-12-14 06:50] LABS: Hematocrit 25.3 % (42.0-52.0); Hemoglobin 7.8 g/dL (14.0-18.0); Mean Corpuscular HGB Conc 30.8 g/dl (32-36); Mean Corpuscular Hemoglobin 26.9 pg (26-34); Mean Corpuscular Volume 87.2 fl (80-100); Platelet Count Result 727 k/mm3 (150-375); Red Cell Distribution Width 14.4 % (11.5-14.5); White Blood Count 10.8 K/mm3 (4.5-10.0)
[2024-12-14 07:06] LABS: Anion Gap 9 mmol/L (4-12); Blood Urea Nitrogen 46 mg/dL (9-20); Calcium 8.5 mg/dL (8.4-10.2); Carbon Dioxide 36 mmol/L (22-30); Chloride 92 mmol/L (98-107); Estimated CRCL calculation 24 ml/min; Estimated Glomerular Filt Rate 42; Glucose 95 mg/dL (65-110); Potassium 3.2 mmol/L (3.4-5.0); Sodium 137 mmol/L (137-145)
[2024-12-14 08:03] LABS: Glucose Point of Care 102 mg/dl (65-105)
[2024-12-14] MEDS: FUROSEMIDE INJ 40 MG/4 ML VIAL 20 MG IV PUSH (10:07)
[2024-12-14] MEDS: PANTOPRAZOLE SODIUM IV 40 MG VIAL IV PUSH ×2 (10:07→20:26)
[2024-12-14] MEDS: THIAMINE HCL 200 MG/2 ML VIAL 100 MG IV PUSH (10:07)
[2024-12-14] MEDS: hydroCHLOROthiazide 25 MG TABLET PO (10:08)
[2024-12-14] MEDS: POTASSIUM CHLORIDE 20 MEQ PACKET (FOR LIQUID) PO (10:08)
[2024-12-14] MEDS: amLODIPine BESYLATE 10 MG TABLET PO (10:08)
[2024-12-14 10:17] LABS: Iron 49 ug/dL (49-181)
[2024-12-14 10:26] LABS: Percent Iron Saturation 28 % (20-50)
--- NOTE | 2024-12-14 11:42 | PM.IMPN ---
Progress Note: A&P Assessment and Plan (1) Metabolic acidosis: Code(s): E87.20 - Acidosis, unspecified Status: Acute Assessment and Plan: resolved (2) DEBI (acute kidney injury): Code(s): N17.9 - Acute kidney failure, unspecified Status: Acute Assessment and Plan: Creatinine seems to have stabilized at 1.7 Nephrology following (3) Perforated gastric ulcer: Qualifiers: Gastric ulcer chronicity: acute Qualified Code(s): K25.1 - Acute gastric ulcer with perforation Code(s): K25.5 - Chronic or unspecified gastric ulcer with perforation Status: Acute Assessment and Plan: Resolved Continue with Protonix and monitor hgb (4) COPD (chronic obstructive pulmonary disease): Code(s): J44.9 - Chronic obstructive pulmonary disease, unspecified Status: Acute Assessment and Plan: Stable on current medications. Will continue current treatment. (5) Sepsis: Code(s): A41.9 - Sepsis, unspecified organism Status: Acute Assessment and Plan: Completed antibiotics (6) Pneumonia: Code(s): J18.9 - Pneumonia, unspecified organism Status: Acute Assessment and Plan: Completed antibiotics pneumonia resolved Repeat CXR showed pulm edema and Pleural effusion now on lasix (7) Acute hypoxic respiratory failure: Code(s): J96.01 - Acute respiratory failure with hypoxia Status: Acute Assessment and Plan: resolved CXR showed pulm edema and pleural effusion continue Lasix 20mg bid and monitor renal function ECHO from june normal function monitor (8) Sepsis associated hypotension: Code(s): A41.9 - Sepsis, unspecified organism; I95.9 - Hypotension, unspecified Status: Acute Assessment and Plan: completed antibiotics (9) EtOH dependence: Code(s): F10.20 - Alcohol dependence, uncomplicated Status: Acute Assessment and Plan: Counselling given (10) Failure to thrive: Status: Acute Plan Consulted Hospice Perforated Gastric ulcer Patient underwent surgery on 11/05. Patient condition has been declining after the perforated gastric ulcer. Recently he was placed perc drain due to spleen and liver abscess. Failure to thrive Patient has multiple co-morbid condition including COPD,alcohol abuse, perforated ulcer, liver abscess,and recent surgical stress. Patient is unable to eat due to current events, multiple co-morbid conditions and prolonged hospitalization. Patient currently wants to go hospice and lives his rest of his with quality. Discussed with his brother who is POA. Diarrhea Resolved Stool culture and c diff negative Likely from pureed diet started on PRN imodium leukocytosis resolving, WBC 10.8 Surgery re-evaluated the re-demonstration of subcapsular fluid collections within both the liver and spleen for which abscess formation is suspected.. Underwent perc drain on 12/05 Repeat blood culture pending. CXR done several days ago showed pulm edema and patient has responded to lasix and off oxygen Lactic acid normal Repeated blood culture Subcapsular Spleen and Liver on percutaneous drainage repeat CT showed improving, half the prior volume. Gen surgery following Anemia Hb 7.8, isat 28 and Ferritin 506 Iron replete B12/Folate pending Code status DNR DVT prophylaxis on Sq Lovenox PT/OT following [place] [facility] evaluating Subjective Date/time seen: 12/14/24 11:42 Interval history: Patient comfortable at bedside Now awaiting placement with [place] [facility] Review of Systems Review of Systems: Pt with a dry throat not talking loudly ROS unobtainable: Yes unobtainable due to endotracheal tube, unobtainable due to medical condition and unobtainable due to mental status Exam Narrative: General: More alert toady Lungs/Chest: Trachea central Coarse BS B/L, No crackles or wheezing. Cardiac: RRR. Normal S1 S2. No murmurs Abdomen: Decreased but present bowel sounds. Extremities: No clubbing, cyanosis or edema. Warm : Shen in place Neurologic: Patient is able to move all 4 extremities spontaneously. Objective Data Vital Signs Vital Signs: Vital Signs - 24 hr 12/13/24 12:56 12/13/24 12:57 12/13/24 14:00 Temperature 97.9 F Pulse Rate 84 Respiratory Rate 14 Blood Pressure 101/72 Pulse Oximetry 95 Oxygen Delivery Room Air Room Air 12/13/24 20:00 12/13/24 22:10 12/14/24 06:00 Temperature 98.4 F 97.2 F L Pulse Rate 71 70 Respiratory Rate 18 18 Blood Pressure 133/70 135/77 Pulse Oximetry 96 96 Oxygen Delivery Room Air Intake/Output Intake/Output: Intake & Output 12/11/24 12/12/24 12/13/24 12/14/24 23:59 23:59 23:59 23:59 Intake Total 1020 550 240 540 Output Total 0 75 102 1000 Balance 1020 475 138 -460 Meds/Results Medications: Active Medications Generic Name Dose Route Start Last Admin Trade Name Freq PRN Reason Stop Dose Admin Acetaminophen 650 mg 11/14/24 15:21 12/13/24 10:10 Acetaminophen Elixir 325 Mg/10.15 Ml Udc FEED TUBE 650 mg Q4H PRN Administration Headache, Fever, Mild Pain Acetaminophen 650 mg 12/08/24 16:13 Acetaminophen 650 Mg Suppository RECTAL Q4H PRN Mild Pain (1-3) or Fever Albuterol 2.5 mg 12/08/24 16:23 Albuterol Sulfate Neb 2.5 Mg/3 Ml Inh INHALATION Q12HR PRN Shortness Of Breath Amlodipine Besylate 10 mg 12/02/24 09:00 12/14/24 10:08 Amlodipine Besylate 10 Mg Tablet PO 10 mg DAILY SOURAV Administration Dextrose 12.5 gm 11/06/24 07:40 11/21/24 16:58 Dextrose 50% 25 Gm/50 Ml Syringe IV PUSH 12.5 gm PRN PRN Administration Hypoglycemia Protocol Enoxaparin Sodium 30 mg 11/29/24 09:00 12/13/24 09:52 Enoxaparin 30 Mg/0.3 Ml Syringe SUB-Q 30 mg DAILY SOURAV Administration Folic Acid 1 mg 12/08/24 09:00 12/13/24 10:10 Folic Acid 1 Mg/0.2 Ml Inj IV PUSH 1 mg QAM SOURAV Administration Furosemide 20 mg 11/28/24 17:00 12/14/24 10:07 Furosemide Inj 40 Mg/4 Ml Vial IV PUSH 20 mg BID SOURAV Administration Glucagon 1 mg 11/06/24 07:40 Glucagon For Inj 1 Mg Vial IM PRN PRN Hypoglycemia Protocol Glucose 15 gm 11/06/24 07:40 Glucose Oral Gel 15 Gm Of Glucse In 37.5 Gm Tube PO PRN PRN Hypoglycemia Protocol Hydrochlorothiazide 25 mg 12/03/24 09:00 12/14/24 10:08 Hydrochlorothiazide 25 Mg Tablet PO 25 mg QAM SOURAV Administration Hydromorphone HCl 1 mg 12/06/24 01:25 12/08/24 21:23 Hydromorphone Hcl Inj (*Crx) 1 Mg/Ml Syr IV PUSH 1 mg Q3H PRN Administration Breakthrough Pain Dextrose 1,000 mls @ 100 mls/hr 11/06/24 07:40 Dextrose 5% 1,000 Ml IVPB PRN PRN Hypoglycemia Protocol Insulin Aspart 2 - 5 units 11/18/24 08:00 12/14/24 07:52 Insulin Aspart (*Bkc) 100 Units/Ml SUB-Q Not Given [facility] Protocol Levofloxacin 750 mg 12/12/24 19:00 12/12/24 17:26 Levofloxacin 750 Mg Tablet PO 750 mg Q48H SOURAV Administration Loperamide HCl 2 mg 12/01/24 10:59 12/01/24 15:17 Loperamide Hcl 2 Mg Capsule PO 2 mg PRN PRN Administration Diarrhea Metronidazole 500 mg 12/12/24 14:00 12/14/24 05:03 Metronidazole 500 Mg Tablet PO 500 mg Q8HR SOURAV Administration Mirtazapine 15 mg 11/30/24 21:00 12/13/24 21:03 Mirtazapine 15 Mg Tablet PO 15 mg HS SOURAV Administration Naloxone HCl 0.1 mg 12/08/24 16:21 Naloxone Hcl 0.4 Mg/Ml Vial IV PUSH Q2M PRN Opiate Reversal Ondansetron HCl 4 mg 12/08/24 16:21 12/11/24 17:14 Ondansetron Inj 4 Mg/2 Ml Vial IV PUSH 4 mg Q4H PRN Administration Nausea And Vomiting Pantoprazole Sodium 40 mg 12/08/24 21:00 12/14/24 10:07 Pantoprazole Sodium Iv 40 Mg Vial IV PUSH 40 mg Q12HR SOURAV Administration Phenyleph/Shark Oil/[place] Butter 1 supp 11/19/24 18:18 11/19/24 18:33 Phenylephrine Hcl/[place] Butter Supp.Rect (*Bkc) RECTAL 1 supp Q12HR PRN Administration Hemorrhoids Potassium Chloride 20 meq 12/06/24 09:00 12/14/24 10:08 Potassium Chloride 20 Meq Packet (For Liquid) PO 20 meq DAILY SOURAV Administration Psyllium Hydrophilic Mucilloid 1 packet 11/29/24 09:00 12/14/24 10:09 Psyllium Powder Packet PO Not Given QAM SOURAV Thiamine HCl 100 mg 12/08/24 09:00 12/14/24 10:07 Thiamine Hcl 200 Mg/2 Ml Vial IV PUSH 100 mg QAM SOURAV Administration Tramadol HCl 50 mg 12/06/24 01:23 12/11/24 20:16 Tramadol Hcl (*Crx) 50 Mg Tablet PO 50 mg Q6H PRN Administration Pain Rated 4-6 Radiology Results: ITS Impressions Head CT 11/05/24 20:50 IMPRESSION: 1. Moderate nonspecific cerebral white matter disease, which likely represents chronic small vessel ischemic disease. 2. 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 Upper GI Series 11/08/24 12:17 IMPRESSION: 1. Slow gastric emptying likely related to postoperative ileus. No extraluminal leakage of contrast. Abdomen X-Ray 11/14/24 11:13 IMPRESSION: Nonspecific, nonobstructive bowel gas pattern. Supportive devices unchanged in position. Bilateral pleural effusions. If clinical suspicion persists, CT examination of the abdomen and pelvis (with intravenous contrast) is suggested for further evaluation. Renal Ultrasound 11/19/24 16:17 IMPRESSION: No hydronephrosis or renal calculi. Findings suggesting medical renal disease. Free fluid within the pelvis. Venous Doppler Study 11/22/24 10:28 IMPRESSION: 1. No deep venous thrombosis in either lower limb. Renal Scan Nuclear Medicine 11/23/24 14:21 IMPRESSION: 1. Symmetric kidney function. 2. Delayed activity clearance from both kidneys with continually rising activity curves extending over the 30 minutes of observation and without associated hydronephrosis consistent with nonspecific, nonobstructive nephropathy. Modified Barium Swallow 11/26/24 10:39 IMPRESSION: 1. Trace laryngeal penetration. 2. Please refer to the speech therapy report for recommendations. Chest/Abdomen/Pelvis CT 12/02/24 14:47 IMPRESSION: Redemonstration of subcapsular fluid collections within both the liver and spleen (as detailed above) for which abscess formation is suspected. Both collections are amenable to percutaneous drainage. Bilateral large pleural effusions, with adjacent consolidation, decreased from prior. Catheter Placement CT 12/05/24 15:17 IMPRESSION: 1. Successful CT-guided subcapsular liver abscess drainage. 2. 2 mL opaque, moore fluid was sent for aerobic and anaerobic cultures. 3. Moderate-sized pleural effusions. 4. Moderate volume of ascites. Consider peritoneal drain placement. Chest X-Ray 12/08/24 12:28 IMPRESSION: 1. Stable airspace opacities at the lung bases, consistent with atelectasis versus pneumonia. 2. Stable small pleural effusions. 3. Emphysema. Abdomen/Pelvis CT 12/10/24 15:20 IMPRESSION: 1. Percutaneous abscess drains within a subcapsular fluid collections at the spleen and liver, both of which approximately half the volume of the prior study. 2. Persistent anasarca with extensive soft tissue edema and 3. Decrease in size of small bilateral pleural effusions. 4. Tree-in-bud opacities in the bilateral lower lobes consistent with pneumonia. Moderate amount of ascites throughout the abdomen and pelvis. Labs Labs: Laboratory Results - last 24 hr 12/13/24 12/13/24 12/14/24 11:31 16:40 06:24 WBC RBC Hgb Hct MCV MCH MCHC RDW Plt Count MPV Sodium Potassium Chloride Carbon Dioxide Anion Gap BUN Creatinine Estim Creat Clear Calc Estimated GFR Glucose POC Capillary Glucose 121 H 129 H Calcium Iron 49 TIBC 174 L % Saturation 28 Ferritin 506.00 H 12/14/24 12/14/24 06:26 07:52 WBC 10.8 H RBC 2.90 L Hgb 7.8 L Hct 25.3 L MCV 87.2 MCH 26.9 MCHC 30.8 L RDW 14.4 Plt Count 727 H MPV 10.0 Sodium 137 Potassium 3.2 L Chloride 92 L Carbon Dioxide 36 H Anion Gap 9 BUN 46 H Creatinine 1.62 H Estim Creat Clear Calc 24 Estimated GFR 42 L Glucose 95 POC Capillary Glucose 102 Calcium 8.5 Iron TIBC % Saturation Ferritin Quality VTE Prophylaxis VTE prophylaxis: mechanical ordered and pharmacologic ordered
[2024-12-14 12:16] LABS: Glucose Point of Care 162 mg/dl (65-105)
[2024-12-14] MEDS: ONDANSETRON INJ 4 MG/2 ML VIAL IV PUSH (13:07)
[2024-12-14 13:28] VITALS: BP 89/63
--- NOTE | 2024-12-14 13:33 | PCNFU ---
Nutrition Follow-Up Complete: Alerted GI function as related to perforated gastric ulcer as evidenced by NPO. Meet estimated nutritional needs. - Progressing slowly on current diet Goal: Pt current nutrition is Soft & bite sized L6, Ensure Compact TID (220 kcal, 9 g protein each). Nutrition recommendation: No new nutrition recommendations. Continue with current nutrition care plan and orders Last recorded weight is 55.6 kg. Bowel Motility: +1 BM 12/14/24 Labs Reviewed: Hgb 7.8, Hct 25.3, K+ 3.2, BUN 46, Cre 1.62 Meds Noted: Thiamine, folic acid, protonix Skin: No pressure Additional Notes: Intakes improving somewhat on L6 diet. Pt declined hospice and awaiting discharge to [place] SN[facility] facility. Will monitor weight, labs, skin, diet orders, meds daily in ICU and reassessing every Tuesday and Tuesday.
[2024-12-14 13:41] LABS: Folic Acid > 20.0 ng/mL (2.76->20)
[2024-12-14] MEDS: SODIUM CHLORIDE 0.9% IV 500 ML 999 ML IV CONT (13:41)
[2024-12-14] MEDS: ENOXAPARIN 30 MG/0.3 ML SYRINGE SUB-Q (13:43)
[2024-12-14 14:00] VITALS: BP 104/67; PULSE 75; RESP 14; TEMP 36.4; O2SAT 94
[2024-12-14] MEDS: POTASSIUM CHLORIDE INJ 40 MEQ in SODIUM CHLORIDE 0.9% IV 500 ML 130 MEQ IVPB (14:34)
[2024-12-14] MEDS: FOLIC ACID 1 MG/0.2 ML INJ IV PUSH (14:39)
--- NOTE | 2024-12-14 15:07 | PC.NURSE ---
This RN received phone call from Chico Lemos on 12/14/24 at 1500 that he, the POA for the pt, wanted his brother, Rupert Lemos, to be a full code again. Second nurse verification performed by Chasidy Bhat RN. Shannan Wilson RN and MD Niraj made aware. Purple clasp removed and DNR erased on her board and replaced with full code
[2024-12-14 17:02] LABS: Glucose Point of Care 190 mg/dl (65-105)
[2024-12-14] MEDS: levoFLOXacin 750 MG TABLET PO (18:51)
[2024-12-14] MEDS: MIRTAZAPINE 15 MG TABLET PO (20:26)
[2024-12-14 20:52] LABS: Glucose Point of Care 140 mg/dl (65-105)
[2024-12-14 22:00] VITALS: BP 115/56; PULSE 75; RESP 18; TEMP 36.8; O2SAT 97
[2024-12-15] MEDS: metroNIDAZOLE 500 MG TABLET PO ×2 (05:48→20:48)
[2024-12-15 06:00] VITALS: BP 129/68; PULSE 70; RESP 18; TEMP 36.7; O2SAT 96
[2024-12-15 06:55] LABS: Basophils Absolute Auto 0.1 K/mm3 (0.0-0.1); Basophils Percent Auto 0.6 % (0.2-1.2); Eosinophils Absolute Auto 0.1 K/mm3 (0-0.3); Eosinophils Percent Auto 1.3 % (0-4.4); Hemoglobin 8.1 g/dL (14.0-18.0); Immature Granulocyte Absolute 0.06 K/mm3 (0.00-0.031); Immature Granulocyte Percent A 0.6 % (0-0.5); Lymphocytes Absolute Auto 1.87 K/mm3 (0.9-3.2); Lymphocytes Percent Auto 18.9 % (18.3-44.2); Mean Corpuscular HGB Conc 31.2 g/dl (32-36); Mean Corpuscular Hemoglobin 27.5 pg (26-34); Mean Corpuscular Volume 88.1 fl (80-100); Mean Platelet Volume 9.9 fl (7.4-10.4); Monocytes Absolute Auto 0.8 K/mm3 (0.1-0.6); Monocytes Percent Auto 7.8 % (2.6-8.5); Neutrophils Percent Auto 70.8 % (45.5-73.1); Platelet Count Result 732 k/mm3 (150-375); Red Blood Count 2.95 M/mm3 (4.6-6.20); Red Cell Distribution Width 14.6 % (11.5-14.5); White Blood Count 9.9 K/mm3 (4.5-10.0)
[2024-12-15 07:19] LABS: Alanine Aminotransferase 15 U/L (6-50); Albumin Level 3.4 g/dL (3.5-5.1); Alkaline Phosphatase 148 U/L (38-126); Anion Gap 7 mmol/L (4-12); Aspartate Amino Transferase 38 U/L (17-59); Bilirubin,Total 0.4 mg/dL (0.2-1.3); Blood Urea Nitrogen 42 mg/dL (9-20); Calcium 8.7 mg/dL (8.4-10.2); Carbon Dioxide 35 mmol/L (22-30); Chloride 96 mmol/L (98-107); Estimated CRCL calculation 32 ml/min; Estimated Glomerular Filt Rate 45; Glucose 98 mg/dL (65-110); Magnesium 1.7 mg/dL (1.6-2.3); Potassium 3.6 mmol/L (3.4-5.0); Sodium 138 mmol/L (137-145)
[2024-12-15 08:58] LABS: Glucose Point of Care 94 mg/dl (65-105)
[2024-12-15] MEDS: FOLIC ACID 1 MG/0.2 ML INJ IV PUSH (10:19)
[2024-12-15] MEDS: PANTOPRAZOLE SODIUM IV 40 MG VIAL IV PUSH ×2 (10:20→20:48)
[2024-12-15] MEDS: THIAMINE HCL 200 MG/2 ML VIAL 100 MG IV PUSH (10:20)
[2024-12-15] MEDS: POTASSIUM CHLORIDE 20 MEQ PACKET (FOR LIQUID) PO (10:20)
[2024-12-15] MEDS: PSYLLIUM POWDER PACKET 1 PACKET PO (10:20)
[2024-12-15 12:12] LABS: Glucose Point of Care 105 mg/dl (65-105)
[2024-12-15 14:00] VITALS: BP 121/69; PULSE 78; RESP 20; TEMP 36.7; O2SAT 98
--- NOTE | 2024-12-15 15:33 | P.PNIM_ITS ---
Progress Note: A&P Assessment and Plan (1) Metabolic acidosis: Code(s): E87.20 - Acidosis, unspecified Status: Acute Assessment and Plan: resolved (2) DEBI (acute kidney injury): Code(s): N17.9 - Acute kidney failure, unspecified Status: Acute Assessment and Plan: Creatinine seems to have stabilized at 1.54 Nephrology following (3) Perforated gastric ulcer: Qualifiers: Gastric ulcer chronicity: acute Qualified Code(s): K25.1 - Acute gastric ulcer with perforation Code(s): K25.5 - Chronic or unspecified gastric ulcer with perforation Status: Acute Assessment and Plan: Resolved Continue with Protonix and monitor hgb (4) COPD (chronic obstructive pulmonary disease): Code(s): J44.9 - Chronic obstructive pulmonary disease, unspecified Status: Acute Assessment and Plan: Stable on current medications. Will continue current treatment. (5) Sepsis: Code(s): A41.9 - Sepsis, unspecified organism Status: Acute Assessment and Plan: Completed antibiotics (6) Pneumonia: Code(s): J18.9 - Pneumonia, unspecified organism Status: Acute Assessment and Plan: Completed antibiotics pneumonia resolved Repeat CXR showed pulm edema and Pleural effusion now on lasix (7) Acute hypoxic respiratory failure: Code(s): J96.01 - Acute respiratory failure with hypoxia Status: Acute Assessment and Plan: resolved CXR showed pulm edema and pleural effusion continue Lasix 20mg bid and monitor renal function ECHO from june normal function monitor (8) Sepsis associated hypotension: Code(s): A41.9 - Sepsis, unspecified organism; I95.9 - Hypotension, unspecified Status: Acute Assessment and Plan: completed antibiotics (9) EtOH dependence: Code(s): F10.20 - Alcohol dependence, uncomplicated Status: Acute Assessment and Plan: Counselling given (10) Failure to thrive: Status: Acute Plan Consulted Hospice Perforated Gastric ulcer Patient underwent surgery on 11/05. Patient condition has been declining after the perforated gastric ulcer. Recently he was placed perc drain due to spleen and liver abscess. Failure to thrive Patient has multiple co-morbid condition including COPD,alcohol abuse, perforated ulcer, liver abscess,and recent surgical stress. encourage to eat, on Dronabinol Discussed with his brother who is POA. Diarrhea Resolved Stool culture and c diff negative Likely from pureed diet started on PRN imodium leukocytosis resolved, WBC 9.9 Surgery re-evaluated the re-demonstration of subcapsular fluid collections wi thin both the liver and spleen for which abscess formation is suspected.. Underwent perc drain on 12/05 Repeat blood culture pending. CXR done several days ago showed pulm edema and patient has responded to lasix and off oxygen Lactic acid normal Repeated blood culture Subcapsular Spleen and Liver on percutaneous drainage repeat CT showed improving, half the prior volume. Gen surgery following Anemia Hb 8.1, isat 28 and Ferritin 506 Iron replete B12/Folate pending Liver and splenic abscess resolving repeat CT showed marked drainage Surgery removed drains day 02/01 Levaquin and Flagyl Code status DNR DVT prophylaxis on Sq Lovenox PT/OT following [facility] evaluating Subjective Date/time seen: 12/15/24 15:33 Interval history: Patient comfortable at bedside Now awaiting placement with [facility] Review of Systems Review of Systems: Pt with a dry throat not talking loudly ROS unobtainable: Yes unobtainable due to endotracheal tube, unobtainable due to medical condition and unobtainable due to mental status Exam Narrative: General: More alert toady Lungs/Chest: Trachea central Coarse BS B/L, No crackles or wheezing. Cardiac: RRR. Normal S1 S2. No murmurs Abdomen: Decreased but present bowel sounds. Extremities: No clubbing, cyanosis or edema. Warm : Shen in place Neurologic: Patient is able to move all 4 extremities spontaneously. Objective Data Vital Signs Vital Signs: Vital Signs - 24 hr 12/14/24 20:00 12/14/24 22:00 12/15/24 06:00 Temperature 98.3 F 98.0 F Pulse Rate 75 70 Respiratory Rate 18 18 Blood Pressure 115/56 L 129/68 Pulse Oximetry 97 96 Oxygen Delivery Room Air Intake/Output Intake/Output: Intake & Output 12/12/24 12/13/24 12/14/24 12/15/24 23:59 23:59 23:59 23:59 Intake Total 384 463 6040 400 Output Total 75 102 1000 Balance 475 138 370 400 Meds/Results Medications: Active Medications Generic Name Dose Route Start Last Admin Trade Name Freq PRN Reason Stop Dose Admin Acetaminophen 650 mg 11/14/24 15:21 12/13/24 10:10 Acetaminophen Elixir 325 Mg/10.15 Ml Udc FEED TUBE 650 mg Q4H PRN Administration Headache, Fever, Mild Pain Acetaminophen 650 mg 12/08/24 16:13 Acetaminophen 650 Mg Suppository RECTAL Q4H PRN Mild Pain (1-3) or Fever Albuterol 2.5 mg 12/08/24 16:23 Albuterol Sulfate Neb 2.5 Mg/3 Ml Inh INHALATION Q12HR PRN Shortness Of Breath Amlodipine Besylate 10 mg 12/02/24 09:00 12/14/24 10:08 Amlodipine Besylate 10 Mg Tablet PO 10 mg DAILY SOURAV Administration Dextrose 12.5 gm 11/06/24 07:40 11/21/24 16:58 Dextrose 50% 25 Gm/50 Ml Syringe IV PUSH 12.5 gm PRN PRN Administration Hypoglycemia Protocol Enoxaparin Sodium 30 mg 11/29/24 09:00 12/15/24 10:19 Enoxaparin 30 Mg/0.3 Ml Syringe SUB-Q 30 mg DAILY SOURAV Administration Folic Acid 1 mg 12/08/24 09:00 12/15/24 10:19 Folic Acid 1 Mg/0.2 Ml Inj IV PUSH 1 mg QAM SOURAV Administration Furosemide 20 mg 11/28/24 17:00 12/14/24 17:43 Furosemide Inj 40 Mg/4 Ml Vial IV PUSH Not Given BID SOURAV Glucagon 1 mg 11/06/24 07:40 Glucagon For Inj 1 Mg Vial IM PRN PRN Hypoglycemia Protocol Glucose 15 gm 11/06/24 07:40 Glucose Oral Gel 15 Gm Of Glucse In 37.5 Gm Tube PO PRN PRN Hypoglycemia Protocol Hydrochlorothiazide 25 mg 12/03/24 09:00 12/14/24 10:08 Hydrochlorothiazide 25 Mg Tablet PO 25 mg QAM SOURAV Administration Hydromorphone HCl 1 mg 12/06/24 01:25 12/08/24 21:23 Hydromorphone Hcl Inj (*Crx) 1 Mg/Ml Syr IV PUSH 1 mg Q3H PRN Administration Breakthrough Pain Dextrose 1,000 mls @ 100 mls/hr 11/06/24 07:40 Dextrose 5% 1,000 Ml IVPB PRN PRN Hypoglycemia Protocol Insulin Aspart 2 - 5 units 11/18/24 08:00 12/15/24 12:17 Insulin Aspart (*Bkc) 100 Units/Ml SUB-Q Not Given TIDWM SOURAV Protocol Levofloxacin 750 mg 12/12/24 19:00 12/14/24 18:51 Levofloxacin 750 Mg Tablet PO 750 mg Q48H SOURAV Administration Loperamide HCl 2 mg 12/01/24 10:59 12/01/24 15:17 Loperamide Hcl 2 Mg Capsule PO 2 mg PRN PRN Administration Diarrhea Metronidazole 500 mg 12/12/24 14:00 12/15/24 05:48 Metronidazole 500 Mg Tablet PO 500 mg Q8HR SOURAV Administration Mirtazapine 15 mg 11/30/24 21:00 12/14/24 20:26 Mirtazapine 15 Mg Tablet PO 15 mg HS SOURAV Administration Miscellaneous Information 0 each 12/15/24 00:01 12/15/24 04:04 Hydromorphone & Tramadol Orders Will Auto 12/16 Early Am. XX 01/14/25 00:00 Not Given CLARIFY SOURAV Naloxone HCl 0.1 mg 12/08/24 16:21 Naloxone Hcl 0.4 Mg/Ml Vial IV PUSH Q2M PRN Opiate Reversal Ondansetron HCl 4 mg 12/08/24 16:21 12/14/24 13:07 Ondansetron Inj 4 Mg/2 Ml Vial IV PUSH 4 mg Q4H PRN Administration Nausea And Vomiting Pantoprazole Sodium 40 mg 12/08/24 21:00 12/15/24 10:20 Pantoprazole Sodium Iv 40 Mg Vial IV PUSH 40 mg Q12HR SOURAV Administration Phenyleph/Shark Oil/[place] Butter 1 supp 11/19/24 18:18 11/19/24 18:33 Phenylephrine Hcl/[place] Butter Supp.Rect (*Bkc) RECTAL 1 supp Q12HR PRN Administration Hemorrhoids Potassium Chloride 20 meq 12/06/24 09:00 12/15/24 10:20 Potassium Chloride 20 Meq Packet (For Liquid) PO 20 meq DAILY SOURAV Administration Psyllium Hydrophilic Mucilloid 1 packet 11/29/24 09:00 12/15/24 10:20 Psyllium Powder Packet PO 1 packet QAM SOURAV Administration Thiamine HCl 100 mg 12/08/24 09:00 12/15/24 10:20 Thiamine Hcl 200 Mg/2 Ml Vial IV PUSH 100 mg QAM SOURAV Administration Tramadol HCl 50 mg 12/06/24 01:23 12/11/24 20:16 Tramadol Hcl (*Crx) 50 Mg Tablet PO 50 mg Q6H PRN Administration Pain Rated 4-6 Radiology Results: ITS Impressions Head CT 11/05/24 20:50 IMPRESSION: 1. Moderate nonspecific cerebral white matter disease, which likely represents chronic small vessel ischemic disease. 2. 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 Upper GI Series 11/08/24 12:17 IMPRESSION: 1. Slow gastric emptying likely related to postoperative ileus. No extraluminal leakage of contrast. Abdomen X-Ray 11/14/24 11:13 IMPRESSION: Nonspecific, nonobstructive bowel gas pattern. Supportive devices unchanged in position. Bilateral pleural effusions. If clinical suspicion persists, CT examination of the abdomen and pelvis (with intravenous contrast) is suggested for further evaluation. Renal Ultrasound 11/19/24 16:17 IMPRESSION: No hydronephrosis or renal calculi. Findings suggesting medical renal disease. Free fluid within the pelvis. Venous Doppler Study 11/22/24 10:28 IMPRESSION: 1. No deep venous thrombosis in either lower limb. Renal Scan Nuclear Medicine 11/23/24 14:21 IMPRESSION: 1. Symmetric kidney function. 2. Delayed activity clearance from both kidneys with continually rising activity curves extending over the 30 minutes of observation and without associated hydronephrosis consistent with nonspecific, nonobstructive nephropathy. Modified Barium Swallow 11/26/24 10:39 IMPRESSION: 1. Trace laryngeal penetration. 2. Please refer to the speech therapy report for recommendations. Chest/Abdomen/Pelvis CT 12/02/24 14:47 IMPRESSION: Redemonstration of subcapsular fluid collections within both the liver and spleen (as detailed above) for which abscess formation is suspected. Both collections are amenable to percutaneous drainage. Bilateral large pleural effusions, with adjacent consolidation, decreased from prior. Catheter Placement CT 12/05/24 15:17 IMPRESSION: 1. Successful CT-guided subcapsular liver abscess drainage. 2. 2 mL opaque, moore fluid was sent for aerobic and anaerobic cultures. 3. Moderate-sized pleural effusions. 4. Moderate volume of ascites. Consider peritoneal drain placement. Chest X-Ray 12/08/24 12:28 IMPRESSION: 1. Stable airspace opacities at the lung bases, consistent with atelectasis versus pneumonia. 2. Stable small pleural effusions. 3. Emphysema. Abdomen/Pelvis CT 12/10/24 15:20 IMPRESSION: 1. Percutaneous abscess drains within a subcapsular fluid collections at the spleen and liver, both of which approximately half the volume of the prior study. 2. Persistent anasarca with extensive soft tissue edema and 3. Decrease in size of small bilateral pleural effusions. 4. Tree-in-bud opacities in the bilateral lower lobes consistent with pneumonia. Moderate amount of ascites throughout the abdomen and pelvis. Labs Labs: Laboratory Results - last 24 hr 12/14/24 12/14/24 12/15/24 16:47 20:00 06:35 WBC 9.9 RBC 2.95 L Hgb 8.1 L Hct 26.0 L MCV 88.1 MCH 27.5 MCHC 31.2 L RDW 14.6 H Plt Count 732 H MPV 9.9 Immature Gran % (Auto) 0.6 H Neut % (Auto) 70.8 Lymph % (Auto) 18.9 [place] % (Auto) 7.8 Eos % (Auto) 1.3 Baso % (Auto) 0.6 Lymph # (Auto) 1.87 [place] # (Auto) 0.8 H Eos # (Auto) 0.1 Baso # (Auto) 0.1 Abs Immat Gran (auto) 0.06 H Absolute Neuts (auto) 7.0 H Absolute Nucleated RBC 0.000 Nucleated RBC % 0.0 Sodium 138 Potassium 3.6 Chloride 96 L Carbon Dioxide 35 H Anion Gap 7 BUN 42 H Creatinine 1.54 H Estim Creat Clear Calc 32 Estimated GFR 45 L Glucose 98 POC Capillary Glucose 190 H 140 H Calcium 8.7 Magnesium 1.7 Total Bilirubin 0.4 AST 38 ALT 15 Alkaline Phosphatase 148 H Total Protein 7.0 Albumin 3.4 L 12/15/24 12/15/24 08:22 11:57 WBC RBC Hgb Hct MCV MCH MCHC RDW Plt Count MPV Immature Gran % (Auto) Neut % (Auto) Lymph % (Auto) [place] % (Auto) Eos % (Auto) Baso % (Auto) Lymph # (Auto) [place] # (Auto) Eos # (Auto) Baso # (Auto) Abs Immat Gran (auto) Absolute Neuts (auto) Absolute Nucleated RBC Nucleated RBC % Sodium Potassium Chloride Carbon Dioxide Anion Gap BUN Creatinine Estim Creat Clear Calc Estimated GFR Glucose POC Capillary Glucose 94 105 Calcium Magnesium Total Bilirubin AST ALT Alkaline Phosphatase Total Protein Albumin Quality VTE Prophylaxis VTE prophylaxis: mechanical ordered and pharmacologic ordered
[2024-12-15 17:09] LABS: Glucose Point of Care 153 mg/dl (65-105)
[2024-12-15 20:00] VITALS: PULSE 78; RESP 20; O2SAT 98
[2024-12-15] MEDS: MIRTAZAPINE 15 MG TABLET PO (20:47)
[2024-12-15 22:00] VITALS: BP 116/73; PULSE 76; RESP 20; TEMP 36.9; O2SAT 99
[2024-12-15 22:09] LABS: Glucose Point of Care 139 mg/dl (65-105)
[2024-12-16 06:00] VITALS: BP 124/78; PULSE 72; RESP 20; TEMP 37.1; O2SAT 99
[2024-12-16 08:17] LABS: Glucose Point of Care 95 mg/dl (65-105)
[2024-12-16] MEDS: PANTOPRAZOLE SODIUM IV 40 MG VIAL IV PUSH ×2 (08:28→21:47)
[2024-12-16] MEDS: THIAMINE HCL 200 MG/2 ML VIAL 100 MG IV PUSH (08:28)
[2024-12-16] MEDS: FOLIC ACID 1 MG/0.2 ML INJ IV PUSH (08:29)
[2024-12-16] MEDS: ENOXAPARIN 30 MG/0.3 ML SYRINGE SUB-Q (08:29)
[2024-12-16] MEDS: POTASSIUM CHLORIDE 20 MEQ PACKET (FOR LIQUID) PO (08:29)
[2024-12-16] MEDS: droNABinol (*CRX) 2.5 MG CAPSULE 10 MG PO ×2 (08:58→19:18)
--- NOTE | 2024-12-16 09:33 | PM.IMPN ---
Progress Note: A&P Assessment and Plan (1) Metabolic acidosis: Code(s): E87.20 - Acidosis, unspecified Status: Acute Assessment and Plan: resolved (2) DEBI (acute kidney injury): Code(s): N17.9 - Acute kidney failure, unspecified Status: Acute Assessment and Plan: Creatinine seems to have stabilized at 1.54 Nephrology following (3) Perforated gastric ulcer: Qualifiers: Gastric ulcer chronicity: acute Qualified Code(s): K25.1 - Acute gastric ulcer with perforation Code(s): K25.5 - Chronic or unspecified gastric ulcer with perforation Status: Acute Assessment and Plan: Resolved Continue with Protonix and monitor hgb (4) COPD (chronic obstructive pulmonary disease): Code(s): J44.9 - Chronic obstructive pulmonary disease, unspecified Status: Acute Assessment and Plan: Stable on current medications. Will continue current treatment. (5) Sepsis: Code(s): A41.9 - Sepsis, unspecified organism Status: Acute Assessment and Plan: Completed antibiotics (6) Pneumonia: Code(s): J18.9 - Pneumonia, unspecified organism Status: Acute Assessment and Plan: Completed antibiotics pneumonia resolved Repeat CXR showed pulm edema and Pleural effusion now on lasix (7) Acute hypoxic respiratory failure: Code(s): J96.01 - Acute respiratory failure with hypoxia Status: Acute Assessment and Plan: resolved CXR showed pulm edema and pleural effusion continue Lasix 20mg bid and monitor renal function ECHO from june normal function monitor (8) Sepsis associated hypotension: Code(s): A41.9 - Sepsis, unspecified organism; I95.9 - Hypotension, unspecified Status: Acute Assessment and Plan: completed antibiotics (9) EtOH dependence: Code(s): F10.20 - Alcohol dependence, uncomplicated Status: Acute Assessment and Plan: Counselling given (10) Failure to thrive: Status: Acute Plan Consulted Hospice Perforated Gastric ulcer Patient underwent surgery on 11/05. Patient condition has been declining after the perforated gastric ulcer. s/p perc drain due to spleen and liver abscess. Failure to thrive Patient has multiple co-morbid condition including COPD,alcohol abuse, perforated ulcer, liver abscess,and recent surgical stress. encourage to eat, on Dronabinol Discussed with his brother who is POA. Diarrhea Resolved Stool culture and c diff negative Likely from pureed diet started on PRN imodium leukocytosis resolved, WBC 9.9 Surgery re-evaluated the re-demonstration of subcapsular fluid collections within both the liver and spleen for which abscess formation is suspected.. Underwent perc drain on 12/05 Repeat blood culture pending. CXR done several days ago showed pulm edema and patient has responded to lasix and off oxygen Lactic acid normal Repeated blood culture Subcapsular Spleen and Liver on percutaneous drainage repeat CT showed improving, half the prior volume. Gen surgery following Anemia Hb 8.1, isat 28 and Ferritin 506 Iron replete B12/Folate wnl Liver and splenic abscess resolving repeat CT showed marked drainage Surgery removed drains day 03/04 Levaquin and Flagyl Code status DNR DVT prophylaxis on Sq [facility] Subjective Date/time seen: 12/16/24 09:33 Interval history: Patient comfortable at bedside eating breakfast at the time of this encounter Review of Systems Review of Systems: Pt with a dry throat not talking loudly ROS unobtainable: Yes unobtainable due to endotracheal tube, unobtainable due to medical condition and unobtainable due to mental status Exam Narrative: General: More alert toady Lungs/Chest: Trachea central Coarse BS B/L, No crackles or wheezing. Cardiac: RRR. Normal S1 S2. No murmurs Abdomen: Decreased but present bowel sounds. Extremities: No clubbing, cyanosis or edema. Warm : Shen in place Neurologic: Patient is able to move all 4 extremities spontaneously. Objective Data Vital Signs Vital Signs: Vital Signs - 24 hr 12/15/24 14:00 12/15/24 20:00 12/15/24 22:00 Temperature 98.1 F 98.5 F Pulse Rate 78 78 76 Respiratory Rate 20 20 20 Blood Pressure 121/69 116/73 Pulse Oximetry 98 98 99 Oxygen Delivery Room Air Fraction of Inspired Oxygen 12/16/24 06:00 Temperature 98.8 F Pulse Rate 72 Respiratory Rate 20 Blood Pressure 124/78 Pulse Oximetry 99 Oxygen Delivery Fraction of Inspired Oxygen Intake/Output Intake/Output: Intake & Output 12/13/24 12/14/24 12/15/24 12/16/24 23:59 23:59 23:59 23:59 Intake Total 240 1370 1490 1286 Output Total 102 1000 1 Balance 320 592 0690 1286 Meds/Results Medications: Active Medications Generic Name Dose Route Start Last Admin Trade Name Freq PRN Reason Stop Dose Admin Acetaminophen 650 mg 11/14/24 15:21 12/13/24 10:10 Acetaminophen Elixir 325 Mg/10.15 Ml Udc FEED TUBE 650 mg Q4H PRN Administration Headache, Fever, Mild Pain Acetaminophen 650 mg 12/08/24 16:13 Acetaminophen 650 Mg Suppository RECTAL Q4H PRN Mild Pain (1-3) or Fever Albuterol 2.5 mg 12/08/24 16:23 Albuterol Sulfate Neb 2.5 Mg/3 Ml Inh INHALATION Q12HR PRN Shortness Of Breath Amlodipine Besylate 10 mg 12/02/24 09:00 12/14/24 10:08 Amlodipine Besylate 10 Mg Tablet PO 10 mg DAILY SOURAV Administration Dextrose 12.5 gm 11/06/24 07:40 11/21/24 16:58 Dextrose 50% 25 Gm/50 Ml Syringe IV PUSH 12.5 gm PRN PRN Administration Hypoglycemia Protocol Dronabinol 10 mg 12/15/24 17:00 12/16/24 08:58 Dronabinol (*Crx) 2.5 Mg Capsule PO 10 mg BID SOURAV Administration Enoxaparin Sodium 30 mg 11/29/24 09:00 12/16/24 08:29 Enoxaparin 30 Mg/0.3 Ml Syringe SUB-Q 30 mg DAILY SOURAV Administration Folic Acid 1 mg 12/08/24 09:00 12/16/24 08:29 Folic Acid 1 Mg/0.2 Ml Inj IV PUSH 1 mg QAM SOURAV Administration Furosemide 20 mg 11/28/24 17:00 12/14/24 17:43 Furosemide Inj 40 Mg/4 Ml Vial IV PUSH Not Given BID SOURAV Glucagon 1 mg 11/06/24 07:40 Glucagon For Inj 1 Mg Vial IM PRN PRN Hypoglycemia Protocol Glucose 15 gm 11/06/24 07:40 Glucose Oral Gel 15 Gm Of Glucse In 37.5 Gm Tube PO PRN PRN Hypoglycemia Protocol Hydrochlorothiazide 25 mg 12/03/24 09:00 12/14/24 10:08 Hydrochlorothiazide 25 Mg Tablet PO 25 mg QAM SOURAV Administration Dextrose 1,000 mls @ 100 mls/hr 11/06/24 07:40 Dextrose 5% 1,000 Ml IVPB PRN PRN Hypoglycemia Protocol Insulin Aspart 2 - 5 units 11/18/24 08:00 12/16/24 08:30 Insulin Aspart (*Bkc) 100 Units/Ml SUB-Q Not Given TIDWM [facility] Protocol Levofloxacin 750 mg 12/12/24 19:00 12/14/24 18:51 Levofloxacin 750 Mg Tablet PO 750 mg Q48H SOURAV Administration Loperamide HCl 2 mg 12/01/24 10:59 12/01/24 15:17 Loperamide Hcl 2 Mg Capsule PO 2 mg PRN PRN Administration Diarrhea Metronidazole 500 mg 12/12/24 14:00 12/16/24 05:06 Metronidazole 500 Mg Tablet PO Not Given Q8HR SOURAV Mirtazapine 15 mg 11/30/24 21:00 12/15/24 20:47 Mirtazapine 15 Mg Tablet PO 15 mg HS SOURAV Administration Miscellaneous Information 0 each 12/15/24 00:01 12/15/24 20:55 Hydromorphone & Tramadol Orders Will Auto 12/16 Early Am. XX 01/14/25 00:00 Not Given CLARIFY SOURAV Naloxone HCl 0.1 mg 12/08/24 16:21 Naloxone Hcl 0.4 Mg/Ml Vial IV PUSH Q2M PRN Opiate Reversal Ondansetron HCl 4 mg 12/08/24 16:21 12/14/24 13:07 Ondansetron Inj 4 Mg/2 Ml Vial IV PUSH 4 mg Q4H PRN Administration Nausea And Vomiting Pantoprazole Sodium 40 mg 12/08/24 21:00 12/16/24 08:28 Pantoprazole Sodium Iv 40 Mg Vial IV PUSH 40 mg Q12HR SOURAV Administration Phenyleph/[place]ark Oil/[place] Butter 1 supp 11/19/24 18:18 11/19/24 18:33 Phenylephrine Hcl/[place] Butter Supp.Rect (*Bkc) RECTAL 1 supp Q12HR PRN Administration Hemorrhoids Potassium Chloride 20 meq 12/06/24 09:00 12/16/24 08:29 Potassium Chloride 20 Meq Packet (For Liquid) PO 20 meq DAILY SOURAV Administration Psyllium Hydrophilic Mucilloid 1 packet 11/29/24 09:00 12/16/24 08:31 Psyllium Powder Packet PO Not Given QAM SOURAV Thiamine HCl 100 mg 12/08/24 09:00 12/16/24 08:28 Thiamine Hcl 200 Mg/2 Ml Vial IV PUSH 100 mg QAM SOURAV Administration Radiology Results: ITS Impressions Head CT 11/05/24 20:50 IMPRESSION: 1. Moderate nonspecific cerebral white matter disease, which likely represents chronic small vessel ischemic disease. 2. 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 Upper GI Series 11/08/24 12:17 IMPRESSION: 1. Slow gastric emptying likely related to postoperative ileus. No extraluminal leakage of contrast. Abdomen X-Ray 11/14/24 11:13 IMPRESSION: Nonspecific, nonobstructive bowel gas pattern. Supportive devices unchanged in position. Bilateral pleural effusions. If clinical suspicion persists, CT examination of the abdomen and pelvis (with intravenous contrast) is suggested for further evaluation. Renal Ultrasound 11/19/24 16:17 IMPRESSION: No hydronephrosis or renal calculi. Findings suggesting medical renal disease. Free fluid within the pelvis. Venous Doppler Study 11/22/24 10:28 IMPRESSION: 1. No deep venous thrombosis in either lower limb. Renal Scan Nuclear Medicine 11/23/24 14:21 IMPRESSION: 1. Symmetric kidney function. 2. Delayed activity clearance from both kidneys with continually rising activity curves extending over the 30 minutes of observation and without associated hydronephrosis consistent with nonspecific, nonobstructive nephropathy. Modified Barium Swallow 11/26/24 10:39 IMPRESSION: 1. Trace laryngeal penetration. 2. Please refer to the speech therapy report for recommendations. Chest/Abdomen/Pelvis CT 12/02/24 14:47 IMPRESSION: Redemonstration of subcapsular fluid collections within both the liver and spleen (as detailed above) for which abscess formation is suspected. Both collections are amenable to percutaneous drainage. Bilateral large pleural effusions, with adjacent consolidation, decreased from prior. Catheter Placement CT 12/05/24 15:17 IMPRESSION: 1. Successful CT-guided subcapsular liver abscess drainage. 2. 2 mL opaque, moore fluid was sent for aerobic and anaerobic cultures. 3. Moderate-sized pleural effusions. 4. Moderate volume of ascites. Consider peritoneal drain placement. Chest X-Ray 12/08/24 12:28 IMPRESSION: 1. Stable airspace opacities at the lung bases, consistent with atelectasis versus pneumonia. 2. Stable small pleural effusions. 3. Emphysema. Abdomen/Pelvis CT 12/10/24 15:20 IMPRESSION: 1. Percutaneous abscess drains within a subcapsular fluid collections at the spleen and liver, both of which approximately half the volume of the prior study. 2. Persistent anasarca with extensive soft tissue edema and 3. Decrease in size of small bilateral pleural effusions. 4. Tree-in-bud opacities in the bilateral lower lobes consistent with pneumonia. Moderate amount of ascites throughout the abdomen and pelvis. Labs Labs: Laboratory Results - last 24 hr 12/15/24 12/15/24 12/15/24 11:57 16:52 21:16 POC Capillary Glucose 105 153 H 139 H 12/16/24 08:10 POC Capillary Glucose 95 Quality VTE Prophylaxis VTE prophylaxis: mechanical ordered and pharmacologic ordered
[2024-12-16 12:01] LABS: Glucose Point of Care 111 mg/dl (65-105)
[2024-12-16 14:00] VITALS: BP 131/68; PULSE 89; RESP 20; TEMP 36.5; O2SAT 97
[2024-12-16] MEDS: metroNIDAZOLE 500 MG TABLET PO ×2 (14:37→21:47)
[2024-12-16 16:29] LABS: Glucose Point of Care 125 mg/dl (65-105)
[2024-12-16] MEDS: levoFLOXacin 750 MG TABLET PO (17:38)
[2024-12-16 19:33] VITALS: BP 118/80; PULSE 71; RESP 14; TEMP 37.1; O2SAT 98
[2024-12-16 21:15] LABS: Glucose Point of Care 132 mg/dl (65-105)
[2024-12-16] MEDS: MIRTAZAPINE 15 MG TABLET PO (21:47)
[2024-12-17 03:25] VITALS: BP 127/74; PULSE 73; RESP 14; TEMP 37.2; O2SAT 98
[2024-12-17] MEDS: metroNIDAZOLE 500 MG TABLET PO ×3 (05:50→21:43)
[2024-12-17] MEDS: POTASSIUM CHLORIDE 20 MEQ PACKET (FOR LIQUID) PO (08:14)
[2024-12-17] MEDS: FOLIC ACID 1 MG/0.2 ML INJ IV PUSH (08:14)
[2024-12-17] MEDS: ENOXAPARIN 30 MG/0.3 ML SYRINGE SUB-Q (08:14)
[2024-12-17] MEDS: PSYLLIUM POWDER PACKET 1 PACKET PO (08:15)
[2024-12-17] MEDS: droNABinol (*CRX) 2.5 MG CAPSULE 10 MG PO (08:15)
[2024-12-17] MEDS: PANTOPRAZOLE SODIUM IV 40 MG VIAL IV PUSH ×2 (08:15→21:46)
[2024-12-17] MEDS: THIAMINE HCL 200 MG/2 ML VIAL 100 MG IV PUSH (08:15)
[2024-12-17 08:17] LABS: Glucose Point of Care 91 mg/dl (65-105)
[2024-12-17 12:03] LABS: Glucose Point of Care 91 mg/dl (65-105)
--- NOTE | 2024-12-17 12:52 | PM.IMPN ---
Progress Note: A&P Assessment and Plan (1) Metabolic acidosis: Code(s): E87.20 - Acidosis, unspecified Status: Acute Assessment and Plan: resolved (2) DEBI (acute kidney injury): Code(s): N17.9 - Acute kidney failure, unspecified Status: Acute Assessment and Plan: Creatinine seems to have stabilized at 1.54 Nephrology following (3) Perforated gastric ulcer: Qualifiers: Gastric ulcer chronicity: acute Qualified Code(s): K25.1 - Acute gastric ulcer with perforation Code(s): K25.5 - Chronic or unspecified gastric ulcer with perforation Status: Acute Assessment and Plan: Resolved Continue with Protonix and monitor hgb (4) COPD (chronic obstructive pulmonary disease): Code(s): J44.9 - Chronic obstructive pulmonary disease, unspecified Status: Acute Assessment and Plan: Stable on current medications. Will continue current treatment. (5) Sepsis: Code(s): A41.9 - Sepsis, unspecified organism Status: Acute Assessment and Plan: Completed antibiotics (6) Pneumonia: Code(s): J18.9 - Pneumonia, unspecified organism Status: Acute Assessment and Plan: Completed antibiotics pneumonia resolved Repeat CXR showed pulm edema and Pleural effusion now on lasix (7) Acute hypoxic respiratory failure: Code(s): J96.01 - Acute respiratory failure with hypoxia Status: Acute Assessment and Plan: resolved CXR showed pulm edema and pleural effusion continue Lasix 20mg bid and monitor renal function ECHO from june normal function monitor (8) Sepsis associated hypotension: Code(s): A41.9 - Sepsis, unspecified organism; I95.9 - Hypotension, unspecified Status: Acute Assessment and Plan: completed antibiotics (9) EtOH dependence: Code(s): F10.20 - Alcohol dependence, uncomplicated Status: Acute Assessment and Plan: Counselling given (10) Failure to thrive: Status: Acute Plan Consulted Hospice Perforated Gastric ulcer Patient underwent surgery on 11/05. Patient condition has been declining after the perforated gastric ulcer. s/p perc drain due to spleen and liver abscess. Failure to thrive Patient has multiple co-morbid condition including COPD,alcohol abuse, perforated ulcer, liver abscess,and recent surgical stress. encourage to eat, on Dronabinol Discussed with his brother who is POA. Diarrhea Resolved Stool culture and C diff negative Likely from pureed diet started on PRN Imodium leukocytosis resolved, WBC 9.9 Surgery re-evaluated the re-demonstration of subcapsular fluid collections within both the liver and spleen for which abscess formation is suspected.. Underwent perc drain on 12/05 Repeat blood culture pending. CXR done several days ago showed pulm edema and patient has responded to lasix and off oxygen Lactic acid normal Repeated blood culture Subcapsular Spleen and Liver on percutaneous drainage repeat CT showed improving, half the prior volume. Gen surgery following Anemia Hb 8.1, isat 28 and Ferritin 506 Iron replete B12/Folate wnl Liver and splenic abscess resolving repeat CT showed marked drainage Surgery removed drains day 04/03 Levaquin and Flagyl F/u with Gen surgery as instructed Code status DNR DVT prophylaxis on Sq [facility] Subjective Date/time seen: 12/17/24 12:52 Interval history: Patient comfortable at bedside eating breakfast at the time of this encounter Review of Systems Review of Systems: Pt with a dry throat not talking loudly ROS unobtainable: Yes unobtainable due to endotracheal tube, unobtainable due to medical condition and unobtainable due to mental status Exam Narrative: General: More alert toady Lungs/Chest: Trachea central Coarse BS B/L, No crackles or wheezing. Cardiac: RRR. Normal S1 S2. No murmurs Abdomen: Decreased but present bowel sounds. Extremities: No clubbing, cyanosis or edema. Warm : Shen in place Neurologic: Patient is able to move all 4 extremities spontaneously. Objective Data Vital Signs Vital Signs: Vital Signs - 24 hr 12/16/24 14:00 12/16/24 19:33 12/17/24 03:25 Temperature 97.7 F 98.8 F 99.0 F Pulse Rate 89 71 73 Respiratory Rate 20 14 14 Blood Pressure 131/68 118/80 127/74 Pulse Oximetry 97 98 98 Intake/Output Intake/Output: Intake & Output 12/14/24 12/15/24 12/16/24 12/17/24 23:59 23:59 23:59 23:59 Intake Total 1370 1490 2146 535 Output Total 1000 1 Balance 370 1489 2146 535 Meds/Results Medications: Active Medications Generic Name Dose Route Start Last Admin Trade Name Freq PRN Reason Stop Dose Admin Acetaminophen 650 mg 11/14/24 15:21 12/13/24 10:10 Acetaminophen Elixir 325 Mg/10.15 Ml Udc FEED TUBE 650 mg Q4H PRN Administration Headache, Fever, Mild Pain Acetaminophen 650 mg 12/08/24 16:13 Acetaminophen 650 Mg Suppository RECTAL Q4H PRN Mild Pain (1-3) or Fever Albuterol 2.5 mg 12/08/24 16:23 Albuterol Sulfate Neb 2.5 Mg/3 Ml Inh INHALATION Q12HR PRN Shortness Of Breath Amlodipine Besylate 10 mg 12/02/24 09:00 12/14/24 10:08 Amlodipine Besylate 10 Mg Tablet PO 10 mg DAILY SOURAV Administration Dextrose 12.5 gm 11/06/24 07:40 11/21/24 16:58 Dextrose 50% 25 Gm/50 Ml Syringe IV PUSH 12.5 gm PRN PRN Administration Hypoglycemia Protocol Dronabinol 10 mg 12/15/24 17:00 12/17/24 08:15 Dronabinol (*Crx) 2.5 Mg Capsule PO 10 mg BID SOURAV Administration Enoxaparin Sodium 30 mg 11/29/24 09:00 12/17/24 08:14 Enoxaparin 30 Mg/0.3 Ml Syringe SUB-Q 30 mg DAILY SOURAV Administration Folic Acid 1 mg 12/08/24 09:00 12/17/24 08:14 Folic Acid 1 Mg/0.2 Ml Inj IV PUSH 1 mg QAM SOURAV Administration Furosemide 20 mg 11/28/24 17:00 12/14/24 17:43 Furosemide Inj 40 Mg/4 Ml Vial IV PUSH Not Given BID SOURAV Glucagon 1 mg 11/06/24 07:40 Glucagon For Inj 1 Mg Vial IM PRN PRN Hypoglycemia Protocol Glucose 15 gm 11/06/24 07:40 Glucose Oral Gel 15 Gm Of Glucse In 37.5 Gm Tube PO PRN PRN Hypoglycemia Protocol Hydrochlorothiazide 25 mg 12/03/24 09:00 12/14/24 10:08 Hydrochlorothiazide 25 Mg Tablet PO 25 mg QAM SOURAV Administration Dextrose 1,000 mls @ 100 mls/hr 11/06/24 07:40 Dextrose 5% 1,000 Ml IVPB PRN PRN Hypoglycemia Protocol Insulin Aspart 2 - 5 units 11/18/24 08:00 12/17/24 12:27 Insulin Aspart (*Bkc) 100 Units/Ml SUB-Q Not Given [facility] Protocol Levofloxacin 750 mg 12/12/24 19:00 12/16/24 17:38 Levofloxacin 750 Mg Tablet PO 750 mg Q48H SOURAV Administration Loperamide HCl 2 mg 12/01/24 10:59 12/01/24 15:17 Loperamide Hcl 2 Mg Capsule PO 2 mg PRN PRN Administration Diarrhea Metronidazole 500 mg 12/12/24 14:00 12/17/24 05:50 Metronidazole 500 Mg Tablet PO 500 mg Q8HR SOURAV Administration Mirtazapine 15 mg 11/30/24 21:00 12/16/24 21:47 Mirtazapine 15 Mg Tablet PO 15 mg HS SOURAV Administration Miscellaneous Information 0 each 12/15/24 00:01 12/15/24 20:55 Hydromorphone & Tramadol Orders Will Auto 12/16 Early Am. XX 01/14/25 00:00 Not Given CLARIFY SOURAV Naloxone HCl 0.1 mg 12/08/24 16:21 Naloxone Hcl 0.4 Mg/Ml Vial IV PUSH Q2M PRN Opiate Reversal Ondansetron HCl 4 mg 12/08/24 16:21 12/14/24 13:07 Ondansetron Inj 4 Mg/2 Ml Vial IV PUSH 4 mg Q4H PRN Administration Nausea And Vomiting Pantoprazole Sodium 40 mg 12/08/24 21:00 12/17/24 08:15 Pantoprazole Sodium Iv 40 Mg Vial IV PUSH 40 mg Q12HR SOURAV Administration Phenyleph/Shark Oil/[place] Butter 1 supp 11/19/24 18:18 11/19/24 18:33 Phenylephrine Hcl/[place] Butter Supp.Rect (*Bkc) RECTAL 1 supp Q12HR PRN Administration Hemorrhoids Potassium Chloride 20 meq 12/06/24 09:00 12/17/24 08:14 Potassium Chloride 20 Meq Packet (For Liquid) PO 20 meq DAILY SOURAV Administration Psyllium Hydrophilic Mucilloid 1 packet 11/29/24 09:00 12/17/24 08:15 Psyllium Powder Packet PO 1 packet QAM SOURAV Administration Thiamine HCl 100 mg 12/08/24 09:00 12/17/24 08:15 Thiamine Hcl 200 Mg/2 Ml Vial IV PUSH 100 mg QAM SOURAV Administration Radiology Results: ITS Impressions Head CT 11/05/24 20:50 IMPRESSION: 1. Moderate nonspecific cerebral white matter disease, which likely represents chronic small vessel ischemic disease. 2. 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 Upper GI Series 11/08/24 12:17 IMPRESSION: 1. Slow gastric emptying likely related to postoperative ileus. No extraluminal leakage of contrast. Abdomen X-Ray 11/14/24 11:13 IMPRESSION: Nonspecific, nonobstructive bowel gas pattern. Supportive devices unchanged in position. Bilateral pleural effusions. If clinical suspicion persists, CT examination of the abdomen and pelvis (with intravenous contrast) is suggested for further evaluation. Renal Ultrasound 11/19/24 16:17 IMPRESSION: No hydronephrosis or renal calculi. Findings suggesting medical renal disease. Free fluid within the pelvis. Venous Doppler Study 11/22/24 10:28 IMPRESSION: 1. No deep venous thrombosis in either lower limb. Renal Scan Nuclear Medicine 11/23/24 14:21 IMPRESSION: 1. Symmetric kidney function. 2. Delayed activity clearance from both kidneys with continually rising activity curves extending over the 30 minutes of observation and without associated hydronephrosis consistent with nonspecific, nonobstructive nephropathy. Modified Barium Swallow 11/26/24 10:39 IMPRESSION: 1. Trace laryngeal penetration. 2. Please refer to the speech therapy report for recommendations. Chest/Abdomen/Pelvis CT 12/02/24 14:47 IMPRESSION: Redemonstration of subcapsular fluid collections within both the liver and spleen (as detailed above) for which abscess formation is suspected. Both collections are amenable to percutaneous drainage. Bilateral large pleural effusions, with adjacent consolidation, decreased from prior. Catheter Placement CT 12/05/24 15:17 IMPRESSION: 1. Successful CT-guided subcapsular liver abscess drainage. 2. 2 mL opaque, moore fluid was sent for aerobic and anaerobic cultures. 3. Moderate-sized pleural effusions. 4. Moderate volume of ascites. Consider peritoneal drain placement. Chest X-Ray 12/08/24 12:28 IMPRESSION: 1. Stable airspace opacities at the lung bases, consistent with atelectasis versus pneumonia. 2. Stable small pleural effusions. 3. Emphysema. Abdomen/Pelvis CT 12/10/24 15:20 IMPRESSION: 1. Percutaneous abscess drains within a subcapsular fluid collections at the spleen and liver, both of which approximately half the volume of the prior study. 2. Persistent anasarca with extensive soft tissue edema and 3. Decrease in size of small bilateral pleural effusions. 4. Tree-in-bud opacities in the bilateral lower lobes consistent with pneumonia. Moderate amount of ascites throughout the abdomen and pelvis. Labs Labs: Laboratory Results - last 24 hr 12/16/24 12/16/24 12/17/24 16:24 19:40 08:04 POC Capillary Glucose 125 H 132 H 91 12/17/24 11:48 POC Capillary Glucose 91 Quality VTE Prophylaxis VTE prophylaxis: mechanical ordered and pharmacologic ordered
[2024-12-17 14:22] VITALS: BP 117/76; PULSE 78; RESP 16; TEMP 37.1; O2SAT 99
[2024-12-17 17:06] LABS: Glucose Point of Care 106 mg/dl (65-105)
[2024-12-17] MEDS: MIRTAZAPINE 15 MG TABLET PO (21:43)
[2024-12-17 22:00] VITALS: BP 135/78; PULSE 66; RESP 16; TEMP 37.1; O2SAT 100
[2024-12-17 22:09] LABS: Glucose Point of Care 205 mg/dl (65-105)
[2024-12-18 06:00] VITALS: BP 122/72; PULSE 72; RESP 20; TEMP 36.4; O2SAT 95
[2024-12-18] MEDS: metroNIDAZOLE 500 MG TABLET PO ×3 (06:02→21:43)
[2024-12-18 07:46] VITALS: BP 114/72; PULSE 65; RESP 13; TEMP 36.6; O2SAT 98
[2024-12-18 08:24] LABS: Glucose Point of Care 100 mg/dl (65-105)
[2024-12-18] MEDS: droNABinol (*CRX) 2.5 MG CAPSULE 10 MG PO ×2 (09:14→17:21)
[2024-12-18] MEDS: ENOXAPARIN 30 MG/0.3 ML SYRINGE SUB-Q (09:15)
[2024-12-18] MEDS: POTASSIUM CHLORIDE 20 MEQ PACKET (FOR LIQUID) PO (09:16)
[2024-12-18] MEDS: FOLIC ACID 1 MG/0.2 ML INJ IV PUSH (09:16)
[2024-12-18] MEDS: THIAMINE HCL 200 MG/2 ML VIAL 100 MG IV PUSH (09:16)
[2024-12-18] MEDS: PANTOPRAZOLE SODIUM IV 40 MG VIAL IV PUSH ×2 (09:19→21:44)
[2024-12-18 12:00] LABS: Glucose Point of Care 174 mg/dl (65-105)
--- NOTE | 2024-12-18 12:30 | P.PNIM_ITS ---
Progress Note: A&P Assessment and Plan (1) Metabolic acidosis: Code(s): E87.20 - Acidosis, unspecified Status: Acute Assessment and Plan: resolved (2) DEBI (acute kidney injury): Code(s): N17.9 - Acute kidney failure, unspecified Status: Acute Assessment and Plan: Creatinine seems to have stabilized at 1.54 Nephrology following (3) Perforated gastric ulcer: Qualifiers: Gastric ulcer chronicity: acute Qualified Code(s): K25.1 - Acute gastric ulcer with perforation Code(s): K25.5 - Chronic or unspecified gastric ulcer with perforation Status: Acute Assessment and Plan: Resolved Continue with Protonix and monitor hgb (4) COPD (chronic obstructive pulmonary disease): Code(s): J44.9 - Chronic obstructive pulmonary disease, unspecified Status: Acute Assessment and Plan: Stable on current medications. Will continue current treatment. (5) Sepsis: Code(s): A41.9 - Sepsis, unspecified organism Status: Acute Assessment and Plan: Completed antibiotics (6) Pneumonia: Code(s): J18.9 - Pneumonia, unspecified organism Status: Acute Assessment and Plan: Completed antibiotics pneumonia resolved Repeat CXR showed pulm edema and Pleural effusion now on lasix (7) Acute hypoxic respiratory failure: Code(s): J96.01 - Acute respiratory failure with hypoxia Status: Acute Assessment and Plan: resolved CXR showed pulm edema and pleural effusion continue Lasix 20mg bid and monitor renal function ECHO from june normal function monitor (8) Sepsis associated hypotension: Code(s): A41.9 - Sepsis, unspecified organism; I95.9 - Hypotension, unspecified Status: Acute Assessment and Plan: completed antibiotics (9) EtOH dependence: Code(s): F10.20 - Alcohol dependence, uncomplicated Status: Acute Assessment and Plan: Counselling given (10) Failure to thrive: Status: Acute Plan Consulted Hospice Perforated Gastric ulcer Patient underwent surgery on 11/05. Patient condition has been declining after the perforated gastric ulcer. s/p perc drain due to spleen and liver abscess. Failure to thrive Patient has multiple co-morbid condition including COPD,alcohol abuse, perforated ulcer, liver abscess,and recent surgical stress. encourage to eat, on Dronabinol Discussed with his brother who is POA. Diarrhea Resolved Stool culture and C diff negative Likely from pureed diet started on PRN Imodium leukocytosis resolved, WBC 9.9 Surgery re-evaluated the re-demonstration of subcapsular fluid collections within both the liver and spleen for which abscess formation is suspected.. Underwent perc drain on 12/05 Repeat blood culture pending. CXR done several days ago showed pulm edema and patient has responded to lasix and off oxygen Lactic acid normal Repeated blood culture Subcapsular Spleen and Liver on percutaneous drainage repeat CT showed improving, half the prior volume. Gen surgery following Anemia Hb 8.1, isat 28 and Ferritin 506 Iron replete B12/Folate wnl Liver and splenic abscess resolving repeat CT showed marked drainage Surgery removed drains day 04/03 Levaquin and Flagyl F/u with Gen surgery as instructed Code status DNR DVT prophylaxis on Sq Loven[facility] evaluating Subjective Date/time seen: 12/18/24 12:30 Interval history: Patient is currently on Levofloxacin and Metronidazole.No acute events. Review of Systems Review of Systems: Pt with a dry throat not talking loudly ROS unobtainable: Yes unobtainable due to endotracheal tube, unobtainable due to medical condition and unobtainable due to mental status Exam Narrative: General: More alert toady Lungs/Chest: Trachea central Coarse BS B/L, No crackles or wheezing. Cardiac: RRR. Normal S1 S2. No murmurs Abdomen: Decreased but present bowel sounds. Extremities: No clubbing, cyanosis or edema. Warm : Shen in place Neurologic: Patient is able to move all 4 extremities spontaneously. Objective Data Vital Signs Vital Signs: Vital Signs - 24 hr 12/17/24 14:22 12/17/24 22:00 12/18/24 06:00 Temperature 98.8 F 98.7 F 97.5 F L Pulse Rate 78 66 72 Respiratory Rate 16 16 20 Blood Pressure 117/76 135/78 122/72 Pulse Oximetry 99 100 95 Oxygen Delivery 12/18/24 07:46 12/18/24 09:15 Temperature 97.8 F Pulse Rate 65 Respiratory Rate 13 Blood Pressure 114/72 Pulse Oximetry 98 Oxygen Delivery Room Air Intake/Output Intake/Output: Intake & Output 12/15/24 12/16/24 12/17/24 12/18/24 23:59 23:59 23:59 23:59 Intake Total 1490 2146 1015 460 Output Total 1 Balance 1489 2146 1015 460 Meds/Results Medications: Active Medications Generic Name Dose Route Start Last Admin Trade Name Freq PRN Reason Stop Dose Admin Acetaminophen 650 mg 11/14/24 15:21 12/13/24 10:10 Acetaminophen Elixir 325 Mg/10.15 Ml Udc FEED TUBE 650 mg Q4H PRN Administration Headache, Fever, Mild Pain Acetaminophen 650 mg 12/08/24 16:13 Acetaminophen 650 Mg Suppository RECTAL Q4H PRN Mild Pain (1-3) or Fever Albuterol 2.5 mg 12/08/24 16:23 Albuterol Sulfate Neb 2.5 Mg/3 Ml Inh INHALATION Q12HR PRN Shortness Of Breath Amlodipine Besylate 10 mg 12/02/24 09:00 12/14/24 10:08 Amlodipine Besylate 10 Mg Tablet PO 10 mg DAILY SOURAV Administration Dextrose 12.5 gm 11/06/24 07:40 11/21/24 16:58 Dextrose 50% 25 Gm/50 Ml Syringe IV PUSH 12.5 gm PRN PRN Administration Hypoglycemia Protocol Dronabinol 10 mg 12/15/24 17:00 12/18/24 09:14 Dronabinol (*Crx) 2.5 Mg Capsule PO 10 mg BID SOURAV Administration Enoxaparin Sodium 30 mg 11/29/24 09:00 12/18/24 09:15 Enoxaparin 30 Mg/0.3 Ml Syringe SUB-Q 30 mg DAILY SOURAV Administration Folic Acid 1 mg 12/08/24 09:00 12/18/24 09:16 Folic Acid 1 Mg/0.2 Ml Inj IV PUSH 1 mg QAM SOURAV Administration Furosemide 20 mg 11/28/24 17:00 12/14/24 17:43 Furosemide Inj 40 Mg/4 Ml Vial IV PUSH Not Given BID SOURAV Glucagon 1 mg 11/06/24 07:40 Glucagon For Inj 1 Mg Vial IM PRN PRN Hypoglycemia Protocol Glucose 15 gm 11/06/24 07:40 Glucose Oral Gel 15 Gm Of Glucse In 37.5 Gm Tube PO PRN PRN Hypoglycemia Protocol Hydrochlorothiazide 25 mg 12/03/24 09:00 12/14/24 10:08 Hydrochlorothiazide 25 Mg Tablet PO 25 mg QAM SOURAV Administration Dextrose 1,000 mls @ 100 mls/hr 11/06/24 07:40 Dextrose 5% 1,000 Ml IVPB PRN PRN Hypoglycemia Protocol Levofloxacin 750 mg 12/12/24 19:00 12/16/24 17:38 Levofloxacin 750 Mg Tablet PO 750 mg Q48H SOURAV Administration Loperamide HCl 2 mg 12/01/24 10:59 12/01/24 15:17 Loperamide Hcl 2 Mg Capsule PO 2 mg PRN PRN Administration Diarrhea Metronidazole 500 mg 12/12/24 14:00 12/18/24 06:02 Metronidazole 500 Mg Tablet PO 500 mg Q8HR SOURAV Administration Mirtazapine 15 mg 11/30/24 21:00 12/17/24 21:43 Mirtazapine 15 Mg Tablet PO 15 mg HS SOURAV Administration Miscellaneous Information 0 each 12/15/24 00:01 12/15/24 20:55 Hydromorphone & Tramadol Orders Will Auto 12/16 Early Am. XX 01/14/25 00:00 Not Given CLARIFY SOURAV Naloxone HCl 0.1 mg 12/08/24 16:21 Naloxone Hcl 0.4 Mg/Ml Vial IV PUSH Q2M PRN Opiate Reversal Ondansetron HCl 4 mg 12/08/24 16:21 12/14/24 13:07 Ondansetron Inj 4 Mg/2 Ml Vial IV PUSH 4 mg Q4H PRN Administration Nausea And Vomiting Pantoprazole Sodium 40 mg 12/08/24 21:00 12/18/24 09:19 Pantoprazole Sodium Iv 40 Mg Vial IV PUSH 40 mg Q12HR SOURAV Administration Phenyleph/Shark Oil/[place] Butter 1 supp 11/19/24 18:18 11/19/24 18:33 Phenylephrine Hcl/[place] Butter Supp.Rect (*Bkc) RECTAL 1 supp Q12HR PRN Administration Hemorrhoids Potassium Chloride 20 meq 12/06/24 09:00 12/18/24 09:16 Potassium Chloride 20 Meq Packet (For Liquid) PO 20 meq DAILY SOURAV Administration Psyllium Hydrophilic Mucilloid 1 packet 11/29/24 09:00 12/18/24 09:23 Psyllium Powder Packet PO Not Given QAM SOURAV Thiamine HCl 100 mg 12/08/24 09:00 12/18/24 09:16 Thiamine Hcl 200 Mg/2 Ml Vial IV PUSH 100 mg QAM SOURAV Administration Radiology Results: ITS Impressions Head CT 11/05/24 20:50 IMPRESSION: 1. Moderate nonspecific cerebral white matter disease, which likely represents chronic small vessel ischemic disease. 2. 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 Upper GI Series 11/08/24 12:17 IMPRESSION: 1. Slow gastric emptying likely related to postoperative ileus. No extraluminal leakage of contrast. Abdomen X-Ray 11/14/24 11:13 IMPRESSION: Nonspecific, nonobstructive bowel gas pattern. Supportive devices unchanged in position. Bilateral pleural effusions. If clinical suspicion persists, CT examination of the abdomen and pelvis (with intravenous contrast) is suggested for further evaluation. Renal Ultrasound 11/19/24 16:17 IMPRESSION: No hydronephrosis or renal calculi. Findings suggesting medical renal disease. Free fluid within the pelvis. Venous Doppler Study 11/22/24 10:28 IMPRESSION: 1. No deep venous thrombosis in either lower limb. Renal Scan Nuclear Medicine 11/23/24 14:21 IMPRESSION: 1. Symmetric kidney function. 2. Delayed activity clearance from both kidneys with continually rising activity curves extending over the 30 minutes of observation and without associated hydronephrosis consistent with nonspecific, nonobstructive nephropathy. Modified Barium Swallow 11/26/24 10:39 IMPRESSION: 1. Trace laryngeal penetration. 2. Please refer to the speech therapy report for recommendations. Chest/Abdomen/Pelvis CT 12/02/24 14:47 IMPRESSION: Redemonstration of subcapsular fluid collections within both the liver and spleen (as detailed above) for which abscess formation is suspected. Both collections are amenable to percutaneous drainage. Bilateral large pleural effusions, with adjacent consolidation, decreased from prior. Catheter Placement CT 12/05/24 15:17 IMPRESSION: 1. Successful CT-guided subcapsular liver abscess drainage. 2. 2 mL opaque, moore fluid was sent for aerobic and anaerobic cultures. 3. Moderate-sized pleural effusions. 4. Moderate volume of ascites. Consider peritoneal drain placement. Chest X-Ray 12/08/24 12:28 IMPRESSION: 1. Stable airspace opacities at the lung bases, consistent with atelectasis versus pneumonia. 2. Stable small pleural effusions. 3. Emphysema. Abdomen/Pelvis CT 12/10/24 15:20 IMPRESSION: 1. Percutaneous abscess drains within a subcapsular fluid collections at the spleen and liver, both of which approximately half the volume of the prior study. 2. Persistent anasarca with extensive soft tissue edema and 3. Decrease in size of small bilateral pleural effusions. 4. Tree-in-bud opacities in the bilateral lower lobes consistent with pneumonia. Moderate amount of ascites throughout the abdomen and pelvis. Labs Labs: Laboratory Results - last 24 hr 12/17/24 12/17/24 12/18/24 16:51 21:16 08:21 POC Capillary Glucose 106 H 205 H 100 12/18/24 11:50 POC Capillary Glucose 174 H Hospitalist MIPS Advance Care Plan I have confirmed that the patient's Advanced Care Plan is present, code status is documented, or surrogate decision maker is listed in patient medical record.: Yes Medication Reconciliation I have utilized all available resources to obtain, update and review the patients current medications (includes all prescriptions, OTC, herbals, cannabis, and nutritional supplements).: Yes
[2024-12-18 14:36] VITALS: BP 119/94; PULSE 86; RESP 16; TEMP 37.1; O2SAT 97
[2024-12-18 16:52] LABS: Glucose Point of Care 104 mg/dl (65-105)
[2024-12-18] MEDS: levoFLOXacin 750 MG TABLET PO (19:46)
[2024-12-18 21:37] LABS: Glucose Point of Care 144 mg/dl (65-105)
[2024-12-18] MEDS: MIRTAZAPINE 15 MG TABLET PO (21:43)
[2024-12-18 22:00] VITALS: BP 126/85; PULSE 81; RESP 20; TEMP 37.1
[2024-12-19] VITALS (9 sets, daily range): BP systolic 105–135; BP diastolic 66–82; PULSE 64–77; RESP 14–20; TEMP 36.5–37.1; O2SAT 97–100
[2024-12-19] MEDS: metroNIDAZOLE 500 MG TABLET PO ×3 (04:57→21:01)
[2024-12-19 06:38] LABS: Hematocrit 21.9 % (42.0-52.0); Mean Corpuscular HGB Conc 31.1 g/dl (32-36); Mean Corpuscular Hemoglobin 27.4 pg (26-34); Mean Corpuscular Volume 88.3 fl (80-100); Mean Platelet Volume 9.6 fl (7.4-10.4); Platelet Count Result 602 k/mm3 (150-375); Red Blood Count 2.48 M/mm3 (4.6-6.20); Red Cell Distribution Width 15.1 % (11.5-14.5); White Blood Count 9.6 K/mm3 (4.5-10.0)
[2024-12-19 06:47] LABS: Hemoglobin 6.8 g/dL (14.0-18.0)
[2024-12-19 07:22] LABS: Alanine Aminotransferase 15 U/L (6-50); Albumin Level 2.8 g/dL (3.5-5.1); Alkaline Phosphatase 130 U/L (38-126); Anion Gap 6 mmol/L (4-12); Aspartate Amino Transferase 26 U/L (17-59); Bilirubin,Total 0.3 mg/dL (0.2-1.3); Blood Urea Nitrogen 25 mg/dL (9-20); Calcium 8.3 mg/dL (8.4-10.2); Carbon Dioxide 31 mmol/L (22-30); Chloride 103 mmol/L (98-107); Estimated CRCL calculation 33 ml/min; Estimated Glomerular Filt Rate > 60; Glucose 86 mg/dL (65-110); Potassium 3.3 mmol/L (3.4-5.0); Sodium 140 mmol/L (137-145)
[2024-12-19 08:38] LABS: Glucose Point of Care 171 mg/dl (65-105)
[2024-12-19] MEDS: droNABinol (*CRX) 2.5 MG CAPSULE 10 MG PO ×2 (09:42→17:35)
[2024-12-19] MEDS: POTASSIUM CHLORIDE 20 MEQ PACKET (FOR LIQUID) PO (09:43)
[2024-12-19] MEDS: POTASSIUM CHLORIDE 20 MEQ ER TABLET 40 MEQ PO (09:43)
[2024-12-19] MEDS: ENOXAPARIN 40 MG/0.4 ML SYRINGE SUB-Q (09:44)
[2024-12-19] MEDS: FOLIC ACID 1 MG/0.2 ML INJ IV PUSH (09:44)
[2024-12-19] MEDS: THIAMINE HCL 200 MG/2 ML VIAL 100 MG IV PUSH (09:44)
[2024-12-19] MEDS: PANTOPRAZOLE SODIUM IV 40 MG VIAL IV PUSH ×2 (09:45→21:01)
[2024-12-19 11:52] LABS: Glucose Point of Care 118 mg/dl (65-105)
--- NOTE | 2024-12-19 15:41 | P.PNIM_ITS ---
Progress Note: A&P Assessment and Plan (1) Metabolic acidosis: Code(s): E87.20 - Acidosis, unspecified Status: Acute Assessment and Plan: resolved (2) DEBI (acute kidney injury): Code(s): N17.9 - Acute kidney failure, unspecified Status: Acute Assessment and Plan: Creatinine seems to have stabilized at 1.54 Nephrology following (3) Perforated gastric ulcer: Qualifiers: Gastric ulcer chronicity: acute Qualified Code(s): K25.1 - Acute gastric ulcer with perforation Code(s): K25.5 - Chronic or unspecified gastric ulcer with perforation Status: Acute Assessment and Plan: Resolved Continue with Protonix and monitor hgb (4) COPD (chronic obstructive pulmonary disease): Code(s): J44.9 - Chronic obstructive pulmonary disease, unspecified Status: Acute Assessment and Plan: Stable on current medications. Will continue current treatment. (5) Sepsis: Code(s): A41.9 - Sepsis, unspecified organism Status: Acute Assessment and Plan: Completed antibiotics (6) Pneumonia: Code(s): J18.9 - Pneumonia, unspecified organism Status: Acute Assessment and Plan: Completed antibiotics pneumonia resolved Repeat CXR showed pulm edema and Pleural effusion now on lasix (7) Acute hypoxic respiratory failure: Code(s): J96.01 - Acute respiratory failure with hypoxia Status: Acute Assessment and Plan: resolved CXR showed pulm edema and pleural effusion continue Lasix 20mg bid and monitor renal function ECHO from june normal function monitor (8) Sepsis associated hypotension: Code(s): A41.9 - Sepsis, unspecified organism; I95.9 - Hypotension, unspecified Status: Acute Assessment and Plan: completed antibiotics (9) EtOH dependence: Code(s): F10.20 - Alcohol dependence, uncomplicated Status: Acute Assessment and Plan: Counselling given (10) Failure to thrive: Status: Acute Plan Consulted Hospice Perforated Gastric ulcer Patient underwent surgery on 11/05. Patient condition has been declining after the perforated gastric ulcer. s/p perc drain due to spleen and liver abscess. Failure to thrive Patient has multiple co-morbid condition including COPD,alcohol abuse, perforated ulcer, liver abscess,and recent surgical stress. encourage to eat, on Dronabinol Discussed with his brother who is POA. Diarrhea Resolved Stool culture and C diff negative Likely from pureed diet started on PRN Imodium leukocytosis resolved, WBC 9.9 Surgery re-evaluated the re-demonstration of subcapsular fluid collections within both the liver and spleen for which abscess formation is suspected.. Underwent perc drain on 12/05 Repeat blood culture pending. CXR done several days ago showed pulm edema and patient has responded to lasix and off oxygen Lactic acid normal Repeated blood culture Subcapsular Spleen and Liver on percutaneous drainage repeat CT showed improving, half the prior volume. Gen surgery following Anemia Hb 8.1, isat 28 and Ferritin 506 Iron replete B12/Folate wnl Liver and splenic abscess resolving repeat CT showed marked drainage Surgery removed drains day 04/03 Levaquin and Flagyl F/u with Gen surgery as instructed Code status DNR DVT prophylaxis on Sq L[facility] Subjective Date/time seen: 12/19/24 15:41 Interval history: No acute events. [facility]ending [facility] approval[facility] Transfuse 1U PRBC Review of Systems Review of Systems: Pt with a dry throat not talking loudly ROS unobtainable: Yes unobtainable due to endotracheal tube, unobtainable due to medical condition and unobtainable due to mental status Exam Narrative: General: More alert toady Lungs/Chest: Trachea central Coarse BS B/L, No crackles or wheezing. Cardiac: RRR. Normal S1 S2. No murmurs Abdomen: Decreased but present bowel sounds. Extremities: No clubbing, cyanosis or edema. Warm : Shen in place Neurologic: Patient is able to move all 4 extremities spontaneously. Objective Data Vital Signs Vital Signs: Vital Signs - 24 hr 12/18/24 20:00 12/18/24 22:00 12/19/24 05:50 Temperature 98.8 F 98.0 F Pulse Rate 81 64 Respiratory Rate 20 20 Blood Pressure 126/85 135/82 Pulse Oximetry 100 Oxygen Delivery Room Air 12/19/24 09:45 12/19/24 13:35 12/19/24 13:55 Temperature 98.8 F 98.2 F Pulse Rate 77 76 Respiratory Rate 16 16 Blood Pressure 106/66 105/68 Pulse Oximetry 97 98 Oxygen Delivery Room Air 12/19/24 14:31 Temperature 98.2 F Pulse Rate 73 Respiratory Rate Blood Pressure 107/71 Pulse Oximetry 99 Oxygen Delivery Intake/Output Intake/Output: Intake & Output 0112/17/24 12/18/24 12/19/24 23:59 23:59 23:59 23:59 Intake Total 2145 1015 1940 170 Balance 2145 1015 1940 170 Meds/Results Medications: Active Medications Generic Name Dose Route Start Last Admin Trade Name Freq PRN Reason Stop Dose Admin Acetaminophen 650 mg 11/14/24 15:21 12/13/24 10:10 Acetaminophen Elixir 325 Mg/10.15 Ml Udc FEED TUBE 650 mg Q4H PRN Administration Headache, Fever, Mild Pain Acetaminophen 650 mg 12/08/24 16:13 Acetaminophen 650 Mg Suppository RECTAL Q4H PRN Mild Pain (1-3) or Fever Albuterol 2.5 mg 12/08/24 16:23 Albuterol Sulfate Neb 2.5 Mg/3 Ml Inh INHALATION Q12HR PRN Shortness Of Breath Amlodipine Besylate 10 mg 12/02/24 09:00 12/14/24 10:08 Amlodipine Besylate 10 Mg Tablet PO 10 mg DAILY SOURAV Administration Dextrose 12.5 gm 11/06/24 07:40 11/21/24 16:58 Dextrose 50% 25 Gm/50 Ml Syringe IV PUSH 12.5 gm PRN PRN Administration Hypoglycemia Protocol Dronabinol 10 mg 12/15/24 17:00 12/19/24 09:42 Dronabinol (*Crx) 2.5 Mg Capsule PO 10 mg BID SOURAV Administration Enoxaparin Sodium 40 mg 12/19/24 09:00 12/19/24 09:44 Enoxaparin 40 Mg/0.4 Ml Syringe SUB-Q 40 mg DAILY SOURAV Administration Folic Acid 1 mg 12/08/24 09:00 12/19/24 09:44 Folic Acid 1 Mg/0.2 Ml Inj IV PUSH 1 mg QAM SOURAV Administration Furosemide 20 mg 11/28/24 17:00 12/14/24 17:43 Furosemide Inj 40 Mg/4 Ml Vial IV PUSH Not Given BID SOURAV Glucagon 1 mg 11/06/24 07:40 Glucagon For Inj 1 Mg Vial IM PRN PRN Hypoglycemia Protocol Glucose 15 gm 11/06/24 07:40 Glucose Oral Gel 15 Gm Of Glucse In 37.5 Gm Tube PO PRN PRN Hypoglycemia Protocol Hydrochlorothiazide 25 mg 12/03/24 09:00 12/14/24 10:08 Hydrochlorothiazide 25 Mg Tablet PO 25 mg QAM SOURAV Administration Dextrose 1,000 mls @ 100 mls/hr 11/06/24 07:40 Dextrose 5% 1,000 Ml IVPB PRN PRN Hypoglycemia Protocol Sodium Chloride 250 mls @ 30 mls/hr 12/19/24 09:21 Normal Saline Iv IV CONT 12/19/24 17:40 .Q8H20M STA Levofloxacin 750 mg 12/12/24 19:00 12/18/24 19:46 Levofloxacin 750 Mg Tablet PO 750 mg Q48H SOURAV Administration Loperamide HCl 2 mg 12/01/24 10:59 12/01/24 15:17 Loperamide Hcl 2 Mg Capsule PO 2 mg PRN PRN Administration Diarrhea Metronidazole 500 mg 12/12/24 14:00 12/19/24 14:46 Metronidazole 500 Mg Tablet PO 500 mg Q8HR SOURVA Administration Mirtazapine 15 mg 11/30/24 21:00 12/18/24 21:43 Mirtazapine 15 Mg Tablet PO 15 mg HS SOURAV Administration Miscellaneous Information 0 each 12/15/24 00:01 12/15/24 20:55 Hydromorphone & Tramadol Orders Will Auto 12/16 Early Am. XX 01/14/25 00:00 Not Given [facility]IFY [facility] Miscellaneous Information 1 each 12/19/24 00:01 Order Clarification XX 01/18/25 00:00 CLARIFY SOURAV Naloxone HCl 0.1 mg 12/08/24 16:21 Naloxone Hcl 0.4 Mg/Ml Vial IV PUSH Q2M PRN Opiate Reversal Ondansetron HCl 4 mg 12/08/24 16:21 12/14/24 13:07 Ondansetron Inj 4 Mg/2 Ml Vial IV PUSH 4 mg Q4H PRN Administration Nausea And Vomiting Pantoprazole Sodium 40 mg 12/08/24 21:00 12/19/24 09:45 Pantoprazole Sodium Iv 40 Mg Vial IV PUSH 40 mg Q12HR SOURAV Administration Phenyleph/Shark Oil/Encampment Butter 1 supp 11/19/24 18:18 11/19/24 18:33 Phenylephrine Hcl/Encampment Butter Supp.Rect (*Bkc) RECTAL 1 supp Q12HR PRN Administration Hemorrhoids Potassium Chloride 20 meq 12/06/24 09:00 12/19/24 09:43 Potassium Chloride 20 Meq Packet (For Liquid) PO 20 meq DAILY SOURAV Administration Psyllium Hydrophilic Mucilloid 1 packet 11/29/24 09:00 12/19/24 09:38 Psyllium Powder Packet PO Not Given QAM SOURAV Thiamine HCl 100 mg 12/08/24 09:00 12/19/24 09:44 Thiamine Hcl 200 Mg/2 Ml Vial IV PUSH 100 mg QAM SOURAV Administration Radiology Results: ITS Impressions Head CT 11/05/24 20:50 IMPRESSION: 1. Moderate nonspecific cerebral white matter disease, which likely represents chronic small vessel ischemic disease. 2. 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 Upper GI Series 11/08/24 12:17 IMPRESSION: 1. Slow gastric emptying likely related to postoperative ileus. No extraluminal leakage of contrast. Abdomen X-Ray 11/14/24 11:13 IMPRESSION: Nonspecific, nonobstructive bowel gas pattern. Supportive devices unchanged in position. Bilateral pleural effusions. If clinical suspicion persists, CT examination of the abdomen and pelvis (with intravenous contrast) is suggested for further evaluation. Renal Ultrasound 11/19/24 16:17 IMPRESSION: No hydronephrosis or renal calculi. Findings suggesting medical renal disease. Free fluid within the pelvis. Venous Doppler Study 11/22/24 10:28 IMPRESSION: 1. No deep venous thrombosis in either lower limb. Renal Scan Nuclear Medicine 11/23/24 14:21 IMPRESSION: 1. Symmetric kidney function. 2. Delayed activity clearance from both kidneys with continually rising activity curves extending over the 30 minutes of observation and without associated hydronephrosis consistent with nonspecific, nonobstructive nephropathy. Modified Barium Swallow 11/26/24 10:39 IMPRESSION: 1. Trace laryngeal penetration. 2. Please refer to the speech therapy report for recommendations. Chest/Abdomen/Pelvis CT 12/02/24 14:47 IMPRESSION: Redemonstration of subcapsular fluid collections within both the liver and spleen (as detailed above) for which abscess formation is suspected. Both collections are amenable to percutaneous drainage. Bilateral large pleural effusions, with adjacent consolidation, decreased from prior. Catheter Placement CT 12/05/24 15:17 IMPRESSION: 1. Successful CT-guided subcapsular liver abscess drainage. 2. 2 mL opaque, moore fluid was sent for aerobic and anaerobic cultures. 3. Moderate-sized pleural effusions. 4. Moderate volume of ascites. Consider peritoneal drain placement. Chest X-Ray 12/08/24 12:28 IMPRESSION: 1. Stable airspace opacities at the lung bases, consistent with atelectasis versus pneumonia. 2. Stable small pleural effusions. 3. Emphysema. Abdomen/Pelvis CT 12/10/24 15:20 IMPRESSION: 1. Percutaneous abscess drains within a subcapsular fluid collections at the spleen and liver, both of which approximately half the volume of the prior study. 2. Persistent anasarca with extensive soft tissue edema and 3. Decrease in size of small bilateral pleural effusions. 4. Tree-in-bud opacities in the bilateral lower lobes consistent with pneumonia. Moderate amount of ascites throughout the abdomen and pelvis. Labs Labs: Laboratory Results - last 24 hr 12/18/24 12/18/24 12/19/24 16:46 20:42 06:19 WBC 9.6 RBC 2.48 L Hgb 6.8 L* Hct 21.9 L MCV 88.3 MCH 27.4 MCHC 31.1 L RDW 15.1 H Plt Count 602 H MPV 9.6 Sodium 140 Potassium 3.3 L Chloride 103 Carbon Dioxide 31 H Anion Gap 6 BUN 25 H D Creatinine 1.13 Estim Creat Clear Calc 33 Estimated GFR > 60 Glucose 86 POC Capillary Glucose 104 144 H Calcium 8.3 L Total Bilirubin 0.3 AST 26 ALT 15 Alkaline Phosphatase 130 H Total Protein 6.0 L Albumin 2.8 L Blood Type Antibody Screen Crossmatch 12/19/24 12/19/24 12/19/24 08:17 09:45 11:36 WBC RBC Hgb Hct MCV MCH MCHC RDW Plt Count MPV Sodium Potassium Chloride Carbon Dioxide Anion Gap BUN Creatinine Estim Creat Clear Calc Estimated GFR Glucose POC Capillary Glucose 171 H 118 H Calcium Total Bilirubin AST ALT Alkaline Phosphatase Total Protein Albumin Blood Type A Positive Antibody Screen Negative Crossmatch See Detail Quality VTE Prophylaxis VTE prophylaxis: mechanical ordered and pharmacologic ordered Hospitalist MIPS Advance Care Plan I have confirmed that the patient's Advanced Care Plan is present, code status is documented, or surrogate decision maker is listed in patient medical record.: Yes Medication Reconciliation I have utilized all available resources to obtain, update and review the patients current medications (includes all prescriptions, OTC, herbals, cannabis, and nutritional supplements).: Yes
--- NOTE | 2024-12-19 16:58 | PC.NURSE ---
On 12/19/24, the student, [Magdalena Santiago ], provided care and completed [facility] documentation on this patient. I have reviewed the student's documentation and agree with the findings.
--- NOTE | 2024-12-19 16:58 | PC.NURSE ---
On 12/19/24, the student, [Kaela Castano ], provided care and [facility]. I have reviewed the student's documentation and agree with the findings.
[2024-12-19 17:08] LABS: Glucose Point of Care 84 mg/dl (65-105)
[2024-12-19 20:49] LABS: Glucose Point of Care 131 mg/dl (65-105)
[2024-12-19] MEDS: MIRTAZAPINE 15 MG TABLET PO (21:01)
[2024-12-20 06:00] VITALS: BP 133/80; PULSE 66; RESP 12; TEMP 36.8; O2SAT 95
[2024-12-20] MEDS: metroNIDAZOLE 500 MG TABLET PO ×3 (06:06→21:06)
[2024-12-20 07:29] LABS: Hematocrit 26.9 % (42.0-52.0); Hemoglobin 8.6 g/dL (14.0-18.0); Mean Corpuscular Hemoglobin 28.8 pg (26-34); Mean Platelet Volume 9.8 fl (7.4-10.4); Platelet Count Result 554 k/mm3 (150-375); Red Blood Count 2.99 M/mm3 (4.6-6.20); Red Cell Distribution Width 15.8 % (11.5-14.5); White Blood Count 9.7 K/mm3 (4.5-10.0)
[2024-12-20 07:48] LABS: Alanine Aminotransferase 13 U/L (6-50); Albumin Level 2.8 g/dL (3.5-5.1); Alkaline Phosphatase 132 U/L (38-126); Aspartate Amino Transferase 32 U/L (17-59); Bilirubin,Total 0.5 mg/dL (0.2-1.3); Blood Urea Nitrogen 29 mg/dL (9-20); Calcium 8.4 mg/dL (8.4-10.2); Carbon Dioxide 29 mmol/L (22-30); Chloride 103 mmol/L (98-107); Estimated CRCL calculation 33 ml/min; Estimated Glomerular Filt Rate > 60; Glucose 84 mg/dL (65-110)
[2024-12-20 08:01] LABS: Anion Gap 7 mmol/L (4-12); Sodium 139 mmol/L (137-145)
[2024-12-20 08:35] LABS: Glucose Point of Care 106 mg/dl (65-105)
[2024-12-20] MEDS: droNABinol (*CRX) 2.5 MG CAPSULE 10 MG PO ×2 (10:27→17:59)
[2024-12-20] MEDS: ENOXAPARIN 40 MG/0.4 ML SYRINGE SUB-Q (10:28)
[2024-12-20] MEDS: FOLIC ACID 1 MG TABLET PO (10:29)
[2024-12-20] MEDS: THIAMINE HCL 200 MG/2 ML VIAL 100 MG IV PUSH (10:29)
[2024-12-20] MEDS: POTASSIUM CHLORIDE 20 MEQ PACKET (FOR LIQUID) PO (10:32)
[2024-12-20] MEDS: PANTOPRAZOLE SODIUM IV 40 MG VIAL IV PUSH ×2 (10:32→21:06)
[2024-12-20] MEDS: PSYLLIUM POWDER PACKET 1 PACKET PO (10:32)
[2024-12-20 12:00] LABS: Glucose Point of Care 171 mg/dl (65-105)
[2024-12-20 14:00] VITALS: BP 118/85; PULSE 71; RESP 16; TEMP 37.3; O2SAT 97
--- NOTE | 2024-12-20 15:58 | PM.IMPN ---
Progress Note: A&P Assessment and Plan (1) Metabolic acidosis: Code(s): E87.20 - Acidosis, unspecified Status: Acute Assessment and Plan: resolved (2) DEBI (acute kidney injury): Code(s): N17.9 - Acute kidney failure, unspecified Status: Acute Assessment and Plan: Creatinine seems to have stabilized at 1.54 Nephrology following (3) Perforated gastric ulcer: Qualifiers: Gastric ulcer chronicity: acute Qualified Code(s): K25.1 - Acute gastric ulcer with perforation Code(s): K25.5 - Chronic or unspecified gastric ulcer with perforation Status: Acute Assessment and Plan: Resolved Continue with Protonix and monitor hgb (4) COPD (chronic obstructive pulmonary disease): Code(s): J44.9 - Chronic obstructive pulmonary disease, unspecified Status: Acute Assessment and Plan: Stable on current medications. Will continue current treatment. (5) Sepsis: Code(s): A41.9 - Sepsis, unspecified organism Status: Acute Assessment and Plan: Completed antibiotics (6) Pneumonia: Code(s): J18.9 - Pneumonia, unspecified organism Status: Acute Assessment and Plan: Completed antibiotics pneumonia resolved Repeat CXR showed pulm edema and Pleural effusion now on lasix (7) Acute hypoxic respiratory failure: Code(s): J96.01 - Acute respiratory failure with hypoxia Status: Acute Assessment and Plan: resolved CXR showed pulm edema and pleural effusion continue Lasix 20mg bid and monitor renal function ECHO from june normal function monitor (8) Sepsis associated hypotension: Code(s): A41.9 - Sepsis, unspecified organism; I95.9 - Hypotension, unspecified Status: Acute Assessment and Plan: completed antibiotics (9) EtOH dependence: Code(s): F10.20 - Alcohol dependence, uncomplicated Status: Acute Assessment and Plan: Counselling given (10) Failure to thrive: Status: Acute Plan Consulted Hospice Perforated Gastric ulcer Patient underwent surgery on 11/05. Patient condition has been declining after the perforated gastric ulcer. s/p perc drain due to spleen and liver abscess. Failure to thrive Patient has multiple co-morbid condition including COPD,alcohol abuse, perforated ulcer, liver abscess,and recent surgical stress. encourage to eat, on Dronabinol Discussed with his brother who is POA. Diarrhea Resolved Stool culture and C diff negative Likely from pureed diet started on PRN Imodium leukocytosis resolved, WBC 9.9 Surgery re-evaluated the re-demonstration of subcapsular fluid collections within both the liver and spleen for which abscess formation is suspected.. Underwent perc drain on 12/05 Repeat blood culture pending. CXR done several days ago showed pulm edema and patient has responded to lasix and off oxygen Lactic acid normal Repeated blood culture Subcapsular Spleen and Liver on percutaneous drainage repeat CT showed improving, half the prior volume. Gen surgery following Anemia Hb 8.1, isat 28 and Ferritin 506 Iron replete B12/Folate wnl Liver and splenic abscess resolving repeat CT showed marked drainage Surgery removed drains day 04/03 Levaquin and Flagyl F/u with Gen surgery as instructed Code status DNR DVT prophylaxis on Sq Lovenox PT[facility]OT following [facility] evaluating Subjective Date/time seen: 12/20/24 15:58 Interval history: P[facility] approval to [facility]. Review of Systems Review of Systems: Pt with a dry throat not talking loudly ROS unobtainable: Yes unobtainable due to endotracheal tube, unobtainable due to medical condition and unobtainable due to mental status Exam Narrative: General: More alert toady Lungs/Chest: Trachea central Coarse BS B/L, No crackles or wheezing. Cardiac: RRR. Normal S1 S2. No murmurs Abdomen: Decreased but present bowel sounds. Extremities: No clubbing, cyanosis or edema. Warm : Shen in place Neurologic: Patient is able to move all 4 extremities spontaneously. Objective Data Vital Signs Vital Signs: Vital Signs - 24 hr 12/19/24 16:55 12/19/24 21:00 12/19/24 21:32 Temperature 97.9 F 98.2 F Pulse Rate 71 77 77 Respiratory Rate 14 16 16 Blood Pressure 126/71 110/73 Pulse Oximetry 98 98 98 Oxygen Delivery Room Air Fraction of Inspired Oxygen 24 12/20/24 06:00 12/20/24 14:00 Temperature 98.2 F 99.1 F Pulse Rate 66 71 Respiratory Rate 12 16 Blood Pressure 133/80 118/85 Pulse Oximetry 95 97 Oxygen Delivery Fraction of Inspired Oxygen Intake/Output Intake/Output: Intake & Output 12/17/24 12/18/24 12/19/24 12/20/24 23:59 23:59 23:59 23:59 Intake Total 1015 1940 760 722 Balance 1015 1940 760 722 Meds/Results Medications: Active Medications Generic Name Dose Route Start Last Admin Trade Name Freq PRN Reason Stop Dose Admin Acetaminophen 325 mg 12/19/24 15:45 Acetaminophen 325 Mg Tablet PO Q4H PRN Mild Pain (1-3) or Fever Albuterol 2.5 mg 12/08/24 16:23 Albuterol Sulfate Neb 2.5 Mg/3 Ml Inh INHALATION Q12HR PRN Shortness Of Breath Amlodipine Besylate 10 mg 12/02/24 09:00 12/14/24 10:08 Amlodipine Besylate 10 Mg Tablet PO 10 mg DAILY SOURAV Administration Dextrose 12.5 gm 11/06/24 07:40 11/21/24 16:58 Dextrose 50% 25 Gm/50 Ml Syringe IV PUSH 12.5 gm PRN PRN Administration Hypoglycemia Protocol Dronabinol 10 mg 12/15/24 17:00 12/20/24 10:27 Dronabinol (*Crx) 2.5 Mg Capsule PO 10 mg BID SOURAV Administration Enoxaparin Sodium 40 mg 12/19/24 09:00 12/20/24 10:28 Enoxaparin 40 Mg/0.4 Ml Syringe SUB-Q 40 mg DAILY SOURAV Administration Folic Acid 1 mg 12/20/24 09:00 12/20/24 10:29 Folic Acid 1 Mg Tablet PO 1 mg DAILY SOURAV Administration Glucagon 1 mg 11/06/24 07:40 Glucagon For Inj 1 Mg Vial IM PRN PRN Hypoglycemia Protocol Glucose 15 gm 11/06/24 07:40 Glucose Oral Gel 15 Gm Of Glucse In 37.5 Gm Tube PO PRN PRN Hypoglycemia Protocol Hydrochlorothiazide 25 mg 12/03/24 09:00 12/14/24 10:08 Hydrochlorothiazide 25 Mg Tablet PO 25 mg QAM SOURAV Administration Dextrose 1,000 mls @ 100 mls/hr 11/06/24 07:40 Dextrose 5% 1,000 Ml IVPB PRN PRN Hypoglycemia Protocol Levofloxacin 750 mg 12/12/24 19:00 12/18/24 19:46 Levofloxacin 750 Mg Tablet PO 750 mg Q48H SOURAV Administration Loperamide HCl 2 mg 12/01/24 10:59 12/01/24 15:17 Loperamide Hcl 2 Mg Capsule PO 2 mg PRN PRN Administration Diarrhea Metronidazole 500 mg 12/12/24 14:00 12/20/24 14:09 Metronidazole 500 Mg Tablet PO 500 mg Q8HR SOURAV Administration Mirtazapine 15 mg 11/30/24 21:00 12/19/24 21:01 Mirtazapine 15 Mg Tablet PO 15 mg HS SOURAV Administration Miscellaneous Information 1 each 12/19/24 00:01 Order Clarification XX 01/18/25 00:00 CLARIFY SOURAV Naloxone HCl 0.1 mg 12/08/24 16:21 Naloxone Hcl 0.4 Mg/Ml Vial IV PUSH Q2M PRN Opiate Reversal Ondansetron HCl 4 mg 12/08/24 16:21 12/14/24 13:07 Ondansetron Inj 4 Mg/2 Ml Vial IV PUSH 4 mg Q4H PRN Administration Nausea And Vomiting Pantoprazole Sodium 40 mg 12/08/24 21:00 12/20/24 10:32 Pantoprazole Sodium Iv 40 Mg Vial IV PUSH 40 mg Q12HR SOURAV Administration Potassium Chloride 20 meq 12/06/24 09:00 12/20/24 10:32 Potassium Chloride 20 Meq Packet (For Liquid) PO 20 meq DAILY SOURAV Administration Psyllium Hydrophilic Mucilloid 1 packet 11/29/24 09:00 12/20/24 10:32 Psyllium Powder Packet PO 1 packet QAM SOURAV Administration Thiamine HCl 100 mg 12/08/24 09:00 12/20/24 10:29 Thiamine Hcl 200 Mg/2 Ml Vial IV PUSH 100 mg QAM SOURAV Administration Radiology Results: ITS Impressions Head CT 11/05/24 20:50 IMPRESSION: 1. Moderate nonspecific cerebral white matter disease, which likely represents chronic small vessel ischemic disease. 2. 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 Upper GI Series 11/08/24 12:17 IMPRESSION: 1. Slow gastric emptying likely related to postoperative ileus. No extraluminal leakage of contrast. Abdomen X-Ray 11/14/24 11:13 IMPRESSION: Nonspecific, nonobstructive bowel gas pattern. Supportive devices unchanged in position. Bilateral pleural effusions. If clinical suspicion persists, CT examination of the abdomen and pelvis (with intravenous contrast) is suggested for further evaluation. Renal Ultrasound 11/19/24 16:17 IMPRESSION: No hydronephrosis or renal calculi. Findings suggesting medical renal disease. Free fluid within the pelvis. Venous Doppler Study 11/22/24 10:28 IMPRESSION: 1. No deep venous thrombosis in either lower limb. Renal Scan Nuclear Medicine 11/23/24 14:21 IMPRESSION: 1. Symmetric kidney function. 2. Delayed activity clearance from both kidneys with continually rising activity curves extending over the 30 minutes of observation and without associated hydronephrosis consistent with nonspecific, nonobstructive nephropathy. Modified Barium Swallow 11/26/24 10:39 IMPRESSION: 1. Trace laryngeal penetration. 2. Please refer to the speech therapy report for recommendations. Chest/Abdomen/Pelvis CT 12/02/24 14:47 IMPRESSION: Redemonstration of subcapsular fluid collections within both the liver and spleen (as detailed above) for which abscess formation is suspected. Both collections are amenable to percutaneous drainage. Bilateral large pleural effusions, with adjacent consolidation, decreased from prior. Catheter Placement CT 12/05/24 15:17 IMPRESSION: 1. Successful CT-guided subcapsular liver abscess drainage. 2. 2 mL opaque, moore fluid was sent for aerobic and anaerobic cultures. 3. Moderate-sized pleural effusions. 4. Moderate volume of ascites. Consider peritoneal drain placement. Chest X-Ray 12/08/24 12:28 IMPRESSION: 1. Stable airspace opacities at the lung bases, consistent with atelectasis versus pneumonia. 2. Stable small pleural effusions. 3. Emphysema. Abdomen/Pelvis CT 12/10/24 15:20 IMPRESSION: 1. Percutaneous abscess drains within a subcapsular fluid collections at the spleen and liver, both of which approximately half the volume of the prior study. 2. Persistent anasarca with extensive soft tissue edema and 3. Decrease in size of small bilateral pleural effusions. 4. Tree-in-bud opacities in the bilateral lower lobes consistent with pneumonia. Moderate amount of ascites throughout the abdomen and pelvis. Labs Labs: Laboratory Results - last 24 hr 12/19/24 12/19/24 12/19/24 09:45 16:55 20:20 WBC RBC Hgb Hct MCV MCH MCHC RDW Plt Count MPV Sodium Potassium Chloride Carbon Dioxide Anion Gap BUN Creatinine Estim Creat Clear Calc Estimated GFR Glucose POC Capillary Glucose 84 131 H Calcium Total Bilirubin AST ALT Alkaline Phosphatase Total Protein Albumin Crossmatch See Detail 12/20/24 12/20/24 12/20/24 06:54 07:54 11:25 WBC 9.7 RBC 2.99 L Hgb 8.6 L Hct 26.9 L MCV 90.0 MCH 28.8 D MCHC 32.0 RDW 15.8 H Plt Count 554 H MPV 9.8 Sodium 139 Potassium 4.0 Chloride 103 Carbon Dioxide 29 Anion Gap 7 BUN 29 H Creatinine 1.17 Estim Creat Clear Calc 33 Estimated GFR > 60 Glucose 84 POC Capillary Glucose 106 H 171 H Calcium 8.4 Total Bilirubin 0.5 AST 32 ALT 13 Alkaline Phosphatase 132 H Total Protein 6.0 L Albumin 2.8 L Crossmatch Quality VTE Prophylaxis VTE prophylaxis: mechanical ordered and pharmacologic ordered Hospitalist MIPS Advance Care Plan I have confirmed that the patient's Advanced Care Plan is present, code status is documented, or surrogate decision maker is listed in patient medical record.: Yes Medication Reconciliation I have utilized all available resources to obtain, update and review the patients current medications (includes all prescriptions, OTC, herbals, cannabis, and nutritional supplements).: Yes
[2024-12-20 16:39] LABS: Glucose Point of Care 142 mg/dl (65-105)
[2024-12-20] MEDS: levoFLOXacin 750 MG TABLET PO (17:59)
[2024-12-20 21:00] VITALS: PULSE 71; RESP 16; O2SAT 97
[2024-12-20] MEDS: MIRTAZAPINE 15 MG TABLET PO (21:06)
[2024-12-20 21:13] LABS: Glucose Point of Care 139 mg/dl (65-105)
[2024-12-20 21:43] VITALS: BP 115/76; PULSE 79; RESP 14; TEMP 36.4; O2SAT 97
[2024-12-21 06:00] VITALS: BP 138/79; PULSE 60; RESP 14; TEMP 36.8; O2SAT 97
[2024-12-21] MEDS: metroNIDAZOLE 500 MG TABLET PO (06:03)
[2024-12-21] MEDS: ACETAMINOPHEN 325 MG TABLET PO (06:19)
[2024-12-21 07:35] LABS: Hemoglobin 9.1 g/dL (14.0-18.0); Mean Corpuscular HGB Conc 31.4 g/dl (32-36); Mean Corpuscular Hemoglobin 28.1 pg (26-34); Mean Corpuscular Volume 89.5 fl (80-100); Mean Platelet Volume 9.7 fl (7.4-10.4); Platelet Count Result 591 k/mm3 (150-375); Red Blood Count 3.24 M/mm3 (4.6-6.20); Red Cell Distribution Width 15.9 % (11.5-14.5); White Blood Count 8.5 K/mm3 (4.5-10.0)
[2024-12-21 07:38] LABS: Alanine Aminotransferase 15 U/L (6-50); Albumin Level 2.7 g/dL (3.5-5.1); Alkaline Phosphatase 154 U/L (38-126); Anion Gap 6 mmol/L (4-12); Aspartate Amino Transferase 36 U/L (17-59); Bilirubin,Total 0.4 mg/dL (0.2-1.3); Blood Urea Nitrogen 28 mg/dL (9-20); Calcium 8.4 mg/dL (8.4-10.2); Carbon Dioxide 31 mmol/L (22-30); Chloride 102 mmol/L (98-107); Estimated CRCL calculation 39 ml/min; Estimated Glomerular Filt Rate > 60; Glucose 81 mg/dL (65-110); Potassium 3.9 mmol/L (3.4-5.0); Sodium 139 mmol/L (137-145)
[2024-12-21 07:58] LABS: Glucose Point of Care 114 mg/dl (65-105)
[2024-12-21] MEDS: droNABinol (*CRX) 2.5 MG CAPSULE 10 MG PO ×2 (08:57→17:52)
[2024-12-21] MEDS: FOLIC ACID 1 MG TABLET PO (08:57)
[2024-12-21] MEDS: THIAMINE HCL 200 MG/2 ML VIAL 100 MG IV PUSH (08:58)
[2024-12-21] MEDS: ENOXAPARIN 40 MG/0.4 ML SYRINGE SUB-Q (08:58)
[2024-12-21] MEDS: POTASSIUM CHLORIDE 20 MEQ PACKET (FOR LIQUID) PO (08:59)
[2024-12-21] MEDS: PANTOPRAZOLE SODIUM IV 40 MG VIAL IV PUSH ×2 (08:59→20:31)
--- NOTE | 2024-12-21 10:10 | PCNFU ---
Nutrition Follow-Up Complete: Alerted GI function as related to perforated gastric ulcer as evidenced by NPO. Meet estimated nutritional needs. - Progressing with intakes 50-100% on current diet Goal: Pt current nutrition is Soft & bite sizes with Ensure Enlive TID (350 kcal, 20 g protein). Nutrition recommendation: No new nutrition recommendations. Continue current nutrition care plan and orders. Agree with orders Last recorded weight is 44 kg. Bowel Motility: +1 BM 12/21/24 Labs Reviewed: Hgb 9.1, Hct 29, Alb 2.7, BUN 28 Meds Noted: Thiamine, folic acid, lovenox, protonix, insulin Skin: WNL Additional Notes: Intakes are improving after advanced to soft & bite sized. Awaiting transfer Will monitor weight, labs, skin, diet orders, meds follow up every 7 days.
[2024-12-21 11:34] LABS: Glucose Point of Care 198 mg/dl (65-105)
[2024-12-21 14:00] VITALS: BP 110/70; PULSE 79; RESP 18; TEMP 36.9; O2SAT 96
--- NOTE | 2024-12-21 16:03 | PM.IMPN ---
Progress Note: A&P Assessment and Plan (1) Metabolic acidosis: Code(s): E87.20 - Acidosis, unspecified Status: Acute Assessment and Plan: resolved (2) DEBI (acute kidney injury): Code(s): N17.9 - Acute kidney failure, unspecified Status: Acute Assessment and Plan: Creatinine seems to have stabilized at 1.54 Nephrology following (3) Perforated gastric ulcer: Qualifiers: Gastric ulcer chronicity: acute Qualified Code(s): K25.1 - Acute gastric ulcer with perforation Code(s): K25.5 - Chronic or unspecified gastric ulcer with perforation Status: Acute Assessment and Plan: Resolved Continue with Protonix and monitor hgb (4) COPD (chronic obstructive pulmonary disease): Code(s): J44.9 - Chronic obstructive pulmonary disease, unspecified Status: Acute Assessment and Plan: Stable on current medications. Will continue current treatment. (5) Sepsis: Code(s): A41.9 - Sepsis, unspecified organism Status: Acute Assessment and Plan: Completed antibiotics (6) Pneumonia: Code(s): J18.9 - Pneumonia, unspecified organism Status: Acute Assessment and Plan: Completed antibiotics pneumonia resolved Repeat CXR showed pulm edema and Pleural effusion now on lasix (7) Acute hypoxic respiratory failure: Code(s): J96.01 - Acute respiratory failure with hypoxia Status: Acute Assessment and Plan: resolved CXR showed pulm edema and pleural effusion continue Lasix 20mg bid and monitor renal function ECHO from june normal function monitor (8) Sepsis associated hypotension: Code(s): A41.9 - Sepsis, unspecified organism; I95.9 - Hypotension, unspecified Status: Acute Assessment and Plan: completed antibiotics (9) EtOH dependence: Code(s): F10.20 - Alcohol dependence, uncomplicated Status: Acute Assessment and Plan: Counselling given (10) Failure to thrive: Status: Acute Plan Consulted Hospice Perforated Gastric ulcer Patient underwent surgery on 11/05. Patient condition has been declining after the perforated gastric ulcer. s/p perc drain due to spleen and liver abscess. Failure to thrive Patient has multiple co-morbid condition including COPD,alcohol abuse, perforated ulcer, liver abscess,and recent surgical stress. encourage to eat, on Dronabinol Discussed with his brother who is POA. Diarrhea Resolved Stool culture and C diff negative Likely from pureed diet started on PRN Imodium leukocytosis resolved, WBC 9.9 Surgery re-evaluated the re-demonstration of subcapsular fluid collections within both the liver and spleen for which abscess formation is suspected.. Underwent perc drain on 12/05 Repeat blood culture pending. CXR done several days ago showed pulm edema and patient has responded to lasix and off oxygen Lactic acid normal Repeated blood culture Subcapsular Spleen and Liver on percutaneous drainage repeat CT showed improving, half the prior volume. Gen surgery following Anemia Hb 8.1, isat 28 and Ferritin 506 Iron replete B12/Folate wnl Liver and splenic abscess resolving repeat CT showed marked drainage Surgery removed drains day 04/03 Levaquin and Flagyl F/u with Gen surgery as instructed Code status DNR DVT prophylaxis on Sq L[facility] Subjective Date/time seen: 12/21/24 16:03 Interval history: [facility]. Review of Systems Review of Systems: Pt with a dry throat not talking loudly ROS unobtainable: Yes unobtainable due to endotracheal tube, unobtainable due to medical condition and unobtainable due to mental status Exam Narrative: General: More alert toady Lungs/Chest: Trachea central Coarse BS B/L, No crackles or wheezing. Cardiac: RRR. Normal S1 S2. No murmurs Abdomen: Decreased but present bowel sounds. Extremities: No clubbing, cyanosis or edema. Warm : Shen in place Neurologic: Patient is able to move all 4 extremities spontaneously. Objective Data Vital Signs Vital Signs: Vital Signs - 24 hr 12/20/24 21:00 12/20/24 21:43 12/21/24 06:00 Temperature 97.6 F 98.2 F Pulse Rate 71 79 60 Respiratory Rate 16 14 14 Blood Pressure 115/76 138/79 Pulse Oximetry 97 97 97 Oxygen Delivery Room Air Fraction of Inspired Oxygen 24 12/21/24 09:00 12/21/24 14:00 Temperature 98.5 F Pulse Rate 79 Respiratory Rate 18 Blood Pressure 110/70 Pulse Oximetry 96 Oxygen Delivery Room Air Fraction of Inspired Oxygen Intake/Output Intake/Output: Intake & Output 12/18/24 12/19/24 12/20/24 12/21/24 23:59 23:59 23:59 23:59 Intake Total 1939 605 958 680 Balance 1939 760 958 680 Meds/Results Medications: Active Medications Generic Name Dose Route Start Last Admin Trade Name Freq PRN Reason Stop Dose Admin Acetaminophen 325 mg 12/19/24 15:45 12/21/24 06:19 Acetaminophen 325 Mg Tablet PO 325 mg Q4H PRN Administration Mild Pain (1-3) or Fever Albuterol 2.5 mg 12/08/24 16:23 Albuterol Sulfate Neb 2.5 Mg/3 Ml Inh INHALATION Q12HR PRN Shortness Of Breath Amlodipine Besylate 10 mg 12/02/24 09:00 12/14/24 10:08 Amlodipine Besylate 10 Mg Tablet PO 10 mg DAILY SOURAV Administration Dextrose 12.5 gm 11/06/24 07:40 11/21/24 16:58 Dextrose 50% 25 Gm/50 Ml Syringe IV PUSH 12.5 gm PRN PRN Administration Hypoglycemia Protocol Dronabinol 10 mg 12/15/24 17:00 12/21/24 08:57 Dronabinol (*Crx) 2.5 Mg Capsule PO 10 mg BID SOURAV Administration Enoxaparin Sodium 40 mg 12/19/24 09:00 12/21/24 08:58 Enoxaparin 40 Mg/0.4 Ml Syringe SUB-Q 40 mg DAILY SOURAV Administration Folic Acid 1 mg 12/20/24 09:00 12/21/24 08:57 Folic Acid 1 Mg Tablet PO 1 mg DAILY SOURAV Administration Glucagon 1 mg 11/06/24 07:40 Glucagon For Inj 1 Mg Vial IM PRN PRN Hypoglycemia Protocol Glucose 15 gm 11/06/24 07:40 Glucose Oral Gel 15 Gm Of Glucse In 37.5 Gm Tube PO PRN PRN Hypoglycemia Protocol Hydrochlorothiazide 25 mg 12/03/24 09:00 12/14/24 10:08 Hydrochlorothiazide 25 Mg Tablet PO 25 mg QAM SOURAV Administration Dextrose 1,000 mls @ 100 mls/hr 11/06/24 07:40 Dextrose 5% 1,000 Ml IVPB PRN PRN Hypoglycemia Protocol Loperamide HCl 2 mg 12/01/24 10:59 12/01/24 15:17 Loperamide Hcl 2 Mg Capsule PO 2 mg PRN PRN Administration Diarrhea Mirtazapine 15 mg 11/30/24 21:00 12/20/24 21:06 Mirtazapine 15 Mg Tablet PO 15 mg HS SOURAV Administration Naloxone HCl 0.1 mg 12/08/24 16:21 Naloxone Hcl 0.4 Mg/Ml Vial IV PUSH Q2M PRN Opiate Reversal Ondansetron HCl 4 mg 12/08/24 16:21 12/14/24 13:07 Ondansetron Inj 4 Mg/2 Ml Vial IV PUSH 4 mg Q4H PRN Administration Nausea And Vomiting Pantoprazole Sodium 40 mg 12/08/24 21:00 12/21/24 08:59 Pantoprazole Sodium Iv 40 Mg Vial IV PUSH 40 mg Q12HR SOURAV Administration Potassium Chloride 20 meq 12/06/24 09:00 12/21/24 08:59 Potassium Chloride 20 Meq Packet (For Liquid) PO 20 meq DAILY SOURAV Administration Psyllium Hydrophilic Mucilloid 1 packet 11/29/24 09:00 12/21/24 08:56 Psyllium Powder Packet PO Not Given QAM SOURAV Thiamine HCl 100 mg 12/08/24 09:00 12/21/24 08:58 Thiamine Hcl 200 Mg/2 Ml Vial IV PUSH 100 mg QAM SOURAV Administration Radiology Results: ITS Impressions Head CT 11/05/24 20:50 IMPRESSION: 1. Moderate nonspecific cerebral white matter disease, which likely represents chronic small vessel ischemic disease. 2. 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 Upper GI Series 11/08/24 12:17 IMPRESSION: 1. Slow gastric emptying likely related to postoperative ileus. No extraluminal leakage of contrast. Abdomen X-Ray 11/14/24 11:13 IMPRESSION: Nonspecific, nonobstructive bowel gas pattern. Supportive devices unchanged in position. Bilateral pleural effusions. If clinical suspicion persists, CT examination of the abdomen and pelvis (with intravenous contrast) is suggested for further evaluation. Renal Ultrasound 11/19/24 16:17 IMPRESSION: No hydronephrosis or renal calculi. Findings suggesting medical renal disease. Free fluid within the pelvis. Venous Doppler Study 11/22/24 10:28 IMPRESSION: 1. No deep venous thrombosis in either lower limb. Renal Scan Nuclear Medicine 11/23/24 14:21 IMPRESSION: 1. Symmetric kidney function. 2. Delayed activity clearance from both kidneys with continually rising activity curves extending over the 30 minutes of observation and without associated hydronephrosis consistent with nonspecific, nonobstructive nephropathy. Modified Barium Swallow 11/26/24 10:39 IMPRESSION: 1. Trace laryngeal penetration. 2. Please refer to the speech therapy report for recommendations. Chest/Abdomen/Pelvis CT 12/02/24 14:47 IMPRESSION: Redemonstration of subcapsular fluid collections within both the liver and spleen (as detailed above) for which abscess formation is suspected. Both collections are amenable to percutaneous drainage. Bilateral large pleural effusions, with adjacent consolidation, decreased from prior. Catheter Placement CT 12/05/24 15:17 IMPRESSION: 1. Successful CT-guided subcapsular liver abscess drainage. 2. 2 mL opaque, moore fluid was sent for aerobic and anaerobic cultures. 3. Moderate-sized pleural effusions. 4. Moderate volume of ascites. Consider peritoneal drain placement. Chest X-Ray 12/08/24 12:28 IMPRESSION: 1. Stable airspace opacities at the lung bases, consistent with atelectasis versus pneumonia. 2. Stable small pleural effusions. 3. Emphysema. Abdomen/Pelvis CT 12/10/24 15:20 IMPRESSION: 1. Percutaneous abscess drains within a subcapsular fluid collections at the spleen and liver, both of which approximately half the volume of the prior study. 2. Persistent anasarca with extensive soft tissue edema and 3. Decrease in size of small bilateral pleural effusions. 4. Tree-in-bud opacities in the bilateral lower lobes consistent with pneumonia. Moderate amount of ascites throughout the abdomen and pelvis. Labs Labs: Laboratory Results - last 24 hr 12/20/24 12/20/24 12/21/24 16:32 19:33 06:54 WBC 8.5 RBC 3.24 L Hgb 9.1 L Hct 29.0 L MCV 89.5 MCH 28.1 MCHC 31.4 L RDW 15.9 H Plt Count 591 H MPV 9.7 Sodium 139 Potassium 3.9 Chloride 102 Carbon Dioxide 31 H Anion Gap 6 BUN 28 H Creatinine 0.97 Estim Creat Clear Calc 39 Estimated GFR > 60 Glucose 81 POC Capillary Glucose 142 H 139 H Calcium 8.4 Total Bilirubin 0.4 AST 36 ALT 15 Alkaline Phosphatase 154 H Total Protein 6.0 L Albumin 2.7 L 12/21/24 12/21/24 07:50 11:22 WBC RBC Hgb Hct MCV MCH MCHC RDW Plt Count MPV Sodium Potassium Chloride Carbon Dioxide Anion Gap BUN Creatinine Estim Creat Clear Calc Estimated GFR Glucose POC Capillary Glucose 114 H 198 H Calcium Total Bilirubin AST ALT Alkaline Phosphatase Total Protein Albumin Quality VTE Prophylaxis VTE prophylaxis: mechanical ordered and pharmacologic ordered Hospitalist [facility] Advance Care Plan I have confirmed that the patient's Advanced Care Plan is present, code status is documented, or surrogate decision maker is listed in patient medical record.: Yes Medication Reconciliation I have utilized all available resources to obtain, update and review the patients current medications (includes all prescriptions, OTC, herbals, cannabis, and nutritional supplements).: Yes
[2024-12-21 16:25] LABS: Glucose Point of Care 213 mg/dl (65-105)
--- NOTE | 2024-12-21 16:48 | PCPTNOTE ---
Patient refused PT this afternoon. Patient states he was up in chair for a while and just put himself back to bed. Patient states I had a hard time trying to get back to bed. I am very weak. I can't believe I am this weak.
[2024-12-21 20:30] VITALS: PULSE 68; RESP 16; O2SAT 98
[2024-12-21] MEDS: MIRTAZAPINE 15 MG TABLET PO (20:31)
[2024-12-21 20:45] LABS: Glucose Point of Care 188 mg/dl (65-105)
[2024-12-21 21:45] VITALS: BP 127/79; PULSE 68; RESP 16; TEMP 36.6; O2SAT 98
[2024-12-22 05:14] VITALS: BP 143/84; PULSE 64; RESP 14; TEMP 36.9; O2SAT 96
[2024-12-22 07:47] LABS: Glucose Point of Care 188 mg/dl (65-105)
[2024-12-22 08:00] VITALS: PULSE 58; RESP 14; O2SAT 97
[2024-12-22] MEDS: PANTOPRAZOLE SODIUM IV 40 MG VIAL IV PUSH ×2 (08:34→21:15)
[2024-12-22] MEDS: ENOXAPARIN 40 MG/0.4 ML SYRINGE SUB-Q (08:34)
[2024-12-22] MEDS: THIAMINE HCL 200 MG/2 ML VIAL 100 MG IV PUSH (08:34)
[2024-12-22] MEDS: PSYLLIUM POWDER PACKET 1 PACKET PO (08:34)
[2024-12-22] MEDS: droNABinol (*CRX) 2.5 MG CAPSULE 10 MG PO ×2 (08:34→16:39)
[2024-12-22] MEDS: POTASSIUM CHLORIDE 20 MEQ PACKET (FOR LIQUID) PO (08:34)
[2024-12-22 11:48] LABS: Glucose Point of Care 101 mg/dl (65-105)
[2024-12-22] MEDS: FOLIC ACID 1 MG TABLET PO (12:04)
[2024-12-22 14:00] VITALS: BP 144/80; PULSE 58; RESP 14; TEMP 36.6; O2SAT 97
[2024-12-22 17:00] LABS: Glucose Point of Care 91 mg/dl (65-105)
--- NOTE | 2024-12-22 17:17 | P.PNIM_ITS ---
Progress Note: A&P Assessment and Plan (1) Metabolic acidosis: Code(s): E87.20 - Acidosis, unspecified Status: Acute Assessment and Plan: resolved (2) DEBI (acute kidney injury): Code(s): N17.9 - Acute kidney failure, unspecified Status: Acute Assessment and Plan: Creatinine seems to have stabilized at 1.54 Nephrology following (3) Perforated gastric ulcer: Qualifiers: Gastric ulcer chronicity: acute Qualified Code(s): K25.1 - Acute gastric ulcer with perforation Code(s): K25.5 - Chronic or unspecified gastric ulcer with perforation Status: Acute Assessment and Plan: Resolved Continue with Protonix and monitor hgb (4) COPD (chronic obstructive pulmonary disease): Code(s): J44.9 - Chronic obstructive pulmonary disease, unspecified Status: Acute Assessment and Plan: Stable on current medications. Will continue current treatment. (5) Sepsis: Code(s): A41.9 - Sepsis, unspecified organism Status: Acute Assessment and Plan: Completed antibiotics (6) Pneumonia: Code(s): J18.9 - Pneumonia, unspecified organism Status: Acute Assessment and Plan: Completed antibiotics pneumonia resolved Repeat CXR showed pulm edema and Pleural effusion now on lasix (7) Acute hypoxic respiratory failure: Code(s): J96.01 - Acute respiratory failure with hypoxia Status: Acute Assessment and Plan: resolved CXR showed pulm edema and pleural effusion continue Lasix 20mg bid and monitor renal function ECHO from june normal function monitor (8) Sepsis associated hypotension: Code(s): A41.9 - Sepsis, unspecified organism; I95.9 - Hypotension, unspecified Status: Acute Assessment and Plan: completed antibiotics (9) EtOH dependence: Code(s): F10.20 - Alcohol dependence, uncomplicated Status: Acute Assessment and Plan: Counselling given (10) Failure to thrive: Status: Acute Plan Consulted Hospice Perforated Gastric ulcer Patient underwent surgery on 11/05. Patient condition has been declining after the perforated gastric ulcer. s/p perc drain due to spleen and liver abscess. Failure to thrive Patient has multiple co-morbid condition including COPD,alcohol abuse, perforated ulcer, liver abscess,and recent surgical stress. encourage to eat, on Dronabinol Discussed with his brother who is POA. Diarrhea Resolved Stool culture and C diff negative Likely from pureed diet started on PRN Imodium leukocytosis resolved, WBC 9.9 Surgery re-evaluated the re-demonstration of subcapsular fluid collections within both the liver and spleen for which abscess formation is suspected.. Underwent perc drain on 12/05 Repeat blood culture pending. CXR done several days ago showed pulm edema and patient has responded to lasix and off oxygen Lactic acid normal Repeated blood culture Subcapsular Spleen and Liver on percutaneous drainage repeat CT showed improving, half the prior volume. Gen surgery following Anemia Hb 8.1, isat 28 and Ferritin 506 Iron replete B12/Folate wnl Liver and splenic abscess resolving repeat CT showed marked drainage Surgery removed drains day 04/03 Levaquin and Flagyl F/u with Gen surgery as instructed Code status DNR DVT prophylaxis on Sq [facility] Subjective Date/time seen: 12/22/24 17:17 Interval history: No acute events reported. Patient is pending for [place] approval Review of Systems Review of Systems: Pt with a dry throat not talking loudly ROS unobtainable: Yes unobtainable due to endotracheal tube, unobtainable due to medical condition and unobtainable due to mental status Exam Narrative: General: More alert toady Lungs/Chest: Trachea central Coarse BS B/L, No crackles or wheezing. Cardiac: RRR. Normal S1 S2. No murmurs Abdomen: Decreased but present bowel sounds. Extremities: No clubbing, cyanosis or edema. Warm : Shen in place Neurologic: Patient is able to move all 4 extremities spontaneously. Objective Data Vital Signs Vital Signs: Vital Signs - 24 hr 12/21/24 20:30 12/21/24 21:45 12/22/24 05:14 Temperature 97.9 F 98.5 F Pulse Rate 68 68 64 Respiratory Rate 16 16 14 Blood Pressure 127/79 143/84 H Pulse Oximetry 98 98 96 Oxygen Delivery Room Air Fraction of Inspired Oxygen 24 12/22/24 08:00 12/22/24 14:00 Temperature 97.8 F Pulse Rate 58 L 58 L Respiratory Rate 14 14 Blood Pressure 144/80 H Pulse Oximetry 97 97 Oxygen Delivery Room Air Fraction of Inspired Oxygen 24 Intake/Output Intake/Output: Intake & Output 12/19/24 12/20/24 12/21/24 12/22/24 23:59 23:59 23:59 23:59 Intake Total 760 958 920 300 Balance 760 958 920 300 Meds/Results Medications: Active Medications Generic Name Dose Route Start Last Admin Trade Name Freq PRN Reason Stop Dose Admin Acetaminophen 325 mg 12/19/24 15:45 12/21/24 06:19 Acetaminophen 325 Mg Tablet PO 325 mg Q4H PRN Administration Mild Pain (1-3) or Fever Albuterol 2.5 mg 12/08/24 16:23 Albuterol Sulfate Neb 2.5 Mg/3 Ml Inh INHALATION Q12HR PRN Shortness Of Breath Amlodipine Besylate 10 mg 12/02/24 09:00 12/14/24 10:08 Amlodipine Besylate 10 Mg Tablet PO 10 mg DAILY SOURAV Administration Dextrose 12.5 gm 11/06/24 07:40 11/21/24 16:58 Dextrose 50% 25 Gm/50 Ml Syringe IV PUSH 12.5 gm PRN PRN Administration Hypoglycemia Protocol Dronabinol 10 mg 12/15/24 17:00 12/22/24 16:39 Dronabinol (*Crx) 2.5 Mg Capsule PO 10 mg BID SOURAV Administration Enoxaparin Sodium 40 mg 12/19/24 09:00 12/22/24 08:34 Enoxaparin 40 Mg/0.4 Ml Syringe SUB-Q 40 mg DAILY SOURAV Administration Folic Acid 1 mg 12/20/24 09:00 12/22/24 12:04 Folic Acid 1 Mg Tablet PO 1 mg DAILY SOURAV Administration Glucagon 1 mg 11/06/24 07:40 Glucagon For Inj 1 Mg Vial IM PRN PRN Hypoglycemia Protocol Glucose 15 gm 11/06/24 07:40 Glucose Oral Gel 15 Gm Of Glucse In 37.5 Gm Tube PO PRN PRN Hypoglycemia Protocol Hydrochlorothiazide 25 mg 12/03/24 09:00 12/14/24 10:08 Hydrochlorothiazide 25 Mg Tablet PO 25 mg QAM SOURAV Administration Dextrose 1,000 mls @ 100 mls/hr 11/06/24 07:40 Dextrose 5% 1,000 Ml IVPB PRN PRN Hypoglycemia Protocol Loperamide HCl 2 mg 12/01/24 10:59 12/01/24 15:17 Loperamide Hcl 2 Mg Capsule PO 2 mg PRN PRN Administration Diarrhea Mirtazapine 15 mg 11/30/24 21:00 12/21/24 20:31 Mirtazapine 15 Mg Tablet PO 15 mg HS SOURAV Administration Naloxone HCl 0.1 mg 12/08/24 16:21 Naloxone Hcl 0.4 Mg/Ml Vial IV PUSH Q2M PRN Opiate Reversal Ondansetron HCl 4 mg 12/08/24 16:21 12/14/24 13:07 Ondansetron Inj 4 Mg/2 Ml Vial IV PUSH 4 mg Q4H PRN Administration Nausea And Vomiting Pantoprazole Sodium 40 mg 12/08/24 21:00 12/22/24 08:34 Pantoprazole Sodium Iv 40 Mg Vial IV PUSH 40 mg Q12HR SOURAV Administration Potassium Chloride 20 meq 12/06/24 09:00 12/22/24 08:34 Potassium Chloride 20 Meq Packet (For Liquid) PO 20 meq DAILY SOURAV Administration Psyllium Hydrophilic Mucilloid 1 packet 11/29/24 09:00 12/22/24 08:34 Psyllium Powder Packet PO 1 packet QAM SOURAV Administration Thiamine HCl 100 mg 12/08/24 09:00 12/22/24 08:34 Thiamine Hcl 200 Mg/2 Ml Vial IV PUSH 100 mg QAM SOURAV Administration Radiology Results: ITS Impressions Head CT 11/05/24 20:50 IMPRESSION: 1. Moderate nonspecific cerebral white matter disease, which likely represents chronic small vessel ischemic disease. 2. 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 Upper GI Series 11/08/24 12:17 IMPRESSION: 1. Slow gastric emptying likely related to postoperative ileus. No extraluminal leakage of contrast. Abdomen X-Ray 11/14/24 11:13 IMPRESSION: Nonspecific, nonobstructive bowel gas pattern. Supportive devices unchanged in position. Bilateral pleural effusions. If clinical suspicion persists, CT examination of the abdomen and pelvis (with intravenous contrast) is suggested for further evaluation. Renal Ultrasound 11/19/24 16:17 IMPRESSION: No hydronephrosis or renal calculi. Findings suggesting medical renal disease. Free fluid within the pelvis. Venous Doppler Study 11/22/24 10:28 IMPRESSION: 1. No deep venous thrombosis in either lower limb. Renal Scan Nuclear Medicine 11/23/24 14:21 IMPRESSION: 1. Symmetric kidney function. 2. Delayed activity clearance from both kidneys with continually rising activity curves extending over the 30 minutes of observation and without associated hydronephrosis consistent with nonspecific, nonobstructive nephropathy. Modified Barium Swallow 11/26/24 10:39 IMPRESSION: 1. Trace laryngeal penetration. 2. Please refer to the speech therapy report for recommendations. Chest/Abdomen/Pelvis CT 12/02/24 14:47 IMPRESSION: Redemonstration of subcapsular fluid collections within both the liver and spleen (as detailed above) for which abscess formation is suspected. Both collections are amenable to percutaneous drainage. Bilateral large pleural effusions, with adjacent consolidation, decreased from prior. Catheter Placement CT 12/05/24 15:17 IMPRESSION: 1. Successful CT-guided subcapsular liver abscess drainage. 2. 2 mL opaque, moore fluid was sent for aerobic and anaerobic cultures. 3. Moderate-sized pleural effusions. 4. Moderate volume of ascites. Consider peritoneal drain placement. Chest X-Ray 12/08/24 12:28 IMPRESSION: 1. Stable airspace opacities at the lung bases, consistent with atelectasis versus pneumonia. 2. Stable small pleural effusions. 3. Emphysema. Abdomen/Pelvis CT 12/10/24 15:20 IMPRESSION: 1. Percutaneous abscess drains within a subcapsular fluid collections at the spleen and liver, both of which approximately half the volume of the prior study. 2. Persistent anasarca with extensive soft tissue edema and 3. Decrease in size of small bilateral pleural effusions. 4. Tree-in-bud opacities in the bilateral lower lobes consistent with pneumonia. Moderate amount of ascites throughout the abdomen and pelvis. Labs Labs: Laboratory Results - last 24 hr 12/21/24 12/22/24 12/22/24 20:20 07:38 11:35 POC Capillary Glucose 188 H 188 H 101 12/22/24 16:46 POC Capillary Glucose 91 Quality VTE Prophylaxis VTE prophylaxis: mechanical ordered and pharmacologic ordered Hospitalist [facility] Advance Care Plan I have confirmed that the patient's Advanced Care Plan is present, code status is documented, or surrogate decision maker is listed in patient medical record.: Yes Medication Reconciliation I have utilized all available resources to obtain, update and review the patients current medications (includes all prescriptions, OTC, herbals, cannabis, and nutritional supplements).: Yes
[2024-12-22] MEDS: MIRTAZAPINE 15 MG TABLET PO (21:16)
[2024-12-22 21:22] LABS: Glucose Point of Care 146 mg/dl (65-105)
[2024-12-22 22:00] VITALS: BP 140/77; PULSE 68; RESP 12; TEMP 37.3; O2SAT 97
[2024-12-23 06:00] VITALS: BP 122/70; PULSE 62; RESP 14; TEMP 37.1; O2SAT 97
[2024-12-23 08:07] LABS: Glucose Point of Care 116 mg/dl (65-105)
[2024-12-23 08:15] LABS: Hematocrit 29.2 % (42.0-52.0); Hemoglobin 9.1 g/dL (14.0-18.0); Mean Corpuscular HGB Conc 31.2 g/dl (32-36); Mean Corpuscular Volume 89.8 fl (80-100); Mean Platelet Volume 9.8 fl (7.4-10.4); Platelet Count Result 561 k/mm3 (150-375); Red Blood Count 3.25 M/mm3 (4.6-6.20); Red Cell Distribution Width 16.4 % (11.5-14.5); White Blood Count 8.9 K/mm3 (4.5-10.0)
[2024-12-23 08:55] LABS: Alanine Aminotransferase 23 U/L (6-50); Albumin Level 2.9 g/dL (3.5-5.1); Alkaline Phosphatase 176 U/L (38-126); Anion Gap 9 mmol/L (4-12); Aspartate Amino Transferase 45 U/L (17-59); Bilirubin,Total 0.4 mg/dL (0.2-1.3); Blood Urea Nitrogen 25 mg/dL (9-20); Calcium 8.6 mg/dL (8.4-10.2); Carbon Dioxide 25 mmol/L (22-30); Chloride 107 mmol/L (98-107); Estimated CRCL calculation 45 ml/min; Estimated Glomerular Filt Rate > 60; Glucose 114 mg/dL (65-110); Potassium 4.1 mmol/L (3.4-5.0); Sodium 141 mmol/L (137-145)
[2024-12-23 12:43] LABS: Glucose Point of Care 97 mg/dl (65-105)
[2024-12-23 14:00] VITALS: BP 152/83; PULSE 62; RESP 16; TEMP 37.3; O2SAT 99
--- NOTE | 2024-12-23 14:12 | P.PNIM_ITS ---
Progress Note: A&P Assessment and Plan (1) Metabolic acidosis: Code(s): E87.20 - Acidosis, unspecified Status: Acute Assessment and Plan: resolved (2) DEBI (acute kidney injury): Code(s): N17.9 - Acute kidney failure, unspecified Status: Acute Assessment and Plan: Creatinine seems to have stabilized at 1.54 Nephrology following (3) Perforated gastric ulcer: Qualifiers: Gastric ulcer chronicity: acute Qualified Code(s): K25.1 - Acute gastric ulcer with perforation Code(s): K25.5 - Chronic or unspecified gastric ulcer with perforation Status: Acute Assessment and Plan: Resolved Continue with Protonix and monitor hgb (4) COPD (chronic obstructive pulmonary disease): Code(s): J44.9 - Chronic obstructive pulmonary disease, unspecified Status: Acute Assessment and Plan: Stable on current medications. Will continue current treatment. (5) Sepsis: Code(s): A41.9 - Sepsis, unspecified organism Status: Acute Assessment and Plan: Completed antibiotics (6) Pneumonia: Code(s): J18.9 - Pneumonia, unspecified organism Status: Acute Assessment and Plan: Completed antibiotics pneumonia resolved Repeat CXR showed pulm edema and Pleural effusion now on lasix (7) Acute hypoxic respiratory failure: Code(s): J96.01 - Acute respiratory failure with hypoxia Status: Acute Assessment and Plan: resolved CXR showed pulm edema and pleural effusion continue Lasix 20mg bid and monitor renal function ECHO from june normal function monitor (8) Sepsis associated hypotension: Code(s): A41.9 - Sepsis, unspecified organism; I95.9 - Hypotension, unspecified Status: Acute Assessment and Plan: completed antibiotics (9) EtOH dependence: Code(s): F10.20 - Alcohol dependence, uncomplicated Status: Acute Assessment and Plan: Counselling given (10) Failure to thrive: Status: Acute Plan Consulted Hospice Perforated Gastric ulcer Patient underwent surgery on 11/05. Patient condition has been declining after the perforated gastric ulcer. s/p perc drain due to spleen and liver abscess. Failure to thrive Patient has multiple co-morbid condition including COPD,alcohol abuse, perforated ulcer, liver abscess,and recent surgical stress. encourage to eat, on Dronabinol Discussed with his brother who is POA. Diarrhea Resolved Stool culture and C diff negative Likely from pureed diet started on PRN Imodium leukocytosis resolved, WBC 9.9 Surgery re-evaluated the re-demonstration of subcapsular fluid collections within both the liver and spleen for which abscess formation is suspected.. Underwent perc drain on 12/05 Repeat blood culture pending. CXR done several days ago showed pulm edema and patient has responded to lasix and off oxygen Lactic acid normal Repeated blood culture Subcapsular Spleen and Liver on percutaneous drainage repeat CT showed improving, half the prior volume. Gen surgery following Anemia Hb 8.1, isat 28 and Ferritin 506 Iron replete B12/Folate wnl Liver and splenic abscess resolving repeat CT showed marked drainage Surgery removed drains day 04/03 Levaquin and Flagyl F/u with Gen surgery as instructed Code status DNR DVT prophylaxis on Sq [facility] Subjective Date/time seen: 12/23/24 14:12 Interval history: Patient denies any complaints. No acute events. [facility] Review of Systems Review of Systems: Pt with a dry throat not talking loudly ROS unobtainable: Yes unobtainable due to endotracheal tube, unobtainable due to medical condition and unobtainable due to mental status Exam Narrative: General: More alert toady Lungs/Chest: Trachea central Coarse BS B/L, No crackles or wheezing. Cardiac: RRR. Normal S1 S2. No murmurs Abdomen: Decreased but present bowel sounds. Extremities: No clubbing, cyanosis or edema. Warm : Shen in place Neurologic: Patient is able to move all 4 extremities spontaneously. Objective Data Vital Signs Vital Signs: Vital Signs - 24 hr 12/22/24 22:00 12/23/24 06:00 Temperature 99.1 F 98.7 F Pulse Rate 68 62 Respiratory Rate 12 14 Blood Pressure 140/77 122/70 Pulse Oximetry 97 97 Intake/Output Intake/Output: Intake & Output 12/20/24 12/21/24 12/22/24 12/23/24 23:59 23:59 23:59 23:59 Intake Total 958 920 420 420 Output Total 100 Balance 958 920 420 320 Meds/Results Medications: Active Medications Generic Name Dose Route Start Last Admin Trade Name Freq PRN Reason Stop Dose Admin Acetaminophen 325 mg 12/19/24 15:45 12/21/24 06:19 Acetaminophen 325 Mg Tablet PO 325 mg Q4H PRN Administration Mild Pain (1-3) or Fever Albuterol 2.5 mg 12/08/24 16:23 Albuterol Sulfate Neb 2.5 Mg/3 Ml Inh INHALATION Q12HR PRN Shortness Of Breath Amlodipine Besylate 10 mg 12/02/24 09:00 12/14/24 10:08 Amlodipine Besylate 10 Mg Tablet PO 10 mg DAILY SOURAV Administration Dextrose 12.5 gm 11/06/24 07:40 11/21/24 16:58 Dextrose 50% 25 Gm/50 Ml Syringe IV PUSH 12.5 gm PRN PRN Administration Hypoglycemia Protocol Dronabinol 10 mg 12/15/24 17:00 12/22/24 16:39 Dronabinol (*Crx) 2.5 Mg Capsule PO 10 mg BID SOURAV Administration Enoxaparin Sodium 40 mg 12/19/24 09:00 12/22/24 08:34 Enoxaparin 40 Mg/0.4 Ml Syringe SUB-Q 40 mg DAILY SOURAV Administration Folic Acid 1 mg 12/20/24 09:00 12/22/24 12:04 Folic Acid 1 Mg Tablet PO 1 mg DAILY SOURAV Administration Glucagon 1 mg 11/06/24 07:40 Glucagon For Inj 1 Mg Vial IM PRN PRN Hypoglycemia Protocol Glucose 15 gm 11/06/24 07:40 Glucose Oral Gel 15 Gm Of Glucse In 37.5 Gm Tube PO PRN PRN Hypoglycemia Protocol Hydrochlorothiazide 25 mg 12/03/24 09:00 12/14/24 10:08 Hydrochlorothiazide 25 Mg Tablet PO 25 mg QAM SOURAV Administration Dextrose 1,000 mls @ 100 mls/hr 11/06/24 07:40 Dextrose 5% 1,000 Ml IVPB PRN PRN Hypoglycemia Protocol Loperamide HCl 2 mg 12/01/24 10:59 12/01/24 15:17 Loperamide Hcl 2 Mg Capsule PO 2 mg PRN PRN Administration Diarrhea Mirtazapine 15 mg 11/30/24 21:00 12/22/24 21:16 Mirtazapine 15 Mg Tablet PO 15 mg HS SOURAV Administration Naloxone HCl 0.1 mg 12/08/24 16:21 Naloxone Hcl 0.4 Mg/Ml Vial IV PUSH Q2M PRN Opiate Reversal Ondansetron HCl 4 mg 12/08/24 16:21 12/14/24 13:07 Ondansetron Inj 4 Mg/2 Ml Vial IV PUSH 4 mg Q4H PRN Administration Nausea And Vomiting Pantoprazole Sodium 40 mg 12/08/24 21:00 12/22/24 21:15 Pantoprazole Sodium Iv 40 Mg Vial IV PUSH 40 mg Q12HR SOURAV Administration Potassium Chloride 20 meq 12/06/24 09:00 12/22/24 08:34 Potassium Chloride 20 Meq Packet (For Liquid) PO 20 meq DAILY SOURAV Administration Psyllium Hydrophilic Mucilloid 1 packet 11/29/24 09:00 12/22/24 08:34 Psyllium Powder Packet PO 1 packet QAM SOURAV Administration Thiamine HCl 100 mg 12/08/24 09:00 12/22/24 08:34 Thiamine Hcl 200 Mg/2 Ml Vial IV PUSH 100 mg QAM SOURAV Administration Radiology Results: ITS Impressions Head CT 11/05/24 20:50 IMPRESSION: 1. Moderate nonspecific cerebral white matter disease, which likely represents chronic small vessel ischemic disease. 2. 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 Upper GI Series 11/08/24 12:17 IMPRESSION: 1. Slow gastric emptying likely related to postoperative ileus. No extraluminal leakage of contrast. Abdomen X-Ray 11/14/24 11:13 IMPRESSION: Nonspecific, nonobstructive bowel gas pattern. Supportive devices unchanged in position. Bilateral pleural effusions. If clinical suspicion persists, CT examination of the abdomen and pelvis (with intravenous contrast) is suggested for further evaluation. Renal Ultrasound 11/19/24 16:17 IMPRESSION: No hydronephrosis or renal calculi. Findings suggesting medical renal disease. Free fluid within the pelvis. Venous Doppler Study 11/22/24 10:28 IMPRESSION: 1. No deep venous thrombosis in either lower limb. Renal Scan Nuclear Medicine 11/23/24 14:21 IMPRESSION: 1. Symmetric kidney function. 2. Delayed activity clearance from both kidneys with continually rising activity curves extending over the 30 minutes of observation and without associated hydronephrosis consistent with nonspecific, nonobstructive nephropathy. Modified Barium Swallow 11/26/24 10:39 IMPRESSION: 1. Trace laryngeal penetration. 2. Please refer to the speech therapy report for recommendations. Chest/Abdomen/Pelvis CT 12/02/24 14:47 IMPRESSION: Redemonstration of subcapsular fluid collections within both the liver and spleen (as detailed above) for which abscess formation is suspected. Both collections are amenable to percutaneous drainage. Bilateral large pleural effusions, with adjacent consolidation, decreased from prior. Catheter Placement CT 12/05/24 15:17 IMPRESSION: 1. Successful CT-guided subcapsular liver abscess drainage. 2. 2 mL opaque, moore fluid was sent for aerobic and anaerobic cultures. 3. Moderate-sized pleural effusions. 4. Moderate volume of ascites. Consider peritoneal drain placement. Chest X-Ray 12/08/24 12:28 IMPRESSION: 1. Stable airspace opacities at the lung bases, consistent with atelectasis versus pneumonia. 2. Stable small pleural effusions. 3. Emphysema. Abdomen/Pelvis CT 12/10/24 15:20 IMPRESSION: 1. Percutaneous abscess drains within a subcapsular fluid collections at the spleen and liver, both of which approximately half the volume of the prior study. 2. Persistent anasarca with extensive soft tissue edema and 3. Decrease in size of small bilateral pleural effusions. 4. Tree-in-bud opacities in the bilateral lower lobes consistent with pneumonia. Moderate amount of ascites throughout the abdomen and pelvis. Labs Labs: Laboratory Results - last 24 hr 12/22/24 12/22/24 12/23/24 16:46 20:44 07:32 WBC 8.9 RBC 3.25 L Hgb 9.1 L Hct 29.2 L MCV 89.8 MCH 28.0 MCHC 31.2 L RDW 16.4 H Plt Count 561 H MPV 9.8 Sodium 141 Potassium 4.1 Chloride 107 Carbon Dioxide 25 Anion Gap 9 BUN 25 H Creatinine 0.82 Estim Creat Clear Calc 45 Estimated GFR > 60 Glucose 114 H POC Capillary Glucose 91 146 H Calcium 8.6 Total Bilirubin 0.4 AST 45 ALT 23 Alkaline Phosphatase 176 H Total Protein 6.0 L Albumin 2.9 L 12/23/24 12/23/24 07:59 12:25 WBC RBC Hgb Hct MCV MCH MCHC RDW Plt Count MPV Sodium Potassium Chloride Carbon Dioxide Anion Gap BUN Creatinine Estim Creat Clear Calc Estimated GFR Glucose POC Capillary Glucose 116 H 97 Calcium Total Bilirubin AST ALT Alkaline Phosphatase Total Protein Albumin Quality VTE Prophylaxis VTE prophylaxis: mechanical ordered and pharmacologic ordered Hospitalist MIPS Advance Care Plan I have confirmed that the patient's Advanced Care Plan is present, code status is documented, or surrogate decision maker is listed in patient medical record.: Yes Medication Reconciliation I have utilized all available resources to obtain, update and review the patients current medications (includes all prescriptions, OTC, herbals, latoya abis, and nutritional supplements).: Yes
[2024-12-23 17:14] LABS: Glucose Point of Care 111 mg/dl (65-105)
[2024-12-23] MEDS: MIRTAZAPINE 15 MG TABLET PO (21:12)
[2024-12-23] MEDS: PANTOPRAZOLE SODIUM IV 40 MG VIAL IV PUSH (21:12)
[2024-12-23 21:16] VITALS: BP 157/86; PULSE 64; RESP 17; TEMP 36.9; O2SAT 97
[2024-12-23 21:41] LABS: Glucose Point of Care 92 mg/dl (65-105)
[2024-12-24 05:23] VITALS: BP 155/82; PULSE 63; RESP 17; TEMP 36.7; O2SAT 99
[2024-12-24 07:16] VITALS: PULSE 63; RESP 17; O2SAT 99
[2024-12-24 07:20] LABS: Hematocrit 31.4 % (42.0-52.0); Hemoglobin 9.8 g/dL (14.0-18.0); Mean Corpuscular HGB Conc 31.2 g/dl (32-36); Mean Corpuscular Hemoglobin 28.1 pg (26-34); Mean Platelet Volume 9.5 fl (7.4-10.4); Platelet Count Result 539 k/mm3 (150-375); Red Blood Count 3.49 M/mm3 (4.6-6.20); Red Cell Distribution Width 16.6 % (11.5-14.5)
[2024-12-24 07:33] LABS: Alanine Aminotransferase 26 U/L (6-50); Albumin Level 2.9 g/dL (3.5-5.1); Alkaline Phosphatase 185 U/L (38-126); Anion Gap 7 mmol/L (4-12); Aspartate Amino Transferase 47 U/L (17-59); Bilirubin,Total 0.4 mg/dL (0.2-1.3); Blood Urea Nitrogen 23 mg/dL (9-20); Calcium 8.6 mg/dL (8.4-10.2); Carbon Dioxide 27 mmol/L (22-30); Chloride 106 mmol/L (98-107); Estimated CRCL calculation 46 ml/min; Estimated Glomerular Filt Rate > 60; Glucose 82 mg/dL (65-110); Potassium 4.1 mmol/L (3.4-5.0); Sodium 140 mmol/L (137-145)
[2024-12-24 08:23] LABS: Glucose Point of Care 88 mg/dl (65-105)
[2024-12-24] MEDS: ONDANSETRON INJ 4 MG/2 ML VIAL IV PUSH (11:06)
[2024-12-24 12:02] LABS: Glucose Point of Care 110 mg/dl (65-105)
--- NOTE | 2024-12-24 12:48 | PCPTNOTE ---
On 12/24/24, the student, REHAN Mckeon, provided care and completed [facility] documentation on this patient. I have reviewed the student's documentation and agree with the findings.
--- NOTE | 2024-12-24 13:34 | PCOTNOTE ---
Attempted to see Patient this afternoon. Patient in bed, states he has done a lot today, hasn't been in bed long , but is done for the day. Patient stated he did therapy and went on a ride in the wheelchair to get out of the room with his brother. Patient stated he has some nausea and needs to rest. Patient refused any additional activity this date.
[2024-12-24 14:00] VITALS: BP 136/85; PULSE 78; RESP 18; TEMP 36.6; O2SAT 100
[2024-12-24 16:45] LABS: Glucose Point of Care 111 mg/dl (65-105)
--- NOTE | 2024-12-24 17:54 | P.PNIM_ITS ---
Progress Note: A&P Assessment and Plan (1) Metabolic acidosis: Code(s): E87.20 - Acidosis, unspecified Status: Acute Assessment and Plan: resolved (2) DEBI (acute kidney injury): Code(s): N17.9 - Acute kidney failure, unspecified Status: Acute Assessment and Plan: Creatinine seems to have stabilized at 1.54 Nephrology following (3) Perforated gastric ulcer: Qualifiers: Gastric ulcer chronicity: acute Qualified Code(s): K25.1 - Acute gastric ulcer with perforation Code(s): K25.5 - Chronic or unspecified gastric ulcer with perforation Status: Acute Assessment and Plan: Resolved Continue with Protonix and monitor hgb (4) COPD (chronic obstructive pulmonary disease): Code(s): J44.9 - Chronic obstructive pulmonary disease, unspecified Status: Acute Assessment and Plan: Stable on current medications. Will continue current treatment. (5) Sepsis: Code(s): A41.9 - Sepsis, unspecified organism Status: Acute Assessment and Plan: Completed antibiotics (6) Pneumonia: Code(s): J18.9 - Pneumonia, unspecified organism Status: Acute Assessment and Plan: Completed antibiotics pneumonia resolved Repeat CXR showed pulm edema and Pleural effusion now on lasix (7) Acute hypoxic respiratory failure: Code(s): J96.01 - Acute respiratory failure with hypoxia Status: Acute Assessment and Plan: resolved CXR showed pulm edema and pleural effusion continue Lasix 20mg bid and monitor renal function ECHO from june normal function monitor (8) Sepsis associated hypotension: Code(s): A41.9 - Sepsis, unspecified organism; I95.9 - Hypotension, unspecified Status: Acute Assessment and Plan: completed antibiotics (9) EtOH dependence: Code(s): F10.20 - Alcohol dependence, uncomplicated Status: Acute Assessment and Plan: Counselling given (10) Failure to thrive: Status: Acute Plan Consulted Hospice Perforated Gastric ulcer Patient underwent surgery on 11/05. Patient condition has been declining after the perforated gastric ulcer. s/p perc drain due to spleen and liver abscess. Failure to thrive Patient has multiple co-morbid condition including COPD,alcohol abuse, perforated ulcer, liver abscess,and recent surgical stress. encourage to eat, on Dronabinol Discussed with his brother who is POA. Diarrhea Resolved Stool culture and C diff negative Likely from pureed diet started on PRN Imodium leukocytosis resolved, WBC 9.9 Surgery re-evaluated the re-demonstration of subcapsular fluid collections within both the liver and spleen for which abscess formation is suspected.. Underwent perc drain on 12/05 Repeat blood culture pending. CXR done several days ago showed pulm edema and patient has responded to lasix and off oxygen Lactic acid normal Repeated blood culture Subcapsular Spleen and Liver on percutaneous drainage repeat CT showed improving, half the prior volume. Gen surgery following Anemia Hb 8.1, isat 28 and Ferritin 506 Iron replete B12/Folate wnl Liver and splenic abscess resolving repeat CT showed marked drainage Surgery removed drains day 04/03 Levaquin and Flagyl F/u with Gen surgery as instructed Code status DNR DVT prophylaxis on Sq Lovenox PT[facility] evaluating Subjective Date/time seen: 12/24/24 17:54 Interval history: [facility] Review of Systems Review of Systems: Pt with a dry throat not talking loudly ROS unobtainable: Yes unobtainable due to endotracheal tube, unobtainable due to medical condition and unobtainable due to mental status Exam Narrative: General: More alert toady Lungs/Chest: Trachea central Coarse BS B/L, No crackles or wheezing. Cardiac: RRR. Normal S1 S2. No murmurs Abdomen: Decreased but present bowel sounds. Extremities: No clubbing, cyanosis or edema. Warm : Shen in place Neurologic: Patient is able to move all 4 extremities spontaneously. Objective Data Vital Signs Vital Signs: Vital Signs - 24 hr 12/23/24 21:00 12/23/24 21:16 12/24/24 05:23 Temperature 98.4 F 98.0 F Pulse Rate 64 63 Respiratory Rate 17 17 Blood Pressure 157/86 H 155/82 H Pulse Oximetry 97 99 Oxygen Delivery Room Air Fraction of Inspired Oxygen 12/24/24 07:16 12/24/24 14:00 Temperature 97.9 F Pulse Rate 63 78 Respiratory Rate 17 18 Blood Pressure 136/85 Pulse Oximetry 99 100 Oxygen Delivery Room Air Fraction of Inspired Oxygen 24 Intake/Output Intake/Output: Intake & Output 12/21/24 12/22/24 12/23/24 12/24/24 23:59 23:59 23:59 23:59 Intake Total 920 420 720 480 Output Total 701 500 Balance 920 420 19 -20 Meds/Results Medications: Active Medications Generic Name Dose Route Start Last Admin Trade Name Freq PRN Reason Stop Dose Admin Acetaminophen 325 mg 12/19/24 15:45 12/21/24 06:19 Acetaminophen 325 Mg Tablet PO 325 mg Q4H PRN Administration Mild Pain (1-3) or Fever Albuterol 2.5 mg 12/08/24 16:23 Albuterol Sulfate Neb 2.5 Mg/3 Ml Inh INHALATION Q12HR PRN Shortness Of Breath Amlodipine Besylate 10 mg 12/02/24 09:00 12/14/24 10:08 Amlodipine Besylate 10 Mg Tablet PO 10 mg DAILY SOURAV Administration Dextrose 12.5 gm 11/06/24 07:40 11/21/24 16:58 Dextrose 50% 25 Gm/50 Ml Syringe IV PUSH 12.5 gm PRN PRN Administration Hypoglycemia Protocol Dronabinol 10 mg 12/15/24 17:00 12/24/24 08:59 Dronabinol (*Crx) 2.5 Mg Capsule PO Not Given BID SOURAV Enoxaparin Sodium 40 mg 12/19/24 09:00 12/24/24 09:00 Enoxaparin 40 Mg/0.4 Ml Syringe SUB-Q Not Given DAILY SOURAV Folic Acid 1 mg 12/20/24 09:00 12/24/24 08:59 Folic Acid 1 Mg Tablet PO Not Given DAILY [facility] Glucagon 1 mg 11/06/24 07:40 Glucagon For Inj 1 Mg Vial IM PRN PRN Hypoglycemia Protocol Glucose 15 gm 11/06/24 07:40 Glucose Oral Gel 15 Gm Of Glucse In 37.5 Gm Tube PO PRN PRN Hypoglycemia Protocol Hydrochlorothiazide 25 mg 12/03/24 09:00 12/14/24 10:08 Hydrochlorothiazide 25 Mg Tablet PO 25 mg QAM SOURAV Administration Dextrose 1,000 mls @ 100 mls/hr 11/06/24 07:40 Dextrose 5% 1,000 Ml IVPB PRN PRN Hypoglycemia Protocol Loperamide HCl 2 mg 12/01/24 10:59 12/01/24 15:17 Loperamide Hcl 2 Mg Capsule PO 2 mg PRN PRN Administration Diarrhea Mirtazapine 15 mg 11/30/24 21:00 12/23/24 21:12 Mirtazapine 15 Mg Tablet PO 15 mg HS SOURAV Administration Naloxone HCl 0.1 mg 12/08/24 16:21 Naloxone Hcl 0.4 Mg/Ml Vial IV PUSH Q2M PRN Opiate Reversal Ondansetron HCl 4 mg 12/08/24 16:21 12/24/24 11:06 Ondansetron Inj 4 Mg/2 Ml Vial IV PUSH 4 mg Q4H PRN Administration Nausea And Vomiting Pantoprazole Sodium 40 mg 12/08/24 21:00 12/24/24 08:59 Pantoprazole Sodium Iv 40 Mg Vial IV PUSH Not Given Q12HR [facility] Potassium Chloride 20 meq 12/06/24 09:00 12/24/24 08:59 Potassium Chloride 20 Meq Packet (For Liquid) PO Not Given DAILY [facility] Psyllium Hydrophilic Mucilloid 1 packet 11/29/24 09:00 12/24/24 08:59 Psyllium Powder Packet PO Not Given QAM [facility] Thiamine HCl 100 mg 12/08/24 09:00 12/24/24 08:59 Thiamine Hcl 200 Mg/2 Ml Vial IV PUSH Not Given QAM [facility] Radiology Results: ITS Impressions Head CT 11/05/24 20:50 IMPRESSION: 1. Moderate nonspecific cerebral white matter disease, which likely represents chronic small vessel ischemic disease. 2. 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 Upper GI Series 11/08/24 12:17 IMPRESSION: 1. Slow gastric emptying likely related to postoperative ileus. No extraluminal leakage of contrast. Abdomen X-Ray 11/14/24 11:13 IMPRESSION: Nonspecific, nonobstructive bowel gas pattern. Supportive devices unchanged in position. Bilateral pleural effusions. If clinical suspicion persists, CT examination of the abdomen and pelvis (with intravenous contrast) is suggested for further evaluation. Renal Ultrasound 11/19/24 16:17 IMPRESSION: No hydronephrosis or renal calculi. Findings suggesting medical renal disease. Free fluid within the pelvis. Venous Doppler Study 11/22/24 10:28 IMPRESSION: 1. No deep venous thrombosis in either lower limb. Renal Scan Nuclear Medicine 11/23/24 14:21 IMPRESSION: 1. Symmetric kidney function. 2. Delayed activity clearance from both kidneys with continually rising activity curves extending over the 30 minutes of observation and without associated hydronephrosis consistent with nonspecific, nonobstructive nephropathy. Modified Barium Swallow 11/26/24 10:39 IMPRESSION: 1. Trace laryngeal penetration. 2. Please refer to the speech therapy report for recommendations. Chest/Abdomen/Pelvis CT 12/02/24 14:47 IMPRESSION: Redemonstration of subcapsular fluid collections within both the liver and spleen (as detailed above) for which abscess formation is suspected. Both collections are amenable to percutaneous drainage. Bilateral large pleural effusions, with adjacent consolidation, decreased from prior. Catheter Placement CT 12/05/24 15:17 IMPRESSION: 1. Successful CT-guided subcapsular liver abscess drainage. 2. 2 mL opaque, moore fluid was sent for aerobic and anaerobic cultures. 3. Moderate-sized pleural effusions. 4. Moderate volume of ascites. Consider peritoneal drain placement. Chest X-Ray 12/08/24 12:28 IMPRESSION: 1. Stable airspace opacities at the lung bases, consistent with atelectasis versus pneumonia. 2. Stable small pleural effusions. 3. Emphysema. Abdomen/Pelvis CT 12/10/24 15:20 IMPRESSION: 1. Percutaneous abscess drains within a subcapsular fluid collections at the spleen and liver, both of which approximately half the volume of the prior study. 2. Persistent anasarca with extensive soft tissue edema and 3. Decrease in size of small bilateral pleural effusions. 4. Tree-in-bud opacities in the bilateral lower lobes consistent with pneumonia. Moderate amount of ascites throughout the abdomen and pelvis. Labs Labs: Laboratory Results - last 24 hr 12/23/24 12/24/24 12/24/24 21:09 06:59 07:51 WBC 8.0 RBC 3.49 L Hgb 9.8 L Hct 31.4 L MCV 90.0 MCH 28.1 MCHC 31.2 L RDW 16.6 H Plt Count 539 H MPV 9.5 Sodium 140 Potassium 4.1 Chloride 106 Carbon Dioxide 27 Anion Gap 7 BUN 23 H Creatinine 0.80 Estim Creat Clear Calc 46 Estimated GFR > 60 Glucose 82 POC Capillary Glucose 92 88 Calcium 8.6 Total Bilirubin 0.4 AST 47 ALT 26 Alkaline Phosphatase 185 H Total Protein 7.0 Albumin 2.9 L 12/24/24 12/24/24 11:41 16:35 WBC RBC Hgb Hct MCV MCH MCHC RDW Plt Count MPV Sodium Potassium Chloride Carbon Dioxide Anion Gap BUN Creatinine Estim Creat Clear Calc Estimated GFR Glucose POC Capillary Glucose 110 H 111 H Calcium Total Bilirubin AST ALT Alkaline Phosphatase Total Protein Albumin Quality VTE Prophylaxis VTE prophylaxis: mechanical ordered and pharmacologic ordered Hospitalist MIPS Advance Care Plan I have confirmed that the patient's Advanced Care Plan is present, code status is documented, or surrogate decision maker is listed in patient medical record.: Yes Medication Reconciliation I have utilized all available resources to obtain, update and review the patients current medications (includes all prescriptions, OTC, herbals, cannabis, and nutritional supplements).: Yes
[2024-12-24] MEDS: PANTOPRAZOLE SODIUM IV 40 MG VIAL IV PUSH (21:00)
[2024-12-24] MEDS: MIRTAZAPINE 15 MG TABLET PO (21:00)
[2024-12-24 21:20] VITALS: BP 134/87; PULSE 78; RESP 20; TEMP 36.6; O2SAT 97
[2024-12-24 22:14] LABS: Glucose Point of Care 126 mg/dl (65-105)
[2024-12-25 05:30] VITALS: BP 130/78; PULSE 60; RESP 20; TEMP 37.7; O2SAT 98
[2024-12-25 06:16] LABS: Hematocrit 28.8 % (42.0-52.0); Hemoglobin 9.2 g/dL (14.0-18.0); Mean Corpuscular HGB Conc 31.9 g/dl (32-36); Mean Corpuscular Hemoglobin 28.4 pg (26-34); Mean Corpuscular Volume 88.9 fl (80-100); Mean Platelet Volume 9.4 fl (7.4-10.4); Platelet Count Result 495 k/mm3 (150-375); Red Blood Count 3.24 M/mm3 (4.6-6.20); Red Cell Distribution Width 16.8 % (11.5-14.5); White Blood Count 6.5 K/mm3 (4.5-10.0)
[2024-12-25 06:26] LABS: Alanine Aminotransferase 24 U/L (6-50); Albumin Level 2.7 g/dL (3.5-5.1); Alkaline Phosphatase 173 U/L (38-126); Anion Gap 9 mmol/L (4-12); Aspartate Amino Transferase 36 U/L (17-59); Bilirubin,Total 0.4 mg/dL (0.2-1.3); Blood Urea Nitrogen 25 mg/dL (9-20); Carbon Dioxide 24 mmol/L (22-30); Chloride 105 mmol/L (98-107); Estimated CRCL calculation 44 ml/min; Estimated Glomerular Filt Rate > 60; Glucose 84 mg/dL (65-110); Potassium 3.9 mmol/L (3.4-5.0); Sodium 138 mmol/L (137-145)
[2024-12-25 07:33] LABS: Glucose Point of Care 83 mg/dl (65-105)
[2024-12-25] MEDS: POTASSIUM CHLORIDE 20 MEQ PACKET (FOR LIQUID) PO (09:10)
[2024-12-25] MEDS: THIAMINE HCL 200 MG/2 ML VIAL 100 MG IV PUSH (09:11)
[2024-12-25] MEDS: droNABinol (*CRX) 2.5 MG CAPSULE 10 MG PO (09:11)
[2024-12-25] MEDS: ENOXAPARIN 40 MG/0.4 ML SYRINGE SUB-Q (09:11)
[2024-12-25] MEDS: PSYLLIUM POWDER PACKET 1 PACKET PO (09:14)
[2024-12-25] MEDS: PANTOPRAZOLE SODIUM IV 40 MG VIAL IV PUSH ×2 (09:14→21:01)
[2024-12-25] MEDS: FOLIC ACID 1 MG TABLET PO (09:15)
[2024-12-25 11:33] LABS: Glucose Point of Care 149 mg/dl (65-105)
[2024-12-25 14:00] VITALS: BP 130/77; PULSE 66; RESP 18; TEMP 36.2; O2SAT 93
--- NOTE | 2024-12-25 16:22 | PM.IMPN ---
Progress Note: A&P Assessment and Plan (1) Metabolic acidosis: Code(s): E87.20 - Acidosis, unspecified Status: Acute Assessment and Plan: resolved (2) DEBI (acute kidney injury): Code(s): N17.9 - Acute kidney failure, unspecified Status: Acute Assessment and Plan: Creatinine seems to have stabilized at 1.54 Nephrology following (3) Perforated gastric ulcer: Qualifiers: Gastric ulcer chronicity: acute Qualified Code(s): K25.1 - Acute gastric ulcer with perforation Code(s): K25.5 - Chronic or unspecified gastric ulcer with perforation Status: Acute Assessment and Plan: Resolved Continue with Protonix and monitor hgb (4) COPD (chronic obstructive pulmonary disease): Code(s): J44.9 - Chronic obstructive pulmonary disease, unspecified Status: Acute Assessment and Plan: Stable on current medications. Will continue current treatment. (5) Sepsis: Code(s): A41.9 - Sepsis, unspecified organism Status: Acute Assessment and Plan: Completed antibiotics (6) Pneumonia: Code(s): J18.9 - Pneumonia, unspecified organism Status: Acute Assessment and Plan: Completed antibiotics pneumonia resolved Repeat CXR showed pulm edema and Pleural effusion now on lasix (7) Acute hypoxic respiratory failure: Code(s): J96.01 - Acute respiratory failure with hypoxia Status: Acute Assessment and Plan: resolved CXR showed pulm edema and pleural effusion continue Lasix 20mg bid and monitor renal function ECHO from june normal function monitor (8) Sepsis associated hypotension: Code(s): A41.9 - Sepsis, unspecified organism; I95.9 - Hypotension, unspecified Status: Acute Assessment and Plan: completed antibiotics (9) EtOH dependence: Code(s): F10.20 - Alcohol dependence, uncomplicated Status: Acute Assessment and Plan: Counselling given (10) Failure to thrive: Status: Acute Plan Consulted Hospice Perforated Gastric ulcer Patient underwent surgery on 11/05. Patient condition has been declining after the perforated gastric ulcer. s/p perc drain due to spleen and liver abscess. Failure to thrive Patient has multiple co-morbid condition including COPD,alcohol abuse, perforated ulcer, liver abscess,and recent surgical stress. patient now having adequate oral intake s/p Dronabinol Discussed with his brother who is POA. Diarrhea Resolved Stool culture and C diff negative Likely from pureed diet started on PRN Imodium leukocytosis resolved, WBC 6.5 Surgery re-evaluated the re-demonstration of subcapsular fluid collections within both the liver and spleen for which abscess formation is suspected.. Underwent perc drain on 12/05 Repeat blood culture pending. CXR done several days ago showed pulm edema and patient has responded to lasix and off oxygen Lactic acid normal Repeated blood culture Subcapsular Spleen and Liver on percutaneous drainage repeat CT showed improving, half the prior volume. s/p Levaquin and Flagyl Gen surgery following Anemia Hb 9.2 s/p 1 unit pRBC B12/Folate wnl repeat Iron panel Liver and splenic abscess resolving repeat CT showed marked drainage Surgery removed drains completed Levaquin and Flagyl F/u with Gen surgery as instructed Code status DNR DVT prophylaxis on Sq Lovenox PT[facility]OT [facility] Subjective Date/time seen: 12/25/24 16:22 Interval history: patient comfortable a bedside , looks more energetic today than when I saw him last week. Vital signs today 99, pulse rate 60, respiratory 20, blood pressure 130/78, saturating 98% on room air. Labs WBC 6.5, hemoglobin 9.2, creatinine 0.85, sodium 138. Review of Systems Review of Systems: Pt with a dry throat not talking loudly ROS unobtainable: Yes unobtainable due to endotracheal tube, unobtainable due to medical condition and unobtainable due to mental status Exam Narrative: General: alert and more energetic today Lungs/Chest: Trachea central Coarse BS B/L, No crackles or wheezing. Cardiac: RRR. Normal S1 S2. No murmurs Abdomen: Decreased but present bowel sounds. Extremities: No clubbing, cyanosis or edema. Warm : Shen in place Neurologic: Patient is able to move all 4 extremities spontaneously. Objective Data Vital Signs Vital Signs: Vital Signs - 24 hr 12/24/24 21:20 12/25/24 05:30 12/25/24 08:00 Temperature 98 F 99.8 F H Pulse Rate 78 60 Respiratory Rate 20 20 Blood Pressure 134/87 130/78 Pulse Oximetry 97 98 Oxygen Delivery Room Air Intake/Output Intake/Output: Intake & Output 12/22/24 12/23/24 12/24/24 12/25/24 23:59 23:59 23:59 23:59 Intake Total 420 720 720 100 Output Total 701 500 200 Balance 420 19 220 -100 Meds/Results Medications: Active Medications Generic Name Dose Route Start Last Admin Trade Name Freq PRN Reason Stop Dose Admin Acetaminophen 325 mg 12/19/24 15:45 12/21/24 06:19 Acetaminophen 325 Mg Tablet PO 325 mg Q4H PRN Administration Mild Pain (1-3) or Fever Albuterol 2.5 mg 12/08/24 16:23 Albuterol Sulfate Neb 2.5 Mg/3 Ml Inh INHALATION Q12HR PRN Shortness Of Breath Amlodipine Besylate 10 mg 12/02/24 09:00 12/14/24 10:08 Amlodipine Besylate 10 Mg Tablet PO 10 mg DAILY SOURAV Administration Dextrose 12.5 gm 11/06/24 07:40 11/21/24 16:58 Dextrose 50% 25 Gm/50 Ml Syringe IV PUSH 12.5 gm PRN PRN Administration Hypoglycemia Protocol Dronabinol 10 mg 12/15/24 17:00 12/25/24 09:11 Dronabinol (*Crx) 2.5 Mg Capsule PO 10 mg BID SOURAV Administration Enoxaparin Sodium 40 mg 12/19/24 09:00 12/25/24 09:11 Enoxaparin 40 Mg/0.4 Ml Syringe SUB-Q 40 mg DAILY SOURAV Administration Folic Acid 1 mg 12/20/24 09:00 12/25/24 09:15 Folic Acid 1 Mg Tablet PO 1 mg DAILY SOURAV Administration Glucagon 1 mg 11/06/24 07:40 Glucagon For Inj 1 Mg Vial IM PRN PRN Hypoglycemia Protocol Glucose 15 gm 11/06/24 07:40 Glucose Oral Gel 15 Gm Of Glucse In 37.5 Gm Tube PO PRN PRN Hypoglycemia Protocol Hydrochlorothiazide 25 mg 12/03/24 09:00 12/14/24 10:08 Hydrochlorothiazide 25 Mg Tablet PO 25 mg QAM SOURAV Administration Dextrose 1,000 mls @ 100 mls/hr 11/06/24 07:40 Dextrose 5% 1,000 Ml IVPB PRN PRN Hypoglycemia Protocol Loperamide HCl 2 mg 12/01/24 10:59 12/01/24 15:17 Loperamide Hcl 2 Mg Capsule PO 2 mg PRN PRN Administration Diarrhea Mirtazapine 15 mg 11/30/24 21:00 12/24/24 21:00 Mirtazapine 15 Mg Tablet PO 15 mg HS SOURAV Administration Naloxone HCl 0.1 mg 12/08/24 16:21 Naloxone Hcl 0.4 Mg/Ml Vial IV PUSH Q2M PRN Opiate Reversal Ondansetron HCl 4 mg 12/08/24 16:21 12/24/24 11:06 Ondansetron Inj 4 Mg/2 Ml Vial IV PUSH 4 mg Q4H PRN Administration Nausea And Vomiting Pantoprazole Sodium 40 mg 12/08/24 21:00 12/25/24 09:14 Pantoprazole Sodium Iv 40 Mg Vial IV PUSH 40 mg Q12HR SOURAV Administration Potassium Chloride 20 meq 12/06/24 09:00 12/25/24 09:10 Potassium Chloride 20 Meq Packet (For Liquid) PO 20 meq DAILY SOURAV Administration Psyllium Hydrophilic Mucilloid 1 packet 11/29/24 09:00 12/25/24 09:14 Psyllium Powder Packet PO 1 packet QAM SOURAV Administration Thiamine HCl 100 mg 12/08/24 09:00 12/25/24 09:11 Thiamine Hcl 200 Mg/2 Ml Vial IV PUSH 100 mg QAM SOURAV Administration Radiology Results: ITS Impressions Head CT 11/05/24 20:50 IMPRESSION: 1. Moderate nonspecific cerebral white matter disease, which likely represents chronic small vessel ischemic disease. 2. 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 Upper GI Series 11/08/24 12:17 IMPRESSION: 1. Slow gastric emptying likely related to postoperative ileus. No extraluminal leakage of contrast. Abdomen X-Ray 11/14/24 11:13 IMPRESSION: Nonspecific, nonobstructive bowel gas pattern. Supportive devices unchanged in position. Bilateral pleural effusions. If clinical suspicion persists, CT examination of the abdomen and pelvis (with intravenous contrast) is suggested for further evaluation. Renal Ultrasound 11/19/24 16:17 IMPRESSION: No hydronephrosis or renal calculi. Findings suggesting medical renal disease. Free fluid within the pelvis. Venous Doppler Study 11/22/24 10:28 IMPRESSION: 1. No deep venous thrombosis in either lower limb. Renal Scan Nuclear Medicine 11/23/24 14:21 IMPRESSION: 1. Symmetric kidney function. 2. Delayed activity clearance from both kidneys with continually rising activity curves extending over the 30 minutes of observation and without associated hydronephrosis consistent with nonspecific, nonobstructive nephropathy. Modified Barium Swallow 11/26/24 10:39 IMPRESSION: 1. Trace laryngeal penetration. 2. Please refer to the speech therapy report for recommendations. Chest/Abdomen/Pelvis CT 12/02/24 14:47 IMPRESSION: Redemonstration of subcapsular fluid collections within both the liver and spleen (as detailed above) for which abscess formation is suspected. Both collections are amenable to percutaneous drainage. Bilateral large pleural effusions, with adjacent consolidation, decreased from prior. Catheter Placement CT 12/05/24 15:17 IMPRESSION: 1. Successful CT-guided subcapsular liver abscess drainage. 2. 2 mL opaque, moore fluid was sent for aerobic and anaerobic cultures. 3. Moderate-sized pleural effusions. 4. Moderate volume of ascites. Consider peritoneal drain placement. Chest X-Ray 12/08/24 12:28 IMPRESSION: 1. Stable airspace opacities at the lung bases, consistent with atelectasis versus pneumonia. 2. Stable small pleural effusions. 3. Emphysema. Abdomen/Pelvis CT 12/10/24 15:20 IMPRESSION: 1. Percutaneous abscess drains within a subcapsular fluid collections at the spleen and liver, both of which approximately half the volume of the prior study. 2. Persistent anasarca with extensive soft tissue edema and 3. Decrease in size of small bilateral pleural effusions. 4. Tree-in-bud opacities in the bilateral lower lobes consistent with pneumonia. Moderate amount of ascites throughout the abdomen and pelvis. Labs Labs: Laboratory Results - last 24 hr 12/24/24 12/24/24 12/25/24 16:35 21:22 05:48 WBC 6.5 RBC 3.24 L Hgb 9.2 L Hct 28.8 L MCV 88.9 MCH 28.4 MCHC 31.9 L RDW 16.8 H Plt Count 495 H MPV 9.4 Sodium 138 Potassium 3.9 Chloride 105 Carbon Dioxide 24 Anion Gap 9 BUN 25 H Creatinine 0.85 Estim Creat Clear Calc 44 Estimated GFR > 60 Glucose 84 POC Capillary Glucose 111 H 126 H Calcium 8.0 L Total Bilirubin 0.4 AST 36 ALT 24 Alkaline Phosphatase 173 H Total Protein 6.0 L Albumin 2.7 L 12/25/24 12/25/24 12/25/24 07:25 11:24 11:24 WBC RBC Hgb Hct MCV MCH MCHC RDW Plt Count MPV Sodium Potassium Chloride Carbon Dioxide Anion Gap BUN Creatinine Estim Creat Clear Calc Estimated GFR Glucose POC Capillary Glucose 83 149 H 149 H Calcium Total Bilirubin AST ALT Alkaline Phosphatase Total Protein Albumin Quality VTE Prophylaxis VTE prophylaxis: mechanical ordered and pharmacologic ordered
[2024-12-25] MEDS: MIRTAZAPINE 15 MG TABLET PO (21:01)
[2024-12-25 21:16] VITALS: BP 117/72; PULSE 71; RESP 14; TEMP 36.9; O2SAT 98
[2024-12-25 21:16] LABS: Glucose Point of Care 120 mg/dl (65-105)
[2024-12-26 06:00] VITALS: BP 149/74; PULSE 67; RESP 17; TEMP 36.7; O2SAT 98
[2024-12-26 07:29] LABS: Basophils Percent Auto 0.3 % (0.2-1.2); Eosinophils Absolute Auto 0.1 K/mm3 (0-0.3); Eosinophils Percent Auto 1.5 % (0-4.4); Hematocrit 27.2 % (42.0-52.0); Hemoglobin 8.5 g/dL (14.0-18.0); Immature Granulocyte Absolute 0.05 K/mm3 (0.00-0.031); Immature Granulocyte Percent A 0.7 % (0-0.5); Lymphocytes Absolute Auto 2.25 K/mm3 (0.9-3.2); Lymphocytes Percent Auto 31.6 % (18.3-44.2); Mean Corpuscular HGB Conc 31.3 g/dl (32-36); Mean Corpuscular Hemoglobin 28.1 pg (26-34); Mean Corpuscular Volume 89.8 fl (80-100); Mean Platelet Volume 9.4 fl (7.4-10.4); Monocytes Absolute Auto 0.7 K/mm3 (0.1-0.6); Monocytes Percent Auto 9.3 % (2.6-8.5); Neutrophils Percent Auto 56.6 % (45.5-73.1); Platelet Count Result 432 k/mm3 (150-375); Red Blood Count 3.03 M/mm3 (4.6-6.20); Red Cell Distribution Width 16.8 % (11.5-14.5); White Blood Count 7.1 K/mm3 (4.5-10.0)
[2024-12-26 07:42] LABS: Alanine Aminotransferase 27 U/L (6-50); Albumin Level 2.7 g/dL (3.5-5.1); Alkaline Phosphatase 178 U/L (38-126); Anion Gap 7 mmol/L (4-12); Aspartate Amino Transferase 46 U/L (17-59); Bilirubin,Total 0.3 mg/dL (0.2-1.3); Blood Urea Nitrogen 25 mg/dL (9-20); Calcium 8.2 mg/dL (8.4-10.2); Carbon Dioxide 27 mmol/L (22-30); Chloride 106 mmol/L (98-107); Estimated CRCL calculation 43 ml/min; Estimated Glomerular Filt Rate > 60; Glucose 86 mg/dL (65-110); Magnesium 1.7 mg/dL (1.6-2.3); Potassium 3.4 mmol/L (3.4-5.0); Sodium 140 mmol/L (137-145)
[2024-12-26 07:46] LABS: Iron 24 ug/dL (49-181)
[2024-12-26 07:55] LABS: Percent Iron Saturation 15 % (20-50)
[2024-12-26 07:56] LABS: Glucose Point of Care 89 mg/dl (65-105)
[2024-12-26] MEDS: FOLIC ACID 1 MG TABLET PO (09:09)
[2024-12-26] MEDS: THIAMINE HCL 200 MG/2 ML VIAL 100 MG IV PUSH (09:09)
[2024-12-26] MEDS: PANTOPRAZOLE SODIUM IV 40 MG VIAL IV PUSH ×2 (09:09→21:05)
[2024-12-26] MEDS: ENOXAPARIN 40 MG/0.4 ML SYRINGE SUB-Q (09:10)
[2024-12-26] MEDS: POTASSIUM CHLORIDE 20 MEQ PACKET (FOR LIQUID) PO (09:10)
[2024-12-26] MEDS: PSYLLIUM POWDER PACKET 1 PACKET PO (09:11)
[2024-12-26 11:48] LABS: Glucose Point of Care 91 mg/dl (65-105)
--- NOTE | 2024-12-26 11:54 | PM.IMPN ---
Progress Note: A&P Assessment and Plan (1) Metabolic acidosis: Code(s): E87.20 - Acidosis, unspecified Status: Acute Assessment and Plan: resolved (2) DEBI (acute kidney injury): Code(s): N17.9 - Acute kidney failure, unspecified Status: Acute Assessment and Plan: Creatinine seems to have stabilized at 1.54 Nephrology following (3) Perforated gastric ulcer: Qualifiers: Gastric ulcer chronicity: acute Qualified Code(s): K25.1 - Acute gastric ulcer with perforation Code(s): K25.5 - Chronic or unspecified gastric ulcer with perforation Status: Acute Assessment and Plan: Resolved Continue with Protonix and monitor hgb (4) COPD (chronic obstructive pulmonary disease): Code(s): J44.9 - Chronic obstructive pulmonary disease, unspecified Status: Acute Assessment and Plan: Stable on current medications. Will continue current treatment. (5) Sepsis: Code(s): A41.9 - Sepsis, unspecified organism Status: Acute Assessment and Plan: Completed antibiotics (6) Pneumonia: Code(s): J18.9 - Pneumonia, unspecified organism Status: Acute Assessment and Plan: Completed antibiotics pneumonia resolved Repeat CXR showed pulm edema and Pleural effusion now on lasix (7) Acute hypoxic respiratory failure: Code(s): J96.01 - Acute respiratory failure with hypoxia Status: Acute Assessment and Plan: resolved CXR showed pulm edema and pleural effusion continue Lasix 20mg bid and monitor renal function ECHO from june normal function monitor (8) Sepsis associated hypotension: Code(s): A41.9 - Sepsis, unspecified organism; I95.9 - Hypotension, unspecified Status: Acute Assessment and Plan: completed antibiotics (9) EtOH dependence: Code(s): F10.20 - Alcohol dependence, uncomplicated Status: Acute Assessment and Plan: Counselling given (10) Failure to thrive: Status: Acute Plan Consulted Hospice Perforated Gastric ulcer Patient underwent surgery on 11/05. Patient condition has been declining after the perforated gastric ulcer. s/p perc drain due to spleen and liver abscess. Failure to thrive Patient has multiple co-morbid condition including COPD,alcohol abuse, perforated ulcer, liver abscess,and recent surgical stress. patient now having adequate oral intake s/p Dronabinol Discussed with his brother who is POA. Diarrhea Resolved Stool culture and C diff negative Likely from pureed diet started on PRN Imodium leukocytosis resolved, WBC 6.5 Surgery re-evaluated the re-demonstration of subcapsular fluid collections within both the liver and spleen for which abscess formation is suspected.. Underwent perc drain on 12/05 Repeat blood culture pending. CXR done several days ago showed pulm edema and patient has responded to lasix and off oxygen Lactic acid normal Repeated blood culture Subcapsular Spleen and Liver on percutaneous drainage repeat CT showed improving, half the prior volume. s/p Levaquin and Flagyl Gen surgery following Anemia Hb 9.2 s/p 1 unit pRBC B12/Folate wnl repeat Iron panel Liver and splenic abscess resolving repeat CT showed marked drainage Surgery removed drains completed Levaquin and Flagyl F/u with Gen surgery as instructed Code status DNR DVT prophylaxis on Sq Lovenox PT/OT following Awaiting placement Subjective Date/time seen: 12/26/24 11:54 Interval history: Patient continues to be more energetic today awaiting placement Review of Systems Review of Systems: Pt with a dry throat not talking loudly ROS unobtainable: Yes unobtainable due to endotracheal tube, unobtainable due to medical condition and unobtainable due to mental status Exam Narrative: General: alert and more energetic today Lungs/Chest: Trachea central Coarse BS B/L, No crackles or wheezing. Cardiac: RRR. Normal S1 S2. No murmurs Abdomen: Decreased but present bowel sounds. Extremities: No clubbing, cyanosis or edema. Warm : Shen in place Neurologic: Patient is able to move all 4 extremities spontaneously. Objective Data Vital Signs Vital Signs: Vital Signs - 24 hr 12/25/24 14:00 12/25/24 21:16 12/26/24 06:00 Temperature 97.1 F L 98.5 F 98.0 F Pulse Rate 66 71 67 Respiratory Rate 18 14 17 Blood Pressure 130/77 117/72 149/74 H Pulse Oximetry 93 98 98 Oxygen Delivery 12/26/24 08:00 Temperature Pulse Rate Respiratory Rate Blood Pressure Pulse Oximetry Oxygen Delivery Room Air Intake/Output Intake/Output: Intake & Output 12/23/24 12/24/24 12/25/24 12/26/24 23:59 23:59 23:59 23:59 Intake Total 720 720 940 400 Output Total 701 500 500 400 Balance 19 220 440 0 Meds/Results Medications: Active Medications Generic Name Dose Route Start Last Admin Trade Name Freq PRN Reason Stop Dose Admin Acetaminophen 325 mg 12/19/24 15:45 12/21/24 06:19 Acetaminophen 325 Mg Tablet PO 325 mg Q4H PRN Administration Mild Pain (1-3) or Fever Albuterol 2.5 mg 12/08/24 16:23 Albuterol Sulfate Neb 2.5 Mg/3 Ml Inh INHALATION Q12HR PRN Shortness Of Breath Amlodipine Besylate 10 mg 12/02/24 09:00 12/14/24 10:08 Amlodipine Besylate 10 Mg Tablet PO 10 mg DAILY SOURAV Administration Dextrose 12.5 gm 11/06/24 07:40 11/21/24 16:58 Dextrose 50% 25 Gm/50 Ml Syringe IV PUSH 12.5 gm PRN PRN Administration Hypoglycemia Protocol Enoxaparin Sodium 40 mg 12/19/24 09:00 12/26/24 09:10 Enoxaparin 40 Mg/0.4 Ml Syringe SUB-Q 40 mg DAILY SOURAV Administration Folic Acid 1 mg 12/20/24 09:00 12/26/24 09:09 Folic Acid 1 Mg Tablet PO 1 mg DAILY SOURAV Administration Glucagon 1 mg 11/06/24 07:40 Glucagon For Inj 1 Mg Vial IM PRN PRN Hypoglycemia Protocol Glucose 15 gm 11/06/24 07:40 Glucose Oral Gel 15 Gm Of Glucse In 37.5 Gm Tube PO PRN PRN Hypoglycemia Protocol Hydrochlorothiazide 25 mg 12/03/24 09:00 12/14/24 10:08 Hydrochlorothiazide 25 Mg Tablet PO 25 mg QAM SOURAV Administration Dextrose 1,000 mls @ 100 mls/hr 11/06/24 07:40 Dextrose 5% 1,000 Ml IVPB PRN PRN Hypoglycemia Protocol Loperamide HCl 2 mg 12/01/24 10:59 12/01/24 15:17 Loperamide Hcl 2 Mg Capsule PO 2 mg PRN PRN Administration Diarrhea Mirtazapine 15 mg 11/30/24 21:00 12/25/24 21:01 Mirtazapine 15 Mg Tablet PO 15 mg HS SOURAV Administration Naloxone HCl 0.1 mg 12/08/24 16:21 Naloxone Hcl 0.4 Mg/Ml Vial IV PUSH Q2M PRN Opiate Reversal Ondansetron HCl 4 mg 12/08/24 16:21 12/24/24 11:06 Ondansetron Inj 4 Mg/2 Ml Vial IV PUSH 4 mg Q4H PRN Administration Nausea And Vomiting Pantoprazole Sodium 40 mg 12/08/24 21:00 12/26/24 09:09 Pantoprazole Sodium Iv 40 Mg Vial IV PUSH 40 mg Q12HR SOURAV Administration Potassium Chloride 20 meq 12/06/24 09:00 12/26/24 09:10 Potassium Chloride 20 Meq Packet (For Liquid) PO 20 meq DAILY SOURAV Administration Psyllium Hydrophilic Mucilloid 1 packet 11/29/24 09:00 12/26/24 09:11 Psyllium Powder Packet PO 1 packet QAM SOURAV Administration Thiamine HCl 100 mg 12/08/24 09:00 12/26/24 09:09 Thiamine Hcl 200 Mg/2 Ml Vial IV PUSH 100 mg QAM SOURAV Administration Radiology Results: ITS Impressions Head CT 11/05/24 20:50 IMPRESSION: 1. Moderate nonspecific cerebral white matter disease, which likely represents chronic small vessel ischemic disease. 2. 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 Upper GI Series 11/08/24 12:17 IMPRESSION: 1. Slow gastric emptying likely related to postoperative ileus. No extraluminal leakage of contrast. Abdomen X-Ray 11/14/24 11:13 IMPRESSION: Nonspecific, nonobstructive bowel gas pattern. Supportive devices unchanged in position. Bilateral pleural effusions. If clinical suspicion persists, CT examination of the abdomen and pelvis (with intravenous contrast) is suggested for further evaluation. Renal Ultrasound 11/19/24 16:17 IMPRESSION: No hydronephrosis or renal calculi. Findings suggesting medical renal disease. Free fluid within the pelvis. Venous Doppler Study 11/22/24 10:28 IMPRESSION: 1. No deep venous thrombosis in either lower limb. Renal Scan Nuclear Medicine 11/23/24 14:21 IMPRESSION: 1. Symmetric kidney function. 2. Delayed activity clearance from both kidneys with continually rising activity curves extending over the 30 minutes of observation and without associated hydronephrosis consistent with nonspecific, nonobstructive nephropathy. Modified Barium Swallow 11/26/24 10:39 IMPRESSION: 1. Trace laryngeal penetration. 2. Please refer to the speech therapy report for recommendations. Chest/Abdomen/Pelvis CT 12/02/24 14:47 IMPRESSION: Redemonstration of subcapsular fluid collections within both the liver and spleen (as detailed above) for which abscess formation is suspected. Both collections are amenable to percutaneous drainage. Bilateral large pleural effusions, with adjacent consolidation, decreased from prior. Catheter Placement CT 12/05/24 15:17 IMPRESSION: 1. Successful CT-guided subcapsular liver abscess drainage. 2. 2 mL opaque, moore fluid was sent for aerobic and anaerobic cultures. 3. Moderate-sized pleural effusions. 4. Moderate volume of ascites. Consider peritoneal drain placement. Chest X-Ray 12/08/24 12:28 IMPRESSION: 1. Stable airspace opacities at the lung bases, consistent with atelectasis versus pneumonia. 2. Stable small pleural effusions. 3. Emphysema. Abdomen/Pelvis CT 12/10/24 15:20 IMPRESSION: 1. Percutaneous abscess drains within a subcapsular fluid collections at the spleen and liver, both of which approximately half the volume of the prior study. 2. Persistent anasarca with extensive soft tissue edema and 3. Decrease in size of small bilateral pleural effusions. 4. Tree-in-bud opacities in the bilateral lower lobes consistent with pneumonia. Moderate amount of ascites throughout the abdomen and pelvis. Labs Labs: Laboratory Results - last 24 hr 12/25/24 12/26/24 12/26/24 21:01 07:14 07:50 WBC 7.1 RBC 3.03 L Hgb 8.5 L Hct 27.2 L MCV 89.8 MCH 28.1 MCHC 31.3 L RDW 16.8 H Plt Count 432 H MPV 9.4 Immature Gran % (Auto) 0.7 H Neut % (Auto) 56.6 Lymph % (Auto) 31.6 [place] % (Auto) 9.3 H Eos % (Auto) 1.5 Baso % (Auto) 0.3 Lymph # (Auto) 2.25 [place] # (Auto) 0.7 H Eos # (Auto) 0.1 Baso # (Auto) 0.0 Abs Immat Gran (auto) 0.05 H Absolute Neuts (auto) 4.0 Absolute Nucleated RBC 0.000 Nucleated RBC % 0.0 Sodium 140 Potassium 3.4 Chloride 106 Carbon Dioxide 27 Anion Gap 7 BUN 25 H Creatinine 0.89 Estim Creat Clear Calc 43 Estimated GFR > 60 Glucose 86 POC Capillary Glucose 120 H 89 Calcium 8.2 L Magnesium 1.7 Iron 24 L TIBC 163 L % Saturation 15 L Ferritin 274.00 H Total Bilirubin 0.3 AST 46 ALT 27 Alkaline Phosphatase 178 H Total Protein 6.0 L Albumin 2.7 L 12/26/24 11:45 WBC RBC Hgb Hct MCV MCH MCHC RDW Plt Count MPV Immature Gran % (Auto) Neut % (Auto) Lymph % (Auto) [place] % (Auto) Eos % (Auto) Baso % (Auto) Lymph # (Auto) [place] # (Auto) Eos # (Auto) Baso # (Auto) Abs Immat Gran (auto) Absolute Neuts (auto) Absolute Nucleated RBC Nucleated RBC % Sodium Potassium Chloride Carbon Dioxide Anion Gap BUN Creatinine Estim Creat Clear Calc Estimated GFR Glucose POC Capillary Glucose 91 Calcium Magnesium Iron TIBC % Saturation Ferritin Total Bilirubin AST ALT Alkaline Phosphatase Total Protein Albumin Quality VTE Prophylaxis VTE prophylaxis: mechanical ordered and pharmacologic ordered
[2024-12-26 14:00] VITALS: BP 150/84; PULSE 63; RESP 18; TEMP 36.3; O2SAT 97
[2024-12-26 16:38] LABS: Glucose Point of Care 113 mg/dl (65-105)
[2024-12-26] MEDS: MIRTAZAPINE 15 MG TABLET PO (21:05)
[2024-12-26 21:08] LABS: Glucose Point of Care 98 mg/dl (65-105)
[2024-12-26 22:00] VITALS: BP 151/80; PULSE 60; RESP 14; TEMP 36.7; O2SAT 98
[2024-12-27 05:46] VITALS: BP 142/76; PULSE 68; RESP 12; TEMP 37.1; O2SAT 97
[2024-12-27 08:34] LABS: Glucose Point of Care 86 mg/dl (65-105)
[2024-12-27] MEDS: PANTOPRAZOLE SODIUM IV 40 MG VIAL IV PUSH (09:31)
[2024-12-27] MEDS: POTASSIUM CHLORIDE 20 MEQ PACKET (FOR LIQUID) PO (09:32)
[2024-12-27] MEDS: FOLIC ACID 1 MG TABLET PO (09:32)
[2024-12-27] MEDS: PSYLLIUM POWDER PACKET 1 PACKET PO (09:32)
[2024-12-27] MEDS: THIAMINE HCL 200 MG/2 ML VIAL 100 MG IV PUSH (09:32)
[2024-12-27] MEDS: ENOXAPARIN 40 MG/0.4 ML SYRINGE SUB-Q (09:33)
--- NOTE | 2024-12-27 09:45 | P.DS_ITS ---
DS: Admitting Diagnosis Discharge Date 12/27/24 Admitting Diagnosis perforated viscus DS: Discharge Diagnosis Discharge Diagnosis (1) Perforated gastric ulcer: Qualifiers: Gastric ulcer chronicity: acute Qualified Code(s): K25.1 - Acute gastric ulcer with perforation Code(s): K25.5 - Chronic or unspecified gastric ulcer with perforation Status: Acute (2) DEBI (acute kidney injury): Code(s): N17.9 - Acute kidney failure, unspecified Status: Acute (3) Sepsis: Code(s): A41.9 - Sepsis, unspecified organism Status: Acute (4) Acute hypoxic respiratory failure: Code(s): J96.01 - Acute respiratory failure with hypoxia Status: Acute (5) Pneumonia: Code(s): J18.9 - Pneumonia, unspecified organism Status: Acute (6) COPD (chronic obstructive pulmonary disease): Code(s): J44.9 - Chronic obstructive pulmonary disease, unspecified Status: Acute DS: Summary Hospital Course Hospital Course: This is a 69-year-old male with past medical history significant for COPD/emphysema, tobacco dependence, alcohol dependence. Patient presented to the emergency room due to abdominal pain preliminary workup was essentially nonrevealing patient placed in observation discharge home today while on his way home patient became unresponsive patient intubated in the field and brought to the emergency room. Preliminary workup was significant for CT of abdomen and pelvis with perforated viscus. CT AP and Chest report 1. Free intraperitoneal gas, consistent with perforated viscus. I called this result to Dr. Woods. 2. Large volume of ascites. 3. Right lower lobe pneumonia. 4. Small pleural effusions. 5. Small pericardial effusion. 6. Nasogastric tube tip at the gastroesophageal junction. Patient underwent exploratory laparotomy, extensive lysis of adhesions, intra- abdominal washout, repair of perforated gastric ulcer with omental patch. Patient was continued on Protonix 40mg bid then discharged on 40mg daily. CT AP obtained on 12/02/24 showed splenic and liver abscess surgery placed drain and was later removed and patient on treated with additional 14 days of LEvaquin and Flagyl. GEn surgery will follow up with patient in 2 weeks. was initially admitted to ICU and intubated, placed on antibiotics, and later extubated. patient had a protracted stay and was treated for FTT but he is eating adequately but he is now active and participating with PT/OT. he was also managed for pneumonia and completed antibiotics. Anemia, had 1 unit pRBC today Isat is 15 and patient was given 200mg IV iron sucrose. and discharged on 2 months worth of po iron and Multivitamins. DEBI resolved with diuresis and patient is currently on HCTZ. Also managed for hypertension, he was given Amlodipine 10mg, HCTZ 25mg and Lisinopril 2.5mg. Topical management Assessment and Plan (1) Metabolic acidosis: Code(s): E87.20 - Acidosis, unspecified Status: Acute Assessment and Plan: resolved (2) DEBI (acute kidney injury): Code(s): N17.9 - Acute kidney failure, unspecified Status: Acute Assessment and Plan: Creatinine seems to have stabilized at 1.54 Nephrology following (3) Perforated gastric ulcer: Qualifiers: Gastric ulcer chronicity: acute Qualified Code(s): K25.1 - Acute gastri c ulcer with perforation Code(s): K25.5 - Chronic or unspecified gastric ulcer with perforation Status: Acute Assessment and Plan: Resolved Continue with Protonix and monitor hgb (4) COPD (chronic obstructive pulmonary disease): Code(s): J44.9 - Chronic obstructive pulmonary disease, unspecified Status: Acute Assessment and Plan: Stable on current medications. Will continue current treatment. (5) Sepsis: Code(s): A41.9 - Sepsis, unspecified organism Status: Acute Assessment and Plan: Completed antibiotics (6) Pneumonia: Code(s): J18.9 - Pneumonia, unspecified organism Status: Acute Assessment and Plan: Completed antibiotics pneumonia resolved Repeat CXR showed pulm edema and Pleural effusion now on lasix (7) Acute hypoxic respiratory failure: Code(s): J96.01 - Acute respiratory failure with hypoxia Status: Acute Assessment and Plan: resolved CXR showed pulm edema and pleural effusion continue Lasix 20mg bid and monitor renal function ECHO from june normal function Discharged on HCTZ. (8) Sepsis associated hypotension: Code(s): A41.9 - Sepsis, unspecified organism; I95.9 - Hypotension, unspecified Status: Acute Assessment and Plan: completed antibiotics (9) EtOH dependence: Code(s): F10.20 - Alcohol dependence, uncomplicated Status: Acute Assessment and Plan: Counselling given (10) Failure to thrive: Status: Acute Plan Consulted Hospice Perforated Gastric ulcer Patient underwent surgery on 11/05. Patient condition has been declining after the perforated gastric ulcer. s/p perc drain due to spleen and liver abscess. Failure to thrive Patient has multiple co-morbid condition including COPD,alcohol abuse, perforated ulcer, liver abscess,and recent surgical stress. patient now having adequate oral intake s/p Dronabinol Discussed with his brother who is POA. Diarrhea Resolved Stool culture and C diff negative Likely from pureed diet started on PRN Imodium leukocytosis resolved, WBC 6.5 Surgery re-evaluated the re-demonstration of subcapsular fluid collections within both the liver and spleen for which abscess formation is suspected.. Underwent perc drain on 12/05 Repeat blood culture pending. CXR done several days ago showed pulm edema and patient has responded to lasix and off oxygen Lactic acid normal Repeated blood culture Subcapsular Spleen and Liver on percutaneous drainage repeat CT showed improving, half the prior volume. s/p Levaquin and Flagyl Gen surgery following Anemia Hb 9.2 s/p 1 unit pRBC B12/Folate wnl repeat Iron panel Liver and splenic abscess resolving repeat CT showed marked drainage Surgery removed drains completed Levaquin and Flagyl F/u with Gen surgery as instructed F/u with PCP in 3-5 days F/u with gen surgery in 2 weeks as instructed. Time Spent with Patient Time attestation: Total time spent providing and/or coordinating discharge services: DS: Data Data Completed and Pending Labs on day of discharge: Labs from last 24 hours 12/27/24 12/26/24 12/26/24 08:16 20:35 16:35 POC Capillary Glucose 86 98 113 H 12/26/24 11:45 POC Capillary Glucose 91 Discharge Plan Discharge Attending physician on discharge: Kim Healy Consulting providers: Eveline Rodriguez; Hernesto Modi; Clifton Grant; Rupert Byrnes Discharging Clinician: Kim Healy Anticipated Discharge Date/Time: 12/27/24 09:33 Patient Disposition: SNF Activity: may shower Diet: regular Wound Care Instructions: incision open to air Discharge Instructions: * Follow-up with Dr. Rodriguez in 2 weeks. Call to schedule an appointment. * Incision open to air. May wash over incision daily with soap and water. * No lifting more than 15 lbs until for another 2-4 weeks. You will be directed on further lifting restrictions at your follow-up appointment. Patient Instructions: Pain Management (DC) Patient Language: Indonesian Stand Alone Forms: General Discharge Information Follow-up/Referrals: Eveline Rodriguez MD [Physician] - 2 Weeks UNKNOWN,DOCTOR [Primary Care Provider] - Discharge Medications: New amlodipine 10 mg Tablet 10 mg PO DAILY 30 Days Qty: 30 1RF ferrous sulfate 324 mg (65 mg iron) tablet,delayed release (DR/EC) 324 mg PO DAILY 30 Days Qty: 30 1RF lisinopril 2.5 mg tablet 2.5 mg PO DAILY 30 Days Qty: 30 0RF hydrochlorothiazide 25 mg Tablet 25 mg PO QAM 30 Days Qty: 30 1RF pantoprazole [Protonix] 40 mg tablet,delayed release (DR/EC) 40 mg PO HS 28 Days Qty: 28 0RF multivitamin Tablet 1 tablet PO DAILY 30 Days Qty: 30 0RF Spiriva Respimat 2.5 mcg/actuation mist 2 puff inhalation DAILY 30 Days Qty: 4 3RF No Action No Home Medications Date of admission: 11/06/24 00:01 Primary Care Provider: UNKNOWN,DOCTOR Admitting Provider: Robert Krueger V. Attending physician on admission: Robert Krueger V. Condition: Stable
[2024-12-27] MEDS: IRON SUCROSE COMPLEX 200 MG in SODIUM CHLORIDE 0.9% IV 100 ML 220 MG IVPB (10:17)
[2024-12-27 10:39] LABS: SARS-CoV-2 RNA PCR Negative (Negative)
== END 2024-12-27 11:28 | DRG 853 ==
LOC: ANHED 22:14 → ANHSURGERY 22:25 → ANHICU 11-06 00:04 → ANHIMU 11-11 01:48 → ANH3MEDSUR 11-15 15:00 → ANHIMU 12-28 08:20
PROVIDERS: Family Medicine; General Practice; Internal Medicine; Internal Medicine Nephrology; Nurse Practitioner Family; Surgery; Admitting Provider Internal Medicine; Emergency Provider Emergency Medicine; Visit Provider Internal Medicine
PROC: 0DNW0ZZ Release Peritoneum, Open Approach (ICD-10-PCS; CPT 49000; principal; 2024-11-05 22:30)
DX: A41.9 Sepsis, unspecified organism (principal); E43 Unspecified severe protein-calorie malnutrition; J69.0 Pneumonitis due to inhalation of food and vomit; J96.01 Acute respiratory failure with hypoxia; K25.5 Chronic or unspecified gastric ulcer with perforation; K65.8 Other peritonitis; K75.0 Abscess of liver; N17.9 Acute kidney failure, unspecified; T81.43XA Infection following a procedure, organ and space surgical site, initial encounter; Z68.1 Body mass index [BMI] 19.9 or less, adult; E87.20 Acidosis, unspecified; J90 Pleural effusion, not elsewhere classified; R65.20 Severe sepsis without septic shock; D73.3 Abscess of spleen; K66.0 Peritoneal adhesions (postprocedural) (postinfection); F10.20 Alcohol dependence, uncomplicated; F17.210 Nicotine dependence, cigarettes, uncomplicated; J44.9 Chronic obstructive pulmonary disease, unspecified; J43.9 Emphysema, unspecified; E87.6 Hypokalemia; I10 Essential (primary) hypertension; R62.7 Adult failure to thrive; Z66 Do not resuscitate; D64.9 Anemia, unspecified
CPT/HCPCS: 36415; 36430; 36556; 36600; 70450; 71045; 71250; 74018; 74176; 74240; 75989; 76775; 78707; 80048; 80053; 80069; 80202; 80307; 81001; 81003; 81050; 82077; 82375; 82550; 82565; 82570; 82607; 82728; 82746; 82805; 82948; 83050; 83540; 83550; 83605; 83690; 83735; 84100; 84132; 84145; 84156; 84300; 84484; 84540; 85018; 85025; 85027; 85610; 85730; 85999; 86850; 86900; 86901; 86923; 87040; 87045; 87070; 87075; 87086; 87205; 87427; 87449; 87493; 87635; 87637; 87641; 92526; 92610; 92611; 93005; 93970; 94002; 94003; 94640; 94667; 94668; 96361; 96365; 96366; 96367; 96375; 97110; 97116; 97161; 97163; 97165; 97168; 97530; 97535; 99285; A9270; A9562; C1729; C1751; C1769; J0360; J0613; J1171; J1650; J1815; J1939; J1940; J2185; J2248; J2250; J2270; J2405; J2470; J2543; J3010; J3370; J3411; J3475; J3480; J7030; J7040; J7050; J7070; J7120; P9016; P9047